=== PATIENT | male | born 1965 | race Caucasian/White ===

== ENCOUNTER 2022-06-26 09:45 | Emergency (ER) | payer OTHER ==
[2022-06-26] MEDS ORDERED: NA CHLORIDE 0.9% 250 ML ONE (10:23)
[2022-06-26] MEDS ORDERED: PANTOPRAZOLE 40 MG INJ ONE ×2 (10:23→10:25)
[2022-06-26] MEDS ORDERED: NA CHLORIDE 0.9% 500 ML ONE (10:24)
[2022-06-26] MEDS ORDERED: OCTREOTIDE ACETATE 500 MCG/ML ONE (10:24)
[2022-06-26] MEDS ORDERED: OCTREOTIDE ACETATE 100 MCG/ML ONE (10:24)
--- NOTE | 2022-06-26 10:46 | RAD REPORT ---
EXAM DESCRIPTION: US - Abdomen Exam Limited - 06/26/2022 10:41 am CLINICAL HISTORY: Abd pain COMPARISON: No comparisons FINDINGS: No gallstones, sludge or other abnormalities within the gallbladder lumen. There is no wal l thickening or pericholecystic fluid. No common duct stone or biliary tree dilatation identified. IMPRESSION: Normal gallbladder and biliary tree ultrasound.
[2022-06-26] MEDS ORDERED: NA CHLORIDE 0.9% 1,000 ML ONE (10:50)
[2022-06-26] MEDS ORDERED: ONDANSETRON 4 MG/2 ML VIAL ONE ×2 (10:50→15:14)
[2022-06-26 10:52] LABS: Absolute Lymphocytes (CBC) 1.8 K/uL (0.7-4.9); Hematocrit 30.8 % (39.6-49.0); Lymphocytes % 16.2 % (15.3-44.8); MCV 87.2 fL (80-100); MPV 8.4 fL (7.6-11.3); RBC Red Blood Cell Count 3.53 M/uL (4.33-5.43)
[2022-06-26 10:53] LABS: Protime INR 1.44
[2022-06-26 11:09] LABS: Albumin 2.7 g/dL (3.4-5.0); Bilirubin Total 1.9 mg/dL (0.2-1.0); Potassium 3.4 mmol/L (3.5-5.1); Protein, Total 6.4 g/dL (6.4-8.2)
--- NOTE | 2022-06-26 11:09 | ER ---
Nurse's Notes [facility] Name: Eitan Gonzalez Age: 57 yrs Sex: Male : 1965 Arrival Date: 06/26/2022 Time: 09:51 Bed 20 Private MD: Diagnosis: Hematemesis;Unspecified cirrhosis of liver;GI Bleed/ Gastrointestinal hemorrhage, unspecified Presentation: 06/26 10:05 Chief complaint: EMS states: toned out to PT home for ABD pain and Vomiting. reported tp1 PT has had N/V/D for the past 4 days. Reported PT was pale, diaphoretic, lightheaded and dizzy. During transport PT vomited blood. inserted 18 G R AC, administered 4 mg Zofran. BS 246. 10:05 Coronavirus screen: Vaccine status: Patient reports being unvaccinated. Ebola Screen: tp1 Patient negative for fever greater than or equal to 101.5 degrees Fahrenheit, and additional compatible Ebola Virus Disease symptoms Patient denies exposure to infectious person. Patient denies travel to an Ebola-affected area in the 21 days before illness onset. Initial Sepsis Screen: Does the patient meet any 2 criteria? HR > 90 bpm. No. Patient's initial sepsis screen is negative. Does the patient have a suspected source of infection? No. Patient's initial sepsis screen is negative. Risk Assessment: Do you want to hurt yourself or someone else? Patient reports no desire to harm self or others. Onset of symptoms was June 22, 2022. 10:05 Method Of Ar[facility]: [facility] tp1 10:05 Acuity: NALINI 3 tp1 Triage Assessment: 10:05 General: Appears in no apparent distress. uncomfortable, Behavior is cooperative, tp1 anxious. Pain: Complains of pain in right upper quadrant and left upper quadrant Pain does not radiate. Pain currently is 10 out of 10 on a pain scale. Quality of pain is described as dull, Pain began 2-3 days ago. Is continuous. EENT: No signs and/or symptoms were reported regarding the EENT system. Neuro: Level of Consciousness is awake, alert, obeys commands, Oriented to person, place, time, situation. Cardiovascular: Reports diaphoresis, lightheadedness, Capillary refill < 3 seconds in bilateral fingers. Respiratory: Airway is patent Respiratory effort is even, unlabored. GI: Abdomen is round non-distended, Abd is soft X 4 quads Abdomen is tender to palpation in right upper quadrant and left upper quadrant Reports diarrhea, nausea, vomiting, black stool. : No signs and/or symptoms were reported regarding the genitourinary system. Derm: Skin is clammy, diaphoretic, Skin is pale, Skin temperature is cool. Musculoskeletal: Circulation, motion, and sensation intact. Historical: - Allergies: 10:54 Trulicity; tp1 - Home Meds: 10:54 telmisartan-hydrochlorothiazide oral [Active]; omeprazole Oral [Active]; Metformin Oral tp1 [Active]; gabapentin oral [Active]; rosuvastatin oral [Active]; - PMHx: 10:54 Alcoholism; Cirrhosis of liver; enlarged spleen; Hypertensive disorder; Diabetes tp1 mellitus; - Immunization history:: Client reports having NOT received the Covid vaccine. - Social history:: Smoking status: Patient denies any tobacco usage or history of. - Family history:: not pertinent. - Hospitalizations: : No recent hospitalization is reported. Screenin:05 Abuse screen: Denies threats or abuse. Denies injuries from another. Nutritional tp1 screening: No deficits noted. Tuberculosis screening: No symptoms or risk factors identified. Fall Risk No fall in past 12 months (0 pts). No secondary diagnosis (0 pts). IV access (20 points). Ambulatory Aid- None/Bed Rest/Nurse Assist (0 pts). Gait- Normal/Bed Rest/Wheelchair (0 pts) Mental Status- Oriented to own ability (0 pts). Total Coffey Fall Scale indicates No Risk (0-24 pts). Assessment: 10:05 General: see triage notes. tp1 10:20 Reassessment: Had small black BM, provider notified. tp1 10:30 Reassessment: received VO from Dr. Murray to administer octerotide 50 mcg IVP X1. tp1 11:00 Reassessment: Patient appears in no apparent distress at this time. No changes from tp1 previously documented assessment. rates ABD pain 5/10. 12:00 Reassessment: Patient appears in no apparent distress at this time. No changes from tp1 previously documented assessment. Patient is alert, oriented x 3, equal unlabored respirations, skin warm/dry/pink. CO nausea and ABD pain rated 7/10. provider notified. 12:25 Reassessment: received VO from Dr. Murray for Phenergan 12.5 mg IVP X1. tp1 12:26 Reassessment: repositioned PT. tp1 12:56 Reassessment: Patient appears in no apparent distress at this time. Patient is alert, tp1 oriented x 3, equal unlabored respirations, skin warm/dry/pink. CO headache 7/10, lights dimmed, provider notified. 14:16 Reassessment: Patient appears in no apparent distress at this time. No changes from tp1 previously documented assessment. Patient is alert, oriented x 3, equal unlabored respirations, skin warm/dry/pink. states nausea is better, ABD pain 5/10. 14:55 Reassessment: attempted to give report to Chase ARCHER at [facility], stated will tp1 call back to get report. 14:57 Reassessment: Patient appears in no apparent distress at this time. Patient is alert, tp1 oriented x 3, equal unlabored respirations, skin warm/dry/pink. Stated ABD pain and nausea is coming back. 15:00 Reassessment: received VO from Dr. Murray for morphine 4 mg IVP X1 and zofran 4mg IVP X1.tp1 15:46 Reassessment: attempted to call report. tp1 16:01 Reassessment: report given to Tre ARCHER. tp1 16:04 Reassessment: Patient appears in no apparent distress at this time. Patient is alert, tp1 oriented x 3, equal unlabored respirations, skin warm/dry/pink. states nausea and ABD pain when away but is now coming back. provider notified. Vital Signs: 10:05 BP 98 / 87; Pulse 97; Resp 14; Temp 98.8; Pulse Ox 100% on R/A; Weight 113.4 kg; Height tp1 72 in. (182.88 cm); 11:30 BP 106 / 52; Pulse 92; Resp 15; Pulse Ox 100% on R/A; tp1 12:00 BP 135 / 80; Pulse 88; Resp 15; Pulse Ox 100% on R/A; tp1 12:30 BP 138 / 73; Pulse 91; Resp 16; Pulse Ox 100% on R/A; tp1 13:00 BP 149 / 90; Pulse 94; Resp 15; Pulse Ox 96% on R/A; tp1 14:00 BP 122 / 83; Pulse 102; Resp 16; Pulse Ox 100% on R/A; tp1 15:00 BP 133 / 76; Pulse 99; Resp 16; Pulse Ox 100% on R/A; tp1 16:30 BP 133 / 88; Pulse 95; Resp 16; Pulse Ox 100% on R/A; tp1 10:05 Body Mass Index 33.91 (113.40 kg, 182.88 cm) tp1 ED Course: 09:51 Patient arrived in ED. em1 09:51 Sabino Murray MD is Attending Physician. rn 10:00 Lynn Mcleod RN is Primary Nurse. tp1 10:05 Maintain EMS IV. Dressing intact. Good blood return noted. Site clean \T\ dry. Gauge \T\ tp 1 site: 18 R AC. 10:05 Arm band placed on. tp1 10:05 Patient has correct armband on for positive identification. Placed in gown. Bed in low tp1 position. Call light in reach. Side rails up X 1. Adult w/ patient. 10:05 Client placed on continuous cardiac and pulse oximetry monitoring. NIBP monitoring tp1 applied. 10:45 Inserted saline lock: 20 gauge in left wrist, using aseptic technique. ,using aseptic tp1 technique. inserted by Neena ARCHER. 11:08 Tao Woods is Hospitalizing Provider. rn 11:45 Lewis Figueroa MD is Hospitalizing Provider. rn 12:17 Triage completed. tp1 14:45 No provider procedures requiring assistance completed. tp1 16:37 Patient transferred, IV remains in place. tp1 Administered Medications: 10:36 Drug: ProTONIX (pantoprazole) 40 mg Route: IVP; Site: right antecubital; tp1 14:44 Follow up: Response: Pain is decreased tp1 10:36 Drug: Octreotide 50 mcg Route: IV; Rate: per protocol; Site: right antecubital; tp1 11:15 Follow up: Response: No adverse reaction tp1 14:44 Follow up: Response: No adverse reaction tp1 16:38 Follow up: IV Status: Infusion continued upon transfer tp1 10:38 Drug: ProTONIX (pantoprazole) 8 mg/hr Route: IV; Rate: 25 ml/hr; Site: right tp1 antecubital; 16:38 Follow up: IV Status: Infusion continued upon transfer tp1 10:38 Drug: Octreotide Infusion (50 mcg/hr) - (Octreotide 500 mcg, NS 0.9% 500 ml) Route: IV; tp1 Rate: 50 ml/hr; Site: right antecubital; 16:39 Follow up: IV Status: Infusion continued upon transfer tp1 10:46 Drug: NS 0.9% 1000 ml Route: IV; Rate: 1 bolus; Site: left wrist; tp1 12:27 Follow up: IV Status: Completed infusion; IV Intake: 1000ml tp1 10:46 Drug: Zofran (Ondansetron) 4 mg Route: IVP; Site: left wrist; tp1 11:15 Follow up: Response: No change in condition tp1 11:30 Not Given (VO changed from physiciann): Octreotide 50 mcg Sub-Q once tp1 12:56 Drug: Phenergan (promethazine) 12.5 mg Route: IVP; Site: left wrist; tp1 14:43 Follow up: Response: Nausea is decreased tp1 15:06 Drug: Zofran (Ondansetron) 4 mg Route: IVP; Site: left wrist; tp1 15:40 Follow up: Response: Nausea is decreased tp1 15:09 Drug: morphine 4 mg Route: IVP; Infused Over: 4 mins; Site: left wrist; tp1 15:40 Follow up: Response: Pain is decreased tp1 Medication: 14:45 VIS not applicable for this client. tp1 Intake: 12:27 IV: 1000ml; Total: 1000ml. tp1 Outcome: 11:08 Decision to Hospitalize by Provider. rn 13:13 ER care complete, transfer ordered by . rn 16:36 Transferred by ground EMS to [facility]. tp1 16:36 Condition: good 16:36 Discharge instructions given to patient, Instructed on the need for transfer, Demonstrated understanding of instructions. 16:38 Patient left the ED. tp1 Signatures: Sabino Murray MD MD rn Martinez, Eric 1 Lynn Mcleod RN RN tp1 Corrections: (The following items were deleted from the chart) 12:24 11:00 Reassessment: Patient appears in no apparent distress at this time. No changes tp1 from previously documented assessment. Patient is alert, oriented x 3, equal unlabored respirations, skin warm/dry/pink. rates ABD pain 02/27 tp1 13:29 12:56 Reassessment: CO headache 04/29, lights dimmed, provider notified. tp1 tp1
--- NOTE | 2022-06-26 11:10 | EDPHYS ---
Physician Documentation [facility] Name: Eitan Gonzalez Age: 57 yrs Sex: Male : 1965 Arrival Date: 06/26/2022 Time: 09:51 Bed 20 Private MD: ED Physician Sabino Murray HPI: 06/26 10:39 This 57 yrs old Male presents to ER via Unassigned with complaints of abdominal pain, rn hematemesis. 10:39 The patient presents to the emergency department vomiting blood, a small amount, bright rn red, 2 times since symptom onset. Onset: The symptoms/episode began/occurred 2 day(s) ago. Abdominal pain: located in the epigastric area. Modifying factors: The symptoms are alleviated by nothing, the symptoms are aggravated by nothing. Severity of symptoms: At their worst the symptoms were moderate in the emergency department the symptoms are unchanged. The patient has experienced a previous episode. The patient has not recently seen a physician. Pt reports upper abd pain, threw up blood twice today, began 2 days ago. Seen at [facility] a month ago and told had "pancreas inflammation and gallstones". Reports felt better, but now came back. + previous daily drinker. Told has cirrhosis in past. . Historical: - Allergies: 10:54 Trulicity; tp1 - Home Meds: 10:54 telmisartan-hydrochlorothiazide oral [Active]; omeprazole Oral [Active]; Metformin Oral tp1 [Active]; gabapentin oral [Active]; rosuvastatin oral [Active]; - PMHx: 10:54 Alcoholism; Cirrhosis of liver; enlarged spleen; Hypertensive disorder; Diabetes tp1 mellitus; - Immunization history:: Client reports having NOT received the Covid vaccine. - Social history:: Smoking status: Patient denies any tobacco usage or history of. - Family history:: not pertinent. - Hospitalizations: : No recent hospitalization is reported. ROS: 10:39 Constitutional: Negative for fever, chills, and weight loss, Eyes: Negative for injury, rn pain, redness, and discharge, Neck: Negative for injury, pain, and swelling, Cardiovascular: Negative for chest pain, palpitations, and edema, Respiratory: Negative for shortness of breath, cough, wheezing, and pleuritic chest pain, Abdomen/GI: + upper abd pain and hematemesis Back: Negative for injury and pain, MS/Extremity: Negative for injury and deformity, Skin: Negative for injury, rash, and discoloration, Neuro: Negative for headache, numbness, tingling, and seizure. Exam: 10:39 Constitutional: This is a well developed, well nourished patient who is awake, alert, rn appears uncomfortable Head/Face: Normocephalic, atraumatic. ENT: dry MM, dry blood at mustache Cardiovascular: Tachycardic, regular Respiratory: No increased work of breathing, no retractions or nasal flaring. Abdomen/GI: soft, + epigastric tenderness, no rebound Skin: Warm, dry MS/ Extremity: Pulses equal, no cyanosis. Neuro: Awake and alert, GCS 15 Vital Signs: 10:05 BP 98 / 87; Pulse 97; Resp 14; Temp 98.8; Pulse Ox 100% on R/A; Weight 113.4 kg; Height tp1 72 in. (182.88 cm); 11:30 BP 106 / 52; Pulse 92; Resp 15; Pulse Ox 100% on R/A; tp1 12:00 BP 135 / 80; Pulse 88; Resp 15; Pulse Ox 100% on R/A; tp1 12:30 BP 138 / 73; Pulse 91; Resp 16; Pulse Ox 100% on R/A; tp1 13:00 BP 149 / 90; Pulse 94; Resp 15; Pulse Ox 96% on R/A; tp1 14:00 BP 122 / 83; Pulse 102; Resp 16; Pulse Ox 100% on R/A; tp1 15:00 BP 133 / 76; Pulse 99; Resp 16; Pulse Ox 100% on R/A; tp1 16:30 BP 133 / 88; Pulse 95; Resp 16; Pulse Ox 100% on R/A; tp1 10:05 Body Mass Index 33.91 (113.40 kg, 182.88 cm) tp1 MDM: 09:51 Patient medically screened. rn 11:07 Differential diagnosis: gastritis, varices, gastric ulcer. Data reviewed: vital signs, rn nurses notes, lab test result(s), radiologic studies, ultrasound, and as a result, I will admit patient. Counseling: I had a detailed discussion with the patient and/or guardian regarding: the historical points, exam findings, and any diagnostic results supporting the discharge/admit diagnosis, lab results, radiology results, the need for further work-up and treatment in the hospital. Response to treatment: the patient's symptoms have mildly improved after treatment, and as a result, I will admit patient. Admission orders: after a detailed discussion of the patient's condition and case, the admit orders are written by me. 13:11 ED course: COnsulted with Dr. Muñoz, requests transfer for acute variceal bleeding. rn Initiated transfer. . 14:20 ED course: Consulted with GI at [facility], would like to upgrade to ICU level care. rn Also ask for repeat hemoglobin. . 06/26 09:52 Order name: CBC with Diff; Complete Time: 11:07 rn 06/26 09:52 Order name: CMP; Complete Time: 13:08 rn 06/26 09:52 Order name: Lipase; Complete Time: 13:08 rn 06/26 09:52 Order name: PT-INR; Complete Time: 11:07 rn 06/26 09:52 Order name: Type And Screen; Complete Time: 13:08 rn 06/26 09:52 Order name: SARS RAPID; Complete Time: 13:08 rn 06/26 09:52 Order name: Abdomen Limited US rn 06/26 09:52 Order name: CT Abd/Pelvis - IV Contrast Only rn 06/26 09:53 Order name: Troponin High Sensitivity; Complete Time: 13:08 rn 06/26 11:43 Order name: ABO/RH no charge; Complete Time: 13:08 EDTN 06/26 14:27 Order name: SARS-COV-2 RT PCR (Document "Date of Onset" if Symptomatic) 06/26 14:58 Order name: Hemoglobin; Complete Time: 15:22 EDTN 06/26 15:37 Order name: SARS-COV-2 RT PCR EDTN 06/26 09:52 Order name: IV Saline Lock; Complete Time: 11:28 rn 06/26 09:52 Order name: Labs collected and sent; Complete Time: 11:28 rn 06/26 09:53 Order name: EKG - Nurse/Tech; Complete Time: 11:49 rn 06/26 09:53 Order name: EKG; Complete Time: 09:54 rn 06/26 10:46 Order name: US; Complete Time: 11:07 EDTN 06/26 12:01 Order name: CT; Complete Time: 13:08 EDMS 06/26 09:53 Order name: Cardiac monitoring; Complete Time: 11:28 rn 06/26 09:53 Order name: O2 Sat Monitoring; Complete Time: 11:28 rn Administered Medications: 10:36 Drug: ProTONIX (pantoprazole) 40 mg Route: IVP; Site: right antecubital; tp1 14:44 Follow up: Response: Pain is decreased tp1 10:36 Drug: Octreotide 50 mcg Route: IV; Rate: per protocol; Site: right antecubital; tp1 11:15 Follow up: Response: No adverse reaction tp1 14:44 Follow up: Response: No adverse reaction tp1 16:38 Follow up: IV Status: Infusion continued upon transfer tp1 10:38 Drug: ProTONIX (pantoprazole) 8 mg/hr Route: IV; Rate: 25 ml/hr; Site: right tp1 antecubital; 16:38 Follow up: IV Status: Infusion continued upon transfer tp1 10:38 Drug: Octreotide Infusion (50 mcg/hr) - (Octreotide 500 mcg, NS 0.9% 500 ml) Route: IV; tp1 Rate: 50 ml/hr; Site: right antecubital; 16:39 Follow up: IV Status: Infusion continued upon transfer tp1 10:46 Drug: NS 0.9% 1000 ml Route: IV; Rate: 1 bolus; Site: left wrist; tp1 12:27 Follow up: IV Status: Completed infusion; IV Intake: 1000ml tp1 10:46 Drug: Zofran (Ondansetron) 4 mg Route: IVP; Site: left wrist; tp1 11:15 Follow up: Response: No change in condition tp1 11:30 Not Given (VO changed from physiciann): Octreotide 50 mcg Sub-Q once tp1 12:56 Drug: Phenergan (promethazine) 12.5 mg Route: IVP; Site: left wrist; tp1 14:43 Follow up: Response: Nausea is decreased tp1 15:06 Drug: Zofran (Ondansetron) 4 mg Route: IVP; Site: left wrist; tp1 15:40 Follow up: Response: Nausea is decreased tp1 15:09 Drug: morphine 4 mg Route: IVP; Infused Over: 4 mins; Site: left wrist; tp1 15:40 Follow up: Response: Pain is decreased tp1 Disposition Summary: 06/26/22 13:13 Transfer Ordered Transfer Location: [facility] rn Reason: Higher level of care rn Condition: Stable(06/26/22 13:13) rn Problem: new(06/26/22 13:13) rn Symptoms: have improved(06/26/22 13:13) rn Accepting Physician: (06/26/22 16:38) tp1 Diagnosis - Hematemesis(06/26/22 13:13) rn - Unspecified cirrhosis of liver(06/26/22 13:13) rn - GI Bleed/ Gastrointestinal hemorrhage, unspecified rn Forms: - Medication Reconciliation Form rn - SBAR form rn Signatures: Dispatcher [employer] EDMS Sabino Murray MD MD rn Parker, Tiffany, RN RN tp1 Corrections: (The following items were deleted from the chart) 11:45 11:08 Tao Woods rn rn 13:13 11:08 Inpatient Admission rn rn 13:13 11:08 Telemetry/MedSurg (Inpatient) rn rn 13:13 11:08 Stable rn rn 13:13 11:08 new rn rn 13:13 11:08 have improved rn rn 13:13 11:08 Standard rn rn 13:13 11:08 rn rn 13:13 11:08 Hematemesis rn rn 13:13 11:08 Unspecified cirrhosis of liver rn rn 13:13 11:45 Lewis Figueroa rn rn 16:38 13:13 rn tp1
[2022-06-26 12:00] LABS: SARS-CoV-2 Antigen Rapid Res Negative (Negative)
--- NOTE | 2022-06-26 12:00 | RAD REPORT ---
EXAM DESCRIPTION: CT - Abdomen Pelvis W Contrast - 06/26/2022 11:29 am CLINICAL HISTORY: abd pain, cirrhosis COMPARISON: No comparisons TECHNIQUE: Biphasic, helical CT imaging of the abdomen and pelvis was performed following 100 ml non -ionic IV contrast. No oral contrast administered. All CT scans are performed using dose optimization technique as appropriate and may include automated exposure control or mA/KV adjustment according to patient size. FINDINGS: No suspicious findings in the lung bases. No focal liver parenchymal lesions seen. No portal vein abnormality. Provided history indicates seros a is. There is no gross nodularity of the liver capsule. Splenomegaly to 16 cm noted. No focal spleni c lesion. No pancreatic or peripancreatic acute finding. Gallbladder and biliary tree are also withou t suspicious finding. Symmetric renal function is seen with no hydronephrosis or suspicious renal mass. No pyelonephritis o r acute parenchymal process. A 2.4 centimeter cyst is present lateral mid right kidney. No adrenal ab normalities. No acute bladder finding. Prostate gland and seminal vesicles within normal range. Stomach is distended but not dilated. Content in the gastric lumen is suspicious for hemorrhage. Ther e is hyperdensity in the distal esophagus which may be active bleeding. No contrast was administered for the examination. Distal esophagus does not appear thickened or edematous. No large varices identi fiable. A mass or focal area of wall thickening in the stomach is not identified. The content somewha t limits gastric wall assessment. No small bowel acute finding seen. Scattered diverticulosis of the colon is seen. The appendix is nor mal. No acute colon process seen. No intraperitoneal free air or free fluid. No mass or bulky lymph adenopathy. Small mesenteric lymph nodes are present. Small fat only inguinal hernias are present. No suspicious bony findings. IMPRESSION: Large amount of hemorrhagic material is suspected within the gastric lumen and there is suspected to be active bleeding into the bowel lumen near the GE junction. No focal liver lesion identified. No portal vein abnormality. No ascites or dilated varices seen. Splenomegaly to 16 cm.
[2022-06-26] MEDS ORDERED: PROMETHAZINE INJ 25 MG/ML AMP ONE (12:58)
[2022-06-26] MEDS ORDERED: MORPHINE 4 MG/ML SYR ONE (15:14)
[2022-06-26 17:04] VITALS: TEMP 98.8
[2022-06-26 17:17] VITALS: O2SAT 100
[2022-06-26 17:21] VITALS: BP 133/88
--- NOTE | 2022-06-27 12:50 | EKG ---
Test Date: 2022-06-26 Test Time: 11:38:13 Car Mechanic: TP MEASUREMENT RESULTS: Intervals: Rate: 87 MI: 138 QRSD: 82 QT: 410 QTc: 493 [place]: P: 49 MI: 138 QRS: 30 T: -8 INTERPRETIVE STATEMENTS: Normal sinus rhythm Prolonged QT Abnormal ECG No previous ECG available for comparison Electronically Signed On 06-27-22 12:49:25 CDT by Cy Ramirez
== END 2022-06-26 16:38 | disposition short-term general hospital (02) ==
LOC: ER 09:45
DX: K92.0 Hematemesis (principal); K74.60 Unspecified cirrhosis of liver; K92.2 Gastrointestinal hemorrhage, unspecified; F10.20 Alcohol dependence, uncomplicated; I10 Essential (primary) hypertension; Z20.822 Contact with and (suspected) exposure to COVID-19; Z88.8 Allergy status to other drugs, medicaments and biological substances
CPT/HCPCS: 93005; 85025; 36415; 86900; 86850; 85610; 86901; 85018; 84484; 83690; 80053; 74177; 76705; 99285; 87811; U0003; Q9967; J2550; J2354 ×2; C9113 ×2; J7050; J7040; J7030; J2405 ×2

== ENCOUNTER 2022-07-13 16:47 | Emergency (ER) | payer OTHER ==
[2022-07-13] MEDS ORDERED: ONDANSETRON 4 MG/2 ML VIAL ONE (17:12)
[2022-07-13] MEDS ORDERED: METOCLOPRAMIDE 10 MG/2mL INJ ONE (17:12)
[2022-07-13] MEDS ORDERED: NA CHLORIDE 0.9% 1,000 ML ONE (17:13)
[2022-07-13] MEDS ORDERED: FAMOTIDINE 20 MG/2 ML VIAL IV ONE (17:13)
[2022-07-13] MEDS ORDERED: MORPHINE 4 MG/ML SYR ONE ×2 (17:20→20:25)
[2022-07-13 17:59] LABS: Absolute Lymphocytes (CBC) 0.8 K/uL (0.7-4.9); Hematocrit 36.2 % (39.6-49.0); Lymphocytes % 13.1 % (15.3-44.8); MCV 87.2 fL (80-100); MPV 8.6 fL (7.6-11.3); RBC Red Blood Cell Count 4.15 M/uL (4.33-5.43)
[2022-07-13 18:14] LABS: Albumin 3.7 g/dL (3.4-5.0); Bilirubin Total 0.9 mg/dL (0.2-1.0); Protein, Total 8.7 g/dL (6.4-8.2)
[2022-07-13 18:15] LABS: Potassium 5.1 mmol/L (3.5-5.1)
--- NOTE | 2022-07-13 18:41 | RAD REPORT ---
EXAM DESCRIPTION: CTAbdomen Pelvis W Contrast - 07/13/2022 6:31 pm CLINICAL HISTORY: Abdominal pain. abdominal pain COMPARISON: Abdomen Pelvis W Contrast dated 06/26/2022 TECHNIQUE: Biphasic CT imaging of the abdomen and pelvis was performed with 100 ml non-ionic IV cont rast. All CT scans are performed using dose optimization technique as appropriate and may include automated exposure control or mA/KV adjustment according to patient size. FINDINGS: The lung bases are clear.Cholelithiasis. Nodular liver contour seen likely mild cirrhosis. Splenomegaly is present. The pancreas, adrenal glan ds kidneys show no concerning finding. Small benign right renal cyst. No bowel obstruction, free air, free fluid or abscess. The appendix is normal. Mild aortoiliac ather osclerosis. No evidence of significant lymphadenopathy. Small fat containing left inguinal hernia. No suspicious bony findings. IMPRESSION: No acute intra-abdominal or pelvic finding. Splenomegaly with mild liver cirrhosis. Cholelithiasis.
[2022-07-13] MEDS ORDERED: PROMETHAZINE INJ 25 MG/ML AMP ONE ×2 (18:52→20:18)
[2022-07-13] MEDS ORDERED: KETOROLAC 30 MG/ML INJ ONE (20:05)
[2022-07-13] MEDS ORDERED: ONDANSETRON 4 MG (ODT) TAB ONE (20:18)
--- NOTE | 2022-07-13 22:07 | EDPHYS ---
Physician Documentation [facility] Name: Eitan Gonzalez Age: 57 yrs Sex: Male : 1965 Arrival Date: 07/13/2022 Time: 16:49 Bed 25 Private MD: ED Physician Joshua Tracy HPI: 07/13 16:54 This 57 yrs old Male presents to ER via Unassigned with complaints of abd pain, rn nausea/vomiting. 16:54 The patient presents with abdominal pain in the epigastric area. rn 16:54 Onset: The symptoms/episode began/occurred yesterday. The symptoms do not radiate. rn Associated signs and symptoms: Pertinent positives: nausea and vomiting, Pertinent negatives: blood in stools, chest pain, shortness of breath, vomiting blood. The symptoms are described as achy. Modifying factors: The symptoms are alleviated by nothing, the symptoms are aggravated by touching the area. Severity of pain: At its worst the pain was moderate in the emergency department the pain is unchanged. The patient has experienced similar episodes in the past. The patient has been recently seen by a physician:. Pt reports epigastric abd pain and nausea/vomiting since last night. Reports somewhat recent admission for hematemesis, got 3 bands at [facility] in [place]. Denies hematemesis now. . Historical: - Allergies: 16:54 Trulicity; kr3 - PMHx: 16:54 Alcoholism; cirrhosis of liver; diabetes mellitus; enlarged spleen; Hypertensive kr3 disorder; - Immunization history:: Adult Immunizations not up to date. - Social history:: Smoking status: Patient/guardian denies using tobacco, the patient reports quitting approximately 5 years ago. - Family history:: not pertinent. - Hospitalizations: : The patient was recently seen at [facility]. ROS: 16:54 Constitutional: Negative for fever, chills, and weight loss, Eyes: Negative for injury, rn pain, redness, and discharge, Cardiovascular: Negative for chest pain, palpitations, and edema, Respiratory: Negative for shortness of breath, cough, wheezing, and pleuritic chest pain, Abdomen/GI: + nausea/vomiting/epigastric abd pain Back: Negative for injury and pain, MS/Extremity: Negative for injury and deformity, Skin: Negative for injury, rash, and discoloration, Neuro: Negative for headache, weakness, numbness, tingling, and seizure. 16:54 Constitutional: Negative for Exam: 17:03 Constitutional: This is a well developed, well nourished patient who is awake, alert, rn holding emesis bag, empty, appears uncomfortable. Head/Face: Normocephalic, atraumatic. Eyes: Periorbital areas with no swelling, redness, or edema. Cardiovascular: Regular rate and rhythm. No pulse deficits. Respiratory: No increased work of breathing, no retractions or nasal flaring. Abdomen/GI: Soft, + epigastric tenderness. No distension or rebound Skin: Warm, dry MS/ Extremity: Pulses equal, no cyanosis Neuro: Awake and alert, GCS 15 Vital Signs: 16:50 BP 171 / 82; Pulse 94; Resp 18; Temp 98.4; Pulse Ox 100% on R/A; Weight 106.59 kg; kr3 Height 6 ft. 0 in. (182.88 cm); Pain 9/10; 18:08 BP 171 / 90; Pulse 91; Resp 20; Pulse Ox 100% on R/A; kr3 20:19 BP 173 / 90; Pulse 100; Resp 19; Pulse Ox 100% on R/A; ke1 20:35 Pain 2/10; ke1 22:20 BP 156 / 89; Pulse 98; Resp 17; Temp 98.2; Pulse Ox 100% on R/A; Pain 2/10; ke1 16:50 Body Mass Index 31.87 (106.59 kg, 182.88 cm) kr3 MDM: 16:49 Patient medically screened. rn 18:55 Transition of care: After a detail discussion of the patient's case, care is rn transferred to Joshua Tracy DO. 22:13 Data reviewed: vital signs, nurses notes, lab test result(s), radiologic studies, CT ms3 scan, and as a result, I will discharge patient. ED course: Patient improved at this time without emesis. Patient given Rx for Reglan. Patient to follow up with his GI in 2-3 days. All questions answered. Return precautions given to include worsening symptoms, or any other concerns.. 07/13 16:51 Order name: CBC with Diff rn 07/13 16:51 Order name: CMP rn 07/13 16:51 Order name: Lipase rn 07/13 18:09 Order name: CBC with Automated Diff EDMS 07/13 18:15 Order name: Comprehensive Metabolic Panel EDMS 07/13 18:15 Order name: Lipase EDMS 07/13 16:51 Order name: CT Abd/Pelvis - IV Contrast Only; Complete Time: 18:53 rn 07/13 18:18 Order name: Glucose, Ancillary Testing; Complete Time: 18:29 EDMS 07/13 16:51 Order name: IV Saline Lock; Complete Time: 17:53 rn 07/13 16:51 Order name: Labs collected and sent; Complete Time: 17:53 rn 07/13 16:51 Order name: Glucose Level; Complete Time: 18:06 rn Administered Medications: 17:40 Drug: Reglan (metoCLOPramide) 10 mg Route: IVP; Site: left forearm; kr3 19:00 Follow up: Response: Nausea is decreased ke1 17:40 Drug: morphine 4 mg Route: IVP; Infused Over: 4 mins; Site: right forearm; kr3 19:00 Follow up: Response: Pain is decreased ke1 17:45 Drug: Zofran (Ondansetron) 4 mg Route: IVP; Site: left forearm; kr3 17:50 Drug: Pepcid (famotidine) 20 mg Route: IVP; Site: left forearm; kr3 17:52 Drug: NS 0.9% 1000 ml Route: IV; Rate: 1 bolus; Site: left forearm; kr3 19:10 Follow up: IV Status: Completed infusion ke1 18:56 Drug: Phenergan (promethazine) 12.5 mg Route: IVP; Site: left antecubital; kr3 19:20 Follow up: Response: Nausea is decreased ke1 18:56 Drug: NS 0.9% 500 ml Route: IV; Rate: bolus; Site: left forearm; kr3 19:20 Follow up: IV Status: Completed infusion ke1 19:57 Not Given (Physician Discretion): Ketorolac 10 mg IVP once ms3 20:12 Drug: Ondansetron 4 mg Route: PO; ke1 20:20 Follow up: Response: Nausea is decreased ke1 20:13 Drug: Phenergan (promethazine) 12.5 mg Route: IM; Site: left deltoid; ke1 20:20 Follow up: Response: Nausea is decreased ke1 20:19 Drug: morphine 4 mg Route: IVP; Infused Over: 4 mins; Site: left forearm; ke1 20:35 Follow up: Pain 2/10 Adult; Response: Pain is decreased ke1 Disposition Summary: 07/13/22 22:07 Discharge Ordered Location: Home ms3 Condition: Stable ms3 Diagnosis - Gastroparesis ms3 - Abdominal pain, Generalized ms3 - Nausea with vomiting, unspecified ms3 Followup: ms3 - With: Private Physician - When: 2 - 3 days - Reason: Recheck today's complaints Discharge Instructions: - Discharge Summary Sheet ms3 - Abdominal Pain, Adult ms3 - Gastroparesis ms3 Forms: - Medication Reconciliation Form ms3 - Thank You Letter ms3 - Antibiotic Education ms3 - Prescription Opioid Use ms3 Prescriptions: - Reglan 10 mg Oral Tablet - take 1 tablet by ORAL route every 6 hours take 30 minutes before meals and at ms3 bedtime; 20 tablet; Refills: 0, Product Selection Permitted Signatures: Dispatcher [employer] EDMS Sabino Murray MD MD rn Sims, Marcus, DO DO ms3 Jose M Matthews RN SUZI ke1 Tete lLamas RN RN kr3 Suni Ibarra, PA-C PA-C sb4 Corrections: (The following items were deleted from the chart) 17:04 16:54 Constitutional: Negative for fever, chills, and weight loss, Eyes: Negative for rn injury, pain, redness, and discharge, Cardiovascular: Negative for chest pain, palpitations, and edema, Respiratory: Negative for shortness of breath, cough, wheezing, and pleuritic chest pain, Abdomen/GI: + nausea/vomiting/epigastric abd pain Back: Negative for injury and pain, MS/Extremity: Negative for injury and deformity, Skin: Negative for injury, rash, and discoloration, Neuro: Negative for headache, weakness, numbness, tingling, and seizure, rn 20:09 19:52 Head Brain Wo Cont+CT.RAD.BRZ ordered. EDMS EDMS
--- NOTE | 2022-07-13 22:07 | ER ---
Nurse's Notes [facility] Name: Eitan Gonzalez Age: 57 yrs Sex: Male : 1965 Arrival Date: 07/13/2022 Time: 16:49 Bed 25 Private MD: Diagnosis: Gastroparesis;Abdominal pain, Generalized;Nausea with vomiting, unspecified Presentation: 07/13 16:50 Chief complaint: Patient states: abdominal pain since last night mar with N/V. kr3 Coronavirus screen: Vaccine status: Patient reports being unvaccinated. Client denies travel out of the [place] in the last 14 days. Ebola Screen: Patient denies travel to an Ebola-affected area in the 21 days before illness onset. Initial Sepsis Screen: Does the patient meet any 2 criteria? No. Patient's initial sepsis screen is negative. Does the patient have a suspected source of infection? Yes: Acute abdominal pain. Risk Assessment: Do you want to hurt yourself or someone else? Patient reports no desire to harm self or others. Onset of symptoms was July 12, 2022. 16:50 Method Of Arrival: EMS: [facility] kr3 16:50 Acuity: NALINI 3 kr3 Triage Assessment: 16:54 General: Appears distressed, uncomfortable, ill, Behavior is calm, cooperative, kr3 appropriate for age. Pain: Complains of pain in epigastric area. Historical: - Allergies: 16:54 Trulicity; kr3 - PMHx: 16:54 Alcoholism; cirrhosis of liver; diabetes mellitus; enlarged spleen; Hypertensive kr3 disorder; - Immunization history:: Adult Immunizations not up to date. - Social history:: Smoking status: Patient/guardian denies using tobacco, the patient reports quitting approximately 5 years ago. - Family history:: not pertinent. - Hospitalizations: : The patient was recently seen at [facility]. Screenin:57 Abuse screen: Denies threats or abuse. Nutritional screening: No deficits noted. ll1 Tuberculosis screening: No symptoms or risk factors identified. Fall Risk IV access (20 points). Gait- Weak (10 pts.). Total Coffey Fall Scale indicates Low Risk Score (25-44 pts). Fall prevention measures have been instituted. Side Rails Up X 2 Placed close to Nursing Station Frequent Obs/Assesments occuring Family Present and informed to notify staff if they need to leave bedside As available Patient and Family Educated on Fall Prevention Program and strategies. Assessment: 17:45 Reassessment: No changes from previously documented assessment. Patient and/or family ll1 updated on plan of care and expected duration. Pain level reassessed. 19:47 Pain: Complains of pain in abdomen LUQ Pain does not radiate. Pain currently is 8 out ke1 of 10 on a pain scale. 19:48 GI: Reports nausea. ke1 19:59 Reassessment: Ketorolac cancelled, medication wasted. ke1 20:54 Reassessment: Patient states feeling better. Patient states symptoms have improved. ke1 22:26 Reassessment: Patient states feeling better. Patient states symptoms have improved. ke1 Vital Signs: 16:50 BP 171 / 82; Pulse 94; Resp 18; Temp 98.4; Pulse Ox 100% on R/A; Weight 106.59 kg; kr3 Height 6 ft. 0 in. (182.88 cm); Pain 9/10; 18:08 BP 171 / 90; Pulse 91; Resp 20; Pulse Ox 100% on R/A; kr3 20:19 BP 173 / 90; Pulse 100; Resp 19; Pulse Ox 100% on R/A; ke1 20:35 Pain 2/10; ke1 22:20 BP 156 / 89; Pulse 98; Resp 17; Temp 98.2; Pulse Ox 100% on R/A; Pain 2/10; ke1 16:50 Body Mass Index 31.87 (106.59 kg, 182.88 cm) kr3 ED Course: 16:45 Arm band placed on Patient placed in an exam room, on a stretcher. ll1 16:49 Patient arrived in ED. rn 16:49 Sabino Murray MD is Attending Physician. rn 16:50 Tete Llamas, SUZI is Primary Nurse. kr3 16:54 Triage completed. kr3 17:57 Patient has correct armband on for positive identification. Bed in low position. Call ll1 light in reach. Side rails up X 1. Client placed on continuous cardiac and pulse oximetry monitoring. NIBP monitoring applied. community development aide on. 18:35 CT Abd/Pelvis - IV Contrast Only In Process Unspecified. EDMS 19:00 Maintain EMS IV. Gauge \T\ site: L FA 18 G. ke1 19:40 Primary Nurse role handed off by Tete Llamas RN mw2 19:47 Jose M Matthews RN is Primary Nurse. ke1 22:06 Attending Physician role handed off by Sabino Murray MD ms3 22:06 Joshua Tracy DO is Attending Physician. ms3 22:06 Joshua Tracy DO is Attending Physician. ms3 22:20 No provider procedures requiring assistance completed. ke1 22:26 IV discontinued. ke1 Administered Medications: 17:40 Drug: Reglan (metoCLOPramide) 10 mg Route: IVP; Site: left forearm; kr3 19:00 Follow up: Response: Nausea is decreased ke1 17:40 Drug: morphine 4 mg Route: IVP; Infused Over: 4 mins; Site: right forearm; kr3 19:00 Follow up: Response: Pain is decreased ke1 17:45 Drug: Zofran (Ondansetron) 4 mg Route: IVP; Site: left forearm; kr3 17:50 Drug: Pepcid (famotidine) 20 mg Route: IVP; Site: left forearm; kr3 17:52 Drug: NS 0.9% 1000 ml Route: IV; Rate: 1 bolus; Site: left forearm; kr3 19:10 Follow up: IV Status: Completed infusion ke1 18:56 Drug: Phenergan (promethazine) 12.5 mg Route: IVP; Site: left antecubital; kr3 19:20 Follow up: Response: Nausea is decreased ke1 18:56 Drug: NS 0.9% 500 ml Route: IV; Rate: bolus; Site: left forearm; kr3 19:20 Follow up: IV Status: Completed infusion ke1 19:57 Not Given (Physician Discretion): Ketorolac 10 mg IVP once ms3 20:12 Drug: Ondansetron 4 mg Route: PO; ke1 20:20 Follow up: Response: Nausea is decreased ke1 20:13 Drug: Phenergan (promethazine) 12.5 mg Route: IM; Site: left deltoid; ke1 20:20 Follow up: Response: Nausea is decreased ke1 20:19 Drug: morphine 4 mg Route: IVP; Infused Over: 4 mins; Site: left forearm; ke1 20:35 Follow up: Pain 2/10 Adult; Response: Pain is decreased ke1 Medication: 17:57 VIS not applicable for this client. ll1 Outcome: 22:07 Discharge ordered by . ms3 22:25 Discharged to home ambulatory. ke1 22:25 Condition: good 22:25 Discharge instructions given to patient. 22:27 Patient left the ED. ke1 Signatures: Dispatcher [employer] EDMS Sabino Murray MD MD rn [place], MyKena mw2 Madi Rodríguez RN RN ll1 Joshua Tracy DO DO ms3 Jose M Matthews, RN RN ke1 Tete Llamas RN RN kr3
[2022-07-15 13:48] VITALS: O2SAT 100
[2022-07-15 13:57] VITALS: BP 156/89; TEMP 98.2
== END 2022-07-13 22:27 | disposition home or self-care (01) ==
LOC: ER 16:47
DX: R10.84 Generalized abdominal pain (principal); K31.84 Gastroparesis; R11.2 Nausea with vomiting, unspecified; F10.20 Alcohol dependence, uncomplicated; I10 Essential (primary) hypertension; Z88.8 Allergy status to other drugs, medicaments and biological substances
CPT/HCPCS: 85025; 36415; 82947; 83690; 80053; 74177; 96372; 99284; Q9967; J2765; J2550 ×2; Q0162; J7030; J2405

== ENCOUNTER 2022-07-21 16:47 | Emergency (ER) | payer OTHER ==
--- OUTSIDE RECORDS SUMMARY | 2022-07-21 16:53 | XMS REPORT | Continuity of Care Document ---
:1965 Author Organization [facility] t Address [address] [place] [address] Dr. Enriquez [address] [place] [address] Care Team Providers Name Role Phone BAR HO Primary Care Physician Unavailable KAREN AWAD Attending Clinician Unavailable BRIEN KIMBALL Attending Clinician Unavailable JORGE A LYONS Attending Clinician Unavailable JORGE A LYONS Attending Clinician Unavailable JULIUS BRENNAN Attending Clinician Unavailable JULIUS BRENNAN Attending Clinician Unavailable MIN ASHER Attending Clinician Unavailable Anil Orozco MA Attending Clinician Unavailable BAR HO Attending Clinician Unavailable Garrett VALENCIA, Jaylin Bain Attending Clinician JAYLIN TUCKER Attending Clinician Unavailable Bar Ho MD Attending Clinician Inez ARCHER, Imani Alva Attending Clinician Unavailable Brooks Ochoa MD Attending Clinician Ratna Florian MD Attending Clinician Ana Rosa Begum MD Attending Clinician [phone] ANA ROSA BEGUM Attending Clinician Unavailable Guanako Schaffer MD Attending Clinician Em SAVAGE, Carolin Iniguez Attending Clinician WILLI KRUEGER Attending Clinician Unavailable RICHARD TOLENTINO Attending Clinician Unavailable Maricel Nixon MD Attending Clinician LINDA MARSH Attending Clinician Unavailable LINDA MARSH Attending Clinician Unavailable Linda Marsh DO Attending Clinician AWADKAREN CORONA Admitting Clinician Unavailable RATNA FLORIAN Admitting Clinician Unavailable BROOKS OCHOA Admitting Clinician Unavailable LINDA MARSH Admitting Clinician Unavailable Payers Payer Name Policy Type Policy Number Effective Date Expiration Date S hitesh KINSTON PPO OPTIONS [id number] 2021 00:00:00 [facility] [id number] 2020 PPO/POS 00:00:00 [facility] 3 [id number] 2022 00:00:00 Problems Condition Condition Condition Status Onset Resolution Last Treating Co mments Source Name Details Category Date Date Treatment Clinician Date Hepatic Hepatic Disease Active [facility] encephalop encephalop 07-18 [facility] kes athy athy 00:00: Medical 00 [place] Other Other Disease Active [facility] cirrhosis cirrhosis 07-18 [facility] of liver of liver 00:00: Medica l 00 [place] Gastropare Gastropare Disease Active [facility] sis sis 07[facility]18 [facility] 00:[facility]: Medical 00 [place] Generalize Generalize Disease Active [facility] d d 07[facility]18 [facility] abdominal abdominal 00:00: Medi vidal pain pain 00 Center Lung Lung Disease Active [facility] nodule nodule 07-18 [facility] 00:00: Medical 00 [place] Portal Portal Disease Active [facility] hypertensi hypertensi 07-18 [facility] kes on on 00:00: Medical 00 [place] Screening Screening Disease Active [facility] for for 07[facility]18 [facility] malignant malignant 00:00: Medi vidal neoplasm neoplasm 00 Center Hepatitis Hepatitis Disease Active [facility] B core B core 07-18 [facility] antibody antibody 00:00: Medica l positive positive 00 Center 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 00:00: Medical 00 [place] GI bleed GI bleed Disease Active [facility] 06[facility]26 [facility] 00:[facility]: Medical 00 [place] 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 7-21 ity of of liver of liver 00:00: [place] without without 00 Medical ascites ascites Branch Abnormal Abnormal Disease Active Unive rs platelets platelets 7-08 ity of 00:00: [place] [facility] Pain of Pain of Disease Active Univers upper upper 7-08 ity of abdomen abdomen 00:00: [place] [facility] Restlessne Restlessne Disease Active U nivers ss and ss and 7-08 [place] of agitation agitation 00:00[place] Other Other Disease Active [facility] cirrhosis cirrhosis 6-10 ity of of liver of liver 00:00: [place] [facility] Other Other Disease Active Univers cholelithi cholelithi 6-10 it y of asis asis 00:00: [place] without without 00 Medical obstructio obstructio Br anch n n Anxiety, Anxiety, Disease Active Unive rs generalize generalize 6-10 it y of d d 00:00: [place] [facility] Primary Primary Disease Active Univers insomnia insomnia 6-10 ity of 00:00: [place] [facility] Diverticul Diverticul Disease Active U nivers osis of osis of 6-10 ity of colon colon 00:00: [place] [facility] Idiopathic Idiopathic Disease Active U nivers acute acute 6-10 ity of pancreatit pancreatit [place] without is without 00 Me dical infection infection Bran ch or or necrosis necrosis Diabetic Diabetic Disease Active Unive rs gastropare gastropare 6-10 it y of sis sis 00:00: [place] [facility] Current Current Disease Active Univers moderate moderate 6-10 it[place] of episode of episode of [place] major major 00 Medical depressive depressive Br anch disorder disorder without without prior prior episode episode Splenomega Splenomega Disease Active U nivers ly ly 6-10 ity of 00:00: [place] [facility] Alcohol Alcohol Disease Active Univers use use 6-10 ity of 00:00: [place] [facility] Abnormal Abnormal Disease Active Unive rs EKG EKG 5-18 ity of 00:00: [place] [facility] Need for Need for Disease Active Unive rs hepatitis hepatitis 5-18 ity of C C 00:00: [place] screening screening 00 Medi vidal test test Branch Postural Postural Disease Active Unive rs dizziness dizziness 5-18 ity of with near with near 00:00: [place] salmeron syncope syncope 00 Medical Branch Encounter Encounter Disease Active Uni vers to to 4-25 ity of establish establish 00:00: [place] s care care 00 Medical Branch 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 00:00: [place] with with 00 Medical diabetic diabetic Branch polyneurop polyneurop athy, with athy, with long-term long-term current current use of use of insulin insulin Essential Essential Disease Active Uni vers hypertensi hypertensi -25 it y of on on 00:00: [place] 00 Medical Branch Erectile Erectile Disease Active Unive rs dysfunctio dysfunctio 02-12 it y of n, n, 00:00: [place] unspecifie unspecifie 00 Me dical d erectile d erectile Br anch dysfunctio dysfunctio n type n type Anxiety Anxiety Disease Active Univers and and 02-12 it[place] of depression depression [place] Iron Iron Disease Active Univers deficiency deficiency 25 it y of anemia, anemia, 00:00: [place] unspecifie unspecifie 00 Me dical d iron d iron Branch deficiency deficiency anemia anemia type type Allergies, Adverse Reactions, Alerts Allergy Allergy Status Severity Reaction(s) Onset Inactive Treating Comm ents Source Name Type Date Date Clinician DULAGLUT DRUG Active High N/V Univers MIARCLE INGREDI 5-20 ity of 00:00: [place] 00 Medical Branch Dulaglut Propensi Active Unknown - Pancreati Univers miracle ty to See comments 5-20 tis ity of adverse 00:00: Pancreati [place] reaction 00 tis Medical s Branch NO KNOWN Allergy Active [facility] Social History Social Habit Start Date Stop Date Quantity Comments Source History SDOH University o f Alcohol Frequency [place] M ed[facility] History SDOH University o f Alcohol Std Drinks [place] [facility] History SDOH University o f Alcohol Binge [place] Medic al Branch History of tobacco Cigarette Smoker [facility] History SDOH [facility] Exposure to 2022-06-22 2022-07-02 Not sure Eat [facility] SARS-CoV-2 (event) 00:00:00 05:30:00 Medica l Center History [facility] 2022-07-02 2022-07-[address] [facility] Transport Med 00:00:00 00:00:[address] [place] [address] [place] [facility] 2022-07-02 2022-07-[address] [facility] Housing Unable to 00:00:00 00:00:00 Medical Center Pay History [facility] 2022-07-02 2022-07-[address] [facility] Housing Places 00:00:00 00:00:00 Medical Ce nter Lived History [facility] 2022-07-02 2022-07-[address] [facility] Housing Homeless 00:00:00 00:00:00 Medical Center Last Year Alcohol intake 2022-05-06 2022-05-06 .71 /d [facility] 00:00:00 00:00:00 [facility] Cigarettes smoked 2022-05-02 2022-05-02 Univers ity of current (pack per 00:00:00 00:00:00 [facility] ) - Reported [place] Cigarette 2022-05-02 2022-05-02 University of pack-years 00:00:00 00:00:00 [facility] Tobacco use and 2022-05-02 2022-05-02 Smokeless Universit y of exposure 00:00:00 00:00:00 tobacco non-user [facility] Alcohol Comment 2022-03-30 2022-03-30 Drinks 5-6 shots Uni versity of 00:00:00 00:00:00 of rum a week. [facility] Sex Assigned At 1965 [address] [facility] Dayana kes 00:00:00 00:00:00 Medical Center Smoking Status Start Date Stop Date Source Ex-smoker 2022-05-02 00:00:00 2022-05-02 00:00:00 [facility] Medications Ordered Filled Start Stop Current Ordering Indication Dosage Frequency Signature Comments Components Source Medication Medication Date Date Medication? Clinician (SIG) Name Name milk 150mg QD Take [address] [facility] thistle 175 9-28 09-28 mg by [facility] mg tablet 14:40: 00:00 mouth Medica l 16 :00 daily . Center telmisartan 2021- No 1{tbl} QD Take [address] -hydrochlor 07-17 tablet by Dayana kes othiazide 15:36: 00:00 mouth Medica l (MICARDIS 29 :00 daily. Center HCT) 80-25 mg per tablet haloperidoL 2021- No .5mg Q.5D Take 0.[address] (HALDOL) 07-17-27 mg by [facility] 0.5 MG 15:06: 00:00 mouth 2 Medical tablet 28 :00 (two) Center times daily. metoclopram Yes 10mg Take [address] [facility] miracle HCl 07-17 by mouth 4 [facility] (REGLAN) 10 14:28: (four) Medi vidal MG tablet 31 times Center daily as needed for Nausea. omeprazole Yes 20mg Q.5D Take [address] (PriLOSEC) 07-17 by mouth 2 [place] es 20 MG 14:28: (two) Medical capsule 02 times Center daily. meclizine Yes 25mg Take [address] (ANTIVERT) 07-17 by mouth 3 [place] es 25 MG 14:28: (three) Medical tablet 02 times Center daily as needed for Dizziness. rosuvastati Yes 20mg QD Take [address] n (CRESTOR) 07-17 by mouth Luke s 20 MG 14:28: daily. Medical tablet 02 Center doxepin Yes 10mg QD Take [address] [address] (SINEquan) 07-17 by mouth [facility] 10 MG 14:28: nightly. Medical capsule 02 Center gabapentin Yes 100mg Q.[id number] Take [address] (NEURONTIN) 07-17 [id number] mg by L ukes 100 MG 14:28: 3D mouth 3 Medical capsule 02 (three) Center times daily. lipase/prot Yes Take by [facility] ease/amylas 07-17 mouth [facility] e (CREON 14:28: 6,000 TID Medi vidal ORAL) 02 . Center hydrOXYzine Yes 25mg Take [address] [facility] (ATARAX) 25 07-17 tablet (25 Dayana kes MG tablet 00:00: mg total) Med ical 00 by mouth Center as needed. ferrous Yes 325mg Take [address] sulfate 325 07-17 tablet [facility] (65 FE) MG 00:00: (325 mg Medi vidal EC tablet 00 total) by Cente r mouth every other day. lactulose Yes Hepatic 20g Q.[id number] Take [address] (CHRONULAC) 07-17 encephalopa [id number] mLs (20 g [facility] 10 gram/15 00:00: thy 3D total) by De dical mL solution 00 mouth 3 Cente r (three) times daily. telmisartan Yes [id number] 1{tbl} Take 1 Univers -hydrochlor 9- tablet by ity of othiazide 00:00: [place] 80[place]25 mg 00 the Medical per tablet morning. Branc h thiamine 2022- Yes 100mg QD Take 1 [facility] t 100 MG 07-03 tablet [facility] tablet 00:00: 23:59 (100 mg Medical 00 :00 total) by Center mouth daily. thiamine 2022- Yes 100mg QD Take 1 [facility] t 100 MG 07-03 tablet [facility] tablet 00:00: 23:59 (100 mg Medical 00 :00 total) by Center mouth daily. multivitami 2021- Yes 1{tbl} QD Take [address] (FOLTX, 07-03 tablet by [facility]) 00:00: 23:59 mouth Medical 2-1.13-25 00 :00 daily for Cente r mg Tab 30 days. tablet multivitami 2021- Yes 1{tbl} QD Take [address] [facility] (FOLTX, 07-03 tablet by [facility]) 00:00: 23:59 mouth Medical 2-1.13-25 00 :00 daily for Cente r mg Tab 30 days. tablet omeprazole Yes 20mg Q.5D Take [address] (PriLOSEC) -12 by mouth 2 [place] es 20 MG 13:14: (two) Medical capsule 24 times Center daily. meclizine Yes 25mg Take [address] (ANTIVERT) 9-12 by mouth 3 [place] es 25 MG 13:14: (three) Medical tablet 24 times Center daily as needed for Dizziness. rosuvastati Yes 20mg QD Take [address] n (CRESTOR) 12 by mouth Luke s 20 MG 13:14: daily. Medical tablet 24 [place] doxepin Yes 10mg QD Take [address] (SINEquan) 12 by mouth [facility] 10 MG 13:14: nightly. Medical capsule 24 [place] telmisartan Yes 1{tbl} QD Take [address] -hydrochlor 07-02 tablet by [place] es othiazide 13:14: mouth Medical (MICARDIS 24 daily. [place] HCT) 80-25 mg per tablet gabapentin Yes 100mg Q.[id number] Take [address] (NEURONTIN) 07-02 [id number] mg by L ukes 100 MG 13:14: 3D mouth 3 Medical capsule 24 (three) Center times daily. lipase/prot Yes Take by [facility] ease/amylas 07-02 mouth [facility] e (CREON 13:14: 6,000 TID Medi vidal ORAL) 24 . [place] haloperidoL Yes .5mg Q.5D Take 0.[address] (HALDOL) 9-12 mg by [facility] 0.5 MG 13:14: mouth 2 Medical tablet 24 (two) Center times daily. carvediloL 2022- Yes 6.25mg Q.5D Take [address] (COREG) 07-02 tablet [facility] 6.25 MG 00:00: 23:59 (6.25 mg Medic al tablet 00 :00 total) by Center mouth 2 (two) times daily. carvediloL 2022- Yes 6.25mg Q.5D Take [address] (COREG) 07-02 tablet [facility] 6.25 MG 00:00: 23:59 (6.25 mg Medic al tablet 00 :00 total) by Center mouth 2 (two) times daily. pantoprazol 2021- Yes 40mg Q.5D Take [address] e 07-02 12-11 tablet (40 [facility] (PROTONIX) 00:00: 23:59 mg total) M edical 40 MG 00 :00 by mouth 2 Center tablet (two) times daily for 90 days. pantoprazol No 40mg Q.5D Take [address] [facility] e 07-02 tablet (40 [facility] (PROTONIX) 00:00: 00:00 mg total) M edical 40 MG 00 :00 by mouth 2 Center tablet (two) times daily for 90 days. HYDROcodone 2021- No 1{tbl} Take [address] -acetaminop 07-02 tablet by Dayana woodson (NORCO 00:00: 23:59 mouth Medic al 5-325) 00 :00 every 6 Center 5-325 mg (six) per tablet hours as needed for Pain for up to 10 days. Max Daily Amount: 4 tablets HYDROcodone 2021- No 1{tbl} Take [address] -acetaminop 07-02 tablet by Dayana woodson (NORCO 00:00: 23:59 mouth Medic al 5-325) 00 :00 every 6 Center 5-325 mg (six) per tablet hours as needed for Pain for up to 10 days. Max Daily Amount: 4 tablets insulin Yes [id number] 54U inject 54 U nivers lispro, 8-22 Units ity of human, 00:00: under the [place] (HUMALOG 00 skin in Medical U-100 the Branch INSULIN) morning. 100 unit/mL injection telmisartan Yes [id number] 1{tbl} Take 1 Univers -hydrochlor 8-22 tablet by ity of othiazide 00:00: [place] 80-25 mg 00 the Medical per tablet morning. Bran h insulin Yes [id number] 54U inject 54 U nivers lispro, 8-22 Units ity of human, 00:00: under the [place] (HUMALOG 00 skin in Medical U-100 the Branch INSULIN) morning. 100 unit/mL injection telmisartan Yes [id number] 1{tbl} Take 1 Univers -hydrochlor 8-22 tablet by ity of othiazide 00:00: [place] 80-25 mg 00 the Medical per tablet morning. Bran h insulin Yes [id number] 54U inject 54 U nivers lispro, 8-22 Units ity of human, 00:00: under the [place] (HUMALOG 00 skin in Medical U-100 the Branch INSULIN) morning. 100 unit/mL injection insulin Yes [id number] 54U inject 54 U nivers lispro, 8-22 Units ity of human, 00:00: under the [place] (HUMALOG 00 skin in Medical U-100 the Branch INSULIN) morning. 100 unit/mL injection telmisartan 2021- No [id number] 1{tbl} Take 1 Univers -hydrochlor 06-11 tablet by it y of othiazide 00:00: 00:00 mouth in [place] 80-25 mg 00 :00 the Medical per tablet morning. Branc h insulin 2021- No [id number] 54U inject 54 Univers lispro, 06-11-22 Units ity of human, 00:00: 00:00 under the [place] (HUMALOG 00 :00 skin in Medical U-100 the Branch INSULIN) morning. 100 unit/mL injection insulin 2021- No [id number] 54U inject 54 Univers lispro, 05-18 08-01 Units ity of human, 00:00: 00:00 under the [place] (HUMALOG 00 :00 skin in Medical U-100 the Branch INSULIN) morning 100 unit/mL and 54 injection Units at noon and 54 Units in the evening. inject with meals. Blood-Gluco Yes [id number] Use as Univers se Sensor 7-26 directed ity of (DEXCOM G6 00:00: [place] SENSOR) 00 [facility] Blood-Gluco 2021-0 Yes [id number] Use as Univers se Sensor 7-26 directed ity of (DEXCOM G6 00:00: [place] SENSOR) 00 [facility] Blood-Gluco 2021-0 Yes [id number] Use as Univers se Sensor 7-26 directed ity of (DEXCOM G6 00:00: [place] SENSOR) 00 [facility] Blood-Gluco 2021-0 Yes [id number] Use as Univers se Sensor 7-26 directed ity of (DEXCOM G6 00:00: [place] SENSOR) 00 [facility] Blood-Gluco 2021-0 Yes [id number] Use as Univers se Sensor 7-26 directed ity of (DEXCOM G6 00:00: [place] SENSOR) 00 [facility] Blood-Gluco 2022-0 Yes [id number] Use as Univers se Sensor 7-26 directed ity of (DEXCOM G6 00:00: [place] SENSOR) 00 Medical [place] Branch proMETHazin Yes [id number] 25mg Insert 1 Univers e 25 mg 7-11 Suppositor ity of suppository 00:00: [place] into [place] 00 rectum Medical every 4 Branch (four) hours as needed for Nausea and Vomiting (N/V). proMETHazin Yes [id number] 25mg Insert 1 Univers e 25 mg 7-11 Suppositor ity of suppository 00:00: y [place] 00 rectum Medical every 4 Branch (four) hours as needed for Nausea and Vomiting (N/V). proMETHazin Yes [id number] 25mg Insert 1 Univers e 25 mg 7-11 Suppositor ity of suppository 00:00: y into [place] 00 rectum Medical every 4 Branch (four) hours as needed for Nausea and Vomiting (N/V). proMETHazin Yes [id number] 25mg Insert 1 Univers e 25 mg 7-11 Suppositor ity of suppository 00:00: y into [place] 00 rectum Medical every 4 Branch (four) hours as needed for Nausea and Vomiting (N/V). proMETHazin Yes [id number] 25mg Insert 1 Univers e 25 mg 7-11 Suppositor ity of suppository 00:00: [place] into [place] 00 rectum Medical every 4 Branch (four) hours as needed for Nausea and Vomiting (N/V). proMETHazin Yes [id number] 25mg Insert 1 Univers e 25 mg 7-11 Suppositor ity of suppository 00:00: y [place] 00 rectum Medical every 4 Branch (four) hours as needed for Nausea and Vomiting (N/V). haloperidoL Yes [id number] .5mg Take 1 Univers 0.5 mg 7-08 tablet by ity of tablet 00:00: mouth 2 (two) Medical times Branch daily. haloperidoL Yes [id number] .5mg Take 1 Univers 0.5 mg 7-08 tablet by ity of tablet 00:00: mouth 2 (two) Medical times Branch daily. haloperidoL Yes [id number] .5mg Take 1 Univers 0.5 mg 7-08 tablet by ity of tablet 00:00: mouth 2 [place] (two) Medical times Branch daily. haloperidoL 2022-0 Yes [id number] .5mg Take 1 Univers 0.5 mg 7-08 tablet by ity of tablet 00:00: mouth 2 [place] (two) Medical times Branch daily. haloperidoL 2022-0 Yes [id number] .5mg Take 1 Univers 0.5 mg 7-08 tablet by ity of tablet 00:00: mouth 2 [place] (two) Medical times Branch daily. haloperidoL 2022-0 Yes [id number] .5mg Take 1 Univers 0.5 mg 7-08 tablet by ity of tablet 00:00: mouth 2 [place] (two) Medical times Branch daily. sildenafiL 2022-0 Yes 100mg 100 mg as U nivers 100 mg 6-17 needed. ity of tablet 09:23: [place] [address] Medical Branch gabapentin 2022-0 Yes 100mg Take 100 Un darius 100 mg 6-17 mg by ity of capsule 09:23: mouth 3 [place] [address] (three) Medical times Branch daily. metFORMIN 2022-0 Yes 500mg Take 500 Uni vers 500 mg 6-17 mg by ity of tablet 09:23: mouth [address] [place] [address] (two) Medical times [place] daily with meals. Takes 2 tablets twice daily rosuvastati 2022-0 Yes 20mg Take 20 mg Univers n 20 mg 6-17 by mouth ity of tablet 09:23: at [place] [address] bedtime. Medical Branch omeprazole 2-0 Yes 20mg Take 20 mg U nivers 20 mg 6-17 by mouth ity of capsule 09:23: daily. [place] [address] Takes 2 Medical tablets Branch daily sildenafiL 2022-0 Yes 100mg 100 mg as U nivers 100 mg 6-17 needed. ity of tablet 09:23: [place] [address] Medical Branch gabapentin 2022-0 Yes 100mg Take 100 Un darius 100 mg 6-17 mg by ity of capsule 09:23: mouth 3 [place] [address] (three) Medical times Branch daily. metFORMIN 2022-0 Yes 500mg Take 500 Uni vers 500 mg 6-17 mg by ity of tablet 09:23: mouth 2 [place] [address] (two) Medical times Branch daily with meals. Takes 2 tablets twice daily rosuvastati 2022-0 Yes 20mg Take 20 mg Univers n 20 mg 6-17 by mouth ity of tablet 09:23: at [place] [address] bedtime. Medical Branch omeprazole 2022-0 Yes 20mg Take 20 mg U nivers 20 mg 6-17 by mouth ity of capsule 09:23: daily. [place] [address] Takes 2 Medical tablets Branch daily sildenafiL 2022-0 Yes 100mg 100 mg as U nivers 100 mg 6-17 needed. ity of tablet 09:23: [place] [address] Medical Branch gabapentin 2022-0 Yes 100mg Take 100 Un darius 100 mg 6-17 mg by ity of capsule 09:23: mouth 3 [place] [address] (three) Medical times Branch daily. metFORMIN 2022-0 Yes 500mg Take 500 Uni vers 500 mg 6-17 mg by ity of tablet 09:23: mouth 2 [place] [address] (two) Medical times [place] daily with meals. Takes 2 tablets twice daily rosuvastati 2022-0 Yes 20mg Take 20 mg Univers n 20 mg 6-17 by mouth ity of tablet 09:23: at [place] [address] bedtime. Medical Branch omeprazole 2022-0 Yes 20mg Take 20 mg U nivers 20 mg 6-17 by mouth ity of capsule 09:23: daily. [place] [address] Takes 2 Medical tablets Branch daily sildenafiL 2022-0 Yes 100mg 100 mg as U nivers 100 mg 6-17 needed. ity of tablet 09:23: [place] [address] Medical Branch gabapentin 2022-0 Yes 100mg Take 100 Un darius 100 mg 6-17 mg by ity of capsule 09:23: mouth 3 [place] [address] (three) Medical times Branch daily. metFORMIN 2022-0 Yes 500mg Take 500 Uni vers 500 mg 6-17 mg by ity of tablet 09:23: mouth 2 [place] [address] (two) Medical times Branch daily with meals. Takes 2 tablets twice daily rosuvastati 2022-0 Yes 20mg Take 20 mg Univers n 20 mg 6-17 by mouth ity of tablet 09:23: at [place] [address] bedtime. Medical Branch omeprazole 2022-0 Yes 20mg Take 20 mg U nivers 20 mg 6-17 by mouth ity of capsule 09:23: daily. [place] [address] Takes 2 Medical tablets Branch daily sildenafiL 2022-0 Yes 100mg 100 mg as U nivers 100 mg 6-17 needed. ity of tablet 09:23: [place] [address] Medical Branch gabapentin 2022-0 Yes 100mg Take 100 Un darius 100 mg 6-17 mg by ity of capsule 09:23: mouth 3 [place] [address] (three) Medical times Branch daily. metFORMIN 2022-0 Yes 500mg Take 500 Uni vers 500 mg 6-17 mg by ity of tablet 09:23: mouth 2 [place] [address] (two) Medical times Branch daily with meals. Takes 2 tablets twice daily rosuvastati 2022-0 Yes 20mg Take 20 mg Univers n 20 mg 6-17 by mouth ity of tablet 09:23: at [place] [address] bedtime. Medical Branch omeprazole 2022-0 Yes 20mg Take 20 mg U nivers 20 mg 6-17 by mouth ity of capsule 09:23: daily. [place] [address] Takes 2 Medical tablets Branch daily sildenafiL 2022-0 Yes 100mg 100 mg as U nivers 100 mg 6-17 needed. ity of tablet 09:23: [place] [address] Medical Branch gabapentin 2022-0 Yes 100mg Take 100 Un darius 100 mg 6-17 mg by ity of capsule 09:23: mouth 3 [place] [address] (three) Medical times Branch daily. metFORMIN 2022-0 Yes 500mg Take 500 Uni vers 500 mg 6-17 mg by ity of tablet 09:23: mouth 2 [place] [address] (two) Medical times [place] daily with meals. Takes 2 tablets twice daily rosuvastati 2022-0 Yes 20mg Take 20 mg Univers n 20 mg 6-17 by mouth ity of tablet 09:23: at [place] [address] bedtime. Medical Branch omeprazole 2022-0 Yes 20mg Take 20 mg U nivers 20 mg 6-17 by mouth ity of capsule 09:23: daily. [place] [address] Takes 2 Medical tablets Branch daily ferrous 2022-0 Yes 325mg Take 325 Unive rs sulfate 325 6-10 mg by ity of mg (65 mg 08:24: mouth [place] iron) 09 daily. Medical tablet Branch empaglifloz 2022-0 Yes Take by Uni vers in 6-10 mouth ity of (JARDIANCE) 08:24: [place]. [place] 25 mg Tab 09 Medical Branch ferrous 2022-0 Yes 325mg Take 325 Unive rs sulfate 325 6-10 mg by ity of mg (65 mg 08:24: mouth [place] iron) 09 daily. Medical tablet Branch empaglifloz 2022-0 Yes Take by Uni vers in 6-10 mouth ity of (JARDIANCE) 08:24: daily. [place] 25 mg Tab 09 Medical Branch ferrous Yes 325mg Take 325 Unive rs sulfate 325 6-10 mg by ity of mg (65 mg 08:24: mouth [place] iron) 09 daily. Medical tablet Branch empaglifloz Yes Take by Uni vers in 6-10 mouth ity of (JARDIANCE) 08:24: daily. [place] 25 mg Tab 09 Medical Branch ferrous Yes 325mg Take 325 Unive rs sulfate 325 6-10 mg by ity of mg (65 mg 08:24: mouth [place] iron) 09 daily. Medical tablet Branch empaglifloz Yes Take by Uni vers in 6-10 mouth ity of ([place] 25 [place] Tab 09 [place] ferrous Yes 325mg Take 325 Unive rs sulfate 325 6-10 mg by ity of mg (65 mg 08:24: mouth [place] iron) 09 daily. Medical tablet Branch empaglifloz Yes Take by Uni vers in 6-10 mouth ity of ([place] 08:[place] 25 [place] Tab 09 [facility] ferrous Yes 325mg Take 325 Unive rs sulfate 325 6-10 mg by ity of mg (65 mg 08:24: mouth [place] iron) 09 daily. Medical tablet Branch empaglifloz Yes Take by Uni vers in 6-10 mouth ity of ([place] 08:[place] 25 [place] Tab 09 [facility] doxepin 10 Yes [id number] 10mg Take 1 U nivers mg capsule 6-10 capsule by ity of 00:00: mouth at [place] 00 bedtime. Medical Branch lipase-prot Yes [id number] 1{capsu Take 1 Univers ease-amylas 6-10 le} capsule by it y of e (CREON) 00:00: mouth 3 [place] 6,000-19,00 00 (three) Medic al 0 -30,000 times Branch unit daily with capsule meals. telmisartan Yes [id number] 1{tbl} Take 1 Univers -hydrochlor 6-10 tablet by ity of othiazide 00:00: mouth [place] 80-25 mg 00 daily. Medical per tablet Branch doxepin 10 Yes [id number] 10mg Take 1 U nivers mg capsule 6-10 capsule by ity of 00:00: mouth at [place] 00 bedtime. Medical Branch lipase-prot Yes [id number] 1{capsu Take 1 Univers ease-amylas 6-10 le} capsule by it y of e (CREON) 00:00: mouth 3 - 00 (three) Medic al 0 -30,000 times Branch unit daily with capsule meals. telmisartan Yes [id number] 1{tbl} Take 1 Univers -hydrochlor 6-10 tablet by ity of othiazide 00:00: mouth [place] 80-25 mg 00 daily. Medical per tablet Branch doxepin 10 Yes [id number] 10mg Take 1 U nivers mg capsule 6-10 capsule by ity of 00:00: mouth at [place] 00 bedtime. Medical Branch lipase-prot Yes [id number] 1{capsu Take 1 Univers ease-amylas 6-10 le} capsule by it y of e (CREON) 00:00: mouth 3 - 00 (three) Medic al 0 -30,000 times Branch unit daily with capsule meals. telmisartan Yes [id number] 1{tbl} Take 1 Univers -hydrochlor 6-10 tablet by ity of othiazide 00:00: mouth [place] 80-25 mg 00 daily. Medical per tablet Branch doxepin 10 Yes [id number] 10mg Take 1 U nivers mg capsule 6-10 capsule by ity of 00:00: mouth at [place] 00 bedtime. Medical Branch lipase-prot Yes [id number] 1{capsu Take 1 Univers ease-amylas 6-10 le} capsule by it y of e (CREON) 00:00: mouth 3 - 00 (three) Medic al 0 -30,000 times Branch unit daily with capsule meals. doxepin 10 Yes [id number] 10mg Take 1 U nivers mg capsule 6-10 capsule by ity of 00:00: mouth at [place] 00 bedtime. Medical Branch lipase-prot Yes [id number] 1{capsu Take 1 Univers ease-amylas 6-10 le} capsule by it y of e (CREON) 00:00: mouth 3 [place] 6,000-19,00 00 (three) Medic al 0 -30,000 times Branch unit daily with capsule meals. doxepin 10 Yes [id number] 10mg Take 1 U nivers mg capsule 6-10 capsule by ity of 00:00: mouth at [place] 00 bedtime. Medical Branch lipase-prot 0 Yes [id number] 1{capsu Take 1 Univers ease-amylas 6-10 le} capsule by it y of e (CREON) 00:00: mouth 3 [place] 6,000-19,00 00 (three) Medic al 0 -30,000 times Branch unit daily with capsule meals. telmisartan 2021- No [id number] 1{tbl} Take 1 Univers -hydrochlor 6-10 08-22 tablet by it y of othiazide 00:00: 00:00 mouth [place] 80-25 mg 00 :00 daily. Medical per tablet Branch ondansetron Yes [id number] 4mg Take 1 Univers 4 mg 5-27 tablet by ity of disintegrat 00:00: mouth [place] ing tablet 00 every 8 Medica l (eight) Branch hours as needed for Nausea and Vomiting (N/V). ondansetron Yes [id number] 4mg Take 1 Univers 4 mg 5-27 tablet by ity of disintegrat 00:00: mouth [place] ing tablet 00 every 8 Medica l (eight) Branch hours as needed for Nausea and Vomiting (N/V). ondansetron Yes [id number] 4mg Take 1 Univers 4 mg 5-27 tablet by ity of disintegrat 00:00: mouth [place] ing tablet 00 every 8 Medica l (eight) Branch hours as needed for Nausea and Vomiting (N/V). ondansetron Yes [id number] 4mg Take 1 Univers 4 mg 5-27 tablet by ity of disintegrat 00:00: mouth [place] ing tablet 00 every 8 Medica l (eight) Branch hours as needed for Nausea and Vomiting (N/V). ondansetron 2022-0 Yes [id number] 4mg Take 1 Univers 4 mg 5-27 tablet by ity of disintegrat 00:00: mouth [place] ing tablet 00 every 8 Medica l (eight) Branch hours as needed for Nausea and Vomiting (N/V). ondansetron 2021-0 Yes [id number] 4mg Take 1 Univers 4 mg 5-27 tablet by ity of disintegrat 00:00: mouth [place] ing tablet 00 every 8 Medica l (eight) Branch hours as needed for Nausea and Vomiting (N/V). meclizine 2021-0 Yes [id number] 25mg Take 1 U nivers 25 mg 5-18 tablet by ity of tablet 00:00: mouth 3 (three) Medical times Branch daily as needed for Dizziness. meclizine 2021-0 Yes [id number] 25mg Take 1 U nivers 25 mg 5-18 tablet by ity of tablet 00:00: mouth 3 [place] (three) Medical times Branch daily as needed for Dizziness. meclizine 2021-0 Yes [id number] 25mg Take 1 U nivers 25 mg 5-18 tablet by ity of tablet 00:00: mouth 3 (three) Medical times Branch daily as needed for Dizziness. meclizine 2021-0 Yes [id number] 25mg Take 1 U nivers 25 mg 5-18 tablet by ity of tablet 00:00: mouth 3 (three) Medical times Branch daily as needed for Dizziness. meclizine 2021-0 Yes [id number] 25mg Take 1 U nivers 25 mg 5-18 tablet by ity of tablet 00:00: mouth 3 (three) Medical times Branch daily as needed for Dizziness. meclizine 2021-0 Yes [id number] 25mg Take 1 U nivers 25 mg 5-18 tablet by ity of tablet 00:00: mouth 3 (three) Medical times Branch daily as needed for Dizziness. Blood-Gluco 2021-0 Yes [id number] Use as Univers se 5-04 directed ity of Transmitter 00:00: [place] (DEXCOM G6 00 Medical TRANSMITTER Branch ) [place] Blood-Gluco 2021-0 Yes [id number] Use as Univers se 5-04 directed ity of Transmitter 00:00: [place] (DEXCOM G6 00 Medical TRANSMITTER Branch ) [place] Blood-Gluco 2021-0 Yes [id number] Use as Univers se 5-04 directed ity of Transmitter 00:00: [place] (DEXCOM G6 00 Medical TRANSMITTER Branch ) [place] Blood-Gluco 2021-0 Yes [id number] Use as Univers se 5-04 directed ity of Transmitter 00:00: [place] (DEXCOM G6 00 Medical TRANSMITTER Branch ) [place] Blood-Gluco 2021-0 Yes [id number] Use as Univers se 5-04 directed ity of Transmitter 00:00: [place] (DEXCOM G6 00 Medical TRANSMITTER Branch ) [place] Blood-Gluco 2021-0 Yes [id number] Use as Univers se 5-04 directed ity of Transmitter 00:00: [place] (DEXCOM G6 00 Medical TRANSMITTER Branch ) [place] Vital Signs Vital Name Observation Time Observation Value Comments Source HEIGHT 2022-07-17 14:15:00 182.9 cm WEIGHT 2022-07-17 14:15:00 109.77 kg HEIGHT 2022-07-17 14:15:00 182.9 cm WEIGHT 2022-07-17 14:15:00 109.77 kg HEIGHT 2022-07-17 14:15:00 182.9 cm WEIGHT 2022-07-17 14:15:00 109.77 kg HEIGHT 2022-06-26 18:00:00 182.9 cm WEIGHT 2022-06-26 18:00:00 109.9 kg HEIGHT 2022-06-26 18:00:00 182.9 cm WEIGHT 2022-06-26 18:00:00 109.9 kg HEIGHT 2022-06-26 18:00:00 182.9 cm WEIGHT 2022-06-26 18:00:00 109.9 kg Systolic blood 2022-07-17 15:27:00 99 mm[Hg] [facility] Diastolic blood 2022-07-17 15:27:00 62 mm[Hg] [facility] Heart rate 2022-07-17 14:15:00 78 /min [facility] Body temperature 2022-07-17 14:15:00 36.61 Kayla [facility] Body height 2022-07-17 14:15:00 182.9 cm [facility] Body weight 2022-07-17 14:15:00 109.77 kg [facility] BMI 2022-07-17 14:15:00 32.82 kg/m2 [facility] Oxygen saturation in 2022-07-17 14:15:00 100 /min [facility] Arterial blood by Medical Ce nter Pulse oximetry Systolic blood 2022-07-02 08:10:00 130 mm[Hg] [facility] Diastolic blood 2022-07-02 08:10:00 70 mm[Hg] [facility] Heart rate 2022-07-02 08:10:00 80 /min [facility] Body temperature 2022-07-02 08:10:00 36.17 Kayla [facility] Oxygen saturation in 2022-07-02 08:10:00 100 /min [facility] Arterial blood by Medical Ce nter Pulse oximetry Respiratory rate 2022-07-02 08:10:00 18 /min [facility] Body height 2022-06-30 09:20:00 182.9 cm [facility] Body weight 2022-06-30 09:20:00 109.9 kg [facility] BMI 2022-06-30 09:20:00 32.86 kg/m2 [facility] Procedures Procedure Date / Time Performing Source Performed Clinician BASIC METABOLIC PANEL 2022-07-17 16:02:00 Jaylin Tucker [facility] HEPATIC FUNCTION PANEL 2022-07-17 16:02:00 Jaylin Tucker CH, I [facility] CBC W/PLT COUNT & AUTO 2022-07-17 16:02:00 Jaylin Tucker [facility] PROTHROMBIN TIME/INR 2022-07-17 16:02:00 Jaylin Tucker [facility] MAGNESIUM 2022-07-17 16:02:00 Jaylin Tucker [facility] PHOSPHORUS 2022-07-17 16:02:00 Jaylin Tucker [facility] CBC W/PLT COUNT & AUTO 2022-07-17 16:02:00 Jaylin Tucker [facility] POCT-GLUCOSE METER 2022-07-02 08:44:00 Gadichbrenton [facility] COMPREHENSIVE METABOLIC 2022-07-02 03:22:[address] [facility] PROTHROMBIN TIME/INR 2022-07-02 03:22:00 Ratna Florian [facility] CBC W/PLT COUNT & AUTO 2022-07-02 03:22:00 Ratna Florian [facility] CBC W/PLT COUNT & AUTO 2022-07-02 03:22:00 Ratna Florian [facility] POCT-GLUCOSE METER 2022-07-01 22:20:00 [facility] PO[facility]SE [facility]ER 2022-07-01 15:31:00 [facility] POCT-GLUCOSE METER 2022-07-01 11:14:00 [facility] MR ABDOMEN WITH & WITHOUT IV 2022-07-01 11:01:00 Star Landrynilsonfanta [facility] POCT-GLUCOSE METER 2022-07-01 07:39:00 [facility] POCT-GLUCOSE METER 2022-07-01 06:29:00 [facility] COMPREHENSIVE METABOLIC 2022-07-01 04:11:[address] [facility] CBC W/PLT COUNT & AUTO 2022-07-01 04:11:00 Ratna Florian [facility] CBC W/PLT COUNT & AUTO 2022-07-01 04:11:00 [facility] PROTHROMBIN TIME/INR 2022-07-01 04:05:00 Ratna Florian [facility] POCT-GLUCOSE METER 2022-06-30 23:42:00 [facility] POCT-GLUCOSE METER 2022-06-30 17:00:00 [facility] POCT-GLUCOSE METER 2022-06-30 13:08:00 [facility] THROMBOELASTOGRAPH (TEG) 2022-06-30 07:23:00 Josi Enrique CH [facility] COMPREHENSIVE METABOLIC 2022-06-30 05:58:[address] [facility] PROTHROMBIN TIME/INR 2022-06-30 05:58:00 Ratna Florian [facility] CBC W/PLT COUNT & AUTO 2022-06-30 05:58:00 [facility] HEPATITIS B PCR, 2022-06-30 05:58:00 Jack Bonner [facility] [place] [facility] POCT-GLUCOSE METER 2022-06-30 05:58:00 [facility] TYPE AND SCREEN, AUTOMATED 2022-06-30 05:58:00 [facility] CBC W/PLT COUNT & AUTO 2022-06-30 05:58:[address] [facility] FIBRINOGEN 2022-06-30 05:57:00 Josi Enrique [facility] PROTHROMBIN TIME/INR 2022-06-30 05:57:00 Josi Enrique [facility] POCT-GLUCOSE METER 2022-06-30 02:10:00 [facility] POCT-GLUCOSE METER 2022-06-30 00:22:00 [facility] POCT-GLUCOSE METER 2022-06-29 17:47:00 [facility] HEMOGLOBIN AND HEMATOCRIT 2022-06-29 16:55:00 [facility] PREPARE LEUKO-REDUCED RBC 2022-06-29 13:21:[address] [facility] POCT-GLUCOSE METER 2022-06-29 12:17:[address] [facility] 2D ECHO W/ DOPPLER 2022-06-29 09:41:00 Jack Bonner [facility] (CW/PW/COLOR) [facility] POCT-GLUCOSE METER 2022-06-29 06:29:00 Ratna Florian [facility] PROTHROMBIN TIME/INR 2022-06-29 04:11:00 Zay [facility] APTT 2022-06-29 04:11:00 [facility] (HEMOGRAM ONLY) 2022-06-29 04:11:[address] [facility] COMPREHENSIVE METABOLIC 2022-06-29 04:11:00 Zay [facility] MAGNESIUM 2022-06-29 04:11:00 [facility] CALCIUM, IONIZED 2022-06-29 04:11:00 [facility] CBC W/PLT COUNT & AUTO 2022-06-29 04:11:00 Jack Bonner [facility] CBC W/PLT COUNT & AUTO 2022-06-29 04:11:[address] [facility] POCT-GLUCOSE METER 2022-06-28 22:25:00 [facility] POCT-GLUCOSE METER 2022-06-28 15:48:00 Annie [facility] US ABDOMEN COMPLETE 2022-06-28 11:59:00 ArlethBrooks [facility] HEMOGLOBIN AND HEMATOCRIT 2022-06-28 10:48:00 Zay [facility] DRUG SCREEN, URINE, 2022-06-28 10:40:00 Jack Bonner [facility] TRANSPLANT [facility] POCT-GLUCOSE METER 2022-06-28 10:36:[address] [facility] POCT-GLUCOSE METER 2022-06-28 08:50:[address] [facility] PROTHROMBIN TIME/INR 2022-06-28 05:35:00 Daríoartie [facility] APTT 2022-06-28 05:35:00 Zay [facility] CBC (HEMOGRAM ONLY) 2022-06-28 05:35:[address] [facility] COMPREHENSIVE METABOLIC 2022-06-28 05:35:00 Zay [facility] MAGNESIUM 2022-06-28 05:35:00 Zay [facility] POCT-GLUCOSE METER 2022-06-27 22:53:[address] [facility] HEMOGLOBIN AND HEMATOCRIT 2022-06-27 19:49:00 Arleth [facility] HEPATITIS C PCR, 2022-06-27 17:03:00 [facility] PHOSPHATIDYLETHANOL, BLOOD 2022-06-27 17:03:00 Jack Bonner [facility] ALPHA FETOPROTEIN (AFP), 2022-06-27 17:01:00 [facility] ANTIBODY 2022-06-27 17:01:00 Jack Bonner [facility] HEPATITIS A ANTIBODY, IGG 2022-06-27 17:01:00 Jack Bonner [facility] HEPATITIS A ANTIBODY, IGM 2022-06-27 17:01:00 Jack Bonner [facility] HEPATITIS B SURFACE ANTIBODY 2022-06-27 17:01:00 [facility] CORE ANTIBODY, 2022-06-27 17:01:00 Jack Bonner [facility] HEPATITIS B SURFACE ANTIGEN 2022-06-27 17:01:00 Bonner, [facility] ANTI-NUCLEAR ANTIBODY (BEATA) 2022-06-27 17:01:00 Ha [facility] HC LAB FLUORESC AB SCRN EA 2022-06-27 17:01:00 Jack Bonner [facility] ACTIN (SMOOTH MUSCLE) 2022-06-27 17:01:00 Ha [facility] ANTIBODY, IGG [facility] CERULOPLASMIN 2022-06-27 17:01:00 Ha [facility] [id number]\, SERUM 2022-06-27 17:01:00 Ha [facility] IRON, TIBC, % SAT. (WITHOUT 2022-06-27 17:01:00 Ha [facility] FERRITIN) [facility] FERRITIN 2022-06-27 17:01:00 Ha [facility] MITOCHONDRIAL AB SCREEN 2022-06-27 17:01:00 Ha [facility] MITOCHONDRIAL AB TITER 2022-06-27 17:01:00 Ha [facility] POCT-GLUCOSE METER 2022-06-27 16:19:00 [facility] POCT-GLUCOSE METER 2022-06-27 11:35:00 [facility] HEMOGLOBIN AND HEMATOCRIT 2022-06-27 11:23:00 Larisa Cardenas [facility] FIBRINOGEN 2022-06-27 11:23:[address] [facility] REPORT OF PROCEDURE - 2022-06-27 10:36:47 [facility] ESOPHAGOGASTRODUODENOSCOPY, 2022-06-27 09:58:00 Carolin Strickland [facility] WITH VARICEAL BANDING [facility] nter POCT-GLUCOSE METER 2022-06-27 06:05[facility]/INR 2022-06-27 03:03:00 Zay [facility] APTT 2022-06-27 03:03:00 Zay [facility] CBC (HEMOGRAM ONLY) 2022-06-27 03:03:[address] [facility] COMPREHENSIVE METABOLIC 2022-06-27 03:03:00 Viktormaryartie [facility] MAGNESIUM 2022-06-27 03:03:00 Zay [facility] POCT-GLUCOSE METER 2022-06-26 23:56:00 Arleth, [facility] HEMOGLOBIN AND HEMATOCRIT 2022-06-26 23:43:00 Larisa Cardenas [facility] ABORH, MANUAL 2022-06-26 23:43:00 Malathi Somers [facility] ECG 12-LEAD 2022-06-26 19:35:41 Unknown, Hl7 Doctor [facility] CBC W/PLT COUNT & AUTO 2022-06-26 19:16:00 [facility] COMPREHENSIVE METABOLIC 2022-06-26 19:16:00 [facility] PROTHROMBIN TIME/INR 2022-06-26 19:16:00 [facility] APTT 2022-06-26 19:16:00 [facility] LIPASE 2022-06-26 19:16:00 [facility] CREATINE KINASE (CK) 2022-06-26 19:16:00 [facility] HIGH SENSITIVITY TROPONIN I 2022-06-26 19:16:00 [facility] ETHANOL 2022-06-26 19:16:00 [facility] TYPE AND SCREEN, AUTOMATED 2022-06-26 19:16:00 Richard Tolentino [facility] CBC W/PLT COUNT & AUTO 2022-06-26 19:16:00 [facility] HEMOGLOBIN AND HEMATOCRIT 2022-06-26 18:13:00 Cheko Reardon CH, I [facility] CT LOW DOSE LUNG NODULE 2022-06-05 15:47:37 Linda Marsh [facility] Medical Branch CONSENT/REFUSAL FOR 2022-06-05 15:24:44 Doctor Unassigned, [facility] DIAGNOSIS AND TREATMENT [place] [facility] CONSENT/REFUSAL FOR 2022-06-05 15:24:43 Doctor Unassigned, [facility] DIAGNOSIS AND TREATMENT [place] [facility] ASSIGNMENT OF BENEFITS 2022-06-05 15:24:26 Doctor Unassigned, [facility] [place] [facility] Plan of Care Planned Activity Planned Date Details Comments Source Future Scheduled 2030-05-27 Screening for malignant neoplasm [facility] 00:00:00 of colon (procedure) [code = Medical [id number]] [place] Future Scheduled 2030-05-27 Screening for malignant neoplasm [facility] Test 00:00:00 of colon (procedure) [code = Medical [id number]] [place] Future Scheduled 2030-05-27 Screening for malignant neoplasm [facility] Test 00:00:00 of colon (procedure) [code = Medical [id number]] [place] Future Scheduled 2030-05-27 Screening for malignant neoplasm [facility] Test 00:00:00 of colon (procedure) [code = Medical [id number]] [place] Future Scheduled 2022-06-21 INFLUENZA VACCINE (#1) [code = [facility] 00:00:00 INFLUENZA VACCINE (#1)] [facility] Future Scheduled 2022-06-21 INFLUENZA VACCINE (#1) [code = [facility] 00:00:00 INFLUENZA VACCINE (#1)] [facility] Future Scheduled 2021-10-21 DEPRESSION SCREENING (12+) [code [facility] 00:00:00 = DEPRESSION SCREENING (12+)] [facility] Future Scheduled 2021-10-21 DEPRESSION SCREENING (12+) [code [facility] 00:00:00 = DEPRESSION SCREENING (12+)] [facility] Future Scheduled 2015 SHINGLES VACCINES (1 of 2) [code [facility] 00:00:00 = SHINGLES VACCINES (1 of 2)] [facility] Future Scheduled 2015 SHINGLES VACCINES (1 of 2) [code [facility] 00:00:00 = SHINGLES VACCINES (1 of 2)] [facility] Future Scheduled 2000 Lipid panel (procedure) [code = [facility] 00:00:00 [id number]] [facility] Future Scheduled 2000 Lipid panel (procedure) [code = [facility] 00:00:00 [id number]] [facility] Future Scheduled 1984 DTAP/TDAP/TD VACCINES (1 - Tdap) [facility] 00:00:00 [code = DTAP/TDAP/TD VACCINES (1 Medical - Tdap)] [place] Future Scheduled 1984 DTAP/TDAP/TD VACCINES (1 - Tdap) [facility] 00:00:00 [code = DTAP/TDAP/TD VACCINES (1 Medical - Tdap)] [place] Future Scheduled 1971 PNEUMOCOCCAL VACCINE 0-64 YRS ([address] [facility] 00:00:00 - PCV) [code = PNEUMOCOCCAL Medical VACCINE 0-64 YRS (1 - PCV)] [place] Future Scheduled 1965 COVID-19 VACCINE (#1) [code = [facility] 00:00:00 COVID-19 VACCINE (#1)] [facility] Future Scheduled 1965 COVID-19 VACCINE (#1) [code = [facility] 00:00:00 COVID-19 VACCINE (#1)] [facility] [place] Future Scheduled 1965 CT Colonography (combo) [code = [facility] 00:00:00 CT Colonography (combo)] [facility] Future Scheduled 1965 Screening for malignant neoplasm [facility] 00:00:00 of colon (procedure) [code = Medical [id number]] [place] Future Scheduled 1965 Screening for malignant neoplasm [facility] 00:00:00 of colon (procedure) [code = Medical [id number]] [place] Future Scheduled 1965 Sigmoidoscopy [code = [facility] S[facility]oidoscopy] [facility] Future Scheduled 1965 CT Colonography (combo) [code = [facility] 00:00:00 CT Colonography (combo)] [facility] Future Scheduled 1965 Screening for malignant neoplasm [facility] Test 00:00:00 of colon (procedure) [code = Medical [id number]] [place] Future Scheduled 1965 Screening for malignant neoplasm [facility] 00:00:00 of colon (procedure) [code = Medical [id number]] [place] Future Scheduled 1965 Sigmoidoscopy [code = [facility] 00:[facility]:00 Sigmoidoscopy] [facility] Future Appointment 2022-08-15 Karen Awad MD, [address] [facility] 11:00:[address] [address] [place] Future Appointment 2022-08-15 Karen Awad MD, [address] [facility] 11:00:[address] [address] [place] Procedure 2022-08-15 ESOPHAGOGASTRODUODENOSCOPY [facility] 11:[facility]00 [facility] Encounters Start End Encounter Admission Attending Care Care Encounter Source Date/Time Date/Time Type Type Clinicians Facility Department ID 2022-07-19 Outpatient GAURI [facility] [id number] [facility] 10:50:57 KAREN 2022-08-14 2022-08-14 Outpatient [facility] [id number] [facility] 00:00:00 00:00:00 2022-08-10 2022-08-10 Outpatient R REHANA [facility] [id number] [facility] 11:30:00 11:30:00 BRIEN [id number] [facility] 2022-08-10 2022-08-10 Outpatient R REHANA [facility] [id number] [facility] 11:30:00 11:30:00 BRIEN [facility] 2022-08-08 2022-08-08 Outpatient R JORGE A LYONS [facility] [id number] [facility] 10:30:00 10:30:00 JORGE A LYONS [id number] [facility] 2022-07-31 2022-07-31 Outpatient [facility] [id number] [facility] 00:00:00 00:00:00 2022-07-20 2022-07-20 Outpatient R JULIUS BRENNAN [facility] [id number] Univers 14:30:00 14:30:00 JULIUS BRENNAN [facility] 2022-07-19 2022-07-19 Abstract Pam, [facility] [id number] 00:[facility]00 [facility] 2022-07-18 2022-07-18 [facility] [id number] [facility] 13:40:00 13:40:00 BAR [facility] 2022-07-17 2022-07-17 Office Tucker, [facility] [id number] 14:00:00 15:00:00 Visit [facility] 2022-07-17 2022-07-17 Outpatient [facility] [id number] [facility] 13:37:03 13:37:03 JAYLIN 2022-07-16 2022-07-16 RefJorge A Beach [facility] [id number] Univers 00:00:00 00:00:00 HEALTH [id number] it y of [place] [id number] Juma as PRANAV?BLEA [id number] [address] OFFICE BUILDING 2022-07-16 2022-07-16 [facility] [id number] Univers 00:00:00 00:00:00 Bar GANN [id number] i [place] [id number] [id number] [place] [address] Branch BUILDING 2022-07-13 2022-07-13 Telephone Inez [facility] [id number] 00:00:00 00:00:00 Imani Alva [facility] 2022-07-13 2022-07-13 Telephone Inez [facility] [id number] [facility] St 00:00:00 00:00:00 [facility] 2022-06-26 2022-07-02 Hospital ER Brooks Ochoa [facility] [id number] [facility] 17:43:00 13:14:00 Encounter Ratna Florian bonnie [facility] 2022-06-26 2022-07-02 [facility] Brooks Ochoa [facility] [id number] [facility] 17:43:00 13:14:00 Encounter Ratna Florian [facility], [facility] 2022-06-26 2022-07-02 Inpatient ER [facility] ICU [id number] [facility] 17:43:00 13:14:00 [facility] 2022-07-02 2022-07-02 Travel [facility] [id number] [facility] 00:00:00 [facility] 2022-07-02 2022-07-02 Travel [facility] [id number] [facility] 00:[facility] 00:00:00 [facility] 2022-06-27 2022-06-27 Anesthesia Karime [facility] [id number] 09:58:00 10:55:00 [facility]22-[facility] 2022-06-27 Anesthesia Karime [facility] [id number] 09:58:00 10:55:00 Event Guanako [facility] 2022-06-27 2022-06-27 Surgery Em [facility] [id number] 09:02:00 09:57:00 Carolin [facility] 2022-06-27 2022-06-27 Surgery Em [facility] [id number] 09:02:00 09:57:00 [facility] 2022-06-26 2022-06-26 Outpatient [facility] [id number] [address] [place] [address] 00:00:00 23:59:00 [facility] 2022-[facility]-26 2022-06-26 Outpatient Artie [facility] [id number] Univers 11:30:00 11:30:00 WILLI [id number] [facility] 2022-06-26 2022-06-26 Outpatient Artie [facility] [id number] Univers 11:30:00 11:30:00 WILLI [facility] 2022-06-26 2022-06-26 Outpatient CHANEL TOLENTINO [id number] Chanel 00:00:00 00:00:00 RICHARD Seybol d 2022-06-26 2022-06-26 [facility] [id number] [id number] 00:00:00 00:00:00 [facility] 2022-06-26 2022-06-26 [facility] [id number] 00:00:00 00:00:00 [facility] 2022-06-26 2022-06-26 [facility] [id number] 00:00:00 00:00:00 [facility] 2022-06-26 2022-06-26 [facility] [id number] [id number] 00:00:00 00:00:00 [facility] 2022-06-08 2022-06-08 Patient Jorge A Lyons [facility] [id number] Univers 00:00:00 00:00:00 Secure Msg PRIMARY [id number] ity of [facility] [id number] [id number] [address] 2022-06-08 2022-06-08 [facility] [id number] Univers 00:00:00 00:00:00 Bar GANN [id number] i ty of [facility] [id number] [id number] Me dical NAL [address] 2022-06-05 2022-06-05 Outpatient R LINDA MARSH [facility] [id number] Univers 10:24:39 23:59:00 LINDA MARSH i ty of [facility] 2022-06-05 2022-06-05 [facility] Maximo [facility] [id number] Univers 10:00:00 23:59:00 Encounter Linda [place] [id number] ity [facility] [id number] [place] [id number] [facility] [address] 2022-05-18 2022-05-18 Telephone Jorge A Lyons [facility] [id number] Univers 00:00:00 00:00:00 PRIMARY [id number] it y of [id number] [facility] [id number] De dical [address] Results Test Description Test Time Test Comments Results Result Comments Source BASIC METABOLIC PANEL 2022-07-17 17:57:44 Test Item Value Reference Range Interpretation Comme nts SODIUM (BEAKER) (test 130 meq/L 136-145 L code = 381) POTASSIUM (BEAKER) 4.4 meq/L 3.5-5.1 (test code = 379) CHLORIDE (BEAKER) (test 96 meq/L 98-107 L code = 382) CO2 (BEAKER) (test code 27 meq/L 22-29 = 355) BLOOD UREA NITROGEN 11 mg/dL 7-21 (BEAKER) (test code = 354) CREATININE (BEAKER) 0.84 mg/dL 0.57-1.25 (test code = 358) GLUCOSE RANDOM (BEAKER) 179 mg/dL 70-105 H (test code = 652) CALCIUM (BEAKER) (test 10.6 mg/dL 8.4-10.2 H code = 697) EGFR (BEAKER) (test 103 mL/min/1.73 sq I nterpretation of eGFR values code = 1092) m Stage Descripti on Result G1 Normal or high >=90 G2 Mildly decreased 60-89 G3a Mildly to moderately 45-5 9 G3b Moderately to severely 30- 44 G4 Severly decreased 15-29 G5 Kidney failure <15Repo rted eGFR is based on the CK D-EPI 2020 equation that d oes not use a race coefficien tEstimated GFR is not as accurate as Creatinine Clearance in pr edicting glomerular filt ration rate. Estimated GFR i s not applicable for dialysis joss rosales Control Systems Specialist ID - [id number] 17:57:44 Test Item Value Reference Range Interpretation Comments MAGNESIUM (BEAKER) (test code = 1.9 mg/dL 1.6-2.6 627) Control Systems Specialist ID - [id number] 17:57:44 Test Item Value Reference Range Interpretation Comments PHOSPHORUS (BEAKER) (test code = 3.5 mg/dL 2.3-4.7 604) Control Systems Specialist ID - ADMINHEPATIC FUNCTION [id number] 17:57:44 Test Item Value Reference Range Interpretation Comments TOTAL PROTEIN (BEAKER) (test code = 8.0 gm/dL 6.0-8.3 770) ALBUMIN (BEAKER) (test code = 1145) 3.9 g/dL 3.5-5.0 BILIRUBIN TOTAL (BEAKER) (test code 0.8 mg/dL 0.2-1.2 = 377) BILIRUBIN DIRECT (BEAKER) (test 0.4 mg/dL 0.1-0.5 code = 706) ALKALINE PHOSPHATASE (BEAKER) (test 118 U/L 40-150 code = 346) AST (SGOT) (BEAKER) (test code = 34 U/L 5-34 353) ALT (SGPT) (BEAKER) (test code = 58 U/L 6-55 H 347) Control Systems Specialist ID - ADMINPROTHROMBIN TIME/[id number] 17:21:32 Test Item Value Reference Range Interpretation Comments PROTIME (BEAKER) 14.6 seconds 11.9-14.2 H (test code = 759) INR (BEAKER) (test 1.21 See_Comment [Automat ed message] code = 370) The system [employer] generated this result transmitted ref erence range: <=5.90. The reference range was not used to int erpret this result as normal/abnormal . RECOMMENDED COUMADIN/WARFARIN INR THERAPY RANGESSTANDARD DOSE: 2.0 - 3.0 Includes: PROPHYLAXIS for venous thrombosis, systemic embolization; TREATMENT for venous thrombosis and/or pulmonary embolus.HIGH RISK: Target INR is 2.5-3.5 for patients with mechanical heart valves.CBC W/PLT COUNT & AUTO [id number] 17:13:11 Test Item Value Reference Range Interpretation Comments WHITE BLOOD CELL COUNT (BEAKER) 7.1 K/ L 3.5-10.5 (test code = 775) RED BLOOD CELL COUNT (BEAKER) 4.03 M/ L 4.63-6.08 L (test code = 761) HEMOGLOBIN (BEAKER) (test code = 11.6 GM/DL 13.7-17.5 L 410) HEMATOCRIT (BEAKER) (test code = 35.3 % 40.1-51.0 L 411) MEAN CORPUSCULAR VOLUME (BEAKER) 87.6 fL 79.0-92.2 (test code = 753) MEAN CORPUSCULAR HEMOGLOBIN 28.8 pg 25.7-32.2 (BEAKER) (test code = 751) MEAN CORPUSCULAR HEMOGLOBIN CONC 32.9 GM/DL 32.3-36.5 (BEAKER) (test code = 752) RED CELL DISTRIBUTION WIDTH 14.7 % 11.6-14.4 H (BEAKER) (test code = 412) PLATELET COUNT (BEAKER) (test 146 K/CU MM 150-450 L code = 756) MEAN PLATELET VOLUME (BEAKER) 11.0 fL 9.4-12.4 (test code = 754) NUCLEATED RED BLOOD CELLS 0 /100 WBC 0-0 (BEAKER) (test code = 413) NEUTROPHILS RELATIVE PERCENT 66 % (BEAKER) (test code = 429) LYMPHOCYTES RELATIVE PERCENT 21 % (BEAKER) (test code = 430) MONOCYTES RELATIVE PERCENT 8 % (BEAKER) (test code = 431) EOSINOPHILS RELATIVE PERCENT 4 % (BEAKER) (test code = 432) BASOPHILS RELATIVE PERCENT 1 % (BEAKER) (test code = 437) NEUTROPHILS ABSOLUTE COUNT 4.69 K/ L 1.78-5.38 (BEAKER) (test code = 670) LYMPHOCYTES ABSOLUTE COUNT 1.45 K/ L 1.32-3.57 (BEAKER) (test code = 414) MONOCYTES ABSOLUTE COUNT (BEAKER) 0.56 K/ L 0.30-0.82 (test code = 415) EOSINOPHILS ABSOLUTE COUNT 0.30 K/ L 0.04-0.54 (BEAKER) (test code = 416) BASOPHILS ABSOLUTE COUNT (BEAKER) 0.05 K/ L 0.01-0.08 (test code = 417) IMMATURE GRANULOCYTES-RELATIVE 0 % 0-1 PERCENT (BEAKER) (test code = 2801) Drug screen, urine, [id number] 09:56:19 Test Item Value Reference Range Interpretation Comments Scan Result (test code = See scanned report [id number]) LYNDSAY (test code = LYNDSAY) [facility] report [facility] [id number] 09:56:19 Test Item Value Reference Range Interpretation Comments Scan Result (test code = See scanned report [id number]) LYNDSAY (test code = LYNDSAY) See scanned report [facility], URINE, [id number] 09:56:19 Test Item Value Reference Range Interpretation Comments SCAN RESULT (test code = See scanned report [id number]) See scanned reportANTI-MITOCHONDRIAL AB, REFLEX TO [id number] 10:08:47 Test Item Value Reference Range Interpretation Comments SCAN RESULT (test code = 8211701) HEPATITIS B PCR, [id number] 16:22:43 Test Item Value Reference Range Interpretation Comments HBV RESULT COMPONENT HBV DNA not detected HBV DNA not detected (BEAKER) (test code = 2701) This test uses a Real-Time Polymerase Chain Reaction (RT-PCR) methodology and was performed using YOU AmpliPrep/YOU TaqMan HBV Test, v2.0 ([employer]Reportable range for this assay is 20 - 170,000,000 IU per mL (1.30 - 8.23 Log IU/mL).PHOSPHATIDYLETHANOL, [id number] 10:47:03 Test Item Value Reference Range Interpretation Comments PHOSPHATIDYLETHANOL (PETH) See scanned (test code = 1865777) report See scanned reportPOC-Glucose [id number] 08:56:45 Test Item Value Reference Range Interpretation Comments POC-Glucose Meter (test 221 mg/dL 70-110 H : TE STED AT [facility] code = 1538) [address] [place], [address]: Control Systems Specialist/Techni edwige ID = [id number] for David Saravia ia Lab Interpretation (test Abnormal code = 17273-9) [facility]-Glucose [id number] 08:56:45 Test Item Value Reference Range Interpretation Comments POC-Glucose Meter (test 221 mg/dL 70-110 H : TE STED AT [facility] code = 1538) [address] [place], [address]: Control Systems Specialist/Techni edwige ID = [id number] for David Saravia ia Lab Interpretation (test Abnormal code = 79440-1) [facility]-GLUCOSE [id number] 08:56:45 Test Item Value Reference Range Interpretation Comments POC-GLUCOSE METER 221 mg/dL 70-110 H : TESTED A T [facility] 6720 (BEAKER) (test code = ROGE Al[facility], 1538) [address]: Control Systems Specialist/Techni edwige ID = [id number] for David Saravia COMPREHENSIVE METABOLIC [id number] 04:26:22 Test Item Value Reference Range Interpretation Comments TOTAL PROTEIN 6.8 gm/dL 6.0-8.3 Specimen sligh tly (BEAKER) (test hemolyzed code = 770) ALBUMIN (BEAKER) 3.5 g/dL 3.5-5.0 Specimen sl ightly (test code = 1145) hemolyzed ALKALINE 122 U/L 40-150 PHOSPHATASE (BEAKER) (test code = 346) BILIRUBIN TOTAL 0.8 mg/dL 0.2-1.2 Specimen sli ghtly (BEAKER) (test hemolyzed code = 377) SODIUM (BEAKER) 133 meq/L 136-145 L (test code = 381) POTASSIUM (BEAKER) 4.4 meq/L 3.5-5.1 Specimen slightly (test code = 379) hemolyzed CHLORIDE (BEAKER) 100 meq/L 98-107 (test code = 382) CO2 (BEAKER) (test 27 meq/L 22-29 code = 355) BLOOD UREA 4 mg/dL 7-21 L NITROGEN (BEAKER) (test code = 354) CREATININE 0.80 mg/dL 0.57-1.25 Specimen slight ly (BEAKER) (test hemolyzed code = 358) GLUCOSE RANDOM 238 mg/dL 70-105 H (BEAKER) (test code = 652) CALCIUM (BEAKER) 9.5 mg/dL 8.4-10.2 (test code = 697) AST (SGOT) 36 U/L 5-34 H Specimen slight ly (BEAKER) (test hemolyzed code = 353) ALT (SGPT) 31 U/L 6-55 Specimen slight ly (BEAKER) (test hemolyzed code = 347) EGFR (BEAKER) 104 Interpretatio n of eGFR (test code = 1092) mL/min/1.[address] age Description sq m Result G1 [place] l or high >=90 G2 Mildly decreased 60-89 G3a Mildl y to moderately 45-5 9 G3b Moderately to s everely 30-44 G4 Sever ly decreased 15-29 G5 Kidney failure <15Repo rted eGFR is based on the CKD-EPI 2020 equation t hat does not use a race coefficientEsti mated GFR is not as accur ate as Creatinine Estefani lorenzo in predicting glom erular filtration rate . Estimated GFR is not appl icable for dialysis patien ts Control Systems Specialist ID - MELANIE WPROTHROMBIN TIME/[id number] 04:23:40 Test Item Value Reference Range Interpretation Comments PROTIME (BEAKER) 14.9 seconds 11.9-14.2 H (test code = 759) INR (BEAKER) (test 1.19 See_Comment [Automat ed message] code = 370) The system [employer] generated this result transmitted ref erence range: <=5.90. The reference range was not used to int erpret this result as normal/abnormal . RECOMMENDED COUMADIN/WARFARIN INR THERAPY RANGESSTANDARD DOSE: 2.0 - 3.0 Includes: PROPHYLAXIS for venous thrombosis, systemic embolization; TREATMENT for venous thrombosis and/or pulmonary embolus.HIGH RISK: Target INR is 2.5-3.5 for patients with mechanical heart valves.CBC W/PLT COUNT & AUTO [id number] 04:00:34 Test Item Value Reference Range Interpretation Comments WHITE BLOOD CELL COUNT (BEAKER) 5.4 K/ L 3.5-10.5 (test code = 775) RED BLOOD CELL COUNT (BEAKER) 3.00 M/ L 4.63-6.08 L (test code = 761) HEMOGLOBIN (BEAKER) (test code = 8.8 GM/DL 13.7-17.5 L 410) HEMATOCRIT (BEAKER) (test code = 27.1 % 40.1-51.0 L 411) MEAN CORPUSCULAR VOLUME (BEAKER) 90.3 fL 79.0-92.2 (test code = 753) MEAN CORPUSCULAR HEMOGLOBIN 29.3 pg 25.7-32.2 (BEAKER) (test code = 751) MEAN CORPUSCULAR HEMOGLOBIN CONC 32.5 GM/DL 32.3-36.5 (BEAKER) (test code = 752) RED CELL DISTRIBUTION WIDTH 17.1 % 11.6-14.4 H (BEAKER) (test code = 412) PLATELET COUNT (BEAKER) (test code 94 K/CU MM 150-450 L = 756) MEAN PLATELET VOLUME (BEAKER) 11.5 fL 9.4-12.4 (test code = 754) NUCLEATED RED BLOOD CELLS (BEAKER) 0 /100 WBC 0-0 (test code = 413) NEUTROPHILS RELATIVE PERCENT 70 % (BEAKER) (test code = 429) LYMPHOCYTES RELATIVE PERCENT 16 % (BEAKER) (test code = 430) MONOCYTES RELATIVE PERCENT 10 % (BEAKER) (test code = 431) EOSINOPHILS RELATIVE PERCENT 3 % (BEAKER) (test code = 432) BASOPHILS RELATIVE PERCENT 0 % (BEAKER) (test code = 437) NEUTROPHILS ABSOLUTE COUNT 3.76 K/ L 1.78-5.38 (BEAKER) (test code = 670) LYMPHOCYTES ABSOLUTE COUNT 0.87 K/ L 1.32-3.57 L (BEAKER) (test code = 414) MONOCYTES ABSOLUTE COUNT (BEAKER) 0.53 K/ L 0.30-0.82 (test code = 415) EOSINOPHILS ABSOLUTE COUNT 0.17 K/ L 0.04-0.54 (BEAKER) (test code = 416) BASOPHILS ABSOLUTE COUNT (BEAKER) 0.02 K/ L 0.01-0.08 (test code = 417) IMMATURE GRANULOCYTES-RELATIVE 0 % 0-1 PERCENT (BEAKER) (test code = 2801) POCT-GLUCOSE [id number] 22:32:07 Test Item Value Reference Range Interpretation Comments POC-GLUCOSE METER 227 mg/dL 70-110 H : TESTED A T [facility] 6720 (BEAKER) (test code = [place], 1538) [address]: Control Systems Specialist/Techni edwige ID = [id number] for Isamar Brunson POCT-GLUCOSE [id number] 15:48:32 Test Item Value Reference Range Interpretation Comments POC-GLUCOSE METER 193 mg/dL 70-110 H : TESTED A T [facility] 6720 (CHRISTIANO) (test code = [place], 1538) [address]: Control Systems Specialist/Techni edwige ID = [id number] for Gautam Newsome MR, ABDOMEN, [id number] 13:14:00Please perform with liver protocol/eovist Unlisted Reason for Exam - Click Yes and Enter Reason Below->Yes Unlisted Reason for Exam->[facility]rhosis [facility] : 1965 Sex: MFINALREPORT TECHNIQUE: MRI of the abdomen WITHOUT and WITH intravenous contrast. INDICATION: Unlisted Reason for ExamCirrhosis. COMPARISON: Ultrasound from 06/28/2022. FINDINGS: LOWER THORAX: Unremarkable. LIVER: The liver contour is nodular. The increased interstitial T2 weighted signalin the liver is most likely due to fibrosis. No focal hepatic lesions. BILIARY: The gallbladder is di stended and contains sludge, but there is no significant pericholecystic inflammation. No biliary ductal dilatation or filling defect.SPLEEN: 17.8 cm splenomegaly.PANCREAS: No focal masses or ductal dilatation. Accessory duct of Santorini. ADRENALS: No adrenal nodules.KIDNEYS/URETERS: No hydronephrosis or solid mass lesions. A right upper pole some renal cyst measures 2.5 cm. A right interpolar simple renal cyst measures 0.7 cm. No follow-up imaging is recommended for this finding. PERITONEUM/RETROPERITONEUM: Trace perihepatic ascites.LYMPH NODES: No lymphadenopathy.VESSELS: Conventional hepatic arterial anatomy. There are likely small esophageal varices. GI TRACT: No distention or wall thickening. Mild diverticula cyst of the left colon. BONES AND SOFT TISSUES: Unremarkable. IMPRESSION: 1.No suspicious focal hepatic lesion 2.Cirrhosis with sequelae of portal hypertension including splenomegaly and small esophageal varices. 3.The gallbladder is distended and contains sludge. No pericholecystic inflammation to suggest acute cholecystitis Signed: Cinthia Rogers MDReport Verified Date/Time: 07/01/2022 13:14:01 Reading Location: [facility] C013Y CT Body Reading Room POCT-GLUCOSE [id number] 11:27:22 Test Item Value Reference Range Interpretation Comments POC-GLUCOSE METER 159 mg/dL 70-110 H : TESTED A T [facility] 6720 (BEAKER) (test code = [facility], 1538) [address]: Control Systems Specialist/Techni edwige ID = [id number] for Gautam Newsome POCT-GLUCOSE [id number] 07:51:19 Test Item Value Reference Range Interpretation Comments POC-GLUCOSE METER 145 mg/dL 70-110 H : TESTED A T [facility] 6720 (BEAKER) (test code = [facility], 1538) [address]: Control Systems Specialist/Techni edwige ID = [id number] for Gautam Newsome POCT-GLUCOSE [id number] 06:42:08 Test Item Value Reference Range Interpretation Comments POC-GLUCOSE METER 148 mg/dL 70-110 H : TESTED A T [facility] 6720 (BEAKER) (test code = [facility], 1538) [address]: Control Systems Specialist/Techni edwige ID = [id number] for VENU TRAVIS COMPREHENSIVE METABOLIC [id number] 05:11:23 Test Item Value Reference Range Interpretation Comments TOTAL PROTEIN 5.9 gm/dL 6.0-8.3 L (BEAKER) (test code = 770) ALBUMIN (BEAKER) 3.1 g/dL 3.5-5.0 L (test code = 1145) ALKALINE 116 U/L 40-150 PHOSPHATASE (BEAKER) (test code = 346) BILIRUBIN TOTAL 1.2 mg/dL 0.2-1.2 (BEAKER) (test code = 377) SODIUM (BEAKER) 134 meq/L 136-145 L (test code = 381) POTASSIUM (BEAKER) 3.8 meq/L 3.5-5.1 (test code = 379) CHLORIDE (BEAKER) 102 meq/L 98-107 (test code = 382) CO2 (BEAKER) (test 25 meq/L 22-29 code = 355) BLOOD UREA 4 mg/dL 7-21 L NITROGEN (BEAKER) (test code = 354) CREATININE 0.75 mg/dL 0.57-1.25 (BEAKER) (test code = 358) GLUCOSE RANDOM 175 mg/dL 70-105 H (BEAKER) (test code = 652) CALCIUM (BEAKER) 8.9 mg/dL 8.4-10.2 (test code = 697) AST (SGOT) 41 U/L 5-34 H (BEAKER) (test code = 353) ALT (SGPT) 31 U/L 6-55 (BEAKER) (test code = 347) EGFR (BEAKER) 105 Interpretatio n of eGFR (test code = 1092) mL/min/1.[address] age Description sq m Result G1 [place] l or high >=90 G2 Mildly decreased 60-89 G3a Mild ly to moderately 45-5 9 G3b Moderately to s everely 30-44 G4 Severl y decreased 15-29 G5 Kidney failure <15Reported eGF R is based on the CKD-EPI 2021 equation that d oes not use a race coefficientEsti mated GFR is not as accur ate as Creatinine Estefani lorenzo in predicting glom erular filtration rate . Estimated GFR is not appl icable for dialysis patien ts Control Systems Specialist ID - PIAYA LCBC W/PLT COUNT & AUTO [id number] 04:56:15 Test Item Value Reference Range Interpretation Comments WHITE BLOOD CELL COUNT (BEAKER) 3.9 K/ L 3.5-10.5 (test code = 775) RED BLOOD CELL COUNT (BEAKER) 2.46 M/ L 4.63-6.08 L (test code = 761) HEMOGLOBIN (BEAKER) (test code = 7.4 GM/DL 13.7-17.5 L 410) HEMATOCRIT (BEAKER) (test code = 22.7 % 40.1-51.0 L 411) MEAN CORPUSCULAR VOLUME (BEAKER) 92.3 fL 79.0-92.2 H (test code = 753) MEAN CORPUSCULAR HEMOGLOBIN 30.1 pg 25.7-32.2 (BEAKER) (test code = 751) MEAN CORPUSCULAR HEMOGLOBIN CONC 32.6 GM/DL 32.3-36.5 (BEAKER) (test code = 752) RED CELL DISTRIBUTION WIDTH 16.7 % 11.6-14.4 H (BEAKER) (test code = 412) PLATELET COUNT (BEAKER) (test code 74 K/CU MM 150-450 L = 756) MEAN PLATELET VOLUME (BEAKER) 10.8 fL 9.4-12.4 (test code = 754) NUCLEATED RED BLOOD CELLS (BEAKER) 0 /100 WBC 0-0 (test code = 413) NEUTROPHILS RELATIVE PERCENT 58 % (BEAKER) (test code = 429) LYMPHOCYTES RELATIVE PERCENT 24 % (BEAKER) (test code = 430) MONOCYTES RELATIVE PERCENT 12 % (BEAKER) (test code = 431) EOSINOPHILS RELATIVE PERCENT 5 % (BEAKER) (test code = 432) BASOPHILS RELATIVE PERCENT 1 % (BEAKER) (test code = 437) NEUTROPHILS ABSOLUTE COUNT 2.25 K/ L 1.78-5.38 (BEAKER) (test code = 670) LYMPHOCYTES ABSOLUTE COUNT 0.93 K/ L 1.32-3.57 L (BEAKER) (test code = 414) MONOCYTES ABSOLUTE COUNT (BEAKER) 0.46 K/ L 0.30-0.82 (test code = 415) EOSINOPHILS ABSOLUTE COUNT 0.20 K/ L 0.04-0.54 (BEAKER) (test code = 416) BASOPHILS ABSOLUTE COUNT (BEAKER) 0.02 K/ L 0.01-0.08 (test code = 417) IMMATURE GRANULOCYTES-RELATIVE 0 % 0-1 PERCENT (BEAKER) (test code = 2801) PROTHROMBIN TIME/[id number] 04:37:26 Test Item Value Reference Range Interpretation Comments PROTIME (BEAKER) 16.1 seconds 11.9-14.2 H (test code = 759) INR (BEAKER) (test 1.38 See_Comment [Automat ed message] code = 370) The system [employer] generated this result transmitted ref erence range: <=5.90. The reference range was not used to int erpret this result as normal/abnormal . RECOMMENDED COUMADIN/WARFARIN INR THERAPY RANGESSTANDARD DOSE: 2.0 - 3.0 Includes: PROPHYLAXIS for venous thrombosis, systemic embolization; TREATMENT for venous thrombosis and/or pulmonary embolus.HIGH RISK: Target INR is 2.5-3.5 for patients with mechanical heart valves.POCT-GLUCOSE [id number] 23:53:01 Test Item Value Reference Range Interpretation Comments POC-GLUCOSE METER 187 mg/dL 70-110 H : TESTED A T [facility] 6720 (BEAKER) (test [facility] = [facility], 1538) [address]: Control Systems Specialist/Techni edwige ID = [id number] for Naila Parsons POCT-GLUCOSE [id number] 17:11:19 Test Item Value Reference Range Interpretation Comments POC-GLUCOSE METER 160 mg/dL 70-110 H : TESTED A T [facility] 6720 (BEAKER) (test code [facility], = 1538) 18736: Control Systems Specialist/Techni edwige ID = [id number] for LUIS ALFREDOS ONBASILE POCT-GLUCOSE [id number] 13:20:03 Test Item Value Reference Range Interpretation Comments POC-GLUCOSE METER 249 mg/dL 70-110 H : TESTED A T [facility] 6720 (BEAKER) (test code [facility], = 1538) 35344: Control Systems Specialist/Techni edwige ID = [id number] for WILS ON, SHASTANIE THROMBOELASTOGRAPH (TEG)2022-06-30 09:19:46 Test Item Value Reference Range Interpretation Comments TEG ACTIVATED CLOTTING TIME 4.4 minutes 4.0-7.0 (BEAKER) (test code = 1407) TEG FIBRINOGEN ACTIVITY (BEAKER) 62.3 degrees 61.0-73.0 (test code = 1408) TEG PLT. AGGREGATION (BEAKER) 51.1 MM 55.0-65.0 L (test code = 1409) TEG FIBRINOLYSIS (BEAKER) (test 1.4 % 0.0-5.0 code = 1410) [facility]GH ACTIVATED CLOTTING TIME 4.2 minutes 4.0-7.0 (BEAKER) (test code = 1411) [facility] FIBRINOGEN ACTIVITY (BEAKER) 63.4 degrees 61.0-73.0 (test code = 1412) TGH PLT. AGGREGATION (BEAKER) 49.6 MM 55.0-65.0 L (test code = 1413) [facility]GH FIBRINOLYSIS (BEAKER) (test 3.1 % 0.0-5.0 code = 1414) COMPREHENSIVE METABOLIC [id number] 08:27:43 Test Item Value Reference Range Interpretation Comments TOTAL PROTEIN 6.1 gm/dL 6.0-8.3 (BEAKER) (test code = 770) ALBUMIN (BEAKER) 3.2 g/dL 3.5-5.0 L (test code = 1145) ALKALINE 72 U/L 40-150 PHOSPHATASE (BEAKER) (test code = 346) BILIRUBIN TOTAL 0.8 mg/dL 0.2-1.2 (BEAKER) (test code = 377) SODIUM (BEAKER) 136 meq/L 136-145 (test code = 381) POTASSIUM (BEAKER) 4.0 meq/L 3.5-5.1 (test code = 379) CHLORIDE (BEAKER) 103 meq/L 98-107 (test code = 382) CO2 (BEAKER) (test 27 meq/L 22-29 code = 355) BLOOD UREA 5 mg/dL 7-21 L NITROGEN (BEAKER) (test code = 354) CREATININE 0.70 mg/dL 0.57-1.25 (BEAKER) (test code = 358) GLUCOSE RANDOM 165 mg/dL 70-105 H (BEAKER) (test code = 652) CALCIUM (BEAKER) 8.9 mg/dL 8.4-10.2 (test code = 697) AST (SGOT) 21 U/L 5-34 (BEAKER) (test code = 353) ALT (SGPT) 30 U/L 6-55 (BEAKER) (test code = 347) EGFR (BEAKER) 107 Interpretatio n of eGFR (test code = 1092) mL/min/1.[address] age Description sq m Result G1 [place] l or high >=90 G2 Mildly decreased 60-89 G3a Mildl y to moderately 45-5 9 G3b Moderately to s everely 30-44 G4 Severl y decreased 15-29 G5 Kidney failure <15Reported eGF R is based on the CKD-EPI 2020 equation that d oes not use a race coefficientEsti mated GFR is not as accur ate as Creatinine Estefani bj in predicting glom erular filtration rate . Estimated GFR is not appl icable for dialysis patien ts Control Systems Specialist ID - CHRISTIANA [id number] 06:38:39 Test Item Value Reference Range Interpretation Comments FIBRINOGEN LEVEL (BEAKER) (test 312 mg/dl 225-434 code = 658) PROTHROMBIN TIME/[id number] 06:38:32 Test Item Value Reference Range Interpretation Comments PROTIME (BEAKER) 16.9 seconds 11.9-14.2 H (test code = 759) INR (BEAKER) (test 1.46 See_Comment [Automat ed message] code = 370) The system [employer] generated this result transmitted ref erence range: <=5.90. The reference range was not used to int erpret this result as normal/abnormal . RECOMMENDED COUMADIN/WARFARIN INR THERAPY RANGESSTANDARD DOSE: 2.0 - 3.0 Includes: PROPHYLAXIS for venous thrombosis, systemic embolization; TREATMENT for venous thrombosis and/or pulmonary embolus.HIGH RISK: Target INR is 2.5-3.5 for patients with mechanical heart valves.PROTHROMBIN TIME/[id number] 06:38:14 Test Item Value Reference Range Interpretation Comments PROTIME (BEAKER) 16.9 seconds 11.9-14.2 H (test code = 759) INR (BEAKER) (test 1.47 See_Comment [Automat ed message] code = 370) The system [employer] generated this result transmitted ref erence range: <=5.90. The reference range was not used to int erpret this result as normal/abnormal . RECOMMENDED COUMADIN/WARFARIN INR THERAPY RANGESSTANDARD DOSE: 2.0 - 3.0 Includes: PROPHYLAXIS for venous thrombosis, systemic embolization; TREATMENT for venous thrombosis and/or pulmonary embolus.HIGH RISK: Target INR is 2.5-3.5 for patients with mechanical heart valves.CBC W/PLT COUNT & AUTO [id number] 06:32:12 Test Item Value Reference Range Interpretation Comments WHITE BLOOD CELL COUNT (BEAKER) 3.3 K/ L 3.5-10.5 L (test code = 775) RED BLOOD CELL COUNT (BEAKER) 2.61 M/ L 4.63-6.08 L (test code = 761) HEMOGLOBIN (BEAKER) (test code = 7.5 GM/DL 13.7-17.5 L 410) HEMATOCRIT (BEAKER) (test code = 23.6 % 40.1-51.0 L 411) MEAN CORPUSCULAR VOLUME (BEAKER) 90.4 fL 79.0-92.2 (test code = 753) MEAN CORPUSCULAR HEMOGLOBIN 28.7 pg 25.7-32.2 (BEAKER) (test code = 751) MEAN CORPUSCULAR HEMOGLOBIN CONC 31.8 GM/DL 32.3-36.5 L (BEAKER) (test code = 752) RED CELL DISTRIBUTION WIDTH 16.6 % 11.6-14.4 H (BEAKER) (test code = 412) PLATELET COUNT (BEAKER) (test code 68 K/CU MM 150-450 L = 756) MEAN PLATELET VOLUME (BEAKER) 10.3 fL 9.4-12.4 (test code = 754) NUCLEATED RED BLOOD CELLS (BEAKER) 0 /100 WBC 0-0 (test code = 413) NEUTROPHILS RELATIVE PERCENT 59 % (BEAKER) (test code = 429) LYMPHOCYTES RELATIVE PERCENT 24 % (BEAKER) (test code = 430) MONOCYTES RELATIVE PERCENT 11 % (BEAKER) (test code = 431) EOSINOPHILS RELATIVE PERCENT 5 % (BEAKER) (test code = 432) BASOPHILS RELATIVE PERCENT 1 % (BEAKER) (test code = 437) NEUTROPHILS ABSOLUTE COUNT 1.94 K/ L 1.78-5.38 (BEAKER) (test code = 670) LYMPHOCYTES ABSOLUTE COUNT 0.78 K/ L 1.32-3.57 L (BEAKER) (test code = 414) MONOCYTES ABSOLUTE COUNT (BEAKER) 0.36 K/ L 0.30-0.82 (test code = 415) EOSINOPHILS ABSOLUTE COUNT 0.15 K/ L 0.04-0.54 (BEAKER) (test code = 416) BASOPHILS ABSOLUTE COUNT (BEAKER) 0.02 K/ L 0.01-0.08 (test code = 417) IMMATURE GRANULOCYTES-RELATIVE 1 % 0-1 PERCENT (BEAKER) (test code = 2801) POCT-GLUCOSE [id number] 06:10:10 Test Item Value Reference Range Interpretation Comments POC-GLUCOSE METER 153 mg/dL 70-110 H : TESTED A T [facility] 6720 (BEAKER) (test code = [facility], 153) [address]: Control Systems Specialist/Techni edwige ID = [id number] for Ne lson (contract), Colleen xis POCT-GLUCOSE [id number] 02:21:17 Test Item Value Reference Range Interpretation Comments POC-GLUCOSE METER 170 mg/dL 70-110 H : TESTED A T [facility] 6720 ([facility]) (test code = [facility], 153) [address]: Control Systems Specialist/Techni edwige ID = [id number] for Sp tasia (contract), Sandi a POCT-GLUCOSE [id number] 00:34:09 Test Item Value Reference Range Interpretation Comments POC-GLUCOSE METER 208 mg/dL 70-110 H : TESTED A T [facility] 6720 ([facility]) (test code = [facility], 153) [address]: Control Systems Specialist/Techni edwige ID = [id number] for Ne lson (contract), Colleen xis POCT-GLUCOSE [id number] 17:59:46 Test Item Value Reference Range Interpretation Comments POC-GLUCOSE METER 236 mg/dL 70-110 H : Notified RN/MD: ([facility]) (test code = TESTED AT [place] [address] 1538) [facility], [address]: Control Systems Specialist/Techni edwige ID = [id number] for MITCHELL MARIAH, CLAUS HEMOGLOBIN AND [id number] 17:53:09 Test Item Value Reference Range Interpretation Comments HEMOGLOBIN ([facility]) (test code = 7.7 GM/DL 13.7-17.5 L 410) HEMATOCRIT ([facility]) (test code = 23.8 % 40.1-51.0 L 411) Control Systems Specialist ID - [id number] C PCR, [id number] 15:46:48 Test Item Value Reference Range Interpretation Comments HCV RESULT COMPONENT HCV RNA not detected HCV RNA not detected ([facility]) (test code = 2699) This test uses a Real-Time Polymerase Chain Reaction (RT-PCR) methodology and was performed using YOU Ampliprep/YOU TaqMan HCV test kit version 2.0 ([employer]).Reportable range for this assay is 15 - 100,000,000 IU per mL (1.18 - 8.00 Log IU/mL).2D Echo W/Doppler(CW/PW/Color)2022-06-29 14:39:50 Ejection FractionSLEH ECHO [facility]/Doppler(CW/PW/Color)2022-06-29 14:39:50Ejection FractionSLEH ECHO HEARTLAB [facility] 2022-06-29 13:21:00 Test Item Value Reference Range Interpretation Comments CROSSMATCH (test code = 2264) COMPATIBLE Unit ABO (test code = A Neg 8883853) UNIT NUMBER (test code = [id number] 934-0) Status (test code = 8699268) READY Blood Bank Product (test code RED BLOOD CELLS = 2263) PRODUCT CODE (test code = [id number] 933-2) [facility] [id number] 13:21:00 Test Item Value Reference Range Interpretation Comments CROSSMATCH (test code = 2264) COMPATIBLE Unit ABO (test code = A Neg 9823909) UNIT NUMBER (test code = [id number] 934-0) Status (test code = 3628728) READY Blood Bank Product (test code RED BLOOD CELLS = 2263) PRODUCT CODE (test code = [id number] 933-2) [facility] [id number] 12:30:58 Test Item Value Reference Range Interpretation Comments POC-GLUCOSE METER 299 mg/dL 70-110 H : Notified RN/MD: (CHRISTIANO) (test code = TESTED AT [facility] 8381 1531) [facility], [address]: Control Systems Specialist/Techni edwige ID = [id number] for MITCHELL YES, CLAUS CBC W/PLT COUNT & AUTO [id number] 10:56:05 Test Item Value Reference Range Interpretation Comments WHITE BLOOD CELL COUNT (BEAKER) 3.8 K/ L 3.5-10.5 (test code = 775) RED BLOOD CELL COUNT (BEAKER) 2.58 M/ L 4.63-6.08 L (test code = 761) HEMOGLOBIN (BEAKER) (test code = 7.6 GM/DL 13.7-17.5 L 410) HEMATOCRIT (BEAKER) (test code = 23.3 % 40.1-51.0 L 411) MEAN CORPUSCULAR VOLUME (BEAKER) 90.3 fL 79.0-92.2 (test code = 753) MEAN CORPUSCULAR HEMOGLOBIN 29.5 pg 25.7-32.2 (BEAKER) (test code = 751) MEAN CORPUSCULAR HEMOGLOBIN CONC 32.6 GM/DL 32.3-36.5 (BEAKER) (test code = 752) RED CELL DISTRIBUTION WIDTH 16.8 % 11.6-14.4 H (BEAKER) (test code = 412) PLATELET COUNT (BEAKER) (test code 81 K/CU MM 150-450 L = 756) MEAN PLATELET VOLUME (BEAKER) 11.3 fL 9.4-12.4 (test code = 754) NUCLEATED RED BLOOD CELLS (BEAKER) 0 /100 WBC 0-0 (test code = 413) NEUTROPHILS RELATIVE PERCENT 52 % (BEAKER) (test code = 429) LYMPHOCYTES RELATIVE PERCENT 30 % (BEAKER) (test code = 430) MONOCYTES RELATIVE PERCENT 12 % (BEAKER) (test code = 431) EOSINOPHILS RELATIVE PERCENT 5 % (BEAKER) (test code = 432) BASOPHILS RELATIVE PERCENT 1 % (BEAKER) (test code = 437) NEUTROPHILS ABSOLUTE COUNT 2.00 K/ L 1.78-5.38 (BEAKER) (test code = 670) LYMPHOCYTES ABSOLUTE COUNT 1.13 K/ L 1.32-3.57 L (BEAKER) (test code = 414) MONOCYTES ABSOLUTE COUNT (BEAKER) 0.46 K/ L 0.30-0.82 (test code = 415) EOSINOPHILS ABSOLUTE COUNT 0.19 K/ L 0.04-0.54 (BEAKER) (test code = 416) BASOPHILS ABSOLUTE COUNT (BEAKER) 0.03 K/ L 0.01-0.08 (test code = 417) IMMATURE GRANULOCYTES-RELATIVE 0 % 0-1 PERCENT (BEAKER) (test code = 2801) POCT-GLUCOSE [id number] 06:41:24 Test Item Value Reference Range Interpretation Comments POC-GLUCOSE METER 186 mg/dL 70-110 H : TESTED A T [facility] 6720 (BEAKER) (test code = [place], 1538) [address]: Control Systems Specialist/Techni edwige ID = [id number] for Karol sewell (contract)Colleen CBC (HEMOGRAM ONLY)2022-06-29 05:55:27 Test Item Value Reference Range Interpretation Comments WHITE BLOOD CELL COUNT (BEAKER) 4.0 K/ L 3.5-10.5 (test code = 775) RED BLOOD CELL COUNT (BEAKER) 2.52 M/ L 4.63-6.08 L (test code = 761) HEMOGLOBIN (BEAKER) (test code = 7.5 GM/DL 13.7-17.5 L 410) HEMATOCRIT (BEAKER) (test code = 23.6 % 40.1-51.0 L 411) MEAN CORPUSCULAR VOLUME (BEAKER) 93.7 fL 79.0-92.2 H (test code = 753) MEAN CORPUSCULAR HEMOGLOBIN 29.8 pg 25.7-32.2 (BEAKER) (test code = 751) MEAN CORPUSCULAR HEMOGLOBIN CONC 31.8 GM/DL 32.3-36.5 L (BEAKER) (test code = 752) RED CELL DISTRIBUTION WIDTH 16.6 % 11.6-14.4 H (BEAKER) (test code = 412) PLATELET COUNT (BEAKER) (test code 81 K/CU MM 150-450 L = 756) MEAN PLATELET VOLUME (BEAKER) 11.2 fL 9.4-12.4 (test code = 754) NUCLEATED RED BLOOD CELLS (BEAKER) 0 /100 WBC 0-0 (test code = 413) CALCIUM, [id number] 05:41:59 Test Item Value Reference Range Interpretation Comments CALCIUM IONIZED (BEAKER) (test 1.16 mmol/L 1.12-1.27 code = 698) PH, BLOOD (BEAKER) (test code = 7.34 1810) [id number] 05:30:10 Test Item Value Reference Range Interpretation Comments MAGNESIUM (BEAKER) (test code = 1.8 mg/dL 1.6-2.6 627) Control Systems Specialist ID - CHRISTIANA MCOMPREHENSIVE METABOLIC [id number] 05:30:09 Test Item Value Reference Range Interpretation Comments TOTAL PROTEIN 5.9 gm/dL 6.0-8.3 L (BEAKER) (test code = 770) ALBUMIN (BEAKER) 3.1 g/dL 3.5-5.0 L (test code = 1145) ALKALINE 49 U/L 40-150 PHOSPHATASE (BEAKER) (test code = 346) BILIRUBIN TOTAL 0.8 mg/dL 0.2-1.2 (BEAKER) (test code = 377) SODIUM (BEAKER) 135 meq/L 136-145 L (test code = 381) POTASSIUM (BEAKER) 4.2 meq/L 3.5-5.1 (test code = 379) CHLORIDE (BEAKER) 103 meq/L 98-107 (test code = 382) CO2 (BEAKER) (test 26 meq/L 22-29 code = 355) BLOOD UREA 10 mg/dL 7-21 NITROGEN (BEAKER) (test code = 354) CREATININE 0.77 mg/dL 0.57-1.25 (BEAKER) (test code = 358) GLUCOSE RANDOM 189 mg/dL 70-105 H (BEAKER) (test code = 652) CALCIUM (BEAKER) 8.7 mg/dL 8.4-10.2 (test code = 697) AST (SGOT) 19 U/L 5-34 (BEAKER) (test code = 353) ALT (SGPT) 16 U/L 6-55 (BEAKER) (test code = 347) EGFR (BEAKER) 105 Interpretatio n of eGFR (test code = 1092) mL/min/1.[address] age Description sq m Result G1 [place] l or high >=90 G2 Mildly decreased 60-89 G3a Mildl y to moderately 45-5 9 G3b Moderately to s everely 30-44 G4 Severl y decreased 15-29 G5 Kidney failure <15Reported eGF R is based on the CKD-EPI 2021 equation that d oes not use a race coefficientEsti mated GFR is not as accur ate as Creatinine Estefani lorenzo in predicting glom erular filtration rate . Estimated GFR is not appl icable for dialysis patien ts Control Systems Specialist ID - CHRISTIANA [id number] 05:03:31 Test Item Value Reference Range Interpretation Comments PARTIAL THROMBOPLASTIN TIME 33.4 seconds 22.5-36.0 (BEAKER) (test code = 760) PROTHROMBIN TIME/[id number] 05:02:32 Test Item Value Reference Range Interpretation Comments PROTIME (BEAKER) 15.7 seconds 11.9-14.2 H (test code = 759) INR (BEAKER) (test 1.28 See_Comment [Automat ed message] code = 370) The system [employer] generated this result transmitted ref erence range: <=5.90. The reference range was not used to int erpret this result as normal/abnormal . RECOMMENDED COUMADIN/WARFARIN INR THERAPY RANGESSTANDARD DOSE: 2.0 - 3.0 Includes: PROPHYLAXIS for venous thrombosis, systemic embolization; TREATMENT for venous thrombosis and/or pulmonary embolus.HIGH RISK: Target INR is 2.5-3.5 for patients with mechanical heart valves.POCT-GLUCOSE [id number] 22:37:17 Test Item Value Reference Range Interpretation Comments POC-GLUCOSE METER 142 mg/dL 70-110 H : TESTED A T [facility] 6720 (BEAKER) (test code = [facility], 1538) [address]: Control Systems Specialist/Techni edwige ID = [id number] for Karol sewell (contract)Colleen POCT-GLUCOSE [id number] 16:13:39 Test Item Value Reference Range Interpretation Comments POC-GLUCOSE METER 188 mg/dL 70-110 H : TESTED A T [facility] 6720 (BEAKER) (test code = [facility], 1538) [address]: Control Systems Specialist/Techni edwige ID = [id number] for Ina Meredith ANTI-NUCLEAR ANTIBODY (BEATA)2022-06-28 14:16:56 Test Item Value Reference Range Interpretation Comments ANTI-NUCLEAR ANTIBODY (BEATA) (BEAKER) Negative Negative (test code = 418) Test performed by IFA method.Test performed by IFA method.U/S, ABDOMINAL, [id number] 13:44:00Reason for exam:->Cirrhosis [facility] CENTERName: ONESIMO INTERIANO : 1965 Sex: MFINALREPORT TECHNIQUE: Grayscale ultrasound of the abdomen. INDICATION: Cirrhosis. COMPARISON: None. FINDINGS: MIDLINE VASCULATURE: The visualized inferior vena cava is unremarkable. The maximum visualized aortic diameter is 2.8 cm. LIVER: Mildly nodular liver contour. No focal lesions. The main portal vein is patent and measures 1.4 cm in diameter. BILIARY:Gallbladder: The gallbladder contains sludge. No definite stones are visualized. No gallbladder wall thickening, pericholecysticfluid, or distention. Negative sonographic Avila sign.Common bile duct measures 0.5 cm, within normal limits. No intrahepatic biliary ductal dilatation. PANCREAS: Incompletely visualized due to overlying bowel gas. SPLEEN: The spleen is enlarged at 16.5 cm in length. PERITONEUM: Trace ascites. KIDNEYS: Normal in size bilaterally. No hydronephrosis. No sonographically evident solid mass lesion. IMPRESSION: 1.Cirrhosis with sequelae of portal hypertension including trace ascites and moderate splenomegaly 2.Sludge in the gallbladder without acute cholecystitis Signed: Cinthia Rogers MDRort Verified Date/Time: 06/28/2022 13:44:08 HEMOGLOBIN AND [id number] 11:24:21 Test Item Value Reference Range Interpretation Comments HEMOGLOBIN (BEAKER) (test code = 7.8 GM/DL 13.7-17.5 L 410) HEMATOCRIT (BEAKER) (test code = 23.4 % 40.1-51.0 L 411) Control Systems Specialist ID - [id number] ID - [id number]-GLUCOSE [id number] 10:48:53 Test Item Value Reference Range Interpretation Comments POC-GLUCOSE METER 132 mg/dL 70-110 H : TESTED A T [facility] 6720 (Breakout StudiosAKER) (test code = [place], 1538) [address]: Control Systems Specialist/Techni edwige ID = [id number] for Vu margot, Chelsi POCT-GLUCOSE [id number] 09:02:39 Test Item Value Reference Range Interpretation Comments POC-GLUCOSE METER 147 mg/dL 70-110 H : TESTED A T [facility] 6720 (BEAKER) (test code = [place], 1538) [address]: Control Systems Specialist/Techni edwige ID = [id number] for Chelsi Joseph COMPREHENSIVE METABOLIC [id number] 06:41:05 Test Item Value Reference Range Interpretation Comments TOTAL PROTEIN 6.3 gm/dL 6.0-8.3 (BEAKER) (test code = 770) ALBUMIN (BEAKER) 3.2 g/dL 3.5-5.0 L (test code = 1145) ALKALINE 55 U/L 40-150 PHOSPHATASE (BEAKER) (test code = 346) BILIRUBIN TOTAL 0.9 mg/dL 0.2-1.2 (BEAKER) (test code = 377) SODIUM (BEAKER) 134 meq/L 136-145 L (test code = 381) POTASSIUM (BEAKER) 3.8 meq/L 3.5-5.1 (test code = 379) CHLORIDE (BEAKER) 101 meq/L 98-107 (test code = 382) CO2 (BEAKER) (test 24 meq/L 22-29 code = 355) BLOOD UREA 19 mg/dL 7-21 NITROGEN (BEAKER) (test code = 354) CREATININE 0.82 mg/dL 0.57-1.25 (BEAKER) (test code = 358) GLUCOSE RANDOM 136 mg/dL 70-105 H (BEAKER) (test code = 652) CALCIUM (BEAKER) 8.7 mg/dL 8.4-10.2 (test code = 697) AST (SGOT) 22 U/L 5-34 (BEAKER) (test code = 353) ALT (SGPT) 13 U/L 6-55 (BEAKER) (test code = 347) EGFR (BEAKER) 103 Interpretatio n of eGFR (test code = 1092) mL/min/1.[address] age Description sq m Result G1 [place] l or high >=90 G2 Mildly decreased 60-89 G3a Mildl y to moderately 45-5 9 G3b Moderately to s everely 30-44 G4 Severl y decreased 15-29 G5 Kidney failure <15Reported eGF R is based on the CKD-EPI 2021 equation that d oes not use a race coefficientEsti mated GFR is not as accur ate as Creatinine Estefani bj in predicting glom erular filtration rate . Estimated GFR is not appl icable for dialysis patien ts Control Systems Specialist ID - CHRISTIANA [id number] 06:41:05 Test Item Value Reference Range Interpretation Comments MAGNESIUM (BEAKER) (test code = 1.8 mg/dL 1.6-2.6 627) Control Systems Specialist ID - CHRISTIANA MCBC (HEMOGRAM ONLY)2022-06-28 06:37:04 Test Item Value Reference Range Interpretation Comments WHITE BLOOD CELL COUNT (BEAKER) 6.9 K/ L 3.5-10.5 (test code = 775) RED BLOOD CELL COUNT (BEAKER) 2.74 M/ L 4.63-6.08 L (test code = 761) HEMOGLOBIN (BEAKER) (test code = 8.3 GM/DL 13.7-17.5 L 410) HEMATOCRIT (BEAKER) (test code = 25.0 % 40.1-51.0 L 411) MEAN CORPUSCULAR VOLUME (BEAKER) 91.2 fL 79.0-92.2 (test code = 753) MEAN CORPUSCULAR HEMOGLOBIN 30.3 pg 25.7-32.2 (BEAKER) (test code = 751) MEAN CORPUSCULAR HEMOGLOBIN CONC 33.2 GM/DL 32.3-36.5 (BEAKER) (test code = 752) RED CELL DISTRIBUTION WIDTH 16.8 % 11.6-14.4 H (BEAKER) (test code = 412) PLATELET COUNT (BEAKER) (test 124 K/CU MM 150-450 L code = 756) MEAN PLATELET VOLUME (BEAKER) 11.0 fL 9.4-12.4 (test code = 754) NUCLEATED RED BLOOD CELLS 0 /100 WBC 0-0 (BEAKER) (test code = 413) [id number] 06:14:47 Test Item Value Reference Range Interpretation Comments PARTIAL THROMBOPLASTIN TIME 29.0 seconds 22.5-36.0 (BEAKER) (test code = 760) PROTHROMBIN TIME/[id number] 06:14:11 Test Item Value Reference Range Interpretation Comments PROTIME (BEAKER) 15.3 seconds 11.9-14.2 H (test code = 759) INR (BEAKER) (test 1.23 See_Comment [Automat ed message] code = 370) The system [employer] generated this result transmitted ref erence range: <=5.90. The reference range was not used to int erpret this result as normal/abnormal . RECOMMENDED COUMADIN/WARFARIN INR THERAPY RANGESSTANDARD DOSE: 2.0 - 3.0 Includes: PROPHYLAXIS for venous thrombosis, systemic embolization; TREATMENT for venous thrombosis and/or pulmonary embolus.HIGH RISK: Target INR is 2.5-3.5 for patients with mechanical heart valves.POCT-GLUCOSE [id number] 23:04:59 Test Item Value Reference Range Interpretation Comments POC-GLUCOSE METER 181 mg/dL 70-110 H : TESTED A T [facility] 6720 (BEAKER) (test code = [place], 1538) [address]: Control Systems Specialist/Techni edwige ID = [id number] for Meche Yousif [id number] 20:46:29 Test Item Value Reference Range Interpretation Comments FERRITIN (BEAKER) (test code = 59.05 ng/mL 5.00-275.00 361) Control Systems Specialist ID - ADMINHEPATITIS B CORE ANTIBODY, [id number] 20:12:45 Test Item Value Reference Range Interpretation Comments HEPATITIS B CORE TOTAL ANTIBODY Reactive Nonreactive A (BEAKER) (test code = 497) Control Systems Specialist ID - SEBAS LHEPATITIS B SURFACE [id number] 20:12:39 Test Item Value Reference Range Interpretation Comments HEPATITIS B SURFACE ANTIBODY 4789.9 mIU/mL <8.0 H (BEAKER) (test code = 647) Control Systems Specialist ID - SEBAS LOperator ID - SEBAS LHEMOGLOBIN AND [id number] 20:10:40 Test Item Value Reference Range Interpretation Comments HEMOGLOBIN (BEAKER) (test code = 8.0 GM/DL 13.7-17.5 L 410) HEMATOCRIT (BEAKER) (test code = 24.7 % 40.1-51.0 L 411) Control Systems Specialist ID - [id number] ID - [id number] B SURFACE [id number] 19:51:43 Test Item Value Reference Range Interpretation Comments HEPATITIS B SURFACE ANTIGEN (2) Nonreactive Nonreactive (BEAKER) (test code = 2585) Specimen is considered negative for HBsAg.HEPATITIS C [id number] 19:51:43 Test Item Value Reference Range Interpretation Comments HEPATITIS C ANTIBODY (BEAKER) Nonreactive Nonreactive (test code = 367) Control Systems Specialist ID - TEOVALENTINE LALPHA FETOPROTEIN (AFP), TUMOR [id number] 19:46:42 Test Item Value Reference Range Interpretation Comments ALPHA-FETOPROTEIN (BEAKER) (test code < ng/mL <10.0 = 1094) Control Systems Specialist ID Lis MULLEN LHEPATITIS A ANTIBODY, [id number] 19:20:02 Test Item Value Reference Range Interpretation Comments HEPATITIS A IGG ANTIBODY (BEAKER) Nonreactive Nonreactive (test code = 2797) Control Systems Specialist ID - SEBAS LHEPATITIS A ANTIBODY, [id number] 19:19:56 Test Item Value Reference Range Interpretation Comments HEPATITIS A IGM ANTIBODY (BEAKER) Nonreactive Nonreactive (test code = 498) Control Systems Specialist ID Lis MULLEN [id number]-9-[id number] 18:54:12 Test Item Value Reference Range Interpretation Comments ALPHA-1 ANTITRYPSIN 144.40 mg/dL 90.00-200.00 Specimen slightly (BEAKER) (test code = hemoly zed 502) Control Systems Specialist ID - SEBAS LIZETH, TIBC, % SAT. (WITHOUT FERRITIN)2022-06-27 18:53:30 Test Item Value Reference Range Interpretation Comments IRON (BEAKER) (test code = 547) 34.0 ug/dL 40.0-160.0 L TOTAL IRON BINDING CAPACITY 299 ug/dL 250-450 (BEAKER) (test code = 769) IRON % SATURATION (2) (BEAKER) 11 % 20-55 L (test code = 2590) Control Systems Specialist ID Lis MULLEN LPOCT-GLUCOSE [id number] 16:30:50 Test Item Value Reference Range Interpretation Comments POC-GLUCOSE METER 199 mg/dL 70-110 H : TESTED A T [facility] 6720 (BEAKER) (test code = [facility], 1538) [address]: Control Systems Specialist/Techni edwige ID = [id number] for Jaylen daviskarlaChelsi POCT-GLUCOSE [id number] 12:00:48 Test Item Value Reference Range Interpretation Comments POC-GLUCOSE METER 182 mg/dL 70-110 H : TESTED A T [facility] 6720 (BEAKER) (test code = [facility], 1538) [address]70: Control Systems Specialist/Techni edwige ID = [id number] for Nico Lakhani [id number] 11:47:33 Test Item Value Reference Range Interpretation Comments FIBRINOGEN LEVEL (BEAKER) (test 283 mg/dl 225-434 code = 658) HEMOGLOBIN AND [id number] 11:43:51 Test Item Value Reference Range Interpretation Comments HEMOGLOBIN (BEAKER) (test code = 9.5 GM/DL 13.7-17.5 L 410) HEMATOCRIT (BEAKER) (test code = 28.8 % 40.1-51.0 L 411) Control Systems Specialist ID - [id number]-GLUCOSE [id number] 06:17:14 Test Item Value Reference Range Interpretation Comments POC-GLUCOSE METER 207 mg/dL 70-110 H : [facility] (BEAKER) (test code = [place], 1538) [address]: Control Systems Specialist/Techni edwige ID = [id number] for MARIE VARGHESE COMPREHENSIVE METABOLIC [id number] 03:37:28 Test Item Value Reference Range Interpretation Comments TOTAL PROTEIN 6.2 gm/dL 6.0-8.3 (BEAKER) (test code = 770) ALBUMIN (BEAKER) 3.2 g/dL 3.5-5.0 L (test code = 1145) ALKALINE 54 U/L 40-150 PHOSPHATASE (BEAKER) (test code = 346) BILIRUBIN TOTAL 1.0 mg/dL 0.2-1.2 (BEAKER) (test code = 377) SODIUM (BEAKER) 137 meq/L 136-145 (test code = 381) POTASSIUM (BEAKER) 4.4 meq/L 3.5-5.1 (test code = 379) CHLORIDE (BEAKER) 105 meq/L 98-107 (test code = 382) CO2 (BEAKER) (test 26 meq/L 22-29 code = 355) BLOOD UREA 32 mg/dL 7-21 H NITROGEN (BEAKER) (test code = 354) CREATININE 0.85 mg/dL 0.57-1.25 (BEAKER) (test code = 358) GLUCOSE RANDOM 238 mg/dL 70-105 H (BEAKER) (test code = 652) CALCIUM (BEAKER) 9.0 mg/dL 8.4-10.2 (test code = 697) AST (SGOT) 19 U/L 5-34 (BEAKER) (test code = 353) ALT (SGPT) 18 U/L 6-55 (BEAKER) (test code = 347) EGFR (BEAKER) 102 Interpretatio n of eGFR (test code = 1092) mL/min/1.[address] age Description sq m Result G1 Alberta l or high >=90 G2 Mildly decreased 60-89 G3a Mildl y to moderately 45-5 9 G3b Moderately to s everely 30-44 G4 Severl y decreased 15-29 G5 Kidney failure <15Reported eGF R is based on the CKD-EPI 2020 equation that d oes not use a race coefficientEsti mated GFR is not as accur ate as Creatinine Estefani bj in predicting glom erular filtration rate . Estimated GFR is not appl icable for dialysis patien ts Control Systems Specialist ID - CHRISTIANA [id number] 03:37:28 Test Item Value Reference Range Interpretation Comments MAGNESIUM (BEAKER) (test code = 1.7 mg/dL 1.6-2.6 627) Control Systems Specialist ID - CHRISTIANA [id number] 03:27:04 Test Item Value Reference Range Interpretation Comments PARTIAL THROMBOPLASTIN TIME 29.6 seconds 22.5-36.0 (BEAKER) (test code = 760) PROTHROMBIN [id number] 03:26:26 Test Item Value Reference Range Interpretation Comments PROTIME (BEAKER) 16.5 seconds 11.9-14.2 H (test code = 759) INR (BEAKER) (test 1.42 See_Comment [Automat ed message] code = 370) The system [employer] generated this result transmitted ref erence range: <=5.90. The reference range was not used to int erpret this result as normal/abnormal . RECOMMENDED COUMADIN/WARFARIN INR THERAPY RANGESSTANDARD DOSE: 2.0 - 3.0 Includes: PROPHYLAXIS for venous thrombosis, systemic embolization; TREATMENT for venous thrombosis and/or pulmonary embolus.HIGH RISK: Target INR is 2.5-3.5 for patients with mechanical heart valves.CBC (HEMOGRAM ONLY)2022-06-27 03:12:22 Test Item Value Reference Range Interpretation Comments WHITE BLOOD CELL COUNT (BEAKER) 7.2 K/ L 3.5-10.5 (test code = 775) RED BLOOD CELL COUNT (BEAKER) 3.11 M/ L 4.63-6.08 L (test code = 761) HEMOGLOBIN (BEAKER) (test code = 9.0 GM/DL 13.7-17.5 L 410) HEMATOCRIT (BEAKER) (test code = 27.1 % 40.1-51.0 L 411) MEAN CORPUSCULAR VOLUME (BEAKER) 87.1 fL 79.0-92.2 (test code = 753) MEAN CORPUSCULAR HEMOGLOBIN 28.9 pg 25.7-32.2 (BEAKER) (test code = 751) MEAN CORPUSCULAR HEMOGLOBIN CONC 33.2 GM/DL 32.3-36.5 (BEAKER) (test code = 752) RED CELL DISTRIBUTION WIDTH 16.6 % 11.6-14.4 H (BEAKER) (test code = 412) PLATELET COUNT (BEAKER) (test 119 K/CU MM 150-450 L code = 756) MEAN PLATELET VOLUME (BEAKER) 10.3 fL 9.4-12.4 (test code = 754) NUCLEATED RED BLOOD CELLS 0 /100 WBC 0-0 (BEAKER) (test code = 413) HEMOGLOBIN AND [id number] 00:12:37 Test Item Value Reference Range Interpretation Comments HEMOGLOBIN (BEAKER) (test code = 9.6 GM/DL 13.7-17.5 L 410) HEMATOCRIT (BEAKER) (test code = 30.0 % 40.1-51.0 L 411) Control Systems Specialist ID - [id number]-GLUCOSE [id number] 00:10:44 Test Item Value Reference Range Interpretation Comments POC-GLUCOSE METER 222 mg/dL 70-110 H : TESTED A T [facility] 6720 (BEAKER) (test code = [place], 1538) [address]: Control Systems Specialist/Techni edwige ID = [id number] for MARCE SOLMARIE Rao HIGH SENSITIVITY TROPONIN [id number] 20:06:54 Test Item Value Reference Range Interpretation Comments HIGH SENSITIVITY 33 pg/ml See_Comment [Automated message] TROPONIN I (test code = The system which [id number]) generated this result transmitted ref erence range: <=35. Th e reference range was not used to int erpret this result as normal/abnormal . Control Systems Specialist ID - PIAYA LThe BOX TRUCK WASHER STAT High Sensitivity Troponin-I results should be used in conjunction with other diagnostic information such as ECG, clinical observations and information, and patient symptoms to aid in the diagnosis of NC.[id number] 20:01:17 Test Item Value Reference Range Interpretation Comments LIPASE (BEAKER) (test code = 749) 19 U/L 8-78 Control Systems Specialist ID - SEBAS LCREATINE KINASE (CK)2022-06-26 20:01:17 Test Item Value Reference Range Interpretation Comments CREATINE KINASE TOTAL (BEAKER) (test 36 U/L 29-200 code = 380) Control Systems Specialist ID - PIVALENTINE LCOMPREHENSIVE METABOLIC [id number] 20:01:16 Test Item Value Reference Range Interpretation Comments TOTAL PROTEIN 6.2 gm/dL 6.0-8.3 (BEAKER) (test code = 770) ALBUMIN (BEAKER) 3.1 g/dL 3.5-5.0 L (test code = 1145) ALKALINE 59 U/L 40-150 PHOSPHATASE (BEAKER) (test code = 346) BILIRUBIN TOTAL 1.4 mg/dL 0.2-1.2 H (BEAKER) (test code = 377) SODIUM (BEAKER) 136 meq/L 136-145 (test code = 381) POTASSIUM (BEAKER) 3.8 meq/L 3.5-5.1 (test code = 379) CHLORIDE (BEAKER) 102 meq/L 98-107 (test code = 382) CO2 (BEAKER) (test 24 meq/L 22-29 code = 355) BLOOD UREA 33 mg/dL 7-21 H NITROGEN (BEAKER) (test code = 354) CREATININE 0.86 mg/dL 0.57-1.25 (BEAKER) (test code = 358) GLUCOSE RANDOM 237 mg/dL 70-105 H (BEAKER) (test code = 652) CALCIUM (BEAKER) 8.7 mg/dL 8.4-10.2 (test code = 697) AST (SGOT) 15 U/L 5-34 (BEAKER) (test code = 353) ALT (SGPT) 14 U/L 6-55 (BEAKER) (test code = 347) EGFR (BEAKER) 102 Interpretatio n of eGFR (test code = 1092) mL/min/1.[address] age Description sq m Result G1 [place] l or high >=90 G2 Mildly decreased 60-89 G3a Mildl y to moderately 45-5 9 G3b Moderately to s everely 30-44 G4 Severl y decreased 15-29 G5 Kidney failure <15Reported eGF R is based on the CKD-EPI 2020 equation that d oes not use a race coefficientEsti mated GFR is not as accur ate as Creatinine Estefani bj in predicting glom erular filtration rate . Estimated GFR is not appl icable for dialysis patien ts Control Systems Specialist ID - SEBAS [id number] 19:58:16 Test Item Value Reference Range Interpretation Comments ETHANOL (BEAKER) < mg/dL See_Comment [Automated message] The (test code = 400) system [employer] generated this result tra nsmitted reference range : <=10. The reference r keegan was not used to int erpret this result as normal/abnormal . Control Systems Specialist ID - SEBAS [id number] 19:42:35 Test Item Value Reference Range Interpretation Comments PARTIAL THROMBOPLASTIN TIME 28.6 seconds 22.5-36.0 (BEAKER) (test code = 760) PROTHROMBIN [id number] 19:41:53 Test Item Value Reference Range Interpretation Comments PROTIME (BEAKER) 16.0 seconds 11.9-14.2 H (test code = 759) INR (BEAKER) (test 1.36 See_Comment [Automat ed message] code = 370) The system [employer] generated this result transmitted ref erence range: <=5.90. The reference range was not used to int erpret this result as normal/abnormal . RECOMMENDED COUMADIN/WARFARIN INR THERAPY RANGESSTANDARD DOSE: 2.0 - 3.0 Includes: PROPHYLAXIS for venous thrombosis, systemic embolization; TREATMENT for venous thrombosis and/or pulmonary embolus.HIGH RISK: Target INR is 2.5-3.5 for patients with mechanical heart valves.CBC W/PLT COUNT & AUTO [id number] 19:26:51 Test Item Value Reference Range Interpretation Comments WHITE BLOOD CELL COUNT (BEAKER) 7.7 K/ L 3.5-10.5 (test code = 775) RED BLOOD CELL COUNT (BEAKER) 3.29 M/ L 4.63-6.08 L (test code = 761) HEMOGLOBIN (BEAKER) (test code = 9.5 GM/DL 13.7-17.5 L 410) HEMATOCRIT (BEAKER) (test code = 28.3 % 40.1-51.0 L 411) MEAN CORPUSCULAR VOLUME (BEAKER) 86.0 fL 79.0-92.2 (test code = 753) MEAN CORPUSCULAR HEMOGLOBIN 28.9 pg 25.7-32.2 (BEAKER) (test code = 751) MEAN CORPUSCULAR HEMOGLOBIN CONC 33.6 GM/DL 32.3-36.5 (BEAKER) (test code = 752) RED CELL DISTRIBUTION WIDTH 16.5 % 11.6-14.4 H (BEAKER) (test code = 412) PLATELET COUNT (BEAKER) (test 141 K/CU MM 150-450 L code = 756) MEAN PLATELET VOLUME (BEAKER) 10.4 fL 9.4-12.4 (test code = 754) NUCLEATED RED BLOOD CELLS 0 /100 WBC 0-0 (BEAKER) (test code = 413) NEUTROPHILS RELATIVE PERCENT 57 % (BEAKER) (test code = 429) LYMPHOCYTES RELATIVE PERCENT 28 % (BEAKER) (test code = 430) MONOCYTES RELATIVE PERCENT 13 % (BEAKER) (test code = 431) EOSINOPHILS RELATIVE PERCENT 1 % (BEAKER) (test code = 432) BASOPHILS RELATIVE PERCENT 1 % (BEAKER) (test code = 437) NEUTROPHILS ABSOLUTE COUNT 4.40 K/ L 1.78-5.38 (BEAKER) (test code = 670) LYMPHOCYTES ABSOLUTE COUNT 2.16 K/ L 1.32-3.57 (BEAKER) (test code = 414) MONOCYTES ABSOLUTE COUNT (BEAKER) 1.02 K/ L 0.30-0.82 H (test code = 415) EOSINOPHILS ABSOLUTE COUNT 0.06 K/ L 0.04-0.54 (BEAKER) (test code = 416) BASOPHILS ABSOLUTE COUNT (BEAKER) 0.06 K/ L 0.01-0.08 (test code = 417) IMMATURE GRANULOCYTES-RELATIVE 0 % 0-1 PERCENT (BEAKER) (test code = 2801) HEMOGLOBIN AND [id number] 18:55:46 Test Item Value Reference Range Interpretation Comments HEMOGLOBIN (BEAKER) (test code = 9.8 GM/DL 13.7-17.5 L 410) HEMATOCRIT (BEAKER) (test code = 29.7 % 40.1-51.0 L 411) Control Systems Specialist ID - [id number]
[2022-07-21] MEDS ORDERED: DIPHENHYDRAMINE 50 MG/ML VIAL ONE (17:05)
[2022-07-21] MEDS ORDERED: METOCLOPRAMIDE 10 MG/2mL INJ ONE (17:05)
[2022-07-21] MEDS ORDERED: LORazepam 2 MG/ML VIAL ONE (17:07)
[2022-07-21] MEDS ORDERED: NA CHLORIDE 0.9% 1,000 ML ONE (17:08)
[2022-07-21] MEDS ORDERED: FAMOTIDINE 20 MG/2 ML VIAL IV ONE (17:08)
[2022-07-21] MEDS ORDERED: HYDROMORPHONE HCL 1 MG/ML INJ ONE (17:08)
[2022-07-21 17:50] LABS: Absolute Lymphocytes (CBC) 0.7 K/uL (0.7-4.9); Hematocrit 34.5 % (39.6-49.0); Lymphocytes % 10.3 % (15.3-44.8); MCV 87.7 fL (80-100); MPV 9.8 fL (7.6-11.3); RBC Red Blood Cell Count 3.94 M/uL (4.33-5.43)
[2022-07-21 18:35] LABS: Albumin 3.3 g/dL (3.4-5.0); Bilirubin Total 1.3 mg/dL (0.2-1.0); Potassium 4.4 mmol/L (3.5-5.1); Protein, Total 7.1 g/dL (6.4-8.2)
--- NOTE | 2022-07-21 18:40 | EDPHYS ---
Physician Documentation [facility] Name: Eitan Gonzalez Age: 57 yrs Sex: Male : 1965 Arrival Date: 07/21/2022 Time: 16:54 Bed 16 Private MD: ED Physician Imani Watts HPI: 07/21 19:21 This 57 yrs old Male presents to ER via EMS with complaints of Nausea/Vomiting. jmm 19:21 The patient presents to the emergency department with nausea, vomiting. Onset: The jmm symptoms/episode began/occurred gradually, 2 day(s) ago. Possible causes: flare up of bowel problem, gastroparesis. The symptoms are aggravated by nothing. The symptoms are alleviated by nothing. This is a 57 year old male with a history of gastroparesis, dm, cirrhosis that presents to the ED with complaints of epigastric abdominal pain, vomiting, beginning approx 2 days ago. patient states having a similar episode last week. . Historical: - Allergies: 16:55 Trulicity; eh3 - Home Meds: 16:55 gabapentin Oral [Active]; Metformin Oral [Active]; Omeprazole Oral [Active]; eh3 rosuvastatin Oral [Active]; telmisartan-hydrochlorothiazide Oral [Active]; - PMHx: 16:55 Alcoholism; cirrhosis of liver; diabetes mellitus; enlarged spleen; Hypertensive eh3 disorder; - Immunization history:: Adult Immunizations up to date, Client reports receiving the 2nd dose of the Covid vaccine, Client reports receiving the 1st dose of the Covid vaccine. - Social history:: Smoking status: Patient denies any tobacco usage or history of. Patient/guardian denies using alcohol, but has a distant history of alcohol abuse. ROS: 19:21 Constitutional: Negative for fever, chills, and weight loss, Cardiovascular: Negative jmm for chest pain, palpitations, and edema, Respiratory: Negative for shortness of breath, cough, wheezing, and pleuritic chest pain. 19:21 Abdomen/GI: Positive for abdominal pain, nausea and vomiting. 19:21 All other systems are negative. Exam: 19:21 Constitutional: This is a well developed, well nourished patient who is awake, alert, jmm and in no acute distress. Head/Face: atraumatic. Eyes: EOMI, no conjunctival erythema appreciated ENT: Moist Mucus Membranes Neck: Trachea midline, Supple Chest/axilla: Normal chest wall appearance and motion. Cardiovascular: Regular rate and rhythm. No edema appreciated Respiratory: Normal respirations, no respiratory distress appreciated 19:21 MS/ Extremity: Moves all extremities, no obvious deformities appreciated, no edema noted to the lower extremities Neuro: Awake and alert Psych: Behavior is normal, Mood is normal, Patient is cooperative and pleasant 19:21 Abdomen/GI: Inspection: abdomen appears normal, Bowel sounds: normal, Palpation: soft, in all quadrants. Vital Signs: 17:00 BP 189 / 108; Pulse 97; Resp 20; Pulse Ox 99% on R/A; em6 18:30 BP 108 / 70; Pulse 90; Resp 16; Pulse Ox 95% on R/A; em6 MDM: 16:58 Patient medically screened. [facility] 18:39 Data reviewed: vital signs, nurses notes. Counseling: I had a detailed discussion with abilio the patient and/or guardian regarding: the historical points, exam findings, and any diagnostic results supporting the discharge/admit diagnosis, the need for outpatient follow up, to return to the emergency department if symptoms worsen or persist or if there are any questions or concerns that arise at home. 19:25 ED course: Pain is relieved in the ED. Pain consistent with gastroparesis. I do not [facility] currently suspect an acute intrabdominal process. Patient/ given strict return precautions. Understood and agrees with the plan of care. . 07/21 16:59 Order name: CBC with Diff [facility] 07/21 16:59 Order name: CMP [facility] 07/21 16:59 Order name: Lipase [facility] 07/21 17:52 Order name: CBC with Automated Diff; Complete Time: 17:53 [facility] 07/21 18:35 Order name: Comprehensive Metabolic Panel; Complete Time: 18:36 [facility] 07/21 18:35 Order name: Lipase; Complete Time: 18:36 [facility] 07/21 16:59 Order name: IV Saline Lock; Complete Time: 17:27 [facility] 07/21 16:59 Order name: Labs collected and sent [facility] 07/21 16:59 Order name: Urine Dipstick-Ancillary (obtain specimen) [facility] 07/21 18:03 Order name: Labs - recollect needed: recollect chemistry/ lab printed the label; eb Complete Time: 18:13 Administered Medications: 17:26 Drug: diphenhydrAMINE 25 mg Route: IVP; Site: right forearm; em6 18:20 Follow up: Response: No adverse reaction em6 17:26 Drug: Ativan (LORazepam) 1 mg Route: IVP; Site: right forearm; em6 18:20 Follow up: Response: No adverse reaction em6 17:26 Drug: Reglan (metoCLOPramide) 10 mg Route: IVP; Site: left forearm; em6 18:20 Follow up: Response: No adverse reaction em6 17:27 Drug: NS 0.9% 1000 ml Route: IV; Rate: 1 bolus; Site: left forearm; em6 17:27 Drug: Pepcid (famotidine) 20 mg Route: IVP; Site: left forearm; em6 18:20 Follow up: Response: No adverse reaction em6 17:27 Drug: Dilaudid (HYDROmorphone) 1 mg Route: IVP; Site: left forearm; em6 18:20 Follow up: Response: No adverse reaction em6 17:27 Drug: Reglan (metoCLOPramide) 10 mg Route: IVP; Site: left forearm; em6 18:20 Follow up: Response: No adverse reaction em6 Disposition Summary: 07/21/22 18:40 Discharge Ordered Location: Home [facility] Condition: Stable [facility] Diagnosis - Gastroparesis jmm - Abdominal pain, unspecified jmm Followup: [facility] - With: Private Physician - When: 2 - 3 days - Reason: Recheck today's complaints, Continuance of care, Re-evaluation by your physician Discharge Instructions: - Discharge Summary Sheet jmm - Abdominal Pain, Adult jmm - Gastroparesis [facility] Forms: - Medication Reconciliation Form [facility] - Thank You Letter jmm - Antibiotic Education jmm - Prescription Opioid Use [facility] Signatures: Dispatcher [employer] Marco Antonio Coulter PA PA jmm Botello, Elizabeth eb Hall, Erin, RN RN eh3 Lexis Hogan RN RN em6
--- NOTE | 2022-07-21 18:40 | ER ---
Nurse's Notes [facility] Name: Eitan Gonzalez Age: 57 yrs Sex: Male : 1965 Arrival Date: 07/21/2022 Time: 16:54 Bed 16 Private MD: Diagnosis: Gastroparesis;Abdominal pain, unspecified Presentation: 07/21 16:54 Chief complaint: EMS states: He has had abdominal pain, nausea, and vomiting for 2 eh3 days. He was just in the ICU in [place] for bleeding varices. Coronavirus screen: At this time, the client does not indicate any symptoms associated with coronavirus-19. Ebola Screen: No symptoms or risks identified at this time. Initial Sepsis Screen: Does the patient meet any 2 criteria? No. Patient's initial sepsis screen is negative. Does the patient have a suspected source of infection? No. Patient's initial sepsis screen is negative. Risk Assessment: Do you want to hurt yourself or someone else? Patient reports no desire to harm self or others. Onset of symptoms is unknown. 16:54 Method Of Arrival: EMS: [facility] 16:54 Acuity: NALINI 2 eh3 Triage Assessment: 16:55 General: Appears in no apparent distress. uncomfortable, Behavior is calm, cooperative. eh3 Pain: Complains of pain in abdomen. EENT: No deficits noted. No signs and/or symptoms were reported regarding the EENT system. Neuro: No deficits noted. Cardiovascular: No deficits noted. Respiratory: No deficits noted. GI: Abdomen is round distended, Pt is actively vomiting bile, Reports nausea, vomiting. : No deficits noted. No signs and/or symptoms were reported regarding the genitourinary system. Derm: No deficits noted. No signs and/or symptoms reported regarding the dermatologic system. Musculoskeletal: No deficits noted. No signs and/or symptoms reported regarding the musculoskeletal system. Historical: - Allergies: 16:55 Trulicity; eh3 - Home Meds: 16:55 gabapentin Oral [Active]; Metformin Oral [Active]; Omeprazole Oral [Active]; eh3 rosuvastatin Oral [Active]; telmisartan-hydrochlorothiazide Oral [Active]; - PMHx: 16:55 Alcoholism; cirrhosis of liver; diabetes mellitus; enlarged spleen; Hypertensive eh3 disorder; - Immunization history:: Adult Immunizations up to date, Client reports receiving the 2nd dose of the Covid vaccine, Client reports receiving the 1st dose of the Covid vaccine. - Social history:: Smoking status: Patient denies any tobacco usage or history of. Patient/guardian denies using alcohol, but has a distant history of alcohol abuse. Screenin:54 Abuse screen: Denies threats or abuse. Nutritional screening: No deficits noted. em6 Tuberculosis screening: No symptoms or risk factors identified. Fall Risk IV access (20 points). Total Coffey Fall Scale indicates No Risk (0-24 pts). Assessment: 16:54 General: Appears distressed, Behavior is cooperative, restless. Pain: Complains of pain em6 in epigastric area Pain does not radiate. Pain currently is 10 out of 10 on a pain scale. Quality of pain is described as burning, sharp. Neuro: Level of Consciousness is awake, alert, obeys commands, Oriented to person, place, time, situation. Cardiovascular: Heart tones present Patient's skin is warm and dry. Respiratory: Airway is patent Respiratory effort is even, unlabored, Respiratory pattern is regular, symmetrical, Breath sounds are clear bilaterally. GI: Abdomen is non-distended, Abd is soft and non tender Reports upper abdominal pain, nausea, vomiting. : No signs and/or symptoms were reported regarding the genitourinary system. EENT: No signs and/or symptoms were reported regarding the EENT system. Derm: No signs and/or symptoms reported regarding the dermatologic system. Musculoskeletal: Circulation, motion, and sensation intact. Range of motion: intact in all extremities. 18:00 Reassessment: Patient appears in no apparent distress at this time. Patient and/or em6 family updated on plan of care and expected duration. Pain level reassessed. Patient is alert, oriented x 3, equal unlabored respirations, skin warm/dry/pink. Patient states symptoms have improved. Vital Signs: 17:00 BP 189 / 108; Pulse 97; Resp 20; Pulse Ox 99% on R/A; em6 18:30 BP 108 / 70; Pulse 90; Resp 16; Pulse Ox 95% on R/A; em6 ED Course: 16:54 Patient arrived in ED. eh3 16:54 Maintain EMS IV. Dressing intact. Good blood return noted. Site clean \T\ dry. Gauge \T\ em 6 site: 20 G left forearm . 16:55 Triage completed. 3 16:55 Marco [facility] Pitts [facility] 16:55 Imani Watts MD is Attending Physician. [facility] 16:55 Arm band placed on right wrist. [facility] 16:55 Bed in low position. Call light in reach. Side rails up X2. Pulse ox on. NIBP on. Warm em6 blanket given. 17:01 Lexis Hogan RN is Primary Nurse. em6 18:12 Lab(s) recollected, by me, sent to lab. [facility] 19:00 No provider procedures requiring assistance completed. IV discontinued, intact, em6 bleeding controlled, No redness/swelling at site. Pressure dressing applied. Administered Medications: 17:26 Drug: diphenhydrAMINE 25 mg Route: IVP; Site: right forearm; em6 18:20 Follow up: Response: No adverse reaction em6 17:26 Drug: Ativan (LORazepam) 1 mg Route: IVP; Site: right forearm; em6 18:20 Follow up: Response: No adverse reaction em6 17:26 Drug: Reglan (metoCLOPramide) 10 mg Route: IVP; Site: left forearm; em6 18:20 Follow up: Response: No adverse reaction em6 17:27 Drug: NS 0.9% 1000 ml Route: IV; Rate: 1 bolus; Site: left forearm; em6 17:27 Drug: Pepcid (famotidine) 20 mg Route: IVP; Site: left forearm; em6 18:20 Follow up: Response: No adverse reaction em6 17:27 Drug: Dilaudid (HYDROmorphone) 1 mg Route: IVP; Site: left forearm; em6 18:20 Follow up: Response: No adverse reaction em6 17:27 Drug: Reglan (metoCLOPramide) 10 mg Route: IVP; Site: left forearm; em6 18:20 Follow up: Response: No adverse reaction em6 Medication: 19:05 VIS not applicable for this client. em6 Outcome: 18:40 Discharge ordered by . [facility] 19:00 Discharged to home ambulatory. em6 19:00 Condition: stable 19:00 Discharge instructions given to patient, significant other, Instructed on discharge instructions, follow up and referral plans. Demonstrated understanding of instructions, follow-up care. 19:14 Patient left the ED. jb4 Signatures: Marco Antonio Pitts PA PA jmm Bryson, James RN RN jb4 Meryl Wiggins 3 Amber Tucker, RN RN eh3 Lexis Hogan RN RN em6
[2022-07-21 19:23] VITALS: BP 108/70; O2SAT 95
== END 2022-07-21 19:14 | disposition home or self-care (01) ==
LOC: ER 16:47
DX: E11.43 Type 2 diabetes mellitus with diabetic autonomic (poly)neuropathy (principal); K31.84 Gastroparesis; R10.9 Unspecified abdominal pain
CPT/HCPCS: 85025; 36415; 83690; 80053; 99284; J2765; J1200; J1170; J7030

== ENCOUNTER 2022-07-28 09:12 | Inpatient (IN) | payer OTHER ==
--- OUTSIDE RECORDS SUMMARY | 2022-07-28 09:23 | XMS REPORT | Continuity of Care Document ---
:1965 Author Organization [facility] t Address [address] [place] [address] [address]. En[address] [place] [address] Care Team Providers Name Role Phone BAR HO Primary Care Physician Unavailable KAREN AWAD Attending Clinician Unavailable BRIEN KIMBALL Attending Clinician Unavailable JORGE A LYONS Attending Clinician Unavailable JORGE A LYONS Attending Clinician Unavailable EDIN SANCHEZ Attending Clinician Unavailable BAR HO Attending Clinician Unavailable JULIUS BRENNAN Attending Clinician Unavailable JULIUS BRENNAN Attending Clinician Unavailable MIN ASHER Attending Clinician Unavailable Anil Orozco MA Attending Clinician Unavailable Garrett VALENCIA, Jaylin Bain Attending Clinician JAYLIN TUCKER Attending Clinician Unavailable Bar Ho MD Attending Clinician Inez ARCHER, Imani Alva Attending Clinician Unavailable ANA ROSA BEGUM Attending Clinician Unavailable Arleth SAVAGE, Brooks Welch Attending Clinician Annie SAVAGE, Ratna Rojo Attending Clinician Ana Rosa Begum MD Attending Clinician [phone] Karime SAVAGE, Guanako Hanna Attending Clinician Em SAVAGE, Carolin Iniguez Attending Clinician WILLI KRUEGER Attending Clinician Unavailable RICHARD TOLENTINO Attending Clinician Unavailable Zindani Maricel SAVAGE Attending Clinician LINDA MARSH Attending Clinician Unavailable LINDA MARSH Attending Clinician Unavailable Linda Marsh DO Attending Clinician KAREN AWAD Admitting Clinician Unavailable BROOKS OCHOA Admitting Clinician Unavailable RATNA FLORIAN Admitting Clinician Unavailable LINDA MARSH Admitting Clinician Unavailable Payers Payer Name Policy Type Policy Number Effective Date Expiration Date S ournik [employer] [id number] 2021 00:00:00 [facility] [id number] 2020 PPO/POS 00:00:00 [facility] 3 [id number] 2022 00:00:00 Problems Condition Condition Condition Status Onset Resolution Last Treating Co mments Source Name Details Category Date Date Treatment Clinician Date Hepatic Hepatic Disease Active [facility] encephal[facility] encephalop 07-18 [facility]ana kes athy athy 00:00: Medical 00 [place] Other Other Disease Active [facility] cirrhosis cirrhosis 07-18 [facility] of liver of liver 00:00: Medica l 00 [place] Gastropare Gastropare Disease Active [facility]: Medical 00 [place] Generalize Generalize Disease Active [facility] d 07[facility]18 [facility] abdominal abdominal 00:00: Medi vidal pain pain 00 [place] Lung Lung Disease Active [facility] nodule nodule 07[facility]18 [facility] 00:00: Medical 00 [place] Portal Portal Disease Active [facility] hypertensi hypertensi 07-18 Dayana kes on on 00:00: Medical 00 [place] Screening Screening Disease Active [facility] for for 07[facility]18 [facility] malignant malignant 00:00: Medi vidal neoplasm neoplasm 00 [place] Hepatitis Hepatitis Disease Active [facility] B core B core 07-18 [facility] antibody antibody 00:00: Medica l positive positive 00 [place] 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 00:00: Medical 00 [place] GI bleed GI bleed Disease [facility]: Medical 00 [place] 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 7- ity of of liver of liver 00:00: [place] without without 00 Medical ascites ascites Branch Abnormal Abnormal Disease Active Unive rs platelets platelets 7-08 ity of 00:: [place] [facility] Pain of Pain of Disease Active Univers upper upper 7-08 ity of abdomen abdomen 00:00: [place] [facility] Restlessne Restlessne Disease Active U nivers ss and ss and 7-08 [place] of agitation agitation 00:00[place] [facility] [place] Other Other Disease Active [facility] cirrhosis cirrhosis 6-10 ity of of liver of liver 00:00: [place] [facility] Other Other Disease Active Univers cholelithi cholelithi 6-10 it y of asis asis 00:00: [place] without without 00 Medical obstructio obstructio Br anch n n Anxiety, Anxiety, Disease Active Unive rs generalize generalize 6-10 it y of d d 00:00: [place] [facility] Primary Primary Disease Active Univers insomnia insomnia 6-10 ity of 00:00: [place] [facility] Diverticul Diverticul Disease Active U nivers osis of osis of 6-10 ity of colon colon 00:00: [place] [facility] Idiopathic Idiopathic Disease Active U nivers acute acute 6-10 [place] of pancreatit pancreatit [place] without is without 00 Me dical infection infection Bran ch or or necrosis necrosis Diabetic Diabetic Disease Active Unive rs gastropare gastropare 6-10 it y of sis sis 00:00: [place] [facility] Current Current Disease Active Univers moderate moderate 6-10 [place] of episode of episode of [place] major major 00 [place] depressive depressive Br anch disorder disorder without without prior prior episode episode Splenomega Splenomega Disease Active U nivers ly ly 6-10 ity of 00:00: [place] [facility] Alcohol Alcohol Disease Active Univers use use 6-10 ity of 00:00: [place] [facility] Abnormal Abnormal Disease Active Unive rs EKG EKG 5-18 ity of 00:00: [place] [facility] Need for Need for Disease [...] 4-25 ity of establish establish 00:00: [facility] salmeron care care 00 Medical Branch 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 00:00: [place] with with 00 Medical diabetic diabetic Branch polyneurop polyneurop athy, with athy, with long-term long-term current current use of use of insulin insulin Essential Essential Disease Active Uni vers hypertensi hypertensi 4-25 it y of on on 00:00: [place] 00 Medical Branch Erectile Erectile Disease Active Unive rs dysfunctio dysfunctio 4-25 it y of n, n, 00:00: [place] unspecifie unspecifie 00 Me dical d erectile d erectile Br anch dysfunctio dysfunctio n type n type Anxiety Anxiety Disease Active Univers and and 4-25 [place] of depression depression 00:[place] Iron Iron Disease Active Univers deficiency deficiency 4-25 it y of anemia, anemia, 00:00: [place] unspecifie unspecifie 00 Me dical d iron d iron Branch deficiency deficiency anemia anemia type type Allergies, Adverse Reactions, Alerts Allergy Allergy Status Severity Reaction(s) Onset Inactive Treating Comm ents Source Name Type Date Date Clinician DULAGLUT DRUG Active High N/V Univers MIRACLE INGREDI 5-20 ity of 00:00: [place] 00 Medical Branch Dulaglut Propensi Active Unknown - Pancreati Univers miracle ty to See comments 5-20 tis ity of adverse 00:00: Pancreati [place] reaction 00 tis Medical s Branch NO KNOWN Allergy Active [facility] Social History Social Habit Start Date Stop Date Quantity Comments Source History SDOH University o f Alcohol Frequency [place] M edical [facility] History SDRI University o f Alcohol Std Drinks [place] [facility] History SDRI University o f Alcohol Binge [place] [facility] al [facility] History of tobacco Cigarette Smoker University of use [place] [facility] History SDOH [facility] Non-Med Medical Center Exposure to 2022-06-22 2022-07-[address] [facility] SARS-CoV-2 (event) 00:00:00 05:30:00 Medica l Center History [facility] 2022-07-02 2022-07-[address] [facility] Housing Homeless 00:00:00 00:00:00 Medical Center Last Year History [facility] 2022-07-02 2022-07-[address] [facility] Transport Med 00:00:00 00:00:[address] [place] [address] [facility] 2022-07-02 2022-07-[address] [facility] Housing Unable to 00:00:00 00:00:00 Medical Center Pay History [facility] 2022-07-02 2022-07-[address] [facility] Housing Places 00:00:00 00:00:00 Medical Ce nter Lived Alcohol intake 2022-05-06 2022-05-06 .71 /d University 00:00:00 00:00:00 [facility] Cigarettes smoked 2022-05-02 2022-05-02 Univers ity of current (pack per 00:00:00 00:00:00 [facility] ) - Reported Branch Cigarette 2022-05-02 2022-05-02 University of pack-years 00:00:00 00:00:00 [facility] Tobacco use and 2022-05-02 2022-05-02 Smokeless Universit y of exposure 00:00:00 00:00:00 tobacco non-user [facility] Alcohol Comment 2022-03-30 2022-03-30 Drinks 5-6 shots Uni versity of 00:00:00 00:00:00 of rum a week. [facility] Sex Ass[birth year] At 1965 [address] [facility] Dayana kes 00:00:00 00:00:00 Medical Center Smoking Status Start Date Stop Date Source Ex-smoker 2022-05-02 00:00:00 2022-05-02 00:00:00 Universi ty [facility] Medications Ordered Filled Start Stop Current Ordering Indication Dosage Frequency Signature Comments Components Source Medication Medication Date Date Medication? Clinician (SIG) Name Name milk 2021- 150mg QD Take [address] [facility] [address] thistle [...] Center daily as needed for Dizziness. rosuvastati 0 Yes 20mg QD Take [address] [facility] n (CRESTOR) 07-17 by mouth Luke s 20 MG 14:28: daily. Medical tablet 02 [place] doxepin Yes 10mg QD Take [address] [address] (SINEquan) 07-17 by mouth [facility] 10 MG 14:28: nightly. Medical capsule 02 Center gabapentin 0 Yes 100mg Q.[id number] Take [address] [address] (NEURONTIN) 07-17 [id number] mg by L ukes 100 MG 14:28: 3D mouth 3 Medical capsule 02 (three) Center times daily. lipase/prot Yes Take by [facility] ease/amylas 07-17 mouth [facility] e (CREON 14:28: 6,000 TID Medi vidal ORAL) 02 . [place] hydrOXYzine 0 Yes 25mg Take [address] [facility] (ATARAX) 25 07-17 tablet (25 Dayana kes MG tablet 00:00: mg total) Med ical 00 by mouth Center as needed. ferrous Yes 325mg Take [address] [facility] sulfate 325 - tablet [facility] (65 FE) MG 00:00: (325 mg Medi vidal EC tablet 00 total) by Cente r mouth every other day. lactulose Yes Hepatic 20g Q.[id number] Take [address] (CHRONULAC) - encephalopa [id number] mLs (20 g [facility] 10 gram/15 00:00: thy 3D total) by In dical mL solution 00 mouth 3 Cente r (three) times daily. telmisartan Yes [id number] 1{tbl} Take 1 Univers -hydrochlor 9- tablet [...] [facility] (FOLTX, 07-03 tablet by [facility]) 00:00: 23:59 mouth Medical 2-1.- 00 :00 daily for Cente r mg Tab 30 days. tablet multivitami 2021- Yes 1{tbl} QD Take [address] (FOLTX, 07-03-13 tablet by [facility]) 00:00: 23:59 mouth Medical 2-1.-25 00 :00 daily for Cente r mg Tab 30 days. tablet omeprazole Yes 20mg Q.5D Take [address] (PriLOSEC) 9-12 by mouth 2 Ashleigh es 20 MG 13:14: (two) Medical capsule 24 times Center daily. meclizine Yes 25mg Take [address] (ANTIVERT) 9-12 by mouth 3 Ashleigh es 25 MG 13:14: (three) Medical tablet 24 times Center daily as needed for Dizziness. rosuvastati Yes 20mg QD Take [address] n (CRESTOR) 912 by mouth Luke s 20 MG 13:14: daily. Medical tablet 24 [place] doxepin Yes 10mg QD Take [address] [address] (SINEquan) 912 by mouth [facility] 10 MG 13:14: nightly. Medical capsule 24 [place] telmisartan Yes 1{tbl} QD Take [address] -hydrochlor 12 tablet by Ashleigh es othiazide 13:14: mouth Medical (MICARDIS 24 daily. [place] HCT) 80-25 mg per tablet gabapentin Yes 100mg Q.[id number] Take [address] (NEURONTIN) 07-02 [id number] mg by L ukes 100 MG 13:14: 3D mouth 3 Medical capsule 24 (three) Center times daily. lipase/prot Yes Take by [facility] ease/amylas 07-02 mouth [facility] e (CREON 13:14: 6,000 TID Medi vidal ORAL) 24 . [place] haloperidoL Yes .5mg Q.5D Take 0.5 CH [...] Center mouth 2 (two) times daily. pantoprazol 0 2021- Yes 40mg Q.5D Take [address] e 07-02 12-11 tablet (40 [facility] (PROTONIX) 00:00: 23:59 mg total) M edical 40 MG 00 :00 by mouth 2 Center tablet (two) times daily for 90 days. pantoprazol 2021- No 40mg Q.5D Take [address] [facility] [facility] [...] Max Daily Amount: 4 tablets insulin Yes [id number] 54U inject 54 U nivers lispro, 8-22 Units ity of human, 00:00: under the [place] (HUMALOG 00 skin in Medical U-100 the Branch INSULIN) morning. 100 unit/mL injection telmisartan Yes [id number] 1{tbl} Take 1 Univers -hydrochlor 8-22 tablet by ity of othiazide 00:00: [place] 80-25 mg 00 the Medical per tablet morning. Bran h insulin Yes [id number] 54U inject 54 U nivers lispro, 8-22 Units ity of human, 00:00: under the [place] (HUMALOG 00 skin in Medical U-100 the Branch INSULIN) morning. 100 unit/mL injection telmisartan Yes [id number] 1{tbl} Take 1 Univers -hydrochlor 8-22 tablet by ity of othiazide 00:00: mouth [place] 80-25 mg 00 the Medical per tablet morning. Bran h insulin Yes [id number] 54U inject 54 U nivers lispro, 8-22 Units ity of human, 00:00: under the [place] (HUMALOG 00 skin in Medical U-100 the Branch INSULIN) morning. 100 unit/mL injection insulin Yes [id number] 54U inject 54 U nivers lispro, 8-22 Units ity of human, 00:00: under the [place] (HUMALOG 00 skin in Medical U-100 the Branch INSULIN) morning. 100 unit/mL injection telmisartan 2021- No [id number] 1{tbl} Take 1 Univers -hydrochlor 06-11 tablet by it y of othiazide 00:00: 00:00 mouth in [place] 80-25 mg 00 :00 the Medical per tablet morning. [facility] insulin 2021- No [id number] 54U inject 54 Univers lispro, 06-11 08-22 Units ity of human, 00:00: 00:00 under the [place] (HUMALOG 00 :00 skin in Medical U-100 the Branch INSULIN) morning. 100 unit/mL injection insulin 2021- No [id number] 54U inject 54 Univers lispro, 7-29 08-01 Units ity of human, 00:00: 00:00 under the [place] (HUMALOG 00 :00 skin in Medical U-100 the Branch INSULIN) morning 100 unit/mL and 54 injection Units at noon and 54 Units in the evening. inject with meals. Blood-Gluco Yes [id number] Use as Univers se Sensor 7-26 directed ity of (DEXCOM G6 00:00: [place] SENSOR) 00 [facility] Blood-Gluco Yes [id number] Use as Univers se Sensor 7-26 directed ity of (DEXCOM G6 00:00: [place] SENSOR) 00 [facility] Blood-Gluco 0 Yes [id number] Use as Univers se Sensor 7-26 directed ity of (DEXCOM G6 00:00: [place] SENSOR) 00 [facility] Blood-Gluco 0 Yes [id number] Use as Univers se Sensor 7-26 directed ity of (DEXCOM G6 00:00: [place] SENSOR) 00 [facility] Blood-Gluco Yes [id number] Use as Univers se Sensor 7-26 directed ity of (DEXCOM G6 00:00: [place] SENSOR) 00 Medical [place] [facility] Blood-Gluco Yes [id number] Use as Univers se Sensor 7-26 directed ity of (DEXCOM G6 00:00: [place] SENSOR) 00 Medical [place] proMETHazin Yes [id number] 25mg Insert 1 Univers e 25 mg 7-11 Suppositor ity of suppository 00:00: y into [place] 00 rectum Medical every 4 Branch (four) hours as needed for Nausea and Vomiting (N/V). proMETHazin Yes [id number] 25mg Insert 1 Univers e 25 mg 7-11 Suppositor ity of suppository 00:00: y into [place] 00 rectum Medical every 4 Branch (four) hours as needed for Nausea and Vomiting (N/V). proMETHazin Yes [id number] 25mg Insert 1 Univers e 25 mg 7-11 Suppositor ity of suppository 00:00: y into [place] 00 rectum Medical every 4 Branch (four) hours as needed for Nausea and Vomiting (N/V). proMETHazin Yes [id number] 25mg Insert 1 Univers e 25 mg 7-11 Suppositor ity of suppository 00:00: y into [place] 00 rectum Medical every 4 Branch (four) hours as needed for Nausea and Vomiting (N/V). proMETHazin Yes [id number] 25mg Insert 1 Univers e 25 mg 7-11 Suppositor ity of suppository 00:00: y into [place] 00 rectum Medical every 4 Branch (four) hours as needed for Nausea and Vomiting (N/V). proMETHazin Yes [id number] 25mg Insert 1 Univers e 25 mg 7-11 Suppositor ity of suppository 00:00: y into [place] 00 rectum Medical every 4 Branch (four) hours as needed for Nausea and Vomiting (N/V). haloperidoL Yes [id number] .5mg Take 1 Univers 0.5 mg 7-08 tablet by ity of tablet 00:00: mouth 2 [place] 00 (two) Medical times Branch daily. haloperidoL Yes [id number] .5mg Take 1 Univers 0.5 mg 7-08 tablet by ity of tablet 00:00: mouth 2 [place] (two) Medical times Branch daily. haloperidoL 2022-0 Yes [id number] .5mg Take 1 Univers 0.5 mg 7-08 tablet by ity of tablet 00:00: mouth 2 [place] (two) Medical times Branch daily. haloperidoL 2022-0 Yes [id number] .5mg Take 1 Univers 0.5 mg 7-08 tablet by ity of tablet 00:00: mouth 2 [place] (two) Medical times Branch daily. haloperidoL 2022-0 Yes [id number] .5mg Take 1 Univers 0.5 mg 7-08 tablet by ity of tablet 00:00: mouth 2 [place] (two) Medical times Branch daily. haloperidoL 2022-0 Yes [id number] .5mg Take 1 Univers 0.5 mg 7-08 tablet by ity of tablet 00:00: mouth 2 [place] (two) Medical times Branch daily. sildenafiL 2022-0 Yes 100mg 100 mg as U nivers 100 mg 6-17 needed. ity of tablet 09:23: [place] [address] Medical Branch gabapentin 2022-0 Yes 100mg Take 100 Un darius 100 mg 6-17 mg by ity of capsule 09:23: mouth 3 [place] [address] (three) Medical times Branch daily. metFORMIN 2022-0 Yes 500mg Take 500 Uni vers 500 mg 6-17 mg by ity of tablet 09:23: mouth 2 [place] [address] (two) Medical times Branch daily with meals. Takes 2 tablets twice daily rosuvastati 2022-0 Yes 20mg Take 20 mg Univers n 20 mg 6-17 by mouth ity of tablet 09:23: at [place] [address] bedtime. Medical Branch omeprazole 2022-0 Yes 20mg Take 20 mg U nivers 20 mg 6-17 by mouth ity of capsule 09:23: daily. [place] [address] Takes 2 Medical tablets Branch daily sildenafiL 2022-0 Yes 100mg 100 mg as U nivers 100 mg 6-17 needed. ity of tablet 09:23: [place] [address] Medical Branch gabapentin 2022-0 Yes 100mg Take 100 Un darius 100 mg 6-17 mg by ity of capsule 09:23: mouth 3 [place] [address] (three) Medical times Branch daily. metFORMIN 2022-0 Yes 500mg Take 500 Uni vers 500 mg 6-17 mg by ity of tablet 09:23: mouth 2 [place] [address] (two) Medical times Branch daily with meals. Takes 2 tablets twice daily rosuvastati 2022-0 Yes 20mg Take 20 mg Univers n 20 mg 6-17 by mouth ity of tablet 09:23: at [place] [address] bedtime. Medical Branch omeprazole 2022-0 Yes 20mg Take 20 mg U nivers 20 mg 6-17 by mouth ity of capsule 09:23: daily. [place] [address] Takes 2 Medical tablets Branch daily sildenafiL 2022-0 Yes 100mg 100 mg as U nivers 100 mg 6-17 needed. ity of tablet 09:23: [place] [address] Medical Branch gabapentin 2022-0 Yes 100mg Take 100 Un darius 100 mg 6-17 mg by ity of capsule 09:23: mouth 3 [place] [address] (three) Medical times Branch daily. metFORMIN 2022-0 Yes 500mg Take 500 Uni vers 500 mg 6-17 mg by ity of tablet 09:23: mouth 2 [place] [address] (two) Medical times [place] daily with meals. Takes 2 tablets twice daily rosuvastati 2022-0 Yes 20mg Take 20 mg Univers n 20 mg 6-17 by mouth ity of tablet 09:23: at [place] [address] bedtime. Medical Branch omeprazole 2022-0 Yes 20mg Take 20 mg U nivers 20 mg 6-17 by mouth ity of capsule 09:23: daily. [place] [address] Takes 2 Medical tablets Branch daily sildenafiL 2022-0 Yes 100mg 100 mg as U nivers 100 mg 6-17 needed. ity of tablet 09:23: [place] [address] Medical Branch gabapentin 2022-0 Yes 100mg Take 100 Un darius 100 mg 6-17 mg by ity of capsule 09:23: mouth 3 [place] [address] (three) Medical times Branch daily. metFORMIN 2022-0 Yes 500mg Take 500 Uni vers 500 mg 6-17 mg by ity of tablet 09:23: mouth 2 [place] [address] (two) Medical times [place] daily with meals. Takes 2 tablets twice daily rosuvastati 2022-0 Yes 20mg Take 20 mg Univers n 20 mg 6-17 by mouth ity of tablet 09:23: at [place] [address] bedtime. Medical Branch omeprazole 2022-0 Yes 20mg Take 20 mg U nivers 20 mg 6-17 by mouth ity of capsule 09:23: daily. [place] [address] Takes 2 Medical tablets Branch daily sildenafiL 2022-0 Yes 100mg 100 mg as U nivers 100 mg 6-17 needed. ity of tablet 09:23: [place] [address] Medical Branch gabapentin 2022-0 Yes 100mg Take 100 Un darius 100 mg 6-17 mg by ity of capsule 09:23: mouth 3 [place] [address] (three) Medical times Branch daily. metFORMIN 2022-0 Yes 500mg Take 500 Uni vers 500 mg 6-17 mg by ity of tablet 09:23: mouth 2 [place] [address] (two) Medical times Branch daily with meals. Takes 2 tablets twice daily rosuvastati 2-0 Yes 20mg Take 20 mg Univers n 20 mg 6-17 by mouth ity of tablet 09:23: at [place] [address] bedtime. Medical Branch omeprazole 2021-0 Yes 20mg Take 20 mg U nivers 20 mg 6-17 by mouth ity of capsule 09:23: daily. [place] [address] Takes 2 Medical tablets Branch daily sildenafiL 2-0 Yes 100mg 100 mg as U nivers 100 mg 6-17 needed. ity of tablet 09:23: [place] [address] Medical Branch gabapentin 2-0 Yes 100mg Take 100 Un darius 100 mg 6-17 mg by ity of capsule 09:23: mouth 3 [place] [address] (three) Medical times Branch daily. metFORMIN 2021-0 Yes 500mg Take 500 Uni vers 500 mg 6-17 mg by ity of tablet 09:23: mouth 2 [place] [address] (two) Medical times [place] daily with meals. Takes 2 tablets twice daily rosuvastati 2-0 Yes 20mg Take 20 mg Univers n 20 mg 6-17 by mouth ity of tablet 09:23: at [place] [address] bedtime. Medical Branch omeprazole 2-0 Yes 20mg Take 20 mg U nivers 20 mg 6-17 by mouth ity of capsule 09:23: daily. [place] [address] Takes 2 Medical tablets Branch daily ferrous 2-0 Yes 325mg Take 325 Unive rs sulfate 325 6-10 mg by ity of mg (65 mg 08:24: mouth [place] iron) 09 daily. Medical tablet Branch empaglifloz 2021-0 Yes Take by Uni vers in 6-10 mouth ity of (JARDIANCE) 08:24: daily. [place] 25 mg Tab 09 Medical Branch ferrous 2-0 Yes 325mg Take 325 Unive rs sulfate 325 6-10 mg by ity of mg (65 mg 08:24: mouth [place] iron) 09 daily. Medical tablet Branch empaglifloz Yes Take by Uni vers in 6-10 mouth ity of (JARDIANCE) 08:24: daily. [place] 25 mg Tab 09 Medical Branch ferrous 0 Yes 325mg Take 325 Unive rs sulfate [...] Tab 09 Medical Branch doxepin 10 Yes [id number] 10mg Take 1 U nivers mg capsule 6-10 capsule by ity of 00:00: mouth at [place] 00 bedtime. Medical Branch lipase-prot Yes [id number] 1{capsu Take 1 Univers ease-amylas 6-10 le} capsule by it y of e (CREON) 00:00: mouth 3 [place] 6,000-19,00 00 (three) Medic al 0 -30,000 times Branch unit daily with capsule meals. telmisartan Yes [id number] 1{tbl} Take 1 Univers -hydrochlor 6-10 tablet by ity of othiazide 00:00: mouth [place] 80-25 mg 00 daily. Medical per tablet Branch doxepin 10 Yes [id number] 10mg Take 1 U nivers mg capsule 6-10 capsule by ity of 00:00: mouth at [place] 00 bedtime. Medical Branch lipase-prot Yes [id number] 1{capsu Take 1 Univers ease-amylas 6-10 le} capsule by it y of e (CREON) 00:00: mouth 3 [place] 6,000-19, 00 (three) Medic al 0 -30,000 times Branch unit daily with capsule meals. telmisartan Yes [id number] 1{tbl} Take 1 Univers -hydrochlor 6-10 tablet by ity of othiazide 00:00: mouth [place] 80-25 mg 00 daily. Medical per tablet Branch doxepin 10 Yes [id number] 10mg Take 1 U nivers mg capsule 6-10 capsule by ity of 00:00: mouth at [place] 00 bedtime. Medical Branch lipase-prot Yes [id number] 1{capsu Take 1 Univers ease-amylas 6-10 le} capsule by it y of e (CREON) 00:00: mouth 3 ,- 00 (three) Medic al 0 -30,000 times Branch unit daily with capsule meals. telmisartan Yes [id number] 1{tbl} Take 1 Univers -hydrochlor 6-10 tablet by ity of othiazide 00:00: mouth [place] 80-25 mg 00 daily. Medical per tablet Branch doxepin 10 Yes [id number] 10mg Take 1 U nivers mg capsule 6-10 capsule by ity of 00:00: mouth at [place] 00 bedtime. Medical Branch lipase-prot Yes [id number] 1{capsu Take 1 Univers ease-amylas 6-10 le} capsule by it y of e (CREON) 00:00: mouth 3 [place] 6,000-19, 00 (three) Medic al 0 -30,000 times Branch unit daily with capsule meals. doxepin 10 Yes [id number] 10mg Take 1 U nivers mg capsule 6-10 capsule by ity of 00:00: mouth at [place] 00 bedtime. Medical Branch lipase-prot 0 Yes [id number] 1{capsu Take 1 Univers ease-amylas 6-10 le} capsule by it y of e (CREON) 00:00: mouth 3 [place] 6,000-19,00 00 (three) Medic al 0 -30,000 times Branch unit daily with capsule meals. doxepin 10 Yes [id number] 10mg Take 1 U nivers mg capsule 6-10 capsule by ity of 00:00: mouth at [place] 00 bedtime. Medical Branch lipase-prot Yes [id number] 1{capsu Take 1 Univers ease-amylas 6-10 le} capsule by it y of e (CREON) 00:00: mouth 3 [place] 6,000-19,00 00 (three) Medic al 0 -30,000 times Branch unit daily with capsule meals. telmisartan 2021- No [id number] 1{tbl} Take 1 Univers -hydrochlor 6-10 08-22 tablet by it y of othiazide 00:00: 00:00 mouth [place] 80-25 mg 00 :00 daily. Medical per tablet Branch ondansetron Yes [id number] 4mg Take 1 Univers 4 mg 5-27 tablet by ity of disintegrat 00:00: mouth [place] ing tablet 00 every 8 Medica l (eight) Branch hours as needed for Nausea and Vomiting (N/V). ondansetron Yes [id number] 4mg Take 1 Univers 4 mg 5-27 tablet by ity of disintegrat 00:00: mouth [place] ing tablet 00 every 8 Medica l (eight) Branch hours as needed for Nausea and Vomiting (N/V). ondansetron Yes [id number] 4mg Take 1 Univers 4 mg 5-27 tablet by ity of disintegrat 00:00: mouth [place] ing tablet 00 every 8 Medica l (eight) Branch hours as needed for Nausea and Vomiting (N/V). ondansetron Yes [id number] 4mg Take 1 Univers 4 mg 5-27 tablet by ity of disintegrat 00:00: mouth [place] ing tablet 00 every 8 Medica l (eight) Branch hours as needed for Nausea and Vomiting (N/V). ondansetron 2021-0 Yes [id number] 4mg Take 1 Univers 4 mg 5-27 tablet by ity of disintegrat 00:00: mouth [place] ing tablet 00 every 8 Medica l (eight) Branch hours as needed for Nausea and Vomiting (N/V). ondansetron 2021-0 Yes [id number] 4mg Take 1 Univers 4 mg 5-27 tablet by ity of disintegrat 00:00: mouth [place] ing tablet 00 every 8 Medica l (eight) Branch hours as needed for Nausea and Vomiting (N/V). meclizine 0 Yes [id number] 25mg Take 1 U nivers 25 mg 5-18 tablet by ity of tablet 00:00: mouth 3 (three) Medical times Branch daily as needed for Dizziness. meclizine 2021-0 Yes [id number] 25mg Take 1 U nivers 25 mg 5-18 tablet by ity of tablet 00:00: mouth 3 (three) Medical times Branch daily as needed for Dizziness. meclizine 0 Yes [id number] 25mg Take 1 U nivers 25 mg 5-18 tablet by ity of tablet 00:00: mouth 3 (three) Medical times Branch daily as needed for Dizziness. meclizine 2021-0 Yes [id number] 25mg Take 1 U nivers 25 mg 5-18 tablet by ity of tablet 00:00: mouth 3 (three) Medical times Branch daily as needed for Dizziness. meclizine 2021-0 Yes [id number] 25mg Take 1 U nivers 25 mg 5-18 tablet by ity of tablet 00:00: mouth 3 (three) Medical times Branch daily as needed for Dizziness. meclizine 2021-0 Yes [id number] 25mg Take 1 U nivers 25 mg 5-18 tablet by ity of tablet 00:00: mouth 3 (three) Medical times Branch daily as needed for Dizziness. Blood-Gluco 2021-0 Yes [id number] Use as Univers se 5-04 directed ity of Transmitter 00:00: [place] (DEXCOM G6 00 Medical TRANSMITTER Branch ) [place] Blood-Gluco 2021-0 Yes [id number] Use as Univers se 5-04 directed ity of Transmitter 00:00: [place] (DEXCOM G6 00 Medical TRANSMITTER Branch ) [place] Blood-Gluco 2021-0 Yes [id number] Use as Univers se 5-04 directed ity of Transmitter 00:00: [place] (DEXCOM G6 00 Medical TRANSMITTER Branch ) [place] Blood-Gluco 2021-0 Yes [id number] Use as Univers se 5-04 directed ity of Transmitter 00:00: [place] (DEXCOM G6 00 Medical TRANSMITTER Branch ) [place] Blood-Gluco 2021-0 Yes [id number] Use as Univers se 5-04 directed ity of Transmitter 00:00: [place] (DEXCOM G6 00 Medical TRANSMITTER Branch ) [place] Blood-Gluco 2021-0 Yes [id number] Use as Univers se 5-04 directed ity [...] Systolic blood 2022-07-17 15:27:00 99 mm[Hg] [facility] Diastolic blood 2022-07-17 15:27:00 62 mm[Hg] [facility] Heart rate 2022-07-17 14:15:00 78 /min [facility] Body temperature 2022-07-17 14:15:00 36.61 Kayla [facility] Body height 2022-07-17 14:15:00 182.9 cm [facility] Body weight 2022-07-17 14:15:00 109.77 kg [facility] BMI 2022-07-17 14:15:00 32.82 kg/m2 [facility] Oxygen saturation in 2022-07-17 14:15:00 100 /min [facility] Arterial blood by Medical Ce nter Pulse oximetry Systolic blood 2022-07-02 08:10:00 130 mm[Hg] [facility] Diastolic blood 2022-07-02 08:10:00 70 mm[Hg] [facility] Heart rate 2022-07-02 08:10:00 80 /min [facility] Body temperature 2022-07-02 08:10:00 36.17 Kayla [facility] Respiratory rate 2022-07-02 08:10:00 18 /min [facility] Oxygen saturation in 2022-07-02 08:10:00 100 /min [facility] Arterial blood by Medical Ce nter Pulse oximetry Body height 2022-06-30 09:20:00 182.9 cm [facility] Body weight 2022-06-30 09:20:00 109.9 kg [facility] BMI 2022-06-30 09:20:00 32.86 kg/m2 [facility] Procedures Procedure Date / Time Performing Source Performed Clinician BASIC METABOLIC PANEL 2022-07-17 16:02:00 Jaylin Tucker [facility] HEPATIC FUNCTION PANEL 2022-07-17 16:02:00 Jaylin Tucker [facility] CBC W/PLT COUNT & AUTO 2022-07-17 16:02:00 Jaylin Tucker CH, I [facility] PROTHROMBIN TIME/INR 2022-07-17 16:02:00 Jaylin Tucker [facility] MAGNESIUM 2022-07-17 16:02:00 Jaylin Tucker [facility] PHOSPHORUS 2022-07-17 16:02:00 Jaylin Tucker [facility] CBC W/PLT COUNT & AUTO 2022-07-17 16:02:00 Jaylin Tucker CH, I [facility] POCT-GLUCOSE METER 2022-07-02 08:44:00 Ana Rosa Begum [facility] COMPREHENSIVE METABOLIC 2022-07-02 03:22:00 Ratna Florian [facility] PROTHROMBIN TIME/INR 2022-07-02 03:22:00 Ratna Florian [facility] CBC W/PLT COUNT & AUTO 2022-07-02 03:22:00 Ratna Florian [facility] CBC W/PLT COUNT & AUTO 2022-07-02 03:22:00 Ratna Florian [facility] POCT-GLUCOSE METER 2022-07-01 22:20:00 [facility]SE METER 2022-07-01 15:31:00 [facility] ER POCT-GLUCOSE METER 2022-07-01 11:14:00 [facility] ER MR ABDOMEN WITH & WITHOUT IV 2022-07-01 11:01:00 Angel Graves [facility] POCT-GLUCOSE METER 2022-07-01 07:39:00 [facility] ER POCT-GLUCOSE METER 2022-07-01 06:29:00 [facility] ER COMPREHENSIVE METABOLIC 2022-07-01 04:11:00 Ratna Florian [facility] CBC W/PLT COUNT & AUTO 2022-07-01 04:11:00 Ratna Florian [facility] CBC W/PLT COUNT & AUTO 2022-07-01 04:11:00 Ratna Florian [facility] PROTHROMBIN TIME/INR 2022-07-01 04:05:00 Ratna Florian [facility] POCT-GLUCOSE METER 2022-06-30 23:42:00 [facility] 2022-06-30 17:00:00 [facility] POCT-GLUCOSE METER 2022-06-30 13:08:00 [facility] THROMBOELASTOGR[facility] (TEG) 2022-06-30 07:23:00 Josi Enrique CH I [facility] COMPREHENSIVE METABOLIC 2022-06-30 05:58:00 Ratna Florian [facility] PROTHROMBIN TIME/INR 2022-06-30 05:58:00 Ratna Florian [facility] CBC W/PLT COUNT & AUTO 2022-06-30 05:58:00 Ratna Florian [facility] HEPATITIS B PCR, 2022-06-30 05:58:00 Jack Bonner [facility] POCT-GLUCOSE METER 2022-06-30 05:58:00 [facility] ER TYPE AND SCREEN, AUTOMATED 2022-06-30 05:58:00 [facility] ER CBC W/PLT COUNT & AUTO 2022-06-30 05:58:00 Ratna Florian [facility] FIBRINOGEN 2022-06-30 05:57:00 [facility]INR 2022-06-30 05:57:00 Josi Enrique [facility] POCT-GLUCOSE METER 2022-06-30 02:10:00 [facility] ER POCT-GLUCOSE METER 2022-06-30 00:22:00 [facility] ER POCT-GLUCOSE METER 2022-06-29 17:47:00 [facility] ER HEMOGLOBIN AND HEMATOCRIT 2022-06-29 16:55:00 [facility] ER PREPARE LEUKO-REDUCED RBC 2022-06-29 13:21:00 Marlyn Simeon [facility] POCT-GLUCOSE METER 2022-06-29 12:17:00 [facility] Center 2D ECHO W/ DOPPLER 2022-06-29 09:41:00 Jack Bonner [facility] (CW/PW/COLOR) [facility] POCT-GLUCOSE METER 2022-06-29 06:29:00 [facility]/INR 2022-06-29 04:11:00 [facility] APTT 2022-06-29 04:11:00 [facility] CBC (HEMOGRAM ONLY) 2022-06-29 04:11:00 [facility] COMPREHENSIVE METABOLIC 2022-06-29 04:11:00 Draío [facility] MAGNESIUM 2022-06-29 04:11:00 [facility] CALCIUM, IONIZED 2022-06-29 04:11:00 Zay [facility] CBC W/PLT COUNT & AUTO 2022-06-29 04:11:00 Ha [facility] CBC W/PLT COUNT & AUTO 2022-06-29 04:11:00 Ha Jack [facility] POCT-GLUCOSE METER 2022-06-28 22:25:00 [facility] POCT-GLUCOSE METER 2022-06-28 15:48:00 [facility] US ABDOMEN COMPLETE 2022-06-28 11:59:00 [facility]EMO[facility] HEMATOCRIT 2022-06-28 10:48:00 Zay Seferino I [facility] DRUG SCREEN, URINE, 2022-06-28 10:40:00 Jack Bonner [facility] TRANSPLANT [facility] POCT-GLUCOSE METER 2022-06-28 10:36:00 [facility] POCT-GLUCOSE METER 2022-06-28 08:50:00 Arleth, [facility] PROTHROMBIN TIME/INR 2022-06-28 05:35:[address] Zay [facility] APTT 2022-06-28 05:35:[address] Zay [facility] CBC (HEMOGRAM ONLY) 2022-06-28 05:35:00 Zay [facility] COMPREHENSIVE METABOLIC 2022-06-28 05:35:00 Zay [facility] MAGNESIUM 2022-06-28 05:35:00 [facility] POCT-GLUCOSE METER 2022-06-27 22:53:00 [facility] HEMOGLOBIN AND HEMATOCRIT 2022-06-27 19:49:00 Arleth [facility] HEPATITIS C PCR, 2022-06-27 17:03:00 Jack Bonner [facility] PHOSPHATIDYLETHANOL, BLOOD 2022-06-27 17:03:00 Jack Bonner [facility] ALPHA FETOPROTEIN (AFP), 2022-06-27 17:01:00 Ha [facility] TUMOR MARKER [facility] HEPATITIS C ANTIBODY 2022-06-27 17:01:00 Ha [facility] HEPATITIS A ANTIBODY, IGG 2022-06-27 17:01:00 Ha Jack [facility] HEPATITIS A ANTIBODY, IGM 2022-06-27 17:01:00 Ha Jack [facility] HEPATITIS B SURFACE ANTIBODY 2022-06-27 17:01:00 Ha [facility] HEPATITIS B CORE ANTIBODY, 2022-06-27 17:01:00 Jack Bonner [facility] HEPATITIS B SURFACE ANTIGEN 2022-06-27 17:01:00 Ha [facility] ANTI-NUCLEAR ANTIBODY (BEATA) 2022-06-27 17:01:00 Ha [facility] HC LAB FLUORESC AB SCRN EA 2022-06-27 17:01:00 Jack Bonner [facility] ACTIN (SMOOTH MUSCLE) 2022-06-27 17:01:00 [facility] ANTIBODY, IGG [facility] CERULOPLASMIN 2022-06-27 17:01:00 Ha [facility] [id number]\, SERUM 2022-06-27 17:01:00 Ha [facility] IRON, TIBC, % SAT. (WITHOUT 2022-06-27 17:01:00 Ha [facility] FERRITIN) [facility] FERRITIN 2022-06-27 17:01:00 Ha [facility] MITOCHONDRIAL AB SCREEN 2022-06-27 17:01:00 Ha [facility] MITOCHONDRIAL AB TITER 2022-06-27 17:01:00 Jack Bonner [facility] POCT-GLUCOSE METER 2022-06-27 16:19:00 [facility] POCT-GLUCOSE METER 2022-06-27 11:35:00 [facility] HEMOGLOBIN AND HEMATOCRIT 2022-06-27 11:23:00 Larisa Cardenas [facility] FIBRINOGEN 2022-06-27 11:23:00 [facility] REPORT OF PROCEDURE - 2022-06-27 10:36:47 Carolin Strickland [facility] ENDOSCOPY URL [facility] ESOPHAGOGASTRODUODENOSCOPY, 2022-06-27 09:58:00 Carolin Strickland [facility] WITH VARICEAL BANDING [facility] nter POCT-GLUCOSE METER 2022-06-27 06:05:00 [facility] PROTHROMBIN TIME/INR 2022-06-27 03:03:00 Darío [facility] APTT 2022-06-27 03:03:[address] Zay [facility] CBC (HEMOGRAM ONLY) 2022-06-27 03:03:00 Viktorangela [facility] METABOLIC 2022-06-27 03:03:00 Viktormaryartie [facility] MAGNESIUM 2022-06-27 03:03:[address] [facility] POCT-GLUCOSE METER 2022-06-26 23:56:00 ArlethYumikoq [facility] HEMOGLOBIN AND HEMATOCRIT 2022-06-26 23:43:00 CardenasLarisa young [facility] ABORH, MANUAL 2022-06-26 23:43:00 Malathi Somers [facility] ECG 12-LEAD 2022-06-26 19:35:41 Unknown, Hl7 Doctor [facility] CBC W/PLT COUNT & AUTO 2022-06-26 19:16:00 Randa [facility] COMPREHENSIVE METABOLIC 2022-06-26 19:16:00 [facility] PROTHROMBIN TIME/INR 2022-06-26 19:16:00 [facility] APTT 2022-06-26 19:16:00 [facility] LIPASE 2022-06-26 19:16:00 [facility] CREATINE KINASE (CK) 2022-06-26 19:16:00 [facility] HIGH SENSITIVITY TROPONIN I 2022-06-26 19:16:00 [facility] ETHANOL 2022-06-26 19:16:00 [facility] TYPE AND SCREEN, AUTOMATED 2022-06-26 19:16:00 Richard Tolentino [facility] CBC W/PLT COUNT & AUTO 2022-06-26 19:16:00 [facility] HEMOGLOBIN AND HEMATOCRIT 2022-06-26 18:13:00 Cheko Reardon CH, I [facility] CT LOW DOSE LUNG NODULE 2022-06-05 15:47:37 Linda Marsh [facility] [place] CONSENT/REFUSAL FOR 2022-06-05 15:24:44 Doctor Unassigned, [facility] DIAGNOSIS AND TREATMENT [facility] CONSENT/REFUSAL FOR 2022-06-05 15:24:43 Doctor Unassigned, [facility] DIAGNOSIS AND TREATMENT [facility] ASSIGNMENT OF BENEFITS 2022-06-05 15:24:26 Doctor Unassigned, [facility] [place] Plan of Care Planned Activity Planned Date Details Comments Source Future Scheduled 2030-05-27 Screening for malignant neoplasm [facility] Test 00:00:00 of colon (procedure) [code = Medical [id number]] [place] Future Scheduled 2030-05-27 Screening for malignant neoplasm [facility] Test 00:00:00 of colon (procedure) [code = Medical [id number]] [place] Future Scheduled 2030-05-27 Screening for malignant neoplasm [facility] Test 00:00:00 of colon (procedure) [code = Medical [id number]] [place] Future Scheduled 2030-05-27 Screening for malignant neoplasm [facility] Test 00:00:00 of colon (procedure) [code = Medical [id number]] [place] Future Scheduled 2022-06-21 INFLUENZA VACCINE (#1) [code = [facility] 00:00:00 INFLUENZA VACCINE (#1)] [facility] Future Scheduled 2022-06-21 INFLUENZA VACCINE (#1) [code = [facility] 00:00:00 INFLUENZA VACCINE (#1)] [facility] Future Scheduled 2021-10-21 DEPRESSION SCREENING (12+) [code [facility] 00:00:00 = DEPRESSION SCREENING (12+)] [facility] Future Scheduled 2021-10-21 DEPRESSION SCREENING (12+) [code [facility] 00:00:00 = DEPRESSION SCREENING (12+)] [facility] Future Scheduled 2015 SHINGLES VACCINES (1 of 2) [code [facility] 00:00:00 = SHINGLES VACCINES (1 of 2)] [facility] Future Scheduled 2015 SHINGLES VACCINES (1 of 2) [code [facility] 00:00:00 = SHINGLES VACCINES (1 of 2)] [facility] Future Scheduled 2000 Lipid panel (procedure) [code = [facility] 00:00:00 [id number]] [facility] Future Scheduled 2000 Lipid panel (procedure) [code = [facility] 00:00:00 [id number]] [facility] Future Scheduled 1984 DTAP/TDAP/TD VACCINES (1 - Tdap) [facility] 00:00:00 [code = DTAP/TDAP/TD VACCINES (1 Medical - Tdap)] Center Future Scheduled 1984 DTAP/TDAP/TD VACCINES (1 - Tdap) [facility] 00:00:00 [code = DTAP/TDAP/TD VACCINES (1 Medical - Tdap)] [place] Future Scheduled 1971 PNEUMOCOCCAL VACCINE 0-64 YRS ([address] [facility] 00:00:00 - PCV) [code = PNEUMOCOCCAL Medical VACCINE 0-64 YRS (1 - PCV)] [place] Future Scheduled 1965 COVID-19 VACCINE (#1) [code = [facility] 00:00:00 COVID-19 VACCINE (#1)] [place] Future Scheduled 1965 COVID-19 VACCINE (#1) [code = [facility] Test 00:00:00 COVID-19 VACCINE (#1)] [place] Future Scheduled 1965 CT Colonography (combo) [code = [facility] 00:00:00 CT Colonography (combo)] [facility] Future Scheduled 1965 Screening for malignant neoplasm [facility] Test 00:00:00 of colon (procedure) [code = Medical [id number]] Center Future Scheduled 1965 Screening for malignant neoplasm [facility] Test 00:00:00 of colon (procedure) [code = Medical [id number]] [place] Future Scheduled 1965 Sigmoidoscopy [code = [facility] S[facility]oidoscopy] [facility] Future Scheduled 1965 CT Colonography (combo) [code = [facility] 00:00:00 CT Colonography (combo)] [facility] Future Scheduled 1965 Screening for malignant neoplasm [facility] 00:00:00 of colon (procedure) [code = Medical [id number]] Center Future Scheduled 1965 Screening for malignant neoplasm [facility] Test 00:00:00 of colon (procedure) [code = Medical [id number]] [place] Future Scheduled 1965 Sigmoidoscopy [code = [facility]:00 Sigmoidoscopy] [facility] Future Appointment 2022-08-15 Karen Awad MD, [address] [facility] 11:00:[address], [address] Future Appointment 2022-08-15 Karen Awad MD, [address] [facility] 11:00:[address], [place] [id number] [place] Procedure 2022-08-15 ESOPHAGOGASTRODUODENOSCOPY [facility] 11:00:00 [facility] Encounters Start End Encounter Admission Attending Care Care Encounter Source Date/Time Date/Time Type Type Clinicians Facility Department ID 2022-07-19 [facility] [id number] [facility] 10:50:57 [facility] 2022-08-14 2022-08-14 Outpatient [facility] [id number] SLE 00:00:00 00:00:00 2022-08-10 2022-08-10 Outpatient Artie KIMBALL [facility] [id number] [facility] 11:30:00 11:30:00 BRIEN [id number] [facility] 2022-08-10 2022-08-10 Outpatient Artie KIMBALL [facility] [id number] Univers 11:30:00 11:30:00 BRIEN [facility] 2022-08-08 2022-08-08 Outpatient R JORGE A LYONS [facility] [id number] Univers 10:30:00 10:30:00 JORGE A LYONS [id number] [facility] 2022-07-31 2022-07-31 Outpatient [facility] SLE [id number] SLE 00:00:00 00:00:00 2022-07-26 2022-07-26 Emergency E DANIEL, MHBL MHBL [id number] MHBL 13:53:00 19:44:00 SAB 2022-07-26 2022-07-26 Outpatient R TRINO [facility] [id number] Univers 10:40:00 10:40:00 BAR katrin [facility] 2022-07-20 2022-07-20 Outpatient R JULIUS BRENNAN [facility] [id number] Univers 14:30:00 14:30:00 JULIUS BRENNAN [facility] 2022-07-19 2022-07-19 Abstract Pam [facility] [id number] 00:00:00 00:00:00 [facility] 2022-07-18 2022-07-18 [facility] [id number] Univers 13:40:00 13:40:00 BAR katrin [facility] 2022-07-17 2022-07-17 [facility] [id number] 14:00:00 15:00:00 Visit [facility] 2022-07-17 2022-07-[address] [facility] SLE [id number] SLE 13:37:03 13:37:03 JAYLIN 2022-07-16 2022-07-16 RefJorge A Beach [facility] [id number] Univers 00:00:00 00:00:00 HEALTH [id number] it y of [place] [id number] Juma as PRANAV?BLEA [id number] In vadim TAVAREZ [address] [place] MEDICAL OFFICE BUILDING 2022-07-16 2022-07-16 [facility] [id number] Univers 00:00:00 00:00:00 Bar GANN [id number] i [id number] [id number] In vadim [place] [id number] Branch BUILDING 2022-07-13 2022-07-13 Telephone Inez [facility] [id number] 00:00:00 00:00:00 Imani Reyes [facility] 2022-06-26 2022-07-02 [facility] Medical ICU [id number] [facility] 17:43:00 13:14:00 ANA ROSA 2022-06-26 2022-07-02 Hospital ER Brooks Ochoa [facility] [id number] 17:43:00 13:14:00 Encounter Ratna Florian [facility] 2022-07-02 2022-07-[address] [facility] [id number] [facility] 00:[facility] 00[facility]00 [facility] 2022-06-27 2022-06-27 Anesthesia Karime [facility] [id number] 09:58:00 10:55:00 Event Guanako Hanna [facility] 2022-06-27 2022-06-27 Surgery Em [facility] [id number] [facility] [address] 09:02:00 09:57:00 Carolin Hira [facility] 2022-06-26 2022-06-26 Outpatient [facility] [id number] [facility] 00:00:00 23:59:00 Efren 2022-06-26 2022-06-26 [facility] [id number] Univers 11:30:00 11:30:00 WILLI [id number] [facility] 2022-06-26 2022-06-26 Outpatient [facility] [id number] Univers 11:30:00 11:30:00 WILLI [facility] 2022-06-26 2022-06-26 Outpatient CHANEL TOLENTINO [id number] Chanel 00:00:00 00:00:00 RICHARD barkley 2022-06-26 2022-06-26 [facility] [id number] 00:00:00 00:00:00 ion Brooks [facility] 2022-06-26 2022-06-26 Hima Nixon [facility] [id number] [facility] 00:00:00 00:00:00 ion [facility] 2022-06-08 2022-06-08 Patient Jorge A Lyons [facility] [id number] [id number] Univers 00:00:00 00:00:00 Secure Msg PRIMARY [id number] ity [id number] [id number] In dical [address] 2022-06-08 2022-06-08 Refill [facility] [id number] [id number] Univers 00:00:00 00:00:00 Bar GANN [id number] [id number] [id number] In dical NAL 044 Branch BUILDING 2022-06-05 2022-06-05 Outpatient R LINDA MARSH [facility] [id number] Univers 10:24:39 23:59:00 LINDA MARSH i ty of [facility] 2022-06-05 2022-06-05 [facility] Maximo [facility] [id number] [id number] Univers 10:00:00 23:59:00 Encounter Linda GANN [id number] ity [facility] [id number] [id number] [facility] [address] 2022-05-18 2022-05-18 Telephone Jorge A Lyons [facility] [id number] Univers 00:00:00 00:00:00 PRIMARY [id number] it [id number] [id number] In dical [address] Results Test Description Test [...] Mildly decreased 60-89 G3a Mildly to moderately 45- 59 G3b Moderately to severely 30- 44 G4 Severly decreased 15-29 G5 Kidney failure <15Repo rted eGFR is based on the CK D-EPI 2020 equation that d oes not use a race coefficien tEstimated GFR is not as accurate as Creatinine Clearance in pr edicting glomerular filt ration rate. Estimated GFR i s not applicable for dialysis joss rosales Flotation Tender ID - [id number] 17:57:44 Test Item Value Reference Range Interpretation Comments MAGNESIUM (BEAKER) (test code = 1.9 mg/dL 1.6-2.6 627) Flotation Tender ID - [id number] 17:57:44 Test Item Value Reference Range Interpretation Comments PHOSPHORUS (BEAKER) (test code = 3.5 mg/dL 2.3-4.7 604) Flotation Tender ID - ADMINHEPATIC FUNCTION [id number] 17:57:44 Test Item Value Reference Range Interpretation [...] code = 58 U/L 6-55 H 347) Flotation Tender ID - ADMINPROTHROMBIN [id number] 17:21:32 Test Item Value Reference Range Interpretation Comments PROTIME (BEAKER) 14.6 seconds 11.9-14.2 H (test code = 759) INR (BEAKER) (test 1.21 See_Comment [Automat ed message] code = 370) The system Alminder generated this result transmitted ref erence range: <=5.90. The reference range was not used to int erpret this result as normal/abnormal . RECOMMENDED COUMADIN/WARFARIN INR THERAPY RANGESSTANDARD DOSE: 2.0 - 3.0 Includes: PROPHYLAXIS for venous thrombosis, systemic embolization; TREATMENT for venous thrombosis and/or pulmonary embolus.HIGH RISK: Target INR is 2.5-3.5 for patients with mechanical heart valves.CBC W/PLT COUNT & AUTO [id number] 17:13:11 Test Item Value Reference Range Interpretation [...] (test code = 2801) Drug screen, urine, [id number] 09:56:19 Test Item Value Reference Range Interpretation Comments Scan Result (test code = See scanned report [id number]) LYNDSAY (test code = LYNDSAY) See scanned report [facility], [id number] 09:56:19 Test Item Value Reference Range Interpretation Comments Scan Result (test code = See scanned report [id number]) LYNDSAY (test code = LYNDSAY) See scanned report [facility] S[facility]EN, URINE, [id number] 09:56:19 Test Item Value Reference Range Interpretation Comments SCAN RESULT (test code = See scanned report [id number]) See scanned reportANTI-MITOCHONDRIAL AB, REFLEX TO [id number] 10:08:47 Test Item Value Reference Range Interpretation Comments SCAN RESULT (test code = 3183221) HEPATITIS B PCR, [id number] 16:22:43 Test Item Value Reference Range Interpretation Comments HBV RESULT COMPONENT HBV DNA not detected HBV DNA not detected (BEAKER) (test code = 2701) This test uses a Real-Time Polymerase Chain Reaction (RT-PCR) methodology and was performed using YOU AmpliPrep/YOU TaqMan HBV Test, v2.0 ([employer]Reportable range for this assay is 20 - 170,000,000 IU per mL (1.30 - 8.23 Log IU/mL).PHOSPHATIDYLETHANOL, [id number] 10:47:03 Test Item Value Reference Range Interpretation Comments PHOSPHATIDYLETHANOL (PETH) See scanned (test code = 2731021) report See scanned reportPOC-Glucose [id number] 08:56:45 Test Item Value Reference Range Interpretation Comments POC-Glucose Meter (test 221 mg/dL 70-110 H : TE STED AT [facility] code = 1538) 6720 [facility], 770 30: Flotation Tender/Techni edwige ID = [id number] for David Saravia Lab Interpretation (test Abnormal code = 97738-2) [facility]Glucose [id number] 08:56:45 Test Item Value Reference Range Interpretation Comments POC-Glucose Meter (test 221 mg/dL 70-110 H : TE STED AT [facility] code = 1538) [address] [facility], 770 30: Flotation Tender/Techni edwige ID = [id number] for David Saravia Lab Interpretation (test Abnormal code = 38845-8) [facility] Angeles[facility]CT-[facility]UCOSE [id number] 08:56:45 Test Item Value Reference Range Interpretation Comments POC-GLUCOSE METER 221 mg/dL 70-110 H : TESTED A T [facility] 6720 (BEAKER) (test code = [facility] Artie [facility], 1538) [address]: Flotation Tender/Techni edwige ID = [id number] for David Saravia COMPREHENSIVE METABOLIC [id number] 04:26:22 Test Item Value Reference Range Interpretation [...] hemolyzed code = 347) EGFR (BEAKER) 104 Interpretati on of eGFR (test code = 1092) mL/min/1.73 [...] not appl icable for dialysis patien ts Flotation Tender ID - MELANIE WPROTHROMBIN TIME/[id number] 04:23:40 Test Item Value Reference Range Interpretation Comments PROTIME (BEAKER) 14.9 seconds 11.9-14.2 H (test code = 759) INR (BEAKER) (test 1.19 See_Comment [Automat ed message] code = 370) The system Alminder generated this result transmitted ref erence range: <=5.90. The reference range was not used to int erpret this result as normal/abnormal . RECOMMENDED COUMADIN/WARFARIN INR THERAPY RANGESSTANDARD DOSE: 2.0 - 3.0 Includes: PROPHYLAXIS for venous thrombosis, systemic embolization; TREATMENT for venous thrombosis and/or pulmonary embolus.HIGH RISK: Target INR is 2.5-3.5 for patients with mechanical heart valves.CBC W/PLT COUNT & AUTO [id number] 04:00:34 Test Item Value Reference Range Interpretation [...] PERCENT (BEAKER) (test code = 2801) POCT-GLUCOSE [id number] 22:32:07 Test Item Value Reference Range Interpretation Comments POC-GLUCOSE METER 227 mg/dL 70-110 H : TESTED A T [facility] 6720 (BEAKER) (test code = [facility], 1538) [address]: Flotation Tender/Techni edwige ID = [id number] for Isamar Brunson POCT-GLUCOSE [id number] 15:48:32 Test Item Value Reference Range Interpretation Comments POC-GLUCOSE METER 193 mg/dL 70-110 H : TESTED A T [facility] 6720 (BEAKER) (test code = [facility] [employer] [facility], 1538) [address]: Flotation Tender/Techni edwige ID = [id number] for Sa mirzaGautam marshall MR, ABDOMEN, [id number] 13:14:00Please perform with liver protocol/eovist Unlisted Reason for Exam - Click Yes and Enter Reason Below->Yes Unlisted Reason for Exam->[facility]rh[facility] : 1965 Sex: MFINAL REPORT TECHNIQUE: MRI of the abdomen WITHOUT and WITH intravenous contrast. INDICATION: Unlisted Reason for ExamCirrhosis. COMPARISON: Ultrasound from 06/28/2022. FINDINGS: LOWER THORAX: Unremarkable. LIVER: The liver contour is nodular. The increased interstitial T2 weighted signal in the liver is most likely due to fibrosis. No focal hepatic lesions. BILIARY: The gallbladder is d istended and contains sludge, but there is no [...] 2.Cirrhosis with sequelae of portal hypertension including splenomegalyand small esophageal varices. 3.The gallbladder is distended and contains sludge. No pericholecysticinflammation to suggest acute cholecystitis Signed: Cinthia Rogersp[facility]isc[facility] Verified Date/Time: 07/01/2022 13:14:01 Reading Location: [facility] C013Y CT Body Reading Room POCT-GLUCOSE [id number] 11:27:22 Test Item Value Reference Range Interpretation Comments POC-GLUCOSE METER 159 mg/dL 70-110 H : [facility] ([facility]) (test code = [facility], 1538) 29[address]: Flotation Tender/Techni edwige ID = [id number] for Gautam Newsome POCT-GLUCOSE [id number] 07:51:19 Test Item Value Reference Range Interpretation Comments POC-GLUCOSE METER 145 mg/dL 70-110 H : TESTED A T [facility] 6720 ([employer]cueTime) (test code = [facility], 1538) 27[address]: Flotation Tender/Techni edwige ID = [id number] for Gautam Newsome POCT-GLUCOSE [id number] 06:42:08 Test Item Value Reference Range Interpretation Comments POC-GLUCOSE METER 148 mg/dL 70-110 H : TESTED A T [facility] 6720 (BEAKER) (test code = [place], 1538) [address]: Flotation Tender/Techni edwige ID = [id number] for VENU TRAVIS COMPREHENSIVE METABOLIC [id number] 05:11:23 Test Item Value Reference Range Interpretation [...] not appl icable for dialysis patien ts Flotation Tender ID - PIAYA LCBC W/PLT COUNT & AUTO [id number] 04:56:15 Test Item Value Reference Range Interpretation [...] PERCENT (BEAKER) (test code = 2801) PROTHROMBIN TIME/[id number] 04:37:26 Test Item Value Reference Range Interpretation Comments PROTIME (BEAKER) 16.1 seconds 11.9-14.2 H (test code = 759) INR (BEAKER) (test 1.38 See_Comment [Automat ed message] code = 370) The system Alminder generated this result transmitted ref erence range: <=5.90. The reference range was not used to int erpret this result as normal/abnormal . RECOMMENDED COUMADIN/WARFARIN INR THERAPY RANGESSTANDARD DOSE: 2.0 - 3.0 Includes: PROPHYLAXIS for venous thrombosis, systemic embolization; TREATMENT for venous thrombosis and/or pulmonary embolus.HIGH RISK: Target INR is 2.5-3.5 for patients with mechanical heart valves.POCT-GLUCOSE [id number] 23:53:01 Test Item Value Reference Range Interpretation Comments POC-GLUCOSE METER 187 mg/dL 70-110 H : TESTED A T [facility] 6720 (BEAKER) (test code = [facility] Alva [facility], 1538) 88906: Flotation Tender/Techni edwige ID = [id number] for Naila Parsons POCT-GLUCOSE [id number] 17:11:19 Test Item Value Reference Range Interpretation Comments POC-GLUCOSE METER 160 mg/dL 70-110 H : TESTED A T [facility] 6720 (BEAKER) (test code [facility], = 1538) [address]: Flotation Tender/Techni edwige ID = [id number] for BARAK WYMAN POCT-GLUCOSE [id number] 13:20:03 Test Item Value Reference Range Interpretation Comments POC-GLUCOSE METER 249 mg/dL 70-110 H : TESTED A T [facility] 6720 (BEAKER) (test code [facility], = 1538) 09878: Flotation Tender/Techni edwige ID = [id number] for BARAK WYMAN THROMBOELASTOGRAPH (TEG)2022-06-30 09:19:46 Test Item Value Reference [...] % 0.0-5.0 code = 1414) COMPREHENSIVE METABOLIC [id number] 08:27:43 Test Item Value Reference Range Interpretation [...] 30-44 G4 Severl y decreased 15-29 G5 Kidne y failure <15Reported eGF R is based on the CKD-EPI 2020 equation that d oes not use a race coefficientEsti mated GFR is not as accur ate as Creatinine Estefani bj in predicting glom erular filtration rate . Estimated GFR is not appl icable for dialysis patien ts Flotation Tender ID - CHRISTIANA [id number] 06:38:39 Test Item Value Reference Range Interpretation Comments FIBRINOGEN LEVEL (BEAKER) (test 312 mg/dl 225-434 code = 658) PROTHROMBIN TIME/[id number] 06:38:32 Test Item Value Reference Range Interpretation Comments PROTIME (BEAKER) 16.9 seconds 11.9-14.2 H (test code = 759) INR (BEAKER) (test 1.46 See_Comment [Automat ed message] code = 370) The system Alminder generated this result transmitted ref erence range: <=5.90. The reference range was not used to int erpret this result as normal/abnormal . RECOMMENDED COUMADIN/WARFARIN INR THERAPY RANGESSTANDARD DOSE: 2.0 - 3.0 Includes: PROPHYLAXIS for venous thrombosis, systemic embolization; TREATMENT for venous thrombosis and/or pulmonary embolus.HIGH RISK: Target INR is 2.5-3.5 for patients with mechanical heart valves.PROTHROMBIN TIME/[id number] 06:38:14 Test Item Value Reference Range Interpretation Comments PROTIME (BEAKER) 16.9 seconds 11.9-14.2 H (test code = 759) INR (BEAKER) (test 1.47 See_Comment [Automat ed message] code = 370) The system Alminder generated this result transmitted ref erence range: <=5.90. The reference range was not used to int erpret this result as normal/abnormal . RECOMMENDED COUMADIN/WARFARIN INR THERAPY RANGESSTANDARD DOSE: 2.0 - 3.0 Includes: PROPHYLAXIS for venous thrombosis, systemic embolization; TREATMENT for venous thrombosis and/or pulmonary embolus.HIGH RISK: Target INR is 2.5-3.5 for patients with mechanical heart valves.CBC W/PLT COUNT & AUTO [id number] 06:32:12 Test Item Value Reference Range Interpretation [...] 417) IMMATURE GRANULOCYTES-RELATIVE 1 % 0-1 PERCENT (AKER) (test code = 2801) POCT-GLUCOSE [id number] 06:10:10 Test Item Value Reference Range Interpretation Comments POC-GLUCOSE METER 153 mg/dL 70-110 H : [facility] (test code = [facility], [facility]) [address]: Flotation Tender/Techni edwige ID = [id number] for Ne lson (contract), Colleen xis POCT-GLUCOSE [id number] 02:21:17 Test Item Value Reference Range Interpretation Comments POC-GLUCOSE METER 170 mg/dL 70-110 H : [facility] ([facility] (test code = [facility], 153) [address]: Flotation Tender/Techni edwige ID = [id number] for Sp tasia (contract), Sandi a POCT-GLUCOSE [id number] 00:34:09 Test Item Value Reference Range Interpretation Comments POC-GLUCOSE METER 208 mg/dL 70-110 H : [facility] (test code = [facility], [facility]) [address]: Flotation Tender/Techni edwige ID = [id number] for Ne lson (contract), Colleen xis POCT-GLUCOSE [id number] 17:59:46 Test Item Value Reference Range Interpretation Comments POC-GLUCOSE METER 236 mg/dL 70-110 H : Notified RN/MD: ([facility]) (test code = TESTED AT [place] [id number] 153) [facility], [address]: Flotation Tender/Techni edwige ID = [id number] for MITCHELL YES, CLAUS HEMOGLOBIN AND [id number] 17:53:09 Test Item Value Reference Range Interpretation Comments HEMOGLOBIN (BEAKER) (test code = 7.7 GM/DL 13.7-17.5 L 410) HEMATOCRIT (BEAKER) (test code = 23.8 % 40.1-51.0 L 411) Flotation Tender ID - [id number] C PCR, [id number] 15:46:48 Test Item Value Reference Range Interpretation Comments HCV RESULT COMPONENT HCV RNA not detected HCV RNA not detected (BEAKER) (test code = 2699) This test uses a Real-Time Polymerase Chain Reaction (RT-PCR) methodology and was performed using YOU Ampliprep/YOU TaqMan HCV test kit version 2.0 ([employer]).Reportable range for this assay is 15 - 100,000,000 IU per mL (1.18 - 8.00 Log IU/mL).2D Echo W/Doppler(CW/PW/Color)2022-06-29 14:39:50 Ejection FractionSLEH ECHO [facility] W/Doppler(CW/PW/Color)2022-06-29 14:39:50Ejection [facility]SLEH [facility]CHO [facility] RBC 2022-06-29 13:21:00 Test Item Value Reference Range Interpretation Comments CROSSMATCH (test code = 2264) COMPATIBLE Unit ABO (test code = A Neg 4562967) UNIT NUMBER (test code = [id number] 934-0) Status (test code = 4597913) READY Blood Bank Product (test code RED BLOOD CELLS = 2263) PRODUCT CODE (test code = Z9964C50 933-2) [facility]uk[facility]Red [id number] 13:21:00 Test Item Value Reference Range Interpretation Comments CROSSMATCH (test code = 2264) COMPATIBLE Unit ABO (test code = A Neg 7182140) UNIT NUMBER (test code = [id number] 934-0) Status (test code = 1506504) READY Blood Bank Product (test code RED BLOOD CELLS = 2263) PRODUCT CODE (test code = K4451T27 933-2) [facility] Angeles[facility]SE [id number] 12:30:58 Test Item Value Reference Range Interpretation Comments POC-GLUCOSE METER 299 mg/dL 70-110 H : Notified RN/MD: (CHRISTIANO) (test code = TESTED AT [facility] 6363 6242) STEFFI [facility], [address]: Flotation Tender/Techni edwige ID = [id number] for MITCHELL YES, CLAUS CBC W/PLT COUNT & AUTO [id number] 10:56:05 Test Item Value Reference Range Interpretation [...] PERCENT (BEAKER) (test code = 2801) POCT-GLUCOSE [id number] 06:41:24 Test Item Value Reference Range Interpretation Comments POC-GLUCOSE METER 186 mg/dL 70-110 H : TESTED A T [facility] 6720 (BEAKER) (test code = [place], 1538) [address]: Flotation Tender/Techni edwige ID = [id number] for Karol sewell (contract), Colleen xis CBC (HEMOGRAM ONLY)2022-06-29 05:55:27 Test Item Value [...] WBC 0-0 (test code = 413) CALCIUM, [id number] 05:41:59 Test Item Value Reference Range Interpretation Comments CALCIUM IONIZED (BEAKER) (test 1.16 mmol/L 1.12-1.27 code = 698) PH, BLOOD (BEAKER) (test code = 7.34 1810) [id number] 05:30:10 Test Item Value Reference Range Interpretation Comments MAGNESIUM (BEAKER) (test code = 1.8 mg/dL 1.6-2.6 627) Flotation Tender CITLALI VILLEDA MCOMPREHENSIVE METABOLIC [id number] 05:30:09 Test Item Value Reference Range Interpretation [...] eGF R is based on the CKD-EPI 202 equation that d oes not use a race coefficientEsti mated GFR is not as accur ate as Creatinine Estefani bj in predicting glom erular filtration rate . Estimated GFR is not appl icable for dialysis patien ts Flotation Tender ID - CHRISTIANA [id number] 05:03:31 Test Item Value Reference Range Interpretation Comments PARTIAL THROMBOPLASTIN TIME 33.4 seconds 22.5-36.0 (BEAKER) (test code = 760) PROTHROMBIN [id number] 05:02:32 Test Item Value Reference Range Interpretation Comments PROTIME (BEAKER) 15.7 seconds 11.9-14.2 H (test code = 759) INR (BEAKER) (test 1.28 See_Comment [Automat ed message] code = 370) The system Alminder generated this result transmitted ref erence range: <=5.90. The reference range was not used to int erpret this result as normal/abnormal . RECOMMENDED COUMADIN/WARFARIN INR THERAPY RANGESSTANDARD DOSE: 2.0 - 3.0 Includes: PROPHYLAXIS for venous thrombosis, systemic embolization; TREATMENT for venous thrombosis and/or pulmonary embolus.HIGH RISK: Target INR is 2.5-3.5 for patients with mechanical heart valves.POCT-GLUCOSE [id number] 22:37:17 Test Item Value Reference Range Interpretation Comments POC-GLUCOSE METER 142 mg/dL 70-110 H : TESTED A T [facility] 6720 ([facility]cue[facility]) (test code = [facility], 1538) [address]: Flotation Tender/Techni edwige ID = [id number] for Karol sewell (contract)Colleen POCT-GLUCOSE [id number] 16:13:39 Test Item Value Reference Range Interpretation Comments POC-GLUCOSE METER 188 mg/dL 70-110 H : TESTED A T [facility] 6720 ([employer]) (test code = [facility], 1538) 475[address]: Flotation Tender/Techni edwige ID = [id number] for Ina Meredith ANTI-NUCLEAR ANTIBODY (BEATA)2022-06-28 14:16:56 Test Item Value Reference Range Interpretation Comments ANTI-NUCLEAR ANTIBODY (BEATA) (CHRISTIANO) Negative Negative (test code = 418) Test performed by IFA method.Test performed by IFA method.U/S, ABDOMINAL, [id number] 13:44:00Reason for exam:->Cirrhosis [facility] : 1965 Sex: MFINALREPORT TECHNIQUE: [...] gallbladder without acute cholecystitis Signed: Cinthia Rogers MDRgalina Verified Date/Time: 06/28/2022 13:44:08 HEMOGLOBIN AND [id number] 11:24:21 Test Item Value Reference Range Interpretation Comments HEMOGLOBIN (BEAKER) (test code = 7.8 GM/DL 13.7-17.5 L 410) HEMATOCRIT (BEAKER) (test code = 23.4 % 40.1-51.0 L 411) Flotation Tender ID - 6000Operator ID - 6000POCT-GLUCOSE [id number] 10:48:53 Test Item Value Reference Range Interpretation Comments POC-GLUCOSE METER 132 mg/dL 70-110 H : TESTED A T [facility] 6720 (BEAKER) (test code = [facility], 1538) [address]: Flotation Tender/Techni edwige ID = [id number] for Chelsi Joseph POCT-GLUCOSE [id number] 09:02:39 Test Item Value Reference Range Interpretation Comments POC-GLUCOSE METER 147 mg/dL 70-110 H : TESTED A T [facility] 6720 (BEAKER) (test code = [facility], 1538) [address]: Flotation Tender/Techni edwige ID = [id number] for Chelsi Joseph COMPREHENSIVE METABOLIC [id number] 06:41:05 Test Item Value Reference Range Interpretation [...] St age Description sq m Result G1 Albetra l or high >=90 G2 Mildly decreased [...] not appl icable for dialysis patien ts Flotation Tender ID - CHRISTIANA [id number] 06:41:05 Test Item Value Reference Range Interpretation Comments MAGNESIUM (BEAKER) (test code = 1.8 mg/dL 1.6-2.6 627) Flotation Tender ID - CHRISTIANA MCBC (HEMOGRAM ONLY)2022-06-28 06:37:04 [...] WBC 0-0 (BEAKER) (test code = 413) [id number] 06:14:47 Test Item Value Reference Range Interpretation Comments PARTIAL THROMBOPLASTIN TIME 29.0 seconds 22.5-36.0 (BEAKER) (test code = 760) PROTHROMBIN TIME/[id number] 06:14:11 Test Item Value Reference Range Interpretation Comments PROTIME (BEAKER) 15.3 seconds 11.9-14.2 H (test code = 759) INR (BEAKER) (test 1.23 See_Comment [Automat ed message] code = 370) The system Alminder generated this result transmitted ref erence range: <=5.90. The reference range was not used to int erpret this result as normal/abnormal . RECOMMENDED COUMADIN/WARFARIN INR THERAPY RANGESSTANDARD DOSE: 2.0 - 3.0 Includes: PROPHYLAXIS for venous thrombosis, systemic embolization; TREATMENT for venous thrombosis and/or pulmonary embolus.HIGH RISK: Target INR is 2.5-3.5 for patients with mechanical heart valves.POCT-GLUCOSE [id number] 23:04:59 Test Item Value Reference Range Interpretation Comments POC-GLUCOSE METER 181 mg/dL 70-110 H : TESTED A T [facility] 6720 (SPENCER) (test code = [place], 1538) [address]: Flotation Tender/Techni edwige ID = [id number] for Do , Meche [id number] 20:46:29 Test Item Value Reference Range Interpretation Comments FERRITIN (BEAKER) (test code = 59.05 ng/mL 5.00-275.00 361) Flotation Tender ID - ADMINHEPATITIS B CORE ANTIBODY, [id number] 20:12:45 Test Item Value Reference Range Interpretation Comments HEPATITIS B CORE TOTAL ANTIBODY Reactive Nonreactive A (CHRISTIANO) (test code = 497) Flotation Tender ID - PIVALENTINE LHEPATITIS B SURFACE [id number] 20:12:39 Test Item Value Reference Range Interpretation Comments HEPATITIS B SURFACE ANTIBODY 4789.9 mIU/mL <8.0 H (CHRISTIANO) (test code = 647) Flotation Tender ID - PIAYA LOperator ID - SEBAS LHEMOGLOBIN AND [id number] 20:10:40 Test Item Value Reference Range Interpretation Comments HEMOGLOBIN (BEAKER) (test code = 8.0 GM/DL 13.7-17.5 L 410) HEMATOCRIT (BEAKER) (test code = 24.7 % 40.1-51.0 L 411) Flotation Tender ID - 6000Operator ID - 6000HEPATITIS B SURFACE [id number] 19:51:43 Test Item Value Reference Range Interpretation Comments HEPATITIS B SURFACE ANTIGEN (2) Nonreactive Nonreactive (BEAKER) (test code = 2585) Specimen is considered negative for HBsAg.HEPATITIS C [id number] 19:51:43 Test Item Value Reference Range Interpretation Comments HEPATITIS C ANTIBODY (BEAKER) Nonreactive Nonreactive (test code = 367) Flotation Tender ID - SEBAS LALPHA FETOPROTEIN (AFP), TUMOR [id number] 19:46:42 Test Item Value Reference Range Interpretation Comments ALPHA-FETOPROTEIN (BEAKER) (test code < ng/mL <10.0 = 1094) Flotation Tender ID - SEBAS LHEPATITIS A ANTIBODY, [id number] 19:20:02 Test Item Value Reference Range Interpretation Comments HEPATITIS A IGG ANTIBODY (BEAKER) Nonreactive Nonreactive (test code = 2797) Flotation Tender ID - SEBAS LHEPATITIS A ANTIBODY, [id number] 19:19:56 Test Item Value Reference Range Interpretation Comments HEPATITIS A IGM ANTIBODY (BEAKER) Nonreactive Nonreactive (test code = 498) Flotation Tender ID - SEBAS TQWFYN-0-[id number] 18:54:12 Test Item Value Reference Range Interpretation Comments ALPHA-1 ANTITRYPSIN 144.40 mg/dL 90.00-200.00 Specimen slightly (BEAKER) (test code = hemoly zed 502) Flotation Tender ID - SEBAS LIZETH, TIBC, % SAT. (WITHOUT FERRITIN)2022-06-27 18:53:30 Test Item Value Reference Range Interpretation Comments IRON (BEAKER) (test code = 547) 34.0 ug/dL 40.0-160.0 L TOTAL IRON BINDING CAPACITY 299 ug/dL 250-450 (BEAKER) (test code = 769) IRON % SATURATION (2) (BEAKER) 11 % 20-55 L (test code = 2590) Flotation Tender ID - PIAYA LPOCT-GLUCOSE [id number] 16:30:50 Test Item Value Reference Range Interpretation Comments POC-GLUCOSE METER 199 mg/dL 70-110 H : TESTED A T [facility] 6720 (BEAKER) (test code = [facility], 1538) [address]: Flotation Tender/Techni edwige ID = [id number] for Chelsi Joseph POCT-GLUCOSE [id number] 12:00:48 Test Item Value Reference Range Interpretation Comments POC-GLUCOSE METER 182 mg/dL 70-110 H : TESTED A T [facility] 6720 (BEAKER) (test code = [facility], 1538) [address]: Flotation Tender/Techni edwige ID = [id number] for Nico Lakhani [id number] 11:47:33 Test Item Value Reference Range Interpretation Comments FIBRINOGEN LEVEL (BEAKER) (test 283 mg/dl 225-434 code = 658) HEMOGLOBIN AND [id number] 11:43:51 Test Item Value Reference Range Interpretation Comments HEMOGLOBIN (BEAKER) (test code = 9.5 GM/DL 13.7-17.5 L 410) HEMATOCRIT (BEAKER) (test code = 28.8 % 40.1-51.0 L 411) Flotation Tender ID - 6000POCT-GLUCOSE [id number] 06:17:14 Test Item Value Reference Range Interpretation Comments POC-GLUCOSE METER 207 mg/dL 70-110 H : TESTED A T [facility] 6720 (BEAKER) (test code = [facility], 1538) [address]: Flotation Tender/Techni edwige ID = [id number] for MARIE VARGHESE COMPREHENSIVE METABOLIC [id number] 03:37:28 Test Item Value Reference Range Interpretation [...] not appl icable for dialysis patien ts Flotation Tender ID - CHRISTIANA [id number] 03:37:28 Test Item Value Reference Range Interpretation Comments MAGNESIUM (BEAKER) (test code = 1.7 mg/dL 1.6-2.6 627) Flotation Tender ID - CHRISTIANA [id number] 03:27:04 Test Item Value Reference Range Interpretation Comments PARTIAL THROMBOPLASTIN TIME 29.6 seconds 22.5-36.0 (BEAKER) (test code = 760) PROTHROMBIN [id number] 03:26:26 Test Item Value Reference Range Interpretation Comments PROTIME (BEAKER) 16.5 seconds 11.9-14.2 H (test code = 759) INR (BEAKER) (test 1.42 See_Comment [Automat ed message] code = 370) The system [employer] generated this result transmitted ref erence range: [...] (BEAKER) (test code = 413) HEMOGLOBIN AND [id number] 00:12:37 Test Item Value Reference Range Interpretation Comments HEMOGLOBIN (BEAKER) (test code = 9.6 GM/DL 13.7-17.5 L 410) HEMATOCRIT (BEAKER) (test code = 30.0 % 40.1-51.0 L 411) Flotation Tender ID - [id number]-GLUCOSE [id number] 00:10:44 Test Item Value Reference Range Interpretation Comments POC-GLUCOSE METER 222 mg/dL 70-110 H : TESTED A T [facility] 6720 (BEAKER) (test code = [place], 1538) [address]: Flotation Tender/Techni edwige ID = [id number] for MARIE VARGHESE HIGH SENSITIVITY TROPONIN [id number] 20:06:54 Test Item Value Reference Range Interpretation Comments HIGH SENSITIVITY 33 pg/ml See_Comment [Automated message] TROPONIN I (test code = The system which [id number]) generated this result transmitted ref erence range: <=35. Th e reference range was not used to int erpret this result as normal/abnormal . Flotation Tender ID - TEOVALENTINE LThe WOODWIND REEDS CUTTER STAT High Sensitivity Troponin-I results should be used in conjunction with other diagnostic information such as ECG, clinical observations and information, and patient symptoms to aid in the diagnosis of HI.[id number] 20:01:17 Test Item Value Reference Range Interpretation Comments LIPASE (BEAKER) (test code = 749) 19 U/L 8-78 Flotation Tender ID - TEOAYA LCREATINE KINASE (CK)2022-06-26 20:01:17 Test Item Value Reference Range Interpretation Comments CREATINE KINASE TOTAL (BEAKER) (test 36 U/L 29-200 code = 380) Flotation Tender ID - TEOAYA LCOMPREHENSIVE METABOLIC [id number] 20:01:16 Test Item Value Reference Range Interpretation [...] not appl icable for dialysis patien ts Flotation Tender ID - SEBAS [id number] 19:58:16 Test Item Value Reference Range Interpretation Comments ETHANOL (BEAKER) < mg/dL See_Comment [Automated message] The (test code = 400) system [employer] ch generated this result tra nsmitted reference range : <=10. The reference r keegan was not used to int erpret this result as normal/abnormal . Flotation Tender ID - SEBAS [id number] 19:42:35 Test Item Value Reference Range Interpretation Comments PARTIAL THROMBOPLASTIN TIME 28.6 seconds 22.5-36.0 (BEAKER) (test code = 760) PROTHROMBIN [id number] 19:41:53 Test Item Value Reference Range Interpretation Comments PROTIME (BEAKER) 16.0 seconds 11.9-14.2 H (test code = 759) INR (BEAKER) (test 1.36 See_Comment [Automat ed message] code = 370) The system [employer] h generated this result transmitted ref erence range: <=5.90. The reference range was not used to int erpret this result as normal/abnormal . RECOMMENDED COUMADIN/WARFARIN INR THERAPY RANGESSTANDARD DOSE: 2.0 - 3.0 Includes: PROPHYLAXIS for venous thrombosis, systemic embolization; TREATMENT for venous thrombosis and/or pulmonary embolus.HIGH RISK: Target INR is 2.5-3.5 for patients with mechanical heart valves.CBC W/PLT COUNT & AUTO [id number] 19:26:51 Test Item Value Reference Range Interpretation [...] (BEAKER) (test code = 2801) HEMOGLOBIN AND [id number] 18:55:46 Test Item Value Reference Range Interpretation Comments HEMOGLOBIN (BEAKER) (test code = 9.8 GM/DL 13.7-17.5 L 410) HEMATOCRIT (BEAKER) (test code = 29.7 % 40.1-51.0 L 411) Flotation Tender ID - [id number]
[2022-07-28] MEDS ORDERED: PANTOPRAZOLE 40 MG INJ ONE (09:57)
[2022-07-28] MEDS ORDERED: NA CHLORIDE 0.9% 1,000 ML ONE (09:57)
[2022-07-28] MEDS ORDERED: DIAZEPAM 10 MG/2 ML INJ SYRINGE ONE ×2 (09:57→10:55)
[2022-07-28] MEDS ORDERED: MULTIVITAMINS 10 ML VIAL (INJ) IV ONE (09:58)
[2022-07-28 10:31] LABS: Absolute Lymphocytes (CBC) 0.6 K/uL (0.7-4.9); Hematocrit 36.9 % (39.6-49.0); Lymphocytes % 13.7 % (15.3-44.8); MCV 86.8 fL (80-100); MPV 8.4 fL (7.6-11.3); RBC Red Blood Cell Count 4.25 M/uL (4.33-5.43)
[2022-07-28 10:35] LABS: Protime INR 1.17
[2022-07-28 10:57] LABS: Albumin 4.3 g/dL (3.4-5.0); Bilirubin Direct 0.4 mg/dL (0-0.2); Bilirubin Total 1.3 mg/dL (0.2-1.0); Ferritin 142.8 ng/mL (26-388); Magnesium 1.9 mg/dL (1.8-2.4); Phosphorus 3.6 mg/dL (2.5-4.9); Potassium 3.6 mmol/L (3.5-5.1); Protein, Total 8.9 g/dL (6.4-8.2); Thyroid Stimulating Hormone 2.06 uIU/mL (0.360-3.740); Troponin High Sensitivity 8.4 pg/mL (<58.9)
--- NOTE | 2022-07-28 11:26 | ER ---
Nurse's Notes [facility] Name: Eitan Gonzalez Age: 57 yrs Sex: Male : 1965 Arrival Date: 07/28/2022 Time: 09:15 Bed 8 Private MD: Diagnosis: Alcoholic cirrhosis of liver;Abdominal pain, Generalized;Dehydration Presentation: 07/28 09:21 Chief complaint: Patient states: sever abd pain, n/v, hx of gastroparesis, cirrhosis , iw started this morning. Coronavirus screen: At this time, the client does not indicate any symptoms associated with coronavirus-19. Ebola Screen: Patient negative for fever greater than or equal to 101.5 degrees Fahrenheit, and additional compatible Ebola Virus Disease symptoms Patient denies exposure to infectious person. Patient denies travel to an Ebola-affected area in the 21 days before illness onset. No symptoms or risks identified at this time. Initial Sepsis Screen: Does the patient meet any 2 criteria? No. Patient's initial sepsis screen is negative. Does the patient have a suspected source of infection? No. Patient's initial sepsis screen is negative. Risk Assessment: Do you want to hurt yourself or someone else? Patient reports no desire to harm self or others. Onset of symptoms was July 28, 2022. 09:21 Method Of Arrival: Wheelchair iw 09:21 Acuity: NALINI 3 iw Historical: - Allergies: 09:22 Trulicity; iw - PMHx: 09:22 Alcoholism; cirrhosis of liver; diabetes mellitus; enlarged spleen; Hypertensive iw disorder; - Immunization history:: Client reports having NOT received the Covid vaccine. - Social history:: Smoking status: Patient denies any tobacco usage or history of. Patient/guardian denies using alcohol. Screenin:55 Abuse screen: Denies threats or abuse. Denies injuries from another. Nutritional db screening: No deficits noted. Tuberculosis screening: No symptoms or risk factors identified. Fall Risk None identified. No fall in past 12 months (0 pts). No secondary diagnosis (0 pts). IV access (20 points). Ambulatory Aid- None/Bed Rest/Nurse Assist (0 pts). Gait- Normal/Bed Rest/Wheelchair (0 pts) Mental Status- Oriented to own ability (0 pts). Total Coffey Fall Scale indicates No Risk (0-24 pts). Assessment: :55 Reassessment: Patient appears in no apparent distress at this time. No changes from db previously documented assessment. Patient is alert, oriented x 3, equal unlabored respirations, skin warm/dry/pink. Reassessment: started with Nausea and Vomiting and pain this AM. Missed GI appointment on states due to "spitting up blood". General: Appears in no apparent distress. comfortable, Behavior is calm, cooperative, appropriate for age, quiet. Pain: Complains of pain in abdomen Pain currently is 10 out of 10 on a pain scale. Pain began this AM. Neuro: No deficits noted. Level of Consciousness is awake, alert, obeys commands, Oriented to person, place, time, Speech is normal, Facial symmetry appears normal. Cardiovascular: No deficits noted. Respiratory: No deficits noted. GI: Bowel sounds present X 4 quads. Abd is soft Reports cramping, nausea, vomiting. : No deficits noted. EENT: No signs and/or symptoms were reported regarding the EENT system. Derm: No deficits noted. Musculoskeletal: No deficits noted. 11:03 Reassessment: Patient appears in no apparent distress at this time. Patient and/or db family updated on plan of care and expected duration. Pain level reassessed. Patient is alert, oriented x 3, equal unlabored respirations, skin warm/dry/pink. Pain: Complains of pain in abdomen. 12:00 Reassessment: Patient appears in no apparent distress at this time. No changes from db previously documented assessment. Patient and/or family updated on plan of care and expected duration. Pain level reassessed. 13:00 Reassessment: Patient appears in no apparent distress at this time. No changes from db previously documented assessment. Patient and/or family updated on plan of care and expected duration. Pain level reassessed. Patient is alert, oriented x 3, equal unlabored respirations, skin warm/dry/pink. 13:51 Reassessment: Patient appears in no apparent distress at this time. No changes from db previously documented assessment. Patient and/or family updated on plan of care and expected duration. Pain level reassessed. Patient is alert, oriented x 3, equal unlabored respirations, skin warm/dry/pink. Vital Signs: 09:21 BP 188 / 110; Pulse 107; Resp 16; Temp 97.1; Pulse Ox 99% ; Weight 99.79 kg; Height 6 iw ft. 0 in. (182.88 cm); Pain 9/10; 10:30 BP 187 / 49; Pulse 101; Resp 20; Pulse Ox 99% ; db 10:41 Pain 10/10; db 11:00 BP 213 / 102; Pulse 105; Resp 20; Pulse Ox 99% ; Pain 8/10; db 11:30 BP 191 / 103; Pulse 102; Resp 18; Pulse Ox 100% ; iw 11:45 BP 202 / 110; Pulse 86; Resp 16; Pulse Ox 99% ; Pain 7/10; db 13:53 BP 194 / 110; Pulse 108; Resp 18; Pulse Ox 100% ; Pain 7/10; db 09:21 Body Mass Index 29.84 (99.79 kg, 182.88 cm) iw ED Course: 09:15 Patient arrived in ED. as 09:21 Norah Wright FNP-C is PHCP. snw 09:21 Sebastian Browne MD is Attending Physician. snw 09:22 Triage completed. iw 09:22 Arm band placed on. iw 09:24 Sharon Mcmahon, SUZI is Primary Nurse. db 10:00 Inserted saline lock: 20 gauge in right antecubital area, using aseptic technique. db Blood collected. 11:25 Tao Woods is Hospitalizing Provider. snw 13:32 SARS RAPID Sent. iw 13:59 Patient has correct armband on for positive identification. Placed in gown. Bed in low db position. Call light in reach. Side rails up X 1. Client placed on continuous cardiac and pulse oximetry monitoring. NIBP monitoring applied. Warm blanket given. 14:01 Report given to SUZI Giles. db 14:01 No provider procedures requiring assistance completed. Patient admitted, IV remains in db place. intact. Administered Medications: 10:05 Drug: Banana Bag - (NS 0.9% 1000 ml, foLIC Acid 1 mg, Thiamine 100 mg, Multivitamin 1 db amp) Route: IV; Rate: calculated rate; Site: right antecubital; 12:05 Follow up: Response: No adverse reaction; IV Status: Completed infusion; IV Intake: db 1000ml 10:05 Drug: ProTONIX (pantoprazole) 40 mg Route: IVP; Site: right antecubital; db 10:41 Follow up: Response: No adverse reaction db 10:05 Drug: Valium (diazepam) 5 mg Route: IVP; Site: right antecubital; db 10:40 Follow up: Response: No adverse reaction db 10:58 Drug: Valium (diazepam) 10 mg Route: IM; Site: Ventrogluteal RIGHT; db 11:30 Follow up: Response: No adverse reaction db 11:35 Drug: Metoprolol 5 mg Route: IVP; Site: right antecubital; iw 11:55 Drug: Metoprolol 5 mg Route: IVP; Site: right antecubital; db 12:30 Follow up: Response: No adverse reaction db 12:45 Follow up: Response: No adverse reaction db Medication: 09:55 VIS not applicable for this client. db Intake: 12:05 IV: 1000ml; Total: 1000ml. db Outcome: 11:25 Decision to Hospitalize by Provider. snw 14:01 Admitted to Tele accompanied by nurse, via stretcher, on monitor. db 14:01 Condition: stable 14:01 Instructed on the need for admit. 14:32 Patient left the ED. iw Signatures: Norah Wright, ELECTRICIAN MASTER-C ELECTRICIAN MASTER-CsnBrandi Gamboa Irene, RN RN iw Sharon Mcmahon, RN RN db Corrections: (The following items were deleted from the chart) 13:55 12:00 BP 206 / 117; Pulse 87bpm; Resp 16bpm; Pulse Ox 99%; db db 18:34 18:33 Response: No adverse reaction db db
--- NOTE | 2022-07-28 11:26 | EDPHYS ---
Physician Documentation [facility] Name: Eitan Gonzalez Age: 57 yrs Sex: Male : 1965 Arrival Date: 07/28/2022 Time: 09:15 Bed 8 Private MD: JACQUIE Physician Sebastian Browne HPI: 07/28 09:49 This 57 yrs old Male presents to ER via Wheelchair with complaints of Abdominal Pain, snw Nausea/Vomiting. 09:49 The patient presents with abdominal pain that is diffuse. Onset: The symptoms/episode snw began/occurred gradually, 4 week(s) ago, and became worse today, and became persistent. The symptoms do not radiate. Associated signs and symptoms: Pertinent positives: nausea and vomiting, Pertinent negatives: blood in stools, vomiting blood. The symptoms are described as constant. Severity of pain: At its worst the pain was severe incapacitating. The patient has experienced similar episodes in the past, chronically. pt was seen in this ED 07/21/22, 07/24/22, [facility] 07/26/22, and today . Historical: - Allergies: : Trulicity; iw - PMHx: : Alcoholism; cirrhosis of liver; diabetes mellitus; enlarged spleen; Hypertensive iw disorder; - Immunization history:: Client reports having NOT received the Covid vaccine. - Social history:: Smoking status: Patient denies any tobacco usage or history of. Patient/guardian denies using alcohol. ROS: 09:48 Eyes: Negative for injury, pain, redness, and discharge, ENT: Negative for injury, snw pain, and discharge, Neck: Negative for injury, pain, and swelling, Cardiovascular: Negative for chest pain, palpitations, and edema, Respiratory: Negative for shortness of breath, cough, wheezing, and pleuritic chest pain. 09:48 Back: Negative for injury and pain, : Negative for injury, bleeding, discharge, and swelling, MS/Extremity: Negative for injury and deformity, Skin: Negative for injury, rash, and discoloration, Neuro: Negative for headache, weakness, numbness, tingling, and seizure, Psych: Negative for depression, anxiety, suicide ideation, homicidal ideation, and hallucinations. 09:48 Constitutional: Positive for body aches, fatigue, malaise, poor PO intake, weight loss, 45#. 09:48 Abdomen/GI: Positive for abdominal pain, nausea and vomiting. Exam: 09:42 Head/Face: Normocephalic, atraumatic. Eyes: Pupils equal round and reactive to light, snw extra-ocular motions intact. Lids and lashes normal. Conjunctiva and sclera are non-icteric and not injected. Cornea within normal limits. Periorbital areas with no swelling, redness, or edema. 09:42 Neck: Trachea midline, no thyromegaly or masses palpated, and no cervical lymphadenopathy. Supple, full range of motion without nuchal rigidity, or vertebral point tenderness. No Meningismus. Chest/axilla: Normal chest wall appearance and motion. Nontender with no deformity. No lesions are appreciated. 09:42 Respiratory: Lungs have equal breath sounds bilaterally, clear to auscultation and percussion. No rales, rhonchi or wheezes noted. No increased work of breathing, no retractions or nasal flaring. 09:42 Back: No spinal tenderness. No costovertebral tenderness. Full range of motion. MS/ Extremity: Pulses equal, no cyanosis. Neurovascular intact. Full, normal range of motion. Neuro: Awake and alert, GCS 15, oriented to person, place, time, and situation. Cranial nerves II-XII grossly intact. Motor strength 5/5 in all extremities. Sensory grossly intact. Cerebellar exam normal. Normal gait. 09:42 Constitutional: The patient appears anxious, lethargic, uncomfortable. 09:42 ENT: Mouth: Tongue: dry. 09:42 Cardiovascular: Rate: tachycardic, Heart sounds: normal. 09:42 Abdomen/GI: Inspection: distension, that is mild, Bowel sounds: hyperactive, in all quadrants, Palpation: moderate abdominal tenderness, severe abdominal tenderness, in the right upper quadrant and left upper quadrant, Rectal exam: Stool: guaiac negative. 09:42 Skin: Appearance: Color: dusky, Moisture: normal moisture. Vital Signs: 09:21 BP 188 / 110; Pulse 107; Resp 16; Temp 97.1; Pulse Ox 99% ; Weight 99.79 kg; Height 6 iw ft. 0 in. (182.88 cm); Pain 9/10; 10:30 BP 187 / 49; Pulse 101; Resp 20; Pulse Ox 99% ; db 10:41 Pain 10/10; db 11:00 BP 213 / 102; Pulse 105; Resp 20; Pulse Ox 99% ; Pain 8/10; db 11:30 BP 191 / 103; Pulse 102; Resp 18; Pulse Ox 100% ; iw 11:45 BP 202 / 110; Pulse 86; Resp 16; Pulse Ox 99% ; Pain 7/10; db 13:53 BP 194 / 110; Pulse 108; Resp 18; Pulse Ox 100% ; Pain 7/10; db 09:21 Body Mass Index 29.84 (99.79 kg, 182.88 cm) iw MDM: 09:24 Patient medically screened. clarice 11:16 Data reviewed: vital signs, nurses notes. Data interpreted: Pulse oximetry: on room air snw is 99 %. Interpretation: normal. Counseling: I had a detailed discussion with the patient and/or guardian regarding: the historical points, exam findings, and any diagnostic results supporting the discharge/admit diagnosis, the presence of at least one elevated blood pressure reading (>120/80) during this emergency department visit, lab results, the need for further work-up and treatment in the hospital. Physician consultation: Tao Woods was called at 11:17, regarding admission, to the telemetry unit. 11:25 Physician consultation: would like further tests performed, ammonia. snw 07/28 09:35 Order name: Ferritin snw 07/28 09:35 Order name: Lipase snw 07/28 09:35 Order name: Basic Metabolic Panel snw 07/28 09:35 Order name: CBC with Diff snw 07/28 09:35 Order name: D-Dimer snw 07/28 09:35 Order name: LFT's snw 07/28 09:35 Order name: Magnesium snw 07/28 09:35 Order name: NT PRO-BNP snw 07/28 09:35 Order name: PT-INR snw 07/28 09:35 Order name: Troponin HS snw 07/28 09:35 Order name: Phosphorus snw 07/28 09:35 Order name: TSH snw 07/28 09:35 Order name: Misc. Lab Test snw 07/28 10:33 Order name: CBC with Automated Diff; Complete Time: 11:29 EDMS 07/28 10:35 Order name: Protime (+INR); Complete Time: 10:36 EDMS 07/28 10:35 Order name: D-Dimer; Complete Time: 10:36 EDMS 07/28 10:58 Order name: Basic Metabolic Panel; Complete Time: 11:12 EDMS 07/28 10:58 Order name: Liver (Hepatic) Function; Complete Time: 11:12 EDMS 07/28 10:58 Order name: Phosphorus; Complete Time: 11:12 EDMS 07/28 10:58 Order name: Troponin High Sensitivity; Complete Time: 11:12 EDMS 07/28 10:58 Order name: NT PRO-BNP; Complete Time: 11:12 EDMS 07/28 10:58 Order name: Magnesium; Complete Time: 11:12 EDMS 07/28 10:58 Order name: Lipase; Complete Time: 11:12 EDMS 07/28 10:58 Order name: Thyroid Stimulating Hormone; Complete Time: 11:12 EDMS 07/28 10:58 Order name: Ferritin; Complete Time: 11:12 EDMS 07/28 11:24 Order name: AMMONIA snw 07/28 11:28 Order name: CBC Smear Scan; Complete Time: 11:29 EDMS 07/28 12:10 Order name: Ammonia; Complete Time: 12:10 EDMS 07/28 12:17 Order name: SARS RAPID snw 07/28 14:04 Order name: SARS-COV-2 Antigen Rapid; Complete Time: 14:04 EDMS 07/28 09:35 Order name: EKG; Complete Time: 09:36 snw 07/28 09:35 Order name: Cardiac monitoring; Complete Time: 18:35 snw 07/28 09:35 Order name: EKG - Nurse/Tech; Complete Time: 18:35 snw 07/28 09:35 Order name: IV Saline Lock; Complete Time: 18:35 snw 07/28 09:35 Order name: Labs collected and sent; Complete Time: 18:35 snw 07/28 09:35 Order name: O2 Per Protocol; Complete Time: 18:35 snw 07/28 09:35 Order name: O2 Sat Monitoring; Complete Time: 18:35 snw Administered Medications: 10:05 Drug: Banana Bag - (NS 0.9% 1000 ml, foLIC Acid 1 mg, Thiamine 100 mg, Multivitamin 1 db amp) Route: IV; Rate: calculated rate; Site: right antecubital; 12:05 Follow up: Response: No adverse reaction; IV Status: Completed infusion; IV Intake: db 1000ml 10:05 Drug: ProTONIX (pantoprazole) 40 mg Route: IVP; Site: right antecubital; db 10:41 Follow up: Response: No adverse reaction db 10:05 Drug: Valium (diazepam) 5 mg Route: IVP; Site: right antecubital; db 10:40 Follow up: Response: No adverse reaction db 10:58 Drug: Valium (diazepam) 10 mg Route: IM; Site: Ventrogluteal RIGHT; db 11:30 Follow up: Response: No adverse reaction db 11:35 Drug: Metoprolol 5 mg Route: IVP; Site: right antecubital; iw 11:55 Drug: Metoprolol 5 mg Route: IVP; Site: right antecubital; db 12:30 Follow up: Response: No adverse reaction db 12:45 Follow up: Response: No adverse reaction db Disposition Summary: 07/28/22 11:25 Hospitalization Ordered Hospitalization Status: Inpatient Admission snw Provider: Tao Woods [place] Location: Telemetry/MedSurg (Inpatient) snw Condition: Fair snw Problem: an acute exacerbation snw Symptoms: have worsened snw Bed/Room Type: Standard snw Room Assignment: 411(07/28/22 13:37) dw Diagnosis - Alcoholic cirrhosis of liver snw - Abdominal pain, Generalized snw - Dehydration snw Forms: - Medication Reconciliation Form snw - SBAR form snw Addendum: 08/01/2022 22:35 Co-signature as Attending Physician, Sebastian Browne MD I agree with the assessment and c martins plan of care. Signatures: Dispatcher [employer] Em Regalado, RN Sebastian Ochoa MD MD cha Waters, Shelly, EMERGENCY MEDICINE PHYSICIAN-C EMERGENCY MEDICINE PHYSICIAN-Csnw Thu Ibarra RN RN iw Benton, Danielle, RN RN db Corrections: (The following items were deleted from the chart) 07/28 13:37 11:25 snw dw
[2022-07-28 11:27] LABS: Blood Morphology Comment NOT SEEN (NOT SEEN); Platelet Estimate ADEQ; White Blood Cell Scan OK (OK)
[2022-07-28] MEDS ORDERED: METOPROLOL TARTRATE 5 MG/5 ML INJ IV ONE ×2 (11:27→11:56)
--- NOTE | 2022-07-28 13:24 | P.HP ---
Certification for Inpatient Patient admitted to: Inpatient With expected LOS: >2 Midnights Practitioner: I am a practitioner with admitting privileges, knowledge of patient current condition, hospital course, and medical plan of care. Services: Services provided to patient in accordance with Admission requirements found in Title 42 Section 412.3 of the Code of Federal Regulations Patient History Date of Service: 07/28/22 Reason for admission: Abdominal pain, nausea and vomiting History of Present Illness: 57-year-old gentleman with a history of alcoholic liver cirrhosis, recently diagnosed with gastric varices, gastric erosions and gastric varices presented to the emergency department with a complaint of intractable abdominal pain, and nausea and vomiting. Patient stated she is not been able to keep any fluid or food in. She visited multiple emergency departments, including [facility]. He was managing his symptoms with Pepcid and Reglan which he said he has not been able to keep them down. Most recent CT abdomen and pelvis done demonstrated nodular contour of the liver consistent with liver cirrhosis and splenomegaly. Patient in distress due to pain and vomiting in the ED. Blood work shows hyponatremia and elevated total protein which may indicate dehydration. Patient is hospitalized for further management. Allergies No Known Allergies Allergy (Unverified 06/26/22 14:30) Home Medications: B12/Levomefolate Calcium/B-6 [Foltx Tablet] 1 tab PO DAILY 07/28/22 Doxepin HCl [Sinequan] 10 mg PO BEDTIME 07/28/22 Ferrous Sulfate [Feosol] 325 mg PO DAILY 07/28/22 Gabapentin [Neurontin] 100 mg PO TID 07/28/22 Lactulose 30 ml PO TID 07/28/22 Lipase/Protease/Amylase [Sonja Ulrich 6,000 Unit Capsule] 6,000 units PO TID 07/28/22 Meclizine HCl 25 mg PO PRN PRN 07/28/22 Metoclopramide HCl [Reglan] 10 mg PO PRN PRN 07/28/22 Omeprazole 20 mg PO BID 07/28/22 Rosuvastatin [Crestor*] 20 mg PO DAILY 07/28/22 Thiamine Mononitrate (Vit B1) [Vitamin B-1] 100 mg PO DAILY 07/28/22 carvediloL [Carvedilol] 6.25 mg PO BID 07/28/22 hydrOXYzine HCL [Atarax*] 25 mg PO PRN PRN 07/28/22 - Past Medical/Surgical History -: Liver cirrhosis -: Gastroparesis -: Gastric varices -: Diabetes mellitus -: Obesity -: EGD - Family History Family History: Reviewed- Non-Contributory - Social History Alcohol use: No CD- Drugs: No Place of Residence: Home Review of Systems Other: He denied any fever or chest pain or shortness of breath. He denied any dysuria. He denied any diarrhea or constipation. Except as documented, all other systems reviewed and negative. Physical Examination - Physical Exam General: Alert, Oriented x3, Moderate distress HEENT: Atraumatic, PERRLA, EOMI, Sclerae nonicteric Neck: Supple, JVD not distended Respiratory: Clear to auscultation bilaterally, Normal air movement Cardiovascular: No edema, Normal S1 S2, Other (Tachycardia) Capillary refill: <2 Seconds Gastrointestinal: Normal bowel sounds, Non-distended, Tenderness (More pronounced in the left upper quadrant) Musculoskeletal: No swelling, No tenderness Integumentary: No rashes, No erythema, No cyanosis Neurological: Normal strength at 5/5 x4 extr, Cranial nerves 3-12 intact Lymphatics: No axilla or inguinal lymphadenopathy - Studies Laboratory Data (last 24 hrs) 07/28/22 10:00: PT 12.9 H, INR 1.17 07/28/22 10:00: WBC 4.20 L, Hgb 12.6 L, Hct 36.9 L, Plt Count 53 L 07/28/22 10:00: Sodium 132 L, Potassium 3.6, BUN 11, Creatinine 0.80, Glucose 145 H, Phosphorus 3.6, Magnesium 1.9, Total Bilirubin 1.3 H, AST 29, ALT 40, Alkaline Phosphatase 89, Lipase 103 Assessment and Plan - Problems (Diagnosis) (1) Intractable abdominal pain Current Visit: Yes Status: Acute (2) Intractable nausea and vomiting Current Visit: Yes Status: Acute (3) Gastroparesis Current Visit: Yes Status: Acute (4) Alcoholic cirrhosis of liver Current Visit: Yes Status: Acute (5) Insulin dependent type 2 diabetes mellitus Current Visit: Yes Status: Acute (6) Hyponatremia Current Visit: Yes Status: Acute (7) GERD (gastroesophageal reflux disease) Current Visit: Yes Status: Acute (8) Accelerated hypertension Current Visit: Yes Status: Acute - Plan Admit patient to the medical floor. Supportive measures with IV hydromorphone as needed for pain. IV Protonix and sucralfate for GERD. Aggressive IV hydration. IV Reglan for gastroparesis Monitor renal function. Repeat CT abdomen and pelvis Clear liquid diet as tolerated. GI consult. Blood pressure control. IV hydralazine as needed for BP spikes. - Advance Directives Does patient have a Living Will: No Does patient have a Durable POA for Healthcare: No
[2022-07-28 14:03] LABS: SARS-CoV-2 Antigen Rapid Res Negative (Negative)
[2022-07-28] MEDS ORDERED: SODIUM CHLORIDE 0.9% 10ML INJ IV PRN (14:42)
[2022-07-28] MEDS: HYDROMORPHONE HCL 1 MG/ML INJ IV PRN ×3 (15:01→23:21)
[2022-07-28] MEDS: D5 0.9 NS 1,000 ML IV SCH ×2 (15:01→21:15)
[2022-07-28] MEDS: PROMETHAZINE INJ 25 MG/ML AMP IV PRN ×2 (15:01→19:03)
[2022-07-28] MEDS ORDERED: HYDRALAZINE HCL 20 MG/ML VIAL IV PRN (15:52)
[2022-07-28] MEDS: INSULIN -REGULAR HUMAN 50 UNIT/0.5 ML ML SQ SCH ×2 (16:30→20:23)
[2022-07-28] MEDS: SUCRALFATE 1GM/10ML UCUP PO SCH ×2 (16:32→20:19)
--- NOTE | 2022-07-28 16:35 | RAD REPORT ---
EXAM DESCRIPTION: CTAbdomen Pelvis W Contrast - 07/28/2022 4:21 pm CLINICAL HISTORY: Abdominal pain. Intractable abdominal pain COMPARISON: Abdomen Pelvis W Contrast dated 07/13/2022; Abdomen Pelvis W Contrast dated 06/26/2022 TECHNIQUE: Biphasic CT imaging of the abdomen and pelvis was performed with 100 ml non-ionic IV cont rast. All CT scans are performed using dose optimization technique as appropriate and may include automated exposure control or mA/KV adjustment according to patient size. FINDINGS: The lung bases are clear. Small amount of fluid is seen along the right hepatic edge. No liver mass or biliary dilatation. The spleen is enlarged with numerous small low-density splenic lesion seen. Cholelithiasis. Mild inflammation is seen in the region of the duodenal C-loop. Pancreatic parenchyma appears unremarkable. Both adrenal glands are normal. Both kidneys are normal without hydronephrosis or mass. No bowel obstruction, free air or abscess. Mild sigmoid diverticulosis coli without diverticulitis. T he appendix is normal. No evidence of significant lymphadenopathy. No suspicious bony findings. IMPRESSION: Mild inflammation is seen in the region the duodenal C-loop. This could indicate ulcer d isease. Follow-up upper endoscopy would be suggested for direct visualization. Although pancreatic parenchyma appears grossly normal, consideration may be given to correlation with amylase and lipase levels as well. Cholelithiasis. Splenomegaly is seen with several with nonspecific low-density splenic lesions present.
[2022-07-28 17:47] LABS: Specific Gravity 1.015 (1.005-1.030); Urine Bilirubin NEGATIVE (Negative); Urine Blood Negative (Negative); Urine Clarity Clear (Clear); Urine Color Light-Yellow (Yellow); Urine Glucose NEGATIVE (Negative); Urine Mucus Slight /HPF (None Seen); Urine Protein TRACE (Negative); Urine RBC <5 /HPF (None Seen); Urine Urobilinogen Normal (Normal)
[2022-07-28] MEDS: PANTOPRAZOLE 40 MG INJ IVP SCH (20:18)
[2022-07-28] MEDS ORDERED: HYDROMORPHONE HCL 1 MG/ML INJ IV ONE (20:48)
[2022-07-29] MEDS: HYDROMORPHONE HCL 1 MG/ML INJ IV PRN ×5 (03:34→20:32)
[2022-07-29 06:04] LABS: Absolute Lymphocytes (CBC) 0.9 K/uL (0.7-4.9); Hematocrit 28.7 % (39.6-49.0); Lymphocytes % 30.9 % (15.3-44.8); MCV 87.2 fL (80-100); MPV 9.6 fL (7.6-11.3); RBC Red Blood Cell Count 3.29 M/uL (4.33-5.43)
[2022-07-29] MEDS: D5 0.9 NS 1,000 ML IV SCH ×2 (07:12→16:03)
[2022-07-29 07:27] LABS: Albumin 2.9 g/dL (3.4-5.0); Bilirubin Total 0.7 mg/dL (0.2-1.0); Magnesium 1.7 mg/dL (1.8-2.4); Phosphorus 3.1 mg/dL (2.5-4.9); Potassium 3.4 mmol/L (3.5-5.1); Protein, Total 6.4 g/dL (6.4-8.2)
[2022-07-29] MEDS: INSULIN -REGULAR HUMAN 50 UNIT/0.5 ML ML SQ SCH ×4 (07:30→21:00)
[2022-07-29] MEDS: SUCRALFATE 1GM/10ML UCUP PO SCH ×4 (07:47→20:32)
[2022-07-29] MEDS: PANTOPRAZOLE 40 MG INJ IVP SCH ×2 (08:54→20:33)
[2022-07-29] MEDS: PROMETHAZINE INJ 25 MG/ML AMP IV PRN ×2 (11:48→16:04)
[2022-07-29] MEDS ORDERED: POTASSIUM 25 MEQ EFFERV TAB PO ONE (13:00)
[2022-07-29] MEDS ORDERED: MAGNESIUM SULFATE 1 gm IVPB 1 GM/100 ML BAG IV ONE (13:00)
[2022-07-29 14:04] VITALS: BMI 30.5
--- NOTE | 2022-07-29 15:30 | P.PN ---
Subjective Date of Service: 07/29/22 Chief Complaint: Abdominal pain, nausea and vomiting Patient reports feeling much better today. He states his pain is much better. He has tolerated clear liquid diet. He denies nausea. Physical Examination - Vital Signs Temperature: 97.6 F Blood Pressure: 117/67 Pulse: 77 Respirations: 16 Pulse Ox (%): 98 Assessment And Plan - Current Problems (Diagnosis) (1) Intractable abdominal pain Current Visit: Yes Status: Acute (2) Intractable nausea and vomiting Current Visit: Yes Status: Acute (3) Gastroparesis Current Visit: Yes Status: Acute (4) Alcoholic cirrhosis of liver Current Visit: Yes Status: Acute (5) Insulin dependent type 2 diabetes mellitus Current Visit: Yes Status: Acute (6) Hyponatremia Current Visit: Yes Status: Acute (7) GERD (gastroesophageal reflux disease) Current Visit: Yes Status: Acute (8) Accelerated hypertension Current Visit: Yes Status: Acute - Plan Physical Exam General: Alert, NAD Respiratory: Clear to auscultation bilaterally, Normal air movement Cardiovascular: No edema, Normal S1 S2, regular rhythm. Gastrointestinal: Normal bowel sounds, Non-distended, mild epigastric tenderness. Integumentary: No rashes. Neurological: No focal motor deficit. Plan: Continue supportive measures with IV hydromorphone as needed for pain. CT abdomen and pelvis suggest possible duodenal ulcer IV Protonix and sucralfate for GERD. Aggressive IV hydration. IV Reglan for gastroparesis. GI consult Monitor renal function. Clear liquid diet as tolerated. Blood pressure control. IV hydralazine as needed for BP spikes.
[2022-07-30] MEDS: D5 0.9 NS 1,000 ML IV SCH ×3 (00:12→17:21)
[2022-07-30] MEDS: HYDROMORPHONE HCL 1 MG/ML INJ IV PRN ×6 (00:12→20:08)
[2022-07-30] MEDS ORDERED: POTASSIUM CL SA 10 MEQ TAB PO ONE (07:21)
[2022-07-30] MEDS: INSULIN -REGULAR HUMAN 50 UNIT/0.5 ML ML SQ SCH ×4 (07:30→21:20)
[2022-07-30] MEDS: SUCRALFATE 1GM/10ML UCUP PO SCH ×4 (07:45→20:09)
[2022-07-30] MEDS: PANTOPRAZOLE 40 MG INJ IVP SCH ×2 (07:45→20:08)
[2022-07-30] MEDS ORDERED: NA CHLORIDE 0.9% 1,000 ML ONE (13:24)
[2022-07-30] MEDS ORDERED: propofoL 200 MG/20 ML VIAL IV ONE ×2 (13:52)
--- NOTE | 2022-07-30 16:43 | P.PN ---
Subjective Date of Service: 07/30/22 Chief Complaint: Abdominal pain, nausea and vomiting Patient has been needing IV pain medications intermittently to do overall better compared to his symptoms during presentation. He has tolerated clear liquid diet. Physical Examination - Vital Signs Temperature: 98.5 F Blood Pressure: 142/71 Pulse: 75 Respirations: 18 Pulse Ox (%): 96 Assessment And Plan - Current Problems (Diagnosis) (1) Intractable abdominal pain Current Visit: Yes Status: Acute (2) Intractable nausea and vomiting Current Visit: Yes Status: Acute (3) Gastroparesis Current Visit: Yes Status: Acute (4) Alcoholic cirrhosis of liver Current Visit: Yes Status: Acute (5) Insulin dependent type 2 diabetes mellitus Current Visit: Yes Status: Acute (6) Hyponatremia Current Visit: Yes Status: Acute (7) GERD (gastroesophageal reflux disease) Current Visit: Yes Status: Acute (8) Accelerated hypertension Current Visit: Yes Status: Acute - Plan Physical Exam General: Alert, NAD Respiratory: Clear to auscultation bilaterally, Normal air movement Cardiovascular: No edema, Normal S1 S2, regular rhythm. Gastrointestinal: Normal bowel sounds, Non-distended, epigastric tenderness. Neurological: No focal motor deficit. Plan: Continue supportive measures with IV hydromorphone as needed for pain. Antiemetics. CT abdomen and pelvis suggest possible duodenal ulcer IV Protonix and sucralfate for GERD. Aggressive IV hydration. IV Reglan for gastroparesis. GI consulted patient seen by Dr. Palomo. HIDA scan ordered to rule out acute cholecystitis Monitor renal function. Blood pressure control. IV hydralazine as needed for BP spikes. Hold lactulose.
[2022-07-30] MEDS: carvediloL 6.25 MG TAB PO SCH ×2 (17:35→17:38)
[2022-07-30] MEDS ORDERED: carvediloL 12.5 MG TAB PO SCH (18:00)
[2022-07-30] MEDS: GABAPENTIN 100 MG CAP PO SCH (20:08)
[2022-07-30] MEDS: ENSURE CLEAR 200 ML CAN PO SCH (20:09)
[2022-07-30] MEDS: PROTEASE PO SCH (21:00)
[2022-07-30] MEDS: LIPASE PO SCH (21:00)
[2022-07-30] MEDS: AMYLASE PO SCH (21:00)
[2022-07-30] MEDS: DOXEPIN HCL 10 MG CAP PO SCH (21:20)
[2022-07-31] MEDS: HYDROMORPHONE HCL 1 MG/ML INJ IV PRN ×4 (00:07→23:18)
[2022-07-31] MEDS: D5 0.9 NS 1,000 ML IV SCH ×5 (00:12→23:19)
[2022-07-31 05:49] LABS: Absolute Lymphocytes (CBC) 0.6 K/uL (0.7-4.9); Hematocrit 30.1 % (39.6-49.0); Lymphocytes % 30.4 % (15.3-44.8); MCV 88.7 fL (80-100); MPV 9.2 fL (7.6-11.3)
[2022-07-31 06:02] LABS: ALT/SGPT 44 U/L (12-78); AST/SGOT 34 U/L (15-37); Albumin 3.2 g/dL (3.4-5.0); Alkaline Phosphatase 71 U/L (45-117); Bicarbonate 27 mmol/L (21-32); Bilirubin Total 0.7 mg/dL (0.2-1.0); Glomerular Filtration Rate 105 ml/min (=/>90); Glucose Level 195 mg/dL (74-106); Magnesium 1.7 mg/dL (1.8-2.4); Potassium 3.9 mmol/L (3.5-5.1); Protein, Total 6.8 g/dL (6.4-8.2); Sodium Level 138 mmol/L (136-145)
[2022-07-31 06:08] LABS: BUN Blood Urea Nitrogen < 3 mg/dL (7-18)
[2022-07-31] MEDS ORDERED: MAGNESIUM SULFATE 1 gm IVPB 1 GM/100 ML BAG IV ONE (06:19)
[2022-07-31] MEDS: carvediloL 6.25 MG TAB PO SCH ×2 (06:35→17:15)
[2022-07-31] MEDS ORDERED: ACETAMINOPHEN 325 MG TABLET PO ONE (06:47)
--- NOTE | 2022-07-31 06:55 | P.PN ---
Date of Service: 07/31/22 Subjective: pain slightly improved no acute events overnight ROS: 10 point ROS as noted above, otherwise negative Physical Exam: Gen: NAD, AOx3 HEENT: normal conjunctiva, sclera anicteric CV: regular rate & rhythm, no edema Pulm: non-labored respirations, clear bilaterally Abd: soft, mild-moderate epigastric tenderness Skin: no rashes, no lesions Neuro: normal speech, normal affect, moves all extremities vitals reviewed Problem List intractable nausea/vomiting, abdominal pain gastroparesis alcoholic liver cirrhosis IDDM2 Hyponatremia GERD HTN slight improvement EGD with gastritis, esophageal varices, improved from a few weeks ago protonix and sucralfate ordered patient reports h/o gastroparesis, but no formal studies continue IV reglan GI consulted, Dr. Palomo recommended HIDA scan - negative 07/31 unclear etiology of pain, appears out of proportion to findings General surgery, Dr. Corbin consulted gastric emptying study ordered still requiring pain medication VTE: held for possible procedure Code: full Dispo: home, ~2 days Time Spent Managing Pts Care (In Minutes): 35
[2022-07-31 07:19] LABS: Platelet Estimate DECR; White Blood Cell Scan OK (OK)
[2022-07-31 07:20] LABS: Blood Morphology Comment NOT SEEN (NOT SEEN); Platelets, Giant NOTED
[2022-07-31] MEDS: INSULIN -REGULAR HUMAN 50 UNIT/0.5 ML ML SQ SCH ×4 (07:30→21:17)
[2022-07-31] MEDS: SUCRALFATE 1GM/10ML UCUP PO SCH ×4 (08:56→19:40)
[2022-07-31] MEDS: ENSURE CLEAR 200 ML CAN PO SCH ×2 (08:56→19:46)
[2022-07-31] MEDS: AMYLASE PO SCH ×3 (08:57→19:23)
[2022-07-31] MEDS: PANTOPRAZOLE 40 MG INJ IVP SCH ×2 (08:57→19:39)
[2022-07-31] MEDS: GABAPENTIN 100 MG CAP PO SCH ×3 (08:57→19:40)
[2022-07-31] MEDS: PROTEASE PO SCH ×3 (08:57→19:23)
[2022-07-31] MEDS: LIPASE PO SCH ×3 (08:57→19:23)
[2022-07-31] MEDS: THIAMINE HCL 100 MG TABLET PO SCH (08:57)
[2022-07-31] MEDS ORDERED: THIAMINE MONONITRATE 100 MG PO SCH (09:00)
--- NOTE | 2022-07-31 15:24 | RAD REPORT ---
EXAM DESCRIPTION: NM - Hepatobiliary System W/ Ph - 07/31/2022 3:03 pm CLINICAL HISTORY: ABDOMINAL PAIN COMPARISON: <Comparisons> TECHNIQUE: The patient was administered 6.2 mCi Tc99m Mebrofenin. Imaging of the right upper quadran t was performed initially for up to 60 minutes. The patient was administered synthetic CCK over a sl ow 30 minute infusion. NAI measurements were obtained of the gallbladder and an ejection fraction vidal culated. Synthetic CCK dosage was 2.0 mgm. FINDINGS: There is homogeneous uptake of radiopharmaceutical throughout the liver. There is no delay in visualization of the biliary tree or duodenum. Gallbladder visualizes within normal time limits. The calculated ejection fraction is 73%, normal. The patient reported no pain prior to the procedure and no symptoms during or subsequent to synthetic CCK infusion. IMPRESSION: Patent cystic duct and patent sphincter of Oddi. No delay in visualization of the gallbl adder, biliary tree, or duodenum. Ejection fraction is 73%, normal. Patient reported no pre-procedure pain, and no pain during or subsequent to synthetic CCK infusion.
[2022-07-31] MEDS: DOXEPIN HCL 10 MG CAP PO SCH (19:40)
[2022-08-01] MEDS: MELATONIN 5 MG TABLET PO PRN (00:21)
[2022-08-01] MEDS: ONDANSETRON 4 MG/2 ML VIAL IV PRN ×2 (02:07→20:42)
[2022-08-01] MEDS: HYDROMORPHONE HCL 1 MG/ML INJ IV PRN ×5 (03:28→20:43)
[2022-08-01] MEDS: METOCLOPRAMIDE 10 MG/2mL INJ IV PRN (03:47)
[2022-08-01 04:45] LABS: Absolute Lymphocytes (CBC) 0.7 K/uL (0.7-4.9); Hematocrit 29.7 % (39.6-49.0); Lymphocytes % 29.3 % (15.3-44.8); MCV 88.5 fL (80-100); MPV 8.7 fL (7.6-11.3); RBC Red Blood Cell Count 3.36 M/uL (4.33-5.43)
[2022-08-01 05:25] LABS: ALT/SGPT 43 U/L (12-78); AST/SGOT 28 U/L (15-37); Albumin 2.9 g/dL (3.4-5.0); Alkaline Phosphatase 68 U/L (45-117); Bicarbonate 30 mmol/L (21-32); Bilirubin Total 0.7 mg/dL (0.2-1.0); Glomerular Filtration Rate 105 ml/min (=/>90); Glucose Level 172 mg/dL (74-106); Magnesium 1.8 mg/dL (1.8-2.4); Phosphorus 7.6 mg/dL (2.5-4.9); Potassium 3.7 mmol/L (3.5-5.1); Protein, Total 6.3 g/dL (6.4-8.2); Sodium Level 138 mmol/L (136-145)
[2022-08-01 05:26] LABS: BUN Blood Urea Nitrogen < 3 mg/dL (7-18); C-Reactive Protein < 2.90 mg/L (<3.00)
[2022-08-01] MEDS ORDERED: POTASSIUM CL SA 10 MEQ TAB PO ONE (05:42)
[2022-08-01] MEDS ORDERED: MAGNESIUM SULFATE 1 gm IVPB 1 GM/100 ML BAG IV ONE (05:43)
[2022-08-01] MEDS: carvediloL 6.25 MG TAB PO SCH ×2 (06:01→16:26)
[2022-08-01] MEDS: INSULIN -REGULAR HUMAN 50 UNIT/0.5 ML ML SQ SCH ×4 (07:30→20:49)
[2022-08-01] MEDS: GABAPENTIN 100 MG CAP PO SCH ×3 (08:05→20:47)
[2022-08-01] MEDS: THIAMINE HCL 100 MG TABLET PO SCH (08:05)
[2022-08-01] MEDS: SUCRALFATE 1GM/10ML UCUP PO SCH ×4 (08:05→20:43)
[2022-08-01] MEDS: PANTOPRAZOLE 40 MG INJ IVP SCH ×2 (08:06→20:43)
[2022-08-01] MEDS: ENSURE CLEAR 200 ML CAN PO SCH ×2 (08:07→20:48)
[2022-08-01] MEDS: AMYLASE PO SCH ×3 (08:07→20:48)
[2022-08-01] MEDS: PROTEASE PO SCH ×3 (08:07→20:48)
[2022-08-01] MEDS: LIPASE PO SCH ×3 (08:07→20:48)
[2022-08-01] MEDS: D5 0.9 NS 1,000 ML IV SCH ×2 (11:16→14:01)
--- NOTE | 2022-08-01 13:10 | P.PN ---
Subjective Date of Service: 08/01/22 Chief Complaint: AMBAR/RUQ pain, nausea Subjective: Improving (No pain now, though he had some AMBAR/RUQ pain last night and in LUQ area as well. Negative HIDA scan. Awaiting gastric emptying study to be done tomorrow.) Review of Systems 10-point ROS is otherwise unremarkable (Improved.) Physical Examination - Vital Signs Temperature: 97.7 F Blood Pressure: 101/65 Pulse: 68 Respirations: 14 Pulse Ox (%): 95 - Physical Exam General: Alert, In no apparent distress, Oriented x3, Cooperative HEENT: Atraumatic, Normocephalic, PERRLA, EOMI Neck: Supple Respiratory: Normal air movement Cardiovascular: Normal pulses, Regular rate/rhythm Gastrointestinal: Soft and benign, No tenderness, No rebound, No guarding Neurological: Normal speech, Normal strength at 5/5 x4 extr Assessment And Plan - Current Problems (Diagnosis) (1) RUQ abdominal pain Current Visit: Yes Status: Acute (2) Epigastric abdominal pain Current Visit: Yes Status: Acute (3) Nausea Current Visit: Yes Status: Acute - Plan REC: 1) await gastric emptying study
[2022-08-01] MEDS: DOXEPIN HCL 10 MG CAP PO SCH (20:47)
--- NOTE | 2022-08-01 22:11 | P.PN ---
Date of Service: 08/01/22 Subjective: pain slightly improved ROS: 10 point ROS as noted above, otherwise negative Physical Exam: Gen: NAD, AOx3 HEENT: normal conjunctiva, sclera anicteric CV: regular rate & rhythm, no edema Pulm: non-labored respirations, clear bilaterally Abd: soft, mild-moderate epigastric tenderness Skin: no rashes, no lesions Neuro: normal speech, normal affect, moves all extremities vitals reviewed Problem List intractable nausea/vomiting, abdominal pain gastroparesis alcoholic liver cirrhosis IDDM2 Hyponatremia GERD HTN slight improvement EGD with gastritis, esophageal varices, improved from a few weeks ago protonix and sucralfate ordered patient reports h/o gastroparesis, but no formal studies continue IV reglan gastric emptying study ordered, delayed until 08/02 due to tracer from HIDA still in system GI consulted, Dr. Palomo recommended HIDA scan - negative 07/31 unclear etiology of pain, appears out of proportion to findings General surgery, Dr. Corbin consulted gastric emptying study ordered still requiring pain medication VTE: held for possible procedure Code: full Dispo: home, ~2 days Time Spent Managing Pts Care (In Minutes): 35
[2022-08-02] MEDS: PROMETHAZINE INJ 25 MG/ML AMP IV PRN ×2 (00:47→21:29)
[2022-08-02] MEDS: HYDROMORPHONE HCL 1 MG/ML INJ IV PRN ×5 (00:47→20:10)
[2022-08-02] MEDS: D5 0.9 NS 1,000 ML IV SCH ×2 (00:47→16:24)
[2022-08-02 04:16] LABS: Bicarbonate 30 mmol/L (21-32); Glomerular Filtration Rate 108 ml/min (=/>90); Glucose Level 181 mg/dL (74-106); Magnesium 1.7 mg/dL (1.8-2.4); Potassium 3.7 mmol/L (3.5-5.1); Sodium Level 140 mmol/L (136-145)
[2022-08-02 04:25] LABS: BUN Blood Urea Nitrogen < 3 mg/dL (7-18); C-Reactive Protein < 2.90 mg/L (<3.00)
[2022-08-02] MEDS: carvediloL 6.25 MG TAB PO SCH ×2 (05:55→16:05)
[2022-08-02] MEDS: ONDANSETRON 4 MG/2 ML VIAL IV PRN ×3 (06:04→16:23)
[2022-08-02] MEDS ORDERED: POTASSIUM 25 MEQ EFFERV TAB PO ONE (06:26)
[2022-08-02] MEDS ORDERED: MAGNESIUM SULFATE 1 gm IVPB 1 GM/100 ML BAG IV ONE (06:26)
--- NOTE | 2022-08-02 06:59 | P.PN ---
Date of Service: 08/02/22 Subjective: Overall seems to be improving slowly each day Pain episodes becoming slightly less frequent, less in severity Gastric emptying study done today, patient had pain in his throat, felt that eggs were getting stuck ROS: 10 point ROS as noted above, otherwise negative Physical Exam: Gen: NAD, AOx3 HEENT: normal conjunctiva, sclera anicteric, no oral lesions CV: regular rate & rhythm, no edema Pulm: non-labored respirations, clear bilaterally Abd: soft, mild-moderate epigastric tenderness Skin: no rashes, no lesions Neuro: normal speech, normal affect, moves all extremities vitals reviewed Problem List intractable nausea/vomiting, abdominal pain gastroparesis alcoholic liver cirrhosis IDDM2 Hyponatremia GERD HTN slight improvement each day EGD with gastritis, esophageal varices, improved from a few weeks ago protonix and sucralfate ordered patient reports h/o gastroparesis, but no formal studies reglan was ordered PRN, only took one dose GES- mild gastroparesis on 08/02 start scheduled reglan 10mg ACHS patient started on creon ~2 months ago, has not been receiving while hospitalized discussed, and will bring from home, he was unaware he needed to bring it GI consulted, Dr. Palomo HIDKamila scan - negative 07/31 unclear etiology of pain, appears out of proportion to findings General surgery, Dr. Corbin consulted, recommended gastric emptying study still requiring pain medication Code: full Dispo: home, ~2-3 days Time Spent Managing Pts Care (In Minutes): 35
[2022-08-02 07:50] LABS: Absolute Lymphocytes (CBC) 0.7 K/uL (0.7-4.9); Hematocrit 27.9 % (39.6-49.0); Lymphocytes % 33.6 % (15.3-44.8); MCV 88.8 fL (80-100); MPV 9.4 fL (7.6-11.3); RBC Red Blood Cell Count 3.15 M/uL (4.33-5.43)
[2022-08-02] MEDS: LIPASE PO SCH ×3 (09:00→20:12)
[2022-08-02] MEDS: ENSURE CLEAR 200 ML CAN PO SCH ×2 (09:00→20:12)
[2022-08-02] MEDS: AMYLASE PO SCH ×3 (09:00→20:12)
[2022-08-02] MEDS: PROTEASE PO SCH ×3 (09:00→20:12)
[2022-08-02] MEDS: PANTOPRAZOLE 40 MG INJ IVP SCH ×2 (09:03→20:11)
[2022-08-02] MEDS: SUCRALFATE 1GM/10ML UCUP PO SCH ×4 (09:04→20:11)
[2022-08-02] MEDS: INSULIN -REGULAR HUMAN 50 UNIT/0.5 ML ML SQ SCH ×4 (09:04→20:13)
[2022-08-02] MEDS: GABAPENTIN 100 MG CAP PO SCH ×3 (09:04→20:11)
[2022-08-02] MEDS: THIAMINE HCL 100 MG TABLET PO SCH (09:05)
--- NOTE | 2022-08-02 15:53 | RAD REPORT ---
EXAM DESCRIPTION: NM - Gastric Emptying Study - 08/02/2022 3:47 pm CLINICAL HISTORY: Abdominal pain COMPARISON: None. TECHNIQUE: The patient was administered approximately 1 mCi Tc 99m sulfur colloid in solid egg meal. Imaging of the left upper quadrant was performed with time/activity curve generated. FINDINGS: Cine-loop images show normal progression of the radiopharmaceutical from the stomach into the small bowel. Time to one-half activity is 110 minutes, mild delay. . No other significant finding s. IMPRESSION: Mild delay in gastric emptying is seen, compatible with mild gastroparesis.
[2022-08-02] MEDS ORDERED: LIPASE/PROTEASE/AMYLASE CAP PO SCH (17:00)
[2022-08-02] MEDS: METOCLOPRAMIDE 5 MG TAB PO SCH ×2 (17:20→20:13)
--- NOTE | 2022-08-02 17:53 | P.PN ---
Subjective Date of Service: 08/02/22 Chief Complaint: AMBAR/RUQ pain, nausea Physical Examination - Vital Signs Temperature: 97.9 F Blood Pressure: 153/81 Pulse: 72 Respirations: 18 Pulse Ox (%): 98 Assessment And Plan - Current Problems (Diagnosis) (1) RUQ abdominal pain Current Visit: Yes Status: Acute (2) Epigastric abdominal pain Current Visit: Yes Status: Acute (3) Nausea Current Visit: Yes Status: Acute - Plan REC: 1) await gastric emptying study
[2022-08-02] MEDS: DOXEPIN HCL 10 MG CAP PO SCH (20:11)
[2022-08-03] MEDS: HYDROMORPHONE HCL 0.5 MG/0.5 ML INJ IV PRN ×3 (00:33→13:21)
[2022-08-03] MEDS: ONDANSETRON 4 MG/2 ML VIAL IV PRN ×2 (01:04→20:03)
[2022-08-03 04:13] LABS: Hematocrit 28.8 % (39.6-49.0); MPV 8.7 fL (7.6-11.3); RBC Red Blood Cell Count 3.28 M/uL (4.33-5.43)
[2022-08-03 04:33] LABS: ALT/SGPT 43 U/L (12-78); AST/SGOT 28 U/L (15-37); Albumin 2.8 g/dL (3.4-5.0); Alkaline Phosphatase 73 U/L (45-117); Bicarbonate 30 mmol/L (21-32); Bilirubin Direct 0.2 mg/dL (0-0.2); Bilirubin Total 0.6 mg/dL (0.2-1.0); Glomerular Filtration Rate 104 ml/min (=/>90); Glucose Level 189 mg/dL (74-106); Lipase 42 U/L (73-393); Magnesium 1.6 mg/dL (1.8-2.4); Potassium 3.7 mmol/L (3.5-5.1); Protein, Total 6.2 g/dL (6.4-8.2); Sodium Level 140 mmol/L (136-145)
[2022-08-03 04:41] LABS: BUN Blood Urea Nitrogen < 3 mg/dL (7-18); C-Reactive Protein < 2.90 mg/L (<3.00)
[2022-08-03] MEDS: METOCLOPRAMIDE 10 MG/2mL INJ IV PRN (05:17)
[2022-08-03] MEDS ORDERED: MAGNESIUM SULFATE 1 gm IVPB 1 GM/100 ML BAG IV ONE (06:16)
[2022-08-03] MEDS: carvediloL 6.25 MG TAB PO SCH ×2 (06:27→17:28)
[2022-08-03] MEDS: INSULIN -REGULAR HUMAN 50 UNIT/0.5 ML ML SQ SCH ×4 (07:30→20:47)
[2022-08-03] MEDS: METOCLOPRAMIDE 5 MG TAB PO SCH ×4 (07:30→20:05)
[2022-08-03] MEDS: SUCRALFATE 1GM/10ML UCUP PO SCH ×4 (07:30→20:04)
[2022-08-03] MEDS: PROTEASE PO SCH (09:00)
[2022-08-03] MEDS: THIAMINE HCL 100 MG TABLET PO SCH (09:00)
[2022-08-03] MEDS: ENSURE CLEAR 200 ML CAN PO SCH ×2 (09:00→20:06)
[2022-08-03] MEDS: PANTOPRAZOLE 40 MG INJ IVP SCH ×2 (09:00→20:05)
[2022-08-03] MEDS: GABAPENTIN 100 MG CAP PO SCH ×3 (09:00→20:04)
[2022-08-03] MEDS: LIPASE PO SCH (09:00)
[2022-08-03] MEDS: AMYLASE PO SCH (09:00)
--- NOTE | 2022-08-03 10:51 | RAD REPORT ---
EXAM DESCRIPTION: RAD - Esophagram Only - 08/03/2022 10:09 am CLINICAL HISTORY: felt eggs stuck in esophagus COMPARISON: Gastric Emptying Study dated 08/02/2022; Abdomen Pelvis W Contrast dated 07/28/2022 FINDINGS: An esophagram was performed and shows normal bolus formation and normal initiation of swal lowing. Nonspecific tertiary contractions. Serpiginous filling defects in the mid and distal esophagu s. Normal passage of contrast across the GE junction was noted. . Total fluoroscopy time: 37 seconds Number of images acquired: 36 mGy IMPRESSION: Nonspecific tertiary contractions. Serpiginous filling defects in the mid and distal esophagus may reflect esophageal varices.
[2022-08-03] MEDS: PROMETHAZINE INJ 25 MG/ML AMP IV PRN (13:23)
[2022-08-03] MEDS ORDERED: POTASSIUM CL SA 10 MEQ TAB PO ONE (15:00)
[2022-08-03] MEDS: HYDROCODONE/APAP 5/325 MG TAB PO PRN (17:28)
--- NOTE | 2022-08-03 19:31 | P.PN ---
Subjective Date of Service: 08/03/22 Chief Complaint: AMBAR/RUQ pain, nausea Subjective: Improving (No abdominal pain now. Gastric emptying study positive for gastroparesis.) Review of Systems Unremarkable Physical Examination - Vital Signs Temperature: 97.5 F Blood Pressure: 120/61 Pulse: 68 Respirations: 16 Pulse Ox (%): 94 - Physical Exam General: Alert, In no apparent distress, Oriented x3, Cooperative HEENT: Atraumatic, Normocephalic, PERRLA, EOMI Neck: Supple Respiratory: Normal air movement Cardiovascular: Normal pulses Gastrointestinal: Soft and benign, No tenderness, No rebound, No guarding Neurological: Normal speech, Normal strength at 5/5 x4 extr Assessment And Plan - Current Problems (Diagnosis) (1) RUQ abdominal pain Current Visit: Yes Status: Acute Comment: None now on Reglan. (2) Epigastric abdominal pain Current Visit: Yes Status: Acute (3) Nausea Current Visit: Yes Status: Acute - Plan REC: 1) start Erythromycin 40-50 mg po qac/qhs 2) GI clinic f/u
[2022-08-03] MEDS: DOXEPIN HCL 10 MG CAP PO SCH (20:05)
[2022-08-03] MEDS: MELATONIN 5 MG TABLET PO PRN (20:09)
--- NOTE | 2022-08-03 21:29 | P.PN ---
Date of Service: 08/03/22 Subjective: improving Esophagram today ROS: 10 point ROS as noted above, otherwise negative Physical Exam: Gen: NAD, AOx3 HEENT: normal conjunctiva, sclera anicteric, no oral lesions CV: regular rate & rhythm, no edema Pulm: non-labored respirations, clear bilaterally Abd: soft, mild epigastric tenderness Skin: no rashes, no lesions Neuro: normal speech, normal affect, moves all extremities vitals reviewed Problem List intractable nausea/vomiting, abdominal pain gastroparesis alcoholic liver cirrhosis IDDM2 Hyponatremia GERD HTN improving, appears more comfortable pain less severe, less frequent, less duration EGD with gastritis, esophageal varices, improved from a few weeks ago protonix and sucralfate ordered patient reports h/o gastroparesis, but no formal studies reglan was ordered PRN, only took one dose GES- mild gastroparesis on 08/02 start scheduled reglan 10mg ACHS patient started on creon ~2 months ago, has not been receiving while hospitalized; improving, will hold off GI consulted - Dr. Palomo HIDKamila scan - negative 07/31 unclear etiology of pain, appears out of proportion to findings General surgery, Dr. Corbin consulted, recommended gastric emptying study; no surgery needed still requiring pain medication, on IV PRN transition off IV, monitor if patient can tolerate with PO meds / full liquids Code: full Dispo: home, ~1-2 days Time Spent Managing Pts Care (In Minutes): 35
[2022-08-04] MEDS: ONDANSETRON 4 MG/2 ML VIAL IV PRN ×3 (03:34→19:20)
[2022-08-04] MEDS: HYDROCODONE/APAP 5/325 MG TAB PO PRN ×4 (03:34→19:20)
[2022-08-04 04:53] LABS: Absolute Lymphocytes (CBC) 0.5 K/uL (0.7-4.9); Hematocrit 29.7 % (39.6-49.0); Lymphocytes % 28.9 % (15.3-44.8); MCV 87.6 fL (80-100); MPV 8.9 fL (7.6-11.3); RBC Red Blood Cell Count 3.39 M/uL (4.33-5.43)
[2022-08-04 05:06] LABS: ALT/SGPT 40 U/L (12-78); AST/SGOT 23 U/L (15-37); Albumin 2.9 g/dL (3.4-5.0); Alkaline Phosphatase 77 U/L (45-117); Bicarbonate 30 mmol/L (21-32); Bilirubin Direct 0.2 mg/dL (0-0.2); Bilirubin Total 0.6 mg/dL (0.2-1.0); Glomerular Filtration Rate 107 ml/min (=/>90); Glucose Level 166 mg/dL (74-106); Magnesium 1.6 mg/dL (1.8-2.4); Potassium 3.9 mmol/L (3.5-5.1); Protein, Total 6.5 g/dL (6.4-8.2); Sodium Level 138 mmol/L (136-145)
[2022-08-04 05:07] LABS: BUN Blood Urea Nitrogen < 3 mg/dL (7-18)
[2022-08-04] MEDS: carvediloL 6.25 MG TAB PO SCH ×2 (06:12→17:13)
[2022-08-04] MEDS ORDERED: MAGNESIUM SULFATE 1 gm IVPB 1 GM/100 ML BAG IV ONE (07:30)
[2022-08-04] MEDS: ENSURE CLEAR 200 ML CAN PO SCH ×2 (08:47→20:21)
[2022-08-04] MEDS: SUCRALFATE 1GM/10ML UCUP PO SCH ×4 (08:50→20:19)
[2022-08-04] MEDS: INSULIN -REGULAR HUMAN 50 UNIT/0.5 ML ML SQ SCH ×4 (08:54→20:21)
[2022-08-04] MEDS: GABAPENTIN 100 MG CAP PO SCH ×3 (08:55→20:19)
[2022-08-04] MEDS: THIAMINE HCL 100 MG TABLET PO SCH (08:55)
[2022-08-04] MEDS: METOCLOPRAMIDE 5 MG TAB PO SCH ×4 (08:56→20:19)
[2022-08-04] MEDS: PANTOPRAZOLE 40 MG INJ IVP SCH ×2 (08:57→20:20)
[2022-08-04] MEDS ORDERED: POTASSIUM CL SA 10 MEQ TAB PO ONE (09:00)
--- NOTE | 2022-08-04 15:34 | P.PN ---
Date of Service: 08/04/22 Subjective: improving on scheduled reglan, PO pain meds, off IV pain meds since yesterday tolerating liquids, requesting to advance diet no BM in 2 days ROS: 10 point ROS as noted above, otherwise negative Physical Exam: Gen: NAD, AOx3 HEENT: normal conjunctiva, sclera anicteric, no oral lesions CV: regular rate & rhythm, no edema Pulm: non-labored respirations, clear bilaterally Abd: soft, mild epigastric tenderness Skin: no rashes, no lesions Neuro: normal speech, normal affect, moves all extremities vitals reviewed Problem List intractable nausea/vomiting, abdominal pain gastroparesis alcoholic liver cirrhosis pancytopenia IDDM2 Hyponatremia GERD HTN improving, appears more comfortable pain less severe, less frequent, less duration EGD with gastritis, esophageal varices, improved from a few weeks ago protonix and sucralfate ordered GI consulted - Dr. Dewey LEONE scan - negative 07/31 patient reports h/o gastroparesis, but no formal studies GES- mild gastroparesis on 08/02 start scheduled reglan 10mg ACHS patient started on creon ~2 months ago, has not been receiving while hospitalized; improving, will hold off discussed reglan vs erythromycin. patient would prefer to stay on reglan si nce working now, possibly transition to erythromycin if reglan doesn't further help or due to side effects pain control, anti-emetics as needed Esophagram 08/03 - mild tertiary contractions, +varices advance diet Pancytopenia - plt stable, hgb stable, WBC Downtrending secondary to liver cirrhosis, splenomegaly; exacerbated by acute illness trend until plateaus if continues to decrease, may need granix Code: full Dispo: home, ~1-2 days pending - tolerating PO , oral meds WBC stable Time Spent Managing Pts Care (In Minutes): 35
--- NOTE | 2022-08-04 18:26 | P.PN ---
Subjective Date of Service: 08/04/22 Chief Complaint: AMBAR/RUQ pain, nausea Subjective: Improving (No abdominal pain nor nausea today on Reglan. He and did not want to start Erythromycin at this time - possibly as outpatient. He is tolerating po diet well without complaint.) Review of Systems Unremarkable Physical Examination - Vital Signs Temperature: 97.9 F Blood Pressure: 118/60 Pulse: 67 Respirations: 16 Pulse Ox (%): 96 - Physical Exam General: Alert, In no apparent distress, Oriented x3, Cooperative HEENT: Atraumatic, Normocephalic, PERRLA, EOMI Neck: Supple Respiratory: Normal air movement Cardiovascular: Normal pulses Gastrointestinal: Soft and benign, No tenderness, No rebound, No guarding Neurological: Normal speech, Normal strength at 5/5 x4 extr Assessment And Plan - Current Problems (Diagnosis) (1) RUQ abdominal pain Current Visit: Yes Status: Acute Comment: None now on Reglan. (2) Epigastric abdominal pain Current Visit: Yes Status: Acute (3) Nausea Current Visit: Yes Status: Acute - Plan REC: 1) Reglan for less than 1 month to avoid possible side effects 2) Erythromycin 40-50 mg po qac/qhs possibly outpatient start 2) GI clinic f/u
[2022-08-04] MEDS: MELATONIN 5 MG TABLET PO PRN (20:19)
[2022-08-04] MEDS: DOXEPIN HCL 10 MG CAP PO SCH (20:19)
[2022-08-04] MEDS: DOCUSATE NA 100 MG CAP PO SCH (20:19)
[2022-08-05] MEDS: ONDANSETRON 4 MG/2 ML VIAL IV PRN ×3 (01:28→12:35)
[2022-08-05] MEDS: HYDROCODONE/APAP 5/325 MG TAB PO PRN ×3 (01:28→12:35)
[2022-08-05] MEDS: carvediloL 6.25 MG TAB PO SCH (06:21)
[2022-08-05 07:17] LABS: Absolute Lymphocytes (CBC) 0.7 K/uL (0.7-4.9); Hematocrit 29.3 % (39.6-49.0); Lymphocytes % 38.5 % (15.3-44.8); MCV 87.6 fL (80-100); MPV 8.8 fL (7.6-11.3); RBC Red Blood Cell Count 3.34 M/uL (4.33-5.43)
[2022-08-05 07:57] LABS: Magnesium 1.6 mg/dL (1.8-2.4); Potassium 3.8 mmol/L (3.5-5.1)
[2022-08-05] MEDS: SUCRALFATE 1GM/10ML UCUP PO SCH ×2 (08:05→11:04)
[2022-08-05] MEDS: DOCUSATE NA 100 MG CAP PO SCH (08:06)
[2022-08-05] MEDS: METOCLOPRAMIDE 5 MG TAB PO SCH ×2 (08:06→11:04)
[2022-08-05] MEDS: THIAMINE HCL 100 MG TABLET PO SCH (08:06)
[2022-08-05] MEDS: PANTOPRAZOLE 40 MG INJ IVP SCH (08:06)
[2022-08-05] MEDS: ENSURE CLEAR 200 ML CAN PO SCH (08:06)
[2022-08-05] MEDS: GABAPENTIN 100 MG CAP PO SCH ×2 (08:06→13:56)
[2022-08-05 08:32] LABS: Blood Morphology Comment NOT SEEN (NOT SEEN); Platelet Estimate DECR; White Blood Cell Scan OK (OK)
[2022-08-05] MEDS ORDERED: POTASSIUM 25 MEQ EFFERV TAB PO ONE (09:00)
[2022-08-05] MEDS ORDERED: MAGNESIUM SULFATE 1 gm IVPB 1 GM/100 ML BAG IV ONE (09:00)
[2022-08-05] MEDS: INSULIN -REGULAR HUMAN 50 UNIT/0.5 ML ML SQ SCH ×2 (09:05→12:36)
[2022-08-05 09:55] VITALS: O2SAT 96
--- NOTE | 2022-08-05 09:55 | P.PN ---
Subjective Date of Service: 08/05/22 Chief Complaint: AMBAR/RUQ pain, nausea Subjective: Improving (Feels great and ready to go home. No abdominal pain, N/V.) Review of Systems Unremarkable Physical Examination - Vital Signs Temperature: 97.1 F Blood Pressure: 113/68 Pulse: 71 Respirations: 18 Pulse Ox (%): 96 - Physical Exam General: Alert, In no apparent distress, Oriented x3, Cooperative HEENT: Atraumatic, Normocephalic, PERRLA, EOMI Neck: Supple Respiratory: Normal air movement Cardiovascular: Normal pulses Gastrointestinal: Soft and benign, No tenderness, No rebound, No guarding Neurological: Normal speech, Normal strength at 5/5 x4 extr Assessment And Plan - Current Problems (Diagnosis) (1) RUQ abdominal pain Current Visit: Yes Status: Acute Comment: None now on Reglan. (2) Epigastric abdominal pain Current Visit: Yes Status: Acute (3) Nausea Current Visit: Yes Status: Acute - Plan REC: 1) Reglan for less than 1 month to avoid possible side effects 2) Erythromycin 40-50 mg po qac/qhs possibly outpatient start 2) GI clinic f/u
[2022-08-05 12:38] VITALS: BP 120/63; TEMP 97.4
--- NOTE | 2022-08-05 15:16 | P.DS ---
Admission Date: 07/28/22 Discharge Date: 08/05/22 Disposition: ROUTINE DISCHARGE Discharge Condition: GOOD Reason for Admission: AMBAR/RUQ pain, nausea Consultations: GI - Dr. Palomo General Surgery - Dr. Corbin Procedures: EGD, Gastric emptying study, Esophagram, HIDA, CT Abd/pelvis Brief History of Present Illness: 57-year-old gentleman with a history of alcoholic liver cirrhosis, recently diagnosed with gastric varices, gastric erosions and gastric varices presented to the emergency department with a complaint of intractable abdominal pain, and nausea and vomiting. Patient stated she is not been able to keep any fluid or food in. She visited multiple emergency departments, including [facility]. He was managing his symptoms with Pepcid and Reglan which he said he has not been able to keep them down. Most recent CT abdomen and pelvis done demonstrated nodular contour of the liver consistent with liver cirrhosis and splenomegaly. Patient in distress due to pain and vomiting in the ED. Blood work shows hyponatremia and elevated total protein which may indicate dehydration. Patient is hospitalized for further management. Hospital Course: Problem List intractable nausea/vomiting, abdominal pain - multifactorial secondary to gastroparesis, liver cirrhosis with portal hypertension, gastritis, varices, splenomegaly gastroparesis alcoholic liver cirrhosis pancytopenia secondary to acute illness in pt with cirrhosis/splenomegaly IDDM2 Hyponatremia GERD HTN Patient presented with intractable nausea, vomiting, and abdominal pain. Dr. Palomo, GI, was consulted. Patient underwent CT, U/S, HIDA, gastric emptying study, esophagram. Found to have inflammation around duodenum, underwent EGD and noted to have gastritis, esophageal varices, which had improved compared to ~1 month prior. HIDA scan was negative. Gastric emptying study revealed mild gastroparesis. During the gastric emptying study, he felt the egg getting stuck in his throat and eventually was able to swallow it. Subsequent esophagram noted known esophageal varices and some mild tertiary contractions - mild dysmotility He was started on scheduled reglan in addition to the prior carafate/protonix. He had gradual improvement of his symptoms. His diet was advanced to soft/chopped foods which he tolerated. He did require norco pain medication. he is discharged home to continue current regimen. Continue with liquids / soft/chewed diet. Advised on small, frequent meals. Miralax as needed to maintain 1 soft BM/ day Follow up PCP as scheduled in [address] Corbin later this week Dr. Palomo in ~2-3 weeks. Patient was noted to be pancytopenic on presentation and lab values did trend downward throughout the hospitalization, and plateaued by day of discharge. Patient was clinically improving and remained afebrile off antibiotics throughout the hospitalization. Pancytopenia secondary to liver cirrhosis, splenomegaly, malnourished, and in setting of acute illness. Recommend repeat CBC in ~1 week. Incidental nonspecific small lesions noted in spleen on CT at time of admission previously seen on prior CT. Nonspecific, discussed with surgery, GI, heme/onc - felt clinically insignificant / not contributing to patient's symptoms. Consider repeat imaging in future Vital Signs/Physical Exam: Temp Pulse Resp BP Pulse Ox 97.4 F 67 18 120/63 96 08/05/22 12:00 08/05/22 12:00 08/05/22 13:35 08/05/22 12:00 08/05/22 13:35 General: Alert, In no apparent distress, Oriented x3 HEENT: EOMI, Sclerae nonicteric Neck: Supple, No LAD Respiratory: Clear to auscultation bilaterally, Normal air movement Cardiovascular: No edema, Regular rate/rhythm Gastrointestinal: Soft and benign, Non-distended, Hepatosplenomegaly, Tenderness (mild epigastric on deep palpation) Musculoskeletal: No erythema, No tenderness Integumentary: No rashes, No significant lesion Neurological: Normal speech, Normal strength at 5/5 x4 extr, Normal affect Laboratory Data at Discharge: WBC 1.70 K/uL (4.3-10.9) L* 08/05/22 06:59 Hgb 9.8 g/dL (13.6-17.9) L 08/05/22 06:59 Hct 29.3 % (39.6-49.0) L 08/05/22 06:59 Plt Count 56 K/uL (152-406) L 08/05/22 06:59 PT 12.9 SECONDS (9.5-12.5) H 07/28/22 10:00 INR 1.17 07/28/22 10:00 Sodium 137 mmol/L (136-145) 08/05/22 06:59 Potassium 3.8 mmol/L (3.5-5.1) 08/05/22 06:59 BUN 4 mg/dL (7-18) L 08/05/22 06:59 Creatinine 0.75 mg/dL (0.55-1.3) 08/05/22 06:59 Glucose 202 mg/dL (74-106) H 08/05/22 06:59 Phosphorus 7.6 mg/dL (2.5-4.9) H 08/01/22 04:24 Magnesium 1.6 mg/dL (1.8-2.4) L 08/05/22 06:59 Total Bilirubin 0.6 mg/dL (0.2-1.0) 08/04/22 04:28 AST 23 U/L (15-37) 08/04/22 04:28 ALT 40 U/L (12-78) 08/04/22 04:28 Alkaline Phosphatase 77 U/L (45-117) 08/04/22 04:28 Triglycerides 51 mg/dL (<150) 07/29/22 06:47 Cholesterol 138 mg/dL (<200) 07/29/22 06:47 HDL Cholesterol 37 mg/dL (40-60) L 07/29/22 06:47 Cholesterol/HDL Ratio 3.73 07/29/22 06:47 Lipase 42 U/L (73-393) L 08/03/22 03:45 Home Medications: B12/Levomefolate Calcium/B-6 [Foltx Tablet] 1 tab PO DAILY 07/28/22 Ferrous Sulfate [Ferrous Sulfate*] 325 mg PO DAILY 07/28/22 Omeprazole 20 mg PO BID 07/28/22 Thiamine Mononitrate (Vit B1) [Vitamin B-1] 100 mg PO DAILY 07/28/22 Docusate [Colace Cap*] 100 mg PO BID 30 Days #60 cap 08/05/22 Doxepin HCl [Sinequan*] 10 mg PO BEDTIME 30 Days #30 cap 08/05/22 Gabapentin [Neurontin*] 100 mg PO TID 30 Days #90 cap 08/05/22 Hydrocodone 5/APAP 325 [[place] 5/325*] 1 tab PO Q6H PRN #20 tab 08/05/22 Metoclopramide HCl [Reglan] 10 mg PO TIDWM 30 Days #90 tab 08/05/22 Ondansetron [Zofran] 4 mg PO Q6H PRN #30 tab 08/05/22 Sucralfate [Carafate*] 10 ml PO TIDWM 30 Days #900 ml 08/05/22 carvediloL [Carvedilol] 6.25 mg PO BID 30 Days #60 tab 08/05/22 New Medications: Sucralfate [Carafate*] 10 ml PO TIDWM 30 Days #900 ml carvediloL [Carvedilol] 6.25 mg PO BID 30 Days #60 tab Docusate [Colace Cap*] 100 mg PO BID 30 Days #60 cap Gabapentin [Neurontin*] 100 mg PO TID 30 Days #90 cap Hydrocodone 5/APAP 325 [[place] 5/325*] 1 tab PO Q6H PRN #20 tab PRN Reason: Pain Scale 5-7 (Moderate) Metoclopramide HCl [Reglan] 10 mg PO TIDWM 30 Days #90 tab Doxepin HCl [Sinequan*] 10 mg PO BEDTIME 30 Days #30 cap Ondansetron [Zofran] 4 mg PO Q6H PRN #30 tab PRN Reason: Nausea / Vomiting Physician Discharge Instructions: Patient presented with intractable nausea, vomiting, and abdominal pain. Dr. Palomo, GI, was consulted. Patient underwent CT, U/S, HIDA, gastric emptying study, esophagram. Found to have inflammation around duodenum, underwent EGD and noted to have gastritis, esophageal varices, which had improved compared to ~1 month prior. HIDA scan was negative. Gastric emptying study revealed mild gastroparesis. During the gastric emptying study, he felt the egg getting stuck in his throat and eventually was able to swallow it. Subsequent esophagram noted known esophageal varices and some mild tertiary contractions - mild dysmotility He was started on scheduled reglan in addition to the prior carafate/protonix. He had gradual improvement of his symptoms. His diet was advanced to soft/chopped foods which he tolerated. He did require norco pain medication. he is discharged home to continue current regimen. Continue with liquids / soft/chewed diet. Advised on small, frequent meals. Miralax as needed to maintain 1 soft BM/ day Follow up PCP as scheduled in [address] Corbin later this week Dr. Palomo in ~2-3 weeks. Patient was noted to be pancytopenic on presentation and lab values did trend downward throughout the hospitalization, and plateaued by day of discharge. Patient was clinically improving and remained afebrile off antibiotics throughout the hospitalization. Pancytopenia secondary to liver cirrhosis, splenomegaly, malnourished, and in setting of acute illness. Recommend repeat CBC in ~1 week. Diet: Fent[place] Activity: Ad jennifer Followup: Clement Corbin MD [ACTIVE - CAN ADMIT] - (Please call to schedule appointment) Marko Ho MD [Primary Care Provider] - (Please call to schedule an appointment) Time spent managing pt's care (in minutes): 45
--- NOTE | 2022-08-21 10:21 | CON ---
Date of Consultation: 07/30/2022 Reason For Consultation: Midepigastric upper quadrant pain with nausea over the past 3 months. History Of Present Illness: The patient is a 57-year-old white male with history of alcoholic cirrho sis, recent diagnosis of gastric varices, gastric erosions. The patient presented to the hospital wi th abdominal pain, nausea, vomiting, and he has not been able to keep food down. He has been to the [facility] Emergency Room multiple times, managing his symptoms with Pepcid and Reglan for pr esumed diagnosis of gastroparesis. His recent CT of the abdomen and pelvis revealed nodular contour of the liver with cirrhosis and splenomegaly. Past Medical History: Significant for alcoholic cirrhosis, gastroparesis, gastric varices, diabetes, obesity. Home Medications: Include Foltx, doxepin, Feosol, ranitidine, lactulose, Creon, meclizine, Reglan, o meprazole, Crestor, vitamin , Coreg, and Atarax. Allergies: NKDA. Social History: , 6 children. No tobacco. No alcohol. Quit tobacco. Alcohol, he quit alco hol 3 months ago. Before he was drinking about a fifth of rum per day. Also, some and gi n with occasional beer. Family History: Father of diabetes with coronary artery disease. Mother alive with COPD, tobac co abuse. . Review of Systems: The patient had midepigastric pain, left upper quadrant pain, nausea for the past 3 months with a his tory of gastroparesis in 1 week at [facility] with some hematemesis, melena. EGD revealed gastritis an d hemorrhage. He had syncope x3 in June last month. The patient had left upper quadrant pain, nausea, but no fevers, chills, night sweats, hematemesis, chest pain, shortness of breath, seizure. He did have syncope. No lower extremity edema, muscle aches, joint aches, backaches. states he has occasional mild confusion. No hematemesis, coffee-grounds emesis, hemoptysis, epistaxis. No he maturia, dysuria, polyuria, polydipsia, hematuria. Physical Examination: Vital Signs: The patient is 6 feet, 225 pounds, BMI 30.56. The patient's temperature 97.6, degrees Fahrenheit, pulse 77, respirations 18, blood pressure 151/75, O2 saturation 96%. General: He is mildly obese male, lying in bed, in no acute distress.. HEENT: Normocephalic, atraumatic. Anicteric. Pupils equal, round, and reactive to light. Extraocu lar movements intact. Oropharynx is clear. Neck: Supple. No masses. Respirations: Clear to auscultation bilaterally. Cardiac: Regular rate and rhythm. No gallops. Abdomen: Positive bowel sounds. Soft. Mild midepigastric upper quadrant tenderness. No peritoneal signs. No hepatosplenomegaly. Extremities: No clubbing, cyanosis, or edema. 2+ pulses. Neuro: Alert and oriented x3. Grossly nonfocal. 5/5 motor. Sensation intact to light touch. Laboratory Data: The patient has a white count of , hemoglobin of 9.8, hematocrit 28.7, MC V of 87.2, platelet count 63, polys of 49.5%, lymphocytes 30.9%, monocytes 14%, eosinophils 5%, basop hils 1%. PT of 12.9, INR of 1.17, D-dimer of 388. Yesterday; sodium 137, potassium 3.4, chloride 10 7, bicarb 27, BUN 6, creatinine 0.74, glucose 114, calcium 8.7, phosphorus 3.1, magnesium 1.7, total bilirubin 0.7, AST 21, ALT 29, alkaline phosphatase 60. Ammonia less than 15. Total protein 6.5, al bumin 2.9. Triglycerides 51, cholesterol 138, LDL of 91, HDL of 37. Alpha fetoprotein 3.5. Lipase of 103, normal. TSH of 2.06, normal. UA; 1+ ketones, trace mucus, trace protein, otherwise negative . COVID-[address] abdomen and pelvis revealed moderate inflammation seen at the _ associated with inflammation, could indicate ulcer or other, indicate upper endoscopy. The re was also cholelithiasis and splenomegaly consistent with cirrhosis. Impression: 1.Midepigastric left upper quadrant pain and nausea over the past 3 months, could be due to peptic u lcer disease with CT abdomen and pelvis revealing inflammation , possibly indicative of duo denum ulcer or from his long history of gastroparesis. He has midepigastric pain maximum 10/10, now down to 4/10. No emesis or fever or chills. Still has mild nausea. In June, he had a long wee kend at [facility] due to hematemesis, melena. EGD revealing gastritis. He had syncope x3 at as well. 2.History of diabetes, hypertension, gastroparesis, and cirrhosis secondary to alcohol abuse. Recommendations: 1.EGD, PPI therapy. 2.Consider history of gastroparesis. Also DT precautions. 3.Thiamine and folate supplementation in an alcoholic patient with cirrhosis. VAL/CHARLENE Voice ID: [id number] Report ID: [id number]
== END 2022-08-05 16:05 | disposition home or self-care (01) | DRG 74 ==
LOC: ER 09:12 → ERHOLD 13:15 → 4TH 13:50
PROVIDERS: ADMIT Internal Medicine; ATTEND Hospitalist
PROC: 0DB78ZX Excision of Stomach, Pylorus, Via Natural or Artificial Opening Endoscopic, Diagnostic (ICD-10-PCS; principal; 2022-07-30 13:45)
DX: E11.43 Type 2 diabetes mellitus with diabetic autonomic (poly)neuropathy (principal); E87.1 Hypo-osmolality and hyponatremia; I85.00 Esophageal varices without bleeding; K76.6 Portal hypertension; D61.818 Other pancytopenia; E46 Unspecified protein-calorie malnutrition; K31.84 Gastroparesis; K70.30 Alcoholic cirrhosis of liver without ascites; K29.70 Gastritis, unspecified, without bleeding; K31.89 Other diseases of stomach and duodenum; K21.9 Gastro-esophageal reflux disease without esophagitis; I10 Essential (primary) hypertension; E86.0 Dehydration; R16.1 Splenomegaly, not elsewhere classified; Z79.4 Long term (current) use of insulin; Z88.8 Allergy status to other drugs, medicaments and biological substances; Z68.30 Body mass index [BMI] 30.0-30.9, adult; Z28.310 Unvaccinated for COVID-19; Z79.899 Other long term (current) drug therapy; Z20.822 Contact with and (suspected) exposure to COVID-19
CPT/HCPCS: 36415; 74177; 74220; 78227; 78264; 80048; 80053; 80061; 80076; 81001; 82105; 82140; 82728; 82947; 83690; 83735; 83880; 84100; 84132; 84145; 84443; 84484; 85025; 85027; 85379; 85610; 85652; 86140; 87811; 88305; 88312; 96365; 96366; 96372; 96375; 99285; A9537; A9541; C9113; J1170; J1815; J2405; J2550; J2704; J2765; J2805; J3360; J3475; J7030; J7042; Q9967

== ENCOUNTER 2022-10-01 14:53 | Inpatient (IN) | payer OTHER ==
--- OUTSIDE RECORDS SUMMARY | 2022-10-01 15:06 | XMS REPORT | Continuity of Care Document ---
:1965 Author Organization [facility] t Address [address] [place] [address] Care Team Providers Name Role Phone Bar Jameson MD Primary Care Physician KAREN MORALEZ Attending Clinician Unavailable BAR JAMESON Attending Clinician Unavailable JORGE A LYONS Attending Clinician Unavailable JORGE A LYONS Attending Clinician Unavailable Bar Jameson MD Attending Clinician Chanel Parrish Attending Clinician Jack Metz MD Attending Clinician Doctor Unassigned, Joice Attending Clinician Unavailable Anil Orozco MA Attending Clinician Unavailable CHANEL KIMBALL Attending Clinician Unavailable Pob, [facility] Main Attending Clinician Unavailable EDIN SANCHEZ Attending Clinician Unavailable JULIUS BRENNAN Attending Clinician Unavailable JULIUS BRENNAN Attending Clinician Unavailable MIN IVERSON Attending Clinician Unavailable Garrett VALENCIA, Jaylin Bain Attending Clinician JAYLIN MILLARD Attending Clinician Unavailable Inez ARCHER, Imani Alva Attending Clinician Unavailable ANA ROSA CHAPMAN Attending Clinician Unavailable Arleth SAVAGE, Brooks Welch Attending Clinician Ratna Valencia MD Attending Clinician Ana Rosa Chapman MD Attending Clinician [phone] Guanako Schaffer MD Attending Clinician Carolin Strickland MD Attending Clinician WILLI KRUEGER Attending Clinician Unavailable RICHARD TOLENTINO Attending Clinician Unavailable Maricel Nixon MD Attending Clinician LINDA ROMAN Attending Clinician Unavailable LINDA ROMAN Attending Clinician Unavailable Linda Roman DO Attending Clinician Genesis Ho OD Attending Clinician GENESIS HO Attending Clinician Unavailable NYASIA MEEKS Attending Clinician Unavailable Nyasia Pa Attending Clinician ESTRADA PERKINS Attending Clinician Unavailable Estrada Perkins MD Attending Clinician Evelyn Jackson MD Attending Clinician EVELYN JACKSON Attending Clinician Unavailable Carmen Rose MD Attending Clinician CARMEN ROSE Attending Clinician Unavailable Min Mai Attending Clinician Delon SANDHU Attending Clinician Unavailable Delon Golden Attending Clinician JOSE CARRION Attending Clinician Unavailable Jose Wang Attending Clinician MONIQUE DUNLAP Attending Clinician Unavailable KAREN MORALEZ Admitting Clinician Unavailable BR[place] Admitting Clinician Unavailable RATNA VALENCIA Admitting Clinician Unavailable LINDA ROMAN Admitting Clinician Unavailable Delon SANDHU Admitting Clinician Unavailable JOSE CARRION Admitting Clinician Unavailable Payers Payer Name Policy Type Policy Number Effective Date Expiration Date S ource [place] [employer] [id number] 2021 00:00:00 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 00:00: [place] with with 00 Medical bleeding bleeding Branch Gastroesop Gastroesop Disease Active 2021-10 U nivers hageal hageal 0-18 ity of reflux reflux 00:00: [place] disease disease 00 Medical with with Branch esophagiti esophagiti s and s and hemorrhage hemorrhage Nausea and Nausea and Disease Active 2021-10 U nivers vomiting vomiting 0-18 ity of in adult in adult 00:00: [place] 00 [facility] Hospital Disease Active 2021-10 Unive rs discharge discharge 0-18 ity of follow[place]up [place] [facility] 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 0-18 it y of 00:00: [place] 00 [facility] Chronic Chronic Disease Active 2021-10 Univers idiopathic idiopathic 0-18 it y of constipati [place] [facility] Hepatic Hepatic Disease Active [facility] encephal[facility] encephalop 07-18 [facility] athy athy 00:00: Medical 00 Center Other Other Disease Active [facility] cirrhosis cirrhosis 07-18 [facility] of liver of liver 00:00: Medica l 00 Center Gastropare Gastropare Disease Active [facility]: Medical [place] Generalize Generalize Disease Active [facility] 07[facility]18 [facility] abdominal abdominal 00:00: Medi vidal pain pain 00 Center Lung Lung Disease Active [facility] nodule nodule 07[facility]18 [facility] 00:[facility]: Medical 00 Center Portal Portal Disease Active [facility] hypertensi hypertensi 07-18 [facility] on on 00:00: Medical 00 Center Screening Screening Disease Active [facility] for for 07[facility]18 [facility] malignant malignant 00:00: Medi vidal neoplasm neoplasm 00 Center Hepatitis Hepatitis Disease Active [facility] B core B core 07-18 [facility] antibody antibody 00:00: Medica l positive positive 00 Center 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 00:00: [address] GI bleed GI bleed Disease Active [facility] 00:[facility]: [address] 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 7-21 ity of of liver of liver 00:00: [place] without without 00 Medical ascites ascites Branch Abnormal Abnormal Disease Active Unive rs platelets platelets 7-08 ity of 00:00: [place] [facility] Pain of Pain of Disease Active Univers upper upper 7-08 ity of abdomen abdomen 00:00: [place] [facility] Restlessne Restlessne Disease Active U nivers ss and ss and 7-08 it[place] of agitation agitation [place] [facility] Other Other Disease Active Univers cirrhosis cirrhosis 6-10 ity of of liver of liver 00:00: [place] [facility] Cholelithi Cholelithi Disease Active U nivers asis asis 6-10 ity of without without 00:00: [place] cholecysti cholecysti 00 Me dical tis tis Branch Anxiety, Anxiety, Disease Active Unive rs generalize generalize 6-10 it y of d d 00:00: [place] [facility] Branch Primary Primary Disease Active Univers insomnia insomnia 6-10 ity of 00:00: [place] [facility] Diverticul Diverticul Disease Active U nivers osis of osis of 6-10 ity of colon colon 00:00: [place] [facility] Idiopathic Idiopathic Disease Active U nivers acute acute 6-10 ity of pancreatit pancreatit [place] without is without 00 Me dical infection infection Bran ch or or necrosis necrosis Diabetic Diabetic Disease Active Unive rs gastropare gastropare 6-10 it y of sis sis 00:00: [place] [facility] Current Current Disease Active Univers moderate moderate 6-10 ity of episode of episode of [place] major major 00 Medical depressive depressive Br anch disorder disorder without without prior prior episode episode Splenomega Splenomega Disease Active U nivers ly ly 6-10 ity of 00:00: [place] [facility] Alcohol Alcohol Disease Active Univers use use 6-10 ity of 00:00: [place] 00 Medical Branch Abnormal Abnormal Disease Active Unive rs EKG EKG 5-18 ity of 00:00: [place] 00 Medical Branch Need for Need for Disease Active Unive rs hepatitis hepatitis 5-18 ity of C C 00:00: [place] screening screening 00 Medi vidal test test [...] diabetes -25 ity of mellitus mellitus 00:00: [place] with with 00 Medical diabetic diabetic Branch polyneurop polyneurop athy, with athy, with long-term long-term current current use of use of insulin insulin Essential Essential Disease Active Uni vers hypertensi hypertensi 4-25 it y of on on 00:00: [place] 00 Medical Branch Erectile Erectile Disease Active Unive rs dysfunctio dysfunctio -25 it y of n, n, 00:00: [place] unspecifie unspecifie 00 Me dical d erectile [...] ents Source Name Type Date Date Clinician Dulaglut Drug Active Nausea And Pancreati [facility] Allergy Vomiting 5-20 [facility] Medical 00 Center DULAGLUT DRUG Active High N/V Univers MIRACLE INGREDI 5-20 ity of 00:00: [place] 00 Medical Branch Dulaglut Propensi Active Unknown - Pancreati Univers miracle ty to See comments 5-20 tis ity of adverse 00:00: Pancreati [place] reaction 00 tis Medical s Branch DULAGLUT Allergy Active High N\\T\\V [facility] 5-20 [facility] NO KNOWN Allergy Active [facility] Social History Social Habit Start Date Stop Date Quantity Comments Source History [facility] University [facility] o f Alcohol Std Drinks [place] [facility] [place] History [facility] o f Alcohol Binge Foundation [facility] al Branch History of tobacco Cigarette Smoker University of use [facility] History [facility] Exposure to 2022-08-28 2022-09-07 Not sure University SARS-CoV-2 (event) 00:00:00 10:29:00 [facility] Tobacco use and 2022-08-14 2022-08-[address] [facility] exposure 00:00:00 00:00:00 Medical Center Alcohol intake 2022-08-14 2022-08-14 [facility]er [facility]00 of alcohol Medical Center (finding) History [facility] 2022-07-02 2022-07-[address] [facility] Transport Med 00:00:00 00:00:[address] [place] [facility] 2022-07-02 2022-07-[address] [facility] Housing Unable to 00:00:00 00:00:00 Medical Center Pay History [facility] 2022-07-02 2022-07-[address] [facility] Housing Places 00:00:00 00:00:00 Medical Ce nter Lived History [facility] 2022-07-02 2022-07-[address] [facility] Housing Homeless 00:00:00 00:00:00 Medical Center Last Year Cigarettes smoked 2022-05-02 2022-05-02 Univers ity of current (pack per 00:00:00 00:00:00 [facility] ) - Reported Branch Cigarette 2022-05-02 2022-05-02 University of pack-years 00:00:00 00:00:00 [facility] Alcohol Comment 2022-03-30 2022-03-30 Drinks 5-6 shots Uni versity of 00:00:00 00:00:00 of rum a week. [facility] Sex Ass[birth year] At [birth year] Jaziel De La Vega 00:00:00 00:00:00 Medical Center Smoking Status Start Date Stop Date Source Ex-smoker 2022-05-02 00:00:00 2022-05-02 00:00:00 [facility] Branch Medications Ordered Filled Start Stop Current Ordering Indication Dosage Frequency Signature Comments Components Source Medication Medication Date Date Medication? Clinician (SIG) Name Name busPIRone 2021-10 Yes [id number] 10mg Take 1 U nivers 10 mg 1-30 tablet by ity of tablet 00:00: mouth 2 [place] ([facility]) Medical times [place] daily as needed (anxiety and depression ). busPIRone 2021-10 Yes [id number] 10mg Take 1 U nivers 10 mg 1-30 tablet by ity of tablet 00:00: mouth 2 [place] ([facility]) [facility] times [place] daily as needed (anxiety and depression ). busPIRone 2021-10 Yes [id number] 10mg Take 1 U nivers 10 mg 1-30 tablet by ity of tablet 00:00: mouth [place] [address] ([facility]) [facility] daily as needed (anxiety and depression ). metFORMIN 2021-10 Yes [id number] 500mg Take 1 U nivers 500 mg 1-28 tablet by ity of tablet 00:00: mouth in [address] and 1 tablet in the evening. Take with meals. metFORMIN 2021-10 Yes [id number] 500mg Take 1 U nivers 500 mg 1-28 tablet by ity of tablet 00:00: mouth in [address] and 1 tablet in the evening. Take with meals. gabapentin 2021-10 Yes [id number] 100mg Take 1 Univers 100 mg 1-28 capsule by ity of capsule 00:00: mouth in [address] and 1 capsule at noon and 1 capsule in the evening. metFORMIN 2021-10 Yes [id number] 500mg Take 1 U nivers 500 mg 1-28 tablet by ity of tablet 00:00: mouth in [address] and 1 tablet in the evening. Take with meals. gabapentin 2021-10 Yes [id number] 100mg Take 1 Univers 100 mg 1-28 capsule by ity of capsule 00:00: mouth in [address] and 1 capsule at noon and 1 capsule in the evening. metFORMIN 2021-10 Yes [id number] 500mg Take 1 U nivers 500 mg 1-28 tablet by ity of tablet 00:00: mouth in [place] [address] the Medical morning Branch and 1 tablet in the evening. Take with meals. gabapentin 2021-10 Yes [id number] 100mg Take 1 Univers 100 mg 1-28 capsule by ity of capsule 00:00: mouth in [place] [address] the Medical morning Branch and 1 capsule at noon and 1 capsule in the evening. metFORMIN 2021-10 Yes [id number] 500mg Take 1 U nivers 500 mg 1-28 tablet by ity of tablet 00:00: mouth in [place] [address] the Medical morning Branch and 1 tablet in the evening. Take with meals. gabapentin 2021-10 Yes [id number] 100mg Take 1 Univers 100 mg 1-28 capsule by ity of capsule 00:00: mouth in [place] [address] the Medical morning Branch and 1 capsule at noon and 1 capsule in the evening. metFORMIN 2021-10- No 500mg Take 500 Un darius 500 mg 1-18 11-18 mg by ity of tablet 11:33: 00:00 mouth 2 [place] 14 :00 ([facility]) Medical times [place] daily with meals. Takes 2 tablets twice daily metFORMIN 2021-10- No 500mg Take 500 Un darius 500 mg 1-18 11-18 mg by ity of tablet 11:33: 00:00 mouth 2 [place] 14 :00 ([facility]) Medical times [place] daily with meals. Takes 2 tablets twice daily metFORMIN 2021-10- No 500mg Take 500 Un darius 500 mg 1-18 11-18 mg by ity of tablet 11:33: 00:00 mouth 2 [place] 14 :00 (two) Medical times Branch daily with meals. Takes 2 tablets twice daily metFORMIN 2021-10- No 500mg Take 500 Un darius 500 mg 1-18 11-18 mg by ity of tablet 11:33: 00:00 mouth 2 [place] 14 :00 ([facility]) Medical times Branch daily with meals. Takes 2 tablets twice daily metFORMIN 2021-10- No 500mg Take 500 Un darius 500 mg 1-18 11-18 mg by ity of tablet 11:33: 00:00 mouth 2 [place] 14 :00 (two) Medical times Branch daily with meals. Takes 2 tablets twice daily empaglifloz 2021-10- No Take by Un darius in 11-07 mouth ity of (JARDIANCE) 11:21: 00:00 daily. [place] 25 mg Tab 06 :00 Medical Branch empaglifloz 2021-10- No Take by Un darius in 11-07 mouth ity of (JARDIANCE) 11:21: 00:00 daily. [place] as 25 mg Tab 06 :00 Medical Branch empaglifloz 2021-10- No Take by Un darius in 11-07 mouth ity of (JARDIANCE) 11:21: 00:00 daily. [place] as 25 mg Tab 06 :00 Medical Branch empaglifloz 2021-10- No Take by Un darius in 11-07 mouth ity of (JARDIANCE) 11:21: 00:00 daily. [place] 25 mg Tab 06 :00 Medical Branch empaglifloz 2021-10- No Take by Un darius in 11-07 mouth ity of (JARDIANCE) 11:21: 00:00 daily. [place] as 25 mg Tab 06 :00 Medical Branch traMADoL 50 2021-10 Yes [id number] 50mg Take 1 Univ ers mg tablet 1-18 tablet by ity o f 00:00: mouth [place] 00 every 6 Medical (six) Branch hours as needed for Pain (scale 7-10) (Cannot take NSAIDS). Indication s: chronic pain carvediloL 2021-10 Yes [id number] 12.5mg Take 1 Univers 12.5 mg 1-18 tablet by ity of tablet 00:00: mouth in [place] 00 the Medical morning Branch and 1 tablet in the evening. Take with meals. ondansetron 2021-10 Yes [id number] 4mg Take 1 Univers 4 mg 1-18 tablet by ity of disintegrat 00:00: mouth [place] ing tablet 00 every 8 Medica l (eight) Branch hours as needed for Nausea and Vomiting (N/V). tirzepatide 2021-10 Yes [id number] 2.5mg inject 2.5 Univers (MOUNJARO) 1-18 mg under ity o f 2.5 mg/0.5 00:00: the skin [place] as mL PnIj 00 weekly. Medical Start Branch 2.5mg SC qWeek x 4 Weeks, then increase to 5 mg SC qWeek tirzepatide 2021-10 Yes [id number] 5mg inject 5 Univers (MOUNJARO) 1-18 mg under ity o f 5 mg/0.5 mL 00:00: [place] PnIj 00 weekly. Medical Start Branch 2.5mg SC qWeek x 4 Weeks, then increase to 5 mg SC qWeek metFORMIN 2021-10 Yes [id number] 500mg Take 1 U nivers 500 mg 1-18 tablet by ity of tablet 00:00: mouth in [place] 00 the Medical morning Branch and 1 tablet in the evening. Take with meals. Takes 2 tablets twice daily traMADoL 50 2021-10 Yes [id number] 50mg Take 1 Univ ers mg tablet 1-18 tablet by ity o f 00:00: mouth [place] 00 every 6 Medical (six) Branch hours as needed for Pain (scale 7-10) (Cannot take NSAIDS). Indication s: chronic pain carvediloL 2021-10 Yes [id number] 12.5mg Take 1 Univers 12.5 mg 1-18 tablet by ity of tablet 00:00: mouth in [place] 00 the Medical morning Branch and 1 tablet in the evening. Take with meals. ondansetron 2021-10 Yes [id number] 4mg Take 1 Univers 4 mg 1-18 tablet by ity of disintegrat 00:00: mouth [place] ing tablet 00 every 8 Medica l (eight) Branch hours as needed for Nausea and Vomiting (N/V). tirzepatide 2021-10 Yes [id number] 2.5mg inject 2.5 Univers (MOUNJARO) 1-18 mg under ity o f 2.5 mg/0.5 00:00: the skin [place] PnIj 00 weekly. Medical Start Branch 2.5mg SC qWeek x 4 Weeks, then increase to 5 mg SC qWeek tirzepatide 2021-10 Yes [id number] 5mg inject 5 Univers (MOUNJARO) 1-18 mg under ity o f 5 mg/0.5 mL 00:00: [place] PnIj 00 weekly. Medical Start Branch 2.5mg SC qWeek x 4 Weeks, then increase to 5 mg SC qWeek metFORMIN 2021-10 Yes [id number] 500mg Take 1 U nivers 500 mg 1-18 tablet by ity of tablet 00:00: mouth in [place] 00 the Medical morning Branch and 1 tablet in the evening. Take with meals. Takes 2 tablets twice daily traMADoL 50 2021-10 Yes [id number] 50mg Take 1 Univ ers mg tablet 1-18 tablet by ity o f 00:00: mouth [place] 00 every 6 Medical (six) Branch hours as needed for Pain (scale 7-10) (Cannot take NSAIDS). Indication s: chronic pain carvediloL 2021-10 Yes [id number] 12.5mg Take 1 Univers 12.5 mg 1-18 tablet by ity of tablet 00:00: mouth in [place] 00 the Medical morning Branch and 1 tablet in the evening. Take with meals. ondansetron 2021-10 Yes [id number] 4mg Take 1 Univers 4 mg 1-18 tablet by ity of disintegrat 00:00: mouth [place] ing tablet 00 every 8 Medica l (eight) Branch hours as needed for Nausea and Vomiting (N/V). tirzepatide 2021-10 Yes [id number] 2.5mg inject 2.5 Univers (MOUNJARO) 1-18 mg under ity o f 2.5 mg/0.5 00:00: the skin [place] PnIj 00 weekly. Medical Start Branch 2.5mg SC qWeek x 4 Weeks, then increase to 5 mg SC qWeek tirzepatide 2021-10 Yes [id number] 5mg inject 5 Univers (MOUNJARO) 1-18 mg under ity o f 5 mg/0.5 mL 00:00: [place] PnIj 00 weekly. Medical Start Branch 2.5mg SC qWeek x 4 Weeks, then increase to 5 mg SC qWeek metFORMIN 2021-10 Yes [id number] 500mg Take 1 U nivers 500 mg 1-18 tablet by ity of tablet 00:00: mouth in [place] 00 the Medical morning Branch and 1 tablet in the evening. Take with meals. Takes 2 tablets twice daily traMADoL 50 2021-10 Yes [id number] 50mg Take 1 Univ ers mg tablet 1-18 tablet by ity o f 00:00: mouth [place] 00 every 6 Medical (six) Branch hours as needed for Pain (scale 7-10) (Cannot take NSAIDS). Indication s: chronic pain carvediloL 2021-10 Yes [id number] 12.5mg Take 1 Univers 12.5 mg 1-18 tablet by ity of tablet 00:00: mouth in [place] 00 the Medical morning Branch and 1 tablet in the evening. Take with meals. ondansetron 2021-10 Yes [id number] 4mg Take 1 Univers 4 mg 1-18 tablet by ity of disintegrat 00:00: mouth [place] ing tablet 00 every 8 Medica l (eight) Branch hours as needed for Nausea and Vomiting (N/V). tirzepatide 2021-10 Yes [id number] 2.5mg inject 2.5 Univers (MOUNJARO) 1-18 mg under ity o f 2.5 mg/0.5 00:00: the skin [place] PnIj 00 weekly. Medical Start Branch 2.5mg SC qWeek x 4 Weeks, then increase to 5 mg SC qWeek tirzepatide 2021-10 Yes [id number] 5mg inject 5 Univers (MOUNJARO) 1-18 mg under ity o f 5 mg/0.5 mL 00:00: [place] PnIj 00 weekly. Medical Start Branch 2.5mg SC qWeek x 4 Weeks, then increase to 5 mg SC qWeek metFORMIN 2021-10 Yes [id number] 500mg Take 1 U nivers 500 mg 1-18 tablet by ity of tablet 00:00: mouth in [place] 00 the Medical morning Branch and 1 tablet in the evening. Take with meals. Takes 2 tablets twice daily traMADoL 50 2021-10 Yes [id number] 50mg Take 1 Univ ers mg tablet 1-18 tablet by ity o f 00:00: mouth [place] 00 every 6 Medical (six) Branch hours as needed for Pain (scale 7-10) (Cannot take NSAIDS). Indication s: chronic pain carvediloL 2021-10 Yes [id number] 12.5mg Take 1 Univers 12.5 mg 1-18 tablet by ity of tablet 00:00: mouth in [place] 00 the Medical morning Branch and 1 tablet in the evening. Take with meals. ondansetron 2021-10 Yes [id number] 4mg Take 1 Univers 4 mg 1-18 tablet by ity of disintegrat 00:00: mouth [place] ing tablet 00 every 8 Medica l (eight) Branch hours as needed for Nausea and Vomiting (N/V). tirzepatide 2021-10 Yes [id number] 2.5mg inject 2.5 Univers (MOUNJARO) 1-18 mg under ity o f 2.5 mg/0.5 00:00: the skin [place] mL PnIj 00 weekly. Medical Start Branch 2.5mg SC qWeek x 4 Weeks, then increase to 5 mg SC qWeek tirzepatide 2021-10 Yes [id number] 5mg inject 5 Univers (MOUNJARO) 1-18 mg under ity o f 5 mg/0.5 mL 00:00: [place] PnIj 00 weekly. Medical Start Branch 2.5mg SC qWeek x 4 Weeks, then increase to 5 mg SC qWeek metFORMIN 2021-10 Yes [id number] 500mg Take 1 U nivers 500 mg 1-18 tablet by ity of tablet 00:00: mouth in [place] 00 the Medical morning Branch and 1 tablet in the evening. Take with meals. Takes 2 tablets twice daily traMADoL 50 2021-10 Yes [id number] 50mg Take 1 Univ ers mg tablet 1-18 tablet by ity o f 00:00: mouth [place] 00 every 6 Medical (six) Branch hours as needed for Pain (scale 7-10) (Cannot take NSAIDS). Indication s: chronic pain carvediloL 2021-10 Yes [id number] 12.5mg Take 1 Univers 12.5 mg 1-18 tablet by ity of tablet 00:00: mouth in [place] 00 the Medical morning Branch and 1 tablet in the evening. Take with meals. ondansetron 2021-10 Yes [id number] 4mg Take 1 Univers 4 mg 1-18 tablet by ity of disintegrat 00:00: mouth [place] ing tablet 00 every 8 Medica l (eight) Branch hours as needed for Nausea and Vomiting (N/V). tirzepatide 2021-10 Yes [id number] 2.5mg inject 2.5 Univers (MOUNJARO) 1-18 mg under ity o f 2.5 mg/0.5 00:00: the skin [place] PnIj 00 weekly. Medical Start Branch 2.5mg SC qWeek x 4 Weeks, then increase to 5 mg SC qWeek tirzepatide 2021-10 Yes [id number] 5mg inject 5 Univers (MOUNJARO) 1-18 mg under ity o f 5 mg/0.5 mL 00:00: [place] PnIj 00 weekly. Medical Start Branch 2.5mg SC qWeek x 4 Weeks, then increase to 5 mg SC qWeek traMADoL 50 2021-10 Yes [id number] 50mg Take 1 Univ ers mg tablet 1-18 tablet by ity o f 00:00: mouth [place] 00 every 6 Medical (six) Branch hours as needed for Pain (scale 7-10) (Cannot take NSAIDS). Indication s: chronic pain carvediloL 2021-10 Yes [id number] 12.5mg Take 1 Univers 12.5 mg 1-18 tablet by ity of tablet 00:00: mouth in [place] 00 the Medical morning Branch and 1 tablet in the evening. Take with meals. ondansetron 2021-10 Yes [id number] 4mg Take 1 Univers 4 mg 1-18 tablet by ity of disintegrat 00:00: mouth [place] ing tablet 00 every 8 Medica l (eight) Branch hours as needed for Nausea and Vomiting (N/V). tirzepatide 2021-10 Yes [id number] 2.5mg inject 2.5 Univers (MOUNJARO) 1-18 mg under ity o f 2.5 mg/0.5 00:00: the skin [place] PnIj 00 weekly. Medical Start Branch 2.5mg SC qWeek x 4 Weeks, then increase to 5 mg SC qWeek tirzepatide 2021-10 Yes [id number] 5mg inject 5 Univers (MOUNJARO) 1-18 mg under ity o f 5 mg/0.5 mL 00:00: [place] PnIj 00 weekly. Medical Start Branch 2.5mg SC qWeek x 4 Weeks, then increase to 5 mg SC qWeek traMADoL 50 2021-10 Yes [id number] 50mg Take 1 Univ ers mg tablet 1-18 tablet by ity o f 00:00: mouth [place] 00 every 6 Medical (six) Branch hours as needed for Pain (scale 7-10) (Cannot take NSAIDS). Indication s: chronic pain carvediloL 2021-10 Yes [id number] 12.5mg Take 1 Univers 12.5 mg 1-18 tablet by ity of tablet 00:00: mouth in [place] 00 the Medical morning Branch and 1 tablet in the evening. Take with meals. ondansetron 2021-10 Yes [id number] 4mg Take 1 Univers 4 mg 1-18 tablet by ity of disintegrat 00:00: mouth [place] ing tablet 00 every 8 Medica l (eight) Branch hours as needed for Nausea and Vomiting (N/V). tirzepatide 2021-10 Yes [id number] 2.5mg inject 2.5 Univers (MOUNJARO) 1-18 mg under ity o f 2.5 mg/0.5 00:00: the skin [place] mL PnIj 00 weekly. Medical Start Branch 2.5mg SC qWeek x 4 Weeks, then increase to 5 mg SC qWeek tirzepatide 2021-10 Yes [id number] 5mg inject 5 Univers (MOUNJARO) 1-18 mg under ity o f 5 mg/0.5 mL 00:00: [place] PnIj 00 weekly. [facility] Start [facility] 2.5mg SC qWeek x 4 Weeks, then increase to 5 mg [place] qWeek traMADoL 50 2021-10 Yes [id number] 50mg Take 1 [facility] mg tablet 1-18 tablet by [facility] o f 00:00: mouth [place] 00 every 6 Medical (six) Branch hours as needed for Pain (scale 7-10) (Cannot take NSAIDS). Indication s: chronic pain carvediloL 2021-10 Yes [id number] 12.5mg Take 1 [facility] 12.5 mg 1-18 tablet by [facility] of tablet 00:00: mouth in [place] 00 the Medical morning Branch and 1 tablet in the evening. Take with meals. ondansetron 2021-10 Yes [id number] 4mg Take 1 [facility] 4 mg 1-18 tablet by [facility]y of disintegrat 00:00: mouth [place] ing tablet 00 every 8 Medica l (eight) Branch hours as needed for Nausea and Vomiting (N/V). tirzepatide 2021-10 Yes [id number] 2.5mg inject 2.5 [facility] (MOUNJARO) 1-18 mg under ity o f 2.5 mg/0.5 00:00: the skin [place] PnIj 00 weekly. [facility] Start [facility] 2.5mg SC qWeek x 4 Weeks, then increase to 5 mg [place] qWeek tirzepatide 2021-10 Yes [id number] 5mg inject 5 [facility] (MOUNJARO) 1-18 mg under ity o f 5 mg/0.5 mL 00:00: the skin [place] PnIj 00 weekly. [facility] Start [facility] 2.5mg SC qWeek x 4 Weeks, then increase to 5 mg [place] qWeek traMADoL 50 2021-10 Yes [id number] 50mg Take 1 [facility] mg tablet 1-18 tablet by ity o f 00:00: mouth [place] 00 every 6 Medical (six) Branch hours as needed for Pain (scale 7-10) (Cannot take NSAIDS). Indication s: chronic pain carvediloL 2021-10 Yes [id number] 12.5mg Take 1 [facility] 12.5 mg 1-18 tablet by [facility] of tablet 00:00: mouth in [place] 00 the Medical morning Branch and 1 tablet in the evening. Take with meals. ondansetron 2021-10 Yes [id number] 4mg Take 1 [facility] 4 mg 1-18 tablet by [facility]y of disintegrat 00:00: mouth [place] ing tablet 00 every 8 Medica l (eight) Branch hours as needed for Nausea and Vomiting (N/V). tirzepatide 2021-10 Yes [id number] 2.5mg inject 2.5 [facility] (MOUNJARO) 1-18 mg under ity o f 2.5 mg/0.5 00:00: the [place] PnIj 00 weekly. [facility] Start [facility] 2.5mg SC qWeek x 4 Weeks, then increase to 5 mg [place] qWeek tirzepatide 2021-10 Yes [id number] 5mg inject 5 [facility] (MOUNJARO) 1-18 mg under ity o f 5 mg/0.5 mL 00:00: the [place] PnIj 00 weekly. [facility] Start [facility] 2.5mg SC qWeek x 4 Weeks, then increase to 5 mg [place] qWeek traMADoL 50 2021-10 Yes [id number] 50mg Take 1 [facility] mg tablet 1-18 tablet by ity o f 00:00: mouth [place] 00 every 6 Medical (six) Branch hours as needed for Pain (scale 7-10) (Cannot take NSAIDS). Indication s: chronic pain carvediloL 2021-10 Yes [id number] 12.5mg Take 1 [facility] 12.5 mg 1-18 tablet by [facility] of tablet 00:00: mouth in [place] 00 the Medical morning Branch and 1 tablet in the evening. Take with meals. ondansetron 2021-10 Yes [id number] 4mg Take 1 [facility] 4 mg 1-18 tablet by [facility] of disintegrat 00:00: mouth [place] ing tablet 00 every 8 Medica l (eight) Branch hours as needed for Nausea and Vomiting (N/V). tirzepatide 2021-10 Yes [id number] 2.5mg inject 2.5 [facility] (MOUNJARO) 1-18 mg under ity o f 2.5 mg/0.5 00:00: the [place] PnIj 00 weekly. [facility] Start [facility] 2.5mg SC qWeek x 4 Weeks, then increase to 5 mg [place] qWeek tirzepatide 2021-10 Yes [id number] 5mg inject 5 [facility] (MOUNJARO) 1-18 mg under [facility]y o f 5 mg/0.5 mL 00:00: the [place] PnIj 00 weekly. [facility] Start [facility] 2.5mg SC qWeek x 4 Weeks, then increase to 5 mg [place] qWeek traMADoL 50 2021-10 Yes [id number] 50mg Take 1 [facility] mg tablet 1-18 tablet by ity o f 00:00: mouth [place] 00 every 6 Medical (six) Branch hours as needed for Pain (scale 7-10) (Cannot take NSAIDS). Indication s: chronic pain carvediloL 2021-10 Yes [id number] 12.5mg Take 1 [facility] 12.5 mg 1-18 tablet by [facility] of tablet 00:00: mouth in [place] 00 the Medical morning Branch and 1 tablet in the evening. Take with meals. ondansetron 2021-10 Yes [id number] 4mg Take 1 [facility] 4 mg 1-18 tablet by [facility] of disintegrat 00:00: mouth [place] ing tablet 00 every 8 Medica l (eight) Branch hours as needed for Nausea and Vomiting (N/V). tirzepatide 2021-10 Yes [id number] 2.5mg inject 2.5 [facility] (MOUNJARO) 1-18 mg under ity o f 2.5 mg/0.5 00:00: the [place] PnIj 00 weekly. [facility] Start [facility] 2.5mg SC qWeek x 4 Weeks, then increase to 5 mg [place] qWeek tirzepatide 2021-10 Yes [id number] 5mg inject 5 [facility] (MOUNJARO) 1-18 mg under ity o f 5 mg/0.5 mL 00:00: the [place] PnIj 00 weekly. [facility] Start [facility] 2.5mg SC qWeek x 4 Weeks, then increase to 5 mg SC qWeek metFORMIN 2021-10- No [id number] 500mg Take 1 [facility] 500 mg 1-18 - tablet by [facility] of tablet 00:00: 00:00 mouth in [place] 00 :00 the Medical morning Branch and 1 tablet in the evening. Take with meals. Takes 2 tablets twice daily metFORMIN 2021-10- No [id number] 500mg Take 1 [facility] 500 mg 1-18 - tablet by [facility] of tablet 00:00: 00:00 mouth in [place] 00 :00 the Medical morning Branch and 1 tablet in the evening. Take with meals. Takes 2 tablets twice daily lipase-prot 2021-10 Yes [id number] Take 2 [facility] ease-amylas 1-11 capsules ity of e 00:00: by mouth [place] 36,000-114, 00 with meals Me dical 000- and 1 with Branch 180,000 each unit CpDR snack. lipase-prot 2021-10 Yes [id number] Take 2 [facility] ease-amylas 1-11 capsules ity of e 00:00: by mouth [place] 36,000-114, 00 with meals Me dical 000- and 1 with Branch 180,000 each unit CpDR snack. lipase-prot 2021-10 Yes [id number] Take 2 [facility] ease-amylas 1-11 capsules ity of e 00:00: by mouth [place] 36,000-114, 00 with meals Me dical 000- and 1 with Branch 180,000 each unit CpDR snack. lipase-prot 2021-10 Yes [id number] Take 2 [facility] ease-amylas 1-11 capsules ity of e 00:00: by mouth [place] 36,000-114, 00 with meals Me dical 000- and 1 with Branch 180,000 each unit CpDR snack. lipase-prot 2021-10 Yes [id number] Take 2 [facility] ease-amylas 1-11 capsules ity of e 00:00: by mouth [place] 36,000-114, 00 with meals Me dical 000- and 1 with Branch 180,000 each unit CpDR snack. lipase-prot 2021-10 Yes [id number] Take 2 [facility] ease-amylas 1-11 capsules ity of e 00:00: by mouth [place] 36,000-114, 00 with meals Me dical 000- and 1 with Branch 180,000 each unit CpDR snack. lipase-prot 2021-10 Yes [id number] Take 2 [facility] ease-amylas 1-11 capsules ity of e 00:00: by mouth [place] 36,000-114, 00 with meals Me dical 000- and 1 with Branch 180,000 each unit CpDR snack. lipase-prot 2021-10 Yes [id number] Take 2 [facility] ease-amylas 1-11 capsules ity of e 00:00: by mouth [place] 36,000-114, 00 with meals Me dical 000- and 1 with Branch 180,000 each unit CpDR snack. lipase-prot 2021-10 Yes [id number] Take 2 [facility] ease-amylas 1-11 capsules ity of e 00:00: by mouth [place] 36,000-114, 00 with meals Me dical 000- and 1 with Branch 180,000 each unit CpDR snack. lipase-prot 2021-10 Yes [id number] Take 2 [facility] ease-amylas 1-11 capsules ity of e 00:00: by mouth [place] 36,000-114, 00 with meals Me dical 000- and 1 with Branch 180,000 each unit CpDR snack. lipase-prot 2021-10 Yes [id number] Take 2 [facility] ease-amylas 1-11 capsules ity of e 00:00: by mouth [place] 36,000-114, 00 with meals Me dical 000- and 1 with Branch 180,000 each unit CpDR snack. lipase-prot 2021-10 Yes [id number] Take 2 [facility] ease-amylas 1-11 capsules ity of e 00:00: by mouth [place] 36,000-114, 00 with meals Me dical 000- and 1 with Branch 180,000 each unit CpDR snack. lipase-prot 2021-10 Yes [id number] Take 2 [facility] ease-amylas 1-11 capsules ity of e 00:00: by mouth [place] 36,000-114, 00 with meals Me dical 000- and 1 with Branch 180,000 each unit CpDR snack. lipase-prot 2021-10 Yes [id number] Take 2 [facility] ease-amylas 1-11 capsules ity of e 00:00: by mouth [place] 36,000-114, 00 with meals Me dical 000- and 1 with Branch 180,000 each unit CpDR snack. lipase-prot 2021-10 Yes [id number] Take 2 [facility] ease-amylas 1-11 capsules ity of e 00:00: by mouth [place] 36,000-114, 00 with meals Me dical 000- and 1 with Branch 180,000 each unit CpDR snack. lipase-prot 2021-10 Yes [id number] Take 2 [facility] ease-amylas 1-11 capsules ity of e 00:00: by mouth [place] 36,000-114, 00 with meals Me dical 000- and 1 with Branch 180,000 each unit CpDR snack. lipase-prot 2021-10 Yes [id number] Take 2 [facility] ease-amylas 1-11 capsules ity of e 00:00: by mouth [place] 36,000-114, 00 with meals Me dical 000- and 1 with Branch 180,000 each unit CpDR snack. metFORMIN 2021-10 Yes 500mg Take [address] [facility] (GLUCOPHAGE 0-25 [facility] ) 500 MG 10:57: mouth 2 Medica l tablet 12 (two) Center times daily with breakfast and dinner. empaglifloz 2021-10 Yes 25mg QD Take [address] [facility] in 0-25 by [facility] (Jardiance) 10:57: daily. Medi vidal 25 mg 12 Center tablet insulin 2021-[address] [facility] lispro 0-[facility] (HumaLOG) 10:57: usly in Medic al 100 unit/mL 12 the Center injection morning. omeprazole 2021-10 Yes 20mg Q.5D Take [address] [facility] (PriLOSEC) 0-25 by mouth 2 [place] [facility] 20 MG 10:54: (two) Medical capsule 28 times Center daily. meclizine 2021-10 Yes 25mg Take [address] [facility] (ANTIVERT) 0-25 by mouth 3 [place] [facility] 25 MG 10:54: (three) Medical tablet 28 times Center daily as needed for Dizziness. rosuvastati 2021-10 Yes 20mg QD Take [address] [facility] n (CRESTOR) 0-25 by mouth [facility] 20 MG 10:54: daily. Medical tablet 28 [place] doxepin 2021-10 Yes 10mg QD Take [address] [facility] (SINEquan) 0-25 by [facility] 10 MG 10:54: nightly. Medical capsule 28 [place] gabapentin 2021-10 Yes 100mg Q.[id number] Take [address] [facility] (NEURONTIN) 0-25 [id number] mg by [facility] 100 MG 10:54: 3D mouth 3 Medical capsule 28 (three) Center times daily. lipase/prot 2021-10 Yes Take by [facility] ease/amylas 0-25 [facility] (CREON 10:54: 6,000 TID Medi vidal ORAL) 28 . [place] metoclopram 2021-10 Yes 10mg Take [address] [facility] miracle HCl 0-25 by mouth 4 [facility] (REGLAN) 10 10:54: (four) Medi vidal MG tablet 28 times Center daily as needed for Nausea. b complex 2021-10 Yes 1{tbl} QD Take [address] [facility] vitamins 0-25 tablet by [facility] tablet 10:54: mouth Medical 28 daily. [place] docusate 2021-10 Yes 100mg Take [address] [facility] sodium 0-25 mg by [facility] (COLACE) 10:54: mouth 2 Medica l 100 MG 28 (two) Center capsule times daily as needed for Constipati on. traMADoL 2021-10 Yes 50mg Take [address] [facility] (ULTRAM) 50 0-25 by mouth [facility] mg tablet 10:54: every 6 Medic al 28 (six) Center hours as needed for Pain. promethazin 2021-10 Yes 25mg Take [address] [facility] e 0-25 by mouth [facility] (PHENERGAN) 10:54: every Medic al 25 MG 27 night as Center tablet needed for Nausea. gabapentin 2021-10- No 100mg Take 100 [facility] 100 mg 0-18 10-18 mg by ity of capsule 16:31: 00:00 mouth 3 [place] 25 :00 (three) Medical times Branch daily. gabapentin 2021-10- No 100mg Take 100 [facility] 100 mg 0-18 10-18 mg by ity of capsule 16:31: 00:00 mouth 3 [place] 25 :00 (three) Medical times Branch daily. docusate 2021-10 Yes [id number] 100mg Take 1 [facility] (COLACE) 0-18 capsule by ity o f 100 mg 00:00: mouth 2 [place] capsule 00 (two) Medical times Branch daily as needed for Constipati on. proMETHazin 2021-10 Yes [id number] 25mg Take 1 [facility] e 25 mg 0-18 tablet by ity of tablet 00:00: mouth at [place] 00 bedtime as Medical needed for Branch Nausea and Vomiting (N/V). B 2021-10 Yes [id number] 1{tbl} Take 1 [facility] Complex-Fol 0-18 tablet by ity of ic Acid (B 00:00: mouth [place] COMPLEX 1, 00 daily. Medical WITH FOLIC Branch ACID,) 0.4 mg Tab docusate 2021-10 Yes [id number] 100mg Take 1 [facility] (COLACE) 0-18 capsule by ity o f 100 mg 00:00: mouth 2 [place] capsule 00 (two) Medical times Branch daily as needed for Constipati on. proMETHazin 2021-10 Yes [id number] 25mg Take 1 [facility] e 25 mg 0-18 tablet by ity of tablet 00:00: mouth at [place] 00 bedtime as Medical needed for Branch Nausea and Vomiting (N/V). B 2021-10 Yes [id number] 1{tbl} Take 1 [facility] Complex-Fol 0-18 tablet by ity of ic Acid (B 00:00: mouth [place] COMPLEX 1, 00 daily. Medical WITH FOLIC Branch ACID,) 0.4 mg Tab carvediloL 2021-10 Yes [id number] 6.25mg Take 1 [facility] 6.25 mg 0-18 tablet by ity of tablet 00:00: mouth in [place] 00 the Medical morning Branch and 1 tablet in the evening. Take with meals. docusate 2021-10 Yes [id number] 100mg Take 1 [facility] (COLACE) 0-18 capsule by ity o f 100 mg 00:00: mouth 2 [place] capsule 00 (two) Medical times Branch daily as needed for Constipati on. gabapentin 2021-10 Yes [id number] 100mg Take 1 [facility] 100 mg 0-18 capsule by ity of capsule 00:00: mouth in [place] 00 the Medical morning Branch and 1 capsule at noon and 1 capsule in the evening. traMADoL 50 2021-10 Yes [id number] 50mg Take 1 [facility] mg tablet 0-18 tablet by ity o f 00:00: mouth [place] 00 every 6 Medical (six) Branch hours as needed for Pain (scale 7-10) (Cannot take NSAIDS). Indication s: chronic pain proMETHazin 2021-10 Yes [id number] 25mg Take 1 [facility] e 25 mg 0-18 tablet by ity of tablet 00:00: mouth at [place] 00 bedtime as Medical needed for Branch Nausea and Vomiting (N/V). B 2021-10 Yes [id number] 1{tbl} Take 1 [facility] Complex-Fol 0-18 tablet by ity of ic Acid (B 00:00: mouth [place] COMPLEX 1, 00 daily. Medical WITH FOLIC Branch ACID,) 0.4 mg Tab carvediloL 2021-10 Yes [id number] 6.25mg Take 1 [facility] 6.25 mg 0-18 tablet by ity of tablet 00:00: mouth in [place] 00 the Medical morning Branch and 1 tablet in the evening. Take with meals. docusate 2021-10 Yes [id number] 100mg Take 1 [facility] (COLACE) 0-18 capsule by ity o f 100 mg 00:00: mouth 2 [place] capsule 00 (two) Medical times Branch daily as needed for Constipati on. gabapentin 2021-10 Yes [id number] 100mg Take 1 [facility] 100 mg 0-18 capsule by ity of capsule 00:00: mouth in [place] 00 the Medical morning Branch and 1 capsule at noon and 1 capsule in the evening. traMADoL 50 2021-10 Yes [id number] 50mg Take 1 [facility] mg tablet 0-18 tablet by ity o f 00:00: mouth [place] 00 every 6 Medical (six) Branch hours as needed for Pain (scale 7-10) (Cannot take NSAIDS). Indication s: chronic pain proMETHazin 2021-10 Yes [id number] 25mg Take 1 [facility] e 25 mg 0-18 tablet by ity of tablet 00:00: mouth at [place] 00 bedtime as Medical needed for Branch Nausea and Vomiting (N/V). B 2021-10 Yes [id number] 1{tbl} Take 1 [facility] Complex-Fol 0-18 tablet by ity of ic Acid (B 00:00: mouth [place] COMPLEX 1, 00 daily. Medical WITH FOLIC Branch ACID,) 0.4 mg Tab carvediloL 2021-10 Yes [id number] 6.25mg Take 1 [facility] 6.25 mg 0-18 tablet by ity of tablet 00:00: mouth in [place] 00 the Medical morning Branch and 1 tablet in the evening. Take with meals. docusate 2021-10 Yes [id number] 100mg Take 1 [facility] (COLACE) 0-18 capsule by ity o f 100 mg 00:00: mouth 2 [place] capsule 00 (two) Medical times Branch daily as needed for Constipati on. gabapentin 2021-10 Yes [id number] 100mg Take 1 [facility] 100 mg 0-18 capsule by ity of capsule 00:00: mouth in [place] 00 the Medical morning Branch and 1 capsule at noon and 1 capsule in the evening. traMADoL 50 2021-10 Yes [id number] 50mg Take 1 [facility] mg tablet 0-18 tablet by ity o f 00:00: mouth [place] 00 every 6 Medical (six) Branch hours as needed for Pain (scale 7-10) (Cannot take NSAIDS). Indication s: chronic pain proMETHazin 2021-10 Yes [id number] 25mg Take 1 [facility] e 25 mg 0-18 tablet by ity of tablet 00:00: mouth at [place] 00 bedtime as Medical needed for Branch Nausea and Vomiting (N/V). B 2021-10 Yes [id number] 1{tbl} Take 1 [facility] Complex-Fol 0-18 tablet by ity of ic Acid (B 00:00: mouth [place] COMPLEX 1, 00 daily. Medical WITH FOLIC Branch ACID,) 0.4 mg Tab carvediloL 2021-10 Yes [id number] 6.25mg Take 1 [facility] 6.25 mg 0-18 tablet by ity of tablet 00:00: mouth in [place] 00 the Medical morning Branch and 1 tablet in the evening. Take with meals. docusate 2021-10 Yes [id number] 100mg Take 1 [facility] (COLACE) 0-18 capsule by ity o f 100 mg 00:00: mouth 2 [place] capsule 00 (two) Medical times Branch daily as needed for Constipati on. gabapentin 2021-10 Yes [id number] 100mg Take 1 [facility] 100 mg 0-18 capsule by ity of capsule 00:00: mouth in [place] 00 the Medical morning Branch and 1 capsule at noon and 1 capsule in the evening. traMADoL 50 2021-10 Yes [id number] 50mg Take 1 [facility] mg tablet 0-18 tablet by ity o f 00:00: mouth [place] 00 every 6 Medical (six) Branch hours as needed for Pain (scale 7-10) (Cannot take NSAIDS). Indication s: chronic pain proMETHazin 2021-10 Yes [id number] 25mg Take 1 [facility] e 25 mg 0-18 tablet by ity of tablet 00:00: mouth at [place] 00 bedtime as Medical needed for Branch Nausea and Vomiting (N/V). B 2021-10 Yes [id number] 1{tbl} Take 1 [facility] Complex-Fol 0-18 tablet by ity of ic Acid (B 00:00: mouth [place] COMPLEX 1, 00 daily. Medical WITH FOLIC Branch ACID,) 0.4 mg Tab carvediloL 2021-10 Yes [id number] 6.25mg Take 1 [facility] 6.25 mg 0-18 tablet by ity of tablet 00:00: mouth in [place] 00 the Medical morning Branch and 1 tablet in the evening. Take with meals. docusate 2021-10 Yes [id number] 100mg Take 1 [facility] (COLACE) 0-18 capsule by ity o f 100 mg 00:00: mouth 2 [place] capsule 00 (two) Medical times Branch daily as needed for Constipati on. gabapentin 2021-10 Yes [id number] 100mg Take 1 [facility] 100 mg 0-18 capsule by ity of capsule 00:00: mouth in [place] 00 the Medical morning Branch and 1 capsule at noon and 1 capsule in the evening. traMADoL 50 2021-10 Yes [id number] 50mg Take 1 [facility] mg tablet 0-18 tablet by ity o f 00:00: mouth [place] 00 every 6 Medical (six) Branch hours as needed for Pain (scale 7-10) (Cannot take NSAIDS). Indication s: chronic pain proMETHazin 2021-10 Yes [id number] 25mg Take 1 [facility] e 25 mg 0-18 tablet by ity of tablet 00:00: mouth at [place] 00 bedtime as Medical needed for Branch Nausea and Vomiting (N/V). B 2021-10 Yes [id number] 1{tbl} Take 1 [facility] Complex-Fol 0-18 tablet by ity of ic Acid (B 00:00: mouth [place] COMPLEX 1, 00 daily. Medical WITH FOLIC Branch ACID,) 0.4 mg Tab carvediloL 2021-10 Yes [id number] 6.25mg Take 1 [facility] 6.25 mg 0-18 tablet by ity of tablet 00:00: mouth in [place] 00 the Medical morning Branch and 1 tablet in the evening. Take with meals. docusate 2021-10 Yes [id number] 100mg Take 1 [facility] (COLACE) 0-18 capsule by ity o f 100 mg 00:00: mouth 2 [place] capsule 00 (two) Medical times Branch daily as needed for Constipati on. gabapentin 2021-10 Yes [id number] 100mg Take 1 [facility] 100 mg 0-18 capsule by ity of capsule 00:00: mouth in [place] 00 the Medical morning Branch and 1 capsule at noon and 1 capsule in the evening. traMADoL 50 2021-10 Yes [id number] 50mg Take 1 [facility] mg tablet 0-18 tablet by ity o f 00:00: mouth [place] 00 every 6 Medical (six) Branch hours as needed for Pain (scale 7-10) (Cannot take NSAIDS). Indication s: chronic pain proMETHazin 2021-10 Yes [id number] 25mg Take 1 [facility] e 25 mg 0-18 tablet by [facility]y of tablet 00:00: mouth at [place] 00 bedtime as Medical needed for Branch Nausea and Vomiting (N/V). B 2021-10 Yes [id number] 1{tbl} Take 1 [facility] Complex-Fol 0-18 tablet by ity of ic Acid (B 00:00: mouth [place] COMPLEX 1, 00 daily. Medical WITH FOLIC Branch ACID,) 0.4 mg Tab carvediloL 2021-10 Yes [id number] 6.25mg Take 1 [facility] 6.25 mg 0-18 tablet by ity of tablet 00:00: mouth in [place] 00 the Medical morning Branch and 1 tablet in the evening. Take with meals. docusate 2021-10 Yes [id number] 100mg Take 1 [facility] (COLACE) 0-18 capsule by ity o f 100 mg 00:00: mouth 2 [place] capsule 00 (two) Medical times Branch daily as needed for Constipati on. gabapentin 2021-10 Yes [id number] 100mg Take 1 [facility] 100 mg 0-18 capsule by ity of capsule 00:00: mouth in [place] 00 the Medical morning Branch and 1 capsule at noon and 1 capsule in the evening. traMADoL 50 2021-10 Yes [id number] 50mg Take 1 [facility] mg tablet 0-18 tablet by ity o f 00:00: mouth [place] 00 every 6 Medical (six) Branch hours as needed for Pain (scale 7-10) (Cannot take NSAIDS). Indication s: chronic pain proMETHazin 2021-10 Yes [id number] 25mg Take 1 [facility] e 25 mg 0-18 tablet by ity of tablet 00:00: mouth at [place] 00 bedtime as Medical needed for Branch Nausea and Vomiting (N/V). B 2021-10 Yes [id number] 1{tbl} Take 1 [facility] Complex-Fol 0-18 tablet by ity of ic Acid (B 00:00: mouth [place] COMPLEX 1, 00 daily. Medical WITH FOLIC Branch ACID,) 0.4 mg Tab carvediloL 2021-10 Yes [id number] 6.25mg Take 1 [facility] 6.25 mg 0-18 tablet by ity of tablet 00:00: mouth in [place] 00 the Medical morning Branch and 1 tablet in the evening. Take with meals. docusate 2021-10 Yes [id number] 100mg Take 1 [facility] (COLACE) 0-18 capsule by ity o f 100 mg 00:00: mouth 2 [place] capsule 00 (two) Medical times Branch daily as needed for Constipati on. gabapentin 2021-10 Yes [id number] 100mg Take 1 [facility] 100 mg 0-18 capsule by ity of capsule 00:00: mouth in [place] 00 the Medical morning Branch and 1 capsule at noon and 1 capsule in the evening. traMADoL 50 2021-10 Yes [id number] 50mg Take 1 [facility] mg tablet 0-18 tablet by ity o f 00:00: mouth [place] 00 every 6 Medical (six) Branch hours as needed for Pain (scale 7-10) (Cannot take NSAIDS). Indication s: chronic pain proMETHazin 2021-10 Yes [id number] 25mg Take 1 [facility] e 25 mg 0-18 tablet by ity of tablet 00:00: mouth at [place] 00 bedtime as Medical needed for Branch Nausea and Vomiting (N/V). B 2021-10 Yes [id number] 1{tbl} Take 1 [facility] Complex-Fol 0-18 tablet by ity of ic Acid (B 00:00: mouth [place] COMPLEX 1, 00 daily. Medical WITH FOLIC Branch ACID,) 0.4 mg Tab carvediloL 2021-10 Yes [id number] 6.25mg Take 1 [facility] 6.25 mg 0-18 tablet by ity of tablet 00:00: mouth in [place] 00 the Medical morning Branch and 1 tablet in the evening. Take with meals. docusate 2021-10 Yes [id number] 100mg Take 1 [facility] (COLACE) 0-18 capsule by ity o f 100 mg 00:00: mouth 2 [place] capsule 00 (two) Medical times Branch daily as needed for Constipati on. gabapentin 2021-10 Yes [id number] 100mg Take 1 [facility] 100 mg 0-18 capsule by [facility]y of capsule 00:00: mouth in [place] 00 the Medical morning Branch and 1 capsule at noon and 1 capsule in the evening. traMADoL 50 2021-10 Yes [id number] 50mg Take 1 [facility] mg tablet 0-18 tablet by ity o f 00:00: mouth [place] 00 every 6 Medical (six) Branch hours as needed for Pain (scale 7-10) (Cannot take NSAIDS). Indication s: chronic pain proMETHazin 2021-10 Yes [id number] 25mg Take 1 [facility] e 25 mg 0-18 tablet by ity of tablet 00:00: mouth at [place] 00 bedtime as Medical needed for Branch Nausea and Vomiting (N/V). B 2021-10 Yes [id number] 1{tbl} Take 1 [facility] Complex-Fol 0-18 tablet by [facility]y of ic Acid (B 00:00: mouth [place] COMPLEX 1, 00 daily. Medical WITH FOLIC Branch ACID,) 0.4 mg Tab docusate 2021-10 Yes [id number] 100mg Take 1 [facility] (COLACE) 0-18 capsule by ity o f 100 mg 00:00: mouth 2 [place] capsule 00 (two) Medical times Branch daily as needed for Constipati on. gabapentin 2021-10 Yes [id number] 100mg Take 1 [facility] 100 mg 0-18 capsule by [facility] of capsule 00:00: mouth in [place] 00 the Medical morning Branch and 1 capsule at noon and 1 capsule in the evening. proMETHazin 2021-10 Yes [id number] 25mg Take 1 [facility] e 25 mg 0-18 tablet by [facility]y of tablet 00:00: mouth at [place] 00 bedtime as Medical needed for Branch Nausea and Vomiting (N/V). B 2021-10 Yes [id number] 1{tbl} Take 1 [facility] Complex-Fol 0-18 tablet by ity of ic Acid (B 00:00: mouth [place] COMPLEX 1, 00 daily. Medical WITH FOLIC Branch ACID,) 0.4 mg Tab docusate 2021-10 Yes [id number] 100mg Take 1 [facility] (COLACE) 0-18 capsule by ity o f 100 mg 00:00: mouth 2 [place] capsule 00 (two) Medical times Branch daily as needed for Constipati on. gabapentin 2021-10 Yes [id number] 100mg Take 1 [facility] 100 mg 0-18 capsule by [facility] of capsule 00:00: mouth in [place] 00 the Medical morning Branch and 1 capsule at noon and 1 capsule in the evening. proMETHazin 2021-10 Yes [id number] 25mg Take 1 [facility] e 25 mg 0-18 tablet by [facility]y of tablet 00:00: mouth at [place] 00 bedtime as Medical needed for Branch Nausea and Vomiting (N/V). B 2021-10 Yes [id number] 1{tbl} Take 1 [facility] Complex-Fol 0-18 tablet by [facility]y of ic Acid (B 00:00: mouth [place] COMPLEX 1, 00 daily. Medical WITH FOLIC Branch ACID,) 0.4 mg Tab docusate 2021-10 Yes [id number] 100mg Take 1 [facility] (COLACE) 0-18 capsule by ity o f 100 mg 00:00: mouth 2 [place] capsule 00 (two) Medical times Branch daily as needed for Constipati on. gabapentin 2021-10 Yes [id number] 100mg Take 1 [facility] 100 mg 0-18 capsule by [facility] of capsule 00:00: mouth in [place] 00 the Medical morning Branch and 1 capsule at noon and 1 capsule in the evening. proMETHazin 2021-10 Yes [id number] 25mg Take 1 [facility] e 25 mg 0-18 tablet by ity of tablet 00:00: mouth at [place] 00 bedtime as Medical needed for Branch Nausea and Vomiting (N/V). B 2021-10 Yes [id number] 1{tbl} Take 1 [facility]-Fol 0-18 tablet by ity of ic Acid (B 00:00: mouth [place] COMPLEX 1, 00 daily. Medical WITH FOLIC Branch ACID,) 0.4 mg Tab docusate 2021-10 Yes [id number] 100mg Take 1 [facility] (COLACE) 0-18 capsule by ity o f 100 mg 00:00: mouth 2 [place] capsule 00 (two) Medical times Branch daily as needed for Constipati on. gabapentin 2021-10 Yes [id number] 100mg Take 1 [facility] 100 mg 0-18 capsule by ity of capsule 00:00: mouth in [place] 00 the Medical morning Branch and 1 capsule at noon and 1 capsule in the evening. proMETHazin 2021-10 Yes [id number] 25mg Take 1 [facility] 25 mg 0-18 tablet by ity of tablet 00:00: mouth at [place] 00 bedtime as Medical needed for Branch Nausea and Vomiting (N/V). B 2021-10 Yes [id number] 1{tbl} Take 1 [facility] Complex-Fol 0-18 tablet by ity of ic Acid (B 00:00: mouth [place] COMPLEX 1, 00 daily. Medical WITH FOLIC Branch ACID,) 0.4 mg Tab docusate 2021-10 Yes [id number] 100mg Take 1 [facility] (COLACE) 0-18 capsule by ity o f 100 mg 00:00: mouth 2 [place] capsule 00 (two) Medical times Branch daily as needed for Constipati on. gabapentin 2021-10 Yes [id number] 100mg Take 1 [facility] 100 mg 0-18 capsule by ity of capsule 00:00: mouth in [place] 00 the Medical morning Branch and 1 capsule at noon and 1 capsule in the evening. proMETHazin 2021-10 Yes [id number] 25mg Take 1 [facility] e 25 mg 0-18 tablet by ity of tablet 00:00: mouth at [place] 00 bedtime as Medical needed for Branch Nausea and Vomiting (N/V). B 2021-10 Yes [id number] 1{tbl} Take 1 [facility] Complex-Fol 0-18 tablet by ity of ic Acid (B 00:00: mouth [place] COMPLEX 1, 00 daily. Medical WITH FOLIC Branch ACID,) 0.4 mg Tab docusate 2021-10 Yes [id number] 100mg Take 1 [facility] (COLACE) 0-18 capsule by ity o f 100 mg 00:00: mouth 2 [place] capsule 00 (two) Medical times Branch daily as needed for Constipati on. gabapentin 2021-10 Yes [id number] 100mg Take 1 [facility] 100 mg 0-18 capsule by ity of capsule 00:00: mouth in [place] 00 the Medical morning Branch and 1 capsule at noon and 1 capsule in the evening. proMETHazin 2021-10 Yes [id number] 25mg Take 1 [facility] e 25 mg 0-18 tablet by ity of tablet 00:00: mouth at [place] 00 bedtime as Medical needed for Branch Nausea and Vomiting (N/V). B 2021-10 Yes [id number] 1{tbl} Take 1 [facility] Complex-Fol 0-18 tablet by ity of ic Acid (B 00:00: mouth [place] COMPLEX 1, 00 daily. Medical WITH FOLIC Branch ACID,) 0.4 mg Tab docusate 2021-10 Yes [id number] 100mg Take 1 [facility] (COLACE) 0-18 capsule by ity o f 100 mg 00:00: mouth 2 [place] capsule 00 (two) Medical times Branch daily as needed for Constipati on. gabapentin 2021-10 Yes [id number] 100mg Take 1 [facility] 100 mg 0-18 capsule by ity of capsule 00:00: mouth in [place] 00 the Medical morning Branch and 1 capsule at noon and 1 capsule in the evening. proMETHazin 2021-10 Yes [id number] 25mg Take 1 [facility] e 25 mg 0-18 tablet by ity of tablet 00:00: mouth at [place] 00 bedtime as Medical needed for Branch Nausea and Vomiting (N/V). B 2021-10 Yes [id number] 1{tbl} Take 1 [facility] Complex-Fol 0-18 tablet by ity of ic Acid (B 00:00: mouth [place] COMPLEX 1, 00 daily. Medical WITH FOLIC Branch ACID,) 0.4 mg Tab docusate 2021-10 Yes [id number] 100mg Take 1 [facility] (COLACE) 0-18 capsule by ity o f 100 mg 00:00: mouth 2 [place] capsule 00 (two) Medical times Branch daily as needed for Constipati on. gabapentin 2021-10 Yes [id number] 100mg Take 1 [facility] 100 mg 0-18 capsule by ity of capsule 00:00: mouth in [place] 00 the Medical morning Branch and 1 capsule at noon and 1 capsule in the evening. proMETHazin 2021-10 Yes [id number] 25mg Take 1 [facility] e 25 mg 0-18 tablet by ity of tablet 00:00: mouth at [place] 00 bedtime as Medical needed for Branch Nausea and Vomiting (N/V). B 2021-10 Yes [id number] 1{tbl} Take 1 [facility] Complex-Fol 0-18 tablet by ity of ic Acid (B 00:00: mouth [place] COMPLEX 1, 00 daily. Medical WITH FOLIC Branch ACID,) 0.4 mg Tab docusate 2021-10 Yes [id number] 100mg Take 1 [facility] (COLACE) 0-18 capsule by ity o f 100 mg 00:00: mouth 2 [place] capsule 00 (two) Medical times Branch daily as needed for Constipati on. proMETHazin 2021-10 Yes [id number] 25mg Take 1 [facility] e 25 mg 0-18 tablet by ity of tablet 00:00: mouth at [place] 00 bedtime as Medical needed for Branch Nausea and Vomiting (N/V). 2021-10 Yes [id number] 1{tbl} Take 1 [facility] Complex-Fol 0-18 tablet by ity of ic Acid (B 00:00: mouth [place] COMPLEX 1, 00 daily. Medical WITH FOLIC Branch ACID,) 0.4 mg Tab docusate 2021-10 Yes [id number] 100mg Take 1 [facility] (COLACE) 0-18 capsule by ity o f 100 mg 00:00: mouth 2 [place] capsule 00 (two) Medical times Branch daily as needed for Constipati on. proMETHazin 2021-10 Yes [id number] 25mg Take 1 [facility] 25 mg 0-18 tablet by ity of tablet 00:00: mouth at [place] 00 bedtime as Medical needed for Branch Nausea and Vomiting (N/V). B 2021-10 Yes [id number] 1{tbl} Take 1 [facility] Complex-Fol 0-18 tablet by ity of ic Acid (B 00:00: mouth [place] COMPLEX 1, 00 daily. Medical WITH FOLIC Branch ACID,) 0.4 mg Tab docusate 2021-10 Yes [id number] 100mg Take 1 [facility] (COLACE) 0-18 capsule by ity o f 100 mg 00:00: mouth 2 [place] capsule 00 (two) Medical times Branch daily as needed for Constipati on. proMETHazin 2021-10 Yes [id number] 25mg Take 1 [facility] e 25 mg 0-18 tablet by ity of tablet 00:00: mouth at [place] 00 bedtime as Medical needed for Branch Nausea and Vomiting (N/V). B 2021-10 Yes [id number] 1{tbl} Take 1 [facility] Complex-Fol 0-18 tablet by ity of ic Acid (B 00:00: mouth [place] COMPLEX 1, 00 daily. Medical WITH FOLIC Branch ACID,) 0.4 mg Tab docusate 2021-10 Yes [id number] 100mg Take 1 [facility] (COLACE) 0-18 capsule by ity o f 100 mg 00:00: mouth 2 [place] capsule 00 (two) Medical times Branch daily as needed for Constipati on. proMETHazin 2021-10 Yes [id number] 25mg Take 1 [facility] 25 mg 0-18 tablet by ity of tablet 00:00: mouth at [place] 00 bedtime as Medical needed for Branch Nausea and Vomiting (N/V). B 2021-10 Yes [id number] 1{tbl} Take 1 [facility] Complex-Fol 0-18 tablet by ity of ic Acid (B 00:00: mouth [place] COMPLEX 1, 00 daily. Medical WITH FOLIC Branch ACID,) 0.4 mg Tab docusate 2021-10 Yes [id number] 100mg Take 1 [facility] (COLACE) 0-18 capsule by ity o f 100 mg 00:00: mouth 2 [place] capsule 00 (two) Medical times Branch daily as needed for Constipati on. proMETHazin 2021-10 Yes [id number] 25mg Take 1 [facility] e 25 mg 0-18 tablet by ity of tablet 00:00: mouth at [place] 00 bedtime as Medical needed for Branch Nausea and Vomiting (N/V). B 2021-10 Yes [id number] 1{tbl} Take 1 [facility] Complex-Fol 0-18 tablet by ity of ic Acid (B 00:00: mouth [place] COMPLEX 1, 00 daily. Medical WITH FOLIC Branch ACID,) 0.4 mg Tab gabapentin 2021-10- No [id number] 100mg Take 1 [facility] 100 mg 0-18 11-28 capsule by ity of capsule 00:00: 00:00 mouth in [place] 00 :00 the Medical morning Branch and 1 capsule at noon and 1 capsule in the evening. gabapentin 2021-10- No [id number] 100mg Take 1 [facility] 100 mg 0-18 11-28 capsule by ity of capsule 00:00: 00:00 mouth in [place] 00 :00 the Medical morning Branch and 1 capsule at noon and 1 capsule in the evening. gabapentin 2021-10- No [id number] 100mg Take 1 [facility] 100 mg 0-18 11-28 capsule by ity of capsule 00:00: 00:00 mouth in [place] 00 :00 the Medical morning Branch and 1 capsule at noon and 1 capsule in the evening. carvediloL 2021-10- No [id number] 6.25mg Take 1 [facility] 6.25 mg 0-18 11-18 tablet by ity of tablet 00:00: 00:00 mouth in [place] 00 :00 the [facility] morning Branch and 1 tablet in the evening. Take with meals. traMADoL 50 2021-10- No [id number] 50mg Take 1 [facility] vers mg tablet 0-18 11-18 tablet by ity of 00:00: 00:00 mouth [place] 00 :00 every 6 Medical ([facility]) Branch hours as needed for Pain (scale 7-10) (Cannot take NSAIDS). Indication s: chronic pain carvediloL 2021-10- No [id number] 6.25mg Take 1 [facility] 6.25 mg 0-18 11-18 tablet by ity of tablet 00:00: 00:00 mouth in [place] 00 :00 the [facility] morning Branch and 1 tablet in the evening. Take with meals. traMADoL 50 2021-10- No [id number] 50mg Take 1 [facility] vers mg tablet 0-18 11-18 tablet by ity of 00:00: 00:00 mouth [place] 00 :00 every 6 Medical (six) Branch hours as needed for Pain (scale 7-10) (Cannot take NSAIDS). Indication s: chronic pain carvediloL 2021-10- No [id number] 6.25mg Take 1 [facility] 6.25 mg 0-18 11-18 tablet by ity of tablet 00:00: 00:00 mouth in [place] 00 :00 the [facility] morning Branch and 1 tablet in the evening. Take with meals. traMADoL 50 2021-10- No [id number] 50mg Take 1 [facility] vers mg tablet 0-18 11-18 tablet by ity of 00:00: 00:00 mouth [place] 00 :00 every 6 Medical (six) Branch hours as needed for Pain (scale 7-10) (Cannot take NSAIDS). Indication s: chronic pain carvediloL 2021-10- No [id number] 6.25mg Take 1 [facility] 6.25 mg 0-18 11-18 tablet by ity of tablet 00:00: 00:00 mouth in [place] 00 :00 the Medical morning Branch and 1 tablet in the evening. Take with meals. traMADoL 50 2021-10- No [id number] 50mg Take 1 [facility] vers mg tablet 0-18 11-18 tablet by ity of 00:00: 00:00 mouth [place] 00 :00 every 6 Medical (six) Branch hours as needed for Pain (scale 7-10) (Cannot take NSAIDS). Indication s: chronic pain carvediloL 2021-10 No [id number] 6.25mg Take 1 [facility] 6.25 mg 0-18 11-18 tablet by ity of tablet 00:00: 00:00 mouth in [place] 00 :00 the Medical morning Branch and 1 tablet in the evening. Take with meals. traMADoL 50 2021-10- No [id number] 50mg Take 1 [facility] vers mg tablet 0-18 11-18 tablet by ity of 00:00: 00:00 mouth [place] 00 :00 every 6 Medical (six) Branch hours as needed for Pain (scale 7-10) (Cannot take NSAIDS). Indication s: chronic pain milk 2021- No 150mg QD Take [address] [facility] thistle 175 9-28 09-28 mg by [facility] tablet 14:40: 00:00 mouth Medica l 16 :00 daily . [place] milk 2021- No 150mg QD Take [address] [facility] thistle 175 9-28 09-28 mg by [facility] tablet 14:40: 00:00 mouth Medica l 16 :00 daily . [place] telmisartan 2021- No 1{tbl} QD Take [address] -hydrochlor 9-27 09-27 tablet by Dayana kefaviola othiazide 15:36: 00:00 mouth Medica l (MICARDIS 29 :00 daily. [place] HCT) 80-25 mg per tablet telmisartan 2021- No 1{tbl} QD Take [address] -hydrochlor 9-27 09-27 tablet by Dayana kes othiazide 15:36: 00:00 mouth Medica l (MICARDIS 29 :00 daily. Center HCT) 80-25 mg per tablet haloperidoL 0 2022- No .5mg Q.5D Take 0.[address] (HALDOL) 07-17 09-27 [facility] 0.5 MG 15:06: 00:00 mouth 2 Medical tablet 28 :00 (two) Center times daily. haloperidoL 0 2021- No .5mg Q.5D Take 0.[address] (HALDOL) 07-17 09-27 mg by [facility] 0.5 MG 15:06: 00:00 [...] Medical capsule 02 Center gabapentin Yes 100mg Q.[id number] Take [address] [facility] (NEURONTIN) 07-17 [id number] mg by L ukes 100 MG 14:28: 3D mouth 3 Medical capsule 02 (three) Center times daily. lipase/prot Yes Take by [facility] ease/amylas 07-17 mouth [facility] (CREON 14:28: 6,000 TID Medi vidal ORAL) 02 . Center hydrOXYzine 2022-0 Yes 25mg Take [address] [facility] (ATARAX) 25 9-27 tablet (25 Dayana kes MG tablet 00:00: mg total) Med ical 00 by mouth Center as needed. ferrous 2022-0 Yes 325mg Take [address] [facility] sulfate 325 9-27 tablet [facility] (65 FE) MG 00:00: (325 mg Medi vidal EC tablet 00 total) by Cente r mouth every other day. lactulose 2022-0 Yes Hepatic 20g Q.[id number] Take [address] [facility] (CHRONULAC) 9-27 encephalopa [id number] mLs (20 g [facility] 10 gram/15 00:00: thy 3D total) by Me dical mL solution 00 mouth 3 Cente r (three) times daily. hydrOXYzine 2021-0 Yes 25mg Take [address] [facility] (ATARAX) 25 9-27 tablet (25 Dayana kes MG tablet 00:00: mg total) Med ical 00 by mouth Center as needed. ferrous 202-0 Yes 325mg Take [address] [facility] sulfate 325 9-27 tablet [facility] (65 FE) MG 00:00: (325 mg Medi vidal EC tablet 00 total) by Cente r mouth every other day. lactulose 2021-0 Yes Hepatic 20g Q.[id number] Take [address] [facility] (CHRONULAC) 9-27 encephalopa [id number] mLs (20 g [facility] 10 gram/15 00:00: thy 3D total) by Me dical mL solution 00 mouth 3 Cente r (three) times daily. telmisartan 0 Yes [id number] 1{tbl} Take 1 [facility] -hydrochlor 9-26 tablet by ity of othiazide 00:00: [place] 80-25 mg 00 the Medical per tablet morning. [facility] h telmisartan 2021-0 Yes [id number] 1{tbl} Take 1 [facility] -hydrochlor 9-26 tablet by ity of othiazide 00:00: [place] 80-25 mg 00 the Medical per tablet morning. [facility] h telmisartan 2021-0 Yes [id number] 1{tbl} Take 1 [facility] -hydrochlor 9-26 tablet by ity of othiazide 00:00: [place] 80-25 mg 00 the Medical per tablet morning. [facility] telmisartan Yes [id number] 1{tbl} Take 1 [facility] -hydrochlor 9-26 tablet by ity of othiazide 00:00: mouth [place] 80-25 mg 00 the Medical per tablet morning. [facility] telmisartan Yes [id number] 1{tbl} Take 1 [facility] -hydrochlor 9-26 tablet by ity of othiazide 00:00: [place] 80-25 mg 00 the Medical per tablet morning. [facility] telmisartan Yes [id number] 1{tbl} Take 1 [facility] -hydrochlor 9-26 tablet by ity of othiazide 00:00: [place] 80-25 mg 00 the Medical per tablet morning. [facility] telmisartan 2021- No [id number] 1{tbl} Take 1 [facility] -hydrochlor 9-26 10-18 tablet by it y of othiazide 00:00: 00:00 mouth in [place] 80-25 mg 00 :00 the Medical per tablet morning. [facility] telmisartan 2021- No [id number] 1{tbl} Take 1 [facility] -hydrochlor 9-26 10-18 tablet by it y of othiazide 00:00: 00:00 mouth in [place] 80-25 mg 00 :00 the Medical per tablet morning. [facility] thiamine 2022- Yes 100mg QD Take 1 [facility] 07-03- tablet [facility] tablet 00:00: 23:59 (100 mg Medical 00 :00 total) by Center mouth daily. thiamine 2022- Yes 100mg QD Take 1 [facility] MG -13 -13 tablet [facility] tablet 00:00: 23:59 (100 mg Medical 00 :00 total) by Center mouth daily. thiamine 2022- Yes 100mg QD Take 1 [facility] MG 9-13 -13 tablet [facility] tablet 00:00: 23:59 (100 mg Medical 00 :00 total) by Center mouth daily. multivitami 2021- No 1{tbl} QD Take [address] [facility] (FOLTX, 07-03-13 tablet by Ashleigh es FOLBIC) 00:00: 23:59 mouth Medical 2-1. 00 :00 daily for Cente r mg Tab 30 days. tablet multivitami 2021- Yes 1{tbl} QD Take [address] [facility] (FOLTX, 9- 10-13 [facility] 00:00: 23:59 mouth Medical 2-1. 00 :00 daily for Cente r mg Tab 30 days. tablet multivitami 2021- Yes 1{tbl} QD Take [address] [facility] (FOLTX, 9 10- tablet by [facility]) 00:00: 23:59 mouth Medical 2-1. 00 :00 daily for Cente r mg [...] Take [address] [facility] (CRESTOR) 9-12 by mouth Luke [facility] 20 MG 13:14: daily. Medical tablet 24 Center doxepin Yes 10mg QD Take [address] [facility] (SINEquan) 9-12 by mouth [facility] 10 MG 13:14: nightly. Medical capsule 24 Center telmisartan Yes 1{tbl} QD Take [address] -hydrochlor 9-12 tablet by Ashleigh es othiazide 13:14: mouth Medical (MICARDIS 24 daily. Center HCT) 80-25 mg per tablet gabapentin Yes 100mg Q.[id number] Take [address] [facility] (NEURONTIN) 9-12 [id number] mg by L ukes 100 MG 13:14: 3D mouth 3 Medical capsule 24 (three) Center times daily. lipase/prot Yes Take by [facility] ease/amylas 9-12 mouth [facility] (CREON 13:14: 6,000 TID Medi vidal ORAL) 24 . Center haloperidoL Yes .5mg Q.5D Take 0.[address] (HALDOL) 9-12 mg by [facility] 0.5 MG 13:14: mouth 2 Medical tablet 24 (two) Center times daily. carvediloL 2022- No 6.25mg Q.5D Take [address] (COREG) 07-02 tablet [facility] 6.25 MG 00:00: 23:59 (6.25 mg Medic al tablet 00 :00 total) by Center mouth 2 (two) times daily. carvediloL 2022- No 6.25mg Q.5D Take [address] (COREG) 07-02 tablet [facility] 6.25 MG 00:00: 23:59 (6.25 mg Medic al tablet 00 :00 total) by Center mouth 2 (two) times daily. carvediloL 2022- No 6.25mg Q.5D Take [address] (COREG) 07-02 tablet [facility] 6.25 MG 00:00: 23:59 (6.25 mg Medic al tablet 00 :00 total) by Center mouth 2 (two) times daily. pantoprazol 2021- No 40mg Q.5D Take [address] [facility] e 07-02 tablet (40 [facility] (PROTONIX) 00:00: 23:59 mg total) M edical 40 MG 00 :00 by mouth 2 Center tablet (two) times daily for 90 days. pantoprazol 2021- No 40mg Q.5D Take [address] [facility] e 07-02 tablet (40 [facility] (PROTONIX) 00:00: 00:00 mg total) M edical 40 MG 00 :00 by mouth 2 Center tablet (two) times daily for 90 days. pantoprazol 2021-0 2021- No 40mg Q.5D Take [address] [facility] e 07-02 tablet (40 [facility] (PROTONIX) 00:00: 00:00 mg total) M edical 40 MG 00 :00 by mouth 2 Center tablet (two) times daily for 90 days. HYDROcodone 2021-2021- No 1{tbl} Take [address] -acetaminop 9-12 09-22 tablet by Dayana woodson (NORCO 00:00: 23:59 mouth Medic al 5-325) 00 :00 every 6 Center 5-325 mg (six) per tablet hours as needed for Pain for up to 10 days. Max Daily Amount: 4 tablets HYDROcodone 2021- No 1{tbl} Take [address] -acetaminop 9-09 28-22 tablet by Dayana woodson (NORCO 00:00: 23:59 mouth Medic al 5-325) 00 :00 every 6 Center 5-325 mg (six) per tablet hours as needed for Pain for up to 10 days. Max Daily Amount: 4 tablets HYDROcodone 2021- No 1{tbl} Take [address] -acetaminop 9-09 28-22 tablet by Dayana woodson (NORCO 00:00: 23:59 mouth Medic al 5-325) 00 :00 every 6 Center 5-325 mg (six) per tablet hours as needed for Pain for up to 10 days. Max Daily Amount: 4 tablets insulin Yes [id number] 54U inject 54 U nivers lispro, 8-22 Units ity of human, 00:00: under the [place] (HUMALOG 00 skin in Medical U-100 the Branch INSULIN) morning. 100 unit/mL injection telmisartan Yes [id number] 1{tbl} Take 1 [facility] -hydrochlor 8-22 tablet by ity of othiazide 00:00: [place] 80-25 mg 00 the Medical per tablet morning. [facility] h insulin Yes [id number] 54U inject 54 U nivers lispro, 8-22 Units ity of human, 00:00: under the [place] (HUMALOG 00 skin in Medical U-100 the Branch INSULIN) morning. 100 unit/mL injection telmisartan Yes [id number] 1{tbl} Take 1 [facility] -hydrochlor 8-22 tablet by ity of othiazide 00:00: mouth [place] 80-25 mg 00 the Medical per tablet morning. [facility] h insulin Yes [id number] 54U inject 54 U nivers lispro, 8-22 Units ity of human, 00:00: under the [place] (HUMALOG 00 skin in Medical U-100 the Branch INSULIN) morning. 100 unit/mL injection insulin 2021-0 Yes [id number] 54U inject 54 U nivers lispro, 8-22 Units ity of human, 00:00: under the [place] (HUMALOG 00 skin in Medical U-100 the Branch INSULIN) morning. 100 unit/mL injection insulin 2021-0 Yes [id number] 54U inject 54 U nivers lispro, 8-22 Units ity of human, 00:00: under the [place] (HUMALOG 00 skin in Medical U-100 the Branch INSULIN) morning. 100 unit/mL injection insulin 2021-0 Yes [id number] 54U inject 54 U nivers lispro, 8-22 Units ity of human, 00:00: under the [place] (HUMALOG 00 skin in Medical U-100 the Branch INSULIN) morning. 100 unit/mL injection insulin 2021-0 Yes [id number] 54U inject 54 U nivers lispro, 8-22 Units ity of human, 00:00: under the [place] (HUMALOG 00 skin in Medical U-100 the Branch INSULIN) morning. 100 unit/mL injection insulin 2021-0 Yes [id number] 54U inject 54 U nivers lispro, 8-22 Units ity of human, 00:00: under the [place] (HUMALOG 00 skin in Medical U-100 the Branch INSULIN) morning. 100 unit/mL injection insulin 2021-0 Yes [id number] 54U inject 54 U nivers lispro, 8-22 Units ity of human, 00:00: under the [place] (HUMALOG 00 skin in Medical U-100 the Branch INSULIN) morning. 100 unit/mL injection insulin 2021-0 Yes [id number] 54U inject 54 U nivers lispro, 8-22 Units ity of human, 00:00: under the [place] (HUMALOG 00 skin in Medical U-100 the Branch INSULIN) morning. 100 unit/mL injection insulin 2021-0 Yes [id number] 54U inject 54 U nivers lispro, 8-22 Units ity of human, 00:00: under the [place] (HUMALOG 00 skin in Medical U-100 the Branch INSULIN) morning. 100 unit/mL injection insulin 2021-0 Yes [id number] 54U inject 54 U nivers lispro, 8-22 Units ity of human, 00:00: under the [place] (HUMALOG 00 skin in Medical U-100 the Branch INSULIN) morning. 100 unit/mL injection insulin 2021-0 Yes [id number] 54U inject 54 U nivers lispro, 8-22 Units ity of human, 00:00: under the [place] (HUMALOG 00 skin in Medical U-100 the Branch INSULIN) morning. 100 unit/mL injection insulin 2021-0 Yes [id number] 54U inject 54 U nivers lispro, 8-22 Units ity of human, 00:00: under the [place] (HUMALOG 00 skin in Medical U-100 the Branch INSULIN) morning. 100 unit/mL injection insulin 2021-0 Yes [id number] 54U inject 54 U nivers lispro, 8-22 Units ity of human, 00:00: under the [place] (HUMALOG 00 skin in Medical U-100 the Branch INSULIN) morning. 100 unit/mL injection insulin 2021-0 Yes [id number] 54U inject 54 U nivers lispro, 8-22 Units ity of human, 00:00: under the [place] (HUMALOG 00 skin in Medical U-100 the Branch INSULIN) morning. 100 unit/mL injection insulin 2021-0 Yes [id number] 54U inject 54 U nivers lispro, 8-22 Units ity of human, 00:00: under the [place] (HUMALOG 00 skin in Medical U-100 the Branch INSULIN) morning. 100 unit/mL injection insulin 2021-0 Yes [id number] 54U inject 54 U nivers lispro, 8-22 Units ity of human, 00:00: under the [place] (HUMALOG 00 skin in Medical U-100 the Branch INSULIN) morning. 100 unit/mL injection insulin 2021-0 Yes [id number] 54U inject 54 U nivers lispro, 8-22 Units ity of human, 00:00: under the [place] (HUMALOG 00 skin in Medical U-100 the Branch INSULIN) morning. 100 unit/mL injection insulin 2021-0 Yes [id number] 54U inject 54 U nivers lispro, 8-22 Units ity of human, 00:00: under the [place] (HUMALOG 00 skin in Medical U-100 the Branch INSULIN) morning. 100 unit/mL injection insulin 2021-0 Yes [id number] 54U inject 54 U nivers lispro, 8-22 Units ity of human, 00:00: under the [place] (HUMALOG 00 skin in Medical U-100 the Branch INSULIN) morning. 100 unit/mL injection insulin 2021-0 Yes [id number] 54U inject 54 U nivers lispro, 8-22 Units ity of human, 00:00: under the [place] (HUMALOG 00 skin in Medical U-100 the Branch INSULIN) morning. 100 unit/mL injection insulin 2021-0 Yes [id number] 54U inject 54 U nivers lispro, 8-22 Units ity of human, 00:00: under the [place] (HUMALOG 00 skin in Medical U-100 the Branch INSULIN) morning. 100 unit/mL injection insulin 2021-0 Yes [id number] 54U inject 54 U nivers lispro, 8-22 Units ity of human, 00:00: under the [place] (HUMALOG 00 skin in Medical U-100 the Branch INSULIN) morning. 100 unit/mL injection insulin 2021-0 Yes [id number] 54U inject 54 U nivers lispro, 8-22 Units ity of human, 00:00: under the [place] (HUMALOG 00 skin in Medical U-100 the Branch INSULIN) morning. 100 unit/mL injection insulin 2021-0 Yes [id number] 54U inject 54 U nivers lispro, 8-22 Units ity of human, 00:00: under the [place] (HUMALOG 00 skin in Medical U-100 the Branch INSULIN) morning. 100 unit/mL injection insulin 2021-0 Yes [id number] 54U inject 54 U nivers lispro, 8-22 Units ity of human, 00:00: under the [place] (HUMALOG 00 skin in Medical U-100 the Branch INSULIN) morning. 100 unit/mL injection insulin 2021-0 Yes [id number] 54U inject 54 U nivers lispro, 8-22 Units ity of human, 00:00: under the [place] (HUMALOG 00 skin in Medical U-100 the Branch INSULIN) morning. 100 unit/mL injection insulin 2021-0 Yes [id number] 54U inject 54 U nivers lispro, 8-22 Units ity of human, 00:00: under the [place] (HUMALOG 00 skin in Medical U-100 the Branch INSULIN) morning. 100 unit/mL injection insulin 2021-0 Yes [id number] 54U inject 54 U nivers lispro, 8-22 Units ity of human, 00:00: under the [place] (HUMALOG 00 skin in Medical U-100 the Branch INSULIN) morning. 100 unit/mL injection insulin 0 Yes [id number] 54U inject 54 U nivers lispro, 8-22 Units ity of human, 00:00: under the [place] (HUMALOG 00 skin in Medical U-100 the Branch INSULIN) morning. 100 unit/mL injection insulin 2021-0 Yes [id number] 54U inject 54 U nivers lispro, 8-22 Units ity of human, 00:00: under the [place] (HUMALOG 00 skin in Medical U-100 the Branch INSULIN) morning. 100 unit/mL injection insulin 2021-0 Yes [id number] 54U inject 54 U nivers lispro, 8-22 Units ity of human, 00:00: under the [place] (HUMALOG 00 skin in Medical U-100 the Branch INSULIN) morning. 100 unit/mL injection telmisartan 2021- No [id number] 1{tbl} Take 1 [facility] -hydrochlor 06-11 tablet by it y of othiazide 00:00: 00:00 mouth in [place] 80-25 mg 00 :00 the Medical per tablet morning. Branc h insulin 2021- No [id number] 54U inject 54 [facility] lispro, 06-11 08-22 Units ity of human, 00:00: 00:00 under the [place] (HUMALOG 00 :00 skin in Medical U-100 the Branch INSULIN) morning. 100 unit/mL injection insulin 2021- No [id number] inject 54 [facility] lispro, 7- 08-01 Units ity of human, 00:00: 00:00 under the [place] (HUMALOG 00 :00 skin in Medical U-100 the Branch INSULIN) morning 100 unit/mL and 54 injection Units at noon and 54 Units in the evening. inject with meals. Blood-Gluco 0 Yes [id number] Use as Univers se Sensor 7-26 directed ity of (DEXCOM G6 00:00: [place] SENSOR) 00 [facility] Blood-Gluco 2021-0 Yes [id number] Use as Univers se Sensor 7-26 directed ity of (DEXCOM G6 00:00: [place] SENSOR) 00 [facility] Blood-Gluco 0 Yes [id number] Use as Univers se Sensor 7-26 directed ity of (DEXCOM G6 00:00: [place] SENSOR) 00 [facility] [place] [facility] Blood-Gluco 2021-0 Yes [id number] Use as Univers se Sensor 7-26 directed ity of (DEXCOM G6 00:00: [place] SENSOR) 00 [facility] [place] [facility] Blood-Gluco 2021-0 Yes [id number] Use as Univers se Sensor 7-26 directed ity of (DEXCOM G6 00:00: [place] SENSOR) 00 [facility] [place] [facility] Blood-Gluco 2021-0 Yes [id number] Use as Univers se Sensor 7-26 directed ity of (DEXCOM G6 00:00: [place] SENSOR) 00 [facility] [place] [facility] Blood-Gluco 2021-0 Yes [id number] Use as Univers se Sensor 7-26 directed ity of (DEXCOM G6 00:00: [place] SENSOR) 00 [facility] [place] [facility] Blood-Gluco 2021-0 Yes [id number] Use as Univers se Sensor 7-26 directed ity of (DEXCOM G6 00:00: [place] SENSOR) 00 [facility] [place] [facility] Blood-Gluco 2021-0 Yes [id number] Use as Univers se Sensor 7-26 directed ity of (DEXCOM G6 00:00: [place] SENSOR) 00 [facility] [place] [facility] Blood-Gluco 2021-0 Yes [id number] Use as Univers se Sensor 7-26 directed ity of (DEXCOM G6 00:00: [place] SENSOR) 00 [facility] [place] [facility] Blood-Gluco 2021-0 Yes [id number] Use as Univers se Sensor 7-26 directed ity of (DEXCOM G6 00:00: [place] SENSOR) 00 [facility] [place] [facility] Blood-Gluco 2021-0 Yes [id number] Use as Univers se Sensor 7-26 directed ity of (DEXCOM G6 00:00: [place] SENSOR) 00 [facility] [place] [facility] Blood-Gluco 2021-0 Yes [id number] Use as Univers se Sensor 7-26 directed ity of (DEXCOM G6 00:00: [place] SENSOR) 00 [facility] [place] [facility] Blood-Gluco 2021-0 Yes [id number] Use as Univers se Sensor 7-26 directed ity of (DEXCOM G6 00:00: [place] SENSOR) 00 [facility] [place] [facility] Blood-Gluco 2021-0 Yes [id number] Use as Univers se Sensor 7-26 directed ity of (DEXCOM G6 00:00: [place] SENSOR) 00 [facility] [place] [facility] Blood-Gluco 2022-0 Yes [id number] Use as Univers se Sensor 7-26 directed ity of (DEXCOM G6 00:00: [place] SENSOR) 00 [facility] [place] [facility] Blood-Gluco 2021-0 Yes [id number] Use as Univers se Sensor 7-26 directed ity of (DEXCOM G6 00:00: [place] SENSOR) 00 [facility] [place] [facility] Blood-Gluco 2021-0 Yes [id number] Use as Univers se Sensor 7-26 directed ity of (DEXCOM G6 00:00: [place] SENSOR) 00 [facility] [place] [facility] Blood-Gluco 2021-0 Yes [id number] Use as Univers se Sensor 7-26 directed ity of (DEXCOM G6 00:00: [place] SENSOR) 00 [facility] [place] [facility] Blood-Gluco 2021-0 Yes [id number] Use as Univers se Sensor 7-26 directed ity of (DEXCOM G6 00:00: [place] SENSOR) 00 [facility] [place] [facility] Blood-Gluco 0 Yes [id number] Use as Univers se Sensor 7-26 directed ity of (DEXCOM G6 00:00: [place] SENSOR) 00 [facility] [place] [facility] Blood-Gluco 2021-0 Yes [id number] Use as [facility] se Sensor 7-26 directed ity of (DEXCOM G6 00:00: [place] SENSOR) 00 [facility] [place] [facility] Blood-Gluco 2021-0 Yes [id number] Use as Univers se Sensor 7-26 directed ity of (DEXCOM G6 00:00: [place] SENSOR) 00 [facility] [place] [facility] Blood-Gluco 2021-0 Yes [id number] Use as [facility] se Sensor 7-26 directed ity of (DEXCOM G6 00:00: [place] SENSOR) 00 [facility] [place] [facility] Blood-Gluco 2021-0 Yes [id number] Use as [facility] se Sensor 7-26 directed ity of (DEXCOM G6 00:00: [place] SENSOR) 00 [facility] [place] [facility] Blood-Gluco 2021-0 Yes [id number] Use as Univers se Sensor 7-26 directed ity of (DEXCOM G6 00:00: [place] SENSOR) 00 [facility] [place] [facility] Blood-Gluco 2021-0 Yes [id number] Use as Univers se Sensor 7-26 directed ity of (DEXCOM G6 00:00: [place] SENSOR) 00 [facility] [place] [facility] Blood-Gluco 2021-0 Yes [id number] Use as Univers se Sensor 7-26 directed ity of (DEXCOM G6 00:00: [place] SENSOR) 00 [facility] [place] [facility] Blood-Gluco Yes [id number] Use as Univers se Sensor 7-26 directed ity of (DEXCOM G6 00:00: [place] SENSOR) 00 [facility] Blood-Gluco 0 Yes [id number] Use as Univers se Sensor 7-26 directed ity of (DEXCOM G6 00:00: [place] SENSOR) 00 [facility] Blood-Gluco 0 Yes [id number] Use as Univers se Sensor 7-26 directed ity of (DEXCOM G6 00:00: [place] SENSOR) 00 [facility] Blood-Gluco 0 Yes [id number] Use as Univers se Sensor 7-26 directed ity of (DEXCOM G6 00:00: [place] SENSOR) 00 [facility] Blood-Gluco Yes [id number] Use as Univers se Sensor 7-26 directed ity of (DEXCOM G6 00:00: [place] SENSOR) 00 [facility] Blood-Gluco Yes [id number] Use as Univers se Sensor 7-26 directed ity of (DEXCOM G6 00:00: [place] SENSOR) 00 [facility] Blood-Gluco Yes [id number] Use as Univers se Sensor 7-26 directed ity of (DEXCOM G6 00:00: [place] SENSOR) 00 [facility] proMETHazin Yes [id number] 25mg Insert 1 Univers e 25 mg 7-11 Supp[facility] it[facility] of suppository 00:[place] rectum Medical every 4 Branch (four) hours as needed for Nausea and Vomiting (N/V). proMETHazin Yes [id number] 25mg Insert 1 Univers e 25 mg 7-11 Suppositor ity of suppository 00:[place]: [place] [facility] every 4 Branch (four) hours as needed for Nausea and Vomiting (N/V). proMETHazin Yes [id number] 25mg Insert 1 Univers e 25 mg 7-11 Suppositor ity of suppository 00:00[place] rect[place] Medical every 4 Branch (four) hours as needed for Nausea and Vomiting (N/V). proMETHazin Yes [id number] 25mg Insert 1 [facility] e 25 mg 7-11 Suppositor ity of suppository 00:00: [place] Medical every 4 Branch (four) hours as needed for Nausea and Vomiting (N/V). proMETHazin Yes [id number] 25mg Insert 1 [facility] e 25 mg 7-11 Suppositor ity of suppository 00:00: [place] Medical every 4 Branch (four) hours as needed for Nausea and Vomiting (N/V). proMETHazin Yes [id number] 25mg Insert 1 [facility] e 25 mg 7-11 Suppositor ity of suppository 00:00: [place] rect[place] Medical every 4 Branch (four) hours as needed for Nausea and Vomiting (N/V). proMETHazin Yes [id number] 25mg Insert 1 [facility] e 25 mg 7-11 Suppositor ity of suppository 00:00: [place] rect[place] Medical every 4 Branch (four) hours as needed for Nausea and Vomiting (N/V). proMETHazin Yes [id number] 25mg Insert 1 [facility] e 25 mg 7-11 Suppositor ity of suppository 00:00: [place] rect[place] Medical every 4 Branch (four) hours as needed for Nausea and Vomiting (N/V). proMETHazin Yes [id number] 25mg Insert 1 [facility] e 25 mg 7-11 Suppositor ity of suppository 00:00: [place] rect[place] Medical every 4 Branch (four) hours as needed for Nausea and Vomiting (N/V). proMETHazin Yes [id number] 25mg Insert 1 [facility] e 25 mg 7-11 Suppositor ity of suppository 00:00: [place] rect[place] Medical every 4 Branch (four) hours as needed for Nausea and Vomiting (N/V). proMETHazin Yes [id number] 25mg Insert 1 [facility] e 25 mg 7-11 Suppositor ity of suppository 00:00: [place] rect[place] Medical every 4 Branch (four) hours as needed for Nausea and Vomiting (N/V). proMETHazin Yes [id number] 25mg Insert 1 [facility] e 25 mg 7-11 Suppositor ity of suppository 00:00: [place] rect[place] Medical every 4 Branch (four) hours as needed for Nausea and Vomiting (N/V). proMETHazin Yes [id number] 25mg Insert 1 [facility] e 25 mg 7-11 Suppositor ity of suppository 00:00: [place] rect[place] Medical every 4 Branch (four) hours as needed for Nausea and Vomiting (N/V). proMETHazin Yes [id number] 25mg Insert 1 Univers e 25 mg 7-11 Suppositor ity of suppository 00:00: [place] rect[place] Medical every 4 Branch (four) hours as needed for Nausea and Vomiting (N/V). proMETHazin Yes [id number] 25mg Insert 1 Univers e 25 mg 7-11 Suppositor ity of suppository 00:00: [place] rect[place] Medical every 4 Branch (four) hours as needed for Nausea and Vomiting (N/V). proMETHazin Yes [id number] 25mg Insert 1 Univers e 25 mg 7-11 Suppositor ity of suppository 00:00: [place] rect[place] Medical every 4 Branch (four) hours as needed for Nausea and Vomiting (N/V). proMETHazin Yes [id number] 25mg Insert 1 [facility] e 25 mg 7-11 Suppositor ity of suppository 00:00: [place] rect[place] Medical every 4 Branch (four) hours as needed for Nausea and Vomiting (N/V). proMETHazin Yes [id number] 25mg Insert 1 [facility] e 25 mg 7-11 Suppositor ity of suppository 00:00: [place] rect[place] Medical every 4 Branch (four) hours as needed for Nausea and Vomiting (N/V). proMETHazin Yes [id number] 25mg Insert 1 Univers e 25 mg 7-11 Suppositor ity of suppository 00:00: [place] rect[place] Medical every 4 Branch (four) hours as needed for Nausea and Vomiting (N/V). proMETHazin Yes [id number] 25mg Insert 1 Univers e 25 mg 7-11 Suppositor ity of suppository 00:00: [place] rect[place] Medical every 4 Branch (four) hours as needed for Nausea and Vomiting (N/V). proMETHazin Yes [id number] 25mg Insert 1 Univers e 25 mg 7-11 Suppositor ity of suppository 00:00: [place] Medical every 4 Branch (four) hours as needed for Nausea and Vomiting (N/V). proMETHazin Yes [id number] 25mg Insert 1 Univers e 25 mg 7-11 Suppositor ity of suppository 00:00: [place] rect[place] Medical every 4 Branch (four) hours as needed for Nausea and Vomiting (N/V). proMETHazin Yes [id number] 25mg Insert 1 [facility] e 25 mg 7-11 Suppositor ity of suppository 00:00: [place] rect[place] Medical every 4 Branch (four) hours as needed for Nausea and Vomiting (N/V). proMETHazin Yes [id number] 25mg Insert 1 [facility] e 25 mg 7-11 Suppositor ity of suppository 00:00: [place] rect[place] Medical every 4 Branch (four) hours as needed for Nausea and Vomiting (N/V). proMETHazin Yes [id number] 25mg Insert 1 [facility] e 25 mg 7-11 Suppositor ity of suppository 00:00: [place] rect[place] Medical every 4 Branch (four) hours as needed for Nausea and Vomiting (N/V). proMETHazin Yes [id number] 25mg Insert 1 [facility] e 25 mg 7-11 Suppositor ity of suppository 00:00: [place] rect[place] Medical every 4 Branch (four) hours as needed for Nausea and Vomiting (N/V). proMETHazin Yes [id number] 25mg Insert 1 [facility] e 25 mg 7-11 Suppositor ity of suppository 00:00: [place] rectum Medical every 4 Branch (four) hours as needed for Nausea and Vomiting (N/V). proMETHazin Yes [id number] 25mg Insert 1 [facility] e 25 mg 7-11 Suppositor ity of suppository 00:00: [place] rect[place] Medical every 4 Branch (four) hours as needed for Nausea and Vomiting (N/V). proMETHazin Yes [id number] 25mg Insert 1 [facility] e 25 mg 7-11 Suppositor ity of suppository 00:00: [place] rect[place] Medical every 4 Branch (four) hours as needed for Nausea and Vomiting (N/V). proMETHazin Yes [id number] 25mg Insert 1 Univers e 25 mg 7-11 Suppositor ity of suppository 00:00: [place] rect[place] Medical every 4 Branch (four) hours as needed for Nausea and Vomiting (N/V). proMETHazin Yes [id number] 25mg Insert 1 Univers e 25 mg 7-11 Suppositor ity of suppository 00:00: [place] rect[place] Medical every 4 Branch (four) hours as needed for Nausea and Vomiting (N/V). proMETHazin Yes [id number] 25mg Insert 1 Univers e 25 mg 7-11 Suppositor ity of suppository 00:00: [place] rect[place] Medical every 4 Branch (four) hours as needed for Nausea and Vomiting (N/V). proMETHazin Yes [id number] 25mg Insert 1 [facility] e 25 mg 7-11 Suppositor ity of suppository 00:00: [place] Medical every 4 Branch (four) hours as needed for Nausea and Vomiting (N/V). proMETHazin Yes [id number] 25mg Insert 1 [facility] e 25 mg 7-11 Suppositor ity of suppository 00:00: [place] rect[place] Medical every 4 Branch (four) hours as needed for Nausea and Vomiting (N/V). proMETHazin Yes [id number] 25mg Insert 1 [facility] e 25 mg 7-11 Suppositor ity of suppository 00:00: [place] rect[place] Medical every 4 Branch (four) hours as needed for Nausea and Vomiting (N/V). haloperidoL Yes [id number] .5mg Take 1 Univers 0.5 mg 7-08 tablet by ity of tablet 00:00: mouth 2 [place] 00 (two) Medical times Branch daily. haloperidoL Yes [id number] .5mg Take 1 Univers 0.5 mg 7-08 tablet by ity of tablet 00:00: mouth 2 (two) Medical times Branch daily. haloperidoL 2022-0 Yes [id number] .5mg Take 1 Univers 0.5 mg 7-08 tablet by ity of tablet 00:00: mouth 2 (two) Medical times Branch daily. haloperidoL 2022-0 Yes [id number] .5mg Take 1 Univers 0.5 mg 7-08 tablet by ity of tablet 00:00: mouth (two) Medical times Branch daily. haloperidoL 2022-0 Yes [id number] .5mg Take 1 Univers 0.5 mg 7-08 tablet by ity of tablet 00:00: mouth 2 (two) Medical times Branch daily. haloperidoL 2022-0 Yes [id number] .5mg Take 1 Univers 0.5 mg 7-08 tablet by ity of tablet 00:00: mouth (two) Medical times Branch daily. haloperidoL 2022-0 Yes [id number] .5mg Take 1 Univers 0.5 mg 7-08 tablet by ity of tablet 00:00: mouth (two) Medical times Branch daily. haloperidoL 2022-0 Yes [id number] .5mg Take 1 Univers 0.5 mg 7-08 tablet by ity of tablet 00:00: mouth (two) Medical times Branch daily. haloperidoL 2022-0 Yes [id number] .5mg Take 1 Univers 0.5 mg 7-08 tablet by ity of tablet 00:00: mouth (two) Medical times Branch daily. haloperidoL 2022-0 Yes [id number] .5mg Take 1 Univers 0.5 mg 7-08 tablet by ity of tablet 00:00: mouth (two) Medical times Branch daily. haloperidoL 2022-0 Yes [id number] .5mg Take 1 Univers 0.5 mg 7-08 tablet by ity of tablet 00:00: mouth 2 (two) Medical times Branch daily. haloperidoL 2022-0 2022- No [id number] .5mg Take 1 Univers 0.5 mg 7-08 10-18 tablet by ity of tablet 00:00: 00:00 mouth 2 [place] 00 :00 (two) Medical times Branch daily. haloperidoL 2022-0 2022- No [id number] .5mg Take 1 Univers 0.5 mg 7- 10-18 tablet by ity of tablet 00:00: 00:00 mouth 2 [place] 00 :00 (two) Medical times Branch daily. sildenafiL 2022-0 Yes 100mg 100 mg as U nivers 100 mg 6-17 needed. ity of tablet 09:23: [place] [address] Medical Branch gabapentin 2022-0 Yes 100mg Take 100 Un darius 100 mg 6-17 mg by ity of capsule 09:23: mouth 3 [place] [address] (three) Medical times Branch daily. metFORMIN 2022-0 Yes 500mg Take 500 Uni vers 500 mg 6-17 mg by ity of tablet 09:23: mouth 2 [place] [address] (two) Medical times [place] daily with meals. Takes 2 tablets twice daily rosuvastati 2022-0 Yes 20mg Take 20 mg Univers n 20 mg 6-17 by mouth ity of tablet 09:23: at [place] [address] bedtime. Medical Branch omeprazole 2021-0 Yes 20mg Take 20 mg U nivers 20 mg 6-17 by mouth ity of capsule 09:23: daily. [place] [address] Takes 2 Medical tablets Branch daily sildenafiL 2-0 Yes 100mg 100 mg as U nivers 100 mg 6-17 needed. ity of tablet 09:23: [place] [address] Medical Branch gabapentin 2-0 Yes 100mg Take 100 Un darius 100 mg 6-17 mg by ity of capsule 09:23: mouth 3 [place] [address] (three) Medical times Branch daily. metFORMIN 2022-0 Yes 500mg Take 500 Uni vers 500 mg 6-17 mg by ity of tablet 09:23: mouth 2 [place] [address] (two) Medical times Branch daily with meals. Takes 2 tablets twice daily rosuvastati 2022-0 Yes 20mg Take 20 mg Univers n 20 mg 6-17 by mouth ity of tablet 09:23: at [place] [address] bedtime. Medical Branch omeprazole 2022-0 Yes 20mg Take 20 mg U nivers 20 mg 6-17 by mouth ity of capsule 09:23: daily. [place] [address] Takes 2 Medical tablets Branch daily sildenafiL 2022-0 Yes 100mg 100 mg as U nivers 100 mg 6-17 needed. ity of tablet 09:23: [place] [address] Medical Branch gabapentin 2022-0 Yes 100mg Take 100 Un darius 100 mg 6-17 mg by ity of capsule 09:23: mouth 3 [place] [address] (three) Medical times Branch daily. metFORMIN 2022-0 Yes 500mg Take 500 Uni vers 500 mg 6-17 mg by ity of tablet 09:23: mouth 2 [place] [address] (two) Medical times Branch daily with meals. Takes 2 tablets twice daily rosuvastati 2022-0 Yes 20mg Take 20 mg Univers n 20 mg 6-17 by mouth ity of tablet 09:23: at [place] [address] bedtime. Medical Branch omeprazole 2022-0 Yes 20mg Take 20 mg U nivers 20 mg 6-17 by mouth ity of capsule 09:23: daily. [place] [address] Takes 2 Medical tablets Branch daily sildenafiL 2022-0 Yes 100mg 100 mg as U nivers 100 mg 6-17 needed. ity of tablet 09:23: [place] [address] Medical Branch gabapentin 2022-0 Yes 100mg Take 100 Un darius 100 mg 6-17 mg by ity of capsule 09:23: mouth 3 [place] [address] (three) Medical times Branch daily. metFORMIN 2022-0 Yes 500mg Take 500 Uni vers 500 mg 6-17 mg by ity of tablet 09:23: mouth 2 [place] [address] (two) Medical times Branch daily with meals. Takes 2 tablets twice daily rosuvastati 2022-0 Yes 20mg Take 20 mg Univers n 20 mg 6-17 by mouth ity of tablet 09:23: at [place] [address] bedtime. Medical Branch omeprazole 2022-0 Yes 20mg Take 20 mg U nivers 20 mg 6-17 by mouth ity of capsule 09:23: daily. [place] [address] Takes 2 Medical tablets Branch daily sildenafiL 2022-0 Yes 100mg 100 mg as U nivers 100 mg 6-17 needed. ity of tablet 09:23: [place] [address] Medical Branch gabapentin 2022-0 Yes 100mg Take 100 Un darius 100 mg 6-17 mg by ity of capsule 09:23: mouth 3 [place] [address] (three) Medical times Branch daily. metFORMIN 2022-0 Yes 500mg Take 500 Uni vers 500 mg 6-17 mg by ity of tablet 09:23: mouth 2 [place] [address] (two) Medical times Branch daily with meals. Takes 2 tablets twice daily rosuvastati 2022-0 Yes 20mg Take 20 mg Univers n 20 mg 6-17 by mouth ity of tablet 09:23: at [place] [address] bedtime. Medical Branch omeprazole 2022-0 Yes 20mg Take 20 mg U nivers 20 mg 6-17 by mouth ity of capsule 09:23: daily. [place] [address] Takes 2 Medical tablets Branch daily sildenafiL 2022-0 Yes 100mg 100 mg as U nivers 100 mg 6-17 needed. ity of tablet 09:23: [place] [address] Medical Branch gabapentin 2022-0 Yes 100mg Take 100 Un darius 100 mg 6-17 mg by ity of capsule 09:23: mouth 3 [place] [address] (three) Medical times Branch daily. metFORMIN 2022-0 Yes 500mg Take 500 Uni vers 500 mg 6-17 mg by ity of tablet 09:23: mouth 2 [place] [address] (two) Medical times Branch daily with meals. Takes 2 tablets twice daily rosuvastati 2022-0 Yes 20mg Take 20 mg Univers n 20 mg 6-17 by mouth ity of tablet 09:23: at [place] [address] bedtime. Medical Branch omeprazole 2022-0 Yes 20mg Take 20 mg U nivers 20 mg 6-17 by mouth ity of capsule 09:23: daily. [place] [address] Takes 2 Medical tablets Branch daily sildenafiL 2022-0 Yes 100mg 100 mg as U nivers 100 mg 6-17 needed. ity of tablet 09:23: [place] [address] Medical Branch gabapentin 2-0 Yes 100mg Take 100 Un darius 100 mg 6-17 mg by ity of capsule 09:23: mouth 3 [place] [address] (three) Medical times Branch daily. metFORMIN 2022-0 Yes 500mg Take 500 Uni vers 500 mg 6-17 mg by ity of tablet 09:23: mouth 2 [place] [address] (two) Medical times Branch daily with meals. Takes 2 tablets twice daily rosuvastati 2022-0 Yes 20mg Take 20 mg Univers n 20 mg 6-17 by mouth ity of tablet 09:23: at [place] [address] bedtime. Medical Branch omeprazole 2022-0 Yes 20mg Take 20 mg U nivers 20 mg 6-17 by mouth ity of capsule 09:23: daily. [place] [address] Takes 2 Medical tablets Branch daily sildenafiL 2022-0 Yes 100mg 100 mg as U nivers 100 mg 6-17 needed. ity of tablet 09:23: [place] [address] Medical Branch gabapentin 2022-0 Yes 100mg Take 100 Un darius 100 mg 6-17 mg by ity of capsule 09:23: mouth 3 [place] [address] (three) Medical times Branch daily. metFORMIN 2022-0 Yes 500mg Take 500 Uni vers 500 mg 6-17 mg by ity of tablet 09:23: mouth 2 [place] [address] (two) Medical times Branch daily with meals. Takes 2 tablets twice daily rosuvastati 2022-0 Yes 20mg Take 20 mg Univers n 20 mg 6-17 by mouth ity of tablet 09:23: at [place] [address] bedtime. Medical Branch omeprazole 2022-0 Yes 20mg Take 20 mg U nivers 20 mg 6-17 by mouth ity of capsule 09:23: daily. [place] [address] Takes 2 Medical tablets Branch daily sildenafiL 2022-0 Yes 100mg 100 mg as U nivers 100 mg 6-17 needed. ity of tablet 09:23: [place] [address] Medical Branch gabapentin 2022-0 Yes 100mg Take 100 Un darius 100 mg 6-17 mg by ity of capsule 09:23: mouth 3 [place] [address] (three) Medical times Branch daily. metFORMIN 2022-0 Yes 500mg Take 500 Uni vers 500 mg 6-17 mg by ity of tablet 09:23: mouth 2 [place] [address] (two) Medical times [place] daily with meals. Takes 2 tablets twice daily rosuvastati 2022-0 Yes 20mg Take 20 mg Univers n 20 mg 6-17 by mouth ity of tablet 09:23: at [place] [address] bedtime. Medical Branch omeprazole 2022-0 Yes 20mg Take 20 mg U nivers 20 mg 6-17 by mouth ity of capsule 09:23: daily. [place] [address] Takes 2 Medical tablets Branch daily sildenafiL 2022-0 Yes 100mg 100 mg as U nivers 100 mg 6-17 needed. ity of tablet 09:23: [place] [address] Medical Branch gabapentin 2022-0 Yes 100mg Take 100 Un darius 100 mg 6-17 mg by ity of capsule 09:23: mouth 3 [place] [address] (three) Medical times Branch daily. metFORMIN 2022-0 Yes 500mg Take 500 Uni vers 500 mg 6-17 mg by ity of tablet 09:23: mouth 2 [place] [address] (two) Medical times Branch daily with meals. Takes 2 tablets twice daily rosuvastati 2022-0 Yes 20mg Take 20 mg Univers n 20 mg 6-17 by mouth ity of tablet 09:23: at [place] [address] bedtime. Medical Branch omeprazole 2022-0 Yes 20mg Take 20 mg U nivers 20 mg 6-17 by mouth ity of capsule 09:23: daily. [place] [address] Takes 2 Medical tablets Branch daily sildenafiL 2022-0 Yes 100mg 100 mg as U nivers 100 mg 6-17 needed. ity of tablet 09:23: [place] [address] Medical Branch gabapentin 2022-0 Yes 100mg Take 100 Un darius 100 mg 6-17 mg by ity of capsule 09:23: mouth 3 [place] [address] (three) Medical times Branch daily. metFORMIN 2022-0 Yes 500mg Take 500 Uni vers 500 mg 6-17 mg by ity of tablet 09:23: mouth 2 [place] [address] (two) Medical times Branch daily with meals. Takes 2 tablets twice daily rosuvastati 2022-0 Yes 20mg Take 20 mg Univers n 20 mg 6-17 by mouth ity of tablet 09:23: at [place] [address] bedtime. Medical Branch omeprazole 2021-0 Yes 20mg Take 20 mg U nivers 20 mg 6-17 by mouth ity of capsule 09:23: daily. [place] [address] Takes 2 Medical tablets Branch daily sildenafiL 2022-0 Yes 100mg 100 mg as U nivers 100 mg 6-17 needed. ity of tablet 09:23: [place] [address] Medical Branch metFORMIN 2022-0 Yes 500mg Take 500 Uni vers 500 mg 6-17 mg by ity of tablet 09:23: mouth 2 [place] [address] (two) Medical times Branch daily with meals. Takes 2 tablets twice daily rosuvastati 2022-0 Yes 20mg Take 20 mg Univers n 20 mg 6-17 by mouth ity of tablet 09:23: at [place] [address] bedtime. Medical Branch omeprazole 2-0 Yes 20mg Take 20 mg U nivers 20 mg 6-17 by mouth ity of capsule 09:23: daily. [place] [address] Takes 2 Medical tablets Branch daily sildenafiL 2022-0 Yes 100mg 100 mg as U nivers 100 mg 6-17 needed. ity of tablet 09:23: [place] [address] Medical Branch metFORMIN 2022-0 Yes 500mg Take 500 Uni vers 500 mg 6-17 mg by ity of tablet 09:23: mouth 2 [place] [address] (two) Medical times Branch daily with meals. Takes 2 tablets twice daily rosuvastati 2022-0 Yes 20mg Take 20 mg Univers n 20 mg 6-17 by mouth ity of tablet 09:23: at [place] [address] bedtime. Medical Branch omeprazole 2022-0 Yes 20mg Take 20 mg U nivers 20 mg 6-17 by mouth ity of capsule 09:23: daily. [place] [address] Takes 2 Medical tablets Branch daily sildenafiL 2022-0 Yes 100mg 100 mg as U nivers 100 mg 6-17 needed. ity of tablet 09:23: [place] [address] Medical Branch metFORMIN 2022-0 Yes 500mg Take 500 Uni vers 500 mg 6-17 mg by ity of tablet 09:23: mouth 2 [place] [address] ([facility]) Medical times [place] daily with meals. Takes 2 tablets twice daily rosuvastati 2022-0 Yes 20mg Take 20 mg Univers n 20 mg 6-17 by mouth ity of tablet 09:23: at [place] [address] bedtime. Medical Branch omeprazole 2-0 Yes 20mg Take 20 mg U nivers 20 mg 6-17 by mouth ity of capsule 09:23: daily. [place] [address] Takes 2 Medical tablets Branch daily sildenafiL 2022-0 Yes 100mg 100 mg as U nivers 100 mg 6-17 needed. ity of tablet 09:23: [place] [address] Medical Branch metFORMIN 2-0 Yes 500mg Take 500 Uni vers 500 mg 6-17 mg by ity of tablet 09:23: mouth 2 [place] [address] ([facility]) Medical times [place] daily with meals. Takes 2 tablets twice daily rosuvastati 2022-0 Yes 20mg Take 20 mg Univers n 20 mg 6-17 by mouth ity of tablet 09:23: at [place] [address] bedtime. Medical Branch omeprazole 2022-0 Yes 20mg Take 20 mg U nivers 20 mg 6-17 by mouth ity of capsule 09:23: daily. [place] [address] Takes 2 Medical tablets Branch daily sildenafiL 2022-0 Yes 100mg 100 mg as U nivers 100 mg 6-17 needed. ity of tablet 09:23: [place] [address] Medical Branch metFORMIN 2022-0 Yes 500mg Take 500 Uni vers 500 mg 6-17 mg by ity of tablet 09:23: mouth 2 [place] [address] ([facility]) Medical times [place] daily with meals. Takes 2 tablets twice daily rosuvastati 2022-0 Yes 20mg Take 20 mg [facility] n 20 mg 6-17 by mouth ity of tablet 09:23: at [place] [address] bedtime. Medical Branch omeprazole 2022-0 Yes 20mg Take 20 mg U nivers 20 mg 6-17 by mouth ity of capsule 09:23: daily. [place] [address] Takes 2 Medical tablets Branch daily sildenafiL 2022-0 Yes 100mg 100 mg as U nivers 100 mg 6-17 needed. ity of tablet 09:23: [place] [address] Medical Branch metFORMIN 2022-0 Yes 500mg Take 500 Uni vers 500 mg 6-17 mg by ity of tablet 09:23: mouth 2 [place] [address] ([facility]) Medical times [place] daily with meals. Takes 2 tablets twice daily rosuvastati 2022-0 Yes 20mg Take 20 mg [facility] n 20 mg 6-17 by mouth ity of tablet 09:23: at [place] [address] bedtime. Medical Branch omeprazole 2022-0 Yes 20mg Take 20 mg U nivers 20 mg 6-17 by mouth ity of capsule 09:23: daily. [place] [address] Takes 2 Medical tablets Branch daily sildenafiL 2022-0 Yes 100mg 100 mg as U nivers 100 mg 6-17 needed. ity of tablet 09:23: [address] Branch metFORMIN 2022-0 Yes 500mg Take 500 Uni vers 500 mg 6-17 mg by ity of tablet 09:23: mouth 2 [place] [address] ([facility]) Medical times [place] daily with meals. Takes 2 tablets twice daily rosuvastati 2022-0 Yes 20mg Take 20 mg [facility] n 20 mg 6-17 by mouth ity of tablet 09:23: at [place] [address] bedtime. Medical Branch omeprazole 2022-0 Yes 20mg Take 20 mg U nivers 20 mg 6-17 by mouth ity of capsule 09:23: daily. [place] [address] Takes 2 Medical tablets Branch daily sildenafiL 2022-0 Yes 100mg 100 mg as U nivers 100 mg 6-17 needed. ity of tablet 09:23: [place] [address] Medical Branch metFORMIN 2022-0 Yes 500mg Take 500 Uni vers 500 mg 6-17 mg by ity of tablet 09:23: mouth 2 [place] [address] (two) Medical times [place] daily with meals. Takes 2 tablets twice daily rosuvastati 2022-0 Yes 20mg Take 20 mg [facility] n 20 mg 6-17 by mouth ity of tablet 09:23: at [place] [address] bedtime. Medical Branch omeprazole 2022-0 Yes 20mg Take 20 mg U nivers 20 mg 6-17 by mouth ity of capsule 09:23: daily. [place] [address] Takes 2 Medical tablets Branch daily sildenafiL 2022-0 Yes 100mg 100 mg as U nivers 100 mg 6-17 needed. ity of tablet 09:23: [place] [address] Medical Branch metFORMIN 2-0 Yes 500mg Take 500 Uni vers 500 mg 6-17 mg by ity of tablet 09:23: mouth 2 [place] [address] (two) Medical times Branch daily with meals. Takes 2 tablets twice daily rosuvastati 2-0 Yes 20mg Take 20 mg [facility] n 20 mg 6-17 by mouth ity of tablet 09:23: at [place] [address] bedtime. Medical Branch omeprazole 2021-0 Yes 20mg Take 20 mg U nivers 20 mg 6-17 by mouth ity of capsule 09:23: daily. [place] [address] Takes 2 Medical tablets Branch daily sildenafiL 2021-0 Yes 100mg 100 mg as U nivers 100 mg 6-17 needed. ity of tablet 09:23: [place] [address] Medical Branch rosuvastati 2021-0 Yes 20mg Take 20 mg [facility] n 20 mg 6-17 by mouth ity of tablet 09:23: at [place] [address] bedtime. Medical Branch omeprazole 2021-0 Yes 20mg Take 20 mg U nivers 20 mg 6-17 by mouth ity of capsule 09:23: daily. [place] [address] Takes 2 Medical tablets Branch daily sildenafiL 2021-0 Yes 100mg 100 mg as U nivers 100 mg 6-17 needed. ity of tablet 09:23: [place] [address] Medical Branch rosuvastati 2021-0 Yes 20mg Take 20 mg Univers n 20 mg 6-17 by mouth ity of tablet 09:23: at [place] [address] bedtime. Medical Branch omeprazole 2-0 Yes 20mg Take 20 mg U nivers 20 mg 6-17 by mouth ity of capsule 09:23: daily. [place] [address] Takes 2 Medical tablets Branch daily sildenafiL 2-0 Yes 100mg 100 mg as U nivers 100 mg 6-17 needed. ity of tablet 09:23: [place] [address] Medical Branch rosuvastati 2-0 Yes 20mg Take 20 mg [facility] n 20 mg 6-17 by mouth ity of tablet 09:23: at [place] [address] bedtime. Medical Branch omeprazole 2022-0 Yes 20mg Take 20 mg U nivers 20 mg 6-17 by mouth ity of capsule 09:23: daily. [place] [address] Takes 2 Medical tablets Branch daily sildenafiL 2022-0 Yes 100mg 100 mg as U nivers 100 mg 6-17 needed. ity of tablet 09:23: [place] [address] Medical Branch rosuvastati 2022-0 Yes 20mg Take 20 mg Univers n 20 mg 6-17 by mouth ity of tablet 09:23: at [place] [address] bedtime. Medical Branch omeprazole 2022-0 Yes 20mg Take 20 mg U nivers 20 mg 6-17 by mouth ity of capsule 09:23: daily. [place] [address] Takes 2 Medical tablets Branch daily sildenafiL 2-0 Yes 100mg 100 mg as U nivers 100 mg 6-17 needed. ity of tablet 09:23: [place] [address] Medical Branch rosuvastati 2-0 Yes 20mg Take 20 mg Univers n 20 mg 6-17 by mouth ity of tablet 09:23: at [place] [address] bedtime. Medical Branch omeprazole 2-0 Yes 20mg Take 20 mg U nivers 20 mg 6-17 by mouth ity of capsule 09:23: daily. [place] [address] Takes 2 Medical tablets Branch daily sildenafiL 2-0 Yes 100mg 100 mg as U nivers 100 mg 6-17 needed. ity of tablet 09:23: [place] [address] Medical Branch rosuvastati 2-0 Yes 20mg Take 20 mg Univers n 20 mg 6-17 by mouth ity of tablet 09:23: at [place] [address] bedtime. Medical Branch omeprazole 2-0 Yes 20mg Take 20 mg U nivers 20 mg 6-17 by mouth ity of capsule 09:23: daily. [place] [address] Takes 2 Medical tablets Branch daily sildenafiL 2-0 Yes 100mg 100 mg as U nivers 100 mg 6-17 needed. ity of tablet 09:23: [address] Branch rosuvastati 2022-0 Yes 20mg Take 20 mg Univers n 20 mg 6-17 by mouth ity of tablet 09:23: at [place] [address] bedtime. Medical Branch omeprazole 2022-0 Yes 20mg Take 20 mg U nivers 20 mg 6-17 by mouth ity of capsule 09:23: daily. [place] [address] Takes 2 Medical tablets Branch daily sildenafiL 2022-0 Yes 100mg 100 mg as U nivers 100 mg 6-17 needed. ity of tablet 09:23: [address] Branch rosuvastati 2022-0 Yes 20mg Take 20 mg Univers n 20 mg 6-17 by mouth ity of tablet 09:23: at [place] [address] bedtime. Medical Branch omeprazole 2022-0 Yes 20mg Take 20 mg U nivers 20 mg 6-17 by mouth ity of capsule 09:23: daily. [place] [address] Takes 2 Medical tablets Branch daily sildenafiL 2022-0 Yes 100mg 100 mg as U nivers 100 mg 6-17 needed. ity of tablet 09:23: [place] [address] Medical Branch rosuvastati 2-0 Yes 20mg Take 20 mg Univers n 20 mg 6-17 by mouth ity of tablet 09:23: at [place] [address] bedtime. Medical Branch omeprazole 2-0 Yes 20mg Take 20 mg U nivers 20 mg 6-17 by mouth ity of capsule 09:23: daily. [place] [address] Takes 2 Medical tablets Branch daily sildenafiL 2021-0 Yes 100mg 100 mg as U nivers 100 mg 6-17 needed. ity of tablet 09:23: [place] [address] Medical Branch rosuvastati 2-0 Yes 20mg Take 20 mg Univers n 20 mg 6-17 by mouth ity of tablet 09:23: at [place] [address] bedtime. Medical Branch omeprazole 2-0 Yes 20mg Take 20 mg U nivers 20 mg 6-17 by mouth ity of capsule 09:23: daily. [place] [address] Takes 2 Medical tablets Branch daily sildenafiL 2021-0 Yes 100mg 100 mg as U nivers 100 mg 6-17 needed. ity of tablet 09:23: [place] [address] Medical Branch rosuvastati 2-0 Yes 20mg Take 20 mg Univers n 20 mg 6-17 by mouth ity of tablet 09:23: at [place] [address] bedtime. Medical Branch omeprazole 2-0 Yes 20mg Take 20 mg U nivers 20 mg 6-17 by mouth ity of capsule 09:23: daily. [place] [address] Takes 2 Medical tablets Branch daily sildenafiL 2-0 Yes 100mg 100 mg as U nivers 100 mg 6-17 needed. ity of tablet 09:23: [place] [address] Medical Branch rosuvastati 2-0 Yes 20mg Take 20 mg Univers n 20 mg 6-17 by mouth ity of tablet 09:23: at [place] [address] bedtime. Medical Branch omeprazole 2022-0 Yes 20mg Take 20 mg U nivers 20 mg 6-17 by mouth ity of capsule 09:23: daily. [place] [address] Takes 2 Medical tablets Branch daily sildenafiL 2022-0 Yes 100mg 100 mg as U nivers 100 mg 6-17 needed. ity of tablet 09:23: [place] [address] Medical Branch rosuvastati 2021-0 Yes 20mg Take 20 mg Univers n 20 mg 6-17 by mouth ity of tablet 09:23: at [place] [address] bedtime. Medical Branch omeprazole 2021-0 Yes 20mg Take 20 mg U nivers 20 mg 6-17 by mouth ity of capsule 09:23: daily. [place] [address] Takes 2 Medical tablets Branch daily sildenafiL 2021-0 Yes 100mg 100 mg as U nivers 100 mg 6-17 needed. ity of tablet 09:23: [place] [address] Medical Branch rosuvastati 0 Yes 20mg Take 20 mg Univers n 20 mg 6-17 by mouth ity of tablet 09:23: at [place] [address] bedtime. Medical Branch omeprazole 0 Yes 20mg Take 20 mg U nivers 20 mg 6-17 by mouth ity of capsule 09:23: daily. [place] [address] Takes 2 Medical tablets Branch daily sildenafiL 2021-0 Yes 100mg 100 mg as U nivers 100 mg 6-17 needed. ity of tablet 09:23: [place] [address] Medical Branch rosuvastati 0 Yes 20mg Take 20 mg Univers n 20 mg 6-17 by mouth ity of tablet 09:23: at [place] [address] bedtime. Medical Branch omeprazole 0 Yes 20mg Take 20 mg U nivers 20 mg 6-17 by mouth ity of capsule 09:23: daily. [place] [address] Takes 2 Medical tablets Branch daily ferrous 2021-0 Yes 325mg Take 325 Unive rs sulfate [...] 25 mg Tab 09 Medical Branch ferrous 2021-0 Yes 325mg Take 325 Unive rs sulfate 325 6-10 mg by ity of mg (65 mg 08:24: mouth [place] iron) 09 daily. Medical tablet Branch empaglifloz 0 Yes Take by Uni vers in 6-10 mouth ity of ([place]) 08:24: [place]. [place] 25 mg Tab 09 Medical Branch ferrous 2021-0 Yes 325mg Take 325 Unive rs sulfate 325 6-10 mg by ity of mg (65 mg 08:24: mouth [place] iron) 09 daily. Medical tablet Branch empaglifloz 0 Yes Take by Uni vers in 6-10 mouth ity of ([place]) 08:24: daily. [place] 25 mg Tab 09 Medical Branch ferrous 2021-0 Yes 325mg Take 325 Unive rs sulfate 325 6-10 mg by ity of mg (65 mg 08:24: mouth [place] iron) 09 daily. Medical tablet Branch empaglifloz 0 Yes Take by Uni vers in 6-10 mouth ity of ([place]) 08:24: daily. [place] 25 mg Tab 09 Medical Branch ferrous 2021-0 Yes 325mg Take 325 Unive rs sulfate 325 6-10 mg by ity of mg (65 mg 08:24: mouth [place] iron) 09 daily. Medical tablet Branch empaglifloz 0 Yes Take by Uni vers in 6-10 mouth ity of ([place]) 08:24: daily. [place] 25 mg Tab 09 Medical Branch ferrous 2021-0 Yes 325mg Take 325 Unive rs sulfate 325 6-10 mg by ity of mg (65 mg 08:24: mouth [place] iron) 09 daily. Medical tablet Branch empaglifloz 0 Yes Take by Uni vers in 6-10 mouth ity of ([place]) 08:24: daily. [place] 25 mg Tab 09 Medical Branch ferrous 2021-0 Yes 325mg Take 325 Unive rs sulfate 325 6-10 mg by ity of mg (65 mg 08:24: mouth [place] iron) 09 daily. Medical tablet Branch empaglifloz 0 Yes Take by Uni vers in 6-10 mouth ity of ([place]) 08:24: daily. [place] 25 mg Tab 09 Medical Branch ferrous 2021-0 Yes 325mg Take 325 Unive rs sulfate 325 6-10 mg by ity of mg (65 mg 08:24: mouth [place] iron) 09 daily. Medical tablet Branch empaglifloz 0 Yes Take by Uni vers in 6-10 mouth ity of ([place]) 08:24: daily. [place] 25 mg Tab 09 Medical Branch ferrous 0 Yes 325mg Take 325 Unive rs sulfate 325 6-10 mg by ity of mg (65 mg 08:24: mouth [place] iron) 09 daily. Medical tablet Branch empaglifloz 0 Yes Take by Uni vers in 6-10 [...] 25 mg Tab 09 Medical Branch ferrous 2021-0 Yes 325mg Take 325 Unive rs sulfate 325 6-10 mg by ity of mg (65 mg 08:24: mouth [place] iron) 09 daily. Medical tablet Branch empaglifloz 0 Yes Take by Uni vers in 6-10 mouth ity of ([place]) 08:24: daily. [place] 25 mg Tab 09 Medical Branch ferrous 2021-0 Yes 325mg Take 325 Unive rs sulfate 325 6-10 mg by ity of mg (65 mg 08:24: mouth [place] iron) 09 daily. Medical tablet Branch empaglifloz 0 Yes Take by Uni vers in 6-10 mouth ity of ([place]) 08:24: daily. [place] 25 mg Tab 09 Medical Branch ferrous 2021-0 Yes 325mg Take 325 Unive rs sulfate 325 6-10 mg by ity of mg (65 mg 08:24: mouth [place] iron) 09 daily. Medical tablet Branch empaglifloz 0 Yes Take by Uni vers in 6-10 mouth ity of ([place]) 08:24: daily. [place] 25 mg Tab 09 Medical Branch ferrous 2021-0 Yes 325mg Take 325 Unive rs sulfate 325 6-10 mg by ity of mg (65 mg 08:24: mouth [place] iron) 09 daily. Medical tablet Branch empaglifloz 0 Yes Take by Uni vers in 6-10 mouth ity of ([place]) 08:24: daily. [place] 25 mg Tab 09 Medical Branch ferrous 2021-0 Yes 325mg Take 325 Unive rs sulfate 325 6-10 mg by ity of mg (65 mg 08:24: mouth [place] iron) 09 daily. Medical tablet Branch empaglifloz 0 Yes Take by Uni vers in 6-10 mouth ity of ([place]) 08:24: daily. [place] 25 mg Tab 09 Medical Branch ferrous 2021-0 Yes 325mg Take 325 Unive rs sulfate 325 6-10 mg by ity of mg (65 mg 08:24: mouth [place] iron) 09 daily. Medical tablet Branch empaglifloz 0 Yes Take by Uni vers in 6-10 mouth ity of ([place]) 08:24: daily. [place] 25 mg Tab 09 Medical Branch ferrous 2021-0 Yes 325mg Take 325 Unive rs sulfate 325 6-10 mg by ity of mg (65 mg 08:24: mouth [place] iron) 09 daily. Medical tablet Branch empaglifloz 0 Yes Take by Uni vers in 6-10 mouth ity of ([place]) 08:24: daily. [place] 25 mg Tab 09 Medical Branch ferrous 2021-0 Yes 325mg Take 325 Unive rs sulfate 325 6-10 mg by ity of mg (65 mg 08:24: mouth [place] iron) 09 daily. Medical tablet Branch empaglifloz 2021-0 Yes Take by Uni vers in 6-10 mouth ity of ([place]) 08:24: daily. [place] 25 mg Tab 09 Medical Branch ferrous 2021-0 Yes 325mg Take 325 Unive rs sulfate 325 6-10 mg by ity of mg (65 mg 08:24: mouth [place] iron) 09 daily. Medical tablet Branch ferrous 2021-0 Yes 325mg Take 325 Unive rs sulfate 325 6-10 mg by ity of mg (65 mg 08:24: mouth [place] iron) 09 daily. Medical tablet Branch ferrous 0 Yes 325mg Take 325 Unive rs sulfate 325 6-10 mg by ity of mg (65 mg 08:24: mouth [place] iron) 09 daily. Medical tablet Branch ferrous 0 Yes 325mg Take 325 Unive rs sulfate 325 6-10 mg by ity of mg (65 mg 08:24: mouth [place] iron) 09 daily. Medical tablet Branch ferrous 0 Yes 325mg Take 325 Unive rs sulfate 325 6-10 mg by ity of mg (65 mg 08:24: mouth [place] iron) 09 daily. Medical tablet Branch ferrous 0 Yes 325mg Take 325 Unive rs sulfate 325 6-10 mg by ity of mg (65 mg 08:24: mouth [place] iron) 09 daily. Medical tablet Branch ferrous 0 Yes 325mg Take 325 Unive rs sulfate 325 6-10 mg by ity of mg (65 mg 08:24: mouth [place] iron) 09 daily. Medical tablet Branch ferrous 0 Yes 325mg Take 325 Unive rs sulfate 325 6-10 mg by ity of mg (65 mg 08:24: mouth [place] iron) 09 daily. Medical tablet Branch ferrous 0 Yes 325mg Take 325 Unive rs sulfate 325 6-10 mg by ity of mg (65 mg 08:24: mouth [place] iron) 09 daily. Medical tablet Branch ferrous 0 Yes 325mg Take 325 Unive rs sulfate 325 6-10 mg by ity of mg (65 mg 08:24: mouth [place] iron) 09 daily. Medical tablet Branch ferrous 0 Yes 325mg Take 325 Unive rs sulfate 325 6-10 mg by ity of mg (65 mg 08:24: mouth [place] iron) 09 daily. Medical tablet Branch ferrous 0 Yes 325mg Take 325 Unive rs sulfate 325 6-10 mg by ity of mg (65 mg 08:24: mouth [place] iron) 09 daily. Medical tablet Branch ferrous 2021-0 Yes 325mg Take 325 Unive rs sulfate 325 6-10 mg by ity of mg (65 mg 08:24: mouth [place] iron) 09 daily. Medical tablet Branch ferrous Yes 325mg Take 325 Unive rs sulfate 325 6-10 mg by ity of mg (65 mg 08:24: mouth [place] iron) 09 daily. Medical tablet Branch ferrous Yes 325mg Take 325 Unive rs sulfate 325 6-10 mg by ity of mg (65 mg 08:24: mouth [place] iron) 09 daily. Medical tablet Branch doxepin 10 Yes [id number] 10mg Take 1 U nivers mg capsule 6-10 capsule by ity of 00:00: mouth at [place] 00 bedtime. Medical Branch lipase-prot Yes [id number] 1{capsu Take 1 [facility] ease-amylas 6-10 le} capsule by it y of e (CREON) 00:00: mouth 3 [place] - 00 (three) Medic al 0 -30,000 times Branch unit daily with capsule meals. telmisartan Yes [id number] 1{tbl} Take 1 [facility] -hydrochlor 6-10 tablet by ity of othiazide 00:00: mouth [place] 80-25 mg 00 daily. Medical per tablet Branch doxepin 10 Yes [id number] 10mg Take 1 U nivers mg capsule 6-10 capsule by ity of 00:00: mouth at [place] 00 bedtime. Medical Branch lipase-prot Yes [id number] 1{capsu Take 1 [facility] ease-amylas 6-10 le} capsule by it y of e (CREON) 00:00: mouth 3 - 00 (three) Medic al 0 -30,000 times Branch unit daily with capsule meals. telmisartan Yes [id number] 1{tbl} Take 1 [facility] -hydrochlor 6-10 tablet by ity of othiazide 00:00: mouth [place] 80-25 mg 00 daily. Medical per tablet Branch doxepin 10 Yes [id number] 10mg Take 1 U nivers mg capsule 6-10 capsule by ity of 00:00: mouth at [place] 00 bedtime. Medical Branch lipase-prot Yes [id number] 1{capsu Take 1 [facility] ease-amylas 6-10 le} capsule by it y of e (CREON) 00:00: mouth 3 - 00 (three) Medic al 0 -30,000 times Branch unit daily with capsule meals. telmisartan Yes [id number] 1{tbl} Take 1 [facility] -hydrochlor 6-10 tablet by ity of othiazide 00:00: mouth [place] 80-25 mg 00 daily. Medical per tablet Branch doxepin 10 Yes [id number] 10mg Take 1 U nivers mg capsule 6-10 capsule by ity of 00:00: mouth at [place] 00 bedtime. Medical Branch lipase-prot Yes [id number] 1{capsu Take 1 [facility] ease-amylas 6-10 le} capsule by it y of e (CREON) 00:00: mouth 3 - 00 (three) Medic al 0 -30,000 times Branch unit daily with capsule meals. doxepin 10 Yes [id number] 10mg Take 1 U nivers mg capsule 6-10 capsule by ity of 00:00: mouth at [place] 00 bedtime. Medical Branch lipase-prot Yes [id number] 1{capsu Take 1 [facility] ease-amylas 6-10 le} capsule by it y of e (CREON) 00:00: mouth 3 - 00 (three) Medic al 0 -30,000 times Branch unit daily with capsule meals. doxepin 10 Yes [id number] 10mg Take 1 U nivers mg capsule 6-10 capsule by ity of 00:00: mouth at [place] 00 bedtime. Medical Branch lipase-prot Yes [id number] 1{capsu Take 1 [facility] ease-amylas 6-10 le} capsule by it y of e (CREON) 00:00: mouth 3 - 00 (three) Medic al 0 -30,000 times Branch unit daily with capsule meals. doxepin 10 Yes [id number] 10mg Take 1 U nivers mg capsule 6-10 capsule by ity of 00:00: mouth at [place] 00 bedtime. Medical Branch lipase-prot Yes [id number] 1{capsu Take 1 [facility] ease-amylas 6-10 le} capsule by it y of e (CREON) 00:00: mouth 3 - 00 (three) Medic al 0 -30,000 times Branch unit daily with capsule meals. doxepin 10 2021-0 Yes [id number] 10mg Take 1 U nivers mg capsule 6-10 capsule by ity of 00:00: mouth at [place] 00 bedtime. Medical Branch lipase-prot 2021- Yes [id number] 1{capsu Take 1 [facility] ease-amylas 6-10 le} capsule by it y of e (CREON) 00:00: mouth 3 - 00 (three) Medic al 0 -30,000 times Branch unit daily with capsule meals. doxepin 10 2021- Yes [id number] 10mg Take 1 U nivers mg capsule 6-10 capsule by ity of 00:00: mouth at [place] 00 bedtime. Medical Branch lipase-prot Yes [id number] 1{capsu Take 1 [facility] ease-amylas 6-10 le} capsule by it y of e (CREON) 00:00: mouth 3 - 00 (three) Medic al 0 -30,000 times Branch unit daily with capsule meals. doxepin 10 2021- Yes [id number] 10mg Take 1 U nivers mg capsule 6-10 capsule by ity of 00:00: mouth at [place] 00 bedtime. Medical Branch lipase-prot Yes [id number] 1{capsu Take 1 [facility] ease-amylas 6-10 le} capsule by it y of e (CREON) 00:00: mouth 3 - 00 (three) Medic al 0 -30,000 times Branch unit daily with capsule meals. doxepin 10 2021- Yes [id number] 10mg Take 1 U nivers mg capsule 6-10 capsule by ity of 00:00: mouth at [place] 00 bedtime. Medical Branch lipase-prot 2021- Yes [id number] 1{capsu Take 1 [facility] ease-amylas 6-10 le} capsule by it y of e (CREON) 00:00: mouth 3 - 00 (three) Medic al 0 -30,000 times Branch unit daily with capsule meals. lipase-prot 2021-0 Yes [id number] 1{capsu Take 1 [facility] ease-amylas 6-10 le} capsule by it y of e (CREON) 00:00: mouth 3 [place] 6,000-19,00 00 (three) Medic al 0 -30,000 times Branch unit daily with capsule meals. lipase-prot Yes [id number] 1{capsu Take 1 [facility] ease-amylas 6-10 le} capsule by it y of e (CREON) 00:00: mouth 3 [place] 6,000-, 00 (three) Medic al 0 -30,000 times Branch unit daily with capsule meals. lipase-prot Yes [id number] 1{capsu Take 1 [facility] ease-amylas 6-10 le} capsule by it y of e (CREON) 00:00: mouth 3 [place] 6,000-, 00 (three) Medic al 0 -30,000 times Branch unit daily with capsule meals. lipase-prot Yes [id number] 1{capsu Take 1 [facility] ease-amylas 6-10 le} capsule by it y of e (CREON) 00:00: mouth 3 [place] 6,000-19, 00 (three) Medic al 0 -30,000 times Branch unit daily with capsule meals. lipase-prot Yes [id number] 1{capsu Take 1 [facility] ease-amylas 6-10 le} capsule by it y of e (CREON) 00:00: mouth 3 [place] 6,000-19, 00 (three) Medic al 0 -30,000 times Branch unit daily with capsule meals. lipase-prot Yes [id number] 1{capsu Take 1 [facility] ease-amylas 6-10 le} capsule by it y of e (CREON) 00:00: mouth 3 [place] 6,000-19, 00 (three) Medic al 0 -30,000 times Branch unit daily with capsule meals. lipase-prot 2021- No [id number] 1{capsu Take 1 [facility] ease-amylas 6-10 11-11 le} capsule by i ty of e (CREON) 00:00: 00:00 mouth 3 [place] 6,000-19,00 00 :00 (three) Medic al 0 -30,000 times Branch unit daily with capsule meals. lipase-prot 2021- No [id number] 1{capsu Take 1 [facility] ease-amylas 6-10 11-11 le} capsule by i ty of e (CREON) 00:00: 00:00 mouth 3 [place] 6,000-19,00 00 :00 (three) Medic al 0 -30,000 times Branch unit daily with capsule meals. doxepin 10 2021- No [id number] 10mg Take 1 [facility] mg capsule 6-10 10-18 capsule by it y of 00:00: 00:00 mouth at [place] 00 :00 bedtime. Medical Branch doxepin 10 2021- No [id number] 10mg Take 1 [facility] mg capsule 6-10 10-18 capsule by it y of 00:00: 00:00 mouth at [place] 00 :00 bedtime. Medical Branch telmisartan 2021- No [id number] 1{tbl} Take 1 [facility] -hydrochlor 6-10 08-22 tablet by it y of othiazide 00:00: 00:00 mouth [place] 80-25 mg 00 :00 daily. Medical per tablet Branch ondansetron Yes [id number] 4mg Take 1 [facility] 4 mg 5-27 tablet by ity of disintegrat 00:00: mouth [place] ing tablet 00 every 8 Medica l (eight) Branch hours as needed for Nausea and Vomiting (N/V). ondansetron Yes [id number] 4mg Take 1 [facility] 4 mg 5-27 tablet by ity of disintegrat 00:00: mouth [place] ing tablet 00 every 8 Medica l (eight) Branch hours as needed for Nausea and Vomiting (N/V). ondansetron Yes [id number] 4mg Take 1 [facility] 4 mg 5-27 tablet by ity of disintegrat 00:00: mouth [place] ing tablet 00 every 8 Medica l (eight) Branch hours as needed for Nausea and Vomiting (N/V). ondansetron Yes [id number] 4mg Take 1 [facility] 4 mg 5-27 tablet by ity of disintegrat 00:00: mouth [place] ing tablet 00 every 8 Medica l (eight) Branch hours as needed for Nausea and Vomiting (N/V). ondansetron Yes [id number] 4mg Take 1 [facility] 4 mg 5-27 tablet by ity of disintegrat 00:00: mouth [place] ing tablet 00 every 8 Medica l (eight) Branch hours as needed for Nausea and Vomiting (N/V). ondansetron 2021-0 Yes [id number] 4mg Take 1 [facility] 4 mg 5-27 tablet by ity of disintegrat 00:00: mouth [place] ing tablet 00 every 8 Medica l (eight) Branch hours as needed for Nausea and Vomiting (N/V). ondansetron 2021-0 Yes [id number] 4mg Take 1 [facility] 4 mg 5-27 tablet by ity of disintegrat 00:00: mouth [place] ing tablet 00 every 8 Medica l (eight) Branch hours as needed for Nausea and Vomiting (N/V). ondansetron 2021-0 Yes [id number] 4mg Take 1 [facility] 4 mg 5-27 tablet by ity of disintegrat 00:00: mouth [place] ing tablet 00 every 8 Medica l (eight) Branch hours as needed for Nausea and Vomiting (N/V). ondansetron 2021-0 Yes [id number] 4mg Take 1 [facility] 4 mg 5-27 tablet by ity of disintegrat 00:00: mouth [place] ing tablet 00 every 8 Medica l (eight) Branch hours as needed for Nausea and Vomiting (N/V). ondansetron 2021-0 Yes [id number] 4mg Take 1 Univers 4 mg 5-27 tablet by ity of disintegrat 00:00: mouth [place] ing tablet 00 every 8 Medica l (eight) Branch hours as needed for Nausea and Vomiting (N/V). ondansetron 2021-0 Yes [id number] 4mg Take 1 Univers 4 mg 5-27 tablet by ity of disintegrat 00:00: mouth [place] ing tablet 00 every 8 Medica l (eight) Branch hours as needed for Nausea and Vomiting (N/V). ondansetron 2021-0 Yes [id number] 4mg Take 1 Univers 4 mg 5-27 tablet by ity of disintegrat 00:00: mouth [place] ing tablet 00 every 8 Medica l (eight) Branch hours as needed for Nausea and Vomiting (N/V). ondansetron 2021-0 Yes [id number] 4mg Take 1 Univers 4 mg 5-27 tablet by ity of disintegrat 00:00: mouth [place] ing tablet 00 every 8 Medica l (eight) Branch hours as needed for Nausea and Vomiting (N/V). ondansetron 2021-0 Yes [id number] 4mg Take 1 Univers 4 mg 5-27 tablet by ity of disintegrat 00:00: mouth [place] ing tablet 00 every 8 Medica l (eight) Branch hours as needed for Nausea and Vomiting (N/V). ondansetron 2021-0 Yes [id number] 4mg Take 1 Univers 4 mg 5-27 tablet by ity of disintegrat 00:00: mouth [place] ing tablet 00 every 8 Medica l (eight) Branch hours as needed for Nausea and Vomiting (N/V). ondansetron 2021-0 Yes [id number] 4mg Take 1 Univers 4 mg 5-27 tablet by ity of disintegrat 00:00: mouth [place] ing tablet 00 every 8 Medica l (eight) Branch hours as needed for Nausea and Vomiting (N/V). ondansetron 2021-0 Yes [id number] 4mg Take 1 Univers 4 mg 5-27 tablet by ity of disintegrat 00:00: mouth [place] ing tablet 00 every 8 Medica l (eight) Branch hours as needed for Nausea and Vomiting (N/V). ondansetron 2021-0 Yes [id number] 4mg Take 1 [facility] 4 mg 5-27 tablet by ity of disintegrat 00:00: mouth [place] ing tablet 00 every 8 Medica l (eight) Branch hours as needed for Nausea and Vomiting (N/V). ondansetron 2021-0 Yes [id number] 4mg Take 1 Univers 4 mg 5-27 tablet by ity of disintegrat 00:00: mouth [place] ing tablet 00 every 8 Medica l (eight) Branch hours as needed for Nausea and Vomiting (N/V). ondansetron 2021-0 Yes [id number] 4mg Take 1 [facility] 4 mg 5-27 tablet by ity of disintegrat 00:00: mouth [place] ing tablet 00 every 8 Medica l (eight) Branch hours as needed for Nausea and Vomiting (N/V). ondansetron 2021-0 2021- No [id number] 4mg Take 1 [facility] 4 mg 5-27 11-18 tablet by ity [facility] disintegrat 00:00[place] :00 every 8 [facility]ica l (eight) Branch hours as needed for Nausea and Vomiting (N/V). ondansetron 2021-0 2- No [id number] 4mg Take 1 [facility] 4 mg 5-27 11-18 tablet by ity of disintegrat 00:00[place] 00 :00 every 8 [facility]ica l (eight) Branch hours as needed for Nausea and Vomiting (N/V). ondansetron 2021-0 2- No [id number] 4mg Take 1 [facility] 4 mg 5-27 11-18 tablet by ity of disintegrat 00:00: [place] 00 :00 every 8 [facility]ica l (eight) Branch hours as needed for Nausea and Vomiting (N/V). ondansetron 2021-0 2- No [id number] 4mg Take 1 [facility] 4 mg 5-27 11-18 tablet by ity [facility] disintegrat 00:00[place] 00 :00 every 8 [facility]ica l (eight) Branch hours as needed for Nausea and Vomiting (N/V). ondansetron 2021-0 2- No [id number] 4mg Take 1 [facility] 4 mg 5-27 11-18 tablet by ity of disintegrat 00:00[place] 00 :00 every 8 [facility]ica l (eight) Branch hours as needed for Nausea and Vomiting (N/V). meclizine 2021-0 Yes [id number] 25mg Take 1 U nivers 25 mg 5-18 tablet by ity of tablet 00:00: mouth 3 (three) Medical times Branch daily as needed for Dizziness. meclizine 2021-0 Yes [id number] 25mg Take 1 U nivers 25 mg 5-18 tablet by ity of tablet 00:00: mouth 3 00 (three) Medical times Branch daily as needed for Dizziness. meclizine 2-0 Yes [id number] 25mg Take 1 U nivers 25 mg 5-18 tablet by ity of tablet 00:00: mouth 3 00 (three) Medical times Branch daily as needed for Dizziness. meclizine 2-0 Yes [id number] 25mg Take 1 U nivers 25 mg 5-18 tablet by ity of tablet 00:00: mouth 3 (three) Medical times Branch daily as needed for Dizziness. meclizine 2021-0 Yes [id number] 25mg Take 1 U nivers 25 mg 5-18 tablet by ity of tablet 00:00: mouth 3 (three) Medical times Branch daily as needed for Dizziness. meclizine 2021-0 Yes [id number] 25mg Take 1 U nivers 25 mg 5-18 tablet by ity of tablet 00:00: mouth (three) Medical times Branch daily as needed for Dizziness. meclizine 2021-0 Yes [id number] 25mg Take 1 U nivers 25 mg 5-18 tablet by ity of tablet 00:00: mouth (three) Medical times Branch daily as needed for Dizziness. meclizine 2021-0 Yes [id number] 25mg Take 1 U nivers 25 mg 5-18 tablet by ity of tablet 00:00: mouth (three) Medical times Branch daily as needed for Dizziness. meclizine 2021-0 Yes [id number] 25mg Take 1 U nivers 25 mg 5-18 tablet by ity of tablet 00:00: mouth (three) Medical times Branch daily as needed for Dizziness. meclizine 2021-0 Yes [id number] 25mg Take 1 U nivers 25 mg 5-18 tablet by ity of tablet 00:00: mouth (three) Medical times Branch daily as needed for Dizziness. meclizine 2021-0 Yes [id number] 25mg Take 1 U nivers 25 mg 5-18 tablet by ity of tablet 00:00: mouth (three) Medical times Branch daily as needed for Dizziness. meclizine 2021-0 Yes [id number] 25mg Take 1 U nivers 25 mg 5-18 tablet by ity of tablet 00:00: mouth 3 (three) Medical times Branch daily as needed for Dizziness. meclizine 2021-0 Yes [id number] 25mg Take 1 U nivers 25 mg 5-18 tablet by ity of tablet 00:00: mouth 3 (three) Medical times Branch daily as needed for Dizziness. meclizine 2021-0 Yes [id number] 25mg Take 1 U nivers 25 mg 5-18 tablet by ity of tablet 00:00: mouth 3 (three) Medical times Branch daily as needed for Dizziness. meclizine 2021-0 Yes [id number] 25mg Take 1 U nivers 25 mg 5-18 tablet by ity of tablet 00:00: mouth 3 (three) Medical times Branch daily as needed for Dizziness. meclizine 2021-0 Yes [id number] 25mg Take 1 U nivers 25 mg 5-18 tablet by ity of tablet 00:00: mouth (three) Medical times Branch daily as needed for Dizziness. meclizine 2021-0 Yes [id number] 25mg Take 1 U nivers 25 mg 5-18 tablet by ity of tablet 00:00: mouth (three) Medical times Branch daily as needed for Dizziness. meclizine 2021-0 Yes [id number] 25mg Take 1 U nivers 25 mg 5-18 tablet by ity of tablet 00:00: mouth (three) Medical times Branch daily as needed for Dizziness. meclizine 0 Yes [id number] 25mg Take 1 U nivers 25 mg 5-18 tablet by ity of tablet 00:00: mouth (three) Medical times Branch daily as needed for Dizziness. meclizine 2021-0 Yes [id number] 25mg Take 1 U nivers 25 mg 5-18 tablet by ity of tablet 00:00: mouth (three) Medical times Branch daily as needed for Dizziness. meclizine 2021-0 Yes [id number] 25mg Take 1 U nivers 25 mg 5-18 tablet by ity of tablet 00:00: mouth 3 (three) Medical times Branch daily as needed for Dizziness. meclizine 2021-0 Yes [id number] 25mg Take 1 U nivers 25 mg 5-18 tablet by ity of tablet 00:00: mouth 3 (three) Medical times Branch daily as needed for Dizziness. meclizine 2021-0 Yes [id number] 25mg Take 1 U nivers 25 mg 5-18 tablet by ity of tablet 00:00: mouth 3 (three) Medical times Branch daily as needed for Dizziness. meclizine 2021-0 Yes [id number] 25mg Take 1 U nivers 25 mg 5-18 tablet by ity of tablet 00:00: mouth (three) Medical times Branch daily as needed for Dizziness. meclizine 2021-0 Yes [id number] 25mg Take 1 U nivers 25 mg 5-18 tablet by ity of tablet 00:00: mouth 3 (three) Medical times Branch daily as needed for Dizziness. meclizine 2021-0 Yes [id number] 25mg Take 1 U nivers 25 mg 5-18 tablet by ity of tablet 00:00: mouth (three) Medical times Branch daily as needed for Dizziness. meclizine 2021-0 Yes [id number] 25mg Take 1 U nivers 25 mg 5-18 tablet by ity of tablet 00:00: mouth (three) Medical times Branch daily as needed for Dizziness. meclizine 2021-0 Yes [id number] 25mg Take 1 U nivers 25 mg 5-18 tablet by ity of tablet 00:00: mouth (three) Medical times Branch daily as needed for Dizziness. meclizine 2021-0 Yes [id number] 25mg Take 1 U nivers 25 mg 5-18 tablet by ity of tablet 00:00: mouth (three) Medical times Branch daily as needed for Dizziness. meclizine 2021-0 Yes [id number] 25mg Take 1 U nivers 25 mg 5-18 tablet by ity of tablet 00:00: mouth (three) Medical times Branch daily as needed for Dizziness. meclizine 2021-0 Yes [id number] 25mg Take 1 U nivers 25 mg 5-18 tablet by ity of tablet 00:00: mouth (three) Medical times Branch daily as needed for Dizziness. meclizine 2021-0 Yes [id number] 25mg Take 1 U nivers 25 mg 5-18 tablet by ity of tablet 00:00: mouth 3 (three) Medical times Branch daily as needed for Dizziness. meclizine 2021-0 Yes [id number] 25mg Take 1 U nivers 25 mg 5-18 tablet by ity of tablet 00:00: mouth 3 [place] 00 (three) Medical times Branch daily as needed for Dizziness. meclizine 2022-0 Yes [id number] 25mg Take 1 U nivers 25 mg 5-18 tablet by ity of tablet 00:00: mouth 3 [place] 00 (three) Medical times Branch daily as needed for Dizziness. meclizine 2022-0 Yes [id number] 25mg Take 1 U nivers 25 mg 5-18 tablet by ity of tablet 00:00: mouth 3 [place] 00 (three) Medical times Branch daily as needed for Dizziness. Blood-Gluco 2022-0 Yes [id number] Use as Univers se 5-04 directed ity of Transmitter 00:00: [place] (DEXCOM G6 00 Medical TRANSMITTER Branch ) [place] Blood-Gluco 2022-0 Yes [id number] Use as Univers se 5-04 directed ity of Transmitter 00:00: [place] (DEXCOM G6 00 Medical TRANSMITTER Branch ) [place] Blood-Gluco 2022-0 Yes [id number] Use as Univers se 5-04 directed ity of Transmitter 00:00: [place] (DEXCOM G6 00 Medical TRANSMITTER Branch ) [place] Blood-Gluco 2022-0 Yes [id number] Use as Univers se 5-04 directed ity of Transmitter 00:00: [place] (DEXCOM G6 00 Medical TRANSMITTER Branch ) [place] Blood-Gluco 2022-0 Yes [id number] Use as Univers se 5-04 directed ity of Transmitter 00:00: [place] (DEXCOM G6 00 Medical TRANSMITTER Branch ) [place] Blood-Gluco 2022-0 Yes [id number] Use as Univers se 5-04 directed ity of Transmitter 00:00: [place] (DEXCOM G6 00 Medical TRANSMITTER Branch ) [place] Blood-Gluco 2022-0 Yes [id number] Use as Univers se 5-04 directed ity of Transmitter 00:00: [place] (DEXCOM G6 00 Medical TRANSMITTER Branch ) [place] Blood-Gluco 2022-0 Yes [id number] Use as Univers se 5-04 directed ity of Transmitter 00:00: [place] (DEXCOM G6 00 Medical TRANSMITTER Branch ) [place] Blood-Gluco 2022-0 Yes [id number] Use as Univers se 5-04 directed ity of Transmitter 00:00: [place] (DEXCOM G6 00 Medical TRANSMITTER Branch ) [place] Blood-Gluco 2022-0 Yes [id number] Use as Univers se 5-04 directed ity of Transmitter 00:00: [place] (DEXCOM G6 00 Medical TRANSMITTER Branch ) [place] Blood-Gluco 2022-0 Yes [id number] Use as Univers se 5-04 directed ity of Transmitter 00:00: [place] (DEXCOM G6 00 Medical TRANSMITTER Branch ) [place] Blood-Gluco 2022-0 Yes [id number] Use as Univers se 5-04 directed ity of Transmitter 00:00: [place] (DEXCOM G6 00 Medical TRANSMITTER Branch ) [place] Blood-Gluco 2022-0 Yes [id number] Use as Univers se 5-04 directed ity of Transmitter 00:00: [place] (DEXCOM G6 00 Medical TRANSMITTER Branch ) [place] Blood-Gluco 2022-0 Yes [id number] Use as Univers se 5-04 directed ity of Transmitter 00:00: [place] (DEXCOM G6 00 Medical TRANSMITTER Branch ) [place] Blood-Gluco 2022-0 Yes [id number] Use as Univers se 5-04 directed ity of Transmitter 00:00: [place] (DEXCOM G6 00 Medical TRANSMITTER Branch ) [place] Blood-Gluco 2022-0 Yes [id number] Use as Univers se 5-04 directed ity of Transmitter 00:00: [place] (DEXCOM G6 00 Medical TRANSMITTER Branch ) [place] Blood-Gluco 2022-0 Yes [id number] Use as Univers se 5-04 directed ity of Transmitter 00:00: [place] (DEXCOM G6 00 Medical TRANSMITTER Branch ) [place] Blood-Gluco 2022-0 Yes [id number] Use as Univers se 5-04 directed ity of Transmitter 00:00: [place] (DEXCOM G6 00 Medical TRANSMITTER Branch ) [place] Blood-Gluco 2022-0 Yes [id number] Use as Univers se 5-04 directed ity of Transmitter 00:00: [place] (DEXCOM G6 00 Medical TRANSMITTER Branch ) [place] Blood-Gluco 2022-0 Yes [id number] Use as Univers se 5-04 directed ity of Transmitter 00:00: [place] (DEXCOM G6 00 Medical TRANSMITTER Branch ) [place] Blood-Gluco 2022-0 Yes [id number] Use as Univers se 5-04 directed ity of Transmitter 00:00: [place] (DEXCOM G6 00 Medical TRANSMITTER Branch ) [place] Blood-Gluco 2022-0 Yes [id number] Use as Univers se 5-04 directed ity of Transmitter 00:00: [place] (DEXCOM G6 00 Medical TRANSMITTER Branch ) [place] Blood-Gluco 2022-0 Yes [id number] Use as Univers se 5-04 directed ity of Transmitter 00:00: [place] (DEXCOM G6 00 Medical TRANSMITTER Branch ) [place] Blood-Gluco 2022-0 Yes [id number] Use as Univers se 5-04 directed ity of Transmitter 00:00: [place] (DEXCOM G6 00 Medical TRANSMITTER Branch ) [place] Blood-Gluco 2022-0 Yes [id number] Use as Univers se 5-04 directed ity of Transmitter 00:00: [place] (DEXCOM G6 00 Medical TRANSMITTER Branch ) [place] Blood-Gluco 2022-0 Yes [id number] Use as Univers se 5-04 directed ity of Transmitter 00:00: [place] (DEXCOM G6 00 Medical TRANSMITTER Branch ) [place] Blood-Gluco 2022-0 Yes [id number] Use as Univers se 5-04 directed ity of Transmitter 00:00: [place] (DEXCOM G6 00 Medical TRANSMITTER Branch ) [place] Blood-Gluco 2022-0 Yes [id number] Use as Univers se 5-04 directed ity of Transmitter 00:00: [place] (DEXCOM G6 00 Medical TRANSMITTER Branch ) [place] Blood-Gluco 2022-0 Yes [id number] Use as Univers se 5-04 directed ity of Transmitter 00:00: [place] (DEXCOM G6 00 Medical TRANSMITTER Branch ) [place] Blood-Gluco 2022-0 Yes [id number] Use as Univers se 5-04 directed ity of Transmitter 00:00: [place] (DEXCOM G6 00 Medical TRANSMITTER Branch ) [place] Blood-Gluco 2022-0 Yes [id number] Use as Univers se 5-04 directed ity of Transmitter 00:00: [place] (DEXCOM G6 00 Medical TRANSMITTER Branch ) [place] Blood-Gluco 2022-0 Yes [id number] Use as Univers se 5-04 directed ity of Transmitter 00:00: [place] (DEXCOM G6 00 Medical TRANSMITTER Branch ) [place] Blood-Gluco 2022-0 Yes [id number] Use as Univers se 5-04 directed ity of Transmitter 00:00: [place] (DEXCOM G6 00 Medical TRANSMITTER Branch ) [place] Blood-Gluco 2022-0 Yes [id number] Use as Univers se 5-04 directed ity of Transmitter 00:00: [place] (DEXCOM G6 00 Medical TRANSMITTER Branch ) [place] Blood-Gluco 2022-0 Yes [id number] Use as Univers se 5-04 directed ity of Transmitter 00:00: [place] (DEXCOM G6 00 Medical TRANSMITTER Branch ) [place] Vital Signs Vital Name Observation Time Observation Value Comments Source Systolic blood 2022-09-07 16:57:00 130 mm[Hg] Univer sity of pressure [place] [facility] Diastolic blood 2022-09-07 16:57:00 84 mm[Hg] Unive rsity of pressure [place] [facility] Heart rate 2022-09-07 16:55:00 77 /min [facility] [place] [facility] Body temperature 2022-09-07 16:55:00 36.11 Kayla [facility] [place] [facility] Respiratory rate 2022-09-07 16:55:00 18 /min [facility] [place] [facility] Body height 2022-09-07 16:55:00 182.9 cm [facility] [place] [facility] Body weight 2022-09-07 16:55:00 106.006 kg [facility] [place] [facility] BMI 2022-09-07 16:55:00 31.70 kg/m2 [facility] [place] [facility] Oxygen saturation in 2022-09-07 16:55:00 97 /min University of Arterial blood by [place] [facility] Pulse oximetry Branch Systolic blood 2022-08-07 19:58:00 134 mm[Hg] Univer sity of pressure [place] [facility] Diastolic blood 2022-08-07 19:58:00 79 mm[Hg] Unive rsity of pressure [place] [facility] Heart rate 2022-08-07 19:58:00 84 /min [facility] [place] [facility] Respiratory rate 2022-08-07 19:58:00 18 /min Univ ers[facility] [place] [facility] Body weight 2022-08-07 19:58:00 108.863 kg [facility] [place] [facility] BMI 2022-08-07 19:58:00 32.55 kg/m2 [facility] [place] [facility] Oxygen saturation in 2022-08-07 19:58:00 95 /min [facility] of Arterial blood by [place] Medi vidal Pulse oximetry Branch HEIGHT 2022-07-17 14:15:00 182.9 cm WEIGHT 2022-07-17 14:15:00 109.77 kg HEIGHT 2022-07-17 14:15:00 182.9 cm WEIGHT 2022-07-17 14:15:00 109.77 kg HEIGHT 2022-07-17 14:15:00 182.9 cm WEIGHT 2022-07-17 14:15:00 109.77 kg HEIGHT 2022-06-26 18:00:00 182.9 cm WEIGHT 2022-06-26 18:00:00 109.9 kg HEIGHT 2022-06-26 18:00:00 182.9 cm WEIGHT 2022-06-26 18:00:00 109.9 kg HEIGHT 2022-06-26 18:00:00 182.9 cm WEIGHT 2022-06-26 18:00:00 109.9 kg Body height 2022-08-14 11:00:00 182.9 cm [facility] Body weight 2022-08-14 11:00:00 109.77 kg [facility] BMI 2022-08-14 11:00:00 32.82 kg/m2 [facility] Systolic blood 2022-07-17 15:27:00 99 mm[Hg] [facility] Diastolic blood 2022-07-17 15:27:00 62 mm[Hg] [facility] Heart rate 2022-07-17 14:15:00 78 /min [facility] Body temperature 2022-07-17 14:15:00 36.61 Kayla [facility] Oxygen saturation in 2022-07-17 14:15:00 100 /min [facility] Arterial blood by Medical Ce nter Pulse oximetry Body height 2022-07-17 14:15:00 182.9 cm [facility] Body weight 2022-07-17 14:15:00 109.77 kg [facility] BMI 2022-07-17 14:15:00 32.82 kg/m2 [facility] Respiratory rate 2022-07-02 08:10:00 18 /min [facility] Systolic blood 2022-07-02 08:10:00 130 mm[Hg] [facility] Diastolic blood 2022-07-02 08:10:00 70 mm[Hg] [facility] Heart rate 2022-07-02 08:10:00 80 /min [facility] Body temperature 2022-07-02 08:10:00 36.17 Kayla [facility] Oxygen saturation in 2022-07-02 08:10:00 100 /min [facility] Arterial blood by Medical Ce nter Pulse oximetry Body height 2022-06-30 09:20:00 182.9 cm [facility] Body weight 2022-06-30 09:20:00 109.9 kg [facility] BMI 2022-06-30 09:20:00 32.86 kg/m2 [facility] Procedures Procedure Date / Time Performing Source Performed Clinician AUTHORIZATION FOR RELEASE OF PHI 2022-09-07 [facility] of 06:01:00 Unassigned, No [facility] ESOPHAGOGASTRODUODENOSCOPY 2022-08-15 Karen Moralez ISABEL Mahoney 11:00:00 [facility] EXTERNAL PROVIDER RECORDS 2022-08-08 [facility] sity of 05:01:00 Unassigned, No [facility] THYROID STIMULATING HORMONE 2022-08-07 Min Iverson [facility] [place] ersity of 22:09:00 [facility] COMP. METABOLIC PANEL (68977) 2022-08-07 Min Iverson iversity of 22:09:00 [facility] LIPID PANEL (13832)(TOTAL 2022-08-07 Min Iverson [facility] of CHOLESTEROL, TRIGLYCERIDES, HDL) 22:09:00 [facility] HCV ANTIBODY 2022-08-07 Min [place]verson [place] of 22:09:00 [facility] PAIN MANAGEMENT AGREEMENT & 2022-08-07 [facility] ersity of INFORMED CONSENT 05:01:00 Unassigned, No [facility] EXTERNAL PROVIDER RECORDS 2022-07-31 [facility] 05:01:00 Unassigned, No [facility] BASIC METABOLIC PANEL 2022-07-17 Jaylin Millard [facility] 16:02:00 [facility] HEPATIC FUNCTION PANEL 2022-07-17 Jaylin Millard [facility] 16:02:00 [facility] CBC W/PLT COUNT & AUTO 2022-07-17 Jaylin Millard [facility] DIFFERENTIAL 16:02:00 [facility] PROTHROMBIN TIME/INR 2022-07-17 [facility] 16:02:00 [facility] MAGNESIUM 2022-07-17 [facility] 16[facility]02:00 [facility] PHOSPHORUS 2022-07-[address] [facility] 16:02:00 [facility] CBC W/PLT COUNT & AUTO 2022-07-[address] [facility] DIFFERENTIAL 16:02:00 [facility] POCT-GLUCOSE METER 2022-07-02 Gadicherla, Ana Rosa [facility] 08:44:00 [facility] COMPREHENSIVE METABOLIC PANEL 2022-07-02 Nalam, Ratna Alia [facility] 03:22:00 [facility] PROTHROMBIN TIME/INR 2022-07-02 Nalam, Ratna Alia [facility] 03:22:00 [facility] CBC W/PLT COUNT & AUTO 2022-07-02 Nalam, Ratna Alia [facility] DIFFERENTIAL 03:22:00 [facility] CBC W/PLT COUNT & AUTO 2022-07-02 Nalam, Ratna Alia [facility] DIFFERENTIAL 03:22:00 [facility] POCT-GLUCOSE METER 2022-07-01 Gadicherla, Ana Rosa [facility] 22:20:00 [facility] POCT-GLUCOSE METER 2022-07-01 Gadicherla, Ana Rosa [facility] 15:31:00 [facility] POCT-GLUCOSE METER 2022-07-01 Gadicherla, Ana Rosa [facility] 11:14:00 [facility] MR ABDOMEN WITH & WITHOUT IV 2022-07-01 Anudu, Azubuogu [facility] CONTRAST 11:01:00 [facility] POCT-GLUCOSE METER 2022-07-01 Gadicherla, Ana Rosa [facility] 07:39:00 [facility] POCT-GLUCOSE METER 2022-07-01 Gadicherla, Ana Rosa [facility] 06:29:00 [facility] COMPREHENSIVE METABOLIC PANEL 2022-07-01 Nalam, Ratna Aila [facility] 04:11:00 [facility] CBC W/PLT COUNT & AUTO 2022-07-01 Nalam, Ratna Alia [facility] DIFFERENTIAL 04:11:00 [facility] CBC W/PLT COUNT & AUTO 2022-07-01 Nalam, Ratna Alia [facility] DIFFERENTIAL 04:11:00 [facility] PROTHROMBIN TIME/INR 2022-07-01 Nalam, Ratna Alia [facility] 04:05:00 [facility] POCT-GLUCOSE METER 2022-06-30 Gadicherla, Ana Rosa [facility] 23:42:00 [facility] POCT-GLUCOSE METER 2022-06-30 Gadicherla, Ana Rosa [facility] 17:00:00 [facility] POCT-GLUCOSE METER 2022-06-30 Gadicherla, Ana Rosa [facility] 13:08:00 [facility] THROMBOELASTOGRAPH (TEG) 2022-06-[address] [facility] 07:23:00 [facility] COMPREHENSIVE METABOLIC PANEL 2022-06-30 Taraam, Ratna Alia [facility] 05:58:00 [facility] PROTHROMBIN TIME/INR 2022-06-30 Nalam, Ratna Alia [facility] 05:58:00 [facility] CBC W/PLT COUNT & AUTO 2022-06-30 Nalam, Ratna Alia [facility] DIFFERENTIAL 05:58:00 [facility] HEPATITIS B PCR, QUANTITATIVE 2022-06-30 [address] [facility] 05:58:00 [facility] POCT-GLUCOSE METER 2022-06-30 Eduarjewel, Ana Rosa [facility] 05:58:00 [facility] TYPE AND SCREEN, AUTOMATED 2022-06-30 Gadicherla, Ana Rosa [facility] 05:58:00 [facility] CBC W/PLT COUNT & AUTO 2022-06-30 Nalam, Ratna Alia [facility] DIFFERENTIAL 05:58:00 [facility] FIBRINOGEN 2022-06-[address] [facility] 05:57:00 [facility] PROTHROMBIN TIME/INR 2022-06-[address] 05:57:00 [facility] POCT-GLUCOSE METER 2022-06-30 Evanicherjewel, Ana Rosa [facility] 02:10:00 [facility] POCT-GLUCOSE METER 2022-06-30 Evanicherla, Ana Rosa [facility] 00:22:00 [facility] POCT-GLUCOSE METER 2022-06-29 Gadicherjewel, Ana Rosa [facility] 17:47:00 [facility] HEMOGLOBIN AND HEMATOCRIT 2022-06-29 Gadicherla, Ana Rosa [facility] 16:55:00 [facility] PREPARE LEUKO-REDUCED RBC 2022-06-29 [facility] 13:21:00 [facility] POCT-GLUCOSE METER 2022-06-29 Gadicherla, Ana Rosa [facility] 12:17:00 [facility] 2D ECHO W/ DOPPLER (CW/PW/COLOR) 2022-06-29 Jack Bonner Ang [facility] 09:41:00 [facility] POCT-GLUCOSE METER 2022-06-29 Nalam, Ratna Alia [facility] 06:29:00 [facility] PROTHROMBIN TIME/INR 2022-06-29 Lernor, Seferino [facility] 04:11:00 [facility] APTT 2022-06-29 Lernor, Seferino [facility] 04:11:00 [facility] CBC (HEMOGRAM ONLY) 2022-06-29 Lernor, Seferino [facility] 04:11:00 [facility] COMPREHENSIVE METABOLIC PANEL 2022-06-29 Lernor[facility] 04:11:00 [facility] MAGNESIUM 2022-06-29 Lernor, Seferino [facility] 04:11:00 [facility] CALCIUM, IONIZED 2022-06-29 Lernor, Seferino [facility] 04:11:00 [facility] CBC W/PLT COUNT & AUTO 2022-06-[address] [facility] DIFFERENTIAL 04:11:00 [facility] CBC W/PLT COUNT & AUTO 2022-06-[address] [facility] DIFFERENTIAL 04:11:00 [facility] POCT-GLUCOSE METER 2022-06-28 Nalam, Ratna Alia [facility] 22:25:00 [facility] POCT-GLUCOSE METER 2022-06-28 Nalam, Ratna [facility]ia [facility] 15:48:00 [facility] US ABDOMEN COMPLETE 2022-06-28 Arleth, Brooks [facility] 11:59:00 [facility] HEMOGLOBIN AND HEMATOCRIT 2022-06-28 Lernor, Seferino [facility] 10:48:00 [facility] DRUG SCREEN, URINE, TRANSPLANT 2022-06-[address] [facility] 10:40:00 [facility] POCT-GLUCOSE METER 2022-06-28 Arleth, Brooks [facility] 10:36:00 [facility] POCT-GLUCOSE METER 2022-06-28 Arleth, Brooks [facility] 08:50:00 [facility] PROTHROMBIN TIME/INR 2022-06-28 Lernor, Seferino [facility] 05:35:00 [facility] APTT 2022-06-28 Lernor, Seferino [facility] 05:35:00 [facility] CBC (HEMOGRAM ONLY) 2022-06-28 Lernor, Seferino [facility] 05:35:00 [facility] COMPREHENSIVE METABOLIC PANEL 2022-06-28 Lernor[facility]ino [facility] 05:35:00 [facility] MAGNESIUM 2022-06-28 Lernor, Seferino [facility] 05:35:00 [facility] POCT-GLUCOSE METER 2022-06-27 Arleth, Brooks [facility] 22:53:00 [facility] HEMOGLOBIN AND HEMATOCRIT 2022-06-27 Arleth, Brooks [facility] 19:49:00 [facility] HEPATITIS C PCR, QUANTITATIVE 2022-06-[address] [facility] 17:03:00 [facility] PHOSPHATIDYLETHANOL, BLOOD 2022-06-27 [facility] 17:03:00 [facility] ANTI-MITOCHONDRIAL AB, REFLEX TO 2022-06-[address] [facility] TITER 17:01:00 [facility] ALPHA FETOPROTEIN (AFP), TUMOR 2022-06-[address] [facility] MARKER 17:01:00 [facility] HEPATITIS C ANTIBODY 2022-06-[address] [facility] 17:01:00 [facility] HEPATITIS A ANTIBODY, IGG 2022-06-[address] [facility] 17:01:00 [facility] HEPATITIS A ANTIBODY, IGM 2022-06-[address] [facility] 17:01:00 [facility] HEPATITIS B SURFACE ANTIBODY 2022-06-[address] [facility] 17:01:00 [facility] HEPATITIS B CORE ANTIBODY, TOTAL 2022-06-[address] [facility] 17:01:00 [facility] HEPATITIS B SURFACE ANTIGEN 2022-06-27 Ha Jack Bowers [facility] 17:01:00 [facility] ANTI-NUCLEAR ANTIBODY (BEATA) 2022-06-27 Ha Jack Bowers [facility] 17:01:00 [facility] HC LAB FLUORESC AB SCRN EA AB 2022-06-27 aH Jack Bowers [facility] 17:01:00 [facility] ACTIN (SMOOTH MUSCLE) ANTIBODY, 2022-06-27 Ha Jack Bowers [facility] IGG 17:01:00 [facility] CERULOPLASMIN 2022-06-27 Ha Jack Bowers [facility] 17:01:00 [facility] BQHFZ-8-XSCTGONILLD\\, SERUM 2022-06-27 Ha Jack Bowers [facility] 17:01:00 [facility] IRON, TIBC, % SAT. (WITHOUT 2022-06-27 Ha Jack Bowers [facility] FERRITIN) 17:01:00 [facility] FERRITIN 2022-06-27 Ha Jack Bowers [facility] 17:01:00 [facility] MITOCHONDRIAL AB SCREEN 2022-06-27 Ha [address]ers [facility] 17:01:00 [facility] MITOCHONDRIAL AB TITER 2022-06-27 [address] [facility] 17:01:00 [facility] POCT-GLUCOSE METER 2022-06-27 Arleth, Brooks [facility] 16:19:00 [facility] POCT-GLUCOSE METER 2022-06-27 Arleth, Brooks [facility] 11:35:00 [facility] HEMOGLOBIN AND HEMATOCRIT 2022-06-27 Larisa [facility]ardenas [facility] 11:23:00 [facility] FIBRINOGEN 2022-06-[address] [facility] 11:23:00 [facility] REPORT OF PROCEDURE - ENDOSCOPY 2022-06-27 Me, Carolin [facility] URL 10:36:47 [facility] ESOPHAGOGASTRODUODENOSCOPY, WITH 2022-06-[address] [facility] VARICEAL BANDING 09:58:00 [facility] POCT-GLUCOSE METER 2022-06-27 Arleth, Brooks [facility] 06:05:00 [facility] PROTHROMBIN TIME/INR 2022-06-27 Lernor, Seferino [facility] 03:03:00 [facility] APTT 2022-06-27 Lernor, Seferino [facility] 03:03:00 [facility] CBC (HEMOGRAM ONLY) 2022-06-27 Lernor, Seferino [facility] 03:03:00 [facility] COMPREHENSIVE METABOLIC PANEL 2022-06-27 [facility]ernor[facility] 03:03:00 [facility] MAGNESIUM 2022-06-27 Lernor, Seferino [facility] 03:03:00 [facility] POCT-GLUCOSE METER 2022-06-26 Arleth, Brooks [facility] 23:56:00 [facility] HEMOGLOBIN AND HEMATOCRIT 2022-06-26 Cardenas, Larisa [facility] 23:43:00 [facility] ABORH, MANUAL 2022-06-[address] [facility] 23:43:00 [facility] ECG 12-LEAD 2022-06-26 Unknown, Hl7 [facility] 19:35:41 [facility] CBC W/PLT COUNT & AUTO 2022-06-26 Patni, Richard [facility] DIFFERENTIAL 19:16:00 [facility] COMPREHENSIVE METABOLIC PANEL 2022-06-26 Patni, Richard [facility] 19:16:00 [facility] PROTHROMBIN TIME/INR 2022-06-26 Patni, Richard [facility] 19:16:00 [facility] APTT 2022-06-26 Patni, Richard [facility] 19:16:00 [facility] LIPASE 2022-06-26 Patni, Richard [facility] 19:16:00 [facility] CREATINE KINASE (CK) 2022-06-26 Patni, Richard [facility] 19:16:00 [facility] HIGH SENSITIVITY TROPONIN I 2022-06-[address] [facility] 19:16:00 [facility] Center ETHANOL 2022-06-[address] [facility] 19:16:00 [facility] TYPE AND SCREEN, AUTOMATED 2022-06-26 [facility]ino [facility] 19:16:00 [facility] CBC W/PLT COUNT & AUTO 2022-06-[address] [facility] DIFFERENTIAL 19:16:00 [facility] HEMOGLOBIN AND HEMATOCRIT 2022-06-[address] [facility] 18:13:[address] [facility] CT LOW DOSE LUNG NODULE 2022-06-05 Linda Roman ty of 15:47:37 [facility] CONSENT/REFUSAL FOR DIAGNOSIS AND 2022-06-05 Doctor University of TREATMENT 15:24:44 Unassigned, No [facility] Name Branch CONSENT/REFUSAL FOR DIAGNOSIS AND 2022-06-05 Doctor University of TREATMENT 15:24:43 Unassigned, No [facility] Name Branch ASSIGNMENT OF BENEFITS 2022-06-05 Doctor [facility] y of 15:24:26 Unassigned, No [facility] Plan of Care Planned Activity Planned Date Details Comments Source Future Scheduled 2030-05-27 Screening for malignant [facility] Test 00:00:00 neoplasm of colon Medical Ce nter (procedure) [code = 195625057] Future Scheduled 2030-05-27 Screening for malignant [facility] Test 00:00:00 neoplasm of colon Medical Ce nter (procedure) [code = 569612724] Future Scheduled 2030-05-27 Screening for malignant [facility] Test 00:00:00 neoplasm of colon Medical Ce nter (procedure) [code = 871023516] Future Scheduled 2030-05-27 Screening for malignant [facility] Test 00:00:00 neoplasm of colon Medical Ce nter (procedure) [code = 052398456] Future Scheduled 2030-05-27 Screening for malignant [facility] Test 00:00:00 neoplasm of colon Medical Ce nter (procedure) [code = 662272243] Future Scheduled 2030-05-27 Screening for malignant [facility] Test 00:00:00 neoplasm of colon Medical Ce nter (procedure) [code = 276656063] Future Scheduled 2025-08-07 Lipid panel (procedure) [facility] Test 00:00:00 [code = 55258220] Medical Ce nter Future Scheduled 2023-08-[address] [facility] Test 00:00:00 Counseling and Medical Cente r Screening (12+) [code = Tobacco Cessation Counseling and Screening (12+)] Future Scheduled 2022-06-21 INFLUENZA VACCINE (#1) [facility] 00:00:00 [code = INFLUENZA Medical Ce nter VACCINE (#1)] Future Scheduled 2022-06-21 INFLUENZA VACCINE (#1) [facility] 00:00:00 [code = INFLUENZA Medical Ce nter VACCINE (#1)] Future Scheduled 2022-06-21 INFLUENZA VACCINE (#1) [facility] 00:00:00 [code = INFLUENZA Medical Ce nter VACCINE (#1)] Future Scheduled 2021-10-[address] [facility] Test 00:00:00 (12+) [code = Medical Center DEPRESSION SCREENING (12+)] Future Scheduled 2021-10-[address] [facility] Test 00:00:00 (12+) [code = Medical Center DEPRESSION SCREENING (12+)] Future Scheduled 2021-10-[address] [facility] Test 00:00:00 (12+) [code = Medical Center DEPRESSION SCREENING (12+)] Future Scheduled 2015 SHINGLES VACCINES ([address] [facility] 00:00:00 [facility] Future Scheduled 2015 SHINGLES VACCINES ([address] [facility] Test 00:00:00 2) [code = SHINGLES Medical Center VACCINES (1 of 2)] Future Scheduled 2015 SHINGLES VACCINES ([address] [facility] 00:00:00 2) [facility] of 2)] Future Scheduled 2000 Lipid panel (procedure) [facility] 00:00:00 [code = 11105723] Medical Ce nter Future Scheduled 2000 Lipid panel (procedure) [facility] 00:00:00 [code = 92008904] Medical Ce nter Future Scheduled 1984 DTAP/TDAP/TD VACCINES [facility] 00:00:00 (1 - Tdap) [code = Medical C enter DTAP/TDAP/TD VACCINES (1 - Tdap)] Future Scheduled 1984 DTAP/TDAP/TD VACCINES [facility] 00:00:00 (1 - Tdap) [code = Medical C enter DTAP/TDAP/TD VACCINES (1 - Tdap)] Future Scheduled 1984 DTAP/TDAP/TD VACCINES [facility] 00:00:00 (1 - Tdap) [code = Medical C enter DTAP/TDAP/TD VACCINES (1 - Tdap)] Future Scheduled [address] [facility] Test 00:00:00 0-64 YRS (1 - PCV) Medical C enter [code = PNEUMOCOCCAL VACCINE 0-64 YRS (1 - PCV)] Future Scheduled 1965 COVID-19 VACCINE (#1) [facility] 00:00:00 [code = COVID-[address] VACCINE (#1)] Future Scheduled 1965 COVID-19 VACCINE (#1) [facility] 00:00:00 [code = COVID-[address] VACCINE (#1)] Future Scheduled 1965 COVID-19 VACCINE (#1) [facility] 00:00:00 [code = COVID-[address] VACCINE (#1)] Future Scheduled 1965 CT Colonography (combo) [facility] 00:00:00 [code = CT Colonography [facility] (combo)] Future Scheduled 1965 Screening for malignant [facility] Test 00:00:00 neoplasm of colon Medical Ce nter (procedure) [code = 082940384] Future Scheduled 1965 Screening for malignant [facility] Test 00:00:00 neoplasm of colon Medical Ce nter (procedure) [code = 110066630] Future Scheduled 1965 Sigmoidoscopy [code = [facility] Sigmoidoscopy] Medical Cente r Future Scheduled 1965 CT Colonography (combo) [facility] 00:00:00 [code = CT Colonography [facility] (combo)] Future Scheduled 1965 Screening for malignant [facility] Test 00:00:00 neoplasm of colon Medical Ce nter (procedure) [code = 705697182] Future Scheduled 1965 Screening for malignant [facility] Test 00:00:00 neoplasm of colon Medical Ce nter (procedure) [code = 535218114] Future Scheduled 1965 Sigmoidoscopy [code = [facility] 00:00:00 Sigmoidoscopy] Medical Cente r Future Scheduled 1965 CT Colonography (combo) [facility] 00:00:00 [code = CT [facility] ([facility])] Future Scheduled 1965 Screening for malignant [facility] Test 00:00:00 neoplasm of colon Medical Ce nter (procedure) [code = 135288695] Future Scheduled 1965 Screening for malignant [facility] Test 00:00:00 neoplasm of colon Medical Ce nter (procedure) [code = 632865171] Future Scheduled 1965 Sigmoidoscopy [facility]code = [facility] Sigmoidoscopy] Medical Cente r Encounters Start End Encounter Admission Attending Care Care Encounter Source Date/Time Date/Time Type Type Clinicians Facility Department ID 2022-07-19 Outpatient [facility] Surgery [id number] SLE 10:50:57 [facility] 2022-12-25 2022-12-25 [facility] [id number] Univers 10:40:00 10:40:00 BAR wilkes of [facility] 2022-09-24 2022-09-24 Telephone [facility] 1.2.840.114 [id number] Univers 00:00:00 00:00:00 Bar GANN 350.1.13.10 i Chuck 4.2.7.2.686 Graham MARTINEZ [id number] [address] 2022-09-24 2022-09-24 Patient Rehana [facility] 1.2.840.114 [id number] Univers 00:00:00 00:00:00 Secure Msg Chanel PONCEPEC 350.1.13.10 [place] [id number] [facility] [address] [facility] 2022-09-19 2022-09-19 Outpatient R TRINO [facility] [id number] Univers 10:40:00 10:40:[address] [facility] 2022-09-16 2022-09-16 [email or web address] 1.2.840.114 [id number] Univers 00:00:00 00:00:00 Bar GANN 350.1.13.10 i [place] [id number] [address] 2022-09-16 2022-09-16 Ref[email or web address] 1.2.840.114 [id number] Univers 00:00:00 00:00:00 Bar GANN 350.1.13.10 i ty of [facility] 4.2.7.2.[place] [id number] [address] 2022-09-16 2022-09-16 [email or web address] 1.2.840.114 [id number] Univers 00:00:00 00:00:00 [facility] 350.1.13.10 it y of [facility] 4.2.7.2.686 Juma as PRANAV?BLEA [id number] [address] MEDICAL OFFICE BUILDING 2022-09-12 2022-09-12 [facility]phone [facility] 1.2.840.114 [id number] Univers 00:00:00 00:00:00 Bar GANN 350.1.13.10 i ty [place] [id number] [address] 2022-09-07 2022-09-07 [facility] [id number] Univers 10:40:00 11:52:[address] [facility] 2022-09-07 2022-09-07 Office [email or web address] 1.2.840.[id number] [facility] 10:40:00 11:52:38 Visit Bar GANN 350.1.13.10 i ty of [place] [id number] Wy dic[address] 2022-09-07 2022-09-07 Telephone [facility] 1.2.840.114 [id number] Univers 00:00:00 00:00:00 Bar GANN 350.1.13.10 i [place] 4[place] [phone] [address] 2022-09-07 2022-09-07 Orders Doctor FELISHA 1.2.840.[id number] [facility] 00:00:00 00:00:00 Only Unassigned, ANUJ 350.1.13.10 ity of [place]ice [facility] 4.2.7.2.686 Juma as [id number] [address] 2022-09-07 2022-09-07 Telephone [facility] 1.2.840.114 [id number] Univers 00:00:00 00:00:00 Bar GANN 350.1.13.10 i [place] [id number] [address] 2022-09-04 2022-09-04 Abstract Pam [facility] [id number] [facility] 00:00:00 00:00:00 [facility] 2022-09-04 2022-09-04 Telephone [facility] 1.2.840.114 [id number] Univers 00:00:00 00:00:00 Bar GANN 350.1.13.10 i [place] 4[place].2.[place] [id number] [address] 2022-09-03 2022-09-03 Telephone [facility] 1.2.840.114 [id number] Univers 00:00:00 00:00:00 Bar GANN 350.1.13.10 i [place] 4[place]2.[place] [id number] Wy dical NAL [address] [place] [address] 2022-08-31 2022-08-31 Outpatient R [facility] [id number] Univers 14:20:00 14:20:00 [facility] 2022-08-31 2022-08-31 Outpatient R [facility] [id number] Univers 14:20:00 14:20:00 [facility] 2022-08-26 2022-08-26 Refill [facility] 1.2.840.114 [id number] Univers 00:00:00 00:00:00 Bar GANN 350.1.13.10 i [place] 4[place].7.2.[place] [id number] Wy dical NAL [address] [place] [address] 2022-08-22 2022-08-22 [facility] [id number] 00:00:00 00:00:00 [facility] 2022-08-21 2022-08-21 [facility] 1.2.840.114 [id number] Univers 00:00:00 00:00:00 Bar GANN 350.1.13.10 i [place] [id number] Wy dical NAL [address] [place] [address] 2022-08-14 2022-08-14 Outpatient EL [facility] [id number] [facility] 13:56:39 13:56:39 2022-08-14 2022-08-14 [facility] [id number] 11:00:00 11:00:00 [facility] 2022-08-14 2022-08-14 Outpatient EL [facility] [id number] [facility] 00:00:00 00:00:00 2022-08-14 2022-08-14 [facility] [id number] [facility] 00:[facility]00 00:00:00 [facility] 2022-08-10 2022-08-10 Outpatient R REHANA [facility] [id number] Univers 11:30:00 11:30:[address] [facility] 2022-08-08 2022-08-08 Orders Doctor FELISHA 1.2.840.114 [id number] Univers 00:00:00 00:00:00 Only Unassigned, ANUJ 350.1.13.10 ity of [place] HOSPITAL 4.2.7.2.686 Juma as [id number] [address] 2022-08-07 2022-08-07 Cdl Instructor Celestino, Adc Lab Main [facility] 1.2.8 40.114 [id number] Univers 17:00:00 17:15:00 Visit Bar Jameson 350.1.13.10 ity of [place] [id number] Wy dical NAL 353 [facility] 2022-08-07 2022-08-07 Outpatient [facility] [id number] Univers 14:40:00 16:43:[address] [facility] 2022-08-07 2022-08-07 Office [facility] 1.2.840.114 [id number] Univers 14:40:00 16:43:40 Visit Bar GANN 350.1.13.10 i ty of [place].7.2.[place] [id number] Wy dical NAL 044 [facility] 2022-08-07 2022-08-07 Orders Doctor FELISHA 1.2.840.114 [id number] Univers 00:00:00 00:00:00 Only Unassigned, ANUJ 350.1.13.10 ity of [place] HOSPITAL 4.2.7.2.686 Juma as [id number] [address] 2022-08-03 2022-08-03 Telephone [facility] 1.2.840.114 [id number] Univers 00:00:00 00:00:00 Bar GANN 350.1.13.10 i [place] [id number] Wy dical NAL 044 [facility] 2022-08-03 2022-08-03 Telephone [facility] 1.2.840.114 [id number] Univers 00:00:00 00:00:00 Bar GANN 350.1.13.10 i ty [place].7.2.[place] [id number] Wy dical NAL [address] [place] [address] 2022-07-31 2022-07-31 Outpatient EL [facility] [id number] [facility] 00:00:00 00:00:00 2022-07-31 2022-07-31 Orders Doctor FELISHA 1.2.840.114 [id number] Univers 00:00:00 00:00:00 Only Unassigned, ANUJ 350.1.13.10 ity of [place] [facility] 4.2.7.2.686 Juma as [id number] [address] 2022-07-31 2022-07-31 Telephone [facility] 1.2.840.114 [id number] Univers 00:00:00 00:00:00 Bar GANN 350.1.13.10 i ty [place] [id number] Wy dical NAL [address] [place] [address] 2022-07-30 2022-07-30 Telephone [facility] 1.2.840.114 [id number] Univers 00:00:00 00:00:00 Bar GANN 350.1.13.10 i ty [place].7.2.[place] [id number] Wy dical NAL [address] [place] [address] 2022-07-26 2022-07-26 Emergency E DANIEL, MHBL MHBL [id number] MHBL 13:53:00 19:44:00 EDIN 2022-07-26 2022-07-26 Outpatient R TRINO [facility] [id number] Univers 10:40:00 10:40:[address] [facility] 2022-07-20 2022-07-20 Outpatient R JULIUS BRENNAN [facility] [id number] Univers 14:30:00 14:30:00 JULIUS BRENNAN [facility] 2022-07-19 2022-07-19 [facility] [id number] 00:00:00 00:00:00 [facility] 2022-07-19 2022-07-19 Abstract Pam [facility] [id number] 00:00:00 00:00:00 [facility] 2022-07-18 2022-07-18 [facility] [id number] [facility] 13:40:00 13:40:00 BAR [facility] 2022-07-17 2022-07-17 [facility] [id number] 14:00:00 15:00:00 Visit [facility] 2022-07-17 2022-07-17 Office [facility] [id number] 14:00:00 15:00:00 Visit [facility] 2022-07-17 2022-07-17 Outpatient [facility] [id number] [address] [place] [address] 13:37:03 13:37:03 SAMARIA 2022-07-16 2022-07-16 Refill Jorge A Lyons [facility] 1.2.840.114 [id number] Univers 00:00:00 00:00:00 HEALTH 350.1.13.10 it y of [place] 4.2.7.2.686 Juma as PRANAV?BLEA [id number] Wy vadim RICHARDSONEY [address] [facility] OFFICE BUILDING 2022-07-16 2022-07-16 Refill [email or web address] 1.2.840.114 [id number] Univers 00:00:00 00:00:00 Bar GANN 350.1.13.10 i ty of [place] [id number] Wy vadim [place] [address] Branch BUILDING 2022-07-13 2022-07-13 Telephone Inez [facility] [id number] 00:00:00 00:00:00 [facility] 2022-07-13 2022-07-13 Telephone Inez [facility] [id number] 00:00:00 00:00:00 [facility] 2022-06-26 2022-07-02 Inpatient ER [facility] Medical ICU [id number] [facility] 17:43:00 13:14:00 [facility] 2022-06-26 2022-07-02 [facility] [id number] 17:43:00 13:14:00 Encounter Ratna Valencia [facility] 2022-06-26 2022-07-02 Hospital ER [facility] [id number] 17:43:00 13:14:00 Encounter Ratna Valencia [facility] 2022-07-02 2022-07-02 Travel [facility] [id number] [facility] 00:00:00 00:00:00 [facility] 2022-07-02 2022-07-02 Travel [facility] [id number] [facility] 00:00:00 00:00:00 [facility] 2022-06-27 2022-06-27 Anesthesia Karime [facility] [id number] 09:58:00 10:55:00 Event [facility] 2022-06-27 2022-06-27 Anesthesia Karime [facility] [id number] 09:58:00 10:55:00 Event [place] 2022-06-27 2022-06-27 Surgery Em, [facility] [id number] 09:02:00 09:57:00 Carolin Iniguez [facility] 2022-06-27 2022-06-27 Surgery Em [facility] [id number] 09:02:00 09:57:00 Carolin Iniguez [facility] 2022-06-26 2022-06-26 Outpatient [facility] [id number] [facility] 00:00:00 23:59:00 Ismael Medicin e 2022-06-26 2022-06-26 Outpatient Artie KRUEGER [facility] [id number] [facility] 11:30:00 11:30:[address] [facility] 2022-06-26 2022-06-26 Outpatient CHANEL TOLENTINO [id number] Chanel 00:00:00 00:00:00 RICHARD dean 2022-06-26 2022-06-26 [id number] [id number] 00:[facility]00 00:00:00 [facility] 2022-06-26 2022-06-26 [facility] [id number] [facility] 00:00:00 00:00:00 [facility] 2022-06-26 2022-06-26 [facility] [id number] [facility] 00:00:00 00:00:00 [facility] 2022-06-26 2022-06-26 [facility] [id number] [facility] 00:00:00 00:00:00 [facility] 2022-06-08 2022-06-08 Patient Jorge A Lyons [facility] [id number] [place] [address] 00:00:00 00:00:00 Secure Msg PRIMARY [id number] ity of CARE [id number] Graham CAMERON [id number] [place] [id number] [address] 2022-06-08 2022-06-08 [email or web address] [id number] [facility] 00:00:00 00:00:00 Bar GANN [id number] i ty of [id number] PROF[place] [id number] Wy dical NAL 044 Branch BUILDING 2022-06-05 2022-06-05 Outpatient R LINDA ROMAN [facility] 10 [id number] Univers 10:24:39 23:59:00 LINDA ROMAN i ty of [facility] 2022-06-05 2022-06-05 Hospital [email or web address] 1.2.840.114 [id number] Univers 10:00:00 23:59:00 Encounter Linda SANJUANITA 350.1.13.10 [place] [id number] [address] 2022-06-01 2022-06-01 Outpatient R TRINO [facility] [id number] Univers 08:00:00 08:00:00 PETER ity of [facility] 2022-05-18 2022-05-18 Telephone [facility] 1.2.821.304 [id number] Univers 00:00:00 00:00:00 PRIMARY 350.1.13.10 it y [place] [id number] Wy dical [address] 2022-05-15 2022-05-15 Refill [facility] 1.2.840.114 [id number] Univers 00:00:00 00:00:00 HEALTH 350.1.13.10 it y of [place] 4.2.7.2.686 Juma as PRANAV?BLEA [id number] Wy dical KNEY [address] MEDICAL OFFICE BUILDING 2022-05-11 2022-05-11 Patient [facility] 1.2.840.114 [id number] Univers 00:00:00 00:00:00 Secure Msg PRIMARY 350.1.13.10 it[place] [id number] Wy dicnd [address] 2022-05-02 2022-05-02 Office [email or web address] 1.2.840.114 [id number] Univers 13:15:00 13:30:00 Visit Genesis Dean [facility] 350.1.13.10 ity of [place].2.[place] [facility] [id number] [facility] PRIMARY & [address] SPECIALTY CARE 2022-05-02 2022-05-02 Outpatient R GEOR[place] [facility] [id number] Univers 13:15:00 13:15:[address] [facility] 2022-05-02 2022-05-02 [facility] [id number] Univers 13:15:00 13:15:[address] [facility] 2022-05-02 2022-05-02 [facility] [id number] Univers 13:15:00 13:15:[address] [facility] 2022-05-02 2022-05-02 Patient Jorge A Lyons [facility] 1.2.840.114 [id number] Univers 00:00:00 00:00:00 Secure Msg PRIMARY 350.1.13.10 it[place] [id number] Wy dical [address] 2022-05-02 2022-05-02 Patient Jorge A Lyons [facility] 1.2.840.114 [id number] Univers 00:00:00 00:00:00 Secure Msg PRIMARY 350.1.13.10 it[place] [id number] Wy dical [address] 2022-04-30 2022-04-30 Emergency X EDA [facility] ERT [id number] Univers 11:19:00 15:46:[address] [facility] 2022-04-30 2022-04-30 Emergency [email or web address] 1.2.945.632 [id number] Univers 11:19:00 15:46:00 Nyasia S [place] 350.1.13.10 i ty [facility] 4.2.7.2.686 [place] [facility] [id number] [facility] [address] 2022-04-30 2022-04-30 Patient Trino [facility] 1.2.840.114 [id number] Univers 00:00:00 00:00:00 Secure Msg Bar GANN 350.1.13.10 [place] [id number] [address] 2022-04-27 2022-04-27 Outpatient [facility] [id number] Univers 08:00:00 09:00:[address] [facility] 2022-04-27 2022-04-27 Office [facility] 1.2.840.114 [id number] Univers 08:00:00 09:00:27 Visit Bar GANN 350.1.13.10 i [place] [id number] [address] 2022-04-27 2022-04-27 Outpatient [facility] [id number] Univers 08:00:00 08:00:00 BAR [facility] 2022-04-27 2022-04-27 [facility] 1.2.840.114 [id number] Univers 00:00:00 00:00:00 Bar GANN 350.1.13.10 i ty [facility] 4.2.7.2.[place] [phone] [address] 2022-04-17 2022-04-17 Outpatient [facility] [id number] Univers 14:30:00 14:30:[address] [facility] 2022-04-17 2022-04-17 Orders Doctor BAEZA 1.2.840.114 [id number] Univers 00:00:00 00:00:00 Only Unassigned, ANUJ 350.1.13.10 [facility] 4.2.7.2.686 Juma as [id number] [address] 2022-04-16 2022-04-16 Outpatient R [facility] [id number] Univers 11:30:00 11:46:28 [facility] 2022-04-16 2022-04-16 [facility] 1.2.840.114 [id number] Univers 11:30:00 11:46:28 Visit Estrada GANN 350.1.13.10 i ty [facility] 4.2.7.2.686 [place] [id number] Wy dical [facility] 204 [facility] 2022-04-16 2022-04-16 Outpatient R [facility] [id number] Univers 11:30:00 11:46:28 [facility] 2022-04-16 2022-04-16 Outpatient R [facility] [id number] Univers 11:30:00 11:30:00 [facility] 2022-04-12 2022-04-12 Patient [facility] 1.2.840.114 [id number] Univers 00:00:00 00:00:00 Secure Msg Bar SANJUANITA 350.1.13.10 [place] [id number] Wy dical [facility] 225 [facility] 2022-04-12 2022-04-12 Patient [facility] 1.2.840.114 [id number] Univers 00:00:00 00:00:00 Secure Msg Bar KAUFFMANTON 350.1.13.10 it[place] of [place] [id number] Wy dical NAL 044 [facility] 2022-04-12 2022-04-12 Patient [facility] 1.2.840.114 [id number] Univers 00:00:00 00:00:00 Secure Msg Bar [place] 350.1.13.10 it[place] of [place].2.[place] [id number] Wy dical NAL 044 [facility] 2022-04-12 2022-04-12 Patient [facility] 1.2.840.114 [id number] Univers 00:00:00 00:00:00 Secure Msg Peter [place] 350.1.13.10 it[place] [id number] Wy vadim NAL 044 [facility] 2022-04-06 2022-04-06 Office [facility] 1.2.840.114 [id number] Univers 09:30:00 10:30:12 Visit Evelyn [facility] 350.1.13.10 ity of [facility] 4.2.7.2.[address] [facility] s HEAVENER AT [id number] Wy vadim VINSON 188 [facility] 2022-04-06 2022-04-06 Outpatient R [facility] [id number] Univers 09:30:00 10:30:12 [facility] 2022-04-06 2022-04-06 Outpatient R [facility] [id number] Univers 09:30:00 09:30:00 [facility] 2022-04-02 2022-04-02 Patient [facility] 1.2.840.114 [id number] Univers 00:00:00 00:00:00 Secure Msg Bar GANN 350.1.13.10 ity [facility] 4.2.7.2.[address] [facility] s PROFESSIO [id number] Wy vadim LOPES [address] [place] [address] 2022-03-30 2022-03-30 [facility] 1.2.840.114 [id number] Univers 10:38:11 23:59:00 Encounter Bar GANN 350.1.13.10 it[place] of [place].2.686 [place] [id number] [facility] [address] 2022-03-30 2022-03-30 Outpatient R [facility] [id number] Univers 08:00:00 10:23:[address] [facility] 2022-03-30 2022-03-30 Office [facility] 1.2.840.114 [id number] Univers 08:00:00 10:23:21 Visit Bar GANN 350.1.13.10 i ty [facility] 4.2.7.2.686 [place] [id number] Wy dical NAL 044 [facility] 2022-03-22 2022-03-22 Outpatient R ROMAN LINDA [facility] [id number] Univers 13:30:00 14:29:06 LINDA ROMAN i ty of [facility] 2022-03-22 2022-03-22 Office [email or web address] 1.2.840.114 [id number] Univers 13:30:00 14:29:06 Visit Linda GANN 350.1.13.10 i ty of [facility] 4.2.7.2.686 [place] [id number] Wy dical NAL 085 [facility] 2022-03-22 2022-03-[address] [facility] 1.2.840.114 [id number] Univers 13:20:00 13:40:00 Visit Carmen GANN 350.1.13.10 ity of [facility] 4.2.7.2.686 [place] [id number] Wy dical NAL 059 [facility] 2022-03-22 2022-03-22 Outpatient R JUSTIN, [facility] [id number] Univers 13:20:00 13:20:00 CARMEN katrin o [facility] 2022-03-22 2022-03-22 Outpatient R JUSTIN, [facility] [id number] Univers 13:20:00 13:20:00 CARMEN daryly o [facility] 2022-03-22 2022-03-22 Refill Jorge A Lyons [facility] 1..840.114 [id number] Univers 00:00:00 00:00:00 HEALTH 350.1.13.10 it y of [facility] 4.2.7.2.686 Juma as PRANAV?BLEA [id number] Wy dicsaundra KNEY 220 [facility] 2022-03-22 2022-03-22 Refill Kishor [facility] 1.2.840.114 [id number] Univers 00:00:00 00:00:00 Min GANN 350.1.13.10 i ty of [place] 4.2.7.2.[place] [id number] Wy vadim LOPES [address] [place] [address] 2022-03-20 2022-03-20 Patient Kishor [facility] 1.2.840.114 [id number] Univers 00:00:00 00:00:00 Secure Msg iMn HEALTH 350.1.13.10 ity of [place] 4.2.7.2.686 Juma as PRANAV?BLEA [id number] Wy vadim TAVAREZ [address] [place] [address] OFFICE [facility] 2022-03-16 2022-03-16 Emergency X EVA, K [facility] ERT [id number] Univers 14:47:00 21:40:00 ity of [facility] 2022-03-16 2022-03-16 Emergency EvaDelon [facility] 1.2.840.114 [id number] Univers 14:47:00 21:40:00 Denice [facility] 350.1.13.10 i ty of [place]2.[place].2.[place] [id number] [address] 2022-03-16 2022-03-16 Outpatient R KISHOR [facility] [id number] Univers 11:30:00 11:30:[address] [facility] 2022-03-16 2022-03-16 Telephone Kishor [facility] 1.2.180.048 [id number] Univers 00:00:00 00:00:00 Min [facility] 350.1.13.10 it y of [place] 4.2.7.2.686 Juma as PRANAV?BLEA [id number] Wy vadim TAVAREZ [address] [place] [address] OFFICE [facility] 2022-03-07 2022-03-07 Emergency X CARRION, [facility] ERT [id number] Univers 09:48:00 14:47:[address] [facility] 2022-03-07 2022-03-07 Emergency [facility] 1.2.840.114 [id number] Univers 09:48:00 14:47:00 Joseflakita [facility] 350.1.13.10 i ty of [facility] 4.2.7.2.686 [place] [id number] [address] 2022-03-07 2022-03-07 Emergency X CARRION, [facility] ERT [id number] Univers 09:48:00 09:48:[address] [facility] 2022-03-07 2022-03-07 Outpatient R KISHOR [facility] [id number] Univers 08:30:00 09:29:[address] [facility] 2022-03-07 2022-03-07 Office [email or web address] 1.2.840.114 [id number] Univers 08:30:00 09:29:15 Visit Min [facility] 350.1.13.10 it y of [place] 4.2.7.2.686 Juma as PRANAV?BLEA [id number] [facility] [address] MEDICAL OFFICE [facility] 2022-03-07 2022-03-07 Outpatient R KISHOR [facility] [id number] Univers 08:30:00 09:29:[address] [facility] 2022-03-05 2022-03-05 Refill [facility] 1..840.114 [id number] Univers 00:00:00 00:00:00 HEALTH 350.1.13.10 it y of [place] 4.2.7.2.686 Juma as PRANAV?BLEA [id number] [facility] [address] MEDICAL OFFICE [facility] 2022-02-22 2022-02-22 Orders Doctor FELISHA 1.2.840.114 [id number] Univers 00:00:00 00:00:00 Only Unassigned, ANUJ 350.1.13.10 ity of Joice [facility] 4.2.7.2.686 Juam as [id number] [address] 2022-02-21 2022-02-21 Outpatient R JORGE A LYONS [facility] [id number] Univers 10:00:00 10:56:46 JORGE A LYONS [facility] 2022-02-21 2022-02-21 Office [facility] 1.2.840.114 [id number] Univers 10:00:00 10:56:46 Visit HEALTH 350.1.13.10 it y of [place] 4.2.7.2.686 Juma as PRANAV?BLEA [id number] [facility] [address] MEDICAL OFFICE BUILDING 2022-02-21 2022-02-21 Outpatient R JORGE A LYONS [facility] [id number] Univers 10:00:00 10:00:[address] [facility] 2022-02-16 2022-02-16 Outpatient R GERMÁN [facility] [id number] Univers 10:00:00 10:00:00 MONIQUE britosusan o f [facility] 2022-02-12 2022-02-12 Outpatient [facility] [id number] Univers 10:00:00 10:53:[address] [facility] 2022-02-12 2022-02-12 [facility] 1.2.840.114 [id number] Univers 10:00:00 10:53:31 Visit Min [facility] 350.1.13.10 it y of [place] 4.2.7.2.686 Juma as PRANAV?BLEA [id number] Wy henoksaundra TAVAREZ [address] [place] [address] OFFICE [facility] 2022-02-12 2022-02-12 Outpatient R JAMIEKamila [facility] [id number] Univers 10:00:00 10:53:[address] [facility] 2022-02-12 2022-02-12 Outpatient [facility] [id number] Univers 10:00:00 10:00:00 MIN [facility] Results Test Description Test Time Test Comments Results Result Comments Source HCV ANTIBODY 2022-08-08 06:52:12 Test Item Value Reference Range Interpretation Comme nts HCV Ab (test code = 55797-9) Negative HCV Semi-Quantitative (test code = 63750-2) [facility] [id number] 06:52:12 Test Item Value Reference Range Interpretation Comments HCV Ab (test code = 74341-6) Negative HCV Semi-Quantitative (test code = 80806-0) [facility] [id number] 00:33:05 Test Item Value Reference Range Interpretation Comments TSH (test code = See_Comment [Automated message] [id number]) The system [employer] generated this result transmitted ref erence range: 0.45 - 4 .70 mIU/L. The refe rence range was not u sed to interpret this result as normal/abnor mal. Lab Interpretation (test Normal code = 67516-7) [facility] [id number] 00:33:05 Test Item Value Reference Range Interpretation Comments TSH (test code = See_Comment [Automated message] [id number]) The system [employer] generated this result transmitted ref erence range: 0.45 - 4 .70 mIU/L. The refe rence range was not u sed to interpret this result as normal/abnor mal. Lab Interpretation (test Normal code = 10454-5) [facility] Center[facility] PANEL (44200)(TOTAL CHOLESTEROL, TRIGLYCERIDES, HDL)2022-08-08 00:04:19 Test Item Value Reference Range Interpretation Comments CHOL (test code = 190 mg/dL 120-200 5756570850) HDL (test code = 42 mg/dL See_Comment [Automated message] 6696970458) The system [employer] generated this result transmit freddy reference range : >=40. The refer ence range was not u sed to interpret th is result as normal/abnormal . HDLC RATIO (test code = See_Comment [Au tomated message] 4722846221) The system [employer] generated this result transmit freddy reference range : <=5.0. The refe rence range was not u sed to interpret th is result as normal/abnormal . TRIG (test code = 126 mg/dL 30-170 3795498483) LDL CHOL (test code = 123 mg/dL See_Comment [Auto mated message] 87706-9) The system [employer] generated this result transmit freddy reference range : <=160. The refe rence range was not u sed to interpret th is result as normal/abnormal . VLDL (test code = 25 mg/dL 5-60 4234671272) Lab Interpretation (test Normal code = 38756-8) [facility] (43044)(TOTAL CHOLESTEROL, TRIGLYCERIDES, HDL)2022-08-08 00:04:19 Test Item Value Reference Range Interpretation Comments CHOL (test code = 190 mg/dL 120-200 5833225181) HDL (test code = 42 mg/dL See_Comment [Automated message] 5215549659) The system [employer] generated this result transmit freddy reference range : >=40. The refer ence range was not u sed to interpret th is result as normal/abnormal . HDLC RATIO (test code = See_Comment [Au tomated message] 9347713392) The system [employer] generated this result transmit freddy reference range : <=5.0. The refe rence range was not u sed to interpret th is result as normal/abnormal . TRIG (test code = 126 mg/dL 30-170 1585472972) LDL CHOL (test code = 123 mg/dL See_Comment [Auto mated message] 92403-5) The system [employer] generated this result transmit freddy reference range : <=160. The refe rence range was not u sed to interpret th is result as normal/abnormal . VLDL (test code = 25 mg/dL 5-60 3624448513) Lab Interpretation (test Normal code = 84103-9) [facility]. METABOLIC PANEL (07341)2022-08-08 00:04:14 Test Item Value Reference Range Interpretation Comments NA (test code = 137 mmol/L 135-145 0648689786) K (test code = 4.5 mmol/L 3.5-5 0140121781) CL (test code = 100 mmol/L 98-108 2454247931) CO2 TOTAL (test code = 27 mmol/L 23-31 9002024847) AGAP (test code = 2-16 1953626632) BUN (test code = 6 mg/dL 7-23 L 4176378152) GLUCOSE (test code = 203 mg/dL 70-110 H 0060482166) CREATININE (test code = 0.71 mg/dL 0.6-1.25 5652828377) TOTAL BILI (test code = 0.5 mg/dL 0.1-1.3 1574835701) CALCIUM (test code = 9.8 mg/dL 8.6-10.6 4014578851) T PROTEIN (test code = 7.2 g/dL 6.3-8.2 5813272869) ALBUMIN (test code = 4.1 g/dL 3.5-5 5237571880) ALK PHOS (test code = 74 U/L 34-122 1412864005) ALTv (test code = 29 U/L 5-50 1742-6) AST(SGOT) (test code = 28 U/L 13-40 6711873905) eGFR (test code = mL/min/1.73m2 5484556958) LYNDSAY (test code = LYNDSAY) Association of Glomerular Filtration Rate (GFR) and Staging of Kidney Disease* + --+ --+ ------+| GFR (mL/min/1.73 m2) ?| With Kidney Damage ?| ?Without Kidney Damage+ --------+ --------+ +| ?>90 ?| ?Stage one ?| ? Normal ?+ ---+ ---+ -------+| ?60-89 ?| ?Stage two ?| ? Decreased GFR ? + --+ --+ ------+| ?30-59 ?| ?Stage three ?| ? Stage three ? + --+ --+ ------+| ?15-29 ?| ?Stage four ? | ? Stage four ?+ ---+ ---+ -------+| ?<15 (or dialysis) ? ?| ?Stage five ? | ? Stage five ?+ ---+ ---+ -------+ *Each stage assumes the associated GFR level has been in effect for at least three months. ?Stages 1 to 5, with or without kidney disease, indicate chronic kidney disease. Notes: Determination of stages one and two (with eGFR >59mL/min/1.73 m2) requires estimation of kidney damage for at least three months as defined by structural or functional abnormalities of the kidney, manifested by either:Pathological abnormalities or Markers of kidney damage (including abnormalities in the composition of the blood or urine or abnormalities in imaging tests). Lab Interpretation Abnormal (test code = 27350-3) [facility]. METABOLIC PANEL (38085)2022-08-08 00:04:14 Test Item Value Reference Range Interpretation Comments NA (test code = 137 mmol/L 135-145 6404245946) K (test code = 4.5 mmol/L 3.5-5 9635101323) CL (test code = 100 mmol/L 98-108 4310394722) CO2 TOTAL (test code = 27 mmol/L 23-31 6933798818) AGAP (test code = 2-16 2920323251) BUN (test code = 6 mg/dL 7-23 L 3887223471) GLUCOSE (test code = 203 mg/dL 70-110 H 5044419208) CREATININE (test code = 0.71 mg/dL 0.6-1.25 9724957327) TOTAL BILI (test code = 0.5 mg/dL 0.1-1.3 4590839702) CALCIUM (test code = 9.8 mg/dL 8.6-10.6 2066378900) T PROTEIN (test code = 7.2 g/dL 6.3-8.2 4183379102) ALBUMIN (test code = 4.1 g/dL 3.5-5 7625345924) ALK PHOS (test code = 74 U/L 34-122 8777929707) ALTv (test code = 29 U/L 5-50 2-6) AST(SGOT) (test code = 28 U/L 13-40 3612538096) eGFR (test code = mL/min/1.73m2 5718617839) LYNDSAY (test code = LYNDSAY) Association of Glomerular Filtration Rate (GFR) and Staging of Kidney Disease* + --+ --+ ------+| GFR (mL/min/1.73 m2) ?| With Kidney Damage ?| ?Without Kidney Damage+ --------+ --------+ +| ?>90 ?| ?Stage one ?| ? Normal ?+ ---+ ---+ -------+| ?60-89 ?| ?Stage two ?| ? Decreased GFR ? + --+ --+ ------+| ?30-59 ?| ?Stage three ?| ? Stage three ? + --+ --+ ------+| ?15-29 ?| ?Stage four ? | ? Stage four ?+ ---+ ---+ -------+| ?<15 (or dialysis) ? ?| ?Stage five ? | ? Stage five ?+ ---+ ---+ -------+ *Each stage assumes the associated GFR level has been in effect for at least three months. ?Stages 1 to 5, with or without kidney disease, indicate chronic kidney disease. Notes: Determination of stages one and two (with eGFR >59mL/min/1.73 m2) requires estimation of kidney damage for at least three months as defined by structural or functional abnormalities of the kidney, manifested by either:Pathological abnormalities or Markers of kidney damage (including abnormalities in the composition of the blood or urine or abnormalities in imaging tests). Lab Interpretation Abnormal (test code = 46381-2) [facility] METABOLIC [id number] 17:57:44 Test Item Value Reference Range Interpretation Comments SODIUM (BEAKER) 130 meq/L 136-145 L (test code = 381) POTASSIUM 4.4 meq/L 3.5-5.1 (BEAKER) (test code = 379) CHLORIDE (BEAKER) 96 meq/L 98-107 L (test code = 382) CO2 (BEAKER) 27 meq/L 22-29 (test code = 355) BLOOD UREA 11 mg/dL 7-21 NITROGEN (BEAKER) (test code = 354) CREATININE 0.84 mg/dL 0.57-1.25 (BEAKER) (test code = 358) GLUCOSE RANDOM 179 mg/dL 70-105 H (BEAKER) (test code = 652) CALCIUM (BEAKER) 10.6 mg/dL 8.4-10.2 H (test code = 697) EGFR (BEAKER) 103 Interpretatio n of eGFR (test code = mL/min/1.73 values Stage De scription 1092) sq m Result G1 [place] l or [...] not appl icable for dialysis patien ts Assembler Type Bar And Segment ID - [id number] 17:57:44 Test Item Value Reference Range Interpretation Comments MAGNESIUM (BEAKER) (test code = 1.9 mg/dL 1.6-2.6 627) Assembler [employer] And Segment ID - [id number] 17:57:44 Test Item Value Reference Range Interpretation Comments PHOSPHORUS (BEAKER) (test code = 3.5 mg/dL 2.3-4.7 604) Assembler [employer] And Segment ID - ADMINHEPATIC FUNCTION [id number] 17:57:44 Test Item Value Reference Range Interpretation [...] code = 58 U/L 6-55 H 347) Assembler Type Bar And Segment ID - ADMINPROTHROMBIN [id number] 17:21:32 Test Item Value Reference Range Interpretation Comments PROTIME (BEAKER) 14.6 seconds 11.9-14.2 H (test code = 759) INR (BEAKER) (test 1.21 See_Comment [Automat ed message] code = 370) The system [employer] generated this result transmitted ref erence range: <=5.90. The reference range was not used to int erpret this result as normal/abnormal . RECOMMENDED COUMADIN/WARFARIN INR THERAPY RANGESSTANDARD DOSE: 2.0 - 3.0 Includes: PROPHYLAXIS for venous thrombosis, systemic embolization; TREATMENT for venous thrombosis and/or pulmonary embolus.HIGH RISK: Target INR is 2.5-3.5 for patients with mechanical heart valves.CBC W/PLT COUNT & AUTO [id number] 17:13:11 Test Item Value Reference Range Interpretation [...] (test code = 2801) Drug screen, urine, [id number] 09:56:19 Test Item Value Reference Range Interpretation Comments Scan Result (test code = See scanned report [id number]) LYNDSAY (test code = LYNDSAY) [facility], [id number] 09:56:19 Test Item Value Reference Range Interpretation Comments Scan Result (test code = See scanned report [id number]) LYNDSAY (test code = LYNDSAY) See scanned report [facility], urine, [id number] 09:56:19 Test Item Value Reference Range Interpretation Comments Scan Result (test code = See scanned report [id number]) LYNDSAY (test code = LYNDSAY) See scanned report [facility]DRUG SCREEN, URINE, [id number] 09:56:19 Test Item Value Reference Range Interpretation Comments SCAN RESULT (test code = See scanned report [id number]) See scanned reportANTI-MITOCHONDRIAL AB, REFLEX TO [id number] 10:08:47 Test Item Value Reference Range Interpretation Comments SCAN RESULT (test code = 3837187) HEPATITIS B PCR, [id number] 16:22:43 Test Item Value Reference Range Interpretation Comments HBV RESULT COMPONENT HBV DNA not detected HBV DNA not detected (BEAKER) (test code = 2701) This test uses a Real-Time Polymerase Chain Reaction (RT-PCR) methodology and was performed using YOU AmpliPrep/YOU TaqMan HBV Test, v2.0 ([employer]Reportable range for this assay is 20 - 170,000,000 IU per mL (1.30 - 8.23 Log IU/mL).PHOSPHATIDYLETHANOL, [id number] 10:47:03 Test Item Value Reference Range Interpretation Comments PHOSPHATIDYLETHANOL (PETH) See scanned (test code = 9133654) report See scanned reportPOC-Glucose [id number] 08:56:45 Test Item Value Reference Range Interpretation Comments POC-Glucose Meter (test 221 mg/dL 70-110 H : TE STED AT [facility] code = 1538) [address] [facility], [address]70 [address]: Assembler Type Bar And Segment/Techni edwige ID = [id number] for David Saravia ia Lab Interpretation (test Abnormal code = 30066-0) [facility] Area[facility]-Glucose [id number] 08:56:45 Test Item Value Reference Range Interpretation Comments POC-Glucose Meter (test 221 mg/dL 70-110 H : TE STED AT [facility] code = 1538) [address] [facility], [address] 30: Assembler Type Bar And Segment/Techni edwige ID = [id number] for David Saravia Lab Interpretation (test Abnormal code = 73230-9) [facility]Glucose [id number] 08:56:45 Test Item Value Reference Range Interpretation Comments POC-Glucose Meter (test 221 mg/dL 70-110 H : TE STED AT [facility] code = 1538) [address] [place], [address]: Assembler Type Bar And Segment/Techni edwige ID = [id number] for David Saravia Lab Interpretation (test Abnormal code = 08219-7) [facility] AreaPOCT-GLUCOSE [id number] 08:56:45 Test Item Value Reference Range Interpretation Comments POC-GLUCOSE METER 221 mg/dL 70-110 H : TESTED A T [facility] 6720 (BEAKER) (test code = [place] [facility], 1538) [address]: Assembler Type Bar And Segment/Techni edwige ID = [id number] for David Saravia COMPREHENSIVE METABOLIC [id number] 04:26:22 Test Item Value Reference Range Interpretation [...] not appl icable for dialysis patien ts Assembler Type Bar And Segment ID - MELANIE WPROTHROMBIN TIME/[id number] 04:23:40 Test Item Value Reference Range Interpretation Comments PROTIME (BEAKER) 14.9 seconds 11.9-14.2 H (test code = 759) INR (BEAKER) (test 1.19 See_Comment [Automat ed message] code = 370) The system [employer] generated this result transmitted ref erence range: <=5.90. The reference range was not used to int erpret this result as normal/abnormal . RECOMMENDED COUMADIN/WARFARIN INR THERAPY RANGESSTANDARD DOSE: 2.0 - 3.0 Includes: PROPHYLAXIS for venous thrombosis, systemic embolization; TREATMENT for venous thrombosis and/or pulmonary embolus.HIGH RISK: Target INR is 2.5-3.5 for patients with mechanical heart valves.CBC W/PLT COUNT & AUTO [id number] 04:00:34 Test Item Value Reference Range Interpretation [...] PERCENT (BEAKER) (test code = 2801) POCT-GLUCOSE [id number] 22:32:07 Test Item Value Reference Range Interpretation Comments POC-GLUCOSE METER 227 mg/dL 70-110 H : TESTED A T [facility] 6720 (BEAKER) (test code = [place], 1538) [address]: Assembler Type Bar And Segment/Techni edwige ID = [id number] for Isamar Brunson POCT-GLUCOSE [id number] 15:48:32 Test Item Value Reference Range Interpretation Comments POC-GLUCOSE METER 193 mg/dL 70-110 H : TESTED A T [facility] 6720 (CHRISTIANO) (test code = [place], 1538) [address]: Assembler Type Bar And Segment/Techni edwige ID = [id number] for Gautam Newsome MR, ABDOMEN, [id number] 13:14:00Please perform with liver protocol/eovist Unlisted Reason for Exam - Click Yes and Enter Reason Below->Yes Unlisted Reason for Exam->[facility] : 1965 Sex: [...] inflammation to suggest acute cholecystitis Signed: Cinthia Butler Verified Date/Time: 07/01/2022 13:14:01 Reading Location: [facility] C013Y CT Body Reading Room POCT-GLUCOSE [id number] 11:27:22 Test Item Value Reference Range Interpretation Comments POC-GLUCOSE METER 159 mg/dL 70-110 H : TESTED A T [facility] 6720 (BEAKER) (test code = [facility], 1538) [address]: Assembler Type Bar And Segment/Techni edwige ID = [id number] for Gautam Newsome POCT-GLUCOSE [id number] 07:51:19 Test Item Value Reference Range Interpretation Comments POC-GLUCOSE METER 145 mg/dL 70-110 H : TESTED A T [facility] 6720 (BEAKER) (test code = [facility], 1538) [address]: Assembler Type Bar And Segment/Techni edwige ID = [id number] for Gautam Newsome POCT-GLUCOSE [id number] 06:42:08 Test Item Value Reference Range Interpretation Comments POC-GLUCOSE METER 148 mg/dL 70-110 H : TESTED A T [facility] 6720 (BEAKER) (test code = [facility], 1538) [address]: Assembler Type Bar And Segment/Techni edwige ID = [id number] for VENU TRAVIS COMPREHENSIVE METABOLIC [id number] 05:11:23 Test Item Value Reference Range Interpretation [...] not appl icable for dialysis patien ts Assembler Type Bar And Segment ID - PIAYA LCBC W/PLT COUNT & AUTO [id number] 04:56:15 Test Item Value Reference Range Interpretation [...] PERCENT (BEAKER) (test code = 2801) PROTHROMBIN TIME/[id number] 04:37:26 Test Item Value Reference Range Interpretation Comments PROTIME (BEAKER) 16.1 seconds 11.9-14.2 H (test code = 759) INR (BEAKER) (test 1.38 See_Comment [Automat ed message] code = 370) The system [employer] generated this result transmitted ref erence range: <=5.90. The reference range was not used to int erpret this result as normal/abnormal . RECOMMENDED COUMADIN/WARFARIN INR THERAPY RANGESSTANDARD DOSE: 2.0 - 3.0 Includes: PROPHYLAXIS for venous thrombosis, systemic embolization; TREATMENT for venous thrombosis and/or pulmonary embolus.HIGH RISK: Target INR is 2.5-3.5 for patients with mechanical heart valves.POCT-GLUCOSE [id number] 23:53:01 Test Item Value Reference Range Interpretation Comments POC-GLUCOSE METER 187 mg/dL 70-110 H : TESTED A T [facility] 6720 (BEAKER) (test code = [place] [facility], 1538) [address]: Assembler Type Bar And Segment/Techni edwige ID = [id number] for Naila Parsons POCT-GLUCOSE [id number] 17:11:19 Test Item Value Reference Range Interpretation Comments POC-GLUCOSE METER 160 mg/dL 70-110 H : TESTED A T [facility] 6720 (BEAKER) (test code [facility], = 1538) [address]: Assembler Type Bar And Segment/Techni edwige ID = [id number] for BASIL WYMANE POCT-GLUCOSE [id number] 13:20:03 Test Item Value Reference Range Interpretation Comments POC-GLUCOSE METER 249 mg/dL 70-110 H : TESTED A T [facility] 6720 (BEAKER) (test code [facility], = 1538) [address]: Assembler Type Bar And Segment/Techni edwige ID = [id number] for WILS ON, SHASTANIE THROMBOELASTOGRAPH (TEG)2022-06-30 09:19:46 [...] % 0.0-5.0 code = 1414) COMPREHENSIVE METABOLIC [id number] 08:27:43 Test Item Value Reference Range Interpretation [...] not appl icable for dialysis patien ts Assembler Type Bar And Segment ID - CHRISTIANA [id number] 06:38:39 Test Item Value Reference Range Interpretation Comments FIBRINOGEN LEVEL (BEAKER) (test 312 mg/dl 225-434 code = 658) PROTHROMBIN TIME/[id number] 06:38:32 Test Item Value Reference Range Interpretation Comments PROTIME (BEAKER) 16.9 seconds 11.9-14.2 H (test code = 759) INR (BEAKER) (test 1.46 See_Comment [Automat ed message] code = 370) The system [employer] generated this result transmitted ref erence range: <=5.90. The reference range was not used to int erpret this result as normal/abnormal . RECOMMENDED COUMADIN/WARFARIN INR THERAPY RANGESSTANDARD DOSE: 2.0 - 3.0 Includes: PROPHYLAXIS for venous thrombosis, systemic embolization; TREATMENT for venous thrombosis and/or pulmonary embolus.HIGH RISK: Target INR is 2.5-3.5 for patients with mechanical heart valves.PROTHROMBIN TIME/[id number] 06:38:14 Test Item Value Reference Range Interpretation Comments PROTIME (BEAKER) 16.9 seconds 11.9-14.2 H (test code = 759) INR (BEAKER) (test 1.47 See_Comment [Automat ed message] code = 370) The system [employer] generated this result transmitted ref erence range: <=5.90. The reference range was not used to int erpret this result as normal/abnormal . RECOMMENDED COUMADIN/WARFARIN INR THERAPY RANGESSTANDARD DOSE: 2.0 - 3.0 Includes: PROPHYLAXIS for venous thrombosis, systemic embolization; TREATMENT for venous thrombosis and/or pulmonary embolus.HIGH RISK: Target INR is 2.5-3.5 for patients with mechanical heart valves.CBC W/PLT COUNT & AUTO [id number] 06:32:12 Test Item Value Reference Range Interpretation [...] PERCENT (BEAKER) (test code = 2801) POCT-GLUCOSE [id number] 06:10:10 Test Item Value Reference Range Interpretation Comments POC-GLUCOSE METER 153 mg/dL 70-110 H : TESTED A T [facility] 6720 (BEAKER) (test code = [place], 1538) [address]: Assembler Type Bar And Segment/Techni edwige ID = [id number] for Karol sewell (contract), Colleen xis POCT-GLUCOSE [id number] 02:21:17 Test Item Value Reference Range Interpretation Comments POC-GLUCOSE METER 170 mg/dL 70-110 H : TESTED A T [facility] 6720 ([facility]) (test code = [facility], 1538) [address]: Assembler Type Bar And Segment/Techni edwige ID = [id number] for Sp tasia (contract), Sandi a POCT-GLUCOSE [id number] 00:34:09 Test Item Value Reference Range Interpretation Comments POC-GLUCOSE METER 208 mg/dL 70-110 H : TESTED A T [facility] 6720 ([facility]) (test code = [facility], 1538) [address]: Assembler Type Bar And Segment/Techni edwige ID = [id number] for Karol sewell (contract), Colleen xis POCT-GLUCOSE [id number] 17:59:46 Test Item Value Reference Range Interpretation Comments POC-GLUCOSE METER 236 mg/dL 70-110 H : Notified RN/MD: ([facility]) (test code = TESTED AT [facility] 6720 1538) [facility], [address]: Assembler Type Bar And Segment/Techni edwige ID = [id number] for MITCHELL YES, CLAUS HEMOGLOBIN AND [id number] 17:53:09 Test Item Value Reference Range Interpretation Comments HEMOGLOBIN ([facility]) (test code = 7.7 GM/DL 13.7-17.5 L 410) HEMATOCRIT ([facility]) (test code = 23.8 % 40.1-51.0 L 411) Assembler Type Bar And Segment ID - [id number] C PCR, [id number] 15:46:48 Test Item Value Reference Range Interpretation Comments HCV RESULT COMPONENT HCV RNA not detected HCV RNA not detected ([facility]) (test code = 2699) This test uses a Real-Time Polymerase Chain Reaction (RT-PCR) methodology and was performed using YOU Ampliprep/YOU TaqMan HCV test kit version 2.0 ([employer]Reportable range for this assay is 15 - 100,000,000 IU per mL (1.18 - 8.00 Log IU/mL).2D Echo W/Doppler(CW/PW/Color)2022-06-29 14:39:50 Ejection FractionSLEH ECHO HEARTLAB [facility] W/Doppler(CW/PW/Color)2022-06-29 14:39:50Ejection FractionSLEH ECHO HEARTLAB [facility] W/Doppler(CW/PW/Color)2022-06-29 14:39:50Ejection FractionSLEH ECHO HEARTLAB [facility] Leuk[facility]Red [id number] 13:21:00 Test Item Value Reference Range Interpretation Comments CROSSMATCH (test code = 2264) COMPATIBLE Unit ABO (test code = A Neg 2439217) UNIT NUMBER (test code = [id number] 934-0) Status (test code = 2207401) READY Blood Bank Product (test code RED BLOOD CELLS = 2263) PRODUCT CODE (test code = S6971H79 933-2) [facility]uk[facility]Red [id number] 13:21:00 Test Item Value Reference Range Interpretation Comments CROSSMATCH (test code = 2264) COMPATIBLE Unit ABO (test code = A Neg 7808734) UNIT NUMBER (test code = [id number] 934-0) Status (test code = 0695510) READY Blood Bank Product (test code RED BLOOD CELLS = 2263) PRODUCT CODE (test code = Q2187B09 933-2) [facility] Leuko-Red [id number] 13:21:00 Test Item Value Reference Range Interpretation Comments CROSSMATCH (test code = 2264) COMPATIBLE Unit ABO (test code = A Neg 7285102) UNIT NUMBER (test code = [id number] 934-0) Status (test code = 5242888) READY Blood Bank Product (test code RED BLOOD CELLS = 2263) PRODUCT CODE (test code = W8543X28 933-2) [facility] AreaPO[facility]GLUCOSE [id number] 12:30:58 Test Item Value Reference Range Interpretation Comments POC-GLUCOSE METER 299 mg/dL 70-110 H : Notified RN/MD: (CHRISTIANO) (test code = TESTED AT [facility] 8523 1539) [facility], [address]: Assembler Type Bar And Segment/Techni edwige ID = [id number] for CLAUS WEBER CBC W/PLT COUNT & AUTO [id number] 10:56:05 Test Item Value Reference Range Interpretation [...] PERCENT (BEAKER) (test code = 2801) POCT-GLUCOSE [id number] 06:41:24 Test Item Value Reference Range Interpretation Comments POC-GLUCOSE METER 186 mg/dL 70-110 H : TESTED A T [facility] 6720 (BEAKER) (test code = [place] 1538) [address]: Assembler Type Bar And Segment/Techni edwige ID = [id number] for Karol sewell (contract)Colleen CBC (HEMOGRAM ONLY)2022-06-29 [...] WBC 0-0 (test code = 413) CALCIUM, [id number] 05:41:59 Test Item Value Reference Range Interpretation Comments CALCIUM IONIZED (BEAKER) (test 1.16 mmol/L 1.12-1.27 code = 698) PH, BLOOD (BEAKER) (test code = 7.34 1810) [id number] 05:30:10 Test Item Value Reference Range Interpretation Comments MAGNESIUM (BEAKER) (test code = 1.8 mg/dL 1.6-2.6 627) Assembler Type Bar And Segment CITLALI VILLEDA MCOMPREHENSIVE METABOLIC [id number] 05:30:09 Test Item Value Reference Range Interpretation [...] not appl icable for dialysis patien ts Assembler Type Bar And Segment ID - HCRISTIANA [id number] 05:03:31 Test Item Value Reference Range Interpretation Comments PARTIAL THROMBOPLASTIN TIME 33.4 seconds 22.5-36.0 (BEAKER) (test code = 760) PROTHROMBIN TIME/[id number] 05:02:32 Test Item Value Reference Range Interpretation Comments PROTIME (BEAKER) 15.7 seconds 11.9-14.2 H (test code = 759) INR (BEAKER) (test 1.28 See_Comment [Automat ed message] code = 370) The system [employer] generated this result transmitted ref erence range: <=5.90. The reference range was not used to int erpret this result as normal/abnormal . RECOMMENDED COUMADIN/WARFARIN INR THERAPY RANGESSTANDARD DOSE: 2.0 - 3.0 Includes: PROPHYLAXIS for venous thrombosis, systemic embolization; TREATMENT for venous thrombosis and/or pulmonary embolus.HIGH RISK: Target INR is 2.5-3.5 for patients with mechanical heart valves.POCT-GLUCOSE [id number] 22:37:17 Test Item Value Reference Range Interpretation Comments POC-GLUCOSE METER 142 mg/dL 70-110 H : TESTED A T [facility] 6720 (Nethub) (test code = [facility], 1538) [address]: Assembler Type Bar And Segment/Techni edwige ID = [id number] for Karol sewell (contract)Colleen POCT-GLUCOSE [id number] 16:13:39 Test Item Value Reference Range Interpretation Comments POC-GLUCOSE METER 188 mg/dL 70-110 H : TESTED A T [facility] 6720 (Nethub) (test code = [facility], 1538) [address]: Assembler Type Bar And Segment/Techni edwige ID = [id number] for Ina Meredith ANTI-NUCLEAR ANTIBODY (BEATA)2022-06-28 14:16:56 Test Item Value Reference Range Interpretation Comments ANTI-NUCLEAR ANTIBODY (BEATA) (BEAKER) Negative Negative (test code = 418) Test performed by IFA method.Test performed by IFA method.U/S, ABDOMINAL, [id number] 13:44:00Reason for exam:->[facility]rhosis [facility] : 1965 [...] the gallbladder without acute cholecystitis Signed: Cinthia Butlergalina Verified Date/Time: 06/28/2022 13:44:08 HEMOGLOBIN AND [id number] 11:24:21 Test Item Value Reference Range Interpretation Comments HEMOGLOBIN (BEAKER) (test code = 7.8 GM/DL 13.7-17.5 L 410) HEMATOCRIT (BEAKER) (test code = 23.4 % 40.1-51.0 L 411) Assembler Type Bar And Segment ID - [id number] ID - [id number]-GLUCOSE [id number] 10:48:53 Test Item Value Reference Range Interpretation Comments POC-GLUCOSE METER 132 mg/dL 70-110 H : TESTED A T [facility] 6720 (BEAKER) (test code = [facility], 1538) [address]: Assembler Type Bar And Segment/Techni edwige ID = [id number] for Chelsi Joseph POCT-GLUCOSE [id number] 09:02:39 Test Item Value Reference Range Interpretation Comments POC-GLUCOSE METER 147 mg/dL 70-110 H : TESTED A T [facility] 6720 (BEAKER) (test code = [facility], 1538) [address]: Assembler Type Bar And Segment/Techni edwige ID = [id number] for Chelsi Joseph COMPREHENSIVE METABOLIC [id number] 06:41:05 Test Item Value Reference Range Interpretation [...] St age Description sq m Result G1 Norm al or high >=90 G2 Mildly decreased 60-89 [...] not appl icable for dialysis patien ts Assembler Type Bar And Segment ID - CHRISTIANA [id number] 06:41:05 Test Item Value Reference Range Interpretation Comments MAGNESIUM (BEAKER) (test code = 1.8 mg/dL 1.6-2.6 627) Assembler Type Bar And Segment ID - CHRISTIANA MCBC (HEMOGRAM ONLY)2022-06-28 06:37:04 [...] WBC 0-0 (BEAKER) (test code = 413) [id number] 06:14:47 Test Item Value Reference Range Interpretation Comments PARTIAL THROMBOPLASTIN TIME 29.0 seconds 22.5-36.0 (BEAKER) (test code = 760) PROTHROMBIN TIME/[id number] 06:14:11 Test Item Value Reference Range Interpretation Comments PROTIME (BEAKER) 15.3 seconds 11.9-14.2 H (test code = 759) INR (BEAKER) (test 1.23 See_Comment [Automat ed message] code = 370) The system [employer] generated this result transmitted ref erence range: <=5.90. The reference range was not used to int erpret this result as normal/abnormal . RECOMMENDED COUMADIN/WARFARIN INR THERAPY RANGESSTANDARD DOSE: 2.0 - 3.0 Includes: PROPHYLAXIS for venous thrombosis, systemic embolization; TREATMENT for venous thrombosis and/or pulmonary embolus.HIGH RISK: Target INR is 2.5-3.5 for patients with mechanical heart valves.POCT-GLUCOSE [id number] 23:04:59 Test Item Value Reference Range Interpretation Comments POC-GLUCOSE METER 181 mg/dL 70-110 H : TESTED A T [facility] 6720 (BEAKER) (test code = [place], 1538) [address]: Assembler Type Bar And Segment/Techni edwige ID = [id number] for Meche Yousif [id number] 20:46:29 Test Item Value Reference Range Interpretation Comments FERRITIN (BEAKER) (test code = 59.05 ng/mL 5.00-275.00 361) Assembler Type Bar And Segment ID - ADMINHEPATITIS B CORE ANTIBODY, [id number] 20:12:45 Test Item Value Reference Range Interpretation Comments HEPATITIS B CORE TOTAL ANTIBODY Reactive Nonreactive A (BEAKER) (test code = 497) Assembler Type Bar And Segment ID - SEBAS LHEPATITIS B SURFACE [id number] 20:12:39 Test Item Value Reference Range Interpretation Comments HEPATITIS B SURFACE ANTIBODY 4789.9 mIU/mL <8.0 H (BEAKER) (test code = 647) Assembler Type Bar And Segment ID - SEBAS LOperator ID - SEBAS LHEMOGLOBIN AND [id number] 20:10:40 Test Item Value Reference Range Interpretation Comments HEMOGLOBIN (BEAKER) (test code = 8.0 GM/DL 13.7-17.5 L 410) HEMATOCRIT (BEAKER) (test code = 24.7 % 40.1-51.0 L 411) Assembler Type Bar And Segment ID - [id number] ID - [id number] B SURFACE [id number] 19:51:43 Test Item Value Reference Range Interpretation Comments HEPATITIS B SURFACE ANTIGEN (2) Nonreactive Nonreactive (BEAKER) (test code = 2585) Specimen is considered negative for HBsAg.HEPATITIS C [id number] 19:51:43 Test Item Value Reference Range Interpretation Comments HEPATITIS C ANTIBODY (BEAKER) Nonreactive Nonreactive (test code = 367) Assembler Type Bar And Segment ID - SEBAS LALPHA FETOPROTEIN (AFP), TUMOR [id number] 19:46:42 Test Item Value Reference Range Interpretation Comments ALPHA-FETOPROTEIN (BEAKER) (test code < ng/mL <10.0 = 1094) Assembler Type Bar And Segment ID - SEBAS LHEPATITIS A ANTIBODY, [id number] 19:20:02 Test Item Value Reference Range Interpretation Comments HEPATITIS A IGG ANTIBODY (BEAKER) Nonreactive Nonreactive (test code = 2797) Assembler Type Bar And Segment ID - SEBAS LHEPATITIS A ANTIBODY, [id number] 19:19:56 Test Item Value Reference Range Interpretation Comments HEPATITIS A IGM ANTIBODY (BEAKER) Nonreactive Nonreactive (test code = 498) Assembler Type Bar And Segment ID - SEBAS [id number]-[id number] 18:54:12 Test Item Value Reference Range Interpretation Comments ALPHA-1 ANTITRYPSIN 144.40 mg/dL 90.00-200.00 Specimen slightly (BEAKER) (test code = hemoly zed 502) Assembler Type Bar And Segment ID - SEBAS LIZETH, TIBC, % SAT. (WITHOUT FERRITIN)2022-06-27 18:53:30 Test Item Value Reference Range Interpretation Comments IRON (BEAKER) (test code = 547) 34.0 ug/dL 40.0-160.0 L TOTAL IRON BINDING CAPACITY 299 ug/dL 250-450 (BEAKER) (test code = 769) IRON % SATURATION (2) (BEAKER) 11 % 20-55 L (test code = 2590) Assembler Type Bar And Segment ID - SEBAS LPOCT-GLUCOSE [id number] 16:30:50 Test Item Value Reference Range Interpretation Comments POC-GLUCOSE METER 199 mg/dL 70-110 H : TESTED A T [facility] 6720 (BEAKER) (test code = [facility], 1538) [address]: Assembler Type Bar And Segment/Techni edwige ID = [id number] for Chelsi Joseph POCT-GLUCOSE [id number] 12:00:48 Test Item Value Reference Range Interpretation Comments POC-GLUCOSE METER 182 mg/dL 70-110 H : TESTED A T [facility] 6720 (BEAKER) (test code = [facility], 1538) [address]: Assembler Type Bar And Segment/Techni edwige ID = [id number] for Nico Lakhani [id number] 11:47:33 Test Item Value Reference Range Interpretation Comments FIBRINOGEN LEVEL (BEAKER) (test 283 mg/dl 225-434 code = 658) HEMOGLOBIN AND [id number] 11:43:51 Test Item Value Reference Range Interpretation Comments HEMOGLOBIN (BEAKER) (test code = 9.5 GM/DL 13.7-17.5 L 410) HEMATOCRIT (BEAKER) (test code = 28.8 % 40.1-51.0 L 411) Assembler Type Bar And Segment ID - 6000POCT-GLUCOSE [id number] 06:17:14 Test Item Value Reference Range Interpretation Comments POC-GLUCOSE METER 207 mg/dL 70-110 H : TESTED A T [facility] 6720 (BEAKER) (test code = [facility], 1538) [address]: Assembler Type Bar And Segment/Techni edwige ID = [id number] for MARIE VARGHESE COMPREHENSIVE METABOLIC [id number] 03:37:28 Test Item Value Reference Range Interpretation [...] not appl icable for dialysis patien ts Assembler Type Bar And Segment ID - CHRISTIANA [id number] 03:37:28 Test Item Value Reference Range Interpretation Comments MAGNESIUM (BEAKER) (test code = 1.7 mg/dL 1.6-2.6 627) Assembler Type Bar And Segment ID - CHRISTIANA [id number] 03:27:04 Test Item Value Reference Range Interpretation Comments PARTIAL THROMBOPLASTIN TIME 29.6 seconds 22.5-36.0 (BEAKER) (test code = 760) PROTHROMBIN TIME/[id number] 03:26:26 Test Item Value Reference Range Interpretation Comments PROTIME (BEAKER) 16.5 seconds 11.9-14.2 H (test code = 759) INR (BEAKER) (test 1.42 See_Comment [Automat ed message] code = 370) The system [employer] generated this result transmitted ref erence range: [...] (BEAKER) (test code = 413) HEMOGLOBIN AND [id number] 00:12:37 Test Item Value Reference Range Interpretation Comments HEMOGLOBIN (BEAKER) (test code = 9.6 GM/DL 13.7-17.5 L 410) HEMATOCRIT (BEAKER) (test code = 30.0 % 40.1-51.0 L 411) [employer] ID - [id number] 00:10:44 Test Item Value Reference Range Interpretation Comments POC-GLUCOSE METER 222 mg/dL 70-110 H : TESTED Kamila T [facility] 6720 (BEAKER) (test code = [place], 1538) [address]: Assembler [employer] Segment/Techni edwige ID = [id number] for MARIE VARGHESE HIGH SENSITIVITY TROPONIN [id number] 20:06:54 Test Item Value Reference Range Interpretation Comments HIGH SENSITIVITY 33 pg/ml See_Comment [Automated message] TROPONIN I (test code = The system which [id number]) generated this result transmitted ref erence range: <=35. Th e reference range was not used to int erpret this result as normal/abnormal . Assembler [employer] Seg[employer] ID - SEBAS LThe HEMMER CHAINSTITCH STAT High Sensitivity Troponin-I results should be used in conjunction with other diagnostic information such as ECG, clinical observations and information, and patient symptoms to aid in the diagnosis of UT.CREATINE KINASE (CK)2022-06-26 20:01:17 Test Item Value Reference Range Interpretation Comments CREATINE KINASE TOTAL (BEAKER) (test 36 U/L 29-200 code = 380) Assembler [employer] ID Lis MULLEN [id number] 20:01:17 Test Item Value Reference Range Interpretation Comments LIPASE (BEAKER) (test code = 749) 19 U/L 8-78 Assembler [employer] ID - SEBAS LCOMPREHENSIVE METABOLIC [id number] 20:01:16 Test Item Value Reference Range Interpretation [...] not appl icable for dialysis patien ts Assembler [employer] ID - SEBAS [id number] 19:58:16 Test Item Value Reference Range Interpretation Comments ETHANOL (BEAKER) < mg/dL See_Comment [Automated message] The (test code = 400) system [employer] generated this result tra nsmitted reference range : <=10. The reference r keegan was not used to int erpret this result as normal/abnormal . Assembler [employer] ID - SEBAS [id number] 19:42:35 Test Item Value Reference Range Interpretation Comments PARTIAL THROMBOPLASTIN TIME 28.6 seconds 22.5-36.0 (BEAKER) (test code = 760) PROTHROMBIN TIME/[id number] 19:41:53 Test Item Value Reference Range Interpretation Comments PROTIME (BEAKER) 16.0 seconds 11.9-14.2 H (test code = 759) INR (BEAKER) (test 1.36 See_Comment [Automat ed message] code = 370) The system [employer] generated this result transmitted ref erence range: <=5.90. The reference range was not used to int erpret this result as normal/abnormal . RECOMMENDED COUMADIN/WARFARIN INR THERAPY RANGESSTANDARD DOSE: 2.0 - 3.0 Includes: PROPHYLAXIS for venous thrombosis, systemic embolization; TREATMENT for venous thrombosis and/or pulmonary embolus.HIGH RISK: Target INR is 2.5-3.5 for patients with mechanical heart valves.CBC W/PLT COUNT & AUTO [id number] 19:26:51 Test Item Value Reference Range Interpretation [...] (BEAKER) (test code = 2801) HEMOGLOBIN AND [id number] 18:55:46 Test Item Value Reference Range Interpretation Comments HEMOGLOBIN (BEAKER) (test code = 9.8 GM/DL 13.7-17.5 L 410) HEMATOCRIT (BEAKER) (test code = 29.7 % 40.1-51.0 L 411) Assembler [employer] Segment ID - [id number]"
[2022-10-01] MEDS ORDERED: ONDANSETRON 4 MG/2 ML VIAL ONE (15:14)
[2022-10-01 15:34] LABS: Absolute Lymphocytes (CBC) 0.7 K/uL (0.7-4.9); Hematocrit 41.7 % (39.6-49.0); Lymphocytes % 10.4 % (15.3-44.8); MPV 9.4 fL (7.6-11.3); RBC Red Blood Cell Count 4.91 M/uL (4.33-5.43)
[2022-10-01 15:37] LABS: Blood Morphology Comment NOT SEEN (NOT SEEN); Platelet Estimate DECR; White Blood Cell Scan OK (OK)
--- NOTE | 2022-10-01 15:57 | RAD REPORT ---
EXAM DESCRIPTION: RAD - Chest Single View - 10/01/2022 3:48 pm CLINICAL HISTORY: nausea/vomiting COMPARISON: No comparisons FINDINGS: Lines: None. Lungs: No evidence of edema or pneumonia. Pleural: No significant pleural effusions or pneumothorax. Cardiac: The heart size is within normal limits. Mediastinum: Within normal limits. Bones: No acute fractures. ACDF in the cervical spine. Other: None IMPRESSION: No acute cardiopulmonary disease.
[2022-10-01] MEDS ORDERED: NA CHLORIDE 0.9% 1,000 ML ONE ×2 (16:18→17:46)
[2022-10-01] MEDS ORDERED: METOCLOPRAMIDE 10 MG/2mL INJ ONE (16:18)
[2022-10-01] MEDS ORDERED: MORPHINE 4 MG/ML SYR ONE ×3 (16:18→17:26)
[2022-10-01] MEDS ORDERED: PANTOPRAZOLE 40 MG INJ ONE ×2 (16:18→19:59)
[2022-10-01 17:17] LABS: Albumin 3.8 g/dL (3.4-5.0); Bilirubin Total 1.5 mg/dL (0.2-1.0); Potassium 4.6 mmol/L (3.5-5.1); Protein, Total 8.7 g/dL (6.4-8.2)
[2022-10-01] MEDS ORDERED: INSULIN -REGULAR HUMAN 50 UNIT/0.5 ML ML ONE (17:46)
--- NOTE | 2022-10-01 18:12 | RAD REPORT ---
EXAM DESCRIPTION: CTAbdomen Pelvis W Contrast - 10/01/2022 5:48 pm CLINICAL HISTORY: upper abdomen pain COMPARISON: Abdomen Pelvis W Contrast dated 07/28/2022; Abdomen Pelvis W Contrast dated 07/13/2022 ; Abdomen Pelvis W Contrast dated 06/26/2022 TECHNIQUE: CT of the abdomen and pelvis was performed with IV contrast. All CT scans are performed using dose optimization technique as appropriate and may include automated exposure control or mA/KV adjustment according to patient size. FINDINGS: Lower chest: Mild coronary artery calcifications. Circumferential thickened distal esophag us. Liver: No acute abnormality or suspicious lesions. Mild nodular liver configuration. Biliary: No biliary ductal dilatation. Stomach: Diffuse gastric wall thickening. Duodenum: Mild stranding around the duodenal C-loop. Pancreas: No significant abnormality. Spleen: Multiple splenic lesions. The spleen is enlarged. Adrenal: No suspicious lesions. Kidney/ureter: No hydronephrosis. No renal calculi. Too small to characterize and/or benign appearing renal lesions are noted. Retroperitoneum: No retroperitoneal adenopathy. Vascular: No aneurysm. Atherosclerosis. Bowel: Mild diffuse colonic wall thickening. Normal appendix.. Peritoneum: Mild stranding at celiac trunk. Bladder: Grossly unremarkable. Reproductive: No adnexal masses. Bones: No acute fracture. Other: n/a IMPRESSION: Duodenal wall thickening with adjacent fluid, gastric wall thickening, and distal esopha geal wall thickening. The findings are more prominent than seen on the CT from 07/28/2022. Consider e ndoscopy for further evaluation. Also, suggest lipase to exclude pancreatitis as a possible etiology.
[2022-10-01] MEDS ORDERED: LORazepam 2 MG/ML VIAL ONE (18:32)
[2022-10-01] MEDS ORDERED: HYDROMORPHONE HCL 2 MG/ML inj ONE (18:33)
--- NOTE | 2022-10-01 19:14 | ER ---
Nurse's Notes [facility] Name: Eitan Gonzalez Age: 57 yrs Sex: Male : 1965 Arrival Date: 10/01/2022 Time: 14:55 Bed 17 Private MD: Diagnosis: Upper abdominal pain, unspecified;Nausea with vomiting, unspecified Presentation: 10/01 15:09 Chief complaint: Patient states: C/O severe upper abdominal pain, N/V X 12 hours. Rash ld1 to face since this morning. Coronavirus screen: At this time, the client does not indicate any symptoms associated with coronavirus-19. Ebola Screen: No symptoms or risks identified at this time. Initial Sepsis Screen: Does the patient meet any 2 criteria? No. Patient's initial sepsis screen is negative. Does the patient have a suspected source of infection? No. Patient's initial sepsis screen is negative. Risk Assessment: Do you want to hurt yourself or someone else? Patient reports no desire to harm self or others. Onset of symptoms was October 01, 2022 at 15:09. 15:09 Method Of Arrival: Wheelchair ld1 15:09 Acuity: NALINI 3 ld1 Triage Assessment: 15:06 General: Appears uncomfortable, Behavior is cooperative, anxious, crying. Pain: ld1 Complains of pain in right upper quadrant and left upper quadrant Pain does not radiate. Pain currently is 10 out of 10 on a pain scale. Quality of pain is described as sharp, shooting, throbbing, Pain began gradually, Is continuous. EENT: No signs and/or symptoms were reported regarding the EENT system. Neuro: Level of Consciousness is awake, alert, obeys commands, Oriented to person, place, time, situation. Cardiovascular: Capillary refill < 3 seconds Patient's skin is warm and dry. Respiratory: Airway is patent Respiratory effort is even, unlabored. Respiratory: Airway. GI: Abdomen is round non-distended, Reports upper abdominal pain, nausea, vomiting. : No signs and/or symptoms were reported regarding the genitourinary system. Derm: No signs and/or symptoms reported regarding the dermatologic system. Musculoskeletal: No signs and/or symptoms reported regarding the musculoskeletal system. Historical: - Allergies: 15:06 Trulicity; ld1 - PMHx: 15:06 Alcoholism; cirrhosis of liver; diabetes mellitus; enlarged spleen; Hypertensive ld1 disorder; gastroporesis; - PSHx: 15:06 None; ld1 - Immunization history:: Adult Immunizations up to date, Client reports receiving the 2nd dose of the Covid vaccine. - Social history:: Smoking status: Patient denies any tobacco usage or history of. Patient/guardian denies using alcohol. Screenin:20 Abuse screen: Denies threats or abuse. Denies injuries from another. Nutritional aa9 screening: Has had N/V for 3 or more days. Tuberculosis screening: No symptoms or risk factors identified. Fall Risk Assessment: 16:59 General: Appears distressed, uncomfortable, Behavior is agitated, restless. Pain: kc6 Complains of pain in right upper quadrant Pain does not radiate. Pain currently is 10 out of 10 on a pain scale. Quality of pain is described as sharp, Pain began 1 day ago. Is continuous, Alleviated by nothing. Aggravated by eating, drinking, increased activity, repositioning, Noted to be grimacing, guarding, moaning, resistant to movement, restless, Also complains of no other associated symptoms. Neuro: Mccullough Agitation-Sedation Scale (RASS): +1 Restless Level of Consciousness is awake, alert, obeys commands, Oriented to person, place, time, situation, Appropriate for age. Cardiovascular: Heart tones S1 S2 present Capillary refill < 3 seconds. Respiratory: Airway is patent Trachea midline Respiratory effort is even, unlabored, Respiratory pattern is regular, symmetrical, Breath sounds are clear bilaterally. GI: Abdomen is flat, non-distended, Pt is actively vomiting bile, Bowel sounds present X 4 quads. Abd is soft X 4 quads Abdomen is tender to palpation in right upper quadrant Reports upper abdominal pain, nausea, vomiting. : No signs and/or symptoms were reported regarding the genitourinary system. EENT: No signs and/or symptoms were reported regarding the EENT system. Derm: No signs and/or symptoms reported regarding the dermatologic system. Skin is intact, Skin is diaphoretic, Skin is pink, Skin temperature is warm. Musculoskeletal: Circulation, motion, and sensation intact. Capillary refill < 3 seconds, Range of motion: intact in all extremities. 17:59 Reassessment: Patient appears in no apparent distress at this time. No changes from kc6 previously documented assessment. Patient and/or family updated on plan of care and expected duration. Pain level reassessed. Patient is alert, oriented x 3, equal unlabored respirations, skin warm/dry/pink. Vital Signs: 15:06 BP 165 / 101; Pulse 69; Resp 22; Temp 96.9(A); Pulse Ox 99% on R/A; Weight 102.06 kg; ld1 Height 6 ft. 0 in. (182.88 cm); Pain 10/10; 17:03 BP 193 / 89; Pulse 79; Resp 20 S; Temp 98.1(O); Pulse Ox 100% on R/A; Pain 10/10; kc6 18:46 BP 193 / 101; Pulse 83; Resp 18 S; Pulse Ox 93% on R/A; Pain 10/10; kc6 15:06 Body Mass Index 30.52 (102.06 kg, 182.88 cm) ld1 ED Course: 14:55 Patient arrived in ED. mr 15:06 Arm band placed on right wrist. ld1 15:09 Triage completed. ld1 15:12 Sebastian Valverde PA is PHCP. cp 15:12 Joshua Tracy DO is Attending Physician. cp 15:17 Inserted saline lock: 22 gauge in right wrist, using aseptic technique. ld1 15:49 XRAY Chest (1 view) In Process Unspecified. EDMS 16:09 Lillie Amaral, RN is Primary Nurse. kc6 16:46 Inserted saline lock: 22 gauge in right forearm, using aseptic technique. jd3 17:50 CT Abd/Pelvis - IV Contrast Only In Process Unspecified. EDMS 19:13 Suni Ibarra PA-C is Hospitalizing Provider. cp 19:26 UDS Sent. aa9 19:27 Urine Microscopic Only Sent. aa9 20:14 SARS-COV-2 Antigen Rapid Sent. aa9 21:20 Patient has correct armband on for positive identification. Call light in reach. Side aa9 rails up X2. Adult w/ patient. 21:21 Patient admitted, IV remains in place. aa9 21:21 No provider procedures requiring assistance completed. aa9 10/02 04:54 Arden Marcos MD is Hospitalizing Provider. sb4 Administered Medications: 10/01 15:17 Drug: Zofran (Ondansetron) 4 mg Route: IVP; Site: right wrist; ld1 18:58 Follow up: Response: No adverse reaction; Nausea unchanged kc6 16:30 Drug: morphine 4 mg Route: IVP; Infused Over: 4 mins; Site: right wrist; kc6 18:59 Follow up: Response: No adverse reaction; Pain is unchanged, physician notified; RASS: kc6 Alert and Calm (0) 16:49 Drug: NS 0.9% 1000 ml Route: IV; Rate: 1000 ml/hr; Site: right forearm; kc6 18:59 Follow up: Response: No adverse reaction; IV Status: Completed infusion; IV Intake: kc6 1000ml 16:49 Drug: Reglan (metoCLOPramide) 10 mg Route: IVP; Site: right forearm; kc6 16:50 Drug: ProTONIX (pantoprazole) 40 mg Route: IVP; Site: right forearm; kc6 17:50 Follow up: Response: No adverse reaction kc6 16:59 Drug: morphine 4 mg Route: IVP; Infused Over: 4 mins; Site: right forearm; kc6 17:25 CANCELLED (Physician Discretion): morphine 5 mg IVP once over 4 mins cp 17:27 Drug: morphine 4 mg Route: IVP; Infused Over: 4 mins; Site: right forearm; jd3 18:59 Follow up: Response: No adverse reaction; Pain is unchanged, physician notified; RASS: kc6 Alert and Calm (0) 18:06 Drug: Insulin Regular Human 10 units {Co-Signature: jd3 (Omega Prince RN).} Route: kc6 IVP; Site: right forearm; 19:00 Follow up: Response: No adverse reaction kc6 18:45 Drug: Ativan (LORazepam) 0.5 mg Route: IVP; Site: right forearm; kc6 18:45 Drug: Dilaudid (HYDROmorphone) 1 mg Route: IVP; Site: right forearm; kc6 20:08 Drug: carvedilol 6.25 mg Route: PO; aa9 20:14 Drug: ProTONIX (pantoprazole) 8 mg/hr Route: IV; Rate: 25 ml/hr; Site: right aa9 antecubital; 20:15 Drug: NS 0.9% 1000 ml Route: IV; Rate: 125 ml/hr; Site: right antecubital; aa9 Medication: 21:20 VIS not applicable for this client. aa9 Intake: 18:59 IV: 1000ml; Total: 1000ml. kc6 Outcome: 19:14 Decision to Hospitalize by Provider. cp 21:20 Admitted to ER Hold. Please see [facility] for further documentation. aa9 21:20 Condition: stable 21:20 Instructed on the need for admit. 10/02 21:28 Patient left the ED. aa9 Signatures: Dispatcher [employer] [facility] Tori Brice Sebastian Valverde, Omega Martin cp RN RN jd3 Chrissy Machado RN RN ld1 Dorothy Valdes RN RN aa9 Lillie Amaral RN RN kc6 Suni Ibarra PA-Marlyn PA-Marlyn adhikari4 Omega Prince RN jd3 Corrections: (The following items were deleted from the chart) 10/01 15:11 15:09 Chief complaint: Patient states: C/O severe upper abdominal pain, N/V X 12 hours. ld1 ld1
--- NOTE | 2022-10-01 19:14 | EDPHYS ---
Physician Documentation [facility] Name: Eitan Gonzalez Age: 57 yrs Sex: Male : 1965 Arrival Date: 10/01/2022 Time: 14:55 Bed 17 Private MD: ED Physician Joshua Tracy HPI: 10/01 15:15 This 57 yrs old Male presents to ER via Wheelchair with complaints of Abdominal Pain, cp Vomiting, Rash. 15:15 The patient presents with abdominal pain in the upper abdomen. cp 15:15 Onset: The symptoms/episode began/occurred this morning. The symptoms do not radiate. cp Associated signs and symptoms: Pertinent positives: nausea and vomiting, anorexia, vomiting blood, Pertinent negatives: blood in stools, chest pain, constipation, diarrhea, dysuria, fever, headache. The symptoms are described as constant. Severity of pain: in the emergency department the pain is unchanged despite home interventions. Historical: - Allergies: 15:06 Trulicity; ld1 - PMHx: 15:06 Alcoholism; cirrhosis of liver; diabetes mellitus; enlarged spleen; Hypertensive ld1 disorder; gastroporesis; - PSHx: 15:06 None; ld1 - Immunization history:: Adult Immunizations up to date, Client reports receiving the 2nd dose of the Covid vaccine. - Social history:: Smoking status: Patient denies any tobacco usage or history of. Patient/guardian denies using alcohol. ROS: 15:20 Constitutional: Positive for poor PO intake, Negative for body aches, chills, fever. cp 15:20 Eyes: Negative for injury, pain, redness, and discharge. cp 15:20 Respiratory: Negative for cough, shortness of breath, wheezing. 15:20 Abdomen/GI: Positive for abdominal pain, nausea and vomiting, hematemesis, Negative for diarrhea, constipation, black/tarry stool, rectal bleeding. 15:20 ENT: Negative for ear pain, difficulty swallowing, difficulty handling secretions. cp 15:20 Cardiovascular: Negative for chest pain, edema, palpitations. 15:20 : Negative for urinary symptoms. 15:20 Neuro: Negative for altered mental status, dizziness, headache, syncope, weakness. 15:20 All other systems are negative. Exam: 15:25 Constitutional: The patient appears alert, awake, non-toxic, well developed, well cp nourished, diaphoretic, in obvious distress, mildly distressed, uncomfortable. 15:25 Head/Face: Normocephalic, atraumatic. cp 15:25 Eyes: Periorbital structures: appear normal, Conjunctiva: normal, no exudate, no injection, Sclera: no appreciated abnormality, Lids and lashes: appear normal, bilaterally. 15:25 ENT: External ear(s): are unremarkable, Nose: is normal, Mouth: Lips: moist, Oral mucosa: moist, Posterior pharynx: Airway: no evidence of obstruction, patent. 15:25 Neck: ROM/movement: is normal, is supple, without pain, no range of motions limitations. 15:25 Chest/axilla: Inspection: normal. 15:25 Cardiovascular: Rate: normal, Rhythm: regular, Edema: is not appreciated, JVD: is not appreciated. 15:25 Respiratory: the patient does not display signs of respiratory distress, Respirations: normal, no use of accessory muscles, no retractions, labored breathing, is not present, Breath sounds: are clear throughout, no decreased breath sounds, no stridor, no wheezing. 15:25 Abdomen/GI: Inspection: abdomen appears normal, Bowel sounds: active, all quadrants, Palpation: soft, in all quadrants, severe abdominal tenderness, in the epigastric area, right upper quadrant and left upper quadrant, rebound tenderness, is not appreciated, voluntary guarding, is elicited in the epigastric area, right upper quadrant and left upper quadrant. 15:25 Back: CVA tenderness, is absent. 15:25 Neuro: Orientation: to person, place \T\ time. Mentation: is normal, Motor: moves all fours, strength is normal, Sensation: is normal. 18:14 ECG was reviewed by the Attending Physician. cp Vital Signs: 15:06 BP 165 / 101; Pulse 69; Resp 22; Temp 96.9(A); Pulse Ox 99% on R/A; Weight 102.06 kg; ld1 Height 6 ft. 0 in. (182.88 cm); Pain 10/10; 17:03 BP 193 / 89; Pulse 79; Resp 20 S; Temp 98.1(O); Pulse Ox 100% on R/A; Pain 10/10; kc6 18:46 BP 193 / 101; Pulse 83; Resp 18 S; Pulse Ox 93% on R/A; Pain 10/10; kc6 15:06 Body Mass Index 30.52 (102.06 kg, 182.88 cm) ld1 MDM: 15:17 Patient medically screened. cp 16:00 Differential diagnosis: bowel obstruction, cholecystitis, Cholelithiasis, gastritis, GI cp Bleed, pancreatitis, Peptic Ulcer Disease, Perf. Duodenal Ulcer, Perf. Gastric Ulcer. 18:35 Data reviewed: vital signs, nurses notes, lab test result(s), EKG, radiologic studies, cp CT scan, plain films. 18:35 Test interpretation: by ED physician or midlevel provider: ECG, plain radiologic cp studies. 18:40 Physician consultation: Michael Palomo MD was contacted at 18:37, regarding consult, cp patient's condition, sent text due to hospital phone lines being down discussing results of CT. Agrees to consult and admission to hospitalist services. 19:00 Physician consultation: Suni Ibarra PA-C was contacted at 19:00, regarding admission, cp to the telemetry unit. patient's condition. 10/01 15:10 Order name: CBC with Diff; Complete Time: 15:46 ld1 10/01 15:46 Interpretation: Normal except: PLT 94; RDW 17.1; JAMIR% 80.2; LYM% 10.4. cp 10/01 15:10 Order name: CMP; Complete Time: 17:22 ld1 10/01 17:23 Interpretation: Normal except: NA 134; GLUC 361; BILIT 1.5; CA 10.9; TP 8.7; GLOB 4.9; cp A/G 0.8. 10/01 15:10 Order name: Lipase; Complete Time: 17:22 ld1 12 17:23 Interpretation: LIP 62; Reviewed. 10/01 15:16 Order name: PT-INR; Complete Time: 20:19 cp 10/01 15:16 Order name: Ptt, Activated; Complete Time: 20:19 cp 10/01 15:16 Order name: Troponin High Sensitivity; Complete Time: 19:42 cp 10/01 15:17 Order name: ETOH Level; Complete Time: 19:06 cp 10/01 15:17 Order name: Urine Microscopic Only; Complete Time: 20:19 cp 10/01 15:17 Order name: UDS; Complete Time: 20:19 cp 10/01 15:37 Order name: CBC Smear Scan; Complete Time: 15:46 EDMS 10/01 19:27 Order name: Urine Dipstick-Ancillary; Complete Time: 19:42 EDMS 10/01 19:43 Order name: SARS-COV-2 Antigen Rapid sb4 10/01 20:15 Order name: Glucose, Ancillary Testing; Complete Time: 20:19 EDMS 10/02 00:01 Order name: SARS-COV-2 Antigen Rapid; Complete Time: 04:54 EDMS 10/01 15:16 Order name: XRAY Chest (1 view); Complete Time: 16:10 10/01 15:17 Order name: CT Abd/Pelvis - IV Contrast Only; Complete Time: 18:13 10/01 18:30 Interpretation: Report reviewed. 10/02 02:18 Order name: Glucose, Ancillary Testing; Complete Time: 04:54 EDMS 10/02 03:02 Order name: CBC with Automated Diff; Complete Time: 04:54 EDMS 10/02 03:23 Order name: Comprehensive Metabolic Panel; Complete Time: 04:54 EDMS 10/02 03:23 Order name: Phosphorus; Complete Time: 04:54 EDMS 10/02 03:23 Order name: Lipid Profile; Complete Time: 04:54 EDMS 10/02 03:23 Order name: Magnesium; Complete Time: 04:54 EDMS 10/02 03:23 Order name: Thyroid Stimulating Hormone; Complete Time: 04:54 EDMS 10/02 05:40 Order name: Glucose, Ancillary Testing [facility] 10/02 09:48 Order name: Basic Metabolic Panel [facility] 10/02 09:48 Order name: Magnesium [facility] 10/02 12:49 Order name: Glucose, Ancillary Testing [facility] 10/01 15:10 Order name: IV Saline Lock; Complete Time: 15:17 ld1 10/01 15:10 Order name: Labs collected and sent; Complete Time: 15:17 ld1 10/01 15:10 Order name: Urine Dipstick-Ancillary (obtain specimen); Complete Time: 19:27 ld1 10/01 15:16 Order name: EKG; Complete Time: 15:17 10/01 15:16 Order name: EKG - Nurse/Tech; Complete Time: 18:13 10/01 15:38 Order name: Labs - recollect needed: recollect green top; Complete Time: 16:50 bd 10/01 18:23 Order name: Labs - recollect needed: blue top; Complete Time: 19:53 jd3 10/01 19:49 Order name: Fingerstick Glucose; Complete Time: 20:08 sb4 EC:14 Rate is 74 beats/min. Rhythm is regular. VA interval is normal. QRS interval is normal. cp QT interval is prolonged. T waves are Inverted in lead aVR. Interpreted by me. Reviewed by me. Administered Medications: 15:17 Drug: Zofran (Ondansetron) 4 mg Route: IVP; Site: right wrist; ld1 18:58 Follow up: Response: No adverse reaction; Nausea unchanged kc6 16:30 Drug: morphine 4 mg Route: IVP; Infused Over: 4 mins; Site: right wrist; kc6 18:59 Follow up: Response: No adverse reaction; Pain is unchanged, physician notified; RASS: kc6 Alert and Calm (0) 16:49 Drug: NS 0.9% 1000 ml Route: IV; Rate: 1000 ml/hr; Site: right forearm; kc6 18:59 Follow up: Response: No adverse reaction; IV Status: Completed infusion; IV Intake: kc6 1000ml 16:49 Drug: Reglan (metoCLOPramide) 10 mg Route: IVP; Site: right forearm; kc6 16:50 Drug: ProTONIX (pantoprazole) 40 mg Route: IVP; Site: right forearm; kc6 17:50 Follow up: Response: No adverse reaction kc6 16:59 Drug: morphine 4 mg Route: IVP; Infused Over: 4 mins; Site: right forearm; kc6 17:25 CANCELLED (Physician Discretion): morphine 5 mg IVP once over 4 mins cp 17:27 Drug: morphine 4 mg Route: IVP; Infused Over: 4 mins; Site: right forearm; jd3 18:59 Follow up: Response: No adverse reaction; Pain is unchanged, physician notified; RASS: kc6 Alert and Calm (0) 18:06 Drug: Insulin Regular Human 10 units {Co-Signature: jd3 (Omega Prince RN).} Route: kc6 IVP; Site: right forearm; 19:00 Follow up: Response: No adverse reaction kc6 18:45 Drug: Ativan (LORazepam) 0.5 mg Route: IVP; Site: right forearm; kc6 18:45 Drug: Dilaudid (HYDROmorphone) 1 mg Route: IVP; Site: right forearm; kc6 20:08 Drug: carvedilol 6.25 mg Route: PO; aa9 20:14 Drug: ProTONIX (pantoprazole) 8 mg/hr Route: IV; Rate: 25 ml/hr; Site: right aa9 antecubital; 20:15 Drug: NS 0.9% 1000 ml Route: IV; Rate: 125 ml/hr; Site: right antecubital; aa9 Disposition: 17:58 Co-signature as Attending Physician, Joshua SOLIS was immediately available onsite ms3 in the emergency department for consultation in the care of the patient. Disposition Summary: 10/01/22 19:14 Hospitalization Ordered Hospitalization Status: Inpatient Admission cp Condition: Stable cp Problem: an ongoing problem cp Symptoms: have improved cp Bed/Room Type: Standard cp Provider: Arden Marcos(10/02/22 04:54) sb4 Location: Telemetry/MedSurg (Inpatient)(10/02/22 18:55) bd Room Assignment: 420(10/02/22 18:55) bd Diagnosis - Upper abdominal pain, unspecified cp - Nausea with vomiting, unspecified cp Forms: - Medication Reconciliation Form cp - SBAR form cp Signatures: Dispatcher [employer] EDMS Abi Delacruz bd Sebastian Valverde PA PA cp Garcia, Cindy, RN RN cg Davies, Jonathon, RN RN Joshua Velez DO DO ms3 Chrissy Machado RN RN ld1 Dorothy Valdes RN RN aa9 Lillie Amaral RN RN kc6 Suni Ibarra PA-C PA-C sb4 Omega Prince RN jd3 Corrections: (The following items were deleted from the chart) 17:25 17:24 morphine 5 mg IVP once over 4 mins ordered. cp cp 18:23 18:18 Labs - recollect needed ordered. bd jd3 19:44 19:14 Telemetry/MedSurg (Inpatient) cp cg 19:44 19:14 cp cg 10/02 04:54 10/01 19:14 Suni Ibarra cp sb4 12/13 18:55 10/01 19:44 [facility] ER HOLD cg bd 10/02 18:55 10/01 19:44 ERHOLD- cg bd
[2022-10-01 19:26] LABS: Urine Blood Negative (Negative); Urine Glucose 2+ (Negative); Urine Protein 1+ (Negative)
--- NOTE | 2022-10-01 19:49 | P.HP ---
Certification for Inpatient Patient admitted to: Inpatient With expected LOS: <2 Midnights Patient will require the following post-hospital care: None Practitioner: I am a practitioner with admitting privileges, knowledge of patient current condition, hospital course, and medical plan of care. Services: Services provided to patient in accordance with Admission requirements found in Title 42 Section 412.3 of the Code of Federal Regulations Patient History Date of Service: 10/01/22 Reason for admission: Intractable N/V/Abd Pain History of Present Illness: Patient is a 57-year-old male with history of alcoholic liver cirrhosis, gastric varices, gastric erosions, type 2 diabetes, and gastroparesis who presented to the emergency department with a complaint of intractable abdominal pain, and nausea and vomiting. He reports trace blood in his vomit. Denies dark/tarry stool. Patient states he had an EGD with banding last and has been having continued pain, n/v since. He has not been able to hold anything down, even his medications. No significant lab abnormalities although BP has been elevated. CT abdomen pelvis showed "Duodenal wall thickening with adjacent fluid, gastric wall thickening, and distal esophageal wall thickening. The findings are more prominent than seen on the CT from 07/28/2022. Consider endoscopy for further evaluation." In the ED, he received several round of pain medications and antiemetics without relief of symptoms. He was additionally started on protonix drip. Dr. Parson contacted and wishes for patient to be admitted to hospitalist and he will consult. Patient is hospitalized for further management. Allergies No Known Allergies Allergy (Unverified 06/26/22 14:30) Home medications list reviewed: Yes Home Medications: B12/Levomefolate Calcium/B-6 [Foltx Tablet] 1 tab PO DAILY 07/28/22 Ferrous Sulfate [Ferrous Sulfate*] 325 mg PO DAILY 07/28/22 Omeprazole 20 mg PO BID 07/28/22 Thiamine Mononitrate (Vit B1) [Vitamin B-1] 100 mg PO DAILY 07/28/22 Docusate [Colace Cap*] 100 mg PO BID 30 Days #60 cap 08/05/22 Doxepin HCl [Sinequan*] 10 mg PO BEDTIME 30 Days #30 cap 08/05/22 Gabapentin [Neurontin*] 100 mg PO TID 30 Days #90 cap 10/16/22 Hydrocodone 5/APAP 325 [Severance 5/325*] 1 tab PO Q6H PRN #20 tab 08/05/22 Metoclopramide HCl [Reglan] 10 mg PO TIDWM 30 Days #90 tab 08/05/22 Ondansetron [Zofran] 4 mg PO Q6H PRN #30 tab 08/05/22 Sucralfate [Carafate*] 10 ml PO TIDWM 30 Days #900 ml 08/05/22 carvediloL [Carvedilol] 6.25 mg PO BID 30 Days #60 tab 08/05/22 - Past Medical/Surgical History Diabetic: Yes -: Liver cirrhosis -: Gastroparesis -: Gastric varices -: Diabetes mellitus -: Obesity -: EGD Psychosocial/ Personal History: Patient is . - Family History Family History: Reviewed- Non-Contributory - Social History Smoking Status: Never smoker Alcohol use: No CD- Drugs: No Caffeine use: Yes Place of Residence: Home Review of Systems Gastrointestinal: Nausea, Vomiting, Abdominal Pain, Other (Hematemesis) Physical Examination - Vital Signs Temperature: 98.1 F Blood Pressure: 193/101 Pulse: 79 Respirations: 18 Pulse Ox (%): 96 (room air) - Physical Exam General: Alert, In no apparent distress HEENT: Atraumatic, PERRLA, EOMI, Sclerae nonicteric Neck: Supple, 2+ carotid pulse no bruit, No LAD, Without JVD or thyroid abnormality Respiratory: Clear to auscultation bilaterally, Normal air movement Cardiovascular: Regular rate/rhythm, Normal S1 S2 Gastrointestinal: Soft and benign, Non-distended, Tenderness Musculoskeletal: No tenderness Integumentary: No rashes Neurological: Normal speech, Normal strength at 5/5 x4 extr, Normal tone, Normal affect - Studies Laboratory Data (last 24 hrs) 10/01/22 16:38: Sodium 134 L, Potassium 4.6, BUN 16, Creatinine 0.91, Glucose 361 H, Total Bilirubin 1.5 H, AST 27, ALT 33, Alkaline Phosphatase 89, Lipase 62 L 10/01/22 15:21: WBC 6.90, Hgb 13.8, Hct 41.7, Plt Count 94 L Assessment and Plan - Problems (Diagnosis) (1) Alcoholic cirrhosis of liver Current Visit: Yes Status: Chronic Qualifiers: Ascites presence: with ascites Qualified Code(s): K70.31 - Alcoholic cirrhosis of liver with ascites (2) GERD (gastroesophageal reflux disease) Current Visit: Yes Status: Chronic Qualifiers: Esophagitis presence: with esophagitis Esophagitis bleeding: without hemorrhage Qualified Code(s): K21.00 - Gastro-esophageal reflux disease with esophagitis, without bleeding (3) Gastroparesis Current Visit: Yes Status: Chronic (4) Insulin dependent type 2 diabetes mellitus Current Visit: Yes Status: Chronic (5) Intractable abdominal pain Current Visit: Yes Status: Acute (6) Intractable nausea and vomiting Current Visit: Yes Status: Acute - Plan Admit patient to the medical floor. Supportive measures with IV hydromorphone as needed for pain. IV Protonix and sucralfate for GERD. Aggressive IV hydration. IV Reglan for gastroparesis. Monitor renal function. NPO at midnight in case for EGD tomorrow with Dr. Palomo. Blood pressure control. IV hydralazine as needed for BP spikes. Monitor and replete electrolytes per protocol. Reconcile and continue home medications. SCDs for VTE prophylaxis. Full code Discharge Plan: Home Plan to discharge in: Greater than 2 days - Advance Directives Does patient have a Living Will: No Does patient have a Durable POA for Healthcare: No - Code Status/Comfort Care Code Status Assessed: Yes Code Status: Full Code Physician Review: Patient Assessed, Agree with Above Assessment and Plan Critical Care: No Time Spent Managing Pts Care (In Minutes): 50
[2022-10-01] MEDS ORDERED: carvediloL 6.25 MG TAB ONE (19:59)
[2022-10-01] MEDS ORDERED: NA CHLORIDE 0.9% 250 ML ONE (19:59)
[2022-10-01 20:00] LABS: Protime INR 1.21
[2022-10-01 20:06] LABS: Barbiturates NEGATIVE (NEGATIVE); Benzodiazepines NEGATIVE (NEGATIVE); Cocaine NEGATIVE (NEGATIVE); METHAMPHETAM NEGATIVE (NEGATIVE); Methadone NEGATIVE (NEGATIVE); Opiates POSITIVE (NEGATIVE); Phencyclidine NEGATIVE (NEGATIVE); THC Cannibis POSITIVE (NEGATIVE)
[2022-10-01 20:11] LABS: Urine RBC <5 /HPF (None Seen)
[2022-10-01] MEDS: PANTOPRAZOLE INJ 80 MG in NA CHLORIDE 0.9% 250 ML IV SCH (20:19)
[2022-10-01] MEDS ORDERED: NA CHLORIDE 0.9% 1,000 ML IV SCH (20:19)
[2022-10-01] MEDS ORDERED: ACETAMINOPHEN 500 MG TAB PO PRN (20:19)
[2022-10-01] MEDS ORDERED: HYDROMORPHONE HCL 1 MG/ML INJ IV PRN (20:19)
[2022-10-01] MEDS: NA CHLORIDE 0.9% 1,000 ML IV SCH (20:27)
[2022-10-01] MEDS ORDERED: SUCRALFATE 1 GM TABLET ONE (20:33)
[2022-10-01] MEDS ORDERED: HYDROMORPHONE HCL 1 MG/ML INJ ONE (20:34)
[2022-10-01] MEDS: HYDROMORPHONE HCL 1 MG/ML INJ IV PRN (20:38)
[2022-10-01] MEDS: SUCRALFATE 1 GM TABLET PO SCH (20:38)
[2022-10-02 00:01] LABS: SARS-CoV-2 Antigen Rapid Res Negative (Negative)
[2022-10-02] MEDS ORDERED: HYDRALAZINE HCL 20 MG/ML VIAL ONE (00:25)
[2022-10-02] MEDS: HYDRALAZINE HCL 20 MG/ML VIAL IV PRN (00:27)
[2022-10-02] MEDS ORDERED: HYDROMORPHONE HCL 1 MG/ML INJ ONE ×6 (00:31→20:43)
[2022-10-02] MEDS: HYDROMORPHONE HCL 1 MG/ML INJ IV PRN ×6 (00:32→20:46)
[2022-10-02] MEDS ORDERED: INSULIN -REGULAR HUMAN 50 UNIT/0.5 ML ML ONE ×3 (02:20→13:06)
[2022-10-02 02:59] LABS: Absolute Lymphocytes (CBC) 0.6 K/uL (0.7-4.9); Hematocrit 36.8 % (39.6-49.0); Lymphocytes % 7.4 % (15.3-44.8); MCV 84.9 fL (80-100); MPV 9.1 fL (7.6-11.3); RBC Red Blood Cell Count 4.33 M/uL (4.33-5.43)
[2022-10-02 03:22] LABS: Albumin 3.4 g/dL (3.4-5.0); Bilirubin Total 1.7 mg/dL (0.2-1.0); Magnesium 1.5 mg/dL (1.6-2.4); Phosphorus 2.8 mg/dL (2.5-4.9); Potassium 3.8 mmol/L (3.5-5.1); Protein, Total 7.8 g/dL (6.4-8.2); Thyroid Stimulating Hormone 0.616 uIU/mL (0.358-3.740)
[2022-10-02] MEDS ORDERED: NA CHLORIDE 0.9% 1,000 ML ONE ×2 (05:18→16:54)
[2022-10-02] MEDS ORDERED: PANTOPRAZOLE 40 MG INJ ONE (05:18)
[2022-10-02] MEDS ORDERED: NA CHLORIDE 0.9% 250 ML ONE (05:18)
[2022-10-02] MEDS: INSULIN -REGULAR HUMAN 50 UNIT/0.5 ML ML SQ SCH ×4 (05:32→18:00)
[2022-10-02] MEDS: PANTOPRAZOLE INJ 80 MG in NA CHLORIDE 0.9% 250 ML IV SCH ×2 (06:19→22:37)
[2022-10-02] MEDS: NA CHLORIDE 0.9% 1,000 ML IV SCH ×2 (06:21→16:27)
[2022-10-02] MEDS ORDERED: MAGNESIUM SULFATE 1 gm IVPB 1 GM/100 ML BAG IV ONE ×2 (07:00→08:58)
[2022-10-02] MEDS ORDERED: KCL 20 MEQ/100 mL IVPB 20 MEQ/100 ML BAG IV SCH (07:00)
[2022-10-02] MEDS ORDERED: INFLUENZA VACCINE (for 6+ mo) 0.5 ML DOSE IMVAC ONE (08:00)
[2022-10-02] MEDS ORDERED: SUCRALFATE 1 GM TABLET ONE (08:58)
[2022-10-02] MEDS ORDERED: KCL 20 MEQ/100 mL IVPB 100 ML IV ONE (08:58)
[2022-10-02] MEDS: SUCRALFATE 1 GM TABLET PO SCH ×4 (09:00→21:00)
[2022-10-02 09:48] LABS: Magnesium 1.7 mg/dL (1.6-2.4); Potassium 3.9 mmol/L (3.5-5.1)
[2022-10-02] MEDS ORDERED: METOCLOPRAMIDE 10 MG/2mL INJ ONE ×2 (10:37→16:54)
[2022-10-02] MEDS ORDERED: NA CHLORIDE 0.9% 100 ML IV ONE ×2 (10:37→16:54)
[2022-10-02] MEDS: METOCLOPRAMIDE 10 MG/2mL INJ IV PRN ×2 (10:41→16:55)
[2022-10-02] MEDS ORDERED: LORazepam 2 MG/ML VIAL ONE (13:05)
[2022-10-02] MEDS: LORazepam 2 MG/ML VIAL IV PRN ×2 (13:20→21:48)
--- NOTE | 2022-10-02 14:36 | EKG ---
Test Date: 2022-10-01 Test Time: 18:09:45 Molecular Biology Director: STEPHANIE MEASUREMENT RESULTS: Intervals: Rate: 74 MS: 190 QRSD: 92 QT: 436 QTc: 483 Clarence: P: 57 MS: 190 QRS: 40 T: 18 INTERPRETIVE STATEMENTS: Sinus rhythm with marked sinus arrhythmia Nonspecific ST abnormality Prolonged QT Abnormal ECG Compared to ECG 06/26/2022 11:38:13 ST (T wave) deviation now present Electronically Signed On 10-02-22 14:34:27 GARDENING MANAGER by Cy Ramirez
[2022-10-03] MEDS: METOCLOPRAMIDE 10 MG/2mL INJ IV PRN ×3 (00:04→21:36)
[2022-10-03] MEDS: HYDROMORPHONE HCL 1 MG/ML INJ IV PRN ×7 (00:21→21:36)
[2022-10-03] MEDS: INSULIN -REGULAR HUMAN 50 UNIT/0.5 ML ML SQ SCH ×4 (00:42→18:02)
[2022-10-03] MEDS: PANTOPRAZOLE INJ 80 MG in NA CHLORIDE 0.9% 250 ML IV SCH ×3 (01:00→22:54)
[2022-10-03] MEDS: NA CHLORIDE 0.9% 1,000 ML IV SCH ×4 (02:27→21:37)
[2022-10-03 04:10] LABS: Absolute Lymphocytes (CBC) 0.8 K/uL (0.7-4.9); Hematocrit 31.9 % (39.6-49.0); Lymphocytes % 20.8 % (15.3-44.8); MPV 8.8 fL (7.6-11.3)
[2022-10-03 04:19] LABS: Albumin 3.1 g/dL (3.4-5.0); Bilirubin Total 1.1 mg/dL (0.2-1.0); Magnesium 1.7 mg/dL (1.6-2.4); Potassium 3.9 mmol/L (3.5-5.1); Protein, Total 6.9 g/dL (6.4-8.2)
[2022-10-03] MEDS ORDERED: MAGNESIUM SULFATE 1 gm IVPB 1 GM/100 ML BAG IV ONE (07:00)
[2022-10-03] MEDS ORDERED: KCL 20 MEQ/100 mL IVPB 20 MEQ/100 ML BAG IV SCH (08:00)
[2022-10-03] MEDS: SUCRALFATE 1 GM TABLET PO SCH ×4 (09:00→21:36)
[2022-10-03] MEDS ORDERED: LIDOCAINE 1% MPF 5 ML VIAL ONE (10:31)
[2022-10-03] MEDS ORDERED: propofoL 200 MG/20 ML VIAL IV ONE ×2 (10:31)
--- NOTE | 2022-10-03 11:08 | ENDO RPT ---
[address], [address] EGD PROCEDURE REPORT EXAM DATE: 10/03/2022 PATIENT NAME: Eitan Gonzalez MR#: [id number] BIRTHDATE: 1965 ATTENDING: Michael Palomo Dr STATUS: inpatient - [facility] DEVELOPMENT MANAGER: Hanane Bone RN and Zaida Benítez INDICATIONS: The patient is a 57 yr old Male here for an EGD due to mid epigastric abdominal pain and nausea and vomiting and abnormal CT revealing inflamed / thickened wall of the esophagus / stomach / duodenum PROCEDURE PERFORMED: EGD, diagnostic MEDICATIONS: Per Anesthesia. TOPICAL ANESTHETIC: none CONSENT: The patient understands the risks and benefits of the procedure and understands that these risks include, but are not limited to: sedation, allergic reaction, infection, perforation and/or bleeding. Alternative means of evaluation and treatment include, among others: physical exam, x-rays, and/or surgical intervention. The patient elects to proceed with this endoscopic procedure. DESCRIPTION OF PROCEDURE: During intra-op preparation period all mechanical medical equipment was checked for proper function. Hand hygiene and appropriate measures for infection prevention was taken. Procedure, possible complications, and alternatives including but not limited to the possibility of bleeding, perforation, tear, infection, sepsis, need for surgery, need for blood transfusion, and anesthesia related complications were explained to the patient. After the risks, benefits and alternatives of the procedure were thoroughly explained, Informed consent was verified, confirmed and timeout was successfully executed by the treatment team. The patient was placed in the left lateral position. The patient was anesthetized with topical anesthesia. Through the anesthetized oropharyngeal area, the scope was passed without any difficulty. The [id number] ([id number]) endoscope was introduced through the mouth and advanced to the esophagus lower. Retroflexion was not performed. The gastroscope was then slowly withdrawn and removed. Three columns of grade II varices were found in the lower esophagus with 4+ bands on the varices - procedure terminated so as not to dislodge bands and cause GI bleeding. ADVERSE EVENTS: There were no complications. IMPRESSIONS: Three columns of grade II varices in the lower esophagus with 4+ bands on the varices - procedure terminated so as not to dislodge bands and cause GI bleeding RECOMMENDATIONS: acid suppression therapy REPEAT EXAM: Michael Palomo Dr eSigned: Michael Palomo Dr 10/03/2022 11:07 AM cc: Arden Marcos M.D. CPT CODES: ICD9 CODES:
[2022-10-03] MEDS: LORazepam 2 MG/ML VIAL IV PRN (16:56)
[2022-10-04] MEDS: HYDROMORPHONE HCL 1 MG/ML INJ IV PRN ×8 (01:09→22:00)
[2022-10-04] MEDS: METOCLOPRAMIDE 10 MG/2mL INJ IV PRN ×2 (04:04→16:28)
[2022-10-04 04:48] LABS: Absolute Lymphocytes (CBC) 0.6 K/uL (0.7-4.9); Hematocrit 30.5 % (39.6-49.0); Lymphocytes % 26.2 % (15.3-44.8); MCV 83.4 fL (80-100); MPV 8.3 fL (7.6-11.3); RBC Red Blood Cell Count 3.66 M/uL (4.33-5.43)
[2022-10-04 04:50] LABS: Protime INR 1.28
[2022-10-04 05:30] LABS: ALT/SGPT 24 U/L (16-61); AST/SGOT 17 U/L (15-37); Alkaline Phosphatase 63 U/L (45-117); BUN Blood Urea Nitrogen 13 mg/dL (7-18); Bicarbonate 28 mmol/L (21-32); Bilirubin Total 1.2 mg/dL (0.2-1.0); Folic Acid, (Folate) > 20.0 ng/mL (3.1-17.5); Glomerular Filtration Rate 110 ml/min (=/>90); Glucose Level 172 mg/dL (74-106); Magnesium 1.7 mg/dL (1.6-2.4); Potassium 3.7 mmol/L (3.5-5.1); Protein, Total 6.7 g/dL (6.4-8.2); Sodium Level 136 mmol/L (136-145)
[2022-10-04] MEDS: PANTOPRAZOLE INJ 80 MG in NA CHLORIDE 0.9% 250 ML IV SCH ×4 (05:30→22:04)
[2022-10-04] MEDS: INSULIN -REGULAR HUMAN 50 UNIT/0.5 ML ML SQ SCH ×4 (06:20→18:45)
[2022-10-04] MEDS: NA CHLORIDE 0.9% 1,000 ML IV SCH ×2 (06:56→18:24)
[2022-10-04] MEDS: SUCRALFATE 1 GM TABLET PO SCH ×4 (08:52→22:08)
[2022-10-04] MEDS ORDERED: POTASSIUM CL SA 10 MEQ TAB PO ONE (09:00)
[2022-10-04] MEDS ORDERED: MAGNESIUM SULFATE 1 gm IVPB 1 GM/100 ML BAG IV ONE (09:00)
[2022-10-04] MEDS: LORazepam 2 MG/ML VIAL IV PRN ×3 (11:56→18:25)
[2022-10-05] MEDS ORDERED: D50W 25 GM/50 ML SYRINGE IV PRN (00:41)
[2022-10-05] MEDS ORDERED: GLUCAGON 1 MG/VIAL IM PRN (00:41)
[2022-10-05] MEDS ORDERED: D10W 125 ML IV PRN (00:45)
[2022-10-05] MEDS: LORazepam 2 MG/ML VIAL IV PRN ×2 (01:03→09:15)
[2022-10-05] MEDS: HYDROMORPHONE HCL 1 MG/ML INJ IV PRN ×3 (01:05→07:49)
[2022-10-05] MEDS: NA CHLORIDE 0.9% 1,000 ML IV SCH ×3 (04:30→23:27)
[2022-10-05] MEDS: SUCRALFATE 1 GM TABLET PO SCH ×4 (07:49→21:06)
--- NOTE | 2022-10-05 07:53 | RAD REPORT ---
EXAM DESCRIPTION: USExtrem Venous W Compress Bil10/05/2022 12:01 am CLINICAL HISTORY: Leg pain COMPARISON: none FINDINGS: The common femoral, superficial femoral, popliteal and posterior tibial veins bilaterally are compressible and demonstrate augmentation. Doppler demonstrates good flow. Grayscale, color and spectral analysis performed on all vessels IMPRESSION: No evidence of deep venous thrombosis involving either lower extremity.
[2022-10-05] MEDS: INSULIN -REGULAR HUMAN 50 UNIT/0.5 ML ML SQ SCH ×5 (09:14→21:06)
[2022-10-05] MEDS: PANTOPRAZOLE INJ 80 MG in NA CHLORIDE 0.9% 250 ML IV SCH ×2 (10:40→21:15)
[2022-10-05] MEDS ORDERED: clonazePAM 1 MG TAB PO ONE (16:25)
[2022-10-05] MEDS ORDERED: MINERAL OIL 30 ML UCUP PO ONE (16:25)
[2022-10-05] MEDS: METOCLOPRAMIDE 10 MG/2mL INJ IV SCH ×2 (16:31→21:00)
[2022-10-05] MEDS: ERYTHROMYCIN 200 MG/5ML 100ML PO SCH (17:24)
[2022-10-05] MEDS: ESCITALOPRAM 20 MG TAB PO SCH (17:24)
[2022-10-05] MEDS: clonazePAM 0.5 MG TAB PO SCH (21:06)
[2022-10-06] MEDS: ERYTHROMYCIN 200 MG/5ML 100ML PO SCH ×3 (00:37→12:00)
[2022-10-06] MEDS: HYDRALAZINE HCL 20 MG/ML VIAL IV PRN (00:38)
[2022-10-06] MEDS ORDERED: METOPROLOL TARTRATE 5 MG/5 ML INJ IV STA (01:02)
[2022-10-06] MEDS: LORazepam 2 MG/ML VIAL IV PRN (01:16)
[2022-10-06 04:21] LABS: Absolute Lymphocytes (CBC) 0.5 K/uL (0.7-4.9); Hematocrit 33.6 % (39.6-49.0); Lymphocytes % 17.2 % (15.3-44.8); MCV 82.7 fL (80-100); MPV 8.5 fL (7.6-11.3); RBC Red Blood Cell Count 4.06 M/uL (4.33-5.43)
[2022-10-06 04:33] LABS: Magnesium 1.6 mg/dL (1.6-2.4); Potassium 3.6 mmol/L (3.5-5.1)
[2022-10-06] MEDS: METOPROLOL TAR 25 MG TAB PO SCH ×2 (05:21→16:59)
[2022-10-06] MEDS: HYDROMORPHONE HCL 1 MG/ML INJ IV PRN ×2 (05:22→11:53)
[2022-10-06] MEDS: PROMETHAZINE 25 MG TABLET PO PRN ×2 (06:00→21:59)
[2022-10-06] MEDS ORDERED: MAGNESIUM SULFATE 1 gm IVPB 1 GM/100 ML BAG IV ONE (07:00)
[2022-10-06] MEDS: INSULIN -REGULAR HUMAN 50 UNIT/0.5 ML ML SQ SCH ×4 (07:30→20:12)
[2022-10-06] MEDS: PANTOPRAZOLE INJ 80 MG in NA CHLORIDE 0.9% 250 ML IV SCH (08:49)
[2022-10-06] MEDS: METOCLOPRAMIDE 10 MG/2mL INJ IV SCH ×4 (08:52→20:11)
[2022-10-06] MEDS: ESCITALOPRAM 20 MG TAB PO SCH (08:52)
[2022-10-06] MEDS: clonazePAM 0.5 MG TAB PO SCH ×3 (08:52→20:11)
[2022-10-06] MEDS: SUCRALFATE 1 GM TABLET PO SCH ×4 (08:52→20:10)
[2022-10-06] MEDS ORDERED: POTASSIUM 25 MEQ EFFERV TAB PO ONE (09:00)
[2022-10-06] MEDS: NA CHLORIDE 0.9% 1,000 ML IV SCH ×3 (10:43→22:56)
[2022-10-06] MEDS: ONDANSETRON 4 MG/2 ML VIAL IV PRN ×2 (10:43→22:59)
[2022-10-06] MEDS ORDERED: SODIUM CHLORIDE 0.9% 10ML INJ IV PRN (15:25)
--- NOTE | 2022-10-06 15:37 | P.PN ---
Subjective Date of Service: 10/06/22 Chief Complaint: Intractable N/V/Abd Pain Subjective: New changes (Not feeling well on Reglan 5 mg IV qid and E-mycin 400 mg qid. N/V/AMBAR pain continues. Not exercising walking, only staying in bed.) Review of Systems General: Weakness, Malaise Gastrointestinal: Nausea, Vomiting, Abdominal Pain Physical Examination - Vital Signs Temperature: 97.7 F Blood Pressure: 203/98 Pulse: 79 Respirations: 18 Pulse Ox (%): 96 - Physical Exam General: Alert, Oriented x3, Cooperative, Mild distress HEENT: Atraumatic, Normocephalic, PERRLA, EOMI Neck: Supple Respiratory: Normal air movement Cardiovascular: Normal pulses Gastrointestinal: Tenderness Neurological: Normal speech, Normal strength at 5/5 x4 extr Assessment And Plan - Current Problems (Diagnosis) (1) Intractable nausea and vomiting Current Visit: Yes Status: Acute (2) Gastroparesis Current Visit: Yes Status: Chronic (3) Insulin dependent type 2 diabetes mellitus Current Visit: Yes Status: Chronic (4) Epigastric abdominal pain Current Visit: No Status: Acute (5) RUQ abdominal pain Current Visit: No Status: Acute - Plan REC: 1) Decrease PPI drip to 40 mg IV q12 2) Increase Reglan to 10 mg IV qac/qhs 3) Hold E-mycin for 24 hours and then decrease to 40 mg po qid (1 cc po qid) 4) monitor labs Physician Review: Patient Assessed, Agree with Above Assessment and Plan
[2022-10-06] MEDS ORDERED: HYDROMORPHONE HCL 1 MG/ML INJ IV PRN (15:57)
--- NOTE | 2022-10-06 17:18 | P.PN ---
Date of Service: 10/02/22 Subjective Patient is clinically doing well. Patient still having abdominal pain along with nausea and vomiting. May be related to gastroparesis from his narcotics. May need to decrease dosing. Physical Examination - Vital Signs Reviewed - Physical Exam General: Alert, In no apparent distress Respiratory: Clear to auscultation bilaterally, Normal air movement Cardiovascular: Regular rate/rhythm, Normal S1 S2 Gastrointestinal: Soft and benign, Non-distended, mild epigastric tenderness; no rebound or guarding Neurological: No focal deficits Assessment and Plan - Problems (Diagnosis) (1) Alcoholic cirrhosis of liver Current Visit: Yes Status: Chronic Ascites presence: with ascites Qualified Code(s): K70.31 - Alcoholic cirrhosis of liver with ascites (2) GERD (gastroesophageal reflux disease) Current Visit: Yes Status: Chronic Esophagitis presence: with esophagitis Esophagitis bleeding: without hemorrhage Qualified Code(s): K21.00 - Gastro-esophageal reflux disease with esophagitis, without bleeding (3) Gastroparesis Current Visit: Yes Status: Chronic (4) Insulin dependent type 2 diabetes mellitus Current Visit: Yes Status: Chronic (5) Intractable abdominal pain Current Visit: Yes Status: Acute (6) Intractable nausea and vomiting Current Visit: Yes Status: Acute - Plan 1. Continue with IV antiemetics 2. We will also start IV promotility agents 3. IV Protonix and sucralfate for GERD. 4. Aggressive IV hydration. 5. Monitor renal function 6. EGD with varices with banding in place 7. GI DVT prophylaxis
--- NOTE | 2022-10-06 17:21 | P.PN ---
Date of Service: 10/03/22 Subjective Pt is still with abd discomfort; nausea and vomiting Physical Examination - Vital Signs Reviewed - Physical Exam General: Alert, In no apparent distress Respiratory: Clear to auscultation bilaterally, Normal air movement Cardiovascular: Regular rate/rhythm, Normal S1 S2 Gastrointestinal: Soft and benign, Non-distended, mild epigastric tenderness; no rebound or guarding Neurological: No focal deficits Assessment and Plan - Problems (Diagnosis) (1) Alcoholic cirrhosis of liver Current Visit: Yes Status: Chronic Ascites presence: with ascites Qualified Code(s): K70.31 - Alcoholic cirrhosis of liver with ascites (2) GERD (gastroesophageal reflux disease) Current Visit: Yes Status: Chronic Esophagitis presence: with esophagitis Esophagitis bleeding: without hemorrhage Qualified Code(s): K21.00 - Gastro-esophageal reflux disease with esophagitis, without bleeding (3) Gastroparesis Current Visit: Yes Status: Chronic (4) Insulin dependent type 2 diabetes mellitus Current Visit: Yes Status: Chronic (5) Intractable abdominal pain Current Visit: Yes Status: Acute (6) Intractable nausea and vomiting Current Visit: Yes Status: Acute - Plan No change in the plan of care as mentioned below: 1. Continue with IV antiemetics 2. We will also start IV promotility agents-regaln +/-erythromycin 3. IV Protonix and sucralfate for GERD. 4. Conitnue with hydration and IV pain meds 5. Monitor renal function 6. EGD with varices with banding in place; Hgb is stable 7. GI DVT prophylaxis
--- NOTE | 2022-10-06 17:23 | P.PN ---
Date of Service: 10/04/22 Subjective Patient with no complaints voiced. Clinical symptoms remain stable. Remains with pain and nausea. Physical Examination - Vital Signs Reviewed - Physical Exam General: Alert, In no apparent distress Respiratory: Clear to auscultation bilaterally, Normal air movement Cardiovascular: Regular rate/rhythm, Normal S1 S2 Gastrointestinal: Soft and benign, Non-distended, mild epigastric tenderness; no rebound or guarding Neurological: No focal deficits Assessment and Plan - Problems (Diagnosis) (1) Alcoholic cirrhosis of liver Current Visit: Yes Status: Chronic Ascites presence: with ascites Qualified Code(s): K70.31 - Alcoholic cirrhosis of liver with ascites (2) GERD (gastroesophageal reflux disease) Current Visit: Yes Status: Chronic Esophagitis presence: with esophagitis Esophagitis bleeding: without hemorrhage Qualified Code(s): K21.00 - Gastro-esophageal reflux disease with esophagitis, without bleeding (3) Gastroparesis Current Visit: Yes Status: Chronic (4) Insulin dependent type 2 diabetes mellitus Current Visit: Yes Status: Chronic (5) Intractable abdominal pain Current Visit: Yes Status: Acute (6) Intractable nausea and vomiting Current Visit: Yes Status: Acute - Plan No change in the plan of care as mentioned below: 1. Continue with IV antiemetics 2. Continue with regaln +/-erythromycin 3. Continue with IV Protonix and sucralfate for GERD. 4. Conitnue with hydration and IV pain meds; will wean down because of persistent nausea and vomiting 5. Monitor renal function 6. EGD with varices with banding in place; Hgb is stable 7. GI DVT prophylaxis
--- NOTE | 2022-10-06 17:29 | P.PN ---
Date of Service: 10/05/22 Subjective upset as patient is not improving; not able to eat or tolerate diet; tried reglan and added erythromycin. Continue antiemetics; requesting pain medications but continues to have persistent nausea and vomitng Physical Examination - Vital Signs Reviewed - Physical Exam General: Alert, In no apparent distress Respiratory: Clear to auscultation bilaterally, Normal air movement Cardiovascular: Regular rate/rhythm, Normal S1 S2 Gastrointestinal: Soft and benign, Non-distended, mild epigastric tenderness; no rebound or guarding Neurological: No focal deficits Assessment and Plan - Problems (Diagnosis) (1) Alcoholic cirrhosis of liver Current Visit: Yes Status: Chronic Ascites presence: with ascites Qualified Code(s): K70.31 - Alcoholic cirrhosis of liver with ascites (2) GERD (gastroesophageal reflux disease) Current Visit: Yes Status: Chronic Esophagitis presence: with esophagitis Esophagitis bleeding: without hemorrhage Qualified Code(s): K21.00 - Gastro-esophageal reflux disease with esophagitis, without bleeding (3) Gastroparesis Current Visit: Yes Status: Chronic (4) Insulin dependent type 2 diabetes mellitus Current Visit: Yes Status: Chronic (5) Intractable abdominal pain Current Visit: Yes Status: Acute (6) Intractable nausea and vomiting Current Visit: Yes Status: Acute - Plan No change in the plan of care as mentioned below: 1. Continue with IV antiemetics; weaning off pain medications 2. Continue with regaln +/-erythromycin 3. Continue with IV Protonix and sucralfate for GERD. 4. Conitnue with hydration and IV pain meds; will wean down because of persistent nausea and vomiting 5. Monitor renal function 6. EGD with varices with banding in place; Hgb is stable 7. GI DVT prophylaxis
--- NOTE | 2022-10-06 17:30 | P.PN ---
Date of Service: 10/06/22 Subjective Will follow GI recommendations; will also initiate transfer per family request Physical Examination - Vital Signs Reviewed - Physical Exam General: Alert, In no apparent distress Respiratory: Clear to auscultation bilaterally, Normal air movement Cardiovascular: Regular rate/rhythm, Normal S1 S2 Gastrointestinal: Soft and benign, Non-distended, mild epigastric tenderness; no rebound or guarding Neurological: No focal deficits Assessment and Plan - Problems (Diagnosis) (1) Alcoholic cirrhosis of liver Current Visit: Yes Status: Chronic Ascites presence: with ascites Qualified Code(s): K70.31 - Alcoholic cirrhosis of liver with ascites (2) GERD (gastroesophageal reflux disease) Current Visit: Yes Status: Chronic Esophagitis presence: with esophagitis Esophagitis bleeding: without hemorrhage Qualified Code(s): K21.00 - Gastro-esophageal reflux disease with esophagitis, without bleeding (3) Gastroparesis Current Visit: Yes Status: Chronic (4) Insulin dependent type 2 diabetes mellitus Current Visit: Yes Status: Chronic (5) Intractable abdominal pain Current Visit: Yes Status: Acute (6) Intractable nausea and vomiting Current Visit: Yes Status: Acute - Plan No change in the plan of care as mentioned below: 1. Continue with IV antiemetics; weaning off pain medications 2. Continue with regaln +/-erythromycin 3. Continue with IV Protonix and sucralfate for GERD. 4. Conitnue with hydration and IV pain meds; will wean down because of persistent nausea and vomiting 5. Monitor renal function 6. EGD with varices with banding in place; Hgb is stable 7. GI DVT prophylaxis
[2022-10-06] MEDS: METOPROLOL TARTRATE 5 MG/5 ML INJ IV PRN (20:03)
[2022-10-06] MEDS: PANTOPRAZOLE 40 MG INJ IVP SCH (20:12)
[2022-10-06] MEDS ORDERED: HYDRALAZINE HCL 20 MG/ML VIAL IV ONE (20:43)
[2022-10-06] MEDS ORDERED: CLONIDINE HCL 0.3 MG TAB PO ONE (22:09)
[2022-10-07] MEDS: ONDANSETRON 4 MG/2 ML VIAL IV PRN ×2 (05:55→09:51)
[2022-10-07] MEDS: ERYTHROMYCIN 200 MG/5ML 100ML PO SCH ×3 (06:27→16:58)
[2022-10-07] MEDS: METOPROLOL TAR 25 MG TAB PO SCH ×2 (06:27→16:57)
[2022-10-07 06:53] LABS: Absolute Lymphocytes (CBC) 1.1 K/uL (0.7-4.9); Lymphocytes % 13.6 % (15.3-44.8); MCV 82.9 fL (80-100); MPV 7.6 fL (7.6-11.3); RBC Red Blood Cell Count 4.22 M/uL (4.33-5.43)
[2022-10-07 06:58] LABS: Protime INR 1.44
--- NOTE | 2022-10-07 07:32 | RAD REPORT ---
EXAM DESCRIPTION: RAD - Chest Single View - 10/07/2022 5:56 am CLINICAL HISTORY: pneumonia COMPARISON: Portable 10/01/2022 TECHNIQUE: AP portable chest image was obtained 10/07/2022 5:56 am . FINDINGS: Lungs are clear. No focal mass or consolidation. Interstitial markings are not outside of normal range for this shallow inspiration supine portable exam. A minimal interstitial viral infiltra te or interstitial edema could be masked in this setting. No significant pulmonary edema is present. No measurable pleural effusion and no pneumothorax. No acute bony abnormality seen. No acute aortic findings suspected. IMPRESSION: No new mass or consolidation. No significant change from comparison.
[2022-10-07 07:39] LABS: ALT/SGPT 28 U/L (16-61); AST/SGOT 16 U/L (15-37); Alkaline Phosphatase 77 U/L (45-117); BUN Blood Urea Nitrogen 13 mg/dL (7-18); Bicarbonate 23 mmol/L (21-32); Bilirubin Total 1.9 mg/dL (0.2-1.0); Folic Acid, (Folate) > 20.0 ng/mL (3.1-17.5); Glomerular Filtration Rate 111 ml/min (=/>90); Glucose Level 206 mg/dL (74-106); Lipase 43 U/L (73-393); Magnesium 1.5 mg/dL (1.6-2.4); NT PRO-BNP 1701 pg/mL (<125); Protein, Total 6.7 g/dL (6.4-8.2); Sodium Level 137 mmol/L (136-145)
[2022-10-07] MEDS ORDERED: Magnesium Sulfate 2gm IVPB 2 G/50 ML BAG IV ONE (08:12)
[2022-10-07] MEDS: ESCITALOPRAM 20 MG TAB PO SCH (08:19)
[2022-10-07] MEDS: SUCRALFATE 1 GM TABLET PO SCH ×4 (08:19→20:11)
[2022-10-07] MEDS: clonazePAM 0.5 MG TAB PO SCH ×3 (08:19→20:12)
[2022-10-07] MEDS: PANTOPRAZOLE 40 MG INJ IVP SCH ×2 (08:19→20:11)
[2022-10-07] MEDS: INSULIN -REGULAR HUMAN 50 UNIT/0.5 ML ML SQ SCH ×4 (08:20→20:09)
[2022-10-07] MEDS ORDERED: POTASSIUM CL 40 MEQ in NA CHLORIDE 0.9% 500 ML IV SCH (09:00)
[2022-10-07] MEDS ORDERED: MAGNESIUM 50% 3 GM in NA CHLORIDE 0.9% 100 ML IV SCH (09:00)
[2022-10-07] MEDS ORDERED: KCL 20 MEQ/100 mL IVPB 20 MEQ/100 ML BAG IV SCH (09:00)
[2022-10-07] MEDS: PIPER TAZO 3.375 GM in NA CHLORIDE 0.9% 100 ML IV SCH ×2 (09:32→17:06)
[2022-10-07] MEDS: METOCLOPRAMIDE 10 MG/2mL INJ IV SCH ×4 (09:33→20:11)
[2022-10-07 10:02] VITALS: O2SAT 96
[2022-10-07] MEDS: NA CHLORIDE 0.9% 1,000 ML IV SCH ×2 (14:37→20:43)
--- NOTE | 2022-10-07 18:23 | P.PN ---
Subjective Date of Service: 10/07/22 Chief Complaint: Intractable N/V/Abd Pain, DM gastroparesis Subjective: Improving (Feels much better today with increase in Reglan, holding E-mycin, and decrease to bid Protonix. Tolerating po diet. No emesis, almost no nausea / abdominal pain.) Review of Systems 10-point ROS is otherwise unremarkable General: Weakness (Improved.), Malaise (Improved.) Gastrointestinal: Nausea (Improved.), Abdominal Pain (Improved.) Physical Examination - Vital Signs Temperature: 97.8 F Blood Pressure: 125/65 Pulse: 84 Respirations: 19 Pulse Ox (%): 94 - Physical Exam General: Alert, In no apparent distress, Oriented x3, Cooperative HEENT: Normocephalic, PERRLA, EOMI Neck: Supple Respiratory: Normal air movement Cardiovascular: Normal pulses Gastrointestinal: Soft and benign, No tenderness, No rebound, No guarding Neurological: Normal speech, Normal strength at 5/5 x4 extr Assessment And Plan - Current Problems (Diagnosis) (1) Intractable nausea and vomiting Current Visit: Yes Status: Acute (2) Gastroparesis Current Visit: Yes Status: Chronic (3) Insulin dependent type 2 diabetes mellitus Current Visit: Yes Status: Chronic (4) Epigastric abdominal pain Current Visit: No Status: Acute (5) RUQ abdominal pain Current Visit: No Status: Acute - Plan REC: 1) continue Protonix 40 mg IV q12 2) continue Reglan 10 mg IV qac/qhs 3) consider E-mycin at 40 mg po qid (1 cc po qid) 4) monitor labs Physician Review: Patient Assessed, Agree with Above Assessment and Plan
[2022-10-07] MEDS: METOPROLOL TARTRATE 5 MG/5 ML INJ IV PRN (20:24)
[2022-10-07] MEDS: HYDROMORPHONE HCL 0.5 MG/0.5 ML INJ IV PRN (20:24)
[2022-10-07] MEDS: TRAMADOL HCL 50 MG TAB PO PRN (21:55)
[2022-10-07] MEDS ORDERED: cloNIDine HCL 0.1 MG TAB PO ONE (21:56)
[2022-10-07] MEDS: PROMETHAZINE 25 MG TABLET PO PRN (21:56)
--- NOTE | 2022-10-07 22:02 | P.PN ---
Date of Service: 10/07/22 Subjective Patient doing better. Meds was switched over to Reglan and erythromycin. Also with some anxiolytics. Pain medication decreased to q.8 hours IV. Spoke with Dr. Lovelace hospitalist team at [facility]. They have accepted transfer. Patient was very lethargic. Will attempt to make arrangements for transfer at this time. Physical Examination - Vital Signs Reviewed - Physical Exam General: Alert, In no apparent distress Respiratory: Clear to auscultation bilaterally, Normal air movement Cardiovascular: Regular rate/rhythm, Normal S1 S2 Gastrointestinal: Soft and benign, Non-distended, mild epigastric tenderness; no rebound or guarding Neurological: No focal deficits Assessment and Plan - Problems (Diagnosis) (1) Alcoholic cirrhosis of liver Current Visit: Yes Status: Chronic Ascites presence: with ascites Qualified Code(s): K70.31 - Alcoholic cirrhosis of liver with ascites (2) GERD (gastroesophageal reflux disease) Current Visit: Yes Status: Chronic Esophagitis presence: with esophagitis Esophagitis bleeding: without hemorrhage Qualified Code(s): K21.00 - Gastro-esophageal reflux disease with esophagitis, without bleeding (3) Gastroparesis Current Visit: Yes Status: Chronic (4) Insulin dependent type 2 diabetes mellitus Current Visit: Yes Status: Chronic (5) Intractable abdominal pain Current Visit: Yes Status: Acute (6) Intractable nausea and vomiting Current Visit: Yes Status: Acute - Plan No change in the plan of care as mentioned below: 1. Continue with IV antiemetics; weaning off pain medications 2. Continue with regaln +/-erythromycin 3. Continue with IV Protonix and sucralfate for GERD. 4. Conitnue with hydration and IV pain meds; will wean down because of persistent nausea and vomiting 5. Monitor renal function 6. EGD with varices with banding in place; Hgb is stable 7. Strict BS control 8. GI DVT prophylaxis
[2022-10-07 23:11] VITALS: BMI 30.6
[2022-10-08] MEDS: LORazepam 2 MG/ML VIAL IV PRN (00:52)
[2022-10-08] MEDS: PIPER TAZO 3.375 GM in NA CHLORIDE 0.9% 100 ML IV SCH ×3 (01:09→18:04)
[2022-10-08] MEDS: METOPROLOL TAR 25 MG TAB PO SCH ×2 (05:58→17:07)
[2022-10-08] MEDS: ERYTHROMYCIN 200 MG/5ML 100ML PO SCH ×4 (05:58→17:08)
[2022-10-08 06:14] LABS: Hematocrit 35.2 % (39.6-49.0); Lymphocytes % 14.6 % (15.3-44.8); MCV 83.4 fL (80-100); MPV 8.3 fL (7.6-11.3); RBC Red Blood Cell Count 4.22 M/uL (4.33-5.43)
[2022-10-08 06:32] LABS: Magnesium 1.8 mg/dL (1.6-2.4); Phosphorus 2.7 mg/dL (2.5-4.9); Potassium 3.6 mmol/L (3.5-5.1)
[2022-10-08] MEDS ORDERED: MAGNESIUM SULFATE 1 gm IVPB 1 GM/100 ML BAG IV ONE (09:00)
[2022-10-08] MEDS ORDERED: POTASSIUM CL SA 10 MEQ TAB PO ONE (09:00)
[2022-10-08] MEDS ORDERED: ACETAMINOPHEN 325 MG TABLET PO PRN (09:29)
[2022-10-08] MEDS: INSULIN -REGULAR HUMAN 50 UNIT/0.5 ML ML SQ SCH ×3 (09:46→17:07)
[2022-10-08] MEDS: METOCLOPRAMIDE 10 MG/2mL INJ IV SCH ×3 (09:46→17:06)
[2022-10-08] MEDS: PANTOPRAZOLE 40 MG INJ IVP SCH (09:46)
[2022-10-08] MEDS: ESCITALOPRAM 20 MG TAB PO SCH (09:47)
[2022-10-08] MEDS: SUCRALFATE 1 GM TABLET PO SCH ×3 (09:47→17:06)
[2022-10-08] MEDS: clonazePAM 0.5 MG TAB PO SCH (09:47)
[2022-10-08] MEDS: TRAMADOL HCL 50 MG TAB PO PRN ×2 (10:02→17:06)
[2022-10-08] MEDS ORDERED: FOLIC ACID 1 MG, MULTIVITAMINS INJ 10 ML, THIAMINE HCL 100 MG in NA CHLORIDE 0.9% 1,000 ML IV SCH (13:00)
[2022-10-08] MEDS: HYDROMORPHONE HCL 0.5 MG/0.5 ML INJ IV PRN (13:30)
--- NOTE | 2022-10-08 18:14 | P.DS ---
Admission Date: 10/01/22 Discharge Date: 10/08/22 Disposition: TRANSFER TO [facility] Comment: [facility] Discharge Condition: GOOD Reason for Admission: Intractable N/V/Abd Pain, DM gastroparesis Consultations: 1. Gastroenterology Procedures: - 10/03/2022 - Esophagogastroduodenoscopy Hospital Course: DIAGNOSES: # Intractable Nausea/Vomiting # Alcoholic Cirrhosis complicated by Portal Hypertension with Esophageal Varices s/p Banding # Type II Diabetes Mellitus complicated by Gastroparesis # Gastroesophageal Reflux Disease # Substance Use Disorder - [facility] COURSE: Mr. Eitan Gonzalez is a 57 year old male with a past medical history significant for alcoholic cirrhosis complicated by portal hypertension with esophageal varices s/p banding, type II diabetes mellitus, gastroparesis, gastroesophageal reflux disease who was admitted to the [facility] on 10/01/2022 for intractable abdominal pain, nausea, and vomiting. He was admitted to the Medicine service. CT abdomen/pelvis revealed, "duodenal wall thickening with adjacent fluid, gastric wall thickening, and distal esophageal wall thickening. The findings are more prominent than seen on the CT from 07/28/2022." Gastroenterology was consulted and he was evaluated by Dr. Palomo. He underwent an esophagogastroduodenoscopy, which revealed the esophageal varices with banding intact. Despite aggressive treatment with anti- emetics and erythromycin, his symptoms continued to worsen. Given that he had previously been seen by Hepatology at [facility], he and his requested transfer for continuity of care. Dr. Marcos completed doc-to-doc with [facility] hospitalist. He was accepted for transfer this evening. On 10/08/2022, he was seen on rounds and deemed medically stable for transfer. He was given the opportunity to ask questions and reported no further questions. Furthermore, all questions were answered to the best of my ability. Today, I personally spent 20 minutes on his case, of which greater than 50% of the time was spent in patient education, counseling, and coordination of care as described above. Vital Signs/Physical Exam: Temp Pulse Resp BP Pulse Ox 97.1 F 71 16 98/66 97 10/08/22 16:00 10/08/22 16:00 10/08/22 16:00 10/08/22 16:00 10/08/22 16:00 General: Alert, In no apparent distress, Oriented x3 HEENT: Atraumatic, EOMI, Sclerae nonicteric Neck: JVD not distended Respiratory: Clear to auscultation bilaterally, Normal air movement Cardiovascular: No edema, Regular rate/rhythm, Normal S1 S2, No gallops, No ru bs, No murmurs Gastrointestinal: Normal bowel sounds, Soft and benign, Non-distended, No rebound, No guarding, Tenderness (minimal, generalized) Musculoskeletal: No clubbing Integumentary: No rashes Neurological: Normal speech, Cranial nerves 3-12 intact, Normal affect Laboratory Data at Discharge: WBC 7.00 K/uL (4.3-10.9) 10/08/22 05:44 Hgb 11.9 g/dL (13.6-17.9) L 10/08/22 05:44 Hct 35.2 % (39.6-49.0) L 10/08/22 05:44 Plt Count 73 K/uL (152-406) L 10/08/22 05:44 PT 15.8 SECONDS (9.5-12.5) H 10/07/22 06:39 INR 1.44 10/07/22 06:39 APTT 29.0 SECONDS (24.3-36.9) 10/07/22 06:39 Sodium 134 mmol/L (136-145) L 10/08/22 05:44 Potassium 3.6 mmol/L (3.5-5.1) D 10/08/22 05:44 BUN 16 mg/dL (7-18) 10/08/22 05:44 Creatinine 0.80 mg/dL (0.70-1.30) 10/08/22 05:44 Glucose 262 mg/dL (74-106) H 10/08/22 05:44 Phosphorus 2.7 mg/dL (2.5-4.9) 10/08/22 05:44 Magnesium 1.8 mg/dL (1.6-2.4) 10/08/22 05:44 Total Bilirubin 1.9 mg/dL (0.2-1.0) H 10/07/22 06:39 AST 16 U/L (15-37) 10/07/22 06:39 ALT 28 U/L (16-61) 10/07/22 06:39 Alkaline Phosphatase 77 U/L (45-117) 10/07/22 06:39 Triglycerides 85 mg/dL (<150) 10/02/22 02:14 Cholesterol 202 mg/dL (<200) H 10/02/22 02:14 HDL Cholesterol 51 mg/dL (40-60) 10/02/22 02:14 Cholesterol/HDL Ratio 3.96 10/02/22 02:14 Lipase 43 U/L (73-393) L 10/07/22 06:39 Home Medications: RX: Ferrous Sulfate [Ferrous Sulfate*] 325 mg PO DAILY 07/28/22 RX: Thiamine Mononitrate (Vit B1) [Vitamin B-1] 100 mg PO DAILY 07/28/22 Ondansetron [Zofran] 4 mg PO Q6H PRN #30 tab 08/05/22 RX: Doxepin HCl [Sinequan*] 10 mg PO BEDTIME 30 Days #30 cap 08/05/22 RX: Gabapentin [Neurontin*] 100 mg PO TID 30 Days #90 cap 08/05/22 RX: Metoclopramide HCl [Reglan] 10 mg PO TIDWM 30 Days #90 tab 08/05/22 RX: carvediloL [Carvedilol] 25 mg PO BID 10/02/22 Polyethylene Glycol 3350 [Miralax] 1 packet PO DAILY 10/03/22 RX: Carvedilol [Coreg] 1 tab PO BID 10/03/22 RX: Melatonin 1 tab PO BEDTIME 10/03/22 RX: Pantoprazole Sodium 1 tab PO BID 10/03/22 Lipase/Protease/Amylase [Sonja Ulrich 36,000 Unit Capsule] 2 cap PO SEECOM 10/04/22 RX: Metformin HCl 1 tab PO BID 10/04/22 RX: Promethazine Tab [Phenergan*] 1 tab PO BEDTIME 10/04/22 RX: Tramadol HCl [Ultram] 1 tab PO TID PRN 10/04/22 Diet: AHA Activity: Ad jennifer Followup: BOBBI MARTINES [Primary Care Provider] - Time spent managing pt's care (in minutes): 20
[2022-10-08 22:12] VITALS: BP 119/69; TEMP 97.6
--- NOTE | 2022-10-10 14:02 | EKG ---
Test Date: 2022-10-08 Test Time: 06:12:32 Boiler Attendant: STEPHEN MEASUREMENT RESULTS: Intervals: Rate: 118 IL: QRSD: 82 QT: 356 QTc: 498 [place]: P: IL: QRS: -9 T: -35 INTERPRETIVE STATEMENTS: Atrial fibrillation with rapid ventricular response Abnormal ECG Compared to ECG 10/01/2022 18:09:45 Sinus rhythm no longer present Sinus arrhythmia no longer present ST (T wave) deviation no longer present Prolonged QT interval no longer present Electronically Signed On 10-10-22 14:00:25 MOLD CARPENTER by Cy Ramirez
== END 2022-10-08 20:45 | disposition short-term general hospital (02) | DRG 442 ==
LOC: ER 14:53 → ERHOLD 19:43 → 4TH 10-02 19:53
PROVIDERS: ADMIT Hospitalist; ATTEND Internal Medicine
PROC: 06L38CZ Occlusion of Esophageal Vein with Extraluminal Device, Via Natural or Artificial Opening Endoscopic (ICD-10-PCS; principal; 2022-10-03 10:15)
DX: K76.6 Portal hypertension (principal); I85.10 Secondary esophageal varices without bleeding; K70.31 Alcoholic cirrhosis of liver with ascites; E11.65 Type 2 diabetes mellitus with hyperglycemia; E11.43 Type 2 diabetes mellitus with diabetic autonomic (poly)neuropathy; K31.84 Gastroparesis; K21.00 Gastro-esophageal reflux disease with esophagitis, without bleeding; Z88.8 Allergy status to other drugs, medicaments and biological substances; Z79.4 Long term (current) use of insulin; Z79.84 Long term (current) use of oral hypoglycemic drugs; Z79.899 Other long term (current) drug therapy; Z20.822 Contact with and (suspected) exposure to COVID-19
CPT/HCPCS: 36415; 71045; 74177; 80048; 80053; 80061; 80307; 80320; 81003; 81015; 82140; 82607; 82746; 82947; 83540; 83690; 83735; 83880; 84100; 84145; 84443; 84484; 85025; 85044; 85610; 85730; 87804; 87811; 93005; 93970; 94010; 97116; 97530; 99285; C9113; J0360; J1170; J1815; J2001; J2405; J2543; J2704; J2765; J3411; J3475; J3480; J7030; J7040; J7050; Q0169; Q9967

== ENCOUNTER 2022-12-03 11:20 | Observation (INO) | payer BC, OTHER ==
--- OUTSIDE RECORDS SUMMARY | 2022-12-03 11:39 | XMS REPORT | Continuity of Care Document ---
:1965 Author Organization [facility] t Address [address] [place] [address] Dr. [address] [place] [address] Care Team Providers Name Role Phone Bar Jameson MD Primary Care Physician KAREN MORALEZ Attending Clinician Unavailable BAR JAMESON Attending Clinician Unavailable JORGE A LYONS Attending Clinician Unavailable JORGE A LYONS Attending Clinician Unavailable Bar Jameson MD Attending Clinician Doctor Unassigned, Boles Attending Clinician Unavailable Laurie DISK RECORDIST, José Luis Attending Clinician Garrett VALENCIA, Jaylin Bain Attending Clinician JAYLIN MILLARD Attending Clinician Unavailable Jayy Crow MD Attending Clinician Roberta Stewart MD Attending Clinician Berenice Quesada MD Attending Clinician Melly Olsen MD Attending Clinician Quita Conti MD Attending Clinician MELLY OLSEN Attending Clinician Unavailable Yoseph Vivsa MD Attending Clinician Guillermo Cabrales MD Attending Clinician ROBERTA STEWART Attending Clinician Unavailable Chanel Parrish Attending Clinician Jack Metz MD Attending Clinician Anil Orozco MA Attending Clinician Unavailable CHANEL KIMBALL Attending Clinician Unavailable Pob, [facility] Main Attending Clinician Unavailable EDIN SANCHEZ Attending Clinician Unavailable JOSÉ LUIS BRENNAN Attending Clinician Unavailable MIN IVERSON Attending Clinician Unavailable Inez ARCHER, Imani Alva Attending Clinician Unavailable ANA ROSA CHAPMAN Attending Clinician Unavailable Arleth SAVAGE, Brooks Welch Attending Clinician Annie SAVAGE, Ratna Rojo Attending Clinician Ari SAVAGE, Ana Rosa Rey Attending Clinician [phone] Guanako Schaffer MD Attending Clinician Carolin Strickland MD Attending Clinician WILLI KRUEGER Attending Clinician Unavailable RICHARD RAMIREZ Attending Clinician Unavailable Maricel Nixon MD Attending Clinician LINDA ROMAN Attending Clinician Unavailable LINDA ROMAN Attending Clinician Unavailable Linda Roman DO Attending Clinician Genesis Ho OD Attending Clinician GENESIS HO Attending Clinician Unavailable NYASIA MEEKS Attending Clinician Unavailable Nyasia Pa Attending Clinician ESTRADA PERKINS Attending Clinician Unavailable Estrada Perkins MD Attending Clinician JASWINDER MILLER Attending Clinician Unavailable Evelyn Jackson MD Attending Clinician EVELYN JACKSON Attending Clinician Unavailable Carmen Rose MD Attending Clinician CARMEN ROSE Attending Clinician Unavailable Min Mai Attending Clinician Delon SANDHU Attending Clinician Unavailable Delon Golden Attending Clinician JOSE ZAMORA Attending Clinician Unavailable Jose Wang Attending Clinician MONIQUE DUNLAP Attending Clinician Unavailable KAREN MORALEZ Admitting Clinician Unavailable QUITA CONTI Admitting Clinician Unavailable BROOKS [place] Admitting Clinician Unavailable RATNA VALENCIA ALIA Admitting Clinician Unavailable LINDA ROMAN Admitting Clinician Unavailable Delon SANDHU Admitting Clinician Unavailable JOSE ZAMORA Admitting Clinician Unavailable Payers Payer Name Policy Type Policy Number Effective Date Expiration Date S ource [employer]IS[employer] PPO OPTIONS [id number] 2021 00:00:00 [employer] [place] OUT [id number] 2022 OF [facility] 00:00:00 [facility] [id number] 2020 PPO/POS 00:00:00 [facility] 3 [id number] 2022 00:00:00 Problems Condition Condition Condition Status Onset Resolution Last Treating Co mments Source Name Details Category Date Date Treatment Clinician Date Nausea & Nausea & Disease Active 2021-10 [facility]: [place] [id number] Center Obstipatio Obstipatio Disease Active 2021-10 U nivers n n 1-18 ity of 00:00: [place] [facility] Branch 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 00:00: [place] with with 00 Medical bleeding bleeding Branch Gastroesop Gastroesop Disease Active 2021-10 U nivers hageal hageal 0-18 ity of reflux reflux 00:00: [place] disease disease 00 Medical with with Branch esophagiti esophagiti s and s and hemorrhage hemorrhage Nausea and Nausea and Disease Active 2021-10 U nivers vomiting vomiting 0-18 ity of in adult in adult 00:00: [place] 00 [facility] Branch Hospital Hospital Disease Active 2021-10 Unive rs discharge discharge 0-18 ity of follow-up follow-up 00:00: [facility] Branch 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 0-18 it y of 00:00: [place] [facility] Branch Chronic Chronic Disease Active 2021-10 Univers idiopathic idiopathic 0-18 it y of [place] Branch Hepatic Hepatic Disease Active [facility] encephal[facility] encephalop 07-18 [facility] athy athy 00:00: Medical 00 Center Other Other Disease Active [facility] cirrhosis cirrhosis 07-18 [facility] of liver of liver 00:00: Medica l 00 Center Gastropare Gastropare Disease Active [facility] sis sis 07-18 [facility] 00:00: Medical 00 Center Generalize Generalize Disease Active [facility] d d 07-18 [facility] abdominal abdominal 00:00: Medi vidal pain pain 00 Center Lung Lung Disease Active [facility] nodule nodule 07-18 [facility] 00:00: Medical 00 [place] Portal Portal Disease Active [facility] hypertensi hypertensi 07-18 [facility] on on 00:00: Medical 00 [place] Screening Screening Disease Active [facility] for for 07-18 [facility] malignant malignant 00:00: Medi vidal neoplasm neoplasm 00 Center Hepatitis Hepatitis Disease Active [facility] B core B core 07-18 [facility] antibody antibody 00:00: Medica l positive positive 00 Center 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 00:00: Medical 00 [place] GI bleed GI bleed Disease Active [facility] 00[facility]: Medical 00 [place] 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 7-21 ity of of liver of liver 00:00: [place] without without 00 Medical ascites ascites Branch Abnormal Abnormal Disease Active Unive rs platelets platelets 7-08 ity of 00:00: [place] 00 Medical Branch Pain of Pain of Disease Active Univers upper upper 7-08 ity of abdomen abdomen 00:00: [place] 00 Medical Branch Restlessne Restlessne Disease Active U nivers ss and ss and 7-08 ity of agitation agitation 00:00[place] Other Other Disease Active Univers cirrhosis cirrhosis 6-10 ity of of liver of liver 00:00: [place] 00 Medical Branch Cholelithi Cholelithi Disease Active U nivers asis asis 6-10 ity of without without 00:00: [place] cholecysti cholecysti 00 Me dical tis tis Branch Anxiety, Anxiety, Disease Active Unive rs generalize generalize 6-10 it y of d d 00:00: [place] Medical Branch Primary Primary Disease Active Univers insomnia insomnia 6-10 ity of 00:00: [place] Medical Branch Diverticul Diverticul Disease Active U nivers osis of osis of 6-10 ity of colon colon 00:00: [place] Medical Branch Idiopathic Idiopathic Disease Active U nivers acute acute 6-10 ity of pancreatit pancreatit [place] without is without 00 Me dical infection infection Bran ch or or necrosis necrosis Diabetic Diabetic Disease Active Unive rs gastropare gastropare 6-10 it y of sis sis 00:00: [place] Medical Branch Current Current Disease Active Univers moderate moderate 6-10 ity of episode of episode of 00:00[place] major major 00 Medical depressive depressive Br anch disorder disorder without without prior prior episode episode Splenomega Splenomega Disease Active U nivers ly ly 6-10 ity of 00:00: [place] Medical Branch Alcohol Alcohol Disease Active Univers use use 6-10 ity of 00:00: [place] Medical Branch Abnormal Abnormal Disease Active Unive rs EKG EKG 5-18 ity of 00:00: [place] Medical Branch Need for Need for Disease Active Unive rs hepatitis hepatitis 5-18 ity of C C 00:00: [place] screening screening 00 Medi vidal test test [...] diabetes 4-25 ity of mellitus mellitus 00:00: [place] with with 00 Medical diabetic diabetic Branch polyneurop polyneurop athy, with athy, with long-term long-term current current use of use of insulin insulin Essential Essential Disease Active Uni vers hypertensi hypertensi 4-25 it y of on on 00:00: [place] Medical Branch Erectile Erectile Disease Active Unive rs dysfunctio dysfunctio 02-12 it y of n, n, 00:00: [place] unspecifie unspecifie 00 Me dical d erectile d erectile Br anch dysfunctio dysfunctio n type n type Anxiety Anxiety Disease Active Univers and and 02-12 ity of depression depression [place] Iron Iron Disease Active Univers deficiency deficiency 02-12 it y of anemia, anemia, 00:00: [place] unspecifie unspecifie 00 Me dical d iron d iron Branch deficiency deficiency anemia anemia type type Allergies, Adverse Reactions, Alerts Allergy Allergy Status Severity Reaction(s) Onset Inactive Treating Comm ents Source Name Type Date Date Clinician Dulaglut Drug Active Nausea And Pancreati [facility] miracle Allergy Vomiting 5-20 [facility] DULAGLUT DRUG Active High N/V Univers MIRACLE INGREDI 5-20 ity of 00:00: [place] 00 Medical Branch Dulaglut Propensi Active Unknown - Pancreati Univers miracle ty to See comments 5-20 tis ity of adverse 00:00: Pancreati [place] reaction 00 tis Medical s Branch DULAGLUT Allergy Active High N\\T\\V [facility] MIRACLE 5-20 [facility] 00:00: Medical [address] [place] [address] NO KNOWN Allergy Active [facility] Social History Social Habit Start Date Stop Date Quantity Comments Source History of tobacco Cigarette Smoker University of use [facility] History SDOH [facility] Alcohol Frequency Medical Center History SDOK [facility] Alcohol Std Drinks Medica l Center History SDOH [facility] Alcohol Binge Medical [place] History SDOH [facility] Transport Non-Med Medical Center Exposure to 2022-11-17 2022-11-27 Not sure University of SARS-CoV-2 (event) 00:00:00 10:37:00 [facility] Alcohol intake 2022-10-25 2022-10-25 [facility] of alcohol Medical Center (finding) History SDOH 2022-10-11 2022-10-[address] [facility] Alcohol Comment 00:00:00 00:00:00 6 months ago as [facility] of 10/11/22 Tobacco Comment 2022-10-11 2022-10-11 quit [address] [facility] 00:00:00 00:00:00 as of 10/11/22 Medical Ce nter Tobacco use and 2022-08-14 2022-08-[address] [facility] exposure 00:00:00 00:00:00 Medical Center History [facility] 2022-07-02 2022-07-[address] [facility] Transport Med 00:00:00 00:00:[address] [place] [facility] 2022-07-02 2022-07-[address] [facility] Housing Unable to 00:00:00 00:00:00 Medical Center Pay History [facility] 2022-07-02 2022-07-[address] [facility] Housing Places 00:00:00 00:00:00 Medical Ce nter Lived History [facility] 2022-07-02 2022-07-[address] [facility] Housing Homeless 00:00:00 00:00:00 Medical Center Last Year Cigarettes smoked 2022-05-02 2022-05-02 Univers ity of current (pack per 00:00:00 00:00:00 [facility] ) - Reported Branch Cigarette 2022-05-02 2022-05-02 University of pack-years 00:00:00 00:00:00 [facility] Sex [birth year] At [birth year] M ISABEL Yusufs 00:00:00 00:00:00 Medical Center Smoking Status Start Date Stop Date Source Tobacco smoking [place] consumption unknown Medical [facility] Ex-smoker 2022-05-02 00:00:00 2022-05-02 [facility] [place] [facility] Medications Ordered Filled Start Stop Current Ordering Indication Dosage Frequency Signature Comments Components Source Medication Medication Date Date Medication? Clinician (SIG) Name Name gabapentin Yes [id number] 200mg Take 2 Un darius 100 mg 2-07 capsules ity of capsule 00:00: by mouth [place] 00 in the Medical morning Branch and 2 capsules at noon and 2 capsules in the evening. DULoxetine Yes [id number] 20mg Take 1 Univers 20 mg 2-07 capsule by ity of capsule 00:00: mouth in [place] [address] the Medical morning Branch and 1 capsule in the evening. thiamine 2023-0 Yes [id number] 100mg Take 1 U nivers 100 mg 2-07 tablet by ity of tablet 00:00: mouth in [place] 00 the Medical morning. Branch gabapentin 2023-0 Yes [id number] 200mg Take 2 Un darius 100 mg 2-07 capsules ity of capsule 00:00: by mouth [place] 00 in the Medical morning Branch and 2 capsules at noon and 2 capsules in the evening. DULoxetine 2023-0 Yes [id number] 20mg Take 1 Univers 20 mg 2-07 capsule by ity of capsule 00:00: mouth in [place] 00 the Medical morning Branch and 1 capsule in the evening. thiamine 2023-0 Yes [id number] 100mg Take 1 U nivers 100 mg 2-07 tablet by ity of tablet 00:00: mouth in [place] 00 the Medical morning. Branch gabapentin 2023-0 Yes [id number] 200mg Take 2 Un darius 100 mg 2-07 capsules ity of capsule 00:00: by mouth [place] 00 in the Medical morning Branch and 2 capsules at noon and 2 capsules in the evening. DULoxetine 2023-0 Yes [id number] 20mg Take 1 Univers 20 mg 2-07 capsule by ity of capsule 00:00: mouth in [place] the Medical morning Branch and 1 capsule in the evening. thiamine 2023-0 Yes [id number] 100mg Take 1 U nivers 100 mg 2-07 tablet by ity of tablet 00:00: mouth in [place] 00 the Medical morning. Branch gabapentin 2023-0 Yes [id number] 200mg Take 2 Un darius 100 mg 2-07 capsules ity of capsule 00:00: by mouth [place] 00 in the Medical morning Branch and 2 capsules at noon and 2 capsules in the evening. DULoxetine 2023-0 Yes [id number] 20mg Take 1 Univers 20 mg 2-07 capsule by ity of capsule 00:00: mouth in [place] the Medical morning Branch and 1 capsule in the evening. thiamine 2023-0 Yes [id number] 100mg Take 1 U nivers 100 mg 2-07 tablet by ity of tablet 00:00: mouth in [place] 00 the Medical morning. Branch traMADoL 50 2023-0 Yes [id number] 50mg TAKE 1 Univ ers mg tablet 2-01 TABLET BY ity o f 00:00: MOUTH [place] 00 EVERY 6 Medical (SIX) Branch HOURS NEEDED FOR PAIN (SCALE 7-10) (CANNOT TAKE NSAIDS). INDICATION S: CHRONIC PAIN traMADoL 50 3-0 Yes [id number] 50mg TAKE 1 Univ ers mg tablet 2-01 TABLET BY ity o f 00:00: MOUTH [place] 00 EVERY 6 Medical (SIX) Branch HOURS NEEDED FOR PAIN (SCALE 7-10) (CANNOT TAKE NSAIDS). INDICATION S: CHRONIC PAIN dapaglifloz 2023-0 Yes [id number] 10mg Take 1 Univers in 2-01 tablet by ity of (FARXIGA) 00:00: [place] 10 mg 00 the Medical tablet morning. Branch metFORMIN 2023-0 Yes [id number] 1000mg Take 2 Univers 500 mg 2-01 tablets by ity of tablet 00:00: mouth in [place] 00 the Medical morning Branch and 2 tablets in the evening. Take with meals. traMADoL 50 3-0 Yes [id number] 50mg TAKE 1 Univ ers mg tablet 2-01 TABLET BY ity o f 00:00: MOUTH [place] 00 EVERY 6 Medical (SIX) Branch HOURS NEEDED FOR PAIN (SCALE 7-10) (CANNOT TAKE NSAIDS). INDICATION S: CHRONIC PAIN dapaglifloz 2023-0 Yes [id number] 10mg Take 1 Univers in 2-01 tablet by ity of (FARXIGA) 00:00: [place] 10 mg 00 the Medical tablet morning. Branch metFORMIN 2023-0 Yes [id number] 1000mg Take 2 Univers 500 mg 2-01 tablets by ity of tablet 00:00: mouth in [place] the Medical morning Branch and 2 tablets in the evening. Take with meals. dapaglifloz 2023-0 Yes [id number] 10mg Take 1 Univers in 2-01 tablet by ity of (FARXIGA) 00:00: [place] 10 mg 00 the Medical tablet morning. Branch metFORMIN 2023-0 Yes [id number] 1000mg Take 2 Univers 500 mg 2-01 tablets by ity of tablet 00:00: mouth in [place] the Medical morning Branch and 2 tablets in the evening. Take with meals. dapaglifloz 2023-0 Yes [id number] 10mg Take 1 Univers in 2-01 tablet by ity of (FARXIGA) 00:00: [place] 10 mg 00 the Medical tablet morning. Branch metFORMIN 2023-0 Yes [id number] 1000mg Take 2 Univers 500 mg 2-01 tablets by ity of tablet 00:00: mouth in [place] 00 the Medical morning Branch and 2 tablets in the evening. Take with meals. dapaglifloz 2023-0 Yes [id number] 10mg Take 1 Univers in 2-01 tablet by ity of (FARXIGA) 00:00: [place] 10 mg 00 the Medical tablet morning. Branch metFORMIN 2023-0 Yes [id number] 1000mg Take 2 Univers 500 mg 2-01 tablets by ity of tablet 00:00: mouth in [place] 00 the Medical morning Branch and 2 tablets in the evening. Take with meals. dapaglifloz 2023-0 Yes [id number] 10mg Take 1 Univers in 2-01 tablet by ity of (FARXIGA) 00:00: mouth [place] 10 mg 00 the Medical tablet morning. Branch metFORMIN 3-0 Yes [id number] 1000mg Take 2 Univers 500 mg 2-01 tablets by ity of tablet 00:00: mouth in [place] 00 the Medical morning Branch and 2 tablets in the evening. Take with meals. dapaglifloz 2023-0 Yes [id number] 10mg Take 1 Univers in 2-01 tablet by ity of (FARXIGA) 00:00: mouth [place] 10 mg 00 the Medical tablet morning. Branch metFORMIN 3-0 Yes [id number] 1000mg Take 2 Univers 500 mg 2-01 tablets by ity of tablet 00:00: mouth in [place] the Medical morning Branch and 2 tablets in the evening. Take with meals. dapaglifloz 2023-0 Yes [id number] 10mg Take 1 Univers in 2-01 tablet by ity of (FARXIGA) 00:00: mouth [place] 10 mg 00 the Medical tablet morning. Branch metFORMIN 3-0 Yes [id number] 1000mg Take 2 Univers 500 mg 2-01 tablets by ity of tablet 00:00: mouth in [place] 00 the Medical morning Branch and 2 tablets in the evening. Take with meals. traMADoL 50 3-0 2022- No [id number] 50mg TAKE 1 Uni vers mg tablet 2-10 22- TABLET BY ity of 00:00: 00:00 MOUTH [place] 00 :00 EVERY 6 Medical (SIX) Branch HOURS NEEDED FOR PAIN (SCALE 7-10) (CANNOT TAKE NSAIDS). INDICATION S: CHRONIC PAIN traMADoL 50 2022- No [id number] 50mg TAKE 1 Uni vers mg tablet 11-21 TABLET BY ity of 00:00: 00:00 MOUTH [place] 00 :00 EVERY 6 Medical (SIX) Branch HOURS NEEDED FOR PAIN (SCALE 7-10) (CANNOT TAKE NSAIDS). INDICATION S: CHRONIC PAIN traMADoL 50 2022- No [id number] 50mg TAKE 1 Uni vers mg tablet 11-21 TABLET BY ity of 00:00: 00:00 MOUTH [place] 00 :00 EVERY 6 Medical (SIX) Branch HOURS NEEDED FOR PAIN (SCALE 7-10) (CANNOT TAKE NSAIDS). INDICATION S: CHRONIC PAIN rosuvastati 2022- No 20mg Take 20 mg Univers n 20 mg 1-24 24 by mouth ity of tablet 10:12: 00:00 at [place] 05 :00 bedtime. Medical Branch rosuvastati 2022- No 20mg Take 20 mg Univers n 20 mg -24 11-13 by mouth ity of tablet 10:12: 00:00 at [place] 05 :00 bedtime. Medical Branch rosuvastati Yes [id number] 20mg Take 1 Univers n 20 mg 1-24 tablet by ity of tablet 00:00: mouth at [place] [address] bedtime. Medical Branch rosuvastati Yes [id number] 20mg Take 1 Univers n 20 mg 1-24 tablet by ity of tablet 00:00: mouth at [place] [address] bedtime. Medical Branch rosuvastati Yes [id number] 20mg Take 1 Univers n 20 mg 1-24 tablet by ity of tablet 00:00: mouth at [place] [address] bedtime. Medical Branch rosuvastati Yes [id number] 20mg Take 1 Univers n 20 mg 1-24 tablet by ity of tablet 00:00: mouth at [place] [address] bedtime. Medical Branch rosuvastati Yes [id number] 20mg Take 1 Univers n 20 mg 1-24 tablet by ity of tablet 00:00: mouth at [place] [address] bedtime. Medical Branch rosuvastati Yes [id number] 20mg Take 1 Univers n 20 mg 1-24 tablet by ity of tablet 00:00: mouth at [place] [address] bedtime. Medical Branch rosuvastati 2023-0 Yes [id number] 20mg Take 1 Univers n 20 mg 1-24 tablet by ity of tablet 00:00: mouth at [place] 00 bedtime. Medical Branch rosuvastati 0 Yes [id number] 20mg Take 1 Univers n 20 mg 1-24 tablet by ity of tablet 00:00: mouth at [place] 00 bedtime. Medical Branch rosuvastati 2022-0 Yes [id number] 20mg Take 1 Univers n 20 mg 1-24 tablet by ity of tablet 00:00: mouth at [place] 00 bedtime. Medical Branch rosuvastati 0 Yes [id number] 20mg Take 1 Univers n 20 mg 1-24 tablet by ity of tablet 00:00: mouth at [place] [address] bedtime. Medical Branch rosuvastati 0 Yes [id number] 20mg Take 1 Univers n 20 mg 1-24 tablet by ity of tablet 00:00: mouth at [place] 00 bedtime. Medical Branch rosuvastati 0 Yes [id number] 20mg Take 1 Univers n 20 mg 1-24 tablet by ity of tablet 00:00: mouth at [place] [address] bedtime. Medical Branch rosuvastati 0 Yes [id number] 20mg Take 1 Univers n 20 mg 1-24 tablet by ity of tablet 00:00: mouth at [place] [address] bedtime. Medical Branch rosuvastati Yes [id number] 20mg Take 1 Univers n 20 mg 1-24 tablet by ity of tablet 00:00: mouth at [place] [address] bedtime. Medical Branch rifAXIMin 2022- Yes [id number] 550mg Take 1 Univers (XIFAXAN) -01-13 tablet by ity of 550 mg 00:00: 04:59 mouth in [place] tablet 00 :00 the Medical morning Branch and 1 tablet in the evening. Do all this for 60 days. Continue refills with Hepatology rifAXIMin 2022- Yes [id number] 550mg Take 1 Univers (XIFAXAN) 1-24 - tablet by ity of 550 mg 00:00: 04:59 mouth in [place] tablet 00 :00 the Medical morning Branch and 1 tablet in the evening. Do all this for 60 days. Continue refills with Hepatology rifAXIMin 2022- Yes [id number] 550mg Take 1 Univers (XIFAXAN) 11-13 tablet by ity of 550 mg 00:00: 04:59 mouth in [place] tablet 00 :00 the Medical morning Branch and 1 tablet in the evening. Do all this for 60 days. Continue refills with Hepatology rifAXIMin 2022- Yes [id number] 550mg Take 1 Univers (XIFAXAN) 11-13 tablet by ity of 550 mg 00:00: 04:59 mouth in [place] tablet 00 :00 the Medical morning Branch and 1 tablet in the evening. Do all this for 60 days. Continue refills with Hepatology rifAXIMin 2022- Yes [id number] 550mg Take 1 Univers (XIFAXAN) 11-13 tablet by ity of 550 mg 00:00: 04:59 mouth in [place] tablet 00 :00 the Medical morning Branch and 1 tablet in the evening. Do all this for 60 days. Continue refills with Hepatology rifAXIMin 2022- Yes [id number] 550mg Take 1 Univers (XIFAXAN) 11-13 tablet by ity of 550 mg 00:00: 04:59 mouth in [place] tablet 00 :00 the Medical morning Branch and 1 tablet in the evening. Do all this for 60 days. Continue refills with Hepatology rifAXIMin 2022- Yes [id number] 550mg Take 1 Univers (XIFAXAN) 11-13 tablet by ity of 550 mg 00:00: 04:59 mouth in [place] tablet 00 :00 the Medical morning Branch and 1 tablet in the evening. Do all this for 60 days. Continue refills with Hepatology rifAXIMin 2022- Yes [id number] 550mg Take 1 Univers (XIFAXAN) 11-13 tablet by ity of 550 mg 00:00: 04:59 mouth in [place] tablet 00 :00 the Medical morning Branch and 1 tablet in the evening. Do all this for 60 days. Continue refills with Hepatology rifAXIMin 2022- Yes [id number] 550mg Take 1 Univers (XIFAXAN) 11-13 tablet by ity of 550 mg 00:00: 04:59 mouth in [place] tablet 00 :00 the Medical morning Branch and 1 tablet in the evening. Do all this for 60 days. Continue refills with Hepatology rifAXIMin 2022- Yes [id number] 550mg Take 1 Univers (XIFAXAN) 11-13 tablet by ity of 550 mg 00:00: 04:59 mouth in [place] tablet 00 :00 the Medical morning Branch and 1 tablet in the evening. Do all this for 60 days. Continue refills with Hepatology rifAXIMin 2022- Yes [id number] 550mg Take 1 Univers (XIFAXAN) 11-13 tablet by ity of 550 mg 00:00: 04:59 mouth in [place] tablet 00 :00 the Medical morning Branch and 1 tablet in the evening. Do all this for 60 days. Continue refills with Hepatology rifAXIMin 2022- Yes [id number] 550mg Take 1 Univers (XIFAXAN) 11-13 tablet by ity of 550 mg 00:00: 04:59 mouth in [place] tablet 00 :00 the [facility] morning Branch and 1 tablet in the evening. Do all this for 60 days. Continue refills with Hepatology rifAXIMin 2022- Yes [id number] 550mg Take 1 Univers (XIFAXAN) 11-13 tablet by ity of 550 mg 00:00: 04:59 mouth in [place] tablet 00 :00 the Medical morning Branch and 1 tablet in the evening. Do all this for 60 days. Continue refills with Hepatology rifAXIMin 2022- Yes [id number] 550mg Take 1 Univers (XIFAXAN) 11-13 tablet by ity of 550 mg 00:00: 04:59 mouth in [place] tablet 00 :00 the [facility] morning Branch and 1 tablet in the evening. Do all this for 60 days. Continue refills with Hepatology Insulin Yes [id number] 54U inject 54 U nivers Lispro, 1-23 Units ity of Human, 00:00: under the [place] (HUMALOG 00 skin in Medical U-100 the Branch INSULIN) morning. 100 unit/mL cartridge Insulin Yes [id number] 54U inject 54 U nivers Lispro, 1-23 Units ity of Human, 00:00: under the [place] (HUMALOG 00 skin in Medical U-100 the Branch INSULIN) morning. 100 unit/mL cartridge Insulin 2022-0 Yes [id number] 54U inject 54 U nivers Lispro, 1-23 Units ity of Human, 00:00: under the [place] (HUMALOG 00 skin in Medical U-100 the Branch INSULIN) morning. 100 unit/mL cartridge Insulin 2022-0 Yes [id number] 54U inject 54 U nivers Lispro, 1-23 Units ity of Human, 00:00: under the [place] (HUMALOG 00 skin in Medical U-100 the Branch INSULIN) morning. 100 unit/mL cartridge Insulin 2022-0 Yes [id number] 54U inject 54 U nivers Lispro, 1-23 Units ity of Human, 00:00: under the [place] (HUMALOG 00 skin in Medical U-100 the Branch INSULIN) morning. 100 unit/mL cartridge Insulin 2022-0 Yes [id number] 54U inject 54 U nivers Lispro, 1-23 Units ity of Human, 00:00: under the [place] (HUMALOG 00 skin in Medical U-100 the Branch INSULIN) morning. 100 unit/mL cartridge Insulin 2022-0 Yes [id number] 54U inject 54 U nivers Lispro, 1-23 Units ity of Human, 00:00: under the [place] (HUMALOG 00 skin in Medical U-100 the Branch INSULIN) morning. 100 unit/mL cartridge Insulin 2022-0 Yes [id number] 54U inject 54 U nivers Lispro, 1-23 Units ity of Human, 00:00: under the [place] (HUMALOG 00 skin in Medical U-100 the Branch INSULIN) morning. 100 unit/mL cartridge Insulin 2022-0 Yes [id number] 54U inject 54 U nivers Lispro, 1-23 Units ity of Human, 00:00: under the [place] (HUMALOG 00 skin in Medical U-100 the Branch INSULIN) morning. 100 unit/mL cartridge Insulin 3-0 Yes [id number] 54U inject 54 U nivers Lispro, 1-23 Units ity of Human, 00:00: under the [place] (HUMALOG 00 skin in Medical U-100 the Branch INSULIN) morning. 100 unit/mL cartridge Insulin 2022-0 Yes [id number] 54U inject 54 U nivers Lispro, 1-23 Units ity of Human, 00:00: under the [place] (HUMALOG 00 skin in Medical U-100 the Branch INSULIN) morning. 100 unit/mL cartridge Insulin 2022-0 Yes [id number] 54U inject 54 U nivers Lispro, 1-23 Units ity of Human, 00:00: under the [place] (HUMALOG 00 skin in Medical U-100 the Branch INSULIN) morning. 100 unit/mL cartridge Insulin 2022-0 Yes [id number] 54U inject 54 U nivers Lispro, 1-23 Units ity of Human, 00:00: under the [place] (HUMALOG 00 skin in Medical U-100 the Branch INSULIN) morning. 100 unit/mL cartridge Insulin 2022-0 Yes [id number] 54U inject 54 U nivers Lispro, 1-23 Units ity of Human, 00:00: under the [place] (HUMALOG 00 skin in Medical U-100 the Branch INSULIN) morning. 100 unit/mL cartridge Insulin 2022-0 Yes [id number] 54U inject 54 U nivers Lispro, 1-23 Units ity of Human, 00:00: under the [place] (HUMALOG 00 skin in Medical U-100 the Branch INSULIN) morning. 100 unit/mL cartridge MOUNJARO 2022-0 Yes [id number] INJECT 2.5 [facility] 2.5 mg/0.5 1-20 MG ity of mL PnIj 00:[place] US[place] Medical WEEKLY FOR Branch 4 WEEKS AND THEN SWITCH TO 5 MG DOSE MOUNJARO 3-0 Yes [id number] INJECT 2.5 [facility] 2.5 mg/0.5 1-20 MG ity of mL PnIj 00:00: [place] USLY Medical WEEKLY FOR Branch 4 WEEKS AND THEN SWITCH TO 5 MG DOSE MOUNJARO 3-0 Yes [id number] INJECT 2.5 [facility] 2.5 mg/0.5 1-20 MG ity of mL PnIj 00:00: [place] US[place] Medical WEEKLY FOR Branch 4 WEEKS AND THEN SWITCH TO 5 MG DOSE MOUNJARO 2023-0 Yes [id number] INJECT 2.5 [facility] 2.5 mg/0.5 1-20 MG ity of mL PnIj 00:00: [place] USLY Medical WEEKLY FOR Branch 4 WEEKS AND THEN SWITCH TO 5 MG DOSE MOUNJARO 2022-0 Yes [id number] INJECT 2.5 [facility] 2.5 mg/0.5 1-20 MG ity of mL PnIj 00:00: [place] USLY Medical WEEKLY FOR Branch 4 WEEKS AND THEN SWITCH TO 5 MG DOSE MOUNJARO 2022-0 Yes [id number] INJECT 2.5 [facility] 2.5 mg/0.5 1-20 MG ity of mL PnIj 00:00: [place] USLY Medical WEEKLY FOR Branch 4 WEEKS AND THEN SWITCH TO 5 MG DOSE MOUNJARO 2022-0 Yes [id number] INJECT 2.5 [facility] 2.5 mg/0.5 1-20 MG ity of mL PnIj 00:00: [place] USLY Medical WEEKLY FOR Branch 4 WEEKS AND THEN SWITCH TO 5 MG DOSE MOUNJARO 2022-0 Yes [id number] INJECT 2.5 [facility] 2.5 mg/0.5 1-20 MG ity of mL PnIj 00:00: [place] USLY Medical WEEKLY FOR Branch 4 WEEKS AND THEN SWITCH TO 5 MG DOSE MOUNJARO 2022-0 Yes [id number] INJECT 2.5 [facility] 2.5 mg/0.5 1-20 MG ity of mL PnIj 00:00: [place] USLY Medical WEEKLY FOR Branch 4 WEEKS AND THEN SWITCH TO 5 MG DOSE MOUNJARO 2022-0 Yes [id number] INJECT 2.5 [facility] 2.5 mg/0.5 1-20 MG ity of mL PnIj 00:00: [place] USLY Medical WEEKLY FOR Branch 4 WEEKS AND THEN SWITCH TO 5 MG DOSE MOUNJARO 2022-0 Yes [id number] INJECT 2.5 Univers 2.5 mg/0.5 1-20 MG ity of mL PnIj 00:00: [place] USLY Medical WEEKLY FOR Branch 4 WEEKS AND THEN SWITCH TO 5 MG DOSE MOUNJARO 2022-0 2023- No [id number] INJECT 2.5 Univers 2.5 mg/0.5 1-20 02-07 MG ity of mL PnIj 00:00: 00:00 SUBCUTANEO [place] 00 :00 USLY Medical WEEKLY FOR Branch 4 WEEKS AND THEN SWITCH TO 5 MG DOSE MOUNJARO 202-0 2023- No [id number] INJECT 2.5 Univers 2.5 mg/0.5 1-20 02-07 MG ity of mL PnIj 00:00: 00:00 SUBCUTANEO [place] 00 :00 USLY Medical WEEKLY FOR Branch 4 WEEKS AND THEN SWITCH TO 5 MG DOSE MOUNJARO 2023-0 2023- No [id number] INJECT 2.5 Univers 2.5 mg/0.5 1-20 02-07 MG ity of mL PnIj 00:00: 00:00 SUBCUTANEO [place] 00 :00 USLY Medical WEEKLY FOR Branch 4 WEEKS AND THEN SWITCH TO 5 MG DOSE MOUNJARO 3-0 2023- No [id number] INJECT 2.5 Univers 2.5 mg/0.5 1-20 02-07 MG ity of mL PnIj 00:00: 00:00 SUBCUTANE[place] 00 :00 USLY Medical WEEKLY FOR Branch 4 WEEKS AND THEN SWITCH TO 5 MG DOSE MOUNJARO 2022-0 2023- No [id number] INJECT 2.5 Univers 2.5 mg/0.5 1-20 02-07 MG ity of mL PnIj 00:00: 00:00 SUBCUTANEO [place] 00 :00 USLY Medical WEEKLY FOR Branch 4 WEEKS AND THEN SWITCH TO 5 MG DOSE insulin Yes 1{each} inject 1 Uni vers pump 1-16 Each under ity of cart,cont 00:00: [place] inf,BT 00 every 72 Medical (OMNIPOD (seventy-t Branc h DASH PODS, wo) hours. GEN 4,) Crtg insulin Yes 1{each} inject 1 Uni vers pump 1-16 Each under ity of cart,cont 00:00: [place] inf,BT 00 every 72 Medical (OMNIPOD (seventy-t Branc h DASH PODS, wo) hours. GEN 4,) Crtg insulin Yes 1{each} inject 1 Uni vers pump 1-16 Each under ity of cart,cont 00:00: the [place] inf,BT 00 every 72 Medical (OMNIPOD (seventy-t Branc h DASH PODS, wo) hours. GEN 4,) Crtg insulin 2022-0 Yes 1{each} inject 1 Uni vers pump 1-16 Each under ity of cart,cont 00:00: the [place] inf,BT 00 every 72 Medical (OMNIPOD (seventy-t Branc h DASH PODS, wo) hours. GEN 4,) Crtg insulin 2022-0 Yes 1{each} inject 1 Uni vers pump 1-16 Each under ity of cart,cont 00:00: the [place] inf,BT 00 every 72 Medical (OMNIPOD (seventy-t Branc h DASH PODS, wo) hours. GEN 4,) Crtg insulin 2022-0 Yes 1{each} inject 1 Uni vers pump 1-16 Each under ity of cart,cont 00:00: the [place] inf,BT 00 every 72 Medical (OMNIPOD (seventy-t Branc h DASH PODS, wo) hours. GEN 4,) Crtg insulin 2022-0 Yes 1{each} inject 1 Uni vers pump 1-16 Each under ity of cart,cont 00:00: the [place] inf,BT 00 every 72 Medical (OMNIPOD (seventy-t Branc h DASH PODS, wo) hours. GEN 4,) Crtg insulin 2022-0 Yes 1{each} inject 1 Uni vers pump 1-16 Each under ity of cart,cont 00:00: the [place] inf,BT 00 every 72 Medical (OMNIPOD (seventy-t Branc h DASH PODS, wo) hours. GEN 4,) Crtg insulin 2022-0 Yes 1{each} inject 1 Uni vers pump 1-16 Each under ity of cart,cont 00:00: the skin [place] inf,BT 00 every 72 Medical (OMNIPOD (seventy-t Branc h DASH PODS, wo) hours. GEN 4,) Crtg insulin 2022-0 Yes 1{each} inject 1 Uni vers pump 1-16 Each under ity of cart,cont 00:00: the skin [place] inf,BT 00 every 72 Medical (OMNIPOD (seventy-t Branc h DASH PODS, wo) hours. GEN 4,) Crtg insulin 2022-0 Yes 1{each} inject 1 Uni vers pump 1-16 Each under ity of cart,cont 00:00: the skin [place] inf,BT 00 every 72 Medical (OMNIPOD (seventy-t Branc h DASH PODS, wo) hours. GEN 4,) Crtg insulin 2022-0 Yes 1{each} inject 1 Uni vers pump 1-16 Each under ity of cart,cont 00:00: the skin [place] inf,BT 00 every 72 Medical (OMNIPOD (seventy-t Branc h DASH PODS, wo) hours. GEN 4,) Crtg insulin 2022-0 Yes 1{each} inject 1 Uni vers pump 1-16 Each under ity of cart,cont 00:00: the [place] inf,BT 00 every 72 Medical (OMNIPOD (seventy-t Branc h DASH PODS, wo) hours. GEN 4,) Crtg insulin 2022-0 Yes 1{each} inject 1 Uni vers pump 1-16 Each under ity of cart,cont 00:00: the skin [place] inf,BT 00 every 72 Medical (OMNIPOD (seventy-t Branc h DASH PODS, wo) hours. GEN 4,) Crtg insulin 0 Yes 1{each} inject 1 Uni vers pump 1-16 Each under ity of cart,cont 00:00: the skin [place] inf,BT 00 every 72 Medical (OMNIPOD (seventy-t Branc h DASH PODS, wo) hours. GEN 4,) Crtg insulin 2022-0 Yes 1{each} inject 1 Uni vers pump 1-16 Each under ity of cart,cont 00:00: the skin [place] inf,BT 00 every 72 Medical (OMNIPOD (seventy-t Branc h DASH PODS, wo) hours. GEN 4,) Crtg insulin 2022-0 Yes 1{each} inject 1 Uni vers pump 1-16 Each under ity of cart,cont 00:00: the skin [place] inf,BT 00 every 72 Medical (OMNIPOD (seventy-t Branc h DASH PODS, wo) hours. GEN 4,) Crtg insulin 2022-0 Yes 1{each} inject 1 Uni vers pump 1-16 Each under ity of cart,cont 00:00: the [place] inf,BT 00 every 72 Medical (OMNIPOD (seventy-t Branc h DASH PODS, wo) hours. GEN 4,) Crtg insulin 2023-0 Yes 1{each} inject 1 Uni vers pump 1-16 Each under ity of cart,cont 00:00: the [place] inf,BT 00 every 72 Medical (OMNIPOD (seventy-t Branc h DASH PODS, wo) hours. GEN 4,) Crtg insulin 2023-0 Yes 1{each} inject 1 Uni vers pump 1-16 Each under ity of cart,cont 00:00: [place] inf,BT 00 every 72 Medical (OMNIPOD (seventy-t Branc h DASH PODS, wo) hours. GEN 4,) Crtg empaglifloz 3-0 2023- No 25mg QD Take [address] [facility] 10-29- by [facility] (Jardiance) 11:37: 00:00 daily. Med ical 25 mg 41 :00 Center tablet omeprazole 3-0 Yes 20mg Q.5D Take [address] [facility] (PriLOSEC) 1-05 by mouth 2 [facility] 20 MG 13:00: (two) Medical capsule 29 times Center daily. meclizine 2022-0 Yes 25mg Take [address] [facility] (ANTIVERT) 1-05 by mouth 3 [place] 25 MG 13:00: (three) Medical tablet 29 times Center daily as needed for Dizziness. gabapentin 3-0 Yes 100mg Q.[id number] Take [address] [facility] (NEURONTIN) 1-05 [id number] mg by [facility] 100 MG 13:00: 3D mouth 3 Medical capsule 29 (three) Center times daily. lipase/prot 2022-0 Yes Take by [facility] ease/amylas 1-05 [facility] (CREON 13:00: 6,000 TID Medi vidal ORAL) 29 . Center metoclopram 3-0 Yes 10mg Take [address] [facility] miracle HCl 1-05 by mouth 4 [facility] (REGLAN) 10 13:00: (four) Medi vidal MG tablet 29 times Center daily as needed for Nausea. promethazin 3-0 Yes 25mg Take [address] [facility] e 1-05 by mouth [facility] (PHENERGAN) 13:00: every Medic al 25 MG 29 night as Center tablet needed for Nausea. b complex 3-0 Yes 1{tbl} QD Take [address] [facility] vitamins 1-05 tablet by [facility] tablet 13:00: mouth Medical 29 daily. Center docusate 0 Yes 100mg Take [address] [facility] sodium 1-05 mg by [facility] (COLACE) 13:00: mouth 2 Medica l 100 MG 29 (two) Center capsule times daily as needed for Constipati on. traMADoL 0 Yes 50mg Take [address] [facility] (ULTRAM) 50 1-05 by mouth [facility] mg tablet 13:00: every 6 Medic al 29 (six) Center hours as needed for Pain. metFORMIN 0 Yes 500mg Take [address] [facility] (GLUCOPHAGE 1-05 mg by [facility] ) 500 MG 13:00: mouth 2 Medica l tablet 29 (two) Center times daily with breakfast and dinner. insulin Yes Inject [facility] lispro 1-05 [facility] (HumaLOG) 13:00: usly in Medic al 100 unit/mL 29 the Center injection morning. ranitidine 0 Yes 20mg Take [address] HCl (ZANTAC 1-05 by mouth. [facility] ORAL) 13:00: Medical 29 Center hydrOXYzine 0 Yes 25mg TAKE [address] [facility] (ATARAX) 25 1-03 TABLET (25 [facility] kes MG tablet 00:00: MG TOTAL) Med ical 00 BY MOUTH Center NEEDED. Blood-Gluco 2021-10 Yes [id number] Use as Univers se 2-30 directed ity of Transmitter 00:00: [place] (DEXCOM G6 00 Medical TRANSMITTER Branch ) [place] Blood-Gluco 2021-10 Yes [id number] Use as Univers se Sensor 2-30 directed ity of (DEXCOM G6 00:00: [place] SENSOR) 00 [facility] Branch Blood-Gluco 2021-10 Yes [id number] Use as Univers se 2-30 directed ity of Transmitter 00:00: [place] (DEXCOM G6 00 Medical TRANSMITTER Branch ) [place] Blood-Gluco 2021-10 Yes [id number] Use as Univers se Sensor 2-30 directed ity of (DEXCOM G6 00:00: [place] SENSOR) 00 [facility] Branch Blood-Gluco 2021-10 Yes [id number] Use as Univers se 2-30 directed ity of Transmitter 00:00: [place] (DEXCOM G6 00 Medical TRANSMITTER Branch ) [place] Blood-Gluco 2021- Yes [id number] Use as Univers se Sensor 2-30 directed ity of (DEXCOM G6 00:00: [place] SENSOR) 00 Medical [place] [facility] Blood-Gluco 2021- Yes [id number] Use as Univers se 2-30 directed ity of Transmitter 00:00: [place] (DEXCOM G6 00 Medical TRANSMITTER Branch ) [place] Blood-Gluco 2021- Yes [id number] Use as Univers se Sensor 2-30 directed ity of (DEXCOM G6 00:00: [place] SENSOR) 00 Medical [place] [facility] Blood-Gluco 2021- Yes [id number] Use as Univers se 2-30 directed ity of Transmitter 00:00: [place] (DEXCOM G6 00 Medical TRANSMITTER Branch ) [place] Blood-Gluco 2021- Yes [id number] Use as Univers se Sensor 2-30 directed ity of (DEXCOM G6 00:00: [place] SENSOR) 00 Medical [place] [facility] Blood-Gluco 2021-10 Yes [id number] Use as Univers se 2-30 directed ity of Transmitter 00:00: [place] (DEXCOM G6 00 Medical TRANSMITTER Branch ) [place] Blood-Gluco 2021- Yes [id number] Use as Univers se Sensor 2-30 directed ity of (DEXCOM G6 00:00: [place] SENSOR) 00 Medical [place] [facility] Blood-Gluco 2021-10 Yes [id number] Use as Univers se 2-30 directed ity of Transmitter 00:00: [place] (DEXCOM G6 00 Medical TRANSMITTER Branch ) [place] Blood-Gluco 2021- Yes [id number] Use as Univers se Sensor 2-30 directed ity of (DEXCOM G6 00:00: [place] SENSOR) 00 Medical [place] [facility] Blood-Gluco 2021- Yes [id number] Use as Univers se 2-30 directed ity of Transmitter 00:00: [place] (DEXCOM G6 00 Medical TRANSMITTER Branch ) [place] Blood-Gluco 2021- Yes [id number] Use as Univers se Sensor 2-30 directed ity of (DEXCOM G6 00:00: [place] SENSOR) 00 Medical [place] [facility] Blood-Gluco 2021- Yes [id number] Use as Univers se 2-30 directed ity of Transmitter 00:00: [place] (DEXCOM G6 00 Medical TRANSMITTER Branch ) [place] Blood-Gluco 2021- Yes [id number] Use as Univers se Sensor 2-30 directed ity of (DEXCOM G6 00:00: [place] SENSOR) 00 Medical [place] [facility] Blood-Gluco 2021- Yes [id number] Use as Univers se 2-30 directed ity of Transmitter 00:00: [place] (DEXCOM G6 00 Medical TRANSMITTER Branch ) [place] Blood-Gluco 2021- Yes [id number] Use as Univers se Sensor 2-30 directed ity of (DEXCOM G6 00:00: [place] SENSOR) 00 Medical [place] [facility] Blood-Gluco 2021- Yes [id number] Use as Univers se 2-30 directed ity of Transmitter 00:00: [place] (DEXCOM G6 00 Medical TRANSMITTER Branch ) [place] Blood-Gluco 2021- Yes [id number] Use as Univers se Sensor 2-30 directed ity of (DEXCOM G6 00:00: [place] SENSOR) 00 Medical [place] [facility] Blood-Gluco 2021-10 Yes [id number] Use as Univers se 2-30 directed ity of Transmitter 00:00: [place] (DEXCOM G6 00 Medical TRANSMITTER Branch ) [place] Blood-Gluco 2021- Yes [id number] Use as Univers se Sensor 2-30 directed ity of (DEXCOM G6 00:00: [place] SENSOR) 00 Medical [place] [facility] Blood-Gluco 2021- Yes [id number] Use as Univers se 2-30 directed ity of Transmitter 00:00: [place] (DEXCOM G6 00 Medical TRANSMITTER Branch ) [place] Blood-Gluco 2021- Yes [id number] Use as Univers se Sensor 2-30 directed ity of (DEXCOM G6 00:00: [place] SENSOR) 00 Medical [place] [facility] Blood-Gluco 2021- Yes [id number] Use as Univers se 2-30 directed ity of Transmitter 00:00: [place] (DEXCOM G6 00 Medical TRANSMITTER Branch ) [place] Blood-Gluco 2021- Yes [id number] Use as Univers se Sensor 2-30 directed ity of (DEXCOM G6 00:00: [place] SENSOR) 00 Medical [place] [facility] Blood-Gluco 2021- Yes [id number] Use as Univers se 2-30 directed ity of Transmitter 00:00: [place] (DEXCOM G6 00 Medical TRANSMITTER Branch ) [place] Blood-Gluco 2021- Yes [id number] Use as Univers se Sensor 2-30 directed ity of (DEXCOM G6 00:00: [place] SENSOR) 00 Medical [place] [facility] Blood-Gluco 2021- Yes [id number] Use as Univers se 2-30 directed ity of Transmitter 00:00: [place] (DEXCOM G6 00 Medical TRANSMITTER Branch ) [place] Blood-Gluco 2021- Yes [id number] Use as Univers se Sensor 2-30 directed ity of (DEXCOM G6 00:00: [place] SENSOR) 00 Medical [place] [facility] Blood-Gluco 2021- Yes [id number] Use as Univers se 2-30 directed ity of Transmitter 00:00: [place] (DEXCOM G6 00 Medical TRANSMITTER Branch ) [place] Blood-Gluco 2021- Yes [id number] Use as Univers se Sensor 2-30 directed ity of (DEXCOM G6 00:00: [place] SENSOR) 00 Medical [place] [facility] Blood-Gluco 2021-10 Yes [id number] Use as Univers se 2-30 directed ity of Transmitter 00:00: [place] (DEXCOM G6 00 Medical TRANSMITTER Branch ) [place] Blood-Gluco 2021-10 Yes [id number] Use as Univers se Sensor 2-30 directed ity of (DEXCOM G6 00:00: [place] SENSOR) 00 Medical [place] [facility] Blood-Gluco 2021-10 Yes [id number] Use as Univers se 2-30 directed ity of Transmitter 00:00: [place] (DEXCOM G6 00 Medical TRANSMITTER Branch ) [place] Blood-Gluco 2021-10 Yes [id number] Use as Univers se Sensor 2-30 directed ity of (DEXCOM G6 00:00: [place] SENSOR) 00 Medical [place] [facility] Blood-Gluco 2021-10 Yes [id number] Use as Univers se 2-30 directed ity of Transmitter 00:00: [place] (DEXCOM G6 00 Medical TRANSMITTER Branch ) [place] Blood-Gluco 2021-10 Yes [id number] Use as Univers se Sensor 2-30 directed ity of (DEXCOM G6 00:00: [place] SENSOR) 00 Medical [place] [facility] Blood-Gluco 2021- Yes [id number] Use as Univers se 2-30 directed ity of Transmitter 00:00: [place] (DEXCOM G6 00 Medical TRANSMITTER Branch ) [place] Blood-Gluco 2021- Yes [id number] Use as Univers se Sensor 2-30 directed ity of (DEXCOM G6 00:00: [place] SENSOR) 00 Medical [place] [facility] Blood-Gluco 2021-10 Yes [id number] Use as Univers se 2-30 directed ity of Transmitter 00:00: [place] (DEXCOM G6 00 Medical TRANSMITTER Branch ) [place] Blood-Gluco 2021-10 Yes [id number] Use as Univers se Sensor 2-30 directed ity of (DEXCOM G6 00:00: [place] SENSOR) 00 Medical [place] [facility] Blood-Gluco 2021-10 Yes [id number] Use as Univers se 2-30 directed ity of Transmitter 00:00: [place] (DEXCOM G6 00 Medical TRANSMITTER Branch ) [place] Blood-Gluco 2021-10 Yes [id number] Use as Univers se Sensor 2-30 directed ity of (DEXCOM G6 00:00: [place] SENSOR) 00 Medical [place] [facility] tirzepatide 2021-10 Yes [id number] 2.5mg inject 2.5 Univers (MOUNJARO) 2-28 mg under ity o f 2.5 mg/0.5 00:00: the skin [place] mL PnIj 00 weekly. Medical Start Branch 2.5mg SC qWeek x 4 Weeks, then increase to 5 mg SC qWeek tirzepatide 2021-10 Yes [id number] 5mg inject 5 Univers (MOUNJARO) 2-28 mg under ity o f 5 mg/0.5 mL 00:00: [place] PnIj 00 weekly. Medical Start Branch 2.5mg SC qWeek x 4 Weeks, then increase to 5 mg SC qWeek DULoxetine 2021-10 Yes [id number] 20mg Take 1 U nivers 20 mg 2-28 capsule by ity of capsule 00:00: mouth in [place] 00 the Medical morning. Branch tirzepatide 2021-10 Yes [id number] 2.5mg inject 2.5 Univers (MOUNJARO) 2-28 mg under ity o f 2.5 mg/0.5 00:00: the skin [place] mL PnIj 00 weekly. Medical Start Branch 2.5mg SC qWeek x 4 Weeks, then increase to 5 mg SC qWeek tirzepatide 2021-10 Yes [id number] 5mg inject 5 Univers (MOUNJARO) 2-28 mg under ity o f 5 mg/0.5 mL 00:00: the skin [place] PnIj 00 weekly. Medical Start Branch 2.5mg SC qWeek x 4 Weeks, then increase to 5 mg SC qWeek DULoxetine 2021-10 Yes [id number] 20mg Take 1 U nivers 20 mg 2-28 capsule by ity of capsule 00:00: mouth in [place] 00 the Medical morning. Branch tirzepatide 2021-10 Yes [id number] 2.5mg inject 2.5 Univers (MOUNJARO) 2-28 mg under ity o f 2.5 mg/0.5 00:00: the skin [place] mL PnIj 00 weekly. Medical Start Branch 2.5mg SC qWeek x 4 Weeks, then increase to 5 mg SC qWeek tirzepatide 2021-10 Yes [id number] 5mg inject 5 Univers (MOUNJARO) 2-28 mg under ity o f 5 mg/0.5 mL 00:00: the skin [place] PnIj 00 weekly. Medical Start Branch 2.5mg SC qWeek x 4 Weeks, then increase to 5 mg SC qWeek DULoxetine 2021-10 Yes [id number] 20mg Take 1 U nivers 20 mg 2-28 capsule by ity of capsule 00:00: mouth in [place] 00 the Medical morning. Branch tirzepatide 2021-10 Yes [id number] 2.5mg inject 2.5 Univers (MOUNJARO) 2-28 mg under ity o f 2.5 mg/0.5 00:00: the skin [place] mL PnIj 00 weekly. Medical Start Branch 2.5mg SC qWeek x 4 Weeks, then increase to 5 mg SC qWeek tirzepatide 2021-10 Yes [id number] 5mg inject 5 Univers (MOUNJARO) 2-28 mg under ity o f 5 mg/0.5 mL 00:00: the [place] PnIj 00 weekly. Medical Start Branch 2.5mg SC qWeek x 4 Weeks, then increase to 5 mg SC qWeek DULoxetine 2021-10 Yes [id number] 20mg Take 1 U nivers 20 mg 2-28 capsule by ity of capsule 00:00: mouth in [place] 00 the Medical morning. Branch tirzepatide 2021-10 Yes [id number] 2.5mg inject 2.5 Univers (MOUNJARO) 2-28 mg under ity o f 2.5 mg/0.5 00:00: the skin [place] mL PnIj 00 weekly. Medical Start Branch 2.5mg SC qWeek x 4 Weeks, then increase to 5 mg SC qWeek tirzepatide 2021-10 Yes [id number] 5mg inject 5 Univers (MOUNJARO) 2-28 mg under ity o f 5 mg/0.5 mL 00:00: the [place] PnIj 00 weekly. Medical Start Branch 2.5mg SC qWeek x 4 Weeks, then increase to 5 mg SC qWeek DULoxetine 2021-10 Yes [id number] 20mg Take 1 U nivers 20 mg 2-28 capsule by ity of capsule 00:00: mouth in [place] 00 the Medical morning. Branch tirzepatide 2021-10 Yes [id number] 2.5mg inject 2.5 Univers (MOUNJARO) 2-28 mg under ity o f 2.5 mg/0.5 00:00: the skin [place] mL PnIj 00 weekly. Medical Start Branch 2.5mg SC qWeek x 4 Weeks, then increase to 5 mg SC qWeek tirzepatide 2021-10 Yes [id number] 5mg inject 5 Univers (MOUNJARO) 2-28 mg under ity o f 5 mg/0.5 mL 00:00: the skin [place] PnIj 00 weekly. Medical Start Branch 2.5mg SC qWeek x 4 Weeks, then increase to 5 mg SC qWeek DULoxetine 2021-10 Yes [id number] 20mg Take 1 U nivers 20 mg 2-28 capsule by ity of capsule 00:00: mouth in [place] 00 the Medical morning. Branch tirzepatide 2021-10 Yes [id number] 2.5mg inject 2.5 Univers (MOUNJARO) 2-28 mg under ity o f 2.5 mg/0.5 00:00: the skin [place] mL PnIj 00 weekly. Medical Start Branch 2.5mg SC qWeek x 4 Weeks, then increase to 5 mg SC qWeek tirzepatide 2021-10 Yes [id number] 5mg inject 5 Univers (MOUNJARO) 2-28 mg under ity o f 5 mg/0.5 mL 00:00: the skin [place] PnIj 00 weekly. Medical Start Branch 2.5mg SC qWeek x 4 Weeks, then increase to 5 mg SC qWeek DULoxetine 2021-10 Yes [id number] 20mg Take 1 U nivers 20 mg 2-28 capsule by ity of capsule 00:00: mouth in [place] 00 the Medical morning. Branch tirzepatide 2021-10 Yes [id number] 5mg inject 5 Univers (MOUNJARO) 2-28 mg under ity o f 5 mg/0.5 mL 00:00: the skin [place] PnIj 00 weekly. Medical Start Branch 2.5mg SC qWeek x 4 Weeks, then increase to 5 mg SC qWeek DULoxetine 2021-10 Yes [id number] 20mg Take 1 U nivers 20 mg 2-28 capsule by ity of capsule 00:00: mouth in [place] 00 the Medical morning. Branch tirzepatide 2021-10 Yes [id number] 5mg inject 5 Univers (MOUNJARO) 2-28 mg under ity o f 5 mg/0.5 mL 00:00: the skin [place] PnIj 00 weekly. Medical Start Branch 2.5mg SC qWeek x 4 Weeks, then increase to 5 mg SC qWeek DULoxetine 2021-10 Yes [id number] 20mg Take 1 U nivers 20 mg 2-28 capsule by ity of capsule 00:00: mouth in [place] 00 the Medical morning. Branch tirzepatide 2021-10 Yes [id number] 5mg inject 5 Univers (MOUNJARO) 2-28 mg under ity o f 5 mg/0.5 mL 00:00: the skin [place] PnIj 00 weekly. Medical Start Branch 2.5mg SC qWeek x 4 Weeks, then increase to 5 mg SC qWeek DULoxetine 2021-10 Yes [id number] 20mg Take 1 U nivers 20 mg 2-28 capsule by ity of capsule 00:00: mouth in [place] 00 the Medical morning. Branch tirzepatide 2021-10 Yes [id number] 5mg inject 5 Univers (MOUNJARO) 2-28 mg under ity o f 5 mg/0.5 mL 00:00: the skin [place] Pn[place]j 00 weekly. Medical Start Branch 2.5mg SC qWeek x 4 Weeks, then increase to 5 mg SC qWeek DULoxetine 2021-10 Yes [id number] 20mg Take 1 U nivers 20 mg 2-28 capsule by ity of capsule 00:00: mouth in [place] 00 the Medical morning. Branch tirzepatide 2021-10 Yes [id number] 5mg inject 5 [facility] (MOUNJARO) 2-28 mg under ity o f 5 mg/0.5 mL 00:00: the skin [place] Pn[place] 00 weekly. Medical Start Branch 2.5mg SC qWeek x 4 Weeks, then increase to 5 mg SC qWeek DULoxetine 2021-10 Yes [id number] 20mg Take 1 U nivers 20 mg 2-28 capsule by ity of capsule 00:00: mouth in [place] 00 the Medical morning. Branch tirzepatide 2021-10 Yes [id number] 5mg inject 5 [facility] (MOUNJARO) 2-28 mg under ity o f 5 mg/0.5 mL 00:00: the [place] [facility] 00 weekly. Medical Start Branch 2.5mg SC qWeek x 4 Weeks, then increase to 5 mg SC qWeek DULoxetine 2021-10 Yes [id number] 20mg Take 1 U nivers 20 mg 2-28 capsule by [facility]y of capsule 00:00: mouth in [place] 00 the Medical morning. Branch tirzepatide 2021-10 Yes [id number] 5mg inject 5 [facility] ([facility]) 2-28 mg under ity o f 5 mg/0.5 mL 00:00: the skin [place] [facility] 00 weekly. Medical Start Branch 2.5mg SC qWeek x 4 Weeks, then increase to 5 mg SC qWeek DULoxetine 2021-10 Yes [id number] 20mg Take 1 [facility] 20 mg 2-28 capsule by ity of capsule 00:00: mouth in [place] 00 the Medical morning. Branch tirzepatide 2021-10 Yes [id number] 5mg inject 5 [facility] ([facility]OUNJARO) 2-28 mg under ity o f 5 mg/0.5 mL 00:00: the [place] [facility] 00 weekly. [facility] Start Branch 2.5mg SC qWeek x 4 Weeks, then increase to 5 mg SC qWeek DULoxetine 2021-10 Yes [id number] 20mg Take 1 [facility] n[facility] 20 mg 2-28 capsule by ity of capsule 00:00: mouth in [place] 00 the Medical morning. Branch tirzepatide 2021-10 Yes [id number] 5mg inject 5 [facility] (MOUNJARO) 2-28 mg under ity o f 5 mg/0.5 mL 00:00: the skin [place] [facility] 00 weekly. Medical Start Branch 2.5mg SC qWeek x 4 Weeks, then increase to 5 mg SC qWeek DULoxetine 2021-10 Yes [id number] 20mg Take 1 [facility] nivers 20 mg 2-28 capsule by ity of capsule 00:00: mouth in [place] 00 the Medical morning. Branch tirzepatide 2021-10 Yes [id number] 5mg inject 5 [facility] ([facility]) 2-28 mg under ity o f 5 mg/0.5 mL 00:00: the skin [place] [facility] 00 weekly. Medical Start Branch 2.5mg SC qWeek x 4 Weeks, then increase to 5 mg SC qWeek DULoxetine 2021-10 Yes [id number] 20mg Take 1 [facility] n[facility] 20 mg 2-28 capsule by ity of capsule 00:00: mouth in [place] 00 the Medical morning. Branch tirzepatide 2021-10 Yes [id number] 5mg inject 5 [facility] ([facility]) 2-28 mg under ity o f 5 mg/0.5 mL 00:00: the skin [place] [facility] 00 weekly. Medical Start Branch 2.5mg SC qWeek x 4 Weeks, then increase to 5 mg SC qWeek DULoxetine 2021-10 Yes [id number] 20mg Take 1 [facility] 20 mg 2-28 capsule by ity of capsule 00:00: mouth in [place] 00 the Medical morning. Branch tirzepatide 2021-10 Yes [id number] 5mg inject 5 [facility] ([facility]) 2-28 mg under ity o f 5 mg/0.5 mL 00:00: the [place] [facility] 00 weekly. Medical Start Branch 2.5mg SC qWeek x 4 Weeks, then increase to 5 mg SC qWeek DULoxetine 2021-10 Yes [id number] 20mg Take 1 [facility] nivers 20 mg 2-28 capsule by [facility]y of capsule 00:00: mouth in [place] 00 the Medical morning. Branch tirzepatide 2021-10- No [id number] 5mg inject 5 [facility] ([facility]OUNJAR[facility]) 2-28 02-07 mg under ity of 5 mg/0.5 mL 00:00: 00:00 the skin [place] [facility] 00 :00 weekly. Medical Start Branch 2.5mg SC qWeek x 4 Weeks, then increase to 5 mg SC qWeek DULoxetine 2021-10- No [id number] 20mg Take 1 [facility] 20 mg 12-18- capsule by ity of capsule 00:00: 00:00 mouth in [place] 00 :00 the Medical morning. Branch tirzepatide 2021-10- No [id number] 5mg inject 5 [facility] ([facility]OUNJAR[facility]) 12-18-07 mg under ity of 5 mg/0.5 mL 00:00: 00:00 the skin [place] [facility] 00 :00 weekly. Medical Start Branch 2.5mg SC qWeek x 4 Weeks, then increase to 5 mg SC qWeek DULoxetine 2021-10- No [id number] 20mg Take 1 [facility] 20 mg 12-18- capsule by ity of capsule 00:00: 00:00 mouth in [place] 00 :00 the Medical morning. Branch tirzepatide 2021-10- No [id number] 5mg inject 5 [facility] ([facility]OUNJARO) 12-18-07 mg under ity of 5 mg/0.5 mL 00:00: 00:00 the skin [place] [facility] 00 :00 weekly. Medical Start Branch 2.5mg SC qWeek x 4 Weeks, then increase to 5 mg SC qWeek DULoxetine 2021-10- No [id number] 20mg Take 1 [facility] 20 mg 12-18- capsule by ity of capsule 00:00: 00:00 mouth in [place] 00 :00 the Medical morning. Branch tirzepatide 2021-10- No [id number] 5mg inject 5 [facility] ([facility]OUNJAR[facility]) 12-18-07 mg under ity of 5 mg/0.5 mL 00:00: 00:00 the skin [place] [facility] 00 :00 weekly. Medical Start Branch 2.5mg SC qWeek x 4 Weeks, then increase to 5 mg SC qWeek DULoxetine 2021-10- No [id number] 20mg Take 1 [facility] 20 mg 12-18- capsule by ity of capsule 00:00: 00:00 mouth in [place] 00 :00 the Medical morning. Branch tirzepatide 2021-10- No [id number] 5mg inject 5 [facility] (MOUNJARO) 12-18-07 mg under ity of 5 mg/0.5 mL 00:00: 00:00 the [place] [facility] 00 :00 weekly. Medical Start Branch 2.5mg SC qWeek x 4 Weeks, then increase to 5 mg SC qWeek DULoxetine 2021-10- No [id number] 20mg Take 1 [facility] 20 mg 12-18 capsule by ity of capsule 00:00: 00:00 mouth in [place] 00 :00 the Medical morning. Branch tirzepatide 2021-10- No [id number] 2.5mg inject 2.5 [facility] ([facility]OUNJARO) 12-18 01-20 mg under ity of 2.5 mg/0.5 00:00: 00:00 the skin [place] mL PnIj 00 :00 weekly. Medical Start Branch 2.5mg SC qWeek x 4 Weeks, then increase to 5 mg SC qWeek tirzepatide 2021-10- No [id number] 2.5mg inject 2.5 [facility] ([facility]OUNJAR[facility]) 12-18 01-20 mg under ity of 2.5 mg/0.5 00:00: 00:00 the skin [place] mL PnIj 00 :00 weekly. Medical Start Branch 2.5mg SC qWeek x 4 Weeks, then increase to 5 mg SC qWeek rosuvastati 2021-10- No 20mg QD Take [address] [facility] (CRESTOR) 12-17 by mouth [place] es 20 MG 13:57: 00:00 daily. Medical tablet 08 :00 [place] doxepin 2021-10- No 10mg QD Take [address] [facility] (SINEquan) 12-17 by mouth Luke s 10 MG 13:57: 00:00 nightly. Medical capsule 08 :00 Center rosuvastati 2021-10- Yes 20mg QD Take [address] [facility] (CRESTOR) 12-17- tablet (20 L u[facility] 20 MG 00:00: 23:59 mg total) Medica l tablet 00 :00 by mouth Center daily for 90 days. doxepin 2021-10- Yes 10mg QD Take [address] [facility] (SINEquan) 12-17- capsule [facility] 10 MG 00:00: 23:59 (10 mg Medical capsule 00 :00 total) by Center mouth nightly for 90 days. rifAXIMin 2021-10- Yes 550mg Q.5D Take [address] [facility] 550 mg Tab 12-17 tablet [facility] 00:00: 23:59 (550 mg Medical 00 :00 total) by Center mouth 2 (two) times daily for 90 days. DULoxetine 2021-10- Yes 20mg QD Take [address] [facility] (CYMBALTA) 12-17 capsule [facility] 20 MG 00:00: 23:59 (20 mg Medical capsule 00 :00 total) by Center mouth daily for 90 days. XIFAXAN 550 2021-10- No 550mg Take 550 [facility] mg tablet 12-17 mg by ity of 00:00: 00:00 mouth in [place] 00 :00 the Medical morning Branch and 550 mg in the evening. rosuvastati 2021-10- No 20mg Take 20 mg [facility] n 20 mg 12-17 by mouth ity of tablet 00:00: 00:00 in the [place] 00 :00 morning. Medical Branch HYDROcodone 2021-10- No 1{tbl} Take [address] -acetaminop 12-13 tablet by Dayana woodson (NORCO 00:00: 23:59 mouth Medic al 5-325) 00 :00 every 6 Center 5-325 mg (six) per tablet hours as needed for up to 10 days. Max Daily Amount: 4 tablets folic acid 2021-10 Yes 1000ug QD Take 1,[address] [facility] (FOLVITE) 1 2-21 mcg by [facility] MG tablet 00:00: mouth Medical 00 daily. Center busPIRone 2021-10 Yes [id number] 10mg Take 1 [facility] nivers 10 mg 1-30 tablet by ity of tablet 00:00: mouth 2 [place] 00 (two) Medical times Branch daily as needed (anxiety and depression ). busPIRone 2021-10 Yes [id number] 10mg Take 1 [facility] nivers 10 mg 1-30 tablet by ity of tablet 00:00: mouth 2 [place] 00 (two) Medical times Branch daily as needed (anxiety and depression ). busPIRone 2021-10 Yes [id number] 10mg Take 1 [facility] nivers 10 mg 1-30 tablet by ity of tablet 00:00: mouth (two) Medical times Branch daily as needed (anxiety and depression ). busPIRone 2021-10 Yes [id number] 10mg Take 1 [facility] nivers 10 mg 1-30 tablet by ity of tablet 00:00: mouth (two) Medical times Branch daily as needed (anxiety and depression ). busPIRone 2021-10 Yes [id number] 10mg Take 1 [facility] nivers 10 mg 1-30 tablet by ity of tablet 00:00: mouth (two) Medical times Branch daily as needed (anxiety and depression ). busPIRone 2021-10 Yes [id number] 10mg Take 1 [facility] nivers 10 mg 1-30 tablet by ity of tablet 00:00: mouth (two) Medical times Branch daily as needed (anxiety and depression ). busPIRone 2021-10 Yes [id number] 10mg Take 1 [facility] nivers 10 mg 1-30 tablet by ity of tablet 00:00: mouth (two) Medical times Branch daily as needed (anxiety and depression ). busPIRone 2021-10 Yes [id number] 10mg Take 1 U nivers 10 mg 1-30 tablet by ity of tablet 00:00: mouth (two) Medical times Branch daily as needed (anxiety and depression ). busPIRone 2021-10 Yes [id number] 10mg Take 1 U nivers 10 mg 1-30 tablet by ity of tablet 00:00: mouth (two) Medical times Branch daily as needed (anxiety and depression ). busPIRone 2021-10 Yes [id number] 10mg Take 1 U nivers 10 mg 1-30 tablet by ity of tablet 00:00: mouth (two) Medical times Branch daily as needed (anxiety and depression ). busPIRone 2021-10 Yes [id number] 10mg Take 1 [facility] nivers 10 mg 1-30 tablet by ity of tablet 00:00: mouth 2 (two) Medical times Branch daily as needed (anxiety and depression ). busPIRone 2021-10 Yes [id number] 10mg Take 1 U nivers 10 mg 1-30 tablet by ity of tablet 00:00: mouth 2 (two) Medical times Branch daily as needed (anxiety and depression ). busPIRone 2021-10 Yes [id number] 10mg Take 1 U nivers 10 mg 1-30 tablet by ity of tablet 00:00: mouth (two) Medical times Branch daily as needed (anxiety and depression ). busPIRone 2021-10 Yes [id number] 10mg Take 1 [facility] nivers 10 mg 1-30 tablet by ity of tablet 00:00: mouth (two) Medical times Branch daily as needed (anxiety and depression ). busPIRone 2021-10 Yes [id number] 10mg Take 1 U nivers 10 mg 1-30 tablet by ity of tablet 00:00: mouth (two) Medical times Branch daily as needed (anxiety and depression ). busPIRone 2021-10 Yes [id number] 10mg Take 1 U nivers 10 mg 1-30 tablet by ity of tablet 00:00: mouth (two) Medical times Branch daily as needed (anxiety and depression ). busPIRone 2021-10 Yes [id number] 10mg Take 1 U nivers 10 mg 1-30 tablet by ity of tablet 00:00: mouth (two) Medical times Branch daily as needed (anxiety and depression ). busPIRone 2021-10 Yes [id number] 10mg Take 1 U nivers 10 mg 1-30 tablet by ity of tablet 00:00: mouth (two) Medical times Branch daily as needed (anxiety and depression ). busPIRone 2021-10 Yes [id number] 10mg Take 1 U nivers 10 mg 1-30 tablet by ity of tablet 00:00: mouth (two) Medical times Branch daily as needed (anxiety and depression ). busPIRone 2021-10 Yes [id number] 10mg Take 1 U nivers 10 mg 1-30 tablet by ity of tablet 00:00: mouth (two) Medical times Branch daily as needed (anxiety and depression ). busPIRone 2021-10 Yes [id number] 10mg Take 1 U nivers 10 mg 1-30 tablet by ity of tablet 00:00: mouth (two) Medical times Branch daily as needed (anxiety and depression ). busPIRone 2021-10 Yes [id number] 10mg Take 1 U nivers 10 mg 1-30 tablet by ity of tablet 00:00: mouth 2 00 (two) Medical times Branch daily as needed (anxiety and depression ). busPIRone 2021-10 Yes [id number] 10mg Take 1 U nivers 10 mg 1-30 tablet by ity of tablet 00:00: mouth 2 (two) Medical times Branch daily as needed (anxiety and depression ). busPIRone 2021-10 Yes [id number] 10mg Take 1 [facility] nivers 10 mg 1-30 tablet by ity of tablet 00:00: mouth 2 (two) Medical times Branch daily as needed (anxiety and depression ). busPIRone 2021-10 Yes [id number] 10mg Take 1 U nivers 10 mg 1-30 tablet by ity of tablet 00:00: mouth 2 (two) Medical times Branch daily as needed (anxiety and depression ). busPIRone 2021-10 Yes [id number] 10mg Take 1 U nivers 10 mg 1-30 tablet by ity of tablet 00:00: mouth 2 (two) Medical times Branch daily as needed (anxiety and depression ). busPIRone 2021-10 Yes [id number] 10mg Take 1 U nivers 10 mg 1-30 tablet by ity of tablet 00:00: mouth 2 (two) Medical times Branch daily as needed (anxiety and depression ). busPIRone 2021-10 Yes [id number] 10mg Take 1 U nivers 10 mg 1-30 tablet by ity of tablet 00:00: mouth 2 (two) Medical times Branch daily as needed (anxiety and depression ). busPIRone 2021-10 Yes [id number] 10mg Take 1 [facility] nivers 10 mg 1-30 tablet by ity of tablet 00:00: mouth 2 00 (two) Medical times Branch daily as needed (anxiety and depression ). busPIRone 2021-10 Yes [id number] 10mg Take 1 U nivers 10 mg 1-30 tablet by ity of tablet 00:00: mouth 2 00 (two) Medical times Branch daily as needed (anxiety and depression ). busPIRone 2021-10 Yes [id number] 10mg Take 1 U nivers 10 mg 1-30 tablet by ity of tablet 00:00: mouth 2 [place] [address] (two) [facility] times [place] daily as needed (anxiety and depression ). metFORMIN 2021-10 Yes [id number] 500mg Take 1 U nivers 500 mg 1-28 tablet by ity of tablet 00:00: mouth in [address] and 1 tablet in the evening. Take with meals. metFORMIN 2021-10 Yes [id number] 500mg Take 1 U nivers 500 mg 1-28 tablet by ity of tablet 00:00: mouth in [address] and 1 tablet in the evening. Take with meals. gabapentin 2021-10 Yes [id number] 100mg Take 1 [facility] 100 mg 1-28 capsule by ity of capsule 00:00: mouth in [address] and 1 capsule at noon and 1 capsule in the evening. metFORMIN 2021-10 Yes [id number] 500mg Take 1 U nivers 500 mg 1-28 tablet by ity of tablet 00:00: mouth in [address] and 1 tablet in the evening. Take with meals. gabapentin 2021-10 Yes [id number] 100mg Take 1 [facility] 100 mg 1-28 capsule by ity of capsule 00:00: mouth in [address] and 1 capsule at noon and 1 capsule in the evening. metFORMIN 2021-10 Yes [id number] 500mg Take 1 U nivers 500 mg 1-28 tablet by ity of tablet 00:00: mouth in [address] and 1 tablet in the evening. Take with meals. gabapentin 2021-10 Yes [id number] 100mg Take 1 [facility] 100 mg 1-28 capsule by ity of capsule 00:00: mouth in [address] and 1 capsule at noon and 1 capsule in the evening. metFORMIN 2021-10 Yes [id number] 500mg Take 1 [facility] nivers 500 mg 1-28 tablet by ity of tablet 00:00: mouth in [address] and 1 tablet in the evening. Take with meals. gabapentin 2021-10 Yes [id number] 100mg Take 1 [facility] 100 mg 1-28 capsule by ity of capsule 00:00: mouth in [address] and 1 capsule at noon and 1 capsule in the evening. metFORMIN 2021-10 Yes [id number] 500mg Take 1 U nivers 500 mg 1-28 tablet by ity of tablet 00:00: mouth in [address] morning [place] and 1 tablet in the evening. Take with meals. gabapentin 2021-10 Yes [id number] 100mg Take 1 [facility] 100 mg 1-28 capsule by ity of capsule 00:00: mouth in [address] morning [place] and 1 capsule at noon and 1 capsule in the evening. metFORMIN 2021-10 Yes [id number] 500mg Take 1 U nivers 500 mg 1-28 tablet by ity of tablet 00:00: mouth in [address] and 1 tablet in the evening. Take with meals. gabapentin 2021-10 Yes [id number] 100mg Take 1 [facility] 100 mg 1-28 capsule by ity of capsule 00:00: mouth in [address] and 1 capsule at noon and 1 capsule in the evening. metFORMIN 2021-10 Yes [id number] 500mg Take 1 U nivers 500 mg 1-28 tablet by ity of tablet 00:00: mouth in [address] and 1 tablet in the evening. Take with meals. gabapentin 2021-10 Yes [id number] 100mg Take 1 [facility] 100 mg 1-28 capsule by ity of capsule 00:00: mouth in [address] and 1 capsule at noon and 1 capsule in the evening. metFORMIN 2021-10 Yes [id number] 500mg Take 1 U nivers 500 mg 1-28 tablet by ity of tablet 00:00: mouth in [address] and 1 tablet in the evening. Take with meals. gabapentin 2021-10 Yes [id number] 100mg Take 1 [facility] 100 mg 1-28 capsule by ity of capsule 00:00: mouth in [address] and 1 capsule at noon and 1 capsule in the evening. metFORMIN 2021-10 Yes [id number] 500mg Take 1 U nivers 500 mg 1-28 tablet by ity of tablet 00:00: mouth in [address] and 1 tablet in the evening. Take with meals. gabapentin 2021-10 Yes [id number] 100mg Take 1 [facility] 100 mg 1-28 capsule by ity of capsule 00:00: mouth in [address] and 1 capsule at noon and 1 capsule in the evening. metFORMIN 2021-10 Yes [id number] 500mg Take 1 U nivers 500 mg 1-28 tablet by ity of tablet 00:00: mouth in [address] morning [place] and 1 tablet in the evening. Take with meals. gabapentin 2021-10 Yes [id number] 100mg Take 1 [facility] 100 mg 1-28 capsule by ity of capsule 00:00: mouth in [address] and 1 capsule at noon and 1 capsule in the evening. metFORMIN 2021-10 Yes [id number] 500mg Take 1 U nivers 500 mg 1-28 tablet by ity of tablet 00:00: mouth in [address] and 1 tablet in the evening. Take with meals. gabapentin 2021-10 Yes [id number] 100mg Take 1 [facility] 100 mg 1-28 capsule by ity of capsule 00:00: mouth in [address] and 1 capsule at noon and 1 capsule in the evening. metFORMIN 2021-10 Yes [id number] 500mg Take 1 U nivers 500 mg 1-28 tablet by ity of tablet 00:00: mouth in [address] and 1 tablet in the evening. Take with meals. gabapentin 2021-10 Yes [id number] 100mg Take 1 [facility] 100 mg 1-28 capsule by ity of capsule 00:00: mouth in [address] and 1 capsule at noon and 1 capsule in the evening. metFORMIN 2021-10 Yes [id number] 500mg Take 1 U nivers 500 mg 1-28 tablet by ity of tablet 00:00: mouth in [address] and 1 tablet in the evening. Take with meals. gabapentin 2021-10 Yes [id number] 100mg Take 1 [facility] 100 mg 1-28 capsule by ity of capsule 00:00: mouth in [address] and 1 capsule at noon and 1 capsule in the evening. metFORMIN 2021-10 Yes [id number] 500mg Take 1 U nivers 500 mg 1-28 tablet by ity of tablet 00:00: mouth in [address] and 1 tablet in the evening. Take with meals. gabapentin 2021-10 Yes [id number] 100mg Take 1 [facility] 100 mg 1-28 capsule by ity of capsule 00:00: mouth in [address] and 1 capsule at noon and 1 capsule in the evening. metFORMIN 2021-10 Yes [id number] 500mg Take 1 U nivers 500 mg 1-28 tablet by ity of tablet 00:00: mouth in [address] and 1 tablet in the evening. Take with meals. gabapentin 2021-10 Yes [id number] 100mg Take 1 [facility] 100 mg 1-28 capsule by ity of capsule 00:00: mouth in [address] and 1 capsule at noon and 1 capsule in the evening. metFORMIN 2021-10 Yes [id number] 500mg Take 1 U nivers 500 mg 1-28 tablet by ity of tablet 00:00: mouth in [address] and 1 tablet in the evening. Take with meals. gabapentin 2021-10 Yes [id number] 100mg Take 1 [facility] 100 mg 1-28 capsule by ity of capsule 00:00: mouth in [address] and 1 capsule at noon and 1 capsule in the evening. metFORMIN 2021-10 Yes [id number] 500mg Take 1 U nivers 500 mg 1-28 tablet by ity of tablet 00:00: mouth in [address] and 1 tablet in the evening. Take with meals. gabapentin 2021-10 Yes [id number] 100mg Take 1 [facility] 100 mg 1-28 capsule by ity of capsule 00:00: mouth in [address] and 1 capsule at noon and 1 capsule in the evening. metFORMIN 2021-10 Yes [id number] 500mg Take 1 U nivers 500 mg 1-28 tablet by ity of tablet 00:00: mouth in [address] and 1 tablet in the evening. Take with meals. gabapentin 2021-10 Yes [id number] 100mg Take 1 [facility] 100 mg 1-28 capsule by ity of capsule 00:00: mouth in [address] and 1 capsule at noon and 1 capsule in the evening. metFORMIN 2021-10 Yes [id number] 500mg Take 1 U nivers 500 mg 1-28 tablet by ity of tablet 00:00: mouth in [address] and 1 tablet in the evening. Take with meals. gabapentin 2021-10 Yes [id number] 100mg Take 1 [facility] 100 mg 1-28 capsule by ity of capsule 00:00: mouth in [place] 00 the Medical morning Branch and 1 capsule at noon and 1 capsule in the evening. metFORMIN 2021-10 Yes [id number] 500mg Take 1 U nivers 500 mg 1-28 tablet by ity of tablet 00:00: mouth in [address] and 1 tablet in the evening. Take with meals. gabapentin 2021-10 Yes [id number] 100mg Take 1 [facility] 100 mg 1-28 capsule by ity of capsule 00:00: mouth in [address] and 1 capsule at noon and 1 capsule in the evening. metFORMIN 2021-10 Yes [id number] 500mg Take 1 U nivers 500 mg 1-28 tablet by ity of tablet 00:00: mouth in [address] and 1 tablet in the evening. Take with meals. gabapentin 2021-10 Yes [id number] 100mg Take 1 [facility] 100 mg 1-28 capsule by ity of capsule 00:00: mouth in [address] and 1 capsule at noon and 1 capsule in the evening. metFORMIN 2021-10 Yes [id number] 500mg Take 1 U nivers 500 mg 1-28 tablet by ity of tablet 00:00: mouth in [address] and 1 tablet in the evening. Take with meals. gabapentin 2021-10 Yes [id number] 100mg Take 1 [facility] 100 mg 1-28 capsule by ity of capsule 00:00: mouth in [address] and 1 capsule at noon and 1 capsule in the evening. gabapentin 2021-10 Yes [id number] 100mg Take 1 [facility] 100 mg 1-28 capsule by ity of capsule 00:00: mouth in [address] and 1 capsule at noon and 1 capsule in the evening. gabapentin 2021-10 Yes [id number] 100mg Take 1 [facility] 100 mg 1-28 capsule by ity of capsule 00:00: mouth in [address] and 1 capsule at noon and 1 capsule in the evening. gabapentin 2021-10 Yes [id number] 100mg Take 1 [facility] 100 mg 1-28 capsule by ity of capsule 00:00: mouth in [address] and 1 capsule at noon and 1 capsule in the evening. gabapentin 2021-10 Yes [id number] 100mg Take 1 [facility] 100 mg 1-28 capsule by ity of capsule 00:00: mouth in [place] 00 the Medical morning Branch and 1 capsule at noon and 1 capsule in the evening. gabapentin 2021-103- No [id number] 100mg Take 1 [facility] 100 mg 11-17 capsule by ity of capsule 00:00: 00:00 mouth in [place] 00 :00 [facility] morning [place] and 1 capsule at noon and 1 capsule in the evening. gabapentin 2021-103- No [id number] 100mg Take 1 [facility] 100 mg 11-17 capsule by ity of capsule 00:00: 00:00 mouth in [place] 00 :00 [facility] morning [place] and 1 capsule at noon and 1 capsule in the evening. gabapentin 2021-10- No [id number] 100mg Take 1 [facility] 100 mg 11-17 capsule by ity of capsule 00:00: 00:00 mouth in [place] 00 :00 [facility] and 1 capsule at noon and 1 capsule in the evening. gabapentin 2021-10- No [id number] 100mg Take 1 [facility] 100 mg 11-17 capsule by ity of capsule 00:00: 00:00 mouth in [place] 00 :00 [facility] and 1 capsule at noon and 1 capsule in the evening. gabapentin 2021-10- No [id number] 100mg Take 1 [facility] 100 mg 11-17 capsule by ity of capsule 00:00: 00:00 mouth in [place] 00 :00 [facility] and 1 capsule at noon and 1 capsule in the evening. metFORMIN 2021-103- No [id number] 500mg Take 1 [facility] 500 mg 11-17 tablet by ity of tablet 00:00: 00:00 mouth in [place] 00 :00 [facility] and 1 tablet in the evening. Take with meals. metFORMIN 2021-103- No [id number] 500mg Take 1 [facility] 500 mg 11-17 tablet by ity of tablet 00:00: 00:00 mouth in [place] 00 :00 [facility] and 1 tablet in the evening. Take with meals. metFORMIN 2021-103- No [id number] 500mg Take 1 [facility] 500 mg 11-17 tablet by ity of tablet 00:00: 00:00 mouth in [place] 00 :00 [facility] and 1 tablet in the evening. Take with meals. metFORMIN 2021-10 No [id number] 500mg Take 1 [facility] 500 mg 11-17 tablet by ity of tablet 00:00: 00:00 mouth in [place] 00 :00 the Medical morning Branch and 1 tablet in the evening. Take with meals. erythromyci 2021-10 Yes 500mg Q.25D Take [address] [facility] [address] [facility] 1-[facility] by [facility] (E-MYCIN[facility]:00: mouth 4 Medic al 500 MG 00 (four) Center tablet times daily. metFORMIN 2021-10- No 500mg Take 500 [facility] 500 mg 1-18 11-18 mg by ity of tablet 11:33: 00:00 mouth 2 [place] 14 :00 (two) Medical times Branch daily with meals. Takes 2 tablets twice daily metFORMIN 2021-10- No 500mg Take 500 Un [facility] 500 mg -18 11-18 mg by ity of tablet 11:33: 00:00 mouth 2 [place] 14 :00 (two) Medical times Branch daily with meals. Takes 2 tablets twice daily metFORMIN 2021-10- No 500mg Take 500 Un [facility] 500 mg -18 11-18 mg by ity of tablet 11:33: 00:00 mouth 2 [place] 14 :00 (two) Medical times Branch daily with meals. Takes 2 tablets twice daily metFORMIN 2021-10- No 500mg Take 500 Un [facility] 500 mg -18 11-18 mg by ity of tablet 11:33: 00:00 mouth 2 [place] 14 :00 (two) Medical times Branch daily with meals. Takes 2 tablets twice daily metFORMIN 2021-10- No 500mg Take 500 Un [facility] 500 mg -18 11-18 mg by ity of tablet 11:33: 00:00 mouth 2 [place] 14 :00 (two) Medical times Branch daily with meals. Takes 2 tablets twice daily empaglifloz 2021-10- No Take by Un [facility]arius in 11-07-18 mouth ity of (JARDIANCE) 11:21: 00:00 daily. Juma as 25 mg Tab 06 :00 Medical Branch empaglifloz 2021-10- No Take by Un darius in 11-07-18 mouth ity of (JARDIANCE) 11:21: 00:00 daily. [...] Indication s: chronic pain carvediloL 2021-10 Yes [id number] 12.5mg Take 1 [facility] 12.5 mg 1-18 tablet by ity of tablet 00:00: mouth in [place] 00 the Medical morning Branch and 1 tablet in the evening. Take with meals. ondansetron 2021-10 Yes [id number] 4mg Take 1 [facility] 4 mg 1-18 tablet by [facility] dis[facility]at 00:00: mouth [place] ing tablet 00 every 8 Medica l (eight) Branch hours as needed for Nausea and Vomiting (N/V). tirzepatide 2021-10 Yes [id number] 2.5mg inject 2.5 [facility] ([facility]) 1-18 mg under [facility]y o f 2.5 mg/0.5 00:00: the skin [place] PnIj 00 weekly. [facility] Start [facility] 2.5mg SC qWeek x 4 Weeks, then increase to 5 mg SC qWeek tirzepatide 2021-10 Yes [id number] 5mg inject 5 [facility] ([facility]) 1-18 mg under ity o f 5 mg/0.5 mL 00:00: the skin [place] PnIj 00 weekly. [facility] Start [facility] 2.5mg SC qWeek x 4 Weeks, then increase to 5 mg SC qWeek metFORMIN 2021-10 Yes [id number] 500mg Take 1 [facility] nivers 500 mg [...] Indication s: chronic pain carvediloL 2021-10 Yes [id number] 12.5mg Take 1 [facility] 12.5 mg 1-18 tablet by [facility] of tablet 00:00: mouth in [place] 00 the Medical morning Branch and 1 tablet in the evening. Take with meals. ondansetron 2021-10 Yes [id number] 4mg Take 1 [facility] 4 mg 1-18 tablet by [facility] disintegrat 00:00: mouth [place] ing tablet 00 every 8 Medica l (eight) Branch hours as needed for Nausea and Vomiting (N/V). tirzepatide 2021-10 Yes [id number] 2.5mg inject 2.5 [facility] ([facility]) 1-18 mg under [facility]y o f 2.5 mg/0.5 00:00: the [place] PnIj 00 weekly. [facility] Start [facility] 2.5mg SC qWeek x 4 Weeks, then increase to 5 mg [facility] qWeek tirzepatide 2021-10 Yes [id number] 5mg inject 5 [facility] ([facility]) 1-18 mg under [facility]y o f 5 mg/0.5 mL 00:00: the skin [place] PnIj 00 weekly. [facility] Start [facility] 2.5mg SC qWeek x 4 Weeks, then increase to 5 mg SC qWeek metFORMIN 2021-10 Yes [id number] 500mg Take 1 [facility] n[facility] 500 mg [...] Indication s: chronic pain carvediloL 2021-10 Yes [id number] 12.5mg Take 1 [facility] 12.5 mg 1-18 tablet by [facility] of tablet 00:00: mouth in [place] 00 the Medical morning Branch and 1 tablet in the evening. Take with meals. ondansetron 2021-10 Yes [id number] 4mg Take 1 [facility] 4 mg 1-18 tablet by [facility] disintegrat 00:00: mouth [place] ing tablet 00 every 8 Medica l (eight) Branch hours as needed for Nausea and Vomiting (N/V). tirzepatide 2021-10 Yes [id number] 2.5mg inject 2.5 [facility] ([facility]) 1-18 mg under [facility]y o f 2.5 mg/0.5 00:00: the [place] PnIj 00 weekly. [facility] Start [facility] 2.5mg SC qWeek x 4 Weeks, then increase to 5 mg SC qWeek tirzepatide 2021-10 Yes [id number] 5mg inject 5 [facility] ([facility]) 1-18 mg under [facility] o f 5 mg/0.5 mL 00:00: the skin [place] PnIj 00 weekly. [facility] Start [facility] 2.5mg SC qWeek x 4 Weeks, then increase to 5 mg SC qWeek metFORMIN 2021-10 Yes [id number] 500mg Take 1 [facility] 500 mg 1-18 tablet by [facility] of tablet 00:00: mouth in [place] 00 the Medical morning Branch and 1 tablet in the evening. Take with meals. Takes 2 tablets twice daily traMADoL 50 2021-10 Yes [id number] 50mg Take 1 [facility] mg tablet 1-18 tablet by ity o f 00:00: mouth [place] 00 every 6 Medical (six) Branch hours as needed for Pain (scale 7-10) (Cannot take NSAIDS). Indication s: chronic pain carvediloL 2021-10 Yes [id number] 12.5mg Take 1 [facility] 12.5 mg 1-18 tablet by [facility] of tablet 00:00: mouth in [place] 00 the Medical morning Branch and 1 tablet in the evening. Take with meals. ondansetron 2021-10 Yes [id number] 4mg Take 1 [facility] 4 mg 1-18 tablet by [facility] disintegrat 00:00: mouth [place] ing tablet 00 every 8 [facility] l (eight) Branch hours as needed for Nausea and Vomiting (N/V). tirzepatide 2021-10 Yes [id number] 2.5mg inject 2.5 [facility] ([facility]) 1-18 mg under [facility] o f 2.5 mg/0.5 00:00: the [place] PnIj 00 weekly. [facility] Start [facility] 2.5mg SC qWeek x 4 Weeks, then increase to 5 mg SC qWeek tirzepatide 2021-10 Yes [id number] 5mg inject 5 [facility] ([facility]) 1-18 mg under [facility] o f 5 mg/0.5 mL 00:00: the skin [place] PnIj 00 weekly. [facility] Start [facility] 2.5mg SC qWeek x 4 Weeks, then increase to 5 mg SC qWeek metFORMIN 2021-10 Yes [id number] 500mg Take 1 [facility] n[facility] 500 mg [...] Indication s: chronic pain carvediloL 2021-10 Yes [id number] 12.5mg Take 1 [facility] 12.5 mg 1-18 tablet by [facility] of tablet 00:00: mouth in [place] 00 the Medical morning Branch and 1 tablet in the evening. Take with meals. ondansetron 2021-10 Yes [id number] 4mg Take 1 [facility] 4 mg 1-18 tablet by [facility] disintegrat 00:00: mouth [place] ing tablet 00 every 8 Med[facility] l (eight) Branch hours as needed for Nausea and Vomiting (N/V). tirzepatide 2021-10 Yes [id number] 2.5mg inject 2.5 [facility] ([facility]) 1-18 mg under [facility]y o f 2.5 mg/0.5 00:00: the [place] PnIj 00 weekly. [facility] Start [facility] 2.5mg SC qWeek x 4 Weeks, then increase to 5 mg SC qWeek tirzepatide 2021-10 Yes [id number] 5mg inject 5 [facility] ([facility]) 1-18 mg under [facility] o f 5 mg/0.5 mL 00:00: the skin [place] PnIj 00 weekly. [facility] Start [facility] 2.5mg SC qWeek x 4 Weeks, then increase to 5 mg SC qWeek metFORMIN 2021-10 Yes [id number] 500mg Take 1 [facility] n[facility] 500 mg [...] Indication s: chronic pain carvediloL 2021-10 Yes [id number] 12.5mg Take 1 [facility] 12.5 mg 1-18 tablet by [facility] of tablet 00:00: mouth in [place] 00 the Medical morning Branch and 1 tablet in the evening. Take with meals. ondansetron 2021-10 Yes [id number] 4mg Take 1 [facility] 4 mg 1-18 tablet by [facility] disintegrat 00:00: mouth [place] ing tablet 00 every 8 [facility] l (eight) Branch hours as needed for Nausea and Vomiting (N/V). tirzepatide 2021-10 Yes [id number] 2.5mg inject 2.5 [facility] ([facility]) 1-18 mg under [facility]y o f 2.5 mg/0.5 00:00: the [place] PnIj 00 weekly. [facility] Start [facility] 2.5mg SC qWeek x 4 Weeks, then increase to 5 mg SC qWeek tirzepatide 2021-10 Yes [id number] 5mg inject 5 [facility] ([facility]) 1-18 mg [...] Indication s: chronic pain carvediloL 2021-10 Yes [id number] 12.5mg Take 1 [facility] 12.5 mg 1-18 tablet by [facility] of tablet 00:00: mouth in [place] 00 the Medical morning Branch and 1 tablet in the evening. Take with meals. ondansetron 2021-10 Yes [id number] 4mg Take 1 [facility] 4 mg 1-18 tablet by [facility] disintegrat 00:00: mouth [place] ing tablet 00 every 8 [facility] (eight) Branch hours as needed for Nausea and Vomiting (N/V). tirzepatide 2021-10 Yes [id number] 2.5mg inject 2.5 [facility] ([facility]) 1-18 mg under [facility] o f 2.5 mg/0.5 00:00: the [place] PnIj 00 weekly. [facility] Start [facility] 2.5mg SC qWeek x 4 Weeks, then increase to 5 mg SC qWeek tirzepatide 2021-10 Yes [id number] 5mg inject 5 [facility] ([facility]) 1-18 mg [...] Indication s: chronic pain carvediloL 2021-10 Yes [id number] 12.5mg Take 1 [facility] 12.5 mg 1-18 tablet by [facility] of tablet 00:00: mouth in [place] 00 the Medical morning Branch and 1 tablet in the evening. Take with meals. ondansetron 2021-10 Yes [id number] 4mg Take 1 [facility] 4 mg 1-18 tablet by [facility] disintegrat 00:00: mouth [place] ing tablet 00 every 8 [facility] (eight) Branch hours as needed for Nausea and Vomiting (N/V). tirzepatide 2021-10 Yes [id number] 2.5mg inject 2.5 [facility] ([facility]) 1-18 mg under [facility] o f 2.5 mg/0.5 00:00: the [place] PnIj 00 weekly. [facility] Start [facility] 2.5mg SC qWeek x 4 Weeks, then increase to 5 mg SC qWeek tirzepatide 2021-10 Yes [id number] 5mg inject 5 [facility] ([facility]) 1-18 mg [...] Indication s: chronic pain carvediloL 2021-10 Yes [id number] 12.5mg Take 1 [facility] 12.5 mg 1-18 tablet by [facility] of tablet 00:00: mouth in [place] 00 the Medical morning Branch and 1 tablet in the evening. Take with meals. ondansetron 2021-10 Yes [id number] 4mg Take 1 [facility] 4 mg 1-18 tablet by [facility] disintegrat 00:00: mouth [place] ing tablet 00 every 8 [facility] l (eight) Branch hours as needed for Nausea and Vomiting (N/V). tirzepatide 2021-10 Yes [id number] 2.5mg inject 2.5 [facility] ([facility]) 1-18 mg under [facility]y o f 2.5 mg/0.5 00:00: the [place] PnIj 00 weekly. [facility] Start [facility] 2.5mg SC qWeek x 4 Weeks, then increase to 5 mg SC qWeek tirzepatide 2021-10 Yes [id number] 5mg inject 5 [facility] ([facility]) 1-18 mg [...] Indication s: chronic pain carvediloL 2021-10 Yes [id number] 12.5mg Take 1 [facility] 12.5 mg 1-18 tablet by [facility] of tablet 00:00: mouth in [place] 00 the Medical morning Branch and 1 tablet in the evening. Take with meals. ondansetron 2021-10 Yes [id number] 4mg Take 1 [facility] 4 mg 1-18 tablet by [facility] disintegrat 00:00: mouth [place] ing tablet 00 every 8 [facility] l (eight) Branch hours as needed for Nausea and Vomiting (N/V). tirzepatide 2021-10 Yes [id number] 2.5mg inject 2.5 [facility] ([facility]) 1-18 mg under [facility]y o f 2.5 mg/0.5 00:00: the [place] PnIj 00 weekly. [facility] Start [facility] 2.5mg SC qWeek x 4 Weeks, then increase to 5 mg SC qWeek tirzepatide 2021-10 Yes [id number] 5mg inject 5 [facility] ([facility]) 1-18 mg [...] Indication s: chronic pain carvediloL 2021-10 Yes [id number] 12.5mg Take 1 [facility] 12.5 mg 1-18 tablet by [facility] of tablet 00:00: mouth in [place] 00 the Medical morning Branch and 1 tablet in the evening. Take with meals. ondansetron 2021-10 Yes [id number] 4mg Take 1 [facility] 4 mg 1-18 tablet by [facility] of disintegrat 00:00: mouth [place] ing tablet 00 every 8 Medica l (eight) Branch hours as needed for Nausea and Vomiting (N/V). tirzepatide 2021-10 Yes [id number] 2.5mg inject 2.5 [facility] ([facility]) 1-18 mg under [facility]y o f 2.5 mg/0.5 00:00: the [place] PnIj 00 weekly. [facility] Start [facility] 2.5mg SC qWeek x 4 Weeks, then increase to 5 mg SC qWeek tirzepatide 2021-10 Yes [id number] 5mg inject 5 [facility] ([facility]) 1-18 mg [...] Indication s: chronic pain carvediloL 2021-10 Yes [id number] 12.5mg Take 1 [facility] 12.5 mg 1-18 tablet by [facility] of tablet 00:00: mouth in [place] 00 the Medical morning Branch and 1 tablet in the evening. Take with meals. ondansetron 2021-10 Yes [id number] 4mg Take 1 [facility] 4 mg 1-18 tablet by [facility] of disintegrat 00:00: mouth [place] ing tablet 00 every 8 [facility] (eight) Branch hours as needed for Nausea and Vomiting (N/V). tirzepatide 2021-10 Yes [id number] 2.5mg inject 2.5 [facility] ([facility]) 1-18 mg under [facility]y o f 2.5 mg/0.5 00:00: the [place] PnIj 00 weekly. [facility] Start [facility] 2.5mg SC qWeek x 4 Weeks, then increase to 5 mg SC qWeek tirzepatide 2021-10 Yes [id number] 5mg inject 5 [facility] ([facility]) 1-18 mg [...] Indication s: chronic pain carvediloL 2021-10 Yes [id number] 12.5mg Take 1 [facility] 12.5 mg 1-18 tablet by [facility] of tablet 00:00: mouth in [place] 00 the Medical morning Branch and 1 tablet in the evening. Take with meals. ondansetron 2021-10 Yes [id number] 4mg Take 1 [facility] 4 mg 1-18 tablet by [facility] of disintegrat 00:00: mouth [place] ing tablet 00 every 8 Medica l (eight) Branch hours as needed for Nausea and Vomiting (N/V). tirzepatide 2021-10 Yes [id number] 2.5mg inject 2.5 [facility] ([facility]) 1-18 mg under [facility]y o f 2.5 mg/0.5 00:00: the [place] PnIj 00 weekly. [facility] Start [facility] 2.5mg SC qWeek x 4 Weeks, then increase to 5 mg SC qWeek tirzepatide 2021-10 Yes [id number] 5mg inject 5 [facility] ([facility]) 1-18 mg [...] Indication s: chronic pain carvediloL 2021-10 Yes [id number] 12.5mg Take 1 [facility] 12.5 mg 1-18 tablet by [facility] of tablet 00:00: mouth in [place] 00 the Medical morning Branch and 1 tablet in the evening. Take with meals. ondansetron 2021-10 Yes [id number] 4mg Take 1 [facility] 4 mg 1-18 tablet by [facility] of disintegrat 00:00: mouth [place] ing tablet 00 every 8 Medica l (eight) Branch hours as needed for Nausea and Vomiting (N/V). tirzepatide 2021-10 Yes [id number] 2.5mg inject 2.5 [facility] ([facility]) 1-18 mg under [facility]y o f 2.5 mg/0.5 00:00: the [place] PnIj 00 weekly. [facility] Start [facility] 2.5mg SC qWeek x 4 Weeks, then increase to 5 mg SC qWeek tirzepatide 2021-10 Yes [id number] 5mg inject 5 [facility] ([facility]) 1-18 mg [...] Indication s: chronic pain carvediloL 2021-10 Yes [id number] 12.5mg Take 1 [facility] 12.5 mg 1-18 tablet by [facility] of tablet 00:00: mouth in [place] 00 the Medical morning Branch and 1 tablet in the evening. Take with meals. ondansetron 2021-10 Yes [id number] 4mg Take 1 [facility] 4 mg 1-18 tablet by [facility] of disintegrat 00:00: mouth [place] ing tablet 00 every 8 Medica l (eight) Branch hours as needed for Nausea and Vomiting (N/V). traMADoL 50 2021-10 Yes [id number] 50mg Take 1 [facility] mg tablet 1-18 tablet by ity o f 00:00: mouth [place] 00 every 6 Medical (six) Branch hours as needed for Pain (scale 7-10) (Cannot take NSAIDS). Indication s: chronic pain carvediloL 2021-10 Yes [id number] 12.5mg Take 1 [facility] 12.5 mg 1-18 tablet by [facility] of tablet 00:00: mouth in [place] 00 the Medical morning Branch and 1 tablet in the evening. Take with meals. ondansetron 2021-10 Yes [id number] 4mg Take 1 [facility] 4 mg 1-18 tablet by [facility] of disintegrat 00:00: mouth [place] ing tablet 00 every 8 [facility] l (eight) Branch hours as needed for Nausea and Vomiting (N/V). traMADoL 50 2021-10 Yes [id number] 50mg Take 1 [facility] mg tablet 1-18 tablet by ity o f 00:00: mouth [place] 00 every 6 Medical (six) Branch hours as needed for Pain (scale 7-10) (Cannot take NSAIDS). Indication s: chronic pain carvediloL 2021-10 Yes [id number] 12.5mg Take 1 [facility] 12.5 mg 1-18 tablet by [facility] of tablet 00:00: mouth in [place] 00 the Medical morning Branch and 1 tablet in the evening. Take with meals. ondansetron 2021-10 Yes [id number] 4mg Take 1 [facility] 4 mg 1-18 tablet by [facility] of disintegrat 00:00: mouth [place] ing tablet 00 every 8 [facility] (eight) Branch hours as needed for Nausea and Vomiting (N/V). traMADoL 50 2021-10 Yes [id number] 50mg Take 1 [facility] mg tablet 1-18 tablet by ity o f 00:00: mouth [place] 00 every 6 Medical (six) Branch hours as needed for Pain (scale 7-10) (Cannot take NSAIDS). Indication s: chronic pain carvediloL 2021-10 Yes [id number] 12.5mg Take 1 [facility] 12.5 mg 1-18 tablet by [facility] of tablet 00:00: mouth in [place] 00 the Medical morning Branch and 1 tablet in the evening. Take with meals. ondansetron 2021-10 Yes [id number] 4mg Take 1 [facility] 4 mg 1-18 tablet by [facility] of disintegrat 00:00: mouth [place] ing tablet 00 every 8 [facility] l (eight) Branch hours as needed for Nausea and Vomiting (N/V). traMADoL 50 2021-10 Yes [id number] 50mg Take 1 [facility] mg tablet 1-18 tablet by ity o f 00:00: mouth [place] 00 every 6 Medical (six) Branch hours as needed for Pain (scale 7-10) (Cannot take NSAIDS). Indication s: chronic pain carvediloL 2021-10 Yes [id number] 12.5mg Take 1 [facility] 12.5 mg 1-18 tablet by [facility] of tablet 00:00: mouth in [place] 00 the Medical morning Branch and 1 tablet in the evening. Take with meals. ondansetron 2021-10 Yes [id number] 4mg Take 1 [facility] 4 mg 1-18 tablet by [facility] of disintegrat 00:00: mouth [place] ing tablet 00 every 8 [facility] (eight) Branch hours as needed for Nausea and Vomiting (N/V). traMADoL 50 2021-10 Yes [id number] 50mg Take 1 [facility] mg tablet 1-18 tablet by ity o f 00:00: mouth [place] 00 every 6 Medical (six) Branch hours as needed for Pain (scale 7-10) (Cannot take NSAIDS). Indication s: chronic pain carvediloL 2021-10 Yes [id number] 12.5mg Take 1 [facility] 12.5 mg 1-18 tablet by [facility] of tablet 00:00: mouth in [place] 00 the Medical morning Branch and 1 tablet in the evening. Take with meals. ondansetron 2021-10 Yes [id number] 4mg Take 1 [facility] 4 mg 1-18 tablet by [facility] of disintegrat 00:00: mouth [place] ing tablet 00 every 8 [facility] (eight) Branch hours as needed for Nausea and Vomiting (N/V). traMADoL 50 2021-10 Yes [id number] 50mg Take 1 [facility] mg tablet 1-18 tablet by ity o f 00:00: mouth [place] 00 every 6 Medical (six) Branch hours as needed for Pain (scale 7-10) (Cannot take NSAIDS). Indication s: chronic pain carvediloL 2021-10 Yes [id number] 12.5mg Take 1 [facility] 12.5 mg 1-18 tablet by [facility] of tablet 00:00: mouth in [place] 00 the Medical morning Branch and 1 tablet in the evening. Take with meals. ondansetron 2021-10 Yes [id number] 4mg Take 1 [facility] 4 mg 1-18 tablet by [facility] of disintegrat 00:00: mouth [place] ing tablet 00 every 8 [facility] l (eight) Branch hours as needed for Nausea and Vomiting (N/V). traMADoL 50 2021-10 Yes [id number] 50mg Take 1 [facility] mg tablet 1-18 tablet by ity o f 00:00: mouth [place] 00 every 6 Medical (six) Branch hours as needed for Pain (scale 7-10) (Cannot take NSAIDS). Indication s: chronic pain carvediloL 2021-10 Yes [id number] 12.5mg Take 1 [facility] 12.5 mg 1-18 tablet by [facility] of tablet 00:00: mouth in [place] 00 the Medical morning Branch and 1 tablet in the evening. Take with meals. ondansetron 2021-10 Yes [id number] 4mg Take 1 [facility] 4 mg 1-18 tablet by [facility] of disintegrat 00:00: mouth [place] ing tablet 00 every 8 [facility] l (eight) Branch hours as needed for Nausea and Vomiting (N/V). traMADoL 50 2021-10 Yes [id number] 50mg Take 1 [facility] mg tablet 1-18 tablet by ity o f 00:00: mouth [place] 00 every 6 Medical (six) Branch hours as needed for Pain (scale 7-10) (Cannot take NSAIDS). Indication s: chronic pain carvediloL 2021-10 Yes [id number] 12.5mg Take 1 [facility] 12.5 mg 1-18 tablet by [facility] of tablet 00:00: mouth in [place] 00 the Medical morning Branch and 1 tablet in the evening. Take with meals. ondansetron 2021-10 Yes [id number] 4mg Take 1 [facility] 4 mg 1-18 tablet by [facility] of disintegrat 00:00: mouth [place] ing tablet 00 every 8 Med[facility] l (eight) Branch hours as needed for Nausea and Vomiting (N/V). traMADoL 50 2021-10 Yes [id number] 50mg Take 1 [facility] mg tablet 1-18 tablet by ity o f 00:00: mouth [place] 00 every 6 Medical (six) Branch hours as needed for Pain (scale 7-10) (Cannot take NSAIDS). Indication s: chronic pain carvediloL 2021-10 Yes [id number] 12.5mg Take 1 [facility] 12.5 mg 1-18 tablet by [facility] of tablet 00:00: mouth in [place] 00 the Medical morning Branch and 1 tablet in the evening. Take with meals. ondansetron 2021-10 Yes [id number] 4mg Take 1 [facility] 4 mg 1-18 tablet by [facility] of disintegrat 00:00: mouth [place] ing tablet 00 every 8 [facility] l (eight) Branch hours as needed for Nausea and Vomiting (N/V). traMADoL 50 2021-10 Yes [id number] 50mg Take 1 [facility] mg tablet 1-18 tablet by ity o f 00:00: mouth [place] 00 every 6 Medical (six) Branch hours as needed for Pain (scale 7-10) (Cannot take NSAIDS). Indication s: chronic pain carvediloL 2021-10 Yes [id number] 12.5mg Take 1 [facility] 12.5 mg 1-18 tablet by [facility] of tablet 00:00: mouth in [place] 00 the Medical morning Branch and 1 tablet in the evening. Take with meals. ondansetron 2021-10 Yes [id number] 4mg Take 1 [facility] 4 mg 1-18 tablet by [facility] of disintegrat 00:00: mouth [place] ing tablet 00 every 8 [facility] l (eight) Branch hours as needed for Nausea and Vomiting (N/V). traMADoL 50 2021-10 Yes [id number] 50mg Take 1 [facility] mg tablet 1-18 tablet by ity o f 00:00: mouth [place] 00 every 6 Medical (six) Branch hours as needed for Pain (scale 7-10) (Cannot take NSAIDS). Indication s: chronic pain carvediloL 2021-10 Yes [id number] 12.5mg Take 1 [facility] 12.5 mg 1-18 tablet by [facility] of tablet 00:00: mouth in [place] 00 the Medical morning Branch and 1 tablet in the evening. Take with meals. ondansetron 2021-10 Yes [id number] 4mg Take 1 [facility] 4 mg 1-18 tablet by [facility] of disintegrat 00:00: mouth [place] ing tablet 00 every 8 [facility] l (eight) Branch hours as needed for Nausea and Vomiting (N/V). traMADoL 50 2021-10 Yes [id number] 50mg Take 1 [facility] mg tablet 1-18 tablet by ity o f 00:00: mouth [place] 00 every 6 Medical (six) Branch hours as needed for Pain (scale 7-10) (Cannot take NSAIDS). Indication s: chronic pain carvediloL 2021-10 Yes [id number] 12.5mg Take 1 [facility] 12.5 mg 1-18 tablet by [facility] of tablet 00:00: mouth in [place] 00 the Medical morning Branch and 1 tablet in the evening. Take with meals. ondansetron 2021-10 Yes [id number] 4mg Take 1 [facility] 4 mg 1-18 tablet by [facility] of disintegrat 00:00: mouth [place] ing tablet 00 every 8 [facility] l (eight) Branch hours as needed for Nausea and Vomiting (N/V). traMADoL 50 2021-10 Yes [id number] 50mg Take 1 [facility] mg tablet 1-18 tablet by ity o f 00:00: mouth [place] 00 every 6 Medical (six) Branch hours as needed for Pain (scale 7-10) (Cannot take NSAIDS). Indication s: chronic pain carvediloL 2021-10 Yes [id number] 12.5mg Take 1 [facility] 12.5 mg 1-18 tablet by [facility] of tablet 00:00: mouth in [place] 00 the Medical morning Branch and 1 tablet in the evening. Take with meals. ondansetron 2021-10 Yes [id number] 4mg Take 1 [facility] 4 mg 1-18 tablet by [facility] of disintegrat 00:00: mouth [place] ing tablet 00 every 8 [facility] l (eight) Branch hours as needed for Nausea and Vomiting (N/V). traMADoL 50 2021-10 Yes [id number] 50mg Take 1 [facility] mg tablet 1-18 tablet by ity o f 00:00: mouth [place] 00 every 6 Medical (six) Branch hours as needed for Pain (scale 7-10) (Cannot take NSAIDS). Indication s: chronic pain carvediloL 2021-10 Yes [id number] 12.5mg Take 1 [facility] 12.5 mg 1-18 tablet by [facility] of tablet 00:00: mouth in [place] 00 the Medical morning Branch and 1 tablet in the evening. Take with meals. ondansetron 2021-10 Yes [id number] 4mg Take 1 [facility] 4 mg 1-18 tablet by [facility] of disintegrat 00:00: mouth [place] ing tablet 00 every 8 [facility] (eight) Branch hours as needed for Nausea and Vomiting (N/V). traMADoL 50 2021-10 Yes [id number] 50mg Take 1 [facility] mg tablet 1-18 tablet by ity o f 00:00: mouth [place] 00 every 6 Medical (six) Branch hours as needed for Pain (scale 7-10) (Cannot take NSAIDS). Indication s: chronic pain carvediloL 2021-10 Yes [id number] 12.5mg Take 1 [facility] 12.5 mg 1-18 tablet by [facility] of tablet 00:00: mouth in [place] 00 the Medical morning Branch and 1 tablet in the evening. Take with meals. ondansetron 2021-10 Yes [id number] 4mg Take 1 [facility] 4 mg 1-18 tablet by [facility] of disintegrat 00:00: mouth [place] ing tablet 00 every 8 Medica l (eight) Branch hours as needed for Nausea and Vomiting (N/V). carvediloL 2021-10 Yes [id number] 12.5mg Take 1 [facility] 12.5 mg 1-18 tablet by [facility] of tablet 00:00: mouth in [place] 00 the Medical morning Branch and 1 tablet in the evening. Take with meals. ondansetron 2021-10 Yes [id number] 4mg Take 1 [facility] 4 mg 1-18 tablet by [facility] of disintegrat 00:00: mouth [place] ing tablet 00 every 8 Medica l (eight) Branch hours as needed for Nausea and Vomiting (N/V). carvediloL 2021-10 Yes [id number] 12.5mg Take 1 [facility] 12.5 mg 1-18 tablet by [facility] of tablet 00:00: mouth in [place] 00 the Medical morning Branch and 1 tablet in the evening. Take with meals. ondansetron 2021-10 Yes [id number] 4mg Take 1 [facility] 4 mg 1-18 tablet by [facility] of disintegrat 00:00: mouth [place] ing tablet 00 every 8 Medica l (eight) Branch hours as needed for Nausea and Vomiting (N/V). carvediloL 2021-10 Yes [id number] 12.5mg Take 1 [facility] 12.5 mg 1-18 tablet by [facility] of tablet 00:00: mouth in [place] 00 the Medical morning Branch and 1 tablet in the evening. Take with meals. ondansetron 2021-10 Yes [id number] 4mg Take 1 [facility] 4 mg 1-18 tablet by [facility] of disintegrat 00:00: mouth [place] ing tablet 00 every 8 Medica l (eight) Branch hours as needed for Nausea and Vomiting (N/V). carvediloL 2021-10 Yes [id number] 12.5mg Take 1 [facility] 12.5 mg 1-18 tablet by [facility] of tablet 00:00: mouth in [place] 00 the Medical morning Branch and 1 tablet in the evening. Take with meals. ondansetron 2021-10 Yes [id number] 4mg Take 1 [facility] 4 mg 1-18 tablet by [facility] of disintegrat 00:00: mouth [place] ing tablet 00 every 8 Medica l (eight) Branch hours as needed for Nausea and Vomiting (N/V). carvediloL 2021-10 Yes [id number] 12.5mg Take 1 [facility] 12.5 mg 1-18 tablet by [facility] of tablet 00:00: mouth in [place] 00 the Medical morning Branch and 1 tablet in the evening. Take with meals. ondansetron 2021-10 Yes [id number] 4mg Take 1 [facility] 4 mg 1-18 tablet by [facility] of disintegrat 00:00: mouth [place] ing tablet 00 every 8 Medica l (eight) Branch hours as needed for Nausea and Vomiting (N/V). carvediloL 2021-10 Yes [id number] 12.5mg Take 1 [facility] 12.5 mg 1-18 tablet by [facility] of tablet 00:00: mouth in [place] 00 the Medical morning Branch and 1 tablet in the evening. Take with meals. ondansetron 2021-10 Yes [id number] 4mg Take 1 [facility] 4 mg 1-18 tablet by [facility] of disintegrat 00:00: mouth [place] ing tablet 00 every 8 Medica l (eight) Branch hours as needed for Nausea and Vomiting (N/V). carvediloL 2021-10 Yes [id number] 12.5mg Take 1 [facility] 12.5 mg 1-18 tablet by [facility] of tablet 00:00: mouth in [place] the [facility] morning Branch and 1 tablet in the evening. Take with meals. ondansetron 2021-10 Yes [id number] 4mg Take 1 [facility] 4 mg 1-18 tablet by ity of disintegrat 00:00: mouth [place] ing tablet 00 every 8 Medica l (eight) Branch hours as needed for Nausea and Vomiting (N/V). carvediloL 2021-10 Yes [id number] 12.5mg Take 1 [facility] 12.5 mg 1-18 tablet by ity of tablet 00:00: mouth in [place] 00 the Medical morning Branch and 1 tablet in the evening. Take with meals. ondansetron 2021-10 Yes [id number] 4mg Take 1 [facility] 4 mg 1-18 tablet by ity of disintegrat 00:00: mouth [place] ing tablet 00 every 8 Medica l (eight) Branch hours as needed for Nausea and Vomiting (N/V). carvediloL 2021-10 Yes [id number] 12.5mg Take 1 [facility] 12.5 mg 1-18 tablet by ity of tablet 00:00: mouth in [place] 00 the Medical morning Branch and 1 tablet in the evening. Take with meals. ondansetron 2021-10 Yes [id number] 4mg Take 1 [facility] 4 mg 1-18 tablet by ity of disintegrat 00:00: mouth [place] ing tablet 00 every 8 Medica l (eight) Branch hours as needed for Nausea and Vomiting (N/V). carvediloL 2021-10 Yes [id number] 12.5mg Take 1 [facility] 12.5 mg 1-18 tablet by ity of tablet 00:00: mouth in [place] 00 the Medical morning Branch and 1 tablet in the evening. Take with meals. ondansetron 2021-10 Yes [id number] 4mg Take 1 [facility] 4 mg 1-18 tablet by ity of disintegrat 00:00: mouth [place] ing tablet 00 every 8 Medica l (eight) Branch hours as needed for Nausea and Vomiting (N/V). traMADoL 50 2021-10- No [id number] 50mg Take 1 [facility] vers mg tablet 11-07 tablet by ity of 00:00: 00:00 mouth [place] 00 :00 every 6 Medical (six) Branch hours as needed for Pain (scale 7-10) (Cannot take NSAIDS). Indication s: chronic pain traMADoL 50 2021-10- No [id number] 50mg Take 1 [facility] vers mg tablet 11-07 tablet by ity of 00:00: 00:00 mouth [place] 00 :00 every 6 Medical (six) Branch hours as needed for Pain (scale 7-10) (Cannot take NSAIDS). Indication s: chronic pain traMADoL 50 2021-10- No [id number] 50mg Take 1 [facility] vers mg tablet 11-07- tablet by ity of 00:00: 00:00 mouth [place] 00 :00 every 6 Medical (six) Branch hours as needed for Pain (scale 7-10) (Cannot take NSAIDS). Indication s: chronic pain traMADoL 50 2021-10- No [id number] 50mg Take 1 [facility] vers mg tablet 11-07- tablet by ity of 00:00: 00:00 mouth [place] 00 :00 every 6 Medical (six) Branch hours as needed for Pain (scale 7-10) (Cannot take NSAIDS). Indication s: chronic pain tirzepatide 2021-10- No [id number] 2.5mg inject 2.5 [facility] (MOUNJARO) 1-18 12-28 mg under ity of 2.5 mg/0.5 00:00: 00:00 [place] skin [place] mL PnIj 00 :00 weekly. Medical Start Branch 2.5mg SC qWeek x 4 Weeks, then increase to 5 mg [place] qWeek tirzepatide 2021-10- No [id number] 5mg inject 5 [facility] (MOUNJARO) 1-18 12-28 mg under ity of 5 mg/0.5 mL 00:00: 00:00 [place] PnIj 00 :00 weekly. Medical Start Branch 2.5mg SC qWeek x 4 Weeks, then increase to 5 mg [place] qWeek tirzepatide 2021-10- No [id number] 2.5mg inject 2.5 [facility] (MOUNJARO) 1-18 12-28 mg under ity of 2.5 mg/0.5 00:00: 00:00 [place] skin [place] mL PnIj 00 :00 weekly. Medical Start Branch 2.5mg SC qWeek x 4 Weeks, then increase to 5 mg [place] qWeek tirzepatide 2021-10- No [id number] 5mg inject 5 [facility] (MOUNJARO) 1-18 12-28 mg under ity of 5 mg/0.5 mL 00:00: 00:00 the skin [place] PnIj 00 :00 weekly. Medical Start Branch 2.5mg SC qWeek x 4 Weeks, then increase to 5 mg [place] qWeek metFORMIN 2021-10- No [id number] 500mg Take 1 [facility] 500 mg -18 -28 tablet by ity of tablet 00:00: 00:00 mouth in [place] 00 :00 the Medical morning Branch and 1 tablet in the evening. Take with meals. Takes 2 tablets twice daily metFORMIN 2021-10- No [id number] 500mg Take 1 [facility] 500 mg -18 -28 tablet by ity of tablet 00:00: 00:00 mouth in [place] 00 :00 the Medical morning Branch and 1 tablet in the evening. Take with meals. Takes 2 tablets twice daily lipase-prot 2021-10 Yes [id number] Take 2 [facility]-amylas 1-11 capsules ity of e 00:00: by mouth [place] 36,000-114, 00 with meals Me dical 000- and 1 with Branch 180,000 each unit CpDR snack. lipase-prot 2021-10 Yes [id number] Take 2 [facility] ease-amylas 1-11 capsules ity of e 00:00: by mouth [place] 36,000-114, 00 with meals Me dical 000- and 1 with Branch 180,000 each unit CpDR snack. lipase-prot 2021-10 Yes [id number] Take 2 [facility] ease-amylas 1-11 capsules ity of e 00:00: by mouth [place] 36,000-114, 00 with meals Me dical 000- and 1 with Branch 180,000 each unit CpDR snack. lipase-prot 2021-10 Yes [id number] Take 2 [facility] ease-amylas 1-11 capsules ity of e 00:00: by mouth [place] 36,000-114, 00 with meals Me dical 000- and 1 with Branch 180,000 each unit CpDR snack. lipase-prot 2021-10 Yes [id number] Take 2 [facility] ease-amylas 1-11 capsules ity of e 00:00: by mouth [place] 36,000-114, 00 with meals Me dical 000- and 1 with Branch 180,000 each unit CpDR snack. lipase-prot 2021-10 Yes [id number] Take 2 [facility] ease-amylas 1-11 capsules ity of e 00:00: by mouth [place] 36,000-114, 00 with meals Me dical 000- and 1 with Branch 180,000 each unit CpDR snack. lipase-prot 2021-10 Yes [id number] Take 2 [facility] ease-amylas 1-11 capsules ity of e 00:00: by mouth [place] 36,000-114, 00 with meals Me dical 000- and 1 with Branch 180,000 each unit CpDR snack. lipase-prot 2021-10 Yes [id number] Take 2 [facility] ease-amylas 1-11 capsules ity of e 00:00: by mouth [place] 36,000-114, 00 with meals Me dical 000- and 1 with Branch 180,000 each unit CpDR snack. lipase-prot 2021-10 Yes [id number] Take 2 [facility] ease-amylas 1-11 capsules ity of e 00:00: by mouth [place] 36,000-114, 00 with meals Me dical 000- and 1 with Branch 180,000 each unit CpDR snack. lipase-prot 2021-10 Yes [id number] Take 2 [facility] ease-amylas 1-11 capsules ity of e 00:00: by mouth [place] 36,000-114, 00 with meals Me dical 000- and 1 with Branch 180,000 each unit CpDR snack. lipase-prot 2021-10 Yes [id number] Take 2 [facility] ease-amylas 1-11 capsules ity of e 00:00: by mouth [place] 36,000-114, 00 with meals Me dical 000- and 1 with Branch 180,000 each unit CpDR snack. lipase-prot 2021-10 Yes [id number] Take 2 [facility] ease-amylas 1-11 capsules ity of e 00:00: by mouth [place] 36,000-114, 00 with meals Me dical 000- and 1 with Branch 180,000 each unit CpDR snack. lipase-prot 2021-10 Yes [id number] Take 2 [facility] ease-amylas 1-11 capsules ity of e 00:00: by mouth [place] 36,000-114, 00 with meals Me dical 000- and 1 with Branch 180,000 each unit CpDR snack. lipase-prot 2021-10 Yes [id number] Take 2 [facility] ease-amylas 1-11 capsules ity of e 00:00: by mouth [place] 36,000-114, 00 with meals Me dical 000- and 1 with Branch 180,000 each unit CpDR snack. lipase-prot 2021-10 Yes [id number] Take 2 [facility] ease-amylas 1-11 capsules ity of e 00:00: by mouth [place] 36,000-114, 00 with meals Me dical 000- and 1 with Branch 180,000 each unit CpDR snack. lipase-prot 2021-10 Yes [id number] Take 2 [facility] ease-amylas 1-11 capsules ity of e 00:00: by mouth [place] 36,000-114, 00 with meals Me dical 000- and 1 with Branch 180,000 each unit CpDR snack. lipase-prot 2021-10 Yes [id number] Take 2 [facility] ease-amylas 1-11 capsules ity of e 00:00: by mouth [place] 36,000-114, 00 with meals Me dical 000- and 1 with Branch 180,000 each unit CpDR snack. lipase-prot 2021-10 Yes [id number] Take 2 [facility] ease-amylas 1-11 capsules ity of e 00:00: by mouth [place] 36,000-114, 00 with meals Me dical 000- and 1 with Branch 180,000 each unit CpDR snack. lipase-prot 2021-10 Yes [id number] Take 2 [facility] ease-amylas 1-11 capsules ity of e 00:00: by mouth [place] 36,000-114, 00 with meals Me dical 000- and 1 with Branch 180,000 each unit CpDR snack. lipase-prot 2021-10 Yes [id number] Take 2 [facility] ease-amylas 1-11 capsules ity of e 00:00: by mouth [place] 36,000-114, 00 with meals Me dical 000- and 1 with Branch 180,000 each unit CpDR snack. lipase-prot 2021-10 Yes [id number] Take 2 [facility] ease-amylas 1-11 capsules ity of e 00:00: by mouth [place] 36,000-114, 00 with meals Me dical 000- and 1 with Branch 180,000 each unit CpDR snack. lipase-prot 2021-10 Yes [id number] Take 2 [facility] ease-amylas 1-11 capsules ity of e 00:00: by mouth [place] 36,000-114, 00 with meals Me dical 000- and 1 with Branch 180,000 each unit CpDR snack. lipase-prot 2021-10 Yes [id number] Take 2 [facility] ease-amylas 1-11 capsules ity of e 00:00: by mouth [place] 36,000-114, 00 with meals Me dical 000- and 1 with Branch 180,000 each unit CpDR snack. lipase-prot 2021-10 Yes [id number] Take 2 [facility] ease-amylas 1-11 capsules ity of e 00:00: by mouth [place] 36,000-114, 00 with meals Me dical 000- and 1 with Branch 180,000 each unit CpDR snack. lipase-prot 2021-10 Yes [id number] Take 2 [facility] ease-amylas 1-11 capsules ity of e 00:00: by mouth [place] 36,000-114, 00 with meals Me dical 000- and 1 with Branch 180,000 each unit CpDR snack. lipase-prot 2021-10 Yes [id number] Take 2 [facility] ease-amylas 1-11 capsules ity of e 00:00: by mouth [place] 36,000-114, 00 with meals Me dical 000- and 1 with Branch 180,000 each unit CpDR snack. lipase-prot 2021-10 Yes [id number] Take 2 [facility] ease-amylas 1-11 capsules ity of e 00:00: by mouth [place] 36,000-114, 00 with meals Me dical 000- and 1 with Branch 180,000 each unit CpDR snack. lipase-prot 2021-10 Yes [id number] Take 2 [facility]-amylas 1-11 capsules ity of e 00:00: by mouth [place] 36,000-114, 00 with meals Me dical 000- and 1 with Branch 180,000 each unit CpDR snack. lipase-prot 2021-10 Yes [id number] Take 2 [facility] ease-amylas 1-11 capsules ity of e 00:00: by mouth [place] 36,000-114, 00 with meals Me dical 000- and 1 with Branch 180,000 each unit CpDR snack. lipase-prot 2021-10 Yes [id number] Take 2 [facility] ease-amylas 1-11 capsules ity of e 00:00: by mouth [place] 36,000-114, 00 with meals Me dical 000- and 1 with Branch 180,000 each unit CpDR snack. lipase-prot 2021-10 Yes [id number] Take 2 [facility] ease-amylas 1-11 capsules ity of e 00:00: by mouth [place] 36,000-114, 00 with meals Me dical 000- and 1 with Branch 180,000 each unit CpDR snack. lipase-prot 2021-10 Yes [id number] Take 2 [facility] ease-amylas 1-11 capsules ity of e 00:00: by mouth [place] 36,000-114, 00 with meals Me dical 000- and 1 with Branch 180,000 each unit CpDR snack. lipase-prot 2021-10 Yes [id number] Take 2 [facility] ease-amylas 1-11 capsules ity of e 00:00: by mouth [place] 36,000-114, 00 with meals Me dical 000- and 1 with Branch 180,000 each unit CpDR snack. lipase-prot 2021-10 Yes [id number] Take 2 [facility]-amylas 1-11 capsules ity of e 00:00: by mouth [place] 36,000-114, 00 with meals Me dical 000- and 1 with Branch 180,000 each unit CpDR snack. lipase-prot 2021-10 Yes [id number] Take 2 [facility] ease-amylas 1-11 capsules ity of e 00:00: by mouth [place] 36,000-114, 00 with meals Me dical 000- and 1 with Branch 180,000 each unit CpDR snack. lipase-prot 2021-10 Yes [id number] Take 2 [facility] ease-amylas 1-11 capsules ity of e 00:00: by mouth [place] 36,000-114, 00 with meals Me dical 000- and 1 with Branch 180,000 each unit CpDR snack. lipase-prot 2021-10 Yes [id number] Take 2 [facility] ease-amylas 1-11 capsules ity of e 00:00: by mouth [place] 36,000-114, 00 with meals Me dical 000- and 1 with Branch 180,000 each unit CpDR snack. lipase-prot 2021-10 Yes [id number] Take 2 [facility] ease-amylas 1-11 capsules ity of e 00:00: by mouth [place] 36,000-114, 00 with meals Me dical 000- and 1 with Branch 180,000 each unit CpDR snack. lipase-prot 2021-10 Yes [id number] Take 2 [facility] ease-amylas 1-11 capsules ity of e 00:00: by mouth [place] 36,000-114, 00 with meals Me dical 000- and 1 with Branch 180,000 each unit CpDR snack. lipase-prot 2021-10 Yes [id number] Take 2 [facility] ease-amylas 1-11 capsules ity of e 00:00: by mouth [place] 36,000-114, 00 with meals Me dical 000- and 1 with Branch 180,000 each unit CpDR snack. lipase-prot 2021-10 Yes [id number] Take 2 [facility] ease-amylas 1-11 capsules ity of e 00:00: by mouth [place] 36,000-114, 00 with meals Me dical 000- and 1 with Branch 180,000 each unit CpDR snack. lipase-prot 2021-10 Yes [id number] Take 2 [facility] ease-amylas 1-11 capsules ity of e 00:00: by mouth [place] 36,000-114, 00 with meals Me dical 000- and 1 with Branch 180,000 each unit CpDR snack. lipase-prot 2021-10 Yes [id number] Take 2 [facility] ease-amylas 1-11 capsules ity of e 00:00: by mouth [place] 36,000-114, 00 with meals Me dical 000- and 1 with Branch 180,000 each unit CpDR snack. lipase-prot 2021-10 Yes [id number] Take 2 [facility] ease-amylas 1-11 capsules ity of e 00:00: by mouth [place] 36,000-114, 00 with meals Me dical 000- and 1 with Branch 180,000 each unit CpDR snack. lipase-prot 2021-10 Yes [id number] Take 2 [facility] ease-amylas 1-11 capsules ity [...] 20 MG 10:54: daily. Medical tablet 28 Center doxepin 2021-10 Yes 10mg QD Take [address] [facility] (SINEquan) 0-25 by mouth [facility] 10 MG 10:54: nightly. Medical capsule 28 Center gabapentin 2021-10 Yes 100mg Q.[id number] Take [address] [facility] (NEURONTIN) 0-25 [id number] mg by [facility] 100 MG 10:54: 3D mouth 3 Medical capsule 28 (three) Center times daily. lipase/prot 2021-10 Yes Take by [facility]as 0-25 [facility] (CREON 10:54: 6,000 TID Medi vidal ORAL) 28 . Center metoclopram 2021-10 Yes 10mg Take [address] [facility] miracle HCl 0-25 by mouth 4 [facility] (REGLAN) 10 10:54: (four) Medi vidal MG tablet 28 times Center daily as needed for Nausea. b complex 2021-10 Yes 1{tbl} QD Take [address] [facility] vitamins 0-25 tablet by [facility] tablet 10:54: mouth Medical 28 daily. Center docusate 2021-10 Yes 100mg Take 100 [facility] [...] ity of capsule 16:31: 00:00 mouth 3 [place] 25 :00 (three) Medical times Branch daily. gabapentin 2021-10- No 100mg Take 100 [facility] 100 mg 0-18 10-18 mg by ity of capsule 16:31: 00:00 mouth 3 [place] 25 :00 (three) Medical times Branch daily. proMETHazin 2021-10 Yes [id number] 25mg Take 1 [facility] e 25 mg 0-18 tablet by ity of tablet 00:00: mouth at [place] 00 bedtime as Medical needed for Branch Nausea and Vomiting (N/V). B 2021-10 Yes [id number] 1{tbl} Take 1 [facility] ers Complex-Fol 0-18 tablet by ity of ic Acid (B 00:00: mouth [place] COMPLEX 1, 00 daily. Medical WITH FOLIC Branch ACID,) 0.4 mg Tab carvediloL 2021-10 Yes [id number] 6.25mg Take 1 [facility] 6.25 mg 0-18 tablet by ity of tablet 00:00: mouth in [place] 00 the Medical morning Branch and 1 tablet in the evening. Take with meals. docusate 2021-10 Yes [id number] 100mg Take 1 [facility] (COLACE) 0-18 capsule by ity o f 100 mg 00:00: mouth 2 [place] capsule 00 (two) Medical times Branch daily as needed for Constipati on. gabapentin 2021-10 Yes [id number] 100mg Take 1 [facility] 100 mg 0-18 capsule by ity of capsule 00:00: mouth in [place] 00 the Medical morning Branch and 1 capsule at noon and 1 capsule in the evening. traMADoL 50 2021-10 Yes [id number] 50mg Take 1 [facility] ers mg tablet 0-18 tablet by ity o f 00:00: mouth [place] 00 every 6 Medical (six) Branch hours as needed for Pain (scale 7-10) (Cannot take NSAIDS). Indication s: chronic pain proMETHazin 2021-10 Yes [id number] 25mg Take 1 [facility] e 25 mg 0-18 tablet by ity of tablet 00:00: mouth at [place] 00 bedtime as Medical needed for Branch Nausea and Vomiting (N/V). B 2021-10 Yes [id number] 1{tbl} Take 1 [facility] ers Complex-Fol 0-18 tablet by ity of ic Acid (B 00:00: mouth [place] COMPLEX 1, 00 daily. Medical WITH FOLIC Branch ACID,) 0.4 mg Tab carvediloL 2021-10 Yes [id number] 6.25mg Take 1 [facility] 6.25 mg 0-18 tablet by ity of tablet 00:00: mouth in [place] 00 the Medical morning Branch and 1 tablet in the evening. Take with meals. docusate 2021-10 Yes [id number] 100mg Take 1 [facility] (COLACE) 0-18 capsule by ity o f 100 mg 00:00: mouth 2 [place] capsule 00 (two) Medical times Branch daily as needed for Constipati on. gabapentin 2021-10 Yes [id number] 100mg Take 1 [facility] 100 mg 0-18 capsule by ity of capsule 00:00: mouth in [place] 00 the Medical morning Branch and 1 capsule at noon and 1 capsule in the evening. traMADoL 50 2021-10 Yes [id number] 50mg Take 1 [facility] ers mg tablet 0-18 tablet by ity o f 00:00: mouth [place] 00 every 6 Medical (six) Branch hours as needed for Pain (scale 7-10) (Cannot take NSAIDS). Indication s: chronic pain proMETHazin 2021-10 Yes [id number] 25mg Take 1 [facility] e 25 mg 0-18 tablet by ity of tablet 00:00: mouth at [place] 00 bedtime as Medical needed for Branch Nausea and Vomiting (N/V). B 2021-10 Yes [id number] 1{tbl} Take 1 [facility] ers Complex-Fol 0-18 tablet by ity of ic Acid (B 00:00: mouth [place] COMPLEX 1, 00 daily. Medical WITH FOLIC Branch ACID,) 0.4 mg Tab carvediloL 2021-10 Yes [id number] 6.25mg Take 1 [facility] 6.25 mg 0-18 tablet by ity of tablet 00:00: mouth in [place] 00 the Medical morning Branch and 1 tablet in the evening. Take with meals. docusate 2021-10 Yes [id number] 100mg Take 1 [facility] (COLACE) 0-18 capsule by ity o f 100 mg 00:00: mouth 2 [place] capsule 00 (two) Medical times Branch daily as needed for Constipati on. gabapentin 2021-10 Yes [id number] 100mg Take 1 [facility] 100 mg 0-18 capsule by ity of capsule 00:00: mouth in [place] 00 the Medical morning Branch and 1 capsule at noon and 1 capsule in the evening. traMADoL 50 2021-10 Yes [id number] 50mg Take 1 [facility] ers mg tablet 0-18 tablet by ity o f 00:00: mouth [place] 00 every 6 Medical (six) Branch hours as needed for Pain (scale 7-10) (Cannot take NSAIDS). Indication s: chronic pain proMETHazin 2021-10 Yes [id number] 25mg Take 1 [facility] e 25 mg 0-18 tablet by ity of tablet 00:00: mouth at [place] 00 bedtime as Medical needed for Branch Nausea and Vomiting (N/V). B 2021-10 Yes [id number] 1{tbl} Take 1 [facility] ers Complex-Fol 0-18 tablet by ity of ic Acid (B 00:00: mouth [place] COMPLEX 1, 00 daily. Medical WITH FOLIC Branch ACID,) 0.4 mg Tab carvediloL 2021-10 Yes [id number] 6.25mg Take 1 [facility] 6.25 mg 0-18 tablet by ity of tablet 00:00: mouth in [place] 00 the Medical morning Branch and 1 tablet in the evening. Take with meals. docusate 2021-10 Yes [id number] 100mg Take 1 [facility] (COLACE) 0-18 capsule by ity o f 100 mg 00:00: mouth 2 [place] capsule 00 (two) Medical times Branch daily as needed for Constipati on. gabapentin 2021-10 Yes [id number] 100mg Take 1 [facility] 100 mg 0-18 [...] Indication s: chronic pain proMETHazin 2021-10 Yes [id number] 25mg Take 1 [facility] e 25 mg 0-18 tablet by ity of tablet 00:00: mouth at [place] 00 bedtime as Medical needed for Branch Nausea and Vomiting (N/V). B 2021-10 Yes [id number] 1{tbl} Take 1 [facility] ers Complex-Fol 0-18 tablet by ity of ic Acid (B 00:00: mouth [place] COMPLEX 1, 00 daily. Medical WITH FOLIC Branch ACID,) 0.4 mg Tab carvediloL 2021-10 Yes [id number] 6.25mg Take 1 [facility] 6.25 mg 0-18 tablet by ity of tablet 00:00: mouth in [place] 00 the Medical morning Branch and 1 tablet in the evening. Take with meals. docusate 2021-10 Yes [id number] 100mg Take 1 [facility] (COLACE) 0-18 capsule by ity o f 100 mg 00:00: mouth 2 [place] capsule 00 (two) Medical times Branch daily as needed for Constipati on. gabapentin 2021-10 Yes [id number] 100mg Take 1 [facility] 100 mg 0-18 capsule by ity of capsule 00:00: mouth in [place] 00 the Medical morning Branch and 1 capsule at noon and 1 capsule in the evening. traMADoL 50 2021-10 Yes [id number] 50mg Take 1 [facility] ers mg tablet 0-18 tablet by ity o f 00:00: mouth [place] 00 every 6 Medical (six) Branch hours as needed for Pain (scale 7-10) (Cannot take NSAIDS). Indication s: chronic pain proMETHazin 2021-10 Yes [id number] 25mg Take 1 [facility] e 25 mg 0-18 tablet by ity of tablet 00:00: mouth at [place] 00 bedtime as Medical needed for Branch Nausea and Vomiting (N/V). B 2021-10 Yes [id number] 1{tbl} Take 1 [facility] ers Complex-Fol 0-18 tablet by ity of ic Acid (B 00:00: mouth [place] COMPLEX 1, 00 daily. Medical WITH FOLIC Branch ACID,) 0.4 mg Tab carvediloL 2021-10 Yes [id number] 6.25mg Take 1 [facility] 6.25 mg 0-18 tablet by ity of tablet 00:00: mouth in [place] 00 the Medical morning Branch and 1 tablet in the evening. Take with meals. docusate 2021-10 Yes [id number] 100mg Take 1 [facility] (COLACE) 0-18 capsule by ity o f 100 mg 00:00: mouth 2 [place] capsule 00 (two) Medical times Branch daily as needed for Constipati on. gabapentin 2021-10 Yes [id number] 100mg Take 1 [facility] 100 mg 0-18 capsule by ity of capsule 00:00: mouth in [place] 00 the Medical morning Branch and 1 capsule at noon and 1 capsule in the evening. traMADoL 50 2021-10 Yes [id number] 50mg Take 1 [facility] ers mg tablet 0-18 tablet by ity o f 00:00: mouth [place] 00 every 6 Medical (six) Branch hours as needed for Pain (scale 7-10) (Cannot take NSAIDS). Indication s: chronic pain proMETHazin 2021-10 Yes [id number] 25mg Take 1 [facility] e 25 mg 0-18 tablet by ity of tablet 00:00: mouth at [place] 00 bedtime as Medical needed for Branch Nausea and Vomiting (N/V). B 2021-10 Yes [id number] 1{tbl} Take 1 [facility] ers Complex-Fol 0-18 tablet by ity of ic Acid (B 00:00: mouth [place] COMPLEX 1, 00 daily. Medical WITH FOLIC Branch ACID,) 0.4 mg Tab carvediloL 2021-10 Yes [id number] 6.25mg Take 1 [facility] 6.25 mg 0-18 tablet by ity of tablet 00:00: mouth in [place] 00 the Medical morning Branch and 1 tablet in the evening. Take with meals. docusate 2021-10 Yes [id number] 100mg Take 1 [facility] (COLACE) 0-18 capsule by ity o f 100 mg 00:00: mouth 2 [place] capsule 00 (two) Medical times Branch daily as needed for Constipati on. gabapentin 2021-10 Yes [id number] 100mg Take 1 [facility] 100 mg 0-18 [...] Indication s: chronic pain proMETHazin 2021-10 Yes [id number] 25mg Take 1 [facility] e 25 mg 0-18 tablet by ity of tablet 00:00: mouth at [place] 00 bedtime as Medical needed for Branch Nausea and Vomiting (N/V). B 2021-10 Yes [id number] 1{tbl} Take 1 [facility] ers Complex-Fol 0-18 tablet by ity of ic Acid (B 00:00: mouth [place] COMPLEX 1, 00 daily. Medical WITH FOLIC Branch ACID,) 0.4 mg Tab carvediloL 2021-10 Yes [id number] 6.25mg Take 1 [facility] 6.25 mg 0-18 tablet by ity of tablet 00:00: mouth in [place] 00 the Medical morning Branch and 1 tablet in the evening. Take with meals. docusate 2021-10 Yes [id number] 100mg Take 1 [facility] (COLACE) 0-18 capsule by ity o f 100 mg 00:00: mouth 2 [place] capsule 00 (two) Medical times Branch daily as needed for Constipati on. gabapentin 2021-10 Yes [id number] 100mg Take 1 [facility] 100 mg 0-18 capsule by ity of capsule 00:00: mouth in [place] 00 the Medical morning Branch and 1 capsule at noon and 1 capsule in the evening. traMADoL 50 2021-10 Yes [id number] 50mg Take 1 [facility] ers mg tablet 0-18 tablet by ity o f 00:00: mouth [place] 00 every 6 Medical (six) Branch hours as needed for Pain (scale 7-10) (Cannot take NSAIDS). Indication s: chronic pain proMETHazin 2021-10 Yes [id number] 25mg Take 1 [facility] e 25 mg 0-18 tablet by ity of tablet 00:00: mouth at [place] 00 bedtime as Medical needed for Branch Nausea and Vomiting (N/V). B 2021-10 Yes [id number] 1{tbl} Take 1 [facility] ers Complex-Fol 0-18 tablet by ity of ic Acid (B 00:00: mouth [place] COMPLEX 1, 00 daily. Medical WITH FOLIC Branch ACID,) 0.4 mg Tab carvediloL 2021-10 Yes [id number] 6.25mg Take 1 [facility] 6.25 mg 0-18 tablet by ity of tablet 00:00: mouth in [place] 00 the Medical morning Branch and 1 tablet in the evening. Take with meals. docusate 2021-10 Yes [id number] 100mg Take 1 [facility] (COLACE) 0-18 capsule by ity o f 100 mg 00:00: mouth 2 [place] capsule 00 (two) Medical times Branch daily as needed for Constipati on. gabapentin 2021-10 Yes [id number] 100mg Take 1 [facility] 100 mg 0-18 capsule by ity of capsule 00:00: mouth in [place] 00 the Medical morning Branch and 1 capsule at noon and 1 capsule in the evening. traMADoL 50 2021-10 Yes [id number] 50mg Take 1 [facility] ers mg tablet 0-18 tablet by ity o f 00:00: mouth [place] 00 every 6 Medical (six) Branch hours as needed for Pain (scale 7-10) (Cannot take NSAIDS). Indication s: chronic pain proMETHazin 2021-10 Yes [id number] 25mg Take 1 [facility] e 25 mg 0-18 tablet by ity of tablet 00:00: mouth at [place] 00 bedtime as Medical needed for Branch Nausea and Vomiting (N/V). B 2021-10 Yes [id number] 1{tbl} Take 1 [facility] ers Complex-Fol 0-18 tablet by ity of ic Acid (B 00:00: mouth [place] COMPLEX 1, 00 daily. Medical WITH FOLIC Branch ACID,) 0.4 mg Tab docusate 2021-10 Yes [id number] 100mg Take 1 [facility] (COLACE) 0-18 capsule by ity o f 100 mg 00:00: mouth 2 [place] capsule 00 (two) Medical times Branch daily as needed for Constipati on. gabapentin 2021-10 Yes [id number] 100mg Take 1 [facility] 100 mg 0-18 capsule by ity of capsule 00:00: mouth in [place] 00 the Medical morning Branch and 1 capsule at noon and 1 capsule in the evening. proMETHazin 2021-10 Yes [id number] 25mg Take 1 [facility] e 25 mg 0-18 tablet by ity of tablet 00:00: mouth at [place] 00 bedtime as Medical needed for Branch Nausea and Vomiting (N/V). B 2021-10 Yes [id number] 1{tbl} Take 1 [facility] ers Complex-Fol 0-18 tablet by ity of ic Acid (B 00:00: mouth [place] COMPLEX 1, 00 daily. Medical WITH FOLIC Branch ACID,) 0.4 mg Tab docusate 2021-10 Yes [id number] 100mg Take 1 [facility] (COLACE) 0-18 capsule by ity o f 100 mg 00:00: mouth 2 [place] capsule 00 (two) Medical times Branch daily as needed for Constipati on. gabapentin 2021-10 Yes [id number] 100mg Take 1 [facility] 100 [facility] 0-18 capsule by [facility] capsule 00:00: mouth in [place] 00 the Medical morning Branch and 1 capsule at noon and 1 capsule in the evening. proMETHazin 2021-10 Yes [id number] 25mg Take 1 [facility] 25 mg 0-18 tablet by [facility] tablet 00:00: mouth at [place] 00 bedtime as Medical needed for Branch Nausea and Vomiting (N/V). B 2021-10 Yes [id number] 1{tbl} Take 1 [facility] 0-18 tablet by [facility] ic Acid (B 00:00: mouth [place] COMPLEX 1, 00 daily. Medical WITH FOLIC Branch ACID,) 0.4 mg Tab docusate 2021-10 Yes [id number] 100mg Take 1 [facility] (COLACE) 0-18 capsule by [facility] o f 100 mg 00:00: mouth 2 [place] capsule 00 (two) Medical times Branch daily as needed for Constipati on. gabapentin 2021-10 Yes [id number] 100mg Take 1 [facility] 100 mg 0-18 capsule by [facility] capsule 00:00: mouth in [place] 00 the Medical morning Branch and 1 capsule at noon and 1 capsule in the evening. proMETHazin 2021-10 Yes [id number] 25mg Take 1 [facility] 25 mg 0-18 tablet by [facility] tablet 00:00: mouth at [place] 00 bedtime as Medical needed for Branch Nausea and Vomiting (N/V). B 2021-10 Yes [id number] 1{tbl} Take 1 [facility] 0-18 tablet by [facility] ic Acid (B 00:00: mouth [place] COMPLEX 1, 00 daily. Medical WITH FOLIC Branch ACID,) 0.4 mg Tab docusate 2021-10 Yes [id number] 100mg Take 1 [facility] (COLACE) 0-18 capsule by [facility] o f 100 mg 00:00: mouth 2 [place] capsule 00 (two) Medical times Branch daily as needed for Constipati on. gabapentin 2021-10 Yes [id number] 100mg Take 1 [facility] 100 mg 0-18 capsule by [facility] capsule 00:00: mouth in [place] 00 the Medical morning Branch and 1 capsule at noon and 1 capsule in the evening. proMETHazin 2021-10 Yes [id number] 25mg Take 1 [facility] 25 mg 0-18 tablet by [facility] tablet 00:00: mouth at [place] 00 bedtime as Medical needed for Branch Nausea and Vomiting (N/V). B 2021-10 Yes [id number] 1{tbl} Take 1 [facility] 0-18 tablet by [facility] ic Acid (B 00:00: mouth [place] COMPLEX 1, 00 daily. Medical WITH FOLIC Branch ACID,) 0.4 mg Tab docusate 2021-10 Yes [id number] 100mg Take 1 [facility] (COLACE) 0-18 capsule by [facility] o f 100 mg 00:00: mouth 2 [place] capsule 00 (two) Medical times Branch daily as needed for Constipati on. gabapentin 2021-10 Yes [id number] 100mg Take 1 [facility] 100 mg 0-18 capsule by [facility] capsule 00:00: mouth in [place] 00 the Medical morning Branch and 1 capsule at noon and 1 capsule in the evening. proMETHazin 2021-10 Yes [id number] 25mg Take 1 [facility] 25 mg 0-18 tablet by [facility] tablet 00:00: mouth at [place] 00 bedtime as Medical needed for Branch Nausea and Vomiting (N/V). B 2021-10 Yes [id number] 1{tbl} Take 1 [facility] 0-18 tablet by [facility] ic Acid (B 00:00: mouth [place] COMPLEX 1, 00 daily. Medical WITH FOLIC Branch ACID,) 0.4 mg Tab docusate 2021-10 Yes [id number] 100mg Take 1 [facility] (COLACE) 0-18 capsule by [facility] o f 100 mg 00:00: mouth 2 [place] capsule 00 (two) Medical times Branch daily as needed for Constipati on. gabapentin 2021-10 Yes [id number] 100mg Take 1 [facility] 100 mg 0-18 capsule by [facility] capsule 00:00: mouth in [place] 00 the Medical morning Branch and 1 capsule at noon and 1 capsule in the evening. proMETHazin 2021-10 Yes [id number] 25mg Take 1 [facility] 25 mg 0-18 tablet by [facility] tablet 00:00: mouth at [place] 00 bedtime as Medical needed for Branch Nausea and Vomiting (N/V). B 2021-10 Yes [id number] 1{tbl} Take 1 [facility] 0-18 tablet by [facility] ic Acid (B 00:00: mouth [place] COMPLEX 1, 00 daily. Medical WITH FOLIC Branch ACID,) 0.4 mg Tab docusate 2021-10 Yes [id number] 100mg Take 1 [facility] (COLACE) 0-18 capsule by [facility] o f 100 mg 00:00: mouth 2 [place] capsule 00 (two) Medical times Branch daily as needed for Constipati on. gabapentin 2021-10 Yes [id number] 100mg Take 1 [facility] 100 mg 0-18 capsule by [facility] capsule 00:00: mouth in [place] 00 the Medical morning Branch and 1 capsule at noon and 1 capsule in the evening. proMETHazin 2021-10 Yes [id number] 25mg Take 1 [facility] 25 mg 0-18 tablet by [facility] tablet 00:00: mouth at [place] 00 bedtime as Medical needed for Branch Nausea and Vomiting (N/V). B 2021-10 Yes [id number] 1{tbl} Take 1 [facility] 0-18 tablet by [facility] ic Acid (B 00:00: mouth [place] COMPLEX 1, 00 daily. Medical WITH FOLIC Branch ACID,) 0.4 mg Tab docusate 2021-10 Yes [id number] 100mg Take 1 [facility] (COLACE) 0-18 capsule by [facility] o f 100 mg 00:00: mouth 2 [place] capsule 00 (two) Medical times Branch daily as needed for Constipati on. gabapentin 2021-10 Yes [id number] 100mg Take 1 [facility] 100 mg 0-18 capsule by [facility] capsule 00:00: mouth in [place] 00 the Medical morning Branch and 1 capsule at noon and 1 capsule in the evening. proMETHazin 2021-10 Yes [id number] 25mg Take 1 [facility] 25 mg 0-18 tablet by [facility] tablet 00:00: mouth at [place] 00 bedtime as Medical needed for Branch Nausea and Vomiting (N/V). B 2021-10 Yes [id number] 1{tbl} Take 1 [facility] 0-18 tablet by [facility] ic Acid (B 00:00: mouth [place] COMPLEX 1, 00 daily. Medical WITH FOLIC Branch ACID,) 0.4 mg Tab docusate 2021-10 Yes [id number] 100mg Take 1 [facility] (COLACE) 0-18 capsule by [facility] o f 100 mg 00:00: mouth 2 [place] capsule 00 (two) Medical times Branch daily as needed for Constipati on. proMETHazin 2021-10 Yes [id number] 25mg Take 1 [facility] 25 mg 0-18 tablet by [facility] tablet 00:00: mouth at [place] 00 bedtime as Medical needed for Branch Nausea and Vomiting (N/V). B 2021-10 Yes [id number] 1{tbl} Take 1 [facility] 0-18 tablet by [facility] ic Acid (B 00:00: mouth [place] COMPLEX 1, 00 daily. Medical WITH FOLIC Branch ACID,) 0.4 mg Tab docusate 2021-10 Yes [id number] 100mg Take 1 [facility] (COLACE) 0-18 capsule by [facility] o f 100 mg 00:00: mouth 2 [place] capsule 00 (two) Medical times Branch daily as needed for Constipati on. proMETHazin 2021-10 Yes [id number] 25mg Take 1 [facility] 25 mg 0-18 tablet by [facility] tablet 00:00: mouth at [place] 00 bedtime as Medical needed for Branch Nausea and Vomiting (N/V). B 2021-10 Yes [id number] 1{tbl} Take 1 [facility] 0-18 tablet by [facility] ic Acid (B 00:00: mouth [place] COMPLEX 1, daily. Medical WITH FOLIC Branch ACID,) 0.4 mg Tab docusate 2021-10 Yes [id number] 100mg Take 1 [facility] (COLACE) 0-18 capsule by [facility] o f 100 mg 00:00: mouth 2 [place] capsule 00 (two) Medical times Branch daily as needed for Constipati on. proMETHazin 2021-10 Yes [id number] 25mg Take 1 [facility] 25 mg 0-18 tablet by [facility] tablet 00:00: mouth at [place] 00 bedtime as Medical needed for Branch Nausea and Vomiting (N/V). 2021-10 Yes [id number] 1{tbl} Take 1 [facility] 0-18 tablet by [facility] ic Acid (B 00:00: mouth [place] COMPLEX 1, 00 daily. Medical WITH FOLIC Branch ACID,) 0.4 mg Tab docusate 2021-10 Yes [id number] 100mg Take 1 [facility] (COLACE) 0-18 capsule by [facility] o f 100 mg 00:00: mouth 2 [place] capsule 00 (two) Medical times Branch daily as needed for Constipati on. proMETHazin 2021-10 Yes [id number] 25mg Take 1 [facility] 25 mg 0-18 tablet by [facility] tablet 00:00: mouth at [place] 00 bedtime as Medical needed for Branch Nausea and Vomiting (N/V). 2021-10 Yes [id number] 1{tbl} Take 1 [facility] 0-18 tablet by [facility] ic Acid (B 00:00: mouth [place] COMPLEX 1, 00 daily. Medical WITH FOLIC Branch ACID,) 0.4 mg Tab docusate 2021-10 Yes [id number] 100mg Take 1 [facility] (COLACE) 0-18 capsule by [facility] o f 100 mg 00:00: mouth 2 [place] capsule 00 (two) Medical times Branch daily as needed for Constipati on. proMETHazin 2021-10 Yes [id number] 25mg Take 1 [facility] 25 mg 0-18 tablet by [facility] tablet 00:00: mouth at [place] 00 bedtime as Medical needed for Branch Nausea and Vomiting (N/V). B 2021-10 Yes [id number] 1{tbl} Take 1 [facility] 0-18 tablet by [facility] ic Acid (B 00:00: mouth [place] COMPLEX 1, daily. Medical WITH FOLIC Branch ACID,) 0.4 mg Tab docusate 2021-10 Yes [id number] 100mg Take 1 [facility] (COLACE) 0-18 capsule by [facility] o f 100 mg 00:00: mouth 2 [place] capsule 00 (two) Medical times Branch daily as needed for Constipati on. proMETHazin 2021-10 Yes [id number] 25mg Take 1 [facility] 25 mg 0-18 tablet by [facility] tablet 00:00: mouth at [place] 00 bedtime as Medical needed for Branch Nausea and Vomiting (N/V). B 2021-10 Yes [id number] 1{tbl} Take 1 [facility] 0-18 tablet by [facility] ic Acid (B 00:00: mouth [place] COMPLEX 1, daily. Medical WITH FOLIC Branch ACID,) 0.4 mg Tab docusate 2021-10 Yes [id number] 100mg Take 1 [facility] (COLACE) 0-18 capsule by [facility] o f 100 mg 00:00: mouth 2 [place] capsule 00 (two) Medical times Branch daily as needed for Constipati on. proMETHazin 2021-10 Yes [id number] 25mg Take 1 [facility] 25 mg 0-18 tablet by [facility] tablet 00:00: mouth at [place] 00 bedtime as Medical needed for Branch Nausea and Vomiting (N/V). 2021-10 Yes [id number] 1{tbl} Take 1 [facility] 0-18 tablet by [facility] ic Acid (B 00:00: mouth [place] COMPLEX 1, daily. Medical WITH FOLIC Branch ACID,) 0.4 mg Tab docusate 2021-10 Yes [id number] 100mg Take 1 [facility] (COLACE) 0-18 capsule by [facility] o f 100 mg 00:00: mouth 2 [place] capsule 00 (two) Medical times Branch daily as needed for Constipati on. proMETHazin 2021-10 Yes [id number] 25mg Take 1 [facility] 25 mg 0-18 tablet by [facility] tablet 00:00: mouth at [place] 00 bedtime as Medical needed for Branch Nausea and Vomiting (N/V). B 2021-10 Yes [id number] 1{tbl} Take 1 [facility] 0-18 tablet by [facility] ic Acid (B 00:00: mouth [place] COMPLEX 1, daily. Medical WITH FOLIC Branch ACID,) 0.4 mg Tab docusate 2021-10 Yes [id number] 100mg Take 1 [facility] (COLACE) 0-18 capsule by [facility] o f 100 mg 00:00: mouth 2 [place] capsule 00 (two) Medical times Branch daily as needed for Constipati on. proMETHazin 2021-10 Yes [id number] 25mg Take 1 [facility] 25 mg 0-18 tablet by [facility] tablet 00:00: mouth at [place] 00 bedtime as Medical needed for Branch Nausea and Vomiting (N/V). 2021-10 Yes [id number] 1{tbl} Take 1 [facility] 0-18 tablet by [facility] ic Acid (B 00:00: mouth [place] COMPLEX 1, daily. Medical WITH FOLIC Branch ACID,) 0.4 mg Tab docusate 2021-10 Yes [id number] 100mg Take 1 [facility] (COLACE) 0-18 capsule by [facility] o f 100 mg 00:00: mouth 2 [place] capsule 00 (two) Medical times Branch daily as needed for Constipati on. proMETHazin 2021-10 Yes [id number] 25mg Take 1 [facility] 25 mg 0-18 tablet by [facility] tablet 00:00: mouth at [place] 00 bedtime as Medical needed for Branch Nausea and Vomiting (N/V). 2021-10 Yes [id number] 1{tbl} Take 1 [facility] 0-18 tablet by [facility] ic Acid (B 00:00: mouth [place] COMPLEX 1, daily. Medical WITH FOLIC Branch ACID,) 0.4 mg Tab docusate 2021-10 Yes [id number] 100mg Take 1 [facility] (COLACE) 0-18 capsule by [facility] o f 100 mg 00:00: mouth 2 [place] capsule 00 (two) Medical times Branch daily as needed for Constipati on. proMETHazin 2021-10 Yes [id number] 25mg Take 1 [facility] 25 mg 0-18 tablet by [facility] of tablet 00:00: mouth at [place] 00 bedtime as Medical needed for Branch Nausea and Vomiting (N/V). B 2021-10 Yes [id number] 1{tbl} Take 1 [facility] 0-18 tablet by [facility] ic Acid (B 00:00: mouth [place] COMPLEX 1, 00 daily. Medical WITH FOLIC Branch ACID,) 0.4 mg Tab docusate 2021-10 Yes [id number] 100mg Take 1 [facility] (COLACE) 0-18 capsule by [facility] o f 100 mg 00:00: mouth 2 [place] capsule 00 (two) Medical times Branch daily as needed for Constipati on. proMETHazin 2021-10 Yes [id number] 25mg Take 1 [facility] 25 mg 0-18 tablet by [facility] of tablet 00:00: mouth at [place] 00 bedtime as Medical needed for Branch Nausea and Vomiting (N/V). 2021-10 Yes [id number] 1{tbl} Take 1 [facility] 0-18 tablet by [facility] ic Acid (B 00:00: mouth [place] COMPLEX 1, 00 daily. Medical WITH FOLIC Branch ACID,) 0.4 mg Tab docusate 2021-10 Yes [id number] 100mg Take 1 [facility] (COLACE) 0-18 capsule by [facility] o f 100 mg 00:00: mouth 2 [place] capsule 00 (two) Medical times Branch daily as needed for Constipati on. proMETHazin 2021-10 Yes [id number] 25mg Take 1 [facility] 25 mg 0-18 tablet by [facility] of tablet 00:00: mouth at [place] 00 bedtime as Medical needed for Branch Nausea and Vomiting (N/V). 2021-10 Yes [id number] 1{tbl} Take 1 [facility] 0-18 tablet by [facility] ic Acid (B 00:00: mouth [place] COMPLEX 1, 00 daily. Medical WITH FOLIC Branch ACID,) 0.4 mg Tab docusate 2021-10 Yes [id number] 100mg Take 1 [facility] (COLACE) 0-18 capsule by [facility] o f 100 mg 00:00: mouth 2 [place] capsule 00 (two) Medical times Branch daily as needed for Constipati on. proMETHazin 2021-10 Yes [id number] 25mg Take 1 [facility] 25 mg 0-18 tablet by [facility] of tablet 00:00: mouth at [place] 00 bedtime as Medical needed for Branch Nausea and Vomiting (N/V). 2021-10 Yes [id number] 1{tbl} Take 1 [facility] 0-18 tablet by [facility] ic Acid (B 00:00: mouth [place] COMPLEX 1, 00 daily. Medical WITH FOLIC Branch ACID,) 0.4 mg Tab docusate 2021-10 Yes [id number] 100mg Take 1 [facility] (COLACE) 0-18 capsule by [facility] o f 100 mg 00:00: mouth 2 [place] capsule 00 (two) Medical times Branch daily as needed for Constipati on. proMETHazin 2021-10 Yes [id number] 25mg Take 1 [facility] 25 mg 0-18 tablet by [facility] of tablet 00:00: mouth at [place] 00 bedtime as Medical needed for Branch Nausea and Vomiting (N/V). 2021-10 Yes [id number] 1{tbl} Take 1 [facility] 0-18 tablet by [facility] ic Acid (B 00:00: mouth [place] COMPLEX 1, 00 daily. Medical WITH FOLIC Branch ACID,) 0.4 mg Tab docusate 2021-10 Yes [id number] 100mg Take 1 [facility] (COLACE) 0-18 capsule by [facility] o f 100 mg 00:00: mouth 2 [place] capsule 00 (two) Medical times Branch daily as needed for Constipati on. proMETHazin 2021-10 Yes [id number] 25mg Take 1 [facility] 25 mg 0-18 tablet by [facility] of tablet 00:00: mouth at [place] 00 bedtime as Medical needed for Branch Nausea and Vomiting (N/V). 2021-10 Yes [id number] 1{tbl} Take 1 [facility] 0-18 tablet by [facility] ic Acid (B 00:00: mouth [place] COMPLEX 1, 00 daily. Medical WITH FOLIC Branch ACID,) 0.4 mg Tab docusate 2021-10 Yes [id number] 100mg Take 1 [facility] (COLACE) 0-18 capsule by [facility] o f 100 mg 00:00: mouth 2 [place] capsule 00 (two) Medical times Branch daily as needed for Constipati on. proMETHazin 2021-10 Yes [id number] 25mg Take 1 [facility] 25 mg 0-18 tablet by [facility] of tablet 00:00: mouth at [place] 00 bedtime as Medical needed for Branch Nausea and Vomiting (N/V). 2021-10 Yes [id number] 1{tbl} Take 1 [facility] 0-18 tablet by [facility] of ic Acid (B 00:00: mouth [place] COMPLEX 1, 00 daily. Medical WITH FOLIC Branch ACID,) 0.4 mg Tab docusate 2021-10 Yes [id number] 100mg Take 1 [facility] (COLACE) 0-18 capsule by [facility] o f 100 mg 00:00: mouth 2 [place] capsule 00 (two) Medical times Branch daily as needed for Constipati on. proMETHazin 2021-10 Yes [id number] 25mg Take 1 [facility] 25 mg 0-18 tablet by [facility] of tablet 00:00: mouth at [place] 00 bedtime as Medical needed for Branch Nausea and Vomiting (N/V). 2021-10 Yes [id number] 1{tbl} Take 1 [facility] 0-18 tablet by [facility] of ic Acid (B 00:00: mouth [place] COMPLEX 1, 00 daily. Medical WITH FOLIC Branch ACID,) 0.4 mg Tab docusate 2021-10 Yes [id number] 100mg Take 1 [facility] (COLACE) 0-18 capsule by [facility] o f 100 mg 00:00: mouth 2 [place] capsule 00 (two) Medical times Branch daily as needed for Constipati on. proMETHazin 2021-10 Yes [id number] 25mg Take 1 [facility] 25 mg 0-18 tablet by [facility] of tablet 00:00: mouth at [place] 00 bedtime as Medical needed for Branch Nausea and Vomiting (N/V). 2021-10 Yes [id number] 1{tbl} Take 1 [facility] 0-18 tablet by [facility] of ic Acid (B 00:00: mouth [place] COMPLEX 1, 00 daily. Medical WITH FOLIC Branch ACID,) 0.4 mg Tab docusate 2021-10 Yes [id number] 100mg Take 1 [facility] (COLACE) 0-18 capsule by [facility] o f 100 mg 00:00: mouth 2 [place] capsule 00 (two) Medical times Branch daily as needed for Constipati on. proMETHazin 2021-10 Yes [id number] 25mg Take 1 [facility] 25 mg 0-18 tablet by [facility] of tablet 00:00: mouth at [place] 00 bedtime as Medical needed for Branch Nausea and Vomiting (N/V). B 2021-10 Yes [id number] 1{tbl} Take 1 [facility] 0-18 tablet by [facility] of ic Acid (B 00:00: mouth [place] COMPLEX 1, 00 daily. Medical WITH FOLIC Branch ACID,) 0.4 mg Tab docusate 2021-10 Yes [id number] 100mg Take 1 [facility] (COLACE) 0-18 capsule by [facility] o f 100 mg 00:00: mouth 2 [place] capsule 00 (two) Medical times Branch daily as needed for Constipati on. proMETHazin 2021-10 Yes [id number] 25mg Take 1 [facility] 25 mg 0-18 tablet by [facility] of tablet 00:00: mouth at [place] 00 bedtime as Medical needed for Branch Nausea and Vomiting (N/V). 2021-10 Yes [id number] 1{tbl} Take 1 [facility] 0-18 tablet by [facility] of ic Acid (B 00:00: mouth [place] COMPLEX 1, 00 daily. Medical WITH FOLIC Branch ACID,) 0.4 mg Tab docusate 2021-10 Yes [id number] 100mg Take 1 [facility] (COLACE) 0-18 capsule by [facility] o f 100 mg 00:00: mouth 2 [place] capsule 00 (two) Medical times Branch daily as needed for Constipati on. proMETHazin 2021-10 Yes [id number] 25mg Take 1 [facility] 25 mg 0-18 tablet by [facility] of tablet 00:00: mouth at [place] 00 bedtime as Medical needed for Branch Nausea and Vomiting (N/V). 2021-10 Yes [id number] 1{tbl} Take 1 [facility] 0-18 tablet by [facility] of ic Acid (B 00:00: mouth [place] COMPLEX 1, 00 daily. Medical WITH FOLIC Branch ACID,) 0.4 mg Tab docusate 2021-10 Yes [id number] 100mg Take 1 [facility] (COLACE) 0-18 capsule by [facility] o f 100 mg 00:00: mouth 2 [place] capsule 00 (two) Medical times Branch daily as needed for Constipati on. proMETHazin 2021-10 Yes [id number] 25mg Take 1 [facility] 25 mg 0-18 tablet by [facility] of tablet 00:00: mouth at [place] 00 bedtime as Medical needed for Branch Nausea and Vomiting (N/V). B 2021-10 Yes [id number] 1{tbl} Take 1 [facility] 0-18 tablet by [facility] ic Acid (B 00:00: mouth [place] COMPLEX 1, daily. Medical WITH FOLIC Branch ACID,) 0.4 mg Tab docusate 2021-10 Yes [id number] 100mg Take 1 [facility] (COLACE) 0-18 capsule by [facility] o f 100 mg 00:00: mouth 2 [place] capsule 00 (two) Medical times Branch daily as needed for Constipati on. proMETHazin 2021-10 Yes [id number] 25mg Take 1 [facility] 25 mg 0-18 tablet by [facility] of tablet 00:00: mouth at [place] 00 bedtime as Medical needed for Branch Nausea and Vomiting (N/V). 2021-10 Yes [id number] 1{tbl} Take 1 [facility] 0-18 tablet by [facility] of ic Acid (B 00:00: mouth [place] COMPLEX 1, daily. Medical WITH FOLIC Branch ACID,) 0.4 mg Tab docusate 2021-10 Yes [id number] 100mg Take 1 [facility] (COLACE) 0-18 capsule by [facility] o f 100 mg 00:00: mouth 2 [place] capsule 00 (two) Medical times Branch daily as needed for Constipati on. proMETHazin 2021-10 Yes [id number] 25mg Take 1 [facility] 25 mg 0-18 tablet by [facility] of tablet 00:00: mouth at [place] 00 bedtime as Medical needed for Branch Nausea and Vomiting (N/V). 2021-10 Yes [id number] 1{tbl} Take 1 [facility] 0-18 tablet by [facility] ic Acid (B 00:00: mouth [place] COMPLEX 1, daily. Medical WITH FOLIC Branch ACID,) 0.4 mg Tab docusate 2021-10 Yes [id number] 100mg Take 1 [facility] (COLACE) 0-18 capsule by [facility] o f 100 mg 00:00: mouth 2 [place] capsule 00 (two) Medical times Branch daily as needed for Constipati on. proMETHazin 2021-10 Yes [id number] 25mg Take 1 [facility] 25 mg 0-18 tablet by [facility] of tablet 00:00: mouth at [place] 00 bedtime as Medical needed for Branch Nausea and Vomiting (N/V). B 2021-10 Yes [id number] 1{tbl} Take 1 [facility] 0-18 tablet by [facility] ic Acid (B 00:00: mouth [place] COMPLEX 1, 00 daily. Medical WITH FOLIC Branch ACID,) 0.4 mg Tab docusate 2021-10 Yes [id number] 100mg Take 1 [facility] (COLACE) 0-18 capsule by [facility] o f 100 mg 00:00: mouth 2 [place] capsule 00 (two) Medical times Branch daily as needed for Constipati on. proMETHazin 2021-10 Yes [id number] 25mg Take 1 [facility] 25 mg 0-18 tablet by [facility] of tablet 00:00: mouth at [place] 00 bedtime as Medical needed for Branch Nausea and Vomiting (N/V). 2021-10 Yes [id number] 1{tbl} Take 1 [facility] 0-18 tablet by [facility] of ic Acid (B 00:00: mouth [place] COMPLEX 1, 00 daily. Medical WITH FOLIC Branch ACID,) 0.4 mg Tab docusate 2021-10 Yes [id number] 100mg Take 1 [facility] (COLACE) 0-18 capsule by [facility] o f 100 mg 00:00: mouth 2 [place] capsule 00 (two) Medical times Branch daily as needed for Constipati on. proMETHazin 2021-10 Yes [id number] 25mg Take 1 [facility] 25 mg 0-18 tablet by [facility] of tablet 00:00: mouth at [place] 00 bedtime as Medical needed for Branch Nausea and Vomiting (N/V). 2021-10 Yes [id number] 1{tbl} Take 1 [facility] 0-18 tablet by [facility] ic Acid (B 00:00: mouth [place] COMPLEX 1, 00 daily. Medical WITH FOLIC Branch ACID,) 0.4 mg Tab docusate 2021-10 Yes [id number] 100mg Take 1 [facility] (COLACE) 0-18 capsule by [facility] o f 100 mg 00:00: mouth 2 [place] capsule 00 (two) Medical times Branch daily as needed for Constipati on. proMETHazin 2021-10 Yes [id number] 25mg Take 1 [facility] 25 mg 0-18 tablet by [facility] of tablet 00:00: mouth at [place] 00 bedtime as Medical needed for Branch Nausea and Vomiting (N/V). 2021-10 Yes [id number] 1{tbl} Take 1 [facility] 0-18 tablet by [facility] of ic Acid (B 00:00: mouth [place] COMPLEX 1, 00 daily. Medical WITH FOLIC Branch ACID,) 0.4 mg Tab docusate 2021-10 Yes [id number] 100mg Take 1 [facility] (COLACE) 0-18 capsule by [facility] o f 100 mg 00:00: mouth 2 [place] capsule 00 (two) Medical times Branch daily as needed for Constipati on. proMETHazin 2021-10 Yes [id number] 25mg Take 1 [facility] 25 mg 0-18 tablet by [facility] of tablet 00:00: mouth at [place] 00 bedtime as Medical needed for Branch Nausea and Vomiting (N/V). 2021-10 Yes [id number] 1{tbl} Take 1 [facility] 0-18 tablet by [facility] of ic Acid (B 00:00: mouth [place] COMPLEX 1, 00 daily. Medical WITH FOLIC Branch ACID,) 0.4 mg Tab docusate 2021-10 Yes [id number] 100mg Take 1 [facility] (COLACE) 0-18 capsule by [facility] o f 100 mg 00:00: mouth 2 [place] capsule 00 (two) Medical times Branch daily as needed for Constipati on. proMETHazin 2021-10 Yes [id number] 25mg Take 1 [facility] 25 mg 0-18 tablet by [facility] of tablet 00:00: mouth at [place] 00 bedtime as Medical needed for Branch Nausea and Vomiting (N/V). 2021-10 Yes [id number] 1{tbl} Take 1 [facility] 0-18 tablet by [facility] of ic Acid (B 00:00: mouth [place] COMPLEX 1, 00 daily. Medical WITH FOLIC Branch ACID,) 0.4 mg Tab docusate 2021-10 Yes [id number] 100mg Take 1 [facility] (COLACE) 0-18 capsule by [facility] o f 100 mg 00:00: mouth 2 [place] capsule 00 (two) Medical times Branch daily as needed for Constipati on. proMETHazin 2021-10 Yes [id number] 25mg Take 1 [facility] 25 mg 0-18 tablet by [facility] of tablet 00:00: mouth at [place] 00 bedtime as Medical needed for Branch Nausea and Vomiting (N/V). 2021-10 Yes [id number] 1{tbl} Take 1 [facility] 0-18 tablet by [facility] of ic Acid (B 00:00: mouth [place] COMPLEX 1, 00 daily. Medical WITH FOLIC Branch ACID,) 0.4 mg Tab docusate 2021-10 Yes [id number] 100mg Take 1 [facility] (COLACE) 0-18 capsule by [facility] o f 100 mg 00:00: mouth 2 [place] capsule 00 (two) Medical times Branch daily as needed for Constipati on. proMETHazin 2021-10 Yes [id number] 25mg Take 1 [facility] 25 mg 0-18 tablet by [facility] of tablet 00:00: mouth at [place] 00 bedtime as Medical needed for Branch Nausea and Vomiting (N/V). 2021-10 Yes [id number] 1{tbl} Take 1 [facility] 0-18 tablet by [facility] of ic Acid (B 00:00: mouth [place] COMPLEX 1, 00 daily. Medical WITH FOLIC Branch ACID,) 0.4 mg Tab docusate 2021-10 Yes [id number] 100mg Take 1 [facility] (COLACE) 0-18 capsule by [facility] o f 100 mg 00:00: mouth 2 [place] capsule 00 (two) Medical times Branch daily as needed for Constipati on. proMETHazin 2021-10 Yes [id number] 25mg Take 1 [facility] 25 mg 0-18 tablet by [facility] of tablet 00:00: mouth at [place] 00 bedtime as Medical needed for Branch Nausea and Vomiting (N/V). 2021-10 Yes [id number] 1{tbl} Take 1 [facility] 0-18 tablet by [facility] of ic Acid (B 00:00: mouth [place] COMPLEX 1, 00 daily. Medical WITH FOLIC Branch ACID,) 0.4 mg Tab docusate 2021-10 Yes [id number] 100mg Take 1 [facility] (COLACE) 0-18 capsule by [facility] o f 100 mg 00:00: mouth 2 [place] capsule 00 (two) Medical times Branch daily as needed for Constipati on. gabapentin 2021-10- No [id number] 100mg Take 1 [facility] 100 mg 0-18 11-28 capsule by [facility] capsule 00:00: 00:00 mouth in [place] 00 :00 the Medical morning Branch and 1 capsule at noon and 1 capsule in the evening. gabapentin 2021-10- No [id number] 100mg Take 1 [facility] 100 mg 0-18 11-28 capsule by [facility] capsule 00:00: 00:00 mouth in [place] 00 :00 the Medical morning Branch and 1 capsule at noon and 1 capsule in the evening. gabapentin 2021-10- No [id number] 100mg Take 1 [facility] 100 mg 0-18 11-28 capsule by ity of capsule 00:00: 00:00 mouth in [place] 00 :00 the Medical morning Branch and 1 capsule at noon and 1 capsule in the evening. carvediloL 2021-10- No [id number] 6.25mg Take 1 [facility] 6.25 mg 0-18 11-18 tablet by ity of tablet 00:00: 00:00 mouth in [place] 00 :00 the Medical morning Branch and 1 tablet in the evening. Take with meals. traMADoL 50 2021-10- No 2745 50mg Take 1 [facility] vers mg tablet 0-18 11-18 tablet by ity of 00:00: 00:00 mouth [place] 00 :00 every 6 Medical (six) Branch hours as needed for Pain (scale 7-10) (Cannot take NSAIDS). Indication s: chronic pain carvediloL 2021-10- No [id number] 6.25mg Take 1 [facility] 6.25 mg 0-18 11-18 tablet by ity of tablet 00:00: 00:00 mouth in [place] 00 :00 the Medical morning Branch and 1 tablet in the evening. Take with meals. traMADoL 50 2021-10- No 2745 50mg Take 1 [facility] vers mg tablet 0-18 11-18 tablet by ity of 00:00: 00:00 mouth [place] 00 :00 every 6 Medical (six) Branch hours as needed for Pain (scale 7-10) (Cannot take NSAIDS). Indication s: chronic pain carvediloL 2021-10- No [id number] 6.25mg Take 1 [facility] 6.25 mg 0-18 11-18 tablet by ity of tablet 00:00: 00:00 mouth in [place] 00 :00 the Medical morning Branch and 1 tablet in the evening. Take with meals. traMADoL 50 2021-10 No 2745 50mg Take 1 [facility] vers mg tablet 0-18 11-18 tablet by ity of 00:00: 00:00 mouth [place] 00 :00 every 6 Medical (six) Branch hours as needed for Pain (scale 7-10) (Cannot take NSAIDS). Indication s: chronic pain carvediloL 2021-10 No [id number] 6.25mg Take 1 [facility] 6.25 mg 0-18 11-18 tablet by ity of tablet 00:00: 00:00 mouth in [place] 00 :00 the Medical morning Branch and 1 tablet in the evening. Take with meals. traMADoL 50 2021-10- No 2745 50mg Take 1 [facility] vers mg tablet 0-18 11-18 tablet by ity of 00:00: 00:00 mouth [place] 00 :00 every 6 Medical (six) Branch hours as needed for Pain (scale 7-10) (Cannot take NSAIDS). Indication s: chronic pain carvediloL 2021-10- No [id number] 6.25mg Take 1 [facility] 6.25 mg 0-18 11-18 tablet by ity of tablet 00:00: 00:00 mouth in [place] 00 :00 the Medical morning Branch and 1 tablet in the evening. Take with meals. traMADoL 50 2021-10 No 2745 50mg Take 1 [facility] vers [...] mouth Medica l 16 :00 daily . [place] milk 2021- No 150mg QD Take [address] [facility] thistle 175 9-28 09-28 mg by [facility] tablet 14:40: 00:00 mouth Medica l 16 :00 daily . [place] milk 2021- No 150mg QD Take [address] [facility] thistle 175 9-28 09-28 mg by [facility] tablet 14:40: 00:00 mouth Medica l 16 :00 daily . [place] telmisartan 2021- No 1{tbl} QD Take [address] -hydrochlor 9-27 09-27 tablet by Dayana kes othiazide 15:36: 00:00 mouth Medica l (MICARDIS 29 :00 daily. [place] HCT) 80-25 mg per tablet telmisartan 2021- No 1{tbl} QD Take [address] -hydrochlor 9-27 09-27 tablet by Dayana kes othiazide 15:36: 00:00 mouth Medica l (MICARDIS 29 :00 daily. [place] HCT) 80-25 mg per tablet telmisartan 2021- No 1{tbl} QD Take [address] -hydrochlor 9-27 09-27 tablet by Dayana kes othiazide 15:36: 00:00 mouth Medica l (MICARDIS 29 :00 daily. [place] HCT) 80-25 mg per tablet haloperidoL 2021-2021- No .5mg Q.5D Take 0.[address] (HALDOL) 9-27 09-27 mg [facility] 0.5 MG 15:06: 00:00 mouth 2 Medical tablet 28 :00 (two) Center times daily. haloperidoL 2021- No .5mg Q.5D Take 0.[address] (HALDOL) 9-27 09-27 mg by [facility] 0.5 MG 15:06: 00:00 mouth 2 Medical tablet 28 :00 (two) Center times daily. haloperidoL 2021-2021- No .5mg Q.5D Take 0.[address] (HALDOL) 9-27 09-27 mg by [facility] 0.5 MG 15:06: 00:00 mouth 2 Medical tablet 28 :00 (two) Center times daily. metoclopram 0 Yes 10mg Take [address] [facility] miracle HCl 07-17 by mouth 4 [facility] (REGLAN) 10 14:28: (four) Medi vidal MG tablet 31 times Center daily as needed for Nausea. omeprazole 2021-0 Yes 20mg Q.5D Take [address] [facility] (PriLOSEC) 07-17 by mouth 2 [facility]leigh es 20 MG 14:28: (two) Medical capsule 02 times Center daily. meclizine 2021-0 Yes 25mg Take [address] [facility] [address] [facility] (ANTIVERT) 07-17 by mouth 3 [facility] es 25 MG 14:28: (three) Medical tablet 02 times Center daily as needed for Dizziness. rosuvastati 0 Yes 20mg QD Take [address] [facility] (CRESTOR) 07-17 by mouth Luke s 20 MG 14:28: daily. Medical tablet 02 Center doxepin 0 Yes 10mg QD Take [address] [facility] (SINEquan) 07-17 by mouth [facility] 10 MG 14:28: nightly. Medical capsule 02 Center gabapentin 0 Yes 100mg Q.[id number] Take [address] [facility] (NEURONTIN) 07-17 [id number] mg by L ukes 100 MG 14:28: 3D mouth 3 Medical capsule 02 (three) Center times daily. lipase/prot 0 Yes Take by [facility] ease/amylas 07-17 mouth [facility] (CREON 14:28: 6,000 TID Medi vidal ORAL) 02 . Center ferrous 0 Yes 325mg Take [address] [facility] sulfate 325 - tablet [facility] (65 FE) MG 00:00: (325 mg Medi vidal EC tablet 00 total) by Cente r mouth every other day. hydrOXYzine 0 Yes 25mg Take [address] [facility] (ATARAX) 25 -27 tablet (25 Dayana kes MG tablet 00:00: mg total) Med ical 00 by mouth Center as needed. ferrous 2021-0 Yes 325mg Take [address] [facility] sulfate 325 -27 tablet [facility] (65 FE) MG 00:00: (325 mg Medi vidal EC tablet 00 total) by Cente r mouth every other day. lactulose 2021-0 Yes Hepatic 20g Q.[id number] Take [address] [facility] (CHRONULAC) encephalopa [id number] mLs (20 g [facility] 10 gram/15 00:00: thy 3D total) by Me dical mL solution 00 mouth 3 Cente r (three) times daily. hydrOXYzine Yes 25mg Take [address] [facility] (ATARAX) 25 - tablet (25 Dayana kes MG tablet 00:00: mg total) Med ical 00 by mouth Center as needed. ferrous Yes 325mg Take [address] [facility] sulfate 325 07-17 tablet [facility] (65 FE) MG 00:00: (325 mg Medi vidal EC tablet 00 total) by Cente r mouth every other day. lactulose Yes Hepatic 20g Q.14901148 Take [address] [facility] (CHRONULAC) 07-17 encephalopa [id number] mLs (20 g [facility] 10 gram/15 00:00: thy 3D total) by Me dical mL solution 00 mouth 3 Cente r (three) times daily. lactulose 2022- No Hepatic 20g Q.[id number] Take [address] [facility] (CHRONULAC) 07-17 01-09 encephalopa [id number] mLs (20 g [facility] 10 gram/15 00:00: 00:00 thy 3D total) by edical mL solution 00 :00 mouth 3 Cente r (three) times daily. hydrOXYzine 2022- No 25mg Take [address] [facility] (ATARAX) 25 07-17 01-03 tablet (25 L ukes MG tablet 00:00: 00:00 mg total) Me dical 00 :00 by mouth Center as needed. telmisartan Yes [id number] 1{tbl} Take 1 [facility] -hydrochlor 9-26 tablet by [facility] [place] othiazide 00:00: [place] mg 00 the Medical per tablet morning. Bran h telmisartan 0 Yes [id number] 1{tbl} Take 1 [facility] -hydrochlor 9-26 tablet by [facility]y of othiazide 00:00: [place] 80[place]25 mg 00 the Medical per tablet morning. Bran h telmisartan 0 Yes [id number] 1{tbl} Take 1 [facility] -hydrochlor 9-26 tablet by ity of othiazide 00:00: mouth in [facility] [place] [facility] mg 00 the Medical per tablet morning. [facility] telmisartan Yes [id number] 1{tbl} Take 1 [facility] -hydrochlor 9-26 tablet by ity of othiazide 00:00: mouth in [facility] [place] [facility] 80-25 mg 00 the Medical per tablet morning. [facility] telmisartan Yes [id number] 1{tbl} Take 1 [facility] -hydrochlor 9-26 tablet by ity of othiazide 00:00: mouth in [facility] [place] [facility] 80-25 mg 00 the Medical per tablet morning. [facility] telmisartan Yes [id number] 1{tbl} Take 1 [facility] -hydrochlor 9-26 tablet by ity of othiazide 00:00: mouth in [facility] s 80-25 mg 00 the Medical per tablet morning. [facility] telmisartan 2021- No [id number] 1{tbl} Take 1 [facility] -hydrochlor 9-26 10-18 tablet by it y of othiazide 00:00: 00:00 mouth in [facility] [place] [facility] as 80-25 mg 00 :00 the Medical per tablet morning. [facility] telmisartan 2021- No [id number] 1{tbl} Take 1 [facility] -hydrochlor 9-26 10-18 tablet by it y of othiazide 00:00: 00:00 mouth in [facility] [place] [facility] as 80-25 mg 00 :00 the Medical per tablet morning. [facility] thiamine 2022- No 100mg QD Take 1 [facility] MG 07-03 tablet [facility] tablet 00:00: 23:59 (100 mg Medical 00 :00 total) by Center mouth daily. thiamine 2022- No 100mg QD Take 1 [facility] MG -07-03 tablet [facility] tablet 00:00: 23:59 (100 mg Medical 00 :00 total) by Center mouth daily. thiamine 2021-2022- No 100mg QD Take 1 [facility] MG 07-03 tablet [facility] tablet 00:00: 23:59 (100 mg Medical 00 :00 total) by Center mouth daily. thiamine 2022- No 100mg QD Take 1 [facility] MG 07-03 tablet [facility] tablet 00:00: 23:59 (100 mg Medical 00 :00 total) by Center mouth daily. multivitami 2021- No 1{tbl} QD Take [address] [facility] (FOLTX, 07-03 10-13 tablet by [facility]) 00:00: 23:59 mouth Medical 2-1.13- 00 :00 daily for Cente r mg Tab 30 days. tablet multivitami 2021- No 1{tbl} QD Take [address] [facility] (FOLTX, 9 10-13 tablet by [facility]) 00:00: 23:59 mouth Medical 2-1. 00 :00 daily for Cente r mg Tab 30 days. tablet multivitami 2021- No 1{tbl} QD Take [address] [facility] (FOLTX, 07-03- tablet by [facility]) 00:00: 23:59 mouth Medical 2-1. 00 :00 daily for Cente r mg Tab 30 days. tablet multivitami 2021- No 1{tbl} QD Take [address] [facility] (FOLTX, 07-03- tablet by [facility]) 00:00: 23:59 mouth Medical 2-1. 00 :00 daily for Cente r mg Tab 30 days. tablet omeprazole 0 Yes 20mg Q.5D Take [address] (PriLOSEC) 9-12 by mouth 2 [facility] es 20 MG 13:14: (two) Medical capsule 24 times Center daily. meclizine 2021-0 Yes 25mg Take [address] [facility] [address] [facility] (ANTIVERT) 9-12 by mouth 3 [facility] es 25 MG 13:14: (three) Medical tablet 24 times Center daily as needed for Dizziness. rosuvastati 2021-0 Yes 20mg QD Take [address] [facility] (CRESTOR) 9-12 by mouth Luke s 20 MG 13:14: daily. Medical tablet 24 Center doxepin 0 Yes 10mg QD Take [address] [facility] (SINEquan) 9-12 by mouth [facility] 10 MG 13:14: nightly. Medical capsule 24 Center telmisartan Yes 1{tbl} QD Take [address] -hydrochlor 07-02 tablet by Ashleigh martinez othiazide 13:14: mouth Medical (MICARDIS 24 daily. Center HCT) 80-25 mg per tablet gabapentin Yes 100mg Q.[id number] Take [address] [facility] (NEURONTIN) 07-02 [id number] mg by Cristopher ukes 100 MG 13:14: 3D mouth 3 Medical capsule 24 (three) Center times daily. lipase/prot Yes Take by [facility] ease/amylas 12 mouth [facility] (CREON 13:14: 6,000 TID Medi vidal ORAL) 24 . [place] haloperidoL Yes .5mg Q.5D Take 0.[address] [facility] (HALDOL) 07-02 mg by [facility] 0.5 MG 13:14: mouth [...] 40mg Q.5D Take [address] [facility] e 07-02- tablet (40 [facility] (PROTONIX) 00:00: 23:59 mg total) M edical 40 MG 00 :00 by mouth 2 Center tablet (two) times daily for 90 days. pantoprazol 2-0 2022- No 40mg Q.5D Take [address] [facility] e 07-02 tablet (40 [facility] (PROTONIX) 00:00: 00:00 mg total) M edical 40 MG 00 :00 by mouth 2 Center tablet (two) times daily for 90 days. pantoprazol 2-0 2022- No 40mg Q.5D Take [address] [facility] e 07-02 tablet (40 [facility] (PROTONIX) 00:00: 00:00 mg total) M edical 40 MG 00 :00 by mouth 2 Center tablet (two) times daily for 90 days. pantoprazol 2-0 2- No 40mg Q.5D Take [address] [facility] e 07-02 tablet (40 [facility] (PROTONIX) 00:00: 00:00 mg total) M edical 40 MG 00 :00 by mouth 2 Center tablet (two) times daily for 90 days. HYDROcodone 2021-0 2021- No 1{tbl} Take [address] -acetaminop -07-12 tablet by Dayana woodson (NORCO 00:00: 23:59 mouth Medic al 5-325) 00 :00 every 6 Center 5-325 mg (six) per tablet hours as needed for Pain for up to 10 days. Max Daily Amount: 4 tablets HYDROcodone 2021-0 2021- No 1{tbl} Take [address] -acetaminop 07-02 tablet by Dayana woodson (NORCO 00:00: 23:59 mouth Medic al 5-325) 00 :00 every 6 Center 5-325 mg (six) per tablet hours as needed for Pain for up to 10 days. Max Daily Amount: 4 tablets HYDROcodone 2021-0 2021- No 1{tbl} Take [address] -acetaminop -07-12 tablet by Dayana woodson (NORCO 00:00: 23:59 [...] Max Daily Amount: 4 tablets insulin Yes [id number] 54U inject 54 U nivers lispro, 8-22 Units ity of human, 00:00: under the [place] (HUMALOG 00 skin in Medical U-100 the Branch INSULIN) morning. 100 unit/mL injection telmisartan Yes [id number] 1{tbl} Take 1 [facility] -hydrochlor 8-22 tablet by ity of othiazide 00:00: [place] 80-25 mg 00 the Medical per tablet morning. Branc h insulin Yes [id number] 54U inject 54 U nivers lispro, 8-22 Units ity of human, 00:00: under the [place] (HUMALOG 00 skin in Medical U-100 the Branch INSULIN) morning. 100 unit/mL injection telmisartan Yes [id number] 1{tbl} Take 1 [facility] -hydrochlor 8-22 tablet by ity of othiazide 00:00: [place] 80-25 mg 00 the Medical per tablet morning. Branc h insulin Yes [id number] 54U inject 54 U nivers lispro, 8-22 Units ity of human, 00:00: under the [place] (HUMALOG 00 skin in Medical U-100 the Branch INSULIN) morning. 100 unit/mL injection insulin Yes [id number] 54U inject 54 U nivers lispro, 8-22 Units ity of human, 00:00: under the [place] (HUMALOG 00 skin in Medical U-100 the Branch INSULIN) morning. 100 unit/mL injection insulin Yes [id number] 54U inject 54 U nivers lispro, 8-22 Units ity of human, 00:00: under the [place] (HUMALOG 00 skin in Medical U-100 the Branch INSULIN) morning. 100 unit/mL injection insulin Yes [id number] 54U inject 54 U nivers lispro, 8-22 Units ity of human, 00:00: under the [place] (HUMALOG 00 skin in Medical U-100 the Branch INSULIN) morning. 100 unit/mL injection insulin 2021-0 Yes [id number] 54U inject 54 U nivers lispro, 8-22 Units ity of human, 00:00: under the [place] (HUMALOG 00 skin in Medical U-100 the Branch INSULIN) morning. 100 unit/mL injection insulin 2021-0 Yes [id number] 54U inject 54 U nivers lispro, 8-22 Units ity of human, 00:00: under the [place] (HUMALOG 00 skin in Medical U-100 the Branch INSULIN) morning. 100 unit/mL injection insulin 2021-0 Yes [id number] 54U inject 54 U nivers lispro, 8-22 Units ity of human, 00:00: under the [place] (HUMALOG 00 skin in Medical U-100 the Branch INSULIN) morning. 100 unit/mL injection insulin 0 Yes [id number] 54U inject 54 U nivers lispro, 8-22 Units ity of human, 00:00: under the [place] (HUMALOG 00 skin in Medical U-100 the Branch INSULIN) morning. 100 unit/mL injection insulin 0 Yes [id number] 54U inject 54 U nivers lispro, 8-22 Units ity of human, 00:00: under the [place] (HUMALOG 00 skin in Medical U-100 the Branch INSULIN) morning. 100 unit/mL injection insulin 2021-0 Yes [id number] 54U inject 54 U nivers lispro, 8-22 Units ity of human, 00:00: under the [place] (HUMALOG 00 skin in Medical U-100 the Branch INSULIN) morning. 100 unit/mL injection insulin 2021-0 Yes [id number] 54U inject 54 U nivers lispro, 8-22 Units ity of human, 00:00: under the [place] (HUMALOG 00 skin in Medical U-100 the Branch INSULIN) morning. 100 unit/mL injection insulin 2021-0 Yes [id number] 54U inject 54 U nivers lispro, 8-22 Units ity of human, 00:00: under the [place] (HUMALOG 00 skin in Medical U-100 the Branch INSULIN) morning. 100 unit/mL injection insulin 2021-0 Yes [id number] 54U inject 54 U nivers lispro, 8-22 Units ity of human, 00:00: under the [place] (HUMALOG 00 skin in Medical U-100 the Branch INSULIN) morning. 100 unit/mL injection insulin 2021-0 Yes [id number] 54U inject 54 U nivers lispro, 8-22 Units ity of human, 00:00: under the [place] (HUMALOG 00 skin in Medical U-100 the Branch INSULIN) morning. 100 unit/mL injection insulin 2021-0 Yes [id number] 54U inject 54 U nivers lispro, 8-22 Units ity of human, 00:00: under the [place] (HUMALOG 00 skin in Medical U-100 the Branch INSULIN) morning. 100 unit/mL injection insulin 2021-0 Yes [id number] 54U inject 54 U nivers lispro, 8-22 Units ity of human, 00:00: under the [place] (HUMALOG 00 skin in Medical U-100 the Branch INSULIN) morning. 100 unit/mL injection insulin 2021-0 Yes [id number] 54U inject 54 U nivers lispro, 8-22 Units ity of human, 00:00: under the [place] (HUMALOG 00 skin in Medical U-100 the Branch INSULIN) morning. 100 unit/mL injection insulin 2021-0 Yes [id number] 54U inject 54 U nivers lispro, 8-22 Units ity of human, 00:00: under the [place] (HUMALOG 00 skin in Medical U-100 the Branch INSULIN) morning. 100 unit/mL injection insulin 2021-0 Yes [id number] 54U inject 54 U nivers lispro, 8-22 Units ity of human, 00:00: under the [place] (HUMALOG 00 skin in Medical U-100 the Branch INSULIN) morning. 100 unit/mL injection insulin 2021-0 Yes [id number] 54U inject 54 U nivers lispro, 8-22 Units ity of human, 00:00: under the [place] (HUMALOG 00 skin in Medical U-100 the Branch INSULIN) morning. 100 unit/mL injection insulin 2021-0 Yes [id number] 54U inject 54 U nivers lispro, 8-22 Units ity of human, 00:00: under the [place] (HUMALOG 00 skin in Medical U-100 the Branch INSULIN) morning. 100 unit/mL injection insulin 2021-0 Yes [id number] 54U inject 54 U nivers lispro, 8-22 Units ity of human, 00:00: under the [place] (HUMALOG 00 skin in Medical U-100 the Branch INSULIN) morning. 100 unit/mL injection insulin 0 Yes [id number] 54U inject 54 U nivers lispro, 8-22 Units ity of human, 00:00: under the [place] (HUMALOG 00 skin in Medical U-100 the Branch INSULIN) morning. 100 unit/mL injection insulin 0 Yes [id number] 54U inject 54 U nivers lispro, 8-22 Units ity of human, 00:00: under the [place] (HUMALOG 00 skin in Medical U-100 the Branch INSULIN) morning. 100 unit/mL injection insulin 0 Yes [id number] 54U inject 54 U nivers lispro, 8-22 Units ity of human, 00:00: under the [place] (HUMALOG 00 skin in Medical U-100 the Branch INSULIN) morning. 100 unit/mL injection insulin 0 Yes [id number] 54U inject 54 U nivers lispro, 8-22 Units ity of human, 00:00: under the [place] (HUMALOG 00 skin in Medical U-100 the Branch INSULIN) morning. 100 unit/mL injection insulin 0 Yes [id number] 54U inject 54 U nivers lispro, 8-22 Units ity of human, 00:00: under the [place] (HUMALOG 00 skin in Medical U-100 the Branch INSULIN) morning. 100 unit/mL injection insulin 0 Yes [id number] 54U inject 54 U nivers lispro, 8-22 Units ity of human, 00:00: under the [place] (HUMALOG 00 skin in Medical U-100 the Branch INSULIN) morning. 100 unit/mL injection insulin 0 Yes [id number] 54U inject 54 U nivers lispro, 8-22 Units ity of human, 00:00: under the [place] (HUMALOG 00 skin in Medical U-100 the Branch INSULIN) morning. 100 unit/mL injection insulin 0 Yes [id number] 54U inject 54 U nivers lispro, 8-22 Units ity of human, 00:00: under the [place] (HUMALOG 00 skin in Medical U-100 the Branch INSULIN) morning. 100 unit/mL injection insulin 2022-0 Yes [id number] 54U inject 54 U nivers lispro, 8-22 Units ity of human, 00:00: under the [place] (HUMALOG 00 skin in Medical U-100 the Branch INSULIN) morning. 100 unit/mL injection insulin 2021-0 Yes [id number] 54U inject 54 U nivers lispro, 8-22 Units ity of human, 00:00: under the [place] (HUMALOG 00 skin in Medical U-100 the Branch INSULIN) morning. 100 unit/mL injection insulin 2021-0 Yes [id number] 54U inject 54 U nivers lispro, 8-22 Units ity of human, 00:00: under the [place] (HUMALOG 00 skin in Medical U-100 the Branch INSULIN) morning. 100 unit/mL injection insulin 2021-0 Yes [id number] 54U inject 54 U nivers lispro, 8-22 Units ity of human, 00:00: under the [place] (HUMALOG 00 skin in Medical U-100 the Branch INSULIN) morning. 100 unit/mL injection insulin 2021-0 Yes [id number] 54U inject 54 U nivers lispro, 8-22 Units ity of human, 00:00: under the [place] (HUMALOG 00 skin in Medical U-100 the Branch INSULIN) morning. 100 unit/mL injection insulin 2021-0 Yes [id number] 54U inject 54 U nivers lispro, 8-22 Units ity of human, 00:00: under the [place] (HUMALOG 00 skin in Medical U-100 the Branch INSULIN) morning. 100 unit/mL injection insulin 2021-0 Yes [id number] 54U inject 54 U nivers lispro, 8-22 Units ity of human, 00:00: under the [place] (HUMALOG 00 skin in Medical U-100 the Branch INSULIN) morning. 100 unit/mL injection insulin 2021-0 Yes [id number] 54U inject 54 U nivers lispro, 8-22 Units ity of human, 00:00: under the [place] (HUMALOG 00 skin in Medical U-100 the Branch INSULIN) morning. 100 unit/mL injection insulin 2021-0 Yes [id number] 54U inject 54 U nivers lispro, 8-22 Units ity of human, 00:00: under the [place] (HUMALOG 00 skin in Medical U-100 the Branch INSULIN) morning. 100 unit/mL injection insulin Yes [id number] 54U inject 54 U nivers lispro, 8-22 Units ity of human, 00:00: under the [place] (HUMALOG 00 skin in Medical U-100 the Branch INSULIN) morning. 100 unit/mL injection insulin Yes [id number] 54U inject 54 U nivers lispro, 8-22 Units ity of human, 00:00: under the [place] (HUMALOG 00 skin in Medical U-100 the Branch INSULIN) morning. 100 unit/mL injection insulin Yes [id number] 54U inject 54 U nivers lispro, 8-22 Units ity of human, 00:00: under the [place] (HUMALOG 00 skin in Medical U-100 the Branch INSULIN) morning. 100 unit/mL injection insulin Yes [id number] 54U inject 54 U nivers lispro, 8-22 Units ity of human, 00:00: under the [place] (HUMALOG 00 skin in Medical U-100 the Branch INSULIN) morning. 100 unit/mL injection insulin 2022- No [id number] 54U inject 54 [facility] lispro, 06-11-23 Units ity of human, 00:00: 00:00 under the [place] (HUMALOG 00 :00 skin in Medical U-100 the Branch INSULIN) morning. 100 unit/mL injection insulin 2022- No [id number] 54U inject 54 [facility] lispro, 06-11-23 Units ity of human, 00:00: 00:00 under the [place] (HUMALOG 00 :00 skin in Medical U-100 the Branch INSULIN) morning. 100 unit/mL injection telmisartan 2021- No [id number] 1{tbl} Take 1 [facility] -hydrochlor 06-11 tablet by it y of othiazide 00:00: 00:00 mouth in [place] 80-25 mg 00 :00 the Medical per tablet morning. Branc h insulin 2021- No [id number] 54U inject 54 [facility] lispro, 06-11-22 Units ity of human, 00:00: 00:00 under the [place] (HUMALOG 00 :00 skin in Medical U-100 the Branch INSULIN) morning. 100 unit/mL injection insulin 2021- No [id number] 54U inject 54 [facility] lispro, 7 08-01 Units ity of human, 00:00: 00:00 under the [place] (HUMALOG 00 :00 skin in Medical U-100 [facility] Branch INSULIN) morning 100 unit/mL and 54 injection Units at noon and 54 Units in the evening. inject with meals. Blood-Gluco 2021-0 Yes [id number] Use as Univers se Sensor 7-26 directed ity of (DEXCOM G6 00:00: [place] SENSOR) 00 Medical [facility] Branch Blood-Gluco 2021-0 Yes [id number] Use as Univers se Sensor 7-26 directed ity of (DEXCOM G6 00:00: [place] SENSOR) 00 Medical [facility] Branch Blood-Gluco 2021-0 Yes [id number] Use as Univers se Sensor 7-26 directed ity of (DEXCOM G6 00:00: [place] SENSOR) 00 Medical [facility] Blood-Gluco 0 Yes [id number] Use as Univers se Sensor 7-26 directed ity of (DEXCOM G6 00:00: [place] SENSOR) 00 Medical [facility] Branch Blood-Gluco 2021-0 Yes [id number] Use as Univers se Sensor 7-26 directed ity of (DEXCOM G6 00:00: [place] SENSOR) 00 Medical [facility] Branch Blood-Gluco 2021-0 Yes [id number] Use as Univers se Sensor 7-26 directed ity of (DEXCOM G6 00:00: [place] SENSOR) 00 Medical [facility] Branch Blood-Gluco 2021-0 Yes [id number] Use as Univers se Sensor 7-26 directed ity of (DEXCOM G6 00:00: [place] SENSOR) 00 [facility] Branch Blood-Gluco 2021-0 Yes [id number] Use as Univers se Sensor 7-26 directed ity of (DEXCOM G6 00:00: [place] SENSOR) 00 Medical [facility] Branch Blood-Gluco 2021-0 Yes [id number] Use as Univers se Sensor 7-26 directed ity of (DEXCOM G6 00:00: [place] SENSOR) 00 Medical [facility] Branch Blood-Gluco 2021-0 Yes [id number] Use as Univers se Sensor 7-26 directed ity of (DEXCOM G6 00:00: [place] SENSOR) 00 Medical [facility] Branch Blood-Gluco 2021-0 Yes [id number] Use as Univers se Sensor 7-26 directed ity of (DEXCOM G6 00:00: [place] SENSOR) 00 Medical [facility] Blood-Gluco 2021-0 Yes [id number] Use as Univers se Sensor 7-26 directed ity of (DEXCOM G6 00:00: [place] SENSOR) 00 Medical [place] [facility] Blood-Gluco 2021-0 Yes [id number] Use as Univers se Sensor 7-26 directed ity of (DEXCOM G6 00:00: [place] SENSOR) 00 Medical [place] [facility] Blood-Gluco 2021-0 Yes [id number] Use as Univers se Sensor 7-26 directed ity of (DEXCOM G6 00:00: [place] SENSOR) 00 Medical [place] [facility] Blood-Gluco 2021-0 Yes [id number] Use as Univers se Sensor 7-26 directed ity of (DEXCOM G6 00:00: [place] SENSOR) 00 Medical [place] [facility] Blood-Gluco 2021-0 Yes [id number] Use as Univers se Sensor 7-26 directed ity of (DEXCOM G6 00:00: [place] SENSOR) 00 Medical [place] [facility] Blood-Gluco 2021-0 Yes [id number] Use as Univers se Sensor 7-26 directed ity of (DEXCOM G6 00:00: [place] [facility]) 00 [facility] [place] [facility] Blood-Gluco 2021-0 Yes [id number] Use as [facility] se Sensor 7-26 directed ity of (DEXCOM G6 00:00: [place] [facility]) 00 [facility] [place] [facility] Blood-Gluco 2021-0 Yes [id number] Use as [facility] se Sensor 7-26 directed ity of (DEXCOM G6 00:00: [place] [facility]) 00 [facility] [place] [facility] Blood-Gluco 2021-0 Yes [id number] Use as [facility] se Sensor 7-26 directed ity of (DEXCOM G6 00:00: [place] [facility]) 00 [facility] [place] [facility] Blood-Gluco 2021-0 Yes [id number] Use as [facility] se Sensor 7-26 directed ity of (DEXCOM G6 00:00: [place] [facility]) 00 [facility] [place] [facility] Blood-Gluco 2021-0 Yes [id number] Use as [facility] se Sensor 7-26 directed ity of (DEXCOM G6 00:00: [place] [facility]) 00 [facility] [place] [facility] Blood-Gluco 2021-0 Yes [id number] Use as [facility] se Sensor 7-26 directed ity of (DEXCOM G6 00:00: [place] [facility]) 00 [facility] [facility] Blood-Gluco 2021-0 Yes [id number] Use as [facility] se Sensor 7-26 directed ity of (DEXCOM G6 00:00: [place] [facility]) 00 [facility] [facility] Blood-Gluco 202-0 Yes [id number] Use as [facility] se Sensor 7-26 directed ity of (DEXCOM G6 00:00: [place] [facility]) 00 [facility] [facility] Blood-Gluco 2021-0 Yes [id number] Use as [facility] se Sensor 7-26 directed ity of (DEXCOM G6 00:00: [place] [facility]) 00 [facility] [facility] Blood-Gluco 2021-0 Yes [id number] Use as [facility] se Sensor 7-26 directed ity of (DEXCOM G6 00:00: [place] [facility]) 00 [facility] [place] [facility] Blood-Gluco 2021-0 Yes [id number] Use as [facility] se Sensor 7-26 directed ity of (DEXCOM G6 00:00: [place] [facility]) 00 [facility] [place] [facility] Blood-Gluco 2021-0 Yes [id number] Use as [facility] se Sensor 7-26 directed ity of (DEXCOM G6 00:00: [place] [facility]) 00 [facility] [place] [facility] Blood-Gluco 2021-0 Yes [id number] Use as [facility] se Sensor 7-26 directed ity of (DEXCOM G6 00:00: [place] [facility]) 00 [facility] [place] [facility] Blood-Gluco 2021-0 Yes [id number] Use as [facility] se Sensor 7-26 directed ity of (DEXCOM G6 00:00: [place] [facility]) 00 [facility] [place] [facility] Blood-Gluco 2021-0 Yes [id number] Use as [facility] se Sensor 7-26 directed ity of (DEXCOM G6 00:00: [place] [facility]) 00 [facility] [place] [facility] Blood-Gluco 2021-0 Yes [id number] Use as [facility] se Sensor 7-26 directed ity of (DEXCOM G6 00:00: [place] [facility]) 00 [facility] [place] [facility] Blood-Gluco 2021-0 Yes [id number] Use as [facility] se Sensor 7-26 directed ity of (DEXCOM G6 00:00: [place] [facility]) 00 [facility] [place] [facility] Blood-Gluco 202-0 Yes [id number] Use as [facility] se Sensor 7-26 directed ity of (DEXCOM G6 00:00: [place] [facility]) 00 [facility] [place] [facility] Blood-Gluco 202-0 Yes [id number] Use as [facility] se Sensor 7-26 directed ity of (DEXCOM G6 00:00: [place] [facility]) 00 [facility] [place] [facility] Blood-Gluco 2021-0 Yes [id number] Use as [facility] se Sensor 7-26 directed ity of (DEXCOM G6 00:00: [place] [facility]) 00 [facility] Blood-Gluco Yes [id number] Use as [facility] se Sensor 7-26 directed ity of (DEXCOM G6 00:00: [place] [facility]ENS[facility]) [facility] Blood-Gluco Yes [id number] Use as [facility] se Sensor 7-26 directed ity of (DEXCOM G6 00:00: [place] SENS[facility]) [facility] Blood-Gluco 2021- No [id number] Use as [facility] se Sensor 7-26 10-18 directed ity o f (DEXCOM G6 00:00: 00:00 [place] [facility]) 00 :00 [facility] proMETHazin Yes [id number] 25mg Insert 1 [facility] e 25 mg 7-11 [place] [place] [facility] every [facility] (four) hours as needed for Nausea and Vomiting (N/V). proMETHazin Yes [id number] 25mg Insert 1 [facility] e 25 mg 7-11 [facility] [place] supp[place] [facility] every [facility] (four) hours as needed for Nausea and Vomiting (N/V). proMETHazin Yes [id number] 25mg Insert 1 [facility] e 25 mg 7-11 [facility] supp[place] 00:[place] [facility] every [facility] (four) hours as needed for Nausea and Vomiting (N/V). proMETHazin Yes [id number] 25mg Insert 1 [facility] e 25 mg 7-11 Supp[facility]itor [facility] supp[place] 00:[place] [facility] every [facility] (four) hours as needed for Nausea and Vomiting (N/V). proMETHazin Yes [id number] 25mg Insert 1 [facility] e 25 mg 7-11 [facility] supp[place] 00:[place] [facility] every [facility] (four) hours as needed for Nausea and Vomiting (N/V). proMETHazin Yes [id number] 25mg Insert 1 [facility] e 25 mg 7-11 Supp[facility]itor [facility] supp[place] 00:[place] [facility] every [facility] (four) hours as needed for Nausea and Vomiting (N/V). proMETHazin Yes [id number] 25mg Insert 1 [facility] e 25 mg 7-11 Suppositor [facility] of suppository 00:[place] [facility] every 4 [facility] (four) hours as needed for Nausea and Vomiting (N/V). proMETHazin Yes [id number] 25mg Insert 1 [facility] e 25 mg 7-11 Suppositor [facility] of suppository 00:[place] [facility] every 4 [facility] (four) hours as needed for Nausea and Vomiting (N/V). proMETHazin Yes [id number] 25mg Insert 1 [facility] e 25 mg 7-11 Suppositor [facility] suppository 00:[place] [facility] every [facility] (four) hours as needed for Nausea and Vomiting (N/V). proMETHazin Yes [id number] 25mg Insert 1 [facility] e 25 mg 7-11 Suppositor [facility] of suppository 00:[place] [facility] [facility] every 4 [facility] (four) hours as needed for Nausea and Vomiting (N/V). proMETHazin Yes [id number] 25mg Insert 1 [facility] e 25 mg 7-11 Suppositor [facility]y of suppository 00:[place] [facility] [facility] every 4 [facility] (four) hours as needed for Nausea and Vomiting (N/V). proMETHazin Yes [id number] 25mg Insert 1 [facility] e 25 mg 7-11 [facility]itor [facility] supp[place] 00:[place] [facility] every [facility] (four) hours as needed for Nausea and Vomiting (N/V). proMETHazin Yes [id number] 25mg Insert 1 [facility] e 25 mg 7-11 Supp[facility]itor [facility] of suppository 00:[place] [facility] every 4 [facility] (four) hours as needed for Nausea and Vomiting (N/V). proMETHazin Yes [id number] 25mg Insert 1 [facility] e 25 mg 7-11 Suppositor [facility] of suppository 00:[place] [facility] every 4 [facility] (four) hours as needed for Nausea and Vomiting (N/V). proMETHazin Yes [id number] 25mg Insert 1 [facility] e 25 mg 7-11 Suppositor [facility]y of suppository 00:00[place] [facility] every 4 Branch (four) hours as needed for Nausea and Vomiting (N/V). proMETHazin Yes [id number] 25mg Insert 1 [facility] e 25 mg 7-11 Suppositor [facility]y of suppository 00:00: [place] [facility] every 4 Branch (four) hours as needed for Nausea and Vomiting (N/V). proMETHazin Yes [id number] 25mg Insert 1 [facility] e 25 mg 7-11 Suppositor [facility]y of suppository 00:[place] [facility] every 4 Branch (four) hours as needed for Nausea and Vomiting (N/V). proMETHazin Yes [id number] 25mg Insert 1 [facility] e 25 mg 7-11 Suppositor [facility]y of suppository 00:[place] [facility] every 4 Branch (four) hours as needed for Nausea and Vomiting (N/V). proMETHazin Yes [id number] 25mg Insert 1 [facility] e 25 mg 7-11 Suppositor [facility]y of suppository 00:[place]: [place] [facility] every 4 Branch (four) hours as needed for Nausea and Vomiting (N/V). proMETHazin Yes [id number] 25mg Insert 1 [facility] e 25 mg 7-11 Suppositor [facility]y of suppository 00:00: [place] [facility] every 4 Branch (four) hours as needed for Nausea and Vomiting (N/V). proMETHazin Yes [id number] 25mg Insert 1 [facility] e 25 mg 7-11 Suppositor [facility]y of suppository 00:00[place] [facility] [facility] every 4 Branch (four) hours as needed for Nausea and Vomiting (N/V). proMETHazin Yes [id number] 25mg Insert 1 [facility] e 25 mg 7-11 Suppositor [facility]y of suppository 00:[place] [facility] every [facility] (four) hours as needed for Nausea and Vomiting (N/V). proMETHazin Yes [id number] 25mg Insert 1 [facility] e 25 mg 7-11 Suppositor [facility]y of suppository 00:[place] [facility] every 4 [facility] (four) hours as needed for Nausea and Vomiting (N/V). proMETHazin Yes [id number] 25mg Insert 1 [facility] e 25 mg 7-11 Suppositor [facility]y of suppository 00:[place] [facility] every 4 Branch (four) hours as needed for Nausea and Vomiting (N/V). proMETHazin Yes [id number] 25mg Insert 1 [facility] e 25 mg 7-11 Suppositor [facility]y of suppository 00:[place]: [place] [facility] every 4 [facility] (four) hours as needed for Nausea and Vomiting (N/V). proMETHazin Yes [id number] 25mg Insert 1 [facility] e 25 mg 7-11 Suppositor [facility]y of suppository 00:00: [place] [facility] every 4 Branch (four) hours as needed for Nausea and Vomiting (N/V). proMETHazin Yes [id number] 25mg Insert 1 [facility] e 25 mg 7-11 Suppositor [facility]y of suppository 00:[place] [facility] every 4 Branch (four) hours as needed for Nausea and Vomiting (N/V). proMETHazin Yes [id number] 25mg Insert 1 [facility] e 25 mg 7-11 Suppositor [facility]y of suppository 00:00: [place] [facility] [facility] every 4 Branch (four) hours as needed for Nausea and Vomiting (N/V). proMETHazin Yes [id number] 25mg Insert 1 [facility] e 25 mg 7-11 Suppositor [facility]y of suppository 00:00[place] [facility] every 4 Branch (four) hours as needed for Nausea and Vomiting (N/V). proMETHazin Yes [id number] 25mg Insert 1 [facility] e 25 mg 7-11 Suppositor [facility]y of suppository 00:00: [place] [facility] every 4 Branch (four) hours as needed for Nausea and Vomiting (N/V). proMETHazin Yes [id number] 25mg Insert 1 [facility] e 25 mg 7-11 Suppositor [facility]y of suppository 00:00: [place] [facility] every 4 Branch (four) hours as needed for Nausea and Vomiting (N/V). proMETHazin Yes [id number] 25mg Insert 1 [facility] e 25 mg 7-11 Suppositor [facility]y of suppository 00:00: [place] [facility] every 4 Branch (four) hours as needed for Nausea and Vomiting (N/V). proMETHazin Yes [id number] 25mg Insert 1 [facility] e 25 mg 7-11 Suppositor [facility]y of suppository 00:00: [place] [facility] every 4 Branch (four) hours as needed for Nausea and Vomiting (N/V). proMETHazin Yes [id number] 25mg Insert 1 [facility] e 25 mg 7-11 Suppositor [facility]y of suppository 00:[place]: [place] [facility] every 4 Branch (four) hours as needed for Nausea and Vomiting (N/V). proMETHazin Yes [id number] 25mg Insert 1 [facility] e 25 mg 7-11 Suppositor [facility]y of suppository 00:00: [place] every 4 Branch (four) hours as needed for Nausea and Vomiting (N/V). proMETHazin Yes [id number] 25mg Insert 1 [facility] e 25 mg 7-11 Suppositor ity of suppository 00:00: [place] [facility] every 4 Branch (four) hours as needed for Nausea and Vomiting (N/V). proMETHazin Yes [id number] 25mg Insert 1 [facility] e 25 mg 7-11 Suppositor [facility]y of suppository 00:00: [place] [facility] every 4 Branch (four) hours as needed for Nausea and Vomiting (N/V). proMETHazin Yes [id number] 25mg Insert 1 [facility] e 25 mg 7-11 Suppositor [facility]y of suppository 00:00: [place] [facility] every 4 Branch (four) hours as needed for Nausea and Vomiting (N/V). proMETHazin Yes [id number] 25mg Insert 1 [facility] e 25 mg 7-11 Suppositor [facility]y of suppository 00:00: [place] [facility] every 4 Branch (four) hours as needed for Nausea and Vomiting (N/V). proMETHazin Yes [id number] 25mg Insert 1 [facility] e 25 mg 7-11 Suppositor [facility]y of suppository 00:00: [place] [facility] every 4 Branch (four) hours as needed for Nausea and Vomiting (N/V). proMETHazin Yes [id number] 25mg Insert 1 [facility] e 25 mg 7-11 Suppositor [facility]y of suppository 00:00: [place] [facility] every 4 Branch (four) hours as needed for Nausea and Vomiting (N/V). proMETHazin Yes [id number] 25mg Insert 1 [facility] e 25 mg 7-11 Suppositor ity of suppository 00:00: [place] [facility] every 4 Branch (four) hours as needed for Nausea and Vomiting (N/V). proMETHazin Yes [id number] 25mg Insert 1 [facility] e 25 mg 7-11 Suppositor [facility]y of suppository 00:00: [place] [facility] every 4 Branch (four) hours as needed for Nausea and Vomiting (N/V). proMETHazin Yes [id number] 25mg Insert 1 [facility] e 25 mg 7-11 Suppositor [facility]y of suppository 00:00: [place] every 4 Branch (four) hours as needed for Nausea and Vomiting (N/V). proMETHazin Yes [id number] 25mg Insert 1 [facility] e 25 mg 7-11 Suppositor [facility]y of suppository 00:00: [place] [facility] every 4 Branch (four) hours as needed for Nausea and Vomiting (N/V). proMETHazin Yes [id number] 25mg Insert 1 [facility] e 25 mg 7-11 Suppositor ity of suppository 00:00: [place] every 4 Branch (four) hours as needed for Nausea and Vomiting (N/V). proMETHazin Yes [id number] 25mg Insert 1 [facility] e 25 mg 7-11 Suppositor [facility]y of suppository 00:00: [place] every 4 Branch (four) hours as needed for Nausea and Vomiting (N/V). proMETHazin Yes [id number] 25mg Insert 1 [facility] e 25 mg 7-11 Suppositor [facility]y of suppository 00:00: [place] [facility] every 4 Branch (four) hours as needed for Nausea and Vomiting (N/V). proMETHazin Yes [id number] 25mg Insert 1 [facility] e 25 mg 7-11 Suppositor [facility]y of suppository 00:00: [place] [facility] every 4 Branch (four) hours as needed for Nausea and Vomiting (N/V). proMETHazin Yes [id number] 25mg Insert 1 [facility] e 25 mg 7-11 Suppositor [facility]y of suppository 00:00: [place] every 4 Branch (four) hours as needed for Nausea and Vomiting (N/V). proMETHazin Yes [id number] 25mg Insert 1 [facility] e 25 mg 7-11 Suppositor [facility]y of suppository 00:00: [place] every 4 Branch (four) hours as needed for Nausea and Vomiting (N/V). proMETHazin Yes [id number] 25mg Insert 1 [facility] e 25 mg 7-11 Suppositor ity of suppository 00:00: [place] [facility] every 4 Branch (four) hours as needed for Nausea and Vomiting (N/V). proMETHazin Yes [id number] 25mg Insert 1 [facility] e 25 mg 7-11 Suppositor ity of suppository 00:00: [place] every 4 Branch (four) hours as needed for Nausea and Vomiting (N/V). proMETHazin Yes [id number] 25mg Insert 1 [facility] e 25 mg 7-11 Suppositor ity of suppository 00:00: [place] every 4 Branch (four) hours as needed for Nausea and Vomiting (N/V). proMETHazin Yes [id number] 25mg Insert 1 [facility] e 25 mg 7-11 Suppositor ity of suppository 00:00: [place] every 4 Branch (four) hours as needed for Nausea and Vomiting (N/V). proMETHazin Yes [id number] 25mg Insert 1 [facility] e 25 mg 7-11 Suppositor ity of suppository 00:00: [place] every 4 Branch (four) hours as needed for Nausea and Vomiting (N/V). proMETHazin Yes [id number] 25mg Insert 1 [facility] e 25 mg 7-11 Suppositor ity of suppository 00:00: [place] every 4 Branch (four) hours as needed for Nausea and Vomiting (N/V). proMETHazin Yes [id number] 25mg Insert 1 [facility] e 25 mg 7-11 Suppositor ity of suppository 00:00: [place] every 4 Branch (four) hours as needed for Nausea and Vomiting (N/V). proMETHazin Yes [id number] 25mg Insert 1 [facility] e 25 mg 7-11 Suppositor ity of suppository 00:00: [place] every 4 Branch (four) hours as needed for Nausea and Vomiting (N/V). proMETHazin Yes [id number] 25mg Insert 1 [facility] e 25 mg 7-11 Suppositor ity of suppository 00:00: [place] every 4 Branch (four) hours as needed for Nausea and Vomiting (N/V). proMETHazin Yes [id number] 25mg Insert 1 [facility] e 25 mg 7-11 Suppositor ity of suppository 00:00: [place] every 4 Branch (four) hours as needed for Nausea and Vomiting (N/V). proMETHazin Yes [id number] 25mg Insert 1 [facility] e 25 mg 7-11 Suppositor ity of suppository 00:00: [place] [facility] every 4 Branch (four) hours as needed for Nausea and Vomiting (N/V). proMETHazin Yes [id number] 25mg Insert 1 [facility] e 25 mg 7-11 Suppositor ity of suppository 00:00[facility] every 4 Branch (four) hours as needed for Nausea and Vomiting (N/V). haloperidoL 2022-0 Yes [id number] .5mg Take 1 Univers 0.5 mg 7-08 tablet by ity of tablet 00:00: [place] (two) Medical times Branch daily. haloperidoL 2022-0 Yes [id number] .5mg Take 1 Univers 0.5 mg 7-08 tablet by ity of tablet 00:00: mouth (two) Medical times Branch daily. haloperidoL 2022-0 Yes [id number] .5mg Take 1 Univers 0.5 mg 7-08 tablet by ity of tablet 00:00: mouth (two) Medical times Branch daily. haloperidoL 2022-0 Yes [id number] .5mg Take 1 [facility] 0.5 mg 7-08 tablet by ity of tablet 00:00: mouth (two) Medical times Branch daily. haloperidoL 2022-0 Yes [id number] .5mg Take 1 [facility] 0.5 mg 7-08 tablet by ity of tablet 00:00: mouth (two) Medical times Branch daily. haloperidoL 2022-0 Yes [id number] .5mg Take 1 [facility] 0.5 mg 7-08 tablet by ity of tablet 00:00: mouth (two) Medical times Branch daily. haloperidoL 2022-0 Yes [id number] .5mg Take 1 [facility] 0.5 mg 7-08 tablet by ity of tablet 00:00: mouth (two) Medical times Branch daily. haloperidoL 2022-0 Yes [id number] .5mg Take 1 [facility] 0.5 mg 7-08 tablet by ity of tablet 00:00: mouth (two) Medical times Branch daily. haloperidoL 2022-0 Yes [id number] .5mg Take 1 [facility] 0.5 mg 7-08 tablet by ity of tablet 00:00: mouth (two) Medical times Branch daily. haloperidoL 2022-0 Yes [id number] .5mg Take 1 [facility] 0.5 mg 7-08 tablet by ity of tablet 00:00: mouth (two) Medical times Branch daily. haloperidoL 2022-0 Yes [id number] .5mg Take 1 Univers 0.5 mg 7-08 tablet by ity of tablet 00:00: mouth 2 [place] (two) Medical times Branch daily. haloperidoL 2022-0 2022- No [id number] .5mg Take 1 Univers 0.5 mg 7-08 10-18 tablet by ity of tablet 00:00: 00:00 mouth 2 [place] 00 :00 (two) Medical times Branch daily. haloperidoL 2022-0 2022- No [id number] .5mg Take 1 Univers 0.5 mg 7-08 10-18 tablet by ity of tablet 00:00: 00:00 mouth 2 [place] 00 :00 (two) Medical times Branch daily. sildenafiL 2022-0 Yes 100mg 100 mg as U nivers 100 mg 6-17 needed. ity of tablet 09:23: [place] [address] Medical Branch gabapentin 2022-0 Yes 100mg Take 100 Un darius 100 mg 6-17 mg by ity of capsule 09:23: mouth 3 [place] [address] (three) Medical times Branch daily. metFORMIN 2022-0 Yes 500mg Take 500 Uni vers 500 mg 6-17 mg by ity of tablet 09:23: mouth 2 [place] [address] (two) Medical times Branch daily with meals. Takes 2 tablets twice daily rosuvastati 2022-0 Yes 20mg Take 20 mg Univers n 20 mg 6-17 by mouth ity of tablet 09:23: at [place] [address] bedtime. Medical Branch omeprazole 2-0 Yes 20mg Take 20 mg U nivers 20 mg 6-17 by mouth ity of capsule 09:23: daily. [place] [address] Takes 2 Medical tablets Branch daily sildenafiL 2022-0 Yes 100mg 100 mg as U nivers 100 mg 6-17 needed. ity of tablet 09:23: [place] [address] Medical Branch gabapentin 2022-0 Yes 100mg Take 100 Un darius 100 mg 6-17 mg by ity of capsule 09:23: mouth 3 [place] [address] (three) Medical times Branch daily. metFORMIN 2022-0 Yes 500mg Take 500 Uni vers 500 mg 6-17 mg by ity of tablet 09:23: mouth 2 [place] [address] (two) Medical times Branch daily with meals. Takes 2 tablets twice daily rosuvastati 2022-0 Yes 20mg Take 20 mg Univers n 20 mg 6-17 by mouth ity of tablet 09:23: at [place] [address] bedtime. Medical Branch omeprazole 2022-0 Yes 20mg Take 20 mg U nivers 20 mg 6-17 by mouth ity of capsule 09:23: daily. [place] [address] Takes 2 Medical tablets Branch daily sildenafiL 2022-0 Yes 100mg 100 mg as U nivers 100 mg 6-17 needed. ity of tablet 09:23: [place] [address] Medical Branch gabapentin 2022-0 Yes 100mg Take 100 Un darius 100 mg 6-17 mg by ity of capsule 09:23: mouth 3 [place] [address] (three) Medical times Branch daily. metFORMIN 2022-0 Yes 500mg Take 500 Uni vers 500 mg 6-17 mg by ity of tablet 09:23: mouth 2 [place] [address] (two) Medical times Branch daily with meals. Takes 2 tablets twice daily rosuvastati 2022-0 Yes 20mg Take 20 mg Univers n 20 mg 6-17 by mouth ity of tablet 09:23: at [place] [address] bedtime. Medical Branch omeprazole 2022-0 Yes 20mg Take 20 mg U nivers 20 mg 6-17 by mouth ity of capsule 09:23: daily. [place] [address] Takes 2 Medical tablets Branch daily sildenafiL 2022-0 Yes 100mg 100 mg as U nivers 100 mg 6-17 needed. ity of tablet 09:23: [place] [address] Medical Branch gabapentin 2022-0 Yes 100mg Take 100 Un darius 100 mg 6-17 mg by ity of capsule 09:23: mouth 3 [place] [address] (three) Medical times Branch daily. metFORMIN 2022-0 Yes 500mg Take 500 Uni vers 500 mg 6-17 mg by ity of tablet 09:23: mouth 2 [place] [address] (two) Medical times Branch daily with meals. Takes 2 tablets twice daily rosuvastati 2022-0 Yes 20mg Take 20 mg Univers n 20 mg 6-17 by mouth ity of tablet 09:23: at [place] [address] bedtime. Medical Branch omeprazole 2022-0 Yes 20mg Take 20 mg U nivers 20 mg 6-17 by mouth ity of capsule 09:23: daily. [place] [address] Takes 2 Medical tablets Branch daily sildenafiL 2022-0 Yes 100mg 100 mg as U nivers 100 mg 6-17 needed. ity of tablet 09:23: [place] [address] Medical Branch gabapentin 2022-0 Yes 100mg Take 100 Un darius 100 mg 6-17 mg by ity of capsule 09:23: mouth 3 [place] [address] (three) Medical times Branch daily. metFORMIN 2022-0 Yes 500mg Take 500 Uni vers 500 mg 6-17 mg by ity of tablet 09:23: mouth 2 [place] [address] (two) Medical times Branch daily with meals. Takes 2 tablets twice daily rosuvastati 2022-0 Yes 20mg Take 20 mg [facility] n 20 mg 6-17 by mouth ity of tablet 09:23: at [place] [address] bedtime. Medical Branch omeprazole 2022-0 Yes 20mg Take 20 mg U nivers 20 mg 6-17 by mouth ity of capsule 09:23: daily. [place] [address] Takes 2 Medical tablets Branch daily sildenafiL 2022-0 Yes 100mg 100 mg as U nivers 100 mg 6-17 needed. ity of tablet 09:23: [place] [address] Medical Branch gabapentin 2022-0 Yes 100mg Take 100 Un darius 100 mg 6-17 mg by ity of capsule 09:23: mouth 3 [place] [address] (three) Medical times Branch daily. metFORMIN 2022-0 Yes 500mg Take 500 Uni vers 500 mg 6-17 mg by ity of tablet 09:23: mouth 2 [place] [address] (two) Medical times Branch daily with meals. Takes 2 tablets twice daily rosuvastati 2022-0 Yes 20mg Take 20 mg Univers n 20 mg 6-17 by mouth ity of tablet 09:23: at [place] [address] bedtime. Medical Branch omeprazole 2-0 Yes 20mg Take 20 mg U nivers 20 mg 6-17 by mouth ity of capsule 09:23: daily. [place] [address] Takes 2 Medical tablets Branch daily sildenafiL 2022-0 Yes 100mg 100 mg as U nivers 100 mg 6-17 needed. ity of tablet 09:23: [place] [address] Medical Branch gabapentin 2022-0 Yes 100mg Take 100 Un darius 100 mg 6-17 mg by ity of capsule 09:23: mouth 3 [place] [address] (three) Medical times Branch daily. metFORMIN 2022-0 Yes 500mg Take 500 Uni vers 500 mg 6-17 mg by ity of tablet 09:23: mouth 2 [place] [address] (two) Medical times Branch daily with meals. Takes 2 tablets twice daily rosuvastati 2022-0 Yes 20mg Take 20 mg Univers n 20 mg 6-17 by mouth ity of tablet 09:23: at [place] [address] bedtime. Medical Branch omeprazole 2022-0 Yes 20mg Take 20 mg U nivers 20 mg 6-17 by mouth ity of capsule 09:23: daily. [place] [address] Takes 2 Medical tablets Branch daily sildenafiL 2022-0 Yes 100mg 100 mg as U nivers 100 mg 6-17 needed. ity of tablet 09:23: [place] [address] Medical Branch gabapentin 2022-0 Yes 100mg Take 100 Un darius 100 mg 6-17 mg by ity of capsule 09:23: mouth 3 [place] [address] (three) Medical times Branch daily. metFORMIN 2022-0 Yes 500mg Take 500 Uni vers 500 mg 6-17 mg by ity of tablet 09:23: mouth 2 [place] [address] (two) Medical times Branch daily with meals. Takes 2 tablets twice daily rosuvastati 2022-0 Yes 20mg Take 20 mg Univers n 20 mg 6-17 by mouth ity of tablet 09:23: at [place] [address] bedtime. Medical Branch omeprazole 2022-0 Yes 20mg Take 20 mg U nivers 20 mg 6-17 by mouth ity of capsule 09:23: daily. [place] [address] Takes 2 Medical tablets Branch daily sildenafiL 2022-0 Yes 100mg 100 mg as U nivers 100 mg 6-17 needed. ity of tablet 09:23: [place] [address] Medical Branch gabapentin 2022-0 Yes 100mg Take 100 Un darius 100 mg 6-17 mg by ity of capsule 09:23: mouth 3 [place] [address] (three) Medical times Branch daily. metFORMIN 2022-0 Yes 500mg Take 500 Uni vers 500 mg 6-17 mg by ity of tablet 09:23: mouth 2 [place] [address] (two) Medical times Branch daily with meals. Takes 2 tablets twice daily rosuvastati 2022-0 Yes 20mg Take 20 mg [facility] 20 mg 6-17 by mouth ity of tablet 09:23: at [place] [address] bedtime. Medical Branch omeprazole 2022-0 Yes 20mg Take 20 mg U nivers 20 mg 6-17 by mouth ity of capsule 09:23: daily. [place] [address] Takes 2 Medical tablets Branch daily sildenafiL 2022-0 Yes 100mg 100 mg as U nivers 100 mg 6-17 needed. ity of tablet 09:23: [place] [address] Medical Branch gabapentin 2022-0 Yes 100mg Take 100 Un darius 100 mg 6-17 mg by ity of capsule 09:23: mouth 3 [place] [address] (three) Medical times Branch daily. metFORMIN 2022-0 Yes 500mg Take 500 Uni vers 500 mg 6-17 mg by ity of tablet 09:23: mouth 2 [place] [address] (two) Medical times Branch daily with meals. Takes 2 tablets twice daily rosuvastati 2022-0 Yes 20mg Take 20 mg [facility] n 20 mg 6-17 by mouth ity of tablet 09:23: at [place] [address] bedtime. Medical Branch omeprazole 2022-0 Yes 20mg Take 20 mg [facility] nivers 20 mg 6-17 by mouth ity of capsule 09:23: daily. [place] [address] Takes 2 Medical tablets Branch daily sildenafiL 2022-0 Yes 100mg 100 mg as U nivers 100 mg 6-17 needed. ity of tablet 09:23: [place] [address] Medical Branch gabapentin 2022-0 Yes 100mg Take 100 Un darius 100 mg 6-17 mg by ity of capsule 09:23: mouth 3 [place] [address] (three) Medical times [place] daily. metFORMIN 2022-0 Yes 500mg Take 500 Uni vers 500 mg 6-17 mg by ity of tablet 09:23: mouth 2 [place] [address] (two) Medical times [place] daily with meals. Takes 2 tablets twice daily rosuvastati 2022-0 Yes 20mg Take 20 mg [facility] n 20 mg 6-17 by mouth ity of tablet 09:23: at [place] [address] bedtime. Medical Branch omeprazole 2022-0 Yes 20mg Take 20 mg [facility] nivers 20 mg 6-17 by mouth ity of capsule 09:23: daily. [place] [address] Takes 2 Medical tablets Branch daily sildenafiL 2022-0 Yes 100mg 100 mg as U nivers 100 mg 6-17 needed. ity of tablet 09:23: [place] [address] Medical Branch metFORMIN 2022-0 Yes 500mg Take 500 [facility] vers 500 mg 6-17 mg by ity of tablet 09:23: mouth 2 [place] [address] (two) Medical times [place] daily with meals. Takes 2 tablets twice daily rosuvastati 2022-0 Yes 20mg Take 20 mg [facility] n 20 mg 6-17 by mouth ity of tablet 09:23: at [place] [address] bedtime. Medical Branch omeprazole 2022-0 Yes 20mg Take 20 mg [facility] nivers 20 mg 6-17 by mouth ity of capsule 09:23: daily. [place] [address] Takes 2 Medical tablets Branch daily sildenafiL 2022-0 Yes 100mg 100 mg as U nivers 100 mg 6-17 needed. ity of tablet 09:23: [place] [address] Medical Branch metFORMIN 2022-0 Yes 500mg Take 500 [facility] vers 500 mg 6-17 mg by ity of tablet 09:23: mouth 2 [place] [address] ([facility]) Medical times Branch daily with meals. Takes 2 tablets twice daily rosuvastati 2022-0 Yes 20mg Take 20 mg [facility] n 20 mg 6-17 by mouth ity of tablet 09:23: at [place] [address] bedtime. Medical Branch omeprazole 2022-0 Yes 20mg Take 20 mg [facility] nivers 20 mg 6-17 by mouth ity of capsule 09:23: daily. [place] [address] Takes 2 Medical tablets Branch daily sildenafiL 2022-0 Yes 100mg 100 mg as U nivers 100 mg 6-17 needed. ity of tablet 09:23: [address] Branch metFORMIN 2022-0 Yes 500mg Take 500 Uni vers 500 mg 6-17 mg by ity of tablet 09:23: mouth 2 [place] [address] ([facility]) Medical times [place] daily with meals. Takes 2 tablets twice daily rosuvastati 2022-0 Yes 20mg Take 20 mg [facility] n 20 mg 6-17 by mouth ity of tablet 09:23: at [place] [address] bedtime. Medical Branch omeprazole 2022-0 Yes 20mg Take 20 mg [facility] nivers 20 mg 6-17 by mouth ity of capsule 09:23: daily. [place] [address] Takes 2 Medical tablets Branch daily sildenafiL 2022-0 Yes 100mg 100 mg as U nivers 100 mg 6-17 needed. ity of tablet 09:23: [address] Branch metFORMIN 2022-0 Yes 500mg Take 500 [facility] vers 500 mg 6-17 mg by ity of tablet 09:23: mouth 2 [place] [address] ([facility]) Medical times Branch daily with meals. Takes 2 tablets twice daily rosuvastati 2022-0 Yes 20mg Take 20 mg [facility] n 20 mg 6-17 by mouth ity of tablet 09:23: at [place] [address] bedtime. Medical Branch omeprazole 2022-0 Yes 20mg Take 20 mg [facility] nivers 20 mg 6-17 by mouth ity of capsule 09:23: daily. [place] [address] Takes 2 Medical tablets Branch daily sildenafiL 2022-0 Yes 100mg 100 mg as U nivers 100 mg 6-17 needed. ity of tablet 09:23: [place] [address] Medical Branch metFORMIN 2022-0 Yes 500mg Take 500 [facility] vers 500 mg 6-17 mg by ity of tablet 09:23: mouth 2 [place] [address] (two) Medical times Branch daily with meals. Takes 2 tablets twice daily rosuvastati 2022-0 Yes 20mg Take 20 mg [facility] n 20 mg 6-17 by mouth ity of tablet 09:23: at [place] [address] bedtime. Medical Branch omeprazole 2022-0 Yes 20mg Take 20 mg [facility] nivers 20 mg 6-17 by mouth ity of capsule 09:23: daily. [place] [address] Takes 2 Medical tablets Branch daily sildenafiL 2022-0 Yes 100mg 100 mg as U nivers 100 mg 6-17 needed. ity of tablet 09:23: [place] [address] Medical Branch metFORMIN 2022-0 Yes 500mg Take 500 Uni vers 500 mg 6-17 mg by ity of tablet 09:23: mouth 2 [place] [address] (two) Medical times [place] daily with meals. Takes 2 tablets twice daily rosuvastati 2022-0 Yes 20mg Take 20 mg [facility] n 20 mg 6-17 by mouth ity of tablet 09:23: at [place] [address] bedtime. Medical Branch omeprazole 2022-0 Yes 20mg Take 20 mg [facility] nivers 20 mg 6-17 by mouth ity of capsule 09:23: daily. [place] [address] Takes 2 Medical tablets Branch daily sildenafiL 2022-0 Yes 100mg 100 mg as [facility] nivers 100 mg 6-17 needed. ity of tablet 09:23: [place] [address] Medical Branch metFORMIN 2022-0 Yes 500mg Take 500 Uni vers 500 mg 6-17 mg by ity of tablet 09:23: mouth 2 [place] [address] (two) Medical times [place] daily with meals. Takes 2 tablets twice daily rosuvastati 2022-0 Yes 20mg Take 20 mg [facility] n 20 mg 6-17 by mouth ity of tablet 09:23: at [place] [address] bedtime. Medical Branch omeprazole 2022-0 Yes 20mg Take 20 mg [facility] nivers 20 mg 6-17 by mouth ity of capsule 09:23: daily. [place] [address] Takes 2 Medical tablets Branch daily sildenafiL 2022-0 Yes 100mg 100 mg as [facility] nivers 100 mg 6-17 needed. ity of tablet 09:23: [place] [address] Medical Branch metFORMIN 2022-0 Yes 500mg Take 500 [facility] vers 500 mg 6-17 mg by ity of tablet 09:23: mouth 2 [place] [address] (two) Medical times Branch daily with meals. Takes 2 tablets twice daily rosuvastati 2022-0 Yes 20mg Take 20 mg [facility] n 20 mg 6-17 by mouth ity of tablet 09:23: at [place] [address] bedtime. Medical Branch omeprazole 2022-0 Yes 20mg Take 20 mg [facility] nivers 20 mg 6-17 by mouth ity of capsule 09:23: daily. [place] [address] Takes 2 Medical tablets Branch daily sildenafiL 2022-0 Yes 100mg 100 mg as U nivers 100 mg 6-17 needed. ity of tablet 09:23: [place] [address] Medical Branch metFORMIN 2022-0 Yes 500mg Take 500 Uni vers 500 mg 6-17 mg by ity of tablet 09:23: mouth 2 [place] [address] (two) Medical times Branch daily with meals. Takes 2 tablets twice daily rosuvastati 2022-0 Yes 20mg Take 20 mg [facility] n 20 mg 6-17 by mouth ity of tablet 09:23: at [place] [address] bedtime. Medical Branch omeprazole 2-0 Yes 20mg Take 20 mg [facility] nivers 20 mg 6-17 by mouth ity of capsule 09:23: daily. [place] [address] Takes 2 Medical tablets Branch daily sildenafiL 2-0 Yes 100mg 100 mg as [facility] nivers 100 mg 6-17 needed. ity of tablet 09:23: [place] [address] Medical Branch rosuvastati 2022-0 Yes 20mg Take 20 mg [facility] n 20 mg 6-17 by mouth ity of tablet 09:23: at [place] [address] bedtime. Medical Branch omeprazole 2-0 Yes 20mg Take 20 mg U nivers 20 mg 6-17 by mouth ity of capsule 09:23: daily. [place] [address] Takes 2 Medical tablets Branch daily sildenafiL 2022-0 Yes 100mg 100 mg as [facility] nivers 100 mg 6-17 needed. ity of tablet 09:23: [place] [address] Medical Branch rosuvastati 2022-0 Yes 20mg Take 20 mg [facility] n 20 mg 6-17 by mouth ity of tablet 09:23: at [place] [address] bedtime. Medical Branch omeprazole 2022-0 Yes 20mg Take 20 mg [facility] nivers 20 mg 6-17 by mouth ity of capsule 09:23: daily. [place] [address] Takes 2 Medical tablets Branch daily sildenafiL 2022-0 Yes 100mg 100 mg as U nivers 100 mg 6-17 needed. ity of tablet 09:23: [place] [address] Medical Branch rosuvastati 2022-0 Yes 20mg Take 20 mg [facility] n 20 mg 6-17 by mouth ity of tablet 09:23: at [place] [address] bedtime. Medical Branch omeprazole 2-0 Yes 20mg Take 20 mg U nivers 20 mg 6-17 by mouth ity of capsule 09:23: daily. [place] [address] Takes 2 Medical tablets Branch daily sildenafiL 2-0 Yes 100mg 100 mg as U nivers 100 mg 6-17 needed. ity of tablet 09:23: [place] [address] Medical Branch rosuvastati 2-0 Yes 20mg Take 20 mg [facility] n 20 mg 6-17 by mouth ity of tablet 09:23: at [place] [address] bedtime. Medical Branch omeprazole 2-0 Yes 20mg Take 20 mg [facility] nivers 20 mg 6-17 by mouth ity of capsule 09:23: daily. [place] [address] Takes 2 Medical tablets Branch daily sildenafiL 2021-0 Yes 100mg 100 mg as [facility] nivers 100 mg 6-17 needed. ity of tablet 09:23: [place] [address] Medical Branch rosuvastati 2-0 Yes 20mg Take 20 mg [facility] n 20 mg 6-17 by mouth ity of tablet 09:23: at [place] [address] bedtime. Medical Branch omeprazole 2021-0 Yes 20mg Take 20 mg U nivers 20 mg 6-17 by mouth ity of capsule 09:23: daily. [place] [address] Takes 2 Medical tablets Branch daily sildenafiL 2021-0 Yes 100mg 100 mg as U nivers 100 mg 6-17 needed. ity of tablet 09:23: [place] [address] Medical Branch rosuvastati 2022-0 Yes 20mg Take 20 mg [facility] n 20 mg 6-17 by mouth ity of tablet 09:23: at [place] [address] bedtime. Medical Branch omeprazole 2-0 Yes 20mg Take 20 mg [facility] nivers 20 mg 6-17 by mouth ity of capsule 09:23: daily. [place] [address] Takes 2 Medical tablets Branch daily sildenafiL 2-0 Yes 100mg 100 mg as U nivers 100 mg 6-17 needed. ity of tablet 09:23: [place] [address] Medical Branch rosuvastati 2022-0 Yes 20mg Take 20 mg [facility] n 20 mg 6-17 by mouth ity of tablet 09:23: at [place] [address] bedtime. Medical Branch omeprazole 2022-0 Yes 20mg Take 20 mg U nivers 20 mg 6-17 by mouth ity of capsule 09:23: daily. [place] [address] Takes 2 Medical tablets Branch daily sildenafiL 2022-0 Yes 100mg 100 mg as U nivers 100 mg 6-17 needed. ity of tablet 09:23: [place] [address] Medical Branch rosuvastati 2021-0 Yes 20mg Take 20 mg [facility] n 20 mg 6-17 by mouth ity of tablet 09:23: at [place] [address] bedtime. Medical Branch omeprazole 2-0 Yes 20mg Take 20 mg U nivers 20 mg 6-17 by mouth ity of capsule 09:23: daily. [place] [address] Takes 2 Medical tablets Branch daily sildenafiL 2021-0 Yes 100mg 100 mg as U nivers 100 mg 6-17 needed. ity of tablet 09:23: [place] [address] Medical Branch rosuvastati 2021-0 Yes 20mg Take 20 mg [facility] n 20 mg 6-17 by mouth ity of tablet 09:23: at [place] [address] bedtime. Medical Branch omeprazole 2-0 Yes 20mg Take 20 mg U nivers 20 mg 6-17 by mouth ity of capsule 09:23: daily. [place] [address] Takes 2 Medical tablets Branch daily sildenafiL 2021-0 Yes 100mg 100 mg as U nivers 100 mg 6-17 needed. ity of tablet 09:23: [place] [address] Medical Branch rosuvastati 2-0 Yes 20mg Take 20 mg [facility] n 20 mg 6-17 by mouth ity of tablet 09:23: at [place] [address] bedtime. Medical Branch omeprazole 2-0 Yes 20mg Take 20 mg U nivers 20 mg 6-17 by mouth ity of capsule 09:23: daily. [place] [address] Takes 2 Medical tablets Branch daily sildenafiL 2-0 Yes 100mg 100 mg as U nivers 100 mg 6-17 needed. ity of tablet 09:23: [place] [address] Medical Branch rosuvastati 2-0 Yes 20mg Take 20 mg [facility] n 20 mg 6-17 by mouth ity of tablet 09:23: at [place] [address] bedtime. Medical Branch omeprazole 2022-0 Yes 20mg Take 20 mg U nivers 20 mg 6-17 by mouth ity of capsule 09:23: daily. [place] [address] Takes 2 Medical tablets Branch daily sildenafiL 2022-0 Yes 100mg 100 mg as U nivers 100 mg 6-17 needed. ity of tablet 09:23: [place] [address] Medical Branch rosuvastati 2-0 Yes 20mg Take 20 mg [facility] n 20 mg 6-17 by mouth ity of tablet 09:23: at [place] [address] bedtime. Medical Branch omeprazole 2-0 Yes 20mg Take 20 mg U nivers 20 mg 6-17 by mouth ity of capsule 09:23: daily. [place] [address] Takes 2 Medical tablets Branch daily sildenafiL 2-0 Yes 100mg 100 mg as U nivers 100 mg 6-17 needed. ity of tablet 09:23: [place] [address] Medical Branch rosuvastati 2021-0 Yes 20mg Take 20 mg [facility] n 20 mg 6-17 by mouth ity of tablet 09:23: at [place] [address] bedtime. Medical Branch omeprazole 2021-0 Yes 20mg Take 20 mg U nivers 20 mg 6-17 by mouth ity of capsule 09:23: daily. [place] [address] Takes 2 Medical tablets Branch daily sildenafiL 2021-0 Yes 100mg 100 mg as U nivers 100 mg 6-17 needed. ity of tablet 09:23: [place] [address] Medical Branch rosuvastati 2021-0 Yes 20mg Take 20 mg [facility] n 20 mg 6-17 by mouth ity of tablet 09:23: at [place] [address] bedtime. Medical Branch omeprazole 2021-0 Yes 20mg Take 20 mg U nivers 20 mg 6-17 by mouth ity of capsule 09:23: daily. [place] [address] Takes 2 Medical tablets Branch daily sildenafiL 2-0 Yes 100mg 100 mg as U nivers 100 mg 6-17 needed. ity of tablet 09:23: [address] Branch rosuvastati 2-0 Yes 20mg Take 20 mg [facility] n 20 mg 6-17 by mouth ity of tablet 09:23: at [place] [address] bedtime. Medical Branch omeprazole 2-0 Yes 20mg Take 20 mg U nivers 20 mg 6-17 by mouth ity of capsule 09:23: daily. [place] [address] Takes 2 Medical tablets Branch daily sildenafiL 2-0 Yes 100mg 100 mg as U nivers 100 mg 6-17 needed. ity of tablet 09:23: [address] Branch rosuvastati 2022-0 Yes 20mg Take 20 mg [facility] n 20 mg 6-17 by mouth ity of tablet 09:23: at [place] [address] bedtime. Medical Branch omeprazole 2022-0 Yes 20mg Take 20 mg U nivers 20 mg 6-17 by mouth ity of capsule 09:23: daily. [place] [address] Takes 2 Medical tablets Branch daily sildenafiL 2022-0 Yes 100mg 100 mg as U nivers 100 mg 6-17 needed. ity of tablet 09:23: [place] [address] Medical Branch rosuvastati 2022-0 Yes 20mg Take 20 mg [facility] n 20 mg 6-17 by mouth ity of tablet 09:23: at [place] [address] bedtime. Medical Branch omeprazole 2022-0 Yes 20mg Take 20 mg U nivers 20 mg 6-17 by mouth ity of capsule 09:23: daily. [place] [address] Takes 2 Medical tablets Branch daily sildenafiL 2022-0 Yes 100mg 100 mg as U nivers 100 mg 6-17 needed. ity of tablet 09:23: [place] [address] Medical Branch rosuvastati 2022-0 Yes 20mg Take 20 mg [facility] n 20 mg 6-17 by mouth ity of tablet 09:23: at [place] [address] bedtime. Medical Branch omeprazole 2-0 Yes 20mg Take 20 mg U nivers 20 mg 6-17 by mouth ity of capsule 09:23: daily. [place] [address] Takes 2 Medical tablets Branch daily sildenafiL 2-0 Yes 100mg 100 mg as U nivers 100 mg 6-17 needed. ity of tablet 09:23: [place] [address] Medical Branch rosuvastati 2022-0 Yes 20mg Take 20 mg [facility] n 20 mg 6-17 by mouth ity of tablet 09:23: at [place] [address] bedtime. Medical Branch omeprazole 2-0 Yes 20mg Take 20 mg U nivers 20 mg 6-17 by mouth ity of capsule 09:23: daily. [place] [address] Takes 2 Medical tablets Branch daily sildenafiL 2022-0 Yes 100mg 100 mg as U nivers 100 mg 6-17 needed. ity of tablet 09:23: [place] [address] Medical Branch rosuvastati 2022-0 Yes 20mg Take 20 mg [facility] n 20 mg 6-17 by mouth ity of tablet 09:23: at [place] [address] bedtime. Medical Branch omeprazole 2022-0 Yes 20mg Take 20 mg U nivers 20 mg 6-17 by mouth ity of capsule 09:23: daily. [place] [address] Takes 2 Medical tablets Branch daily sildenafiL 2022-0 Yes 100mg 100 mg as U nivers 100 mg 6-17 needed. ity of tablet 09:23: [place] [address] Medical Branch rosuvastati 2021-0 Yes 20mg Take 20 mg [facility] n 20 mg 6-17 by mouth ity of tablet 09:23: at [place] [address] bedtime. Medical Branch omeprazole 2-0 Yes 20mg Take 20 mg U nivers 20 mg 6-17 by mouth ity of capsule 09:23: daily. [place] [address] Takes 2 Medical tablets Branch daily sildenafiL 2-0 Yes 100mg 100 mg as U nivers 100 mg 6-17 needed. ity of tablet 09:23: [place] [address] Medical Branch rosuvastati 2021-0 Yes 20mg Take 20 mg [facility] n 20 mg 6-17 by mouth ity of tablet 09:23: at [place] [address] bedtime. Medical Branch omeprazole 2021-0 Yes 20mg Take 20 mg U nivers 20 mg 6-17 by mouth ity of capsule 09:23: daily. [place] [address] Takes 2 Medical tablets Branch daily sildenafiL 2021-0 Yes 100mg 100 mg as U nivers 100 mg 6-17 needed. ity of tablet 09:23: [address] Branch rosuvastati 2021-0 Yes 20mg Take 20 mg [facility] n 20 mg 6-17 by mouth ity of tablet 09:23: at [place] [address] bedtime. Medical Branch omeprazole 2021-0 Yes 20mg Take 20 mg U nivers 20 mg 6-17 by mouth ity of capsule 09:23: daily. [place] [address] Takes 2 Medical tablets Branch daily sildenafiL 2021-0 Yes 100mg 100 mg as U nivers 100 mg 6-17 needed. ity of tablet 09:23: [address] Branch rosuvastati 2022-0 Yes 20mg Take 20 mg [facility] n 20 mg 6-17 by mouth ity of tablet 09:23: at [place] [address] bedtime. Medical Branch omeprazole 2-0 Yes 20mg Take 20 mg U nivers 20 mg 6-17 by mouth ity of capsule 09:23: daily. [place] [address] Takes 2 Medical tablets Branch daily sildenafiL 2-0 Yes 100mg 100 mg as U nivers 100 mg 6-17 needed. ity of tablet 09:23: [address] Branch rosuvastati 2022-0 Yes 20mg Take 20 mg [facility] n 20 mg 6-17 by mouth ity of tablet 09:23: at [place] [address] bedtime. Medical Branch omeprazole 2022-0 Yes 20mg Take 20 mg U nivers 20 mg 6-17 by mouth ity of capsule 09:23: daily. [place] [address] Takes 2 Medical tablets Branch daily sildenafiL 2022-0 Yes 100mg 100 mg as U nivers 100 mg 6-17 needed. ity of tablet 09:23: [place] [address] Medical Branch rosuvastati 2022-0 Yes 20mg Take 20 mg [facility] n 20 mg 6-17 by mouth ity of tablet 09:23: at [place] [address] bedtime. Medical Branch omeprazole 2022-0 Yes 20mg Take 20 mg U nivers 20 mg 6-17 by mouth ity of capsule 09:23: daily. [place] [address] Takes 2 Medical tablets Branch daily sildenafiL 2022-0 Yes 100mg 100 mg as U nivers 100 mg 6-17 needed. ity of tablet 09:23: [place] [address] Medical Branch rosuvastati 2022-0 Yes 20mg Take 20 mg [facility] n 20 mg 6-17 by mouth ity of tablet 09:23: at [place] [address] bedtime. Medical Branch omeprazole 2022-0 Yes 20mg Take 20 mg [facility] nivers 20 mg 6-17 by mouth ity of capsule 09:23: daily. [place] [address] Takes 2 Medical tablets Branch daily sildenafiL 2022-0 Yes 100mg 100 mg as U nivers 100 mg 6-17 needed. ity of tablet 09:23: [place] [address] Medical Branch rosuvastati 2022-0 Yes 20mg Take 20 mg [facility] n 20 mg 6-17 by mouth ity of tablet 09:23: at [place] [address] bedtime. Medical Branch omeprazole 2022-0 Yes 20mg Take 20 mg U nivers 20 mg 6-17 by mouth ity of capsule 09:23: daily. [place] [address] Takes 2 Medical tablets Branch daily sildenafiL 2022-0 Yes 100mg 100 mg as U nivers 100 mg 6-17 needed. ity of tablet 09:23: [place] [address] Medical Branch omeprazole 2022-0 Yes 20mg Take 20 mg [facility] nivers 20 mg 6-17 by mouth ity of capsule 09:23: daily. [place] [address] Takes 2 Medical tablets Branch daily sildenafiL 2022-0 Yes 100mg 100 mg as U nivers 100 mg 6-17 needed. ity of tablet 09:23: [place] [address] Medical Branch omeprazole 2022-0 Yes 20mg Take 20 mg [facility] nivers 20 mg 6-17 by mouth ity of capsule 09:23: daily. [place] [address] Takes 2 Medical tablets Branch daily sildenafiL 2022-0 Yes 100mg 100 mg as U nivers 100 mg 6-17 needed. ity of tablet 09:23: [address] omeprazole 2022-0 Yes 20mg Take 20 mg U nivers 20 mg 6-17 by mouth ity of capsule 09:23: daily. [place] [address] Takes 2 Medical tablets Branch daily sildenafiL 2022-0 Yes 100mg 100 mg as U nivers 100 mg 6-17 needed. ity of tablet 09:23: [address] Branch omeprazole 2022-0 Yes 20mg Take 20 mg U nivers 20 mg 6-17 by mouth ity of capsule 09:23: daily. [place] [address] Takes 2 Medical tablets Branch daily sildenafiL 2022-0 Yes 100mg 100 mg as U nivers 100 mg 6-17 needed. ity of tablet 09:23: [address] omeprazole 2022-0 Yes 20mg Take 20 mg [facility] nivers 20 mg 6-17 by mouth ity of capsule 09:23: daily. [place] [address] Takes 2 Medical tablets Branch daily sildenafiL 2022-0 Yes 100mg 100 mg as U nivers 100 mg 6-17 needed. ity of tablet 09:23: [address] omeprazole 2022-0 Yes 20mg Take 20 mg [facility] nivers 20 mg 6-17 by mouth ity of capsule 09:23: daily. [place] [address] Takes 2 Medical tablets Branch daily sildenafiL 2022-0 Yes 100mg 100 mg as U nivers 100 mg 6-17 needed. ity of tablet 09:23: [address] omeprazole 2022-0 Yes 20mg Take 20 mg [facility] nivers 20 mg 6-17 by mouth ity of capsule 09:23: daily. [place] [address] Takes 2 Medical tablets Branch daily sildenafiL 2022-0 Yes 100mg 100 mg as U nivers 100 mg 6-17 needed. ity of tablet 09:23: [address] Branch omeprazole 2022-0 Yes 20mg Take 20 mg [facility] nivers 20 mg 6-17 by mouth ity of capsule 09:23: daily. [place] [address] Takes 2 Medical tablets Branch daily sildenafiL 2022-0 Yes 100mg 100 mg as U nivers 100 mg 6-17 needed. ity of tablet 09:23: [address] Branch omeprazole 2022-0 Yes 20mg Take 20 mg [facility] nivers 20 mg 6-17 by mouth ity of capsule 09:23: daily. [place] [address] Takes 2 Medical tablets Branch daily sildenafiL 2022-0 Yes 100mg 100 mg as U nivers 100 mg 6-17 needed. ity of tablet 09:23: [address] omeprazole 2022-0 Yes 20mg Take 20 mg [facility] nivers 20 mg 6-17 by mouth ity of capsule 09:23: daily. [place] [address] Takes 2 Medical tablets Branch daily sildenafiL 2022-0 Yes 100mg 100 mg as U nivers 100 mg 6-17 needed. ity of tablet 09:23: [address] omeprazole 2022-0 Yes 20mg Take 20 mg [facility] nivers 20 mg 6-17 by mouth ity of capsule 09:23: daily. [place] [address] Takes 2 Medical tablets Branch daily sildenafiL 2022-0 Yes 100mg 100 mg as U nivers 100 mg 6-17 needed. ity of tablet 09:23: [address] omeprazole 2022-0 Yes 20mg Take 20 mg [facility] nivers 20 mg 6-17 by mouth ity of capsule 09:23: daily. [place] [address] Takes 2 Medical tablets Branch daily sildenafiL 2-0 Yes 100mg 100 mg as U nivers 100 mg 6-17 needed. ity of tablet 09:23: [address] omeprazole 2022-0 Yes 20mg Take 20 mg [facility] nivers 20 mg 6-17 by mouth ity of capsule 09:23: daily. [place] [address] Takes 2 Medical tablets Branch daily sildenafiL 2022-0 Yes 100mg 100 mg as U nivers 100 mg 6-17 needed. ity of tablet 09:23: [address] omeprazole 2022-0 Yes 20mg Take 20 mg [facility] nivers 20 mg 6-17 by mouth ity of capsule 09:23: daily. [place] [address] Takes 2 Medical tablets Branch daily sildenafiL 2022-0 Yes 100mg 100 mg as U nivers 100 mg 6-17 needed. ity of tablet 09:23: [address] omeprazole 2022-0 Yes 20mg Take 20 mg U nivers 20 mg 6-17 by mouth ity of capsule 09:23: daily. [place] [address] Takes 2 Medical tablets Branch daily ferrous [...] iron) 09 daily. Medical tablet Branch ferrous 2-0 Yes 325mg Take 325 [...] daily. Medical tablet Branch doxepin 10 Yes [id number] 10mg Take 1 U nivers mg capsule 6-10 capsule by ity of 00:00: mouth at [place] 00 bedtime. Medical Branch lipase-prot Yes [id number] 1{capsu Take 1 [facility] ease-amylas 6-10 le} capsule by it y of e (CREON) 00:00: mouth 3 [place] 6,000-19,00 00 (three) Medic al 0 -30,000 times Branch unit daily with capsule meals. telmisartan Yes [id number] 1{tbl} Take 1 [facility] -hydrochlor 6-10 tablet by ity of othiazide 00:00: mouth [place] 80-25 mg 00 daily. Medical per tablet Branch doxepin 10 Yes [id number] 10mg Take 1 U nivers mg capsule 6-10 capsule by ity of 00:00: mouth at [place] 00 bedtime. Medical Branch lipase-prot Yes [id number] 1{capsu Take 1 [facility] ease-amylas 6-10 le} capsule by it y of e (CREON) 00:00: mouth 3 [place] 6,000-19 00 (three) Medic al 0 -30,000 times Branch unit daily with capsule meals. telmisartan Yes [id number] 1{tbl} Take 1 [facility] -hydrochlor 6-10 tablet by ity of othiazide 00:00: mouth [place] 80-25 mg 00 daily. Medical per tablet Branch doxepin 10 Yes [id number] 10mg Take 1 U nivers mg capsule 6-10 capsule by ity of 00:00: mouth at [place] 00 bedtime. Medical Branch lipase-prot Yes [id number] 1{capsu Take 1 [facility] ease-amylas 6-10 le} capsule by it y of e (CREON) 00:00: mouth 3 [place] ,- 00 (three) Medic al 0 -30,000 times Branch unit daily with capsule meals. telmisartan Yes [id number] 1{tbl} Take 1 [facility] -hydrochlor 6-10 tablet by ity of othiazide 00:00: mouth [place] 80-25 mg 00 daily. Medical per tablet Branch doxepin 10 Yes [id number] 10mg Take 1 U nivers mg capsule 6-10 capsule by ity of 00:00: mouth at [place] 00 bedtime. Medical Branch lipase-prot Yes [id number] 1{capsu Take 1 [facility] ease-amylas 6-10 le} capsule by it y of e (CREON) 00:00: mouth 3 [place] 6,- 00 (three) Medic al 0 -30,000 times Branch unit daily with capsule meals. doxepin 10 Yes [id number] 10mg Take 1 [facility] mg capsule 6-10 capsule by [facility] of 00:00: mouth at [place] 00 bedtime. Medical Branch lipase-prot Yes [id number] 1{capsu Take 1 [facility] ease-amylas 6-10 le} capsule by it y of e (CREON) 00:00: mouth 3 - 00 (three) Medic al 0 -30,000 times Branch unit daily with capsule meals. doxepin 10 Yes [id number] 10mg Take 1 [facility] mg capsule 6-10 capsule by ity of 00:00: mouth at [place] 00 bedtime. Medical Branch lipase-prot Yes [id number] 1{capsu Take 1 [facility] ease-amylas 6-10 le} capsule by it y of e (CREON) 00:00: mouth 3 - 00 (three) Medic al 0 -30,000 times Branch unit daily with capsule meals. doxepin 10 Yes [id number] 10mg Take 1 [facility] mg capsule 6-10 capsule by ity of 00:00: mouth at [place] 00 bedtime. Medical Branch lipase-prot Yes [id number] 1{capsu Take 1 [facility] ease-amylas 6-10 le} capsule by it y of e (CREON) 00:00: mouth 3 - 00 (three) Medic al 0 -30,000 times Branch unit daily with capsule meals. doxepin 10 Yes [id number] 10mg Take 1 [facility] mg capsule 6-10 capsule by ity of 00:00: mouth at [place] 00 bedtime. Medical Branch lipase-prot Yes [id number] 1{capsu Take 1 [facility] ease-amylas 6-10 le} capsule by it y of e (CREON) 00:00: mouth 3 - 00 (three) Medic al 0 -30,000 times Branch unit daily with capsule meals. doxepin 10 Yes [id number] 10mg Take 1 [facility] mg capsule 6-10 capsule by ity of 00:00: mouth at [place] 00 bedtime. Medical Branch lipase-prot Yes [id number] 1{capsu Take 1 [facility] ease-amylas 6-10 le} capsule by it y of e (CREON) 00:00: mouth 3 [place] 6,000-, 00 (three) Medic al 0 -30,000 times Branch unit daily with capsule meals. doxepin 10 2021- Yes [id number] 10mg Take 1 [facility] mg capsule 6-10 capsule by ity of 00:00: mouth at [place] 00 bedtime. Medical Branch lipase-prot 2021-0 Yes [id number] 1{capsu Take 1 [facility] ease-[facility] 6-10 le} capsule by it y of e (CREON) 00:00: mouth 3 [place] 6,000-, 00 (three) Medic al 0 -30,000 times Branch unit daily with capsule meals. doxepin 10 Yes [id number] 10mg Take 1 [facility] mg capsule 6-10 capsule by ity of 00:00: mouth at [place] 00 bedtime. Medical Branch lipase-prot Yes [id number] 1{capsu Take 1 [facility] ease-amylas 6-10 le} capsule by it y of e (CREON) 00:00: mouth 3 [place] 6,000- 00 (three) Medic al 0 -30,000 times Branch unit daily with capsule meals. lipase-prot 2021- Yes [id number] 1{capsu Take 1 [facility] ease-[facility] 6-10 le} capsule by it y of e (CREON) 00:00: mouth 3 [place] 6,000-, 00 (three) Medic al 0 -30,000 times Branch unit daily with capsule meals. lipase-prot 0 Yes [id number] 1{capsu Take 1 [facility] ease-amyl[facility] 6-10 le} capsule by it y of e (CREON) 00:00: mouth 3 [place] 6,000-, 00 (three) Medic al 0 -30,000 times Branch unit daily with capsule meals. lipase-prot 2021-0 Yes [id number] 1{capsu Take 1 [facility] ease-[facility] 6-10 le} capsule by it y of e (CREON) 00:00: mouth 3 [place] 6,000-, 00 (three) Medic al 0 -30,000 times Branch unit daily with capsule meals. lipase-prot Yes [id number] 1{capsu Take 1 [facility] ease-amyl[facility] 6-10 le} capsule by it y of e (CREON) 00:00: mouth 3 [place] 6,000-19,00 00 (three) Medic al 0 -30,000 times Branch unit daily with capsule meals. lipase-prot Yes [id number] 1{capsu Take 1 [facility] ease-[facility] 6-10 le} capsule by it y of e (CREON) 00:00: mouth 3 [place] 6,000-19, 00 (three) Medic al 0 -30,000 times Branch unit daily with capsule meals. lipase-prot Yes [id number] 1{capsu Take 1 [facility] ease-amylas 6-10 le} capsule by it y of e (CREON) 00:00: mouth 3 [place] 6,000-19, 00 (three) Medic al 0 -30,000 times Branch unit daily with capsule meals. lipase-prot 2021- No [id number] 1{capsu Take 1 [facility] ease-[facility] 6-10 11-11 le} capsule by i ty of e (CREON) 00:00: 00:00 mouth 3 [place] ,000-19,00 00 :00 (three) Medic al 0 -30,000 times Branch unit daily with capsule meals. lipase-prot 2021- No [id number] 1{capsu Take 1 [facility] ease-amylas 6-10 11-11 le} capsule by i ty of e (CREON) 00:00: 00:00 mouth 3 [place] ,000-,00 00 :00 (three) Medic al 0 -30,000 times Branch unit daily with capsule meals. doxepin 10 2021- No [id number] 10mg Take 1 [facility] mg capsule 6-10 10-18 capsule by it y of 00:00: 00:00 mouth at [place] 00 :00 bedtime. Medical Branch doxepin 10 2021- No [id number] 10mg Take 1 [facility] mg capsule 6-10 10-18 capsule by it y of 00:00: 00:00 mouth at [place] 00 :00 bedtime. Medical Branch telmisartan 2021- No [id number] 1{tbl} Take 1 [facility] -hydrochlor 6-10 08-22 tablet by it y of othiazide 00:00: 00:00 mouth [place] 80-25 mg 00 :00 daily. Medical per tablet Branch ondansetron 2021-0 Yes [id number] 4mg Take 1 [facility] 4 mg 5-27 tablet by ity of disintegrat 00:00: mouth [place] ing tablet 00 every 8 Medica l (eight) Branch hours as needed for Nausea and Vomiting (N/V). ondansetron 2021-0 Yes [id number] 4mg Take 1 [facility] 4 mg 5-27 tablet by ity of disintegrat 00:00: mouth [place] ing tablet 00 every 8 Medica l (eight) Branch hours as needed for Nausea and Vomiting (N/V). ondansetron 0 Yes [id number] 4mg Take 1 [facility] 4 mg 5-27 tablet by ity of disintegrat 00:00: mouth [place] ing tablet 00 every 8 Medica l (eight) Branch hours as needed for Nausea and Vomiting (N/V). ondansetron 2021-0 Yes [id number] 4mg Take 1 [facility] 4 mg 5-27 tablet by ity of disintegrat 00:00: mouth [place] ing tablet 00 every 8 Medica l (eight) Branch hours as needed for Nausea and Vomiting (N/V). ondansetron 2021-0 Yes [id number] 4mg Take 1 [facility] 4 mg 5-27 tablet by ity of disintegrat 00:00: mouth [place] ing tablet 00 every 8 Medica l (eight) Branch hours as needed for Nausea and Vomiting (N/V). ondansetron 2021-0 Yes [id number] 4mg Take 1 [facility] 4 mg 5-27 tablet by ity of disintegrat 00:00: mouth [place] ing tablet 00 every 8 Medica l (eight) Branch hours as needed for Nausea and Vomiting (N/V). ondansetron 2021-0 Yes [id number] 4mg Take 1 [facility] 4 mg 5-27 tablet by ity of disintegrat 00:00: mouth [place] ing tablet 00 every 8 Medica l (eight) Branch hours as needed for Nausea and Vomiting (N/V). ondansetron 2021-0 Yes [id number] 4mg Take 1 [facility] 4 mg 5-27 tablet by ity of disintegrat 00:00: mouth [place] ing tablet 00 every 8 Medica l (eight) Branch hours as needed for Nausea and Vomiting (N/V). ondansetron 2-0 Yes [id number] 4mg Take 1 [facility] 4 mg 5-27 tablet by ity of disintegrat 00:00: mouth [place] ing tablet 00 every 8 Medica l (eight) Branch hours as needed for Nausea and Vomiting (N/V). ondansetron 2-0 Yes [id number] 4mg Take 1 [facility] 4 mg 5-27 tablet by ity of disintegrat 00:00: mouth [place] ing tablet 00 every 8 Medica l (eight) Branch hours as needed for Nausea and Vomiting (N/V). ondansetron 2-0 Yes [id number] 4mg Take 1 [facility] 4 mg 5-27 tablet by ity of disintegrat 00:00: mouth [place] ing tablet 00 every 8 Medica l (eight) Branch hours as needed for Nausea and Vomiting (N/V). ondansetron 2021-0 Yes [id number] 4mg Take 1 [facility] 4 mg 5-27 tablet by ity of disintegrat 00:00: mouth [place] ing tablet 00 every 8 Medica l (eight) Branch hours as needed for Nausea and Vomiting (N/V). ondansetron 2-0 Yes [id number] 4mg Take 1 [facility] 4 mg 5-27 tablet by ity of disintegrat 00:00: mouth [place] ing tablet 00 every 8 Medica l (eight) Branch hours as needed for Nausea and Vomiting (N/V). ondansetron 2-0 Yes [id number] 4mg Take 1 [facility] 4 mg 5-27 tablet by ity of disintegrat 00:00: mouth [place] ing tablet 00 every 8 Medica l (eight) Branch hours as needed for Nausea and Vomiting (N/V). ondansetron 2-0 Yes [id number] 4mg Take 1 [facility] 4 mg 5-27 tablet by ity of disintegrat 00:00: mouth [place] ing tablet 00 every 8 Medica l (eight) Branch hours as needed for Nausea and Vomiting (N/V). ondansetron 2-0 Yes [id number] 4mg Take 1 [facility] 4 mg 5-27 tablet by ity of disintegrat 00:00: mouth [place] ing tablet 00 every 8 Medica l (eight) Branch hours as needed for Nausea and Vomiting (N/V). ondansetron Yes [id number] 4mg Take 1 [facility] 4 mg 5-27 tablet by ity of disintegrat 00:00: mouth [place] ing tablet 00 every 8 Medica l (eight) Branch hours as needed for Nausea and Vomiting (N/V). ondansetron Yes [id number] 4mg Take 1 [facility] 4 mg 5-27 tablet by ity of disintegrat 00:00: mouth [place] ing tablet 00 every 8 Medica l (eight) Branch hours as needed for Nausea and Vomiting (N/V). ondansetron Yes [id number] 4mg Take 1 [facility] 4 mg 5-27 tablet by ity of disintegrat 00:00: mouth [place] ing tablet 00 every 8 Medica l (eight) Branch hours as needed for Nausea and Vomiting (N/V). ondansetron Yes [id number] 4mg Take 1 [facility] 4 mg 5-27 tablet by ity of disintegrat 00:00: mouth [place] ing tablet 00 every 8 Medica l (eight) Branch hours as needed for Nausea and Vomiting (N/V). ondansetron 2021- No [id number] 4mg Take 1 [facility] 4 mg 5-27 11-18 tablet by [facility] of disintegrat 00:00: 00:[place] mouth [place] tablet 00 :00 every 8 Medica l (eight) Branch hours as needed for Nausea and Vomiting (N/V). ondansetron 2021- No [id number] 4mg Take 1 [facility] 4 mg 5-27 11-18 tablet by [facility]y of disintegrat 00:00: 00:00 mouth [place] tablet 00 :00 every 8 Medica l (eight) Branch hours as needed for Nausea and Vomiting (N/V). ondansetron 2021- No [id number] 4mg Take 1 [facility] 4 mg 5-27 11-18 tablet by [facility]y of disintegrat 00:00: 00:00 mouth [place] tablet 00 :00 every 8 Medica l (eight) Branch hours as needed for Nausea and Vomiting (N/V). ondansetron 2021- No [id number] 4mg Take 1 [facility] 4 mg 5-27 11-18 tablet by [facility]y of disintegrat 00:00: 00:[place] mouth [place] tablet 00 :00 every 8 Medica l (eight) Branch hours as needed for Nausea and Vomiting (N/V). ondansetron 2021- No [id number] 4mg Take 1 [facility] 4 mg 5-27 11-18 tablet by [facility]y of disintegrat 00:00: 00:00 mouth [place] tablet 00 :00 every 8 Medica l (eight) Branch hours as needed for Nausea and Vomiting (N/V). meclizine Yes [id number] 25mg Take 1 [facility] 25 mg 5-18 tablet by ity of tablet 00:00: mouth 3 (three) Medical times Branch daily as needed for Dizziness. meclizine Yes [id number] 25mg Take 1 [facility] 25 mg 5-18 tablet by ity of tablet 00:00: mouth (three) Medical times Branch daily as needed for Dizziness. meclizine Yes [id number] 25mg Take 1 [facility] 25 mg 5-18 tablet by ity of tablet 00:00: mouth 3 (three) Medical times Branch daily as needed for Dizziness. meclizine Yes [id number] 25mg Take 1 [facility] 25 mg 5-18 tablet by ity of tablet 00:00: mouth 3 (three) Medical times Branch daily as needed for Dizziness. meclizine Yes [id number] 25mg Take 1 [facility] 25 mg 5-18 tablet by ity of tablet 00:00: mouth 3 (three) Medical times Branch daily as needed for Dizziness. meclizine 0 Yes [id number] 25mg Take 1 [facility] 25 mg 5-18 tablet by ity of tablet 00:00: mouth 3 (three) Medical times Branch daily as needed for Dizziness. meclizine 0 Yes [id number] 25mg Take 1 [facility] 25 mg 5-18 tablet by ity of tablet 00:00: mouth 3 (three) Medical times Branch daily as needed for Dizziness. meclizine 2022-0 Yes [id number] 25mg Take 1 [facility] 25 mg 5-18 tablet by ity of tablet 00:00: mouth 3 (three) Medical times Branch daily as needed for Dizziness. meclizine 2021-0 Yes [id number] 25mg Take 1 [facility] 25 mg 5-18 tablet by ity of tablet 00:00: mouth 3 (three) Medical times Branch daily as needed for Dizziness. meclizine 2021-0 Yes [id number] 25mg Take 1 [facility] 25 mg 5-18 tablet by ity of tablet 00:00: mouth (three) Medical times Branch daily as needed for Dizziness. meclizine 2021-0 Yes [id number] 25mg Take 1 [facility] 25 mg 5-18 tablet by ity of tablet 00:00: mouth (three) Medical times Branch daily as needed for Dizziness. meclizine 2021-0 Yes [id number] 25mg Take 1 [facility] 25 mg 5-18 tablet by ity of tablet 00:00: mouth (three) Medical times Branch daily as needed for Dizziness. meclizine 0 Yes [id number] 25mg Take 1 [facility] 25 mg 5-18 tablet by ity of tablet 00:00: mouth (three) Medical times Branch daily as needed for Dizziness. meclizine 2021-0 Yes [id number] 25mg Take 1 [facility] 25 mg 5-18 tablet by ity of tablet 00:00: mouth (three) Medical times Branch daily as needed for Dizziness. meclizine 2021-0 Yes [id number] 25mg Take 1 [facility] 25 mg 5-18 tablet by ity of tablet 00:00: mouth 3 (three) Medical times Branch daily as needed for Dizziness. meclizine 2021-0 Yes [id number] 25mg Take 1 [facility] 25 mg 5-18 tablet by ity of tablet 00:00: mouth 3 (three) Medical times Branch daily as needed for Dizziness. meclizine 2021-0 Yes [id number] 25mg Take 1 [facility] 25 mg 5-18 tablet by ity of tablet 00:00: mouth 3 (three) Medical times Branch daily as needed for Dizziness. meclizine 2021-0 Yes [id number] 25mg Take 1 [facility] 25 mg 5-18 tablet by ity of tablet 00:00: mouth (three) Medical times Branch daily as needed for Dizziness. meclizine 2021-0 Yes [id number] 25mg Take 1 [facility] 25 mg 5-18 tablet by ity of tablet 00:00: mouth 3 (three) Medical times Branch daily as needed for Dizziness. meclizine 2021-0 Yes [id number] 25mg Take 1 [facility] 25 mg 5-18 tablet by ity of tablet 00:00: mouth (three) Medical times Branch daily as needed for Dizziness. meclizine 2021-0 Yes [id number] 25mg Take 1 [facility] 25 mg 5-18 tablet by ity of tablet 00:00: mouth (three) Medical times Branch daily as needed for Dizziness. meclizine 2021-0 Yes [id number] 25mg Take 1 [facility] 25 mg 5-18 tablet by ity of tablet 00:00: mouth (three) Medical times Branch daily as needed for Dizziness. meclizine 2021-0 Yes [id number] 25mg Take 1 [facility] 25 mg 5-18 tablet by ity of tablet 00:00: mouth (three) Medical times Branch daily as needed for Dizziness. meclizine 2021-0 Yes [id number] 25mg Take 1 [facility] 25 mg 5-18 tablet by ity of tablet 00:00: mouth (three) Medical times Branch daily as needed for Dizziness. meclizine 2021-0 Yes [id number] 25mg Take 1 [facility] 25 mg 5-18 tablet by ity of tablet 00:00: mouth (three) Medical times Branch daily as needed for Dizziness. meclizine 2021-0 Yes [id number] 25mg Take 1 [facility] 25 mg 5-18 tablet by ity of tablet 00:00: mouth 3 (three) Medical times Branch daily as needed for Dizziness. meclizine 2021-0 Yes [id number] 25mg Take 1 [facility] 25 mg 5-18 tablet by ity of tablet 00:00: mouth (three) Medical times Branch daily as needed for Dizziness. meclizine 2021-0 Yes [id number] 25mg Take 1 [facility] 25 mg 5-18 tablet by ity of tablet 00:00: mouth 3 (three) Medical times Branch daily as needed for Dizziness. meclizine 2021-0 Yes [id number] 25mg Take 1 [facility] 25 mg 5-18 tablet by ity of tablet 00:00: mouth 3 (three) Medical times Branch daily as needed for Dizziness. meclizine 2021-0 Yes [id number] 25mg Take 1 [facility] 25 mg 5-18 tablet by ity of tablet 00:00: mouth (three) Medical times Branch daily as needed for Dizziness. meclizine 2021-0 Yes [id number] 25mg Take 1 [facility] 25 mg 5-18 tablet by ity of tablet 00:00: mouth 3 (three) Medical times Branch daily as needed for Dizziness. meclizine 2021-0 Yes [id number] 25mg Take 1 [facility] 25 mg 5-18 tablet by ity of tablet 00:00: mouth (three) Medical times Branch daily as needed for Dizziness. meclizine 2021-0 Yes [id number] 25mg Take 1 [facility] 25 mg 5-18 tablet by ity of tablet 00:00: mouth (three) Medical times Branch daily as needed for Dizziness. meclizine 2021-0 Yes [id number] 25mg Take 1 [facility] 25 mg 5-18 tablet by ity of tablet 00:00: mouth (three) Medical times Branch daily as needed for Dizziness. meclizine 2021-0 Yes [id number] 25mg Take 1 [facility] 25 mg 5-18 tablet by [facility]y of tablet 00:00: mouth 3 (three) Medical times Branch daily as needed for Dizziness. meclizine 2021-0 Yes [id number] 25mg Take 1 [facility] 25 mg 5-18 tablet by ity of tablet 00:00: mouth 3 (three) Medical times Branch daily as needed for Dizziness. meclizine 2021-0 Yes [id number] 25mg Take 1 [facility] 25 mg 5-18 tablet by ity of tablet 00:00: mouth 3 (three) Medical times Branch daily as needed for Dizziness. meclizine 2021-0 Yes [id number] 25mg Take 1 [facility] 25 mg 5-18 tablet by ity of tablet 00:00: mouth 3 (three) Medical times Branch daily as needed for Dizziness. meclizine 2021-0 Yes [id number] 25mg Take 1 [facility] 25 mg 5-18 tablet by [facility]y of tablet 00:00: mouth (three) Medical times Branch daily as needed for Dizziness. meclizine 2021-0 Yes [id number] 25mg Take 1 [facility] 25 mg 5-18 tablet by [facility]y of tablet 00:00: mouth (three) Medical times Branch daily as needed for Dizziness. meclizine 2021-0 Yes [id number] 25mg Take 1 [facility] 25 mg 5-18 tablet by ity of tablet 00:00: mouth (three) Medical times Branch daily as needed for Dizziness. meclizine 2021-0 Yes [id number] 25mg Take 1 [facility] 25 mg 5-18 tablet by [facility]y of tablet 00:00: mouth (three) Medical times Branch daily as needed for Dizziness. meclizine 2021-0 Yes [id number] 25mg Take 1 [facility] 25 mg 5-18 tablet by [facility]y of tablet 00:00: mouth 3 (three) Medical times Branch daily as needed for Dizziness. meclizine 2021-0 Yes [id number] 25mg Take 1 [facility] 25 mg 5-18 tablet by [facility]y of tablet 00:00: mouth (three) Medical times Branch daily as needed for Dizziness. meclizine 2021-0 Yes [id number] 25mg Take 1 [facility] 25 mg 5-18 tablet by [facility]y of tablet 00:00: mouth 3 (three) Medical times Branch daily as needed for Dizziness. meclizine 2021-0 Yes [id number] 25mg Take 1 [facility] 25 mg 5-18 tablet by [facility] of tablet 00:00: mouth 3 (three) Medical times Branch daily as needed for Dizziness. meclizine 2021-0 Yes [id number] 25mg Take 1 [facility] 25 mg 5-18 tablet by [facility]y of tablet 00:00: mouth 3 (three) Medical times Branch daily as needed for Dizziness. meclizine 2021-0 Yes [id number] 25mg Take 1 [facility] 25 mg 5-18 tablet by [facility]y of tablet 00:00: mouth 3 (three) Medical times Branch daily as needed for Dizziness. meclizine 2021-0 Yes [id number] 25mg Take 1 [facility] 25 mg 5-18 tablet by [facility]y of tablet 00:00: mouth 3 (three) Medical times Branch daily as needed for Dizziness. meclizine 2021-0 Yes [id number] 25mg Take 1 [facility] 25 mg 5-18 tablet by [facility]y of tablet 00:00: mouth (three) Medical times Branch daily as needed for Dizziness. meclizine 2021-0 Yes [id number] 25mg Take 1 [facility] 25 mg 5-18 tablet by [facility]y of tablet 00:00: mouth (three) Medical times Branch daily as needed for Dizziness. meclizine 2021-0 Yes [id number] 25mg Take 1 [facility] 25 mg 5-18 tablet by [facility]y of tablet 00:00: mouth (three) Medical times Branch daily as needed for Dizziness. meclizine 2021-0 Yes [id number] 25mg Take 1 [facility] 25 mg 5-18 tablet by [facility]y of tablet 00:00: mouth 3 (three) Medical times Branch daily as needed for Dizziness. meclizine 2021-0 Yes [id number] 25mg Take 1 [facility] 25 mg 5-18 tablet by [facility]y of tablet 00:00: mouth (three) Medical times Branch daily as needed for Dizziness. meclizine 2021-0 Yes [id number] 25mg Take 1 [facility] 25 mg 5-18 tablet by [facility]y of tablet 00:00: mouth 3 (three) Medical times Branch daily as needed for Dizziness. meclizine 2021-0 Yes [id number] 25mg Take 1 [facility] 25 mg 5-18 tablet by [facility]y of tablet 00:00: mouth 3 (three) Medical times Branch daily as needed for Dizziness. meclizine 2021-0 Yes [id number] 25mg Take 1 [facility] 25 mg 5-18 tablet by [facility] of tablet 00:00: mouth 3 (three) Medical times Branch daily as needed for Dizziness. meclizine 2022-0 Yes [id number] 25mg Take 1 [facility] 25 mg 5-18 tablet by [facility]y of tablet 00:00: mouth 3 (three) Medical times Branch daily as needed for Dizziness. meclizine 2022-0 Yes [id number] 25mg Take 1 [facility] 25 mg 5-18 tablet by [facility]y of tablet 00:00: mouth 3 (three) Medical times Branch daily as needed for Dizziness. meclizine 2022-0 Yes [id number] 25mg Take 1 [facility] 25 mg 5-18 tablet by [facility]y of tablet 00:00: mouth 3 (three) Medical times Branch daily as needed for Dizziness. meclizine 2022-0 Yes [id number] 25mg Take 1 [facility] 25 mg 5-18 tablet by [facility]y of tablet 00:00: mouth 3 (three) Medical times Branch daily as needed for Dizziness. meclizine 2-0 Yes [id number] 25mg Take 1 [facility] 25 mg 5-18 tablet by [facility]y of tablet 00:00: mouth 3 (three) Medical times Branch daily as needed for Dizziness. meclizine 2-0 Yes [id number] 25mg Take 1 [facility] 25 mg 5-18 tablet by [facility]y of tablet 00:00: mouth 3 (three) Medical times Branch daily as needed for Dizziness. Blood-Gluco 2022-0 Yes [id number] Use as [facility] se 5-04 directed ity of Transmitter 00:00: [place] (DEXCOM G6 00 Medical TRANSMITTER Branch ) [place] Blood-Gluco 2022-0 Yes [id number] Use as [facility] se 5-04 directed ity of Transmitter 00:00: [place] (DEXCOM G6 00 Medical TRANSMITTER Branch ) [place] Blood-Gluco 2022-0 Yes [id number] Use as [facility] se 5-04 directed ity of Transmitter 00:00: [place] (DEXCOM G6 00 Medical TRANSMITTER Branch ) [place] Blood-Gluco 2022-0 Yes [id number] Use as [facility] se 5-04 directed ity of Transmitter 00:00: [place] (DEXCOM G6 00 Medical TRANSMITTER Branch ) [place] Blood-Gluco 2022-0 Yes [id number] Use as [facility] se 5-04 directed ity of Transmitter 00:00: [place] (DEXCOM G6 00 Medical TRANSMITTER Branch ) [place] Blood-Gluco 2022-0 Yes [id number] Use as [facility] se 5-04 directed ity of Transmitter 00:00: [place] (DEXCOM G6 00 Medical TRANSMITTER Branch ) [place] Blood-Gluco 2022-0 Yes [id number] Use as [facility] se 5-04 directed ity of Transmitter 00:00: [place] (DEXCOM G6 00 Medical TRANSMITTER Branch ) [place] Blood-Gluco 2022-0 Yes [id number] Use as [facility] se 5-04 directed ity of Transmitter 00:00: [place] (DEXCOM G6 00 Medical TRANSMITTER Branch ) [place] Blood-Gluco 2022-0 Yes [id number] Use as [facility] se 5-04 directed ity of Transmitter 00:00: [place] (DEXCOM G6 00 Medical TRANSMITTER Branch ) [place] Blood-Gluco 2022-0 Yes [id number] Use as [facility] se 5-04 directed ity of Transmitter 00:00: [place] (DEXCOM G6 00 Medical TRANSMITTER Branch ) [place] Blood-Gluco 2022-0 Yes [id number] Use as [facility] se 5-04 directed ity of Transmitter 00:00: [place] (DEXCOM G6 00 Medical TRANSMITTER Branch ) [place] Blood-Gluco 2022-0 Yes [id number] Use as [facility] se 5-04 directed ity of Transmitter 00:00: [place] (DEXCOM G6 00 Medical TRANSMITTER Branch ) [place] Blood-Gluco 2022-0 Yes [id number] Use as [facility] se 5-04 directed ity of Transmitter 00:00: [place] (DEXCOM G6 00 Medical TRANSMITTER Branch ) [place] Blood-Gluco 2022-0 Yes [id number] Use as [facility] se 5-04 directed ity of Transmitter 00:00: [place] (DEXCOM G6 00 Medical TRANSMITTER Branch ) [place] Blood-Gluco 2022-0 Yes [id number] Use as [facility] se 5-04 directed ity of Transmitter 00:00: [place] (DEXCOM G6 00 Medical TRANSMITTER Branch ) [place] Blood-Gluco 2022-0 Yes [id number] Use as [facility] se 5-04 directed ity of Transmitter 00:00: [place] (DEXCOM G6 00 Medical TRANSMITTER Branch ) [place] Blood-Gluco 2022-0 Yes [id number] Use as [facility] se 5-04 directed ity of Transmitter 00:00: [place] (DEXCOM G6 00 Medical TRANSMITTER Branch ) [place] Blood-Gluco 2022-0 Yes [id number] Use as [facility] se 5-04 directed ity of Transmitter 00:00: [place] (DEXCOM G6 00 Medical TRANSMITTER Branch ) [place] Blood-Gluco 2022-0 Yes [id number] Use as [facility] se 5-04 directed ity of Transmitter 00:00: [place] (DEXCOM G6 00 Medical TRANSMITTER Branch ) [place] Blood-Gluco 2022-0 Yes [id number] Use as [facility] se 5-04 directed ity of Transmitter 00:00: [place] (DEXCOM G6 00 Medical TRANSMITTER Branch ) [place] Blood-Gluco 2022-0 Yes [id number] Use as [facility] se 5-04 directed ity of Transmitter 00:00: [place] (DEXCOM G6 00 Medical TRANSMITTER Branch ) [place] Blood-Gluco 2022-0 Yes [id number] Use as [facility] se 5-04 directed ity of Transmitter 00:00: [place] (DEXCOM G6 00 Medical TRANSMITTER Branch ) [place] Blood-Gluco 2022-0 Yes [id number] Use as [facility] se 5-04 directed ity of Transmitter 00:00: [place] (DEXCOM G6 00 Medical TRANSMITTER Branch ) [place] Blood-Gluco 2022-0 Yes [id number] Use as [facility] se 5-04 directed ity of Transmitter 00:00: [place] (DEXCOM G6 00 Medical TRANSMITTER Branch ) [place] Blood-Gluco 2022-0 Yes [id number] Use as [facility] se 5-04 directed ity of Transmitter 00:00: [place] (DEXCOM G6 00 Medical TRANSMITTER Branch ) [place] Blood-Gluco 2022-0 Yes [id number] Use as [facility] se 5-04 directed ity of Transmitter 00:00: [place] (DEXCOM G6 00 Medical TRANSMITTER Branch ) [place] Blood-Gluco 2022-0 Yes [id number] Use as [facility] se 5-04 directed ity of Transmitter 00:00: [place] (DEXCOM G6 00 Medical TRANSMITTER Branch ) [place] Blood-Gluco 2022-0 Yes [id number] Use as [facility] se 5-04 directed ity of Transmitter 00:00: [place] (DEXCOM G6 00 Medical TRANSMITTER Branch ) [place] Blood-Gluco 2022-0 Yes [id number] Use as [facility] se 5-04 directed ity of Transmitter 00:00: [place] (DEXCOM G6 00 Medical TRANSMITTER Branch ) [place] Blood-Gluco 2022-0 Yes [id number] Use as [facility] se 5-04 directed ity of Transmitter 00:00: [place] (DEXCOM G6 00 Medical TRANSMITTER Branch ) [place] Blood-Gluco 2022-0 Yes [id number] Use as Univers se 5-04 directed ity of Transmitter 00:00: [place] (DEXCOM G6 00 Medical TRANSMITTER Branch ) [place] Blood-Gluco 2022-0 Yes [id number] Use as Univers se 5-04 directed ity of Transmitter 00:00: [place] (DEXCOM G6 00 Medical TRANSMITTER Branch ) [place] Blood-[facility]uco 2022-0 Yes [id number] Use as Univers se 5-04 directed ity of Transmitter 00:00: [place] (DEXCOM G6 00 Medical TRANSMITTER Branch ) [place] Blood-Gluco 2022-0 Yes [id number] Use as Univers se 5-04 directed ity of Transmitter 00:00: [place] (DEXCOM G6 00 Medical TRANSMITTER Branch ) [place] Blood-[facility]uco 2022-0 Yes [id number] Use as Univers se 5-04 directed ity of Transmitter 00:00: [place] (DEXCOM G6 00 Medical TRANSMITTER Branch ) [place] Blood-[facility]uco 2022-0 Yes [id number] Use as Univers se 5-04 directed ity of Transmitter 00:00: [place] (DEXCOM G6 00 Medical TRANSMITTER Branch ) [place] Blood-[facility]uco 2022-0 Yes [id number] Use as Univers se 5-04 directed ity of Transmitter 00:00: [place] (DEXCOM G6 00 Medical TRANSMITTER Branch ) [place] Blood-[facility]uco 2022-0 Yes [id number] Use as Univers se 5-04 directed ity of Transmitter 00:00: [place] (DEXCOM G6 00 Medical TRANSMITTER Branch ) [place] Blood-Gluco 2022-0 Yes [id number] Use as Univers se 5-04 directed ity of Transmitter 00:00: [place] (DEXCOM G6 00 Medical TRANSMITTER Branch ) [place] Blood-[facility]uco 2022-0 2022- No [id number] Use as Univers se 5-04 12-29 directed ity of Transmitter 00:00: 00:00 [place] (DEXCOM G6 00 :00 Medical TRANSMITTER Branch ) [place] Immunizations Ordered Filled Immunization Date Status Comments Sour e Immunization Name Name Pneumococcal 2022-11-27 Completed Universit y of Conjugate, PCV20 00:00:00 [place] [facility] (Prevnar 20) Branch Pneumococcal 20 2022-11-27 Completed Universit y of Conjugate, PCV20 00:00:00 [place] [facility] (Prevnar 20) Branch Vital Signs Vital Name Observation Time Observation Value Comments Source Systolic blood 2022-11-27 16:52:00 125 mm[Hg] Univer sity of pressure [place] [facility] Diastolic blood 2022-11-27 16:52:00 82 mm[Hg] Unive rsity of pressure [place] [facility] Heart rate 2022-11-27 16:52:00 68 /min [facility] [place] [facility] Respiratory rate 2022-11-27 16:52:00 18 /min Univ ersity [facility] [place] [facility] Body height 2022-11-27 16:52:00 182.9 cm [facility] [place] [facility] Body weight 2022-11-27 16:52:00 103.874 kg [facility] [place] [facility] BMI 2022-11-27 16:52:00 31.06 kg/m2 [facility] [place] [facility] Oxygen saturation in 2022-11-27 16:52:00 98 /min University of Arterial blood by [place] [employer] [facility] Pulse oximetry Branch Systolic blood 2022-10-17 17:10:00 127 mm[Hg] Univer sity of pressure [place] [facility] Diastolic blood 2022-10-17 17:10:00 69 mm[Hg] Unive rsity of pressure [place] [facility] Heart rate 2022-10-17 17:10:00 82 /min [facility] [place] [facility] Body temperature 2022-10-17 17:10:00 36.72 Kayla [facility] [place] [facility] Respiratory rate 2022-10-17 17:10:00 18 /min Univ ers[facility] [place] [facility] Body height 2022-10-17 17:10:00 182.9 cm [facility] [place] [facility] Body weight 2022-10-17 17:10:00 104.599 kg [facility] [place] [facility] BMI 2022-10-17 17:10:00 31.27 kg/m2 [facility] [place] [facility] Oxygen saturation in 2022-10-17 17:10:00 96 /min University of Arterial blood by [employer] vidal Pulse oximetry Branch Systolic blood 2022-09-07 16:57:00 130 mm[Hg] Univer sity of pressure [place] [facility] Diastolic blood 2022-09-07 16:57:00 84 mm[Hg] Unive rsity of pressure [place] [facility] Heart rate 2022-09-07 16:55:00 77 /min [facility] [place] [facility] Body temperature 2022-09-07 16:55:00 36.11 Kayla [facility] ersity of [place] [facility] Respiratory rate 2022-09-07 16:55:00 18 /min Univ ers[facility] [place] [facility] Body height 2022-09-07 16:55:00 182.9 cm [facility] [place] [facility] Body weight 2022-09-07 16:55:00 106.006 kg [facility] [place] [facility] BMI 2022-09-07 16:55:00 31.70 kg/m2 [facility] [place] [facility] Oxygen saturation in 2022-09-07 16:55:00 97 /min University of Arterial blood by [place] [employer] [facility] oximetry Branch Systolic blood 2022-08-07 19:58:00 134 mm[Hg] Univer sity of pressure [place] [facility] Diastolic blood 2022-08-07 19:58:00 79 mm[Hg] [facility] [employer] Heart rate 2022-08-07 19:58:00 84 /min [facility] [place] [facility] Respiratory rate 2022-08-07 19:58:00 18 /min Univ ers[facility] [place] [facility] Body weight 2022-08-07 19:58:00 108.863 kg [facility] [place] [facility] BMI 2022-08-07 19:58:00 32.55 kg/m2 [facility] [place] [facility] Oxygen saturation in 2022-08-07 19:58:00 95 /min University of Arterial blood by [place] [employer] [facility]xim[facility] Branch HEIGHT 2022-07-17 14:15:00 [...] WEIGHT 2022-06-26 18:00:00 109.9 kg Systolic blood 2022-10-25 12:58:00 115 mm[Hg] [facility] Diastolic blood 2022-10-25 12:58:00 73 mm[Hg] [facility] Heart rate 2022-10-25 12:58:00 70 /min [facility] Body temperature 2022-10-25 12:58:00 36.5 Kayla [facility] Respiratory rate 2022-10-25 12:58:00 18 /min [facility] Body height 2022-10-25 12:58:00 182.9 cm [facility] Body weight 2022-10-25 12:58:00 100.245 kg [facility] BMI 2022-10-25 12:58:00 29.97 kg/m2 [facility] Oxygen saturation in 2022-10-25 12:58:00 99 /min [facility] Arterial blood by Medical Ce nter Pulse oximetry Body height 2022-08-14 11:00:00 182.9 cm [facility] Body weight 2022-08-14 11:00:00 109.77 kg [facility] BMI 2022-08-14 11:00:00 32.82 kg/m2 [facility] Systolic blood 2022-07-17 15:27:00 99 mm[Hg] [facility] Diastolic blood 2022-07-17 15:27:00 62 mm[Hg] [facility] Heart rate 2022-07-17 14:15:00 78 /min [facility] Body temperature 2022-07-17 14:15:00 36.61 [facility] Body height 2022-07-17 14:15:00 182.9 cm [facility] Body weight 2022-07-17 14:15:00 109.77 kg [facility] BMI 2022-07-17 14:15:00 32.82 kg/m2 [facility] Oxygen saturation in 2022-07-17 14:15:00 100 /min [facility] Arterial blood by Medical Ce nter Pulse oximetry Systolic blood 2022-07-02 08:10:00 130 mm[Hg] [facility] Diastolic blood 2022-07-02 08:10:00 70 mm[Hg] [facility] Heart rate 2022-07-02 08:10:00 80 /min [facility] Body temperature 2022-07-02 08:10:00 36.17 Kay[facility] Respiratory rate 2022-07-02 08:10:00 18 /min [facility] Oxygen saturation in 2022-07-02 08:10:00 100 /min [facility] Arterial blood by Medical Ce nter Pulse oximetry Body height 2022-06-30 09:20:00 182.9 cm [facility] Body weight 2022-06-30 09:20:00 109.9 kg [facility] BMI 2022-06-30 09:20:00 32.86 kg/m2 [facility] Procedures Procedure Date / Time Performing Source Performed Clinician PNEUMOCOCCAL 20 CONJUGATE (PREVNAR 2022-11-27 Dandre Jameson [place] [id number]) VACCINE 18:16:25 [facility] DISABILITY/FMLA 2022-11-20 [facility] 06:01:00 Unassigned, No [facility] BASIC METABOLIC PANEL 2022-10-25 Jaylin Millard [facility] 13:40:00 [facility] HEPATIC FUNCTION PANEL 2022-10-25 [facility] 13:40:00 [facility] CBC W/PLT COUNT & AUTO 2022-10-[address] [facility] DIFFERENTIAL 13:40:00 [facility] PROTHROMBIN TIME/INR 2022-10-25 Jaylin Millard [facility] 13:40:00 [facility] ALPHA FETOPROTEIN (AFP), TUMOR 2022-10-25 Jaylin Millardkes MARKER 13:40:00 [facility] CBC W/PLT COUNT & AUTO 2022-10-[address] [facility] DIFFERENTIAL 13:40:00 [facility] MISCELLANEOUS LAB ORDER 2022-10-[address] [facility] 13:40:00 [facility] DISABILITY/FMLA 2022-10-23 [facility] 06:01:00 Unassigned, No [facility] Name Branch POCT-GLUCOSE METER 2022-10-12 Aamir, Melly [facility] 15:53:00 [facility] POCT-GLUCOSE METER 2022-10-12 Aamir, Melly [facility] 11:59:00 [facility] POCT-GLUCOSE METER 2022-10-12 Aamir, Melly [facility] 06:43:00 [facility] HEPATIC FUNCTION PANEL 2022-10-[address] [facility] 04:43:00 [facility] REPORT OF PROCEDURE - ENDOSCOPY 2022-10-[address] [facility] URL 17:53:04 [facility] EGD (ESOPHAGOGASTRODUODENOSCOPY) 2022-10-[address] [facility] 17:17:00 [facility] POCT-GLUCOSE METER 2022-10-11 Aamir, Melly [facility] 15:49:00 [facility] POCT-GLUCOSE METER 2022-10-11 Aamir, Melly [facility] 14:42:00 [facility] POCT-GLUCOSE METER 2022-10-11 Aamir, Melly [facility] 06:46:[address] [facility] [address] ABDOMEN/PELVIS WITHOUT IV 2022-10-11 Aamir, Melly [facility] CONTRAST 00:07:00 [facility] POCT-GLUCOSE METER 2022-10-10 Aamir, Melly [facility] 21:07:00 [facility] CBC W/PLT COUNT & AUTO 2022-10-10 Aamir, [facility] DIFFERENTIAL 15:24:00 [facility] BASIC METABOLIC PANEL 2022-10-10 Aamir, [facility] 15:24:00 [facility] CBC W/PLT COUNT & AUTO 2022-10-10 Aamir, [facility] DIFFERENTIAL 15:24:00 [facility] POCT-GLUCOSE METER 2022-10-10 Aamir, Melly [facility] 12:28:00 [facility] POCT-GLUCOSE METER 2022-10-[address] [facility] 06:22:00 [facility] POCT-GLUCOSE METER 2022-10-[address] [facility] 21:12:00 [facility] POCT-GLUCOSE METER 2022-10-[address] [facility] 12:08:00 [facility] ECG 12-LEAD 2022-10-[address] [facility] 10:53:[facility] POCT-GLUCOSE METER 2022-10-[address] [facility] 05:52:00 [facility] LIPASE 2022-10-[address] [facility] 03:29:00 [facility] BASIC METABOLIC PANEL 2022-10-09 [facility] 03:29:00 [facility] HEMOGLOBIN A1C 2022-10-09 [facility] 03:29:00 [facility] PROTHROMBIN TIME/INR 2022-10-09 [facility] 03:29:00 [facility] HEPATIC FUNCTION PANEL 2022-10-09 [facility], [facility] 03:29:00 [facility] LIPID PANEL 2022-10-09 [facility] 03:29:00 [facility] MAGNESIUM 2022-10-09 [facility] 03:29:00 [facility] PHOSPHORUS 2022-10-09 Onsherrie, [facility] 03:29:00 [facility] CBC W/PLT COUNT & AUTO 2022-10-09 [facility], [facility] DIFFERENTIAL 03:29:00 [facility] CBC W/PLT COUNT & AUTO 2022-10-09 [facility], [facility] DIFFERENTIAL 03:29:00 [facility] AUTHORIZATION FOR RELEASE OF PHI 2022-09-07 [facility] 06:01:00 Unassigned, No [place] [facility] ESOPHAGOGASTRODUODENOSCOPY 2022-08-15 Karen Moralez [facility] [place] 11:00:00 [facility] EXTERNAL PROVIDER RECORDS 2022-08-08 Doctor Univer sity of 05:01:00 Unassigned, No [facility] THYROID STIMULATING HORMONE 2022-08-07 Min Iverson [facility] ersity of 22:09:00 [facility] COMP. METABOLIC PANEL (03119) 2022-08-07 Min Iverson iversity of 22:09:00 [facility] LIPID PANEL ([id number])(TOTAL 2022-08-07 Min Iverson [facility] sity of CHOLESTEROL, TRIGLYCERIDES, HDL) 22:09:00 [facility] HCV ANTIBODY 2022-08-07 Min Iverson [place] of 22:09:00 [facility] PAIN MANAGEMENT AGREEMENT & 2022-08-07 Doctor [facility] ersity of INFORMED CONSENT 05:01:00 Unassigned, No [facility] EXTERNAL PROVIDER RECORDS 2022-07-31 Doctor [facility] sity of 05:01:00 Unassigned, No [facility] BASIC METABOLIC PANEL 2022-07-[address] [facility] 16:02:00 [facility] HEPATIC FUNCTION PANEL 2022-07-[address] [facility] [facility] 16:02:00 [facility] CBC W/PLT COUNT & AUTO 2022-07-[address] [facility] DIFFERENTIAL 16:02:00 [facility] PROTHROMBIN TIME/INR 2022-07-[address] [facility] [facility] 16:02:00 [facility] MAGNESIUM 2022-07-[address] [facility] 16:02:00 [facility] PHOSPHORUS 2022-07-[address] [facility] 16:02:00 [facility] CBC W/PLT COUNT & AUTO 2022-07-[address] [facility] [facility] DIFFERENTIAL 16:02:00 [facility] POCT-GLUCOSE METER 2022-07-02 Ana Rosa Chapman [facility] 08:44:00 [facility] COMPREHENSIVE METABOLIC PANEL 2022-07-02 Nalam, Ratna Alia [facility] 03:22:00 [facility] PROTHROMBIN TIME/INR 2022-07-02 Nalam, Ratna Alia [facility] 03:22:00 [facility] CBC W/PLT COUNT & AUTO 2022-07-02 Nalam, Ratna Alia [facility] DIFFERENTIAL 03:22:00 [facility] CBC W/PLT COUNT & AUTO 2022-07-02 Annie, Ratna Rojo [facility] DIFFERENTIAL 03:22:00 [facility] POCT-GLUCOSE METER 2022-07-01 Gadicherla, Ana Rosa [facility] 22:20:00 [facility] POCT-GLUCOSE METER 2022-07-01 Gadicherla, Ana Rosa [facility] 15:31:00 [facility] POCT-GLUCOSE METER 2022-07-01 Gadicherla, Ana Rosa [facility] 11:14:00 [facility] MR ABDOMEN WITH & WITHOUT IV 2022-07-01 KhadraravindraLandry barreramarkadelso [facility] CONTRAST 11:01:00 [facility] POCT-GLUCOSE METER 2022-07-01 Gadicherla, Ana Rosa [facility] 07:39:00 [facility] POCT-GLUCOSE METER 2022-07-01 Gadicherla, Ana Rosa [facility] 06:29:00 [facility] COMPREHENSIVE METABOLIC PANEL 2022-07-[address] [facility] 04:11:00 [facility] CBC W/PLT COUNT & AUTO 2022-07-[address] [facility] DIFFERENTIAL 04:11:00 [facility] CBC W/PLT COUNT & AUTO 2022-07-[address] [facility] DIFFERENTIAL 04:11:00 [facility] PROTHROMBIN TIME/INR 2022-07-[address] [facility] 04:05:00 [facility] POCT-GLUCOSE METER 2022-06-30 Gadicherla, Ana Rosa [facility] 23:42:00 [facility] POCT-GLUCOSE METER 2022-06-30 Gadicherla, Ana Rosa [facility] 17:00:00 [facility] POCT-GLUCOSE METER 2022-06-30 Gadicherla, Ana Rosa [facility] 13:08:00 [facility] THROMBOELASTOGRAPH (TEG) 2022-06-[address] [facility] 07:23:00 [facility] COMPREHENSIVE METABOLIC PANEL 2022-06-30 Annie Ratna Alia [facility] 05:58:00 [facility] PROTHROMBIN TIME/INR 2022-06-30 Annie Ratna Alia [facility] 05:58:00 [facility] CBC W/PLT COUNT & AUTO 2022-06-30 Ratna Valencia Alia [facility] DIFFERENTIAL 05:58:00 [facility] HEPATITIS B PCR, QUANTITATIVE 2022-06-30 [address] [facility] 05:58:00 [facility] POCT-GLUCOSE METER 2022-06-30 Gadicherla, Ana Rosa [facility] 05:58:00 [facility] TYPE AND SCREEN, AUTOMATED 2022-06-30 Gadicherla, Ana Rosa [facility] 05:58:00 [facility] CBC W/PLT COUNT & AUTO 2022-06-30 Ratna Valencia Alia [facility] DIFFERENTIAL 05:58:00 [facility] FIBRINOGEN 2022-06-[address] [facility] 05:57:00 [facility] PROTHROMBIN TIME/INR 2022-06-[address] [facility] 05:57:00 [facility] POCT-GLUCOSE METER 2022-06-30 Gadicherla, Ana Rosa [facility] 02:10:00 [facility] POCT-GLUCOSE METER 2022-06-30 Gadicherla, Ana Rosa [facility] 00:22:00 [facility] POCT-GLUCOSE METER 2022-06-29 Gadicherla, Ana Rosa [facility] 17:47:00 [facility] HEMOGLOBIN AND HEMATOCRIT 2022-06-29 Gadicherla, Ana Rosa [facility] 16:55:00 [facility] PREPARE LEUKO-REDUCED RBC 2022-06-29 [facility] 13:21:00 [facility] POCT-GLUCOSE METER 2022-06-29 Gadicherla, Ana Rosa [facility] 12:17:00 [facility] 2D ECHO W/ DOPPLER (CW/PW/COLOR) 2022-06-[address] [facility] 09:41:00 [facility] POCT-GLUCOSE METER 2022-06-29 Nalam, Ratna Alia [facility] 06:29:00 [facility] PROTHROMBIN TIME/INR 2022-06-29 Lernor, Seferino [facility] 04:11:00 [facility] APTT 2022-06-29 Lernor, Seferino [facility] 04:11:00 [facility] CBC (HEMOGRAM ONLY) 2022-06-29 Lernor, Seferino [facility] 04:11:00 [facility] COMPREHENSIVE METABOLIC PANEL 2022-06-29 Lernor, Seferino [facility] 04:11:00 [facility] MAGNESIUM 2022-06-29 Lernor, Seferino [facility] 04:11:00 [facility] CALCIUM, IONIZED 2022-06-29 Lernor, Seferino [facility] 04:11:00 [facility] CBC W/PLT COUNT & AUTO 2022-06-[address] [facility] DIFFERENTIAL 04:11:00 [facility] CBC W/PLT COUNT & AUTO 2022-06-[address] [facility] [facility] DIFFERENTIAL 04:11:00 [facility] POCT-GLUCOSE METER 2022-06-28 Nalam, Ratna Alia [facility] 22:25:00 [facility] POCT-GLUCOSE METER 2022-06-28 Nalam, Ratna Alia [facility] 15:48:00 [facility] US ABDOMEN COMPLETE 2022-06-28 Arleth, Brooks [facility] 11:59:00 [facility] HEMOGLOBIN AND HEMATOCRIT 2022-06-28 Lernor, Seferino [facility] 10:48:00 [facility] DRUG SCREEN, URINE, TRANSPLANT 2022-06-[address] [facility] 10:40:00 [facility] POCT-GLUCOSE METER 2022-06-28 Arleth, Brooks [facility] 10:36:00 [facility] POCT-GLUCOSE METER 2022-06-28 Arleth, Brooks [facility] 08:50:00 [facility] PROTHROMBIN TIME/INR 2022-06-28 Lernor, Seferino [facility] 05:35:00 [facility] APTT 2022-06-[address] [facility] 05:35:00 [facility] CBC (HEMOGRAM ONLY) 2022-06-[address] [facility] 05:35:00 [facility] COMPREHENSIVE METABOLIC PANEL 2022-06-28 Zay, Sef[facility]ino [facility] 05:35:00 [facility] MAGNESIUM 2022-06-28 Zay, Seferino [facility] 05:35:00 [facility] POCT-GLUCOSE METER 2022-06-27 Arleth, Brooks [facility] 22:53:00 [facility] HEMOGLOBIN AND HEMATOCRIT 2022-06-27 Arleth, Brooks [facility] 19:49:00 [facility] HEPATITIS C PCR, QUANTITATIVE 2022-06-[address] [facility] 17:03:00 [facility] PHOSPHATIDYLETHANOL, BLOOD 2022-06-27 [facility] 17:03:00 [facility] ALPHA FETOPROTEIN (AFP), TUMOR 2022-06-[address] [facility] MARK[facility] 17:01:00 [facility] HEPATITIS C ANTIBODY 2022-06-[address] [facility] 17:01:00 [facility] HEPATITIS A ANTIBODY, IGG 2022-06-27 Blaise Bonnerony Ang [facility] 17:01:00 [facility] HEPATITIS A ANTIBODY, IGM 2022-06-27 Jack Bonner Ang [facility] 17:01:00 [facility] HEPATITIS B SURFACE ANTIBODY 2022-06-27 Bl[address]ise Bonnerony Ang [facility] 17:01:00 [facility] HEPATITIS B CORE ANTIBODY, TOTAL 2022-06-27 Jack Bonner Ang [facility] 17:01:00 [facility] HEPATITIS B SURFACE ANTIGEN 2022-06-27 Jack Bonner Ang [facility] 17:01:00 [facility] ANTI-NUCLEAR ANTIBODY (BEATA) 2022-06-27 Jack Bonner Ang [facility] 17:01:00 [facility] HC LAB FLUORESC AB SCRN EA AB 2022-06-[address] [facility] 17:01:00 [facility] ACTIN (SMOOTH MUSCLE) ANTIBODY, 2022-06-27 Bonner, Jack Ang [facility] IGG 17:01:00 [facility] CERULOPLASMIN 2022-06-27 Ha Jack Bowers [facility] 17:01:00 [facility] HNEIT-1-IIXYAIIDIHN\\, SERUM 2022-06-[address] [facility] 17:01:00 [facility] IRON, TIBC, % SAT. (WITHOUT 2022-06-27 Jack Bonner Robinson [facility] 17:01:00 [facility] FERRITIN 2022-06-27 Ha Jack Bowers [facility] 17:01:00 [facility] MITOCHONDRIAL AB SCREEN 2022-06-27 Ha [address]ers [facility] 17:01:00 [facility] MITOCHONDRIAL AB TITER 2022-06-27 Ha Jack Bowers [facility] 17:01:00 [facility] ANTI-MITOCHONDRIAL AB, REFLEX TO 2022-06-27 Ha Jack Bowers [facility] TITER 17:01:00 [facility] POCT-GLUCOSE METER 2022-06-27 Arleth, Brooks [facility] 16:19:00 [facility] POCT-GLUCOSE METER 2022-06-27 Arleth, Brooks [facility] 11:35:00 [facility] HEMOGLOBIN AND HEMATOCRIT 2022-06-27 [facility]ardenas [facility] 11:23:00 [facility] FIBRINOGEN 2022-06-[address] [facility] 11:23:00 [facility] REPORT OF PROCEDURE - ENDOSCOPY 2022-06-[address] [facility] URL 10:36:47 [facility] ESOPHAGOGASTRODUODENOSCOPY, WITH 2022-06-[address] [facility] VARICEAL BANDING 09:58:00 [facility] POCT-GLUCOSE METER 2022-06-27 Arleth, Brooks [facility] 06:05:00 [facility] PROTHROMBIN TIME/INR 2022-06-[address] [facility] 03:03:00 [facility] APTT 2022-06-[address] [facility] 03:03:00 [facility] CBC (HEMOGRAM ONLY) 2022-06-27 Lernor, Seferino [facility] 03:03:00 [facility] COMPREHENSIVE METABOLIC PANEL 2022-06-27 Viktornor, [facility]eferino [facility] 03:03:00 [facility] MAGNESIUM 2022-06-27 Viktornoartie, Seferino [facility] 03:03:00 [facility] POCT-GLUCOSE METER 2022-06-[address] [facility] 23:56:00 [facility] HEMOGLOBIN AND HEMATOCRIT 2022-06-26 CardenasLarisa lake [facility] 23:43:00 [facility] ABORH, MANUAL 2022-06-[address] [facility] 23:43:00 [facility] ECG 12-LEAD 2022-06-26 Unknown, Hl7 [facility] 19:35:41 [facility] CBC W/PLT COUNT & AUTO 2022-06-26 Patni, Richard [facility] DIFFERENTIAL 19:16:00 [facility] COMPREHENSIVE METABOLIC PANEL 2022-06-26 Patni, Richard [facility] 19[facility]16:00 [facility] PROTHROMBIN TIME/INR 2022-06-26 Patni, Richard [facility] 19:16:00 [facility] APTT 2022-06-26 Patni, Richard [facility] 19:16:00 [facility] LIPASE 2022-06-26 Patni, Richard [facility] 19:16:00 [facility] CREATINE KINASE (CK) 2022-06-26 Patni, Richard [facility] 19:16:00 [facility] HIGH SENSITIVITY TROPONIN I 2022-06-26 Patni, Richard [facility] 19:16:00 [facility] ETHANOL 2022-06-26 Patni, Richard [facility] 19:16:00 [facility] TYPE AND SCREEN, AUTOMATED 2022-06-26 Patni, [facility]00 [facility] CBC W/PLT COUNT & AUTO 2022-06-26 Patni, Richard [facility] DIFFERENTIAL 19:16:00 [facility] HEMOGLOBIN AND HEMATOCRIT 2022-06-[address] [facility] 18:13:[address] [facility] [address] LOW DOSE LUNG NODULE 2022-06-05 Linda Roman [facility] ty of 15:47:37 [facility] CONSENT/REFUSAL FOR DIAGNOSIS AND 2022-06-05 Doctor [facility] TREATMENT 15:24:44 Unassigned, No [facility] CONSENT/REFUSAL FOR DIAGNOSIS AND 2022-06-05 Doctor [facility] 15:24:43 Unassigned, No [facility] ASSIGNMENT OF BENEFITS 2022-06-[address] [facility] y of 15:24:26 Unassigned, No [facility] AUTHORIZATION FOR RELEASE OF PHI 2022-01-22 [facility] of 05:01:00 Unassigned, No [facility] Plan of Care Planned Activity Planned Date Details Comments Source Future Scheduled 2030-05-27 Screening for malignant [facility] 00:00:00 neoplasm of colon Medical Ce nter (procedure) [code = 011199534] Future Scheduled 2030-05-27 Screening for malignant [facility] 00:00:00 neoplasm of colon Medical Ce nter (procedure) [code = 728165630] Future Scheduled 2030-05-27 Screening for malignant [facility] Test 00:00:00 neoplasm of colon Medical Ce nter (procedure) [code = 181566924] Future Scheduled 2030-05-27 Screening for malignant [facility] Test 00:00:00 neoplasm of colon Medical Ce nter (procedure) [code = 466731250] Future Scheduled 2030-05-27 Screening for malignant [facility] Test 00:00:00 neoplasm of colon Medical Ce nter (procedure) [code = 622464564] Future Scheduled 2030-05-27 Screening for malignant [facility] Test 00:00:00 neoplasm of colon Medical Ce nter (procedure) [code = 344384768] Future Scheduled 2025-10-09 Lipid panel (procedure) [facility] 00:00:00 [code = 25703925] Medical Ce nter Future Scheduled 2025-08-07 Lipid panel (procedure) [facility] 00:00:00 [code = 48480684] Medical Ce nter Future Scheduled 2023-10-[address] [facility] 00:00:00 [facility] Screening (12+) [code = Tobacco Cessation Counseling and Screening (12+)] Future Scheduled 2023-08-[address] [facility] 00:00:00 [facility] r Screening (12+) [code = Tobacco Cessation Counseling and Screening (12+)] Future Scheduled 2023-08-07 Urine screening for [facility] 00:00:00 protein (procedure) [facility] [code = 168707737] Future Scheduled 2022-10-[address] [facility] 00:00:00 (12+) [code = [facility] DEPRESSION SCREENING (12+)] Future Scheduled 2022-10-[address] 00:00:00 measurement (procedure) [facility] [code = 64337633] Future Scheduled 2022-06-21 INFLUENZA VACCINE (#1) [facility] 00:[facility]:00 (12+) [code = [facility] DEPRESSION SCREENING (12+)] Future Scheduled 2021-10-[address] [facility] 00:00:00 (12+) [code = [facility] DEPRESSION SCREENING (12+)] Future Scheduled 2021-10-[address] [facility] 00:00:00 (12+) [code = [facility] DEPRESSION SCREENING (12+)] Future Scheduled 2015 SHINGLES VACCINES ([address] [facility] 00:00:00 2) [code = SHINGLES [facility] VACCINES (1 of 2)] Future Scheduled 2015 SHINGLES VACCINES ([address] [facility] 00:00:00 2) [code = SHINGLES [facility] VACCINES (1 of 2)] Future Scheduled 2015 SHINGLES VACCINES ([address] [facility] 00:00[facility]00 [facility] Future Scheduled 2015 SHINGLES VACCINES ([address] [facility] 00:00:00 2) [facility] Future Scheduled 2000 Lipid panel (procedure) [facility] 00:00:00 [code = 20721087] Medical Ce nter Future Scheduled 2000 Lipid panel (procedure) [facility] 00:00:00 [code = 69948995] Medical Ce nter Future Scheduled 1984 DTAP/TDAP/TD [...] DTAP/TDAP/TD VACCINES (1 - Tdap)] Future Scheduled 1975 DIABETIC EYE EXAM [code [facility] 00:00:00 = DIABETIC EYE EXAM] Medical Center Future Scheduled [address] [facility] 00:00:00 examination Medical Center (regime/therapy) [code = 475325628] Future Scheduled [address] [facility] 00:00:00 0-64 YRS (1 - PCV) Medical C enter [code = PNEUMOCOCCAL VACCINE 0-64 YRS (1 - PCV)] Future Scheduled [address] [facility] Test 00:00:00 [code = CT Colonography [facility] (combo)] Future Scheduled 1965 Screening for malignant [facility] 00:00:00 neoplasm of colon Medical Ce nter (procedure) [code = 428424627] Future Scheduled 1965 Screening for malignant [facility] 00:00:00 neoplasm of colon Medical Ce nter (procedure) [code = 101722499] Future Scheduled 1965 Screening for malignant [facility] 00:00:00 neoplasm of colon Medical Ce nter (procedure) [code = 454459799] Future Scheduled 1965 Screening for malignant [facility] 00:00:00 neoplasm of colon Medical Ce nter (procedure) [code = 424199747] Future Scheduled 1965 Sigmoidoscopy [code = [facility]oscopy] Medical Cente r Future Scheduled 1965 CT Colonography (combo) [facility] 00:00:00 [code = CT [facility] Future Scheduled 1965 Screening for malignant [facility] 00:00:00 neoplasm of colon Medical Ce nter (procedure) [code = 478720643] Future Scheduled 1965 Screening for malignant [facility] 00:00:00 neoplasm of colon Medical Ce nter (procedure) [code = 486763107] Future Scheduled 1965 Sigmoidoscopy [code = [facility] Sigmoidoscopy] Medical Cente r Future Scheduled 1965 CT Colonography (combo) [facility] 00:00:00 [code = CT [facility] Future Scheduled 1965 Screening for malignant [facility] 00:00:00 neoplasm of colon Medical Ce nter (procedure) [code = 906246538] Future Scheduled 1965 Screening for malignant [facility] 00:00:00 neoplasm of colon Medical Ce nter (procedure) [code = 292539701] Future Scheduled 1965 Sigmoidoscopy [code = [facility] Sigmoidoscopy] Medical Cente r Future Scheduled 1965 CT Colonography (combo) [facility] 00:00:00 [code = CT Colonography [facility] (combo)] Future Scheduled 1965 Screening for malignant [facility] 00:00:00 neoplasm of colon Medical Ce nter (procedure) [code = 096799287] Future Scheduled 1965 Screening for malignant [facility] 00:00:00 neoplasm of colon Medical Ce nter (procedure) [code = 367598008] Future Scheduled 1965 Sigmoidoscopy [code [facility] 00:[facility] Sigmoidoscopy] Medical Michellee r Encounters Start End Encounter Admission Attending Care Care Encounter Source Date/Time Date/Time Type Type Clinicians Facility Department ID 2022-07-19 Outpatient [facility] Surgery [id number] SLE 10:50:57 SUNEAL 2023-02-25 2023-02-25 Outpatient R JORGE A LYONS [facility] [id number] Univers 10:30:00 10:30:00 JORGE A LYONS [facility] 2023-02-22 2023-02-22 Outpatient R TRINO [facility] [id number] Univers 10:40:00 10:40:00 BAR wilkes [facility] 2022-12-25 2022-12-25 Outpatient R TRINO [facility] [id number] [facility] 10:40:00 10:40:00 BAR wilkes [facility] 2022-11-30 2022-11-30 Patient [facility] 1.2.840.114 [id number] Univers 00:00:00 00:00:00 Secure Msg Bar GANN 350.1.13.10 ity of [facility] [place] [id number] [facility] 225 [facility] 2022-11-27 2022-11-27 Office [facility] 1.2.840.114 [id number] Univers 11:00:00 11:40:00 Visit Bar GANN 350.1.13.10 i [place] [id number] [address] 2022-11-27 2022-11-27 Outpatient R [facility] [id number] Univers 11:00:00 11:00:00 BAR wilkes [facility] 2022-11-26 2022-11-26 Telephone [facility] 1.2.840.114 1 [id number] Univers 00:00:00 00:00:00 Bar GANN 350.1.13.10 i [place] [phone] Or dic[address] 2022-11-23 2022-11-23 Telephone [facility] 1.2.840.114 1 [id number] Univers 00:00:00 00:00:00 Bar GANN 350.1.13.10 i [place] [phone] Or dic[address] 2022-11-21 2022-11-21 Outpatient R JORGE A LYONS [facility] [id number] Univers 11:30:00 12:36:29 JORGE A LYONS katrin [facility] 2022-11-21 2022-11-21 Office Jorge A Lyons [facility] 1.2.840.114 [id number] Univers 11:30:00 12:36:29 Visit HEALTH 350.1.13.10 it y of [place] 4.2.7.2.686 Juma as PRANAV?BLEA [id number] [facility] DAYSI [address] MEDICAL OFFICE [facility] 2022-11-20 2022-11-20 Orders Doctor FELISHA 1.2.840.114 [id number] Univers 00:00:00 00:00:00 Only Unassigned, ANUJ 350.1.13.10 ity of [place] [facility] 4.2.7.2.686 Juma as [id number] [address] 2022-11-19 2022-11-19 Telephone [facility] 1.2.840.114 1 [id number] Univers 00:00:00 00:00:00 Bar GANN 350.1.13.10 i [place] [id number] [address] 2022-11-19 2022-11-19 [facility] 1.2.840.114 100 [id number] Univers 00:00:00 00:00:00 Bar GANN 350.1.13.10 i [place] [id number] [address] 2022-11-19 2022-11-19 [facility] 1.2.840.114 [id number] Univers 00:00:00 00:00:00 Bar GANN 350.1.13.10 i [place] [phone] Or dicva NAL [address] [place] [address] 2022-11-13 2022-11-13 Telephone Jorge A Lyons [facility] 1.2.143.136 [id number] Univers 00:00:00 00:00:00 HEALTH 350.1.13.10 it y of [place] 4.2.7.2.686 Juma as PRANAV?BLEA [id number] [facility] DAY[place] [address] MEDICAL OFFICE [facility] 2022-11-12 2022-11-12 Patient Laurie [facility] 1.2.840.114 [id number] Univers 00:00:00 00:00:00 Secure Msg José Luis SANJUANITA 350.1.13.10 ity of [facility] 4.2.[place].2.[place] [phone] Or dical NAL 044 [facility] 2022-11-09 2022-11-09 [facility] [id number] [facility] 00:00:00 00:00:00 [facility] 2022-11-08 2022-11-08 Refill [facility] 1.2.840.114 [id number] Univers 00:00:00 00:00:00 Bar GANN 350.1.13.10 i [place] [id number] Or dical NAL 044 [facility] 2022-11-08 2022-11-08 Refill Jorge A Lyons [facility] 1.2.840.114 [id number] Univers 00:00:00 00:00:00 PRIMARY 350.1.13.10 it y [place] [id number] [facility] [address] 2022-11-07 2022-11-07 Telephone [facility] 1.2.840.114 [id number] Univers 00:00:00 00:00:00 Bar GANN 350.1.13.10 i [place] [id number] Or dical NAL 044 [facility] 2022-11-06 2022-11-06 Patient [facility] 1.2.840.114 [id number] Univers 00:00:00 00:00:00 Secure Msg Bar GANN 350.1.13.10 ity of [facility] 4[place]2.[place].2.[place] [phone] Or dical NAL 044 [facility] 2022-11-05 2022-11-05 Patient Yuly Jorge A [facility] 1.2.840.114 [id number] Univers 00:00:00 00:00:00 Secure Msg [facility] 350.1.13.10 ity of [place] 4.2.7.2.686 Juma as PRANAV?BLEA [id number] [facility] 220 [facility] OFFICE [facility] 2022-10-25 2022-10-25 Office [facility] [id number] 13:00:00 13:30:[address] [facility] 2022-10-25 2022-10-25 Telephone [facility] 1.2.840.114 [id number] Univers 00:00:00 00:00:00 Bar GANN 350.1.13.10 i [place] [id number] Or vadim [address] 2022-10-23 2022-10-23 [facility] [id number] 00:00:00 00:00:00 [facility] 2022-10-23 2022-10-23 Orders Doctor FELISHA 1.2.840.114 [id number] Univers 00:00:00 00:00:00 Only Unassigned, ANUJ 350.1.13.10 [facility] 4.2.7.2.686 Juma as [id number] [address] 2022-10-18 2022-10-18 [facility] Jorge A Lyons [facility] 1.2.840.114 [id number] Univers 00:00:00 00:00:00 HEALTH 350.1.13.10 it y of [place] 4.2.7.2.686 Juma as PRANAV?BLEA [id number] [facility] 220 [facility] OFFICE [facility] 2022-10-17 2022-10-17 [facility] [id number] Univers 11:00:00 12:17:[address] [facility] 2022-10-17 2022-10-17 Office [facility] 1.2.840.114 [id number] Univers 11:00:00 12:17:07 Visit Bar GANN 350.1.13.10 i ty of [facility] [place] [id number] Or dical NAL 044 [facility] 2022-10-17 2022-10-17 Telephone Trino [facility] 1.2.840.114 [id number] [facility] 00:00:00 00:00:00 Bar GANN 350.1.13.10 i [place] [id number] Or dical NAL 044 [facility] 2022-10-16 2022-10-16 Orders [facility] [id number] 00:00:00 00:00:00 Only [facility] 2022-10-08 2022-10-13 [facility] Roberta Stewart [facility] [id number] [facility] 21:32:00 12:27:00 Encounter Berenice Quesada Aamir, Melly Medic [facility] 2022-10-08 2022-10-13 Inpatient ER MELLY OLSEN [facility] General Med 2 [id number] [facility] 21:32:00 12:27:00 2022-10-11 2022-10-11 Anesthesia [facility], [facility] [id number] [facility] St 17:27:00 18:21:00 Event [facility] 2022-10-11 2022-10-11 Surgery [facility] [id number] 14:00:00 15:00:00 [facility] 2022-10-09 2022-10-09 Outpatient [facility] [id number] [facility] 00:00:00 23:59:00 Colleg e [facility] Medicin e 2022-10-08 2022-10-08 Outpatient [facility] [id number] [facility] 21:32:00 23:59:00 Colleg e [facility] Medicin e 2022-10-05 2022-10-05 [facility] 1.2.840.114 [id number] Univers 00:00:00 00:00:00 Secure Msg Bar GANN 350.1.13.10 ity of [facility] [place] [id number] Or dical NAL 044 [facility] 2022-09-24 2022-09-24 Telephone [facility] 1.2.840.114 [id number] Univers 00:00:00 00:00:00 Bar GANN 350.1.13.10 i ty of [facility] [place] [phone] Or dical NAL [address] [place] [address] 2022-09-24 2022-09-24 Patient [facility] 1.2.840.114 [id number] Univers 00:00:00 00:00:00 Secure Msg Chanel MULTISPEC 350.1.13.10 ity of [facility] 4.2.7.2.[place] CENTER [phone] [facility] AND [address] [facility] 2022-09-19 2022-09-19 Outpatient R [facility] [id number] Univers 10:40:00 10:40:[address] [facility] 2022-09-16 2022-09-16 [facility]ill [facility] 1.2.840.114 [id number] Univers 00:00:00 00:00:00 Bar GANN 350.1.13.10 i ty [place] [id number] Or dical NAL [address] [place] [address] 2022-09-16 2022-09-16 [facility]ill [facility] 1.2.840.114 [id number] Univers 00:00:00 00:00:00 Bar GANN 350.1.13.10 i ty of [facility] 4[place].7.2.[place] [phone] Or dical NAL [address] [place] [address] 2022-09-16 2022-09-16 Refyi [facility] 1.2.840.114 [id number] Univers 00:00:00 00:00:00 Jack [employer] 350.1.13.10 it y of [place] 4.2.7.2.686 Juma as PRANAV?BLEA [id number] Or vadim TAVAREZ [address] [place] [address] OFFICE [facility] 2022-09-12 2022-09-12 Telephone [facility] 1.2.840.114 9 [id number] Univers 00:00:00 00:00:00 Bar GANN 350.1.13.10 i ty [place] [id number] [address] 2022-09-07 2022-09-07 Out[facility] [id number] [facility] 10:40:00 11:52:38 BAR ity [facility] 2022-09-07 2022-09-07 Office [facility] 1.2.840.114 [id number] [facility] 10:40:00 11:52:38 Visit Bar GANN 350.1.13.10 i ty of [place] [phone] [address] 2022-09-07 2022-09-07 Telephone [facility] 1.2.840.114 9 [id number] Univers 00:00:00 00:00:00 Bar GANN 350.1.13.10 i ty [place] [id number] [address] 2022-09-07 2022-09-07 Orders Doctor BAEZA 1.2.840.114 [id number] Univers 00:00:00 00:00:00 Only Unassigned, ANUJ 350.1.13.10 ity of [place] [facility] 4.2.7.2.686 Juma as [id number] [address] 2022-09-07 2022-09-07 Telephone [facility] 1.2.840.114 9 [id number] Univers 00:00:00 00:00:00 Bar GANN 350.1.13.10 i ty [place] [id number] [address] 2022-09-04 2022-09-[address] [facility] [id number] 00:00:00 00:00:00 [facility] 2022-09-04 2022-09-04 Telephone [facility] 1.2.840.114 [id number] [facility] 00:00:00 00:00:00 Bar GANN 350.1.13.10 i ty of [facility] [place].2.[place] [id number] Or dical NAL [address] [place] [address] 2022-09-04 2022-09-04 Abstract Pam [facility] [id number] 00:00:00 00:00:00 [facility] 2022-09-03 2022-09-03 Telephone [facility] 1.2.840.114 9 [id number] [facility] 00:00:00 00:00:00 Bar GANN 350.1.13.10 i ty [place] [id number] Or dical [address] 2022-08-31 2022-08-31 Outpatient R [facility] [id number] Univers 14:20:00 14:20:00 [facility] 2022-08-31 2022-08-31 Outpatient R [facility] [id number] Univers 14:20:00 14:20:00 [facility] 2022-08-26 2022-08-26 Refill [facility] 1.2.840.114 [id number] [facility] 00:00:00 00:00:00 Bar GANN 350.1.13.10 i ty [place] [phone] Or dical [address] 2022-08-22 2022-08-22 Abstract Pam [facility] [id number] 00:00:00 00:00:00 [facility] 2022-08-22 2022-08-22 [facility] [id number] 00:00:00 00:00:00 [facility] 2022-08-21 2022-08-21 Telephone Trino [facility] 1.2.840.114 [id number] [facility] 00:00:00 00:00:00 Bar GANN 350.1.13.10 i ty [place] ÁNGELIO [id number] Or dical NAL [address] [facility] 2022-08-14 2022-08-14 Outpatient [facility] [id number] [facility] 13:56:39 23:59:00 2022-08-14 2022-08-14 [facility] [id number] 11:00:00 23:59:00 Encounter [facility] 2022-08-14 2022-08-14 [facility] [id number] 11:00:00 11:00:00 Encounter [facility] 2022-08-14 2022-08-14 Outpatient EL [facility] [id number] [facility] 00:00:00 00:00:00 2022-08-14 2022-08-14 Travel [facility] [id number] [facility] 00:00:00 00:00:00 [facility] 2022-08-14 2022-08-14 Travel [facility] [id number] [facility] 00:00:00 00:00:00 [facility] 2022-08-10 2022-08-10 Outpatient Artie [facility] [id number] Univers 11:30:00 11:30:[address] of [facility] 2022-08-08 2022-08-08 Orders Doctor FELISHA 1.2.840.114 [id number] Univers 00:00:00 00:00:00 Only Unassigned, ANUJ 350.1.13.10 ity of [place] [facility] 4.2.7.2.686 Juma as [id number] [place] [address] [address] 2022-08-07 2022-08-07 [employer] Celestino, Vanna Lab Main [facility] 1.2.8 40.114 [id number] [facility] 17:00:00 17:15:00 Visit Bar Jameson 350.1.13.10 ity of [facility] [place] [id number] Or dical NAL 353 [facility] 2022-08-07 2022-08-07 [facility] [id number] [facility] 14:40:00 16:43:40 BAR ity [facility] 2022-08-07 2022-08-07 Office [facility] 1.2.840.114 [id number] [facility] 14:40:00 16:43:40 Visit Bar GANN 350.1.13.10 i ty of [place] [id number] Or dical NAL 044 [facility] 2022-08-07 2022-08-07 Orders Doctor FELISHA 1.2.840.114 [id number] Univers 00:00:00 00:00:00 Only Unassigned, ANUJ 350.1.13.10 ity of [place] [facility] 4.2.7.2.686 Juma as [id number] [address] 2022-08-03 2022-08-03 Telephone [facility] 1.2.840.114 9 [id number] Univers 00:00:00 00:00:00 Bar GANN 350.1.13.10 i ty of [place] [phone] Or dical NAL 044 [facility] 2022-08-03 2022-08-03 Telephone [facility] 1.2.840.114 9 [id number] Univers 00:00:00 00:00:00 Bar GANN 350.1.13.10 i ty [place] [id number] Or dical NAL 044 [facility] 2022-07-31 2022-07-31 Outpatient EL [facility] [id number] [facility] 00:00:00 00:00:00 2022-07-31 2022-07-31 Orders Doctor FELISHA 1.2.840.114 [id number] Univers 00:00:00 00:00:00 Only Unassigned, ANUJ 350.1.13.10 [facility] 4.2.7.2.686 Juma as [id number] [address] 2022-07-31 2022-07-31 Telephone [facility] 1.2.840.114 9 [id number] Univers 00:00:00 00:00:00 Bar KAUFFMANJIM 350.1.13.10 i ty [place] [id number] Or dical NAL 044 [facility] 2022-07-30 2022-07-30 Telephone [facility] [id number] Univers 00:00:00 00:00:00 Bar KAUFFMANJIM 350.1.13.10 i [place] [phone] Or dic[address] 2022-07-26 2022-07-26 Emergency E DANIEL, MHBL MHBL 7500 [facility]BL 13:53:00 19:44:00 [facility] 2022-07-26 2022-07-26 [facility] [id number] Univers 10:40:00 10:40:00 BAR [facility] 2022-07-20 2022-07-20 Outpatient R JOSÉ LUIS BRENNAN [facility] [id number] Univers 14:30:00 14:30:00 JOSÉ LUIS BRENNAN [facility] 2022-07-19 2022-07-19 Abstract Pam [facility] [id number] [facility] [address] 00:00:00 00:00:00 [facility] 2022-07-19 2022-07-19 Abstract Pam [facility] [id number] 00:00:00 00:00:00 [facility] 2022-07-18 2022-07-18 [facility] [id number] Univers 13:40:00 13:40:00 BAR [address] 2022-07-17 2022-07-17 Office [place], [facility] [id number] 14:00:00 15:00:[address] [facility] 2022-07-17 2022-07-17 Office [facility], [facility] [id number] 14:00:00 15:00:[address] [facility] [place] 2022-07-17 2022-07-17 Outpatient [facility] [id number] [facility] 13:37:03 13:37:03 [place]AN[place] 2022-07-16 2022-07-16 Refill Jorge A Lyons [facility] 1.2.840.114 [id number] Univers 00:00:00 00:00:00 HEALTH 350.1.13.10 it y [facility] 4.2.7.2.686 Juma as PRANAV?BLEA [id number] Or henoksaundra [address] OFFICE [facility] 2022-07-16 2022-07-16 Refill Trino [facility] 1.2.840.114 [id number] Univers 00:00:00 00:00:00 Bar GANN 350.1.13.10 i ty of [place] [id number] [address] 2022-07-13 2022-07-13 Telephone Inez [facility] [id number] [id number] 00:00:00 00:00:00 Imanijasmin Gallo [facility] 2022-07-13 2022-07-13 Telephone Inez [facility] [id number] [id number] 00:00:00 00:00:00 Imani Gallo s [facility] 2022-06-26 2022-07-02 [facility] [id number] [facility] 17:43:00 13:14:00 ANA ROSA 2022-06-26 2022-07-02 [facility] [id number] [facility] 17:43:00 13:14:00 Encounter Ratna Valencia [facility] 2022-06-26 2022-07-02 [facility] Brooks Ochoa [facility] [id number] 17:43:00 13:14:00 [facility] 2022-07-02 2022-07-02 Travel [facility] [id number] [facility] 00:[facility]:00 [facility] 2022-07-02 2022-07-02 Travel [facility] [id number] [facility] 00:[facility] 00[facility]:00 [facility] 2022-06-27 2022-06-27 [facility] [id number] [id number] 09:58:00 10:55:00 Event [facility] 2022-06-27 2022-06-27 Anesthesia [facility] [id number] [id number] 09:58:00 10:55:00 [facility] 2022-06-27 2022-06-27 Surgery Em [facility] [id number] [facility] 09:02:00 09:57:00 [facility] 2022-06-27 2022-06-27 Surgery Em [facility] [id number] 09:02:00 09:57:00 [facility] 2022-06-26 2022-06-26 Outpatient [facility] [id number] [facility] 00:00:00 23:59:00 Efren 2022-06-26 2022-06-26 Outpatient Artie KRUEGER [facility] [id number] Univers 11:30:00 11:30:00 WILLI wilkes [facility] 2022-06-26 2022-06-26 Outpatient CHANEL RAMIREZ [id number] Chanel 00:00:00 00:00:00 RICHARD Sellersol d 2022-06-26 2022-06-26 [facility] [id number] [id number] 00:00:00 00:00:00 [facility] 2022-06-26 2022-06-26 [facility] [id number] 00:00[facility]00 00:00:00 [facility] 2022-06-26 2022-06-26 [facility] [id number] [id number] 00:00:00 00:00:00 [facility] 2022-06-26 2022-06-26 [facility] [id number] 00:00:00 00:00:00 [facility] 2022-06-08 2022-06-08 Patient Jorge A Lyons [facility] 1.2.840.114 [id number] Univers 00:00:00 00:00:00 Secure Msg PRIMARY 350.1.13.10 it[place] [id number] Or dical [address] 2022-06-08 2022-06-08 [facility] 1.2.840.114 [id number] Univers 00:00:00 00:00:00 Bar GANN 350.1.13.10 i ty of [place] JUAN [id number] Or dical NAL [address] BU[address]ING 2022-06-05 2022-06-05 Outpatient R LINDA ROMAN [facility] [id number] Univers 10:24:39 23:59:00 LINDA ROMAN i ty of [facility] 2022-06-05 2022-06-05 [facility] 1.2.840.114 [id number] Univers 10:00:00 23:59:00 Jovani GANN 350.1.13.10 ity [facility] [place].2.7.2.[place] [id number] [facility] [address] 2022-06-01 2022-06-01 Outpatient R TRINO [facility] [id number] Univers 08:00:00 08:00:[address] [facility] 2022-05-18 2022-05-18 Telephone Yuly [facility] 1.2.841.700 [id number] Univers 00:00:00 00:00:00 PRIMARY 350.1.13.10 it y [place] [id number] [facility] [address] 2022-05-15 2022-05-15 Refill Yuly [facility] 1.2.840.114 [id number] Univers 00:00:00 00:00:00 HEALTH 350.1.13.10 it y of [place] 4.2.7.2.686 Juma as PRANAV?BLEA [id number] [address] MEDICAL OFFICE BUILDING 2022-05-11 2022-05-11 Patient Jorge A Lyons [facility] 1.2.840.114 [id number] Univers 00:00:00 00:00:00 Secure Msg PRIMARY 350.1.13.10 it[place] [id number] [address] 2022-05-02 2022-05-02 Office [facility] 1.2.840.114 [id number] Univers 13:15:00 13:30:00 Visit Genesis Dean HEALTH 350.1.13.10 ity of [place].2.[place] [facility] [id number] [facility] PRIMARY & [address] SPECIALTY CARE 2022-05-02 2022-05-02 Outpatient Artie HO [facility] [id number] Univers 13:15:00 13:15:00 GENESIS wilkes [facility] 2022-05-02 2022-05-02 Outpatient Atrie HO [facility] [id number] Univers 13:15:00 13:15:00 GENESIS wilkes [facility] 2022-05-02 2022-05-02 Outpatient R JESUSFELICITASHARIF [facility] [id number] Univers 13:15:00 13:15:00 GENESIS wilkes [facility] 2022-05-02 2022-05-02 Patient Jorge A Lyons [facility] 1.2.840.114 [id number] Univers 00:00:00 00:00:00 Secure Msg PRIMARY 350.1.13.10 it[place] [id number] Or dical [address] 2022-05-02 2022-05-02 Patient Jorge A Lyons [facility] 1.2.840.114 [id number] Univers 00:00:00 00:00:00 Secure Msg PRIMARY 350.1.13.10 it[place] [id number] Or dical [address] 2022-04-30 2022-04-30 Emergency [facility]RT [id number] Univers 11:19:00 15:46:00 NYASIA [facility] 2022-04-30 2022-04-30 Emergency [facility] 1.2.258.250 [id number] Univers 11:19:00 15:46:00 Nyasia GANN 350.1.13.10 i ty of [place].2.7.2.[place] [id number] [facility] [address] [place] 2022-04-30 2022-04-30 Patient [facility] 1.2.840.114 [id number] Univers 00:00:00 00:00:00 Secure Msg Bar SANJUANITA 350.1.13.10 ity of [place] [phone] Or dical NAL 044 [facility] 2022-04-27 2022-04-27 Outpatient R TRINO [facility] [id number] Univers 08:00:00 09:00:27 BAR wilkes [facility] 2022-04-27 2022-04-27 Office [facility] 1.2.840.114 [id number] Univers 08:00:00 09:00:27 Visit Bar KAUFFMANJIM 350.1.13.10 i ty [facility] 4.2.7.2.[place] [id number] Or dical NAL 044 [facility] 2022-04-27 2022-04-27 [facility] [id number] Univers 08:00:00 08:00:00 BAR susan [facility] 2022-04-27 2022-04-27 Refill [facility] 1.2.840.114 [id number] Univers 00:00:00 00:00:00 Bar GANN 350.1.13.10 i ty of [place] [id number] Or dical [address] 2022-04-17 2022-04-17 Out[facility] [id number] Univers 14:30:00 14:30:00 WILLI [facility] 2022-04-17 2022-04-17 Orders Doctor FELISHA 1.2.840.114 [id number] Univers 00:00:00 00:00:00 Only Unassigned, ANUJ 350.1.13.10 ity of [place] [facility] 4.2.7.2.686 Juma as [id number] [address] 2022-04-16 2022-04-16 [facility] [id number] Univers 11:30:00 11:46:28 Surgery [facility] 2022-04-16 2022-04-16 Out[facility] [id number] Univers 11:30:00 11:46:28 Surgery [facility] 2022-04-16 2022-04-16 Office [facility] 1.2.840.114 [id number] Univers 11:30:00 11:46:28 Visit Estrada SANJUANITA 350.1.13.10 i ty of [facility] 4.2.7.2.[place] [id number] Or dical [facility] 204 [facility] 2022-04-16 2022-04-16 Outpatient R MADDIE [facility] [id number] Univers 11:30:00 11:46:[address] [facility] 2022-04-12 2022-04-12 Patient [facility] 1.2.840.114 [id number] Univers 00:00:00 00:00:00 Secure Msg Bar GANN 350.1.13.10 ity of [place] [id number] Or dical NAL 225 [facility] 2022-04-12 2022-04-12 Patient [facility] 1.2.840.114 [id number] Univers 00:00:00 00:00:00 Secure Msg Bar GANN 350.1.13.10 ity of [place].2.[place] [id number] Or dical NAL 044 [facility] 2022-04-12 2022-04-12 [facility] 1.2.840.114 [id number] Univers 00:00:00 00:00:00 Secure Msg Bar GANN 350.1.13.10 ity of [place] [id number] Or dical NAL 044 [facility] 2022-04-12 2022-04-12 Patient [facility] 1.2.840.114 [id number] Univers 00:00:00 00:00:00 Secure Msg Bar GANN 350.1.13.10 ity of [place]2.[place] [phone] Or dical NAL 044 [facility] 2022-04-06 2022-04-06 Jose [facility] 1.2.840.114 [id number] Univers 09:30:00 10:30:12 Visit Evelyn SALINAS 350.1.13.10 ity of C[place].2.[place] C[place] AT [id number] Or dical VICTORY 188 [facility] 2022-04-06 2022-04-06 Outpatient R ASHISH [facility] [id number] Univers 09:30:00 10:30:12 EVELYN wilkes [facility] 2022-04-06 2022-04-06 Outpatient R ASHISH [facility] [id number] Univers 09:30:00 09:30:00 EVELYN wilkes [facility] 2022-04-02 2022-04-02 Patient [facility] 1.2.840.114 [id number] Univers 00:00:00 00:00:00 Secure Msg Bar SANJUANITA 350.1.13.10 ity of [place] 4.[place].2.[place] [phone] Or dical NAL 044 [facility] 2022-03-30 2022-03-30 [facility] 1.2.840.114 [id number] Univers 10:38:11 23:59:00 Encounter Bar GANN 350.1.13.10 ity of [place].2.[place] [id number] [address] 2022-03-30 2022-03-30 [facility] [id number] [id number] Univers 08:00:00 10:23:21 BAR wilkes [facility] 2022-03-30 2022-03-30 Office [facility] 1.2.840.114 [id number] Univers 08:00:00 10:23:21 Visit Bar GANN 350.1.13.10 i ty of [place].2.[place] [id number] Or dical NAL 044 [facility] 2022-03-22 2022-03-22 Outpatient R LINDA ROMAN [facility] [id number] Univers 13:30:00 14:29:06 LINDA ROMAN i ty of [facility] 2022-03-22 2022-03-22 Office [facility] 1.2.840.114 [id number] Univers 13:30:00 14:29:06 Visit Linda GANN 350.1.13.10 i ty of [place].2.[place] [id number] Or dical NAL 085 [facility] 2022-03-22 2022-03-22 Office [facility] 1.2.840.114 [id number] Univers 13:20:00 13:40:00 Visit Carmen GANN 350.1.13.10 ity of [facility] 4.2.7.2.[place] [id number] Or dicsaundra NAL 059 [facility] 2022-03-22 2022-03-22 Outpatient R JUSTIN, [facility] [id number] Univers 13:20:00 13:20:00 CARMEN b[address] o f [facility] 2022-03-22 2022-03-22 Outpatient R JUSTIN, [facility] [id number] Univers 13:20:00 13:20:00 CARMEN wilkes o f [facility] 2022-03-22 2022-03-22 Refill Yuly, Jorge A [facility] 1.2.840.114 [id number] Univers 00:00:00 00:00:00 HEALTH 350.1.13.10 it y of [place] 4.2.7.2.686 Juma as PRANAV?BLEA [id number] [facility] DAYSI 220 [facility] OFFICE [facility] 2022-03-22 2022-03-22 Refill [facility] 1.2.840.114 [id number] Univers 00:00:00 00:00:00 Min SANJUANITA 350.1.13.10 i ty of [facility] 4.2.7.2.[place] [id number] [facility] 044 [facility] 2022-03-20 2022-03-20 Patient [facility] 1.2.840.114 [id number] Univers 00:00:00 00:00:00 Secure Msg Min HEALTH 350.1.13.10 ity of [place] 4.2.7.2.686 Juma as PRANAV?BLEA [phone] [facility] 044 [facility] OFFICE [facility] 2022-03-16 2022-03-16 Emergency X EVA, K [facility] ERT [id number] Univers 14:47:00 21:40:[address] [facility] 2022-03-16 2022-03-16 Emergency Eva, K [facility] 1.2.840.114 [id number] Univers 14:47:00 21:40:00 Denice GANN 350.1.13.10 i ty of [place] 4.2.7.2.686 [facility] [id number] [address] 2022-03-16 2022-03-16 Outpatient R KISHOR [facility] [id number] Univers 11:30:00 11:30:00 MIN wilkes [facility] 2022-03-16 2022-03-16 Telephone [facility] 1.2.928.719 [id number] Univers 00:00:00 00:00:00 Min HEALTH 350.1.13.10 it y of [place] 4.2.7.2.686 Juma as PRANAV?BLEA [id number] [address] MEDICAL OFFICE BUILDING 2022-03-07 2022-03-07 Emergency X ZAMORA, [facility] ERT [id number] Univers 09:48:00 14:47:00 JOSELIZETT wilkes [facility] 2022-03-07 2022-03-07 Emergency Zamora, [facility] 1.2.840.114 [id number] Univers 09:48:00 14:47:00 Joselizett GANN 350.1.13.10 i ty of [place] 4.2.7.2.686 [facility] [id number] [address] 2022-03-07 2022-03-07 Emergency X ZAMORA, [facility] ERT [id number] Univers 09:48:00 09:48:00 JOSE wilkes [facility] 2022-03-07 2022-03-07 Outpatient R KISHOR [facility] [id number] Univers 08:30:00 09:29:15 MIN wilkes [facility] 2022-03-07 2022-03-07 Office [facility] 1.2.840.114 [id number] Univers 08:30:00 09:29:15 Visit Min MONTEMAYOR 350.1.13.10 it y of [place] 4.2.7.2.686 Juma as PRANAV?BLEA [id number] [address] OFFICE [facility] 2022-03-07 2022-03-07 Outpatient R KISHOR [facility] [id number] Univers 08:30:00 09:29:15 MIN wilkes [facility] 2022-03-05 2022-03-05 Refill Yuly [facility] 1.2.840.114 [id number] Univers 00:00:00 00:00:00 HEALTH 350.1.13.10 it y of [place] 4.2.7.2.686 Juma as PRANAV?BLEA [id number] [address] MEDICAL OFFICE [facility] 2022-02-22 2022-02-22 Orders Doctor FELISHA 1.2.840.114 [id number] Univers 00:00:00 00:00:00 Only Unassigned, ANUJ 350.1.13.10 ity of [place] [facility] 4.2.7.2.686 Juma as [id number] [address] 2022-02-21 2022-02-21 Outpatient R JORGE A LYONS [facility] [id number] Univers 10:00:00 10:56:46 JORGE A LYONS [facility] 2022-02-21 2022-02-21 Office Yuly [facility] 1.2.840.114 [id number] Univers 10:00:00 10:56:46 Visit HEALTH 350.1.13.10 it y of [place] 4.2.7.2.686 Juma as PRANAV?BLEA [id number] [address] MEDICAL OFFICE [facility] 2022-02-21 2022-02-21 Outpatient R JORGE A LYONS [facility] [id number] Univers 10:00:00 10:00:00 JORGE A LYONS [facility] 2022-02-16 2022-02-16 Outpatient R GERMÁN [facility] [id number] Univers 10:00:00 10:00:[address] [facility] 2022-02-12 2022-02-12 Outpatient R KISHOR [facility] [id number] Univers 10:00:00 10:53:31 MIN wilkes [facility] 2022-02-12 2022-02-12 Office [facility] 1.2.840.114 [id number] Univers 10:00:00 10:53:31 Visit Min MONTEMAYOR 350.1.13.10 it y of [place] 4.2.7.2.686 Juma as PRANAV?BLEA [id number] [address] MEDICAL OFFICE BUILDING 2022-02-12 2022-02-12 Outpatient Artie IVERSON [facility] [id number] Univers 10:00:00 10:53:31 MIN wilkes [facility] 2022-02-12 2022-02-12 Outpatient Artie IVERSON [facility] [id number] Univers 10:00:00 10:00:00 MIN wilkes [facility] 2022-01-22 2022-01-22 Orders Doctor BAEZA 1.2.840.114 [id number] Univers 00:00:00 00:00:00 Only Unassigned, ANUJ 350.1.13.10 ity of [place] [facility] 4.2.7.2.686 Juma as [id number] [address] Results Test Description Test Time Test Comments Results Result Comments Source MISCELLANEOUS LAB ORDER 2022-10-29 10:04:37 Test Item Value Reference Range Interpretation Comme nts SCAN RESULT (test code = 1967658) See scanned report See scanned reportALPHA FETOPROTEIN (AFP), TUMOR [id number] 17:29:00 Test Item Value Reference Range Interpretation Comments ALPHA-FETOPROTEIN (BEAKER) (test code < ng/mL <10.0 = 1094) Jewel Hole Gauger ID - BSBASIC METABOLIC [id number] 17:11:51 Test Item Value Reference Range Interpretation Comments SODIUM (BEAKER) 134 meq/L 136-145 L (test code = 381) POTASSIUM 4.6 meq/L 3.5-5.1 (BEAKER) (test code = 379) CHLORIDE (BEAKER) 99 meq/L 98-107 (test code = 382) CO2 (BEAKER) 26 meq/L 22-29 (test code = 355) BLOOD UREA 13 mg/dL 7-21 NITROGEN (BEAKER) (test code = 354) CREATININE 0.75 mg/dL 0.57-1.25 (BEAKER) (test code = 358) GLUCOSE RANDOM 97 mg/dL 70-105 (BEAKER) (test code = 652) CALCIUM (BEAKER) 10.5 mg/dL 8.4-10.2 H (test code = 697) EGFR (BEAKER) 105 Interpretatio n of eGFR [...] not appl icable for dialysis patien ts Jewel Hole Gauger ID - BSHEPATIC FUNCTION [id number] 17:11:51 Test Item Value Reference Range Interpretation Comments TOTAL PROTEIN (BEAKER) (test code = 8.3 gm/dL 6.0-8.3 770) ALBUMIN (BEAKER) (test code = 1145) 4.2 g/dL 3.5-5.0 BILIRUBIN TOTAL (BEAKER) (test code 1.0 mg/dL 0.2-1.2 = 377) BILIRUBIN DIRECT (BEAKER) (test 0.3 mg/dL 0.1-0.5 code = 706) ALKALINE PHOSPHATASE (BEAKER) (test 101 U/L 40-150 code = 346) AST (SGOT) (BEAKER) (test code = 32 U/L 5-34 353) ALT (SGPT) (BEAKER) (test code = 27 U/L 6-55 347) Jewel Hole Gauger ID - BSPROTHROMBIN TIME/[id number] 17:03:01 Test Item Value Reference Range Interpretation Comments PROTIME (BEAKER) 14.7 seconds 11.9-14.2 H (test code = 759) INR (BEAKER) (test 1.17 See_Comment [Automat ed message] code = 370) The system Dizzion generated this result transmitted ref erence range: <=5.90. The reference range was not used to int erpret this result as normal/abnormal . RECOMMENDED COUMADIN/WARFARIN INR THERAPY RANGESSTANDARD DOSE: 2.0 - 3.0 Includes: PROPHYLAXIS for venous thrombosis, systemic embolization; TREATMENT for venous thrombosis and/or pulmonary embolus.HIGH RISK: Target INR is 2.5-3.5 for patients with mechanical heart valves.CBC W/PLT COUNT & AUTO [id number] 16:54:18 Test Item Value Reference Range Interpretation Comments WHITE BLOOD CELL COUNT (BEAKER) 4.8 K/ L 3.5-10.5 (test code = 775) RED BLOOD CELL COUNT (BEAKER) 4.59 M/ L 4.63-6.08 L (test code = 761) HEMOGLOBIN (BEAKER) (test code = 13.0 GM/DL 13.7-17.5 L 410) HEMATOCRIT (BEAKER) (test code = 40.4 % 40.1-51.0 411) MEAN CORPUSCULAR VOLUME (BEAKER) 88 fL 79-92 (test code = 753) MEAN CORPUSCULAR HEMOGLOBIN 28.3 pg 25.7-32.2 (BEAKER) (test code = 751) MEAN CORPUSCULAR HEMOGLOBIN CONC 32.2 GM/DL 32.3-36.5 L (BEAKER) (test code = 752) RED CELL DISTRIBUTION WIDTH 16.6 % 11.6-14.4 H (BEAKER) (test code = 412) PLATELET COUNT (BEAKER) (test code 78 K/CU MM 150-450 L = 756) MEAN PLATELET VOLUME (BEAKER) 12.1 fL 9.4-12.4 (test code = 754) NUCLEATED RED BLOOD CELLS (BEAKER) 0 /100 WBC 0-0 (test code = 413) NEUTROPHILS RELATIVE PERCENT 63 % (BEAKER) (test code = 429) LYMPHOCYTES RELATIVE PERCENT 24 % (BEAKER) (test code = 430) MONOCYTES RELATIVE PERCENT 11 % (BEAKER) (test code = 431) EOSINOPHILS RELATIVE PERCENT 2 % (BEAKER) (test code = 432) BASOPHILS RELATIVE PERCENT 1 % (BEAKER) (test code = 437) NEUTROPHILS ABSOLUTE COUNT 2.99 K/ L 1.78-5.38 (BEAKER) (test code = 670) LYMPHOCYTES ABSOLUTE COUNT 1.13 K/ L 1.32-3.57 L (BEAKER) (test code = 414) MONOCYTES ABSOLUTE COUNT (BEAKER) 0.51 K/ L 0.30-0.82 (test code = 415) EOSINOPHILS ABSOLUTE COUNT 0.09 K/ L 0.04-0.54 (BEAKER) (test code = 416) BASOPHILS ABSOLUTE COUNT (BEAKER) 0.04 K/ L 0.01-0.08 (test code = 417) IMMATURE GRANULOCYTES-RELATIVE 0.20 % 0.00-1.00 PERCENT (BEAKER) (test code = 2801) POC-Glucose [id number] 17:52:15 Test Item Value Reference Range Interpretation Comments POC-Glucose Meter (test 186 mg/dL 70-110 H : TE STED AT [facility] code = 1538) 6720 [facility], 770 30: Jewel Hole Gauger/Techni edwige ID = [id number] for HIPOLIOT KRUEGER Lab Interpretation (test Abnormal code = 68777-5) [facility] [id number] 17:52:15 Test Item Value Reference Range Interpretation Comments POC-GLUCOSE METER 186 mg/dL 70-110 H : TESTED A T [facility] 6720 (BEAKER) (test code = [facility], 1538) 23717: Jewel Hole Gauger/Techni edwige ID = [id number] for TH OMPSON, ABHIJEET POCT-GLUCOSE [id number] 12:14:50 Test Item Value Reference Range Interpretation Comments POC-GLUCOSE METER 198 mg/dL 70-110 H : TESTED A T [facility] 6720 (BEAKER) (test code = [facility], 1538) 48432: Jewel Hole Gauger/Techni edwige ID = [id number] for TH OMPSON, ABHIJEET POCT-GLUCOSE [id number] 06:55:15 Test Item Value Reference Range Interpretation Comments POC-GLUCOSE METER 126 mg/dL 70-110 H : TESTED A T [facility] 6720 (BEAKER) (test code [facility], = 1538) 35131: Jewel Hole Gauger/Techni edwige ID = [id number] for IMANI LOPEZ HEPATIC FUNCTION [id number] 06:13:00 Test Item Value Reference Range Interpretation Comments TOTAL PROTEIN (BEAKER) (test code = 6.7 gm/dL 6.0-8.3 770) ALBUMIN (BEAKER) (test code = 1145) 3.5 g/dL 3.5-5.0 BILIRUBIN TOTAL (BEAKER) (test code 1.2 mg/dL 0.2-1.2 = 377) BILIRUBIN DIRECT (BEAKER) (test 0.4 mg/dL 0.1-0.5 code = 706) ALKALINE PHOSPHATASE (BEAKER) (test 61 U/L 40-150 code = 346) AST (SGOT) (BEAKER) (test code = 16 U/L 5-34 353) ALT (SGPT) (BEAKER) (test code = 15 U/L 6-55 347) Jewel Hole Gauger ID - PIAYA LPOCT-GLUCOSE [id number] 06:12:04 Test Item Value Reference Range Interpretation Comments POC-GLUCOSE METER 203 mg/dL 70-110 H : TESTED A T [facility] 6720 (BEAKER) (test code = [facility], 1538) 25620: Jewel Hole Gauger/Techni edwige ID = [id number] for ABHIJEET LI POCT-GLUCOSE [id number] 16:00:31 Test Item Value Reference Range Interpretation Comments POC-GLUCOSE METER 181 mg/dL 70-110 H : TESTED A T [facility] 6720 (BEAKER) (test code = [facility], 1538) 25367: Jewel Hole Gauger/Techni edwige ID = [id number] for BULL GALEANA POCT-GLUCOSE [id number] 07:04:23 Test Item Value Reference Range Interpretation Comments POC-GLUCOSE METER 183 mg/dL 70-110 H : TESTED A T [facility] 6720 (BEAKER) (test code [facility], = 1538) 82692: Jewel Hole Gauger/Techni edwige ID = [id number] for JOHN IMANI CT, [id number] 04:31:00Unlisted Reason for Exam - Click Yes and Enter Reason Below->NoProtocol Please Specify:->Standard ProtocolWill this procedure require oral contrast?->No [facility] : 1965 Sex: MFINALREPORT TECHNIQUE: CT of the abdomen and pelvis WITHOUT intravenous contrast andWITHOUT oral contrast. Dose modulation, iterative reconstruction, and/or weight-based adjustment of the mA/kV was utilized to reduce the radiation dose to as low as reasonably achievable. INDICATION: Abdominal pain, acute COMPARISON: None. FINDINGS: ABSENCE OF INTRAVENOUS CONTRAST DECREASES SENSITIVITY FOR DETECTION OF FOCAL LESIONS AND VASCULAR PATHOLOGY. LOWER THORAX: Unremarkable. HEPATOBILIARY: No focal hepatic lesions. Contour of the liver is nodular. Gallbladder is unremarkable. No biliary ductal dilatation.SPLEEN: Splenomegaly with length of 17.6 cm.PANCREAS: No focal masses or ductal dilatat ion. ADRENALS: No adrenal nodules.KIDNEYS/URETERS: No hydronephrosis, stones, or exophytic masses.PELVIC ORGANS/BLADDER: Unremarkable. PERITONEUM/RETROPERITONEUM: No free air or fluid.LYMPH NODES: No ly mphadenopathy.VESSELS: Moderate atherosclerosis of aorta and branching vessels without aneurysmal dilatation. GI TRACT: No obstruction or wall thickening. Normal appendix. There are a few noninflamed sigmoid diverticula. BONES AND SOFT TISSUES: No acute osseous abnormality. Soft tissues are unremarkable. IMPRESSION: 1. No acute abnormality on CT of the abdomen and pelvis without contrast. 2. Cirrhosis with sequela of portal hypertension including splenomegaly and trace ascites. 3. Mild sigmoid diverticulosis. Signed: Jean-Paul Springer MDReport Verified Date/Time: 10/11/2022 04:31:29 POCT-GLUCOSE [id number] 21:36:45 Test Item Value Reference Range Interpretation Comments POC-GLUCOSE METER 229 mg/dL 70-110 H : TESTED A T [facility] 6720 (CHRISTIANO) ([facility], = 1538) [address]: Jewel Hole Gauger/Techni edwige ID = [id number] for IMANI LOPEZ BASIC METABOLIC [id number] 15:53:49 Test Item Value Reference Range Interpretation Comments SODIUM (BEAKER) 134 meq/L 136-145 L (test code = 381) POTASSIUM 3.9 meq/L 3.5-5.1 Specimen slight ly (BEAKER) (test hemolyzed code = 379) CHLORIDE (BEAKER) 101 meq/L 98-107 (test code = 382) CO2 (BEAKER) 18 meq/L 22-29 L (test code = 355) BLOOD UREA 12 mg/dL 7-21 NITROGEN (BEAKER) (test code = 354) CREATININE 0.77 mg/dL 0.57-1.25 Specimen slight ly (BEAKER) (test hemolyzed code = 358) GLUCOSE RANDOM 291 mg/dL 70-105 H (BEAKER) (test code = 652) CALCIUM (BEAKER) 9.8 mg/dL 8.4-10.2 (test code = 697) EGFR (BEAKER) 105 Interpretatio n of eGFR [...] not appl icable for dialysis patien ts Jewel Hole Gauger ID - BSSpecimen slightly ictericCBC W/PLT COUNT & AUTO DIFFERENTIAL 2022-10-10 15:45:06 Test Item Value Reference Range Interpretation Comments WHITE BLOOD CELL COUNT (BEAKER) 6.3 K/ L 3.5-10.5 (test code = 775) RED BLOOD CELL COUNT (BEAKER) 4.52 M/ L 4.63-6.08 L (test code = 761) HEMOGLOBIN (BEAKER) (test code = 12.7 GM/DL 13.7-17.5 L 410) HEMATOCRIT (BEAKER) (test code = 37.0 % 40.1-51.0 L 411) MEAN CORPUSCULAR VOLUME (BEAKER) 82 fL 79-92 (test code = 753) MEAN CORPUSCULAR HEMOGLOBIN 28.1 pg 25.7-32.2 (BEAKER) (test code = 751) MEAN CORPUSCULAR HEMOGLOBIN CONC 34.3 GM/DL 32.3-36.5 (BEAKER) (test code = 752) RED CELL DISTRIBUTION WIDTH 15.9 % 11.6-14.4 H (BEAKER) (test code = 412) PLATELET COUNT (BEAKER) (test code 79 K/CU MM 150-450 L = 756) MEAN PLATELET VOLUME (BEAKER) 9.9 fL 9.4-12.4 (test code = 754) NUCLEATED RED BLOOD CELLS (BEAKER) 0 /100 WBC 0-0 (test code = 413) NEUTROPHILS RELATIVE PERCENT 88 % (BEAKER) (test code = 429) LYMPHOCYTES RELATIVE PERCENT 7 % (BEAKER) (test code = 430) MONOCYTES RELATIVE PERCENT 5 % (BEAKER) (test code = 431) EOSINOPHILS RELATIVE PERCENT 0 % (BEAKER) (test code = 432) BASOPHILS RELATIVE PERCENT 0 % (BEAKER) (test code = 437) NEUTROPHILS ABSOLUTE COUNT 5.50 K/ L 1.78-5.38 H (BEAKER) (test code = 670) LYMPHOCYTES ABSOLUTE COUNT 0.43 K/ L 1.32-3.57 L (BEAKER) (test code = 414) MONOCYTES ABSOLUTE COUNT (BEAKER) 0.31 K/ L 0.30-0.82 (test code = 415) EOSINOPHILS ABSOLUTE COUNT 0.00 K/ L 0.04-0.54 L (BEAKER) (test code = 416) BASOPHILS ABSOLUTE COUNT (BEAKER) 0.01 K/ L 0.01-0.08 (test code = 417) IMMATURE GRANULOCYTES-RELATIVE 0.30 % 0.00-1.00 PERCENT (BEAKER) (test code = 2801) POCT-GLUCOSE [id number] 12:40:08 Test Item Value Reference Range Interpretation Comments POC-GLUCOSE METER 278 mg/dL 70-110 H : TESTED A T [facility] 6720 (BEAKER) (test code = [place], 1538) 794[address]: Jewel Hole Gauger/Techni edwige ID = [id number] for ABHIJEET LI POCT-GLUCOSE [id number] 06:34:33 Test Item Value Reference Range Interpretation Comments POC-GLUCOSE METER 218 mg/dL 70-110 H : TESTED A T [facility] 6720 (BEAKER) (test code = [facility], 1538) [address]: Jewel Hole Gauger/Techni edwige ID = [id number] for Janessa Chapman POCT-GLUCOSE [id number] 21:23:45 Test Item Value Reference Range Interpretation Comments POC-GLUCOSE METER 216 mg/dL 70-110 H : TESTED A T [facility] 6720 (BEAKER) (test code = [facility], 1538) 48565: Jewel Hole Gauger/Techni edwige ID = [id number] for Janessa Chapman HEMOGLOBIN [id number] 13:03:02 Test Item Value Reference Range Interpretation Comments HEMOGLOBIN A1C 7.6 % See_Comment H [Automated m essage] ELECTROPHORESIS (BEAKER) The system which (test code = 3811) generated this result transmitted ref erence range: <=5.6%. The reference range was not used to int erpret this result as normal/abnormal . "The A1c is measured using a NGSP-certified method. HbA1c value equal to or greater than 6.5% as thediagnosis cutoff for diabetes. An HbA1c value of 5.7- 6.4% indicates increased risk for diabetes (prediabetes)."Jewel Hole Gauger ID - ADMPOCT- GLUCOSE [id number] 12:24:23 Test Item Value Reference Range Interpretation Comments POC-GLUCOSE METER 179 mg/dL 70-110 H : TESTED A T [facility] 6720 (BEAKER) (test code = [facility], 153) 45347: Jewel Hole Gauger/Techni edwige ID = [id number] for Joana Solis POCT-GLUCOSE [id number] 06:07:38 Test Item Value Reference Range Interpretation Comments POC-GLUCOSE METER 154 mg/dL 70-110 H : TESTED A T [facility] 6720 (BEAKER) (test code = [facility], 1538) 65680: Jewel Hole Gauger/Techni edwige ID = [id number] for Janessa Chapman [id number] 05:21:54 Test Item Value Reference Range Interpretation Comments LIPASE (BEAKER) (test code = 749) 21 U/L 8-78 Jewel Hole Gauger ID - SEBAS LLIPID [id number] 05:21:53 Test Item Value Reference Range Interpretation Comments TRIGLYCERIDES (BEAKER) (test code = 93 mg/dL 540) CHOLESTEROL (BEAKER) (test code = 195 mg/dL 631) HDL CHOLESTEROL (BEAKER) (test code 28 mg/dL = 976) LDL CHOLESTEROL CALCULATED (BEAKER) 148 mg/dL (test code = 633) Triglyceride Reference Range: Low Risk <150 Borderline 150-199 High Risk 200- 499 Very High Risk >=500Cholesterol Reference Range: Low Risk <200 Borderline 200-239 High Risk >240HDL Cholesterol Reference Range: Low Risk >=60 High Risk <40LDL Cholesterol Reference Range: Optimal <100 Near Optimal 100-129 Borderline 130-159 High 160-189 Very High >=190 Jewel Hole Gauger ID - PIAYA LHEPATIC FUNCTION [id number] 05:21:53 Test Item Value Reference Range Interpretation Comments TOTAL PROTEIN (BEAKER) (test code = 6.5 gm/dL 6.0-8.3 770) ALBUMIN (BEAKER) (test code = 1145) 3.4 g/dL 3.5-5.0 L BILIRUBIN TOTAL (BEAKER) (test code 1.4 mg/dL 0.2-1.2 H = 377) BILIRUBIN DIRECT (BEAKER) (test 0.5 mg/dL 0.1-0.5 code = 706) ALKALINE PHOSPHATASE (BEAKER) (test 64 U/L 40-150 code = 346) AST (SGOT) (BEAKER) (test code = 13 U/L 5-34 353) ALT (SGPT) (BEAKER) (test code = 15 U/L 6-55 347) Jewel Hole Gauger ID - PIAYA LBASIC METABOLIC [id number] 05:21:52 Test Item Value Reference Range Interpretation Comments SODIUM (BEAKER) 131 meq/L 136-145 L (test code = 381) POTASSIUM 3.4 meq/L 3.5-5.1 L (BEAKER) (test code = 379) CHLORIDE (BEAKER) 102 meq/L 98-107 (test code = 382) CO2 (BEAKER) 23 meq/L 22-29 (test code = 355) BLOOD UREA 12 mg/dL 7-21 NITROGEN (BEAKER) (test code = 354) CREATININE 0.71 mg/dL 0.57-1.25 (BEAKER) (test code = 358) GLUCOSE RANDOM 158 mg/dL 70-105 H (BEAKER) (test code = 652) CALCIUM (BEAKER) 9.0 mg/dL 8.4-10.2 (test code = 697) EGFR (BEAKER) 107 Interpretatio n of eGFR [...] not appl icable for dialysis patien ts Jewel Hole Gauger ID - SEBAS [id number] 05:21:52 Test Item Value Reference Range Interpretation Comments MAGNESIUM (BEAKER) (test code = 1.7 mg/dL 1.6-2.6 627) Jewel Hole Gauger ID - SEBAS [id number] 05:21:52 Test Item Value Reference Range Interpretation Comments PHOSPHORUS (BEAKER) (test code = 3.1 mg/dL 2.3-4.7 604) Jewel Hole Gauger ID - SEBAS LPROTHROMBIN [id number] 04:36:13 Test Item Value Reference Range Interpretation Comments PROTIME (BEAKER) 16.0 seconds 11.9-14.2 H (test code = 759) INR (BEAKER) (test 1.37 See_Comment [Automat ed message] code = 370) The system Dizzion generated this result transmitted ref erence range: <=5.90. The reference range was not used to int erpret this result as normal/abnormal . RECOMMENDED COUMADIN/WARFARIN INR THERAPY RANGESSTANDARD DOSE: 2.0 - 3.0 Includes: PROPHYLAXIS for venous thrombosis, systemic embolization; TREATMENT for venous thrombosis and/or pulmonary embolus.HIGH RISK: Target INR is 2.5-3.5 for patients with mechanical heart valves.CBC W/PLT COUNT & AUTO [id number] 04:21:07 Test Item Value Reference Range Interpretation Comments WHITE BLOOD CELL COUNT (BEAKER) 4.1 K/ L 3.5-10.5 (test code = 775) RED BLOOD CELL COUNT (BEAKER) 3.85 M/ L 4.63-6.08 L (test code = 761) HEMOGLOBIN (BEAKER) (test code = 10.9 GM/DL 13.7-17.5 L 410) HEMATOCRIT (BEAKER) (test code = 32.4 % 40.1-51.0 L 411) MEAN CORPUSCULAR VOLUME (BEAKER) 84 fL 79-92 (test code = 753) MEAN CORPUSCULAR HEMOGLOBIN 28.3 pg 25.7-32.2 (BEAKER) (test code = 751) MEAN CORPUSCULAR HEMOGLOBIN CONC 33.6 GM/DL 32.3-36.5 (BEAKER) (test code = 752) RED CELL DISTRIBUTION WIDTH 16.0 % 11.6-14.4 H (BEAKER) (test code = 412) PLATELET COUNT (BEAKER) (test code 61 K/CU MM 150-450 L = 756) MEAN PLATELET VOLUME (BEAKER) 10.4 fL 9.4-12.4 (test code = 754) NUCLEATED RED BLOOD CELLS (BEAKER) 0 /100 WBC 0-0 (test code = 413) NEUTROPHILS RELATIVE PERCENT 53 % (BEAKER) (test code = 429) LYMPHOCYTES RELATIVE PERCENT 31 % (BEAKER) (test code = 430) MONOCYTES RELATIVE PERCENT 12 % (BEAKER) (test code = 431) EOSINOPHILS RELATIVE PERCENT 4 % (BEAKER) (test code = 432) BASOPHILS RELATIVE PERCENT 1 % (BEAKER) (test code = 437) NEUTROPHILS ABSOLUTE COUNT 2.13 K/ L 1.78-5.38 (BEAKER) (test code = 670) LYMPHOCYTES ABSOLUTE COUNT 1.24 K/ L 1.32-3.57 L (BEAKER) (test code = 414) MONOCYTES ABSOLUTE COUNT (BEAKER) 0.49 K/ L 0.30-0.82 (test code = 415) EOSINOPHILS ABSOLUTE COUNT 0.14 K/ L 0.04-0.54 (BEAKER) (test code = 416) BASOPHILS ABSOLUTE COUNT (BEAKER) 0.03 K/ L 0.01-0.08 (test code = 417) IMMATURE GRANULOCYTES-RELATIVE 0.50 % 0.00-1.00 PERCENT (BEAKER) (test code = 2801) HCV [id number] 06:52:12 Test Item Value Reference Range Interpretation Comments HCV Ab (test code = 23184-3) Negative HCV Semi-Quantitative (test code = 63512-1) [facility] [id number] 06:52:12 Test Item Value Reference Range Interpretation Comments HCV Ab (test code = 97891-6) Negative HCV Semi-Quantitative (test code = 15830-4) [facility] [id number] 00:33:05 Test Item Value Reference Range Interpretation Comments TSH (test code = See_Comment [Automated message] [id number]) The system Dizzion generated this result transmitted ref erence range: 0.45 - 4 .70 mIU/L. The refe rence range was not u sed to interpret this result as normal/abnor mal. Lab Interpretation (test Normal code = 76274-0) [facility] [id number] 00:33:05 Test Item Value Reference Range Interpretation Comments TSH (test code = See_Comment [Automated message] [id number]) The system Dizzion generated this result transmitted ref erence range: 0.45 - 4 .70 mIU/L. The refe rence range was not u sed to interpret this result as normal/abnor mal. Lab Interpretation (test Normal code = 28604-9) [facility]viewLIPID PANEL (67913)(TOTAL CHOLESTEROL, TRIGLYCERIDES, HDL)2022-08-08 00:04:19 Test Item Value Reference Range Interpretation Comments CHOL (test code = 190 mg/dL 120-200 2850516150) HDL (test code = 42 mg/dL See_Comment [Automated message] [id number]) The system Dizzion generated this result transmit freddy reference range : >=40. The refer ence range was not u sed to interpret th is result as normal/abnormal . HDLC RATIO (test code = See_Comment [Au tomated message] 7025724441) The system Dizzion generated this result transmit freddy reference range : <=5.0. The refe rence range was not u sed to interpret th is result as normal/abnormal . TRIG (test code = 126 mg/dL 30-170 4484216723) LDL CHOL (test code = 123 mg/dL See_Comment [Auto mated message] 16608-5) The system Dizzion generated this result transmit freddy reference range : <=160. The refe rence range was not u sed to interpret th is result as normal/abnormal . VLDL (test code = 25 mg/dL 5-60 8707493578) Lab Interpretation (test Normal code = 62824-8) [facility] (43345)(TOTAL CHOLESTEROL, TRIGLYCERIDES, HDL)2022-08-08 00:04:19 Test Item Value Reference Range Interpretation Comments CHOL (test code = 190 mg/dL 120-200 8923622338) HDL (test code = 42 mg/dL See_Comment [Automated message] [id number]) The system Dizzion generated this result transmit freddy reference range : >=40. The refer ence range was not u sed to interpret th is result as normal/abnormal . HDLC RATIO (test code = See_Comment [Au tomated message] 8904278307) The system Dizzion generated this result transmit freddy reference range : <=5.0. The refe rence range was not u sed to interpret th is result as normal/abnormal . TRIG (test code = 126 mg/dL 30-170 1711670971) LDL CHOL (test code = 123 mg/dL See_Comment [Auto mated message] 18257-3) The system Dizzion generated this result transmit freddy reference range : <=160. The refe rence range was not u sed to interpret th is result as normal/abnormal . VLDL (test code = 25 mg/dL 5-60 3740081393) Lab Interpretation (test Normal code = 85554-3) [facility]. METABOLIC PANEL (23225)2022-08-08 00:04:14 Test Item Value Reference Range Interpretation Comments NA (test code = 137 mmol/L 135-145 0408269102) K (test code = 4.5 mmol/L 3.5-5 3690411748) CL (test code = 100 mmol/L 98-108 8131593668) CO2 TOTAL (test code = 27 mmol/L 23-31 2288996228) AGAP (test code = 2-16 3889708154) BUN (test code = 6 mg/dL 7-23 L 3005686305) GLUCOSE (test code = 203 mg/dL 70-110 H 1839008608) CREATININE (test code = 0.71 mg/dL 0.6-1.25 1199884379) TOTAL BILI (test code = 0.5 mg/dL 0.1-1.0 8721091780) CALCIUM (test code = 9.8 mg/dL 8.6-10.6 6886902399) T PROTEIN (test code = 7.2 g/dL 6.3-8.2 1976315247) ALBUMIN (test code = 4.1 g/dL 3.5-5 1358264280) ALK PHOS (test code = 74 U/L 34-122 5166947385) ALTv (test code = 29 U/L 5-50 1742-6) AST(SGOT) (test code = 28 U/L 13-40 4805298567) eGFR (test code = mL/min/1.73m2 6085606519) LYNDSAY (test code = LYNDSAY) Association of [...] tests). Lab Interpretation Abnormal (test code = 32331-9) [facility]. METABOLIC PANEL (15292)2022-08-08 00:04:14 Test Item Value Reference Range Interpretation Comments NA (test code = 137 mmol/L 135-145 0590935001) K (test code = 4.5 mmol/L 3.5-5 9712784440) CL (test code = 100 mmol/L 98-108 2202610467) CO2 TOTAL (test code = 27 mmol/L 23-31 7419589957) AGAP (test code = 2-16 3999459553) BUN (test code = 6 mg/dL 7-23 L 2774276394) GLUCOSE (test code = 203 mg/dL 70-110 H 0922101727) CREATININE (test code = 0.71 mg/dL 0.6-1.25 4729293991) TOTAL BILI (test code = 0.5 mg/dL 0.1-1.0 6491082192) CALCIUM (test code = 9.8 mg/dL 8.6-10.6 3474294586) T PROTEIN (test code = 7.2 g/dL 6.3-8.2 8587937940) ALBUMIN (test code = 4.1 g/dL 3.5-5 3990090522) ALK PHOS (test code = 74 U/L 34-122 5618184396) ALTv (test code = 29 U/L 5-50 1742-6) AST(SGOT) (test code = 28 U/L 13-40 6084025670) eGFR (test code = mL/min/1.73m2 1050768569) LYNDSAY (test code = LYNDSAY) Association of [...] tests). Lab Interpretation Abnormal (test code = 17687-4) [facility] METABOLIC [id number] 17:57:44 Test Item Value Reference Range Interpretation [...] not appl icable for dialysis patien ts Jewel Hole Gauger ID - [id number] 17:57:44 Test Item Value Reference Range Interpretation Comments MAGNESIUM (BEAKER) (test code = 1.9 mg/dL 1.6-2.6 627) Jewel Hole Gauger ID - [id number] 17:57:44 Test Item Value Reference Range Interpretation Comments PHOSPHORUS (BEAKER) (test code = 3.5 mg/dL 2.3-4.7 604) Jewel Hole Gauger ID - ADMINHEPATIC FUNCTION [id number] 17:57:44 Test Item Value Reference Range Interpretation [...] code = 58 U/L 6-55 H 347) Jewel Hole Gauger ID - ADMINPROTHROMBIN TIME/[id number] 17:21:32 Test Item Value Reference Range Interpretation Comments PROTIME (BEAKER) 14.6 seconds 11.9-14.2 H (test code = 759) INR (BEAKER) (test 1.21 See_Comment [Automat ed message] code = 370) The system Dizzion generated this result transmitted ref erence range: <=5.90. The reference range was not used to int erpret this result as normal/abnormal . RECOMMENDED COUMADIN/WARFARIN INR THERAPY RANGESSTANDARD DOSE: 2.0 - 3.0 Includes: PROPHYLAXIS for venous thrombosis, systemic embolization; TREATMENT for venous thrombosis and/or pulmonary embolus.HIGH RISK: Target INR is 2.5-3.5 for patients with mechanical heart valves.CBC W/PLT COUNT & AUTO [id number] 17:13:11 Test Item Value Reference Range Interpretation [...] (test code = 2801) Drug screen, urine, [id number] 09:56:19 Test Item Value Reference Range Interpretation Comments Scan Result (test code = See scanned report [id number]) LYNDSAY (test code = LYNDSAY) See scanned report [facility], [id number] 09:56:19 Test Item Value Reference Range Interpretation Comments Scan Result (test code = See scanned report [id number]) LYNDSAY (test code = LYNDSAY) See scanned report [facility], urine, [id number] 09:56:19 Test Item Value Reference Range Interpretation Comments Scan Result (test code = See scanned report [id number]) LYNDSAY (test code = LYNDSAY) See scanned report [facility], urine, [id number] 09:56:19 Test Item Value Reference Range Interpretation Comments Scan Result (test code = See scanned report [id number]) LYNDSAY (test code = LYNDSAY) See scanned report [facility]DR[facility]EN, URINE, [id number] 09:56:19 Test Item Value Reference Range Interpretation Comments SCAN RESULT (test code = See scanned report [id number]) See scanned reportANTI-MITOCHONDRIAL AB, REFLEX TO [id number] 10:08:47 Test Item Value Reference Range Interpretation Comments SCAN RESULT (test code = 1034125) HEPATITIS B PCR, [id number] 16:22:43 Test Item Value Reference Range Interpretation Comments HBV RESULT COMPONENT HBV DNA not detected HBV DNA not detected (BEAKER) (test code = 2701) This test uses a Real-Time Polymerase Chain Reaction (RT-PCR) methodology and was performed using YOU AmpliPrep/YOU TaqMan HBV Test, v2.0 (Anand [facility] [employer]Reportable range for this assay is 20 - 170,000,000 IU per mL (1.30 - 8.23 Log IU/mL).PHOSPHATIDYLETHANOL, [id number] 10:47:03 Test Item Value Reference Range Interpretation Comments PHOSPHATIDYLETHANOL (PETH) See scanned (test code = 1646857) report See scanned reportPOC-Glucose [id number] 08:56:45 Test Item Value Reference Range Interpretation Comments POC-Glucose Meter (test 221 mg/dL 70-110 H : TE STED AT [facility] code = 1538) [address] [place] [address], 770 30: Jewel Hole Gauger/Techni edwige ID = [id number] for Makenzie-Jim David ia Lab Interpretation (test Abnormal code = 68467-4) [facility]Glucose [id number] 08:56:45 Test Item Value Reference Range Interpretation Comments POC-Glucose Meter (test 221 mg/dL 70-110 H : TE STED AT [facility] code = 1538) [address] [place] [address], 770 30: Jewel Hole Gauger/Techni edwige ID = [id number] for Makenzie-Jim David ia Lab Interpretation (test Abnormal code = 23931-5) [facility]-Glucose [id number] 08:56:45 Test Item Value Reference Range Interpretation Comments POC-Glucose Meter (test 221 mg/dL 70-110 H : TE STED AT [facility] code = 1538) [address] [place] [address], 770 30: Jewel Hole Gauger/Techni edwige ID = [id number] for Makenzie-Jim David ia Lab Interpretation (test Abnormal code = 76110-6) [facility] [id number] 08:56:45 Test Item Value Reference Range Interpretation Comments POC-GLUCOSE METER 221 mg/dL 70-110 H : TESTED A T [facility] 6720 (BEAKER) (test code = [facility] Alva [facility], 1538) [address]: Jewel Hole Gauger/Techni edwige ID = [id number] for Makenzie-Lina Fernandezk ia COMPREHENSIVE METABOLIC [id number] 04:26:22 Test Item Value Reference Range Interpretation [...] not appl icable for dialysis patien ts Jewel Hole Gauger ID - MELANIE WPROTHROMBIN TIME/[id number] 04:23:40 Test Item Value Reference Range Interpretation Comments PROTIME (BEAKER) 14.9 seconds 11.9-14.2 H (test code = 759) INR (BEAKER) (test 1.19 See_Comment [Automat ed message] code = 370) The system Dizzion generated this result transmitted ref erence range: <=5.90. The reference range was not used to int erpret this result as normal/abnormal . RECOMMENDED COUMADIN/WARFARIN INR THERAPY RANGESSTANDARD DOSE: 2.0 - 3.0 Includes: PROPHYLAXIS for venous thrombosis, systemic embolization; TREATMENT for venous thrombosis and/or pulmonary embolus.HIGH RISK: Target INR is 2.5-3.5 for patients with mechanical heart valves.CBC W/PLT COUNT & AUTO [id number] 04:00:34 Test Item Value Reference Range Interpretation [...] PERCENT (BEAKER) (test code = 2801) POCT-GLUCOSE [id number] 22:32:07 Test Item Value Reference Range Interpretation Comments POC-GLUCOSE METER 227 mg/dL 70-110 H : TESTED A T [facility] 6720 (BEAKER) (test code = [facility], 1538) [address]: Jewel Hole Gauger/Techni edwige ID = [id number] for Isamar Brunson POCT-GLUCOSE [id number] 15:48:32 Test Item Value Reference Range Interpretation Comments POC-GLUCOSE METER 193 mg/dL 70-110 H : TESTED A T [facility] 6720 (BEAKER) (test code = [facility] Neiron [facility], 1538) [address]: Jewel Hole Gauger/Techni edwige ID = [id number] for Gautam Newsome MR, ABDOMEN, [id number] 13:14:00Please perform with liver protocol/eovist Unlisted Reason for Exam - Click Yes and Enter Reason Below->Yes Unlisted Reason for Exam->[facility] : 1965 Sex: MFINALREPORT TECHNIQUE: MRI of [...] inflammation to suggest acute cholecystitis Signed: [facility] Verified Date/Time: 07/01/2022 13:14:01 Reading Location: [facility] C013Y CT Body Reading Room POCT-GLUCOSE [id number] 11:27:22 Test Item Value Reference Range Interpretation Comments POC-GLUCOSE METER 159 mg/dL 70-110 H : TESTED A T [facility] 6720 ([employer]™) (test code = ROGE Neiron [facility], 1538) [address]: Jewel Hole Gauger/Techni edwige ID = [id number] for Gautam Newsome POCT-GLUCOSE [id number] 07:51:19 Test Item Value Reference Range Interpretation Comments POC-GLUCOSE METER 145 mg/dL 70-110 H : TESTED A T [facility] 67[facility] ([employer]) (test code = CINTHIANH Artie [facility], 1538) 26619: Jewel Hole Gauger/Techni edwige ID = [id number] for Gautam Newsome POCT-GLUCOSE [id number] 06:42:08 Test Item Value Reference Range Interpretation Comments POC-GLUCOSE METER 148 mg/dL 70-110 H : TESTED A T [facility] 6720 (BEAKER) (test code = [place], 1538) [id number]: Jewel Hole Gauger/Techni edwige ID = [id number] for VENU TRAVIS COMPREHENSIVE METABOLIC [id number] 05:11:23 Test Item Value Reference Range Interpretation [...] not appl icable for dialysis patien ts Jewel Hole Gauger ID - [id number] LCBC W/PLT COUNT & AUTO [id number] 04:56:15 Test Item Value Reference Range Interpretation [...] PERCENT (BEAKER) (test code = 2801) PROTHROMBIN TIME/[id number] 04:37:26 Test Item Value Reference Range Interpretation Comments PROTIME (BEAKER) 16.1 seconds 11.9-14.2 H (test code = 759) INR (BEAKER) (test 1.38 See_Comment [Automat ed message] code = 370) The system Dizzion generated this result transmitted ref erence range: <=5.90. The reference range was not used to int erpret this result as normal/abnormal . RECOMMENDED COUMADIN/WARFARIN INR THERAPY RANGESSTANDARD DOSE: 2.0 - 3.0 Includes: PROPHYLAXIS for venous thrombosis, systemic embolization; TREATMENT for venous thrombosis and/or pulmonary embolus.HIGH RISK: Target INR is 2.5-3.5 for patients with mechanical heart valves.POCT-GLUCOSE [id number] 23:53:01 Test Item Value Reference Range Interpretation Comments POC-GLUCOSE METER 187 mg/dL 70-110 H : TESTED A T [facility] 6720 (BEAKER) (test [facility] = [facility], 1538) [address]: Jewel Hole Gauger/Techni edwige ID = [id number] for Jermaine' Shelly Bundya POCT-GLUCOSE [id number] 17:11:19 Test Item Value Reference Range Interpretation Comments POC-GLUCOSE METER 160 mg/dL 70-110 H : TESTED A T [facility] 6720 (BEAKER) (test code [facility], = 1538) 15[address]: Jewel Hole Gauger/Techni edwige ID = [id number] for BARAK WYMAN POCT-GLUCOSE [id number] 13:20:03 Test Item Value Reference Range Interpretation Comments POC-GLUCOSE METER 249 mg/dL 70-110 H : TESTED A T [facility] 6720 (BEAKER) (test code [facility], = 1538) 011[address]: Jewel Hole Gauger/Techni edwgie ID = [id number] for BARAK WYMAN THROMBOELASTOGRAPH (TEG)2022-06-30 09:19:46 Test [...] % 0.0-5.0 code = 1414) COMPREHENSIVE METABOLIC [id number] 08:27:43 Test Item Value Reference Range Interpretation [...] not appl icable for dialysis patien ts Jewel Hole Gauger ID - CHRISTIANA [id number] 06:38:39 Test Item Value Reference Range Interpretation Comments FIBRINOGEN LEVEL (BEAKER) (test 312 mg/dl 225-434 code = 658) PROTHROMBIN TIME/[id number] 06:38:32 Test Item Value Reference Range Interpretation Comments PROTIME (BEAKER) 16.9 seconds 11.9-14.2 H (test code = 759) INR (BEAKER) (test 1.46 See_Comment [Automat ed message] code = 370) The system Dizzion generated this result transmitted ref erence range: <=5.90. The reference range was not used to int erpret this result as normal/abnormal . RECOMMENDED COUMADIN/WARFARIN INR THERAPY RANGESSTANDARD DOSE: 2.0 - 3.0 Includes: PROPHYLAXIS for venous thrombosis, systemic embolization; TREATMENT for venous thrombosis and/or pulmonary embolus.HIGH RISK: Target INR is 2.5-3.5 for patients with mechanical heart valves.PROTHROMBIN TIME/[id number] 06:38:14 Test Item Value Reference Range Interpretation Comments PROTIME (BEAKER) 16.9 seconds 11.9-14.2 H (test code = 759) INR (BEAKER) (test 1.47 See_Comment [Automat ed message] code = 370) The system Dizzion generated this result transmitted ref erence range: <=5.90. The reference range was not used to int erpret this result as normal/abnormal . RECOMMENDED COUMADIN/WARFARIN INR THERAPY RANGESSTANDARD DOSE: 2.0 - 3.0 Includes: PROPHYLAXIS for venous thrombosis, systemic embolization; TREATMENT for venous thrombosis and/or pulmonary embolus.HIGH RISK: Target INR is 2.5-3.5 for patients with mechanical heart valves.CBC W/PLT COUNT & AUTO [id number] 06:32:12 Test Item Value Reference Range Interpretation [...] 417) IMMATURE GRANULOCYTES-RELATIVE 1 % 0-1 PERCENT ([facility]) (test code = 2801) POCT-GLUCOSE [id number] 06:10:10 Test Item Value Reference Range Interpretation Comments POC-GLUCOSE METER 153 mg/dL 70-110 H : TESTED A T [facility] 6720 ([facility]) (test code = [facility], 1538) 26[address]: Jewel Hole Gauger/Techni edwige ID = [id number] for Ne lson (contract), Colleen xis POCT-GLUCOSE [id number] 02:21:17 Test Item Value Reference Range Interpretation Comments POC-GLUCOSE METER 170 mg/dL 70-110 H : [facility] (test code = [facility], 153) [address]: Jewel Hole Gauger/Techni edwige ID = [id number] for Sp tasia (contract), Sandi a POCT-GLUCOSE [id number] 00:34:09 Test Item Value Reference Range Interpretation Comments POC-GLUCOSE METER 208 mg/dL 70-110 H : [facility] (test code = [facility], 1538) [address]: Jewel Hole Gauger/Techni edwige ID = [id number] for Ne lson (contract), Colleen xis POCT-GLUCOSE [id number] 17:59:46 Test Item Value Reference Range Interpretation Comments POC-GLUCOSE METER 236 mg/dL 70-110 H : Notified RN/MD: ([facility]) (test code = TESTED AT [place] [id number] 1538) [facility], [address]: Jewel Hole Gauger/Techni edwige ID = [id number] for MITCHELL YES, CLAUS HEMOGLOBIN AND [id number] 17:53:09 Test Item Value Reference Range Interpretation Comments HEMOGLOBIN (BEAKER) (test code = 7.7 GM/DL 13.7-17.5 L 410) HEMATOCRIT (BEAKER) (test code = 23.8 % 40.1-51.0 L 411) Jewel Hole Gauger ID - [id number] C PCR, [id number] 15:46:48 Test Item Value Reference Range Interpretation Comments HCV RESULT COMPONENT HCV RNA not detected HCV RNA not detected (BEAKER) (test code = 2699) This test uses a Real-Time Polymerase Chain Reaction (RT-PCR) methodology and was performed using YOU Ampliprep/YOU TaqMan HCV test kit version 2.0 ([employer]).Reportable range for this assay is 15 - 100,000,000 IU per mL (1.18 - 8.00 Log IU/mL).2D Echo W/Doppler(CW/PW/Color)2022-06-29 14:39:50 Ejection FractionSLEH ECHO [facility] Echo W/Doppler(CW/PW/Color)2022-06-29 14:39:50[facility]jection [facility] W/Doppler(CW/PW/Color)2022-06-29 14:39:50Ejection [facility]LEH [facility] Echo W/Doppler(CW/PW/Color) 2022-06-29 14:39:50Ejection [facility]SLEH [facility] [id number] 13:21:00 Test Item Value Reference Range Interpretation Comments CROSSMATCH (test code = 2264) COMPATIBLE Unit ABO (test code = A Neg [id number]) UNIT NUMBER (test code = [id number] 934-0) Status (test code = 5092278) READY Blood Bank Product (test code RED BLOOD CELLS = 2263) PRODUCT CODE (test code = [id number] 933-2) [facility] [id number] 13:21:00 Test Item Value Reference Range Interpretation Comments CROSSMATCH (test code = 2264) COMPATIBLE Unit ABO (test code = A Neg 3558013) UNIT NUMBER (test code = [id number] 934-0) Status (test code = 7655766) READY Blood Bank Product (test code RED BLOOD CELLS = 2263) PRODUCT CODE (test code = X5259P76 933-2) [facility] [id number] 13:21:00 Test Item Value Reference Range Interpretation Comments CROSSMATCH (test code = 2264) COMPATIBLE Unit ABO (test code = A Neg 3129500) UNIT NUMBER (test code = [id number] 934-0) Status (test code = 0712633) READY Blood Bank Product (test code RED BLOOD CELLS = 2263) PRODUCT CODE (test code = Q2533P60 933-2) [facility] [id number] 13:21:00 Test Item Value Reference Range Interpretation Comments CROSSMATCH (test code = 2264) COMPATIBLE Unit ABO (test code = A Neg 2225940) UNIT NUMBER (test code = [id number] 934-0) Status (test code = 6688116) READY Blood Bank Product (test code RED BLOOD CELLS = 2263) PRODUCT CODE (test code = H0856Z66 933-2) [facility] [id number] 12:30:58 Test Item Value Reference Range Interpretation Comments POC-GLUCOSE METER 299 mg/dL 70-110 H : Notified RN/MD: (BEAKER) (test code = TESTED AT [facility] 0630 4814) [facility], [address]: Jewel Hole Gauger/Techni edwige ID = [id number] for MITCHELL MARIAH, CLAUS CBC W/PLT COUNT & AUTO [id number] 10:56:05 Test Item Value Reference Range Interpretation [...] PERCENT (BEAKER) (test code = 2801) POCT-GLUCOSE [id number] 06:41:24 Test Item Value Reference Range Interpretation Comments POC-GLUCOSE METER 186 mg/dL 70-110 H : TESTED A T [facility] 6720 (BEAKER) (test code = [place], 1538) [address]: Jewel Hole Gauger/Techni edwige ID = [id number] for Karol sewell (contract)Colleen CBC (HEMOGRAM ONLY)2022-06-29 [...] WBC 0-0 (test code = 413) CALCIUM, [id number] 05:41:59 Test Item Value Reference Range Interpretation Comments CALCIUM IONIZED (BEAKER) (test 1.16 mmol/L 1.12-1.27 code = 698) PH, BLOOD (BEAKER) (test code = 7.34 1810) [id number] 05:30:10 Test Item Value Reference Range Interpretation Comments MAGNESIUM (BEAKER) (test code = 1.8 mg/dL 1.6-2.6 627) Jewel Hole Gauger ID - CHRISTIANA MCOMPREHENSIVE METABOLIC [id number] 05:30:09 Test Item Value Reference Range Interpretation [...] not appl icable for dialysis patien ts Jewel Hole Gauger ID - CHRISTIANA [id number] 05:03:31 Test Item Value Reference Range Interpretation Comments PARTIAL THROMBOPLASTIN TIME 33.4 seconds 22.5-36.0 (BEAKER) (test code = 760) PROTHROMBIN TIME/[id number] 05:02:32 Test Item Value Reference Range Interpretation Comments PROTIME (BEAKER) 15.7 seconds 11.9-14.2 H (test code = 759) INR (BEAKER) (test 1.28 See_Comment [Automat ed message] code = 370) The system Dizzion generated this result transmitted ref erence range: <=5.90. The reference range was not used to int erpret this result as normal/abnormal . RECOMMENDED COUMADIN/WARFARIN INR THERAPY RANGESSTANDARD DOSE: 2.0 - 3.0 Includes: PROPHYLAXIS for venous thrombosis, systemic embolization; TREATMENT for venous thrombosis and/or pulmonary embolus.HIGH RISK: Target INR is 2.5-3.5 for patients with mechanical heart valves.POCT-GLUCOSE [id number] 22:37:17 Test Item Value Reference Range Interpretation Comments POC-GLUCOSE METER 142 mg/dL 70-110 H : TESTED A T [facility] 6720 (BEAKER) (test code = [facility], 1538) [address]678: Jewel Hole Gauger/Techni edwige ID = [id number] for Karol sewell (contract)Colleen POCT-GLUCOSE [id number] 16:13:39 Test Item Value Reference Range Interpretation Comments POC-GLUCOSE METER 188 mg/dL 70-110 H : TESTED A T [facility] 6720 (BEAKER) (test code = [facility], 1538) [address]: Jewel Hole Gauger/Techni edwige ID = [id number] for Ina Meredith ANTI-NUCLEAR ANTIBODY (BEATA)2022-06-28 14:16:56 Test Item Value Reference Range Interpretation Comments ANTI-NUCLEAR ANTIBODY (BEATA) (BEAKER) Negative Negative (test code = 418) Test performed by IFA method.Test performed by IFA method.U/S, ABDOMINAL, [id number] 13:44:00Reason for exam:->Cirrhosis [facility] : 1965 Sex: MFINAL REPORT TECHNIQUE: Grayscale ultrasound of the abdomen. INDICATION: Cirrhosis. COMPARISON: None. FINDINGS: MIDLINE VASCULATURE: The visualized inferior vena cava is unremarkable. The maximum visualized aortic diameter is 2.8 cm. LIVER: Mildly nodular liver contour. No focal lesions. The main portal vein is patent and measures 1.4 cm in diameter. BILIARY:Gallbladder: The gallbladder contains sludge. No definite stones are visualized. No gallbladder wall thickening, pericholecystic fluid, or distention. Negative sonographic Avila sign.Common bile [...] the gallbladder without acute cholecystitis Signed: Cinthia Butler MDReport Verified Date/Time: 06/28/2022 13:44:08 HEMOGLOBIN AND [id number] 11:24:21 Test Item Value Reference Range Interpretation Comments HEMOGLOBIN (BEAKER) (test code = 7.8 GM/DL 13.7-17.5 L 410) HEMATOCRIT (BEAKER) (test code = 23.4 % 40.1-51.0 L 411) Jewel Hole Gauger ID - [id number] ID - [id number]-GLUCOSE [id number] 10:48:53 Test Item Value Reference Range Interpretation Comments POC-GLUCOSE METER 132 mg/dL 70-110 H : TESTED A T [facility] 6720 (BEAKER) (test code = [place], 1538) [address]: Jewel Hole Gauger/Techni edwige ID = [id number] for Chelsi Joseph POCT-GLUCOSE [id number] 09:02:39 Test Item Value Reference Range Interpretation Comments POC-GLUCOSE METER 147 mg/dL 70-110 H : TESTED A T [facility] 6720 (BEAKER) (test code = [place], 1538) [address]: Jewel Hole Gauger/Techni edwige ID = [id number] for Chelsi Joseph COMPREHENSIVE METABOLIC [id number] 06:41:05 Test Item Value Reference Range Interpretation [...] not appl icable for dialysis patien ts Jewel Hole Gauger ID - CHRISTIANA [id number] 06:41:05 Test Item Value Reference Range Interpretation Comments MAGNESIUM (BEAKER) (test code = 1.8 mg/dL 1.6-2.6 627) Jewel Hole Gauger ID - CHRISTIANA MCBC (HEMOGRAM ONLY)2022-06-28 06:37:04 [...] WBC 0-0 (BEAKER) (test code = 413) [id number] 06:14:47 Test Item Value Reference Range Interpretation Comments PARTIAL THROMBOPLASTIN TIME 29.0 seconds 22.5-36.0 (BEAKER) (test code = 760) PROTHROMBIN TIME/[id number] 06:14:11 Test Item Value Reference Range Interpretation Comments PROTIME (BEAKER) 15.3 seconds 11.9-14.2 H (test code = 759) INR (BEAKER) (test 1.23 See_Comment [Automat ed message] code = 370) The system Dizzion generated this result transmitted ref erence range: <=5.90. The reference range was not used to int erpret this result as normal/abnormal . RECOMMENDED COUMADIN/WARFARIN INR THERAPY RANGESSTANDARD DOSE: 2.0 - 3.0 Includes: PROPHYLAXIS for venous thrombosis, systemic embolization; TREATMENT for venous thrombosis and/or pulmonary embolus.HIGH RISK: Target INR is 2.5-3.5 for patients with mechanical heart valves.POCT-GLUCOSE [id number] 23:04:59 Test Item Value Reference Range Interpretation Comments POC-GLUCOSE METER 181 mg/dL 70-110 H : TESTED A T [facility] 6720 (BEAKER) (test code = [facility], 1538) [address]: Jewel Hole Gauger/Techni edwige ID = [id number] for Meche Yousif [id number] 20:46:29 Test Item Value Reference Range Interpretation Comments FERRITIN (BEAKER) (test code = 59.05 ng/mL 5.00-275.00 361) Jewel Hole Gauger ID - ADMINHEPATITIS B CORE ANTIBODY, [id number] 20:12:45 Test Item Value Reference Range Interpretation Comments HEPATITIS B CORE TOTAL ANTIBODY Reactive Nonreactive A (BEAKER) (test code = 497) Jewel Hole Gauger ID - PIVALENTINE LHEPATITIS B SURFACE [id number] 20:12:39 Test Item Value Reference Range Interpretation Comments HEPATITIS B SURFACE ANTIBODY 4789.9 mIU/mL <8.0 H (BEAKER) (test code = 647) Jewel Hole Gauger ID - SEBAS LOperator ID - SEBAS LHEMOGLOBIN AND [id number] 20:10:40 Test Item Value Reference Range Interpretation Comments HEMOGLOBIN (BEAKER) (test code = 8.0 GM/DL 13.7-17.5 L 410) HEMATOCRIT (BEAKER) (test code = 24.7 % 40.1-51.0 L 411) Jewel Hole Gauger ID - [id number] ID - [id number] B SURFACE [id number] 19:51:43 Test Item Value Reference Range Interpretation Comments HEPATITIS B SURFACE ANTIGEN (2) Nonreactive Nonreactive (BEAKER) (test code = 2585) Specimen is considered negative for HBsAg.HEPATITIS C [id number] 19:51:43 Test Item Value Reference Range Interpretation Comments HEPATITIS C ANTIBODY (BEAKER) Nonreactive Nonreactive (test code = 367) Jewel Hole Gauger ID - SEBAS LALPHA FETOPROTEIN (AFP), TUMOR [id number] 19:46:42 Test Item Value Reference Range Interpretation Comments ALPHA-FETOPROTEIN (BEAKER) (test code < ng/mL <10.0 = 1094) Jewel Hole Gauger ID - SEBAS LHEPATITIS A ANTIBODY, [id number] 19:20:02 Test Item Value Reference Range Interpretation Comments HEPATITIS A IGG ANTIBODY (BEAKER) Nonreactive Nonreactive (test code = 2797) Jewel Hole Gauger ID - SEBAS LHEPATITIS A ANTIBODY, [id number] 19:19:56 Test Item Value Reference Range Interpretation Comments HEPATITIS A IGM ANTIBODY (BEAKER) Nonreactive Nonreactive (test code = 498) Jewel Hole Gauger ID - SEBAS LEDKXR-1-[id number] 18:54:12 Test Item Value Reference Range Interpretation Comments ALPHA-1 ANTITRYPSIN 144.40 mg/dL 90.00-200.00 Specimen slightly (BEAKER) (test code = hemoly zed 502) Jewel Hole Gauger ID - SEBAS LIZETH, TIBC, % SAT. (WITHOUT FERRITIN)2022-06-27 18:53:30 Test Item Value Reference Range Interpretation Comments IRON (BEAKER) (test code = 547) 34.0 ug/dL 40.0-160.0 L TOTAL IRON BINDING CAPACITY 299 ug/dL 250-450 (BEAKER) (test code = 769) IRON % SATURATION (2) (BEAKER) 11 % 20-55 L (test code = 2590) Jewel Hole Gauger ID Lis MULLEN LPOCT-GLUCOSE [id number] 16:30:50 Test Item Value Reference Range Interpretation Comments POC-GLUCOSE METER 199 mg/dL 70-110 H : TESTED A T [facility] 6720 (BEAKER) (test code = [facility], 1538) [address]: Jewel Hole Gauger/Techni edwige ID = [id number] for Jaylen margotChelsi POCT-GLUCOSE [id number] 12:00:48 Test Item Value Reference Range Interpretation Comments POC-GLUCOSE METER 182 mg/dL 70-110 H : TESTED A T [facility] 6720 (BEAKER) (test code = [facility], 1538) [address]: Jewel Hole Gauger/Techni edwige ID = [id number] for Nico Lakhani [id number] 11:47:33 Test Item Value Reference Range Interpretation Comments FIBRINOGEN LEVEL (BEAKER) (test 283 mg/dl 225-434 code = 658) HEMOGLOBIN AND [id number] 11:43:51 Test Item Value Reference Range Interpretation Comments HEMOGLOBIN (BEAKER) (test code = 9.5 GM/DL 13.7-17.5 L 410) HEMATOCRIT (BEAKER) (test code = 28.8 % 40.1-51.0 L 411) Jewel Hole Gauger ID - [id number]-GLUCOSE [id number] 06:17:14 Test Item Value Reference Range Interpretation Comments POC-GLUCOSE METER 207 mg/dL 70-110 H : TESTED A T [facility] 6720 (BEAKER) (test code = [place], 1538) [address]: Jewel Hole Gauger/Techni edwige ID = [id number] for MARIE VARGHESE COMPREHENSIVE METABOLIC [id number] 03:37:28 Test Item Value Reference Range Interpretation [...] not appl icable for dialysis patien ts Jewel Hole Gauger ID - CHRISTIANA [id number] 03:37:28 Test Item Value Reference Range Interpretation Comments MAGNESIUM (BEAKER) (test code = 1.7 mg/dL 1.6-2.6 627) Jewel Hole Gauger ID - CHRISTIANA [id number] 03:27:04 Test Item Value Reference Range Interpretation Comments PARTIAL THROMBOPLASTIN TIME 29.6 seconds 22.5-36.0 (BEAKER) (test code = 760) PROTHROMBIN TIME/[id number] 03:26:26 Test Item Value Reference Range Interpretation Comments PROTIME (BEAKER) 16.5 seconds 11.9-14.2 H (test code = 759) INR (BEAKER) (test 1.42 See_Comment [Automat ed message] code = 370) The system Dizzion generated this result transmitted ref erence range: [...] (BEAKER) (test code = 413) HEMOGLOBIN AND [id number] 00:12:37 Test Item Value Reference Range Interpretation Comments HEMOGLOBIN (BEAKER) (test code = 9.6 GM/DL 13.7-17.5 L 410) HEMATOCRIT (BEAKER) (test code = 30.0 % 40.1-51.0 L 411) Jewel Hole Gauger ID - 6000POCT-GLUCOSE [id number] 00:10:44 Test Item Value Reference Range Interpretation Comments POC-GLUCOSE METER 222 mg/dL 70-110 H : TESTED A T [facility] 6720 (BEAKER) (test [facility] = [facility], 1538) [address]: Jewel Hole Gauger/Techni edwige ID = [id number] for MARIE VARGHESE HIGH SENSITIVITY TROPONIN [id number] 20:06:54 Test Item Value Reference Range Interpretation Comments HIGH SENSITIVITY 33 pg/ml See_Comment [Automated message] TROPONIN I (test code = The system which [id number]) generated this result transmitted ref erence range: <=35. Th e reference range was not used to int erpret this result as normal/abnormal . Jewel Hole Gauger ID - PIAYA LThe SNACK STEWARDESS STAT High Sensitivity Troponin-I results should be used in conjunction with other diagnostic information such as ECG, clinical observations and information, and patient symptoms to aid in the diagnosis of HI.[id number] 20:01:17 Test Item Value Reference Range Interpretation Comments LIPASE (BEAKER) (test code = 749) 19 U/L 8-78 Jewel Hole Gauger ID - SEBAS LCREATINE KINASE (CK)2022-06-26 20:01:17 Test Item Value Reference Range Interpretation Comments CREATINE KINASE TOTAL (BEAKER) (test 36 U/L 29-200 code = 380) Jewel Hole Gauger ID - PIVALENTINE LCOMPREHENSIVE METABOLIC [id number] 20:01:16 Test Item Value Reference Range Interpretation [...] not appl icable for dialysis patien ts Jewel Hole Gauger ID - SEBAS [id number] 19:58:16 Test Item Value Reference Range Interpretation Comments ETHANOL (BEAKER) < mg/dL See_Comment [Automated message] The (test code = 400) system Artaici ch generated this result tra nsmitted reference range : <=10. The reference r keegan was not used to int erpret this result as normal/abnormal . Jewel Hole Gauger ID - SEBAS [id number] 19:42:35 Test Item Value Reference Range Interpretation Comments PARTIAL THROMBOPLASTIN TIME 28.6 seconds 22.5-36.0 (BEAKER) (test code = 760) PROTHROMBIN TIME/[id number] 19:41:53 Test Item Value Reference Range Interpretation Comments PROTIME (BEAKER) 16.0 seconds 11.9-14.2 H (test code = 759) INR (BEAKER) (test 1.36 See_Comment [Automat ed message] code = 370) The system Artaicic h generated this result transmitted ref erence range: <=5.90. The reference range was not used to int erpret this result as normal/abnormal . RECOMMENDED COUMADIN/WARFARIN INR THERAPY RANGESSTANDARD DOSE: 2.0 - 3.0 Includes: PROPHYLAXIS for venous thrombosis, systemic embolization; TREATMENT for venous thrombosis and/or pulmonary embolus.HIGH RISK: Target INR is 2.5-3.5 for patients with mechanical heart valves.CBC W/PLT COUNT & AUTO [id number] 19:26:51 Test Item Value Reference Range Interpretation [...] (BEAKER) (test code = 2801) HEMOGLOBIN AND [id number] 18:55:46 Test Item Value Reference Range Interpretation Comments HEMOGLOBIN (BEAKER) (test code = 9.8 GM/DL 13.7-17.5 L 410) HEMATOCRIT (BEAKER) (test code = 29.7 % 40.1-51.0 L 411) Jewel Hole Gauger ID - [id number]
[2022-12-03 11:51] LABS: Absolute Lymphocytes (CBC) 0.6 K/uL (0.7-4.9); Hematocrit 40.5 % (39.6-49.0); Lymphocytes % 10.8 % (15.3-44.8); MCV 86.1 fL (80-100); MPV 8.8 fL (7.6-11.3)
[2022-12-03] MEDS ORDERED: METOCLOPRAMIDE 10 MG/2mL INJ ONE (11:54)
[2022-12-03] MEDS ORDERED: HALOPERIDOL LACT 5 MG/ML INJ ONE (11:55)
[2022-12-03] MEDS ORDERED: PANTOPRAZOLE 40 MG INJ ONE (11:55)
[2022-12-03] MEDS ORDERED: DIPHENHYDRAMINE 50 MG/ML VIAL ONE (11:55)
[2022-12-03] MEDS ORDERED: NA CHLORIDE 0.9% 1,000 ML ONE ×2 (11:55→18:14)
[2022-12-03 12:06] LABS: Albumin 3.9 g/dL (3.4-5.0); Bilirubin Total 1.1 mg/dL (0.2-1.0); Potassium 4.1 mmol/L (3.5-5.1); Protein, Total 8.3 g/dL (6.4-8.2)
--- NOTE | 2022-12-03 13:18 | RAD REPORT ---
EXAM DESCRIPTION: CT - Abdomen Pelvis W Contrast - 12/03/2022 12:51 pm CLINICAL HISTORY: Abdominal pain COMPARISON: September 2022 TECHNIQUE: Computed axial tomography of the abdomen pelvis was obtained. 100 cc Isovue-300 was admin istered intravenously. Oral contrast was not requested which limits evaluation of bowel and appendix All CT scans are performed using dose optimization technique as appropriate and may include automated exposure control or mA/KV adjustment according to patient size. FINDINGS: Liver has a mildly nodular contour. The caudate lobe is prominent. This suggests chronic d isease. Spleen measures 17 centimeters and contains multiple lesions varying in size from a few millimeters t o 10 millimeters. The wall of the proximal and mid duodenum is thickened. There is stranding within the adjacent which extends into anterior pararenal space. Small right renal cyst. Kidneys and pancreas appear unremarkable. No adrenal lesion. Normal appendix. Small to moderate left inguinal and a small right inguinal hernias contain fat IMPRESSION: Thickening of the wall of proximal and mid duodenum probably indicating inflammation. Splenomegaly with multiple lesions. These may indicate metastases, infection or benign process.
[2022-12-03] MEDS ORDERED: KETOROLAC 30 MG/ML INJ ONE (15:00)
[2022-12-03] MEDS ORDERED: SUCRALFATE 1 GM TABLET ONE (15:11)
[2022-12-03] MEDS ORDERED: CYCLOBENZAPRINE 10 MG TAB ONE (16:10)
[2022-12-03] MEDS ORDERED: PROMETHAZINE INJ 25 MG/ML AMP ONE (16:10)
--- NOTE | 2022-12-03 16:51 | ER ---
Nurse's Notes [facility] Name: Eitan Gonzalez Age: 57 yrs Sex: Male : 1965 Arrival Date: 12/03/2022 Time: 11:27 Bed 15 Private MD: Diagnosis: Chronic pain syndrome;Gastroparesis Presentation: 12/03 11:22 Chief complaint: EMS states: N/V since yesterday 1700. Pt c/o RUQ pain 07/30, denies vg1 diarrhea. Pt was given Promethazine 25 mg IM in route as well as Zofran 4 mg IM. 11:22 Coronavirus screen: Vaccine status: Patient reports being unvaccinated. Client denies vg1 travel out of the [place] in the last 14 days. Ebola Screen: Patient negative for fever greater than or equal to 101.5 degrees Fahrenheit, and additional compatible Ebola Virus Disease symptoms. Initial Sepsis Screen: Does the patient meet any 2 criteria? No. Patient's initial sepsis screen is negative. Does the patient have a suspected source of infection? No. Patient's initial sepsis screen is negative. Risk Assessment: Do you want to hurt yourself or someone else? Patient reports no desire to harm self or others. Onset of symptoms was December 02, 2022. 11:22 Method Of Arrival: EMS: [facility] vg1 11:22 Acuity: NALINI 3 vg1 Triage Assessment: 11:22 General: Appears uncomfortable, Behavior is agitated. Pain: Complains of pain in right vg1 upper quadrant Pain currently is 10 out of 10 on a pain scale. Pain began 1 day ago. EENT: No signs and/or symptoms were reported regarding the EENT system. Neuro: Level of Consciousness is awake, alert, obeys commands, Oriented to person, place, time, situation. Cardiovascular: Patient's skin is warm and dry. Respiratory: Airway is patent Respiratory effort is even, unlabored. GI: Abdomen is round non-distended, Reports upper abdominal pain, gaseousness, nausea, vomiting, Patient currently denies diarrhea. : No signs and/or symptoms were reported regarding the genitourinary system. Derm: Skin is pink, warm \\T\\ dry. Musculoskeletal: Circulation, motion, and sensation intact. Historical: - Allergies: 11:34 Trulicity; vg1 11:34 Mounjaro; vg1 - Home Meds: 11:34 carvedilol oral [Active]; vg1 12:50 Creon oral [Active]; Docusate Sodium Oral [Active]; Cymbalta oral [Active]; vg1 Erythromycin Oral [Active]; Ferrous Sulfate Oral [Active]; Farxiga oral [Active]; Folic Acid Oral [Active]; gabapentin oral [Active]; meclizine Oral [Active]; Metoclopramide Oral [Active]; Metformin Oral [Active]; Omeprazole Oral [Active]; Promethazine Oral [Active]; rifaximin oral [Active]; rosuvastatin oral [Active]; Thiamine Oral [Active]; Zantac Oral [Active]; - PMHx: 11:34 Alcoholism; cirrhosis of liver; diabetes mellitus; enlarged spleen; gastroporesis; vg1 Hypertensive disorder; Pancreatitis; - Immunization history:: Client reports having NOT received the Covid vaccine. - Social history:: Smoking status: Patient/guardian denies using tobacco, the patient reports quitting approximately 7 years ago. Screenin:37 [facility] ED Fall Risk Assessment (Adult) History of falling in the last 3 months, vg1 including since admission No falls in past 3 months (0 pts) Confusion or Disorientation No (0 pts) Intoxicated or Sedated No (0 pts) Impaired Gait No (0 pts) Mobility Assist Device Used No (0 pt) Altered Elimination No (0 pt) Score/Fall Risk Level 0 - 2 = Low Risk Oriented to surroundings, Maintained a safe environment, Educated pt \\T\\ family on fall prevention, incl call for assistance when getting out of bed, Assessed \\T\\ reinforced patient's understanding of fall precautions. Abuse screen: Denies threats or abuse. Nutritional screening: No deficits noted. Tuberculosis screening: No symptoms or risk factors identified. Assessment: 11:37 Reassessment: SEE TRIAGE. vg1 12:35 Reassessment: Patient appears in no apparent distress at this time. No changes from vg1 previously documented assessment. Patient and/or family updated on plan of care and expected duration. Pain level reassessed. Patient is alert, oriented x 3, equal unlabored respirations, skin warm/dry/pink. PT TRANSPORTED TO CT VIA STRETCHER. 12:55 Reassessment: transported back from CT. vg1 13:23 Reassessment: Patient appears in no apparent distress at this time. No changes from vg1 previously documented assessment. Patient and/or family updated on plan of care and expected duration. Pain level reassessed. Patient is alert, oriented x 3, equal unlabored respirations, skin warm/dry/pink. pt reported 'no change' to ABD pain, rates 10/10, provider notified, no new orders at this time. 14:53 Reassessment: Patient appears in no apparent distress at this time. No changes from vg1 previously documented assessment. Patient and/or family updated on plan of care and expected duration. Pain level reassessed. Patient is alert, oriented x 3, equal unlabored respirations, skin warm/dry/pink. Pt stated "Im in severe pain, I need something medicine for this pain" Provider notified. 14:54 Reassessment: Received VO from Dr Lopez to administer Toradol 30 mg IVP x1. vg1 16:00 Reassessment: Patient appears in no apparent distress at this time. No changes from vg1 previously documented assessment. Patient and/or family updated on plan of care and expected duration. Pain level reassessed. Patient is alert, oriented x 3, equal unlabored respirations, skin warm/dry/pink. 16:50 Reassessment: Patient appears in no apparent distress at this time. No changes from vg1 previously documented assessment. Patient and/or family updated on plan of care and expected duration. Pain level reassessed. Patient is alert, oriented x 3, equal unlabored respirations, skin warm/dry/pink. 16:50 Reassessment: Pt given PO med at 1511, was able to tolerate fluids, provider notified. vg1 16:55 Reassessment: received VO from Dr Lopez to administer 12.5 mg of Carvedilol PO x1. vg1 19:15 Reassessment: Patient appears in no apparent distress at this time. Patient and/or jb4 family updated on plan of care and expected duration. Pain level reassessed. Patient is alert, oriented x 3, equal unlabored respirations, skin warm/dry/pink. attempted to call inside lab for lab draw. unable to pull blood from pre-established access. 20:00 Reassessment: Patient appears in no apparent distress at this time. Patient and/or jb4 family updated on plan of care and expected duration. Pain level reassessed. Patient is alert, oriented x 3, equal unlabored respirations, skin warm/dry/pink. attempted to call inside lab for blood draw. 21:00 Reassessment: Patient appears in no apparent distress at this time. Patient and/or jb4 family updated on plan of care and expected duration. Pain level reassessed. Patient is alert, oriented x 3, equal unlabored respirations, skin warm/dry/pink. 22:00 Reassessment: Patient appears in no apparent distress at this time. Patient and/or jb4 family updated on plan of care and expected duration. Pain level reassessed. Patient is alert, oriented x 3, equal unlabored respirations, skin warm/dry/pink. 23:00 Reassessment: Patient appears in no apparent distress at this time. Patient and/or jb4 family updated on plan of care and expected duration. Pain level reassessed. Patient is alert, oriented x 3, equal unlabored respirations, skin warm/dry/pink. 12/04 00:00 Reassessment: Pt sleeping in bed with eyes closed, respirations are even and unlabored jb4 with no s/s of pain or distress noted. Vital Signs: 12/03 11:22 BP 169 / 100; Pulse 70; Resp 18; Temp 98.3(O); Pulse Ox 100% on R/A; Weight 102.06 kg; vg1 Height 6 ft. 0 in. (182.88 cm); Pain 10/10; 12:05 BP 198 / 80; Pulse 80; Resp 14; Pulse Ox 99% on R/A; vg1 13:00 BP 192 / 99; Pulse 80; Resp 12; Pulse Ox 99% on R/A; vg1 13:30 BP 194 / 104; Pulse 80; Resp 17; Pulse Ox 100% on R/A; vg1 14:47 BP 183 / 101; Pulse 77; Resp 14; Pulse Ox 98% on R/A; vg1 15:00 BP 186 / 98; Pulse 85; Resp 14; Pulse Ox 99% on R/A; vg1 16:00 BP 192 / 100; Pulse 90; Resp 19; Pulse Ox 98% on R/A; vg1 16:30 BP 188 / 97; Pulse 90; Resp 13; Pulse Ox 98% on R/A; vg1 17:19 BP 182 / 92; Pulse 86; Resp 13; Pulse Ox 98% on R/A; vg1 19:30 BP 196 / 109; Pulse 90; Resp 16; Pulse Ox 97% on R/A; jb4 20:35 BP 183 / 88; Pulse 93; Resp 16; Pulse Ox 98% on R/A; jb4 21:45 BP 138 / 76; Pulse 101; Resp 18; Pulse Ox 99% on R/A; jb4 22:30 BP 131 / 79; Pulse 93; Resp 18; Pulse Ox 98% on R/A; jb4 23:30 BP 110 / 77; Pulse 92; Resp 15; Pulse Ox 97% on R/A; jb4 12/04 00:30 BP 118 / 59; Pulse 90; Resp 14; Pulse Ox 98% ; jb4 12/03 11:22 Body Mass Index 30.52 (102.06 kg, 182.88 cm) vg1 ED Course: 12/03 11:22 Arm band placed on. vg1 11:27 Patient arrived in ED. iw 11:29 Otoniel Lopez MD is Attending Physician. bs3 11:31 Neena Galeano, SUZI is Primary Nurse. vg1 11:34 Triage completed. vg1 11:34 Inserted saline lock: 22 gauge in right hand, using aseptic technique. Blood collected. ap3 11:37 Patient has correct armband on for positive identification. Placed in gown. Bed in low vg1 position. Call light in reach. Side rails up X 1. Adult w/ patient. 12:25 Missed attempt(s): 22 gauge in left antecubital area. vg1 12:36 Inserted saline lock: 22 gauge in right forearm, using aseptic technique. ,using vg1 aseptic technique. COMPLETED BY [facility]. 13:26 Notified ED physician of vital signs. vg1 16:50 Magdiel Hernandez MD is Hospitalizing Provider. bs3 19:00 No provider procedures requiring assistance completed. Patient admitted, IV remains in jb4 place. Administered Medications: 12:07 Drug: NS 0.9% 1000 ml Route: IV; Rate: 1 bolus; Site: right hand; vg1 13:27 Follow up: IV Status: Completed infusion; IV Intake: 1000ml vg1 12:09 Drug: ProTONIX (pantoprazole) 40 mg Route: IVP; Site: right hand; vg1 13:26 Follow up: Response: No adverse reaction; No change in condition vg1 12:11 Drug: Benadryl (diphenhydrAMINE) 25 mg Route: IVP; Site: right hand; vg1 13:27 Follow up: Response: No adverse reaction; No change in condition vg1 12:13 Drug: Reglan (metoCLOPramide) 10 mg Route: IVP; Site: right hand; vg1 13:27 Follow up: Response: No adverse reaction; No change in condition vg1 12:16 Drug: Haloperidol 2.5 mg/50 mL 2.5 mg Route: IVP; Site: right hand; vg1 13:27 Follow up: Response: No adverse reaction; No change in condition vg1 15:06 Drug: Ketorolac 30 mg Route: IVP; Site: right forearm; vg1 16:49 Follow up: Response: No adverse reaction; No change in condition vg1 15:11 Drug: CarafATE (sucralfate) 1 grams Route: PO; vg1 16:49 Follow up: Response: No adverse reaction; No change in condition vg1 16:14 Drug: Cyclobenzaprine 10 mg Route: PO; sg5 16:14 Drug: Phenergan (promethazine) 6.25 mg Route: IVP; Site: right hand; sg5 17:03 Drug: carvedilol 12.5 mg Route: PO; vg1 18:58 Not Given (Pharmacy stated unavailablee): Capsagel Gel 0.025 % 1 application Topical vg1 once; do not wash area for at least 30 min after application Medication: 11:37 VIS not applicable for this client. vg1 Intake: 13:27 IV: 1000ml; Total: 1000ml. vg1 Outcome: 16:51 Decision to Hospitalize by Provider. bs3 19:00 Admitted to ER Hold. Please see [facility] for further documentation. jb4 19:00 Condition: stable 19:00 Discharge instructions given to patient, family, Instructed on the need for admit, Demonstrated understanding of instructions. 12/04 15:25 Patient left the ED. ko1 Signatures: Thu Ibarra RN SUZI iw Chano Wolf RN RN jb4 Kim Carlson RN RN ap3 Neena Galeano RN RN vg1 Otoniel Lopez MD MD bs3 Petra Brambila RN RN ko1 Imani Child RN RN sg5 Corrections: (The following items were deleted from the chart) 12/03 12:39 12:35 Reassessment: pt transported to CT via stretcher vg1 vg1 13:26 13:23 Reassessment: Patient appears in no apparent distress at this time. No changes vg1 from previously documented assessment. Patient and/or family updated on plan of care and expected duration. Pain level reassessed. Patient is alert, oriented x 3, equal unlabored respirations, skin warm/dry/pink. pt reported 'no change' to ABD pain, rates 10/10, provider notified. vg1 12/04 00:43 00:00 Reassessment: Patient appears in no apparent distress at this time. Patient jb4 and/or family updated on plan of care and expected duration. Pain level reassessed. Patient is alert, oriented x 3, equal unlabored respirations, skin warm/dry/pink. jb4
--- NOTE | 2022-12-03 16:51 | EDPHYS ---
Physician Documentation [facility] Name: Eitan Gonzalez Age: 57 yrs Sex: Male : 1965 Arrival Date: 12/03/2022 Time: 11:27 Bed 15 Private MD: ED Physician Otoniel Lopez HPI: 12/03 11:41 This 57 yrs old Male presents to ER via EMS with complaints of bs3 Nausea/Vomiting. 11:41 57yo m hx of pancreatitis, dm, gastroparesis, cirrhosis pw nausea, vomiting and abd bs3 pain since yesterday. he notes multiple similar episodes. Denies obstipation, +flatus, notes crampy pain all over, pt notes that the only thing that works is pain medicaiton. per family, he needs a pain pump. Per ems, pt ambulatory in the house and given IM promethazine which improved his dry heaves.. Historical: - Allergies: 11:34 Trulicity; vg1 11:34 Mounjaro; vg1 - Home Meds: 11:34 carvedilol oral [Active]; vg1 12:50 Creon oral [Active]; Docusate Sodium Oral [Active]; Cymbalta oral [Active]; vg1 Erythromycin Oral [Active]; Ferrous Sulfate Oral [Active]; Farxiga oral [Active]; Folic Acid Oral [Active]; gabapentin oral [Active]; meclizine Oral [Active]; Metoclopramide Oral [Active]; Metformin Oral [Active]; Omeprazole Oral [Active]; Promethazine Oral [Active]; rifaximin oral [Active]; rosuvastatin oral [Active]; Thiamine Oral [Active]; Zantac Oral [Active]; - PMHx: 11:34 Alcoholism; cirrhosis of liver; diabetes mellitus; enlarged spleen; gastroporesis; vg1 Hypertensive disorder; Pancreatitis; - Immunization history:: Client reports having NOT received the Covid vaccine. - Social history:: Smoking status: Patient/guardian denies using tobacco, the patient reports quitting approximately 7 years ago. ROS: 11:41 Constitutional: Negative for fever, chills bs3 11:41 All other systems are negative. Exam: 11:41 Constitutional: This is a well developed, well nourished patient who is awake, alert, bs3 and appears uncomfortable Head/Face: Normocephalic, atraumatic. Eyes: Pupils equal round and reactive to light, extra-ocular motions intact. Lids and lashes normal. ENT: mmm, no posterior phyarngeal erythema Chest/axilla: Normal chest wall appearance and motion. Nontender with no deformity. No lesions are appreciated. Cardiovascular: Regular rate and rhythm with a normal S1 and S2. symmetric pulses in upper extremities Respiratory: Lungs have equal breath sounds bilaterally, clear to auscultation, no respiratory distress Abdomen/GI: soft, voluntary guarding in all 4 quadrants, no peritnitis Skin: Warm, dry with normal turgor. Normal color with no rashes, no lesions, and no evidence of cellulitis. MS/ Extremity: Pulses equal, no cyanosis. Neurovascular intact. Full, normal range of motion. Neuro: Awake and alert, GCS 15, oriented to person, place, time, and situation. Cranial nerves II-XII grossly intact. Motor strength 5/5 in all extremities. Sensory grossly intact. Psych: Awake, alert, with orientation to person, place and time. Behavior, mood, and affect are within normal limits. 12:02 ECG was reviewed by the Attending Physician. nsr [address] elevation or depression qtc bs3 normal as inter by myself Vital Signs: 11:22 BP 169 / 100; Pulse 70; Resp 18; Temp 98.3(O); Pulse Ox 100% on R/A; Weight 102.06 kg; vg1 Height 6 ft. 0 in. (182.88 cm); Pain 10/10; 12:05 BP 198 / 80; Pulse 80; Resp 14; Pulse Ox 99% on R/A; vg1 13:00 BP 192 / 99; Pulse 80; Resp 12; Pulse Ox 99% on R/A; vg1 13:30 BP 194 / 104; Pulse 80; Resp 17; Pulse Ox 100% on R/A; vg1 14:47 BP 183 / 101; Pulse 77; Resp 14; Pulse Ox 98% on R/A; vg1 15:00 BP 186 / 98; Pulse 85; Resp 14; Pulse Ox 99% on R/A; vg1 16:00 BP 192 / 100; Pulse 90; Resp 19; Pulse Ox 98% on R/A; vg1 16:30 BP 188 / 97; Pulse 90; Resp 13; Pulse Ox 98% on R/A; vg1 17:19 BP 182 / 92; Pulse 86; Resp 13; Pulse Ox 98% on R/A; vg1 19:30 BP 196 / 109; Pulse 90; Resp 16; Pulse Ox 97% on R/A; jb4 20:35 BP 183 / 88; Pulse 93; Resp 16; Pulse Ox 98% on R/A; jb4 21:45 BP 138 / 76; Pulse 101; Resp 18; Pulse Ox 99% on R/A; jb4 22:30 BP 131 / 79; Pulse 93; Resp 18; Pulse Ox 98% on R/A; jb4 23:30 BP 110 / 77; Pulse 92; Resp 15; Pulse Ox 97% on R/A; jb4 12/04 00:30 BP 118 / 59; Pulse 90; Resp 14; Pulse Ox 98% ; jb4 12/03 11:22 Body Mass Index 30.52 (102.06 kg, 182.88 cm) vg1 MDM: 12/03 11:29 Patient medically screened. bs3 11:41 Data reviewed: vital signs, nurses notes. Historians other than the Patient: EMS: bs3 described initial symptoms, meds given. External Records Reviewed: Inpatient record: recent admission recommending reglan/erythromycin. ED course: will eval pancreatitis, colitis, pt requesting IV narcotics by name, states nothing else works, states he will leave if not given IV narcotics, will eval for acute intraabdominal path, I have a concern there is a component of chronic pain/pain seeking, will check labs, will do ct, will trial meds for gastritis/gastroparesis and reassess. 12:27 ED course: labs notable for elevated glucose but no anion gap, no leukocytosis, lfts bs3 without sig abnormalities. 15:02 ED course: Attempted multiple nonnarcotic pain medications patient still stating his bs3 pain is 10 out of 10 attempted to call his clerk telegraph service he is CT was notable for inflammation in the duodenal area we will treat pain will plan to admit. 15:10 ED course: pt notes pain now 9 from 12.5, still requesting stronger pain medication. bs3 15:17 ED course: Patient gave permission to check chart from admission September [address]. ED course: per GI notes, rec pheneragran q6, reglan TID, and switch lexapro to duloxetine, specifically rec against opiods. 16:49 ED course: attempted to dc pt, pt states pain persistent, per , she will not take bs3 him home, will admit for hydration, inability to tolerate oral intake. . 12/03 11:34 Order name: CBC with Diff bs3 12/03 11:34 Order name: CMP bs3 12/03 11:34 Order name: Lipase bs3 12/03 11:53 Order name: CBC with Automated Diff; Complete Time: 12:27 EDMS 12/03 12:07 Order name: Comprehensive Metabolic Panel; Complete Time: 12:27 EDMS 12/03 12:07 Order name: Lipase; Complete Time: 12:27 EDMS 12/03 16:51 Order name: SARS-COV-2 Antigen Rapid 3 12/03 17:14 Order name: UDS 3 12/03 17:25 Order name: SARS-COV-2 Antigen Rapid EDWY 12/03 21:05 Order name: Creatine Phosphokinase EDMS 12/03 21:05 Order name: T4 Free EDMS 12/03 21:05 Order name: Magnesium EDMS 12/03 21:05 Order name: Thyroid Stimulating Hormone EDMS 12/03 23:16 Order name: Glucose, Ancillary Testing EDWY 12/03 11:34 Order name: CT Abd/Pelvis - IV Contrast Only bs3 12/03 13:18 Order name: CT; Complete Time: 14:56 EDMS 12/04 03:21 Order name: Comprehensive Metabolic Panel EDMS 12/04 03:21 Order name: Phosphorus EDMS 12/04 05:15 Order name: Urine Drug Screen EDMS 12/04 05:54 Order name: Urinalysis EDMS 12/04 08:37 Order name: Glucose, Ancillary Testing EDMS 12/04 12:06 Order name: Glucose, Ancillary Testing EDWY 12/03 11:34 Order name: IV Saline Lock; Complete Time: 11:34 bs3 12/03 11:34 Order name: Labs collected and sent; Complete Time: 11:43 bs3 12/03 11:34 Order name: EKG - Nurse/Tech; Complete Time: 12:37 bs3 Administered Medications: 12:07 Drug: NS 0.9% 1000 ml Route: IV; Rate: 1 bolus; Site: right hand; vg1 13:27 Follow up: IV Status: Completed infusion; IV Intake: 1000ml vg1 12:09 Drug: ProTONIX (pantoprazole) 40 mg Route: IVP; Site: right hand; vg1 13:26 Follow up: Response: No adverse reaction; No change in condition vg1 12:11 Drug: Benadryl (diphenhydrAMINE) 25 mg Route: IVP; Site: right hand; vg1 13:27 Follow up: Response: No adverse reaction; No change in condition vg1 12:13 Drug: Reglan (metoCLOPramide) 10 mg Route: IVP; Site: right hand; vg1 13:27 Follow up: Response: No adverse reaction; No change in condition vg1 12:16 Drug: Haloperidol 2.5 mg/50 mL 2.5 mg Route: IVP; Site: right hand; vg1 13:27 Follow up: Response: No adverse reaction; No change in condition vg1 15:06 Drug: Ketorolac 30 mg Route: IVP; Site: right forearm; vg1 16:49 Follow up: Response: No adverse reaction; No change in condition vg1 15:11 Drug: CarafATE (sucralfate) 1 grams Route: PO; vg1 16:49 Follow up: Response: No adverse reaction; No change in condition vg1 16:14 Drug: Cyclobenzaprine 10 mg Route: PO; sg5 16:14 Drug: Phenergan (promethazine) 6.25 mg Route: IVP; Site: right hand; sg5 17:03 Drug: carvedilol 12.5 mg Route: PO; vg1 18:58 Not Given (Pharmacy stated unavailablee): Capsagel Gel 0.025 % 1 application Topical vg1 once; do not wash area for at least 30 min after application Disposition Summary: 12/03/22 16:51 Hospitalization Ordered Hospitalization Status: Observation bs3 Provider: Magdiel Hernandez bsAngelika Condition: Stable bs3 Problem: an acute exacerbation bs3 Symptoms: have worsened bs3 Bed/Room Type: Standard bs3 Location: Telemetry/MedSurg (observation)(12/04/22 14:58) bd Room Assignment: 404(12/04/22 14:58) bd Diagnosis - Chronic pain syndrome bs3 - Gastroparesis bs3 Forms: - Medication Reconciliation Form bs3 - SBAR form bs3 Signatures: Dispatcher [employer] Abi Osullivan Martha, RN RN mw Neena Galeano RN RN vg1 Otoniel Loepz MD MD bs3 Imani Child RN RN sg5 Corrections: (The following items were deleted from the chart) 20: 16:51 Telemetry/MedSurg (observation) [facility]: [facility] 12/04 14:58 12/03 20:07 [facility] ER HOLD [facility] 12/04 14:58 12/03 20:07 ERHOLD- [facility]
[2022-12-03] MEDS ORDERED: carvediloL 6.25 MG TAB ONE (17:04)
[2022-12-03 17:25] LABS: SARS-CoV-2 Antigen Rapid Res Negative (Negative)
[2022-12-03] MEDS ORDERED: SODIUM CHLORIDE 0.9% 10ML INJ IV PRN (17:28)
[2022-12-03] MEDS ORDERED: HOME MED 1 EA UNK (Lipase/Protease/Amylase [Creon Dr 36,000 Unit Capsule] Capsule.Dr) PO SCH (17:30)
[2022-12-03] MEDS ORDERED: ACETAMINOPHEN 325 MG TABLET PO PRN (17:31)
[2022-12-03] MEDS ORDERED: KETOROLAC 30 MG/ML INJ IV PRN ×2 (17:31→18:09)
--- NOTE | 2022-12-03 17:37 | P.HP ---
Certification for Inpatient Patient admitted to: Inpatient With expected LOS: >2 Midnights Patient will require the following post-hospital care: None Practitioner: I am a practitioner with admitting privileges, knowledge of patient current condition, hospital course, and medical plan of care. Services: Services provided to patient in accordance with Admission requirements found in Title 42 Section 412.3 of the Code of Federal Regulations Patient History Date of Service: 12/03/22 Reason for admission: Abdominal pain, N\V History of Present Illness: Patient is a 57-year-old male with a past medical history significant for pancreatitis, liver cirrhosis, DM 2, JONAH, GERD, HLD, gastroparesis who presents with complaint of left quadrants pain onset yesterday. Patient rated pain as 10/10 in severity and described as aching in quality. Patient reported associated signs and symptoms of diaphoresis, chills, poor appetite, nausea and vomiting. Patient denies any other signs or symptoms. Symptoms are aggravated or relieved by nothing. Patient decided to present to the hospital due to worsening symptoms. Allergies dulaglutide [From [facility]] Allergy (Verified 10/02/22 21:31) Nausea/Vomiting Home Medications: Ferrous Sulfate [Ferrous Sulfate*] 325 mg PO DAILY 07/28/22 Thiamine Mononitrate (Vit B1) [Vitamin B-1] 100 mg PO DAILY 07/28/22 Doxepin HCl [Sinequan*] 10 mg PO BEDTIME 30 Days #30 cap 08/05/22 Gabapentin [Neurontin*] 100 mg PO TID 30 Days #90 cap 08/05/22 Metoclopramide HCl [Reglan] 10 mg PO TIDWM 30 Days #90 tab 08/05/22 Ondansetron [Zofran] 4 mg PO Q6H PRN #30 tab 08/05/22 carvediloL [Carvedilol] 12.5 mg PO BID 10/02/22 Carvedilol [Coreg] 1 tab PO BID 10/03/22 Melatonin 1 tab PO BEDTIME 10/03/22 Pantoprazole Sodium 2 tab PO BID 10/03/22 Polyethylene Glycol 3350 [Miralax] 1 packet PO DAILY 10/03/22 Lipase/Protease/Amylase [Sonja Dr 36,000 Unit Capsule] 2 cap PO SEECOM 10/04/22 Metformin HCl 1 tab PO BID 10/04/22 Promethazine Tab [Phenergan*] 1 tab PO BEDTIME 10/04/22 Tramadol HCl [Ultram] 1 tab PO TID PRN 10/04/22 Dapagliflozin Propanediol [Farxiga] 1 tab PO DAILY 12/04/22 Docusate Sodium 1 tab PO BID 12/04/22 Duloxetine [Cymbalta *] 1 cap PO BID 12/04/22 Famotidine [Zantac-360 (Famotidine)] 1 tab PO BEDTIME 12/04/22 Folic Acid 1 tab PO DAILY 12/04/22 Meclizine HCl 1 tab PO PRN 12/04/22 Rifaximin [Xifaxan] 550 mg PO BID 12/04/22 Rosuvastatin [Crestor*] 2 tab PO DAILY 12/04/22 hydrOXYzine HCL [Atarax*] 1 tab PO PRN 12/04/22 - Past Medical/Surgical History Diabetic: Yes -: Liver cirrhosis -: Gastroparesis -: Gastric varices -: Diabetes mellitus -: Obesity -: EGD Psychosocial/ Personal History: Patient is . - Social History Smoking Status: Former smoker Alcohol use: No CD- Drugs: No Caffeine use: Yes Place of Residence: Home Review of Systems General: Chills, Sweats, Other (Poor appetite ) Eyes: Unremarkable ENT: Unremarkable Respiratory: Unremarkable Cardiovascular: Unremarkable Gastrointestinal: Nausea, Vomiting, Abdominal Pain Genitourinary: Unremarkable Musculoskeletal: Unremarkable Integumentary: Unremarkable Neurological: Unremarkable Lymphatics: Unremarkable Physical Examination - Physical Exam General: Alert, Oriented x3, Cooperative, Mild distress HEENT: Atraumatic, PERRLA, Mucous membr. moist/pink, EOMI, Sclerae nonicteric Neck: Supple, 2+ carotid pulse no bruit, No LAD, Without JVD or thyroid abnormality Respiratory: Clear to auscultation bilaterally, Normal air movement Cardiovascular: No edema, Regular rate/rhythm, Normal S1 S2 Capillary refill: <2 Seconds Gastrointestinal: Hypoactive, Tenderness Musculoskeletal: No clubbing, No swelling, No contractures, No tenderness Integumentary: No rashes, No breakdown, No significant lesion, No erythema Neurological: Normal speech, Normal tone, Normal affect Lymphatics: No axilla or inguinal lymphadenopathy - Studies Laboratory Data (last 24 hrs) 12/03/22 11:40: Sodium 136, Potassium 4.1, BUN 14, Creatinine 0.77, Glucose 316 H, Total Bilirubin 1.1 H, AST 25, ALT 44, Alkaline Phosphatase 91, Lipase 376 12/03/22 11:40: WBC 5.20, Hgb 13.5 L, Hct 40.5, Plt Count 62 L Assessment and Plan - Plan --Abdominal pain. CT abdomen indicates thickening of the wall of proximal and mild duodenum. Patient placed on antibiotics. --Acute pain. We will manage pain with current pain medication regimen. --Gastroparesis. Continue home medications. --History of pancreatitis. Continue home medication. --GERD. Continue Protonix. --Insomnia. Continue melatonin. --Hypertension. Poorly controlled. Continue home medications and hydralazine as needed. --Thrombocytopenia. Secondary to liver disease. Continue supportive care. --Nausea and vomiting. Antiemetics on board. Continue IV hydration and supportive care. --DVT prophylaxis with SCDs. Discharge Plan: Home Plan to discharge in: Greater than 2 days - Advance Directives Does patient have a Living Will: No Does patient have a Durable POA for Healthcare: No - Code Status/Comfort Care Code Status Assessed: Yes Physician Review: Patient Assessed, Agree with Above Assessment and Plan Critical Care: No
[2022-12-03] MEDS: NA CHLORIDE 0.9% 1,000 ML IV SCH (18:00)
[2022-12-03] MEDS ORDERED: ENOXAPARIN 40 MG/0.4 ML SQ SCH (18:00)
[2022-12-03] MEDS ORDERED: PANTOPRAZOLE 40 MG INJ IVP SCH (18:00)
[2022-12-03] MEDS ORDERED: ENOXAPARIN 40 MG/0.4 ML SQ ONE (18:14)
[2022-12-03] MEDS ORDERED: PROMETHAZINE 25 MG TABLET PO SCH (21:00)
[2022-12-03] MEDS ORDERED: HOME MED 1 EA UNK (Melatonin [Melatonin] 10 MG Capsule) PO SCH (21:00)
[2022-12-03 21:04] LABS: Magnesium 1.9 mg/dL (1.6-2.4); Thyroid Stimulating Hormone 1.68 uIU/mL (0.358-3.740)
[2022-12-03] MEDS: DOXEPIN HCL 10 MG CAP PO SCH (23:10)
[2022-12-03] MEDS: GABAPENTIN 100 MG CAP PO SCH (23:10)
[2022-12-03] MEDS: MELATONIN 5 MG TABLET PO SCH (23:10)
[2022-12-03] MEDS: INSULIN -REGULAR HUMAN 50 UNIT/0.5 ML ML SQ SCH (23:10)
[2022-12-03] MEDS: carvediloL 25 MG TAB PO SCH (23:10)
[2022-12-03] MEDS ORDERED: INSULIN -REGULAR HUMAN 50 UNIT/0.5 ML ML ONE (23:12)
[2022-12-03] MEDS ORDERED: MELATONIN 5 MG TABLET PO ONE (23:15)
[2022-12-03] MEDS ORDERED: PROMETHAZINE 25 MG TABLET ONE (23:16)
[2022-12-04] MEDS ORDERED: PIPERACIL/TAZO 3.375 GM VIAL IV ONE ×2 (01:56→08:42)
[2022-12-04] MEDS ORDERED: NA CHLORIDE 0.9% 100 ML ONE ×2 (01:56→09:03)
[2022-12-04] MEDS: PIPER TAZO 3.375 GM in NA CHLORIDE 0.9% 100 ML IV SCH ×2 (02:00→09:45)
[2022-12-04 03:16] LABS: Albumin 3.6 g/dL (3.4-5.0); Bilirubin Total 1.1 mg/dL (0.2-1.0); Potassium 3.7 mmol/L (3.5-5.1); Protein, Total 7.4 g/dL (6.4-8.2)
[2022-12-04 03:32] VITALS: BMI 30.5
[2022-12-04] MEDS ORDERED: hydrOXYzine HCL 25 MG TAB PO PRN (05:00)
[2022-12-04 05:14] LABS: Barbiturates NEGATIVE (NEGATIVE); Benzodiazepines NEGATIVE (NEGATIVE); Cocaine NEGATIVE (NEGATIVE); METHAMPHETAM NEGATIVE (NEGATIVE); Methadone NEGATIVE (NEGATIVE); Opiates NEGATIVE (NEGATIVE); Phencyclidine NEGATIVE (NEGATIVE); THC Cannibis POSITIVE (NEGATIVE)
[2022-12-04 05:54] LABS: Renal Epithelial <5 /HPF (None Seen); Specific Gravity 1.018 (1.005-1.030); Urine Bacteria None Seen /HPF (<20); Urine Bilirubin NEGATIVE (Negative); Urine Blood Negative (Negative); Urine Clarity Clear (Clear); Urine Color Light-Yellow (Yellow); Urine Glucose 4+ (Over) (Negative); Urine Mucus Slight /HPF (None Seen); Urine Protein 1+ (Negative); Urine RBC None Seen /HPF (None Seen); Urine Urobilinogen Normal (Normal); Urine pH 6.5 (5.0-7.0)
[2022-12-04] MEDS: NA CHLORIDE 0.9% 1,000 ML IV SCH (07:20)
[2022-12-04] MEDS: INSULIN -REGULAR HUMAN 50 UNIT/0.5 ML ML SQ SCH ×4 (07:30→20:46)
[2022-12-04] MEDS: METOCLOPRAMIDE 5 MG TAB PO SCH ×3 (08:00→18:33)
[2022-12-04] MEDS ORDERED: POTASSIUM 25 MEQ EFFERV TAB PO ONE (08:00)
[2022-12-04] MEDS ORDERED: FOLIC ACID 1 MG TABLET ONE (08:41)
[2022-12-04] MEDS ORDERED: ASPIRIN 81 MG CHEWABLE TABLET ONE (08:41)
[2022-12-04] MEDS ORDERED: PANTOPRAZOLE 40 MG INJ ONE (08:41)
[2022-12-04] MEDS ORDERED: POTASSIUM 25 MEQ EFFERV TAB ONE (08:42)
[2022-12-04] MEDS ORDERED: NA CHLORIDE 0.9% 1,000 ML ONE (08:42)
[2022-12-04] MEDS: ASPIRIN 81 MG CHEWABLE TABLET PO SCH (08:53)
[2022-12-04] MEDS: carvediloL 25 MG TAB PO SCH ×2 (08:53→20:46)
[2022-12-04] MEDS: FERROUS SULFATE 325 MG TAB PO SCH (08:54)
[2022-12-04] MEDS: PANTOPRAZOLE 40 MG INJ IVP SCH (08:54)
[2022-12-04] MEDS: GABAPENTIN 100 MG CAP PO SCH ×3 (08:54→20:45)
[2022-12-04] MEDS ORDERED: INSULIN -REGULAR HUMAN 50 UNIT/0.5 ML ML ONE ×2 (08:54→12:07)
[2022-12-04] MEDS: FOLIC ACID 1 MG TABLET PO SCH (08:54)
[2022-12-04] MEDS: DOCUSATE NA 100 MG CAP PO SCH ×2 (09:00→20:47)
[2022-12-04] MEDS ORDERED: THIAMINE MONONITRATE 100 MG PO SCH (09:00)
[2022-12-04] MEDS: POLYETHYL GLY 3350 17 GM/DOSE PO SCH (09:00)
[2022-12-04] MEDS: THIAMINE HCL 100 MG TABLET PO SCH (09:00)
[2022-12-04] MEDS ORDERED: INFLUENZA VACCINE (for 6+ mo) 0.5 ML DOSE IMVAC ONE (09:00)
[2022-12-04] MEDS: DULOXETINE 20 MG CAP PO SCH ×2 (09:00→20:45)
[2022-12-04] MEDS: PROMETHAZINE INJ 25 MG/ML AMP IV PRN ×2 (09:20→15:50)
[2022-12-04] MEDS ORDERED: PROMETHAZINE INJ 25 MG/ML AMP ONE (09:25)
[2022-12-04] MEDS ORDERED: METOCLOPRAMIDE 5 MG TAB ONE ×2 (10:11→13:26)
[2022-12-04] MEDS ORDERED: MORPHINE 2 MG/ML SYR IV PRN (12:00)
--- NOTE | 2022-12-04 12:02 | P.PN ---
Subjective Date of Service: 12/04/22 Chief Complaint: Abdominal pain, N\\V No acute events overnight. He reports that his abdominal pain is persistent. He reports severe nausea/vomiting. He states that he has been unable to keep any food down. Review of Systems 10-point ROS is otherwise unremarkable Gastrointestinal: Nausea, Vomiting, Abdominal Pain Physical Examination - Vital Signs Temperature: 98.8 F Blood Pressure: 170/91 Pulse: 77 Respirations: 18 Pulse Ox (%): 98 - Physical Exam General: Alert, In no apparent distress, Oriented x3 HEENT: Atraumatic, EOMI, Sclerae nonicteric Neck: No Thyromegaly Respiratory: Clear to auscultation bilaterally, Normal air movement Cardiovascular: No edema, Regular rate/rhythm, Normal S1 S2, No gallops, No rubs, No murmurs Gastrointestinal: Hypoactive, Soft and benign, No rebound, No guarding, Tenderness (generalized) Musculoskeletal: No clubbing Integumentary: No rashes Neurological: Normal speech, Normal affect - Studies Laboratory Data (last 24 hrs) 12/03/22 11:40: Sodium 136, Potassium 4.1, BUN 14, Creatinine 0.77, Glucose 316 H, Total Bilirubin 1.1 H, AST 25, ALT 44, Alkaline Phosphatase 91, Lipase 376 Assessment And Plan - Plan # Intractable Abdominal Pain, Nausea, Vomiting - likely due to Chronic Pancreatitis +/- Diabetic Gastroparesis +/- Cannabis Hyperemesis Syndrome # Hyperglycemia in Type II Diabetes Mellitus complicated by Gastroparesis # 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 Splenomegaly with multiple lesions. These may indicate metastases, infection or benign process." - Lipase = 376 - UDS = THC positive - Consulted Gastroenterology and spoke with Dr. Muñoz - recommendations appreciated - He suspects C-loop inflammation secondary to chronic pancreatitis - Started on clear liquid diet - advance as tolerated - Lactated Ringers 100 mL/hour - Continue home metoclopramide, gabapentin, pantoprazole - PRN acetaminophen, morphine, ondansetron, promethazine - Discontinue piperacillin-tazobactam at this time # Hypertension - Continue home carvedilol, PRN hydralazine # Multiple Splenic Lesions - Noted on CT scan - Advised to follow-up with PCP for further evaluation Magdiel Hernandez M.D.
[2022-12-04] MEDS ORDERED: THIAMINE HCL 100 MG TABLET ONE (12:05)
[2022-12-04] MEDS: Ringers Lactate 1,000 ML IV SCH ×2 (13:00→23:06)
[2022-12-04] MEDS ORDERED: Ringers Lactate 1,000 ML IV ONE (13:26)
[2022-12-04] MEDS ORDERED: ONDANSETRON 4 MG/2 ML VIAL ONE (13:31)
[2022-12-04] MEDS: ONDANSETRON 4 MG/2 ML VIAL IV PRN (14:18)
--- NOTE | 2022-12-04 17:15 | EKG ---
Test Date: 2022-12-03 Test Time: 12:00:31 Founder And President: KATIE MEASUREMENT RESULTS: Intervals: Rate: 74 ND: 194 QRSD: 96 QT: 430 QTc: 477 [place]: P: 53 ND: 194 QRS: 40 T: -5 INTERPRETIVE STATEMENTS: Normal sinus rhythm with sinus arrhythmia Normal ECG Compared to ECG 10/08/2022 06:12:32 Atrial fibrillation no longer present Electronically Signed On 12-04-22 17:10:08 BUTTON CUTTING MACHINE OPERATOR by Cy Ramirez
[2022-12-04] MEDS: DOXEPIN HCL 10 MG CAP PO SCH (20:45)
[2022-12-04] MEDS: MELATONIN 5 MG TABLET PO SCH (20:53)
[2022-12-05 03:10] LABS: Protime INR 1.19
[2022-12-05 03:23] LABS: Magnesium 2.1 mg/dL (1.6-2.4); Potassium 3.8 mmol/L (3.5-5.1)
[2022-12-05] MEDS: INSULIN -REGULAR HUMAN 50 UNIT/0.5 ML ML SQ SCH ×4 (08:15→20:35)
[2022-12-05] MEDS: POLYETHYL GLY 3350 17 GM/DOSE PO SCH (08:15)
[2022-12-05] MEDS: DOCUSATE NA 100 MG CAP PO SCH ×2 (08:16→20:34)
[2022-12-05] MEDS: DULOXETINE 20 MG CAP PO SCH ×2 (08:16→20:35)
[2022-12-05] MEDS: ONDANSETRON 4 MG/2 ML VIAL IV PRN (08:16)
[2022-12-05] MEDS: PANTOPRAZOLE 40 MG INJ IVP SCH (08:16)
[2022-12-05] MEDS: FOLIC ACID 1 MG TABLET PO SCH (08:16)
[2022-12-05] MEDS: FERROUS SULFATE 325 MG TAB PO SCH (08:16)
[2022-12-05] MEDS: ASPIRIN 81 MG CHEWABLE TABLET PO SCH (08:17)
[2022-12-05] MEDS: THIAMINE HCL 100 MG TABLET PO SCH (08:17)
[2022-12-05] MEDS: METOCLOPRAMIDE 5 MG TAB PO SCH ×3 (08:17→16:50)
[2022-12-05] MEDS: carvediloL 25 MG TAB PO SCH ×2 (08:17→20:35)
[2022-12-05] MEDS: GABAPENTIN 100 MG CAP PO SCH ×3 (08:17→20:34)
[2022-12-05] MEDS: Ringers Lactate 1,000 ML IV SCH (09:00)
[2022-12-05] MEDS ORDERED: POTASSIUM 25 MEQ EFFERV TAB PO ONE (09:00)
[2022-12-05 10:06] VITALS: O2SAT 97
[2022-12-05] MEDS ORDERED: LABETALOL 20 MG/4ML SYRINGE IV ONE ×2 (13:18→17:55)
[2022-12-05] MEDS ORDERED: DICYCLOMINE HCL 10 MG CAP PO PRN (13:32)
[2022-12-05] MEDS: HALOPERIDOL LACT 5 MG/ML INJ IV PRN (14:19)
[2022-12-05] MEDS: PROMETHAZINE INJ 25 MG/ML AMP IV PRN (16:20)
[2022-12-05] MEDS ORDERED: HALOPERIDOL LACT 5 MG/ML INJ IV ONE (16:43)
--- NOTE | 2022-12-05 17:23 | P.PN ---
Subjective Date of Service: 12/05/22 Chief Complaint: Abdominal pain, N\\V No acute events overnight. He reports that his abdominal pain, nausea, and vomiting continue to worsen. He was able to eat clear liquids, but has been unable to keep full liquid down. Review of Systems 10-point ROS is otherwise unremarkable Gastrointestinal: Nausea, Vomiting, Abdominal Pain Physical Examination - Vital Signs Temperature: 98.6 F Blood Pressure: 193/95 Pulse: 75 Respirations: 16 Pulse Ox (%): 96 Assessment And Plan - Plan - Physical Exam General: Alert, In no apparent distress, Oriented x3 HEENT: Atraumatic,Sclerae nonicteric Neck: No JVD distention. 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 Splenomegaly with multiple lesions. These may indicate metastases, infection or benign process." - Lipase = 376 - UDS = THC positive - Consulted Gastroenterology and spoke with Dr. Muñoz - recommendations appreciated - He suspects C-loop inflammation secondary to chronic pancreatitis - Clear liquid diet - advance as tolerated - Lactated Ringers 100 mL/hour - Continue home metoclopramide, gabapentin, pantoprazole - PRN acetaminophen, ondansetron, promethazine - Start haloperidol and dicyclomine - At his request, spoke with his PCP (Dr. Ho), who stated that we should try to minimize narcotic medications given his prior opioid-dependence - This was relayed to Mr. Gonzalez, who agreed # Hypertension - Continue home carvedilol, PRN hydralazine # Multiple Splenic Lesions - Noted on CT scan - Advised to follow-up with PCP for further evaluation Magdiel Hernandez M.D.
[2022-12-05] MEDS: DOXEPIN HCL 10 MG CAP PO SCH (20:34)
[2022-12-05] MEDS: MELATONIN 5 MG TABLET PO SCH (20:34)
[2022-12-06] MEDS: ONDANSETRON 4 MG/2 ML VIAL IV PRN (03:55)
--- NOTE | 2022-12-06 07:41 | P.DS ---
Admission Date: 12/03/22 Discharge Date: 12/06/22 Disposition: ROUTINE DISCHARGE Discharge Condition: GOOD Reason for Admission: Abdominal pain, N\\V Consultations: 1. Gastroenterology Hospital Course: DIAGNOSES: # Intractable Abdominal Pain, Nausea, Vomiting - likely due to Chronic Pancreatitis +/- Diabetic Gastroparesis +/- Cannabis Hyperemesis Syndrome # Hyperglycemia in Type II Diabetes Mellitus complicated by Gastroparesis # Alcoholic Cirrhosis complicated by Portal Hypertension with Esophageal Varices s/p Banding # Thrombocytopenia secondary to Cirrhosis # Gastroesophageal Reflux Disease # Substance Use Disorder - THC # Hypertension # Multiple Splenic Lesions HOSPITAL COURSE: Mr. Eitan Gonzalez is a 57 year old male with a past medical history significant for type 2 diabetes mellitus, alcoholic cirrhosis complicated by portal hypertension with esophageal varices s/p banding, gastroesophageal reflux disease, and hypertension who was admitted to the [facility] on 12/03/2022 for intractable abdominal pain, nausea, and vomiting. He was admitted to the Medicine service. Upon further evaluation, his CT abdomen/pelvis revealed, "thickening of the wall of proximal and mid duodenum probably indicating inflammation. Splenomegaly with multiple lesions. These may indicate metastases, infection or benign process." Gastroenterology was consulted and he was evaluated by Dr. Muñoz. He stated that his symptoms were likely secondary to chronic pancreatitis, gastroparesis, and/or cannabis hyperemesis syndrome. He recommended symptom control and gradual advancement of diet. Once he was able to tolerate a diet, Dr. Muñoz cleared him for discharge home. He was placed NPO and his diet was gradually advanced. In regards to his symptoms, he requested that we try to avoid narcotic pain medications. At his request, spoke with his PCP (Dr. Ho), who stated that we should try to minimize narcotic medications given his prior opioid- dependence. We gradually adjusted his regimen to include ondansetron, promethazine, dicyclomine, and haloperidol. With this regimen, his symptoms completely subsided. His QTc interval was checked and was 457 msec. He stated that he felt well and would like to be discharged home. Of note, he was found to have to multiple splenic lesions, of uncertain clinical significance. He was counseled on these findings and advised to follow-up with his PCP. He verbalized understanding and agreed to make this appointment. On 12/06/2022, he was seen on morning rounds and deemed medically stable for discharge. He was discharged with instructions to schedule follow-up appointments with his PCP (Dr. Ho), with Gastroenterology (Dr. Palomo), and with his Pain Medicine specialist. He was provided prescriptions for ondansetron, promethazine, haloperidol, and dicyclomine. He and his were given the opportunity to ask questions and reported no further questions. Furthermore, all questions were answered to the best of my ability. A copy of this discharge summary will be sent to the above providers to facilitate continuity of care. Today, I personally spent 25 minutes on his case, of which greater than 50% of the time was spent in patient education, counseling, and coordination of care as described above. - Physical Exam General: Alert, In no apparent distress, Oriented x3 HEENT: Atraumatic, Sclerae nonicteric Neck: No JVD distention. Respiratory: Clear to auscultation bilaterally, Normal air movement Cardiovascular: No edema, Regular rate/rhythm, No murmurs Gastrointestinal: Normoactive, Soft, No rebound, No guarding, No tenderness Musculoskeletal: No clubbing Integumentary: No rashes Neurological: Normal speech, Normal affect Vital Signs/Physical Exam: Temp Pulse Resp BP Pulse Ox 96.9 F 80 17 120/69 98 12/06/22 04:00 12/06/22 04:00 12/06/22 04:00 12/06/22 04:00 12/06/22 04:00 Laboratory Data at Discharge: WBC 5.20 K/uL (4.3-10.9) 12/03/22 11:40 Hgb 13.5 g/dL (13.6-17.9) L 12/03/22 11:40 Hct 40.5 % (39.6-49.0) 12/03/22 11:40 Plt Count 62 K/uL (152-406) L 12/03/22 11:40 PT 13.1 SECONDS (9.5-12.5) H 12/05/22 03:00 INR 1.19 12/05/22 03:00 Sodium 136 mmol/L (136-145) 12/05/22 03:00 Potassium 4.2 mmol/L (3.5-5.1) 12/06/22 05:58 BUN 17 mg/dL (7-18) 12/05/22 03:00 Creatinine 0.68 mg/dL (0.70-1.30) L 12/05/22 03:00 Glucose 174 mg/dL (74-106) H 12/05/22 03:00 Phosphorus 4.0 mg/dL (2.5-4.9) 12/04/22 02:05 Magnesium 2.1 mg/dL (1.6-2.4) 12/05/22 03:00 Total Bilirubin 1.1 mg/dL (0.2-1.0) H 12/04/22 02:05 AST 22 U/L (15-37) 12/04/22 02:05 ALT 40 U/L (16-61) 12/04/22 02:05 Alkaline Phosphatase 78 U/L (45-117) 12/04/22 02:05 Lipase 376 U/L (73-393) 12/03/22 11:40 Home Medications: RX: Ferrous Sulfate [Ferrous Sulfate*] 325 mg PO DAILY 07/28/22 RX: Thiamine Mononitrate (Vit B1) [Vitamin B-1] 100 mg PO DAILY 07/28/22 RX: Doxepin HCl [Sinequan*] 10 mg PO BEDTIME 30 Days #30 cap 08/05/22 RX: Gabapentin [Neurontin*] 100 mg PO TID 30 Days #90 cap 08/05/22 RX: Metoclopramide HCl [Reglan] 10 mg PO TIDWM 30 Days #90 tab 08/05/22 RX: carvediloL [Carvedilol] 12.5 mg PO BID 10/02/22 RX: Carvedilol [Coreg] 1 tab PO BID 10/03/22 RX: Melatonin 1 tab PO BEDTIME 10/03/22 RX: Pantoprazole Sodium 2 tab PO BID 10/03/22 RX: Polyethylene Glycol 3350 [Miralax] 1 packet PO DAILY 10/03/22 RX: Lipase/Protease/Amylase [Creon Dr 36,000 Unit Capsule] 2 cap PO SEECOM 10/04/22 RX: Metformin HCl 1 tab PO BID 10/04/22 RX: Tramadol HCl [Ultram] 1 tab PO TID PRN 10/04/22 RX: Dapagliflozin Propanediol [Farxiga] 1 tab PO DAILY 12/04/22 RX: Docusate Sodium 1 tab PO BID 12/04/22 RX: Duloxetine [Cymbalta *] 1 cap PO BID 12/04/22 RX: Famotidine [Zantac-360 (Famotidine)] 1 tab PO BEDTIME 12/04/22 RX: Folic Acid 1 tab PO DAILY 12/04/22 RX: Meclizine HCl 1 tab PO PRN 12/04/22 RX: Rifaximin [Xifaxan] 550 mg PO BID 12/04/22 RX: Rosuvastatin [Crestor*] 2 tab PO DAILY 12/04/22 RX: hydrOXYzine HCL [Atarax*] 1 tab PO PRN 12/04/22 RX: Duloxetine [Cymbalta *] 40 mg PO DAILY 12/05/22 RX: Erythromycin Base [Erythromycin] 125 mg PO QID 12/05/22 RX: Gabapentin 200 mg PO TID 12/05/22 Dicyclomine [Bentyl] 20 mg PO TID PRN 10 Days #60 cap 12/06/22 Ondansetron [Zofran] 4 mg PO Q8HP PRN #30 tab 12/06/22 Promethazine Tab [Phenergan] 25 mg PO BEDTIME PRN PRN #30 tab 12/06/22 haloperidoL [Haldol] 0.5 mg PO Q6H PRN 10 Days #30 tab 12/06/22 New Medications: Ondansetron [Zofran] 4 mg PO Q8HP PRN #30 tab PRN Reason: Nausea / Vomiting Dicyclomine [Bentyl] 20 mg PO TID PRN 10 Days #60 cap PRN Reason: Abdominal Cramps haloperidoL [Haldol] 0.5 mg PO Q6H PRN 10 Days #30 tab PRN Reason: Nausea / Vomiting Promethazine Tab [Phenergan] 25 mg PO BEDTIME PRN PRN #30 tab PRN Reason: Nausea / Vomiting Physician Discharge Instructions: 1. Please call and schedule a follow-up appointment with your PCP (Dr. Ho) in 3-5 days - Please discuss the spots on your spleen with him at this appointment to see if there is any additional evaluation that needs to be completed 2. Please call and schedule a follow-up appointment with your Photoengraving Finisher (Dr. Palomo) in 5-7 days 3. Please attend your scheduled Pain Medicine appointment on 12/10/2022 Diet: Regular Activity: Ad jennifer Followup: Marko Ho MD [Primary Care Provider] - 2-3 Days (Call for appointment.) Michael Palomo MD [ASSOCIATE-ACTIVE - CAN ADMIT] - Time spent managing pt's care (in minutes): 25
--- NOTE | 2022-12-06 07:51 | EKG ---
Test Date: 2022-12-05 Test Time: 16:36:03 Staff Attorney: Kamila VALENCIA MEASUREMENT RESULTS: Intervals: Rate: 82 VT: 156 QRSD: 92 QT: 392 QTc: 457 Nelson: P: 44 VT: 156 QRS: 14 T: 22 INTERPRETIVE STATEMENTS: Normal sinus rhythm Normal ECG Compared to ECG 12/03/2022 12:00:31 Sinus arrhythmia no longer present Electronically Signed On 12-06-22 07:50:48 WIRELESS SALES CONSULTANT by Cy Ramirez
[2022-12-06] MEDS: POLYETHYL GLY 3350 17 GM/DOSE PO SCH (08:11)
[2022-12-06] MEDS: carvediloL 25 MG TAB PO SCH (08:12)
[2022-12-06] MEDS: FOLIC ACID 1 MG TABLET PO SCH (08:12)
[2022-12-06] MEDS: PANTOPRAZOLE 40 MG INJ IVP SCH (08:12)
[2022-12-06] MEDS: METOCLOPRAMIDE 5 MG TAB PO SCH (08:12)
[2022-12-06] MEDS: DOCUSATE NA 100 MG CAP PO SCH (08:12)
[2022-12-06] MEDS: HALOPERIDOL LACT 5 MG/ML INJ IV PRN (08:12)
[2022-12-06] MEDS: DULOXETINE 20 MG CAP PO SCH (08:13)
[2022-12-06] MEDS: THIAMINE HCL 100 MG TABLET PO SCH (08:13)
[2022-12-06] MEDS: FERROUS SULFATE 325 MG TAB PO SCH (08:13)
[2022-12-06] MEDS: INSULIN -REGULAR HUMAN 50 UNIT/0.5 ML ML SQ SCH (08:13)
[2022-12-06] MEDS: ASPIRIN 81 MG CHEWABLE TABLET PO SCH (08:13)
[2022-12-06] MEDS: GABAPENTIN 100 MG CAP PO SCH (08:13)
[2022-12-06 08:21] VITALS: BP 129/80; TEMP 97.7
== END 2022-12-06 08:35 | disposition home or self-care (01) ==
LOC: ER 11:20 → ERHOLD 17:27 → 4TH 12-04 15:11
PROVIDERS: ADMIT Internal Medicine; ATTEND Internal Medicine
DX: R10.9 Unspecified abdominal pain (principal); R11.2 Nausea with vomiting, unspecified; K85.90 Acute pancreatitis without necrosis or infection, unspecified; K21.9 Gastro-esophageal reflux disease without esophagitis; F12.90 Cannabis use, unspecified, uncomplicated; E11.43 Type 2 diabetes mellitus with diabetic autonomic (poly)neuropathy; K31.84 Gastroparesis; G47.00 Insomnia, unspecified; I10 Essential (primary) hypertension; D69.6 Thrombocytopenia, unspecified; R16.1 Splenomegaly, not elsewhere classified; D73.9 Disease of spleen, unspecified; E11.65 Type 2 diabetes mellitus with hyperglycemia; K70.30 Alcoholic cirrhosis of liver without ascites; Z87.891 Personal history of nicotine dependence
CPT/HCPCS: 93005 ×2; 87040; 85025; 81001; 80048; 36415 ×3; 83735 ×2; 82550; 84100; 84132; 85610; 82947 ×10; 84443; 84439; 83690; 80053 ×2; 80307; 74177; 99285; 87811; Q9967; J1630 ×4; J2765; J2550 ×4; J1200; J1815 ×9; J2543 ×2; Q0169; C9113 ×4; J1650; J2270; J7120 ×2; J7030 ×3; J2405 ×3; J2800; G0378

== ENCOUNTER 2023-02-22 19:32 | Emergency (ER) | payer BC ==
--- OUTSIDE RECORDS SUMMARY | 2023-02-22 20:03 | XMS REPORT | Continuity of Care Document ---
:[address] [facility] t Address [address] [place] [address] [address] [place] [address] Care Team Providers Name Role Phone Bar Jameson MD Primary Care Physician KAREN MORALEZ Attending Clinician Unavailable BAR JAMESON Attending Clinician Unavailable UNKNOWN, ATTENDING Attending Clinician Unavailable JASWANT CASH Attending Clinician Unavailable JASWANT CASH Attending Clinician Unavailable LILY REILLY Attending Clinician Unavailable JORGE A LYONS Attending Clinician Unavailable JORGE A LYONS Attending Clinician Unavailable Bar Jameson MD Attending Clinician Lab, Ang - Db Attending Clinician Unavailable Doctor Unassigned, Vazquez Attending Clinician Unavailable Maura Haas MD Attending Clinician ELICIA HENDERSON Attending Clinician Unavailable Elicia Henderson MD Attending Clinician Ruddy Easton MD Attending Clinician Mallory Viveros Attending Clinician ELICIA HENDERSON Attending Clinician Unavailable Lily Reilly MD Attending Clinician CASSY SANCHEZ Attending Clinician Unavailable Cassy Sanchez MD Attending Clinician MAGALI QUINTERO Attending Clinician Unavailable VAISHALI MARTIN Attending Clinician Unavailable Vaishali Martin MD Attending Clinician YOVANI GUPTA Attending Clinician Unavailable YOVANI GUPTA Attending Clinician Unavailable Laurie ROOFER METAL, José Luis Attending Clinician Garrett ROOFER METAL, Jaylin Bain Attending Clinician JAYLIN MILLARD Attending Clinician Unavailable Merchant SAVAGE, Jayy Attending Clinician Madelaine SAVAGE, Naida Attending Clinician Sangita SAVAGE, Berenice Attending Clinician Aamir SAVAGE, Melly Attending Clinician Lilliana SAVAGE, Quita Bray Attending Clinician MELLY LOSEN Attending Clinician Unavailable Yoseph Vivas MD Attending Clinician Guillermo Cabrales MD Attending Clinician Rehana BYRD, Chanel Attending Clinician Jack Metz MD Attending Clinician [...] Clinician Ana Rosa Chapman MD Attending Clinician [phone] Guanako Schaffer MD Attending Clinician Carolin Stirckland MD Attending Clinician WILLI KRUEGER Attending Clinician Unavailable RICHARD TOLENTINO Attending Clinician Unavailable Maricel Nixon MD Attending Clinician LINDA ROMAN Attending Clinician Unavailable LINDA ROMAN Attending Clinician Unavailable Linda Roman DO Attending Clinician Genesis Ho OD Attending Clinician GENESIS HO Attending Clinician Unavailable NYASIA MEEKS Attending Clinician Unavailable Eda PACNyasia Attending Clinician ESTRADA PERKINS Attending Clinician Unavailable [...] Clinician Unavailable KAREN MORALEZ Admitting Clinician Unavailable ELICIA HENDERSON Admitting Clinician Unavailable QUITA CONTI Admitting Clinician Unavailable BROOKS [place] Admitting Clinician Unavailable RATNA VALENCIA Admitting Clinician Unavailable LINDA ROMAN Admitting Clinician Unavailable Delon SANDHU Admitting Clinician Unavailable JOSE CARRION Admitting Clinician Unavailable Payers Payer Name Policy Type Policy Number Effective Date Expiration Date S ource [place] PPO OPTIONS [id number] 2021 00:00:00 [facility] - OUT [id number] 2022 OF FORMERLY [facility] 00:00:00 OUT OF STATE [facility] - [id number] [facility] CHOICE/CHOICE [id number] 2022 PLUS/OPTIONS PPO - 00:00:00 [facility] - [id number] CARDIOVASCULAR CARE PROVIDERS [facility] [id number] [facility] [id number] 2020 PPO/POS 00:00:00 [facility] 3 [id number] 2022 00:00:00 Problems Condition Condition Condition Status Onset Resolution Last Treating Co mments Source Name Details Category Date Date Treatment Clinician Date Localized Localized Disease Active Uni vers osteoarthr osteoarthr 5-04 it y of osis of osis of 00:00: [place] shoulder shoulder 00 Medica l regions, regions, Branch bilateral bilateral Chronic Chronic Disease Active Univers pain pain 5-04 ity of syndrome syndrome 00:00: [place] 00 Medical Branch Chronic Chronic Disease Active Univers pain of pain of 4-11 ity of both both 00:00: [place] shoulders shoulders 00 Medi vidal Branch Weakness Weakness Disease Active Unive rs of of 4-11 ity of shoulder shoulder 00:00: [place] 00 Medical Branch Thyroid Thyroid Disease Active Univers enlargemen enlargemen 4-11 it y of t t 00:00: [place] 00 Medical Branch Portal Portal Disease Active Univers venous venous 3-09 ity of hypertensi hypertensi 00:[place] 00 Medical [place] Other Other Disease Active Univers acute acute 3-09 [place]y of pulmonary pulmonary [place] embol[place] embolism 00 Medica [place] without without Branch acute cor acute cor pulmonale pulmonale Renal Renal Disease Active Univers cyst, cyst, 3-09 ity of right right 00:00: [place] 00 Medical Branch Splenic Splenic Disease Active Univers lesion lesion 2-24 ity of 00:00: [place] 00 Medical Branch Disorder Disorder Disease Active Unive rs of of 2-21 ity of duodenum duodenum 00:00: [place] 00 Medical Branch Cannabis Cannabis Disease Active Unive rs hyperemesi hyperemesi 2-21 it y of s syndrome s syndrome 00:[place] concurrent concurrent 00 Me dical with and with and Branch due to due to cannabis cannabis dependence dependence Nausea & Nausea & Disease Active 2021-10 [facility] 00[facility]: [facility] 00 Center Obstipatio Obstipatio Disease Active 2021-10 U nivers n n 1-18 ity of 00:00: [place] 00 [facility] Branch 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 00:00: [place] with with 00 Medical bleeding bleeding Branch Gastroesop Gastroesop Disease Active 2021-10 U nivers hageal hageal 0-18 ity of reflux reflux 00:00: [place] disease disease 00 Medical with with Branch esophagiti esophagiti s and s and hemorrhage hemorrhage Nausea and Nausea and Disease Active 2021-10 U golders vomiting vomiting 0-18 ity of in adult in adult 00:00: [place] 00 [facility] Disease Active 2021-10 Unive rs discharge discharge 0-18 ity of follow-up [place]-up [place] [facility] 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 0-18 it y of 00:00: [place] 00 [facility] Chronic Chronic Disease Active 2021-10 Univers idiopathic idiopathic 0-18 it y of constipati constipati 00:[place] [facility] Branch Gastropare Gastropare Disease Active [facility] sis sis 07-18 [facility] 00:00: Medical 00 [place] Generalize Generalize Disease Active [facility] d 07-18 [facility] abdominal abdominal 00:00: Medi vidal pain pain 00 [place] Lung Lung Disease Active [facility] nodule nodule 07-18 [facility] 00:00: Medical 00 [place] Screening Screening Disease Active [facility] for for 07-18 [facility] malignant malignant 00:00: Medi vidal neoplasm neoplasm 00 [place] Hepatitis Hepatitis Disease Active [facility] B core B core 07-18 [facility] antibody antibody 00:00: Medica l positive positive 00 Center Hepatic Hepatic Disease Recurre [facility] encephalop encephalop nce -28 [facility] athy athy 00:00: Medical 00 Center Portal Portal Disease Recurre [facility] hypertensi hypertensi nce -28 [facility] [facility] on on 00:00: Medical 00 Center Secondary Secondary Disease Recurre [facility] esophageal esophageal nce - [facility] [facility] varices varices 00:00: Medical 00 Center Other Other Disease Active [facility] cirrhosis cirrhosis 07-18 [facility] of liver of liver 00:00: Medica l 00 Center GI bleed GI bleed Disease Active [facility] 9[facility]06 [facility] 00:00: [facility] 00 Center 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 Branch Other Other Disease Active Univers cirrhosis cirrhosis 6-10 ity of of liver of liver 00:00: [address] Branch Cholelithi Cholelithi Disease Active U nivers asis asis 6-10 ity of without without 00:00: [place] cholecysti cholecysti 00 Me dical tis tis Branch Anxiety, Anxiety, Disease Active Unive rs generalize generalize 6-10 it y of d d 00:00: [place] [facility] Branch Primary Primary Disease Active Univers insomnia insomnia 6-10 ity of 00:00: [place] [facility] Branch Diverticul Diverticul Disease Active U nivers osis of osis of 6-10 ity of colon colon 00:00: [place] [facility] Branch Idiopathic Idiopathic Disease Active U nivers acute acute 6-10 ity of pancreatit pancreatit 00:[place] without is without 00 Me dical infection infection Bran ch or or necrosis necrosis Diabetic Diabetic Disease Active Unive rs gastropare gastropare 6-10 it y of sis sis 00:00: [place] [facility] Branch Current Current Disease Active Univers moderate moderate 6-10 ity of episode of episode of 00:[place] major major 00 Medical depressive depressive Br anch disorder disorder without without prior prior episode episode Splenomega Splenomega Disease Active U nivers ly ly 6-10 ity of 00:00: [place] 00 Medical Branch Alcohol Alcohol Disease Active Univers use use 6-10 ity of 00:00: [place] 00 Medical Branch Abnormal Abnormal Disease Active Unive rs EKG EKG 5-18 ity of 00:00: [place] 00 Medical Branch Need for Need for Disease Active Unive rs hepatitis hepatitis 5-18 ity of C C 00:00: [place] screening screening 00 Medi vidal test test Branch Dizziness Dizziness Disease Active Uni vers 5-18 ity of 00:00: [place] 00 Medical Branch Postural Postural Disease Active Unive rs dizziness dizziness 5-18 ity of with near with near 00:00: Jumarodrigo faviola syncope syncope 00 Medical Branch Encounter Encounter Disease Active Uni vers to to 4-25 ity of establish establish 00:00: [place] [facility] care care 00 Medical Branch 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 00:00: [place] with with 00 Medical diabetic diabetic Branch polyneurop polyneurop athy, with athy, with long-term long-term current current use of use of insulin insulin Essential Essential Disease Active Uni vers hypertensi hypertensi 4-25 it y of on on 00:00: [place] 00 Medical Branch Erectile Erectile Disease Active [...] Source Name Type Date Date Clinician Dulaglut Propensi Active Rg miracle ty to 3-15 College adverse 00:00: of reaction 00 Medicin s to e drug DULAGLUT DRUG Active High N/V Univers MIRACLE INGREDI 5-20 ity of 00:00: [place] 00 [facility] Dulaglut Propensi Active Unknown - Pancreati Univers miracle ty to See comments 5-20 tis ity of adverse 00:00: Pancreati [place] reaction 00 tis [facility] DULAGLUT Allergy Active High N\\T\\V [facility] MIRACLE 5-20 [facility] 00:00: Medical 00 [place] Dulaglut Drug Active Nausea And Pancreati [facility] miracle Allergy Vomiting 5-20 tis [facility] 00:00: Medical 00 [place] NO KNOWN Allergy Active [facility] Social History Social Habit Start Date Stop Date Quantity Comments Source History SDOH [facility] Alcohol Frequency [facility] History SDOH [facility] Alcohol Std Drinks Medica Center History SDOH [facility] Alcohol Binge Medical [facility] ter History of tobacco Current smoker [facility] use [facility] History SDOH [facility] Transport Non-Med Medical [facility] Exposure to 2023-02-03 2023-02-13 Not sure University of SARS-CoV-2 (event) 00:00:00 08:53:00 [facility] Alcohol intake 2023-01-28 2023-01-28 Ex-drinker [facility] 00:00:00 00:00:00 (finding) [facility] Tobacco use and 2023-01-08 2023-01-[address] [facility] k[facility] exposure 00:00:00 00:00:00 tobacco non-user [facility] Tobacco Comment 2023-01-08 2023-01-08 quit [address] [facility] 00:00:00 00:00:00 as of 10/11/22 Medical Ce nter History [facility] 2022-12-31 2022-12-31 2 [facility] ge of Physical Activity 00:00:00 00:00:00 Medicin e DPW History [facility] 2022-12-31 2022-12-31 2 [facility] ge of Physical Activity 00:00:00 00:00:00 Medicin e MPS Alcohol Comment 2022-10-11 2022-10-[address] [facility] 00:00:00 00:00:00 6 months ago as Medical C enter of 10/11/22 History [facility] 2022-07-02 2022-07-[address] [facility] Transport Med 00:00:00 00:00:[address] [place] [address] [place] [facility] 2022-07-02 2022-07-[address] [facility] Housing Unable to 00:00:00 00:00:00 Medical Center Pay History [facility] 2022-07-02 2022-07-[address] [facility] Housing Places 00:00:00 00:00:00 Medical Ce nter Lived History [facility] 2022-07-02 2022-07-[address] [facility] Homeless 00:00:00 00:00:00 Medical Center Last Year Cigarettes smoked 2022-05-02 2022-05-02 Univers ity of current (pack per 00:00:00 00:00:00 [facility] ) - Reported Branch Cigarette 2022-05-02 2022-05-02 University of pack-years 00:00:00 00:00:00 [facility] Sex [birth year] [facility] llege of 00:00:00 00:00:00 Medicine Smoking Status Start Date Stop Date Source Tobacco smoking [facility] o f consumption unknown Medicine Ex-smoker 2022-05-02 00:00:00 2022-05-02 [place] o f [place] 00:00:00 Medical Branch Medications Ordered Filled Start Stop Current Ordering Indication Dosage Frequency Signature Comments Components Source Medication Medication Date Date Medication? Clinician (SIG) Name Name ondansetron Yes [id number] 4mg Take 1 Univers 4 mg 5-04 tablet by ity of disintegrat 00:00: mouth [place] ing tablet 00 every 8 Medica l (eight) Branch hours as needed for Nausea and Vomiting (N/V). Lidocaine Yes [id number] Apply to Univers (BLUE-EMU [id number] area(s) ity o f LIDOCAINE 00:00: [place] 72 [place] PATCH) 4 % 00 (seventy-t Med ical PtMd wo) hours. Branch spironolact Yes [id number] 50mg Take 1 Univers one 4-24 tablet by ity of (ALDACTONE) 00:00: [place] 50 mg 00 the Medical tablet morning. Branch furosemide Yes [id number] 20mg Take 1 Univers (LASIX) 20 4-24 tablet by ity of mg tablet 00:00: [place] 00 the Medical morning. Branch spironolact 3-0 Yes [id number] 50mg Take 1 Univers one 4-24 tablet by ity of (ALDACTONE) 00:00: [place] 50 mg 00 the Medical tablet morning. Branch furosemide 3-0 Yes [id number] 20mg Take 1 Univers (LASIX) 20 4-24 tablet by ity of mg tablet 00:00: [place] 00 the Medical morning. Branch docusate 3-0 Yes [id number] 100mg Take 1 Un darius 100 mg 4-24 capsule by ity of capsule 00:00: mouth [place] 00 daily as Medical needed for Branch Constipati on. spironolact 3-0 Yes [id number] 50mg Take 1 Univers one 4-24 tablet by ity of (ALDACTONE) 00:00: mouth [place] 50 mg 00 the Medical tablet morning. Branch furosemide 3-0 Yes [id number] 20mg Take 1 Univers (LASIX) 20 4-24 tablet by ity of mg tablet 00:00: [place] 00 the Medical morning. Branch docusate 3-0 Yes [id number] 100mg Take 1 Un darius 100 mg 4-24 capsule by ity of capsule 00:00: mouth once [place] 00 daily as Medical needed for Branch Constipati on. spironolact 3-0 Yes [id number] 50mg Take 1 Univers one 4-24 tablet by ity of (ALDACTONE) 00:00: mouth [place] 50 mg 00 the Medical tablet morning. Branch furosemide 3-0 Yes [id number] 20mg Take 1 Univers (LASIX) 20 4-24 tablet by ity of mg tablet 00:00: [place] 00 the Medical morning. Branch docusate 3-0 Yes [id number] 100mg Take 1 Un darius 100 mg 4-24 capsule by ity of capsule 00:00: mouth [place] 00 daily as Medical needed for Branch Constipati on. spironolact 3-0 Yes [id number] 50mg Take 1 Univers one 4-24 tablet by ity of (ALDACTONE) 00:00: mouth [place] 50 mg 00 the Medical tablet morning. Branch furosemide 3-0 Yes [id number] 20mg Take 1 Univers (LASIX) 20 4-24 tablet by ity of mg tablet 00:00: [place] 00 the Medical morning. Branch docusate Yes [id number] 100mg Take 1 Un darius 100 mg 4-24 capsule by ity of capsule 00:00: mouth [place] 00 daily as Medical needed for Branch Constipati on. insulin Yes INJECT 1 Univer s pump 4-22 EACH ity of cart,cont 00:00: [place] inf,BT 00 USLY RUDY Medical (OMNIPOD 72 HOURS Branch DASH PODS, GEN 4,) Crtg insulin Yes INJECT 1 Univer s pump 4-22 EACH ity of cart,cont 00:00: [place] inf,BT 00 USLY RUDY Medical (OMNIPOD 72 HOURS Branch DASH PODS, GEN 4,) Crtg insulin Yes INJECT 1 Univer s pump 4-22 EACH ity of cart,cont 00:00: [place] inf,BT 00 USLY RUDY Medical (OMNIPOD 72 HOURS Branch DASH PODS, GEN 4,) Crtg insulin Yes INJECT 1 Univer s pump 4-22 EACH ity of cart,cont 00:00: [place] inf,BT 00 USLY RUDY Medical (OMNIPOD 72 HOURS Branch DASH PODS, GEN 4,) Crtg insulin Yes INJECT 1 Univer s pump 4-22 EACH ity of cart,cont 00:00: [place] inf,BT 00 USLY RUDY Medical (OMNIPOD 72 HOURS Branch DASH PODS, GEN 4,) Crtg insulin Yes INJECT 1 Univer s pump 4-22 EACH ity of cart,cont 00:00: [place] inf,BT 00 USLY RUDY Medical (OMNIPOD 72 HOURS Branch DASH PODS, GEN 4,) Crtg omeprazole Yes 20mg Q.5D Take 1 [facility] (PriLOSEC) 4-10 capsule [facility] 20 MG 13:53: (20 mg Medical capsule 18 total) by Center mouth in the morning and 1 capsule (20 mg total) before bedtime. meclizine 2023-0 Yes 25mg Take [address] (ANTIVERT) 4-10 tablet (25 [place] [facility] 25 MG 13:53: mg total) Medical tablet 18 by mouth 3 Center (three) times daily as needed for Dizziness. gabapentin 202-0 Yes 100mg Q.[id number] Take [address] (NEURONTIN) 4-10 [id number] capsule [facility]ukes 100 MG 13:53: 3D (100 mg Medical capsule 18 total) by Center mouth in the morning and 1 capsule (100 mg total) at noon and 1 capsule (100 mg total) in the evening. lipase/prot 0 Yes Take by [facility] ease/amylas 4-10 mouth Lukes e (CREON 13:53: 6,000 TID Medi vidal ORAL) 18 . Center promethazin 0 Yes 25mg Take [address] [facility] [facility] e 4-10 tablet (25 [facility]ukes (PHENERGAN) 13:53: mg total) M edical 25 MG 18 by mouth Center tablet every night as needed for Nausea. b complex 2022-0 Yes 1{tbl} QD Take [address] vitamins 4-10 tablet by [facility]ukes tablet 13:53: mouth in Medical 18 the Center morning. docusate 2022-0 Yes 100mg Take [address] [facility] sodium 4-10 capsule [facility]ukes (COLACE) 13:53: (100 mg Medica l 100 MG 18 total) by Center capsule mouth 2 (two) times daily as needed for Constipati on. metFORMIN 2022-0 Yes 500mg Take 1 [facility] (GLUCOPHAGE 4-10 tablet [facility] ) 500 MG 13:53: (500 mg Medica l tablet 18 total) by Center mouth 2 (two) times daily with breakfast and dinner. insulin [address] lispro 4-10 subcutaneo [facility]ukes (HumaLOG) 13:53: usly in Medic al 100 unit/mL 18 the Center injection morning. ranitidine 2022-0 Yes 20mg Take [address] HCl (ZANTAC 4-10 by mouth. [place] ORAL) 13:53: Medical 18 Center omeprazole 2022-0 Yes 20mg Q.5D Take 1 [facility] (PriLOSEC) 4-10 capsule [facility] 20 MG 13:53: (20 mg Medical capsule 18 total) by Center mouth in the morning and 1 capsule (20 mg total) before bedtime. meclizine 2023-0 Yes 25mg Take [address] (ANTIVERT) 4-10 tablet (25 [place] [facility] 25 MG 13:53: mg total) Medical tablet 18 by mouth 3 Center (three) times daily as needed for Dizziness. gabapentin 2023-0 Yes 100mg Q.[id number] Take [address] (NEURONTIN) 4-10 [id number] capsule [facility] 100 MG 13:53: 3D (100 mg Medical capsule 18 total) by Center mouth in the morning and 1 capsule (100 mg total) at noon and 1 capsule (100 mg total) in the evening. lipase/prot 202-0 Yes Take by [facility] ease/amylas 4-10 mouth [facility]ukes e (CREON 13:53: 6,000 TID Medi vidal ORAL) 18 . Center promethazin 2022-0 Yes 25mg Take [address] [facility] e 4-10 tablet (25 [facility] (PHENERGAN) 13:53: mg total) M edical 25 MG 18 by mouth Center tablet every night as needed for Nausea. b complex 2022-0 Yes 1{tbl} QD Take [address] vitamins 4-10 tablet by [facility]ukes tablet 13:53: mouth in Medical 18 the Center morning. docusate 2022-0 Yes 100mg Take [address] [facility] sodium 4-10 capsule [facility] (COLACE) 13:53: (100 mg Medica l 100 MG 18 total) by Center capsule mouth 2 (two) times daily as needed for Constipati on. metFORMIN 2022-0 Yes 500mg Take 1 [facility] (GLUCOPHAGE 4-10 tablet [facility] ) 500 MG 13:53: (500 mg Medica l tablet 18 total) by Center mouth 2 (two) times daily with breakfast and dinner. insulin 2022-[address] lispro 4-10 subcutaneo [facility]ukes (HumaLOG) 13:53: usly in Medic al 100 unit/mL 18 the Center injection morning. ranitidine 2023-0 Yes 20mg Take [address] HCl (ZANTAC 4-10 by mouth. [place] [facility] ORAL) 13:53: Medical 18 Center omeprazole 3-0 Yes 20mg Q.5D Take 1 [facility] (PriLOSEC) 4-10 capsule [facility] 20 MG 13:53: (20 mg Medical capsule 18 total) by Center mouth in the morning and 1 capsule (20 mg total) before bedtime. meclizine 2023-0 Yes 25mg Take [address] (ANTIVERT) 4-10 tablet (25 [place] [facility] 25 MG 13:53: mg total) Medical tablet 18 by mouth 3 Center (three) times daily as needed for Dizziness. gabapentin 2023-0 Yes 100mg Q.[id number] Take [address] (NEURONTIN) 4-10 [id number] capsule [facility] 100 MG 13:53: 3D (100 mg Medical capsule 18 total) by Center mouth in the morning and 1 capsule (100 mg total) at noon and 1 capsule (100 mg total) in the evening. lipase/prot 2022-0 Yes Take by [facility] ease/amylas 4-10 mouth Lukes e (CREON 13:53: 6,000 TID Medi vidal ORAL) 18 . Center promethazin 2022-0 Yes 25mg Take [address] [facility] e 4-10 tablet (25 [facility] (PHENERGAN) 13:53: mg total) M edical 25 MG 18 by mouth Center tablet every night as needed for Nausea. b complex 2022-0 Yes 1{tbl} QD Take [address] vitamins 4-10 tablet by Lukes tablet 13:53: mouth in Medical 18 the Center morning. docusate 2022-0 Yes 100mg Take [address] sodium 4-10 capsule [facility]ukes (COLACE) 13:53: (100 mg Medica l 100 MG 18 total) by Center capsule mouth 2 (two) times daily as needed for Constipati on. metFORMIN 2022-0 Yes 500mg Take 1 [facility] (GLUCOPHAGE 4-10 tablet [facility] ) 500 MG 13:53: (500 mg Medica l tablet 18 total) by Center mouth 2 (two) times daily with breakfast and dinner. insulin 2022-[address] [facility] lispro 4-10 subcutaneo Lukes (HumaLOG) 13:53: usly in Medic al 100 unit/mL 18 the Center injection morning. ranitidine 2022-0 Yes 20mg Take [address] HCl (ZANTAC 4-10 by mouth. [place] ORAL) 13:53: Medical 18 Center omeprazole 2022-0 Yes 20mg Q.5D Take 1 [facility] (PriLOSEC) 4-10 capsule [facility] 20 MG 13:53: (20 mg Medical capsule 18 total) by Center mouth in the morning and 1 capsule (20 mg total) before bedtime. meclizine 2022-0 Yes 25mg Take [address] (ANTIVERT) 4-10 tablet (25 [place] 25 MG 13:53: mg total) Medical tablet 18 by mouth 3 Center (three) times daily as needed for Dizziness. gabapentin 2022-0 Yes 100mg Q.[id number] Take [address] (NEURONTIN) 4-10 [id number] capsule [facility] 100 MG 13:53: 3D (100 mg Medical capsule 18 total) by Center mouth in the morning and 1 capsule (100 mg total) at noon and 1 capsule (100 mg total) in the evening. lipase/prot 2022-0 Yes Take by [facility] ease/amylas 4-10 mouth [facility]ukes e (CREON 13:53: 6,000 TID Medi vidal ORAL) 18 . [place] promethazin 2022-0 Yes 25mg Take [address] [facility] e 4-10 tablet (25 [facility] (PHENERGAN) 13:53: mg total) edical 25 MG 18 by mouth Center tablet every night as needed for Nausea. b complex 2022-0 Yes 1{tbl} QD Take [address] vitamins 4-10 tablet by [facility]ukes tablet 13:53: mouth in Medical 18 the Center morning. docusate 2022-0 Yes 100mg Take [address] [facility] sodium 4-10 capsule [facility] (COLACE) 13:53: (100 mg Medica l 100 MG 18 total) by Center capsule mouth 2 (two) times daily as needed for Constipati on. metFORMIN 2022-0 Yes 500mg Take 1 [facility] (GLUCOPHAGE 4-10 tablet [facility] ) 500 MG 13:53: (500 mg Medica l tablet 18 total) by Center mouth 2 (two) times daily with breakfast and dinner. insulin 2022-[address] [facility] lispro 4-10 [facility]aneo [facility] (HumaLOG) 13:53: usly in Medic al 100 unit/mL 18 the Center injection morning. ranitidine 2022-0 Yes 20mg Take [address] HCl (ZANTAC 4-10 by mouth. [facility] es ORAL) 13:53: Medical 18 Center traMADoL 2022-0 2022- No 50mg Take [address] [facility] (ULTRAM) 50 4-10 04-10 tablet (50 [facility] mg tablet 09:33: 00:00 mg total) Me dical 27 :00 by mouth Center every 6 (six) hours as needed for Pain. traMADoL 2022-0 2022- No 50mg Take [address] [facility] (ULTRAM) 50 4-10 04-10 tablet (50 [facility] mg tablet 09:33: 00:00 mg total) Me dical 27 :00 by mouth Center every 6 (six) hours as needed for Pain. traMADoL 2022-0 2022- No 50mg Take [address] [facility] (ULTRAM) 50 4-10 04-10 tablet (50 [facility] mg tablet 09:33: 00:00 mg total) Me dical 27 :00 by mouth Center every 6 (six) hours as needed for Pain. traMADoL 2022-2022- No 50mg Take [address] [facility] (ULTRAM) 50 4-10 04-10 tablet (50 [facility] mg tablet 09:33: 00:00 mg total) Me dical 27 :00 by mouth Center every 6 (six) hours as needed for Pain. metoclopram 2022-2022- No 10mg Take [address] [facility] miracle HCl 4-10 04-10 tablet (10 [facility] (REGLAN) 10 09:32: 00:00 mg total) Medical MG tablet 08 :00 by mouth 4 Cent er (four) times daily as needed for Nausea. metoclopram 2022-2022- No 10mg Take [address] [facility] miracle HCl 4-10 04-10 tablet (10 [facility] (REGLAN) 10 09:32: 00:00 mg total) Medical MG tablet 08 :00 by mouth 4 Cent er (four) times daily as needed for Nausea. metoclopram 2022-2022- No 10mg Take [address] [facility] miracle HCl 4-10 04-10 tablet (10 [facility] (REGLAN) 10 09:32: 00:00 mg total) Medical MG tablet 08 :00 by mouth 4 Cent er (four) times daily as needed for Nausea. metoclopram 2022-2022- No 10mg Take [address] [facility] miracle HCl 4-10 04-10 tablet (10 [facility] (REGLAN) 10 09:32: 00:00 mg total) Medical MG tablet 08 :00 by mouth 4 Cent er (four) times daily as needed for Nausea. clopidogreL 2023-0 Yes [id number] 75mg Take 1 [facility] 75 mg 4-06 tablet by [facility] of tablet 00:00: mouth in [place] 00 the Medical morning. Branch furosemide 3-0 Yes [id number] 20mg Take 1 [facility] (LASIX) 20 4-06 tablet by ity of mg tablet 00:00: mouth in [facility] 00 the Medical morning. Branch spironolact 2023-0 Yes [id number] 50mg Take 1 [facility] one 4-06 tablet by ity of (ALDACTONE) 00:00: mouth in [place] 50 mg 00 the Medical tablet morning. Branch clopidogreL 3-0 Yes [id number] 75mg Take 1 [facility] 75 mg 4-06 tablet by ity of tablet 00:00: mouth in [place] [address] the Medical morning. Branch furosemide 3-0 Yes [id number] 20mg Take 1 [facility] (LASIX) 20 4-06 tablet by ity of mg tablet 00:00: mouth in [facility] 00 the Medical morning. Branch spironolact 3-0 Yes [id number] 50mg Take 1 [facility] one 4-06 tablet by ity of (ALDACTONE) 00:00: mouth [place] 50 mg 00 the Medical tablet morning. Branch clopidogreL 3-0 Yes [id number] 75mg Take 1 [facility] 75 mg 4-06 tablet by ity of tablet 00:00: mouth in [place] 00 the Medical morning. Branch furosemide 3-0 Yes [id number] 20mg Take 1 [facility] (LASIX) 20 4-06 tablet by ity of mg tablet 00:00: mouth in [facility] 00 the Medical morning. Branch spironolact 3-0 Yes [id number] 50mg Take 1 [facility] one 4-06 tablet by ity of (ALDACTONE) 00:00: mouth in [place] 50 mg 00 the Medical tablet morning. Branch clopidogreL 3-0 Yes [id number] 75mg Take 1 [facility] 75 mg 4-06 tablet by ity of tablet 00:00: mouth in [place] 00 the Medical morning. Branch furosemide 2023-0 Yes [id number] 20mg Take 1 [facility] (LASIX) 20 4-06 tablet by [facility] of mg tablet 00:00: [place] 00 the Medical morning. Branch spironolact 2023-0 Yes [id number] 50mg Take 1 [facility] one 4-06 tablet by ity of (ALDACTONE) 00:00: mouth in [place] 50 mg 00 the Medical tablet morning. Branch clopidogreL 2023-0 Yes [id number] 75mg Take 1 [facility] 75 mg 4-06 tablet by ity of tablet 00:00: mouth in [place] 00 the Medical morning. Branch furosemide 2023-0 Yes [id number] 20mg Take 1 [facility] (LASIX) 20 4-06 tablet by [facility] of mg tablet 00:00: [place] 00 the Medical morning. Branch spironolact 2023-0 Yes [id number] 50mg Take 1 [facility] one 4-06 tablet by ity of (ALDACTONE) 00:00: mouth in [place] 50 mg 00 the Medical tablet morning. Branch clopidogreL 2023-0 Yes [id number] 75mg Take 1 [facility] 75 mg 4-06 tablet by ity of tablet 00:00: mouth in [place] 00 the Medical morning. Branch furosemide 2023-0 Yes [id number] 20mg Take 1 [facility] (LASIX) 20 4-06 tablet by ity of mg tablet 00:00: mouth in [facility] 00 the Medical morning. Branch spironolact 2023-0 Yes [id number] 50mg Take 1 [facility] one 4-06 tablet by ity of (ALDACTONE) 00:00: mouth in [place] 50 mg 00 the Medical tablet morning. Branch clopidogreL 2023-0 Yes [id number] 75mg Take 1 [facility] 75 mg 4-06 tablet by ity of tablet 00:00: mouth in [place] 00 the Medical morning. Branch clopidogreL 2023-0 Yes [id number] 75mg Take 1 [facility] 75 mg 4-06 tablet by ity of tablet 00:00: mouth in [place] 00 the Medical morning. Branch clopidogreL 2023-0 Yes [id number] 75mg Take 1 [facility] 75 mg 4-06 tablet by ity of tablet 00:00: mouth in [place] 00 the Medical morning. Branch clopidogreL 2023-0 Yes [id number] 75mg Take 1 [facility] 75 mg 4-06 tablet by ity of tablet 00:00: mouth in [place] 00 the Medical morning. Branch clopidogreL 2023-0 Yes [id number] 75mg Take 1 [facility] 75 mg 4-06 tablet by ity of tablet 00:00: mouth in [place] 00 the Medical morning. Branch clopidogreL 2022-0 Yes [id number] 75mg Take 1 [facility] 75 mg 4-06 tablet by ity of tablet 00:00: mouth in [place] 00 the Medical morning. Branch furosemide 2022-0 2023- No [id number] 20mg Take 1 [facility] (LASIX) 20 4-03 24-24 tablet by ity of mg tablet 00:00: 00:00 mouth in [place] 00 :00 the Medical morning. Branch spironolact 2022-0 2022- No [id number] 50mg Take 1 [facility] one 4-03 24-24 tablet by ity of (ALDACTONE) 00:00: 00:00 mouth in [place] 50 mg 00 :00 the Medical tablet morning. Branch Blood-Gluco 2022-0 Yes [id number] Use as [facility] se 3-29 directed ity of Transmitter 00:00: [place] (DEXCOM G6 00 Medical TRANSMITTER Branch ) [place] Blood-Gluco 2022-0 Yes [id number] Use as [facility] se Sensor 3-29 directed ity of (DEXCOM G6 00:00: [place] SENSOR) 00 Medical [place] [facility] Insulin 2022-0 Yes [id number] 54U inject 54 U nivers Lispro, 3-29 Units ity of Human, 00:00: under the [place] (HUMALOG 00 skin in Medical U-100 the Branch INSULIN) morning. 100 unit/mL cartridge Blood-Gluco 2022-0 Yes [id number] Use as [facility] se 3-29 directed ity of Transmitter 00:00: [place] (DEXCOM G6 00 Medical TRANSMITTER Branch ) [place] Blood-Gluco 2022-0 Yes [id number] Use as [facility] se Sensor 3-29 directed ity of (DEXCOM G6 00:00: [place] SENSOR) 00 Medical [place] [facility] Insulin 2022-0 Yes [id number] 54U inject 54 U nivers Lispro, 3-29 Units ity of Human, 00:00: under the [place] (HUMALOG 00 skin in Medical U-100 the Branch INSULIN) morning. 100 unit/mL cartridge Blood-Gluco 2022-0 Yes [id number] Use as [facility] se 3-29 directed ity of Transmitter 00:00: [place] (DEXCOM G6 00 Medical TRANSMITTER Branch ) [place] Blood-Gluco 2022-0 Yes [id number] Use as Univers se Sensor 3-29 directed ity of (DEXCOM G6 00:00: [place] SENSOR) 00 Medical [place] [facility] Insulin 2022-0 Yes [id number] 54U inject 54 U nivers Lispro, 3-29 Units ity of Human, 00:00: under the [place] (HUMALOG 00 skin in Medical U-100 the Branch INSULIN) morning. 100 unit/mL cartridge Blood-Gluco 2023-0 Yes [id number] Use as [facility] se 3-29 directed ity of Transmitter 00:00: [place] (DEXCOM G6 00 Medical TRANSMITTER Branch ) [place] Blood-Gluco 2023-0 Yes [id number] Use as [facility] se Sensor 3-29 directed ity of (DEXCOM G6 00:00: [place] SENSOR) 00 Medical [place] [facility] Insulin 2022-0 Yes [id number] 54U inject 54 U nivers Lispro, 3-29 Units ity of Human, 00:00: under the [place] (HUMALOG 00 skin in Medical U-100 the Branch INSULIN) morning. 100 unit/mL cartridge Blood-Gluco 3-0 Yes [id number] Use as [facility] se 3-29 directed ity of Transmitter 00:00: [place] (DEXCOM G6 00 Medical TRANSMITTER Branch ) [place] Blood-Gluco 3-0 Yes [id number] Use as Univers se Sensor 3-29 directed ity of (DEXCOM G6 00:00: [place] SENSOR) 00 Medical [place] [facility] Insulin 2022-0 Yes [id number] 54U inject 54 U nivers Lispro, 3-29 Units ity of Human, 00:00: under the [place] (HUMALOG 00 skin in Medical U-100 the Branch INSULIN) morning. 100 unit/mL cartridge Blood-Gluco 3-0 Yes [id number] Use as [facility] se 3-29 directed ity of Transmitter 00:00: [place] (DEXCOM G6 00 Medical TRANSMITTER Branch ) [place] Blood-Gluco 2023-0 Yes [id number] Use as [facility] se Sensor 3-29 directed ity of (DEXCOM G6 00:00: [place] SENSOR) 00 Medical [place] [facility] Insulin 3-0 Yes [id number] 54U inject 54 U nivers Lispro, 3-29 Units ity of Human, 00:00: under the [place] (HUMALOG 00 skin in Medical U-100 the Branch INSULIN) morning. 100 unit/mL cartridge Blood-Gluco 2023-0 Yes [id number] Use as [facility] se 3-29 directed ity of Transmitter 00:00: [place] (DEXCOM G6 00 Medical TRANSMITTER Branch ) [place] Blood-Gluco 2023-0 Yes [id number] Use as Univers se Sensor 3-29 directed ity of (DEXCOM G6 00:00: [place] SENSOR) 00 Medical [place] [facility] Insulin 3-0 Yes [id number] 54U inject 54 U nivers Lispro, 3-29 Units ity of Human, 00:00: under the [place] (HUMALOG 00 skin in Medical U-100 the Branch INSULIN) morning. 100 unit/mL cartridge Blood-Gluco 2023-0 Yes [id number] Use as [facility] se 3-29 directed ity of Transmitter 00:00: [place] (DEXCOM G6 00 Medical TRANSMITTER Branch ) [place] Blood-Gluco 2023-0 Yes [id number] Use as [facility] se Sensor 3-29 directed ity of (DEXCOM G6 00:00: [place] SENSOR) 00 Medical [place] [facility] Insulin 3-0 Yes [id number] 54U inject 54 U nivers Lispro, 3-29 Units ity of Human, 00:00: under the [place] (HUMALOG 00 skin in Medical U-100 the Branch INSULIN) morning. 100 unit/mL cartridge Blood-Gluco 3-0 Yes [id number] Use as [facility] se 3-29 directed ity of Transmitter 00:00: [place] (DEXCOM G6 00 Medical TRANSMITTER Branch ) [place] Blood-Gluco 2023-0 Yes [id number] Use as [facility] se Sensor 3-29 directed ity of (DEXCOM G6 00:00: [place] SENSOR) 00 Medical [place] [facility] Insulin 3-0 Yes [id number] 54U inject 54 U nivers Lispro, 3-29 Units ity of Human, 00:00: under the [place] (HUMALOG 00 skin in Medical U-100 the Branch INSULIN) morning. 100 unit/mL cartridge Blood-Gluco 2023-0 Yes [id number] Use as [facility] se 3-29 directed ity of Transmitter 00:00: [place] (DEXCOM G6 00 Medical TRANSMITTER Branch ) [place] Blood-Gluco 2023-0 Yes [id number] Use as Univers se Sensor 3-29 directed ity of (DEXCOM G6 00:00: [place] SENSOR) 00 Medical [place] [facility] Insulin 2023-0 Yes [id number] 54U inject 54 U nivers Lispro, 3-29 Units ity of Human, 00:00: under the [place] (HUMALOG 00 skin in Medical U-100 the Branch INSULIN) morning. 100 unit/mL cartridge Blood-Gluco 2023-0 Yes [id number] Use as [facility] se 3-29 directed ity of Transmitter 00:00: [place] (DEXCOM G6 00 Medical TRANSMITTER Branch ) [place] Blood-Gluco 3-0 Yes [id number] Use as Univers se Sensor 3-29 directed ity of (DEXCOM G6 00:00: [place] SENSOR) 00 Medical [place] [facility] Insulin 3-0 Yes [id number] 54U inject 54 U nivers Lispro, 3-29 Units ity of Human, 00:00: under the [place] (HUMALOG 00 skin in Medical U-100 the Branch INSULIN) morning. 100 unit/mL cartridge Blood-Gluco 3-0 Yes [id number] Use as [facility] se 3-29 directed ity of Transmitter 00:00: [place] (DEXCOM G6 00 Medical TRANSMITTER Branch ) [place] Blood-Gluco 3-0 Yes [id number] Use as Univers se Sensor 3-29 directed ity of (DEXCOM G6 00:00: [place] SENSOR) 00 Medical [place] [facility] Insulin 2022-0 Yes [id number] 54U inject 54 U nivers Lispro, 3-29 Units ity of Human, 00:00: under the [place] (HUMALOG 00 skin in Medical U-100 the Branch INSULIN) morning. 100 unit/mL cartridge Blood-Gluco 3-0 Yes [id number] Use as [facility] se 3-29 directed ity of Transmitter 00:00: [place] (DEXCOM G6 00 Medical TRANSMITTER Branch ) [place] Blood-Gluco 3-0 Yes [id number] Use as [facility] se Sensor 3-29 directed ity of (DEXCOM G6 00:00: [place] SENSOR) 00 Medical [place] [facility] Insulin 2022-0 Yes [id number] 54U inject 54 U nivers Lispro, 3-29 Units ity of Human, 00:00: under the [place] (HUMALOG 00 skin in Medical U-100 the Branch INSULIN) morning. 100 unit/mL cartridge Blood-Gluco 2023-0 Yes [id number] Use as [facility] se 3-29 directed ity of Transmitter 00:00: [place] (DEXCOM G6 00 Medical TRANSMITTER Branch ) [place] Blood-Gluco 2023-0 Yes [id number] Use as Univers se Sensor 3-29 directed ity of (DEXCOM G6 00:00: [place] SENSOR) 00 Medical [place] [facility] Insulin 3-0 Yes [id number] 54U inject 54 U nivers Lispro, 3-29 Units ity of Human, 00:00: under the [place] (HUMALOG 00 skin in Medical U-100 the [place] INSULIN) morning. 100 unit/mL cartridge dapaglifloz 2023-0 Yes [id number] TAKE 1 [facility] in 3-27 TABLET BY ity of (XI) 00:00: MOUTH [place] 10 mg 00 EVERY DAY Medical tablet IN THE Branch MORNING dapaglifloz 2023-0 Yes [id number] TAKE 1 [facility] in 3-27 TABLET BY ity of () 00:00: MOUTH [place] 10 mg 00 EVERY DAY Medical tablet IN THE Branch MORNING dapaglifloz 2023-0 Yes [id number] TAKE 1 [facility] in 3-27 TABLET BY ity of () 00:00: MOUTH [place] 10 mg 00 EVERY DAY Medical tablet IN THE Branch MORNING dapaglifloz 2023-0 Yes [id number] TAKE 1 [facility] in 3-27 TABLET BY ity of () 00:00: MOUTH [place] 10 mg 00 EVERY DAY Medical tablet IN THE Branch MORNING dapaglifloz 2023-0 Yes [id number] TAKE 1 [facility] in 3-27 TABLET BY ity of () 00:00: MOUTH [place] 10 mg 00 EVERY DAY Medical tablet IN THE Branch MORNING dapaglifloz 2023-0 Yes [id number] TAKE 1 [facility] in 3-27 TABLET BY ity of () 00:00: MOUTH [place] 10 mg 00 EVERY DAY Medical tablet IN THE Branch MORNING dapaglifloz 2023-0 Yes [id number] TAKE 1 [facility] in 3-27 TABLET BY ity of () 00:00: MOUTH [place] 10 mg 00 EVERY DAY Medical tablet IN THE Branch MORNING dapaglifloz 2023-0 Yes [id number] TAKE 1 [facility] in 3-27 TABLET BY ity of () 00:00: MOUTH [place] 10 mg 00 EVERY DAY Medical tablet IN THE Branch MORNING dapaglifloz 2023-0 Yes [id number] TAKE 1 [facility] in 3-27 TABLET BY ity of () 00:00: MOUTH [place] 10 mg 00 EVERY DAY Medical tablet IN THE Branch MORNING dapaglifloz 2023-0 Yes [id number] TAKE 1 [facility] in 3-27 TABLET BY ity of () 00:00: MOUTH [place] 10 mg 00 EVERY DAY Medical tablet IN THE Branch MORNING dapaglifloz 2023-0 Yes [id number] TAKE 1 [facility] in 3-27 TABLET BY ity of ([facility]) 00:00: MOUTH [place] 10 mg 00 EVERY DAY Medical tablet IN THE Branch MORNING dapaglifloz 2023-0 Yes [id number] TAKE 1 [facility] in 3-27 TABLET BY ity of ([facility]) 00:00: MOUTH [place] 10 mg 00 EVERY DAY Medical tablet IN THE Branch MORNING dapaglifloz 2023-0 Yes [id number] TAKE 1 [facility] in 3-27 TABLET BY ity of ([facility]) 00:00: MOUTH [place] 10 mg 00 EVERY DAY Medical tablet IN THE Branch MORNING dapaglifloz 2023-0 Yes [id number] TAKE 1 [facility] in 3-27 TABLET BY ity of ([facility]) 00:00: MOUTH [place] 10 mg 00 EVERY DAY Medical tablet IN THE [place] MORNING omeprazole 3-0 Yes 20mg Q.5D Take [facility]PriLOSEC[facility]-21 [facility] 20 MG 13:08: (20 mg Medical capsule 53 total) by Center mouth in the morning and 1 capsule (20 mg total) before bedtime. meclizine 2023-0 Yes 25mg Take [address] [facility] (ANTIVERT) 3-21 tablet (25 [place] [facility] 25 MG 13:08: mg total) Medical tablet 53 by mouth 3 Center (three) times daily as needed for Dizziness. gabapentin 2023-0 Yes 100mg Q.[id number] Take [address] [facility] (NEURONTIN) 3-21 [id number] capsule [facility] 100 MG 13:08: 3D (100 mg Medical capsule 53 total) by Center mouth in the morning and 1 capsule (100 mg total) at noon and 1 capsule (100 mg total) in the evening. lipase/prot 2023-0 Yes Take by [facility] ease/amylas 3-21 mouth [facility] (CREON 13:08: 6,000 TID Medi vidal ORAL) 53 . Center metoclopram 2023-0 Yes 10mg Take [address] [facility] miracle HCl 3-21 tablet (10 [facility] (REGLAN) 10 13:08: mg total) M edical MG tablet 53 by mouth 4 Cent er (four) times daily as needed for Nausea. promethazin 2023-0 Yes 25mg Take [address] [facility] e 3-21 tablet (25 [facility] (PHENERGAN) 13:08: mg total) M edical 25 MG 53 by mouth Center tablet every night as needed for Nausea. b complex 2022-0 Yes 1{tbl} QD Take [address] [facility] vitamins 3-21 tablet by [facility] tablet 13:08: mouth in Medical 53 the Center morning. docusate 2022-0 Yes 100mg Take [address] [facility] sodium 3-21 capsule [facility] (COLACE) 13:08: (100 mg Medica l 100 MG 53 total) by Center capsule mouth 2 (two) times daily as needed for Constipati on. traMADoL 2022-0 Yes 50mg Take [address] [facility] (ULTRAM) 50 3-21 tablet (50 [facility] kes mg tablet 13:08: mg total) Med ical 53 by mouth Center every 6 (six) hours as needed for Pain. metFORMIN 2022-0 Yes 500mg Take 1 [facility] (GLUCOPHAGE 3-21 tablet [facility] ) 500 MG 13:08: (500 mg Medica l tablet 53 total) by Center mouth 2 (two) times daily with breakfast and dinner. insulin [address] [facility] lispro 3-21 subcutaneo [facility] (HumaLOG) 13:08: usly in Medic al 100 unit/mL 53 the Center injection morning. ranitidine 0 Yes 20mg Take [address] HCl (ZANTAC 3-21 by mouth. [place] [facility] ORAL) 13:08: Medical 53 Center gabapentin 2022-0 Yes 200mg Take 200 [facility] (NEURONTIN) 3-15 mg by [place] 100 MG 10:34: mouth 3 of capsule 52 times Medicin daily. e hydrOXYzine 2022-0 Yes 25mg Take 25 mg Rg (ATARAX) 25 3-15 by mouth [place] [facility] MG tablet 10:34: daily. of 52 Medicin e meclizine 2022-0 Yes 25mg Take 25 mg [facility] (ANTIVERT) 3-15 by mouth [facility] 25 MG 10:34: daily. of tablet 52 Medicin e Melatonin 2022-0 Yes 10mg Take 10 mg [facility] 10-10 MG 3-15 by mouth [facility] TBCR 10:34: two times of 52 daily. Medicin e metformin 2022-0 Yes 1000mg Take 1,000 [facility] (GLUCOPHAGE 3-15 mg by [place] ) 1000 MG 10:34: mouth 2 of tablet 52 times Medicin daily e (with meals). Metoclopram 0 Yes 1{tbl} Take 1 [facility] miracle HCl 10 3-15 Tablet by [place] MG TBDP 10:34: mouth 3 of 52 times Medicin daily. e Thiamine 2022-0 Yes 1{tbl} Take 1 [facility] HCl 3-15 Tablet by [place] (VITAMIN 10:34: mouth of B-1) 250 MG 52 daily. Medici n TABS e carvedilol Yes 12.5mg Take 12.5 Rg (COREG) 3-15 mg by [place] 12.5 MG 10:34: mouth 2 of tablet 52 times Medicin daily e (with meals). clopidogrel 0 Yes 75mg Take 75 mg [facility] (PLAVIX) 75 3-15 by mouth [place] MG Tablet 10:34: daily. of 52 Medicin e Pancrelipas Yes 600mg Take 600 [facility], 3-15 mg by [place] Lip-Prot-Am 10:34: mouth 3 of yl, (CREON) 52 times Medicin [id number] daily. e units CPEP DULoxetine Yes 40mg Take 40 mg [facility] HCl 40 MG 3-15 by mouth [facility] CPEP 10:34: two times of 52 daily. Medicin e Docusate Yes 100mg Take 100 [facility] Sodium 100 3-15 mg by [place] MG TABS 10:34: mouth two of 52 times Medicin daily. e doxepin Yes 10mg Take 10 mg [facility] (SINEQUAN) 3-15 by mouth Colle [facility] 10 MG 10:34: nightly. of capsule 52 Medicin e Erythromyci 0 Yes 1{tbl} Take 1 [facility] 250 MG 3-15 Tablet by [place] e TBEC 10:34: mouth four of 52 times Medicin daily. e 0 Yes 1{tbl} Take 1 [facility] Vit-Fe 3-15 Tablet by [place] Fumarate-FA 10:34: mouth of (M-VIT OR) 52 daily. Medicin e Omeprazole 0 Yes 20mg Take 20 mg [facility] 20 MG TBEC 3-15 by mouth [facility] ge 10:34: two times of 52 daily. Medicin e promethazin 2022-0 Yes 25mg Take 25 mg Rg e 3-15 by mouth [place] (PHENERGAN) 10:34: every 6 of 25 MG 52 hours as Medicin tablet needed for e Nausea. rifAXIMin 2022-0 Yes 550mg Take 550 [facility] 550 MG TABS 3-15 mg by [place] 10:34: mouth two of 52 times Medicin daily. e Rosuvastati 2022-0 Yes 20mg Take 20 mg Rg n Calcium 3-15 by mouth [facility] e 20 MG CPSP 10:34: daily. of 52 Medicin e spironolact 2022-0 Yes 100mg Take 100 [facility] one 3-15 mg by [place] (ALDACTONE) 10:34: mouth of 100 MG 52 daily. Medicin tablet e metoclopram 2022-0 Yes 10mg Take 10 mg [facility] miracle 3-15 by mouth [place] (REGLAN) 10 10:34: two times o f MG tablet 52 daily. Medicin e raNITIdine 2022-0 Yes 20mg Take 20 mg [facility] HCl (ZANTAC 3-15 by mouth [place] 75 OR) 10:34: daily. of 52 Medicin e Ferrous 2022-0 Yes 325mg Take 325 [facility] Fumarate 3-15 mg by [place] 325 (106 10:34: mouth of Fe) MG TABS 52 daily. Medici n e folic acid 2022-0 Yes 1mg Take 1 mg [facility] (FOLVITE) 1 3-15 by mouth [place] MG tablet 10:34: daily. of 52 Medicin e clopidogreL 2022-0 Yes [id number] 75mg Take 1 [facility] 75 mg 3-09 tablet by ity of tablet 00:00: mouth in [place] 00 the Medical morning. Branch furosemide 3-0 Yes [id number] 20mg Take 1 [facility] (LASIX) 20 3-09 tablet by ity of mg tablet 00:00: mouth in [place] 00 the Medical morning. Branch spironolact 2022-0 Yes [id number] 50mg Take 1 [facility] one 3-09 tablet by ity of (ALDACTONE) 00:00: mouth in [place] 50 mg 00 the Medical tablet morning. Branch rifAXIMin 2022-0 Yes [id number] 550mg Take 1 [facility] (XIFAXAN) 3-09 tablet by ity o f 550 mg 00:00: mouth in [place] tablet 00 the Medical morning Branch and 1 tablet in the evening. Continue refills with Hepatology carvediloL 3-0 Yes [id number] 25mg Take 1 U nivers 25 mg 3-09 tablet by ity of tablet 00:00: mouth in [place] 00 the Medical morning Branch and 1 tablet in the evening. Take with meals. clopidogreL 3-0 Yes [id number] 75mg Take 1 [facility] 75 mg 3-09 tablet by ity of tablet 00:00: mouth in [place] 00 the Medical morning. Branch furosemide 3-0 Yes [id number] 20mg Take 1 [facility] (LASIX) 20 3-09 tablet by ity of mg tablet 00:00: mouth in [facility] s 00 the Medical morning. Branch spironolact 2022-0 Yes [id number] 50mg Take 1 [facility] one 3-09 tablet by ity of (ALDACTONE) 00:00: mouth in [place] 50 mg 00 the Medical tablet morning. Branch rifAXIMin 2022-0 Yes [id number] 550mg Take 1 [facility] (XIFAXAN) 3-09 tablet by ity o f 550 mg 00:00: mouth in [place] tablet 00 the Medical morning Branch and 1 tablet in the evening. Continue refills with Hepatology carvediloL 2022-0 Yes [id number] 25mg Take 1 U nivers 25 mg 3-09 tablet by ity of tablet 00:00: mouth in [place] the Medical morning Branch and 1 tablet in the evening. Take with meals. clopidogreL 3-0 Yes [id number] 75mg Take 1 [facility] 75 mg 3-09 tablet by ity of tablet 00:00: mouth in [place] 00 the Medical morning. Branch furosemide 3-0 Yes [id number] 20mg Take 1 [facility] (LASIX) 20 3-09 tablet by ity of mg tablet 00:00: mouth [place] 00 the Medical morning. Branch spironolact 3-0 Yes [id number] 50mg Take 1 [facility] one 3-09 tablet by ity of (ALDACTONE) 00:00: mouth in [place] 50 mg 00 the Medical tablet morning. Branch rifAXIMin 3-0 Yes [id number] 550mg Take 1 [facility] (XIFAXAN) 3-09 tablet by ity o f 550 mg 00:00: mouth in [place] tablet 00 the Medical morning Branch and 1 tablet in the evening. Continue refills with Hepatology carvediloL 2022-0 Yes [id number] 25mg Take 1 U nivers 25 mg 3-09 tablet by ity of tablet 00:00: mouth in [place] 00 the Medical morning Branch and 1 tablet in the evening. Take with meals. clopidogreL 2022-0 Yes [id number] 75mg Take 1 [facility] 75 mg 3-09 tablet by ity of tablet 00:00: mouth in [place] 00 the Medical morning. Branch furosemide 2022-0 Yes [id number] 20mg Take 1 [facility] (LASIX) 20 3-09 tablet by ity of mg tablet 00:00: mouth in [facility] s 00 the Medical morning. Branch spironolact 2022-0 Yes [id number] 50mg Take 1 [facility] one 3-09 tablet by ity of (ALDACTONE) 00:00: mouth in [place] 50 mg 00 the Medical tablet morning. Branch rifAXIMin 2022-0 Yes [id number] 550mg Take 1 [facility] (XIFAXAN) 3-09 tablet by ity o f 550 mg 00:00: mouth in [place] tablet 00 the Medical morning Branch and 1 tablet in the evening. Continue refills with Hepatology carvediloL 2022-0 Yes [id number] 25mg Take 1 U nivers 25 mg 3-09 tablet by ity of tablet 00:00: mouth in [place] 00 the Medical morning Branch and 1 tablet in the evening. Take with meals. clopidogreL 3-0 Yes [id number] 75mg Take 1 [facility] 75 mg 3-09 tablet by ity of tablet 00:00: mouth in [place] 00 the Medical morning. Branch furosemide 3-0 Yes [id number] 20mg Take 1 [facility] (LASIX) 20 3-09 tablet by ity of mg tablet 00:00: mouth [place] 00 the Medical morning. Branch spironolact 3-0 Yes [id number] 50mg Take 1 [facility] one 3-09 tablet by ity of (ALDACTONE) 00:00: mouth in [place] 50 mg 00 the Medical tablet morning. Branch rifAXIMin 3-0 Yes [id number] 550mg Take 1 [facility] (XIFAXAN) 3-09 tablet by ity o f 550 mg 00:00: mouth in [place] tablet 00 the Medical morning Branch and 1 tablet in the evening. Continue refills with Hepatology carvediloL 3-0 Yes [id number] 25mg Take 1 U nivers 25 mg 3-09 tablet by ity of tablet 00:00: mouth in [place] 00 the Medical morning Branch and 1 tablet in the evening. Take with meals. clopidogreL 3-0 Yes [id number] 75mg Take 1 [facility] 75 mg 3-09 tablet by it[facility] of tablet 00:00: mouth in [place] 00 the Medical morning. Branch furosemide 3-0 Yes [id number] 20mg Take 1 [facility] (LASIX) 20 3-09 tablet by ity of mg tablet 00:00: mouth in [facility] 00 the Medical morning. Branch spironolact 3-0 Yes [id number] 50mg Take 1 [facility] one 3-09 tablet by ity of (ALDACTONE) 00:00: mouth in [place] 50 mg 00 the Medical tablet morning. Branch rifAXIMin 2022-0 Yes [id number] 550mg Take 1 [facility] (XIFAXAN) 3-09 tablet by ity o f 550 mg 00:00: mouth in [place] tablet 00 the Medical morning Branch and 1 tablet in the evening. Continue refills with Hepatology carvediloL 2022-0 Yes [id number] 25mg Take 1 [facility] n[facility] 25 mg 3-09 tablet by ity of tablet 00:00: mouth in [place] 00 the Medical morning Branch and 1 tablet in the evening. Take with meals. clopidogreL 3-0 Yes [id number] 75mg Take 1 [facility] 75 mg 3-09 tablet by ity of tablet 00:00: mouth in [place] 00 the Medical morning. Branch furosemide 3-0 Yes [id number] 20mg Take 1 [facility] (LASIX) 20 3-09 tablet by ity of mg tablet 00:00: mouth in [facility] 00 the Medical morning. Branch spironolact 3-0 Yes [id number] 50mg Take 1 [facility] one 3-09 tablet by ity of (ALDACTONE) 00:00: mouth in [place] 50 mg 00 the Medical tablet morning. Branch rifAXIMin 3-0 Yes [id number] 550mg Take 1 [facility] (XIFAXAN) 3-09 tablet by ity o f 550 mg 00:00: mouth in [place] tablet 00 the Medical morning Branch and 1 tablet in the evening. Continue refills with Hepatology carvediloL 2022-0 Yes [id number] 25mg Take 1 [facility] nivers 25 mg 3-09 tablet by ity of tablet 00:00: mouth in [place] 00 the Medical morning Branch and 1 tablet in the evening. Take with meals. clopidogreL 2022-0 Yes [id number] 75mg Take 1 [facility] 75 mg 3-09 tablet by ity of tablet 00:00: mouth in [place] 00 the Medical morning. Branch furosemide 2022-0 Yes [id number] 20mg Take 1 [facility] (LASIX) 20 3-09 tablet by it[facility] mg tablet 00:00: [facility]. Branch spironolact 2022-0 Yes [id number] 50mg Take 1 [facility] one 3-09 tablet by ity of (ALDACTONE) 00:00: mouth in [place] 50 mg 00 the Medical tablet morning. Branch rifAXIMin 2022-0 Yes [id number] 550mg Take 1 [facility] (XIFAXAN) 3-09 tablet by ity o f 550 mg 00:00: mouth in [place] tablet 00 the Medical morning Branch and 1 tablet in the evening. Continue refills with Hepatology carvediloL 2022-0 Yes [id number] 25mg Take 1 [facility] nivers 25 mg 3-09 tablet by ity of tablet 00:00: mouth in [place] 00 the Medical morning Branch and 1 tablet in the evening. Take with meals. rifAXIMin 2022-0 Yes [id number] 550mg Take 1 [facility] (XIFAXAN) 3-09 tablet by ity o f 550 mg 00:00: mouth in [place] tablet 00 the Medical morning Branch and 1 tablet in the evening. Continue refills with Hepatology carvediloL 2022-0 Yes [id number] 25mg Take 1 [facility] nivers 25 mg 3-09 tablet by ity of tablet 00:00: mouth in [place] 00 the Medical morning Branch and 1 tablet in the evening. Take with meals. rifAXIMin 2022-0 Yes [id number] 550mg Take 1 [facility] (XIFAXAN) 3-09 tablet by ity o f 550 mg 00:00: mouth in [place] tablet 00 the Medical morning Branch and 1 tablet in the evening. Continue refills with Hepatology carvediloL 3-0 Yes [id number] 25mg Take 1 [facility] nivers 25 mg 3-09 tablet by ity of tablet 00:00: mouth in [place] 00 the Medical morning Branch and 1 tablet in the evening. Take with meals. rifAXIMin 2023-0 Yes [id number] 550mg Take 1 [facility] (XIFAXAN) 3-09 tablet by ity o f 550 mg 00:00: mouth in [place] tablet 00 the Medical morning Branch and 1 tablet in the evening. Continue refills with Hepatology carvediloL 2022-0 Yes [id number] 25mg Take 1 [facility] nivers 25 mg 3-09 tablet by ity of tablet 00:00: mouth in [place] 00 the Medical morning Branch and 1 tablet in the evening. Take with meals. rifAXIMin 3-0 Yes [id number] 550mg Take 1 [facility] (XIFAXAN) 3-09 tablet by ity o f 550 mg 00:00: mouth in [place] tablet 00 the Medical morning Branch and 1 tablet in the evening. Continue refills with Hepatology carvediloL 3-0 Yes [id number] 25mg Take 1 [facility] nivers 25 mg 3-09 tablet by ity of tablet 00:00: mouth in [place] 00 the Medical morning Branch and 1 tablet in the evening. Take with meals. rifAXIMin 3-0 Yes [id number] 550mg Take 1 [facility] (XIFAXAN) 3-09 tablet by ity o f 550 mg 00:00: mouth in [place] tablet 00 the Medical morning Branch and 1 tablet in the evening. Continue refills with Hepatology carvediloL 3-0 Yes [id number] 25mg Take 1 [facility] nivers 25 mg 3-09 tablet by ity of tablet 00:00: mouth in [place] 00 the Medical morning Branch and 1 tablet in the evening. Take with meals. rifAXIMin 2023-0 Yes [id number] 550mg Take 1 [facility] (XIFAXAN) 3-09 tablet by ity o f 550 mg 00:00: mouth in [place] tablet 00 the Medical morning Branch and 1 tablet in the evening. Continue refills with Hepatology carvediloL 2023-0 Yes [id number] 25mg Take 1 [facility] nivers 25 mg 3-09 tablet by ity of tablet 00:00: mouth in [place] 00 the Medical morning Branch and 1 tablet in the evening. Take with meals. rifAXIMin 2023-0 Yes [id number] 550mg Take 1 [facility] (XIFAXAN) 3-09 tablet by ity o f 550 mg 00:00: mouth in [place] tablet 00 the Medical morning Branch and 1 tablet in the evening. Continue refills with Hepatology carvediloL 2023-0 Yes [id number] 25mg Take 1 [facility] nivers 25 mg 3-09 tablet by ity of tablet 00:00: mouth in [place] 00 the Medical morning Branch and 1 tablet in the evening. Take with meals. rifAXIMin 2023-0 Yes [id number] 550mg Take 1 [facility] (XIFAXAN) 3-09 tablet by ity o f 550 mg 00:00: mouth in [place] tablet 00 the Medical morning Branch and 1 tablet in the evening. Continue refills with Hepatology carvediloL 3-0 Yes [id number] 25mg Take 1 U nivers 25 mg 3-09 tablet by ity of tablet 00:00: mouth in [place] 00 the [facility] morning [place] and 1 tablet in the evening. Take with meals. rifAXIMin 2023-0 Yes [id number] 550mg Take 1 [facility] (XIFAXAN) 3-09 tablet by ity o f 550 mg 00:00: mouth in [place] tablet 00 the Medical morning Branch and 1 tablet in the evening. Continue refills with Hepatology carvediloL 3-0 Yes [id number] 25mg Take 1 U nivers 25 mg 3-09 tablet by ity of tablet 00:00: mouth in [place] 00 the Medical morning Branch and 1 tablet in the evening. Take with meals. rifAXIMin 2023-0 Yes [id number] 550mg Take 1 [facility] (XIFAXAN) 3-09 tablet by ity o f 550 mg 00:00: mouth in [place] tablet 00 the Medical morning Branch and 1 tablet in the evening. Continue refills with Hepatology carvediloL 2023-0 Yes [id number] 25mg Take 1 [facility] nivers 25 mg 3-09 tablet by ity of tablet 00:00: mouth in [place] 00 the Medical morning Branch and 1 tablet in the evening. Take with meals. rifAXIMin 2023-0 Yes [id number] 550mg Take 1 [facility] (XIFAXAN) 3-09 tablet by ity o f 550 mg 00:00: mouth in [place] tablet 00 the Medical morning Branch and 1 tablet in the evening. Continue refills with Hepatology carvediloL 2022-0 Yes [id number] 25mg Take 1 [facility] nivers 25 mg 3-09 tablet by ity of tablet 00:00: mouth in [place] 00 the Medical morning Branch and 1 tablet in the evening. Take with meals. rifAXIMin 2022-0 Yes [id number] 550mg Take 1 [facility] (XIFAXAN) 3-09 tablet by ity o f 550 mg 00:00: mouth in [place] tablet 00 the Medical morning Branch and 1 tablet in the evening. Continue refills with Hepatology carvediloL 2022-0 Yes [id number] 25mg Take 1 [facility] nivers 25 mg 3-09 tablet by ity of tablet 00:00: mouth in [place] 00 the Medical morning Branch and 1 tablet in the evening. Take with meals. rifAXIMin 2022-0 Yes [id number] 550mg Take 1 [facility] (XIFAXAN) 3-09 tablet by ity o f 550 mg 00:00: mouth in [place] tablet 00 the Medical morning Branch and 1 tablet in the evening. Continue refills with Hepatology carvediloL 2022-0 Yes [id number] 25mg Take 1 [facility] nivers 25 mg 3-09 tablet by ity of tablet 00:00: mouth in [place] 00 the Medical morning Branch and 1 tablet in the evening. Take with meals. clopidogreL 2022-2022- No [id number] 75mg Take 1 [facility] 75 mg 12-27- tablet by ity of tablet 00:00: 00:00 mouth in [place] 00 :00 the Medical morning. Branch furosemide 2022-0 2022- No [id number] 20mg Take 1 [facility] (LASIX) 20 12-27- tablet by ity of mg tablet 00:00: 00:[address] [facility] 00 :00 the Medical morning. Branch spironolact 2022-0 2022- No [id number] 50mg Take 1 [facility] one 12-27 tablet by ity of (ALDACTONE) 00:00: 00:00 mouth in [place] 50 mg 00 :00 the Medical tablet morning. Branch pantoprazol 2022-0 2022- No 40mg Take 1 [facility] vers e 40 mg EC 3-07 03-07 tablet by ity of tablet 09:41: 00:00 mouth in [place] 00 :00 the Medical morning Branch and 1 tablet in the evening. pantoprazol 2023-0 Yes [id number] 40mg Take 1 [facility] e 40 mg EC 3-07 tablet by ity of tablet 00:00: mouth in [place] 00 the Medical morning Branch and 1 tablet in the evening. pantoprazol 2023-0 Yes [id number] 40mg Take 1 [facility] e 40 mg EC 3-07 tablet by ity of tablet 00:00: mouth in [place] 00 the Medical morning Branch and 1 tablet in the evening. pantoprazol 2023-0 Yes [id number] 40mg Take 1 [facility] e 40 mg EC 3-07 tablet by ity of tablet 00:00: mouth in [place] 00 the Medical morning Branch and 1 tablet in the evening. pantoprazol 2023-0 Yes [id number] 40mg Take 1 [facility] e 40 mg EC 3-07 tablet by ity of tablet 00:00: mouth in [place] 00 the Medical morning Branch and 1 tablet in the evening. pantoprazol 2023-0 Yes [id number] 40mg Take 1 [facility] e 40 mg EC 3-07 tablet by ity of tablet 00:00: mouth in [place] 00 the Medical morning Branch and 1 tablet in the evening. pantoprazol 2023-0 Yes [id number] 40mg Take 1 [facility] e 40 mg EC 3-07 tablet by ity of tablet 00:00: mouth in [place] 00 the Medical morning Branch and 1 tablet in the evening. pantoprazol 2023-0 Yes [id number] 40mg Take 1 [facility] e 40 mg EC 3-07 tablet by ity of tablet 00:00: mouth in [place] 00 the Medical morning Branch and 1 tablet in the evening. pantoprazol 2023-0 Yes [id number] 40mg Take 1 [facility] e 40 mg EC 3-07 tablet by ity of tablet 00:00: mouth in [place] [address] the Medical morning Branch and 1 tablet in the evening. pantoprazol 2023-0 Yes [id number] 40mg Take 1 [facility] e 40 mg EC 3-07 tablet by ity of tablet 00:00: mouth in [place] [address] the Medical morning Branch and 1 tablet in the evening. pantoprazol 2023-0 Yes [id number] 40mg Take 1 [facility] e 40 mg EC 3-07 tablet by ity of tablet 00:00: mouth in [place] 00 the Medical morning Branch and 1 tablet in the evening. pantoprazol 2023-0 Yes [id number] 40mg Take 1 [facility] e 40 mg EC 3-07 tablet by ity of tablet 00:00: mouth in [place] 00 the Medical morning Branch and 1 tablet in the evening. pantoprazol 2023-0 Yes [id number] 40mg Take 1 [facility] e 40 mg EC 3-07 tablet by ity of tablet 00:00: mouth in [place] 00 the Medical morning Branch and 1 tablet in the evening. pantoprazol 2023-0 Yes [id number] 40mg Take 1 [facility] e 40 mg EC 3-07 tablet by ity of tablet 00:00: mouth in [place] [address] the Medical morning Branch and 1 tablet in the evening. pantoprazol 2023-0 Yes [id number] 40mg Take 1 [facility] e 40 mg EC 3-07 tablet by ity of tablet 00:00: mouth in [place] [address] the Medical morning Branch and 1 tablet in the evening. pantoprazol 2023-0 Yes [id number] 40mg Take 1 [facility] e 40 mg EC 3-07 tablet by ity of tablet 00:00: mouth in [place] [address] the Medical morning Branch and 1 tablet in the evening. pantoprazol 2023-0 Yes [id number] 40mg Take 1 [facility] e 40 mg EC 3-07 tablet by ity of tablet 00:00: mouth in [place] [address] the Medical morning Branch and 1 tablet in the evening. pantoprazol 2023-0 Yes [id number] 40mg Take 1 [facility] e 40 mg EC 3-07 tablet by ity of tablet 00:00: mouth in [place] [address] the Medical morning Branch and 1 tablet in the evening. pantoprazol 2023-0 Yes [id number] 40mg Take 1 [facility] e 40 mg EC 3-07 tablet by ity of tablet 00:00: mouth in [place] [address] the Medical morning Branch and 1 tablet in the evening. pantoprazol 2023-0 Yes [id number] 40mg Take 1 [facility] e 40 mg EC 3-07 tablet by ity of tablet 00:00: mouth in [place] [address] the Medical morning Branch and 1 tablet in the evening. pantoprazol 2023-0 Yes [id number] 40mg Take 1 [facility] e 40 mg EC 3-07 tablet by ity of tablet 00:00: mouth in [place] 00 the Medical morning Branch and 1 tablet in the evening. pantoprazol 2023-0 Yes [id number] 40mg Take 1 [facility] e 40 mg EC 3-07 tablet by ity of tablet 00:00: mouth in [place] 00 the Medical morning Branch and 1 tablet in the evening. pantoprazol 3-0 Yes [id number] 40mg Take 1 [facility] e 40 mg EC 3-07 tablet by ity of tablet 00:00: mouth in [place] 00 the Medical morning Branch and 1 tablet in the evening. pantoprazol 3-0 Yes [id number] 40mg Take 1 [facility] e 40 mg EC 3-07 tablet by ity of tablet 00:00: mouth in [place] 00 the Medical morning Branch and 1 tablet in the evening. pantoprazol 3-0 Yes [id number] 40mg Take 1 [facility] e 40 mg EC 3-07 tablet by ity of tablet 00:00: mouth in [place] 00 the Medical morning Branch and 1 tablet in the evening. furosemide 2022-0 2022- Yes [id number] 20mg Take 1 [facility] (LASIX) 20 3-06 06-05 tablet by ity of mg tablet 00:00: 04:59 mouth in [place] as 00 :00 the Medical morning Branch for 90 days. spironolact 2022-0 2022- Yes [id number] 50mg Take 1 [facility] one 3-06 06-05 tablet by ity of (ALDACTONE) 00:00: 04:59 mouth in [place] 50 mg 00 :00 the Medical tablet morning Branch for 90 days. furosemide 2022-0 2022- Yes [id number] 20mg Take 1 [facility] (LASIX) 20 3-06 06-05 tablet by ity of mg tablet 00:00: 04:59 mouth in [place] 00 :00 the Medical morning Branch for 90 days. spironolact 2022-0 2022- Yes [id number] 50mg Take 1 [facility] one 3-06 06-05 tablet by ity of (ALDACTONE) 00:00: 04:59 mouth in [place] 50 mg 00 :00 the Medical tablet morning Branch for 90 days. furosemide 2022-0 2022- Yes [id number] 20mg Take 1 [facility] (LASIX) 20 3-06 06-05 tablet by ity of mg tablet 00:00: 04:59 mouth in [place] 00 :00 the Medical morning Branch for 90 days. spironolact 2022- Yes [id number] 50mg Take 1 [facility] one 12-2405 tablet by ity of (ALDACTONE) 00:00: 04:59 mouth in [place] 50 mg 00 :00 the Medical tablet morning Branch for 90 days. furosemide 2022- Yes [id number] 20mg Take 1 [facility] (LASIX) 20 12-24-05 tablet by ity of mg tablet 00:00: 04:59 mouth in [place] 00 :00 the Medical morning Branch for 90 days. spironolact 2022- Yes [id number] 50mg Take 1 [facility] one 12-24-05 tablet by ity of (ALDACTONE) 00:00: 04:59 mouth in [place] 50 mg 00 :00 the Medical tablet morning Branch for 90 days. furosemide 2022- No [id number] 20mg Take 1 [facility] (LASIX) 20 12-24 tablet by ity of mg tablet 00:00: 00:00 mouth in [place] 00 :00 the Medical morning Branch for 90 days. spironolact 2022- No [id number] 50mg Take 1 [facility] one 12-24 tablet by ity of (ALDACTONE) 00:00: 00:00 mouth in [place] 50 mg 00 :00 the Medical tablet morning Branch for 90 days. warfarin Yes 10mg 10 mg, [facility] (COUMADIN) 12-21 Oral, ity of tablet 10 23:00: [place] 1700, Medical First dose Branch on Sat12/21/22 at 1700, Until Discontinu ed, Routine
INR Goal Range: 205
IND ICATION (More than one indication for warfarin can be selected): DVT and/or PE warfarin 2022- Yes [id number] 5mg Take 2 Un darius 2.5 mg 12-21 tablets by ity of tablet 00:00: 05:59 mouth [place] 00 :00 every Medical other day Branch in the evening for 7 days. warfarin 2022- Yes [id number] 2.5mg Take 1 U nivers 2.5 mg 3-03 03-11 tablet by ity of tablet 00:00: 05:59 mouth [place] 00 :00 every Medical other day Branch in the evening for 7 days. warfarin 2022- Yes [id number] 5mg Take 2 Un darius 2.5 mg 3-03 03-11 tablets by ity of tablet 00:00: 05:59 mouth [place] 00 :00 every Medical other day Branch in the evening for 7 days. warfarin 2022- Yes [id number] 2.5mg Take 1 U nivers 2.5 mg 3-12 21-11 tablet by ity of tablet 00:00: 05:59 mouth [place] 00 :00 every Medical other day Branch in the evening for 7 days. warfarin 2022- Yes [id number] 5mg Take 2 Un darius 2.5 mg 3-12 21-11 tablets by ity of tablet 00:00: 05:59 mouth [place] 00 :00 every Medical other day Branch in the evening for 7 days. warfarin 2022- Yes [id number] 2.5mg Take 1 U nivers 2.5 mg 3-12 21-11 tablet by ity of tablet 00:00: 05:59 mouth [place] 00 :00 every Medical other day Branch in the evening for 7 days. warfarin 2022- Yes [id number] 5mg Take 2 Un darius 2.5 mg 3-12 21-11 tablets by ity of tablet 00:00: 05:59 mouth [place] 00 :00 every Medical other day Branch in the evening for 7 days. warfarin 2022- Yes [id number] 2.5mg Take 1 U nivers 2.5 mg 3-12 21-11 tablet by ity of tablet 00:00: 05:59 mouth [place] 00 :00 every Medical other day Branch in the evening for 7 days. warfarin 2022- Yes [id number] 5mg Take 2 Un darius 2.5 mg 3-12 21-11 tablets by ity of tablet 00:00: 05:59 mouth [place] 00 :00 every Medical other day Branch in the evening for 7 days. warfarin 2022- Yes [id number] 2.5mg Take 1 U nivers 2.5 mg 3- 03-11 tablet by ity of tablet 00:00: 05:59 mouth [place] 00 :00 every Medical other day Branch in the evening for 7 days. warfarin 202-0 2022- No [id number] 5mg Take 2 Un darius 2.5 mg 312-27 tablets by ity of tablet 00:00: 00:00 mouth [place] 00 :00 every Medical other day Branch in the evening for 7 days. warfarin 2023-0 3- No [id number] 2.5mg Take 1 U nivers 2.5 mg 12-21 tablet by ity of tablet 00:00: 00:00 mouth [place] 00 :00 every Medical other day Branch in the evening for 7 days. iopamidol 2022-0 3- No [id number] 80mL 80 mL, [facility] (ISOVUE 12-20 9101 Intravenou ity o f 370-500 mL) 17:30: 18:05 s, ONCE, 1 [place] injection 00 :00 dose, On Medica l 80 mL Bing 12/20/22 Branch at 1130, Routine omeprazole 2022-0 2022- No 20mg Take 1 Univ ers 20 mg 2-27 -27 capsule by ity of capsule 10:38: 00:00 mouth in [place] 23 :00 the Medical morning. Branch Takes 2 tablets daily pantoprazol 2023-0 Yes 40mg Take 1 Univ ers e 40 mg EC 2-27 tablet by ity of tablet 10:36: mouth in [address] and 1 tablet in the evening. pantoprazol 2023-0 Yes 40mg Take 1 Univ ers e 40 mg EC 2-27 tablet by ity of tablet 10:36: mouth in [address] and 1 tablet in the evening. pantoprazol 2023-0 Yes 40mg Take 1 [facility] ers e 40 mg EC 2-27 tablet by ity of tablet 10:36: mouth in [address] morning [place] and 1 tablet in the evening. pantoprazol 2023-0 Yes 40mg Take 1 Univ ers e 40 mg EC 2-27 tablet by ity of tablet 10:36: mouth in [address] morning [place] and 1 tablet in the evening. pantoprazol 2023-0 Yes 40mg Take 1 [facility] ers e 40 mg EC 2-27 tablet by ity of tablet 10:36: mouth in [address] and 1 tablet in the evening. pantoprazol 2023-0 Yes 40mg Take 1 [facility] ers e 40 mg EC 2-27 tablet by ity of tablet 10:36: mouth in [place] [address] the Medical morning Branch and 1 tablet in the evening. pantoprazol 2023-0 Yes 40mg Take 1 Univ ers e 40 mg EC 2-27 tablet by ity of tablet 10:36: mouth in [place] 41 the Medical morning Branch and 1 tablet in the evening. pantoprazol 2023-0 Yes 40mg Take 1 Univ ers e 40 mg EC 2-27 tablet by ity of tablet 10:36: mouth in [place] 41 the Medical morning Branch and 1 tablet in the evening. meclizine 2023-0 Yes [id number] 25mg Take 1 U nivers 25 mg 2-17 tablet by ity of tablet 00:00: mouth 3 [place] [address] (three) Medical times Branch daily as needed for Dizziness. amoxicillin 3-0 Yes [id number] 1{tbl} Take 1 [facility] -clavulanat 2-17 tablet by ity of e 00:00: mouth in [place] (AUGMENTIN) 00 the Medical 875-125 mg morning Branch per tablet and 1 tablet in the evening. meclizine 2023-0 Yes [id number] 25mg Take 1 U nivers 25 mg 2-17 tablet by ity of tablet 00:00: mouth 3 [place] [address] (three) Medical times Branch daily as needed for Dizziness. amoxicillin 3-0 Yes [id number] 1{tbl} Take 1 [facility] -clavulanat 2-17 tablet by ity of e 00:00: mouth in [place] (AUGMENTIN) 00 the Medical 875-125 mg morning Branch per tablet and 1 tablet in the evening. meclizine 2023-0 Yes [id number] 25mg Take 1 U nivers 25 mg 2-17 tablet by ity of tablet 00:00: mouth 3 [place] 00 (three) Medical times Branch daily as needed for Dizziness. amoxicillin 2023-0 Yes [id number] 1{tbl} Take 1 [facility] -clavulanat 2-17 tablet by ity of e 00:00: mouth in [place] (AUGMENTIN) 00 the Medical 875-125 mg morning Branch per tablet and 1 tablet in the evening. meclizine 2023-0 Yes [id number] 25mg Take 1 U nivers 25 mg 2-17 tablet by ity of tablet 00:00: mouth 3 (three) Medical times Branch daily as needed for Dizziness. amoxicillin 2022-0 Yes [id number] 1{tbl} Take 1 [facility] -clavulanat 2-17 tablet by ity of e 00:00: mouth in [place] (AUGMENTIN) 00 the Medical 875-125 mg morning Branch per tablet and 1 tablet in the evening. meclizine 3-0 Yes [id number] 25mg Take 1 U nivers 25 mg 2-17 tablet by ity of tablet 00:00: mouth 3 00 (three) Medical times Branch daily as needed for Dizziness. amoxicillin 2022-0 Yes [id number] 1{tbl} Take 1 [facility] -clavulanat 2-17 tablet by ity of e 00:00: mouth in [place] (AUGMENTIN) 00 the Medical 875-125 mg morning Branch per tablet and 1 tablet in the evening. meclizine 3-0 Yes [id number] 25mg Take 1 U nivers 25 mg 2-17 tablet by ity of tablet 00:00: mouth 3 (three) Medical times Branch daily as needed for Dizziness. amoxicillin 2022-0 Yes [id number] 1{tbl} Take 1 [facility] -clavulanat 2-17 tablet by ity of e 00:00: mouth in [place] (AUGMENTIN) 00 the Medical 875-125 mg morning Branch per tablet and 1 tablet in the evening. meclizine 3-0 Yes [id number] 25mg Take 1 U nivers 25 mg 2-17 tablet by ity of tablet 00:00: mouth 3 (three) Medical times Branch daily as needed for Dizziness. amoxicillin 2022-0 Yes [id number] 1{tbl} Take 1 [facility] -clavulanat 2-17 tablet by ity of e 00:00: mouth in [place] (AUGMENTIN) 00 the Medical 875-125 mg morning Branch per tablet and 1 tablet in the evening. meclizine 2023-0 Yes [id number] 25mg Take 1 U nivers 25 mg 2-17 tablet by ity of tablet 00:00: mouth 3 00 (three) Medical times Branch daily as needed for Dizziness. amoxicillin 3-0 Yes [id number] 1{tbl} Take 1 [facility] -clavulanat 2-17 tablet by ity of e 00:00: mouth in [place] (AUGMENTIN) 00 the Medical 875-125 mg morning Branch per tablet and 1 tablet in the evening. meclizine 3-0 Yes [id number] 25mg Take 1 U nivers 25 mg 2-17 tablet by ity of tablet 00:00: mouth 3 [place] 00 (three) Medical times Branch daily as needed for Dizziness. amoxicillin 2022-0 Yes [id number] 1{tbl} Take 1 [facility] -clavulanat 2-17 tablet by ity of e 00:00: mouth in [place] (AUGMENTIN) 00 the Medical 875-125 mg morning Branch per tablet and 1 tablet in the evening. meclizine 2022-0 Yes [id number] 25mg Take 1 U nivers 25 mg 2-17 tablet by ity of tablet 00:00: mouth 3 00 (three) Medical times Branch daily as needed for Dizziness. amoxicillin 2022-0 Yes [id number] 1{tbl} Take 1 [facility] -clavulanat 2-17 tablet by ity of e 00:00: mouth in [place] (AUGMENTIN) 00 the Medical 875-125 mg morning Branch per tablet and 1 tablet in the evening. meclizine 2022-0 Yes [id number] 25mg Take 1 U nivers 25 mg 2-17 tablet by ity of tablet 00:00: mouth 3 00 (three) Medical times Branch daily as needed for Dizziness. amoxicillin 2022-0 Yes [id number] 1{tbl} Take 1 [facility] -clavulanat 2-17 tablet by ity of e 00:00: mouth in [place] (AUGMENTIN) 00 the Medical 875-125 mg morning Branch per tablet and 1 tablet in the evening. meclizine 3-0 Yes [id number] 25mg Take 1 U nivers 25 mg 2-17 tablet by ity of tablet 00:00: mouth 3 00 (three) Medical times Branch daily as needed for Dizziness. amoxicillin 3-0 Yes [id number] 1{tbl} Take 1 [facility] -clavulanat 2-17 tablet by ity of e 00:00: mouth in [place] (AUGMENTIN) 00 the Medical 875-125 mg morning Branch per tablet and 1 tablet in the evening. meclizine 2023-0 Yes [id number] 25mg Take 1 U nivers 25 mg 2-17 tablet by ity of tablet 00:00: mouth 3 00 (three) Medical times Branch daily as needed for Dizziness. amoxicillin 3-0 Yes [id number] 1{tbl} Take 1 [facility] -clavulanat 2-17 tablet by ity of e 00:00: mouth in [place] (AUGMENTIN) 00 the Medical 875-125 mg morning Branch per tablet and 1 tablet in the evening. meclizine 3-0 Yes [id number] 25mg Take 1 U nivers 25 mg 2-17 tablet by ity of tablet 00:00: mouth 3 00 (three) Medical times Branch daily as needed for Dizziness. amoxicillin 2022-0 Yes [id number] 1{tbl} Take 1 [facility] -cl[facility]anat 2-17 tablet by [facility] 00:00: mouth in [place] (AUGMENTIN) 00 the Medical 875-125 mg morning Branch per tablet and 1 tablet in the evening. meclizine 3-0 Yes [id number] 25mg Take 1 [facility] 25 mg 2-17 tablet by [facility] of tablet 00:00: mouth 3 00 (three) Medical times Branch daily as needed for Dizziness. amoxicillin 2022-0 Yes [id number] 1{tbl} Take 1 [facility] -clavulanat 2-17 tablet by [facility] e 00:00: mouth in [place] (AUGMENTIN) 00 the Medical 875-125 mg morning Branch per tablet and 1 tablet in the evening. meclizine 3-0 Yes [id number] 25mg Take 1 [facility] 25 mg 2-17 tablet by [facility] of tablet 00:00: mouth 3 (three) Medical times Branch daily as needed for Dizziness. amoxicillin 3-0 Yes [id number] 1{tbl} Take 1 [facility] -clavulanat 2-17 tablet by [facility] e 00:00: mouth in [place] (AUGMENTIN) 00 the Medical 875-125 mg morning Branch per tablet and 1 tablet in the evening. meclizine 2023-0 Yes [id number] 25mg Take 1 [facility] 25 mg 2-17 tablet by [facility] tablet 00:00: mouth 3 00 (three) Medical times Branch daily as needed for Dizziness. amoxicillin 3-0 Yes [id number] 1{tbl} Take 1 [facility] -clavulanat 2-17 tablet by [facility] e 00:00: mouth in [place] (AUGMENTIN) 00 the Medical 875-125 mg morning Branch per tablet and 1 tablet in the evening. meclizine 2022-0 Yes [id number] 25mg Take 1 [facility] 25 mg 2-17 tablet by [facility] of tablet 00:00: mouth 3 00 (three) Medical times Branch daily as needed for Dizziness. amoxicillin 2022-0 Yes [id number] 1{tbl} Take 1 [facility] -clavulanat 2-17 tablet by [facility] e 00:00: mouth in [place] (AUGMENTIN) 00 the Medical 875-125 mg morning Branch per tablet and 1 tablet in the evening. meclizine 2022-0 Yes [id number] 25mg Take 1 [facility] 25 mg 2-17 tablet by [facility] of tablet 00:00: mouth 3 (three) Medical times Branch daily as needed for Dizziness. amoxicillin 2022-0 Yes [id number] 1{tbl} Take 1 [facility] -clavulanat 2-17 tablet by [facility] e 00:00: mouth in [place] (AUGMENTIN) 00 the Medical 875-125 mg morning Branch per tablet and 1 tablet in the evening. meclizine 2022-0 Yes [id number] 25mg Take 1 [facility] 25 mg 2-17 tablet by [facility] tablet 00:00: mouth 3 00 (three) Medical times Branch daily as needed for Dizziness. amoxicillin 2022-0 Yes [id number] 1{tbl} Take 1 [facility] -clavulanat 2-17 tablet by [facility] e 00:00: mouth in [place] (AUGMENTIN) 00 the Medical 875-125 mg morning Branch per tablet and 1 tablet in the evening. meclizine 2022-0 Yes [id number] 25mg Take 1 [facility] 25 mg 2-17 tablet by [facility] tablet 00:00: mouth 3 00 (three) Medical times Branch daily as needed for Dizziness. meclizine 2022-0 Yes [id number] 25mg Take 1 [facility] 25 mg 2-17 tablet by [facility] of tablet 00:00: mouth 3 00 (three) Medical times Branch daily as needed for Dizziness. meclizine 3-0 Yes [id number] 25mg Take 1 [facility] 25 mg 2-17 tablet by [facility] of tablet 00:00: mouth 3 (three) Medical times Branch daily as needed for Dizziness. meclizine 2022-0 Yes [id number] 25mg Take 1 [facility] 25 mg 2-17 tablet by [facility] of tablet 00:00: mouth 3 (three) Medical times Branch daily as needed for Dizziness. meclizine 2022-0 Yes [id number] 25mg Take 1 [facility] 25 mg 2-17 tablet by [facility] tablet 00:00: mouth (three) Medical times Branch daily as needed for Dizziness. meclizine 2022-0 Yes [id number] 25mg Take 1 [facility] 25 mg 2-17 tablet by [facility] tablet 00:00: mouth (three) Medical times Branch daily as needed for Dizziness. meclizine 2022-0 Yes [id number] 25mg Take 1 [facility] 25 mg 2-17 tablet by [facility] of tablet 00:00: mouth (three) Medical times Branch daily as needed for Dizziness. meclizine 2022-0 Yes [id number] 25mg Take 1 [facility] 25 mg 2-17 tablet by [facility] of tablet 00:00: mouth (three) Medical times Branch daily as needed for Dizziness. meclizine 2022-0 Yes [id number] 25mg Take 1 [facility] 25 mg 2-17 tablet by [facility] of tablet 00:00: mouth (three) Medical times Branch daily as needed for Dizziness. meclizine 2022-0 Yes [id number] 25mg Take 1 [facility] 25 mg 2-17 tablet by [facility] tablet 00:00: mouth (three) Medical times Branch daily as needed for Dizziness. meclizine 2022-0 Yes [id number] 25mg Take 1 [facility] 25 mg 2-17 tablet by [facility] of tablet 00:00: mouth (three) Medical times Branch daily as needed for Dizziness. meclizine 2022-0 Yes [id number] 25mg Take 1 [facility] 25 mg 2-17 tablet by [facility] tablet 00:00: mouth 3 (three) Medical times Branch daily as needed for Dizziness. meclizine 2022-0 Yes [id number] 25mg Take 1 [facility] 25 mg 2-17 tablet by [facility] tablet 00:00: mouth 3 (three) Medical times Branch daily as needed for Dizziness. meclizine 2022-0 Yes [id number] 25mg Take 1 [facility] 25 mg 2-17 tablet by [facility] of tablet 00:00: mouth 3 (three) Medical times Branch daily as needed for Dizziness. meclizine 2022-0 Yes [id number] 25mg Take 1 [facility] 25 mg 2-17 tablet by [facility] of tablet 00:00: mouth (three) Medical times Branch daily as needed for Dizziness. meclizine 2022-0 Yes [id number] 25mg Take 1 [facility] 25 mg 2-17 tablet by [facility] of tablet 00:00: mouth (three) Medical times Branch daily as needed for Dizziness. meclizine 2022-0 Yes [id number] 25mg Take 1 [facility] 25 mg 2-17 tablet by [facility] of tablet 00:00: mouth (three) Medical times Branch daily as needed for Dizziness. meclizine 2022-0 Yes [id number] 25mg Take 1 [facility] 25 mg 2-17 tablet by [facility] of tablet 00:00: mouth (three) Medical times Branch daily as needed for Dizziness. meclizine 2022-0 Yes [id number] 25mg Take 1 [facility] 25 mg 2-17 tablet by [facility] of tablet 00:00: mouth (three) Medical times Branch daily as needed for Dizziness. meclizine 2022-0 Yes [id number] 25mg Take 1 [facility] 25 mg 2-17 tablet by [facility] of tablet 00:00: mouth (three) Medical times Branch daily as needed for Dizziness. meclizine 2022-0 Yes [id number] 25mg Take 1 [facility] 25 mg 2-17 tablet by [facility] of tablet 00:00: mouth (three) Medical times Branch daily as needed for Dizziness. meclizine 2022-0 Yes [id number] 25mg Take 1 [facility] 25 mg 2-17 tablet by [facility] of tablet 00:00: mouth (three) Medical times Branch daily as needed for Dizziness. meclizine 2022-0 Yes [id number] 25mg Take 1 [facility] 25 mg 2-17 tablet by [facility] of tablet 00:00: mouth 3 [place] 00 (three) Medical times Branch daily as needed for Dizziness. amoxicillin 2022-0 2023- No [id number] 1{tbl} Take 1 [facility] -clavulanat 2-17 03-09 tablet by it y of e 00:00: 00:00 mouth in [place] (AUGMENTIN) 00 :00 the [facility] 875-125 mg morning Branch per tablet and 1 tablet in the evening. gabapentin 2023-0 Yes [id number] 200mg Take 2 [facility] 100 mg 2-07 capsules ity of capsule 00:00: by mouth [place] 00 in the Medical morning Branch and 2 capsules at noon and 2 capsules in the evening. DULoxetine 2022-0 Yes [id number] 20mg Take 1 [facility] 20 mg 2-07 capsule by ity of capsule 00:00: mouth in [place] 00 the Medical morning Branch and 1 capsule in the evening. thiamine 3-0 Yes [id number] 100mg Take 1 [facility] 100 mg 2-07 tablet by it[facility] of tablet 00:00: mouth in [place] 00 the Medical morning. Branch gabapentin 3-0 Yes [id number] 200mg Take 2 [facility] 100 mg 2-07 capsules ity of capsule 00:00: by mouth [place] 00 in the Medical morning Branch and 2 capsules at noon and 2 capsules in the evening. DULoxetine 3-0 Yes [id number] 20mg Take 1 [facility] 20 mg 2-07 capsule by it[facility] of capsule 00:00: mouth in [place] 00 the Medical morning Branch and 1 capsule in the evening. thiamine 2023-0 Yes [id number] 100mg Take 1 [facility] 100 mg 2-07 tablet by it[facility] of tablet 00:00: mouth in [place] 00 the Medical morning. Branch gabapentin 3-0 Yes [id number] 200mg Take 2 [facility] 100 mg 2-07 capsules ity of capsule 00:00: by mouth [place] 00 in the Medical morning Branch and 2 capsules at noon and 2 capsules in the evening. DULoxetine 2023-0 Yes [id number] 20mg Take 1 [facility] 20 mg 2-07 capsule by it[facility] of capsule 00:00: mouth in [place] 00 the Medical morning Branch and 1 capsule in the evening. thiamine 2023-0 Yes [id number] 100mg Take 1 [facility] 100 mg 2-07 tablet by it[facility] of tablet 00:00: mouth in [place] the Medical morning. Branch gabapentin 2023-0 Yes [id number] 200mg Take 2 [facility] 100 mg 2-07 capsules ity of capsule 00:00: by mouth [place] 00 in the Medical morning Branch and 2 capsules at noon and 2 capsules in the evening. DULoxetine 2023-0 Yes [id number] 20mg Take 1 [facility] 20 mg 2-07 capsule by ity of capsule 00:00: mouth in [place] the Medical morning Branch and 1 capsule in the evening. thiamine 2023-0 Yes [id number] 100mg Take 1 [facility] 100 mg 2-07 tablet by it[facility] of tablet 00:00: mouth in [place] the morning. Branch gabapentin 2023-0 Yes [id number] 200mg Take 2 [facility] 100 mg 2-07 capsules ity of capsule 00:00: by mouth [place] in the Medical morning Branch and 2 capsules at noon and 2 capsules in the evening. DULoxetine 2023-0 Yes [id number] 20mg Take 1 [facility] 20 mg 2-07 capsule by it[facility] of capsule 00:00: mouth in [place] the Medical morning Branch and 1 capsule in the evening. thiamine 2023-0 Yes [id number] 100mg Take 1 [facility] 100 mg 2-07 tablet by it[facility] of tablet 00:00: mouth in [place] the morning. Branch gabapentin 2023-0 Yes [id number] 200mg Take 2 [facility] 100 mg 2-07 capsules ity of capsule 00:00: by mouth [place] in the Medical morning Branch and 2 capsules at noon and 2 capsules in the evening. DULoxetine 2023-0 Yes [id number] 20mg Take 1 [facility] 20 mg 2-07 capsule by ity of capsule 00:00: mouth in [place] the Medical morning Branch and 1 capsule in the evening. thiamine 2023-0 Yes [id number] 100mg Take 1 [facility] 100 mg 2-07 tablet by ity of tablet 00:00: mouth in [place] the Medical morning. Branch gabapentin 2023-0 Yes [id number] 200mg Take 2 [facility] 100 mg 2-07 capsules ity of capsule 00:00: by mouth [place] in the Medical morning Branch and 2 capsules at noon and 2 capsules in the evening. DULoxetine 2023-0 Yes [id number] 20mg Take 1 [facility] 20 mg 2-07 capsule by ity of capsule 00:00: mouth in [place] the Medical morning Branch and 1 capsule in the evening. thiamine 2023-0 Yes [id number] 100mg Take 1 [facility] 100 mg 2-07 tablet by ity of tablet 00:00: mouth in [place] the morning. Branch gabapentin 2023-0 Yes [id number] 200mg Take 2 [facility] 100 mg 2-07 capsules ity of capsule 00:00: by mouth [place] 00 in the Medical morning Branch and 2 capsules at noon and 2 capsules in the evening. DULoxetine 2023-0 Yes [id number] 20mg Take 1 [facility] 20 mg 2-07 capsule by ity of capsule 00:00: mouth in [place] the Medical morning Branch and 1 capsule in the evening. thiamine 2023-0 Yes [id number] 100mg Take 1 [facility] 100 mg 2-07 tablet by ity of tablet 00:00: mouth in [place] the morning. Branch gabapentin 2023-0 Yes [id number] 200mg Take 2 [facility] 100 mg 2-07 capsules ity of capsule 00:00: by mouth [place] in the Medical morning Branch and 2 capsules at noon and 2 capsules in the evening. DULoxetine 2023-0 Yes [id number] 20mg Take 1 [facility] 20 mg 2-07 capsule by ity of capsule 00:00: mouth in [place] the Medical morning Branch and 1 capsule in the evening. thiamine 2023-0 Yes [id number] 100mg Take 1 [facility] 100 mg 2-07 tablet by ity of tablet 00:00: mouth in [place] the morning. Branch gabapentin 2023-0 Yes [id number] 200mg Take 2 [facility] 100 mg 2-07 capsules ity of capsule 00:00: by mouth [place] in the Medical morning Branch and 2 capsules at noon and 2 capsules in the evening. DULoxetine 2023-0 Yes [id number] 20mg Take 1 [facility] 20 mg 2-07 capsule by ity of capsule 00:00: mouth in [place] [address] the Medical morning Branch and 1 capsule in the evening. thiamine 2023-0 Yes [id number] 100mg Take 1 [facility] 100 mg 2-07 tablet by ity of tablet 00:00: mouth in [place] 00 the Medical morning. Branch gabapentin 2023-0 Yes [id number] 200mg Take 2 [facility] 100 mg 2-07 capsules ity of capsule 00:00: by mouth [place] 00 in the Medical morning Branch and 2 capsules at noon and 2 capsules in the evening. DULoxetine 2023-0 Yes [id number] 20mg Take 1 [facility] 20 mg 2-07 capsule by ity of capsule 00:00: mouth in [place] the Medical morning Branch and 1 capsule in the evening. thiamine 2023-0 Yes [id number] 100mg Take 1 [facility] 100 mg 2-07 tablet by ity of tablet 00:00: mouth in [place] the Medical morning. Branch gabapentin 2023-0 Yes [id number] 200mg Take 2 [facility] 100 mg 2-07 capsules ity of capsule 00:00: by mouth [place] 00 in the Medical morning Branch and 2 capsules at noon and 2 capsules in the evening. DULoxetine 2023-0 Yes [id number] 20mg Take 1 [facility] 20 mg 2-07 capsule by ity of capsule 00:00: mouth in [place] the Medical morning Branch and 1 capsule in the evening. thiamine 2023-0 Yes [id number] 100mg Take 1 [facility] 100 mg 2-07 tablet by ity of tablet 00:00: mouth in [place] the Medical morning. Branch gabapentin 2023-0 Yes [id number] 200mg Take 2 [facility] 100 mg 2-07 capsules ity of capsule 00:00: by mouth [place] in the Medical morning Branch and 2 capsules at noon and 2 capsules in the evening. DULoxetine 2023-0 Yes [id number] 20mg Take 1 [facility] 20 mg 2-07 capsule by ity of capsule 00:00: mouth in [place] the Medical morning Branch and 1 capsule in the evening. thiamine 2023-0 Yes [id number] 100mg Take 1 [facility] 100 mg 2-07 tablet by ity of tablet 00:00: mouth in [place] the Medical morning. Branch gabapentin 2023-0 Yes [id number] 200mg Take 2 [facility] 100 mg 2-07 capsules ity of capsule 00:00: by mouth [place] in the Medical morning Branch and 2 capsules at noon and 2 capsules in the evening. DULoxetine 2023-0 Yes [id number] 20mg Take 1 [facility] 20 mg 2-07 capsule by ity of capsule 00:00: mouth in [place] the Medical morning Branch and 1 capsule in the evening. thiamine 2023-0 Yes [id number] 100mg Take 1 [facility] 100 mg 2-07 tablet by ity of tablet 00:00: mouth in [place] the morning. Branch gabapentin 2023-0 Yes [id number] 200mg Take 2 [facility] 100 mg 2-07 capsules ity of capsule 00:00: by mouth [place] in the Medical morning Branch and 2 capsules at noon and 2 capsules in the evening. DULoxetine 2023-0 Yes [id number] 20mg Take 1 [facility] 20 mg 2-07 capsule by ity of capsule 00:00: mouth in [place] the Medical morning Branch and 1 capsule in the evening. thiamine 2023-0 Yes [id number] 100mg Take 1 [facility] 100 mg 2-07 tablet by ity of tablet 00:00: mouth in [place] the morning. Branch gabapentin 2023-0 Yes [id number] 200mg Take 2 [facility] 100 mg 2-07 capsules ity of capsule 00:00: by mouth [place] in the Medical morning Branch and 2 capsules at noon and 2 capsules in the evening. DULoxetine 2023-0 Yes [id number] 20mg Take 1 [facility] 20 mg 2-07 capsule by ity of capsule 00:00: mouth in [place] the morning Branch and 1 capsule in the evening. thiamine 2023-0 Yes [id number] 100mg Take 1 [facility] 100 mg 2-07 tablet by ity of tablet 00:00: mouth in [place] the morning. Branch gabapentin 2023-0 Yes [id number] 200mg Take 2 [facility] 100 mg 2-07 capsules ity of capsule 00:00: by mouth [place] in the Medical morning Branch and 2 capsules at noon and 2 capsules in the evening. DULoxetine 2023-0 Yes [id number] 20mg Take 1 [facility] 20 mg 2-07 capsule by ity of capsule 00:00: mouth in [place] the Medical morning Branch and 1 capsule in the evening. thiamine 2023-0 Yes [id number] 100mg Take 1 [facility] 100 mg 2-07 tablet by ity of tablet 00:00: mouth in [place] the morning. Branch gabapentin 2023-0 Yes [id number] 200mg Take 2 [facility] 100 mg 2-07 capsules ity of capsule 00:00: by mouth [place] 00 in the Medical morning Branch and 2 capsules at noon and 2 capsules in the evening. DULoxetine 2023-0 Yes [id number] 20mg Take 1 [facility] 20 mg 2-07 capsule by ity of capsule 00:00: mouth in [place] the Medical morning Branch and 1 capsule in the evening. thiamine 2023-0 Yes [id number] 100mg Take 1 [facility] 100 mg 2-07 tablet by ity of tablet 00:00: mouth in [place] the morning. Branch gabapentin 2023-0 Yes [id number] 200mg Take 2 [facility] 100 mg 2-07 capsules ity of capsule 00:00: by mouth [place] 00 in the Medical morning Branch and 2 capsules at noon and 2 capsules in the evening. DULoxetine 2023-0 Yes [id number] 20mg Take 1 [facility] 20 mg 2-07 capsule by ity of capsule 00:00: mouth in [place] [address] the Medical morning Branch and 1 capsule in the evening. thiamine 2023-0 Yes [id number] 100mg Take 1 [facility] 100 mg 2-07 tablet by ity of tablet 00:00: mouth in [place] the morning. Branch gabapentin 2023-0 Yes [id number] 200mg Take 2 [facility] 100 mg 2-07 capsules ity of capsule 00:00: by mouth [place] 00 in the Medical morning Branch and 2 capsules at noon and 2 capsules in the evening. DULoxetine 2023-0 Yes [id number] 20mg Take 1 [facility] 20 mg 2-07 capsule by ity of capsule 00:00: mouth in [place] [address] the Medical morning Branch and 1 capsule in the evening. thiamine 2023-0 Yes [id number] 100mg Take 1 [facility] 100 mg 2-07 tablet by ity of tablet 00:00: mouth in [place] [address] the morning. Branch gabapentin 2023-0 Yes [id number] 200mg Take 2 [facility] 100 mg 2-07 capsules ity of capsule 00:00: by mouth [place] 00 in the Medical morning Branch and 2 capsules at noon and 2 capsules in the evening. DULoxetine 2023-0 Yes [id number] 20mg Take 1 [facility] 20 mg 2-07 capsule by ity of capsule 00:00: mouth in [place] [address] the Medical morning Branch and 1 capsule in the evening. thiamine 2023-0 Yes [id number] 100mg Take 1 [facility] 100 mg 2-07 tablet by ity of tablet 00:00: mouth in [place] the Medical morning. Branch gabapentin 2023-0 Yes [id number] 200mg Take 2 [facility] 100 mg 2-07 capsules ity of capsule 00:00: by mouth [place] 00 in the Medical morning Branch and 2 capsules at noon and 2 capsules in the evening. DULoxetine 2023-0 Yes [id number] 20mg Take 1 [facility] 20 mg 2-07 capsule by ity of capsule 00:00: mouth in [place] the Medical morning Branch and 1 capsule in the evening. thiamine 2023-0 Yes [id number] 100mg Take 1 [facility] 100 mg 2-07 tablet by ity of tablet 00:00: mouth in [place] the Medical morning. Branch gabapentin 2023-0 Yes [id number] 200mg Take 2 [facility] 100 mg 2-07 capsules ity of capsule 00:00: by mouth [place] in the Medical morning Branch and 2 capsules at noon and 2 capsules in the evening. DULoxetine 2023-0 Yes [id number] 20mg Take 1 [facility] 20 mg 2-07 capsule by ity of capsule 00:00: mouth in [place] the Medical morning Branch and 1 capsule in the evening. thiamine 2023-0 Yes [id number] 100mg Take 1 [facility] 100 mg 2-07 tablet by ity of tablet 00:00: mouth in [place] the morning. Branch gabapentin 2023-0 Yes [id number] 200mg Take 2 [facility] 100 mg 2-07 capsules ity of capsule 00:00: by mouth [place] in the Medical morning Branch and 2 capsules at noon and 2 capsules in the evening. DULoxetine 2023-0 Yes [id number] 20mg Take 1 [facility] 20 mg 2-07 capsule by ity of capsule 00:00: mouth in [place] the Medical morning Branch and 1 capsule in the evening. thiamine 2023-0 Yes [id number] 100mg Take 1 [facility] 100 mg 2-07 tablet by ity of tablet 00:00: mouth in [place] the morning. Branch gabapentin 2023-0 Yes [id number] 200mg Take 2 [facility] 100 mg 2-07 capsules ity of capsule 00:00: by mouth [place] in the Medical morning Branch and 2 capsules at noon and 2 capsules in the evening. DULoxetine 2023-0 Yes [id number] 20mg Take 1 [facility] 20 mg 2-07 capsule by ity of capsule 00:00: mouth in [place] the Medical morning Branch and 1 capsule in the evening. thiamine 2023-0 Yes [id number] 100mg Take 1 [facility] 100 mg 2-07 tablet by ity of tablet 00:00: mouth in [place] the morning. Branch gabapentin 2023-0 Yes [id number] 200mg Take 2 [facility] 100 mg 2-07 capsules ity of capsule 00:00: by mouth [place] in the Medical morning Branch and 2 capsules at noon and 2 capsules in the evening. DULoxetine 2023-0 Yes [id number] 20mg Take 1 [facility] 20 mg 2-07 capsule by ity of capsule 00:00: mouth in [place] the Medical morning Branch and 1 capsule in the evening. thiamine 2023-0 Yes [id number] 100mg Take 1 [facility] 100 mg 2-07 tablet by ity of tablet 00:00: mouth in [place] the morning. Branch gabapentin 2023-0 Yes [id number] 200mg Take 2 [facility] 100 mg 2-07 capsules ity of capsule 00:00: by mouth [place] in the Medical morning Branch and 2 capsules at noon and 2 capsules in the evening. DULoxetine 2023-0 Yes [id number] 20mg Take 1 [facility] 20 mg 2-07 capsule by ity of capsule 00:00: mouth in [place] the morning Branch and 1 capsule in the evening. thiamine 2023-0 Yes [id number] 100mg Take 1 [facility] 100 mg 2-07 tablet by ity of tablet 00:00: mouth in [place] the morning. Branch gabapentin 2023-0 Yes [id number] 200mg Take 2 [facility] 100 mg 2-07 capsules ity of capsule 00:00: by mouth [place] in the Medical morning Branch and 2 capsules at noon and 2 capsules in the evening. DULoxetine 2023-0 Yes [id number] 20mg Take 1 [facility] 20 mg 2-07 capsule by ity of capsule 00:00: mouth in [place] the Medical morning Branch and 1 capsule in the evening. thiamine 2023-0 Yes [id number] 100mg Take 1 [facility] 100 mg 2-07 tablet by ity of tablet 00:00: mouth in [place] the morning. Branch gabapentin 2023-0 Yes [id number] 200mg Take 2 [facility] 100 mg 2-07 capsules ity of capsule 00:00: by mouth [place] 00 in the Medical morning Branch and 2 capsules at noon and 2 capsules in the evening. DULoxetine 2023-0 Yes [id number] 20mg Take 1 [facility] 20 mg 2-07 capsule by ity of capsule 00:00: mouth in [place] the Medical morning Branch and 1 capsule in the evening. thiamine 2023-0 Yes [id number] 100mg Take 1 [facility] 100 mg 2-07 tablet by ity of tablet 00:00: mouth in [place] the Medical morning. Branch gabapentin 2023-0 Yes [id number] 200mg Take 2 [facility] 100 mg 2-07 capsules ity of capsule 00:00: by mouth [place] 00 in the Medical morning Branch and 2 capsules at noon and 2 capsules in the evening. DULoxetine 2023-0 Yes [id number] 20mg Take 1 [facility] 20 mg 2-07 capsule by ity of capsule 00:00: mouth in [place] the Medical morning Branch and 1 capsule in the evening. thiamine 2023-0 Yes [id number] 100mg Take 1 [facility] 100 mg 2-07 tablet by ity of tablet 00:00: mouth in [place] the Medical morning. Branch gabapentin 2023-0 Yes [id number] 200mg Take 2 [facility] 100 mg 2-07 capsules ity of capsule 00:00: by mouth in the Medical morning Branch and 2 capsules at noon and 2 capsules in the evening. DULoxetine 2023-0 Yes [id number] 20mg Take 1 [facility] 20 mg 2-07 capsule by ity of capsule 00:00: mouth in [place] the Medical morning Branch and 1 capsule in the evening. thiamine 2023-0 Yes [id number] 100mg Take 1 [facility] 100 mg 2-07 tablet by ity of tablet 00:00: mouth in [place] the Medical morning. Branch gabapentin 2023-0 Yes [id number] 200mg Take 2 [facility] 100 mg 2-07 capsules ity of capsule 00:00: by mouth [place] in the Medical morning Branch and 2 capsules at noon and 2 capsules in the evening. DULoxetine 2023-0 Yes [id number] 20mg Take 1 [facility] 20 mg 2-07 capsule by ity of capsule 00:00: mouth in [place] [address] the Medical morning Branch and 1 capsule in the evening. thiamine 2023-0 Yes [id number] 100mg Take 1 [facility] 100 mg 2-07 tablet by ity of tablet 00:00: mouth in [place] the morning. Branch gabapentin 2023-0 Yes [id number] 200mg Take 2 [facility] 100 mg 2-07 capsules ity of capsule 00:00: by mouth [place] in the Medical morning Branch and 2 capsules at noon and 2 capsules in the evening. DULoxetine 2023-0 Yes [id number] 20mg Take 1 [facility] 20 mg 2-07 capsule by ity of capsule 00:00: mouth in [place] the Medical morning Branch and 1 capsule in the evening. thiamine 2023-0 Yes [id number] 100mg Take 1 [facility] 100 mg 2-07 tablet by ity of tablet 00:00: mouth in [place] the morning. Branch gabapentin 2023-0 Yes [id number] 200mg Take 2 [facility] 100 mg 2-07 capsules ity of capsule 00:00: by mouth [place] in the Medical morning Branch and 2 capsules at noon and 2 capsules in the evening. DULoxetine 2023-0 Yes [id number] 20mg Take 1 [facility] 20 mg 2-07 capsule by ity of capsule 00:00: mouth in [place] the Medical morning Branch and 1 capsule in the evening. thiamine 2023-0 Yes [id number] 100mg Take 1 [facility] 100 mg 2-07 tablet by ity of tablet 00:00: mouth in [place] the morning. Branch gabapentin 2023-0 Yes [id number] 200mg Take 2 [facility] 100 mg 2-07 capsules ity of capsule 00:00: by mouth in the Medical morning Branch and 2 capsules at noon and 2 capsules in the evening. DULoxetine 2023-0 Yes [id number] 20mg Take 1 [facility] 20 mg 2-07 capsule by ity of capsule 00:00: mouth in [place] the Medical morning Branch and 1 capsule in the evening. thiamine 2023-0 Yes [id number] 100mg Take 1 [facility] 100 mg 2-07 tablet by [facility] tablet 00:00: mouth in [place] the morning. Branch gabapentin 2023-0 Yes [id number] 200mg Take 2 [facility] 100 mg 2-07 capsules it[facility] of capsule 00:00: by mouth [place] in the Medical morning Branch and 2 capsules at noon and 2 capsules in the evening. DULoxetine 2023-0 Yes [id number] 20mg Take 1 [facility] 20 mg 2-07 capsule by [facility] capsule 00:00: mouth in [place] the Medical morning Branch and 1 capsule in the evening. thiamine 2023-0 Yes [id number] 100mg Take 1 [facility] 100 mg 2-07 tablet by [facility] of tablet 00:00: mouth in [place] the Medical morning. Branch gabapentin 2023-0 Yes [id number] 200mg Take 2 [facility] 100 mg 2-07 capsules [facility] of capsule 00:00: by mouth [place] 00 in the Medical morning Branch and 2 capsules at noon and 2 capsules in the evening. DULoxetine 2023-0 Yes [id number] 20mg Take 1 [facility] 20 mg 2-07 capsule by [facility] of capsule 00:00: mouth in [place] the Medical morning Branch and 1 capsule in the evening. thiamine 2023-0 Yes [id number] 100mg Take 1 [facility] 100 mg 2-07 tablet by [facility] tablet 00:00: mouth in [place] the Medical morning. Branch gabapentin 2023-0 Yes [id number] 200mg Take 2 [facility] 100 mg 2-07 capsules [facility] of capsule 00:00: by mouth [place] in the Medical morning Branch and 2 capsules at noon and 2 capsules in the evening. DULoxetine 2023-0 Yes [id number] 20mg Take 1 [facility] 20 mg 2-07 capsule by [facility] capsule 00:00: mouth in [place] the Medical morning Branch and 1 capsule in the evening. thiamine 2023-0 Yes [id number] 100mg Take 1 [facility] 100 mg 2-07 tablet by [facility] of tablet 00:00: mouth in [place] the Medical morning. Branch gabapentin 2023-0 Yes [id number] 200mg Take 2 [facility] 100 mg 2-07 capsules [facility] of capsule 00:00: by mouth [place] in the Medical morning Branch and 2 capsules at noon and 2 capsules in the evening. DULoxetine 2023-0 Yes [id number] 20mg Take 1 [facility] 20 mg 2-07 capsule by [facility] capsule 00:00: mouth in [place] the Medical morning Branch and 1 capsule in the evening. thiamine 2023-0 Yes [id number] 100mg Take 1 [facility] 100 mg 2-07 tablet by [facility] of tablet 00:00: mouth in [place] 00 the Medical morning. Branch gabapentin 2023-0 Yes [id number] 200mg Take 2 [facility] 100 mg 2-07 capsules [facility] of capsule 00:00: by mouth [place] 00 in the Medical morning Branch and 2 capsules at noon and 2 capsules in the evening. DULoxetine 2023-0 Yes [id number] 20mg Take 1 [facility] 20 mg 2-07 capsule by [facility] capsule 00:00: mouth in [place] the Medical morning Branch and 1 capsule in the evening. thiamine 2023-0 Yes [id number] 100mg Take 1 [facility] 100 mg 2-07 tablet by [facility] tablet 00:00: mouth in [place] the Medical morning. Branch gabapentin 2023-0 Yes [id number] 200mg Take 2 [facility] 100 mg 2-07 capsules [facility] of capsule 00:00: by mouth [place] in the Medical morning Branch and 2 capsules at noon and 2 capsules in the evening. DULoxetine 2023-0 Yes [id number] 20mg Take 1 [facility] 20 mg 2-07 capsule by [facility] capsule 00:00: mouth in [place] the Medical morning Branch and 1 capsule in the evening. thiamine 2023-0 Yes [id number] 100mg Take 1 [facility] 100 mg 2-07 tablet by [facility] tablet 00:00: mouth in [place] the Medical morning. Branch gabapentin 2023-0 Yes [id number] 200mg Take 2 [facility] 100 mg 2-07 capsules [facility] of capsule 00:00: by mouth [place] in the Medical morning Branch and 2 capsules at noon and 2 capsules in the evening. DULoxetine 2023-0 Yes [id number] 20mg Take 1 [facility] 20 mg 2-07 capsule by [facility] capsule 00:00: mouth in [place] the Medical morning Branch and 1 capsule in the evening. thiamine 2023-0 Yes [id number] 100mg Take 1 [facility] 100 mg 2-07 tablet by [facility] tablet 00:00: mouth in [place] the morning. Branch gabapentin 2023-0 Yes [id number] 200mg Take 2 [facility] 100 mg 2-07 capsules [facility] capsule 00:00: by mouth [place] in the Medical morning Branch and 2 capsules at noon and 2 capsules in the evening. DULoxetine 2023-0 Yes [id number] 20mg Take 1 [facility] 20 mg 2-07 capsule by [facility] capsule 00:00: mouth in [place] the Medical morning Branch and 1 capsule in the evening. thiamine 2023-0 Yes [id number] 100mg Take 1 [facility] 100 mg 2-07 tablet by [facility] of tablet 00:00: mouth in [place] the morning. Branch gabapentin 2023-0 Yes [id number] 200mg Take 2 [facility] 100 mg 2-07 capsules [facility] of capsule 00:00: by mouth [place] in the Medical morning Branch and 2 capsules at noon and 2 capsules in the evening. DULoxetine 2023-0 Yes [id number] 20mg Take 1 [facility] 20 mg 2-07 capsule by [facility] capsule 00:00: mouth in [place] the Medical morning Branch and 1 capsule in the evening. thiamine 2023-0 Yes [id number] 100mg Take 1 [facility] 100 mg 2-07 tablet by [facility] tablet 00:00: mouth in [place] the morning. Branch gabapentin 2023-0 Yes [id number] 200mg Take 2 [facility] 100 mg 2-07 capsules [facility] of capsule 00:00: by mouth [place] in the Medical morning Branch and 2 capsules at noon and 2 capsules in the evening. DULoxetine 2023-0 Yes [id number] 20mg Take 1 [facility] 20 mg 2-07 capsule by [facility] capsule 00:00: mouth in [place] the Medical morning Branch and 1 capsule in the evening. thiamine 2023-0 Yes [id number] 100mg Take 1 [facility] 100 mg 2-07 tablet by [facility] tablet 00:00: mouth in [place] the morning. Branch gabapentin 2023-0 Yes [id number] 200mg Take 2 [facility] 100 mg 2-07 capsules [facility] of capsule 00:00: by mouth [place] in the Medical morning Branch and 2 capsules at noon and 2 capsules in the evening. DULoxetine 2023-0 Yes [id number] 20mg Take 1 [facility] 20 mg 2-07 capsule by [facility] of capsule 00:00: mouth in [place] the Medical morning Branch and 1 capsule in the evening. thiamine 2023-0 Yes [id number] 100mg Take 1 [facility] 100 mg 2-07 tablet by [facility] of tablet 00:00: mouth in [place] the Medical morning. Branch gabapentin 2023-0 Yes [id number] 200mg Take 2 [facility] 100 mg 2-07 capsules [facility] of capsule 00:00: by mouth [place] in the Medical morning Branch and 2 capsules at noon and 2 capsules in the evening. DULoxetine 2023-0 Yes [id number] 20mg Take 1 [facility] 20 mg 2-07 capsule by [facility] of capsule 00:00: mouth in [place] the Medical morning Branch and 1 capsule in the evening. thiamine 2023-0 Yes [id number] 100mg Take 1 [facility] 100 mg 2-07 tablet by [facility] of tablet 00:00: mouth in [place] the morning. Branch gabapentin 2023-0 Yes [id number] 200mg Take 2 [facility] 100 mg 2-07 capsules [facility] of capsule 00:00: by mouth [place] 00 in the Medical morning Branch and 2 capsules at noon and 2 capsules in the evening. DULoxetine 2023-0 Yes [id number] 20mg Take 1 [facility] 20 mg 2-07 capsule by [facility] of capsule 00:00: mouth in [place] the Medical morning Branch and 1 capsule in the evening. thiamine 2023-0 Yes [id number] 100mg Take 1 [facility] 100 mg 2-07 tablet by [facility] of tablet 00:00: mouth in [place] the morning. Branch gabapentin 2023-0 Yes [id number] 200mg Take 2 [facility] 100 mg 2-07 capsules [facility] of capsule 00:00: by mouth [place] in the Medical morning Branch and 2 capsules at noon and 2 capsules in the evening. DULoxetine 2023-0 Yes [id number] 20mg Take 1 [facility] 20 mg 2-07 capsule by it[facility] of capsule 00:00: mouth in [place] the [facility] morning Branch and 1 capsule in the evening. thiamine 2023-0 Yes [id number] 100mg Take 1 [facility] 100 mg 2-07 tablet by it[facility] of tablet 00:00: mouth in [place] [address] the morning. Branch gabapentin 2023-0 Yes [id number] 200mg Take 2 [facility] 100 mg 2-07 capsules it[facility] of capsule 00:00: by mouth [place] in the Medical morning Branch and 2 capsules at noon and 2 capsules in the evening. DULoxetine 2023-0 Yes [id number] 20mg Take 1 [facility] 20 mg 2-07 capsule by it[facility] of capsule 00:00: mouth in [place] [address] the Medical morning Branch and 1 capsule in the evening. thiamine 2023-0 Yes [id number] 100mg Take 1 [facility] 100 mg 2-07 tablet by it[facility] of tablet 00:00: mouth in [place] the Medical morning. Branch gabapentin 3-0 Yes [id number] 200mg Take 2 [facility] 100 mg 2-07 capsules [facility] of capsule 00:00: by mouth [place] 00 in the Medical morning Branch and 2 capsules at noon and 2 capsules in the evening. DULoxetine 3-0 Yes [id number] 20mg Take 1 [facility] 20 mg 2-07 capsule by [facility] of capsule 00:00: mouth in [place] the Medical morning Branch and 1 capsule in the evening. thiamine 2023-0 Yes [id number] 100mg Take 1 [facility] 100 mg 2-07 tablet by [facility] tablet 00:00: mouth in [place] the Medical morning. Branch traMADoL 50 2022-0 Yes [id number] 50mg TAKE 1 [facility] mg tablet 2-01 TABLET BY ity o f 00:00: MOUTH [place] 00 EVERY 6 Medical (SIX) Branch HOURS NEEDED FOR PAIN (SCALE 7-10) (CANNOT TAKE NSAIDS). INDICATION S: CHRONIC PAIN traMADoL 50 2022-0 Yes [id number] 50mg TAKE 1 [facility] mg tablet 2-01 TABLET BY it[facility] o f 00:00: MOUTH [place] 00 EVERY 6 Medical (SIX) Branch HOURS NEEDED FOR PAIN (SCALE 7-10) (CANNOT TAKE NSAIDS). INDICATION S: CHRONIC PAIN dapaglifloz 2022-0 Yes [id number] 10mg Take 1 [facility] in 2-01 tablet by it[facility] of (FARXIGA) 00:00: mouth [place] 10 mg 00 the Medical tablet morning. Branch metFORMIN 2022-0 Yes [id number] 1000mg Take 2 [facility] 500 mg 2-01 tablets by it[facility] of tablet 00:00: mouth in [place] the Medical morning Branch and 2 tablets in the evening. Take with meals. traMADoL 50 2022-0 Yes [id number] 50mg TAKE 1 [facility] mg tablet 2-01 TABLET BY ity o f 00:00: MOUTH [place] 00 EVERY 6 Medical (SIX) Branch HOURS NEEDED FOR PAIN (SCALE 7-10) (CANNOT TAKE NSAIDS). INDICATION S: CHRONIC PAIN dapaglifloz 3-0 Yes [id number] 10mg Take 1 [facility] in 2-01 tablet by ity of (FARXIGA) 00:00: mouth [place] 10 mg 00 the Medical tablet morning. Branch metFORMIN 2023-0 Yes [id number] 1000mg Take 2 [facility] 500 mg 2-01 tablets by it[facility] of tablet 00:00: mouth in [place] 00 the Medical morning Branch and 2 tablets in the evening. Take with meals. dapaglifloz 2023-0 Yes [id number] 10mg Take 1 [facility] in 2-01 tablet by ity of (FARXIGA) 00:00: mouth in [place] 10 mg 00 the Medical tablet morning. Branch metFORMIN 2023-0 Yes [id number] 1000mg Take 2 [facility] 500 mg 2-01 tablets by ity of tablet 00:00: mouth in [place] 00 the Medical morning Branch and 2 tablets in the evening. Take with meals. dapaglifloz 2023-0 Yes [id number] 10mg Take 1 [facility] in 2-01 tablet by ity of (FARXIGA) 00:00: mouth in [place] 10 mg 00 the Medical tablet morning. Branch metFORMIN 2023-0 Yes [id number] 1000mg Take 2 [facility] 500 mg 2-01 tablets by ity of tablet 00:00: mouth in [place] 00 the Medical morning Branch and 2 tablets in the evening. Take with meals. dapaglifloz 2023-0 Yes [id number] 10mg Take 1 [facility] in 2-01 tablet by ity of (FARXIGA) 00:00: mouth in [place] 10 mg 00 the Medical tablet morning. Branch metFORMIN 2023-0 Yes [id number] 1000mg Take 2 [facility] 500 mg 2-01 tablets by ity of tablet 00:00: mouth in [place] 00 the Medical morning Branch and 2 tablets in the evening. Take with meals. dapaglifloz 2023-0 Yes [id number] 10mg Take 1 [facility] in 2-01 tablet by ity of (FARXIGA) 00:00: mouth in [place] 10 mg 00 the Medical tablet morning. Branch metFORMIN 2023-0 Yes [id number] 1000mg Take 2 [facility] 500 mg 2-01 tablets by ity of tablet 00:00: mouth in [place] 00 the Medical morning Branch and 2 tablets in the evening. Take with meals. dapaglifloz 2023-0 Yes [id number] 10mg Take 1 [facility] in 2-01 tablet by ity of (FARXIGA) 00:00: mouth in [place] 10 mg 00 the Medical tablet morning. Branch metFORMIN 2023-0 Yes [id number] 1000mg Take 2 [facility] 500 mg 2-01 tablets by ity of tablet 00:00: mouth in [place] 00 the Medical morning Branch and 2 tablets in the evening. Take with meals. dapaglifloz 2023-0 Yes [id number] 10mg Take 1 [facility] in 2-01 tablet by ity of (FARXIGA) 00:00: mouth in [place] 10 mg 00 the Medical tablet morning. Branch metFORMIN 2023-0 Yes [id number] 1000mg Take 2 [facility] 500 mg 2-01 tablets by ity of tablet 00:00: mouth in [place] 00 the Medical morning Branch and 2 tablets in the evening. Take with meals. dapaglifloz 2023-0 Yes [id number] 10mg Take 1 [facility] in 2-01 tablet by ity of (FARXIGA) 00:00: mouth in [place] 10 mg 00 the Medical tablet morning. Branch metFORMIN 2023-0 Yes [id number] 1000mg Take 2 [facility] 500 mg 2-01 tablets by ity of tablet 00:00: mouth in [place] the Medical morning Branch and 2 tablets in the evening. Take with meals. dapaglifloz 2023-0 Yes [id number] 10mg Take 1 [facility] in 2-01 tablet by ity of (FARXIGA) 00:00: mouth in [place] 10 mg 00 the Medical tablet morning. Branch metFORMIN 2023-0 Yes [id number] 1000mg Take 2 [facility] 500 mg 2-01 tablets by ity of tablet 00:00: mouth in [place] the Medical morning Branch and 2 tablets in the evening. Take with meals. dapaglifloz 2023-0 Yes [id number] 10mg Take 1 [facility] in 2-01 tablet by ity of (FARXIGA) 00:00: mouth in [place] 10 mg 00 the Medical tablet morning. Branch metFORMIN 2023-0 Yes [id number] 1000mg Take 2 [facility] 500 mg 2-01 tablets by ity of tablet 00:00: mouth in [place] 00 the Medical morning Branch and 2 tablets in the evening. Take with meals. dapaglifloz 2023-0 Yes [id number] 10mg Take 1 [facility] in 2-01 tablet by ity of (FARXIGA) 00:00: mouth in [place] 10 mg 00 the Medical tablet morning. Branch metFORMIN 2023-0 Yes [id number] 1000mg Take 2 [facility] 500 mg 2-01 tablets by ity of tablet 00:00: mouth in [place] 00 the Medical morning Branch and 2 tablets in the evening. Take with meals. dapaglifloz 2023-0 Yes [id number] 10mg Take 1 [facility] in 2-01 tablet by ity of (FARXIGA) 00:00: mouth in [place] 10 mg 00 the Medical tablet morning. Branch metFORMIN 2023-0 Yes [id number] 1000mg Take 2 [facility] 500 mg 2-01 tablets by ity of tablet 00:00: mouth in [place] 00 the Medical morning Branch and 2 tablets in the evening. Take with meals. dapaglifloz 2023-0 Yes [id number] 10mg Take 1 [facility] in 2-01 tablet by ity of (FARXIGA) 00:00: mouth in [place] 10 mg 00 the Medical tablet morning. Branch metFORMIN 2023-0 Yes [id number] 1000mg Take 2 [facility] 500 mg 2-01 tablets by ity of tablet 00:00: mouth in [place] the Medical morning Branch and 2 tablets in the evening. Take with meals. dapaglifloz 2023-0 Yes [id number] 10mg Take 1 [facility] in 2-01 tablet by ity of (FARXIGA) 00:00: mouth in [place] 10 mg 00 the Medical tablet morning. Branch metFORMIN 2023-0 Yes [id number] 1000mg Take 2 [facility] 500 mg 2-01 tablets by ity of tablet 00:00: mouth in [place] the Medical morning Branch and 2 tablets in the evening. Take with meals. dapaglifloz 2023-0 Yes [id number] 10mg Take 1 [facility] in 2-01 tablet by ity of (FARXIGA) 00:00: mouth in [place] 10 mg 00 the Medical tablet morning. Branch metFORMIN 2023-0 Yes [id number] 1000mg Take 2 [facility] 500 mg 2-01 tablets by ity of tablet 00:00: mouth in [place] 00 the Medical morning Branch and 2 tablets in the evening. Take with meals. dapaglifloz 2023-0 Yes [id number] 10mg Take 1 [facility] in 2-01 tablet by ity of (FARXIGA) 00:00: mouth in [place] 10 mg 00 the Medical tablet morning. Branch metFORMIN 2023-0 Yes [id number] 1000mg Take 2 [facility] 500 mg 2-01 tablets by ity of tablet 00:00: mouth in [place] 00 the Medical morning Branch and 2 tablets in the evening. Take with meals. dapaglifloz 2023-0 Yes [id number] 10mg Take 1 [facility] in 2-01 tablet by ity of (FARXIGA) 00:00: mouth in [place] 10 mg 00 the Medical tablet morning. Branch metFORMIN 2023-0 Yes [id number] 1000mg Take 2 [facility] 500 mg 2-01 tablets by ity of tablet 00:00: mouth in [place] 00 the Medical morning Branch and 2 tablets in the evening. Take with meals. dapaglifloz 2023-0 Yes [id number] 10mg Take 1 [facility] in 2-01 tablet by ity of (FARXIGA) 00:00: mouth in [place] 10 mg 00 the Medical tablet morning. Branch metFORMIN 2023-0 Yes [id number] 1000mg Take 2 [facility] 500 mg 2-01 tablets by ity of tablet 00:00: mouth in [place] 00 the Medical morning Branch and 2 tablets in the evening. Take with meals. dapaglifloz 2023-0 Yes [id number] 10mg Take 1 [facility] in 2-01 tablet by ity of (FARXIGA) 00:00: mouth in [place] 10 mg 00 the Medical tablet morning. Branch metFORMIN 2023-0 Yes [id number] 1000mg Take 2 [facility] 500 mg 2-01 tablets by ity of tablet 00:00: mouth in [place] the Medical morning Branch and 2 tablets in the evening. Take with meals. dapaglifloz 2023-0 Yes [id number] 10mg Take 1 [facility] in 2-01 tablet by ity of (FARXIGA) 00:00: mouth in [place] 10 mg 00 the Medical tablet morning. Branch metFORMIN 2023-0 Yes [id number] 1000mg Take 2 [facility] 500 mg 2-01 tablets by ity of tablet 00:00: mouth in [place] 00 the Medical morning Branch and 2 tablets in the evening. Take with meals. dapaglifloz 2023-0 Yes [id number] 10mg Take 1 [facility] in 2-01 tablet by ity of (FARXIGA) 00:00: mouth in [place] 10 mg 00 the Medical tablet morning. Branch metFORMIN 2023-0 Yes [id number] 1000mg Take 2 [facility] 500 mg 2-01 tablets by ity of tablet 00:00: mouth in [place] 00 the Medical morning Branch and 2 tablets in the evening. Take with meals. dapaglifloz 2023-0 Yes [id number] 10mg Take 1 [facility] in 2-01 tablet by ity of (FARXIGA) 00:00: mouth in [place] 10 mg 00 the Medical tablet morning. Branch metFORMIN 2023-0 Yes [id number] 1000mg Take 2 [facility] 500 mg 2-01 tablets by ity of tablet 00:00: mouth in [place] 00 the Medical morning Branch and 2 tablets in the evening. Take with meals. dapaglifloz 2023-0 Yes [id number] 10mg Take 1 [facility] in 2-01 tablet by ity of (FARXIGA) 00:00: mouth in [place] 10 mg 00 the Medical tablet morning. Branch metFORMIN 2023-0 Yes [id number] 1000mg Take 2 [facility] 500 mg 2-01 tablets by ity of tablet 00:00: mouth in [place] 00 the Medical morning Branch and 2 tablets in the evening. Take with meals. dapaglifloz 2023-0 Yes [id number] 10mg Take 1 [facility] in 2-01 tablet by ity of (FARXIGA) 00:00: mouth in [place] 10 mg 00 the Medical tablet morning. Branch metFORMIN 2023-0 Yes [id number] 1000mg Take 2 [facility] 500 mg 2-01 tablets by ity of tablet 00:00: mouth in [place] 00 the Medical morning Branch and 2 tablets in the evening. Take with meals. dapaglifloz 2023-0 Yes [id number] 10mg Take 1 [facility] in 2-01 tablet by ity of (FARXIGA) 00:00: mouth in [place] 10 mg 00 the Medical tablet morning. Branch metFORMIN 2023-0 Yes [id number] 1000mg Take 2 [facility] 500 mg 2-01 tablets by ity of tablet 00:00: mouth in [place] 00 the Medical morning Branch and 2 tablets in the evening. Take with meals. dapaglifloz 2023-0 Yes [id number] 10mg Take 1 [facility] in 2-01 tablet by ity of (FARXIGA) 00:00: mouth in [place] 10 mg 00 the Medical tablet morning. Branch metFORMIN 2023-0 Yes [id number] 1000mg Take 2 [facility] 500 mg 2-01 tablets by ity of tablet 00:00: mouth in [place] 00 the Medical morning Branch and 2 tablets in the evening. Take with meals. dapaglifloz 2023-0 Yes [id number] 10mg Take 1 [facility] in 2-01 tablet by ity of (FARXIGA) 00:00: mouth in [place] 10 mg 00 the Medical tablet morning. Branch metFORMIN 2023-0 Yes [id number] 1000mg Take 2 [facility] 500 mg 2-01 tablets by ity of tablet 00:00: mouth in [place] 00 the Medical morning Branch and 2 tablets in the evening. Take with meals. dapaglifloz 2023-0 Yes [id number] 10mg Take 1 [facility] in 2-01 tablet by ity of (FARXIGA) 00:00: mouth in [place] 10 mg 00 the Medical tablet morning. Branch metFORMIN 2023-0 Yes [id number] 1000mg Take 2 [facility] 500 mg 2-01 tablets by ity of tablet 00:00: mouth in [place] 00 the Medical morning Branch and 2 tablets in the evening. Take with meals. dapaglifloz 2023-0 Yes [id number] 10mg Take 1 [facility] in 2-01 tablet by ity of (FARXIGA) 00:00: mouth in [place] 10 mg 00 the Medical tablet morning. Branch metFORMIN 2023-0 Yes [id number] 1000mg Take 2 [facility] 500 mg 2-01 tablets by ity of tablet 00:00: mouth in [place] 00 the Medical morning Branch and 2 tablets in the evening. Take with meals. dapaglifloz 2023-0 Yes [id number] 10mg Take 1 [facility] in 2-01 tablet by ity of (FARXIGA) 00:00: mouth in [place] 10 mg 00 the Medical tablet morning. Branch metFORMIN 2023-0 Yes [id number] 1000mg Take 2 [facility] 500 mg 2-01 tablets by ity of tablet 00:00: mouth in [place] 00 the Medical morning Branch and 2 tablets in the evening. Take with meals. dapaglifloz 2023-0 Yes [id number] 10mg Take 1 [facility] in 2-01 tablet by ity of (FARXIGA) 00:00: mouth in [place] 10 mg 00 the Medical tablet morning. Branch metFORMIN 2023-0 Yes [id number] 1000mg Take 2 [facility] 500 mg 2-01 tablets by ity of tablet 00:00: mouth in [place] 00 the Medical morning Branch and 2 tablets in the evening. Take with meals. dapaglifloz 2023-0 Yes [id number] 10mg Take 1 [facility] in 2-01 tablet by ity of (FARXIGA) 00:00: mouth in [place] 10 mg 00 the Medical tablet morning. Branch metFORMIN 2023-0 Yes [id number] 1000mg Take 2 [facility] 500 mg 2-01 tablets by ity of tablet 00:00: mouth in [place] 00 the Medical morning Branch and 2 tablets in the evening. Take with meals. dapaglifloz 2023-0 Yes [id number] 10mg Take 1 [facility] in 2-01 tablet by ity of (FARXIGA) 00:00: mouth in [place] 10 mg 00 the Medical tablet morning. Branch metFORMIN 2023-0 Yes [id number] 1000mg Take 2 [facility] 500 mg 2-01 tablets by ity of tablet 00:00: mouth in [place] 00 the Medical morning Branch and 2 tablets in the evening. Take with meals. dapaglifloz 2023-0 Yes [id number] 10mg Take 1 [facility] in 2-01 tablet by ity of (FARXIGA) 00:00: mouth in [place] 10 mg 00 the Medical tablet morning. Branch metFORMIN 2023-0 Yes [id number] 1000mg Take 2 [facility] 500 mg 2-01 tablets by ity of tablet 00:00: mouth in [place] the Medical morning Branch and 2 tablets in the evening. Take with meals. dapaglifloz 2023-0 Yes [id number] 10mg Take 1 [facility] in 2-01 tablet by ity of (FARXIGA) 00:00: mouth in [place] 10 mg 00 the Medical tablet morning. Branch metFORMIN 2023-0 Yes [id number] 1000mg Take 2 [facility] 500 mg 2-01 tablets by ity of tablet 00:00: mouth in [place] the Medical morning Branch and 2 tablets in the evening. Take with meals. dapaglifloz 2023-0 Yes [id number] 10mg Take 1 [facility] in 2-01 tablet by ity of (FARXIGA) 00:00: mouth in [place] 10 mg 00 the Medical tablet morning. Branch metFORMIN 2023-0 Yes [id number] 1000mg Take 2 [facility] 500 mg 2-01 tablets by ity of tablet 00:00: mouth in [place] 00 the Medical morning Branch and 2 tablets in the evening. Take with meals. dapaglifloz 2023-0 Yes [id number] 10mg Take 1 [facility] in 2-01 tablet by ity of (FARXIGA) 00:00: mouth in [place] 10 mg 00 the Medical tablet morning. Branch metFORMIN 2023-0 Yes [id number] 1000mg Take 2 [facility] 500 mg 2-01 tablets by ity of tablet 00:00: mouth in [place] [address] the Medical morning Branch and 2 tablets in the evening. Take with meals. dapaglifloz 2023-0 Yes [id number] 10mg Take 1 [facility] in 2-01 tablet by ity of (FARXIGA) 00:00: mouth in [facility] 10 mg 00 the Medical tablet morning. Branch metFORMIN 2023-0 Yes [id number] 1000mg Take 2 [facility] 500 mg 2-01 tablets by ity of tablet 00:00: mouth in [place] [address] the Medical morning Branch and 2 tablets in the evening. Take with meals. metFORMIN 2023-0 Yes [id number] 1000mg Take 2 [facility] 500 mg 2-01 tablets by ity of tablet 00:00: mouth in [place] [address] the Medical morning Branch and 2 tablets in the evening. Take with meals. metFORMIN 2023-0 Yes [id number] 1000mg Take 2 [facility] 500 mg 2-01 tablets by ity of tablet 00:00: mouth in [place] [address] the Medical morning [place] and 2 tablets in the evening. Take with meals. metFORMIN 2023-0 Yes [id number] 1000mg Take 2 [facility] 500 mg 2-01 tablets by ity of tablet 00:00: mouth in [place] [address] the Medical morning [place] and 2 tablets in the evening. Take with meals. metFORMIN 2023-0 Yes [id number] 1000mg Take 2 [facility] 500 mg 2-01 tablets by ity of tablet 00:00: mouth in [place] [address] the Medical morning [place] and 2 tablets in the evening. Take with meals. metFORMIN 2023-0 Yes [id number] 1000mg Take 2 [facility] 500 mg 2-01 tablets by ity of tablet 00:00: mouth in [place] [address] the Medical morning [place] and 2 tablets in the evening. Take with meals. metFORMIN 2023-0 Yes [id number] 1000mg Take 2 [facility] 500 mg 2-01 tablets by ity of tablet 00:00: mouth in [place] [address] the Medical morning [place] and 2 tablets in the evening. Take with meals. metFORMIN 2023-0 Yes [id number] 1000mg Take 2 [facility] 500 mg 2-01 tablets by ity of tablet 00:00: mouth in [place] [address] the Medical morning [place] and 2 tablets in the evening. Take with meals. metFORMIN 2023-0 Yes [id number] 1000mg Take 2 [facility] 500 mg 2-01 tablets by ity of tablet 00:00: mouth in [place] [address] the Medical morning [place] and 2 tablets in the evening. Take with meals. metFORMIN 2023-0 Yes [id number] 1000mg Take 2 [facility] 500 mg 2-01 tablets by ity of tablet 00:00: mouth in [place] [address] the [facility] morning [place] and 2 tablets in the evening. Take with meals. metFORMIN 2023-0 Yes [id number] 1000mg Take 2 [facility] 500 mg 2-01 tablets by ity of tablet 00:00: mouth in [place] [address] the [facility] morning [place] and 2 tablets in the evening. Take with meals. metFORMIN 2023-0 Yes [id number] 1000mg Take 2 [facility] 500 mg 2-01 tablets by ity of tablet 00:00: mouth in [place] [address] the [facility] morning [place] and 2 tablets in the evening. Take with meals. metFORMIN 2023-0 Yes [id number] 1000mg Take 2 [facility] 500 mg 2-01 tablets by ity of tablet 00:00: mouth in [address] morning [place] and 2 tablets in the evening. Take with meals. metFORMIN 2023-0 Yes [id number] 1000mg Take 2 [facility] 500 mg 2-01 tablets by ity of tablet 00:00: mouth in [address] morning [place] and 2 tablets in the evening. Take with meals. metFORMIN 2023-0 Yes [id number] 1000mg Take 2 [facility] 500 mg 2-01 tablets by ity of tablet 00:00: mouth in [address] morning [place] and 2 tablets in the evening. Take with meals. metFORMIN 2023-0 Yes [id number] 1000mg Take 2 [facility] 500 mg 2-01 tablets by ity of tablet 00:00: mouth in [address] and 2 tablets in the evening. Take with meals. metFORMIN 2023-0 Yes [id number] 1000mg Take 2 [facility] 500 mg 2-01 tablets by ity of tablet 00:00: mouth in [address] and 2 tablets in the evening. Take with meals. dapaglifloz 2023-0 2023- No [id number] 10mg Take 1 [facility] in 11-21 tablet by ity of (FARXIGA) 00:00: 00:00 mouth in [place] 10 mg 00 :00 the Medical tablet morning. Branch dapaglifloz 2023-0 2023- No [id number] 10mg Take 1 [facility] in 11-21 tablet by ity of (FARXIGA) 00:00: 00:00 mouth in [place] 10 mg 00 :00 the Medical tablet morning. Branch traMADoL 50 2022- No [id number] 50mg TAKE 1 [facility] vers mg tablet 11-21 TABLET BY ity of 00:00: 00:00 MOUTH [place] 00 :00 EVERY 6 Medical (SIX) Branch HOURS NEEDED FOR PAIN (SCALE 7-10) (CANNOT TAKE NSAIDS). INDICATION S: CHRONIC PAIN traMADoL 50 2022- No 2745 50mg TAKE 1 [facility] vers mg tablet 11-21 TABLET BY ity of 00:00: 00:00 MOUTH [place] 00 :00 EVERY 6 Medical (SIX) Branch HOURS NEEDED FOR PAIN (SCALE 7-10) (CANNOT TAKE NSAIDS). INDICATION S: CHRONIC PAIN traMADoL 50 2022-2022- No 2745 50mg TAKE 1 [facility] vers mg tablet 11-21 TABLET BY ity of 00:00: 00:00 MOUTH [place] 00 :00 EVERY 6 Medical (SIX) Branch HOURS NEEDED FOR PAIN (SCALE 7-10) (CANNOT TAKE NSAIDS). INDICATION S: CHRONIC PAIN rosuvastati 2022-2022- No 20mg Take 20 mg [facility] n 20 mg 1-24 -24 by mouth ity of tablet 10:12: 00:00 at [place] 05 :00 bedtime. Medical Branch rosuvastati 2022-2022- No 20mg Take 20 mg [facility] n 20 mg 1-24 -24 by mouth ity of tablet 10:12: 00:00 at [place] 05 :00 bedtime. Medical Branch rosuvastati 2022-0 Yes [id number] 20mg Take 1 [facility] n 20 mg 1-24 tablet by ity of tablet 00:00: mouth at [place] [address] bedtime. Medical Branch rosuvastati 2022-0 Yes [id number] 20mg Take 1 [facility] n 20 mg 1-24 tablet by ity of tablet 00:00: mouth at [place] [address] bedtime. Medical Branch rosuvastati 2022-0 Yes [id number] 20mg Take 1 [facility] n 20 mg 1-24 tablet by ity of tablet 00:00: mouth at [place] [address] bedtime. Medical Branch rosuvastati 2022-0 Yes [id number] 20mg Take 1 [facility] n 20 mg 1-24 tablet by ity of tablet 00:00: mouth at [place] [address] bedtime. Medical Branch rosuvastati 2022-0 Yes [id number] 20mg Take 1 [facility] n 20 mg 1-24 tablet by ity of tablet 00:00: mouth at [place] bedtime. Medical Branch rosuvastati 2022-0 Yes [id number] 20mg Take 1 [facility] n 20 mg 1-24 tablet by ity of tablet 00:00: mouth at [place] bedtime. Medical Branch rosuvastati 2022-0 Yes [id number] 20mg Take 1 [facility] n 20 mg 1-24 tablet by ity of tablet 00:00: mouth at [place] bedtime. Medical Branch rosuvastati 2022-0 Yes [id number] 20mg Take 1 [facility] n 20 mg 1-24 tablet by ity of tablet 00:00: mouth at [place] bedtime. Medical Branch rosuvastati 2022-0 Yes [id number] 20mg Take 1 [facility] n 20 mg 1-24 tablet by ity of tablet 00:00: mouth at [place] bedtime. Medical Branch rosuvastati 2022-0 Yes [id number] 20mg Take 1 [facility] n 20 mg 1-24 tablet by ity of tablet 00:00: mouth at [place] bedtime. Medical Branch rosuvastati 2022-0 Yes [id number] 20mg Take 1 [facility] n 20 mg 1-24 tablet by ity of tablet 00:00: mouth at [place] [address] bedtime. Medical Branch rosuvastati 2022-0 Yes [id number] 20mg Take 1 [facility] n 20 mg 1-24 tablet by ity of tablet 00:00: mouth at [place] [address] bedtime. Medical Branch rosuvastati 2022-0 Yes [id number] 20mg Take 1 [facility] n 20 mg 1-24 tablet by ity of tablet 00:00: mouth at [place] [address] bedtime. Medical Branch rosuvastati 2022-0 Yes [id number] 20mg Take 1 [facility] n 20 mg 1-24 tablet by ity of tablet 00:00: mouth at [place] [address] bedtime. Medical Branch rosuvastati 2022-0 Yes [id number] 20mg Take 1 [facility] n 20 mg 1-24 tablet by ity of tablet 00:00: mouth at [place] [address] bedtime. Medical Branch rosuvastati 2022-0 Yes [id number] 20mg Take 1 [facility] n 20 mg 1-24 tablet by ity of tablet 00:00: mouth at [place] [address] bedtime. Medical Branch rosuvastati 2022-0 Yes [id number] 20mg Take 1 [facility] n 20 mg 1-24 tablet by ity of tablet 00:00: mouth at [place] [address] bedtime. Medical Branch rosuvastati 2022-0 Yes [id number] 20mg Take 1 [facility] n 20 mg 1-24 tablet by ity of tablet 00:00: mouth at [place] [address] bedtime. Medical Branch rosuvastati 2022-0 Yes [id number] 20mg Take 1 [facility] n 20 mg 1-24 tablet by ity of tablet 00:00: mouth at [place] [address] bedtime. Medical Branch rosuvastati 2022-0 Yes [id number] 20mg Take 1 [facility] n 20 mg 1-24 tablet by ity of tablet 00:00: mouth at [place] [address] bedtime. Medical Branch rosuvastati 2022-0 Yes [id number] 20mg Take 1 [facility] n 20 mg 1-24 tablet by ity of tablet 00:00: mouth at [place] [address] bedtime. Medical Branch rosuvastati 2022-0 Yes [id number] 20mg Take 1 [facility] n 20 mg 1-24 tablet by ity of tablet 00:00: mouth at [place] [address] bedtime. Medical Branch rosuvastati 2022-0 Yes [id number] 20mg Take 1 [facility] n 20 mg 1-24 tablet by ity of tablet 00:00: mouth at [place] [address] bedtime. Medical Branch rosuvastati 2022-0 Yes [id number] 20mg Take 1 [facility] n 20 mg 1-24 tablet by ity of tablet 00:00: mouth at [place] [address] bedtime. Medical Branch rosuvastati 2022-0 Yes [id number] 20mg Take 1 [facility] n 20 mg 1-24 tablet by ity of tablet 00:00: mouth at [place] [address] bedtime. Medical Branch rosuvastati 2022-0 Yes [id number] 20mg Take 1 [facility] n 20 mg 1-24 tablet by ity of tablet 00:00: mouth at [place] [address] bedtime. Medical Branch rosuvastati 2022-0 Yes [id number] 20mg Take 1 [facility] n 20 mg 1-24 tablet by ity of tablet 00:00: mouth at [place] [address] bedtime. Medical Branch rosuvastati 2022-0 Yes [id number] 20mg Take 1 [facility] n 20 mg 1-24 tablet by ity of tablet 00:00: mouth at [place] [address] bedtime. Medical Branch rosuvastati 2022-0 Yes [id number] 20mg Take 1 [facility] n 20 mg 1-24 tablet by ity of tablet 00:00: mouth at [place] [address] bedtime. Medical Branch rosuvastati 2022-0 Yes [id number] 20mg Take 1 [facility] n 20 mg 1-24 tablet by ity of tablet 00:00: mouth at [place] [address] bedtime. Medical Branch rosuvastati 2022-0 Yes [id number] 20mg Take 1 [facility] n 20 mg 1-24 tablet by ity of tablet 00:00: mouth at [place] [address] bedtime. Medical Branch rosuvastati 2022-0 Yes [id number] 20mg Take 1 [facility] n 20 mg 1-24 tablet by ity of tablet 00:00: mouth at [place] [address] bedtime. Medical Branch rosuvastati 2022-0 Yes [id number] 20mg Take 1 [facility] n 20 mg 1-24 tablet by ity of tablet 00:00: mouth at [place] [address] bedtime. Medical Branch rosuvastati 2022-0 Yes [id number] 20mg Take 1 [facility] n 20 mg 1-24 tablet by ity of tablet 00:00: mouth at [place] [address] bedtime. Medical Branch rosuvastati 2022-0 Yes [id number] 20mg Take 1 [facility] n 20 mg 1-24 tablet by ity of tablet 00:00: mouth at [place] [address] bedtime. Medical Branch rosuvastati 2022-0 Yes [id number] 20mg Take 1 [facility] n 20 mg 1-24 tablet by ity of tablet 00:00: mouth at [place] [address] bedtime. Medical Branch rosuvastati 2022-0 Yes [id number] 20mg Take 1 [facility] n 20 mg 1-24 tablet by ity of tablet 00:00: mouth at [place] [address] bedtime. Medical Branch rosuvastati 2022-0 Yes [id number] 20mg Take 1 [facility] n 20 mg 1-24 tablet by ity of tablet 00:00: mouth at [place] [address] bedtime. Medical Branch rosuvastati 2022-0 Yes [id number] 20mg Take 1 [facility] n 20 mg 1-24 tablet by ity of tablet 00:00: mouth at [place] [address] bedtime. Medical Branch rosuvastati 2022-0 Yes [id number] 20mg Take 1 [facility] n 20 mg 1-24 tablet by ity of tablet 00:00: mouth at [place] [address] bedtime. Medical Branch rosuvastati 2022-0 Yes [id number] 20mg Take 1 [facility] n 20 mg 1-24 tablet by ity of tablet 00:00: mouth at [place] [address] bedtime. Medical Branch rosuvastati 2022-0 Yes [id number] 20mg Take 1 [facility] n 20 mg 1-24 tablet by ity of tablet 00:00: mouth at [place] [address] bedtime. Medical Branch rosuvastati 2022-0 Yes [id number] 20mg Take 1 [facility] n 20 mg 1-24 tablet by ity of tablet 00:00: mouth at [place] [address] bedtime. Medical Branch rosuvastati 2022-0 Yes [id number] 20mg Take 1 [facility] n 20 mg 1-24 tablet by ity of tablet 00:00: mouth at [place] [address] bedtime. Medical Branch rosuvastati 2022-0 Yes [id number] 20mg Take 1 [facility] n 20 mg 1-24 tablet by ity of tablet 00:00: mouth at [place] [address] bedtime. Medical Branch rosuvastati 2022-0 Yes [id number] 20mg Take 1 [facility] n 20 mg 1-24 tablet by ity of tablet 00:00: mouth at [place] [address] bedtime. Medical Branch rosuvastati 2022-0 Yes [id number] 20mg Take 1 [facility] n 20 mg 1-24 tablet by ity of tablet 00:00: mouth at [place] [address] bedtime. Medical Branch rosuvastati 2022-0 Yes [id number] 20mg Take 1 [facility] n 20 mg 1-24 tablet by ity of tablet 00:00: mouth at [place] [address] bedtime. Medical Branch rosuvastati 2022-0 Yes [id number] 20mg Take 1 [facility] n 20 mg 1-24 tablet by ity of tablet 00:00: mouth at [place] [address] bedtime. Medical Branch rosuvastati 2022-0 Yes [id number] 20mg Take 1 [facility] n 20 mg 1-24 tablet by ity of tablet 00:00: mouth at [place] [address] bedtime. Medical Branch rosuvastati 2022-0 Yes [id number] 20mg Take 1 [facility] n 20 mg 1-24 tablet by ity of tablet 00:00: mouth at [place] [address] bedtime. Medical Branch rosuvastati 2022-0 Yes [id number] 20mg Take 1 [facility] n 20 mg 1-24 tablet by ity of tablet 00:00: mouth at [place] [address] bedtime. Medical Branch rosuvastati Yes [id number] 20mg Take 1 [facility] n 20 mg 1-24 tablet by ity of tablet 00:00: mouth at [place] [address] bedtime. Medical Branch rosuvastati Yes [id number] 20mg Take 1 [facility] n 20 mg 1-24 tablet by ity of tablet 00:00: mouth at [place] [address] bedtime. Medical Branch rosuvastati Yes [id number] 20mg Take 1 [facility] n 20 mg 1-24 tablet by ity of tablet 00:00: mouth at [place] [address] bedtime. Medical Branch rosuvastati Yes [id number] 20mg Take 1 [facility] n 20 mg 1-24 tablet by ity of tablet 00:00: mouth at [place] [address] bedtime. Medical Branch rosuvastati Yes [id number] 20mg Take 1 [facility] n 20 mg 1-24 tablet by ity of tablet 00:00: mouth at [place] [address] bedtime. Medical Branch rosuvastati Yes [id number] 20mg Take 1 [facility] n 20 mg 1-24 tablet by ity of tablet 00:00: mouth at [place] [address] bedtime. Medical Branch rosuvastati Yes [id number] 20mg Take 1 [facility] n 20 mg 1-24 tablet by ity of tablet 00:00: mouth at [place] [address] bedtime. Medical Branch rosuvastati Yes [id number] 20mg Take 1 [facility] n 20 mg 1-24 tablet by ity of tablet 00:00: mouth at [place] [address] bedtime. Medical Branch rosuvastati Yes [id number] 20mg Take 1 [facility] n 20 mg 1-24 tablet by ity of tablet 00:00: mouth at [place] [address] bedtime. Medical Branch rifAXIMin 2022- No [id number] 550mg Take 1 [facility] (XIFAXAN) 1-24 -26 tablet by ity of 550 mg 00:00: 04:59 mouth in [place] tablet 00 :00 the Medical morning Branch and 1 tablet in the evening. Do all this for 60 days. Continue refills with Hepatology rifAXIMin 2022-2022- No [id number] 550mg Take 1 [facility] (XIFAXAN) 1-24 03-26 tablet by ity of 550 mg 00:00: 04:59 mouth in [place] tablet 00 :00 the Medical morning Branch and 1 tablet in the evening. Do all this for 60 days. Continue refills with Hepatology rifAXIMin 2022-0 3- No [id number] 550mg Take 1 [facility] (XIFAXAN) 11-13 tablet by ity of 550 mg 00:00: 04:59 mouth in [place] tablet 00 :00 the Medical morning Branch and 1 tablet in the evening. Do all this for 60 days. Continue refills with Hepatology rifAXIMin 2022-0 3- No [id number] 550mg Take 1 [facility] (XIFAXAN) 11-13 tablet by ity of 550 mg 00:00: 04:59 mouth in [place] tablet 00 :00 the Medical morning Branch and 1 tablet in the evening. Do all this for 60 days. Continue refills with Hepatology rifAXIMin 2022-0 3- No [id number] 550mg Take 1 [facility] (XIFAXAN) 11-13 tablet by ity of 550 mg 00:00: 04:59 mouth in [place] tablet 00 :00 the Medical morning Branch and 1 tablet in the evening. Do all this for 60 days. Continue refills with Hepatology rifAXIMin 2022-0 3- No [id number] 550mg Take 1 [facility] (XIFAXAN) 11-13 tablet by ity of 550 mg 00:00: 04:59 mouth in [place] tablet 00 :00 the Medical morning Branch and 1 tablet in the evening. Do all this for 60 days. Continue refills with Hepatology rifAXIMin 2022-0 3- No [id number] 550mg Take 1 [facility] (XIFAXAN) 11-13 tablet by ity of 550 mg 00:00: 04:59 mouth in [place] tablet 00 :00 the Medical morning Branch and 1 tablet in the evening. Do all this for 60 days. Continue refills with Hepatology rifAXIMin 2022-0 3- No [id number] 550mg Take 1 [facility] (XIFAXAN) 11-13 tablet by ity of 550 mg 00:00: 04:59 mouth in [place] tablet 00 :00 the Medical morning Branch and 1 tablet in the evening. Do all this for 60 days. Continue refills with Hepatology rifAXIMin 2023-0 2023- No [id number] 550mg Take 1 [facility] (XIFAXAN) 11-13 tablet by ity of 550 mg 00:00: 04:59 mouth in [place] tablet 00 :00 the Medical morning Branch and 1 tablet in the evening. Do all this for 60 days. Continue refills with Hepatology rifAXIMin 2022-0 2023- No [id number] 550mg Take 1 [facility] (XIFAXAN) 11-13 tablet by ity of 550 mg 00:00: 04:59 mouth in [place] tablet 00 :00 the Medical morning Branch and 1 tablet in the evening. Do all this for 60 days. Continue refills with Hepatology rifAXIMin 2022-0 2022- No [id number] 550mg Take 1 [facility] (XIFAXAN) 11-13 tablet by ity of 550 mg 00:00: 04:59 mouth in [place] tablet 00 :00 the Medical morning Branch and 1 tablet in the evening. Do all this for 60 days. Continue refills with Hepatology rifAXIMin 2022-0 3- No [id number] 550mg Take 1 [facility] (XIFAXAN) 11-13 tablet by ity of 550 mg 00:00: 04:59 mouth in [place] tablet 00 :00 the Medical morning Branch and 1 tablet in the evening. Do all this for 60 days. Continue refills with Hepatology rifAXIMin 2022-0 3- No [id number] 550mg Take 1 [facility] (XIFAXAN) 11-13 tablet by ity of 550 mg 00:00: 04:59 mouth in [place] tablet 00 :00 the Medical morning Branch and 1 tablet in the evening. Do all this for 60 days. Continue refills with Hepatology rifAXIMin 3-0 3- No [id number] 550mg Take 1 [facility] (XIFAXAN) 11-13 tablet by ity of 550 mg 00:00: 04:59 mouth in [place] tablet 00 :00 the Medical morning Branch and 1 tablet in the evening. Do all this for 60 days. Continue refills with Hepatology rifAXIMin 2023-0 3- No [id number] 550mg Take 1 [facility] (XIFAXAN) 11-13 tablet by ity of 550 mg 00:00: 04:59 mouth in [place] tablet 00 :00 the Medical morning Branch and 1 tablet in the evening. Do all this for 60 days. Continue refills with Hepatology rifAXIMin 2022-0 2023- No [id number] 550mg Take 1 [facility] (XIFAXAN) 11-13 tablet by ity of 550 mg 00:00: 04:59 mouth in [place] tablet 00 :00 the Medical morning Branch and 1 tablet in the evening. Do all this for 60 days. Continue refills with Hepatology rifAXIMin 2022-0 3- No [id number] 550mg Take 1 [facility] (XIFAXAN) 11-13 tablet by ity of 550 mg 00:00: 04:59 mouth in [place] tablet 00 :00 the Medical morning Branch and 1 tablet in the evening. Do all this for 60 days. Continue refills with Hepatology rifAXIMin 2022-0 3- No [id number] 550mg Take 1 [facility] (XIFAXAN) 11-13 tablet by ity of 550 mg 00:00: 04:59 mouth in [place] tablet 00 :00 the Medical morning Branch and 1 tablet in the evening. Do all this for 60 days. Continue refills with Hepatology rifAXIMin 2022-0 3- No [id number] 550mg Take 1 [facility] (XIFAXAN) 11-13 tablet by ity of 550 mg 00:00: 04:59 mouth in [place] tablet 00 :00 the Medical morning Branch and 1 tablet in the evening. Do all this for 60 days. Continue refills with Hepatology rifAXIMin 3-0 3- No [id number] 550mg Take 1 [facility] (XIFAXAN) 11-13 tablet by ity of 550 mg 00:00: 04:59 mouth in [place] tablet 00 :00 the Medical morning Branch and 1 tablet in the evening. Do all this for 60 days. Continue refills with Hepatology rifAXIMin 3-0 2023- No [id number] 550mg Take 1 [facility] (XIFAXAN) 11-13 tablet by ity of 550 mg 00:00: 04:59 mouth in [place] tablet 00 :00 the Medical morning Branch and 1 tablet in the evening. Do all this for 60 days. Continue refills with Hepatology rifAXIMin 2023-0 2023- No [id number] 550mg Take 1 [facility] (XIFAXAN) 11-13 tablet by ity of 550 mg 00:00: 04:59 mouth in [place] tablet 00 :00 the Medical morning Branch and 1 tablet in the evening. Do all this for 60 days. Continue refills with Hepatology rifAXIMin 2022-0 3- No [id number] 550mg Take 1 [facility] (XIFAXAN) 11-13 tablet by ity of 550 mg 00:00: 04:59 mouth in [place] tablet 00 :00 the Medical morning Branch and 1 tablet in the evening. Do all this for 60 days. Continue refills with Hepatology rifAXIMin 2022-0 3- No [id number] 550mg Take 1 [facility] (XIFAXAN) 11-13 tablet by ity of 550 mg 00:00: 04:59 mouth in [place] tablet 00 :00 the Medical morning Branch and 1 tablet in the evening. Do all this for 60 days. Continue refills with Hepatology rifAXIMin 2022-0 3- No [id number] 550mg Take 1 [facility] (XIFAXAN) 11-13 tablet by ity of 550 mg 00:00: 04:59 mouth in [place] tablet 00 :00 the Medical morning Branch and 1 tablet in the evening. Do all this for 60 days. Continue refills with Hepatology rifAXIMin 3-0 3- No [id number] 550mg Take 1 [facility] (XIFAXAN) 11-13 tablet by ity of 550 mg 00:00: 04:59 mouth in [place] tablet 00 :00 the Medical morning Branch and 1 tablet in the evening. Do all this for 60 days. Continue refills with Hepatology rifAXIMin 3-0 3- No [id number] 550mg Take 1 [facility] (XIFAXAN) 11-13 tablet by ity of 550 mg 00:00: 04:59 mouth in [place] tablet 00 :00 the Medical morning Branch and 1 tablet in the evening. Do all this for 60 days. Continue refills with Hepatology rifAXIMin 2023-0 3- No [id number] 550mg Take 1 [facility] (XIFAXAN) 11-13 tablet by ity of 550 mg 00:00: 04:59 mouth in [place] tablet 00 :00 the Medical morning Branch and 1 tablet in the evening. Do all this for 60 days. Continue refills with Hepatology rifAXIMin 2022-0 3- No [id number] 550mg Take 1 [facility] (XIFAXAN) 11-13 tablet by ity of 550 mg 00:00: 04:59 mouth in [place] tablet 00 :00 the Medical morning Branch and 1 tablet in the evening. Do all this for 60 days. Continue refills with Hepatology rifAXIMin 2022-0 2022- No [id number] 550mg Take 1 [facility] (XIFAXAN) 11-13 tablet by ity of 550 mg 00:00: 04:59 mouth in [place] tablet 00 :00 the Medical morning Branch and 1 tablet in the evening. Do all this for 60 days. Continue refills with Hepatology rifAXIMin 2022-0 3- No [id number] 550mg Take 1 [facility] (XIFAXAN) 11-13 tablet by ity of 550 mg 00:00: 04:59 mouth in [place] tablet 00 :00 the Medical morning Branch and 1 tablet in the evening. Do all this for 60 days. Continue refills with Hepatology rifAXIMin 3-0 3- No [id number] 550mg Take 1 [facility] (XIFAXAN) 11-13 tablet by ity of 550 mg 00:00: 04:59 mouth in [place] tablet 00 :00 the Medical morning Branch and 1 tablet in the evening. Do all this for 60 days. Continue refills with Hepatology rifAXIMin 3-0 3- No [id number] 550mg Take 1 [facility] (XIFAXAN) 11-13 tablet by ity of 550 mg 00:00: 04:59 mouth in [place] tablet 00 :00 the Medical morning Branch and 1 tablet in the evening. Do all this for 60 days. Continue refills with Hepatology rifAXIMin 3-0 2023- No [id number] 550mg Take 1 [facility] (XIFAXAN) 11-13 tablet by ity of 550 mg 00:00: 04:59 mouth in [place] tablet 00 :00 the Medical morning Branch and 1 tablet in the evening. Do all this for 60 days. Continue refills with Hepatology rifAXIMin 2022- No [id number] 550mg Take 1 [facility] (XIFAXAN) 11-13 tablet by ity of 550 mg 00:00: 04:59 mouth in [place] tablet 00 :00 the Medical morning Branch and 1 tablet in the evening. Do all this for 60 days. Continue refills with Hepatology rifAXIMin 2022- No [id number] 550mg Take 1 [facility] (XIFAXAN) 11-13 tablet by ity of 550 mg 00:00: 04:59 mouth in [place] tablet 00 :00 the [facility] morning Branch and 1 tablet in the evening. Do all this for 60 days. Continue refills with Hepatology rifAXIMin 2022- No [id number] 550mg Take 1 [facility] (XIFAXAN) 11-13 tablet by ity of 550 mg 00:00: 04:59 mouth in [place] tablet 00 :00 the [facility] morning Branch and 1 tablet in the evening. Do all this for 60 days. Continue refills with Hepatology rifAXIMin 2022- No [id number] 550mg Take 1 [facility] (XIFAXAN) 11-13 tablet by ity of 550 mg 00:00: 04:59 mouth in [place] tablet 00 :00 the [facility] morning Branch and 1 tablet in the evening. Do all this for 60 days. Continue refills with Hepatology rifAXIMin 2022- No [id number] 550mg Take 1 [facility] (XIFAXAN) 11-13 tablet by ity of 550 mg 00:00: 00:00 mouth in [place] tablet 00 :00 the [facility] morning Branch and 1 tablet in the evening. Do all this for 60 days. Continue refills with Hepatology Insulin Yes [id number] 54U inject 54 U nivers Lispro, 1-23 Units ity of Human, 00:00: under the [place] (HUMALOG 00 skin in Medical U-100 the Branch INSULIN) morning. 100 unit/mL cartridge Insulin 2023-0 Yes [id number] 54U inject 54 U nivers Lispro, 1-23 Units ity of Human, 00:00: under the [place] (HUMALOG 00 skin in Medical U-100 the Branch INSULIN) morning. 100 unit/mL cartridge Insulin 2022-0 Yes [id number] 54U inject 54 U nivers Lispro, 1-23 Units ity of Human, 00:00: under the [place] (HUMALOG 00 skin in Medical U-100 the Branch INSULIN) morning. 100 unit/mL cartridge Insulin 2022-0 Yes [id number] 54U inject 54 U nivers Lispro, 1-23 Units ity of Human, 00:00: under the [place] (HUMALOG 00 skin in Medical U-100 the Branch INSULIN) morning. 100 unit/mL cartridge Insulin 2022-0 Yes [id number] 54U inject 54 U nivers Lispro, 1-23 Units ity of Human, 00:00: under the [place] (HUMALOG 00 skin in Medical U-100 the Branch INSULIN) morning. 100 unit/mL cartridge Insulin 2022-0 Yes [id number] 54U inject 54 U nivers Lispro, 1-23 Units ity of Human, 00:00: under the [place] (HUMALOG 00 skin in Medical U-100 the Branch INSULIN) morning. 100 unit/mL cartridge Insulin 2022-0 Yes [id number] 54U inject 54 U nivers Lispro, 1-23 Units ity of Human, 00:00: under the [place] (HUMALOG 00 skin in Medical U-100 the Branch INSULIN) morning. 100 unit/mL cartridge Insulin 2022-0 Yes [id number] 54U inject 54 U nivers Lispro, 1-23 Units ity of Human, 00:00: under the [place] (HUMALOG 00 skin in Medical U-100 the Branch INSULIN) morning. 100 unit/mL cartridge Insulin 2022-0 Yes [id number] 54U inject 54 U nivers Lispro, 1-23 Units ity of Human, 00:00: under the [place] (HUMALOG 00 skin in Medical U-100 the Branch INSULIN) morning. 100 unit/mL cartridge Insulin 2022-0 Yes [id number] 54U inject 54 U nivers Lispro, 1-23 Units ity of Human, 00:00: under the [place] (HUMALOG 00 skin in Medical U-100 the Branch INSULIN) morning. 100 unit/mL cartridge Insulin 2022-0 Yes [id number] 54U inject 54 U nivers Lispro, 1-23 Units ity of Human, 00:00: under the [place] (HUMALOG 00 skin in Medical U-100 the Branch INSULIN) morning. 100 unit/mL cartridge Insulin 2022-0 Yes [id number] 54U inject 54 U nivers Lispro, 1-23 Units ity of Human, 00:00: under the [place] (HUMALOG 00 skin in Medical U-100 the Branch INSULIN) morning. 100 unit/mL cartridge Insulin 2022-0 Yes [id number] inject 54 U nivers Lispro, 1-23 Units ity of Human, 00:00: under the [place] (HUMALOG 00 skin in Medical U-100 the Branch INSULIN) morning. 100 unit/mL cartridge Insulin 2022-0 Yes [id number] 54U inject 54 U nivers Lispro, 1-23 Units ity of Human, 00:00: under the [place] (HUMALOG 00 skin in Medical U-100 the Branch INSULIN) morning. 100 unit/mL cartridge Insulin 2022-0 Yes [id number] 54U inject 54 U nivers Lispro, 1-23 Units ity of Human, 00:00: under the [place] (HUMALOG 00 skin in Medical U-100 the Branch INSULIN) morning. 100 unit/mL cartridge Insulin 2022-0 Yes [id number] 54U inject 54 U nivers Lispro, 1-23 Units ity of Human, 00:00: under the [place] (HUMALOG 00 skin in Medical U-100 the Branch INSULIN) morning. 100 unit/mL cartridge Insulin 2022-0 Yes [id number] 54U inject 54 U nivers Lispro, 1-23 Units ity of Human, 00:00: under the [place] (HUMALOG 00 skin in Medical U-100 the Branch INSULIN) morning. 100 unit/mL cartridge Insulin 2022-0 Yes [id number] 54U inject 54 U nivers Lispro, 1-23 Units ity of Human, 00:00: under the [place] (HUMALOG 00 skin in Medical U-100 the Branch INSULIN) morning. 100 unit/mL cartridge Insulin 2022-0 Yes [id number] 54U inject 54 U nivers Lispro, 1-23 Units ity of Human, 00:00: under the [place] (HUMALOG 00 skin in Medical U-100 the Branch INSULIN) morning. 100 unit/mL cartridge Insulin 2022-0 Yes [id number] 54U inject 54 U nivers Lispro, 1-23 Units ity of Human, 00:00: under the [place] (HUMALOG 00 skin in Medical U-100 the Branch INSULIN) morning. 100 unit/mL cartridge Insulin 2022-0 Yes [id number] 54U inject 54 U nivers Lispro, 1-23 Units ity of Human, 00:00: under the [place] (HUMALOG 00 skin in Medical U-100 the Branch INSULIN) morning. 100 unit/mL cartridge Insulin 2022-0 Yes [id number] 54U inject 54 U nivers Lispro, 1-23 Units ity of Human, 00:00: under the [place] (HUMALOG 00 skin in Medical U-100 the Branch INSULIN) morning. 100 unit/mL cartridge Insulin 2022-0 Yes [id number] 54U inject 54 U nivers Lispro, 1-23 Units ity of Human, 00:00: under the [place] (HUMALOG 00 skin in Medical U-100 the Branch INSULIN) morning. 100 unit/mL cartridge Insulin 2022-0 Yes [id number] 54U inject 54 U nivers Lispro, 1-23 Units ity of Human, 00:00: under the [place] (HUMALOG 00 skin in Medical U-100 the Branch INSULIN) morning. 100 unit/mL cartridge Insulin 2022-0 Yes [id number] 54U inject 54 U nivers Lispro, 1-23 Units ity of Human, 00:00: under the [place] (HUMALOG 00 skin in Medical U-100 the Branch INSULIN) morning. 100 unit/mL cartridge Insulin 2022-0 Yes [id number] 54U inject 54 U nivers Lispro, 1-23 Units ity of Human, 00:00: under the [place] (HUMALOG 00 skin in Medical U-100 the Branch INSULIN) morning. 100 unit/mL cartridge Insulin 2022-0 Yes [id number] 54U inject 54 U nivers Lispro, 1-23 Units ity of Human, 00:00: under the [place] (HUMALOG 00 skin in Medical U-100 the Branch INSULIN) morning. 100 unit/mL cartridge Insulin 2022-0 Yes [id number] 54U inject 54 U nivers Lispro, 1-23 Units ity of Human, 00:00: under the [place] (HUMALOG 00 skin in Medical U-100 the Branch INSULIN) morning. 100 unit/mL cartridge Insulin 2022-0 Yes [id number] 54U inject 54 U nivers Lispro, 1-23 Units ity of Human, 00:00: under the [place] (HUMALOG 00 skin in Medical U-100 the Branch INSULIN) morning. 100 unit/mL cartridge Insulin 2022-0 Yes [id number] 54U inject 54 U nivers Lispro, 1-23 Units ity of Human, 00:00: under the [place] (HUMALOG 00 skin in Medical U-100 the Branch INSULIN) morning. 100 unit/mL cartridge Insulin 2022-0 Yes [id number] 54U inject 54 U nivers Lispro, 1-23 Units ity of Human, 00:00: under the [place] (HUMALOG 00 skin in Medical U-100 the Branch INSULIN) morning. 100 unit/mL cartridge Insulin 2022-0 Yes [id number] 54U inject 54 U nivers Lispro, 1-23 Units ity of Human, 00:00: under the [place] (HUMALOG 00 skin in Medical U-100 the Branch INSULIN) morning. 100 unit/mL cartridge Insulin 2022-0 Yes [id number] 54U inject 54 U nivers Lispro, 1-23 Units ity of Human, 00:00: under the [place] (HUMALOG 00 skin in Medical U-100 the Branch INSULIN) morning. 100 unit/mL cartridge Insulin 2022-0 Yes [id number] 54U inject 54 U nivers Lispro, 1-23 Units ity of Human, 00:00: under the [place] (HUMALOG 00 skin in Medical U-100 the Branch INSULIN) morning. 100 unit/mL cartridge Insulin 2022-0 Yes [id number] 54U inject 54 U nivers Lispro, 1-23 Units ity of Human, 00:00: under the [place] (HUMALOG 00 skin in Medical U-100 the Branch INSULIN) morning. 100 unit/mL cartridge Insulin 2022-0 Yes [id number] 54U inject 54 U nivers Lispro, 1-23 Units ity of Human, 00:00: under the [place] (HUMALOG 00 skin in Medical U-100 the Branch INSULIN) morning. 100 unit/mL cartridge Insulin 2022-0 Yes [id number] 54U inject 54 U nivers Lispro, 1-23 Units ity of Human, 00:00: under the [place] (HUMALOG 00 skin in Medical U-100 the Branch INSULIN) morning. 100 unit/mL cartridge Insulin 2022-0 Yes [id number] 54U inject 54 U nivers Lispro, 1-23 Units ity of Human, 00:00: under the [place] (HUMALOG 00 skin in Medical U-100 the Branch INSULIN) morning. 100 unit/mL cartridge Insulin 2022-0 Yes [id number] 54U inject 54 U nivers Lispro, 1-23 Units ity of Human, 00:00: under the [place] (HUMALOG 00 skin in Medical U-100 the Branch INSULIN) morning. 100 unit/mL cartridge Insulin 2022-0 Yes [id number] 54U inject 54 U nivers Lispro, 1-23 Units ity of Human, 00:00: under the [place] (HUMALOG 00 skin in Medical U-100 the Branch INSULIN) morning. 100 unit/mL cartridge Insulin 2022-0 Yes [id number] 54U inject 54 U nivers Lispro, 1-23 Units ity of Human, 00:00: under the [place] (HUMALOG 00 skin in Medical U-100 the Branch INSULIN) morning. 100 unit/mL cartridge Insulin 2022-0 Yes [id number] 54U inject 54 U nivers Lispro, 1-23 Units ity of Human, 00:00: under the [place] (HUMALOG 00 skin in Medical U-100 the Branch INSULIN) morning. 100 unit/mL cartridge Insulin 2022-0 Yes [id number] 54U inject 54 U nivers Lispro, 1-23 Units ity of Human, 00:00: under the [place] (HUMALOG 00 skin in Medical U-100 the Branch INSULIN) morning. 100 unit/mL cartridge Insulin 2022-0 Yes [id number] 54U inject 54 U nivers Lispro, 1-23 Units ity of Human, 00:00: under the [place] (HUMALOG 00 skin in Medical U-100 the Branch INSULIN) morning. 100 unit/mL cartridge Insulin 2022-0 Yes [id number] 54U inject 54 U nivers Lispro, 1-23 Units ity of Human, 00:00: under the [place] (HUMALOG 00 skin in Medical U-100 the Branch INSULIN) morning. 100 unit/mL cartridge Insulin 2022-0 Yes [id number] 54U inject 54 U nivers Lispro, 1-23 Units ity of Human, 00:00: under the [place] (HUMALOG 00 skin in Medical U-100 the Branch INSULIN) morning. 100 unit/mL cartridge Insulin 2022-0 Yes [id number] 54U inject 54 U nivers Lispro, 1-23 Units ity of Human, 00:00: under the [place] (HUMALOG 00 skin in Medical U-100 the Branch INSULIN) morning. 100 unit/mL cartridge Insulin 2022-0 Yes [id number] 54U inject 54 U nivers Lispro, 1-23 Units ity of Human, 00:00: under the [place] (HUMALOG 00 skin in Medical U-100 the Branch INSULIN) morning. 100 unit/mL cartridge Insulin 0 2023- No [id number] 54U inject 54 [facility] Lispro, 1-23 03-29 Units ity of Human, 00:00: 00:00 under the [place] (HUMALOG 00 :00 skin in Medical U-100 the Branch INSULIN) morning. 100 unit/mL cartridge MOUNJARO 2022-0 Yes [id number] INJECT 2.5 [facility] 2.5 mg/0.5 1-20 MG ity of mL PnIj 00:[place] US[place] [facility] WEEKLY FOR Branch 4 WEEKS AND THEN SWITCH TO 5 MG DOSE MOUNJARO 2022-0 Yes [id number] INJECT 2.5 [facility] 2.5 mg/0.5 1-20 MG ity of mL PnIj 00:00[place] US[place] [facility] WEEKLY FOR [facility] 4 WEEKS AND THEN SWITCH TO 5 MG DOSE MOUNJARO 2022-0 Yes [id number] INJECT 2.5 [facility] 2.5 mg/0.5 1-20 MG ity of mL PnIj 00:00: [place] US[place] [facility] WEEKLY FOR [facility] 4 WEEKS AND THEN SWITCH TO 5 MG DOSE MOUNJARO 2023-0 Yes [id number] INJECT 2.5 [facility] 2.5 mg/0.5 1-20 MG ity of mL PnIj 00:00: [place] US[place] [facility] WEEKLY FOR Branch 4 WEEKS AND THEN SWITCH TO 5 MG DOSE MOUNJARO 2023-0 Yes [id number] INJECT 2.5 Univers 2.5 mg/0.5 1-20 MG ity of mL PnIj 00:00[place] US[place] [facility] WEEKLY FOR Branch 4 WEEKS AND THEN SWITCH TO 5 MG DOSE MOUNJARO 0 Yes [id number] INJECT 2.5 [facility] 2.5 mg/0.5 1-20 MG ity of mL PnIj 00:00[place] US[place] [facility] WEEKLY FOR Branch 4 WEEKS AND THEN SWITCH TO 5 MG DOSE MOUNJARO 0 Yes [id number] INJECT 2.5 [facility] 2.5 mg/0.5 1-20 MG ity of mL PnIj 00:00: [place] [facility] WEEKLY FOR [facility] 4 WEEKS AND THEN SWITCH TO 5 MG DOSE MOUNJARO 0 Yes [id number] INJECT 2.5 [facility] 2.5 mg/0.5 1-20 MG ity of mL PnIj 00:00: [place] WEEKLY FOR [facility] 4 WEEKS AND THEN SWITCH TO 5 MG DOSE MOUNJARO 0 Yes [id number] INJECT 2.5 [facility] 2.5 mg/0.5 1-20 MG ity of mL PnIj 00:00: [place] WEEKLY FOR [facility] 4 WEEKS AND THEN SWITCH TO 5 MG DOSE MOUNJARO 0 Yes [id number] INJECT 2.5 Univers 2.5 mg/0.5 1-20 MG ity of mL PnIj 00:00: [place] [facility] WEEKLY FOR [facility] 4 WEEKS AND THEN SWITCH TO 5 MG DOSE MOUNJARO 0 Yes [id number] INJECT 2.5 Univers 2.5 mg/0.5 1-20 MG ity of mL PnIj 00:00[place] US[place] [facility] WEEKLY FOR Branch 4 WEEKS AND THEN SWITCH TO 5 MG DOSE MOUNJARO 2022-0 2023- No [id number] INJECT 2.5 Univers 2.5 mg/0.5 1-20 02-07 MG ity of mL PnIj 00:00: 00:00 SUBCUTANEO [place] 00 :00 USLY Medical WEEKLY FOR Branch 4 WEEKS AND THEN SWITCH TO 5 MG DOSE MOUNJARO 2022-0 2023- No [id number] INJECT 2.5 Univers 2.5 mg/0.5 1-20 02-07 MG ity of mL PnIj 00:00: 00:00 SUBCUTANEO [place] 00 :00 USLY Medical WEEKLY FOR Branch 4 WEEKS AND THEN SWITCH TO 5 MG DOSE MOUNJARO 2022-0 3- No [id number] INJECT 2.5 Univers 2.5 mg/0.5 1-20 02-07 MG ity of mL PnIj 00:00: 00:00 SUBCUTANEO [place] 00 :00 USLY Medical WEEKLY FOR Branch 4 WEEKS AND THEN SWITCH TO 5 MG DOSE MOUNJARO 2022-0 3- No [id number] INJECT 2.5 Univers 2.5 mg/0.5 1-20 02-07 MG ity of mL PnIj 00:00: 00:00 SUBCUTANEO [place] 00 :00 USLY Medical WEEKLY FOR Branch 4 WEEKS AND THEN SWITCH TO 5 MG DOSE MOUNJARO 2022-0 3- No [id number] INJECT 2.5 Univers 2.5 mg/0.5 1-20 02-07 MG ity of mL PnIj 00:00: 00:00 SUBCUTANEO [place] 00 :00 USLY Medical WEEKLY FOR Branch 4 WEEKS AND THEN SWITCH TO 5 MG DOSE insulin 0 Yes 1{each} inject 1 Uni [...] PODS, wo) hours. GEN 4,) Crtg insulin 3-0 Yes 1{each} inject 1 Uni vers pump [...] PODS, wo) hours. GEN 4,) Crtg insulin 3-0 Yes 1{each} inject 1 Uni vers pump 1-16 Each under [facility] of cart,cont 00:[place]: [place] inf,BT 00 every 72 Medical (OMNIPOD (seventy-t Branc h DASH PODS, wo) hours. GEN 4,) Crtg insulin 2023-0 2023- No 1{each} inject 1 Un darius pump 1-16 04-22 Each under ity of cart,cont 00:00: 00:00 the skin [place] inf,BT 00 :00 every 72 Medical (OMNIPOD (seventy-t Branc h DASH PODS, wo) hours. GEN 4,) Crtg empaglifloz 2023-0 2023- No 25mg QD Take [address] [facility] 10-29 by [facility] ([facility] 11:37: 00:00 daily. Med ical 25 mg 41 :00 Center tablet empaglifloz 2023-0 2023- No 25mg QD Take [address] [facility] 10-29 by mouth [facility] ([facility]) 11:37: 00:00 daily. Med ical 25 mg 41 :00 Center tablet empaglifloz 2023-0 2023- No 25mg QD Take [address] [facility] 10-29 by mouth [facility] ([facility]) 11:37: 00:00 daily. Med ical 25 mg 41 :00 Center tablet empaglifloz 2023-0 2023- No 25mg QD Take [address] [facility] in 10-29 by mouth [facility] ([facility]) 11:37: 00:00 daily. Med ical 25 mg 41 :00 Center tablet empaglifloz 2022-0 2023- No 25mg QD Take [address] [facility] 10-29 by mouth [facility] ([facility]) 11:37: 00:00 daily. Med ical 25 mg 41 :00 Center tablet empaglifloz 2022-0 2023- No 25mg QD Take [address] [facility] 10-29 by mouth [facility] ([facility]) 11:37: 00:00 daily. Med ical 25 mg 41 :00 Center tablet empaglifloz 2022-0 2023- No 25mg QD Take [address] [facility] in 10-29 by mouth [facility] ([place]) 11:37: 00:00 daily. Med ical 25 mg 41 :00 Center tablet empaglifloz 2022-0 3- No 25mg QD Take [address] [facility] in 10-29 by mouth [facility] ([facility]) 11:37: 00:00 daily. Med ical 25 mg 41 :00 Center tablet empaglifloz 2022-0 2023- No 25mg QD Take [address] [facility] 10-29 by [facility] ([facility]) 11:37: 00:00 daily. Med ical 25 mg 41 :00 Center tablet omeprazole 2022-0 Yes 20mg Q.5D Take [address] [facility] (PriLOSEC) -05 by mouth 2 [facility] 20 MG 13:00: (two) Medical capsule 29 times Center daily. meclizine 0 Yes 25mg Take [address] [facility] (ANTIVERT) 1-05 by mouth 3 [place] [facility] 25 MG 13:00: (three) Medical tablet 29 times Center daily as needed for Dizziness. gabapentin 2022-0 Yes 100mg Q.[id number] Take [address] [facility] (NEURONTIN) -05 [id number] mg by L [facility] 100 MG 13:00: 3D mouth 3 Medical capsule 29 (three) Center times daily. lipase/prot 2022-0 Yes Take by [facility] ease/amylas 1-05 [facility] (CREON 13:00: 6,000 TID Medi vidal ORAL) 29 . Center metoclopram 2022-0 Yes 10mg Take [address] [facility] miracle HCl 1-05 by mouth 4 [facility] (REGLAN) 10 13:00: (four) Medi vidal MG tablet 29 times Center daily as needed for Nausea. promethazin 2022-0 Yes 25mg Take [address] [facility] e 1-05 by mouth [facility] (PHENERGAN) 13:00: every Medic al 25 MG 29 night as Center tablet needed for Nausea. b complex 2022-0 Yes 1{tbl} QD Take [address] [facility] vitamins 1-05 tablet by [facility] tablet 13:00: mouth Medical 29 daily. Center docusate 2022-0 Yes 100mg Take [address] [facility] sodium 1-05 mg by [facility] (COLACE) 13:00: mouth 2 Medica l 100 MG 29 (two) Center capsule times daily as needed for Constipati on. traMADoL 2022-0 Yes 50mg Take [address] [facility] (ULTRAM) 50 1-05 by mouth [facility] mg tablet 13:00: every 6 Medic al 29 (six) Center hours as needed for Pain. metFORMIN 2022-0 Yes 500mg Take [address] [facility] (GLUCOPHAGE 1-05 mg by [facility] ) 500 MG 13:00: mouth 2 Medica l tablet 29 (two) Center times daily with breakfast and dinner. insulin 2022-[address] [facility] lispro 1-05 [facility]aneo [facility] (HumaLOG) 13:00: usly in Medic al 100 unit/mL 29 the Center injection morning. ranitidine 2022-0 Yes 20mg Take [address] HCl (ZANTAC 1-05 by mouth. [facility] ORAL) 13:00: Medical 29 Center omeprazole 3-0 Yes 20mg Q.5D Take [address] (PriLOSEC) 1-05 by mouth 2 [place] 20 MG 13:00: (two) Medical capsule 29 times Center daily. meclizine 2023-0 Yes 25mg Take [address] [facility] [address] [facility] (ANTIVERT) 1-05 by mouth 3 [facility] 25 MG 13:00: (three) Medical tablet 29 times Center daily as needed for Dizziness. gabapentin 3-0 Yes 100mg Q.[id number] Take [address] [facility] (NEURONTIN) 1-05 [id number] mg by [facility] 100 MG 13:00: 3D mouth 3 Medical capsule 29 (three) Center times daily. lipase/prot 2022-0 Yes Take by [facility] ease/amylas 1-05 [facility] (CREON 13:00: 6,000 TID Medi vidal ORAL) 29 . Center metoclopram 2022-0 Yes 10mg Take [address] [facility] miracle HCl 1-05 by mouth 4 [facility] (REGLAN) 10 13:00: (four) Medi vidal MG tablet 29 times Center daily as needed for Nausea. promethazin 2022-0 Yes 25mg Take [address] [facility] e 1-05 by mouth [facility] (PHENERGAN) 13:00: every Medic al 25 MG 29 night as Center tablet needed for Nausea. b complex 2022-0 Yes 1{tbl} QD Take [address] [facility] vitamins 1-05 tablet by [facility] tablet 13:00: mouth Medical 29 daily. Center docusate 2022-0 Yes 100mg Take [address] [facility] sodium 1-05 mg by [facility] (COLACE) 13:00: mouth 2 Medica l 100 MG 29 (two) Center capsule times daily as needed for Constipati on. traMADoL 2022-0 Yes 50mg Take [address] [facility] (ULTRAM) 50 1-05 by mouth [facility] mg tablet 13:00: every 6 Medic al 29 (six) Center hours as needed for Pain. metFORMIN 2022-0 Yes 500mg Take [address] [facility] (GLUCOPHAGE 1-05 mg by [facility] ) 500 MG 13:00: mouth 2 Medica l tablet 29 (two) Center times daily with breakfast and dinner. insulin 2022-[address] [facility] lispro 1-05 [facility]aneo [facility] (HumaLOG) 13:00: usly in Medic al 100 unit/mL 29 the Center injection morning. ranitidine 2022-0 Yes 20mg Take [address] HCl (ZANTAC 1-05 by mouth. [facility] ORAL) 13:00: Medical 29 Center omeprazole 2022-0 Yes 20mg Q.5D Take [address] (PriLOSEC) 1-05 by mouth 2 [place] 20 MG 13:00: (two) Medical capsule 29 times Center daily. meclizine 2022-0 Yes 25mg Take [address] [facility] [address] [facility] (ANTIVERT) 1-05 by mouth 3 [facility] 25 MG 13:00: (three) Medical tablet 29 times Center daily as needed for Dizziness. gabapentin 2022-0 Yes 100mg Q.[id number] Take [address] [facility] (NEURONTIN) 1-05 [id number] mg by L [facility] 100 MG 13:00: 3D mouth 3 Medical capsule 29 (three) Center times daily. lipase/prot 2022-0 Yes Take by [facility] ease/amylas 1-05 [facility] (CREON 13:00: 6,000 TID Medi vidal ORAL) 29 . Center metoclopram 2022-0 Yes 10mg Take [address] [facility] miracle HCl 1-05 by mouth 4 [facility] (REGLAN) 10 13:00: (four) Medi vidal MG tablet 29 times Center daily as needed for Nausea. promethazin 0 Yes 25mg Take [address] [facility] e 1-05 by mouth [facility] (PHENERGAN) 13:00: every Medic al 25 MG 29 night as Center tablet needed for Nausea. b complex 2022-0 Yes 1{tbl} QD Take [address] [facility] vitamins 1-05 tablet by [facility] tablet 13:00: mouth Medical 29 daily. Center docusate 2022-0 Yes 100mg Take [address] [facility] sodium 1-05 mg by [facility] (COLACE) 13:00: mouth 2 Medica l 100 MG 29 (two) Center capsule times daily as needed for Constipati on. traMADoL 2022-0 Yes 50mg Take [address] [facility] (ULTRAM) 50 1-05 by mouth [facility] mg tablet 13:00: every 6 Medic al 29 (six) Center hours as needed for Pain. metFORMIN 2022-0 Yes 500mg Take [address] [facility] (GLUCOPHAGE 1-05 mg by [facility] ) 500 MG 13:00: mouth 2 Medica l tablet 29 (two) Center times daily with breakfast and dinner. insulin 2022-[address] [facility] lispro 1-05 [facility]aneo [facility] (HumaLOG) 13:00: usly in Medic al 100 unit/mL 29 the Center injection morning. ranitidine 2022-0 Yes 20mg Take [address] HCl (ZANTAC 1-05 by mouth. [facility] ORAL) 13:00: Medical 29 Center omeprazole 2022-0 Yes 20mg Q.5D Take [address] (PriLOSEC) 1-05 by mouth 2 [facility] 20 MG 13:00: (two) Medical capsule 29 times Center daily. meclizine 2022-0 Yes 25mg Take [address] [facility] [address] [facility] (ANTIVERT) 1-05 by mouth 3 [facility] 25 MG 13:00: (three) Medical tablet 29 times Center daily as needed for Dizziness. gabapentin 2022-0 Yes 100mg Q.[id number] Take [address] [facility] (NEURONTIN) 1-05 [id number] mg by [facility] 100 MG 13:00: 3D mouth 3 Medical capsule 29 (three) Center times daily. lipase/prot 2022-0 Yes Take by [facility] ease/amylas 1-05 [facility] (CREON 13:00: 6,000 TID Medi vidal ORAL) 29 . Center metoclopram 2022-0 Yes 10mg Take [address] [facility] miracle HCl 1-05 by mouth 4 [facility] (REGLAN) 10 13:00: (four) Medi vidal MG tablet 29 times Center daily as needed for Nausea. promethazin 0 Yes 25mg Take [address] [facility] e 1-05 by mouth [facility] (PHENERGAN) 13:00: every Medic al 25 MG 29 night as Center tablet needed for Nausea. b complex 0 Yes 1{tbl} QD Take [address] [facility] vitamins 1-05 tablet by [facility] tablet 13:00: mouth Medical 29 daily. Center docusate 2022-0 Yes 100mg Take [address] [facility] sodium 1-05 mg by [facility] (COLACE) 13:00: mouth 2 Medica l 100 MG 29 (two) Center capsule times daily as needed for Constipati on. traMADoL 2022-0 Yes 50mg Take [address] [facility] (ULTRAM) 50 1-05 by mouth [facility] mg tablet 13:00: every 6 Medic al 29 (six) Center hours as needed for Pain. metFORMIN 2022-0 Yes 500mg Take [address] [facility] (GLUCOPHAGE 1-05 mg by [facility] ) 500 MG 13:00: mouth 2 Medica l tablet 29 (two) Center times daily with breakfast and dinner. insulin 2022-[address] [facility] lispro 1-05 [facility] (HumaLOG) 13:00: usly in Medic al 100 unit/mL 29 the Center injection morning. ranitidine 3-0 Yes 20mg Take [address] HCl (ZANTAC 1-05 by mouth. [facility] ORAL) 13:00: Medical 29 Center hydrOXYzine 2023-0 Yes 25mg TAKE [address] [facility] (ATARAX) 25 1-03 TABLET (25 [facility] MG tablet 00:00: MG TOTAL) Med ical 00 BY MOUTH Center NEEDED. hydrOXYzine 2023-0 Yes 25mg TAKE [address] [facility] (ATARAX) 25 1-03 TABLET (25 [facility] MG tablet 00:00: MG TOTAL) Med ical 00 BY MOUTH Center NEEDED. hydrOXYzine 2023-0 Yes 25mg TAKE [address] [facility] (ATARAX) 25 1-03 TABLET (25 [facility] MG tablet 00:00: MG TOTAL) Med ical 00 BY MOUTH Center NEEDED. hydrOXYzine 2023-0 Yes 25mg TAKE [address] [facility] (ATARAX) 25 1-03 TABLET (25 [facility] MG tablet 00:00: MG TOTAL) Med ical 00 BY MOUTH Center NEEDED. hydrOXYzine 2023-0 Yes 25mg TAKE [address] [facility] (ATARAX) 25 1-03 TABLET (25 [facility] MG tablet 00:00: MG TOTAL) Med ical 00 BY MOUTH Center NEEDED. hydrOXYzine 2023-0 Yes 25mg TAKE [address] [facility] (ATARAX) 25 1-03 TABLET (25 [facility] MG tablet 00:00: MG TOTAL) Med ical 00 BY MOUTH Center NEEDED. hydrOXYzine 2023-0 Yes 25mg TAKE [address] [facility] (ATARAX) 25 1-03 TABLET (25 [facility] MG tablet 00:00: MG TOTAL) Med ical 00 BY MOUTH Center NEEDED. hydrOXYzine 2023-0 Yes 25mg TAKE [address] [facility] (ATARAX) 25 1-03 TABLET (25 [facility] MG tablet 00:00: MG TOTAL) Med ical 00 BY MOUTH Center NEEDED. hydrOXYzine 2023-0 Yes 25mg TAKE [address] [facility] (ATARAX) 25 1-03 TABLET (25 [facility] MG tablet 00:00: MG TOTAL) Med ical 00 BY MOUTH Center NEEDED. Blood-Gluco 2022-1 Yes [id number] Use as [facility] se 2-30 directed ity of Transmitter 00:00: [place] (DEXCOM G6 00 Medical TRANSMITTER Branch ) [place] Blood-Gluco 2021- Yes [id number] Use as Univers se Sensor 2-30 directed ity of (DEXCOM G6 00:00: [place] SENSOR) 00 Medical [place] [facility] Blood-Gluco 2021-10 Yes [id number] Use as Univers se 2-30 directed ity of Transmitter 00:00: [place] (DEXCOM G6 00 Medical TRANSMITTER Branch ) [place] Blood-Gluco 2021-10 Yes [id number] Use as Univers se Sensor 2-30 directed ity of (DEXCOM G6 00:00: [place] SENSOR) 00 Medical [place] [facility] Blood-Gluco 2021-10 Yes [id number] Use as Univers se 2-30 directed ity of Transmitter 00:00: [place] (DEXCOM G6 00 Medical TRANSMITTER Branch ) [place] Blood-Gluco 2021-10 Yes [id number] Use as Univers se Sensor 2-30 directed ity of (DEXCOM G6 00:00: [place] SENSOR) 00 Medical [place] [facility] Blood-Gluco 2021-10 Yes [id number] Use as Univers se 2-30 directed ity of Transmitter 00:00: [place] (DEXCOM G6 00 Medical TRANSMITTER Branch ) [place] Blood-Gluco 2021-10 Yes [id number] Use as Univers se Sensor 2-30 directed ity of (DEXCOM G6 00:00: [place] SENSOR) 00 Medical [place] [facility] Blood-Gluco 2021-10 Yes [id number] Use as Univers se 2-30 directed ity of Transmitter 00:00: [place] (DEXCOM G6 00 Medical TRANSMITTER Branch ) [place] Blood-Gluco 2021-10 Yes [id number] Use as Univers se Sensor 2-30 directed ity of (DEXCOM G6 00:00: [place] SENSOR) 00 Medical [place] [facility] Blood-Gluco 2021-10 Yes [id number] Use as Univers se 2-30 directed ity of Transmitter 00:00: [place] (DEXCOM G6 00 Medical TRANSMITTER Branch ) [place] Blood-Gluco 2021-10 Yes [id number] Use as Univers se Sensor 2-30 directed ity of (DEXCOM G6 00:00: [place] SENSOR) 00 Medical [place] [facility] Blood-Gluco 2021- Yes [id number] Use as Univers se 2-30 directed ity of Transmitter 00:00: [place] (DEXCOM G6 00 Medical TRANSMITTER Branch ) [place] Blood-Gluco 2021-10 Yes [id number] Use as Univers se Sensor 2-30 directed ity of (DEXCOM G6 00:00: [place] SENSOR) 00 Medical [place] [facility] Blood-Gluco 2021-10 Yes [id number] Use as Univers se 2-30 directed ity of Transmitter 00:00: [place] (DEXCOM G6 00 Medical TRANSMITTER Branch ) [place] Blood-Gluco 2021-10 Yes [id number] Use as Univers se Sensor 2-30 directed ity of (DEXCOM G6 00:00: [place] SENSOR) 00 Medical [place] [facility] Blood-Gluco 2021-10 Yes [id number] Use as Univers se 2-30 directed ity of Transmitter 00:00: [place] (DEXCOM G6 00 Medical TRANSMITTER Branch ) [place] Blood-Gluco 2021-10 Yes [id number] Use as Univers se Sensor 2-30 directed ity of (DEXCOM G6 00:00: [place] SENSOR) 00 Medical [place] [facility] Blood-Gluco 2021-10 Yes [id number] Use as Univers se 2-30 directed ity of Transmitter 00:00: [place] (DEXCOM G6 00 Medical TRANSMITTER Branch ) [place] Blood-Gluco 2021-10 Yes [id number] Use as Univers se Sensor 2-30 directed ity of (DEXCOM G6 00:00: [place] SENSOR) 00 Medical [place] [facility] Blood-Gluco 2021-10 Yes [id number] Use as Univers se 2-30 directed ity of Transmitter 00:00: [place] (DEXCOM G6 00 [facility] ) [place] Blood-Gluco 2021-10 Yes [id number] Use as [facility] se Sensor 2-30 directed ity of (DEXCOM G6 00:00: [place] [facility]) 00 [facility] [place] [facility] Blood-Gluco 2021-10 Yes [id number] Use as [facility] se 2-30 directed ity of Transmitter 00:00: [place] (DEXCOM G6 00 [facility] ) [place] Blood-Gluco 2021-10 Yes [id number] Use as [facility] se Sensor 2-30 directed ity of (DEXCOM G6 00:00: [place] [facility]) 00 [facility] [place] [facility] Blood-Gluco 2021-10 Yes [id number] Use as [facility] se 2-30 directed ity of Transmitter 00:00: [place] (DEXCOM G6 00 [facility] ) [place] Blood-Gluco 2021-10 Yes [id number] Use as [facility] se Sensor 2-30 directed ity of (DEXCOM G6 00:00: [place] [facility]ENS[facility]) 00 [facility] [place] [facility] Blood-Gluco 2021-10 Yes [id number] Use as [facility] se 2-30 directed ity of Transmitter 00:00: [place] (DEXCOM G6 00 [facility] TRANSM[facility] ) [place] Blood-Gluco 2021- Yes [id number] Use as [facility] se Sensor 2-30 directed ity of (DEXCOM G6 00:00: [place] [facility]) 00 [facility] [place] [facility] Blood-Gluco 2021- Yes [id number] Use as [facility] se 2-30 directed ity of Transmitter 00:00: [place] (DEXCOM G6 00 [facility] TRAN[facility] ) [place] Blood-Gluco 2021-10 Yes [id number] Use as [facility] se Sensor 2-30 directed ity of (DEXCOM G6 00:00: [place] [facility]ENS[facility]) 00 [facility] [place] [facility] Blood-Gluco 2021-10 Yes [id number] Use as [facility] se 2-30 directed ity of Transmitter 00:00: [place] (DEXCOM G6 00 [facility] TRAN[facility] ) [place] Blood-Gluco 2021-10 Yes [id number] Use as [facility] se Sensor 2-30 directed ity of (DEXCOM G6 00:00: [place] [facility]) 00 [facility] [place] [facility] Blood-Gluco 2021-10 Yes [id number] Use as [facility] se 2-30 directed ity of Transmitter 00:00: [place] (DEXCOM G6 00 [facility] TRAN[facility] ) [place] Blood-Gluco 2021-10 Yes [id number] Use as [facility] se Sensor 2-30 directed ity of (DEXCOM G6 00:00: [place] [facility]ENS[facility]) 00 [facility] [place] [facility] Blood-Gluco 2021-10 Yes [id number] Use as [facility] se 2-30 directed ity of Transmitter 00:00: [place] (DEXCOM G6 00 [facility] ) [place] Blood-Gluco 2021- Yes [id number] Use as [facility] se Sensor 2-30 directed ity of (DEXCOM G6 00:00: [place] [facility]) 00 [facility] [facility] Blood-Gluco 2021- Yes [id number] Use as [facility] se 2-30 directed ity of Transmitter 00:00: [place] (DEXCOM G6 00 [facility] TRAN[facility] ) [place] Blood-Gluco 2021- Yes [id number] Use as [facility] se Sensor 2-30 directed ity of (DEXCOM G6 00:00: [place] [facility]) 00 [facility] [place] [facility] Blood-Gluco 2021- Yes [id number] Use as [facility] se 2-30 directed ity of Transmitter 00:00: [place] (DEXCOM G6 00 [facility] ) [place] Blood-Gluco 2021- Yes [id number] Use as [facility] se Sensor 2-30 directed ity of (DEXCOM G6 00:00: [place] [facility]) 00 [facility] [place] [facility] Blood-Gluco 2021- Yes [id number] Use as [facility] se 2-30 directed ity of Transmitter 00:00: [place] (DEXCOM G6 00 [facility] ) [place] Blood-Gluco 2021-10 Yes [id number] Use as [facility] se Sensor 2-30 directed ity of (DEXCOM G6 00:00: [place] [facility]) 00 [facility] [place] [facility] Blood-Gluco 2021-10 Yes [id number] Use as [facility] se 2-30 directed ity of Transmitter 00:00: [place] (DEXCOM G6 00 [facility] ) [place] Blood-Gluco 2021-10 Yes [id number] Use as [facility] se Sensor 2-30 directed ity of (DEXCOM G6 00:00: [place] [facility]) 00 [facility] [facility] Blood-Gluco 2021-10 Yes [id number] Use as [facility] se 2-30 directed ity of Transmitter 00:00: [place] (DEXCOM G6 00 [facility] ) [place] Blood-Gluco 2021-10 Yes [id number] Use as [facility] se Sensor 2-30 directed ity of (DEXCOM G6 00:00: [place] [facility]ENS[facility]) 00 [facility] [facility] Blood-Gluco 2021-10 Yes [id number] Use as [facility] se 2-30 directed ity of Transmitter 00:00: [place] (DEXCOM G6 00 [facility] ) [place] Blood-Gluco 2021-10 Yes [id number] Use as [facility] se Sensor 2-30 directed ity of (DEXCOM G6 00:00: [place] [facility]) 00 [facility] [place] [facility] Blood-Gluco 2021-10 Yes [id number] Use as [facility] se 2-30 directed ity of Transmitter 00:00: [place] (DEXCOM G6 00 [facility] TRAN[facility] ) [place] Blood-Gluco 2021-10 Yes [id number] Use as [facility] se Sensor 2-30 directed ity of (DEXCOM G6 00:00: [place] [facility]) 00 [facility] [facility] Blood-Gluco 2021- Yes [id number] Use as [facility] se 2-30 directed ity of Transmitter 00:00: [place] (DEXCOM G6 00 [facility] ) [place] Blood-Gluco 2021-10 Yes [id number] Use as [facility] se Sensor 2-30 directed ity of (DEXCOM G6 00:00: [place] [facility]) 00 [facility] [facility] Blood-Gluco 2021-10 Yes [id number] Use as [facility] se 2-30 directed ity of Transmitter 00:00: [place] (DEXCOM G6 00 [facility] ) [place] Blood-Gluco 2021-10 Yes [id number] Use as [facility] se Sensor 2-30 directed ity of (DEXCOM G6 00:00: [place] [facility]) 00 [facility] [facility] Blood-Gluco 2021-10 Yes [id number] Use as [facility] se 2-30 directed ity of Transmitter 00:00: [place] (DEXCOM G6 00 [facility] ) [place] Blood-Gluco 2021-10 Yes [id number] Use as [facility] se Sensor 2-30 directed ity of (DEXCOM G6 00:00: [place] [facility]) 00 [facility] [facility] Blood-Gluco 2021-10 Yes [id number] Use as [facility] se 2-30 directed ity of Transmitter 00:00: [place] (DEXCOM G6 00 [facility] ) [place] Blood-Gluco 2021-10 Yes [id number] Use as [facility] se Sensor 2-30 directed ity of (DEXCOM G6 00:00: [place] [facility]) 00 [facility] [facility] Blood-Gluco 2021-10 Yes [id number] Use as [facility] se 2-30 directed ity of Transmitter 00:00: [place] (DEXCOM G6 00 [facility] ) [place] Blood-Gluco 2021-10 Yes [id number] Use as [facility] se Sensor 2-30 directed ity of (DEXCOM G6 00:00: [place] [facility]) 00 [facility] [place] [facility] Blood-Gluco 2021-10 Yes [id number] Use as [facility] se 2-30 directed ity of Transmitter 00:00: [place] (DEXCOM G6 00 [facility] ) [place] Blood-Gluco 2021-10 Yes [id number] Use as [facility] se Sensor 2-30 directed ity of (DEXCOM G6 00:00: [place] [facility]) 00 [facility] [place] [facility] Blood-Gluco 2021-10 Yes [id number] Use as [facility] se 2-30 directed ity of Transmitter 00:00: [place] (DEXCOM G6 00 [facility] ) [place] Blood-Gluco 2021-10 Yes [id number] Use as [facility] se Sensor 2-30 directed ity of (DEXCOM G6 00:00: [place] [facility]) 00 [facility] [place] [facility] Blood-Gluco 2021-10 Yes [id number] Use as [facility] se 2-30 directed ity of Transmitter 00:00: [place] (DEXCOM G6 00 [facility] ) [place] Blood-Gluco 2021- Yes [id number] Use as [facility] se Sensor 2-30 directed ity of (DEXCOM G6 00:00: [place] [facility]) 00 [facility] [place] [facility] Blood-Gluco 2021-10 Yes [id number] Use as [facility] se 2-30 directed ity of Transmitter 00:00: [place] (DEXCOM G6 00 [facility] ) [place] Blood-Gluco 2021-10 Yes [id number] Use as [facility] se Sensor 2-30 directed ity of (DEXCOM G6 00:00: [place] [facility]) 00 [facility] [place] [facility] Blood-Gluco 2021-10 Yes [id number] Use as [facility] se 2-30 directed ity of Transmitter 00:00: [place] (DEXCOM G6 00 [facility] ) [place] Blood-Gluco 2021-10 Yes [id number] Use as [facility] se Sensor 2-30 directed ity of (DEXCOM G6 00:00: [place] [facility]) 00 [facility] [place] [facility] Blood-Gluco 2021-10 Yes [id number] Use as [facility] se 2-30 directed ity of Transmitter 00:00: [place] (DEXCOM G6 00 [facility] ) [place] Blood-Gluco 2021-10 Yes [id number] Use as [facility] se Sensor 2-30 directed ity of (DEXCOM G6 00:00: [place] [facility]) 00 [facility] [place] [facility] Blood-Gluco 2021-10 Yes [id number] Use as [facility] se 2-30 directed ity of Transmitter 00:00: [place] (DEXCOM G6 00 [facility] ) [place] Blood-Gluco 2021- Yes [id number] Use as [facility] se Sensor 2-30 directed ity of (DEXCOM G6 00:00: [place] [facility]) 00 [facility] [place] [facility] Blood-Gluco 2021- Yes [id number] Use as [facility] se 2-30 directed ity of Transmitter 00:00: [place] (DEXCOM G6 00 [facility] ) [place] Blood-Gluco 2021- Yes [id number] Use as [facility] se Sensor 2-30 directed ity of (DEXCOM G6 00:00: [place] [facility]) 00 [facility] [place] [facility] Blood-Gluco 2021- Yes [id number] Use as [facility] se 2-30 directed ity of Transmitter 00:00: [place] (DEXCOM G6 00 [facility] ) [place] Blood-Gluco 2021-10 Yes [id number] Use as [facility] se Sensor 2-30 directed ity of (DEXCOM G6 00:00: [place] [facility]) 00 [facility] [facility] Blood-Gluco 2021-10 Yes [id number] Use as [facility] se 2-30 directed ity of Transmitter 00:00: [place] (DEXCOM G6 00 [facility] ) [place] Blood-Gluco 2021-10 Yes [id number] Use as [facility] se Sensor 2-30 directed ity of (DEXCOM G6 00:00: [place] [facility]) 00 [facility] [place] [facility] Blood-Gluco 2021-10 Yes [id number] Use as [facility] se 2-30 directed ity of Transmitter 00:00: [place] (DEXCOM G6 00 [facility] ) [place] Blood-Gluco 2021-10 Yes [id number] Use as [facility] se Sensor 2-30 directed ity of (DEXCOM G6 00:00: [place] [facility]) 00 [facility] [place] [facility] Blood-Gluco 2021-10 Yes [id number] Use as [facility] se 2-30 directed ity of Transmitter 00:00: [place] (DEXCOM G6 00 [facility] ) [place] Blood-Gluco 2021-10 Yes [id number] Use as [facility] se Sensor 2-30 directed ity of (DEXCOM G6 00:00: [place] [facility]) 00 [facility] [facility] Blood-Gluco 2021-10 Yes [id number] Use as [facility] se 2-30 directed ity of Transmitter 00:00: [place] (DEXCOM G6 00 [facility] ) [place] Blood-Gluco 2021-10 Yes [id number] Use as [facility] se Sensor 2-30 directed ity of (DEXCOM G6 00:00: [place] [facility]) 00 [facility] [facility] Blood-Gluco 2021-10 Yes [id number] Use as [facility] se 2-30 directed ity of Transmitter 00:00: [place] (DEXCOM G6 00 [facility] ) [place] Blood-Gluco 2021-10 Yes [id number] Use as [facility] se Sensor 2-30 directed ity of (DEXCOM G6 00:00: [place] [facility]) 00 [facility] [place] [facility] Blood-Gluco 2021-10 Yes [id number] Use as [facility] se 2-30 directed ity of Transmitter 00:00: [place] (DEXCOM G6 00 [facility] ) [place] Blood-Gluco 2021-10 Yes [id number] Use as [facility] se Sensor 2-30 directed ity of (DEXCOM G6 00:00: [place] [facility]) 00 [facility] [place] [facility] Blood-Gluco Yes [id number] Use as [facility] se 2-30 directed ity of Transmitter 00:00: [place] (DEXCOM G6 00 [facility] ) [place] Blood-Gluco 2021-10 Yes [id number] Use as [facility] se Sensor 2-30 directed ity of (DEXCOM G6 00:00: [place] [facility]ENS[facility]) 00 [facility] [place] [facility] Blood-Gluco 2021- Yes [id number] Use as [facility] se 2-30 directed ity of Transmitter 00:00: [place] (DEXCOM G6 00 [facility] ) [place] Blood-Gluco 2021-10 Yes [id number] Use as [facility] se Sensor 2-30 directed ity of (DEXCOM G6 00:00: [place] [facility]) 00 [facility] [place] [facility] Blood-Gluco 2021-10 Yes [id number] Use as [facility] se 2-30 directed ity of Transmitter 00:00: [place] (DEXCOM G6 00 [facility] ) [place] Blood-Gluco 2021-10 Yes [id number] Use as [facility] se Sensor 2-30 directed ity of (DEXCOM G6 00:00: [place] [facility]) 00 [facility] [place] [facility] Blood-Gluco 2021-10 Yes [id number] Use as [facility] se 2-30 directed ity of Transmitter 00:00: [place] (DEXCOM G6 00 [facility] ) [place] Blood-Gluco 2021-10 Yes [id number] Use as [facility] se Sensor 2-30 directed ity of (DEXCOM G6 00:00: [place] [facility]) 00 [facility] [place] [facility] Blood-Gluco 2021-10 Yes [id number] Use as [facility] se 2-30 directed ity of Transmitter 00:00: [place] (DEXCOM G6 00 [facility] ) [place] Blood-Gluco 2021- Yes [id number] Use as [facility] se Sensor 2-30 directed ity of (DEXCOM G6 00:00: [place] [facility]) 00 [facility] [place] [facility] Blood-Gluco 2021-10 Yes [id number] Use as [facility] se 2-30 directed ity of Transmitter 00:00: [place] (DEXCOM G6 00 [facility] ) [place] Blood-Gluco 2021- Yes [id number] Use as [facility] se Sensor 2-30 directed ity of (DEXCOM G6 00:00: [place] [facility]) 00 [facility] [place] [facility] Blood-Gluco 2021- Yes [id number] Use as [facility] se 2-30 directed ity of Transmitter 00:00: [place] (DEXCOM G6 00 [facility] ) [place] Blood-Gluco 2021-10 Yes [id number] Use as [facility] se Sensor 2-30 directed ity of (DEXCOM G6 00:00: [place] [facility]) 00 [facility] [place] [facility] Blood-Gluco 2021-10 Yes [id number] Use as [facility] se 2-30 directed ity of Transmitter 00:00: [place] (DEXCOM G6 00 [facility] ) [place] Blood-Gluco 2021-10 Yes [id number] Use as [facility] se Sensor 2-30 directed ity of (DEXCOM G6 00:00: [place] [facility]ENS[facility]) 00 [facility] [place] [facility] Blood-Gluco 2021-10 Yes [id number] Use as [facility] se 2-30 directed ity of Transmitter 00:00: [place] (DEXCOM G6 00 [facility] ) [place] Blood-Gluco 2021-10 Yes [id number] Use as [facility] se Sensor 2-30 directed ity of (DEXCOM G6 00:00: [place] [facility]) [facility] [place] [facility] Blood-Gluco 2021-10 Yes [id number] Use as [facility] se 2-30 directed ity of Transmitter 00:00: [place] (DEXCOM G6 00 [facility] ) [place] Blood-Gluco 2021-10 Yes [id number] Use as [facility] se Sensor 2-30 directed ity of (DEXCOM G6 00:00: [place] [facility]) 00 [facility] [place] [facility] Blood-Gluco 2021-10 Yes [id number] Use as [facility] se 2-30 directed ity of Transmitter 00:00: [place] (DEXCOM G6 00 [facility] ) [place] Blood-Gluco 2021-10 Yes [id number] Use as [facility] se Sensor 2-30 directed ity of (DEXCOM G6 00:00: [place] [facility]) 00 [facility] [place] [facility] Blood-Gluco 2021-10- No [id number] Use as [facility] se 2-30 -28 directed ity of Transmitter 00:00: 00:00 [place] (DEXCOM G6 00 :00 [facility] ) [place] Blood-Gluco 2021-10- No [id number] Use as [facility] se Sensor 2-30 - directed ity o f (DEXCOM G6 00:00: 00:00 [place] [facility]ENS[facility]) 00 :00 [facility] [facility] tirzepatide 2021-10 Yes [id number] 2.5mg inject 2.5 [facility] ([facility]) 2-28 mg under ity o f 2.5 mg/0.5 00:00: [facility] [place] PnIj 00 weekly. [facility] 2.5mg SC qWeek x 4 Weeks, then increase to 5 mg [facility] qWeek tirzepatide 2021-10 Yes [id number] 5mg inject 5 [facility] ([facility]JAR[facility]) 2-28 mg under ity o f 5 mg/0.5 mL 00:00: [place] PnIj 00 weekly. [facility] 2.5mg SC qWeek x 4 Weeks, then increase to 5 mg [place] qWeek DULoxetine 2021-10 Yes [id number] 20mg Take 1 U nivers 20 mg 2-28 capsule by ity of capsule 00:00: mouth in [place] 00 the Medical morning. Branch tirzepatide 2021-10 Yes [id number] 2.5mg inject 2.5 [facility] ([facility]JAR[facility]) 2-28 mg under ity o f 2.5 mg/0.5 00:00: [facility] [place] PnIj 00 weekly. [facility] 2.5mg SC qWeek x 4 Weeks, then increase to 5 mg [place] qWeek tirzepatide 2021-10 Yes [id number] 5mg inject 5 [facility] ([facility]) 2-28 mg under ity o f 5 mg/0.5 mL 00:00: [place] PnIj 00 weekly. [facility] 2.5mg SC qWeek x 4 Weeks, then increase to 5 mg [place] qWeek DULoxetine 2021-10 Yes [id number] 20mg Take 1 U nivers 20 mg 2-28 capsule by ity of capsule 00:00: mouth in [place] 00 the Medical morning. Branch tirzepatide 2021-10 Yes [id number] 2.5mg inject 2.5 [facility] ([facility]) 2-28 mg under ity o f 2.5 mg/0.5 00:00: [place] [facility] [place] PnIj 00 weekly. [facility] 2.5mg SC qWeek x 4 Weeks, then increase to 5 mg [place] qWeek tirzepatide 2021-10 Yes [id number] 5mg inject 5 [facility] ([facility]) 2-28 mg under ity o f 5 mg/0.5 mL 00:00: [place] PnIj 00 weekly. [facility] 2.5mg SC qWeek x 4 Weeks, then increase to 5 mg [place] qWeek DULoxetine 2021-10 Yes [id number] 20mg Take 1 [facility]ivers 20 mg 2-28 capsule by ity of capsule 00:00: mouth in [place] 00 the Medical morning. Branch tirzepatide 2021-10 Yes [id number] 2.5mg inject 2.5 [facility] ([facility]) 2-28 mg under ity o f 2.5 mg/0.5 00:00: [facility] [place] PnIj 00 weekly. [facility] 2.5mg SC qWeek x 4 Weeks, then increase to 5 mg [place] qWeek tirzepatide 2021-10 Yes [id number] 5mg inject 5 [facility] ([facility]) 2-28 mg under ity o f 5 mg/0.5 mL 00:00: [place] PnIj 00 weekly. [facility] 2.5mg SC qWeek x 4 Weeks, then increase to 5 mg [place] qWeek DULoxetine 2021-10 Yes [id number] 20mg Take 1 [facility]ivers 20 mg 2-28 capsule by ity of capsule 00:00: mouth in [place] 00 the Medical morning. Branch tirzepatide 2021-10 Yes [id number] 2.5mg inject 2.5 [facility] ([facility]) 2-28 mg under ity o f 2.5 mg/0.5 00:00: [place] PnIj 00 weekly. [facility] 2.5mg SC qWeek x 4 Weeks, then increase to 5 mg [place] qWeek tirzepatide 2021-10 Yes [id number] 5mg inject 5 [facility] ([facility]) 2-28 mg under ity o f 5 mg/0.5 mL 00:00: [place] PnIj 00 weekly. [facility] 2.5mg SC qWeek x 4 Weeks, then increase to 5 mg [place] qWeek DULoxetine 2021-10 Yes [id number] 20mg Take 1 [facility]ivers 20 mg 2-28 capsule by ity of capsule 00:00: mouth in [place] 00 the Medical morning. Branch tirzepatide 2021-10 Yes [id number] 2.5mg inject 2.5 [facility] ([facility]) 2-28 mg under ity o f 2.5 mg/0.5 00:00: [place] [facility] [place] [facility] PnIj 00 weekly. [facility] 2.5mg SC qWeek x 4 Weeks, then increase to 5 mg [place] qWeek tirzepatide 2021-10 Yes [id number] 5mg inject 5 [facility] ([facility]) 2-28 mg under ity o f 5 mg/0.5 mL 00:00: [place] PnIj 00 weekly. [facility] 2.5mg SC qWeek x 4 Weeks, then increase to 5 mg [place] qWeek DULoxetine 2021-10 Yes [id number] 20mg Take 1 [facility] nivers 20 mg 2-28 capsule by ity of capsule 00:00: mouth in [place] 00 the Medical morning. Branch tirzepatide 2021-10 Yes [id number] 2.5mg inject 2.5 [facility] ([facility]) 2-28 mg under ity o f 2.5 mg/0.5 00:00: [place] PnIj 00 weekly. [facility] 2.5mg SC qWeek x 4 Weeks, then increase to 5 mg [facility] qWeek tirzepatide 2021-10 Yes [id number] 5mg inject 5 [facility] ([facility]) 2-28 mg under ity o f 5 mg/0.5 mL 00:00: [place] PnIj 00 weekly. [facility] 2.5mg SC qWeek x 4 Weeks, then increase to 5 mg [place] qWeek DULoxetine 2021-10 Yes [id number] 20mg Take 1 [facility] nivers 20 mg 2-28 capsule by ity of capsule 00:00: mouth in [place] 00 the Medical morning. Branch tirzepatide 2021-10 Yes [id number] 5mg inject 5 [facility] ([facility]) 2-28 mg under ity o f 5 mg/0.5 mL 00:00: [place] PnIj 00 weekly. [facility] 2.5mg SC qWeek x 4 Weeks, then increase to 5 mg [place] qWeek DULoxetine 2021-10 Yes [id number] 20mg Take 1 [facility] nivers 20 mg 2-28 capsule by ity of capsule 00:00: mouth in [place] 00 the Medical morning. Branch tirzepatide 2021-10 Yes [id number] 5mg inject 5 [facility] ([facility]) 2-28 mg under ity o f 5 mg/0.5 mL 00:00: the [place] PnIj 00 weekly. [facility] 2.5mg SC qWeek x 4 Weeks, then increase to 5 mg [place] qWeek DULoxetine 2021-10 Yes [id number] 20mg Take 1 U nivers 20 mg 2-28 capsule by ity of capsule 00:00: mouth in [place] 00 the Medical morning. Branch tirzepatide 2021-10 Yes [id number] 5mg inject 5 [facility] ([facility]) 2-28 mg under ity o f 5 mg/0.5 mL 00:00: the [place] PnIj 00 weekly. [facility] 2.5mg SC qWeek x 4 Weeks, then increase to 5 mg [place] qWeek DULoxetine 2021-10 Yes [id number] 20mg Take 1 [facility] nivers 20 mg 2-28 capsule by ity of capsule 00:00: mouth in [place] 00 the Medical morning. Branch tirzepatide 2021-10 Yes [id number] 5mg inject 5 [facility] ([facility]) 2-28 mg under ity o f 5 mg/0.5 mL 00:00: the [place] PnIj 00 weekly. [facility] 2.5mg SC qWeek x 4 Weeks, then increase to 5 mg [place] qWeek DULoxetine 2021-10 Yes [id number] 20mg Take 1 [facility] nivers 20 mg 2-28 capsule by ity of capsule 00:00: mouth in [place] 00 the Medical morning. Branch tirzepatide 2021-10 Yes [id number] 5mg inject 5 [facility] ([facility]) 2-28 mg under ity o f 5 mg/0.5 mL 00:00: the [place] PnIj 00 weekly. [facility] 2.5mg SC qWeek x 4 Weeks, then increase to 5 mg SC qWeek DULoxetine 2021-10 Yes [id number] 20mg Take 1 U nivers 20 mg 2-28 capsule by ity of capsule 00:00: mouth in [place] 00 the Medical morning. Branch tirzepatide 2021-10 Yes [id number] 5mg inject 5 [facility] ([facility]) 2-28 mg under ity o f 5 mg/0.5 mL 00:00: the [place] PnIj 00 weekly. [facility] 2.5mg SC qWeek x 4 Weeks, then increase to 5 mg SC qWeek DULoxetine 2021-10 Yes [id number] 20mg Take 1 [facility] nivers 20 mg 2-28 capsule by ity of capsule 00:00: mouth in [place] 00 the Medical morning. Branch tirzepatide 2021-10 Yes [id number] 5mg inject 5 [facility] ([facility]) 2-28 mg under ity o f 5 mg/0.5 mL 00:00: the [place] PnIj 00 weekly. [facility] 2.5mg SC qWeek x 4 Weeks, then increase to 5 mg SC qWeek DULoxetine 2021-10 Yes [id number] 20mg Take 1 [facility] 20 mg 2-28 capsule by ity of capsule 00:00: mouth in [place] 00 the Medical morning. Branch tirzepatide 2021-10 Yes [id number] 5mg inject 5 [facility] ([facility]) 2-28 mg under ity o f 5 mg/0.5 mL 00:00: the [place] PnIj 00 weekly. [facility] 2.5mg SC qWeek x 4 Weeks, then increase to 5 mg SC qWeek DULoxetine 2021-10 Yes [id number] 20mg Take 1 U nivers 20 mg 2-28 capsule by ity of capsule 00:00: mouth in [place] 00 the Medical morning. Branch tirzepatide 2021-10 Yes [id number] 5mg inject 5 [facility] ([facility]) 2-28 mg under ity o f 5 mg/0.5 mL 00:00: the [place] PnIj 00 weekly. [facility] 2.5mg SC qWeek x 4 Weeks, then increase to 5 mg SC qWeek DULoxetine 2021-10 Yes [id number] 20mg Take 1 [facility] 20 mg 2-28 capsule by ity of capsule 00:00: mouth in [place] 00 the Medical morning. Branch tirzepatide 2021-10 Yes [id number] 5mg inject 5 [facility] ([facility]) 2-28 mg under ity o f 5 mg/0.5 mL 00:00: the [place] PnIj 00 weekly. [facility] 2.5mg SC qWeek x 4 Weeks, then increase to 5 mg SC qWeek DULoxetine 2021-10 Yes [id number] 20mg Take 1 [facility] 20 mg 2-28 capsule by ity of capsule 00:00: mouth in [place] 00 the Medical morning. Branch tirzepatide 2021-10 Yes [id number] 5mg inject 5 [facility] ([facility]) 2-28 mg under ity o f 5 mg/0.5 mL 00:00: the [place] PnIj 00 weekly. [facility] 2.5mg SC qWeek x 4 Weeks, then increase to 5 mg SC qWeek DULoxetine 2021-10 Yes [id number] 20mg Take 1 U nivers 20 mg 2-28 capsule by ity of capsule 00:00: mouth in [place] 00 the Medical morning. Branch tirzepatide 2021-10 Yes [id number] 5mg inject 5 [facility] ([facility]) 2-28 mg under ity o f 5 mg/0.5 mL 00:00: the [place] PnIj 00 weekly. [facility] 2.5mg SC qWeek x 4 Weeks, then increase to 5 mg SC qWeek DULoxetine 2021-10 Yes [id number] 20mg Take 1 U nivers 20 mg 2-28 capsule by ity of capsule 00:00: mouth in [place] 00 the Medical morning. Branch tirzepatide 2021-10- No [id number] 5mg inject 5 [facility] ([facility]) 2-28 02-07 mg under ity of 5 mg/0.5 mL 00:00: 00:00 [place] PnIj 00 :00 weekly. [facility] 2.5mg SC qWeek x 4 Weeks, then increase to 5 mg SC qWeek DULoxetine 2021-10- No [id number] 20mg Take 1 [facility] 20 mg 2-28 02-07 capsule by ity of capsule 00:00: 00:00 mouth in [place] 00 :00 the Medical morning. Branch tirzepatide 2021-10- No [id number] 5mg inject 5 [facility] ([facility]) 2-28 02-07 mg under ity of 5 mg/0.5 mL 00:00: 00:00 [place] PnIj 00 :00 weekly. [facility] 2.5mg SC qWeek x 4 Weeks, then increase to 5 mg SC qWeek DULoxetine 2021-10- No [id number] 20mg Take 1 [facility] 20 mg 12-18- capsule by ity of capsule 00:00: 00:00 mouth in [place] 00 :00 the Medical morning. Branch tirzepatide 2021-10- No [id number] 5mg inject 5 [facility] ([facility]) -18 12-07 mg under ity of 5 mg/0.5 mL 00:00: 00:00 [place] PnIj 00 :00 weekly. [facility] 2.5mg SC qWeek x 4 Weeks, then increase to 5 mg SC qWeek DULoxetine 2021-10- No [id number] 20mg Take 1 [facility] 20 mg 12-18- capsule by ity of capsule 00:00: 00:00 mouth in [place] 00 :00 the Medical morning. Branch tirzepatide 2021-10- No [id number] 5mg inject 5 [facility] ([facility]) 12-18- mg under ity of 5 mg/0.5 mL 00:00: 00:00 [place] PnIj 00 :00 weekly. [facility] 2.5mg SC qWeek x 4 Weeks, then increase to 5 mg SC qWeek DULoxetine 2021-10- No [id number] 20mg Take 1 [facility] 20 mg 12-18 capsule by ity of capsule 00:00: 00:00 mouth in [place] 00 :00 the Medical morning. Branch tirzepatide 2021-10- No [id number] 5mg inject 5 [facility] ([facility]) 12-18-07 mg under ity of 5 mg/0.5 mL 00:00: 00:00 [place] PnIj 00 :00 weekly. [facility] 2.5mg SC qWeek x 4 Weeks, then increase to 5 mg SC qWeek DULoxetine 2021-10- No [id number] 20mg Take 1 [facility] 20 mg 12-18- capsule by ity of capsule 00:00: 00:00 mouth in [place] 00 :00 the Medical morning. Branch tirzepatide 2021-10- No [id number] 2.5mg inject 2.5 [facility] ([facility]) 12-18 01-20 mg under ity of 2.5 mg/0.5 00:00: 00:00 [place] mL PnIj 00 :00 weekly. [facility] 2.5mg SC qWeek x 4 Weeks, then increase to 5 mg SC qWeek tirzepatide 2021-10- No [id number] 2.5mg inject 2.5 [facility] ([facility]) 2-28 01-20 mg under ity of 2.5 mg/0.5 00:00: 00:00 [place] mL PnIj 00 :00 weekly. [facility] 2.5mg SC qWeek x 4 Weeks, then increase to 5 mg SC qWeek rosuvastati 2021-10 No 20mg QD Take [address] [facility] ([facility]) 2- 12-27 by mouth [place] [facility] 20 MG 13:57: 00:00 daily. Medical tablet 08 :00 [place] rosuvastati 2021-10 No 20mg QD Take [address] [facility] ([facility]) 2- 12-27 by mouth [place] [facility] 20 MG 13:57: 00:00 daily. Medical tablet 08 :00 [place] doxepin 2021-10 No 10mg QD Take [address] [facility] (SINEquan) 2- 12-27 by mouth [facility] 10 MG 13:57: 00:00 nightly. Medical capsule 08 :00 [facility] doxepin 2021-10- No 10mg QD Take [address] [facility] (SINEquan) 2-27 12-27 by mouth [place] [facility] 10 MG 13:57: 00:00 nightly. Medical capsule 08 :00 [place] rosuvastati 2021-10- No 20mg QD Take [address] [facility] ([facility]) 2-27 12-27 by mouth [facility] 20 MG 13:57: 00:00 daily. Medical tablet 08 :00 Center doxepin 2021-10- No 10mg QD Take [address] [facility] ([facility]) 2-27 12-27 by mouth [facility] 10 MG 13:57: 00:00 nightly. Medical capsule 08 :00 [place] rosuvastati 2021-10- No 20mg QD Take [address] [facility] ([facility]) 2-27 12-27 by mouth [facility] 20 MG 13:57: 00:00 daily. Medical tablet 08 :00 [place] doxepin 2021-10- No 10mg QD Take [address] [facility] ([facility]) 2-27 12-27 by mouth [facility] 10 MG 13:57: 00:00 nightly. Medical capsule 08 :00 [place] rosuvastati 2021-10- No 20mg QD Take [address] [facility] ([facility]) 2-27 12-27 by mouth [facility] 20 MG 13:57: 00:00 daily. Medical tablet 08 :00 [place] doxepin 2021-10- No 10mg QD Take [address] [facility] ([facility]) 2-27 12-27 by mouth [facility] 10 MG 13:57: 00:00 nightly. Medical capsule 08 :00 [place] rosuvastati 2021-10- No 20mg QD Take [address] [facility] ([facility]) 2-27 12-27 by mouth [facility] 20 MG 13:57: 00:00 daily. Medical tablet 08 :00 [place] doxepin 2021-10- No 10mg QD Take [address] [facility] ([facility]) 2-27 12-27 by mouth [facility] 10 MG 13:57: 00:00 nightly. Medical capsule 08 :00 [place] rosuvastati 2021-10- No 20mg QD Take [address] [facility] ([facility]) 2-27 12-27 by mouth [facility] 20 MG 13:57: 00:00 daily. Medical tablet 08 :00 [place] doxepin 2021-10- No 10mg QD Take [address] [facility] ([facility]) 2-27 12-27 by mouth [facility] 10 MG 13:57: 00:00 nightly. Medical capsule 08 :00 [place] rosuvastati 2021-10- No 20mg QD Take [address] [facility] ([facility]) 2-27 12-27 by mouth [facility] 20 MG 13:57: 00:00 daily. Medical tablet 08 :00 [place] doxepin 2021-10- No 10mg QD Take [address] [facility] ([facility]) 2-27 12-27 by mouth [facility] 10 MG 13:57: 00:00 nightly. Medical capsule 08 :00 [place] rosuvastati 2021-10 No 20mg QD Take [address] [facility] ([facility]) 12-17 by mouth [facility] 20 MG 13:57: 00:00 daily. Medical tablet 08 :00 Center doxepin 2021-10 No 10mg QD Take [address] [facility] ([facility]) 12-17 by mouth [facility] 10 MG 13:57: 00:00 nightly. Medical capsule 08 :00 Center rosuvastati 2021-10 No 20mg QD Take [address] [facility] ([facility]) 12-17 tablet (20 [facility] 20 MG 00:00: 23:59 mg total) Medica l tablet 00 :00 by mouth Center daily for 90 days. doxepin 2021-10 No 10mg QD Take [address] [facility] ([facility]) 12-17 capsule [facility] 10 MG 00:00: 23:59 (10 mg Medical capsule 00 :00 total) by Center mouth nightly for 90 days. rifAXIMin 2021-10 No 550mg Q.5D Take [address] [facility] 550 mg Tab 12-17 tablet [facility] 00:00: 23:59 (550 mg Medical 00 :00 total) by Center mouth 2 (two) times daily for 90 days. DULoxetine 2021-10 No 20mg QD Take [address] [facility] (CYMBALTA) 12-17 capsule [facility] 20 MG 00:00: 23:59 (20 mg Medical capsule 00 :00 total) by Center mouth daily for 90 days. rosuvastati 2021-10 No 20mg QD Take [address] [facility] ([facility]) 12-17 tablet (20 [facility] 20 MG 00:00: 23:59 mg total) Medica l tablet 00 :00 by mouth Center daily for 90 days. doxepin 2021-10 No 10mg QD Take [address] [facility] ([facility]) 12-17 capsule [facility] 10 MG 00:00: 23:59 (10 mg Medical capsule 00 :00 total) by Center mouth nightly for 90 days. rifAXIMin 2021-10- No 550mg Q.5D Take [address] [facility] 550 mg Tab 12-17 tablet [facility] 00:00: 23:59 (550 mg Medical 00 :00 total) by Center mouth 2 (two) times daily for 90 days. DULoxetine 2021-10- No 20mg QD Take [address] [facility] (CYMBALTA) 12-17 capsule [facility] 20 MG 00:00: 23:59 (20 mg Medical capsule 00 :00 total) by Center mouth daily for 90 days. rosuvastati 2021-10- No 20mg QD Take [address] [facility] ([facility]) 12-17 tablet (20 [facility] 20 MG 00:00: 23:59 mg total) Medica l tablet 00 :00 by mouth Center daily for 90 days. doxepin 2021-10 No 10mg QD Take [address] [facility] ([facility]) 12-17 capsule [facility] 10 MG 00:00: 23:59 (10 mg Medical capsule 00 :00 total) by Center mouth nightly for 90 days. rifAXIMin 2021-10 No 550mg Q.5D Take [address] [facility] 550 mg Tab 12-17 tablet [facility] 00:00: 23:59 (550 mg Medical 00 :00 total) by Center mouth 2 (two) times daily for 90 days. DULoxetine 2021-10 No 20mg QD Take [address] [facility] (CYMBALTA) 12-17 capsule [facility] 20 MG 00:00: 23:59 (20 mg Medical capsule 00 :00 total) by Center mouth daily for 90 days. rosuvastati 2021-10- No 20mg QD Take [address] [facility] ([facility]) 12-17 tablet (20 [facility] 20 MG 00:00: 23:59 mg total) Medica l tablet 00 :00 by mouth Center daily for 90 days. doxepin 2021-10- No 10mg QD Take [address] [facility] ([facility]) 12-17 capsule [facility] 10 MG 00:00: 23:59 (10 mg Medical capsule 00 :00 total) by Center mouth nightly for 90 days. rifAXIMin 2021-10- No 550mg Q.5D Take [address] [facility] 550 mg Tab 12-17 tablet [facility] 00:00: 23:59 (550 mg Medical 00 :00 total) by Center mouth 2 (two) times daily for 90 days. DULoxetine 2021-10- No 20mg QD Take [address] [facility] (CYMBALTA) 12-17 capsule [facility] 20 MG 00:00: 23:59 (20 mg Medical capsule 00 :00 total) by Center mouth daily for 90 days. rosuvastati 2021-10- No 20mg QD Take [address] [facility] ([facility]) 12-17 tablet (20 [facility] 20 MG 00:00: 23:59 mg total) Medica l tablet 00 :00 by mouth Center daily for 90 days. doxepin 2021-10- No 10mg QD Take [address] [facility] ([facility]) 12-17 capsule [facility] 10 MG 00:00: 23:59 (10 mg Medical capsule 00 :00 total) by Center mouth nightly for 90 days. rifAXIMin 2021-10- No 550mg Q.5D Take [address] [facility] 550 mg Tab 12-17 tablet [facility] 00:00: 23:59 (550 mg Medical 00 :00 total) by Center mouth 2 (two) times daily for 90 days. DULoxetine 2021-10 No 20mg QD Take [address] [facility] ([facility]) 12-17 capsule [facility] 20 MG 00:00: 23:59 (20 mg Medical capsule 00 :00 total) by Center mouth daily for 90 days. rosuvastati 2021-10- No 20mg QD Take [address] [facility] ([facility]) 12-17 tablet (20 [facility] 20 MG 00:00: 23:59 mg total) Medica l tablet 00 :00 by mouth Center daily for 90 days. doxepin 2021-10- No 10mg QD Take [address] [facility] ([facility]) 12-17 capsule [facility] 10 MG 00:00: 23:59 (10 mg Medical capsule 00 :00 total) by Center mouth nightly for 90 days. rifAXIMin 2021-10- No 550mg Q.5D Take [address] [facility] 550 mg Tab 12-17 tablet [facility] 00:00: 23:59 (550 mg Medical 00 :00 total) by Center mouth 2 (two) times daily for 90 days. DULoxetine 2021-10- No 20mg QD Take [address] [facility] (CY[facility]ALTA) 12-17 capsule [facility] 20 MG 00:00: 23:59 (20 mg Medical capsule 00 :00 total) by Center mouth daily for 90 days. rosuvastati 2021-10- No 20mg QD Take [address] [facility] ([facility]) 12-17 tablet (20 [facility] 20 MG 00:00: 23:59 mg total) Medica l tablet 00 :00 by mouth Center daily for 90 days. doxepin 2021-10 No 10mg QD Take [address] [facility] ([facility]) 12-17 capsule [facility] 10 MG 00:00: 23:59 (10 mg Medical capsule 00 :00 total) by Center mouth nightly for 90 days. rifAXIMin 2021-10 No 550mg Q.5D Take [address] [facility] 550 mg Tab 12-17 tablet [facility] 00:00: 23:59 (550 mg Medical 00 :00 total) by Center mouth 2 (two) times daily for 90 days. DULoxetine 2021-10 No 20mg QD Take [address] [facility] ([facility]) 12-17 capsule [facility] 20 MG 00:00: 23:59 (20 mg Medical capsule 00 :00 total) by Center mouth daily for 90 days. rosuvastati 2021-10- No 20mg QD Take [address] [facility] ([facility]) 12-17 tablet (20 [facility] 20 MG 00:00: 23:59 mg total) Medica l tablet 00 :00 by mouth Center daily for 90 days. doxepin 2021-10 No 10mg QD Take [address] [facility] ([facility]) 12-17 capsule [facility] 10 MG 00:00: 23:59 (10 mg Medical capsule 00 :00 total) by Center mouth nightly for 90 days. rifAXIMin 2021-10- No 550mg Q.5D Take [address] [facility] 550 mg Tab 12-17 tablet [facility] 00:00: 23:59 (550 mg Medical 00 :00 total) by Center mouth 2 (two) times daily for 90 days. DULoxetine 2021-10- No 20mg QD Take [address] [facility] (CY[facility]AL[facility]) 12-17 capsule [facility] 20 MG 00:00: 23:59 (20 mg Medical capsule 00 :00 total) by Center mouth daily for 90 days. rosuvastati 2021-10- No 20mg QD Take [address] [facility] ([facility]) 12-17 tablet (20 [facility] 20 MG 00:00: 23:59 mg total) Medica l tablet 00 :00 by mouth Center daily for 90 days. doxepin 2021-10- No 10mg QD Take [address] [facility] ([facility]) 12-17 capsule [facility] 10 MG 00:00: 23:59 (10 mg Medical capsule 00 :00 total) by Center mouth nightly for 90 days. rifAXIMin 2021-10- No 550mg Q.5D Take [address] [facility] 550 mg Tab 12-17 tablet [facility] 00:00: 23:59 (550 mg Medical 00 :00 total) by Center mouth 2 (two) times daily for 90 days. DULoxetine 2021-10 No 20mg QD Take [address] [facility] ([facility]) 12-17 capsule [facility] 20 MG 00:00: 23:59 (20 mg Medical capsule 00 :00 total) by Center mouth daily for 90 days. XIFAXAN 550 2021-10- No 550mg Take 550 [facility] mg tablet 12-17 mg by [facility] of 00:00: 00:00 mouth in [place] 00 :00 the Medical morning Branch and 550 mg in the evening. rosuvastati 2021-10- No 20mg Take 20 mg [facility] 20 mg 12-17 by mouth [facility] of tablet 00:00: 00:00 in the [place] 00 :00 morning. Medical Branch HYDROcodone 2021-10- No 1{tbl} Take [address] -acetaminop 12-13 tablet by Dayana woodson ([facility] 00:00: 23:59 mouth Medic al 5-325) 00 :00 every 6 Center 5-325 mg (six) per tablet hours as needed for up to 10 days. Max Daily Amount: 4 tablets HYDROcodone 2021-10- No 1{tbl} Take [address] -acetaminop 2-23 -02 tablet by Dayana woodson ([facility] 00:00: 23:59 mouth Medic al 5-325) 00 :00 every 6 Center 5-325 mg (six) per tablet hours as needed for up to 10 days. Max Daily Amount: 4 tablets HYDROcodone 2021-10- No 1{tbl} Take [address] -acetaminop 2-23 -02 tablet by Dayana woodson ([facility] 00:00: 23:59 mouth Medic al 5-325) 00 :00 every 6 Center 5-325 mg (six) per tablet hours as needed for up to 10 days. Max Daily Amount: 4 tablets HYDROcodone 2021-10- No 1{tbl} Take [address] -acetaminop 2-23 - tablet by Dayana woodson ([facility] 00:00: 23:59 mouth Medic al 5-325) 00 :00 every 6 Center 5-325 mg (six) per tablet hours as needed for up to 10 days. Max Daily Amount: 4 tablets HYDROcodone 2021-10- No 1{tbl} Take [address] -acetaminop 2-12 11- tablet by Dayana woodson ([facility] 00:00: 23:59 mouth Medic al 5-325) 00 :00 every 6 Center 5-325 mg (six) per tablet hours as needed for up to 10 days. Max Daily Amount: 4 tablets HYDROcodone 2021-10- No 1{tbl} Take [address] -acetaminop 2-23 -02 tablet by Dayana woodson ([facility] 00:00: 23:59 mouth Medic al 5-325) 00 :00 every 6 Center 5-325 mg (six) per tablet hours as needed for up to 10 days. Max Daily Amount: 4 tablets HYDROcodone 2021-10- No 1{tbl} Take [address] -acetaminop 2-23 -02 tablet by Dayana woodson ([facility] 00:00: 23:59 mouth Medic al 5-325) 00 :00 every 6 Center 5-325 mg (six) per tablet hours as needed for up to 10 days. Max Daily Amount: 4 tablets HYDROcodone 2021-10- No 1{tbl} Take [address] -acetaminop 2-23 01- tablet by Dayana woodson ([facility] 00:00: 23:59 mouth Medic al 5-325) 00 :00 every 6 Center 5-325 mg (six) per tablet hours as needed for up to 10 days. Max Daily Amount: 4 tablets HYDROcodone 2021-10- No 1{tbl} Take [address] -acetaminop -12 11- tablet by Dayana woodson ([facility] 00:00: 23:59 mouth Medic al 5-325) 00 :00 every 6 Center 5-325 mg (six) per tablet hours as needed for up to 10 days. Max Daily Amount: 4 tablets folic acid 2021-10 Yes 1000ug QD Take [address] [facility] ([facility]) 1 2-21 tablet [facility] tablet 00:00: (1,000 mcg Me dical 00 total) by Center mouth in the morning. folic acid 2021-10 Yes 1000ug QD Take [address] [facility] ([facility]) 1 2-21 tablet [facility] tablet 00:00: (1,000 mcg Me dical 00 total) by Center mouth in the morning. folic acid 2021-10 Yes 1000ug QD Take 1,[address] [facility] ([facility]) 1 2-21 mcg by [facility] tablet 00:00: mouth Medical 00 daily. [place] folic acid 2021-10 Yes 1000ug QD Take 1,[address] [facility] (FOL[facility]) 1 2-21 mcg by [facility] tablet 00:00: mouth Medical 00 daily. [place] folic acid 2021-10 Yes 1000ug QD Take 1,[address] [facility] ([facility]) 1 2-21 mcg by [facility] tablet 00:00: mouth Medical 00 daily. [place] folic acid 2021-10 Yes 1000ug QD Take 1,[address] [facility] ([facility]) 1 2-21 mcg by [facility] tablet 00:00: mouth Medical 00 daily. [place] folic acid 2021-10 Yes 1000ug QD Take [address] [facility] ([facility]) 1 2-21 tablet [facility] tablet 00:00: (1,000 mcg Me dical 00 total) by Center mouth in the morning. folic acid 2021-10 Yes 1000ug QD Take [address] [facility] ([facility]) 1 2-21 tablet [facility] tablet 00:00: (1,000 mcg Me dical 00 total) by Center mouth in the morning. folic acid 2021-10 Yes 1000ug QD Take [address] [facility] ([facility]) 1 2-21 tablet [facility] tablet 00:00: (1,000 mcg Me dical 00 total) by Center mouth in the morning. busPIRone 2021-10 Yes [id number] 10mg Take 1 [facility] 10 mg 1-30 tablet by ity of tablet 00:00: mouth 2 (two) Medical times Branch daily as needed (anxiety and depression ). busPIRone 2021-10 Yes [id number] 10mg Take 1 [facility] 10 mg 1-30 tablet by ity of tablet 00:00: mouth 2 (two) Medical times Branch daily as needed (anxiety and depression ). busPIRone 2021-10 Yes [id number] 10mg Take 1 [facility] 10 mg 1-30 tablet by ity of tablet 00:00: mouth (two) Medical times Branch daily as needed (anxiety and depression ). busPIRone 2021-10 Yes [id number] 10mg Take 1 [facility] 10 mg 1-30 tablet by ity of tablet 00:00: mouth (two) Medical times Branch daily as needed (anxiety and depression ). busPIRone 2021-10 Yes [id number] 10mg Take 1 [facility] 10 mg 1-30 tablet by ity of tablet 00:00: mouth 2 (two) Medical times Branch daily as needed (anxiety and depression ). busPIRone 2021-10 Yes [id number] 10mg Take 1 [facility] 10 mg 1-30 tablet by ity of tablet 00:00: mouth (two) Medical times Branch daily as needed (anxiety and depression ). busPIRone 2021-10 Yes [id number] 10mg Take 1 [facility] 10 mg 1-30 tablet by ity of tablet 00:00: mouth 2 (two) Medical times Branch daily as needed (anxiety and depression ). busPIRone 2021-10 Yes [id number] 10mg Take 1 [facility] 10 mg 1-30 tablet by ity of tablet 00:00: mouth 2 (two) Medical times Branch daily as needed (anxiety and depression ). busPIRone 2021-10 Yes [id number] 10mg Take 1 [facility] 10 mg 1-30 tablet by ity of tablet 00:00: mouth 2 (two) Medical times Branch daily as needed (anxiety and depression ). busPIRone 2021-10 Yes [id number] 10mg Take 1 [facility] 10 mg 1-30 tablet by ity of tablet 00:00: mouth 2 (two) Medical times Branch daily as needed (anxiety and depression ). busPIRone 2021-10 Yes [id number] 10mg Take 1 [facility] 10 mg 1-30 tablet by ity of tablet 00:00: mouth 2 (two) Medical times Branch daily as needed (anxiety and depression ). busPIRone 2021-10 Yes [id number] 10mg Take 1 [facility] 10 mg 1-30 tablet by ity of tablet 00:00: mouth 2 (two) Medical times Branch daily as needed (anxiety and depression ). busPIRone 2021-10 Yes [id number] 10mg Take 1 [facility] 10 mg 1-30 tablet by ity of tablet 00:00: mouth (two) Medical times Branch daily as needed (anxiety and depression ). busPIRone 2021-10 Yes [id number] 10mg Take 1 [facility] 10 mg 1-30 tablet by ity of tablet 00:00: mouth (two) Medical times Branch daily as needed (anxiety and depression ). busPIRone 2021-10 Yes [id number] 10mg Take 1 [facility] 10 mg 1-30 tablet by ity of tablet 00:00: mouth 2 (two) Medical times Branch daily as needed (anxiety and depression ). busPIRone 2021-10 Yes [id number] 10mg Take 1 [facility] 10 mg 1-30 tablet by ity of tablet 00:00: mouth 2 (two) Medical times Branch daily as needed (anxiety and depression ). busPIRone 2021-10 Yes [id number] 10mg Take 1 [facility] 10 mg 1-30 tablet by ity of tablet 00:00: mouth 2 (two) Medical times Branch daily as needed (anxiety and depression ). busPIRone 2021-10 Yes [id number] 10mg Take 1 [facility] 10 mg 1-30 tablet by ity of tablet 00:00: mouth (two) Medical times Branch daily as needed (anxiety and depression ). busPIRone 2021-10 Yes [id number] 10mg Take 1 [facility] 10 mg 1-30 tablet by ity of tablet 00:00: mouth (two) Medical times Branch daily as needed (anxiety and depression ). busPIRone 2021-10 Yes [id number] 10mg Take 1 [facility] 10 mg 1-30 tablet by ity of tablet 00:00: mouth (two) Medical times Branch daily as needed (anxiety and depression ). busPIRone 2021-10 Yes [id number] 10mg Take 1 [facility] 10 mg 1-30 tablet by ity of tablet 00:00: mouth (two) Medical times Branch daily as needed (anxiety and depression ). busPIRone 2021-10 Yes [id number] 10mg Take 1 [facility] 10 mg 1-30 tablet by ity of tablet 00:00: mouth (two) Medical times Branch daily as needed (anxiety and depression ). busPIRone 2021-10 Yes [id number] 10mg Take 1 [facility] 10 mg 1-30 tablet by ity of tablet 00:00: mouth (two) Medical times Branch daily as needed (anxiety and depression ). busPIRone 2021-10 Yes [id number] 10mg Take 1 [facility] 10 mg 1-30 tablet by ity of tablet 00:00: mouth (two) Medical times Branch daily as needed (anxiety and depression ). busPIRone 2021-10 Yes [id number] 10mg Take 1 [facility] 10 mg 1-30 tablet by ity of tablet 00:00: mouth (two) Medical times Branch daily as needed (anxiety and depression ). busPIRone 2021-10 Yes [id number] 10mg Take 1 [facility] 10 mg 1-30 tablet by ity of tablet 00:00: mouth (two) Medical times Branch daily as needed (anxiety and depression ). busPIRone 2021-10 Yes [id number] 10mg Take 1 [facility] 10 mg 1-30 tablet by ity of tablet 00:00: mouth 2 (two) Medical times Branch daily as needed (anxiety and depression ). busPIRone 2021-10 Yes [id number] 10mg Take 1 [facility] 10 mg 1-30 tablet by [facility]y of tablet 00:00: mouth (two) Medical times Branch daily as needed (anxiety and depression ). busPIRone 2021-10 Yes [id number] 10mg Take 1 [facility] 10 mg 1-30 tablet by [facility] of tablet 00:00: mouth (two) Medical times Branch daily as needed (anxiety and depression ). busPIRone 2021-10 Yes [id number] 10mg Take 1 [facility] 10 mg 1-30 tablet by [facility]y of tablet 00:00: mouth (two) Medical times Branch daily as needed (anxiety and depression ). busPIRone 2021-10 Yes [id number] 10mg Take 1 [facility] 10 mg 1-30 tablet by [facility]y of tablet 00:00: mouth (two) Medical times Branch daily as needed (anxiety and depression ). busPIRone 2021-10 Yes [id number] 10mg Take 1 [facility] 10 mg 1-30 tablet by [facility]y of tablet 00:00: mouth (two) Medical times Branch daily as needed (anxiety and depression ). busPIRone 2021-10 Yes [id number] 10mg Take 1 [facility] 10 mg 1-30 tablet by [facility]y of tablet 00:00: mouth (two) Medical times Branch daily as needed (anxiety and depression ). busPIRone 2021-10 Yes [id number] 10mg Take 1 [facility] 10 mg 1-30 tablet by [facility]y of tablet 00:00: mouth (two) Medical times Branch daily as needed (anxiety and depression ). busPIRone 2021-10 Yes [id number] 10mg Take 1 [facility] 10 mg 1-30 tablet by ity of tablet 00:00: mouth (two) Medical times Branch daily as needed (anxiety and depression ). busPIRone 2021-10 Yes [id number] 10mg Take 1 [facility] 10 mg 1-30 tablet by [facility]y of tablet 00:00: mouth (two) Medical times Branch daily as needed (anxiety and depression ). busPIRone 2021-10 Yes [id number] 10mg Take 1 [facility] 10 mg 1-30 tablet by ity of tablet 00:00: mouth 2 00 (two) Medical times Branch daily as needed (anxiety and depression ). busPIRone 2021-10 Yes [id number] 10mg Take 1 [facility] 10 mg 1-30 tablet by ity of tablet 00:00: mouth 2 00 (two) Medical times Branch daily as needed (anxiety and depression ). busPIRone 2021-10 Yes [id number] 10mg Take 1 [facility] 10 mg 1-30 tablet by ity of tablet 00:00: mouth 2 00 (two) Medical times Branch daily as needed (anxiety and depression ). busPIRone 2021-10 Yes [id number] 10mg Take 1 [facility] 10 mg 1-30 tablet by ity of tablet 00:00: mouth 2 (two) Medical times Branch daily as needed (anxiety and depression ). busPIRone 2021-10 Yes [id number] 10mg Take 1 [facility] 10 mg 1-30 tablet by ity of tablet 00:00: mouth 2 (two) Medical times Branch daily as needed (anxiety and depression ). busPIRone 2021-10 Yes [id number] 10mg Take 1 [facility] 10 mg 1-30 tablet by ity of tablet 00:00: mouth 2 (two) Medical times Branch daily as needed (anxiety and depression ). busPIRone 2021-10 Yes [id number] 10mg Take 1 [facility] 10 mg 1-30 tablet by [facility]y of tablet 00:00: mouth 2 (two) Medical times Branch daily as needed (anxiety and depression ). busPIRone 2021-10 Yes [id number] 10mg Take 1 [facility] 10 mg 1-30 tablet by [facility] of tablet 00:00: mouth 2 00 (two) Medical times Branch daily as needed (anxiety and depression ). busPIRone 2021-10 Yes [id number] 10mg Take 1 [facility] 10 mg 1-30 tablet by ity of tablet 00:00: mouth 2 00 (two) Medical times Branch daily as needed (anxiety and depression ). busPIRone 2021-10- No [id number] 10mg Take 1 [facility] 10 mg 1-30 -27 tablet by ity of tablet 00:00: 00:00 mouth 2 [place] 00 :00 (two) Medical times Branch daily as needed (anxiety and depression ). metFORMIN 2021-10 Yes [id number] 500mg Take 1 [facility] 500 mg 1-28 tablet by ity of tablet 00:00: mouth in [place] [address] the [facility] morning [place] and 1 tablet in the evening. Take with meals. metFORMIN 2021-10 Yes [id number] 500mg Take 1 [facility] 500 mg 1-28 tablet by ity of tablet 00:00: mouth in [address] morning [place] and 1 tablet in the evening. Take with meals. gabapentin 2021-10 Yes [id number] 100mg Take 1 [facility] 100 mg 1-28 capsule by ity of capsule 00:00: mouth in [address] and 1 capsule at noon and 1 capsule in the evening. metFORMIN 2021-10 Yes [id number] 500mg Take 1 [facility] 500 mg 1-28 tablet by ity of tablet 00:00: mouth in [address] and 1 tablet in the evening. Take with meals. gabapentin 2021-10 Yes [id number] 100mg Take 1 [facility] 100 mg 1-28 capsule by ity of capsule 00:00: mouth in [address] and 1 capsule at noon and 1 capsule in the evening. metFORMIN 2021-10 Yes [id number] 500mg Take 1 [facility] 500 mg 1-28 tablet by ity of tablet 00:00: mouth in [address] and 1 tablet in the evening. Take with meals. gabapentin 2021-10 Yes [id number] 100mg Take 1 [facility] 100 mg 1-28 capsule by ity of capsule 00:00: mouth in [address] and 1 capsule at noon and 1 capsule in the evening. metFORMIN 2021-10 Yes [id number] 500mg Take 1 [facility] 500 mg 1-28 tablet by ity of tablet 00:00: mouth in [address] and 1 tablet in the evening. Take with meals. gabapentin 2021-10 Yes [id number] 100mg Take 1 [facility] 100 mg 1-28 capsule by ity of capsule 00:00: mouth in [address] and 1 capsule at noon and 1 capsule in the evening. metFORMIN 2021-10 Yes [id number] 500mg Take 1 [facility] 500 mg 1-28 tablet by ity of tablet 00:00: mouth in [address] and 1 tablet in the evening. Take with meals. gabapentin 2021-10 Yes [id number] 100mg Take 1 [facility] 100 mg 1-28 capsule by ity of capsule 00:00: mouth in [address] and 1 capsule at noon and 1 capsule in the evening. metFORMIN 2021-10 Yes [id number] 500mg Take 1 [facility] 500 mg 1-28 tablet by ity of tablet 00:00: mouth in [address] and 1 tablet in the evening. Take with meals. gabapentin 2021-10 Yes [id number] 100mg Take 1 [facility] 100 mg 1-28 capsule by ity of capsule 00:00: mouth in [address] and 1 capsule at noon and 1 capsule in the evening. metFORMIN 2021-10 Yes [id number] 500mg Take 1 [facility] 500 mg 1-28 tablet by ity of tablet 00:00: mouth in [address] and 1 tablet in the evening. Take with meals. gabapentin 2021-10 Yes [id number] 100mg Take 1 [facility] 100 mg 1-28 capsule by ity of capsule 00:00: mouth in [address] and 1 capsule at noon and 1 capsule in the evening. metFORMIN 2021-10 Yes [id number] 500mg Take 1 [facility] 500 mg 1-28 tablet by ity of tablet 00:00: mouth in [address] and 1 tablet in the evening. Take with meals. gabapentin 2021-10 Yes [id number] 100mg Take 1 [facility] 100 mg 1-28 capsule by ity of capsule 00:00: mouth in [address] and 1 capsule at noon and 1 capsule in the evening. metFORMIN 2021-10 Yes [id number] 500mg Take 1 [facility] 500 mg 1-28 tablet by ity of tablet 00:00: mouth in [address] and 1 tablet in the evening. Take with meals. gabapentin 2021-10 Yes [id number] 100mg Take 1 [facility] 100 mg 1-28 capsule by ity of capsule 00:00: mouth in [address] and 1 capsule at noon and 1 capsule in the evening. metFORMIN 2021-10 Yes [id number] 500mg Take 1 [facility] 500 mg 1-28 tablet by ity of tablet 00:00: mouth in [address] morning [place] and 1 tablet in the evening. Take with meals. gabapentin 2021-10 Yes [id number] 100mg Take 1 [facility] 100 mg 1-28 capsule by ity of capsule 00:00: mouth in [address] morning [place] and 1 capsule at noon and 1 capsule in the evening. metFORMIN 2021-10 Yes [id number] 500mg Take 1 [facility] 500 mg 1-28 tablet by ity of tablet 00:00: mouth in [address] morning [place] and 1 tablet in the evening. Take with meals. gabapentin 2021-10 Yes [id number] 100mg Take 1 [facility] 100 mg 1-28 capsule by it[facility] of capsule 00:00: mouth in [address] and 1 capsule at noon and 1 capsule in the evening. metFORMIN 2021-10 Yes [id number] 500mg Take 1 [facility] 500 mg 1-28 tablet by ity of tablet 00:00: mouth in [address] and 1 tablet in the evening. Take with meals. gabapentin 2021-10 Yes [id number] 100mg Take 1 [facility] 100 [facility] 1-28 capsule by [facility] of capsule 00:00: mouth in [address] and 1 capsule at noon and 1 capsule in the evening. metFORMIN 2021-10 Yes [id number] 500mg Take 1 [facility] 500 mg 1-28 tablet by [facility] of tablet 00:00: mouth in [address] and 1 tablet in the evening. Take with meals. gabapentin 2021-10 Yes [id number] 100mg Take 1 [facility] 100 mg 1-28 capsule by it[facility] of capsule 00:00: mouth in [address] and 1 capsule at noon and 1 capsule in the evening. metFORMIN 2021-10 Yes [id number] 500mg Take 1 [facility] 500 mg 1-28 tablet by [facility] of tablet 00:00: mouth in [address] and 1 tablet in the evening. Take with meals. gabapentin 2021-10 Yes [id number] 100mg Take 1 [facility] 100 mg 1-28 capsule by [facility] of capsule 00:00: mouth in [address] and 1 capsule at noon and 1 capsule in the evening. metFORMIN 2021-10 Yes [id number] 500mg Take 1 [facility] 500 mg 1-28 tablet by [facility] of tablet 00:00: mouth in [address] and 1 tablet in the evening. Take with meals. gabapentin 2021-10 Yes [id number] 100mg Take 1 [facility] 100 mg 1-28 capsule by [facility] of capsule 00:00: mouth in [address] morning [place] and 1 capsule at noon and 1 capsule in the evening. metFORMIN 2021-10 Yes [id number] 500mg Take 1 [facility] 500 mg 1-28 tablet by it[facility] of tablet 00:00: mouth in [address] and 1 tablet in the evening. Take with meals. gabapentin 2021-10 Yes [id number] 100mg Take 1 [facility] 100 mg 1-28 capsule by [facility] of capsule 00:00: mouth in [address] and 1 capsule at noon and 1 capsule in the evening. metFORMIN 2021-10 Yes [id number] 500mg Take 1 [facility] 500 mg 1-28 tablet by [facility] of tablet 00:00: mouth in [address] and 1 tablet in the evening. Take with meals. gabapentin 2021-10 Yes [id number] 100mg Take 1 [facility] 100 mg 1-28 capsule by [facility] of capsule 00:00: mouth in [address] and 1 capsule at noon and 1 capsule in the evening. metFORMIN 2021-10 Yes [id number] 500mg Take 1 [facility] 500 mg 1-28 tablet by [facility] of tablet 00:00: mouth in [address] and 1 tablet in the evening. Take with meals. gabapentin 2021-10 Yes [id number] 100mg Take 1 [facility] 100 mg 1-28 capsule by [facility] of capsule 00:00: mouth in [address] and 1 capsule at noon and 1 capsule in the evening. metFORMIN 2021-10 Yes [id number] 500mg Take 1 [facility] 500 mg 1-28 tablet by [facility] of tablet 00:00: mouth in [address] and 1 tablet in the evening. Take with meals. gabapentin 2021-10 Yes [id number] 100mg Take 1 [facility] 100 mg 1-28 capsule by [facility] of capsule 00:00: mouth in [address] and 1 capsule at noon and 1 capsule in the evening. metFORMIN 2021-10 Yes [id number] 500mg Take 1 [facility] 500 mg 1-28 tablet by [facility] of tablet 00:00: mouth in [address] and 1 tablet in the evening. Take with meals. gabapentin 2021-10 Yes [id number] 100mg Take 1 [facility] 100 mg 1-28 capsule by [facility] of capsule 00:00: mouth in [address] and 1 capsule at noon and 1 capsule in the evening. metFORMIN 2021-10 Yes [id number] 500mg Take 1 [facility] 500 mg 1-28 tablet by [facility] of tablet 00:00: mouth in [address] and 1 tablet in the evening. Take with meals. gabapentin 2021-10 Yes [id number] 100mg Take 1 [facility] 100 mg 1-28 capsule by [facility] of capsule 00:00: mouth in [address] and 1 capsule at noon and 1 capsule in the evening. metFORMIN 2021-10 Yes [id number] 500mg Take 1 [facility] 500 mg 1-28 tablet by [facility] of tablet 00:00: mouth in [address] and 1 tablet in the evening. Take with meals. gabapentin 2021-10 Yes [id number] 100mg Take 1 [facility] 100 mg 1-28 capsule by [facility] of capsule 00:00: mouth in [address] and 1 capsule at noon and 1 capsule in the evening. gabapentin 2021-10 Yes [id number] 100mg Take 1 [facility] 100 mg 1-28 capsule by [facility]y of capsule 00:00: mouth in [address] and 1 capsule at noon and 1 capsule in the evening. gabapentin 2021-10 Yes [id number] 100mg Take 1 [facility] 100 mg 1-28 capsule by [facility] of capsule 00:00: mouth in [address] and 1 capsule at noon and 1 capsule in the evening. gabapentin 2021-10 Yes [id number] 100mg Take 1 [facility] 100 mg 1-28 capsule by ity of capsule 00:00: mouth in [address] and 1 capsule at noon and 1 capsule in the evening. gabapentin 2021-10 Yes [id number] 100mg Take 1 [facility] 100 mg 1-28 capsule by [facility] of capsule 00:00: mouth in [place] 00 the Medical morning Branch and 1 capsule at noon and 1 capsule in the evening. gabapentin 2021-10- No [id number] 100mg Take 1 [facility] 100 mg 11-17 capsule by ity of capsule 00:00: 00:00 mouth in [place] 00 :00 the Medical morning Branch and 1 capsule at noon and 1 capsule in the evening. gabapentin 2021-10- No [id number] 100mg Take 1 [facility] 100 mg 11-17 capsule by it[facility] of capsule 00:00: 00:00 mouth in [place] 00 :00 the Medical morning Branch and 1 capsule at noon and 1 capsule in the evening. gabapentin 2021-10- No [id number] 100mg Take 1 [facility] 100 mg 11-17 capsule by [facility] of capsule 00:00: 00:00 mouth in [place] 00 :00 the Medical morning Branch and 1 capsule at noon and 1 capsule in the evening. gabapentin 2021-10- No [id number] 100mg Take 1 [facility] 100 mg 11-17 capsule by ity of capsule 00:00: 00:00 mouth in [place] 00 :00 the Medical morning Branch and 1 capsule at noon and 1 capsule in the evening. gabapentin 2021-10- No [id number] 100mg Take 1 [facility] 100 mg 11-17 capsule by ity of capsule 00:00: 00:00 mouth in [place] 00 :00 the [facility] morning [place] and 1 capsule at noon and 1 capsule in the evening. metFORMIN 2021-103- No [id number] 500mg Take 1 [facility] 500 mg 11-17 tablet by ity of tablet 00:00: 00:00 mouth in [place] 00 :00 the [facility] morning [place] and 1 tablet in the evening. Take with meals. metFORMIN 2021-103- No [id number] 500mg Take 1 [facility] 500 mg 11-17- tablet by ity of tablet 00:00: 00:00 mouth in [place] 00 :00 the [facility] morning Branch and 1 tablet in the evening. Take with meals. metFORMIN 2021-10- No [id number] 500mg Take 1 [facility] 500 mg 11-17- tablet by ity of tablet 00:00: 00:00 mouth in [place] 00 :00 the [facility] and 1 tablet in the evening. Take with meals. metFORMIN 2021-103- No [id number] 500mg Take 1 [facility] 500 mg 11-17 tablet by ity of tablet 00:00: 00:00 mouth in [place] 00 :00 the [facility] and 1 tablet in the evening. Take with meals. erythromyci 2021-10 Yes 500mg Q.25D Take [address] [facility] 00:00: (500 mg Medic al 500 MG 00 total) by Center tablet mouth in the morning and 1 tablet (500 mg total) at noon and 1 tablet (500 mg total) in the evening and 1 tablet (500 mg total) before bedtime. erythromyci 2021-10 Yes 500mg Q.25D Take [address] [facility] [address] [facility] ([facility]) 00:00: (500 mg Medic al 500 MG 00 total) by Center tablet mouth in the morning and 1 tablet (500 mg total) at noon and 1 tablet (500 mg total) in the evening and 1 tablet (500 mg total) before bedtime. erythromyci 2021-10 Yes 500mg Q.25D Take [address] [facility] [address] [facility] 1[facility] mg by [facility] ([facility]) 00:00: mouth 4 [facility] 500 MG 00 (four) Center tablet times daily. erythromyci 2021-10 Yes 500mg Q.25D Take [address] [facility] [address] [facility] 1[facility] mg by [facility] ([facility]) 00:00: mouth 4 [facility] al 500 MG 00 (four) Center tablet times daily. erythromyci 2021- Yes 500mg Q.25D Take [address] [facility] [address] [facility] mg by [facility] ([facility]) 00:00: mouth 4 Medic al 500 MG 00 (four) Center tablet times daily. erythromyci 2021- Yes 500mg Q.25D Take [address] [facility] [address] [facility] 1[facility] mg by [facility] ([facility]) 00:00: mouth 4 Medic al 500 MG 00 (four) Center tablet times daily. erythromyci 2021- Yes 500mg Q.25D Take [address] [facility] [address] [facility] 1[facility] ([facility]CIN) 00:00: (500 mg Medic al 500 MG 00 total) by Center tablet mouth in the morning and 1 tablet (500 mg total) at noon and 1 tablet (500 mg total) in the evening and 1 tablet (500 mg total) before bedtime. erythromyci 2021-10 Yes 500mg Q.25D Take [address] [facility] [address] [facility] (E-[facility]CIN) 00:00: (500 mg Medic al 500 MG 00 total) by Center tablet mouth in the morning and 1 tablet (500 mg total) at noon and 1 tablet (500 mg total) in the evening and 1 tablet (500 mg total) before bedtime. erythromyci 2021-10 Yes 500mg Q.25D Take [address] [facility] [address] [facility] 1[facility] (E-MYCIN) 00:00: (500 mg Medic al 500 MG 00 total) by Center tablet mouth in the morning and 1 tablet (500 mg total) at noon and 1 tablet (500 mg total) in the evening and 1 tablet (500 mg total) before bedtime. metFORMIN 2021-10- No 500mg Take 500 [facility] 500 mg 1-18 11-18 mg by ity of tablet 11:33: 00:00 mouth 2 [place] 14 :00 (two) Medical times Branch daily with meals. Takes 2 tablets twice daily metFORMIN 2021-10- No 500mg Take 500 [facility] 500 mg 1-18 11-18 mg by ity of tablet 11:33: 00:00 mouth 2 [place] 14 :00 (two) Medical times Branch daily with meals. Takes 2 tablets twice daily metFORMIN 2021-10- No 500mg Take 500 [facility] 500 mg 1-18 11-18 mg by ity of tablet 11:33: 00:00 mouth 2 [place] 14 :00 (two) Medical times Branch daily with meals. Takes 2 tablets twice daily metFORMIN 2021-10- No 500mg Take 500 [facility] 500 mg 1-18 11-18 mg by ity of tablet 11:33: 00:00 mouth 2 [place] 14 :00 (two) Medical times Branch daily with meals. Takes 2 tablets twice daily metFORMIN 2021-10- No 500mg Take 500 [facility] 500 mg 1-18 11-18 mg by ity of tablet 11:33: 00:00 mouth 2 [place] 14 :00 (two) Medical times Branch daily with meals. [facility] [address] [facility] Take by [facility] in 11-07 mouth ity of ([facility]) 11:21: 00:00 daily. [facility] 25 mg Tab 06 :[address] [facility] Take by [facility] in 11-07 mouth ity of ([place]) 11:21: 00:00 daily. [facility] 25 mg Tab 06 :[address] [facility] Take by [facility] in 11-07 mouth ity of ([place]) 11:21: 00:00 daily. [facility] 25 mg Tab 06 :[address] [facility] No Take by [facility] in 11-07 mouth ity of ([place]) 11:21: 00:00 daily. [facility] 25 mg Tab 06 :00 [facility] Take by [facility] in [...] Indication s: chronic pain carvediloL 2021-10 Yes [id number] 12.5mg Take 1 [facility] 12.5 mg 1-18 tablet by ity of tablet 00:00: mouth in [place] 00 the Medical morning Branch and 1 tablet in the evening. Take with meals. ondansetron 2021-10 Yes [id number] 4mg Take 1 [facility] 4 mg 1-18 tablet by ity of disintegrat 00:00: mouth [place] ing tablet 00 every 8 Medica l (eight) Branch hours as needed for Nausea and Vomiting (N/V). tirzepatide 2021-10 Yes [id number] 2.5mg inject 2.5 [facility] ([facility]) 1-18 mg under ity o f 2.5 mg/0.5 00:00: the skin [place] PnIj 00 weekly. Medical Start Branch 2.5mg SC qWeek x 4 Weeks, then increase to 5 mg SC qWeek tirzepatide 2021-10 Yes [id number] 5mg inject 5 [facility] ([facility]AR[facility]) 1-18 mg under ity o f 5 mg/0.5 mL 00:00: the skin [place] PnIj 00 weekly. Medical Start Branch 2.5mg SC qWeek x 4 Weeks, then increase to 5 mg SC qWeek metFORMIN 2021-10 Yes [id number] 500mg Take 1 [facility] nivers 500 mg [...] Indication s: chronic pain carvediloL 2021-10 Yes [id number] 12.5mg Take 1 [facility] 12.5 mg 1-18 tablet by ity of tablet 00:00: mouth in [place] 00 the Medical morning Branch and 1 tablet in the evening. Take with meals. ondansetron 2021-10 Yes [id number] 4mg Take 1 [facility] 4 mg 1-18 tablet by ity of disintegrat 00:00: mouth [place] ing tablet 00 every 8 Medica l (eight) Branch hours as needed for Nausea and Vomiting (N/V). tirzepatide 2021-10 Yes [id number] 2.5mg inject 2.5 [facility] ([facility]) 1-18 mg under ity o f 2.5 mg/0.5 00:00: the skin [place] PnIj 00 weekly. Medical Start Branch 2.5mg SC qWeek x 4 Weeks, then increase to 5 mg SC qWeek tirzepatide 2021-10 Yes [id number] 5mg inject 5 [facility] ([facility]AR[facility]) 1-18 mg under ity o f 5 mg/0.5 mL 00:00: the skin [place] PnIj 00 weekly. Medical Start Branch 2.5mg SC qWeek x 4 Weeks, then increase to 5 mg SC qWeek metFORMIN 2021-10 Yes [id number] 500mg Take 1 [facility] nivers 500 mg [...] Indication s: chronic pain carvediloL 2021-10 Yes [id number] 12.5mg Take 1 [facility] 12.5 mg 1-18 tablet by ity of tablet 00:00: mouth in [place] 00 the Medical morning Branch and 1 tablet in the evening. Take with meals. ondansetron 2021-10 Yes [id number] 4mg Take 1 [facility] 4 mg 1-18 tablet by ity of disintegrat 00:00: mouth [place] ing tablet 00 every 8 Medica l (eight) Branch hours as needed for Nausea and Vomiting (N/V). tirzepatide 2021-10 Yes [id number] 2.5mg inject 2.5 [facility] ([facility]) 1-18 mg under ity o f 2.5 mg/0.5 00:00: the skin [place] PnIj 00 weekly. Medical Start Branch 2.5mg SC qWeek x 4 Weeks, then increase to 5 mg SC qWeek tirzepatide 2021-10 Yes [id number] 5mg inject 5 [facility] ([facility]) 1-18 mg under ity o f 5 mg/0.5 mL 00:00: the skin [place] PnIj 00 weekly. Medical Start Branch 2.5mg SC qWeek x 4 Weeks, then increase to 5 mg SC qWeek metFORMIN 2021-10 Yes [id number] 500mg Take 1 [facility] nivers 500 mg [...] Indication s: chronic pain carvediloL 2021-10 Yes [id number] 12.5mg Take 1 [facility] 12.5 mg 1-18 tablet by ity of tablet 00:00: mouth in [place] 00 the Medical morning Branch and 1 tablet in the evening. Take with meals. ondansetron 2021-10 Yes [id number] 4mg Take 1 [facility] 4 mg 1-18 tablet by ity of disintegrat 00:00: mouth [place] ing tablet 00 every 8 Medica l (eight) Branch hours as needed for Nausea and Vomiting (N/V). tirzepatide 2021-10 Yes [id number] 2.5mg inject 2.5 [facility] ([facility]) 1-18 mg under ity o f 2.5 mg/0.5 00:00: the skin [place] PnIj 00 weekly. Medical Start Branch 2.5mg SC qWeek x 4 Weeks, then increase to 5 mg SC qWeek tirzepatide 2021-10 Yes [id number] 5mg inject 5 [facility] ([facility]) 1-18 mg under ity o f 5 mg/0.5 mL 00:00: the skin [place] PnIj 00 weekly. Medical Start Branch 2.5mg SC qWeek x 4 Weeks, then increase to 5 mg SC qWeek metFORMIN 2021-10 Yes [id number] 500mg Take 1 [facility] 500 mg 1-18 tablet by ity of tablet 00:00: mouth in [place] 00 the Medical morning Branch and 1 tablet in the evening. Take with meals. Takes 2 tablets twice daily traMADoL 50 2021-10 Yes [id number] 50mg Take 1 [facility] ers mg tablet 1-18 tablet by ity o f 00:00: mouth [place] 00 every 6 Medical (six) Branch hours as needed for Pain (scale 7-10) (Cannot take NSAIDS). Indication s: chronic pain carvediloL 2021-10 Yes [id number] 12.5mg Take 1 [facility] 12.5 mg 1-18 tablet by ity of tablet 00:00: mouth in [place] 00 the Medical morning Branch and 1 tablet in the evening. Take with meals. ondansetron 2021-10 Yes [id number] 4mg Take 1 [facility] 4 mg 1-18 tablet by ity of disintegrat 00:00: mouth [place] ing tablet 00 every 8 Medica l (eight) Branch hours as needed for Nausea and Vomiting (N/V). tirzepatide 2021-10 Yes [id number] 2.5mg inject 2.5 [facility] ([facility]) 1-18 mg under ity o f 2.5 mg/0.5 00:00: the skin [place] PnIj 00 weekly. Medical Start Branch 2.5mg SC qWeek x 4 Weeks, then increase to 5 mg SC qWeek tirzepatide 2021-10 Yes [id number] 5mg inject 5 [facility] ([facility]) 1-18 mg under ity o f 5 mg/0.5 mL 00:00: the skin [place] PnIj 00 weekly. Medical Start Branch 2.5mg SC qWeek x 4 Weeks, then increase to 5 mg SC qWeek metFORMIN 2021-10 Yes [id number] 500mg Take 1 [facility] nivers 500 mg [...] Indication s: chronic pain carvediloL 2021-10 Yes [id number] 12.5mg Take 1 [facility] 12.5 mg 1-18 tablet by ity of tablet 00:00: mouth in [place] 00 the Medical morning Branch and 1 tablet in the evening. Take with meals. ondansetron 2021-10 Yes [id number] 4mg Take 1 [facility] 4 mg 1-18 tablet by ity of disintegrat 00:00: mouth [place] ing tablet 00 every 8 Medica l (eight) Branch hours as needed for Nausea and Vomiting (N/V). tirzepatide 2021-10 Yes [id number] 2.5mg inject 2.5 [facility] ([facility]) 1-18 mg under ity o f 2.5 mg/0.5 00:00: the skin [place] PnIj 00 weekly. Medical Start Branch 2.5mg SC qWeek x 4 Weeks, then increase to 5 mg SC qWeek tirzepatide 2021-10 Yes [id number] 5mg inject 5 [facility] ([facility]OUN[facility]AR[facility]) 1-18 mg [...] Indication s: chronic pain carvediloL 2021-10 Yes [id number] 12.5mg Take 1 [facility] 12.5 mg 1-18 tablet by ity of tablet 00:00: mouth in [place] 00 the Medical morning Branch and 1 tablet in the evening. Take with meals. ondansetron 2021-10 Yes [id number] 4mg Take 1 [facility] 4 mg 1-18 tablet by ity of disintegrat 00:00: mouth [place] ing tablet 00 every 8 Medica l (eight) Branch hours as needed for Nausea and Vomiting (N/V). tirzepatide 2021-10 Yes [id number] 2.5mg inject 2.5 [facility] ([facility]) 1-18 mg under ity o f 2.5 mg/0.5 00:00: the skin [place] PnIj 00 weekly. Medical Start Branch 2.5mg SC qWeek x 4 Weeks, then increase to 5 mg SC qWeek tirzepatide 2021-10 Yes [id number] 5mg inject 5 [facility] ([facility]) 1-18 mg [...] Indication s: chronic pain carvediloL 2021-10 Yes [id number] 12.5mg Take 1 [facility] 12.5 mg 1-18 tablet by ity of tablet 00:00: mouth in [place] 00 the Medical morning Branch and 1 tablet in the evening. Take with meals. ondansetron 2021-10 Yes [id number] 4mg Take 1 [facility] 4 mg 1-18 tablet by ity of disintegrat 00:00: mouth [place] ing tablet 00 every 8 Medica l (eight) Branch hours as needed for Nausea and Vomiting (N/V). tirzepatide 2021-10 Yes [id number] 2.5mg inject 2.5 [facility] ([facility]) 1-18 mg under ity o f 2.5 mg/0.5 00:00: the skin [place] PnIj 00 weekly. Medical Start Branch 2.5mg SC qWeek x 4 Weeks, then increase to 5 mg SC qWeek tirzepatide 2021-10 Yes [id number] 5mg inject 5 [facility] ([facility]) 1-18 mg [...] Indication s: chronic pain carvediloL 2021-10 Yes [id number] 12.5mg Take 1 [facility] 12.5 mg 1-18 tablet by ity of tablet 00:00: mouth in [place] 00 the Medical morning Branch and 1 tablet in the evening. Take with meals. ondansetron 2021-10 Yes [id number] 4mg Take 1 [facility] 4 mg 1-18 tablet by ity of disintegrat 00:00: mouth [place] ing tablet 00 every 8 Medica l (eight) Branch hours as needed for Nausea and Vomiting (N/V). tirzepatide 2021-10 Yes [id number] 2.5mg inject 2.5 [facility] ([facility]) 1-18 mg under ity o f 2.5 mg/0.5 00:00: the skin [place] PnIj 00 weekly. Medical Start Branch 2.5mg SC qWeek x 4 Weeks, then increase to 5 mg SC qWeek tirzepatide 2021-10 Yes [id number] 5mg inject 5 [facility] ([facility]) 1-18 mg [...] Indication s: chronic pain carvediloL 2021-10 Yes [id number] 12.5mg Take 1 [facility] 12.5 mg 1-18 tablet by ity of tablet 00:00: mouth in [place] 00 the Medical morning Branch and 1 tablet in the evening. Take with meals. ondansetron 2021-10 Yes [id number] 4mg Take 1 [facility] 4 mg 1-18 tablet by ity of disintegrat 00:00: mouth [place] ing tablet 00 every 8 Medica l (eight) Branch hours as needed for Nausea and Vomiting (N/V). tirzepatide 2021-10 Yes [id number] 2.5mg inject 2.5 [facility] ([facility]) 1-18 mg under ity o f 2.5 mg/0.5 00:00: the skin [place] PnIj 00 weekly. Medical Start Branch 2.5mg SC qWeek x 4 Weeks, then increase to 5 mg SC qWeek tirzepatide 2021-10 Yes [id number] 5mg inject 5 [facility] ([facility]) 1-18 mg [...] Indication s: chronic pain carvediloL 2021-10 Yes [id number] 12.5mg Take 1 [facility] 12.5 mg 1-18 tablet by ity of tablet 00:00: mouth in [place] 00 the Medical morning Branch and 1 tablet in the evening. Take with meals. ondansetron 2021-10 Yes [id number] 4mg Take 1 [facility] 4 mg 1-18 tablet by ity of disintegrat 00:00: mouth [place] ing tablet 00 every 8 Medica l (eight) Branch hours as needed for Nausea and Vomiting (N/V). tirzepatide 2021-10 Yes [id number] 2.5mg inject 2.5 [facility] ([facility]) 1-18 mg under ity o f 2.5 mg/0.5 00:00: the skin [place] PnIj 00 weekly. Medical Start Branch 2.5mg SC qWeek x 4 Weeks, then increase to 5 mg SC qWeek tirzepatide 2021-10 Yes [id number] 5mg inject 5 [facility] ([facility]) 1-18 mg [...] Indication s: chronic pain carvediloL 2021-10 Yes [id number] 12.5mg Take 1 [facility] 12.5 mg 1-18 tablet by ity of tablet 00:00: mouth in [place] 00 the Medical morning Branch and 1 tablet in the evening. Take with meals. ondansetron 2021-10 Yes [id number] 4mg Take 1 [facility] 4 mg 1-18 tablet by ity of disintegrat 00:00: mouth [place] ing tablet 00 every 8 Medica l (eight) Branch hours as needed for Nausea and Vomiting (N/V). tirzepatide 2021-10 Yes [id number] 2.5mg inject 2.5 [facility] ([facility]) 1-18 mg under ity o f 2.5 mg/0.5 00:00: the skin [place] PnIj 00 weekly. Medical Start Branch 2.5mg SC qWeek x 4 Weeks, then increase to 5 mg SC qWeek tirzepatide 2021-10 Yes [id number] 5mg inject 5 [facility] ([facility]) 1-18 mg [...] Indication s: chronic pain carvediloL 2021-10 Yes [id number] 12.5mg Take 1 [facility] 12.5 mg 1-18 tablet by ity of tablet 00:00: mouth in [place] 00 the Medical morning Branch and 1 tablet in the evening. Take with meals. ondansetron 2021-10 Yes [id number] 4mg Take 1 [facility] 4 mg 1-18 tablet by ity of disintegrat 00:00: mouth [place] ing tablet 00 every 8 Medica l (eight) Branch hours as needed for Nausea and Vomiting (N/V). tirzepatide 2021-10 Yes [id number] 2.5mg inject 2.5 [facility] ([facility]) 1-18 mg under ity o f 2.5 mg/0.5 00:00: the skin [place] PnIj 00 weekly. Medical Start Branch 2.5mg SC qWeek x 4 Weeks, then increase to 5 mg SC qWeek tirzepatide 2021-10 Yes [id number] 5mg inject 5 [facility] ([facility]) 1-18 mg [...] Indication s: chronic pain carvediloL 2021-10 Yes [id number] 12.5mg Take 1 [facility] 12.5 mg 1-18 tablet by ity of tablet 00:00: mouth in [place] 00 the Medical morning Branch and 1 tablet in the evening. Take with meals. ondansetron 2021-10 Yes [id number] 4mg Take 1 [facility] 4 mg 1-18 tablet by ity of disintegrat 00:00: mouth [place] ing tablet 00 every 8 Medica l (eight) Branch hours as needed for Nausea and Vomiting (N/V). tirzepatide 2021-10 Yes [id number] 2.5mg inject 2.5 [facility] ([facility]) 1-18 mg under ity o f 2.5 mg/0.5 00:00: the skin [place] PnIj 00 weekly. Medical Start Branch 2.5mg SC qWeek x 4 Weeks, then increase to 5 mg SC qWeek tirzepatide 2021-10 Yes [id number] 5mg inject 5 [facility] ([facility]) 1-18 mg [...] Indication s: chronic pain carvediloL 2021-10 Yes [id number] 12.5mg Take 1 [facility] 12.5 mg 1-18 tablet by ity of tablet 00:00: mouth in [place] 00 the Medical morning Branch and 1 tablet in the evening. Take with meals. ondansetron 2021-10 Yes [id number] 4mg Take 1 [facility] 4 mg 1-18 [...] Indication s: chronic pain carvediloL 2021-10 Yes [id number] 12.5mg Take 1 [facility] 12.5 mg 1-18 tablet by ity of tablet 00:00: mouth in [place] 00 the Medical morning Branch and 1 tablet in the evening. Take with meals. ondansetron 2021-10 Yes [id number] 4mg Take 1 [facility] 4 mg 1-18 [...] Indication s: chronic pain carvediloL 2021-10 Yes [id number] 12.5mg Take 1 [facility] 12.5 mg 1-18 tablet by ity of tablet 00:00: mouth in [place] 00 the Medical morning Branch and 1 tablet in the evening. Take with meals. ondansetron 2021-10 Yes [id number] 4mg Take 1 [facility] 4 mg 1-18 [...] Indication s: chronic pain carvediloL 2021-10 Yes [id number] 12.5mg Take 1 [facility] 12.5 mg 1-18 tablet by ity of tablet 00:00: mouth in [place] 00 the Medical morning Branch and 1 tablet in the evening. Take with meals. ondansetron 2021-10 Yes [id number] 4mg Take 1 [facility] 4 mg 1-18 [...] Indication s: chronic pain carvediloL 2021-10 Yes [id number] 12.5mg Take 1 [facility] 12.5 mg 1-18 tablet by ity of tablet 00:00: mouth in [place] 00 the Medical morning Branch and 1 tablet in the evening. Take with meals. ondansetron 2021-10 Yes [id number] 4mg Take 1 [facility] 4 mg 1-18 [...] Indication s: chronic pain carvediloL 2021-10 Yes [id number] 12.5mg Take 1 [facility] 12.5 mg 1-18 tablet by ity of tablet 00:00: mouth in [place] 00 the Medical morning Branch and 1 tablet in the evening. Take with meals. ondansetron 2021-10 Yes [id number] 4mg Take 1 [facility] 4 mg 1-18 [...] Indication s: chronic pain carvediloL 2021-10 Yes [id number] 12.5mg Take 1 [facility] 12.5 mg 1-18 tablet by ity of tablet 00:00: mouth in [place] 00 the Medical morning Branch and 1 tablet in the evening. Take with meals. ondansetron 2021-10 Yes [id number] 4mg Take 1 [facility] 4 mg 1-18 [...] Indication s: chronic pain carvediloL 2021-10 Yes [id number] 12.5mg Take 1 [facility] 12.5 mg 1-18 tablet by ity of tablet 00:00: mouth in [place] 00 the Medical morning Branch and 1 tablet in the evening. Take with meals. ondansetron 2021-10 Yes [id number] 4mg Take 1 [facility] 4 mg 1-18 [...] Indication s: chronic pain carvediloL 2021-10 Yes [id number] 12.5mg Take 1 [facility] 12.5 mg 1-18 tablet by ity of tablet 00:00: mouth in [place] 00 the Medical morning Branch and 1 tablet in the evening. Take with meals. ondansetron 2021-10 Yes [id number] 4mg Take 1 [facility] 4 mg 1-18 [...] Indication s: chronic pain carvediloL 2021-10 Yes [id number] 12.5mg Take 1 [facility] 12.5 mg 1-18 tablet by [facility] of tablet 00:00: mouth in [place] 00 the Medical morning Branch and 1 tablet in the evening. Take with meals. ondansetron 2021-10 Yes [id number] 4mg Take 1 [facility] 4 mg 1-18 [...] Indication s: chronic pain carvediloL 2021-10 Yes [id number] 12.5mg Take 1 [facility] 12.5 mg 1-18 tablet by [facility] of tablet 00:00: mouth in [place] 00 the Medical morning Branch and 1 tablet in the evening. Take with meals. ondansetron 2021-10 Yes [id number] 4mg Take 1 [facility] 4 mg 1-18 [...] Indication s: chronic pain carvediloL 2021-10 Yes [id number] 12.5mg Take 1 [facility] 12.5 mg 1-18 tablet by [facility] of tablet 00:00: mouth in [place] 00 the Medical morning Branch and 1 tablet in the evening. Take with meals. ondansetron 2021-10 Yes [id number] 4mg Take 1 [facility] 4 mg 1-18 [...] Indication s: chronic pain carvediloL 2021-10 Yes [id number] 12.5mg Take 1 [facility] 12.5 mg 1-18 tablet by [facility] of tablet 00:00: mouth in [place] 00 the Medical morning Branch and 1 tablet in the evening. Take with meals. ondansetron 2021-10 Yes [id number] 4mg Take 1 [facility] 4 mg 1-18 [...] Indication s: chronic pain carvediloL 2021-10 Yes [id number] 12.5mg Take 1 [facility] 12.5 mg 1-18 tablet by [facility] of tablet 00:00: mouth in [place] 00 the Medical morning Branch and 1 tablet in the evening. Take with meals. ondansetron 2021-10 Yes [id number] 4mg Take 1 [facility] 4 mg 1-18 [...] Indication s: chronic pain carvediloL 2021-10 Yes [id number] 12.5mg Take 1 [facility] 12.5 mg 1-18 tablet by [facility] of tablet 00:00: mouth in [place] 00 the Medical morning Branch and 1 tablet in the evening. Take with meals. ondansetron 2021-10 Yes [id number] 4mg Take 1 [facility] 4 mg 1-18 [...] Indication s: chronic pain carvediloL 2021-10 Yes [id number] 12.5mg Take 1 [facility] 12.5 mg 1-18 tablet by [facility]y of tablet 00:00: mouth in [place] 00 the Medical morning Branch and 1 tablet in the evening. Take with meals. ondansetron 2021-10 Yes [id number] 4mg Take 1 [facility] 4 mg 1-18 tablet by ity of disintegrat 00:00: mouth [place] ing tablet 00 every 8 Medica l (eight) Branch hours as needed for Nausea and Vomiting (N/V). carvediloL 2021-10 Yes [id number] 12.5mg Take 1 [facility] 12.5 mg 1-18 tablet by ity of tablet 00:00: mouth in [place] 00 the Medical morning Branch and 1 tablet in the evening. Take with meals. ondansetron 2021-10 Yes [id number] 4mg Take 1 [facility] 4 mg 1-18 tablet by ity of disintegrat 00:00: mouth [place] ing tablet 00 every 8 Medica l (eight) Branch hours as needed for Nausea and Vomiting (N/V). carvediloL 2021-10 Yes [id number] 12.5mg Take 1 [facility] 12.5 mg 1-18 tablet by ity of tablet 00:00: mouth in [place] 00 the Medical morning Branch and 1 tablet in the evening. Take with meals. ondansetron 2021-10 Yes [id number] 4mg Take 1 [facility] 4 mg 1-18 tablet by ity of disintegrat 00:00: mouth [place] ing tablet 00 every 8 Medica l (eight) Branch hours as needed for Nausea and Vomiting (N/V). carvediloL 2021-10 Yes [id number] 12.5mg Take 1 [facility] 12.5 mg 1-18 tablet by ity of tablet 00:00: mouth in [place] 00 the Medical morning Branch and 1 tablet in the evening. Take with meals. ondansetron 2021-10 Yes [id number] 4mg Take 1 [facility] 4 mg 1-18 tablet by ity of disintegrat 00:00: mouth [place] ing tablet 00 every 8 Medica l (eight) Branch hours as needed for Nausea and Vomiting (N/V). carvediloL 2021-10 Yes [id number] 12.5mg Take 1 [facility] 12.5 mg 1-18 tablet by ity of tablet 00:00: mouth in [place] 00 the Medical morning Branch and 1 tablet in the evening. Take with meals. ondansetron 2021-10 Yes [id number] 4mg Take 1 [facility] 4 mg 1-18 tablet by ity of disintegrat 00:00: mouth [place] ing tablet 00 every 8 Medica l (eight) Branch hours as needed for Nausea and Vomiting (N/V). carvediloL 2021-10 Yes [id number] 12.5mg Take 1 [facility] 12.5 mg 1-18 tablet by ity of tablet 00:00: mouth in [place] 00 the Medical morning Branch and 1 tablet in the evening. Take with meals. ondansetron 2021-10 Yes [id number] 4mg Take 1 [facility] 4 mg 1-18 tablet by ity of disintegrat 00:00: mouth [place] ing tablet 00 every 8 Medica l (eight) Branch hours as needed for Nausea and Vomiting (N/V). carvediloL 2021-10 Yes [id number] 12.5mg Take 1 [facility] 12.5 mg 1-18 tablet by ity of tablet 00:00: mouth in [place] the Medical morning Branch and 1 tablet in the evening. Take with meals. ondansetron 2021-10 Yes [id number] 4mg Take 1 [facility] 4 mg 1-18 tablet by ity of disintegrat 00:00: mouth [place] ing tablet 00 every 8 Medica l (eight) Branch hours as needed for Nausea and Vomiting (N/V). carvediloL 2021-10 Yes [id number] 12.5mg Take 1 [facility] 12.5 mg 1-18 tablet by ity of tablet 00:00: mouth in [place] 00 the Medical morning Branch and 1 tablet in the evening. Take with meals. ondansetron 2021-10 Yes [id number] 4mg Take 1 [facility] 4 mg 1-18 tablet by ity of disintegrat 00:00: mouth [place] ing tablet 00 every 8 Medica l (eight) Branch hours as needed for Nausea and Vomiting (N/V). carvediloL 2021-10 Yes [id number] 12.5mg Take 1 [facility] 12.5 mg 1-18 tablet by ity of tablet 00:00: mouth in [place] 00 the Medical morning Branch and 1 tablet in the evening. Take with meals. ondansetron 2021-10 Yes [id number] 4mg Take 1 [facility] 4 mg 1-18 tablet by ity of disintegrat 00:00: mouth [place] ing tablet 00 every 8 Medica l (eight) Branch hours as needed for Nausea and Vomiting (N/V). carvediloL 2021-10 Yes [id number] 12.5mg Take 1 [facility] 12.5 mg 1-18 tablet by ity of tablet 00:00: mouth in [place] 00 the Medical morning Branch and 1 tablet in the evening. Take with meals. ondansetron 2021-10 Yes [id number] 4mg Take 1 [facility] 4 mg 1-18 tablet by ity of disintegrat 00:00: mouth [place] ing tablet 00 every 8 Medica l (eight) Branch hours as needed for Nausea and Vomiting (N/V). carvediloL 2021-10 Yes [id number] 12.5mg Take 1 [facility] 12.5 mg 1-18 tablet by ity of tablet 00:00: mouth in [place] the [facility] morning Branch and 1 tablet in the evening. Take with meals. ondansetron 2021-10 Yes [id number] 4mg Take 1 [facility] 4 mg 1-18 tablet by ity of disintegrat 00:00: mouth [place] ing tablet 00 every 8 Medica l (eight) Branch hours as needed for Nausea and Vomiting (N/V). carvediloL 2021-10 Yes [id number] 12.5mg Take 1 [facility] 12.5 mg 1-18 tablet by ity of tablet 00:00: mouth in [place] the [facility] morning Branch and 1 tablet in the evening. Take with meals. ondansetron 2021-10 Yes [id number] 4mg Take 1 [facility] 4 mg 1-18 tablet by ity of disintegrat 00:00: mouth [place] ing tablet 00 every 8 Medica l (eight) Branch hours as needed for Nausea and Vomiting (N/V). carvediloL 2021-10 Yes [id number] 12.5mg Take 1 [facility] 12.5 mg 1-18 tablet by ity of tablet 00:00: mouth in [place] 00 the [facility] morning Branch and 1 tablet in the evening. Take with meals. ondansetron 2021-10 Yes [id number] 4mg Take 1 [facility] 4 mg 1-18 tablet by ity of disintegrat 00:00: mouth [place] ing tablet 00 every 8 Medica l (eight) Branch hours as needed for Nausea and Vomiting (N/V). carvediloL 2021-10 Yes [id number] 12.5mg Take 1 [facility] 12.5 mg 1-18 tablet by ity of tablet 00:00: mouth in [place] 00 the Medical morning Branch and 1 tablet in the evening. Take with meals. ondansetron 2021-10 Yes [id number] 4mg Take 1 [facility] 4 mg 1-18 tablet by ity of disintegrat 00:00: mouth [place] ing tablet 00 every 8 Medica l (eight) Branch hours as needed for Nausea and Vomiting (N/V). carvediloL 2021-10 Yes [id number] 12.5mg Take 1 [facility] 12.5 mg 1-18 tablet by ity of tablet 00:00: mouth in [place] 00 the Medical morning Branch and 1 tablet in the evening. Take with meals. ondansetron 2021-10 Yes [id number] 4mg Take 1 [facility] 4 mg 1-18 tablet by ity of disintegrat 00:00: mouth [place] ing tablet 00 every 8 Medica l (eight) Branch hours as needed for Nausea and Vomiting (N/V). carvediloL 2021-10 Yes [id number] 12.5mg Take 1 [facility] 12.5 mg 1-18 tablet by ity of tablet 00:00: mouth in [place] 00 the Medical morning Branch and 1 tablet in the evening. Take with meals. ondansetron 2021-10 Yes [id number] 4mg Take 1 [facility] 4 mg 1-18 tablet by ity of disintegrat 00:00: mouth [place] ing tablet 00 every 8 Medica l (eight) Branch hours as needed for Nausea and Vomiting (N/V). carvediloL 2021-10 Yes [id number] 12.5mg Take 1 [facility] 12.5 mg 1-18 tablet by ity of tablet 00:00: mouth in [place] 00 the Medical morning Branch and 1 tablet in the evening. Take with meals. ondansetron 2021-10 Yes [id number] 4mg Take 1 [facility] 4 mg 1-18 tablet by ity of disintegrat 00:00: mouth [place] ing tablet 00 every 8 Medica l (eight) Branch hours as needed for Nausea and Vomiting (N/V). carvediloL 2021-10 Yes [id number] 12.5mg Take 1 [facility] 12.5 mg 1-18 tablet by ity of tablet 00:00: mouth in [place] 00 the Medical morning Branch and 1 tablet in the evening. Take with meals. ondansetron 2021-10 Yes [id number] 4mg Take 1 [facility] 4 mg 1-18 tablet by ity of disintegrat 00:00: mouth [place] ing tablet 00 every 8 Medica l (eight) Branch hours as needed for Nausea and Vomiting (N/V). carvediloL 2021-10 Yes [id number] 12.5mg Take 1 [facility] 12.5 mg 1-18 tablet by ity of tablet 00:00: mouth in [place] 00 the Medical morning Branch and 1 tablet in the evening. Take with meals. ondansetron 2021-10 Yes [id number] 4mg Take 1 [facility] 4 mg 1-18 tablet by ity of disintegrat 00:00: mouth [place] ing tablet 00 every 8 Medica l (eight) Branch hours as needed for Nausea and Vomiting (N/V). carvediloL 2021-10 Yes [id number] 12.5mg Take 1 [facility] 12.5 mg 1-18 tablet by ity of tablet 00:00: mouth in [place] the [facility] morning Branch and 1 tablet in the evening. Take with meals. ondansetron 2021-10 Yes [id number] 4mg Take 1 [facility] 4 mg 1-18 tablet by ity of disintegrat 00:00: mouth [place] ing tablet 00 every 8 Medica l (eight) Branch hours as needed for Nausea and Vomiting (N/V). carvediloL 2021-10 Yes [id number] 12.5mg Take 1 [facility] 12.5 mg 1-18 tablet by ity of tablet 00:00: mouth in [place] 00 the Medical morning Branch and 1 tablet in the evening. Take with meals. ondansetron 2021-10 Yes [id number] 4mg Take 1 [facility] 4 mg 1-18 tablet by ity of disintegrat 00:00: mouth [place] ing tablet 00 every 8 Medica l (eight) Branch hours as needed for Nausea and Vomiting (N/V). carvediloL 2021-10 Yes [id number] 12.5mg Take 1 [facility] 12.5 mg 1-18 tablet by ity of tablet 00:00: mouth in [place] 00 the [facility] morning Branch and 1 tablet in the evening. Take with meals. ondansetron 2021-10 Yes [id number] 4mg Take 1 [facility] 4 mg 1-18 tablet by ity of disintegrat 00:00: mouth [place] ing tablet 00 every 8 Medica l (eight) Branch hours as needed for Nausea and Vomiting (N/V). carvediloL 2021-10 Yes [id number] 12.5mg Take 1 [facility] 12.5 mg 1-18 tablet by ity of tablet 00:00: mouth in [place] the [facility] morning Branch and 1 tablet in the evening. Take with meals. ondansetron 2021-10 Yes [id number] 4mg Take 1 [facility] 4 mg 1-18 tablet by ity of disintegrat 00:00: mouth [place] ing tablet 00 every 8 Medica l (eight) Branch hours as needed for Nausea and Vomiting (N/V). carvediloL 2021-10 Yes [id number] 12.5mg Take 1 [facility] 12.5 mg 1-18 tablet by ity of tablet 00:00: mouth in [place] [address] the [facility] and 1 tablet in the evening. Take with meals. ondansetron 2021-10 Yes [id number] 4mg Take 1 [facility] 4 mg 1-18 tablet by ity of disintegrat 00:00: mouth [place] ing tablet 00 every 8 Medica l (eight) Branch hours as needed for Nausea and Vomiting (N/V). carvediloL 2021-10 Yes [id number] 12.5mg Take 1 [facility] 12.5 mg 1-18 tablet by ity of tablet 00:00: mouth in [place] [address] the [facility] morning [place] and 1 tablet in the evening. Take with meals. ondansetron 2021-10 Yes [id number] 4mg Take 1 [facility] 4 mg 1-18 tablet by ity of disintegrat 00:00: mouth [place] ing tablet 00 every 8 Medica l (eight) Branch hours as needed for Nausea and Vomiting (N/V). carvediloL 2021-10 Yes [id number] 12.5mg Take 1 [facility] 12.5 mg 1-18 tablet by ity of tablet 00:00: mouth in [place] [address] the [facility] morning [place] and 1 tablet in the evening. Take with meals. ondansetron 2021-10 Yes [id number] 4mg Take 1 [facility] 4 mg 1-18 tablet by ity of disintegrat 00:00: mouth [place] ing tablet 00 every 8 Medica l (eight) Branch hours as needed for Nausea and Vomiting (N/V). carvediloL 2021-10 Yes [id number] 12.5mg Take 1 [facility] 12.5 mg 1-18 tablet by ity of tablet 00:00: mouth in [place] 00 the Medical morning Branch and 1 tablet in the evening. Take with meals. ondansetron 2021-10 Yes [id number] 4mg Take 1 [facility] 4 mg 1-18 tablet by ity of disintegrat 00:00: mouth [place] ing tablet 00 every 8 Medica l (eight) Branch hours as needed for Nausea and Vomiting (N/V). carvediloL 2021-10 Yes [id number] 12.5mg Take 1 [facility] 12.5 mg 1-18 tablet by ity of tablet 00:00: mouth in [place] 00 the Medical morning Branch and 1 tablet in the evening. Take with meals. ondansetron 2021-10 Yes [id number] 4mg Take 1 [facility] 4 mg 1-18 tablet by ity of disintegrat 00:00: mouth [place] ing tablet 00 every 8 Medica l (eight) Branch hours as needed for Nausea and Vomiting (N/V). carvediloL 2021-10 Yes [id number] 12.5mg Take 1 [facility] 12.5 mg 1-18 tablet by ity of tablet 00:00: mouth in [place] 00 the Medical morning Branch and 1 tablet in the evening. Take with meals. ondansetron 2021-10 Yes [id number] 4mg Take 1 [facility] 4 mg 1-18 tablet by ity of disintegrat 00:00: mouth [place] ing tablet 00 every 8 Medica l (eight) Branch hours as needed for Nausea and Vomiting (N/V). carvediloL 2021-10 Yes [id number] 12.5mg Take 1 [facility] 12.5 mg 1-18 tablet by ity of tablet 00:00: mouth in [place] 00 the Medical morning Branch and 1 tablet in the evening. Take with meals. ondansetron 2021-10 Yes [id number] 4mg Take 1 [facility] 4 mg 1-18 tablet by ity of disintegrat 00:00: mouth [place] ing tablet 00 every 8 Medica l (eight) Branch hours as needed for Nausea and Vomiting (N/V). carvediloL 2021-10 Yes [id number] 12.5mg Take 1 [facility] 12.5 mg 1-18 tablet by ity of tablet 00:00: mouth in [place] the [facility] morning Branch and 1 tablet in the evening. Take with meals. ondansetron 2021-10 Yes [id number] 4mg Take 1 [facility] 4 mg 1-18 tablet by ity of disintegrat 00:00: mouth [place] ing tablet 00 every 8 Medica l (eight) Branch hours as needed for Nausea and Vomiting (N/V). carvediloL 2021-10 Yes [id number] 12.5mg Take 1 [facility] 12.5 mg 1-18 tablet by ity of tablet 00:00: mouth in [place] the [facility] morning Branch and 1 tablet in the evening. Take with meals. ondansetron 2021-10 Yes [id number] 4mg Take 1 [facility] 4 mg 1-18 tablet by ity of disintegrat 00:00: mouth [place] ing tablet 00 every 8 Medica l (eight) Branch hours as needed for Nausea and Vomiting (N/V). carvediloL 2021-10 Yes [id number] 12.5mg Take 1 [facility] 12.5 mg 1-18 tablet by ity of tablet 00:00: mouth in [place] the [facility] morning [place] and 1 tablet in the evening. Take with meals. ondansetron 2021-10 Yes [id number] 4mg Take 1 [facility] 4 mg 1-18 tablet by ity of disintegrat 00:00: mouth [place] ing tablet 00 every 8 Medica l (eight) Branch hours as needed for Nausea and Vomiting (N/V). carvediloL 2021-10 Yes [id number] 12.5mg Take 1 [facility] 12.5 mg 1-18 tablet by ity of tablet 00:00: mouth in [place] the [facility] morning Branch and 1 tablet in the evening. Take with meals. ondansetron 2021-10 Yes [id number] 4mg Take 1 [facility] 4 mg 1-18 tablet by ity of disintegrat 00:00: mouth [place] ing tablet 00 every 8 Medica l (eight) Branch hours as needed for Nausea and Vomiting (N/V). carvediloL 2021-10 Yes [id number] 12.5mg Take 1 [facility] 12.5 mg 1-18 tablet by ity of tablet 00:00: mouth in [place] 00 the Medical morning Branch and 1 tablet in the evening. Take with meals. ondansetron 2021-10 Yes [id number] 4mg Take 1 [facility] 4 mg 1-18 tablet by ity of disintegrat 00:00: mouth [place] ing tablet 00 every 8 Medica l (eight) Branch hours as needed for Nausea and Vomiting (N/V). ondansetron 2021-10 Yes [id number] 4mg Take 1 [facility] 4 mg 1-18 tablet by ity of disintegrat 00:00: mouth [place] ing tablet 00 every 8 Medica l (eight) Branch hours as needed for Nausea and Vomiting (N/V). ondansetron 2021-10 Yes [id number] 4mg Take 1 [facility] 4 mg 1-18 tablet by ity of disintegrat 00:00: mouth [place] ing tablet 00 every 8 Medica l (eight) Branch hours as needed for Nausea and Vomiting (N/V). ondansetron 2021-10 Yes [id number] 4mg Take 1 [facility] 4 mg 1-18 tablet by ity of disintegrat 00:00: mouth [place] ing tablet 00 every 8 Medica l (eight) Branch hours as needed for Nausea and Vomiting (N/V). ondansetron 2021-10 Yes [id number] 4mg Take 1 [facility] 4 mg 1-18 tablet by ity of disintegrat 00:00: mouth [place] ing tablet 00 every 8 Medica l (eight) Branch hours as needed for Nausea and Vomiting (N/V). ondansetron 2021-10 Yes [id number] 4mg Take 1 [facility] 4 mg 1-18 tablet by ity of disintegrat 00:00: mouth [place] ing tablet 00 every 8 Medica l (eight) Branch hours as needed for Nausea and Vomiting (N/V). ondansetron 2021-10 Yes [id number] 4mg Take 1 [facility] 4 mg 1-18 tablet by ity of disintegrat 00:00: mouth [place] ing tablet 00 every 8 Medica l (eight) Branch hours as needed for Nausea and Vomiting (N/V). ondansetron 2021-10 Yes [id number] 4mg Take 1 [facility] 4 mg 1-18 tablet by ity of disintegrat 00:00: mouth [place] ing tablet 00 every 8 Medica l (eight) Branch hours as needed for Nausea and Vomiting (N/V). ondansetron 2021-10 Yes [id number] 4mg Take 1 [facility] 4 mg 1-18 tablet by ity of disintegrat 00:00: mouth [place] ing tablet 00 every 8 Medica l (eight) Branch hours as needed for Nausea and Vomiting (N/V). ondansetron 2021-10 Yes [id number] 4mg Take 1 [facility] 4 mg 1-18 tablet by ity of disintegrat 00:00: mouth [place] ing tablet 00 every 8 Medica l (eight) Branch hours as needed for Nausea and Vomiting (N/V). ondansetron 2021-10 Yes [id number] 4mg Take 1 [facility] 4 mg 1-18 tablet by ity of disintegrat 00:00: mouth [place] ing tablet 00 every 8 Medica l (eight) Branch hours as needed for Nausea and Vomiting (N/V). ondansetron 2021-10 Yes [id number] 4mg Take 1 [facility] 4 mg 1-18 tablet by ity of disintegrat 00:00: mouth [place] ing tablet 00 every 8 Medica l (eight) Branch hours as needed for Nausea and Vomiting (N/V). ondansetron 2021-10 Yes [id number] 4mg Take 1 [facility] 4 mg 1-18 tablet by ity of disintegrat 00:00: mouth [place] ing tablet 00 every 8 Medica l (eight) Branch hours as needed for Nausea and Vomiting (N/V). ondansetron 2021-10 Yes [id number] 4mg Take 1 [facility] 4 mg 1-18 tablet by ity of disintegrat 00:00: mouth [place] ing tablet 00 every 8 Medica l (eight) Branch hours as needed for Nausea and Vomiting (N/V). ondansetron 2021-10 Yes [id number] 4mg Take 1 [facility] 4 mg 1-18 tablet by ity of disintegrat 00:00: mouth [place] ing tablet 00 every 8 Medica l (eight) Branch hours as needed for Nausea and Vomiting (N/V). ondansetron 2021-10 Yes [id number] 4mg Take 1 [facility] 4 mg 1-18 tablet by ity of disintegrat 00:00: mouth [place] ing tablet 00 every 8 Medica l (eight) Branch hours as needed for Nausea and Vomiting (N/V). ondansetron 2021-10 Yes [id number] 4mg Take 1 [facility] 4 mg 1-18 tablet by ity of disintegrat 00:00: mouth [place] ing tablet 00 every 8 Medica l (eight) Branch hours as needed for Nausea and Vomiting (N/V). ondansetron 2021-10 Yes [id number] 4mg Take 1 [facility] 4 mg 1-18 tablet by ity of disintegrat 00:00: mouth [place] ing tablet 00 every 8 Medica l (eight) Branch hours as needed for Nausea and Vomiting (N/V). ondansetron 2021-10 Yes [id number] 4mg Take 1 [facility] 4 mg 1-18 tablet by ity of disintegrat 00:00: mouth [place] ing tablet 00 every 8 Medica l (eight) Branch hours as needed for Nausea and Vomiting (N/V). ondansetron 2021-10 Yes [id number] 4mg Take 1 [facility] 4 mg 1-18 tablet by ity of disintegrat 00:00: mouth [place] ing tablet 00 every 8 Medica l (eight) Branch hours as needed for Nausea and Vomiting (N/V). ondansetron 2021-10 Yes [id number] 4mg Take 1 [facility] 4 mg 1-18 tablet by ity of disintegrat 00:00: mouth [place] ing tablet 00 every 8 Medica l (eight) Branch hours as needed for Nausea and Vomiting (N/V). ondansetron 2021-10 Yes [id number] 4mg Take 1 [facility] 4 mg 1-18 tablet by ity of disintegrat 00:00: mouth [place] ing tablet 00 every 8 Medica l (eight) Branch hours as needed for Nausea and Vomiting (N/V). ondansetron 2021-10 Yes [id number] 4mg Take 1 [facility] 4 mg 1-18 tablet by ity of disintegrat 00:00: mouth [place] ing tablet 00 every 8 Medica l (eight) Branch hours as needed for Nausea and Vomiting (N/V). ondansetron 2021-10 Yes [id number] 4mg Take 1 [facility] 4 mg 1-18 tablet by ity of disintegrat 00:00: mouth [place] ing tablet 00 every 8 Medica l (eight) Branch hours as needed for Nausea and Vomiting (N/V). carvediloL 2021-10- No [id number] 12.5mg Take 1 [facility] 12.5 mg 11-07-09 tablet by ity of tablet 00:00: 00:00 [...] NSAIDS). Indication s: chronic pain traMADoL 50 2021-10 No [id number] 50mg Take 1 [facility] vers mg tablet 11-07 tablet by ity of 00:00: 00:00 mouth [place] 00 :00 every 6 Medical (six) Branch hours as needed for Pain (scale 7-10) (Cannot take NSAIDS). Indication s: chronic pain tirzepatide 2021-10 No [id number] 2.5mg inject 2.5 [facility] (MOUNJARO) 1-18 12-28 mg under ity of 2.5 mg/0.5 00:00: 00:00 the skin [place] mL PnIj 00 :00 weekly. Medical Start Branch 2.5mg SC qWeek x 4 Weeks, then increase to 5 mg [place] qWeek tirzepatide 2021-10 No [id number] 5mg inject 5 [facility] (MOUNJARO) 1-18 12-28 mg under ity of 5 mg/0.5 mL 00:00: 00:00 the skin [place] PnIj 00 :00 weekly. Medical Start Branch 2.5mg SC qWeek x 4 Weeks, then increase to 5 mg [place] qWeek tirzepatide 2021-10- No [id number] 2.5mg inject 2.5 [facility] (MOUNJARO) 1-18 12-28 mg under ity of 2.5 mg/0.5 00:00: 00:00 the skin [place] mL PnIj 00 :00 weekly. Medical Start Branch 2.5mg SC qWeek x 4 Weeks, then increase to 5 mg [place] qWeek tirzepatide 2021-10- No [id number] 5mg inject 5 [facility] (MOUNJARO) 1-18 12-28 mg under ity of 5 mg/0.5 mL 00:00: 00:00 the skin [place] PnIj 00 :00 weekly. Medical Start Branch 2.5mg SC qWeek x 4 Weeks, then increase to 5 mg [place] qWeek metFORMIN 2021-10- No [id number] 500mg Take 1 [facility] 500 mg 1-18 11-28 tablet by ity of tablet 00:00: 00:00 mouth in [place] 00 :00 the Medical morning Branch and 1 tablet in the evening. Take with meals. Takes 2 tablets twice daily metFORMIN 2021-10- No [id number] 500mg Take 1 [facility] 500 mg 1-18 11-28 tablet by ity of tablet 00:00: 00:00 mouth in [place] 00 :00 the Medical morning Branch and 1 tablet in the evening. Take with meals. Takes 2 tablets twice daily lipase-prot 2021-10 Yes [id number] Take 2 [facility] ease-amylas 1-11 capsules ity of e 00:00: by mouth [place] 36,000-114, 00 with meals Me dical 000- and 1 with Branch 180,000 each unit CpDR snack. lipase-prot 2021-10 Yes [id number] Take 2 [facility] ease-amylas 1-11 capsules ity of e 00:00: by mouth [place] 36,000-114, 00 with meals Me dical 000- and 1 with Branch 180,000 each unit CpDR snack. lipase-prot 2021-10 Yes [id number] Take 2 [facility] ease-amylas 1-11 capsules ity of e 00:00: by mouth [place] 36,000-114, 00 with meals Me dical 000- and 1 with Branch 180,000 each unit CpDR snack. lipase-prot 2021-10 Yes [id number] Take 2 [facility] ease-amylas 1-11 capsules ity of e 00:00: by mouth [place] 36,000-114, 00 with meals Me dical 000- and 1 with Branch 180,000 each unit CpDR snack. lipase-prot 2021-10 Yes [id number] Take 2 [facility] ease-amylas 1-11 capsules ity of e 00:00: by mouth [place] 36,000-114, 00 with meals Me dical 000- and 1 with Branch 180,000 each unit CpDR snack. lipase-prot 2021-10 Yes [id number] Take 2 [facility] ease-amylas 1-11 capsules ity of e 00:00: by mouth [place] 36,000-114, 00 with meals Me dical 000- and 1 with Branch 180,000 each unit CpDR snack. lipase-prot 2021-10 Yes [id number] Take 2 [facility] ease-amylas 1-11 capsules ity of e 00:00: by mouth [place] 36,000-114, 00 with meals Me dical 000- and 1 with Branch 180,000 each unit CpDR snack. lipase-prot 2021-10 Yes [id number] Take 2 [facility] ease-amylas 1-11 capsules ity of e 00:00: by mouth [place] 36,000-114, 00 with meals Me dical 000- and 1 with Branch 180,000 each unit CpDR snack. lipase-prot 2021-10 Yes [id number] Take 2 [facility] ease-amylas 1-11 capsules ity of e 00:00: by mouth [place] 36,000-114, 00 with meals Me dical 000- and 1 with Branch 180,000 each unit CpDR snack. lipase-prot 2021-10 Yes [id number] Take 2 [facility] ease-amylas 1-11 capsules ity of e 00:00: by mouth [place] 36,000-114, 00 with meals Me dical 000- and 1 with Branch 180,000 each unit CpDR snack. lipase-prot 2021-10 Yes [id number] Take 2 [facility] ease-amylas 1-11 capsules ity of e 00:00: by mouth [place] 36,000-114, 00 with meals Me dical 000- and 1 with Branch 180,000 each unit CpDR snack. lipase-prot 2021-10 Yes [id number] Take 2 [facility] ease-amylas 1-11 capsules ity of e 00:00: by mouth [place] 36,000-114, 00 with meals Me dical 000- and 1 with Branch 180,000 each unit CpDR snack. lipase-prot 2021-10 Yes [id number] Take 2 [facility] ease-amylas 1-11 capsules ity of e 00:00: by mouth [place] 36,000-114, 00 with meals Me dical 000- and 1 with Branch 180,000 each unit CpDR snack. lipase-prot 2021-10 Yes [id number] Take 2 [facility] ease-amylas 1-11 capsules ity of e 00:00: by mouth [place] 36,000-114, 00 with meals Me dical 000- and 1 with Branch 180,000 each unit CpDR snack. lipase-prot 2021-10 Yes [id number] Take 2 [facility] ease-amylas 1-11 capsules ity of e 00:00: by mouth [place] 36,000-114, 00 with meals Me dical 000- and 1 with Branch 180,000 each unit CpDR snack. lipase-prot 2021-10 Yes [id number] Take 2 [facility] ease-amylas 1-11 capsules ity of e 00:00: by mouth [place] 36,000-114, 00 with meals Me dical 000- and 1 with Branch 180,000 each unit CpDR snack. lipase-prot 2021-10 Yes [id number] Take 2 [facility] ease-amylas 1-11 capsules ity of e 00:00: by mouth [place] 36,000-114, 00 with meals Me dical 000- and 1 with Branch 180,000 each unit CpDR snack. lipase-prot 2021-10 Yes [id number] Take 2 [facility] ease-amylas 1-11 capsules ity of e 00:00: by mouth [place] 36,000-114, 00 with meals Me dical 000- and 1 with Branch 180,000 each unit CpDR snack. lipase-prot 2021-10 Yes [id number] Take 2 [facility] ease-amylas 1-11 capsules ity of e 00:00: by mouth [place] 36,000-114, 00 with meals Me dical 000- and 1 with Branch 180,000 each unit CpDR snack. lipase-prot 2021-10 Yes [id number] Take 2 [facility] ease-amylas 1-11 capsules ity of e 00:00: by mouth [place] 36,000-114, 00 with meals Me dical 000- and 1 with Branch 180,000 each unit CpDR snack. lipase-prot 2021-10 Yes [id number] Take 2 [facility] ease-amylas 1-11 capsules ity of e 00:00: by mouth [place] 36,000-114, 00 with meals Me dical 000- and 1 with Branch 180,000 each unit CpDR snack. lipase-prot 2021-10 Yes [id number] Take 2 [facility] ease-amylas 1-11 capsules ity of e 00:00: by mouth [place] 36,000-114, 00 with meals Me dical 000- and 1 with Branch 180,000 each unit CpDR snack. lipase-prot 2021-10 Yes [id number] Take 2 [facility] ease-amylas 1-11 capsules ity of e 00:00: by mouth [place] 36,000-114, 00 with meals Me dical 000- and 1 with Branch 180,000 each unit CpDR snack. lipase-prot 2021-10 Yes [id number] Take 2 [facility] ease-amylas 1-11 capsules ity of e 00:00: by mouth [place] 36,000-114, 00 with meals Me dical 000- and 1 with Branch 180,000 each unit CpDR snack. lipase-prot 2021-10 Yes [id number] Take 2 [facility] ease-amylas 1-11 capsules ity of e 00:00: by mouth [place] 36,000-114, 00 with meals Me dical 000- and 1 with Branch 180,000 each unit CpDR snack. lipase-prot 2021-10 Yes [id number] Take 2 [facility] ease-amylas 1-11 capsules ity of e 00:00: by mouth [place] 36,000-114, 00 with meals Me dical 000- and 1 with Branch 180,000 each unit CpDR snack. lipase-prot 2021-10 Yes [id number] Take 2 [facility] ease-amylas 1-11 capsules ity of e 00:00: by mouth [place] 36,000-114, 00 with meals Me dical 000- and 1 with Branch 180,000 each unit CpDR snack. lipase-prot 2021-10 Yes [id number] Take 2 [facility] ease-amylas 1-11 capsules ity of e 00:00: by mouth [place] 36,000-114, 00 with meals Me dical 000- and 1 with Branch 180,000 each unit CpDR snack. lipase-prot 2021-10 Yes [id number] Take 2 [facility] ease-amylas 1-11 capsules ity of e 00:00: by mouth [place] 36,000-114, 00 with meals Me dical 000- and 1 with Branch 180,000 each unit CpDR snack. lipase-prot 2021-10 Yes [id number] Take 2 [facility] ease-amylas 1-11 capsules ity of e 00:00: by mouth [place] 36,000-114, 00 with meals Me dical 000- and 1 with Branch 180,000 each unit CpDR snack. lipase-prot 2021-10 Yes [id number] Take 2 [facility] ease-amylas 1-11 capsules ity of e 00:00: by mouth [place] 36,000-114, 00 with meals Me dical 000- and 1 with Branch 180,000 each unit CpDR snack. lipase-prot 2021-10 Yes [id number] Take 2 [facility] ease-amylas 1-11 capsules ity of e 00:00: by mouth [place] 36,000-114, 00 with meals Me dical 000- and 1 with Branch 180,000 each unit CpDR snack. lipase-prot 2021-10 Yes [id number] Take 2 [facility] ease-amylas 1-11 capsules ity of e 00:00: by mouth [place] 36,000-114, 00 with meals Me dical 000- and 1 with Branch 180,000 each unit CpDR snack. lipase-prot 2021-10 Yes [id number] Take 2 [facility] ease-amylas 1-11 capsules ity of e 00:00: by mouth [place] 36,000-114, 00 with meals Me dical 000- and 1 with Branch 180,000 each unit CpDR snack. lipase-prot 2021-10 Yes [id number] Take 2 [facility] ease-amylas 1-11 capsules ity of e 00:00: by mouth [place] 36,000-114, 00 with meals Me dical 000- and 1 with Branch 180,000 each unit CpDR snack. lipase-prot 2021-10 Yes [id number] Take 2 [facility]-amylas 1-11 capsules ity of e 00:00: by mouth [place] 36,000-114, 00 with meals Me dical 000- and 1 with Branch 180,000 each unit CpDR snack. lipase-prot 2021-10 Yes [id number] Take 2 [facility] ease-amylas 1-11 capsules ity of e 00:00: by mouth [place] 36,000-114, 00 with meals Me dical 000- and 1 with Branch 180,000 each unit CpDR snack. lipase-prot 2021-10 Yes [id number] Take 2 [facility] ease-amylas 1-11 capsules ity of e 00:00: by mouth [place] 36,000-114, 00 with meals Me dical 000- and 1 with Branch 180,000 each unit CpDR snack. lipase-prot 2021-10 Yes [id number] Take 2 [facility]-amylas 1-11 capsules ity of e 00:00: by mouth [place] 36,000-114, 00 with meals Me dical 000- and 1 with Branch 180,000 each unit CpDR snack. lipase-prot 2021-10 Yes [id number] Take 2 [facility]-amylas 1-11 capsules ity of e 00:00: by mouth [place] 36,000-114, 00 with meals Me dical 000- and 1 with Branch 180,000 each unit CpDR snack. lipase-prot 2021-10 Yes [id number] Take 2 [facility] 1-11 capsules ity of e 00:00: by mouth [place] 36,000-114, 00 with meals Me dical 000- and 1 with Branch 180,000 each unit CpDR snack. lipase-prot 2021-10 Yes [id number] Take 2 [facility]as 1-11 capsules ity of e 00:00: by mouth [place] 36,000-114, 00 with meals Me dical 000- and 1 with Branch 180,000 each unit CpDR snack. lipase-prot 2021-10 Yes [id number] Take 2 [facility] 1-11 capsules ity of e 00:00: by mouth [place] 36,000-114, 00 with meals Me dical 000- and 1 with Branch 180,000 each unit CpDR snack. lipase-prot 2021-10 Yes [id number] Take 2 [facility] 1-11 capsules ity of e 00:00: by mouth [place] 36,000-114, 00 with meals Me dical 000- and 1 with Branch 180,000 each unit CpDR snack. lipase-prot 2021-10 Yes [id number] Take 2 [facility] 1-11 capsules ity of e 00:00: by mouth [place] 36,000-114, 00 with meals Me dical 000- and 1 with Branch 180,000 each unit CpDR snack. lipase-prot 2021-10 Yes [id number] Take 2 [facility] 1-11 capsules ity of e 00:00: by mouth [place] 36,000-114, 00 with meals Me dical 000- and 1 with Branch 180,000 each unit CpDR snack. lipase-prot 2021-10 Yes [id number] Take 2 [facility] 1-11 capsules ity of e 00:00: by mouth [place] 36,000-114, 00 with meals Me dical 000- and 1 with Branch 180,000 each unit CpDR snack. lipase-prot 2021-10 Yes [id number] Take 2 [facility] 1-11 capsules ity of e 00:00: by mouth [place] 36,000-114, 00 with meals Me dical 000- and 1 with Branch 180,000 each unit CpDR snack. lipase-prot 2021-10 Yes [id number] Take 2 [facility] 1-11 capsules ity of e 00:00: by mouth [place] 36,000-114, 00 with meals Me dical 000- and 1 with Branch 180,000 each unit CpDR snack. lipase-prot 2021-10 Yes [id number] Take 2 [facility] 1-11 capsules ity of e 00:00: by mouth [place] 36,000-114, 00 with meals Me dical 000- and 1 with Branch 180,000 each unit CpDR snack. lipase-prot 2021-10 Yes [id number] Take 2 [facility] 1-11 capsules ity of e 00:00: by mouth [place] 36,000-114, 00 with meals Me dical 000- and 1 with Branch 180,000 each unit CpDR snack. lipase-prot 2021-10 Yes [id number] Take 2 [facility] 1-11 capsules ity of e 00:00: by mouth [place] 36,000-114, 00 with meals Me dical 000- and 1 with Branch 180,000 each unit CpDR snack. lipase-prot 2021-10 Yes [id number] Take 2 [facility] 1-11 capsules ity of e 00:00: by mouth [place] 36,000-114, 00 with meals Me dical 000- and 1 with Branch 180,000 each unit CpDR snack. lipase-prot 2021-10 Yes [id number] Take 2 [facility]as 1-11 capsules ity of e 00:00: by mouth [place] 36,000-114, 00 with meals Me dical 000- and 1 with Branch 180,000 each unit CpDR snack. lipase-prot 2021-10 Yes [id number] Take 2 [facility] 1-11 capsules ity of e 00:00: by mouth [place] 36,000-114, 00 with meals Me dical 000- and 1 with Branch 180,000 each unit CpDR snack. lipase-prot 2021-10 Yes [id number] Take 2 [facility]-amyl[facility] 1-11 capsules ity of e 00:00: by mouth [place] 36,000-114, 00 with meals Me dical 000- and 1 with Branch 180,000 each unit CpDR snack. lipase-prot 2021-10 Yes [id number] Take 2 [facility] 1-11 capsules ity of e 00:00: by mouth [place] 36,000-114, 00 with meals Me dical 000- and 1 with Branch 180,000 each unit CpDR snack. lipase-prot 2021-10 Yes [id number] Take 2 [facility]-amylas 1-11 capsules ity of e 00:00: by mouth [place] 36,000-114, 00 with meals Me dical 000- and 1 with Branch 180,000 each unit CpDR snack. lipase-prot 2021-10 Yes [id number] Take 2 [facility]as 1-11 capsules ity of e 00:00: by mouth [place] 36,000-114, 00 with meals Me dical 000- and 1 with Branch 180,000 each unit CpDR snack. lipase-prot 2021-10 Yes [id number] Take 2 [facility] 1-11 capsules ity of e 00:00: by mouth [place] 36,000-114, 00 with meals Me dical 000- and 1 with Branch 180,000 each unit CpDR snack. lipase-prot 2021-10 Yes [id number] Take 2 [facility] 1-11 capsules ity of e 00:00: by mouth [place] 36,000-114, 00 with meals Me dical 000- and 1 with Branch 180,000 each unit CpDR snack. lipase-prot 2021-10 Yes [id number] Take 2 [facility] 1-11 capsules ity of e 00:00: by mouth [place] 36,000-114, 00 with meals Me dical 000- and 1 with Branch 180,000 each unit CpDR snack. lipase-prot 2021-10 Yes [id number] Take 2 [facility] 1-11 capsules ity of e 00:00: by mouth [place] 36,000-114, 00 with meals Me dical 000- and 1 with Branch 180,000 each unit CpDR snack. lipase-prot 2021-10 Yes [id number] Take 2 [facility]as 1-11 capsules ity of e 00:00: by mouth [place] 36,000-114, 00 with meals Me dical 000- and 1 with Branch 180,000 each unit CpDR snack. lipase-prot 2021-10 Yes [id number] Take 2 [facility]as 1-11 capsules ity of e 00:00: by mouth [place] 36,000-114, 00 with meals Me dical 000- and 1 with Branch 180,000 each unit CpDR snack. lipase-prot 2021-10 Yes [id number] Take 2 [facility] 1-11 capsules ity of e 00:00: by mouth [place] 36,000-114, 00 with meals Me dical 000- and 1 with Branch 180,000 each unit CpDR snack. lipase-prot 2021-10 Yes [id number] Take 2 [facility] 1-11 capsules ity of e 00:00: by mouth [place] 36,000-114, 00 with meals Me dical 000- and 1 with Branch 180,000 each unit CpDR snack. lipase-prot 2021-10 Yes [id number] Take 2 [facility] 1-11 capsules ity of e 00:00: by mouth [place] 36,000-114, 00 with meals Me dical 000- and 1 with Branch 180,000 each unit CpDR snack. lipase-prot 2021-10 Yes [id number] Take 2 [facility] 1-11 capsules ity of e 00:00: by mouth [place] 36,000-114, 00 with meals Me dical 000- and 1 with Branch 180,000 each unit CpDR snack. lipase-prot 2021-10 Yes [id number] Take 2 [facility] 1-11 capsules ity of e 00:00: by mouth [place] 36,000-114, 00 with meals Me dical 000- and 1 with Branch 180,000 each unit CpDR snack. lipase-prot 2021-10 Yes [id number] Take 2 [facility]as 1-11 capsules ity of e 00:00: by mouth [place] 36,000-114, 00 with meals Me dical 000- and 1 with Branch 180,000 each unit CpDR snack. lipase-prot 2021-10 Yes [id number] Take 2 [facility] 1-11 capsules ity of e 00:00: by mouth [place] 36,000-114, 00 with meals Me dical 000- and 1 with Branch 180,000 each unit CpDR snack. lipase-prot 2021-10 Yes [id number] Take 2 [facility] 1-11 capsules ity of e 00:00: by mouth [place] 36,000-114, 00 with meals Me dical 000- and 1 with Branch 180,000 each unit CpDR snack. lipase-prot 2021-10 Yes [id number] Take 2 [facility] 1-11 capsules ity of e 00:00: by mouth [place] 36,000-114, 00 with meals Me dical 000- and 1 with Branch 180,000 each unit CpDR snack. lipase-prot 2021-10 Yes [id number] Take 2 [facility] 1-11 capsules ity of e 00:00: by mouth [place] 36,000-114, 00 with meals Me dical 000- and 1 with Branch 180,000 each unit CpDR snack. lipase-prot 2021-10 Yes [id number] Take 2 [facility] 1-11 capsules ity of e 00:00: by mouth [place] 36,000-114, 00 with meals Me dical 000- and 1 with Branch 180,000 each unit CpDR snack. lipase-prot 2021-10 Yes [id number] Take 2 [facility] 1-11 capsules ity of e 00:00: by mouth [place] 36,000-114, 00 with meals Me dical 000- and 1 with Branch 180,000 each unit CpDR snack. lipase-prot 2021-10 Yes [id number] Take 2 [facility] 1-11 capsules ity of e 00:00: by mouth [place] 36,000-114, 00 with meals Me dical 000- and 1 with Branch 180,000 each unit CpDR snack. lipase-prot 2021-10 Yes [id number] Take 2 [facility] 1-11 capsules ity of e 00:00: by mouth [place] 36,000-114, 00 with meals Me dical 000- and 1 with Branch 180,000 each unit CpDR snack. lipase-prot 2021-10 Yes [id number] Take 2 [facility] 1-11 capsules ity of e 00:00: by mouth [place] 36,000-114, 00 with meals Me dical 000- and 1 with Branch 180,000 each unit CpDR snack. lipase-prot 2021-10 Yes [id number] Take 2 [facility] 1-11 capsules ity of e 00:00: by mouth [place] 36,000-114, 00 with meals Me dical 000- and 1 with Branch 180,000 each unit CpDR snack. lipase-prot 2021-10 Yes [id number] Take 2 [facility] 1-11 capsules ity of e 00:00: by mouth [place] 36,000-114, 00 with meals Me dical 000- and 1 with Branch 180,000 each unit CpDR snack. lipase-prot 2021-10 Yes [id number] Take 2 [facility] 1-11 capsules ity of e 00:00: by mouth [place] 36,000-114, 00 with meals Me dical 000- and 1 with Branch 180,000 each unit CpDR snack. lipase-prot 2021-10 Yes [id number] Take 2 [facility] 1-11 capsules ity of e 00:00: by mouth [place] 36,000-114, 00 with meals Me dical 000- and 1 with Branch 180,000 each unit CpDR snack. lipase-prot 2021-10 Yes [id number] Take 2 [facility] 1-11 capsules ity of e 00:00: by mouth [place] 36,000-114, 00 with meals Me dical 000- and 1 with Branch 180,000 each unit CpDR snack. lipase-prot 2021-10 Yes [id number] Take 2 [facility] 1-11 capsules ity of e 00:00: by mouth [place] 36,000-114, 00 with meals Me dical 000- and 1 with Branch 180,000 each unit CpDR snack. lipase-prot 2021-10 Yes [id number] Take 2 [facility] 1-11 capsules ity of e 00:00: by mouth [place] 36,000-114, 00 with meals Me dical 000- and 1 with Branch 180,000 each unit CpDR snack. lipase-prot 2021-10 Yes [id number] Take 2 [facility] 1-11 capsules ity of e 00:00: by mouth [place] 36,000-114, 00 with meals Me dical 000- and 1 with Branch 180,000 each unit CpDR snack. lipase-prot 2021-10 Yes [id number] Take 2 [facility]as 1-11 capsules ity of e 00:00: by mouth [place] 36,000-114, 00 with meals Me dical 000- and 1 with Branch 180,000 each unit CpDR snack. lipase-prot 2021-10 Yes [id number] Take 2 [facility] 1-11 capsules ity of e 00:00: by mouth [place] 36,000-114, 00 with meals Me dical 000- and 1 with Branch 180,000 each unit CpDR snack. lipase-prot 2021-10 Yes [id number] Take 2 [facility] 1-11 capsules ity of e 00:00: by mouth [place] 36,000-114, 00 with meals Me dical 000- and 1 with Branch 180,000 each unit CpDR snack. lipase-prot 2021-10 Yes [id number] Take 2 [facility] 1-11 capsules ity of e 00:00: by mouth [place] 36,000-114, 00 with meals Me dical 000- and 1 with Branch 180,000 each unit CpDR snack. lipase-prot 2021-10 Yes [id number] Take 2 [facility] 1-11 capsules ity [...] capsule 28 [facility] gabapentin 2021-10 Yes 100mg [id number] Take [address] [facility] (NEURONTIN) 0-25 [id number] mg by L ukes 100 MG 10:54: [...] ity of capsule 16:31: 00:00 mouth 3 [place] 25 :00 (three) Medical times Branch daily. gabapentin 2021-10 No 100mg Take 100 [facility] 100 mg 0-18 10-18 mg by ity of capsule 16:31: 00:00 mouth 3 [place] 25 :00 (three) Medical times Branch daily. proMETHazin 2021-10 Yes [id number] 25mg Take 1 [facility] e 25 mg 0-18 tablet by ity of tablet 00:00: mouth at [place] 00 bedtime as Medical needed for Branch Nausea and Vomiting (N/V). B 2021-10 Yes [id number] 1{tbl} Take 1 [facility] ers Complex-Fol 0-18 tablet by ity of ic Acid (B 00:00: mouth [place] COMPLEX 1, 00 daily. Medical WITH FOLIC Branch ACID,) 0.4 mg Tab carvediloL 2021-10 Yes [id number] 6.25mg Take 1 [facility] 6.25 mg 0-18 tablet by ity of tablet 00:00: mouth in [place] 00 the Medical morning Branch and 1 tablet in the evening. Take with meals. docusate 2021-10 Yes [id number] 100mg Take 1 [facility] (COLACE) 0-18 capsule by ity o f 100 mg 00:00: mouth 2 [place] capsule 00 (two) Medical times Branch daily as needed for Constipati on. gabapentin 2021-10 Yes [id number] 100mg Take 1 [facility] 100 mg 0-18 [...] Indication s: chronic pain proMETHazin 2021-10 Yes [id number] 25mg Take 1 [facility] e 25 mg 0-18 tablet by ity of tablet 00:00: mouth at [place] 00 bedtime as Medical needed for Branch Nausea and Vomiting (N/V). B 2021-10 Yes [id number] 1{tbl} Take 1 [facility] ers Complex-Fol 0-18 tablet by ity of ic Acid (B 00:00: mouth [place] COMPLEX 1, 00 daily. Medical WITH FOLIC Branch ACID,) 0.4 mg Tab carvediloL 2021-10 Yes [id number] 6.25mg Take 1 [facility] 6.25 mg 0-18 tablet by ity of tablet 00:00: mouth in [place] 00 the Medical morning Branch and 1 tablet in the evening. Take with meals. docusate 2021-10 Yes [id number] 100mg Take 1 [facility] (COLACE) 0-18 capsule by ity o f 100 mg 00:00: mouth 2 [place] capsule 00 (two) Medical times Branch daily as needed for Constipati on. gabapentin 2021-10 Yes [id number] 100mg Take 1 [facility] 100 mg 0-18 capsule by ity of capsule 00:00: mouth in [place] 00 the Medical morning Branch and 1 capsule at noon and 1 capsule in the evening. traMADoL 50 2021-10 Yes [id number] 50mg Take 1 [facility] ers mg tablet 0-18 tablet by ity o f 00:00: mouth [place] 00 every 6 Medical (six) Branch hours as needed for Pain (scale 7-10) (Cannot take NSAIDS). Indication s: chronic pain proMETHazin 2021-10 Yes [id number] 25mg Take 1 [facility] e 25 mg 0-18 tablet by ity of tablet 00:00: mouth at [place] 00 bedtime as Medical needed for Branch Nausea and Vomiting (N/V). B 2021-10 Yes [id number] 1{tbl} Take 1 [facility] ers Complex-Fol 0-18 tablet by ity of ic Acid (B 00:00: mouth [place] COMPLEX 1, 00 daily. Medical WITH FOLIC Branch ACID,) 0.4 mg Tab carvediloL 2021-10 Yes [id number] 6.25mg Take 1 [facility] 6.25 mg 0-18 tablet by ity of tablet 00:00: mouth in [place] 00 the Medical morning Branch and 1 tablet in the evening. Take with meals. docusate 2021-10 Yes [id number] 100mg Take 1 [facility] (COLACE) 0-18 capsule by ity o f 100 mg 00:00: mouth 2 [place] capsule 00 (two) Medical times Branch daily as needed for Constipati on. gabapentin 2021-10 Yes [id number] 100mg Take 1 [facility] 100 mg 0-18 [...] Indication s: chronic pain proMETHazin 2021-10 Yes [id number] 25mg Take 1 [facility] e 25 mg 0-18 tablet by ity of tablet 00:00: mouth at [place] 00 bedtime as Medical needed for Branch Nausea and Vomiting (N/V). B 2021-10 Yes [id number] 1{tbl} Take 1 [facility] ers Complex-Fol 0-18 tablet by ity of ic Acid (B 00:00: mouth [place] COMPLEX 1, 00 daily. Medical WITH FOLIC Branch ACID,) 0.4 mg Tab carvediloL 2021-10 Yes [id number] 6.25mg Take 1 [facility] 6.25 mg 0-18 tablet by ity of tablet 00:00: mouth in [place] 00 the Medical morning Branch and 1 tablet in the evening. Take with meals. docusate 2021-10 Yes [id number] 100mg Take 1 [facility] (COLACE) 0-18 capsule by ity o f 100 mg 00:00: mouth 2 [place] capsule 00 (two) Medical times Branch daily as needed for Constipati on. gabapentin 2021-10 Yes [id number] 100mg Take 1 [facility] 100 mg 0-18 capsule by ity of capsule 00:00: mouth in [place] 00 the Medical morning Branch and 1 capsule at noon and 1 capsule in the evening. traMADoL 50 2021-10 Yes [id number] 50mg Take 1 [facility] ers mg tablet 0-18 tablet by ity o f 00:00: mouth [place] 00 every 6 Medical (six) Branch hours as needed for Pain (scale 7-10) (Cannot take NSAIDS). Indication s: chronic pain proMETHazin 2021-10 Yes [id number] 25mg Take 1 [facility] e 25 mg 0-18 tablet by ity of tablet 00:00: mouth at [place] 00 bedtime as Medical needed for Branch Nausea and Vomiting (N/V). B 2021-10 Yes [id number] 1{tbl} Take 1 [facility] ers Complex-Fol 0-18 tablet by ity of ic Acid (B 00:00: mouth [place] COMPLEX 1, 00 daily. Medical WITH FOLIC Branch ACID,) 0.4 mg Tab carvediloL 2021-10 Yes [id number] 6.25mg Take 1 [facility] 6.25 mg 0-18 tablet by ity of tablet 00:00: mouth in [place] 00 the Medical morning Branch and 1 tablet in the evening. Take with meals. docusate 2021-10 Yes [id number] 100mg Take 1 [facility] (COLACE) 0-18 capsule by ity o f 100 mg 00:00: mouth 2 [place] capsule 00 (two) Medical times Branch daily as needed for Constipati on. gabapentin 2021-10 Yes [id number] 100mg Take 1 [facility] 100 mg 0-18 capsule by ity of capsule 00:00: mouth in [place] 00 the Medical morning Branch and 1 capsule at noon and 1 capsule in the evening. traMADoL 50 2021-10 Yes [id number] 50mg Take 1 [facility] ers mg tablet 0-18 tablet by ity o f 00:00: mouth [place] 00 every 6 Medical (six) Branch hours as needed for Pain (scale 7-10) (Cannot take NSAIDS). Indication s: chronic pain proMETHazin 2021-10 Yes [id number] 25mg Take 1 [facility] e 25 mg 0-18 tablet by ity of tablet 00:00: mouth at [place] 00 bedtime as Medical needed for Branch Nausea and Vomiting (N/V). B 2021-10 Yes [id number] 1{tbl} Take 1 [facility] ers Complex-Fol 0-18 tablet by ity of ic Acid (B 00:00: mouth [place] COMPLEX 1, 00 daily. Medical WITH FOLIC Branch ACID,) 0.4 mg Tab carvediloL 2021-10 Yes [id number] 6.25mg Take 1 [facility] 6.25 mg 0-18 tablet by ity of tablet 00:00: mouth in [place] 00 the Medical morning Branch and 1 tablet in the evening. Take with meals. docusate 2021-10 Yes [id number] 100mg Take 1 [facility] (COLACE) 0-18 capsule by ity o f 100 mg 00:00: mouth 2 [place] capsule 00 (two) Medical times Branch daily as needed for Constipati on. gabapentin 2021-10 Yes [id number] 100mg Take 1 [facility] 100 mg 0-18 [...] Indication s: chronic pain proMETHazin 2021-10 Yes [id number] 25mg Take 1 [facility] e 25 mg 0-18 tablet by ity of tablet 00:00: mouth at [place] 00 bedtime as Medical needed for Branch Nausea and Vomiting (N/V). B 2021-10 Yes [id number] 1{tbl} Take 1 [facility] Complex-Fol 0-18 tablet by ity of ic Acid (B 00:00: mouth [place] COMPLEX 1, 00 daily. Medical WITH FOLIC Branch ACID,) 0.4 mg Tab carvediloL 2021-10 Yes [id number] 6.25mg Take 1 [facility] 6.25 mg 0-18 tablet by ity of tablet 00:00: mouth in [place] 00 the Medical morning Branch and 1 tablet in the evening. Take with meals. docusate 2021-10 Yes [id number] 100mg Take 1 [facility] (COLACE) 0-18 capsule by ity o f 100 mg 00:00: mouth 2 [place] capsule 00 (two) Medical times Branch daily as needed for Constipati on. gabapentin 2021-10 Yes [id number] 100mg Take 1 [facility] 100 mg 0-18 [...] Indication s: chronic pain proMETHazin 2021-10 Yes [id number] 25mg Take 1 [facility] e 25 mg 0-18 tablet by ity of tablet 00:00: mouth at [place] 00 bedtime as Medical needed for Branch Nausea and Vomiting (N/V). B 2021-10 Yes [id number] 1{tbl} Take 1 [facility] ers Complex-Fol 0-18 tablet by ity of ic Acid (B 00:00: mouth [place] COMPLEX 1, 00 daily. Medical WITH FOLIC Branch ACID,) 0.4 mg Tab carvediloL 2021-10 Yes [id number] 6.25mg Take 1 [facility] 6.25 mg 0-18 tablet by ity of tablet 00:00: mouth in [place] 00 the Medical morning Branch and 1 tablet in the evening. Take with meals. docusate 2021-10 Yes [id number] 100mg Take 1 [facility] (COL[facility]) 0-18 capsule by [facility] o f 100 mg 00:00: mouth 2 [place] capsule 00 (two) Medical times Branch daily as needed for Constipati on. gabapentin 2021-10 Yes [id number] 100mg Take 1 [facility] 100 mg 0-18 [...] Indication s: chronic pain proMETHazin 2021-10 Yes [id number] 25mg Take 1 [facility] 25 mg 0-18 tablet by [facility] tablet 00:00: mouth at [place] 00 bedtime as Medical needed for Branch Nausea and Vomiting (N/V). B 2021-10 Yes [id number] 1{tbl} Take 1 [facility] 0-18 tablet by [facility] ic Acid (B 00:00: mouth [place] COMPLEX 1, 00 daily. Medical WITH FOLIC Branch ACID,) 0.4 mg Tab carvediloL 2021-10 Yes [id number] 6.25mg Take 1 [facility] 6.25 mg 0-18 tablet by [facility] of tablet 00:00: mouth in [place] 00 the Medical morning Branch and 1 tablet in the evening. Take with meals. docusate 2021-10 Yes [id number] 100mg Take 1 [facility] (COLACE) 0-18 capsule by [facility] o f 100 mg 00:00: mouth 2 [place] capsule 00 (two) Medical times Branch daily as needed for Constipati on. gabapentin 2021-10 Yes [id number] 100mg Take 1 [facility] 100 mg 0-18 [...] Indication s: chronic pain proMETHazin 2021-10 Yes [id number] 25mg Take 1 [facility] 25 mg 0-18 tablet by [facility] tablet 00:00: mouth at [place] 00 bedtime as Medical needed for Branch Nausea and Vomiting (N/V). B 2021-10 Yes [id number] 1{tbl} Take 1 [facility] 0-18 tablet by [facility] ic Acid (B 00:00: mouth [place] COMPLEX 1, 00 daily. Medical WITH FOLIC Branch ACID,) 0.4 mg Tab docusate 2021-10 Yes [id number] 100mg Take 1 [facility] (COLACE) 0-18 capsule by [facility] o f 100 mg 00:00: mouth 2 [place] capsule 00 (two) Medical times Branch daily as needed for Constipati on. gabapentin 2021-10 Yes [id number] 100mg Take 1 [facility] 100 mg 0-18 capsule by [facility] of capsule 00:00: mouth in [place] 00 the Medical morning Branch and 1 capsule at noon and 1 capsule in the evening. proMETHazin 2021-10 Yes [id number] 25mg Take 1 [facility] 25 mg 0-18 tablet by [facility] tablet 00:00: mouth at [place] 00 bedtime as Medical needed for Branch Nausea and Vomiting (N/V). B 2021-10 Yes [id number] 1{tbl} Take 1 [facility] 0-18 tablet by [facility] ic Acid (B 00:00: mouth [place] COMPLEX 1, 00 daily. Medical WITH FOLIC Branch ACID,) 0.4 mg Tab docusate 2021-10 Yes [id number] 100mg Take 1 [facility] (COLACE) 0-18 capsule by [facility] o f 100 mg 00:00: mouth 2 [place] capsule 00 (two) Medical times Branch daily as needed for Constipati on. gabapentin 2021-10 Yes [id number] 100mg Take 1 [facility] 100 mg 0-18 capsule by [facility] capsule 00:00: mouth in [place] 00 the Medical morning Branch and 1 capsule at noon and 1 capsule in the evening. proMETHazin 2021-10 Yes [id number] 25mg Take 1 [facility] 25 mg 0-18 tablet by [facility] tablet 00:00: mouth at [place] 00 bedtime as Medical needed for Branch Nausea and Vomiting (N/V). B 2021-10 Yes [id number] 1{tbl} Take 1 [facility] 0-18 tablet by [facility] ic Acid (B 00:00: mouth [place] COMPLEX 1, 00 daily. Medical WITH FOLIC Branch ACID,) 0.4 mg Tab docusate 2021-10 Yes [id number] 100mg Take 1 [facility] (COLACE) 0-18 capsule by [facility] o f 100 mg 00:00: mouth 2 [place] capsule 00 (two) Medical times Branch daily as needed for Constipati on. gabapentin 2021-10 Yes [id number] 100mg Take 1 [facility] 100 mg 0-18 capsule by [facility] of capsule 00:00: mouth in [place] 00 the Medical morning Branch and 1 capsule at noon and 1 capsule in the evening. proMETHazin 2021-10 Yes [id number] 25mg Take 1 [facility] 25 mg 0-18 tablet by [facility] tablet 00:00: mouth at [place] 00 bedtime as Medical needed for Branch Nausea and Vomiting (N/V). B 2021-10 Yes [id number] 1{tbl} Take 1 [facility] 0-18 tablet by [facility] ic Acid (B 00:00: mouth [place] COMPLEX 1, 00 daily. Medical WITH FOLIC Branch ACID,) 0.4 mg Tab docusate 2021-10 Yes [id number] 100mg Take 1 [facility] (COLACE) 0-18 capsule by [facility] o f 100 mg 00:00: mouth 2 [place] capsule 00 (two) Medical times Branch daily as needed for Constipati on. gabapentin 2021-10 Yes [id number] 100mg Take 1 [facility] 100 mg 0-18 capsule by [facility] of capsule 00:00: mouth in [place] 00 the Medical morning Branch and 1 capsule at noon and 1 capsule in the evening. proMETHazin 2021-10 Yes [id number] 25mg Take 1 [facility] 25 mg 0-18 tablet by [facility] tablet 00:00: mouth at [place] 00 bedtime as Medical needed for Branch Nausea and Vomiting (N/V). B 2021-10 Yes [id number] 1{tbl} Take 1 [facility] 0-18 tablet by [facility] ic Acid (B 00:00: mouth [place] COMPLEX 1, 00 daily. Medical WITH FOLIC Branch ACID,) 0.4 mg Tab docusate 2021-10 Yes [id number] 100mg Take 1 [facility] (COLACE) 0-18 capsule by [facility] o f 100 mg 00:00: mouth 2 [place] capsule 00 (two) Medical times Branch daily as needed for Constipati on. gabapentin 2021-10 Yes [id number] 100mg Take 1 [facility] 100 mg 0-18 capsule by [facility] capsule 00:00: mouth in [place] 00 the Medical morning Branch and 1 capsule at noon and 1 capsule in the evening. proMETHazin 2021-10 Yes [id number] 25mg Take 1 [facility] 25 mg 0-18 tablet by [facility] tablet 00:00: mouth at [place] 00 bedtime as Medical needed for Branch Nausea and Vomiting (N/V). B 2021-10 Yes [id number] 1{tbl} Take 1 [facility] 0-18 tablet by [facility] ic Acid (B 00:00: mouth [place] COMPLEX 1, 00 daily. Medical WITH FOLIC Branch ACID,) 0.4 mg Tab docusate 2021-10 Yes [id number] 100mg Take 1 [facility] (COLACE) 0-18 capsule by [facility] o f 100 mg 00:00: mouth 2 [place] capsule 00 (two) Medical times Branch daily as needed for Constipati on. gabapentin 2021-10 Yes [id number] 100mg Take 1 [facility] 100 mg 0-18 capsule by [facility] capsule 00:00: mouth in [place] 00 the Medical morning Branch and 1 capsule at noon and 1 capsule in the evening. proMETHazin 2021-10 Yes [id number] 25mg Take 1 [facility] 25 mg 0-18 tablet by [facility] tablet 00:00: mouth at [place] 00 bedtime as Medical needed for Branch Nausea and Vomiting (N/V). B 2021-10 Yes [id number] 1{tbl} Take 1 [facility] 0-18 tablet by [facility] ic Acid (B 00:00: mouth [place] COMPLEX 1, 00 daily. Medical WITH FOLIC Branch ACID,) 0.4 mg Tab docusate 2021-10 Yes [id number] 100mg Take 1 [facility] (COLACE) 0-18 capsule by [facility] o f 100 mg 00:00: mouth 2 [place] capsule 00 (two) Medical times Branch daily as needed for Constipati on. gabapentin 2021-10 Yes [id number] 100mg Take 1 [facility] 100 mg 0-18 capsule by [facility] of capsule 00:00: mouth in [place] 00 the Medical morning Branch and 1 capsule at noon and 1 capsule in the evening. proMETHazin 2021-10 Yes [id number] 25mg Take 1 [facility] 25 mg 0-18 tablet by [facility] tablet 00:00: mouth at [place] 00 bedtime as Medical needed for Branch Nausea and Vomiting (N/V). B 2021-10 Yes [id number] 1{tbl} Take 1 [facility] 0-18 tablet by [facility] ic Acid (B 00:00: mouth [place] COMPLEX 1, 00 daily. Medical WITH FOLIC Branch ACID,) 0.4 mg Tab docusate 2021-10 Yes [id number] 100mg Take 1 [facility] (COLACE) 0-18 capsule by [facility] o f 100 mg 00:00: mouth 2 [place] capsule 00 (two) Medical times Branch daily as needed for Constipati on. gabapentin 2021-10 Yes [id number] 100mg Take 1 [facility] 100 mg 0-18 capsule by [facility] capsule 00:00: mouth in [place] 00 the Medical morning Branch and 1 capsule at noon and 1 capsule in the evening. proMETHazin 2021-10 Yes [id number] 25mg Take 1 [facility] 25 mg 0-18 tablet by [facility] tablet 00:00: mouth at [place] 00 bedtime as Medical needed for Branch Nausea and Vomiting (N/V). B 2021-10 Yes [id number] 1{tbl} Take 1 [facility] 0-18 tablet by [facility] ic Acid (B 00:00: mouth [place] COMPLEX 1, 00 daily. Medical WITH FOLIC Branch ACID,) 0.4 mg Tab docusate 2021-10 Yes [id number] 100mg Take 1 [facility] (COL[facility]) 0-18 capsule by [facility] o f 100 mg 00:00: mouth 2 [place] capsule 00 (two) Medical times Branch daily as needed for Constipati on. proMETHazin 2021-10 Yes [id number] 25mg Take 1 [facility] 25 mg 0-18 tablet by [facility] tablet 00:00: mouth at [place] 00 bedtime as Medical needed for Branch Nausea and Vomiting (N/V). 2021-10 Yes [id number] 1{tbl} Take 1 [facility] 0-18 tablet by [facility] ic Acid (B 00:00: mouth [place] COMPLEX 1, 00 daily. Medical WITH FOLIC Branch ACID,) 0.4 mg Tab docusate 2021-10 Yes [id number] 100mg Take 1 [facility] (COL[facility]) 0-18 capsule by [facility] o f 100 mg 00:00: mouth 2 [place] capsule 00 (two) Medical times Branch daily as needed for Constipati on. proMETHazin 2021-10 Yes [id number] 25mg Take 1 [facility] 25 mg 0-18 tablet by [facility] tablet 00:00: mouth at [place] 00 bedtime as Medical needed for Branch Nausea and Vomiting (N/V). 2021-10 Yes [id number] 1{tbl} Take 1 [facility] 0-18 tablet by [facility] ic Acid (B 00:00: mouth [place] COMPLEX 1, 00 daily. Medical WITH FOLIC Branch ACID,) 0.4 mg Tab docusate 2021-10 Yes [id number] 100mg Take 1 [facility] (COL[facility]) 0-18 capsule by [facility] o f 100 mg 00:00: mouth 2 [place] capsule 00 (two) Medical times Branch daily as needed for Constipati on. proMETHazin 2021-10 Yes [id number] 25mg Take 1 [facility] 25 mg 0-18 tablet by [facility] of tablet 00:00: mouth at [place] 00 bedtime as Medical needed for Branch Nausea and Vomiting (N/V). 2021-10 Yes [id number] 1{tbl} Take 1 [facility] 0-18 tablet by [facility] ic Acid (B 00:00: mouth [place] COMPLEX 1, 00 daily. Medical WITH FOLIC Branch ACID,) 0.4 mg Tab docusate 2021-10 Yes [id number] 100mg Take 1 [facility] (COL[facility]) 0-18 capsule by [facility] o f 100 mg 00:00: mouth 2 [place] capsule 00 (two) Medical times Branch daily as needed for Constipati on. proMETHazin 2021-10 Yes [id number] 25mg Take 1 [facility] 25 mg 0-18 tablet by [facility] of tablet 00:00: mouth at [place] 00 bedtime as Medical needed for Branch Nausea and Vomiting (N/V). 2021-10 Yes [id number] 1{tbl} Take 1 [facility] 0-18 tablet by [facility] ic Acid (B 00:00: mouth [place] COMPLEX 1, 00 daily. Medical WITH FOLIC Branch ACID,) 0.4 mg Tab docusate 2021-10 Yes [id number] 100mg Take 1 [facility] (COL[facility]) 0-18 capsule by [facility] o f 100 mg 00:00: mouth 2 [place] capsule 00 (two) Medical times Branch daily as needed for Constipati on. proMETHazin 2021-10 Yes [id number] 25mg Take 1 [facility] 25 mg 0-18 tablet by [facility] of tablet 00:00: mouth at [place] 00 bedtime as Medical needed for Branch Nausea and Vomiting (N/V). 2021-10 Yes [id number] 1{tbl} Take 1 [facility] 0-18 tablet by [facility] ic Acid (B 00:00: mouth [place] COMPLEX 1, 00 daily. Medical WITH FOLIC Branch ACID,) 0.4 mg Tab docusate 2021-10 Yes [id number] 100mg Take 1 [facility] (COLACE) 0-18 capsule by [facility] o f 100 mg 00:00: mouth 2 [place] capsule 00 (two) Medical times Branch daily as needed for Constipati on. proMETHazin 2021-10 Yes [id number] 25mg Take 1 [facility] 25 mg 0-18 tablet by [facility] of tablet 00:00: mouth at [place] 00 bedtime as Medical needed for Branch Nausea and Vomiting (N/V). 2021-10 Yes [id number] 1{tbl} Take 1 [facility] 0-18 tablet by [facility] ic Acid (B 00:00: mouth [place] COMPLEX 1, 00 daily. Medical WITH FOLIC Branch ACID,) 0.4 mg Tab docusate 2021-10 Yes [id number] 100mg Take 1 [facility] (COL[facility]) 0-18 capsule by [facility] o f 100 mg 00:00: mouth 2 [place] capsule 00 (two) Medical times Branch daily as needed for Constipati on. proMETHazin 2021-10 Yes [id number] 25mg Take 1 [facility] 25 mg 0-18 tablet by [facility] of tablet 00:00: mouth at [place] 00 bedtime as Medical needed for Branch Nausea and Vomiting (N/V). 2021-10 Yes [id number] 1{tbl} Take 1 [facility] 0-18 tablet by [facility] ic Acid (B 00:00: mouth [place] COMPLEX 1, 00 daily. Medical WITH FOLIC Branch ACID,) 0.4 mg Tab docusate 2021-10 Yes [id number] 100mg Take 1 [facility] (COLACE) 0-18 capsule by [facility] o f 100 mg 00:00: mouth 2 [place] capsule 00 (two) Medical times Branch daily as needed for Constipati on. proMETHazin 2021-10 Yes [id number] 25mg Take 1 [facility] 25 mg 0-18 tablet by [facility] of tablet 00:00: mouth at [place] 00 bedtime as Medical needed for Branch Nausea and Vomiting (N/V). 2021-10 Yes [id number] 1{tbl} Take 1 [facility] 0-18 tablet by [facility] ic Acid (B 00:00: mouth [place] COMPLEX 1, 00 daily. Medical WITH FOLIC Branch ACID,) 0.4 mg Tab docusate 2021-10 Yes [id number] 100mg Take 1 [facility] (COLACE) 0-18 capsule by [facility] o f 100 mg 00:00: mouth 2 [place] capsule 00 (two) Medical times Branch daily as needed for Constipati on. proMETHazin 2021-10 Yes [id number] 25mg Take 1 [facility] 25 mg 0-18 tablet by [facility] of tablet 00:00: mouth at [place] 00 bedtime as Medical needed for Branch Nausea and Vomiting (N/V). 2021-10 Yes [id number] 1{tbl} Take 1 [facility] 0-18 tablet by [facility] ic Acid (B 00:00: mouth [place] COMPLEX 1, 00 daily. Medical WITH FOLIC Branch ACID,) 0.4 mg Tab docusate 2021-10 Yes [id number] 100mg Take 1 [facility] (COLACE) 0-18 capsule by [facility] o f 100 mg 00:00: mouth 2 [place] capsule 00 (two) Medical times Branch daily as needed for Constipati on. proMETHazin 2021-10 Yes [id number] 25mg Take 1 [facility] 25 mg 0-18 tablet by [facility] of tablet 00:00: mouth at [place] 00 bedtime as Medical needed for Branch Nausea and Vomiting (N/V). 2021-10 Yes [id number] 1{tbl} Take 1 [facility] 0-18 tablet by [facility] ic Acid (B 00:00: mouth [place] COMPLEX 1, 00 daily. Medical WITH FOLIC Branch ACID,) 0.4 mg Tab docusate 2021-10 Yes [id number] 100mg Take 1 [facility] (COLACE) 0-18 capsule by [facility] o f 100 mg 00:00: mouth 2 [place] capsule 00 (two) Medical times Branch daily as needed for Constipati on. proMETHazin 2021-10 Yes [id number] 25mg Take 1 [facility] 25 mg 0-18 tablet by [facility] of tablet 00:00: mouth at [place] 00 bedtime as Medical needed for Branch Nausea and Vomiting (N/V). 2021-10 Yes [id number] 1{tbl} Take 1 [facility] 0-18 tablet by [facility] ic Acid (B 00:00: mouth [place] COMPLEX 1, 00 daily. Medical WITH FOLIC Branch ACID,) 0.4 mg Tab docusate 2021-10 Yes [id number] 100mg Take 1 [facility] (COL[facility]) 0-18 capsule by [facility] o f 100 mg 00:00: mouth 2 [place] capsule 00 (two) Medical times Branch daily as needed for Constipati on. proMETHazin 2021-10 Yes [id number] 25mg Take 1 [facility] 25 mg 0-18 tablet by [facility] of tablet 00:00: mouth at [place] 00 bedtime as Medical needed for Branch Nausea and Vomiting (N/V). 2021-10 Yes [id number] 1{tbl} Take 1 [facility] 0-18 tablet by [facility] ic Acid (B 00:00: mouth [place] COMPLEX 1, 00 daily. Medical WITH FOLIC Branch ACID,) 0.4 mg Tab docusate 2021-10 Yes [id number] 100mg Take 1 [facility] (COL[facility]) 0-18 capsule by [facility] o f 100 mg 00:00: mouth 2 [place] capsule 00 (two) Medical times Branch daily as needed for Constipati on. proMETHazin 2021-10 Yes [id number] 25mg Take 1 [facility] 25 mg 0-18 tablet by [facility] of tablet 00:00: mouth at [place] 00 bedtime as Medical needed for Branch Nausea and Vomiting (N/V). 2021-10 Yes [id number] 1{tbl} Take 1 [facility] 0-18 tablet by [facility] ic Acid (B 00:00: mouth [place] COMPLEX 1, 00 daily. Medical WITH FOLIC Branch ACID,) 0.4 mg Tab docusate 2021-10 Yes [id number] 100mg Take 1 [facility] (COL[facility]) 0-18 capsule by [facility] o f 100 mg 00:00: mouth 2 [place] capsule 00 (two) Medical times Branch daily as needed for Constipati on. proMETHazin 2021-10 Yes [id number] 25mg Take 1 [facility] 25 mg 0-18 tablet by [facility] of tablet 00:00: mouth at [place] 00 bedtime as Medical needed for Branch Nausea and Vomiting (N/V). 2021-10 Yes [id number] 1{tbl} Take 1 [facility] 0-18 tablet by [facility] ic Acid (B 00:00: mouth [place] COMPLEX 1, 00 daily. Medical WITH FOLIC Branch ACID,) 0.4 mg Tab docusate 2021-10 Yes [id number] 100mg Take 1 [facility] (COL[facility]) 0-18 capsule by [facility] o f 100 mg 00:00: mouth 2 [place] capsule 00 (two) Medical times Branch daily as needed for Constipati on. proMETHazin 2021-10 Yes [id number] 25mg Take 1 [facility] 25 mg 0-18 tablet by [facility] of tablet 00:00: mouth at [place] 00 bedtime as Medical needed for Branch Nausea and Vomiting (N/V). B 2021-10 Yes [id number] 1{tbl} Take 1 [facility] 0-18 tablet by [facility] ic Acid (B 00:00: mouth [place] COMPLEX 1, 00 daily. Medical WITH FOLIC Branch ACID,) 0.4 mg Tab docusate 2021-10 Yes [id number] 100mg Take 1 [facility] (COL[facility]) 0-18 capsule by [facility] o f 100 mg 00:00: mouth 2 [place] capsule 00 (two) Medical times Branch daily as needed for Constipati on. proMETHazin 2021-10 Yes [id number] 25mg Take 1 [facility] 25 mg 0-18 tablet by [facility] of tablet 00:00: mouth at [place] 00 bedtime as Medical needed for Branch Nausea and Vomiting (N/V). 2021-10 Yes [id number] 1{tbl} Take 1 [facility] 0-18 tablet by [facility] of ic Acid (B 00:00: mouth [place] COMPLEX 1, 00 daily. Medical WITH FOLIC Branch ACID,) 0.4 mg Tab docusate 2021-10 Yes [id number] 100mg Take 1 [facility] (COL[facility]) 0-18 capsule by [facility] o f 100 mg 00:00: mouth 2 [place] capsule 00 (two) Medical times Branch daily as needed for Constipati on. proMETHazin 2021-10 Yes [id number] 25mg Take 1 [facility] 25 mg 0-18 tablet by [facility] of tablet 00:00: mouth at [place] 00 bedtime as Medical needed for Branch Nausea and Vomiting (N/V). 2021-10 Yes [id number] 1{tbl} Take 1 [facility] 0-18 tablet by [facility] ic Acid (B 00:00: mouth [place] COMPLEX 1, 00 daily. Medical WITH FOLIC Branch ACID,) 0.4 mg Tab docusate 2021-10 Yes [id number] 100mg Take 1 [facility] (COL[facility]) 0-18 capsule by [facility] o f 100 mg 00:00: mouth 2 [place] capsule 00 (two) Medical times Branch daily as needed for Constipati on. proMETHazin 2021-10 Yes [id number] 25mg Take 1 [facility] 25 mg 0-18 tablet by [facility] of tablet 00:00: mouth at [place] 00 bedtime as Medical needed for Branch Nausea and Vomiting (N/V). 2021-10 Yes [id number] 1{tbl} Take 1 [facility] 0-18 tablet by [facility] ic Acid (B 00:00: mouth [place] COMPLEX 1, 00 daily. Medical WITH FOLIC Branch ACID,) 0.4 mg Tab docusate 2021-10 Yes [id number] 100mg Take 1 [facility] (COL[facility]) 0-18 capsule by [facility] o f 100 mg 00:00: mouth 2 [place] capsule 00 (two) Medical times Branch daily as needed for Constipati on. proMETHazin 2021-10 Yes [id number] 25mg Take 1 [facility] 25 mg 0-18 tablet by [facility] of tablet 00:00: mouth at [place] 00 bedtime as Medical needed for Branch Nausea and Vomiting (N/V). 2021-10 Yes [id number] 1{tbl} Take 1 [facility] 0-18 tablet by [facility] ic Acid (B 00:00: mouth [place] COMPLEX 1, 00 daily. Medical WITH FOLIC Branch ACID,) 0.4 mg Tab docusate 2021-10 Yes [id number] 100mg Take 1 [facility] (COL[facility]) 0-18 capsule by [facility] o f 100 mg 00:00: mouth 2 [place] capsule 00 (two) Medical times Branch daily as needed for Constipati on. proMETHazin 2021-10 Yes [id number] 25mg Take 1 [facility] 25 mg 0-18 tablet by [facility] of tablet 00:00: mouth at [place] 00 bedtime as Medical needed for Branch Nausea and Vomiting (N/V). 2021-10 Yes [id number] 1{tbl} Take 1 [facility] 0-18 tablet by [facility] ic Acid (B 00:00: mouth [place] COMPLEX 1, 00 daily. Medical WITH FOLIC Branch ACID,) 0.4 mg Tab docusate 2021-10 Yes [id number] 100mg Take 1 [facility] (COL[facility]) 0-18 capsule by [facility] o f 100 mg 00:00: mouth 2 [place] capsule 00 (two) Medical times Branch daily as needed for Constipati on. proMETHazin 2021-10 Yes [id number] 25mg Take 1 [facility] 25 mg 0-18 tablet by [facility] of tablet 00:00: mouth at [place] 00 bedtime as Medical needed for Branch Nausea and Vomiting (N/V). 2021-10 Yes [id number] 1{tbl} Take 1 [facility] 0-18 tablet by [facility] ic Acid (B 00:00: mouth [place] COMPLEX 1, 00 daily. Medical WITH FOLIC Branch ACID,) 0.4 mg Tab docusate 2021-10 Yes [id number] 100mg Take 1 [facility] ([facility]) 0-18 capsule by [facility] o f 100 mg 00:00: mouth 2 [place] capsule 00 (two) Medical times Branch daily as needed for Constipati on. proMETHazin 2021-10 Yes [id number] 25mg Take 1 [facility] 25 mg 0-18 tablet by [facility] of tablet 00:00: mouth at [place] 00 bedtime as Medical needed for Branch Nausea and Vomiting (N/V). 2021-10 Yes [id number] 1{tbl} Take 1 [facility] 0-18 tablet by [facility] ic Acid (B 00:00: mouth [place] COMPLEX 1, 00 daily. Medical WITH FOLIC Branch ACID,) 0.4 mg Tab docusate 2021-10 Yes [id number] 100mg Take 1 [facility] ([facility]) 0-18 capsule by [facility] o f 100 mg 00:00: mouth 2 [place] capsule 00 (two) Medical times Branch daily as needed for Constipati on. proMETHazin 2021-10 Yes [id number] 25mg Take 1 [facility] 25 mg 0-18 tablet by [facility] of tablet 00:00: mouth at [place] 00 bedtime as Medical needed for Branch Nausea and Vomiting (N/V). 2021-10 Yes [id number] 1{tbl} Take 1 [facility] 0-18 tablet by [facility] ic Acid (B 00:00: mouth [place] COMPLEX 1, 00 daily. Medical WITH FOLIC Branch ACID,) 0.4 mg Tab docusate 2021-10 Yes [id number] 100mg Take 1 [facility] (COL[facility]) 0-18 capsule by [facility] o f 100 mg 00:00: mouth 2 [place] capsule 00 (two) Medical times Branch daily as needed for Constipati on. proMETHazin 2021-10 Yes [id number] 25mg Take 1 [facility] 25 mg 0-18 tablet by [facility] of tablet 00:00: mouth at [place] 00 bedtime as Medical needed for Branch Nausea and Vomiting (N/V). 2021-10 Yes [id number] 1{tbl} Take 1 [facility] 0-18 tablet by [facility] ic Acid (B 00:00: mouth [place] COMPLEX 1, 00 daily. Medical WITH FOLIC Branch ACID,) 0.4 mg Tab docusate 2021-10 Yes [id number] 100mg Take 1 [facility] ([facility]) 0-18 capsule by [facility] o f 100 mg 00:00: mouth 2 [place] capsule 00 (two) Medical times Branch daily as needed for Constipati on. proMETHazin 2021-10 Yes [id number] 25mg Take 1 [facility] 25 mg 0-18 tablet by [facility] of tablet 00:00: mouth at [place] 00 bedtime as Medical needed for Branch Nausea and Vomiting (N/V). 2021-10 Yes [id number] 1{tbl} Take 1 [facility] 0-18 tablet by [facility] ic Acid (B 00:00: mouth [place] COMPLEX 1, 00 daily. Medical WITH FOLIC Branch ACID,) 0.4 mg Tab docusate 2021-10 Yes [id number] 100mg Take 1 [facility] ([facility]) 0-18 capsule by [facility] o f 100 mg 00:00: mouth 2 [place] capsule 00 (two) Medical times Branch daily as needed for Constipati on. proMETHazin 2021-10 Yes [id number] 25mg Take 1 [facility] 25 mg 0-18 tablet by [facility] of tablet 00:00: mouth at [place] 00 bedtime as Medical needed for Branch Nausea and Vomiting (N/V). 2021-10 Yes [id number] 1{tbl} Take 1 [facility] 0-18 tablet by [facility] ic Acid (B 00:00: mouth [place] COMPLEX 1, 00 daily. Medical WITH FOLIC Branch ACID,) 0.4 mg Tab docusate 2021-10 Yes [id number] 100mg Take 1 [facility] ([facility]) 0-18 capsule by [facility] o f 100 mg 00:00: mouth 2 [place] capsule 00 (two) Medical times Branch daily as needed for Constipati on. proMETHazin 2021-10 Yes [id number] 25mg Take 1 [facility] 25 mg 0-18 tablet by [facility] of tablet 00:00: mouth at [place] 00 bedtime as Medical needed for Branch Nausea and Vomiting (N/V). B 2021-10 Yes [id number] 1{tbl} Take 1 [facility] 0-18 tablet by [facility] of ic Acid (B 00:00: mouth [place] COMPLEX 1, 00 daily. Medical WITH FOLIC Branch ACID,) 0.4 mg Tab docusate 2021-10 Yes [id number] 100mg Take 1 [facility] (COL[facility]) 0-18 capsule by [facility] o f 100 mg 00:00: mouth 2 [place] capsule 00 (two) Medical times Branch daily as needed for Constipati on. proMETHazin 2021-10 Yes [id number] 25mg Take 1 [facility] 25 mg 0-18 tablet by [facility] of tablet 00:00: mouth at [place] 00 bedtime as Medical needed for Branch Nausea and Vomiting (N/V). 2021-10 Yes [id number] 1{tbl} Take 1 [facility] 0-18 tablet by [facility] of ic Acid (B 00:00: mouth [place] COMPLEX 1, 00 daily. Medical WITH FOLIC Branch ACID,) 0.4 mg Tab docusate 2021-10 Yes [id number] 100mg Take 1 [facility] (COL[facility]) 0-18 capsule by [facility] o f 100 mg 00:00: mouth 2 [place] capsule 00 (two) Medical times Branch daily as needed for Constipati on. proMETHazin 2021-10 Yes [id number] 25mg Take 1 [facility] 25 mg 0-18 tablet by [facility] of tablet 00:00: mouth at [place] 00 bedtime as Medical needed for Branch Nausea and Vomiting (N/V). 2021-10 Yes [id number] 1{tbl} Take 1 [facility] 0-18 tablet by [facility] ic Acid (B 00:00: mouth [place] COMPLEX 1, 00 daily. Medical WITH FOLIC Branch ACID,) 0.4 mg Tab docusate 2021-10 Yes [id number] 100mg Take 1 [facility] (COL[facility]) 0-18 capsule by [facility] o f 100 mg 00:00: mouth 2 [place] capsule 00 (two) Medical times Branch daily as needed for Constipati on. proMETHazin 2021-10 Yes [id number] 25mg Take 1 [facility] 25 mg 0-18 tablet by [facility] of tablet 00:00: mouth at [place] 00 bedtime as Medical needed for Branch Nausea and Vomiting (N/V). B 2021-10 Yes [id number] 1{tbl} Take 1 [facility] 0-18 tablet by [facility] of ic Acid (B 00:00: mouth [place] COMPLEX 1, 00 daily. Medical WITH FOLIC Branch ACID,) 0.4 mg Tab docusate 2021-10 Yes [id number] 100mg Take 1 [facility] (COL[facility]) 0-18 capsule by [facility] o f 100 mg 00:00: mouth 2 [place] capsule 00 (two) Medical times Branch daily as needed for Constipati on. proMETHazin 2021-10 Yes [id number] 25mg Take 1 [facility] 25 mg 0-18 tablet by [facility] of tablet 00:00: mouth at [place] 00 bedtime as Medical needed for Branch Nausea and Vomiting (N/V). B 2021-10 Yes [id number] 1{tbl} Take 1 [facility] 0-18 tablet by [facility] ic Acid (B 00:00: mouth [place] COMPLEX 1, 00 daily. Medical WITH FOLIC Branch ACID,) 0.4 mg Tab docusate 2021-10 Yes [id number] 100mg Take 1 [facility] (COLACE) 0-18 capsule by [facility] o f 100 mg 00:00: mouth 2 [place] capsule 00 (two) Medical times Branch daily as needed for Constipati on. proMETHazin 2021-10 Yes [id number] 25mg Take 1 [facility] 25 mg 0-18 tablet by [facility] of tablet 00:00: mouth at [place] 00 bedtime as Medical needed for Branch Nausea and Vomiting (N/V). 2021-10 Yes [id number] 1{tbl} Take 1 [facility] 0-18 tablet by [facility] ic Acid (B 00:00: mouth [place] COMPLEX 1, 00 daily. Medical WITH FOLIC Branch ACID,) 0.4 mg Tab docusate 2021-10 Yes [id number] 100mg Take 1 [facility] (COLACE) 0-18 capsule by it[facility] o f 100 mg 00:00: mouth 2 [place] capsule 00 (two) Medical times Branch daily as needed for Constipati on. proMETHazin 2021-10 Yes [id number] 25mg Take 1 [facility] 25 mg 0-18 tablet by [facility] of tablet 00:00: mouth at [place] 00 bedtime as Medical needed for Branch Nausea and Vomiting (N/V). B 2021-10 Yes [id number] 1{tbl} Take 1 [facility] 0-18 tablet by [facility] ic Acid (B 00:00: mouth [place] COMPLEX 1, 00 daily. Medical WITH FOLIC Branch ACID,) 0.4 mg Tab docusate 2021-10 Yes [id number] 100mg Take 1 [facility] (COLACE) 0-18 capsule by [facility]y o f 100 mg 00:00: mouth 2 [place] capsule 00 (two) Medical times Branch daily as needed for Constipati on. proMETHazin 2021-10 Yes [id number] 25mg Take 1 [facility] 25 mg 0-18 tablet by [facility] of tablet 00:00: mouth at [place] 00 bedtime as Medical needed for Branch Nausea and Vomiting (N/V). B 2021-10 Yes [id number] 1{tbl} Take 1 [facility] 0-18 tablet by [facility] ic Acid (B 00:00: mouth [place] COMPLEX 1, 00 daily. Medical WITH FOLIC Branch ACID,) 0.4 mg Tab docusate 2021-10 Yes [id number] 100mg Take 1 [facility] (COLACE) 0-18 capsule by ity o f 100 mg 00:00: mouth 2 [place] capsule 00 (two) Medical times Branch daily as needed for Constipati on. proMETHazin 2021-10 Yes [id number] 25mg Take 1 [facility] 25 mg 0-18 tablet by [facility] of tablet 00:00: mouth at [place] 00 bedtime as Medical needed for Branch Nausea and Vomiting (N/V). B 2021-10 Yes [id number] 1{tbl} Take 1 [facility] 0-18 tablet by [facility] ic Acid (B 00:00: mouth [place] COMPLEX 1, 00 daily. Medical WITH FOLIC Branch ACID,) 0.4 mg Tab docusate 2021-10 Yes [id number] 100mg Take 1 [facility] (COLACE) 0-18 capsule by [facility]y o f 100 mg 00:00: mouth 2 [place] capsule 00 (two) Medical times Branch daily as needed for Constipati on. proMETHazin 2021-10 Yes [id number] 25mg Take 1 [facility] 25 mg 0-18 tablet by [facility] of tablet 00:00: mouth at [place] 00 bedtime as Medical needed for Branch Nausea and Vomiting (N/V). B 2021-10 Yes [id number] 1{tbl} Take 1 [facility] 0-18 tablet by [facility] ic Acid (B 00:00: mouth [place] COMPLEX 1, 00 daily. Medical WITH FOLIC Branch ACID,) 0.4 mg Tab docusate 2021-10 Yes [id number] 100mg Take 1 [facility] (COLACE) 0-18 capsule by [facility] o f 100 mg 00:00: mouth 2 [place] capsule 00 (two) Medical times Branch daily as needed for Constipati on. proMETHazin 2021-10 Yes [id number] 25mg Take 1 [facility] 25 mg 0-18 tablet by [facility] of tablet 00:00: mouth at [place] 00 bedtime as Medical needed for Branch Nausea and Vomiting (N/V). B 2021-10 Yes [id number] 1{tbl} Take 1 [facility] 0-18 tablet by [facility] ic Acid (B 00:00: mouth [place] COMPLEX 1, 00 daily. Medical WITH FOLIC Branch ACID,) 0.4 mg Tab docusate 2021-10 Yes [id number] 100mg Take 1 [facility] (COLACE) 0-18 capsule by ity o f 100 mg 00:00: mouth 2 [place] capsule 00 (two) Medical times Branch daily as needed for Constipati on. proMETHazin 2021-10 Yes [id number] 25mg Take 1 [facility] 25 mg 0-18 tablet by [facility] of tablet 00:00: mouth at [place] 00 bedtime as Medical needed for Branch Nausea and Vomiting (N/V). B 2021-10 Yes [id number] 1{tbl} Take 1 [facility] 0-18 tablet by [facility] ic Acid (B 00:00: mouth [place] COMPLEX 1, 00 daily. Medical WITH FOLIC Branch ACID,) 0.4 mg Tab docusate 2021-10 Yes [id number] 100mg Take 1 [facility] (COLACE) 0-18 capsule by [facility]y o f 100 mg 00:00: mouth 2 [place] capsule 00 (two) Medical times Branch daily as needed for Constipati on. proMETHazin 2021-10 Yes [id number] 25mg Take 1 [facility] 25 mg 0-18 tablet by [facility] of tablet 00:00: mouth at [place] 00 bedtime as Medical needed for Branch Nausea and Vomiting (N/V). B 2021-10 Yes [id number] 1{tbl} Take 1 [facility] 0-18 tablet by [facility] of ic Acid (B 00:00: mouth [place] COMPLEX 1, 00 daily. Medical WITH FOLIC Branch ACID,) 0.4 mg Tab docusate 2021-10 Yes [id number] 100mg Take 1 [facility] (COLACE) 0-18 capsule by [facility]y o f 100 mg 00:00: mouth 2 [place] capsule 00 (two) Medical times Branch daily as needed for Constipati on. proMETHazin 2021-10 Yes [id number] 25mg Take 1 [facility] 25 mg 0-18 tablet by [facility] of tablet 00:00: mouth at [place] 00 bedtime as Medical needed for Branch Nausea and Vomiting (N/V). B 2021-10 Yes [id number] 1{tbl} Take 1 [facility] 0-18 tablet by [facility] of ic Acid (B 00:00: mouth [place] COMPLEX 1, 00 daily. Medical WITH FOLIC Branch ACID,) 0.4 mg Tab docusate 2021-10 Yes [id number] 100mg Take 1 [facility] (COLACE) 0-18 capsule by ity o f 100 mg 00:00: mouth 2 [place] capsule 00 (two) Medical times Branch daily as needed for Constipati on. proMETHazin 2021-10 Yes [id number] 25mg Take 1 [facility] 25 mg 0-18 tablet by [facility] of tablet 00:00: mouth at [place] 00 bedtime as Medical needed for Branch Nausea and Vomiting (N/V). 2021-10 Yes [id number] 1{tbl} Take 1 [facility] 0-18 tablet by [facility] ic Acid (B 00:00: mouth [place] COMPLEX 1, 00 daily. Medical WITH FOLIC Branch ACID,) 0.4 mg Tab docusate 2021-10 Yes [id number] 100mg Take 1 [facility] (COLACE) 0-18 capsule by [facility]y o f 100 mg 00:00: mouth 2 [place] capsule 00 (two) Medical times Branch daily as needed for Constipati on. proMETHazin 2021-10 Yes [id number] 25mg Take 1 [facility] 25 mg 0-18 tablet by [facility] of tablet 00:00: mouth at [place] 00 bedtime as Medical needed for Branch Nausea and Vomiting (N/V). B 2021-10 Yes [id number] 1{tbl} Take 1 [facility] 0-18 tablet by [facility] ic Acid (B 00:00: mouth [place] COMPLEX 1, 00 daily. Medical WITH FOLIC Branch ACID,) 0.4 mg Tab docusate 2021-10 Yes [id number] 100mg Take 1 [facility] (COLACE) 0-18 capsule by ity o f 100 mg 00:00: mouth 2 [place] capsule 00 (two) Medical times Branch daily as needed for Constipati on. proMETHazin 2021-10 Yes [id number] 25mg Take 1 [facility] 25 mg 0-18 tablet by [facility] of tablet 00:00: mouth at [place] 00 bedtime as Medical needed for Branch Nausea and Vomiting (N/V). B 2021-10 Yes [id number] 1{tbl} Take 1 [facility] 0-18 tablet by [facility] of ic Acid (B 00:00: mouth [place] COMPLEX 1, 00 daily. Medical WITH FOLIC Branch ACID,) 0.4 mg Tab docusate 2021-10 Yes [id number] 100mg Take 1 [facility] (COLACE) 0-18 capsule by [facility]y o f 100 mg 00:00: mouth 2 [place] capsule 00 (two) Medical times Branch daily as needed for Constipati on. proMETHazin 2021-10 Yes [id number] 25mg Take 1 [facility] 25 mg 0-18 tablet by [facility] of tablet 00:00: mouth at [place] 00 bedtime as Medical needed for Branch Nausea and Vomiting (N/V). 2021-10 Yes [id number] 1{tbl} Take 1 [facility] 0-18 tablet by [facility] ic Acid (B 00:00: mouth [place] COMPLEX 1, 00 daily. Medical WITH FOLIC Branch ACID,) 0.4 mg Tab docusate 2021-10 Yes [id number] 100mg Take 1 [facility] (COLACE) 0-18 capsule by [facility]y o f 100 mg 00:00: mouth 2 [place] capsule 00 (two) Medical times Branch daily as needed for Constipati on. proMETHazin 2021-10 Yes [id number] 25mg Take 1 [facility] 25 mg 0-18 tablet by [facility] of tablet 00:00: mouth at [place] 00 bedtime as Medical needed for Branch Nausea and Vomiting (N/V). B 2021-10 Yes [id number] 1{tbl} Take 1 [facility] 0-18 tablet by [facility] of ic Acid (B 00:00: mouth [place] COMPLEX 1, 00 daily. Medical WITH FOLIC Branch ACID,) 0.4 mg Tab docusate 2021-10 Yes [id number] 100mg Take 1 [facility] (COLACE) 0-18 capsule by [facility] o f 100 mg 00:00: mouth 2 [place] capsule 00 (two) Medical times Branch daily as needed for Constipati on. proMETHazin 2021-10 Yes [id number] 25mg Take 1 [facility] 25 mg 0-18 tablet by [facility] of tablet 00:00: mouth at [place] 00 bedtime as Medical needed for Branch Nausea and Vomiting (N/V). B 2021-10 Yes [id number] 1{tbl} Take 1 [facility] 0-18 tablet by [facility] of ic Acid (B 00:00: mouth [place] COMPLEX 1, 00 daily. Medical WITH FOLIC Branch ACID,) 0.4 mg Tab docusate 2021-10 Yes [id number] 100mg Take 1 [facility] (COLACE) 0-18 capsule by [facility] o f 100 mg 00:00: mouth 2 [place] capsule 00 (two) Medical times Branch daily as needed for Constipati on. proMETHazin 2021-10 Yes [id number] 25mg Take 1 [facility] 25 mg 0-18 tablet by [facility] of tablet 00:00: mouth at [place] 00 bedtime as Medical needed for Branch Nausea and Vomiting (N/V). B 2021-10 Yes [id number] 1{tbl} Take 1 [facility] 0-18 tablet by [facility] of ic Acid (B 00:00: mouth [place] COMPLEX 1, 00 daily. Medical WITH FOLIC Branch ACID,) 0.4 mg Tab docusate 2021-10 Yes [id number] 100mg Take 1 [facility] (COLACE) 0-18 capsule by ity o f 100 mg 00:00: mouth 2 [place] capsule 00 (two) Medical times Branch daily as needed for Constipati on. proMETHazin 2021-10 Yes [id number] 25mg Take 1 [facility] 25 mg 0-18 tablet by [facility] of tablet 00:00: mouth at [place] 00 bedtime as Medical needed for Branch Nausea and Vomiting (N/V). B 2021-10 Yes [id number] 1{tbl} Take 1 [facility] 0-18 tablet by [facility] of ic Acid (B 00:00: mouth [place] COMPLEX 1, 00 daily. Medical WITH FOLIC Branch ACID,) 0.4 mg Tab docusate 2021-10 Yes [id number] 100mg Take 1 [facility] (COLACE) 0-18 capsule by [facility] o f 100 mg 00:00: mouth 2 [place] capsule 00 (two) Medical times Branch daily as needed for Constipati on. proMETHazin 2021-10 Yes [id number] 25mg Take 1 [facility] 25 mg 0-18 tablet by [facility] of tablet 00:00: mouth at [place] 00 bedtime as Medical needed for Branch Nausea and Vomiting (N/V). 2021-10 Yes [id number] 1{tbl} Take 1 [facility] 0-18 tablet by [facility] of ic Acid (B 00:00: mouth [place] COMPLEX 1, 00 daily. Medical WITH FOLIC Branch ACID,) 0.4 mg Tab proMETHazin 2021-10 Yes [id number] 25mg Take 1 [facility] 25 mg 0-18 tablet by [facility] of tablet 00:00: mouth at [place] 00 bedtime as Medical needed for Branch Nausea and Vomiting (N/V). B 2021-10 Yes [id number] 1{tbl} Take 1 [facility] 0-18 tablet by [facility] of ic Acid (B 00:00: mouth [place] COMPLEX 1, 00 daily. Medical WITH FOLIC Branch ACID,) 0.4 mg Tab proMETHazin 2021-10 Yes [id number] 25mg Take 1 [facility] 25 mg 0-18 tablet by [facility] of tablet 00:00: mouth at [place] 00 bedtime as Medical needed for Branch Nausea and Vomiting (N/V). 2021-10 Yes [id number] 1{tbl} Take 1 [facility] 0-18 tablet by [facility] of ic Acid (B 00:00: mouth [place] COMPLEX 1, 00 daily. Medical WITH FOLIC Branch ACID,) 0.4 mg Tab proMETHazin 2021-10 Yes [id number] 25mg Take 1 [facility] 25 mg 0-18 tablet by [facility] of tablet 00:00: mouth at [place] 00 bedtime as Medical needed for Branch Nausea and Vomiting (N/V). 2021-10 Yes [id number] 1{tbl} Take 1 [facility] 0-18 tablet by [facility] of ic Acid (B 00:00: mouth [place] COMPLEX 1, 00 daily. Medical WITH FOLIC Branch ACID,) 0.4 mg Tab proMETHazin 2021-10 Yes [id number] 25mg Take 1 [facility] 25 mg 0-18 tablet by [facility] of tablet 00:00: mouth at [place] 00 bedtime as Medical needed for Branch Nausea and Vomiting (N/V). 2021-10 Yes [id number] 1{tbl} Take 1 [facility] 0-18 tablet by [facility] of ic Acid (B 00:00: mouth [place] COMPLEX 1, 00 daily. Medical WITH FOLIC Branch ACID,) 0.4 mg Tab proMETHazin 2021-10 Yes [id number] 25mg Take 1 [facility] 25 mg 0-18 tablet by [facility] of tablet 00:00: mouth at [place] 00 bedtime as Medical needed for Branch Nausea and Vomiting (N/V). 2021-10 Yes [id number] 1{tbl} Take 1 [facility] 0-18 tablet by [facility] of ic Acid (B 00:00: mouth [place] COMPLEX 1, 00 daily. Medical WITH FOLIC Branch ACID,) 0.4 mg Tab proMETHazin 2021-10 Yes [id number] 25mg Take 1 [facility] 25 mg 0-18 tablet by [facility] of tablet 00:00: mouth at [place] 00 bedtime as Medical needed for Branch Nausea and Vomiting (N/V). 2021-10 Yes [id number] 1{tbl} Take 1 [facility] 0-18 tablet by [facility] of ic Acid (B 00:00: mouth [place] COMPLEX 1, 00 daily. Medical WITH FOLIC Branch ACID,) 0.4 mg Tab proMETHazin 2021-10 Yes [id number] 25mg Take 1 [facility] 25 mg 0-18 tablet by [facility] of tablet 00:00: mouth at [place] 00 bedtime as Medical needed for Branch Nausea and Vomiting (N/V). 2021-10 Yes [id number] 1{tbl} Take 1 [facility] 0-18 tablet by [facility] of ic Acid (B 00:00: mouth [place] COMPLEX 1, 00 daily. Medical WITH FOLIC Branch ACID,) 0.4 mg Tab proMETHazin 2021-10 Yes [id number] 25mg Take 1 [facility] 25 mg 0-18 tablet by [facility] of tablet 00:00: mouth at [place] 00 bedtime as Medical needed for Branch Nausea and Vomiting (N/V). 2021-10 Yes [id number] 1{tbl} Take 1 [facility] 0-18 tablet by [facility] of ic Acid (B 00:00: mouth [place] COMPLEX 1, 00 daily. Medical WITH FOLIC Branch ACID,) 0.4 mg Tab proMETHazin 2021-10 Yes [id number] 25mg Take 1 [facility] 25 mg 0-18 tablet by [facility] of tablet 00:00: mouth at [place] 00 bedtime as Medical needed for Branch Nausea and Vomiting (N/V). 2021-10 Yes [id number] 1{tbl} Take 1 [facility] 0-18 tablet by [facility] of ic Acid (B 00:00: mouth [place] COMPLEX 1, 00 daily. Medical WITH FOLIC Branch ACID,) 0.4 mg Tab proMETHazin 2021-10 Yes [id number] 25mg Take 1 [facility] 25 mg 0-18 tablet by [facility] of tablet 00:00: mouth at [place] 00 bedtime as Medical needed for Branch Nausea and Vomiting (N/V). 2021-10 Yes [id number] 1{tbl} Take 1 [facility] 0-18 tablet by [facility] of ic Acid (B 00:00: mouth [place] COMPLEX 1, 00 daily. Medical WITH FOLIC Branch ACID,) 0.4 mg Tab proMETHazin 2021-10 Yes [id number] 25mg Take 1 [facility] 25 mg 0-18 tablet by [facility] of tablet 00:00: mouth at [place] 00 bedtime as Medical needed for Branch Nausea and Vomiting (N/V). 2021-10 Yes [id number] 1{tbl} Take 1 [facility] 0-18 tablet by [facility] of ic Acid (B 00:00: mouth [place] COMPLEX 1, 00 daily. Medical WITH FOLIC Branch ACID,) 0.4 mg Tab proMETHazin 2021-10 Yes [id number] 25mg Take 1 [facility] 25 mg 0-18 tablet by [facility] of tablet 00:00: mouth at [place] 00 bedtime as Medical needed for Branch Nausea and Vomiting (N/V). 2021-10 Yes [id number] 1{tbl} Take 1 [facility] 0-18 tablet by [facility] of ic Acid (B 00:00: mouth [place] COMPLEX 1, 00 daily. Medical WITH FOLIC Branch ACID,) 0.4 mg Tab proMETHazin 2021-10 Yes [id number] 25mg Take 1 [facility] 25 mg 0-18 tablet by [facility] of tablet 00:00: mouth at [place] 00 bedtime as Medical needed for Branch Nausea and Vomiting (N/V). 2021-10 Yes [id number] 1{tbl} Take 1 [facility] 0-18 tablet by [facility] of ic Acid (B 00:00: mouth [place] COMPLEX 1, 00 daily. Medical WITH FOLIC Branch ACID,) 0.4 mg Tab proMETHazin 2021-10 Yes [id number] 25mg Take 1 [facility] 25 mg 0-18 tablet by [facility] of tablet 00:00: mouth at [place] 00 bedtime as Medical needed for Branch Nausea and Vomiting (N/V). 2021-10 Yes [id number] 1{tbl} Take 1 [facility] 0-18 tablet by [facility] of ic Acid (B 00:00: mouth [place] COMPLEX 1, 00 daily. Medical WITH FOLIC Branch ACID,) 0.4 mg Tab proMETHazin 2021-10 Yes [id number] 25mg Take 1 [facility] 25 mg 0-18 tablet by [facility] of tablet 00:00: mouth at [place] 00 bedtime as Medical needed for Branch Nausea and Vomiting (N/V). 2021-10 Yes [id number] 1{tbl} Take 1 [facility] 0-18 tablet by [facility] of ic Acid (B 00:00: mouth [place] COMPLEX 1, 00 daily. Medical WITH FOLIC Branch ACID,) 0.4 mg Tab proMETHazin 2021-10 Yes [id number] 25mg Take 1 [facility] 25 mg 0-18 tablet by [facility] of tablet 00:00: mouth at [place] 00 bedtime as Medical needed for Branch Nausea and Vomiting (N/V). B 2021-10 Yes [id number] 1{tbl} Take 1 [facility] 0-18 tablet by [facility] of ic Acid (B 00:00: mouth [place] COMPLEX 1, 00 daily. Medical WITH FOLIC Branch ACID,) 0.4 mg Tab proMETHazin 2021-10 Yes [id number] 25mg Take 1 [facility] 25 mg 0-18 tablet by [facility] of tablet 00:00: mouth at [place] 00 bedtime as Medical needed for Branch Nausea and Vomiting (N/V). 2021-10 Yes [id number] 1{tbl} Take 1 [facility] 0-18 tablet by [facility] of ic Acid (B 00:00: mouth [place] COMPLEX 1, 00 daily. Medical WITH FOLIC Branch ACID,) 0.4 mg Tab proMETHazin 2021-10 Yes [id number] 25mg Take 1 [facility] 25 mg 0-18 tablet by [facility] of tablet 00:00: mouth at [place] 00 bedtime as Medical needed for Branch Nausea and Vomiting (N/V). 2021-10 Yes [id number] 1{tbl} Take 1 [facility] 0-18 tablet by [facility] ic Acid (B 00:00: mouth [place] COMPLEX 1, 00 daily. Medical WITH FOLIC Branch ACID,) 0.4 mg Tab proMETHazin 2021-10 Yes [id number] 25mg Take 1 [facility] 25 mg 0-18 tablet by [facility] of tablet 00:00: mouth at [place] 00 bedtime as Medical needed for Branch Nausea and Vomiting (N/V). 2021-10 Yes [id number] 1{tbl} Take 1 [facility] 0-18 tablet by [facility] of ic Acid (B 00:00: mouth [place] COMPLEX 1, 00 daily. Medical WITH FOLIC Branch ACID,) 0.4 mg Tab proMETHazin 2021-10 Yes [id number] 25mg Take 1 [facility] 25 mg 0-18 tablet by [facility] of tablet 00:00: mouth at [place] 00 bedtime as Medical needed for Branch Nausea and Vomiting (N/V). 2021-10 Yes [id number] 1{tbl} Take 1 [facility] 0-18 tablet by [facility] of ic Acid (B 00:00: mouth [place] COMPLEX 1, 00 daily. Medical WITH FOLIC Branch ACID,) 0.4 mg Tab proMETHazin 2021-10 Yes [id number] 25mg Take 1 [facility] 25 mg 0-18 tablet by [facility] of tablet 00:00: mouth at [place] 00 bedtime as Medical needed for Branch Nausea and Vomiting (N/V). 2021-10 Yes [id number] 1{tbl} Take 1 [facility] 0-18 tablet by [facility] of ic Acid (B 00:00: mouth [place] COMPLEX 1, 00 daily. Medical WITH FOLIC Branch ACID,) 0.4 mg Tab proMETHazin 2021-10 Yes [id number] 25mg Take 1 [facility] 25 mg 0-18 tablet by [facility] of tablet 00:00: mouth at [place] 00 bedtime as Medical needed for Branch Nausea and Vomiting (N/V). 2021-10 Yes [id number] 1{tbl} Take 1 [facility] 0-18 tablet by [facility] of ic Acid (B 00:00: mouth [place] COMPLEX 1, daily. Medical WITH FOLIC Branch ACID,) 0.4 mg Tab proMETHazin 2021-10 Yes [id number] 25mg Take 1 [facility] 25 mg 0-18 tablet by [facility] of tablet 00:00: mouth at [place] 00 bedtime as Medical needed for Branch Nausea and Vomiting (N/V). 2021-10 Yes [id number] 1{tbl} Take 1 [facility] 0-18 tablet by [facility] of ic Acid (B 00:00: mouth [place] COMPLEX 1, 00 daily. Medical WITH FOLIC Branch ACID,) 0.4 mg Tab proMETHazin 2021-10 Yes [id number] 25mg Take 1 [facility] 25 mg 0-18 tablet by [facility] of tablet 00:00: mouth at [place] 00 bedtime as Medical needed for Branch Nausea and Vomiting (N/V). 2021-10 Yes [id number] 1{tbl} Take 1 [facility] 0-18 tablet by [facility] of ic Acid (B 00:00: mouth [place] COMPLEX 1, 00 daily. Medical WITH FOLIC Branch ACID,) 0.4 mg Tab proMETHazin 2021-10 Yes [id number] 25mg Take 1 [facility] 25 mg 0-18 tablet by [facility] of tablet 00:00: mouth at [place] 00 bedtime as Medical needed for Branch Nausea and Vomiting (N/V). 2021-10 Yes [id number] 1{tbl} Take 1 [facility] 0-18 tablet by [facility] of ic Acid (B 00:00: mouth [place] COMPLEX 1, 00 daily. Medical WITH FOLIC Branch ACID,) 0.4 mg Tab proMETHazin 2021-10 Yes [id number] 25mg Take 1 [facility] 25 mg 0-18 tablet by [facility] of tablet 00:00: mouth at [place] 00 bedtime as Medical needed for Branch Nausea and Vomiting (N/V). 2021-10 Yes [id number] 1{tbl} Take 1 [facility] 0-18 tablet by [facility] of ic Acid (B 00:00: mouth [place] COMPLEX 1, 00 daily. Medical WITH FOLIC Branch ACID,) 0.4 mg Tab proMETHazin 2021-10 Yes [id number] 25mg Take 1 [facility] 25 mg 0-18 tablet by [facility] of tablet 00:00: mouth at [place] 00 bedtime as Medical needed for Branch Nausea and Vomiting (N/V). 2021-10 Yes [id number] 1{tbl} Take 1 [facility] 0-18 tablet by [facility] of ic Acid (B 00:00: mouth [place] COMPLEX 1, 00 daily. Medical WITH FOLIC Branch ACID,) 0.4 mg Tab proMETHazin 2021-10 Yes [id number] 25mg Take 1 [facility] 25 mg 0-18 tablet by [facility] of tablet 00:00: mouth at [place] 00 bedtime as Medical needed for Branch Nausea and Vomiting (N/V). 2021-10 Yes [id number] 1{tbl} Take 1 [facility] 0-18 tablet by [facility] of ic Acid (B 00:00: mouth [place] COMPLEX 1, 00 daily. Medical WITH FOLIC Branch ACID,) 0.4 mg Tab proMETHazin 2021-10 Yes [id number] 25mg Take 1 [facility] 25 mg 0-18 tablet by [facility] of tablet 00:00: mouth at [place] 00 bedtime as Medical needed for Branch Nausea and Vomiting (N/V). 2021-10 Yes [id number] 1{tbl} Take 1 [facility] 0-18 tablet by [facility] of ic Acid (B 00:00: mouth [place] COMPLEX 1, 00 daily. Medical WITH FOLIC Branch ACID,) 0.4 mg Tab proMETHazin 2021-10 Yes [id number] 25mg Take 1 [facility] 25 mg 0-18 tablet by [facility] of tablet 00:00: mouth at [place] 00 bedtime as Medical needed for Branch Nausea and Vomiting (N/V). B 2021-10 Yes [id number] 1{tbl} Take 1 [facility] 0-18 tablet by [facility] of ic Acid (B 00:00: mouth [place] COMPLEX 1, 00 daily. Medical WITH FOLIC Branch ACID,) 0.4 mg Tab proMETHazin 2021-10 Yes [id number] 25mg Take 1 [facility] 25 mg 0-18 tablet by [facility] of tablet 00:00: mouth at [place] 00 bedtime as Medical needed for Branch Nausea and Vomiting (N/V). B 2021-10 Yes [id number] 1{tbl} Take 1 [facility] 0-18 tablet by [facility] of ic Acid (B 00:00: mouth [place] COMPLEX 1, 00 daily. Medical WITH FOLIC Branch ACID,) 0.4 mg Tab proMETHazin 2021-10 Yes [id number] 25mg Take 1 [facility] 25 mg 0-18 tablet by [facility] of tablet 00:00: mouth at [place] 00 bedtime as Medical needed for Branch Nausea and Vomiting (N/V). B 2021-10 Yes [id number] 1{tbl} Take 1 [facility] 0-18 tablet by [facility] of ic Acid (B 00:00: mouth [place] COMPLEX 1, 00 daily. Medical WITH FOLIC Branch ACID,) 0.4 mg Tab proMETHazin 2021-10 Yes [id number] 25mg Take 1 [facility] 25 mg 0-18 tablet by [facility] of tablet 00:00: mouth at [place] 00 bedtime as Medical needed for Branch Nausea and Vomiting (N/V). B 2021-10 Yes [id number] 1{tbl} Take 1 [facility] 0-18 tablet by [facility] of ic Acid (B 00:00: mouth [place] COMPLEX 1, 00 daily. Medical WITH FOLIC Branch ACID,) 0.4 mg Tab docusate 2021-103- No [id number] 100mg Take 1 [facility] (COLACE) 0-18 -27 capsule by [facility] of 100 mg 00:00: 00:00 mouth 2 [place] capsule 00 :00 (two) Medical times Branch daily as needed for Constipati on. gabapentin 2021-10- No [id number] 100mg Take 1 [facility] 100 mg 0-18 11-28 capsule by [facility] of capsule 00:00: 00:00 mouth in [place] 00 :00 the Medical morning Branch and 1 capsule at noon and 1 capsule in the evening. gabapentin 2021-10- No [id number] 100mg Take 1 [facility] 100 mg 0-18 11-28 capsule by [facility] of capsule 00:00: 00:00 mouth in [place] 00 :00 the Medical morning Branch and 1 capsule at noon and 1 capsule in the evening. gabapentin 2021-10- No [id number] 100mg Take 1 [facility] 100 mg 0-18 11-28 capsule by [facility] of capsule 00:00: 00:00 mouth in [place] 00 :00 the Medical morning Branch and 1 capsule at noon and 1 capsule in the evening. carvediloL 2021-10- No [id number] 6.25mg Take 1 [facility] 6.25 mg 0-18 11-18 tablet by [facility] of tablet 00:00: 00:00 mouth in [place] 00 :00 the Medical morning Branch and 1 tablet in the evening. Take with meals. traMADoL 50 2021-10- No [id number] 50mg Take 1 [facility] mg tablet 0-18 11-18 tablet by [facility] of 00:00: 00:00 mouth [place] 00 :00 every 6 Medical (six) Branch hours as needed for Pain (scale 7-10) (Cannot take NSAIDS). Indication s: chronic pain carvediloL 2021-10- No [id number] 6.25mg Take 1 [facility] 6.25 mg 0-18 11-18 tablet by [facility] of tablet 00:00: 00:00 mouth in [place] 00 :00 the Medical morning Branch and 1 tablet in the evening. Take with meals. traMADoL 50 2021-10- No [id number] 50mg Take 1 [facility] mg tablet 0-18 11-18 tablet by [facility] of 00:00: 00:00 mouth [place] 00 :00 every 6 Medical (six) Branch hours as needed for Pain (scale 7-10) (Cannot take NSAIDS). Indication s: chronic pain carvediloL 2021-10- No [id number] 6.25mg Take 1 [facility] 6.25 mg 0-18 11-18 tablet by [facility] of tablet 00:00: 00:00 mouth in [place] 00 :00 the Medical morning Branch and 1 tablet in the evening. Take with meals. traMADoL 50 2021-10 No [id number] 50mg Take 1 [facility] mg tablet 0-18 11-18 tablet by [facility] of 00:00: 00:00 mouth [place] 00 :00 every 6 Medical (six) Branch hours as needed for Pain (scale 7-10) (Cannot take NSAIDS). Indication s: chronic pain carvediloL 2021-10 No [id number] 6.25mg Take 1 [facility] 6.25 mg 0-18 11-18 tablet by [facility] of tablet 00:00: 00:00 mouth in [place] 00 :00 the Medical morning Branch and 1 tablet in the evening. Take with meals. traMADoL 50 2021-10 No [id number] 50mg Take 1 [facility] vers mg tablet 0-18 11-18 tablet by ity of 00:00: 00:00 mouth [place] 00 :00 every 6 Medical (six) Branch hours as needed for Pain (scale 7-10) (Cannot take NSAIDS). Indication s: chronic pain carvediloL 2021-10 No [id number] 6.25mg Take 1 [facility] 6.25 mg 0-18 11-18 tablet by ity of tablet 00:00: 00:00 mouth in [place] 00 :00 the Medical morning Branch and 1 tablet in the evening. Take with meals. traMADoL 50 2021-10 No 2745 50mg Take 1 [facility] vers mg tablet 0-18 11-18 tablet by ity of 00:00: 00:00 mouth [place] 00 :00 every 6 Medical (six) Branch hours as needed for Pain (scale 7-10) (Cannot take NSAIDS). Indication s: chronic pain milk 2021- No 150mg QD Take [address] [facility] 175 9-28 09-28 mg by [facility] tablet 14:40: 00:00 mouth Medica l 16 :00 daily . Center milk 2021- No 150mg QD Take [address] [facility] thistle 175 9-28 09-28 mg by [facility] tablet 14:40: 00:00 mouth Medica l 16 :00 daily . Center milk 2021- No 150mg QD Take [address] [facility]istle 175 9-28 09-28 mg by [facility] tablet 14:40: 00:00 mouth Medica l 16 :00 daily . [place] milk 2021- No 150mg QD Take [address] [facility]istle 175 9-28 09-28 mg by [facility] tablet 14:40: 00:00 mouth Medica l 16 :00 daily . [place] milk 2021- No 150mg QD Take [address] [facility] 175 9-28 09-28 mg by [facility] tablet 14:40: 00:00 mouth Medica l 16 :00 daily . [place] milk 2021- No 150mg QD Take [address] [facility] 175 9-28 09-28 mg by [facility] tablet 14:40: 00:00 mouth Medica l 16 :00 daily . [facility] 2021- No 150mg QD Take [address] [facility] [address] [facility] 175 9-28 09-28 mg by [facility] tablet 14:40: 00:00 mouth Medica l 16 :00 daily . [place] milk 2021- No 150mg QD Take [address] [facility] 175 9-28 09-28 mg by [facility] tablet 14:40: 00:00 mouth Medica l 16 :00 daily . [place] milk 2021- No 150mg QD Take [address] [facility] 175 9-28 09-28 mg by [facility] tablet 14:40: 00:00 mouth Medica l 16 :00 daily . [place] milk 2021- No 150mg QD Take [address] [facility] 175 9-28 09-28 mg by [facility] tablet 14:40: 00:00 mouth Medica l 16 :00 daily . [place] milk 2021- No 150mg QD Take [address] [facility] 175 9-28 09-28 mg by [facility] tablet 14:40: 00:00 mouth Medica l 16 :00 daily . [place] telmisartan 2021- No 1{tbl} QD Take [address] -hydrochlor -17 07-27 tablet by Dayana kes othiazide 15:36: 00:00 mouth Medica l (MICARDIS 29 :00 daily. [place] HCT) 80-25 mg per tablet telmisartan 2021- No 1{tbl} QD Take [address] -hydrochlor -07-17 tablet by Dayana vaughns othiazide 15:36: 00:00 mouth Medica l (MICARDIS 29 :00 daily. Center HCT) 80-25 mg per tablet telmisartan 2021- No 1{tbl} QD Take [address] -hydrochlor -07-17 tablet by Dayana vaughns othiazide 15:36: 00:00 mouth Medica l (MICARDIS 29 :00 daily. Center HCT) 80-25 mg per tablet telmisartan 2021- No 1{tbl} QD Take [address] -hydrochlor 07-17 tablet by Dayana vaughns othiazide 15:36: 00:00 mouth Medica l (MICARDIS 29 :00 daily. Center HCT) 80-25 mg per tablet telmisartan 2021- No 1{tbl} QD Take [address] -hydrochlor 07-17 tablet by Dayana nicole othiazide 15:36: 00:00 mouth Medica l (MICARDIS 29 :00 daily. Center HCT) 80-25 mg per tablet telmisartan 2021- No 1{tbl} QD Take [address] -hydrochlor 07-17 tablet by Dayana nicole othiazide 15:36: 00:00 mouth Medica l (MICARDIS 29 :00 daily. Center HCT) 80-25 mg per tablet telmisartan 2021- No 1{tbl} QD Take [address] -hydrochlor 07-17 tablet by Dayana vaughns othiazide 15:36: 00:00 mouth Medica l (MICARDIS 29 :00 daily. Center HCT) 80-25 mg per tablet telmisartan 2021- No 1{tbl} QD Take [address] -hydrochlor 07-17 tablet by Dayana kes othiazide 15:36: 00:00 mouth Medica l (MICARDIS 29 :00 daily. Center HCT) 80-25 mg per tablet telmisartan 2021- No 1{tbl} QD Take [address] -hydrochlor -17 07- tablet by Dayana kes othiazide 15:36: 00:00 mouth Medica l (MICARDIS 29 :00 daily. Center HCT) 80-25 mg per tablet telmisartan 2021-2021- No 1{tbl} QD Take [address] -hydrochlor -17 07- tablet by Dayana kes othiazide 15:36: 00:00 mouth Medica l (MICARDIS 29 :00 daily. Center HCT) 80-25 mg per tablet telmisartan 2021- No 1{tbl} QD Take [address] -hydrochlor -17 07- tablet by Dayana kes othiazide 15:36: 00:00 mouth Medica l (MICARDIS 29 :00 daily. Center HCT) 80-25 mg per tablet haloperidoL 2021-0 2- No .5mg Q.5D Take 0.[address] (HALDOL) 9- 09-27 mg by [facility] 0.5 MG 15:06: 00:00 mouth 2 Medical tablet 28 :00 (two) Center times daily. haloperidoL 2021-0 2022- No .5mg Q.5D Take 0.[address] (HALDOL) 9- 09-27 mg by [facility] 0.5 MG 15:06: 00:00 mouth 2 Medical tablet 28 :00 (two) Center times daily. haloperidoL 2021-0 2022- No .5mg Q.5D Take 0.[address] (HALDOL) 9- 09-27 mg by [facility] 0.5 MG 15:06: 00:00 mouth 2 Medical tablet 28 :00 (two) Center times daily. haloperidoL 2021-0 2022- No .5mg Q.5D Take 0.[address] (HALDOL) 9-27 09-27 mg by [facility] 0.5 MG 15:06: 00:00 mouth 2 Medical tablet 28 :00 (two) Center times daily. haloperidoL 2-0 2022- No .5mg Q.5D Take 0.[address] (HALDOL) 9-27 09-27 mg by [facility] 0.5 MG 15:06: 00:00 mouth 2 Medical tablet 28 :00 (two) Center times daily. haloperidoL 2-0 2022- No .5mg Q.5D Take 0.[address] (HALDOL) 9-27 09-27 mg by [facility] 0.5 MG 15:06: 00:00 mouth 2 Medical tablet 28 :00 (two) Center times daily. haloperidoL 2022-0 2022- No .5mg Q.5D Take 0.[address] (HALDOL) 9-27 09-27 mg by [facility] 0.5 MG 15:06: 00:00 mouth 2 Medical tablet 28 :00 (two) Center times daily. haloperidoL 2022-0 2022- No .5mg Q.5D Take 0.[address] (HALDOL) 9-27 09-27 mg by [facility] 0.5 MG 15:06: 00:00 mouth 2 Medical tablet 28 :00 (two) Center times daily. haloperidoL 2022-0 2022- No .5mg Q.5D Take 0.[address] (HALDOL) 9- 09-27 mg by [facility] 0.5 MG 15:06: 00:00 mouth 2 Medical tablet 28 :00 (two) Center times daily. haloperidoL 2022-0 2022- No .5mg Q.5D Take 0.[address] (HALDOL) 9- 09-27 mg by [facility] 0.5 MG 15:06: 00:00 mouth 2 Medical tablet 28 :00 (two) Center times daily. haloperidoL 2022-0 2022- No .5mg Q.5D Take 0.[address] (HALDOL) 9- 09-27 mg by [facility] 0.5 MG 15:06: 00:00 mouth 2 Medical tablet 28 :00 (two) Center times daily. metoclopram 2022-0 Yes 10mg Take [address] [facility] miracle HCl 07-17 by mouth 4 [facility] (REGLAN) 10 14:28: (four) Medi vidal MG tablet 31 times Center daily as needed for Nausea. omeprazole 2022-0 Yes 20mg Q.5D Take [address] [facility] (PriLOSEC) - by mouth 2 [place] [facility] 20 MG 14:28: (two) Medical capsule 02 times Center daily. meclizine 2022-0 Yes 25mg Take [address] [facility] [address] [facility] (ANTIVERT) - by mouth 3 [place] [facility] 25 MG 14:28: (three) Medical tablet 02 times Center daily as needed for Dizziness. rosuvastati 0 Yes 20mg QD Take [address] [facility] (CRESTOR) - by mouth [facility] 20 MG 14:28: daily. Medical tablet 02 Center doxepin 0 Yes 10mg QD Take [address] [facility] (SINEquan) - by mouth [facility] 10 MG 14:28: nightly. Medical capsule 02 Center gabapentin 0 Yes 100mg Q.35103209 Take [address] [facility] (NEURONTIN) 07-17 [id number] mg by L ukes 100 MG 14:28: [...] by Cente r mouth every other day. ferrous 2021-0 Yes 325mg Take 1 [facility] [...] Cente r mouth every other day. lactulose 0 Yes Hepatic 20g Q.86910645 Take [address] [facility] (CHRONULAC) - encephalopa [id number] mLs (20 g [facility] 10 gram/15 00:00: [...] other day. lactulose 2021-0 Yes Hepatic 20g Q.82036170 Take [address] [facility] (CHRONULAC) 9-27 encephalopa [id number] mLs (20 g [facility] 10 gram/15 00:00: thy 3D total) by Sc dical mL solution 00 mouth 3 Cente r (three) times daily. ferrous 2021-0 Yes 325mg Take [address] [facility] sulfate 325 9-27 tablet [facility] (65 FE) MG 00:00: (325 mg Medi vidal EC tablet 00 total) by Cente r mouth every other day. ferrous 2021-0 Yes 325mg Take [address] [facility] sulfate 325 9-27 tablet [facility] (65 FE) MG 00:00: (325 mg Medi vidal EC tablet 00 total) by Cente r mouth every other day. ferrous 2021-0 Yes 325mg Take [address] [facility] sulfate 325 9-27 tablet [facility] (65 FE) MG 00:00: (325 mg Medi vidal EC tablet 00 total) by Cente r mouth every other day. ferrous 2021-0 Yes 325mg Take [address] [facility] sulfate 325 9-27 tablet [facility] (65 FE) MG 00:00: (325 mg Medi vidal EC tablet 00 total) by Cente r mouth every other day. ferrous 2021-0 Yes 325mg Take [address] [facility] sulfate 325 9-27 tablet [facility] (65 FE) MG 00:00: (325 mg Medi vidal EC tablet 00 total) by Cente r mouth every other day. ferrous 2021-0 Yes 325mg Take [address] [facility] sulfate 325 9-27 tablet [facility] (65 FE) MG 00:00: (325 mg Medi vidal EC tablet 00 total) by Cente r mouth every other day. ferrous 2021-0 Yes 325mg Take [address] [facility] sulfate 325 9-27 tablet [facility] (65 FE) MG 00:00: (325 mg Medi vidal EC tablet 00 total) by Cente r mouth every other day. lactulose 2021-0 2023- No Hepatic 20g Q.84831519 Take [address] [facility] (CHRONULAC) 9-27 01-09 encephalopa [id number] mLs (20 g [facility] 10 gram/15 00:00: 00:00 thy (HCC) 3D total) by Medical mL solution 00 :00 mouth 3 Cente r (three) times daily. lactulose 2022- No Hepatic 20g Q.84959754 Take [address] [facility] (CHRONULAC) 07-17 encephalopa [id number] mLs (20 g [facility] 10 gram/15 00:00: 00:00 thy 3D total) by M edical mL solution 00 :00 mouth 3 Cente r (three) times daily. lactulose 2022- No Hepatic 20g Q.94739896 Take [address] [facility] (CHRONULAC) 07-17 encephalopa [id number] mLs (20 g [facility] 10 gram/15 00:00: 00:00 thy 3D total) by M edical mL solution 00 :00 mouth 3 Cente r (three) times daily. lactulose 2022- No Hepatic 20g Q.90744384 Take [address] [facility] (CHRONULAC) 07-17 encephalopa [id number] mLs (20 g [facility] 10 gram/15 00:00: 00:00 thy 3D total) by M edical mL solution 00 :00 mouth 3 Cente r (three) times daily. lactulose 2022- No Hepatic 20g Q.80349993 Take [address] [facility] [address] (CHRONULAC) 07-17 encephalopa 8420693916 mLs (20 g [facility] 10 gram/15 00:00: 00:00 thy 3D total) by M edical mL solution 00 :00 mouth 3 Cente r (three) times daily. lactulose 2022- No Hepatic 20g Q.88134698 Take [address] [facility] (CHRONULAC) 07-17 encephalopa [id number] mLs (20 g [facility] 10 gram/15 00:00: 00:00 thy 3D total) by M edical mL solution 00 :00 mouth 3 Cente r (three) times daily. lactulose 2022- No Hepatic 20g Q.71755780 Take [address] [facility] (CHRONULAC) 07-17 encephalopa [id number] mLs (20 g [facility] 10 gram/15 00:00: 00:00 thy 3D total) by M edical mL solution 00 :00 mouth 3 Cente r (three) times daily. lactulose 2021-2022- No Hepatic 20g Q.48496954 Take [address] [facility] (CHRONULAC) 07-17 encephalopa [id number] mLs (20 g [facility] 10 gram/15 00:00: 00:00 thy 3D total) by M edical mL solution 00 :00 mouth 3 Cente r (three) times daily. lactulose 2022- No Hepatic 20g Q.95293500 Take [address] [facility] (CHRONULAC) 07-17 encephalopa [id number] mLs (20 g [facility] 10 gram/15 00:00: 00:00 thy 3D total) by M edical mL solution 00 :00 mouth 3 Cente r (three) times daily. hydrOXYzine 2021-2022- No 25mg Take [address] [facility] (ATARAX) 25 07-17 tablet (25 L ukes MG tablet 00:00: 00:00 mg total) Me dical 00 :00 by mouth Center as needed. hydrOXYzine 2021-2022- No 25mg Take [address] [facility] (ATARAX) 25 07-17 tablet (25 L [facility] MG tablet 00:00: 00:00 mg total) Me dical 00 :00 by mouth Center as needed. hydrOXYzine 2022- No 25mg Take [address] [facility] (ATARAX) 25 07-17 tablet (25 L [facility]kes MG tablet 00:00: 00:00 mg total) Me dical 00 :00 by mouth Center as needed. hydrOXYzine 2021-2022- No 25mg Take [address] [facility] (ATARAX) 25 07-17- tablet (25 L [facility] MG tablet 00:00: 00:00 mg total) Me dical 00 :00 by mouth Center as needed. hydrOXYzine 2021-2022- No 25mg Take [address] [facility] (ATARAX) 25 07-17- tablet (25 L [facility] MG tablet 00:00: 00:00 mg total) Me dical 00 :00 by mouth Center as needed. hydrOXYzine 2022- No 25mg Take [address] [facility] (ATARAX) 25 07-17- tablet (25 L [facility] MG tablet 00:00: 00:00 mg total) Me dical 00 :00 by mouth Center as needed. hydrOXYzine 2022- No 25mg Take [address] [facility] (ATARAX) 25 07-17- tablet (25 L [facility] MG tablet 00:00: 00:00 mg total) Me dical 00 :00 by mouth Center as needed. hydrOXYzine 2022- No 25mg Take [address] [facility] (ATARAX) 25 07-17- tablet (25 L [facility] MG tablet 00:00: 00:00 mg total) Me dical 00 :00 by mouth Center as needed. hydrOXYzine 2022- No 25mg Take [address] [facility] (ATARAX) 25 07-17- tablet (25 L [facility] MG tablet 00:00: 00:00 mg total) Me dical 00 :00 by mouth Center as needed. telmisartan Yes [id number] 1{tbl} Take 1 [facility] -hydrochlor 9-26 tablet by ity of othiazide 00:[place]: [place] mg 00 the Medical per tablet morning. [facility] telmisartan Yes [id number] 1{tbl} Take 1 [facility] -hydrochlor 9-26 tablet by ity of othiazide 00:[place]: [place] 80[place] mg 00 the Medical per tablet morning. [facility] telmisartan Yes [id number] 1{tbl} Take 1 [facility] -hydrochlor 9-26 tablet by ity of othiazide 00:00: [place] 80[place] mg 00 the Medical per tablet morning. [facility] telmisartan Yes [id number] 1{tbl} Take 1 [facility] -hydrochlor 9-26 tablet by ity of othiazide 00:00: [place] 80[place] mg 00 the Medical per tablet morning. [facility] telmisartan Yes [id number] 1{tbl} Take 1 [facility] -hydrochlor 9-26 tablet by ity of othiazide 00:00: [place] 80[place] mg 00 the Medical per tablet morning. [facility] telmisartan Yes [id number] 1{tbl} Take 1 [facility] -hydrochlor 9-26 tablet by ity of othiazide 00:00: [place] 80[place] mg 00 the Medical per tablet morning. [facility] telmisartan 2021- No [id number] 1{tbl} Take 1 [facility] -hydrochlor 9-26 10-18 tablet by it y of othiazide 00:00: 00:00 mouth in [place] 80-25 mg 00 :00 the Medical per tablet morning. [facility] telmisartan 2021- No [id number] 1{tbl} Take 1 [facility] -hydrochlor 9-26 10-18 tablet by it y of othiazide 00:00: 00:00 mouth in [place] 80-25 mg 00 :00 the Medical per tablet morning. [facility] thiamine 2022- No 100mg QD Take 1 [facility] -03 07-13 tablet [facility] tablet 00:00: 23:59 (100 mg Medical 00 :00 total) by Center mouth daily. thiamine 3- No 100mg QD Take 1 [facility] MG -13 -13 tablet [facility] tablet 00:00: 23:59 (100 mg Medical 00 :00 total) by Center mouth daily. thiamine 2021-2022- No 100mg QD Take 1 [facility] MG -03 07-13 tablet [facility] tablet 00:00: 23:59 (100 mg Medical 00 :00 total) by Center mouth daily. thiamine 2021-0 2023- No 100mg QD Take 1 [facility] 100 MG 9-13 -13 tablet [facility] tablet 00:00: 23:59 (100 mg Medical 00 :00 total) by Center mouth daily. thiamine 2021-0 2023- No 100mg QD Take 1 [facility] MG 9-13 -13 tablet [facility] tablet 00:00: 23:59 (100 mg Medical 00 :00 total) by Center mouth daily. thiamine 2021-0 2023- No 100mg QD Take 1 [facility] MG 9-13 -13 tablet [facility] tablet 00:00: 23:59 (100 mg Medical 00 :00 total) by Center mouth daily. thiamine 2021-0 2022- No 100mg QD Take 1 [facility] MG -03 07- tablet [facility] tablet 00:00: 23:59 (100 mg Medical 00 :00 total) by Center mouth daily. thiamine 2021-0 2022- No 100mg QD Take 1 [facility] MG -07-03 tablet [facility] tablet 00:00: 23:59 (100 mg Medical 00 :00 total) by Center mouth daily. thiamine 2021-0 2022- No 100mg QD Take 1 [facility] MG -07-03 tablet [facility] tablet 00:00: 23:59 (100 mg Medical 00 :00 total) by Center mouth daily. thiamine 2021-0 2022- No 100mg QD Take 1 [facility] MG -07-03 tablet [facility] tablet 00:00: 23:59 (100 mg Medical 00 :00 total) by Center mouth daily. thiamine 2021-2022- No 100mg QD Take 1 [facility] MG -07-03 tablet [facility] tablet 00:00: 23:59 (100 mg Medical 00 :00 total) by Center mouth daily. thiamine 2021-0 2022- No 100mg QD Take 1 [facility] MG -07-03 tablet [facility] tablet 00:00: 23:59 (100 mg Medical 00 :00 total) by Center mouth daily. multivitami 2021-2021- No 1{tbl} QD Take [address] [facility] (FOLTX, 07-03-13 tablet by [facility]) 00:00: 23:59 mouth Medical 2-. 00 :00 daily for Cente r mg Tab 30 days. tablet multivitami 2021-2021- No 1{tbl} QD Take [address] [facility] (FOLTX, 9- 10-13 tablet by [facility]) 00:00: 23:59 mouth Medical 2-1.25 00 :00 daily for Cente r mg Tab 30 days. tablet multivitami 2021- No 1{tbl} QD Take [address] [facility] (FOLTX, 07-03 10-13 tablet by [facility]) 00:00: 23:59 mouth Medical 2-1.13- 00 :00 daily for Cente r mg Tab 30 days. tablet multivitami 2021- No 1{tbl} QD Take [address] [facility] (FOLTX, 9-13 10-13 tablet by [facility]) 00:00: 23:59 mouth Medical 2-1.13- 00 :00 daily for Cente r mg Tab 30 days. tablet multivitami 2021- No 1{tbl} QD Take [address] [facility] (FOLTX, 9-13 10-13 tablet by [facility]) 00:00: 23:59 mouth Medical 2-. 00 :00 daily for Cente r mg Tab 30 days. tablet multivitami 2021- No 1{tbl} QD Take [address] [facility] (FOLTX, 9-13 10-13 tablet by [facility]) 00:00: 23:59 mouth Medical 2-.13- 00 :00 daily for Cente r mg Tab 30 days. tablet multivitami 2021- No 1{tbl} QD Take [address] [facility] (FOLTX, 9-13 10-13 tablet by [facility]) 00:00: 23:59 mouth Medical 2-1.13 00 :00 daily for Cente r mg Tab 30 days. tablet multivitami 2021- No 1{tbl} QD Take [address] [facility] (FOLTX, 9-13 10-13 tablet by [facility]) 00:00: 23:59 mouth Medical 2-1.13-25 00 :00 daily for Cente r mg Tab 30 days. tablet multivitami 2021- No 1{tbl} QD Take [address] [facility] (FOLTX, 9-13 10-13 tablet by [facility]) 00:00: 23:59 mouth Medical 2-1.1325 00 :00 daily for Cente r mg Tab 30 days. tablet multivitami 2021- No 1{tbl} QD Take [address] [facility] (FOLTX, 9-13 10-13 tablet by [facility]) 00:00: 23:59 mouth Medical 2-1. 00 :00 daily for Cente r mg Tab 30 days. tablet multivitami 2021- No 1{tbl} QD Take [address] [facility] (FOLTX, 9- 10-13 tablet by [facility]) 00:00: 23:59 mouth Medical 2-1. 00 :00 daily for Cente r mg Tab 30 days. tablet multivitami 2021- No 1{tbl} QD Take [address] [facility] (FOLTX, 07-03 10- tablet by [facility]) 00:00: 23:59 mouth Medical 2-1. 00 :00 [...] 80-25 mg per tablet gabapentin Yes 100mg Q.[id number] Take [address] [facility] (NEURONTIN) 9-12 [id number] mg by L ukes 100 MG 13:14: [...] Center mouth 2 (two) times daily. carvediloL 2021-2022- No 6.25mg Q.5D Take [address] [facility] [address] [facility] (COREG) 07-02 tablet [facility] 6.25 MG 00:00: 23:59 (6.25 mg Medic al tablet 00 :00 total) by Center mouth 2 (two) times daily. carvediloL 2021-2022- No 6.25mg Q.5D Take [address] (COREG) 07-02 tablet [facility] 6.25 MG 00:00: 23:59 (6.25 mg Medic al tablet 00 :00 total) by Center mouth 2 (two) times daily. carvediloL 2021-2022- No 6.25mg Q.5D Take 1 [facility] [...] Center mouth 2 (two) times daily. pantoprazol 2021-0 2021- No 40mg Q.5D Take [...] (two) times daily for 90 days. pantoprazol 2022-0 2022- No 40mg Q.5D Take [address] [facility] 07-02 tablet (40 [facility] (PROTONIX) 00:00: 00:00 mg total) M edical 40 MG 00 :00 by mouth 2 Center tablet (two) times daily for 90 days. pantoprazol 2022-0 2022- No 40mg Q.5D Take [address] [facility] 07-02 tablet (40 [facility] (PROTONIX) 00:00: 00:00 mg total) M edical 40 MG 00 :00 by mouth 2 Center tablet (two) times daily for 90 days. pantoprazol 2022-0 2022- No 40mg Q.5D Take [address] [facility] 07-02 tablet (40 [facility] (PROTONIX) 00:00: 00:00 mg total) M edical 40 MG 00 :00 by mouth 2 Center tablet (two) times daily for 90 days. pantoprazol 2022-0 2022- No 40mg Q.5D Take [address] [facility] e 07-02 tablet (40 [facility] (PROTONIX) 00:00: 00:00 mg total) M edical 40 MG 00 :00 by mouth 2 Center tablet (two) times daily for 90 days. pantoprazol 2022-0 2022- No 40mg Q.5D Take [address] [facility] e 07-02 tablet (40 [facility] (PROTONIX) 00:00: 00:00 mg total) M edical 40 MG 00 :00 by mouth 2 Center tablet (two) times daily for 90 days. pantoprazol 2022-0 2022- No 40mg Q.5D Take [address] [facility] 07-02 tablet (40 [facility] (PROTONIX) 00:00: 00:00 mg total) M edical 40 MG 00 :00 by mouth 2 Center tablet (two) times daily for 90 days. pantoprazol 2022-0 2022- No 40mg Q.5D Take [address] [facility] 07-02 tablet (40 [facility] (PROTONIX) 00:00: 00:00 mg total) M edical 40 MG 00 :00 by mouth 2 Center tablet (two) times daily for 90 days. pantoprazol 2021-0 2- No 40mg Q.5D Take [address] [facility] 07-02 tablet (40 [facility] (PROTONIX) 00:00: 00:00 mg total) M edical 40 MG 00 :00 by mouth 2 Center tablet (two) times daily for 90 days. pantoprazol 2021-0 2- No 40mg Q.5D Take 1 [facility] [...] days. Max Daily Amount: 4 tablets HYDROcodone 2021-2021- No 1{tbl} Take [address] -acetaminop 07-02 tablet by Dayana woodson (NORCO 00:00: 23:59 mouth Medic al 5-325) 00 :00 every 6 Center 5-325 mg (six) per tablet hours as needed for Pain for up to 10 days. Max Daily Amount: 4 tablets HYDROcodone 2021-2021- No 1{tbl} Take [address] -acetaminop 07-02 tablet by Dayana woodson (NORCO 00:00: 23:59 mouth Medic al 5-325) 00 :00 every 6 Center 5-325 mg (six) per tablet hours as needed for Pain for up to 10 days. Max Daily Amount: 4 tablets HYDROcodone 2021-2021- No 1{tbl} Take [address] -acetaminop 07-02 tablet by Dayana woodson (NORCO 00:00: 23:59 mouth Medic al 5-325) 00 :00 every 6 Center 5-325 mg (six) per tablet hours as needed for Pain for up to 10 days. Max Daily Amount: 4 tablets HYDROcodone 2021-2021- No 1{tbl} Take [address] -acetaminop 9-12 -22 tablet by Dayana woodson (NORCO 00:00: 23:59 mouth Medic al 5-325) 00 :00 every 6 Center 5-325 mg (six) per tablet hours as needed for Pain for up to 10 days. Max Daily Amount: 4 tablets HYDROcodone 2021-2021- No 1{tbl} Take [address] -acetaminop 9-12 - tablet by Dayana woodson (NORCO 00:00: 23:59 mouth Medic al 5-325) 00 :00 every 6 Center 5-325 mg (six) per tablet hours as needed for Pain for up to 10 days. Max Daily Amount: 4 tablets HYDROcodone 2021-2021- No 1{tbl} Take [address] -acetaminop 9-09 28- tablet by Dayana woodson (NORCO 00:00: 23:59 mouth Medic al 5-325) 00 :00 every 6 Center 5-325 mg (six) per tablet hours as needed for Pain for up to 10 days. Max Daily Amount: 4 tablets HYDROcodone 2021-2021- No 1{tbl} Take [address] -acetaminop 9-12 - tablet by Dayana woodson (NORCO 00:00: 23:59 mouth Medic al 5-325) 00 :00 every 6 Center 5-325 mg (six) per tablet hours as needed for Pain for up to 10 days. Max Daily Amount: 4 tablets HYDROcodone 2021-2021- No 1{tbl} Take [address] -acetaminop 9-12 - tablet by Dayana woodson (NORCO 00:00: 23:59 mouth Medic al 5-325) 00 :00 every 6 Center 5-325 mg (six) per tablet hours as needed for Pain for up to 10 days. Max Daily Amount: 4 tablets HYDROcodone 2021-2021- No 1{tbl} Take [address] -acetaminop 9-12 -22 tablet by Dayana woodson (NORCO 00:00: 23:59 mouth Medic al 5-325) 00 :00 every 6 Center 5-325 mg (six) per tablet hours as needed for Pain for up to 10 days. Max Daily Amount: 4 tablets HYDROcodone 2021-0 2021- No 1{tbl} Take [address] -acetaminop 9-12 -22 tablet by Dayana woodson (NORCO 00:00: 23:59 mouth Medic al 5-325) 00 :00 every 6 Center 5-325 mg (six) per tablet hours as needed for Pain for up to 10 days. Max Daily Amount: 4 tablets HYDROcodone 2021-2021- No 1{tbl} Take [address] -acetaminop 9-12 -22 tablet by Dayana woodson (NORCO 00:00: 23:59 mouth Medic al 5-325) 00 :00 every 6 Center 5-325 mg (six) per tablet hours as needed for Pain for up to 10 days. Max Daily Amount: 4 tablets insulin Yes [id number] 54U inject 54 U nivers lispro, 8-22 Units ity of human, 00:00: under the [place] (HUMALOG 00 skin in Medical U-100 the Branch INSULIN) morning. 100 unit/mL injection telmisartan Yes [id number] 1{tbl} Take 1 [facility] -hydrochlor 8-22 tablet by ity of othiazide 00:00: [place] 80-25 mg 00 the Medical per tablet morning. [facility] h insulin Yes [id number] 54U inject 54 U nivers lispro, 8-22 Units ity of human, 00:00: under the [place] (HUMALOG 00 skin in Medical U-100 the Branch INSULIN) morning. 100 unit/mL injection telmisartan Yes [id number] 1{tbl} Take 1 [facility] -hydrochlor 8-22 tablet by ity of othiazide 00:00: [place] 80-25 mg 00 the Medical per tablet morning. Bran h insulin Yes [id number] 54U inject 54 U nivers lispro, 8-22 Units ity of human, 00:00: under the [place] (HUMALOG 00 skin in Medical U-100 the Branch INSULIN) morning. 100 unit/mL injection insulin 2021-0 Yes [id number] 54U inject 54 U nivers lispro, 8-22 Units ity of human, 00:00: under the [place] (HUMALOG 00 skin in Medical U-100 the Branch INSULIN) morning. 100 unit/mL injection insulin 2021-0 Yes [id number] 54U inject 54 U nivers lispro, 8-22 Units ity of human, 00:00: under the [place] (HUMALOG 00 skin in Medical [facility] the [facility] INSULIN) morning. 100 unit/mL injection insulin 2021-0 Yes [id number] inject 54 U nivers lispro, 8-22 Units ity of human, 00:00: under the [place] (HUMALOG 00 skin in Medical [facility] the [facility] INSULIN) morning. 100 unit/mL injection insulin 2021-0 Yes [id number] inject 54 U nivers lispro, 8-22 Units ity of human, 00:00: under the [place] (HUMALOG 00 skin in Medical [facility] the [facility] INSULIN) morning. 100 unit/mL injection insulin 2021-0 Yes [id number] inject 54 U nivers lispro, 8-22 Units ity of human, 00:00: under the [place] (HUMALOG 00 skin in Medical U-100 the Branch INSULIN) morning. 100 unit/mL injection insulin 2021-0 Yes [id number] 54U inject 54 U nivers lispro, 8-22 Units ity of human, 00:00: under the [place] (HUMALOG 00 skin in Medical U-100 the Branch INSULIN) morning. 100 unit/mL injection insulin 2021-0 Yes [id number] 54U inject 54 U nivers lispro, 8-22 Units ity of human, 00:00: under the [place] (HUMALOG 00 skin in Medical U-100 the Branch INSULIN) morning. 100 unit/mL injection insulin 2021-0 Yes [id number] 54U inject 54 U nivers lispro, 8-22 Units ity of human, 00:00: under the [place] (HUMALOG 00 skin in Medical U-100 the Branch INSULIN) morning. 100 unit/mL injection insulin 2021-0 Yes [id number] 54U inject 54 U nivers lispro, 8-22 Units ity of human, 00:00: under the [place] (HUMALOG 00 skin in Medical U-100 the Branch INSULIN) morning. 100 unit/mL injection insulin 2021-0 Yes [id number] 54U inject 54 U nivers lispro, 8-22 Units ity of human, 00:00: under the [place] (HUMALOG 00 skin in Medical U-100 the Branch INSULIN) morning. 100 unit/mL injection insulin 2021-0 Yes [id number] 54U inject 54 U nivers lispro, 8-22 Units ity of human, 00:00: under the [place] (HUMALOG 00 skin in Medical U-100 the Branch INSULIN) morning. 100 unit/mL injection insulin 2021-0 Yes [id number] 54U inject 54 U nivers lispro, 8-22 Units ity of human, 00:00: under the [place] (HUMALOG 00 skin in Medical U-100 the Branch INSULIN) morning. 100 unit/mL injection insulin 2021-0 Yes [id number] 54U inject 54 U nivers lispro, 8-22 Units ity of human, 00:00: under the [place] (HUMALOG 00 skin in Medical U-100 the Branch INSULIN) morning. 100 unit/mL injection insulin 2021-0 Yes [id number] 54U inject 54 U nivers lispro, 8-22 Units ity of human, 00:00: under the [place] (HUMALOG 00 skin in Medical U-100 the Branch INSULIN) morning. 100 unit/mL injection insulin 2021-0 Yes [id number] 54U inject 54 U nivers lispro, 8-22 Units ity of human, 00:00: under the [place] (HUMALOG 00 skin in Medical U-100 the Branch INSULIN) morning. 100 unit/mL injection insulin 2021-0 Yes [id number] 54U inject 54 U nivers lispro, 8-22 Units ity of human, 00:00: under the [place] (HUMALOG 00 skin in Medical U-100 the Branch INSULIN) morning. 100 unit/mL injection insulin 2021-0 Yes [id number] 54U inject 54 U nivers lispro, 8-22 Units ity of human, 00:00: under the [place] (HUMALOG 00 skin in Medical U-100 the Branch INSULIN) morning. 100 unit/mL injection insulin 2021-0 Yes [id number] 54U inject 54 U nivers lispro, 8-22 Units ity of human, 00:00: under the [place] (HUMALOG 00 skin in Medical U-100 the Branch INSULIN) morning. 100 unit/mL injection insulin 2021-0 Yes [id number] 54U inject 54 U nivers lispro, 8-22 Units ity of human, 00:00: under the [place] (HUMALOG 00 skin in Medical U-100 the Branch INSULIN) morning. 100 unit/mL injection insulin 2021-0 Yes [id number] 54U inject 54 U nivers lispro, 8-22 Units ity of human, 00:00: under the [place] (HUMALOG 00 skin in Medical U-100 the Branch INSULIN) morning. 100 unit/mL injection insulin 2021-0 Yes [id number] 54U inject 54 U nivers lispro, 8-22 Units ity of human, 00:00: under the [place] (HUMALOG 00 skin in Medical U-100 the Branch INSULIN) morning. 100 unit/mL injection insulin 2021-0 Yes [id number] 54U inject 54 U nivers lispro, 8-22 Units ity of human, 00:00: under the [place] (HUMALOG 00 skin in Medical U-100 the Branch INSULIN) morning. 100 unit/mL injection insulin 2021-0 Yes [id number] 54U inject 54 U nivers lispro, 8-22 Units ity of human, 00:00: under the [place] (HUMALOG 00 skin in Medical U-100 the Branch INSULIN) morning. 100 unit/mL injection insulin 2021-0 Yes [id number] 54U inject 54 U nivers lispro, 8-22 Units ity of human, 00:00: under the [place] (HUMALOG 00 skin in Medical U-100 the Branch INSULIN) morning. 100 unit/mL injection insulin 2021-0 Yes [id number] 54U inject 54 U nivers lispro, 8-22 Units ity of human, 00:00: under the [place] (HUMALOG 00 skin in Medical U-100 the Branch INSULIN) morning. 100 unit/mL injection insulin 2021-0 Yes [id number] 54U inject 54 U nivers lispro, 8-22 Units ity of human, 00:00: under the [place] (HUMALOG 00 skin in Medical U-100 the Branch INSULIN) morning. 100 unit/mL injection insulin 2021-0 Yes [id number] 54U inject 54 U nivers lispro, 8-22 Units ity of human, 00:00: under the [place] (HUMALOG 00 skin in Medical U-100 the Branch INSULIN) morning. 100 unit/mL injection insulin 2021-0 Yes [id number] 54U inject 54 U nivers lispro, 8-22 Units ity of human, 00:00: under the [place] (HUMALOG 00 skin in Medical U-100 the Branch INSULIN) morning. 100 unit/mL injection insulin 2021-0 Yes [id number] 54U inject 54 U nivers lispro, 8-22 Units ity of human, 00:00: under the [place] (HUMALOG 00 skin in Medical U-100 the Branch INSULIN) morning. 100 unit/mL injection insulin 2021-0 Yes [id number] 54U inject 54 U nivers lispro, 8-22 Units ity of human, 00:00: under the [place] (HUMALOG 00 skin in Medical U-100 the Branch INSULIN) morning. 100 unit/mL injection insulin 2021-0 Yes [id number] 54U inject 54 U nivers lispro, 8-22 Units ity of human, 00:00: under the [place] (HUMALOG 00 skin in Medical U-100 the Branch INSULIN) morning. 100 unit/mL injection insulin 2021-0 Yes [id number] 54U inject 54 U nivers lispro, 8-22 Units ity of human, 00:00: under the [place] (HUMALOG 00 skin in Medical U-100 the Branch INSULIN) morning. 100 unit/mL injection insulin 2021-0 Yes [id number] 54U inject 54 U nivers lispro, 8-22 Units ity of human, 00:00: under the [place] (HUMALOG 00 skin in Medical U-100 the Branch INSULIN) morning. 100 unit/mL injection insulin 2021-0 Yes [id number] 54U inject 54 U nivers lispro, 8-22 Units ity of human, 00:00: under the [place] (HUMALOG 00 skin in Medical U-100 the Branch INSULIN) morning. 100 unit/mL injection insulin 2021-0 Yes [id number] 54U inject 54 U nivers lispro, 8-22 Units ity of human, 00:00: under the [place] (HUMALOG 00 skin in Medical U-100 the Branch INSULIN) morning. 100 unit/mL injection insulin 2021-0 Yes [id number] 54U inject 54 U nivers lispro, 8-22 Units ity of human, 00:00: under the [place] (HUMALOG 00 skin in Medical U-100 the Branch INSULIN) morning. 100 unit/mL injection insulin 0 Yes [id number] 54U inject 54 U nivers lispro, 8-22 Units ity of human, 00:00: under the [place] (HUMALOG 00 skin in Medical U-100 the Branch INSULIN) morning. 100 unit/mL injection insulin 0 Yes [id number] 54U inject 54 U nivers lispro, 8-22 Units ity of human, 00:00: under the [place] (HUMALOG 00 skin in Medical U-100 the Branch INSULIN) morning. 100 unit/mL injection insulin 0 Yes [id number] 54U inject 54 U nivers lispro, 8-22 Units ity of human, 00:00: under the [place] (HUMALOG 00 skin in Medical U-100 the Branch INSULIN) morning. 100 unit/mL injection insulin 0 Yes [id number] 54U inject 54 U nivers lispro, 8-22 Units ity of human, 00:00: under the [place] (HUMALOG 00 skin in Medical U-100 the Branch INSULIN) morning. 100 unit/mL injection insulin 0 Yes [id number] 54U inject 54 U nivers lispro, 8-22 Units ity of human, 00:00: under the [place] (HUMALOG 00 skin in Medical U-100 the Branch INSULIN) morning. 100 unit/mL injection insulin 0 Yes [id number] 54U inject 54 U nivers lispro, 8-22 Units ity of human, 00:00: under the [place] (HUMALOG 00 skin in Medical U-100 the Branch INSULIN) morning. 100 unit/mL injection insulin 2022- No [id number] 54U inject 54 [facility] lispro, 8-23 Units ity of human, 00:00: 00:00 under the [place] (HUMALOG 00 :00 skin in Medical U-100 the Branch INSULIN) morning. 100 unit/mL injection insulin 0 3- No [id number] 54U inject 54 [facility] lispro, 8-23 Units ity of human, 00:00: 00:00 under the [place] (HUMALOG 00 :00 skin in Medical U-100 the Branch INSULIN) morning. 100 unit/mL injection telmisartan 2021- No [id number] 1{tbl} Take 1 [facility] -hydrochlor 06-11 tablet by it y of othiazide 00:00: 00:00 mouth in [place] as 80-25 mg 00 :00 the Medical per tablet morning. Branc h insulin 2021- No [id number] 54U inject 54 [facility] lispro, 06-11 08-22 Units ity of human, 00:00: 00:00 under the [place] (HUMALOG 00 :00 skin in Medical U-100 [facility] Branch INSULIN) morning. 100 unit/mL injection insulin 2021- No [id number] 54U inject 54 [facility] lispro, 05-18 08- Units ity of human, 00:00: 00:00 under the [place] (HUMALOG 00 :00 skin in Medical U-100 [facility] Branch INSULIN) morning 100 unit/mL and 54 injection Units at noon and 54 Units in the evening. inject with meals. Blood-Gluco 0 Yes [id number] Use as Univers se Sensor 7-26 directed ity of (DEXCOM G6 00:00: [place] SENSOR) 00 [facility] Blood-Gluco 2021-0 Yes [id number] Use as Univers se Sensor 7-26 directed ity of (DEXCOM G6 00:00: [place] SENSOR) 00 [facility] Blood-Gluco 2021-0 Yes [id number] Use as Univers se Sensor 7-26 directed ity of (DEXCOM G6 00:00: [place] SENSOR) 00 [facility] Blood-Gluco 2021-0 Yes [id number] Use as Univers se Sensor 7-26 directed ity of (DEXCOM G6 00:00: [place] SENSOR) 00 [facility] Blood-Gluco 2021-0 Yes [id number] Use as Univers se Sensor 7-26 directed ity of (DEXCOM G6 00:00: [place] SENSOR) 00 [facility] Blood-Gluco 2021-0 Yes [id number] Use as Univers se Sensor 7-26 directed ity of (DEXCOM G6 00:00: [place] SENSOR) 00 [facility] Blood-Gluco 2021-0 Yes [id number] Use as Univers se Sensor 7-26 directed ity of (DEXCOM G6 00:00: [place] SENSOR) 00 [facility] Blood-Gluco 2022-0 Yes [id number] Use as Univers se Sensor 7-26 directed ity of (DEXCOM G6 00:00: [place] SENSOR) 00 [facility] [place] [facility] Blood-Gluco 2021-0 Yes [id number] Use as Univers se Sensor 7-26 directed ity of (DEXCOM G6 00:00: [place] SENSOR) 00 [facility] [place] [facility] Blood-Gluco 2021-0 Yes [id number] Use as Univers se Sensor 7-26 directed ity of (DEXCOM G6 00:00: [place] SENSOR) 00 [facility] [place] [facility] Blood-Gluco 2021-0 Yes [id number] Use as Univers se Sensor 7-26 directed ity of (DEXCOM G6 00:00: [place] SENSOR) 00 [facility] [place] [facility] Blood-Gluco 2021-0 Yes [id number] Use as Univers se Sensor 7-26 directed ity of (DEXCOM G6 00:00: [place] SENSOR) 00 [facility] [place] [facility] Blood-Gluco 0 Yes [id number] Use as Univers se Sensor 7-26 directed ity of (DEXCOM G6 00:00: [place] SENSOR) 00 [facility] [place] [facility] Blood-Gluco 2021-0 Yes [id number] Use as Univers se Sensor 7-26 directed ity of (DEXCOM G6 00:00: [place] SENSOR) 00 [facility] [place] [facility] Blood-Gluco 2021-0 Yes [id number] Use as Univers se Sensor 7-26 directed ity of (DEXCOM G6 00:00: [place] SENSOR) 00 [facility] [place] [facility] Blood-Gluco 2021-0 Yes [id number] Use as Univers se Sensor 7-26 directed ity of (DEXCOM G6 00:00: [place] SENSOR) 00 [facility] [place] [facility] Blood-Gluco 2021-0 Yes [id number] Use as [facility] se Sensor 7-26 directed ity of (DEXCOM G6 00:00: [place] SENSOR) 00 [facility] [place] [facility] Blood-Gluco 2021-0 Yes [id number] Use as [facility] se Sensor 7-26 directed ity of (DEXCOM G6 00:00: [place] SENSOR) 00 [facility] [place] [facility] Blood-Gluco 2021-0 Yes [id number] Use as Univers se Sensor 7-26 directed ity of (DEXCOM G6 00:00: [place] SENSOR) 00 [facility] [place] [facility] Blood-Gluco 2021-0 Yes [id number] Use as [facility] se Sensor 7-26 directed ity of (DEXCOM G6 00:00: [place] SENSOR) 00 [facility] [place] [facility] Blood-Gluco 2021-0 Yes [id number] Use as [facility] se Sensor 7-26 directed ity of (DEXCOM G6 00:00: [place] SENSOR) 00 [facility] [place] [facility] Blood-Gluco 2021-0 Yes [id number] Use as [facility] se Sensor 7-26 directed ity of (DEXCOM G6 00:00: [place] SENSOR) 00 [facility] [place] [facility] Blood-Gluco 2021-0 Yes [id number] Use as Univers se Sensor 7-26 directed ity of (DEXCOM G6 00:00: [place] SENSOR) 00 [facility] [place] [facility] Blood-Gluco 2021-0 Yes [id number] Use as Univers se Sensor 7-26 directed ity of (DEXCOM G6 00:00: [place] SENSOR) 00 [facility] [place] [facility] Blood-Gluco 2021-0 Yes [id number] Use as Univers se Sensor 7-26 directed ity of (DEXCOM G6 00:00: [place] SENSOR) 00 [facility] [place] [facility] Blood-Gluco 2021-0 Yes [id number] Use as Univers se Sensor 7-26 directed ity of (DEXCOM G6 00:00: [place] SENSOR) 00 [facility] [place] [facility] Blood-Gluco 2021-0 Yes [id number] Use as Univers se Sensor 7-26 directed ity of (DEXCOM G6 00:00: [place] SENSOR) 00 [facility] [place] [facility] Blood-Gluco 2021-0 Yes [id number] Use as Univers se Sensor 7-26 directed ity of (DEXCOM G6 00:00: [place] SENSOR) 00 [facility] [place] [facility] Blood-Gluco 2021-0 Yes [id number] Use as Univers se Sensor 7-26 directed ity of (DEXCOM G6 00:00: [place] SENSOR) 00 [facility] [place] [facility] Blood-Gluco 2021-0 Yes [id number] Use as Univers se Sensor 7-26 directed ity of (DEXCOM G6 00:00: [place] SENSOR) 00 [facility] [place] [facility] Blood-Gluco 2021-0 Yes [id number] Use as Univers se Sensor 7-26 directed ity of (DEXCOM G6 00:00: [place] SENSOR) 00 [facility] [place] [facility] Blood-Gluco 2021-0 Yes [id number] Use as Univers se Sensor 7-26 directed ity of (DEXCOM G6 00:00: [place] SENSOR) 00 [facility] [place] [facility] Blood-Gluco 2021-0 Yes [id number] Use as Univers se Sensor 7-26 directed ity of (DEXCOM G6 00:00: [place] SENSOR) 00 [facility] [place] [facility] Blood-Gluco Yes [id number] Use as Univers se Sensor 7-26 directed ity of (DEXCOM G6 00:00: [place] SENSOR) 00 [facility] Blood-Gluco Yes [id number] Use as Univers se Sensor 7-26 directed ity of (DEXCOM G6 00:00: [place] SENSOR) 00 [facility] Blood-Gluco Yes [id number] Use as Univers se Sensor 7-26 directed ity of (DEXCOM G6 00:00: [place] SENSOR) 00 [facility] Blood-Gluco Yes [id number] Use as Univers se Sensor 7-26 directed ity of (DEXCOM G6 00:00: [place] SENSOR) 00 [facility] Blood-Gluco Yes [id number] Use as Univers se Sensor 7-26 directed ity of (DEXCOM G6 00:00: [place] SENSOR) 00 [facility] Blood-Gluco Yes [id number] Use as Univers se Sensor 7-26 directed ity of (DEXCOM G6 00:00: [place] SENSOR) [facility] Blood-Gluco 2021- No [id number] Use as Univers se Sensor 7-26 12-29 directed ity o f (DEXCOM G6 00:00: 00:00 [place] SENSOR) 00 :00 [facility] proMETHazin Yes [id number] 25mg Insert 1 Univers e 25 mg 7-11 [facility] of suppository 00:[place] rect[place] Medical every 4 Branch (four) hours as needed for Nausea and Vomiting (N/V). proMETHazin Yes [id number] 25mg Insert 1 [facility] e 25 mg 7-11 Supp[facility] of supp[place] 00:[place] [facility] every 4 Branch (four) hours as needed for Nausea and Vomiting (N/V). proMETHazin 2021-0 Yes [id number] 25mg Insert 1 [facility] e 25 mg 7-11 Suppos[facility]y of suppository 00:[place] [facility] [facility] every 4 Branch (four) hours as needed for Nausea and Vomiting (N/V). proMETHazin 2021-0 Yes [id number] 25mg Insert 1 [facility] e 25 mg 7-11 Suppos[facility]y of suppository 00:[place] [facility] every 4 Branch (four) hours as needed for Nausea and Vomiting (N/V). proMETHazin Yes [id number] 25mg Insert 1 [facility] e 25 mg 7-11 Suppositor [facility]y of suppository 00:[place]: [place] [facility] every 4 Branch (four) hours as needed for Nausea and Vomiting (N/V). proMETHazin Yes [id number] 25mg Insert 1 [facility] e 25 mg 7-11 Suppositor ity of suppository 00:[place]: [place] [facility] every 4 Branch (four) hours as needed for Nausea and Vomiting (N/V). proMETHazin Yes [id number] 25mg Insert 1 [facility] e 25 mg 7-11 Suppositor ity of suppository 00:[place]: [place] [facility] every 4 Branch (four) hours as needed for Nausea and Vomiting (N/V). proMETHazin Yes [id number] 25mg Insert 1 [facility] e 25 mg 7-11 Suppositor ity of suppository 00:00: [place] [facility] every 4 Branch (four) hours as needed for Nausea and Vomiting (N/V). proMETHazin Yes [id number] 25mg Insert 1 [facility] e 25 mg 7-11 Suppositor ity of suppository 00:[place]: [place] [facility] every 4 Branch (four) hours as needed for Nausea and Vomiting (N/V). proMETHazin Yes [id number] 25mg Insert 1 [facility] e 25 mg 7-11 Suppositor ity of suppository 00:00: [place] [facility] every 4 Branch (four) hours as needed for Nausea and Vomiting (N/V). proMETHazin Yes [id number] 25mg Insert 1 [facility] e 25 mg 7-11 Suppositor ity of suppository 00:00: [place] [facility] every 4 Branch (four) hours as needed for Nausea and Vomiting (N/V). proMETHazin Yes [id number] 25mg Insert 1 [facility] e 25 mg 7-11 Suppositor ity of suppository 00:[place]: [place] [facility] every 4 Branch (four) hours as needed for Nausea and Vomiting (N/V). proMETHazin Yes [id number] 25mg Insert 1 [facility] e 25 mg 7-11 Suppositor ity of suppository 00:00: [place] [facility] every 4 Branch (four) hours as needed for Nausea and Vomiting (N/V). proMETHazin Yes [id number] 25mg Insert 1 [facility] e 25 mg 7-11 Suppositor ity of suppository 00:[place]: [place] [facility] every 4 Branch (four) hours as needed for Nausea and Vomiting (N/V). proMETHazin Yes [id number] 25mg Insert 1 [facility] e 25 mg 7-11 Suppositor ity of suppository 00:00: [place] [facility] every 4 Branch (four) hours as needed for Nausea and Vomiting (N/V). proMETHazin Yes [id number] 25mg Insert 1 [facility] e 25 mg 7-11 Suppositor ity of suppository 00:[place]: [place] [facility] every 4 Branch (four) hours as needed for Nausea and Vomiting (N/V). proMETHazin Yes [id number] 25mg Insert 1 [facility] e 25 mg 7-11 Suppositor ity of suppository 00:00: [place] [facility] every 4 Branch (four) hours as needed for Nausea and Vomiting (N/V). proMETHazin Yes [id number] 25mg Insert 1 [facility] e 25 mg 7-11 Suppositor ity of suppository 00:00: [place] [facility] every 4 Branch (four) hours as needed for Nausea and Vomiting (N/V). proMETHazin 0 Yes [id number] 25mg Insert 1 [facility] e 25 mg 7-11 Suppositor ity of suppository 00:00: [place] [facility] every 4 Branch (four) hours as needed for Nausea and Vomiting (N/V). proMETHazin Yes [id number] 25mg Insert 1 [facility] e 25 mg 7-11 Suppositor ity of suppository 00:00: [place] [facility] every 4 Branch (four) hours as needed for Nausea and Vomiting (N/V). proMETHazin Yes [id number] 25mg Insert 1 [facility] e 25 mg 7-11 Suppositor ity of suppository 00:00: [place] [facility] every 4 Branch (four) hours as needed for Nausea and Vomiting (N/V). proMETHazin Yes [id number] 25mg Insert 1 [facility] e 25 mg 7-11 Suppositor ity of suppository 00:00: [place] [facility] every 4 Branch (four) hours as needed for Nausea and Vomiting (N/V). proMETHazin Yes [id number] 25mg Insert 1 [facility] e 25 mg 7-11 Suppositor ity of suppository 00:00: [place] [facility] every 4 Branch (four) hours as needed for Nausea and Vomiting (N/V). proMETHazin Yes [id number] 25mg Insert 1 [facility] e 25 mg 7-11 Suppositor ity of suppository 00:00: [place] [facility] every 4 Branch (four) hours as needed for Nausea and Vomiting (N/V). proMETHazin Yes [id number] 25mg Insert 1 [facility] e 25 mg 7-11 Suppositor ity of suppository 00:00: [place] [facility] every 4 Branch (four) hours as needed for Nausea and Vomiting (N/V). proMETHazin Yes [id number] 25mg Insert 1 [facility] e 25 mg 7-11 Suppositor ity of suppository 00:00: [place] [facility] every 4 Branch (four) hours as needed for Nausea and Vomiting (N/V). proMETHazin Yes [id number] 25mg Insert 1 [facility] e 25 mg 7-11 Suppositor ity of suppository 00:00: [place] [facility] every 4 Branch (four) hours as needed for Nausea and Vomiting (N/V). proMETHazin Yes [id number] 25mg Insert 1 [facility] e 25 mg 7-11 Suppositor ity of suppository 00:00: [place] [facility] every 4 Branch (four) hours as needed for Nausea and Vomiting (N/V). proMETHazin Yes [id number] 25mg Insert 1 [facility] e 25 mg 7-11 Suppositor ity of suppository 00:00: [place] [facility] every 4 Branch (four) hours as needed for Nausea and Vomiting (N/V). proMETHazin Yes [id number] 25mg Insert 1 [facility] e 25 mg 7-11 Suppositor ity of suppository 00:00: [place] [facility] every 4 Branch (four) hours as needed for Nausea and Vomiting (N/V). proMETHazin Yes [id number] 25mg Insert 1 [facility] e 25 mg 7-11 Suppositor ity of suppository 00:00: [place] [facility] every 4 Branch (four) hours as needed for Nausea and Vomiting (N/V). proMETHazin Yes [id number] 25mg Insert 1 [facility] e 25 mg 7-11 Suppositor ity of suppository 00:00: [place] [facility] every 4 Branch (four) hours as needed for Nausea and Vomiting (N/V). proMETHazin Yes [id number] 25mg Insert 1 [facility] e 25 mg 7-11 Suppositor ity of suppository 00:00: [place] [facility] every 4 Branch (four) hours as needed for Nausea and Vomiting (N/V). proMETHazin Yes [id number] 25mg Insert 1 [facility] e 25 mg 7-11 Suppositor ity of suppository 00:00: [place] [facility] every 4 Branch (four) hours as needed for Nausea and Vomiting (N/V). proMETHazin Yes [id number] 25mg Insert 1 [facility] e 25 mg 7-11 Suppositor ity of suppository 00:00: [place] [facility] every 4 Branch (four) hours as needed for Nausea and Vomiting (N/V). proMETHazin Yes [id number] 25mg Insert 1 [facility] e 25 mg 7-11 Suppositor ity of suppository 00:00: [place] [facility] every 4 Branch (four) hours as needed for Nausea and Vomiting (N/V). proMETHazin Yes [id number] 25mg Insert 1 [facility] e 25 mg 7-11 Suppositor ity of suppository 00:00: [place] [facility] every 4 Branch (four) hours as needed for Nausea and Vomiting (N/V). proMETHazin Yes [id number] 25mg Insert 1 [facility] e 25 mg 7-11 Suppositor ity of suppository 00:00: [place] [facility] every 4 Branch (four) hours as needed for Nausea and Vomiting (N/V). proMETHazin Yes [id number] 25mg Insert 1 [facility] e 25 mg 7-11 Suppositor ity of suppository 00:00: [place] [facility] every 4 Branch (four) hours as needed for Nausea and Vomiting (N/V). proMETHazin Yes [id number] 25mg Insert 1 [facility] e 25 mg 7-11 Suppositor ity of suppository 00:00: [place] [facility] every 4 Branch (four) hours as needed for Nausea and Vomiting (N/V). proMETHazin Yes [id number] 25mg Insert 1 [facility] e 25 mg 7-11 Suppositor ity of suppository 00:00: [place] [facility] every 4 Branch (four) hours as needed for Nausea and Vomiting (N/V). proMETHazin Yes [id number] 25mg Insert 1 [facility] e 25 mg 7-11 Suppositor ity of suppository 00:00: [place] [facility] every 4 Branch (four) hours as needed for Nausea and Vomiting (N/V). proMETHazin Yes [id number] 25mg Insert 1 [facility] e 25 mg 7-11 Suppositor ity of suppository 00:00: [place] [facility] every 4 Branch (four) hours as needed for Nausea and Vomiting (N/V). proMETHazin Yes [id number] 25mg Insert 1 [facility] e 25 mg 7-11 Suppositor ity of suppository 00:00: [place] [facility] every 4 Branch (four) hours as needed for Nausea and Vomiting (N/V). proMETHazin Yes [id number] 25mg Insert 1 [facility] e 25 mg 7-11 Suppositor ity of suppository 00:00: [place] [facility] every 4 Branch (four) hours as needed for Nausea and Vomiting (N/V). proMETHazin Yes [id number] 25mg Insert 1 [facility] e 25 mg 7-11 Suppositor ity of suppository 00:00: [place] [facility] every 4 Branch (four) hours as needed for Nausea and Vomiting (N/V). proMETHazin Yes [id number] 25mg Insert 1 [facility] e 25 mg 7-11 Suppositor ity of suppository 00:00: [place] [facility] every 4 Branch (four) hours as needed for Nausea and Vomiting (N/V). proMETHazin Yes [id number] 25mg Insert 1 [facility] e 25 mg 7-11 Suppositor ity of suppository 00:00: [place] every 4 Branch (four) hours as needed for Nausea and Vomiting (N/V). proMETHazin Yes [id number] 25mg Insert 1 [facility] e 25 mg 7-11 Suppositor ity of suppository 00:00: [place] every 4 Branch (four) hours as needed for Nausea and Vomiting (N/V). proMETHazin Yes [id number] 25mg Insert 1 [facility] e 25 mg 7-11 Suppositor ity of suppository 00:00: [place] every 4 Branch (four) hours as needed for Nausea and Vomiting (N/V). proMETHazin Yes [id number] 25mg Insert 1 [facility] e 25 mg 7-11 Suppositor ity of suppository 00:[place]: [place] every 4 Branch (four) hours as needed for Nausea and Vomiting (N/V). proMETHazin Yes [id number] 25mg Insert 1 [facility] 7-11 [facility] [facility]:[place] [facility] every 4 Branch (four) hours as needed for Nausea and Vomiting (N/V). proMETHazin Yes [id number] 25mg Insert 1 [facility] 25 mg 7-11 [facility] supp[facility]:[place] [facility] every 4 Branch (four) hours as needed for Nausea and Vomiting (N/V). proMETHazin Yes [id number] 25mg Insert 1 [facility] 25 mg 7-11 [facility] supp[facility] 00:[place] [facility] every 4 Branch (four) hours as needed for Nausea and Vomiting (N/V). proMETHazin Yes [id number] 25mg Insert 1 [facility] 25 mg 7-11 [facility] supp[facility] 00:[place] [facility] every 4 Branch (four) hours as needed for Nausea and Vomiting (N/V). proMETHazin Yes [id number] 25mg Insert 1 [facility] 25 mg 7-11 [facility] supp[facility] 00:[place]: [place] [facility] every 4 Branch (four) hours as needed for Nausea and Vomiting (N/V). proMETHazin Yes [id number] 25mg Insert 1 [facility] 25 mg 7-11 [facility] supp[facility] 00:00: [place] [facility] every 4 Branch (four) hours as needed for Nausea and Vomiting (N/V). proMETHazin Yes [id number] 25mg Insert 1 [facility] 25 mg 7-11 [facility] suppository 00:00: [place] [facility] every 4 Branch (four) hours as needed for Nausea and Vomiting (N/V). proMETHazin Yes [id number] 25mg Insert 1 [facility] 25 mg 7-11 [facility] suppository 00:00: [place] [facility] every 4 Branch (four) hours as needed for Nausea and Vomiting (N/V). proMETHazin Yes [id number] 25mg Insert 1 [facility] 25 mg 7-11 [facility] suppository 00:00: [place] [facility] every 4 Branch (four) hours as needed for Nausea and Vomiting (N/V). proMETHazin Yes [id number] 25mg Insert 1 [facility] 25 mg 7-11 [facility] suppository 00:00: [place] [facility] every 4 Branch (four) hours as needed for Nausea and Vomiting (N/V). proMETHazin Yes [id number] 25mg Insert 1 [facility] 25 mg 7-11 [facility] suppository 00:00: [place] [facility] every 4 Branch (four) hours as needed for Nausea and Vomiting (N/V). proMETHazin Yes [id number] 25mg Insert 1 [facility] 25 mg 7-11 [facility] suppository 00:00: [place] [facility] every 4 Branch (four) hours as needed for Nausea and Vomiting (N/V). proMETHazin Yes [id number] 25mg Insert 1 [facility] 25 mg 7-11 [facility] suppository 00:00: [place] [facility] every 4 Branch (four) hours as needed for Nausea and Vomiting (N/V). proMETHazin Yes [id number] 25mg Insert 1 [facility] 25 mg 7-11 [facility] suppository 00:00: [place] [facility] every 4 Branch (four) hours as needed for Nausea and Vomiting (N/V). proMETHazin Yes [id number] 25mg Insert 1 [facility] 25 mg 7-11 [facility] suppository 00:00: [place] [facility] every 4 Branch (four) hours as needed for Nausea and Vomiting (N/V). proMETHazin Yes [id number] 25mg Insert 1 [facility] 25 mg 7-11 [facility] suppository 00:00: [place] [facility] every 4 Branch (four) hours as needed for Nausea and Vomiting (N/V). proMETHazin Yes [id number] 25mg Insert 1 [facility] 25 mg 7-11 [facility] suppository 00:00: [place] [facility] every 4 Branch (four) hours as needed for Nausea and Vomiting (N/V). proMETHazin Yes [id number] 25mg Insert 1 [facility] 25 mg 7-11 [facility] suppository 00:00: [place] [facility] every 4 Branch (four) hours as needed for Nausea and Vomiting (N/V). proMETHazin Yes [id number] 25mg Insert 1 [facility] 25 mg 7-11 [facility] suppository 00:00: [place] [facility] every 4 Branch (four) hours as needed for Nausea and Vomiting (N/V). proMETHazin Yes [id number] 25mg Insert 1 [facility] 25 mg 7-11 [facility] suppository 00:00: [place] [facility] every 4 Branch (four) hours as needed for Nausea and Vomiting (N/V). proMETHazin Yes [id number] 25mg Insert 1 [facility] 25 mg 7-11 [facility] suppository 00:00: [place] [facility] every 4 Branch (four) hours as needed for Nausea and Vomiting (N/V). proMETHazin Yes [id number] 25mg Insert 1 [facility] 25 mg 7-11 [facility] suppository 00:00: [place] [facility] every 4 Branch (four) hours as needed for Nausea and Vomiting (N/V). proMETHazin Yes [id number] 25mg Insert 1 [facility] 25 mg 7-11 [facility] suppository 00:00: [place] [facility] every 4 Branch (four) hours as needed for Nausea and Vomiting (N/V). proMETHazin Yes [id number] 25mg Insert 1 [facility] 25 mg 7-11 [facility] suppository 00:00: [place] [facility] every 4 Branch (four) hours as needed for Nausea and Vomiting (N/V). proMETHazin Yes [id number] 25mg Insert 1 [facility] 25 mg 7-11 Supp[facility] suppository 00:00: [place] [facility] every 4 Branch (four) hours as needed for Nausea and Vomiting (N/V). proMETHazin Yes [id number] 25mg Insert 1 [facility] 25 mg 7-11 Supp[facility] suppository 00:00: [place] [facility] every 4 Branch (four) hours as needed for Nausea and Vomiting (N/V). proMETHazin Yes [id number] 25mg Insert 1 [facility] 25 mg 7-11 [facility] suppository 00:00: [place] [facility] every 4 Branch (four) hours as needed for Nausea and Vomiting (N/V). proMETHazin Yes [id number] 25mg Insert 1 [facility] 25 mg 7-11 [facility] suppository 00:00: [place] [facility] every 4 Branch (four) hours as needed for Nausea and Vomiting (N/V). proMETHazin Yes [id number] 25mg Insert 1 [facility] 25 mg 7-11 Supp[facility] suppository 00:00: [place] [facility] every 4 Branch (four) hours as needed for Nausea and Vomiting (N/V). proMETHazin Yes [id number] 25mg Insert 1 [facility] 25 mg 7-11 [facility] suppository 00:00: [place] [facility] every 4 Branch (four) hours as needed for Nausea and Vomiting (N/V). proMETHazin Yes [id number] 25mg Insert 1 [facility] 25 mg 7-11 [facility] suppository 00:00: [place] [facility] every 4 Branch (four) hours as needed for Nausea and Vomiting (N/V). proMETHazin Yes [id number] 25mg Insert 1 [facility] 25 mg 7-11 Supp[facility] suppository 00:00: [place] [facility] every 4 Branch (four) hours as needed for Nausea and Vomiting (N/V). proMETHazin Yes [id number] 25mg Insert 1 [facility] 25 mg 7-11 [facility] suppository 00:00: [place] [facility] every 4 Branch (four) hours as needed for Nausea and Vomiting (N/V). proMETHazin Yes [id number] 25mg Insert 1 [facility] 25 mg 7-11 [facility] suppository 00:00: [place] [facility] every 4 Branch (four) hours as needed for Nausea and Vomiting (N/V). proMETHazin Yes [id number] 25mg Insert 1 [facility] 25 mg 7-11 [facility] suppository 00:00: [place] [facility] every 4 Branch (four) hours as needed for Nausea and Vomiting (N/V). proMETHazin Yes [id number] 25mg Insert 1 [facility] 25 mg 7-11 [facility] suppository 00:00: [place] [facility] every 4 Branch (four) hours as needed for Nausea and Vomiting (N/V). proMETHazin Yes [id number] 25mg Insert 1 [facility] 25 mg 7-11 [facility] suppository 00:00: [place] [facility] every 4 Branch (four) hours as needed for Nausea and Vomiting (N/V). proMETHazin Yes [id number] 25mg Insert 1 [facility] 25 mg 7-11 [facility] suppository 00:00: [place] [facility] every 4 Branch (four) hours as needed for Nausea and Vomiting (N/V). proMETHazin Yes [id number] 25mg Insert 1 [facility] 25 mg 7-11 [facility] suppository 00:00: [place] [facility] every 4 Branch (four) hours as needed for Nausea and Vomiting (N/V). proMETHazin Yes [id number] 25mg Insert 1 [facility] 25 mg 7-11 [facility] suppository 00:00: [place] [facility] every 4 Branch (four) hours as needed for Nausea and Vomiting (N/V). proMETHazin Yes [id number] 25mg Insert 1 [facility] 25 mg 7-11 [facility] suppository 00:00: [place] [facility] every 4 Branch (four) hours as needed for Nausea and Vomiting (N/V). proMETHazin Yes [id number] 25mg Insert 1 [facility] 25 mg 7-11 [facility] suppository 00:00: [place] [facility] every 4 Branch (four) hours as needed for Nausea and Vomiting (N/V). proMETHazin Yes [id number] 25mg Insert 1 [facility] 25 mg 7-11 [facility] suppository 00:00: [place] [facility] every 4 Branch (four) hours as needed for Nausea and Vomiting (N/V). proMETHazin Yes [id number] 25mg Insert 1 [facility] 25 mg 7-11 [facility] suppository 00:00: [place] [facility] every 4 Branch (four) hours as needed for Nausea and Vomiting (N/V). proMETHazin Yes [id number] 25mg Insert 1 [facility] 25 mg 7-11 [facility] suppository 00:00: [place] [facility] every 4 Branch (four) hours as needed for Nausea and Vomiting (N/V). proMETHazin Yes [id number] 25mg Insert 1 [facility] 25 mg 7-11 [facility] suppository 00:00: [place] [facility] every 4 Branch (four) hours as needed for Nausea and Vomiting (N/V). proMETHazin Yes [id number] 25mg Insert 1 [facility] 25 mg 7-11 Supp[facility] suppository 00:00: [place] [facility] every 4 Branch (four) hours as needed for Nausea and Vomiting (N/V). proMETHazin Yes [id number] 25mg Insert 1 [facility] 25 mg 7-11 Supp[facility] of suppository 00:00: [place] [facility] every 4 Branch (four) hours as needed for Nausea and Vomiting (N/V). proMETHazin Yes [id number] 25mg Insert 1 [facility] 25 mg 7-11 [facility] suppository 00:00: [place] [facility] every 4 Branch (four) hours as needed for Nausea and Vomiting (N/V). proMETHazin Yes [id number] 25mg Insert 1 [facility] 25 mg 7-11 [facility] suppository 00:00: [place] [facility] every 4 Branch (four) hours as needed for Nausea and Vomiting (N/V). proMETHazin Yes [id number] 25mg Insert 1 [facility] 25 mg 7-11 Supp[facility] of suppository 00:00: [place] [facility] every 4 Branch (four) hours as needed for Nausea and Vomiting (N/V). proMETHazin Yes [id number] 25mg Insert 1 [facility] 25 mg 7-11 [facility] suppository 00:00: [place] [facility] every 4 Branch (four) hours as needed for Nausea and Vomiting (N/V). proMETHazin Yes [id number] 25mg Insert 1 [facility] 25 mg 7-11 Supp[facility] of suppository 00:00: [place] [facility] every 4 Branch (four) hours as needed for Nausea and Vomiting (N/V). proMETHazin Yes [id number] 25mg Insert 1 [facility] 25 mg 7-11 [facility] of suppository 00:00: [place] [facility] every 4 Branch (four) hours as needed for Nausea and Vomiting (N/V). proMETHazin Yes [id number] 25mg Insert 1 [facility] 25 mg 7-11 [facility] suppository 00:00: [place] [facility] every 4 Branch (four) hours as needed for Nausea and Vomiting (N/V). proMETHazin Yes [id number] 25mg Insert 1 [facility] 25 mg 7-11 [facility] suppository 00:00: [place] [facility] every 4 Branch (four) hours as needed for Nausea and Vomiting (N/V). proMETHazin Yes [id number] 25mg Insert 1 [facility] 25 mg 7-11 Supp[facility] of suppository 00:00: [place] [facility] every 4 Branch (four) hours as needed for Nausea and Vomiting (N/V). proMETHazin Yes [id number] 25mg Insert 1 [facility] 25 mg 7-11 Supp[facility] of suppository 00:00: [place] [facility] every 4 Branch (four) hours as needed for Nausea and Vomiting (N/V). proMETHazin 2-0 Yes [id number] 25mg Insert 1 [facility] 25 mg 7-11 [facility] suppository 00:00: [place] [facility] every 4 Branch (four) hours as needed for Nausea and Vomiting (N/V). proMETHazin 2-0 Yes [id number] 25mg Insert 1 [facility] 25 mg 7-11 [facility] suppository 00:00: [place] [facility] every 4 Branch (four) hours as needed for Nausea and Vomiting (N/V). haloperidoL 2-0 Yes [id number] .5mg Take 1 [facility] 0.5 mg 7-08 tablet by ity of tablet 00:00: mouth (two) Medical times Branch daily. haloperidoL 2-0 Yes [id number] .5mg Take 1 [facility] 0.5 mg 7-08 tablet by ity of tablet 00:00: mouth (two) Medical times Branch daily. haloperidoL 2022-0 Yes [id number] .5mg Take 1 [facility] 0.5 mg 7-08 tablet by ity of tablet 00:00: mouth (two) Medical times Branch daily. haloperidoL 2-0 Yes [id number] .5mg Take 1 [facility] 0.5 mg 7-08 tablet by ity of tablet 00:00: mouth (two) Medical times Branch daily. haloperidoL 2-0 Yes [id number] .5mg Take 1 [facility] 0.5 mg 7-08 tablet by ity of tablet 00:00: mouth (two) Medical times Branch daily. haloperidoL 2022-0 Yes [id number] .5mg Take 1 [facility] 0.5 mg 7-08 tablet by ity of tablet 00:00: mouth (two) Medical times Branch daily. haloperidoL 2022-0 Yes [id number] .5mg Take 1 [facility] 0.5 mg 7-08 tablet by ity of tablet 00:00: mouth 2 (two) Medical times Branch daily. haloperidoL 2022-0 Yes [id number] .5mg Take 1 [facility] 0.5 mg 7-08 tablet by ity of tablet 00:00: mouth 2 [place] 00 (two) Medical times Branch daily. haloperidoL 2022-0 Yes [id number] .5mg Take 1 [facility] 0.5 mg 7-08 tablet by ity of tablet 00:00: mouth 2 [place] 00 (two) Medical times Branch daily. haloperidoL 2022-0 Yes [id number] .5mg Take 1 [facility] 0.5 mg 7-08 tablet by ity of tablet 00:00: mouth 2 [place] 00 (two) Medical times Branch daily. haloperidoL 2022-0 Yes [id number] .5mg Take 1 [facility] 0.5 mg 7-08 tablet by ity of tablet 00:00: mouth 2 [place] 00 (two) Medical times Branch daily. haloperidoL 2022-0 2022- No [id number] .5mg Take 1 [facility] 0.5 mg 7-08 10-18 tablet by ity of tablet 00:00: 00:00 mouth 2 [place] 00 :00 (two) Medical times Branch daily. haloperidoL 2022-0 2022- No [id number] .5mg Take 1 [facility] 0.5 mg 7-08 10-18 tablet by ity of tablet 00:00: 00:00 mouth 2 [place] 00 :00 (two) Medical times Branch daily. sildenafiL 2022-0 Yes 100mg 100 mg as U nivers 100 mg 6-17 needed. ity of tablet 09:23: [place] [address] Medical Branch gabapentin 2022-0 Yes 100mg Take 100 Un darius 100 mg 6-17 mg by ity of capsule 09:23: mouth 3 [place] [address] (three) Medical times Branch daily. metFORMIN 2022-0 Yes 500mg Take 500 [facility] vers 500 mg 6-17 mg by ity of tablet 09:23: mouth 2 [place] [address] (two) Medical times Branch daily with meals. Takes 2 tablets twice daily rosuvastati 2022-0 Yes 20mg Take 20 mg [facility] n 20 mg 6-17 by mouth ity of tablet 09:23: at [place] [address] bedtime. Medical Branch omeprazole 2022-0 Yes 20mg Take 20 mg U nivers 20 mg 6-17 by mouth ity of capsule 09:23: daily. [place] [address] Takes 2 Medical tablets Branch daily sildenafiL 2022-0 Yes 100mg 100 mg as U nivers 100 mg 6-17 needed. ity of tablet 09:23: [place] [address] Medical Branch gabapentin 2022-0 Yes 100mg Take 100 Un darius 100 mg 6-17 mg by ity of capsule 09:23: mouth 3 [place] [address] (three) Medical times Branch daily. metFORMIN 2022-0 Yes 500mg Take 500 [facility] vers 500 mg 6-17 mg by ity of tablet 09:23: mouth 2 [place] [address] (two) Medical times Branch daily with meals. Takes 2 tablets twice daily rosuvastati 2022-0 Yes 20mg Take 20 mg [facility] n 20 mg 6-17 by mouth ity of tablet 09:23: at [place] [address] bedtime. Medical Branch omeprazole 2022-0 Yes 20mg Take 20 mg U nivers 20 mg 6-17 by mouth ity of capsule 09:23: daily. [place] [address] Takes 2 Medical tablets Branch daily sildenafiL 2022-0 Yes 100mg 100 mg as U nivers 100 mg 6-17 needed. ity of tablet 09:23: [place] [address] Medical Branch gabapentin 2022-0 Yes 100mg Take 100 Un darius 100 mg 6-17 mg by ity of capsule 09:23: mouth 3 [place] [address] (three) Medical times Branch daily. metFORMIN 2022-0 Yes 500mg Take 500 [facility] vers 500 mg 6-17 mg by ity of tablet 09:23: mouth 2 [place] [address] (two) Medical times Branch daily with meals. Takes 2 tablets twice daily rosuvastati 2022-0 Yes 20mg Take 20 mg [facility] n 20 mg 6-17 by mouth ity of tablet 09:23: at [place] [address] bedtime. Medical Branch omeprazole 2022-0 Yes 20mg Take 20 mg U nivers 20 mg 6-17 by mouth ity of capsule 09:23: daily. [place] [address] Takes 2 Medical tablets Branch daily sildenafiL 2022-0 Yes 100mg 100 mg as U nivers 100 mg 6-17 needed. ity of tablet 09:23: [place] [address] Medical Branch gabapentin 2022-0 Yes 100mg Take 100 Un darius 100 mg 6-17 mg by ity of capsule 09:23: mouth 3 [place] [address] (three) Medical times Branch daily. metFORMIN 2022-0 Yes 500mg Take 500 [facility] vers 500 mg 6-17 mg by ity of tablet 09:23: mouth 2 [place] [address] (two) Medical times Branch daily with meals. Takes 2 tablets twice daily rosuvastati 2022-0 Yes 20mg Take 20 mg [facility] n 20 mg 6-17 by mouth ity of tablet 09:23: at [place] [address] bedtime. Medical Branch omeprazole 2022-0 Yes 20mg Take 20 mg U nivers 20 mg 6-17 by mouth ity of capsule 09:23: daily. [place] [address] Takes 2 Medical tablets Branch daily sildenafiL 2022-0 Yes 100mg 100 mg as U nivers 100 mg 6-17 needed. ity of tablet 09:23: [place] [address] Medical Branch gabapentin 2022-0 Yes 100mg Take 100 Un darius 100 mg 6-17 mg by ity of capsule 09:23: mouth 3 [place] [address] (three) Medical times Branch daily. metFORMIN 2022-0 Yes 500mg Take 500 [facility] vers 500 mg 6-17 mg by ity of tablet 09:23: mouth 2 [place] [address] (two) Medical times [place] daily with meals. Takes 2 tablets twice daily rosuvastati 2022-0 Yes 20mg Take 20 mg [facility] n 20 mg 6-17 by mouth ity of tablet 09:23: at [place] [address] bedtime. Medical Branch omeprazole 2-0 Yes 20mg Take 20 mg U nivers 20 mg 6-17 by mouth ity of capsule 09:23: daily. [place] [address] Takes 2 Medical tablets Branch daily sildenafiL 2022-0 Yes 100mg 100 mg as U nivers 100 mg 6-17 needed. ity of tablet 09:23: [place] [address] Medical Branch gabapentin 2022-0 Yes 100mg Take 100 Un darius 100 mg 6-17 mg by ity of capsule 09:23: mouth 3 [place] [address] (three) Medical times Branch daily. metFORMIN 2022-0 Yes 500mg Take 500 [facility] vers 500 mg 6-17 mg by ity of tablet 09:23: mouth 2 [place] [address] (two) Medical times Branch daily with meals. Takes 2 tablets twice daily rosuvastati 2022-0 Yes 20mg Take 20 mg [facility] n 20 mg 6-17 by mouth ity of tablet 09:23: at [place] [address] bedtime. Medical Branch omeprazole 2022-0 Yes 20mg Take 20 mg U nivers 20 mg 6-17 by mouth ity of capsule 09:23: daily. [place] [address] Takes 2 Medical tablets Branch daily sildenafiL 2022-0 Yes 100mg 100 mg as U nivers 100 mg 6-17 needed. ity of tablet 09:23: [place] [address] Medical Branch gabapentin 2022-0 Yes 100mg Take 100 Un darius 100 mg 6-17 mg by ity of capsule 09:23: mouth 3 [place] [address] (three) Medical times Branch daily. metFORMIN 2022-0 Yes 500mg Take 500 [facility] vers 500 mg 6-17 mg by ity of tablet 09:23: mouth 2 [place] [address] (two) Medical times Branch daily with meals. Takes 2 tablets twice daily rosuvastati 2022-0 Yes 20mg Take 20 mg [facility] n 20 mg 6-17 by mouth ity of tablet 09:23: at [place] [address] bedtime. Medical Branch omeprazole 2022-0 Yes 20mg Take 20 mg U nivers 20 mg 6-17 by mouth ity of capsule 09:23: daily. [place] [address] Takes 2 Medical tablets Branch daily sildenafiL 2022-0 Yes 100mg 100 mg as U nivers 100 mg 6-17 needed. ity of tablet 09:23: [place] [address] Medical Branch gabapentin 2022-0 Yes 100mg Take 100 Un darius 100 mg 6-17 mg by ity of capsule 09:23: mouth 3 [place] [address] (three) Medical times Branch daily. metFORMIN 2022-0 Yes 500mg Take 500 [facility] vers 500 mg 6-17 mg by ity of tablet 09:23: mouth 2 [place] [address] (two) Medical times Branch daily with meals. Takes 2 tablets twice daily rosuvastati 2022-0 Yes 20mg Take 20 mg [facility] n 20 mg 6-17 by mouth ity of tablet 09:23: at [place] [address] bedtime. Medical Branch omeprazole 2022-0 Yes 20mg Take 20 mg U nivers 20 mg 6-17 by mouth ity of capsule 09:23: daily. [place] [address] Takes 2 Medical tablets Branch daily sildenafiL 2022-0 Yes 100mg 100 mg as U nivers 100 mg 6-17 needed. ity of tablet 09:23: [place] [address] Medical Branch gabapentin 2022-0 Yes 100mg Take 100 Un darius 100 mg 6-17 mg by ity of capsule 09:23: mouth 3 [place] [address] (three) Medical times Branch daily. metFORMIN 2022-0 Yes 500mg Take 500 [facility] vers 500 mg 6-17 mg by ity of tablet 09:23: mouth 2 [place] [address] (two) Medical times Branch daily with meals. Takes 2 tablets twice daily rosuvastati 2022-0 Yes 20mg Take 20 mg [facility] n 20 mg 6-17 by mouth ity of tablet 09:23: at [place] [address] bedtime. Medical Branch omeprazole 2022-0 Yes 20mg Take 20 mg U nivers 20 mg 6-17 by mouth ity of capsule 09:23: daily. [place] [address] Takes 2 Medical tablets Branch daily sildenafiL 2022-0 Yes 100mg 100 mg as U nivers 100 mg 6-17 needed. ity of tablet 09:23: [place] [address] Medical Branch gabapentin 2022-0 Yes 100mg Take 100 Un darius 100 mg 6-17 mg by ity of capsule 09:23: mouth 3 [place] [address] (three) Medical times Branch daily. metFORMIN 2022-0 Yes 500mg Take 500 [facility] vers 500 mg 6-17 mg by ity of tablet 09:23: mouth 2 [place] [address] (two) Medical times Branch daily with meals. Takes 2 tablets twice daily rosuvastati 2022-0 Yes 20mg Take 20 mg [facility] n 20 mg 6-17 by mouth ity of tablet 09:23: at [place] [address] bedtime. Medical Branch omeprazole 2022-0 Yes 20mg Take 20 mg U nivers 20 mg 6-17 by mouth ity of capsule 09:23: daily. [place] [address] Takes 2 Medical tablets Branch daily sildenafiL 2022-0 Yes 100mg 100 mg as U nivers 100 mg 6-17 needed. ity of tablet 09:23: [place] [address] Medical Branch gabapentin 2022-0 Yes 100mg Take 100 Un darius 100 mg 6-17 mg by ity of capsule 09:23: mouth 3 [place] [address] (three) Medical times Branch daily. metFORMIN 2022-0 Yes 500mg Take 500 [facility] vers 500 mg 6-17 mg by ity of tablet 09:23: mouth 2 [place] [address] (two) Medical times Branch daily with meals. Takes 2 tablets twice daily rosuvastati 2022-0 Yes 20mg Take 20 mg [facility] n 20 mg 6-17 by mouth ity of tablet 09:23: at [place] [address] bedtime. Medical Branch omeprazole 2022-0 Yes 20mg Take 20 mg U nivers 20 mg 6-17 by mouth ity of capsule 09:23: daily. [place] [address] Takes 2 Medical tablets Branch daily sildenafiL 2022-0 Yes 100mg 100 mg as U nivers 100 mg 6-17 needed. ity of tablet 09:23: [place] [address] Medical Branch metFORMIN 2022-0 Yes 500mg Take 500 Uni vers 500 mg 6-17 mg by ity of tablet 09:23: mouth 2 [place] [address] ([facility]) Medical times Branch daily with meals. Takes 2 tablets twice daily rosuvastati 2022-0 Yes 20mg Take 20 mg [facility] n 20 mg 6-17 by mouth ity of tablet 09:23: at [place] [address] bedtime. Medical Branch omeprazole 2022-0 Yes 20mg Take 20 mg U nivers 20 mg 6-17 by mouth ity of capsule 09:23: daily. [place] [address] Takes 2 Medical tablets Branch daily sildenafiL 2022-0 Yes 100mg 100 mg as U nivers 100 mg 6-17 needed. ity of tablet 09:23: [place] [address] Medical Branch metFORMIN 2022-0 Yes 500mg Take 500 Uni vers 500 mg 6-17 mg by ity of tablet 09:23: mouth 2 [place] [address] ([facility]) Medical times Branch daily with meals. Takes 2 tablets twice daily rosuvastati 2022-0 Yes 20mg Take 20 mg [facility] n 20 mg 6-17 by mouth ity of tablet 09:23: at [place] [address] bedtime. Medical Branch omeprazole 2-0 Yes 20mg Take 20 mg U nivers 20 mg 6-17 by mouth ity of capsule 09:23: daily. [place] [address] Takes 2 Medical tablets Branch daily sildenafiL 2-0 Yes 100mg 100 mg as U nivers 100 mg 6-17 needed. ity of tablet 09:23: [place] [address] Medical Branch metFORMIN 2022-0 Yes 500mg Take 500 Uni vers 500 mg 6-17 mg by ity of tablet 09:23: mouth 2 [place] [address] ([facility]) Medical times [place] daily with meals. Takes 2 tablets twice daily rosuvastati 2022-0 Yes 20mg Take 20 mg [facility] n 20 mg 6-17 by mouth ity of tablet 09:23: at [place] [address] bedtime. Medical Branch omeprazole 2022-0 Yes 20mg Take 20 mg U nivers 20 mg 6-17 by mouth ity of capsule 09:23: daily. [place] [address] Takes 2 Medical tablets Branch daily sildenafiL 2022-0 Yes 100mg 100 mg as U nivers 100 mg 6-17 needed. ity of tablet 09:23: [place] [id number] [facility] metFORMIN 2022-0 Yes 500mg Take 500 [facility] vers 500 mg 6-17 mg by ity of tablet 09:23: mouth 2 [place] [address] (two) Medical times Branch daily with meals. Takes 2 tablets twice daily rosuvastati 2022-0 Yes 20mg Take 20 mg [facility] n 20 mg 6-17 by mouth ity of tablet 09:23: at [place] [address] bedtime. [facility] omeprazole 2022-0 Yes 20mg Take 20 mg U nivers 20 mg 6-17 by mouth ity of capsule 09:23: daily. [place] [address] Takes 2 Medical tablets Branch daily sildenafiL 2022-0 Yes 100mg 100 mg as U nivers 100 mg 6-17 needed. ity of tablet 09:23: [place] [address] [facility] metFORMIN 2022-0 Yes 500mg Take 500 [facility] vers 500 mg 6-17 mg by ity of tablet 09:23: mouth 2 [place] [address] (two) Medical times Branch daily with meals. Takes 2 tablets twice daily rosuvastati 2022-0 Yes 20mg Take 20 mg [facility] n 20 mg 6-17 by mouth ity of tablet 09:23: at [place] [address] bedtime. [facility] omeprazole 2022-0 Yes 20mg Take 20 mg U nivers 20 mg 6-17 by mouth ity of capsule 09:23: daily. [place] [address] Takes 2 Medical tablets Branch daily sildenafiL 2022-0 Yes 100mg 100 mg as U nivers 100 mg 6-17 needed. ity of tablet 09:23: [place] [address] [facility] metFORMIN 2022-0 Yes 500mg Take 500 [facility] vers 500 mg 6-17 mg by ity of tablet 09:23: mouth 2 [place] [address] (two) Medical times Branch daily with meals. Takes 2 tablets twice daily rosuvastati 2022-0 Yes 20mg Take 20 mg [facility] n 20 mg 6-17 by mouth ity of tablet 09:23: at [place] [address] bedtime. [facility] omeprazole 2022-0 Yes 20mg Take 20 mg U nivers 20 mg 6-17 by mouth ity of capsule 09:23: daily. [place] [address] Takes 2 Medical tablets Branch daily sildenafiL 2022-0 Yes 100mg 100 mg as U nivers 100 mg 6-17 needed. ity of tablet 09:23: [place] [address] [facility] metFORMIN 2022-0 Yes 500mg Take 500 [facility] vers 500 mg 6-17 mg by ity of tablet 09:23: mouth 2 [place] [address] (two) Medical times Branch daily with meals. Takes 2 tablets twice daily rosuvastati 2022-0 Yes 20mg Take 20 mg [facility] n 20 mg 6-17 by mouth ity of tablet 09:23: at [place] [address] bedtime. [facility] omeprazole 2022-0 Yes 20mg Take 20 mg U nivers 20 mg 6-17 by mouth ity of capsule 09:23: daily. [place] [address] Takes 2 Medical tablets Branch daily sildenafiL 2022-0 Yes 100mg 100 mg as U nivers 100 mg 6-17 needed. ity of tablet 09:23: [place] [address] [facility] metFORMIN 2022-0 Yes 500mg Take 500 [facility] vers 500 mg 6-17 mg by ity of tablet 09:23: mouth 2 [place] [address] (two) Medical times Branch daily with meals. Takes 2 tablets twice daily rosuvastati 2022-0 Yes 20mg Take 20 mg [facility] n 20 mg 6-17 by mouth ity of tablet 09:23: at [place] [address] bedtime. [facility] omeprazole 2022-0 Yes 20mg Take 20 mg [facility] nivers 20 mg 6-17 by mouth ity of capsule 09:23: daily. [place] [address] Takes 2 Medical tablets Branch daily sildenafiL 2022-0 Yes 100mg 100 mg as U nivers 100 mg 6-17 needed. ity of tablet 09:23: [place] [address] [facility] metFORMIN 2022-0 Yes 500mg Take 500 [facility] vers 500 mg 6-17 mg by ity of tablet 09:23: mouth 2 [place] [address] (two) Medical times [place] daily with meals. Takes 2 tablets twice daily rosuvastati 2022-0 Yes 20mg Take 20 mg [facility] n 20 mg 6-17 by mouth ity of tablet 09:23: at [place] [address] bedtime. [facility] omeprazole 2022-0 Yes 20mg Take 20 mg [facility] nivers 20 mg 6-17 by mouth ity of capsule 09:23: daily. [place] [address] Takes 2 Medical tablets Branch daily sildenafiL 2022-0 Yes 100mg 100 mg as U nivers 100 mg 6-17 needed. ity of tablet 09:23: [place] [address] [facility] rosuvastati 2022-0 Yes 20mg Take 20 mg [facility] n 20 mg 6-17 by mouth ity of tablet 09:23: at [place] [address] bedtime. [facility] omeprazole 2022-0 Yes 20mg Take 20 mg [facility] nivers 20 mg 6-17 by mouth ity of capsule 09:23: daily. [place] [address] Takes 2 Medical tablets Branch daily sildenafiL 2022-0 Yes 100mg 100 mg as U nivers 100 mg 6-17 needed. ity of tablet 09:23: [place] [address] [facility] rosuvastati 2-0 Yes 20mg Take 20 mg [facility] n 20 mg 6-17 by mouth ity of tablet 09:23: at [place] [address] bedtime. [facility] omeprazole 2-0 Yes 20mg Take 20 mg [facility] nivers 20 mg 6-17 by mouth ity of capsule 09:23: daily. [place] [address] Takes 2 Medical tablets Branch daily sildenafiL 2021-0 Yes 100mg 100 mg as U nivers 100 mg 6-17 needed. ity of tablet 09:23: [place] [address] [facility] rosuvastati 2021-0 Yes 20mg Take 20 mg [facility] n 20 mg 6-17 by mouth ity of tablet 09:23: at [place] [address] bedtime. [facility] omeprazole 2021-0 Yes 20mg Take 20 mg [facility] nivers 20 mg 6-17 by mouth ity of capsule 09:23: daily. [place] [address] Takes 2 Medical tablets Branch daily sildenafiL 2021-0 Yes 100mg 100 mg as U nivers 100 mg 6-17 needed. ity of tablet 09:23: [address] Branch rosuvastati 2021-0 Yes 20mg Take 20 mg [facility] n 20 mg 6-17 by mouth ity of tablet 09:23: at [place] [address] bedtime. [facility] omeprazole 2021-0 Yes 20mg Take 20 mg U nivers 20 mg 6-17 by mouth ity of capsule 09:23: daily. [place] [address] Takes 2 Medical tablets Branch daily sildenafiL 2021-0 Yes 100mg 100 mg as U nivers 100 mg 6-17 needed. ity of tablet 09:23: [address] Branch rosuvastati 2-0 Yes 20mg Take 20 mg [facility] n 20 mg 6-17 by mouth ity of tablet 09:23: at [place] [address] bedtime. [facility] omeprazole 2-0 Yes 20mg Take 20 mg U nivers 20 mg 6-17 by mouth ity of capsule 09:23: daily. [place] [address] Takes 2 Medical tablets Branch daily sildenafiL 2-0 Yes 100mg 100 mg as U nivers 100 mg 6-17 needed. ity of tablet 09:23: [address] Branch rosuvastati 2-0 Yes 20mg Take 20 mg [facility] n 20 mg 6-17 by mouth ity of tablet 09:23: at [place] [address] bedtime. [facility] omeprazole 2022-0 Yes 20mg Take 20 mg [facility] nivers 20 mg 6-17 by mouth ity of capsule 09:23: daily. [place] [address] Takes 2 Medical tablets [facility] daily sildenafiL 2022-0 Yes 100mg 100 mg as U nivers 100 mg 6-17 needed. ity of tablet 09:23: [place] [address] [facility] rosuvastati 2022-0 Yes 20mg Take 20 mg [facility] n 20 mg 6-17 by mouth ity of tablet 09:23: at [place] [address] bedtime. [facility] omeprazole 2022-0 Yes 20mg Take 20 mg [facility] nivers 20 mg 6-17 by mouth ity of capsule 09:23: daily. [place] [address] Takes 2 Medical tablets Branch daily sildenafiL 2-0 Yes 100mg 100 mg as U nivers 100 mg 6-17 needed. ity of tablet 09:23: [place] [address] [facility] rosuvastati 2022-0 Yes 20mg Take 20 mg [facility] n 20 mg 6-17 by mouth ity of tablet 09:23: at [place] [address] bedtime. [facility] omeprazole 2-0 Yes 20mg Take 20 mg [facility] nivers 20 mg 6-17 by mouth ity of capsule 09:23: daily. [place] [address] Takes 2 Medical tablets Branch daily sildenafiL 2-0 Yes 100mg 100 mg as U nivers 100 mg 6-17 needed. ity of tablet 09:23: [place] [address] [facility] rosuvastati 2022-0 Yes 20mg Take 20 mg [facility] n 20 mg 6-17 by mouth ity of tablet 09:23: at [place] [address] bedtime. [facility] omeprazole 2022-0 Yes 20mg Take 20 mg [facility] nivers 20 mg 6-17 by mouth ity of capsule 09:23: daily. [place] [address] Takes 2 Medical tablets Branch daily sildenafiL 2022-0 Yes 100mg 100 mg as U nivers 100 mg 6-17 needed. ity of tablet 09:23: [place] [address] [facility] rosuvastati 2022-0 Yes 20mg Take 20 mg [facility] n 20 mg 6-17 by mouth ity of tablet 09:23: at [place] [address] bedtime. [facility] omeprazole 2022-0 Yes 20mg Take 20 mg [facility] nivers 20 mg 6-17 by mouth ity of capsule 09:23: daily. [place] [address] Takes 2 Medical tablets Branch daily sildenafiL 2022-0 Yes 100mg 100 mg as [facility] nivers 100 mg 6-17 needed. ity of tablet 09:23: [place] [address] [facility] rosuvastati 2-0 Yes 20mg Take 20 mg [facility] n 20 mg 6-17 by mouth ity of tablet 09:23: at [place] [address] bedtime. [facility] omeprazole 2-0 Yes 20mg Take 20 mg [facility] nivers 20 mg 6-17 by mouth ity of capsule 09:23: daily. [place] [address] Takes 2 Medical tablets Branch daily sildenafiL 2-0 Yes 100mg 100 mg as [facility] nivers 100 mg 6-17 needed. ity of tablet 09:23: [place] [address] [facility] rosuvastati 2-0 Yes 20mg Take 20 mg [facility] n 20 mg 6-17 by mouth ity of tablet 09:23: at [place] [address] bedtime. [facility] omeprazole 2-0 Yes 20mg Take 20 mg [facility] nivers 20 mg 6-17 by mouth ity of capsule 09:23: daily. [place] [address] Takes 2 Medical tablets [facility] daily sildenafiL 2021-0 Yes 100mg 100 mg as [facility] nivers 100 mg 6-17 needed. ity of tablet 09:23: [place] [address] [facility] rosuvastati 2-0 Yes 20mg Take 20 mg [facility] n 20 mg 6-17 by mouth ity of tablet 09:23: at [place] [address] bedtime. [facility] omeprazole 2021-0 Yes 20mg Take 20 mg [facility] nivers 20 mg 6-17 by mouth ity of capsule 09:23: daily. [place] [address] Takes 2 Medical tablets [facility] daily sildenafiL 2-0 Yes 100mg 100 mg as [facility] nivers 100 mg 6-17 needed. ity of tablet 09:23: [place] [address] [facility] rosuvastati 2022-0 Yes 20mg Take 20 mg [facility] n 20 mg 6-17 by mouth ity of tablet 09:23: at [place] [address] bedtime. [facility] omeprazole 2-0 Yes 20mg Take 20 mg [facility] nivers 20 mg 6-17 by mouth ity of capsule 09:23: daily. [place] [address] Takes 2 Medical tablets [facility] daily sildenafiL 2022-0 Yes 100mg 100 mg as U nivers 100 mg 6-17 needed. ity of tablet 09:23: [place] [address] [facility] rosuvastati 2022-0 Yes 20mg Take 20 mg [facility] n 20 mg 6-17 by mouth ity of tablet 09:23: at [place] [address] bedtime. [facility] omeprazole 2022-0 Yes 20mg Take 20 mg [facility] nivers 20 mg 6-17 by mouth ity of capsule 09:23: daily. [place] [address] Takes 2 Medical tablets Branch daily sildenafiL 2022-0 Yes 100mg 100 mg as U nivers 100 mg 6-17 needed. ity of tablet 09:23: [place] [address] [facility] rosuvastati 2021-0 Yes 20mg Take 20 mg [facility] n 20 mg 6-17 by mouth ity of tablet 09:23: at [place] [address] bedtime. [facility] omeprazole 2-0 Yes 20mg Take 20 mg [facility] nivers 20 mg 6-17 by mouth ity of capsule 09:23: daily. [place] [address] Takes 2 Medical tablets [facility] daily sildenafiL 2-0 Yes 100mg 100 mg as U nivers 100 mg 6-17 needed. ity of tablet 09:23: [place] [address] [facility] Branch rosuvastati 2-0 Yes 20mg Take 20 mg [facility] n 20 mg 6-17 by mouth ity of tablet 09:23: at [place] [address] bedtime. [facility] omeprazole 2-0 Yes 20mg Take 20 mg [facility] nivers 20 mg 6-17 by mouth ity of capsule 09:23: daily. [place] [address] Takes 2 Medical tablets Branch daily sildenafiL 2-0 Yes 100mg 100 mg as U nivers 100 mg 6-17 needed. ity of tablet 09:23: [place] [address] [facility] Branch rosuvastati 2022-0 Yes 20mg Take 20 mg [facility] n 20 mg 6-17 by mouth ity of tablet 09:23: at [place] [address] bedtime. [facility] omeprazole 2-0 Yes 20mg Take 20 mg U nivers 20 mg 6-17 by mouth ity of capsule 09:23: daily. [place] [address] Takes 2 Medical tablets Branch daily sildenafiL 2-0 Yes 100mg 100 mg as U nivers 100 mg 6-17 needed. ity of tablet 09:23: [place] [address] [facility] rosuvastati 2022-0 Yes 20mg Take 20 mg [facility] n 20 mg 6-17 by mouth ity of tablet 09:23: at [place] [address] bedtime. [facility] omeprazole 2022-0 Yes 20mg Take 20 mg [facility] nivers 20 mg 6-17 by mouth ity of capsule 09:23: daily. [place] [address] Takes 2 Medical tablets Branch daily sildenafiL 2022-0 Yes 100mg 100 mg as U nivers 100 mg 6-17 needed. ity of tablet 09:23: [place] [address] [facility] rosuvastati 2-0 Yes 20mg Take 20 mg [facility] n 20 mg 6-17 by mouth ity of tablet 09:23: at [place] [address] bedtime. [facility] omeprazole 2022-0 Yes 20mg Take 20 mg U nivers 20 mg 6-17 by mouth ity of capsule 09:23: daily. [place] [address] Takes 2 Medical tablets Branch daily sildenafiL 2022-0 Yes 100mg 100 mg as U nivers 100 mg 6-17 needed. ity of tablet 09:23: [place] [address] [facility] rosuvastati 2021-0 Yes 20mg Take 20 mg [facility] n 20 mg 6-17 by mouth ity of tablet 09:23: at [place] [address] bedtime. [facility] omeprazole 2-0 Yes 20mg Take 20 mg [facility] nivers 20 mg 6-17 by mouth ity of capsule 09:23: daily. [place] [address] Takes 2 Medical tablets Branch daily sildenafiL 2-0 Yes 100mg 100 mg as U nivers 100 mg 6-17 needed. ity of tablet 09:23: [place] [address] [facility] rosuvastati 2-0 Yes 20mg Take 20 mg [facility] n 20 mg 6-17 by mouth ity of tablet 09:23: at [place] [address] bedtime. [facility] omeprazole 2-0 Yes 20mg Take 20 mg U nivers 20 mg 6-17 by mouth ity of capsule 09:23: daily. [place] [address] Takes 2 Medical tablets Branch daily sildenafiL 2-0 Yes 100mg 100 mg as U nivers 100 mg 6-17 needed. ity of tablet 09:23: [place] [address] [facility] rosuvastati 2022-0 Yes 20mg Take 20 mg [facility] n 20 mg 6-17 by mouth ity of tablet 09:23: at [place] [address] bedtime. [facility] omeprazole 2022-0 Yes 20mg Take 20 mg [facility] nivers 20 mg 6-17 by mouth ity of capsule 09:23: daily. [place] [address] Takes 2 Medical tablets Branch daily sildenafiL 2022-0 Yes 100mg 100 mg as U nivers 100 mg 6-17 needed. ity of tablet 09:23: [place] [address] [facility] rosuvastati 2022-0 Yes 20mg Take 20 mg [facility] n 20 mg 6-17 by mouth ity of tablet 09:23: at [place] [address] bedtime. [facility] omeprazole 2-0 Yes 20mg Take 20 mg U nivers 20 mg 6-17 by mouth ity of capsule 09:23: daily. [place] [address] Takes 2 Medical tablets Branch daily sildenafiL 2-0 Yes 100mg 100 mg as U nivers 100 mg 6-17 needed. ity of tablet 09:23: [place] [address] [facility] rosuvastati 2021-0 Yes 20mg Take 20 mg [facility] n 20 mg 6-17 by mouth ity of tablet 09:23: at [place] [address] bedtime. [facility] omeprazole 2-0 Yes 20mg Take 20 mg [facility] nivers 20 mg 6-17 by mouth ity of capsule 09:23: daily. [place] [address] Takes 2 Medical tablets Branch daily sildenafiL 2021-0 Yes 100mg 100 mg as U nivers 100 mg 6-17 needed. ity of tablet 09:23: [place] [address] [facility] rosuvastati 2021-0 Yes 20mg Take 20 mg [facility] n 20 mg 6-17 by mouth ity of tablet 09:23: at [place] [address] bedtime. [facility] omeprazole 2-0 Yes 20mg Take 20 mg U nivers 20 mg 6-17 by mouth ity of capsule 09:23: daily. [place] [address] Takes 2 Medical tablets Branch daily sildenafiL 2021-0 Yes 100mg 100 mg as U nivers 100 mg 6-17 needed. ity of tablet 09:23: [place] [address] [facility] Branch rosuvastati 2-0 Yes 20mg Take 20 mg [facility] n 20 mg 6-17 by mouth ity of tablet 09:23: at [place] [address] bedtime. [facility] omeprazole 2-0 Yes 20mg Take 20 mg [facility] nivers 20 mg 6-17 by mouth ity of capsule 09:23: daily. [place] [address] Takes 2 Medical tablets Branch daily sildenafiL 2-0 Yes 100mg 100 mg as U nivers 100 mg 6-17 needed. ity of tablet 09:23: [place] [address] [facility] rosuvastati 2022-0 Yes 20mg Take 20 mg [facility] n 20 mg 6-17 by mouth ity of tablet 09:23: at [place] [address] bedtime. [facility] omeprazole 2022-0 Yes 20mg Take 20 mg U nivers 20 mg 6-17 by mouth ity of capsule 09:23: daily. [place] [address] Takes 2 Medical tablets Branch daily sildenafiL 2022-0 Yes 100mg 100 mg as U nivers 100 mg 6-17 needed. ity of tablet 09:23: [place] [address] [facility] Branch omeprazole 2022-0 Yes 20mg Take 20 mg U nivers 20 mg 6-17 by mouth ity of capsule 09:23: daily. [place] [address] Takes 2 Medical tablets Branch daily sildenafiL 2022-0 Yes 100mg 100 mg as U nivers 100 mg 6-17 needed. ity of tablet 09:23: [place] [address] [facility] Branch omeprazole 2022-0 Yes 20mg Take 20 mg U nivers 20 mg 6-17 by mouth ity of capsule 09:23: daily. [place] [address] Takes 2 Medical tablets Branch daily sildenafiL 2022-0 Yes 100mg 100 mg as U nivers 100 mg 6-17 needed. ity of tablet 09:23: [address] Branch omeprazole 2022-0 Yes 20mg Take 20 mg U nivers 20 mg 6-17 by mouth ity of capsule 09:23: daily. [place] [address] Takes 2 Medical tablets Branch daily sildenafiL 2022-0 Yes 100mg 100 mg as U nivers 100 mg 6-17 needed. ity of tablet 09:23: [address] Branch omeprazole 2022-0 Yes 20mg Take 20 mg U nivers 20 mg 6-17 by mouth ity of capsule 09:23: daily. [place] [address] Takes 2 Medical tablets Branch daily sildenafiL 2022-0 Yes 100mg 100 mg as U nivers 100 mg 6-17 needed. ity of tablet 09:23: [address] omeprazole 2022-0 Yes 20mg Take 20 mg U nivers 20 mg 6-17 by mouth ity of capsule 09:23: daily. [place] [address] Takes 2 Medical tablets Branch daily sildenafiL 2022-0 Yes 100mg 100 mg as U nivers 100 mg 6-17 needed. ity of tablet 09:23: [address] Branch omeprazole 2022-0 Yes 20mg Take 20 mg U nivers 20 mg 6-17 by mouth ity of capsule 09:23: daily. [place] [address] Takes 2 Medical tablets Branch daily sildenafiL 2022-0 Yes 100mg 100 mg as U nivers 100 mg 6-17 needed. ity of tablet 09:23: [address] Branch omeprazole 2022-0 Yes 20mg Take 20 mg U nivers 20 mg 6-17 by mouth ity of capsule 09:23: daily. [place] [address] Takes 2 Medical tablets Branch daily sildenafiL 2022-0 Yes 100mg 100 mg as U nivers 100 mg 6-17 needed. ity of tablet 09:23: [address] Branch omeprazole 2022-0 Yes 20mg Take 20 mg U nivers 20 mg 6-17 by mouth ity of capsule 09:23: daily. [place] [address] Takes 2 Medical tablets Branch daily sildenafiL 2022-0 Yes 100mg 100 mg as U nivers 100 mg 6-17 needed. ity of tablet 09:23: [address] Branch omeprazole 2022-0 Yes 20mg Take 20 mg U nivers 20 mg 6-17 by mouth ity of capsule 09:23: daily. [place] [address] Takes 2 Medical tablets Branch daily sildenafiL 2022-0 Yes 100mg 100 mg as U nivers 100 mg 6-17 needed. ity of tablet 09:23: [address] omeprazole 2022-0 Yes 20mg Take 20 mg U nivers 20 mg 6-17 by mouth ity of capsule 09:23: daily. [place] [address] Takes 2 Medical tablets Branch daily sildenafiL 2022-0 Yes 100mg 100 mg as U nivers 100 mg 6-17 needed. ity of tablet 09:23: [address] omeprazole 2022-0 Yes 20mg Take 20 mg U nivers 20 mg 6-17 by mouth ity of capsule 09:23: daily. [place] [address] Takes 2 Medical tablets Branch daily sildenafiL 2022-0 Yes 100mg 100 mg as U nivers 100 mg 6-17 needed. ity of tablet 09:23: [address] omeprazole 2022-0 Yes 20mg Take 20 mg U nivers 20 mg 6-17 by mouth ity of capsule 09:23: daily. [place] [address] Takes 2 Medical tablets Branch daily sildenafiL 2022-0 Yes 100mg 100 mg as U nivers 100 mg 6-17 needed. ity of tablet 09:23: [address] omeprazole 2022-0 Yes 20mg Take 20 mg U nivers 20 mg 6-17 by mouth ity of capsule 09:23: daily. [place] [address] Takes 2 Medical tablets Branch daily sildenafiL 2022-0 Yes 100mg 100 mg as U nivers 100 mg 6-17 needed. ity of tablet 09:23: [place] [facility] omeprazole 2022-0 Yes 20mg Take 20 mg [facility] nivers 20 mg 6-17 by mouth ity of capsule 09:23: daily. [place] [address] Takes 2 Medical tablets Branch daily sildenafiL 2022-0 Yes 100mg 100 mg as U nivers 100 mg 6-17 needed. ity of tablet 09:23: [address] omeprazole 2022-0 Yes 20mg Take 20 mg U nivers 20 mg 6-17 by mouth ity of capsule 09:23: daily. [place] [address] Takes 2 Medical tablets Branch daily sildenafiL 2022-0 Yes 100mg 100 mg as U nivers 100 mg 6-17 needed. ity of tablet 09:23: [address] Branch omeprazole 2022-0 Yes 20mg Take 20 mg U nivers 20 mg 6-17 by mouth ity of capsule 09:23: daily. [place] [address] Takes 2 Medical tablets Branch daily sildenafiL 2022-0 Yes 100mg 100 mg as U nivers 100 mg 6-17 needed. ity of tablet 09:23: [address] omeprazole 2022-0 Yes 20mg Take 20 mg U nivers 20 mg 6-17 by mouth ity of capsule 09:23: daily. [place] [address] Takes 2 Medical tablets Branch daily sildenafiL 2022-0 Yes 100mg 100 mg as U nivers 100 mg 6-17 needed. ity of tablet 09:23: [address] omeprazole 2022-0 Yes 20mg Take 20 mg U nivers 20 mg 6-17 by mouth ity of capsule 09:23: daily. [place] [address] Takes 2 Medical tablets Branch daily sildenafiL 2022-0 Yes 100mg 100 mg as U nivers 100 mg 6-17 needed. ity of tablet 09:23: [address] omeprazole 2022-0 Yes 20mg Take 20 mg U nivers 20 mg 6-17 by mouth ity of capsule 09:23: daily. [place] [address] Takes 2 Medical tablets Branch daily sildenafiL 2022-0 Yes 100mg 100 mg as U nivers 100 mg 6-17 needed. ity of tablet 09:23: [address] Branch omeprazole 2022-0 Yes 20mg Take 20 mg U nivers 20 mg 6-17 by mouth ity of capsule 09:23: daily. [place] [address] Takes 2 Medical tablets Branch daily sildenafiL 2022-0 Yes 100mg 100 mg as U nivers 100 mg 6-17 needed. ity of tablet 09:23: [address] Branch omeprazole 2022-0 Yes 20mg Take 20 mg U nivers 20 mg 6-17 by mouth ity of capsule 09:23: daily. [place] [address] Takes 2 Medical tablets Branch daily sildenafiL 2022-0 Yes 100mg 100 mg as U nivers 100 mg 6-17 needed. ity of tablet 09:23: [address] omeprazole 2022-0 Yes 20mg Take 20 mg U nivers 20 mg 6-17 by mouth ity of capsule 09:23: daily. [place] [address] Takes 2 Medical tablets Branch daily sildenafiL 2022-0 Yes 100mg 100 mg as U nivers 100 mg 6-17 needed. ity of tablet 09:23: [address] omeprazole 2022-0 Yes 20mg Take 20 mg U nivers 20 mg 6-17 by mouth ity of capsule 09:23: daily. [place] [address] Takes 2 Medical tablets Branch daily sildenafiL 2022-0 Yes 100mg 100 mg as U nivers 100 mg 6-17 needed. ity of tablet 09:23: [address] omeprazole 2022-0 Yes 20mg Take 20 mg U nivers 20 mg 6-17 by mouth ity of capsule 09:23: daily. [place] [address] Takes 2 Medical tablets Branch daily sildenafiL 2022-0 Yes 100mg 100 mg as U nivers 100 mg 6-17 needed. ity of tablet 09:23: [address] omeprazole 2022-0 Yes 20mg Take 20 mg U nivers 20 mg 6-17 by mouth ity of capsule 09:23: daily. [place] [address] Takes 2 Medical tablets Branch daily sildenafiL 2022-0 Yes 100mg 100 mg as U nivers 100 mg 6-17 needed. ity of tablet 09:23: [address] omeprazole 2022-0 Yes 20mg Take 20 mg U nivers 20 mg 6-17 by mouth ity of capsule 09:23: daily. [place] [address] Takes 2 Medical tablets Branch daily sildenafiL 2022-0 Yes 100mg 100 mg as U nivers 100 mg 6-17 needed. ity of tablet 09:23: [address] omeprazole 2022-0 Yes 20mg Take 20 mg U nivers 20 mg 6-17 by mouth ity of capsule 09:23: daily. [place] [address] Takes 2 Medical tablets Branch daily sildenafiL 2022-0 Yes 100mg 100 mg as U nivers 100 mg 6-17 needed. ity of tablet 09:23: [address] omeprazole 2-0 Yes 20mg Take 20 mg U nivers 20 mg 6-17 by mouth ity of capsule 09:23: daily. [place] [address] Takes 2 Medical tablets [place] daily sildenafiL 2022-0 Yes 100mg 100 mg as U nivers 100 mg 6-17 needed. ity of tablet 09:23: [address] omeprazole 2-0 Yes 20mg Take 20 mg U nivers 20 mg 6-17 by mouth ity of capsule 09:23: daily. [place] [address] Takes 2 Medical tablets [place] daily sildenafiL 2-0 Yes 100mg 100 mg as U nivers 100 mg 6-17 needed. ity of tablet 09:23: [address] sildenafiL 2-0 Yes 100mg 100 mg as U nivers 100 mg 6-17 needed. ity of tablet 09:23: [address] sildenafiL 2-0 Yes 100mg 100 mg as U nivers 100 mg 6-17 needed. ity of tablet 09:23: [address] sildenafiL 2-0 Yes 100mg 100 mg as U nivers 100 mg 6-17 needed. ity of tablet 09:23: [address] sildenafiL 2-0 Yes 100mg 100 mg as U nivers 100 mg 6-17 needed. ity of tablet 09:23: [address] sildenafiL 2-0 Yes 100mg 100 mg as U nivers 100 mg 6-17 needed. ity of tablet 09:23: [address] sildenafiL 2-0 Yes 100mg 100 mg as U nivers 100 mg 6-17 needed. ity of tablet 09:23: [address] sildenafiL 2022-0 Yes 100mg 100 mg as U nivers 100 mg 6-17 needed. ity of tablet 09:23: [address] sildenafiL 2022-0 Yes 100mg 100 mg as U nivers 100 mg 6-17 needed. ity of tablet 09:23: [address] sildenafiL 2022-0 Yes 100mg 100 mg as U nivers 100 mg 6-17 needed. ity of tablet 09:23: [address] sildenafiL 2022-0 Yes 100mg 100 mg as U nivers 100 mg 6-17 needed. ity of tablet 09:23: [address] sildenafiL 2022-0 Yes 100mg 100 mg as U nivers 100 mg 6-17 needed. ity of tablet 09:23: [address] sildenafiL 2021-0 Yes 100mg 100 mg as U nivers 100 mg 6-17 needed. ity of tablet 09:23: [address] sildenafiL 2021-0 Yes 100mg 100 mg as U nivers 100 mg 6-17 needed. ity of tablet 09:23: [address] sildenafiL 2021-0 Yes 100mg 100 mg as U nivers 100 mg 6-17 needed. ity of tablet 09:23: [address] sildenafiL 2021-0 Yes 100mg 100 mg as U nivers 100 mg 6-17 needed. ity of tablet 09:23: [address] sildenafiL 2021-0 Yes 100mg 100 mg as U nivers 100 mg 6-17 needed. ity of tablet 09:23: [address] sildenafiL 2021-0 Yes 100mg 100 mg as U nivers 100 mg 6-17 needed. ity of tablet 09:23: [address] sildenafiL 2021-0 Yes 100mg 100 mg as [facility] nivers 100 mg 6-17 needed. ity of tablet 09:23: [address] sildenafiL 2021-0 Yes 100mg 100 mg as U nivers 100 mg 6-17 needed. ity of tablet 09:23: [address] sildenafiL 2021-0 Yes 100mg 100 mg as [facility] nivers 100 mg 6-17 needed. ity of tablet 09:23: [address] sildenafiL 2021-0 Yes 100mg 100 mg as U nivers 100 mg 6-17 needed. ity of tablet 09:23: [address] sildenafiL 2021-0 Yes 100mg 100 mg as U nivers 100 mg 6-17 needed. ity of tablet 09:23: [address] sildenafiL 2021-0 Yes 100mg 100 mg as U nivers 100 mg 6-17 needed. ity of tablet 09:23: [address] sildenafiL 2021-0 Yes 100mg 100 mg as U nivers 100 mg 6-17 needed. ity of tablet 09:23: [address] sildenafiL 2-0 Yes 100mg 100 mg as U nivers 100 mg 6-17 needed. ity of tablet 09:23: [address] sildenafiL 2-0 Yes 100mg 100 mg as U nivers 100 mg 6-17 needed. ity of tablet 09:23: [address] sildenafiL Yes 100mg 100 mg as U nivers 100 mg 6-17 needed. ity of tablet 09:23: [address] sildenafiL Yes 100mg 100 mg as U nivers 100 mg 6-17 needed. ity of tablet 09:23: [address] sildenafiL Yes 100mg 100 mg as U nivers 100 mg 6-17 needed. ity of tablet 09:23: [address] sildenafiL Yes 100mg 100 mg as U nivers 100 mg 6-17 needed. ity of tablet 09:23: [address] sildenafiL Yes 100mg 100 mg as U nivers 100 mg 6-17 needed. ity of tablet 09:23: [address] sildenafiL Yes 100mg 100 mg as U nivers 100 mg 6-17 needed. ity of tablet 09:23: [address] sildenafiL Yes 100mg 100 mg as U nivers 100 mg 6-17 needed. ity of tablet 09:23: [address] ferrous 0 Yes 325mg Take 325 Unive rs sulfate 325 6-10 mg by ity of mg (65 mg 08:24: mouth [place] iron) 09 daily. Medical tablet Branch empaglifloz 0 Yes Take by [facility] vers in 6-10 mouth ity of ([place] Tab 09 [facility] Branch ferrous 0 Yes 325mg Take 325 [...] iron) 09 daily. Medical tablet Branch ferrous 2022-0 Yes 325mg Take 325 Unive rs sulfate 325 6-10 mg by ity of mg (65 mg 08:24: mouth [place] iron) 09 daily. Medical tablet Branch ferrous 2022-0 Yes 325mg Take 325 Unive rs sulfate 325 6-10 mg by ity of mg (65 mg 08:24: mouth [place] iron) 09 daily. Medical tablet Branch ferrous 2022-0 Yes 325mg Take 325 [...] iron) 09 daily. Medical tablet Branch ferrous 2022-0 Yes 325mg Take 325 Unive rs sulfate 325 6-10 mg by ity of mg (65 mg 08:24: mouth [place] iron) 09 daily. Medical tablet Branch ferrous 2022-0 Yes 325mg Take 325 Unive rs sulfate 325 6-10 mg by ity of mg (65 mg 08:24: mouth [place] iron) 09 daily. Medical tablet Branch ferrous 2022-0 Yes 325mg Take 325 [...] daily. Medical tablet Branch doxepin 10 Yes [id number] 10mg Take 1 U nivers mg capsule 6-10 capsule by ity of 00:00: mouth at [place] 00 bedtime. Medical Branch lipase-prot Yes [id number] 1{capsu Take 1 [facility] ease-amylas 6-10 le} capsule by it y of e (CREON) 00:00: mouth 3 - 00 (three) Medic al 0 -30,000 times Branch unit daily with capsule meals. telmisartan Yes [id number] 1{tbl} Take 1 [facility] -hydrochlor 6-10 tablet by ity of othiazide 00:00: mouth [place] 80-25 mg 00 daily. Medical per tablet Branch doxepin 10 Yes [id number] 10mg Take 1 U nivers mg capsule 6-10 capsule by ity of 00:00: mouth at [place] 00 bedtime. Medical Branch lipase-prot Yes [id number] 1{capsu Take 1 [facility] ease-amylas 6-10 le} capsule by it y of e (CREON) 00:00: mouth 3 [place] 6,000-19, 00 (three) Medic al 0 -30,000 times Branch unit daily with capsule meals. telmisartan Yes [id number] 1{tbl} Take 1 [facility] -hydrochlor 6-10 tablet by ity of othiazide 00:00: mouth [place] 80-25 mg 00 daily. Medical per tablet Branch doxepin 10 Yes [id number] 10mg Take 1 U nivers mg capsule 6-10 capsule by ity of 00:00: mouth at [place] 00 bedtime. Medical Branch lipase-prot Yes [id number] 1{capsu Take 1 [facility] ease-amylas 6-10 le} capsule by it y of e (CREON) 00:00: mouth 3 - 00 (three) Medic al 0 -30,000 times Branch unit daily with capsule meals. telmisartan Yes [id number] 1{tbl} Take 1 [facility] -hydrochlor 6-10 tablet by ity of othiazide 00:00: mouth [place] 80-25 mg 00 daily. Medical per tablet Branch doxepin 10 Yes [id number] 10mg Take 1 U nivers mg capsule 6-10 capsule by ity of 00:00: mouth at [place] 00 bedtime. Medical Branch lipase-prot Yes [id number] 1{capsu Take 1 [facility] ease-amylas 6-10 le} capsule by it y of e (CREON) 00:00: mouth 3 - 00 (three) Medic al 0 -30,000 times Branch unit daily with capsule meals. doxepin 10 Yes [id number] 10mg Take 1 U nivers mg capsule 6-10 capsule by ity of 00:00: mouth at [place] 00 bedtime. Medical Branch lipase-prot Yes [id number] 1{capsu Take 1 [facility] ease-amylas 6-10 le} capsule by it y of e (CREON) 00:00: mouth 3 - 00 (three) Medic al 0 -30,000 times Branch unit daily with capsule meals. doxepin 10 Yes [id number] 10mg Take 1 U nivers mg capsule 6-10 capsule by ity of 00:00: mouth at [place] 00 bedtime. Medical Branch lipase-prot Yes [id number] 1{capsu Take 1 [facility] ease-amylas 6-10 le} capsule by it y of e (CREON) 00:00: mouth 3 - 00 (three) Medic al 0 -30,000 times Branch unit daily with capsule meals. doxepin 10 Yes [id number] 10mg Take 1 U nivers mg capsule 6-10 capsule by ity of 00:00: mouth at [place] 00 bedtime. Medical Branch lipase-prot Yes [id number] 1{capsu Take 1 [facility] ease-amylas 6-10 le} capsule by it y of e (CREON) 00:00: mouth 3 - 00 (three) Medic al 0 -30,000 times Branch unit daily with capsule meals. doxepin 10 Yes [id number] 10mg Take 1 U nivers mg capsule 6-10 capsule by ity of 00:00: mouth at [place] 00 bedtime. Medical Branch lipase-prot Yes [id number] 1{capsu Take 1 [facility] ease-amylas 6-10 le} capsule by it y of e (CREON) 00:00: mouth 3 - 00 (three) Medic al 0 -30,000 times Branch unit daily with capsule meals. doxepin 10 Yes [id number] 10mg Take 1 U nivers mg capsule 6-10 capsule by ity of 00:00: mouth at [place] 00 bedtime. Medical Branch lipase-prot Yes [id number] 1{capsu Take 1 [facility] ease-amylas 6-10 le} capsule by it y of e (CREON) 00:00: mouth 3 - 00 (three) Medic al 0 -30,000 times Branch unit daily with capsule meals. doxepin 10 Yes [id number] 10mg Take 1 U nivers mg capsule 6-10 capsule by ity of 00:00: mouth at [place] 00 bedtime. Medical Branch lipase-prot Yes [id number] 1{capsu Take 1 [facility] ease-amylas 6-10 le} capsule by it y of e (CREON) 00:00: mouth 3 - 00 (three) Medic al 0 -30,000 times Branch unit daily with capsule meals. doxepin 10 Yes [id number] 10mg Take 1 U nivers mg capsule 6-10 capsule by ity of 00:00: mouth at [place] 00 bedtime. Medical Branch lipase-prot Yes [id number] 1{capsu Take 1 [facility] ease-amylas 6-10 le} capsule by it y of e (CREON) 00:00: mouth 3 - 00 (three) Medic al 0 -30,000 times Branch unit daily with capsule meals. lipase-prot 2021-0 Yes [id number] 1{capsu Take 1 [facility] ease-amylas 6-10 le} capsule by it y of e (CREON) 00:00: mouth 3 [place] 6,000- 00 (three) Medic al 0 -30,000 times Branch unit daily with capsule meals. lipase-prot 2021-0 Yes [id number] 1{capsu Take 1 [facility] ease-amylas 6-10 le} capsule by it y of e (CREON) 00:00: mouth 3 [place] 6,- 00 (three) Medic al 0 -30,000 times Branch unit daily with capsule meals. lipase-prot 2021-0 Yes [id number] 1{capsu Take 1 [facility] ease-amylas 6-10 le} capsule by it y of e (CREON) 00:00: mouth 3 [place] ,- 00 (three) Medic al 0 -30,000 times Branch unit daily with capsule meals. lipase-prot 2021-0 Yes [id number] 1{capsu Take 1 [facility] ease-amylas 6-10 le} capsule by it y of e (CREON) 00:00: mouth 3 [place] 6,- 00 (three) Medic al 0 -30,000 times Branch unit daily with capsule meals. lipase-prot Yes [id number] 1{capsu Take 1 [facility] ease-amylas 6-10 le} capsule by it y of e (CREON) 00:00: mouth 3 [place] 6,- 00 (three) Medic al 0 -30,000 times Branch unit daily with capsule meals. lipase-prot 2021-0 Yes [id number] 1{capsu Take 1 [facility] ease-amylas 6-10 le} capsule by it y of e (CREON) 00:00: mouth 3 [place] 6,- 00 (three) Medic al 0 -30,000 times Branch unit daily with capsule meals. lipase-prot 2021-0 202- No [id number] 1{capsu Take 1 [facility] ease-amylas 6-10 11-11 le} capsule by i ty of e (CREON) 00:00: 00:00 mouth 3 [place] 6,000-19,00 00 :00 (three) Medic al 0 -30,000 times Branch unit daily with capsule meals. lipase-prot 2021- No [id number] 1{capsu Take 1 [facility] ease-amylas 6-10 11-11 le} capsule by i ty of e (CREON) 00:00: 00:00 mouth 3 [place] 6,000-19,00 00 :00 (three) Medic al 0 -30,000 times Branch unit daily with capsule meals. doxepin 10 2021- No [id number] 10mg Take 1 [facility] mg capsule 6-10 10-18 capsule by it y of 00:00: 00:00 mouth at [place] 00 :00 bedtime. Medical Branch doxepin 10 2021- No [id number] 10mg Take 1 [facility] mg capsule 6-10 10-18 capsule by it y of 00:00: 00:00 mouth at [place] 00 :00 bedtime. Medical Branch telmisartan 2021- No [id number] 1{tbl} Take 1 [facility] -hydrochlor 6-10 08-22 tablet by it y of othiazide 00:00: 00:00 mouth [place] 80-25 mg 00 :00 daily. Medical per tablet Branch ondansetron Yes [id number] 4mg Take 1 [facility] 4 mg 5-27 tablet by ity of disintegrat 00:00: mouth [place] ing tablet 00 every 8 Medica l (eight) Branch hours as needed for Nausea and Vomiting (N/V). ondansetron Yes [id number] 4mg Take 1 [facility] 4 mg 5-27 tablet by ity of disintegrat 00:00: mouth [place] ing tablet 00 every 8 Medica l (eight) Branch hours as needed for Nausea and Vomiting (N/V). ondansetron Yes [id number] 4mg Take 1 [facility] 4 mg 5-27 tablet by ity of disintegrat 00:00: mouth [place] ing tablet 00 every 8 Medica l (eight) Branch hours as needed for Nausea and Vomiting (N/V). ondansetron Yes [id number] 4mg Take 1 [facility] 4 mg 5-27 tablet by ity of disintegrat 00:00: mouth [place] ing tablet 00 every 8 Medica l (eight) Branch hours as needed for Nausea and Vomiting (N/V). ondansetron 2021-0 Yes [id number] 4mg Take 1 [facility] 4 mg 5-27 tablet by ity of disintegrat 00:00: mouth [place] ing tablet 00 every 8 Medica l (eight) Branch hours as needed for Nausea and Vomiting (N/V). ondansetron 2021-0 Yes [id number] 4mg Take 1 [facility] 4 mg 5-27 tablet by ity of disintegrat 00:00: mouth [place] ing tablet 00 every 8 Medica l (eight) Branch hours as needed for Nausea and Vomiting (N/V). ondansetron 2021-0 Yes [id number] 4mg Take 1 [facility] 4 mg 5-27 tablet by ity of disintegrat 00:00: mouth [place] ing tablet 00 every 8 Medica l (eight) Branch hours as needed for Nausea and Vomiting (N/V). ondansetron 2021-0 Yes [id number] 4mg Take 1 [facility] 4 mg 5-27 tablet by ity of disintegrat 00:00: mouth [place] ing tablet 00 every 8 Medica l (eight) Branch hours as needed for Nausea and Vomiting (N/V). ondansetron 2021-0 Yes [id number] 4mg Take 1 [facility] 4 mg 5-27 tablet by ity of disintegrat 00:00: mouth [place] ing tablet 00 every 8 Medica l (eight) Branch hours as needed for Nausea and Vomiting (N/V). ondansetron 2021-0 Yes [id number] 4mg Take 1 [facility] 4 mg 5-27 tablet by ity of disintegrat 00:00: mouth [place] ing tablet 00 every 8 Medica l (eight) Branch hours as needed for Nausea and Vomiting (N/V). ondansetron 2021-0 Yes [id number] 4mg Take 1 [facility] 4 mg 5-27 tablet by ity of disintegrat 00:00: mouth [place] ing tablet 00 every 8 Medica l (eight) Branch hours as needed for Nausea and Vomiting (N/V). ondansetron 2021-0 Yes [id number] 4mg Take 1 [facility] 4 mg 5-27 tablet by ity of disintegrat 00:00: mouth [place] ing tablet 00 every 8 Medica l (eight) Branch hours as needed for Nausea and Vomiting (N/V). ondansetron 2021-0 Yes [id number] 4mg Take 1 [facility] 4 mg 5-27 tablet by ity of disintegrat 00:00: mouth [place] ing tablet 00 every 8 Medica l (eight) Branch hours as needed for Nausea and Vomiting (N/V). ondansetron 2021-0 Yes [id number] 4mg Take 1 [facility] 4 mg 5-27 tablet by ity of disintegrat 00:00: mouth [place] ing tablet 00 every 8 Medica l (eight) Branch hours as needed for Nausea and Vomiting (N/V). ondansetron 2021-0 Yes [id number] 4mg Take 1 [facility] 4 mg 5-27 tablet by ity of disintegrat 00:00: mouth [place] ing tablet 00 every 8 Medica l (eight) Branch hours as needed for Nausea and Vomiting (N/V). ondansetron 2021-0 Yes [id number] 4mg Take 1 [facility] 4 mg 5-27 tablet by ity of disintegrat 00:00: mouth [place] ing tablet 00 every 8 Medica l (eight) Branch hours as needed for Nausea and Vomiting (N/V). ondansetron 2021-0 Yes [id number] 4mg Take 1 [facility] 4 mg 5-27 tablet by ity of disintegrat 00:00: mouth [place] ing tablet 00 every 8 Medica l (eight) Branch hours as needed for Nausea and Vomiting (N/V). ondansetron 2021-0 Yes [id number] 4mg Take 1 [facility] 4 mg 5-27 tablet by ity of disintegrat 00:00: mouth [place] ing tablet 00 every 8 Medica l (eight) Branch hours as needed for Nausea and Vomiting (N/V). ondansetron 2021-0 Yes [id number] 4mg Take 1 [facility] 4 mg 5-27 tablet by ity of disintegrat 00:00: mouth [place] ing tablet 00 every 8 Medica l (eight) Branch hours as needed for Nausea and Vomiting (N/V). ondansetron 2021-0 Yes [id number] 4mg Take 1 [facility] 4 mg 5-27 tablet by ity of disintegrat 00:00: mouth [place] ing tablet 00 every 8 Medica l (eight) Branch hours as needed for Nausea and Vomiting (N/V). ondansetron 2021-0 2- No [id number] 4mg Take 1 [facility] 4 mg 5-27 11-18 tablet by ity of disintegrat 00:00: 00:00 mouth [place] ing tablet 00 :00 every 8 Medica l (eight) Branch hours as needed for Nausea and Vomiting (N/V). ondansetron 2022-0 2022- No [id number] 4mg Take 1 [facility] 4 mg 5-27 11-18 tablet by ity of disintegrat 00:00: 00:00 mouth [place] ing tablet 00 :00 every 8 Medica l (eight) Branch hours as needed for Nausea and Vomiting (N/V). ondansetron 2-0 2- No [id number] 4mg Take 1 [facility] 4 mg 5-27 11-18 tablet by ity of disintegrat 00:00: 00:00 mouth [place] ing tablet 00 :00 every 8 Medica l (eight) Branch hours as needed for Nausea and Vomiting (N/V). ondansetron 2021-0 2- No [id number] 4mg Take 1 [facility] 4 mg 5-27 11-18 tablet by ity of disintegrat 00:00: 00:00 mouth [place] ing tablet 00 :00 every 8 Medica l (eight) Branch hours as needed for Nausea and Vomiting (N/V). ondansetron 2-0 2- No [id number] 4mg Take 1 [facility] 4 mg 5-27 11-18 tablet by ity of disintegrat 00:00: 00:00 mouth [place] ing tablet 00 :00 every 8 Medica l (eight) Branch hours as needed for Nausea and Vomiting (N/V). meclizine 2022-0 Yes [id number] 25mg Take 1 U nivers 25 mg 5-18 tablet by ity of tablet 00:00: mouth 3 00 (three) Medical times Branch daily as needed for Dizziness. meclizine 2022-0 Yes [id number] 25mg Take 1 U nivers 25 mg 5-18 tablet by ity of tablet 00:00: mouth 3 [place] 00 (three) Medical times Branch daily as needed for Dizziness. meclizine 2022-0 Yes [id number] 25mg Take 1 U nivers 25 mg 5-18 tablet by ity of tablet 00:00: mouth 3 (three) Medical times Branch daily as needed for Dizziness. meclizine 2021-0 Yes [id number] 25mg Take 1 U nivers 25 mg 5-18 tablet by ity of tablet 00:00: mouth 3 (three) Medical times Branch daily as needed for Dizziness. meclizine 2021-0 Yes [id number] 25mg Take 1 U nivers 25 mg 5-18 tablet by ity of tablet 00:00: mouth (three) Medical times Branch daily as needed for Dizziness. meclizine 2021-0 Yes [id number] 25mg Take 1 U nivers 25 mg 5-18 tablet by ity of tablet 00:00: mouth (three) Medical times Branch daily as needed for Dizziness. meclizine 2021-0 Yes [id number] 25mg Take 1 U nivers 25 mg 5-18 tablet by ity of tablet 00:00: mouth (three) Medical times Branch daily as needed for Dizziness. meclizine 2021-0 Yes [id number] 25mg Take 1 U nivers 25 mg 5-18 tablet by ity of tablet 00:00: mouth (three) Medical times Branch daily as needed for Dizziness. meclizine 2021-0 Yes [id number] 25mg Take 1 U nivers 25 mg 5-18 tablet by ity of tablet 00:00: mouth (three) Medical times Branch daily as needed for Dizziness. meclizine 2021-0 Yes [id number] 25mg Take 1 U nivers 25 mg 5-18 tablet by ity of tablet 00:00: mouth (three) Medical times Branch daily as needed for Dizziness. meclizine 2021-0 Yes [id number] 25mg Take 1 U nivers 25 mg 5-18 tablet by ity of tablet 00:00: mouth 3 (three) Medical times Branch daily as needed for Dizziness. meclizine 2021-0 Yes [id number] 25mg Take 1 U nivers 25 mg 5-18 tablet by ity of tablet 00:00: mouth 3 (three) Medical times Branch daily as needed for Dizziness. meclizine 2021-0 Yes [id number] 25mg Take 1 U nivers 25 mg 5-18 tablet by ity of tablet 00:00: mouth 3 (three) Medical times Branch daily as needed for Dizziness. meclizine 2021-0 Yes [id number] 25mg Take 1 U nivers 25 mg 5-18 tablet by ity of tablet 00:00: mouth 3 (three) Medical times Branch daily as needed for Dizziness. meclizine 2021-0 Yes [id number] 25mg Take 1 U nivers 25 mg 5-18 tablet by ity of tablet 00:00: mouth (three) Medical times Branch daily as needed for Dizziness. meclizine 2021-0 Yes [id number] 25mg Take 1 U nivers 25 mg 5-18 tablet by ity of tablet 00:00: mouth (three) Medical times Branch daily as needed for Dizziness. meclizine 2021-0 Yes [id number] 25mg Take 1 U nivers 25 mg 5-18 tablet by ity of tablet 00:00: mouth (three) Medical times Branch daily as needed for Dizziness. meclizine 2021-0 Yes [id number] 25mg Take 1 U nivers 25 mg 5-18 tablet by ity of tablet 00:00: mouth (three) Medical times Branch daily as needed for Dizziness. meclizine 2021-0 Yes [id number] 25mg Take 1 U nivers 25 mg 5-18 tablet by ity of tablet 00:00: mouth 3 (three) Medical times Branch daily as needed for Dizziness. meclizine 2021-0 Yes [id number] 25mg Take 1 U nivers 25 mg 5-18 tablet by ity of tablet 00:00: mouth (three) Medical times Branch daily as needed for Dizziness. meclizine 2021-0 Yes [id number] 25mg Take 1 U nivers 25 mg 5-18 tablet by ity of tablet 00:00: mouth 3 (three) Medical times Branch daily as needed for Dizziness. meclizine 2021-0 Yes [id number] 25mg Take 1 U nivers 25 mg 5-18 tablet by ity of tablet 00:00: mouth 3 (three) Medical times Branch daily as needed for Dizziness. meclizine 2022-0 Yes [id number] 25mg Take 1 U nivers 25 mg 5-18 tablet by ity of tablet 00:00: mouth 3 (three) Medical times Branch daily as needed for Dizziness. meclizine 2021-0 Yes [id number] 25mg Take 1 U nivers 25 mg 5-18 tablet by ity of tablet 00:00: mouth 3 (three) Medical times Branch daily as needed for Dizziness. meclizine 2021-0 Yes [id number] 25mg Take 1 U nivers 25 mg 5-18 tablet by ity of tablet 00:00: mouth (three) Medical times Branch daily as needed for Dizziness. meclizine 2021-0 Yes [id number] 25mg Take 1 U nivers 25 mg 5-18 tablet by ity of tablet 00:00: mouth (three) Medical times Branch daily as needed for Dizziness. meclizine 2021-0 Yes [id number] 25mg Take 1 U nivers 25 mg 5-18 tablet by ity of tablet 00:00: mouth (three) Medical times Branch daily as needed for Dizziness. meclizine 2021-0 Yes [id number] 25mg Take 1 U nivers 25 mg 5-18 tablet by ity of tablet 00:00: mouth (three) Medical times Branch daily as needed for Dizziness. meclizine 2021-0 Yes [id number] 25mg Take 1 U nivers 25 mg 5-18 tablet by ity of tablet 00:00: mouth (three) Medical times Branch daily as needed for Dizziness. meclizine 2021-0 Yes [id number] 25mg Take 1 U nivers 25 mg 5-18 tablet by ity of tablet 00:00: mouth 3 (three) Medical times Branch daily as needed for Dizziness. meclizine 2021-0 Yes [id number] 25mg Take 1 U nivers 25 mg 5-18 tablet by ity of tablet 00:00: mouth 3 (three) Medical times Branch daily as needed for Dizziness. meclizine 2021-0 Yes [id number] 25mg Take 1 U nivers 25 mg 5-18 tablet by ity of tablet 00:00: mouth 3 (three) Medical times Branch daily as needed for Dizziness. meclizine 2021-0 Yes [id number] 25mg Take 1 U nivers 25 mg 5-18 tablet by ity of tablet 00:00: mouth (three) Medical times Branch daily as needed for Dizziness. meclizine 2021-0 Yes [id number] 25mg Take 1 U nivers 25 mg 5-18 tablet by ity of tablet 00:00: mouth 3 (three) Medical times Branch daily as needed for Dizziness. meclizine 2021-0 Yes [id number] 25mg Take 1 U nivers 25 mg 5-18 tablet by ity of tablet 00:00: mouth (three) Medical times Branch daily as needed for Dizziness. meclizine 2021-0 Yes [id number] 25mg Take 1 U nivers 25 mg 5-18 tablet by ity of tablet 00:00: mouth (three) Medical times Branch daily as needed for Dizziness. meclizine 2021-0 Yes [id number] 25mg Take 1 U nivers 25 mg 5-18 tablet by ity of tablet 00:00: mouth (three) Medical times Branch daily as needed for Dizziness. meclizine 2021-0 Yes [id number] 25mg Take 1 U nivers 25 mg 5-18 tablet by ity of tablet 00:00: mouth (three) Medical times Branch daily as needed for Dizziness. meclizine 2021-0 Yes [id number] 25mg Take 1 U nivers 25 mg 5-18 tablet by ity of tablet 00:00: mouth (three) Medical times Branch daily as needed for Dizziness. meclizine 2021-0 Yes [id number] 25mg Take 1 U nivers 25 mg 5-18 tablet by ity of tablet 00:00: mouth (three) Medical times Branch daily as needed for Dizziness. meclizine 2021-0 Yes [id number] 25mg Take 1 U nivers 25 mg 5-18 tablet by ity of tablet 00:00: mouth 3 (three) Medical times Branch daily as needed for Dizziness. meclizine 2021-0 Yes [id number] 25mg Take 1 U nivers 25 mg 5-18 tablet by ity of tablet 00:00: mouth (three) Medical times Branch daily as needed for Dizziness. meclizine 2021-0 Yes [id number] 25mg Take 1 U nivers 25 mg 5-18 tablet by ity of tablet 00:00: mouth 3 (three) Medical times Branch daily as needed for Dizziness. meclizine 2021-0 Yes [id number] 25mg Take 1 U nivers 25 mg 5-18 tablet by ity of tablet 00:00: mouth 3 (three) Medical times Branch daily as needed for Dizziness. meclizine 2021-0 Yes [id number] 25mg Take 1 [facility] nivers 25 mg 5-18 tablet by ity of tablet 00:00: mouth (three) Medical times Branch daily as needed for Dizziness. meclizine 2021-0 Yes [id number] 25mg Take 1 U nivers 25 mg 5-18 tablet by ity of tablet 00:00: mouth 3 (three) Medical times Branch daily as needed for Dizziness. meclizine 2021-0 Yes [id number] 25mg Take 1 U nivers 25 mg 5-18 tablet by ity of tablet 00:00: mouth (three) Medical times Branch daily as needed for Dizziness. meclizine 2021-0 Yes [id number] 25mg Take 1 U nivers 25 mg 5-18 tablet by ity of tablet 00:00: mouth 3 (three) Medical times Branch daily as needed for Dizziness. meclizine 2021-0 Yes [id number] 25mg Take 1 [facility]ivers 25 mg 5-18 tablet by ity of tablet 00:00: mouth (three) Medical times Branch daily as needed for Dizziness. meclizine 2021-0 Yes [id number] 25mg Take 1 [facility] 25 mg 5-18 tablet by ity of tablet 00:00: mouth 3 (three) Medical times Branch daily as needed for Dizziness. meclizine 2021-0 Yes [id number] 25mg Take 1 U [facility]ivers 25 mg 5-18 tablet by ity of tablet 00:00: mouth 3 (three) Medical times Branch daily as needed for Dizziness. meclizine 2021-0 Yes [id number] 25mg Take 1 [facility] 25 mg 5-18 tablet by ity of tablet 00:00: mouth 3 (three) Medical times Branch daily as needed for Dizziness. meclizine 2021-0 Yes [id number] 25mg Take 1 [facility] 25 mg 5-18 tablet by ity of tablet 00:00: mouth 3 (three) Medical times Branch daily as needed for Dizziness. meclizine 2021-0 Yes [id number] 25mg Take 1 [facility] 25 mg 5-18 tablet by ity of tablet 00:00: mouth (three) Medical times Branch daily as needed for Dizziness. meclizine 2021-0 Yes [id number] 25mg Take 1 [facility] 25 mg 5-18 tablet by ity of tablet 00:00: mouth (three) Medical times Branch daily as needed for Dizziness. meclizine 2021-0 Yes [id number] 25mg Take 1 [facility] 25 mg 5-18 tablet by ity of tablet 00:00: mouth (three) Medical times Branch daily as needed for Dizziness. meclizine 2021-0 Yes [id number] 25mg Take 1 [facility] 25 mg 5-18 tablet by ity of tablet 00:00: mouth (three) Medical times Branch daily as needed for Dizziness. meclizine 2021-0 Yes [id number] 25mg Take 1 U [facility] 25 mg 5-18 tablet by ity of tablet 00:00: mouth (three) Medical times Branch daily as needed for Dizziness. meclizine 2021-0 Yes [id number] 25mg Take 1 [facility] 25 mg 5-18 tablet by ity of tablet 00:00: mouth (three) Medical times Branch daily as needed for Dizziness. meclizine 2021-0 Yes [id number] 25mg Take 1 [facility] 25 mg 5-18 tablet by ity of tablet 00:00: mouth 3 (three) Medical times Branch daily as needed for Dizziness. meclizine 2021-0 Yes [id number] 25mg Take 1 U nivers 25 mg 5-18 tablet by ity of tablet 00:00: mouth 3 (three) Medical times Branch daily as needed for Dizziness. meclizine 2021-0 Yes [id number] 25mg Take 1 U nivers 25 mg 5-18 tablet by ity of tablet 00:00: mouth 3 [place] 00 (three) Medical times Branch daily as needed for Dizziness. meclizine 2022-0 Yes [id number] 25mg Take 1 U nivers 25 mg 5-18 tablet by ity of tablet 00:00: mouth 3 [place] 00 (three) Medical times Branch daily as needed for Dizziness. meclizine 2022-0 Yes [id number] 25mg Take 1 U nivers 25 mg 5-18 tablet by ity of tablet 00:00: mouth 3 [place] 00 (three) Medical times Branch daily as needed for Dizziness. meclizine 2-0 Yes [id number] 25mg Take 1 U nivers 25 mg 5-18 tablet by ity of tablet 00:00: mouth 3 00 (three) Medical times Branch daily as needed for Dizziness. meclizine 2-0 Yes [id number] 25mg Take 1 U nivers 25 mg 5-18 tablet by ity of tablet 00:00: mouth 3 [place] (three) Medical times Branch daily as needed for Dizziness. meclizine 2021-0 2023- No [id number] 25mg Take 1 Univers 25 mg 5-18 02-17 tablet by ity of tablet 00:00: 00:00 mouth 3 [place] 00 :00 (three) Medical times Branch daily as needed for Dizziness. Blood-Gluco 2022-0 Yes [id number] Use as Univers se 5-04 directed ity of Transmitter 00:00: [place] (DEXCOM G6 00 Medical TRANSMITTER Branch ) [place] Blood-Gluco 2022-0 Yes [id number] Use as Univers se 5-04 directed ity of Transmitter 00:00: [place] (DEXCOM G6 00 Medical TRANSMITTER Branch ) [place] Blood-Gluco 2022-0 Yes [id number] Use as Univers se 5-04 directed ity of Transmitter 00:00: [place] (DEXCOM G6 00 Medical TRANSMITTER Branch ) [place] Blood-Gluco 2022-0 Yes [id number] Use as Univers se 5-04 directed ity of Transmitter 00:00: [place] (DEXCOM G6 00 Medical TRANSMITTER Branch ) [place] Blood-Gluco 2022-0 Yes [id number] Use as Univers se 5-04 directed ity of Transmitter 00:00: [place] (DEXCOM G6 00 Medical TRANSMITTER Branch ) [place] Blood-Gluco 2022-0 Yes [id number] Use as Univers se 5-04 directed ity of Transmitter 00:00: [place] (DEXCOM G6 00 Medical TRANSMITTER Branch ) [place] Blood-Gluco 2022-0 Yes [id number] Use as Univers se 5-04 directed ity of Transmitter 00:00: [place] (DEXCOM G6 00 Medical TRANSMITTER Branch ) [place] Blood-Gluco 2022-0 Yes [id number] Use as Univers se 5-04 directed ity of Transmitter 00:00: [place] (DEXCOM G6 00 Medical TRANSMITTER Branch ) [place] Blood-Gluco 2022-0 Yes [id number] Use as Univers se 5-04 directed ity of Transmitter 00:00: [place] (DEXCOM G6 00 Medical TRANSMITTER Branch ) [place] Blood-Gluco 2022-0 Yes [id number] Use as Univers se 5-04 directed ity of Transmitter 00:00: [place] (DEXCOM G6 00 Medical TRANSMITTER Branch ) [place] Blood-Gluco 2022-0 Yes [id number] Use as Univers se 5-04 directed ity of Transmitter 00:00: [place] (DEXCOM G6 00 Medical TRANSMITTER Branch ) [place] Blood-Gluco 2022-0 Yes [id number] Use as Univers se 5-04 directed ity of Transmitter 00:00: [place] (DEXCOM G6 00 Medical TRANSMITTER Branch ) [place] Blood-Gluco 2022-0 Yes [id number] Use as Univers se 5-04 directed ity of Transmitter 00:00: [place] (DEXCOM G6 00 Medical TRANSMITTER Branch ) [place] Blood-Gluco 2022-0 Yes [id number] Use as Univers se 5-04 directed ity of Transmitter 00:00: [place] (DEXCOM G6 00 Medical TRANSMITTER Branch ) [place] Blood-Gluco 2022-0 Yes [id number] Use as Univers se 5-04 directed ity of Transmitter 00:00: [place] (DEXCOM G6 00 Medical TRANSMITTER Branch ) [place] Blood-Gluco 2022-0 Yes [id number] Use as Univers se 5-04 directed ity of Transmitter 00:00: [place] (DEXCOM G6 00 Medical TRANSMITTER Branch ) [place] Blood-Gluco 2022-0 Yes [id number] Use as Univers se 5-04 directed ity of Transmitter 00:00: [place] (DEXCOM G6 00 Medical TRANSMITTER Branch ) [place] Blood-Gluco 2022-0 Yes [id number] Use as Univers se 5-04 directed ity of Transmitter 00:00: [place] (DEXCOM G6 00 Medical TRANSMITTER Branch ) [place] Blood-Gluco 2022-0 Yes [id number] Use as Univers se 5-04 directed ity of Transmitter 00:00: [place] (DEXCOM G6 00 Medical TRANSMITTER Branch ) [place] Blood-Gluco 2022-0 Yes [id number] Use as Univers se 5-04 directed ity of Transmitter 00:00: [place] (DEXCOM G6 00 Medical TRANSMITTER Branch ) [place] Blood-Gluco 2022-0 Yes [id number] Use as Univers se 5-04 directed ity of Transmitter 00:00: [place] (DEXCOM G6 00 Medical TRANSMITTER Branch ) [place] Blood-Gluco 2022-0 Yes [id number] Use as Univers se 5-04 directed ity of Transmitter 00:00: [place] (DEXCOM G6 00 Medical TRANSMITTER Branch ) [place] Blood-Gluco 2022-0 Yes [id number] Use as Univers se 5-04 directed ity of Transmitter 00:00: [place] (DEXCOM G6 00 Medical TRANSMITTER Branch ) [place] Blood-Gluco 2022-0 Yes [id number] Use as Univers se 5-04 directed ity of Transmitter 00:00: [place] (DEXCOM G6 00 Medical TRANSMITTER Branch ) [place] Blood-Gluco 2022-0 Yes [id number] Use as Univers se 5-04 directed ity of Transmitter 00:00: [place] (DEXCOM G6 00 Medical TRANSMITTER Branch ) [place] Blood-Gluco 2022-0 Yes [id number] Use as Univers se 5-04 directed ity of Transmitter 00:00: [place] (DEXCOM G6 00 Medical TRANSMITTER Branch ) [place] Blood-Gluco 2022-0 Yes [id number] Use as Univers se 5-04 directed ity of Transmitter 00:00: [place] (DEXCOM G6 00 Medical TRANSMITTER Branch ) [place] Blood-Gluco 2022-0 Yes [id number] Use as Univers se 5-04 directed ity of Transmitter 00:00: [place] (DEXCOM G6 00 Medical TRANSMITTER Branch ) [place] Blood-Gluco 2022-0 Yes [id number] Use as Univers se 5-04 directed ity of Transmitter 00:00: [place] (DEXCOM G6 00 Medical TRANSMITTER Branch ) [place] Blood-Gluco 2022-0 Yes [id number] Use as Univers se 5-04 directed ity of Transmitter 00:00: [place] (DEXCOM G6 00 Medical TRANSMITTER Branch ) [place] Blood-Gluco 2022-0 Yes [id number] Use as Univers se 5-04 directed ity of Transmitter 00:00: [place] (DEXCOM G6 00 Medical TRANSMITTER Branch ) [place] Blood-Gluco 2022-0 Yes [id number] Use as Univers se 5-04 directed ity of Transmitter 00:00: [place] (DEXCOM G6 00 Medical TRANSMITTER Branch ) [place] Blood-Gluco 2022-0 Yes [id number] Use as Univers se 5-04 directed ity of Transmitter 00:00: [place] (DEXCOM G6 00 Medical TRANSMITTER Branch ) [place] Blood-Gluco 2022-0 Yes [id number] Use as Univers se 5-04 directed ity of Transmitter 00:00: [place] (DEXCOM G6 00 Medical TRANSMITTER Branch ) [place] Blood-Gluco 2022-0 Yes [id number] Use as Univers se 5-04 directed ity of Transmitter 00:00: [place] (DEXCOM G6 00 Medical TRANSMITTER Branch ) [place] Blood-Gluco 2022-0 Yes [id number] Use as Univers se 5-04 directed ity of Transmitter 00:00: [place] (DEXCOM G6 00 Medical TRANSMITTER Branch ) [place] Blood-Gluco 2022-0 Yes [id number] Use as Univers se 5-04 directed ity of Transmitter 00:00: [place] (DEXCOM G6 00 Medical TRANSMITTER Branch ) [place] Blood-Gluco 2022-0 Yes [id number] Use as Univers se 5-04 directed ity of Transmitter 00:00: [place] (DEXCOM G6 00 Medical TRANSMITTER Branch ) [place] Blood-Gluco 2022-0 Yes [id number] Use as Univers se 5-04 directed ity of Transmitter 00:00: [place] (DEXCOM G6 00 Medical TRANSMITTER Branch ) [place] Blood-Gluco 2022-0 2022- No [id number] Use as Univers se 5-04 12-29 directed ity of Transmitter 00:00: 00:00 [place] (DEXCOM G6 00 :00 Medical TRANSMITTER Branch ) [place] Immunizations Ordered Filled Immunization Date Status Comments [facility] Immunization Name Name Pneumococcal 2022-11-27 Completed Universit y of Conjugate, PCV20 00:00:00 [facility] dical (Prevnar 20) Branch Pneumococcal 20 2022-11-27 Completed Universit y of Conjugate, PCV20 00:00:00 [facility] dical (Prevnar 20) Branch Pneumococcal 20 2022-11-27 Completed Universit y of Conjugate, PCV20 00:00:00 [facility] dical (Prevnar 20) Branch Pneumococcal 20 2022-11-27 Completed Universit y of Conjugate, PCV20 00:00:00 [place] [facility] dical (Prevnar 20) Branch Pneumococcal 20 2022-11-27 Completed Universit y of Conjugate, PCV20 00:00:00 [place] Me dical (Prevnar 20) Branch Pneumococcal 20 2022-11-27 Completed Universit y of Conjugate, PCV20 00:00:00 [place] Me dical (Prevnar 20) Branch Pneumococcal 20 2022-11-27 Completed Universit y of Conjugate, PCV20 00:00:00 [place] [facility] (Prevnar 20) Branch Pneumococcal 20 2022-11-27 Completed Universit y of Conjugate, PCV20 00:00:00 [place] [facility] (Prevnar 20) Branch Pneumococcal 20 2022-11-27 Completed Universit y of Conjugate, PCV20 00:00:00 [place] Me dical (Prevnar 20) Branch Pneumococcal 20 2022-11-27 Completed Universit y of Conjugate, PCV20 00:00:00 [place] [facility] (Prevnar 20) Branch Pneumococcal 20 2022-11-27 Completed Universit y of Conjugate, PCV20 00:00:00 [place] [facility]ical (Prevnar 20) Branch Pneumococcal 20 2022-11-27 Completed Universit y of Conjugate, PCV20 00:00:00 [place] [facility]ical (Prevnar 20) Branch Pneumococcal 20 2022-11-27 Completed Universit y of Conjugate, PCV20 00:00:00 [place] [facility]ical (Prevnar 20) Branch Pneumococcal 20 2022-11-27 Completed Universit y of Conjugate, PCV20 00:00:00 [place] [facility]ical (Prevnar 20) Branch Pneumococcal 20 2022-11-27 Completed Universit y of Conjugate, PCV20 00:00:00 [place] Me dical (Prevnar 20) Branch Pneumococcal 20 2022-11-27 Completed Universit y of Conjugate, PCV20 00:00:00 [place] [facility]ical (Prevnar 20) Branch Pneumococcal 20 2022-11-27 Completed Universit y of Conjugate, PCV20 00:00:00 [place] [facility] dical (Prevnar 20) Branch Pneumococcal 20 2022-11-27 Completed Universit y of Conjugate, PCV20 00:00:00 [place] [facility]ical (Prevnar 20) Branch Pneumococcal 20 2022-11-27 Completed Universit y of Conjugate, PCV20 00:00:00 [place] [facility]ical (Prevnar 20) Branch Pneumococcal 20 2022-11-27 Completed Universit y of Conjugate, PCV20 00:00:00 [place] Me dical (Prevnar 20) Branch Pneumococcal 20 2022-11-27 Completed Universit y of Conjugate, PCV20 00:00:00 [place] Me dical (Prevnar 20) Branch Pneumococcal 20 2022-11-27 Completed Universit y of Conjugate, PCV20 00:00:00 [place] Me dical (Prevnar 20) Branch Pneumococcal 20 2022-11-27 Completed Universit y of Conjugate, PCV20 00:00:00 [place] Me dical (Prevnar 20) Branch Pneumococcal 20 2022-11-27 Completed Universit y of Conjugate, PCV20 00:00:00 [place] Me dical (Prevnar 20) Branch Pneumococcal 20 2022-11-27 Completed Universit y of Conjugate, PCV20 00:00:00 [place] Me dical (Prevnar 20) Branch Pneumococcal 20 2022-11-27 Completed Universit y of Conjugate, PCV20 00:00:00 [place] Me dical (Prevnar 20) Branch Pneumococcal 20 2022-11-27 Completed Universit y of Conjugate, PCV20 00:00:00 [place] Me dical (Prevnar 20) Branch Pneumococcal 20 2022-11-27 Completed Universit y of Conjugate, PCV20 00:00:00 [place] Me dical (Prevnar 20) Branch Pneumococcal 20 2022-11-27 Completed Universit y of Conjugate, PCV20 00:00:00 [place] Me dical (Prevnar 20) Branch Pneumococcal 20 2022-11-27 Completed Universit y of Conjugate, PCV20 00:00:00 [place] Me dical (Prevnar 20) Branch Pneumococcal 20 2022-11-27 Completed Universit y of Conjugate, PCV20 00:00:00 [place] Me dical (Prevnar 20) Branch Pneumococcal 20 2022-11-27 Completed Universit y of Conjugate, PCV20 00:00:00 [place] Me dical (Prevnar 20) Branch Pneumococcal 20 2022-11-27 Completed Universit y of Conjugate, PCV20 00:00:00 [place] Me dical (Prevnar 20) Branch Pneumococcal 20 2022-11-27 Completed Universit y of Conjugate, PCV20 00:00:00 [place] Me dical (Prevnar 20) Branch Pneumococcal 20 2022-11-27 Completed Universit y of Conjugate, PCV20 00:00:00 [place] [facility]ical (Prevnar 20) Branch Pneumococcal 20 2022-11-27 Completed Universit y of Conjugate, PCV20 00:00:00 [place] Me dical (Prevnar 20) Branch Pneumococcal 20 2022-11-27 Completed Universit y of Conjugate, PCV20 00:00:00 [place] Me dical (Prevnar 20) Branch Pneumococcal 20 2022-11-27 Completed Universit y of Conjugate, PCV20 00:00:00 [place] [facility]ical (Prevnar 20) Branch Pneumococcal 20 2022-11-27 Completed Universit y of Conjugate, PCV20 00:00:00 [place] [facility] (Prevnar 20) Branch Pneumococcal 20 2022-11-27 Completed Universit y of Conjugate, PCV20 00:00:00 [place] [facility]ical (Prevnar 20) Branch Pneumococcal 20 2022-11-27 Completed Universit y of Conjugate, PCV20 00:00:00 [facility] dical (Prevnar 20) Branch Pneumococcal 20 2022-11-27 Completed Universit y of Conjugate, PCV20 00:00:00 [facility] dical (Prevnar 20) Branch Pneumococcal 20 2022-11-27 Completed Universit y of Conjugate, PCV20 00:00:00 [facility] dical (Prevnar 20) Branch Pneumococcal 20 2022-11-27 Completed Universit y of Conjugate, PCV20 00:00:00 [place] [facility] (Prevnar 20) Branch Pneumococcal 20 2022-11-27 Completed Universit y of Conjugate, PCV20 00:00:00 [facility] dical (Prevnar 20) Branch Pneumococcal 20 2022-11-27 Completed Universit y of Conjugate, PCV20 00:00:00 [facility] dical (Prevnar 20) Branch Pneumococcal 20 2022-11-27 Completed Universit y of Conjugate, PCV20 00:00:00 [facility] dical (Prevnar 20) Branch Pneumococcal 20 2022-11-27 Completed Universit y of Conjugate, PCV20 00:00:00 [facility] dical (Prevnar 20) Branch Pneumococcal 20 2022-11-27 Completed Universit y of Conjugate, PCV20 00:00:00 [facility] dical (Prevnar 20) Branch Vital Signs Vital Name Observation Time Observation Value Comments Source Systolic blood 2023-01-02 14:58:00 111 mm[Hg] [facility] pressure Medicine Diastolic blood 2023-01-02 14:58:00 80 mm[Hg] [facility] Medicine Heart rate 2023-01-02 14:58:00 73 /min [facility] Body temperature 2023-01-02 14:58:00 36.61 Kayla [facility] Respiratory rate 2023-01-02 14:58:00 20 /min [facility] Body height 2023-01-02 14:58:00 182.9 cm [facility] Body weight 2023-01-02 14:58:00 98.158 kg [facility] BMI 2023-01-02 14:58:00 29.35 kg/m2 [facility] Systolic blood 2022-12-24 16:47:00 106 mm[Hg] Univer sity of [facility] Diastolic blood 2022-12-24 16:47:00 71 mm[Hg] Unive rsity of [facility] Heart rate 2022-12-24 16:47:00 76 /min Universi ty of [facility] Body temperature 2022-12-24 16:47:00 36.06 Kayla Univ ersity of [facility] Body height 2022-12-24 16:47:00 182.9 cm Universi ty of [facility] Body weight 2022-12-24 16:47:00 104.191 kg Universi ty of [facility] BMI 2022-12-24 16:47:00 31.15 kg/m2 Universi ty of [facility] Systolic blood 2022-12-21 07:00:00 123 mm[Hg] Univer sity of [facility] Diastolic blood 2022-12-21 07:00:00 79 mm[Hg] Unive rsity of [facility] Heart rate 2022-12-21 07:00:00 77 /min Universi ty of [facility] Respiratory rate 2022-12-21 07:00:00 13 /min [facility] Oxygen saturation in 2022-12-21 07:00:00 97 /min [facility] Arterial blood by [facility] Pulse oximetry Branch Body temperature 2022-12-21 03:21:00 37.28 Kayla [facility] Body height 2022-12-21 03:21:00 182.9 cm [facility] [place] [facility] Body weight 2022-12-21 03:21:00 94.348 kg Universi ty of [place] [facility] BMI 2022-12-21 03:21:00 28.21 kg/m2 [facility] [place] [facility] Systolic blood 2022-11-27 16:52:00 125 mm[Hg] Univer sity of pressure [place] [facility] Diastolic blood 2022-11-27 16:52:00 82 mm[Hg] Unive rsity of pressure [place] [facility] Heart rate 2022-11-27 16:52:00 68 /min Universi ty [facility] [place] [facility] Respiratory rate 2022-11-27 16:52:00 18 /min Univ ersity of [place] [facility] Body height 2022-11-27 16:52:00 182.9 cm [facility]i ty [facility] [place] [facility] Body weight 2022-11-27 16:52:00 103.874 kg [facility]i [facility] [place] [facility] BMI 2022-11-27 16:52:00 31.06 kg/m2 [facility]i [facility] [place] [facility] Oxygen saturation in 2022-11-27 16:52:00 98 /min University of Arterial blood by [employer] Pulse oximetry Branch Systolic blood 2022-10-17 17:10:00 127 mm[Hg] Univer sity of pressure [place] [facility] Diastolic blood 2022-10-17 17:10:00 69 mm[Hg] Unive rsity of pressure [place] [facility] Heart rate 2022-10-17 17:10:00 82 /min Universi ty [facility] [place] [facility] Body temperature 2022-10-17 17:10:00 36.72 Kayla Univ ers[facility] [place] [facility] Respiratory rate 2022-10-17 17:10:00 18 /min Univ ersity of [place] [facility] Body height 2022-10-17 17:10:00 182.9 cm [facility]i ty [facility] [place] [facility] Body weight 2022-10-17 17:10:00 104.599 kg [facility] [place] [facility] BMI 2022-10-17 17:10:00 31.27 kg/m2 [facility] [place] [facility] Oxygen saturation in 2022-10-17 17:10:00 96 /min University of Arterial blood by [employer] Pulse oximetry Branch Systolic blood 2022-09-07 16:57:00 130 mm[Hg] Univer sity of pressure [place] [facility] Diastolic blood 2022-09-07 16:57:00 84 mm[Hg] Unive rsity of pressure [place] [facility] Heart rate 2022-09-07 16:55:00 77 /min Universi ty [facility] [place] [facility] Body temperature 2022-09-07 16:55:00 36.11 Kayla Univ ers[facility] [place] [facility] Respiratory rate 2022-09-07 16:55:00 18 /min Univ ersity of [place] [facility] Body height 2022-09-07 16:55:00 182.9 cm [facility]i [facility] [place] [facility] Body weight 2022-09-07 16:55:00 106.006 kg [facility] [place] [facility] BMI 2022-09-07 16:55:00 31.70 kg/m2 [facility] [place] [facility] Oxygen saturation in 2022-09-07 16:55:00 97 /min University of Arterial blood by [place] [employer] [facility] Pulse oximetry Branch Systolic blood 2022-08-07 19:58:00 134 mm[Hg] Univer sity of pressure [place] [facility] Diastolic blood 2022-08-07 19:58:00 79 mm[Hg] Unive rsity of pressure [place] [facility] Heart rate 2022-08-07 19:58:00 84 /min [facility]i ty [facility] [place] [facility] Respiratory rate 2022-08-07 19:58:00 18 /min Univ ersity of [place] [facility] Body weight 2022-08-07 19:58:00 108.863 kg [facility]i [facility] [place] [facility] BMI 2022-08-07 19:58:00 32.55 kg/m2 [facility] [place] [facility] Oxygen saturation in 2022-08-07 19:58:00 95 /min University of Arterial blood by [employer] [facility] Pulse oximetry Branch HEIGHT 2022-07-17 [...] WEIGHT 2022-06-26 18:00:00 109.9 kg Systolic blood 2023-01-28 13:27:00 119 mm[Hg] [facility] Diastolic blood 2023-01-28 13:27:00 89 mm[Hg] [facility] Heart rate 2023-01-28 13:27:00 82 /min [facility] Body temperature 2023-01-28 13:27:00 36.67 Kayla [facility] Respiratory rate 2023-01-28 13:27:00 16 /min [facility] Oxygen saturation in 2023-01-28 13:27:00 96 /min [facility] Arterial blood by Medical Ce nter Pulse oximetry Body height 2023-01-28 09:23:00 182.9 cm [facility] Body weight 2023-01-28 09:23:00 100.755 kg [facility] BMI 2023-01-28 09:23:00 30.13 kg/m2 [facility] Body height 2023-01-08 13:12:00 182.9 cm [facility] Body weight 2023-01-08 13:12:00 95.255 kg [facility] BMI 2023-01-08 13:12:00 28.48 kg/m2 [facility] HEIGHT 2023-01-08 13:12:00 182.9 cm WEIGHT 2023-01-08 13:12:00 95.255 kg Systolic blood 2022-10-25 12:58:00 115 mm[Hg] [facility] Diastolic blood 2022-10-25 12:58:00 73 mm[Hg] [facility] Heart rate 2022-10-25 12:58:00 70 /min [facility] Body temperature 2022-10-25 12:58:00 36.5 Kayla [facility] Respiratory rate 2022-10-25 12:58:00 18 /min [facility] Body height 2022-10-25 12:58:00 182.9 cm [facility] Body weight 2022-10-25 12:58:00 100.245 kg [facility] BMI 2022-10-25 12:58:00 29.97 kg/m2 [facility] Oxygen saturation in 2022-10-25 12:58:00 99 /min [facility] Arterial blood by Medical Ce nter Pulse oximetry Body height 2022-08-14 11:00:00 182.9 cm [facility] Body weight 2022-08-14 11:00:00 109.77 kg [facility] BMI 2022-08-14 11:00:00 32.82 kg/m2 [facility] Systolic blood 2022-07-17 15:27:00 99 mm[Hg] [facility] Diastolic blood 2022-07-17 15:27:00 62 mm[Hg] [facility] Heart rate 2022-07-17 14:15:00 78 /min [facility] Body temperature 2022-07-17 14:15:00 36.61 Kayla [facility] Body height 2022-07-17 14:15:00 182.9 cm [facility] Body weight 2022-07-17 14:15:00 109.77 kg [facility] BMI 2022-07-17 14:15:00 32.82 kg/m2 [facility] Oxygen saturation in 2022-07-17 14:15:00 100 /min [facility] Arterial blood by Medical Ce nter Pulse oximetry Systolic blood 2022-07-02 08:10:00 130 mm[Hg] [facility] Diastolic blood 2022-07-02 08:10:00 70 mm[Hg] [facility] Heart rate 2022-07-02 08:10:00 80 /min [facility] Body temperature 2022-07-02 08:10:00 36.17 Kayla [facility] Respiratory rate 2022-07-02 08:10:00 18 /min [facility] Oxygen saturation in 2022-07-02 08:10:00 100 /min [facility] Arterial blood by Medical Ce nter Pulse oximetry Body height 2022-06-30 09:20:00 182.9 cm [facility] Body weight 2022-06-30 09:20:00 109.9 kg [facility] BMI 2022-06-30 09:20:00 32.86 kg/m2 [facility] Procedures Procedure Date / Time Performing Source Performed Clinician ASSIGNMENT OF BENEFITS 2023-02-13 Doctor Universit y of 13:53:12 Unassigned, No [facility] REPORT OF PROCEDURE - ENDOSCOPY 2023-01-28 BeatrizAbdifatahh ISABEL Franco URL 12:36:18 [facility] TISSUE EXAM 2023-01-28 Beatriz Elicia ISABEL [place] 12:18:00 [facility] EGD, WITH VARICEAL BANDING 2023-01-[address] [facility]EL [facility] 11:56:00 [facility] ULTRASOUND, UPPER GI TRACT, 2023-01-[address] [facility] ENDOSCOPIC, WITH FINE NEEDLE 11:56:00 [facility] ASPIRATION ESOPHAGOGASTRODUODENOSCOPY, WITH 2023-01-28 Beatriz Elicia ISABEL [place] bonnie ENDOSCOPIC US 10:30:00 [facility] POCT-GLUCOSE METER 2023-01-28 Beatriz [facility] 09:56:00 [facility] CBC W/AUTO DIFF WITH PLATELETS 2023-01-02 B [facility] 10:37:07 Medicine COMPREHENSIVE METABOLIC PANEL 2023-01-02 [facility] 10:37:07 Medicine APTT 2023-01-02 [facility] o f 10:37:07 Medicine PROTIME-INR 2023-01-02 [facility] o f 10:37:07 Medicine REFERRAL- REQUEST/RESPONSE 2023-01-02 Doctor Do rsity of 05:01:00 Unassigned, No [facility] EKG-12 LEAD 2022-12-21 Vaishali Martin [facility] 07:18:12 [facility] TROPONIN I 2022-12-21 [facility] of 04:31:00 [facility] N-TERMINAL PRO-BNP 2022-12-21 [facility] o f 04:31:00 [facility] PROTHROMBIN TIME / INR 2022-12-21 [facility] ty of 04:11:00 [facility] CONSENT/REFUSAL FOR DIAGNOSIS AND 2022-12-21 [facility] 03:10:29 Unassigned, No [facility] CT ABDOMEN W CONTRAST 2022-12-20 Bar Jameson [facility] y of 18:03:39 [facility] CONSENT/REFUSAL FOR DIAGNOSIS AND 2022-12-20 [facility] 17:21:22 Unassigned, No [facility] ASSIGNMENT OF BENEFITS 2022-12-20 [facility] y of 17:21:06 Unassigned, No [facility] TROPONIN I 2022-12-20 Pending Sale To [facility] of 17:12:00 [facility] N-TERMINAL PRO-BNP 2022-12-20 [facility] Center o f 17:12:00 [facility] EXTERNAL PROVIDER RECORDS 2022-12-20 Doctor Univer [facility]ity of 06:01:00 Unassigned, No [facility] EXTERNAL PROVIDER RECORDS 2022-12-17 Doctor [facility] of 06:01:00 Unassigned, No [facility] EXTERNAL PROVIDER RECORDS 2022-12-05 Doctor [facility] of 06:01:00 Unassigned, No [facility] PNEUMOCOCCAL 20 CONJUGATE (PREVNAR 2022-11-27 Dandre Jameson [place] [id number]) VACCINE 18:16:25 [facility] DISABILITY/FMLA 2022-11-20 [facility] of 06:01:00 Unassigned, No [facility] DIABETES TESTING REPORTS 2022-11-08 Doctor [facility] it of 06:01:00 Unassigned, No [facility] MISCELLANEOUS LAB ORDER 2022-10-25 [facility]ard [facility] 13:40:00 [facility] BASIC METABOLIC PANEL 2022-10-25 [facility] 13:40:00 [facility] HEPATIC FUNCTION PANEL 2022-10-[address] 13:40:00 [facility] CBC W/PLT COUNT & AUTO 2022-10-[address] [facility] DIFFERENTIAL 13:40:00 [facility] PROTHROMBIN TIME/INR 2022-10-[address] [facility] 13:40:00 [facility] ALPHA FETOPROTEIN (AFP), TUMOR 2022-10-[address] [facility] 13:40:00 [facility] CBC W/PLT COUNT & AUTO 2022-10-[address] DIFFERENTIAL 13:40:00 [facility] DISABILITY/FMLA 2022-10-23 [facility] of 06:01:00 Unassigned, No [facility] POCT-GLUCOSE METER 2022-10-12 Aamir, Melly [facility] 15:53:00 [facility] POCT-GLUCOSE METER 2022-10-12 Aamir, [facility] 11:59:00 [facility] POCT-GLUCOSE METER 2022-10-12 Aamir, Mel[facility] 06:43:00 [facility] HEPATIC FUNCTION PANEL 2022-10-[address] [facility] 04:43:00 [facility] REPORT OF PROCEDURE - ENDOSCOPY 2022-10-[address] [facility] URL 17:53:04 [facility] EGD (ESOPHAGOGASTRODUODENOSCOPY) 2022-10-[address] [facility] 17:17:00 [facility] POCT-GLUCOSE METER 2022-10-11 Aamir, Melly [facility] 15:49:00 [facility] Center POCT-GLUCOSE METER 2022-10-11 Aamir, Mel[facility] 14:42:00 [facility] Center POCT-GLUCOSE METER 2022-10-11 Aamir, [facility] 06:46:00 [facility] CT ABDOMEN/PELVIS WITHOUT IV 2022-10-11 Aamir, Mel[facility] CONTRAST 00:07:00 [facility] POCT-GLUCOSE METER 2022-10-10 Aamir, Mel[facility] 21:07:00 [facility] CBC W/PLT COUNT & AUTO 2022-10-10 Aamir, [facility] DIFFERENTIAL 15:24:00 [facility] BASIC METABOLIC PANEL 2022-10-10 [facility]ir, [facility] 15:24:00 [facility] CBC W/PLT COUNT & AUTO 2022-10-10 Aamir, [facility] DIFFERENTIAL 15:24:00 [facility] POCT-GLUCOSE METER 2022-10-10 Aamir, Mel[facility] 12:28:00 [facility] Center POCT-GLUCOSE METER 2022-10-10 Quesada, Berenice [facility] 06:22:00 [facility] Center POCT-GLUCOSE METER 2022-10-09 Quesada, Berenice [facility] 21:12:00 [facility] POCT-GLUCOSE METER 2022-10-09 Quesada, Berenice [facility] 12:08:00 [facility] ECG 12-LEAD 2022-10-09 Zurdo-Corrina, [facility] 10:53:32 [facility] POCT-GLUCOSE METER 2022-10-[address] [facility] 05:52:00 [facility] LIPASE 2022-10-09 Onyirioha, [facility] 03:29:00 [facility] BASIC METABOLIC PANEL 2022-10-09 Onyirio, [facility] 03:29:00 [facility] HEMOGLOBIN A1C 2022-10-09 [facility] 03:29:00 [facility] PROTHROMBIN TIME/INR 2022-10-09 [facility] 03:29:00 [facility] HEPATIC FUNCTION PANEL 2022-10-[facility] 03:29:00 [facility] LIPID PANEL 2022-10-09 Onyirio, [facility] 03:29:00 [facility] MAGNESIUM 2022-10-09 Onyirioha, [facility] 03:29:00 [facility] PHOSPHORUS 2022-10-09 Onyirioha, [facility] 03:29:00 [facility] CBC W/PLT COUNT & AUTO 2022-10-09 Onyirio, [facility] DIFFERENTIAL 03:29:00 [facility] CBC W/PLT COUNT & AUTO 2022-10-[address] [facility] DIFFERENTIAL 03:29:00 [facility] AUTHORIZATION FOR RELEASE OF PHI 2022-09-07 [facility] of 06:01:00 Unassigned, No [facility] ESOPHAGOGASTRODUODENOSCOPY 2022-08-15 [facility] Moralez [facility] 11:00:00 [facility] EXTERNAL PROVIDER RECORDS 2022-08-08 [facility] sity of 05:01:00 Unassigned, No [facility] THYROID STIMULATING HORMONE 2022-08-07 Min Iverson [facility] ersity of 22:09:00 [facility] COMP. METABOLIC PANEL (70900) 2022-08-07 Min Ievrson iversity of 22:09:00 [facility] LIPID PANEL (28210)(TOTAL 2022-08-07 Min Iverson [facility] of CHOLESTEROL, TRIGLYCERIDES, HDL) 22:09:00 [facility] HCV ANTIBODY 2022-08-07 Min Iverson [place] of 22:09:00 [facility] PAIN MANAGEMENT AGREEMENT & 2022-08-07 [facility] ersity of INFORMED CONSENT 05:01:00 Unassigned, No [facility] EXTERNAL PROVIDER RECORDS 2022-07-31 [facility] sity of 05:01:00 Unassigned, No [facility] BASIC METABOLIC PANEL 2022-07-17 Jaylin Millard [facility] 16:02:00 [facility] HEPATIC FUNCTION PANEL 2022-07-[address] [facility] 16:02:00 [facility] CBC W/PLT COUNT & AUTO 2022-07-[address] [facility] DIFFERENTIAL 16:02:00 [facility] PROTHROMBIN TIME/INR 2022-07-[address] [facility] 16:02:00 [facility] MAGNESIUM 2022-07-[address] [facility] 16:02:00 [facility] PHOSPHORUS 2022-07-[address] [facility] 16:02:00 [facility] CBC W/PLT COUNT & AUTO 2022-07-17 Millard, Jaylin [facility] DIFFERENTIAL 16:02:00 [facility] POCT-GLUCOSE METER 2022-07-02 Gadicherla, Ana Rosa [facility] 08:44:00 [facility] COMPREHENSIVE METABOLIC PANEL 2022-07-02 Nalam, Ratna Alia [facility] 03:22:00 [facility] PROTHROMBIN TIME/INR 2022-07-02 Nalam, Ratna Alia [facility] 03:22:00 [facility] Center CBC W/PLT COUNT & AUTO 2022-07-02 Nalam, Ratna Alia [facility] DIFFERENTIAL 03:22:00 [facility] CBC W/PLT COUNT & AUTO 2022-07-02 Nalam, Ratna Alia [facility] DIFFERENTIAL 03:22:00 [facility] POCT-GLUCOSE METER 2022-07-01 Gadicherla, Ana Rosa [facility] 22:20:00 [facility] POCT-GLUCOSE METER 2022-07-01 Gadicherla, Ana Rosa [facility] 15:31:00 [facility] POCT-GLUCOSE METER 2022-07-01 Gadicherla, Ana Rosa [facility] 11:14:00 [facility] MR ABDOMEN WITH & WITHOUT IV 2022-07-01 Anudu, Azubuogu [facility] CONTRAST 11:01:00 [facility] POCT-GLUCOSE METER 2022-07-01 Gadicherla, Ana Rosa [facility] 07:39:00 [facility] POCT-GLUCOSE METER 2022-07-01 Gadicherla, Ana Rosa [facility] 06:29:00 [facility] COMPREHENSIVE METABOLIC PANEL 2022-07-01 Nalam, Ratna Alia [facility] 04:11:00 [facility] CBC W/PLT COUNT & AUTO 2022-07-01 Nalam, Ratna Alia [facility] DIFFERENTIAL 04:11:00 [facility] CBC W/PLT COUNT & AUTO 2022-07-01 Nalam, Ratna Alia [facility] DIFFERENTIAL 04:11:00 [facility] PROTHROMBIN TIME/INR 2022-07-01 Nalam, Ratna Alia [facility] 04:05:00 [facility] POCT-GLUCOSE METER 2022-06-30 Gadicherla, Ana Rosa [facility] 23:42:00 [facility] POCT-GLUCOSE METER 2022-06-30 Gadicherla, Ana Rosa [facility] 17:00:00 [facility] POCT-GLUCOSE METER 2022-06-30 Gadicherla, Ana Rosa [facility] 13:08:00 [facility] THROMBOELASTOGRAPH (TEG) 2022-06-[address] [facility] 07:23:00 [facility] COMPREHENSIVE METABOLIC PANEL 2022-06-30 Nalam, Ratna Alia [facility] 05:58:00 [facility] PROTHROMBIN TIME/INR 2022-06-30 Nalam, Ratna Alia [facility] 05:58:00 [facility] CBC W/PLT COUNT & AUTO 2022-06-30 Nalam, Ratna Alia [facility] DIFFERENTIAL 05:58:00 [facility] HEPATITIS B PCR, QUANTITATIVE 2022-06-[address] [facility] 05:58:00 [facility] POCT-GLUCOSE METER 2022-06-30 Gadicherla, Ana Rosa [facility] 05:58:00 [facility] TYPE AND SCREEN, AUTOMATED 2022-06-30 Gadicherla, Ana Rosa [facility] 05:58:00 [facility] CBC W/PLT COUNT & AUTO 2022-06-30 Nalam, Ratna Alia [facility] DIFFERENTIAL 05:58:00 [facility] Center FIBRINOGEN 2022-06-[address] [facility] 05:57:00 [facility] PROTHROMBIN TIME/INR 2022-06-[address] [facility] [facility] 05:57:00 [facility] POCT-GLUCOSE METER 2022-06-30 Gadicherla, Ana Rosa [facility] 02:10:00 [facility] POCT-GLUCOSE METER 2022-06-30 Gadicherla, Ana Rosa [facility] 00:22:00 [facility] POCT-GLUCOSE METER 2022-06-29 Gadicherla, Ana Rosa [facility] 17:47:00 [facility] HEMOGLOBIN AND HEMATOCRIT 2022-06-29 Gadicherla, Ana Rosa [facility] 16:55:00 [facility] PREPARE LEUKO-REDUCED RBC 2022-06-29 [facility] 13:21:00 [facility] POCT-GLUCOSE METER 2022-06-[address] [facility] 12:17:00 [facility] 2D ECHO W/ DOPPLER (CW/PW/COLOR) 2022-06-29 Jack Bonner Ang [facility] 09:41:00 [facility] POCT-GLUCOSE METER 2022-06-29 Nalam, Ratna Alia [facility] 06:29:00 [facility] PROTHROMBIN TIME/INR 2022-06-29 Lernor, Seferino [facility] 04:11:00 [facility] APTT 2022-06-29 Lernor, Seferino [facility] 04:11:00 [facility] CBC (HEMOGRAM ONLY) 2022-06-29 Lernor, Seferino [facility] 04:11:00 [facility] COMPREHENSIVE METABOLIC PANEL 2022-06-29 Lernor, [facility]ino [facility] 04:11:00 [facility] MAGNESIUM 2022-06-29 Lernor, Seferino [facility] 04:11:00 [facility] CALCIUM, IONIZED 2022-06-29 Lernor, Seferino [facility] 04:11:00 [facility] CBC W/PLT COUNT & AUTO 2022-06-[address] [facility] DIFFERENTIAL 04:11:00 [facility] CBC W/PLT COUNT & AUTO 2022-06-[address] [facility] DIFFERENTIAL 04:11:00 [facility] POCT-GLUCOSE METER 2022-06-28 Nalam, Ratna Alia [facility] 22:25:00 [facility] POCT-GLUCOSE METER 2022-06-28 Nalam, Ratna Alia [facility] 15:48:00 [facility] US ABDOMEN COMPLETE 2022-06-28 Arleth, Brooks [facility] 11:59:00 [facility] HEMOGLOBIN AND HEMATOCRIT 2022-06-28 Lernor, Seferino [facility] 10:48:00 [facility] DRUG SCREEN, URINE, TRANSPLANT 2022-06-[address] [facility] 10:40:00 [facility] POCT-GLUCOSE METER 2022-06-28 Arleth, Brooks [facility] 10:36:00 [facility] POCT-GLUCOSE METER 2022-06-28 Arleth, Brooks [facility] 08:50:00 [facility] PROTHROMBIN TIME/INR 2022-06-28 Lernor, [facility]ef[facility]ino [facility] 05:35:00 [facility] APTT 2022-06-28 Lernor, Seferino [facility] 05:35:00 [facility] CBC (HEMOGRAM ONLY) 2022-06-28 Lernor, Seferino [facility] 05:35:00 [facility] COMPREHENSIVE METABOLIC PANEL 2022-06-28 Lernor, [facility] 05:35:00 [facility] MAGNESIUM 2022-06-28 Lernor, Seferino [facility] 05:35:00 [facility] POCT-GLUCOSE METER 2022-06-27 Arleth, Brooks [facility] 22:53:00 [facility] HEMOGLOBIN AND HEMATOCRIT 2022-06-27 Arleth, Brooks [facility] 19:49:00 [facility] HEPATITIS C PCR, QUANTITATIVE 2022-06-[address] [facility] 17:03:00 [facility] PHOSPHATIDYLETHANOL, BLOOD 2022-06-27 [facility] 17:03:00 [facility] ALPHA FETOPROTEIN (AFP), TUMOR 2022-06-[address] [facility] 17:01:00 [facility] HEPATITIS C ANTIBODY 2022-06-[address] [facility] 17:01:00 [facility] HEPATITIS A ANTIBODY, IGG 2022-06-[address] [facility] 17:01:00 [facility] HEPATITIS A ANTIBODY, IGM 2022-06-[address] [facility] 17:01:00 [facility] HEPATITIS B SURFACE ANTIBODY 2022-06-[address] [facility] 17:01:00 [facility] HEPATITIS B CORE ANTIBODY, TOTAL 2022-06-27 Bonner, Jack Bowers [facility] 17:01:00 [facility] HEPATITIS B SURFACE ANTIGEN 2022-06-27 Blaise Bonnerkimberly Bowers [facility] 17:01:00 [facility] ANTI-NUCLEAR ANTIBODY (BEATA) 2022-06-27 [address] [facility] 17:01:00 [facility] HC LAB FLUORESC AB SCRN EA AB 2022-06-27 Jack [facility]ner [facility] 17:01:00 [facility] ACTIN (SMOOTH MUSCLE) ANTIBODY, 2022-06-27 Jack Bonner Robinson [facility] IGG 17:01:00 [facility] CERULOPLASMIN 2022-06-27 Blaise Bonnerkimberly Bowers [facility] 17:01:00 [facility] [id number], SERUM 2022-06-27 Jack Bonner Robinson [facility] 17:01:00 [facility] IRON, TIBC, % SAT. (WITHOUT 2022-06-[address] Bonner Robinson [address] FERRITIN) 17:01:00 [facility] FERRITIN 2022-06-27 [address] Bonner [facility] 17:01:00 [facility] MITOCHONDRIAL AB SCREEN 2022-06-27 Ha [address] [facility] 17:01:00 [facility] MITOCHONDRIAL AB TITER 2022-06-27 Ha Jack Bowers [facility] 17:01:00 [facility] ANTI-MITOCHONDRIAL AB, REFLEX TO 2022-06-27 Blaise Bonnerkimberly Bowers [facility] TITER 17:01:00 [facility] POCT-GLUCOSE METER 2022-06-27 Arleth, Brooks [facility] 16:19:00 [facility] POCT-GLUCOSE METER 2022-06-27 Arleth, Brooks [facility] 11:35:00 [facility] HEMOGLOBIN AND HEMATOCRIT 2022-06-27 CardenasLarisa young [facility] 11:23:00 [facility] FIBRINOGEN 2022-06-[address] [facility] 11:23:00 [facility] REPORT OF PROCEDURE - ENDOSCOPY 2022-06-[address] [facility] URL 10:36:47 [facility] EGD, WITH VARICEAL BANDING 2022-06-27 Em, [facility]in [facility] 09:58:00 [facility] POCT-GLUCOSE METER 2022-06-27 Arleth, Brooks [facility] 06:05:00 [facility] PROTHROMBIN TIME/INR 2022-06-27 Lernor, [facility]eferino [facility] 03:03:00 [facility] APTT 2022-06-27 Lernor, Seferino [facility] 03:03:00 [facility] CBC (HEMOGRAM ONLY) 2022-06-27 Lernor, Seferino [facility] 03:03:00 [facility] COMPREHENSIVE METABOLIC PANEL 2022-06-27 Lernor, [facility]ino [facility] 03:03:00 [facility] MAGNESIUM 2022-06-27 Lernor, Seferino [facility] 03:03:00 [facility] POCT-GLUCOSE METER 2022-06-26 Arleth, Brooks [facility] 23:56:00 [facility] HEMOGLOBIN AND HEMATOCRIT 2022-06-26 Cardenas, Larisa [facility] 23:43:00 [facility] ABORH, MANUAL 2022-06-26 Yonis, Malathi [facility] 23:43:00 [facility] ECG 12-LEAD 2022-06-26 Unknown, Hl7 [facility] 19:35:41 [facility] CBC W/PLT COUNT & AUTO 2022-06-26 Patni, Richard [facility] DIFFERENTIAL 19:16:00 [facility] COMPREHENSIVE METABOLIC PANEL 2022-06-26 Patni, Richard [facility] 19:16:00 [facility] PROTHROMBIN TIME/INR 2022-06-26 Patni, Richard [facility] 19:16:00 [facility] APTT 2022-06-26 Patni, Richard [facility] 19:16:00 [facility] LIPASE 2022-06-26 Patni, Richard [facility] 19:16:00 [facility] CREATINE KINASE (CK) 2022-06-26 Patni, Richard [facility] 19:16:00 [facility] HIGH SENSITIVITY TROPONIN I 2022-06-26 Patni, Richard [facility] 19:16:00 [facility] ETHANOL 2022-06-[address] [facility] 19:16:00 Medical Center TYPE AND SCREEN, AUTOMATED 2022-06-26 [facility] 19:16:00 [facility] CBC W/PLT COUNT & AUTO 2022-06-[address] DIFFERENTIAL 19:16:00 [facility] Center HEMOGLOBIN AND HEMATOCRIT 2022-06-[address] [facility] 18:13:[address] [facility] CT LOW DOSE LUNG NODULE 2022-06-05 Linda Roman ty of 15:47:37 [facility] CONSENT/REFUSAL FOR DIAGNOSIS AND 2022-06-05 Doctor [place] of TREATMENT 15:24:44 Unassigned, No [facility] CONSENT/REFUSAL FOR DIAGNOSIS AND 2022-06-05 Doctor [facility] TREATMENT 15:24:43 Unassigned, No [facility] ASSIGNMENT OF BENEFITS 2022-06-05 Doctor [facility] y of 15:24:26 Unassigned, No [facility] AUTHORIZATION FOR RELEASE OF PHI 2022-01-22 [facility] of 05:01:00 Unassigned, No [facility] Plan of Care Planned Activity Planned Date Details Comments Source Future Scheduled 2030-05-27 Screening for malignant [facility] Test 00:00:00 neoplasm of colon Medical Ce [facility]ter (procedure) [code = 351039668] Future Scheduled 2030-05-27 Screening for malignant [facility] Test 00:00:00 neoplasm of colon Medical Ce [facility]ter (procedure) [code = 394400626] Future Scheduled 2030-05-27 Screening for malignant [facility] Test 00:00:00 neoplasm of colon Medical Ce [facility]ter (procedure) [code = 579184702] Future Scheduled 2030-05-27 Screening for malignant [facility] Test 00:00:00 neoplasm of colon Medical Ce nter (procedure) [code = 606398934] Future Scheduled 2030-05-27 Screening for malignant [facility] Test 00:00:00 neoplasm of colon Medical Ce [facility]ter (procedure) [code = 903193503] Future Scheduled 2030-05-27 Screening for malignant [facility] Test 00:00:00 neoplasm of colon Medical Ce nter (procedure) [code = 841411277] Future Scheduled 2030-05-27 Screening for malignant [facility] Test 00:00:00 neoplasm of colon Medical Ce nter (procedure) [code = 383253584] Future Scheduled 2030-05-27 Screening for malignant [facility] Test 00:00:00 neoplasm of colon Medical Ce nter (procedure) [code = 668073546] Future Scheduled 2030-05-27 Screening for malignant [facility] Test 00:00:00 neoplasm of colon Medical Ce nter (procedure) [code = 417167340] Future Scheduled 2030-05-27 Screening for malignant [facility] Test 00:00:00 neoplasm of colon Medical Ce nter (procedure) [code = 147886285] Future Scheduled 2030-05-27 Screening for malignant [facility] Test 00:00:00 neoplasm of colon Medical Ce nter (procedure) [code = 934299668] Future Scheduled 2030-05-27 Screening for malignant [facility] Test 00:00:00 neoplasm of colon Medical Ce nter (procedure) [code = 809877388] Future Scheduled 2030-05-27 Screening for malignant [facility] Test 00:00:00 neoplasm of colon Medical Ce nter (procedure) [code = 371976174] Future Scheduled 2030-05-27 Screening for malignant [facility] Test 00:00:00 neoplasm of colon Medical Ce nter (procedure) [code = 022364251] Future Scheduled 2030-05-27 Screening for malignant [facility] Test 00:00:00 neoplasm of colon Medical Ce nter (procedure) [code = 406549211] Future Scheduled 2030-05-27 Screening for malignant [facility] Test 00:00:00 neoplasm of colon Medical Ce nter (procedure) [code = 602978397] Future Scheduled 2025-10-09 Lipid panel (procedure) [facility] Test 00:00:00 [code = 22006340] Medical Ce nter Future Scheduled 2025-10-09 Lipid panel (procedure) [facility] Test 00:00:00 [code = 74666705] Medical Ce nter Future Scheduled 2025-10-09 Lipid panel (procedure) [facility] Test 00:00:00 [code = 62229993] Medical Ce nter Future Scheduled 2025-10-09 Lipid panel (procedure) [facility] Test 00:00:00 [code = 27759869] Medical Ce nter Future Scheduled 2025-10-09 Lipid panel (procedure) [facility] Test 00:00:00 [code = 28703566] Medical Ce nter Future Scheduled 2025-10-09 Lipid panel (procedure) [facility] Test 00:00:00 [code = 85228219] Medical Ce nter Future Scheduled 2025-10-09 Lipid panel (procedure) [facility] Test 00:00:00 [code = 30073323] Medical Ce nter Future Scheduled 2025-10-09 Lipid panel (procedure) [facility] Test 00:00:00 [code = 54447745] Medical Ce nter Future Scheduled 2025-10-09 Lipid panel (procedure) [facility] 00:00:00 [code = 28767663] Medical Ce nter Future Scheduled 2025-08-07 Lipid panel (procedure) [facility] Test 00:00:00 [code = 26983708] Medical Ce nter Future Scheduled 2024-01-[address] [facility] Test 00:00:00 [facility] r Screening (12+) [code = Tobacco Cessation Counseling and Screening (12+)] Future Scheduled 2024-01-[address] [facility] Test 00:00:00 [facility] Screening (12+) [code = Tobacco Cessation Counseling and Screening (12+)] Future Scheduled 2024-01-[address] [facility] Cente r Screening (12+) [code = Tobacco Cessation Counseling and Screening (12+)] Future Scheduled 2024-01-[address] [facility] Cent[facility] r Screening (12+) [code = Tobacco Cessation Counseling and Screening (12+)] Future Scheduled 2024-01-[address] [facility] Medical Cente r Screening (12+) [code = Tobacco Cessation Counseling and Screening (12+)] Future Scheduled 2023-10-[address] [facility] Medical Cente r Screening (12+) [code = Tobacco Cessation Counseling and Screening (12+)] Future Scheduled 2023-10-[address] [facility] Medical Cente r Screening (12+) [code = Tobacco Cessation Counseling and Screening (12+)] Future Scheduled 2023-10-[address] [facility] 00:[facility] Counseling [facility] Medical Cente r Screening (12+) [code = Tobacco Cessation Counseling and Screening (12+)] Future Scheduled 2023-10-[address] [facility] 00:[facility] Counseling [facility] Medical Cente r Screening (12+) [code = Tobacco Cessation Counseling and Screening (12+)] Future Scheduled 2023-08-[address] [facility] 00:[facility] Counseling [facility] Medical Cente r Screening (12+) [code = Tobacco Cessation Counseling and Screening (12+)] Future Scheduled 2023-08-07 Urine screening for [facility] 00[facility]00 protein (procedure) Medical Center [code = 663235999] Future Scheduled 2023-08-07 Urine screening for [facility] 00[facility]:00 protein (procedure) Medical Center [code = 626122092] Future Scheduled 2023-08-07 Urine screening for [facility] 00:00:00 protein (procedure) Medical Center [code = 983162143] Future Scheduled 2023-08-07 Urine screening for [facility] 00:00:00 protein (procedure) Medical Center [code = 512528000] Future Scheduled 2023-08-07 Urine screening for [facility] 00:00:00 protein (procedure) Medical Center [code = 125681561] Future Scheduled 2023-08-07 Urine screening for [facility] 00:00:00 protein (procedure) Medical Center [code = 147121180] Future Scheduled 2023-08-07 Urine screening for [facility] 00:00:00 protein (procedure) Medical Center [code = 069991339] Future Scheduled 2023-08-07 Urine screening for [facility] 00:00:00 protein (procedure) Medical Center [code = 578025414] Future Scheduled 2023-08-07 Urine screening for [facility] 00:00:00 protein (procedure) Medical Center [code = 475976628] Future Scheduled 2023-06-[address] [facility] 00:00:00 (Season Ended) [code = [facility] INFLUENZA VACCINE (Season Ended)] Future Scheduled 2023-06-[address] [facility] 00:00:00 (Season Ended) [code = Medic al Center INFLUENZA VACCINE (Season Ended)] Future Scheduled 2023-06-[address] [facility] 00:00:00 (Season Ended) [code = Medic al Center INFLUENZA VACCINE (Season Ended)] Future Scheduled 2023-06-[address] [facility] 00:00:00 (Season Ended) [code = Medic al Center INFLUENZA VACCINE (Season Ended)] Future Scheduled 2023-06-[address] [facility] 00:00:00 (Season Ended) [code = Medic al Center INFLUENZA VACCINE (Season Ended)] Future Scheduled 2023-01-02 Screening for malignant [facility] Test 10:43:29 neoplasm of colon of Medicin e (procedure) [code = 497674071] Future Scheduled 2023-01-02 COVID-19 Vaccine (#1) Ba [facility] Test 10:43:29 [code = COVID-19 of Medicine Vaccine (#1)] Future Scheduled 2023-01-02 Pneumococcal Combined [facility] Test 10:43:29 (1 - PCV) [code = of Medicin e Pneumococcal Combined (1 - PCV)] Future Scheduled 2023-01-02 TETANUS SHOT (ADULT) [facility] Test 10:43:29 [code = TETANUS SHOT of Medi cine (ADULT)] Future Scheduled 2023-01-02 BMI Follow Up Plan [facility] Test 10:43:29 [code = BMI Follow Up of Med icine Plan] Future Scheduled 2023-01-02 Human immunodeficiency B [facility] Test 10:43:29 virus screening of Medicine (procedure) [code = 754866768] Future Scheduled 2023-01-02 ZOSTER VACCINE (1 of 2) [facility] Test 10:43:29 [code = ZOSTER VACCINE of Me dicine (1 of 2)] Future Scheduled 2023-01-02 FLU VACCINE > 6 MONTHS B [facility] Test 10:43:29 [code = FLU VACCINE > 6 of M edicine MONTHS] Future Scheduled 2023-01-02 CBC W/AUTO DIFF WITH Ordered: [facility] Test 10:37:07 PLATELETS [code = 01/02/2023 of Medicin e 97908-4] Future Scheduled 2023-01-02 COMPREHENSIVE METABOLIC Ordered: [facility] Test 10:37:07 PANEL [code = 29034-3] 01/02/2023 of Me dicine Future Scheduled 2023-01-02 APTT [code = 33670-8] Ordered: [employer] [facility] 10:37:07 01/02/2023 of Medicine Future Scheduled 2023-01-02 PROTIME-INR [code = Ordered: [employer] [facility] 10:37:07 5902-2] 01/02/2023 of Medicine Future Scheduled 2023-01-02 MRI ABDOMEN W WO 1 Occurrences [facility] Test 10:37:07 CONTRAST [code = starting [facility] 39448-0] 01/02/2023 until 01/03/2024 Future Scheduled 2022-10-[address] [facility] 00:00:00 (12+) [code = [facility] Center DEPRESSION SCREENING (12+)] Future Scheduled 2022-10-[address] [facility] 00:00:00 (12+) [code = Medical Center DEPRESSION SCREENING (12+)] Future Scheduled 2022-10-[address] [facility] 00:00:00 (12+) [code = Medical Center DEPRESSION SCREENING (12+)] Future Scheduled 2022-10-[address] [facility] 00:00:00 (12+) [code = [facility] Center DEPRESSION SCREENING (12+)] Future Scheduled 2022-10-[address] [facility] 00:00:00 (12+) [code = Medical Center DEPRESSION SCREENING (12+)] Future Scheduled 2022-10-[address] [facility] 00:00:00 (12+) [code = Medical Center DEPRESSION SCREENING (12+)] Future Scheduled 2022-10-[address] [facility] 00:00:00 (12+) [code = Medical Center DEPRESSION SCREENING (12+)] Future Scheduled 2022-10-[address] [facility] 00:00:00 (12+) [code = Medical Center DEPRESSION SCREENING (12+)] Future Scheduled 2022-10-[address] [facility] 00:00:00 (12+) [code = Medical Center DEPRESSION SCREENING (12+)] Future Scheduled 2022-10-[address] [facility] measurement (procedure) [facility] [code = 51040638] Future Scheduled 2022-10-[address] [facility] 00[facility]00 measurement (procedure) [facility] [code = 77394994] Future Scheduled 2022-10-[address] [facility] 00[facility]00 measurement (procedure) [facility] [code = 36005820] Future Scheduled 2022-10-[address] [facility] 00[facility]:00 measurement (procedure) [facility] [code = 05087094] Future Scheduled 2022-10-[address] [facility] 00[facility]:00 measurement (procedure) [facility] Center [code = 69422606] Future Scheduled 2022-10-[address] [facility] 00[facility]:00 measurement (procedure) [facility] Center [code = 06655373] Future Scheduled 2022-10-[address] [facility] 00:00:00 measurement (procedure) [facility] vidal Center [code = 45594843] Future Scheduled 2022-10-[address] [facility] 00:00:00 measurement (procedure) [facility]idal Center [code = 25674858] Future Scheduled 2022-10-[address] [facility] 00:[facility]:00 measurement (procedure) [facility] vidal Center [code = 02119791] Future Scheduled 2022-06-21 INFLUENZA VACCINE (#1) C [...] [facility] 00:[facility]00 [code = 47925195] Medical Ce nter Future Scheduled 2000 Lipid panel (procedure) [facility] 00:00:00 [code = 82799736] Medical Ce nter Future Scheduled 1984 DTAP/TDAP/TD [...] 00:00:00 examination Medical Center (regime/therapy) [code = 421313122] Future Scheduled [address] [facility] examination Medical Center (regime/therapy) [code = 799051515] Future Scheduled 1975 DIABETIC EYE EXAM [code [facility] 00:00:00 = DIABETIC EYE EXAM] Medical Center Future Scheduled [address] [facility] 00[facility] examination Medical Center (regime/therapy) [code = 991700730] Future Scheduled 1975 DIABETIC EYE EXAM [code [facility] 00:00:00 = DIABETIC EYE EXAM] Medical Center Future Scheduled [address] [facility] 00:[facility]00 examination Medical Center (regime/therapy) [code = 363054731] Future Scheduled 1975 DIABETIC EYE EXAM [code [facility] 00:00:00 = DIABETIC EYE EXAM] Medical Center Future Scheduled [address] [facility] 00:[facility]:00 examination Medical Center (regime/therapy) [code = 599650030] Future Scheduled 1975 DIABETIC EYE EXAM [code [facility] 00:00:00 = DIABETIC EYE EXAM] Medical Center Future Scheduled [address] [facility] 00:[facility]:00 examination Medical Center (regime/therapy) [code = 999220278] Future Scheduled 1975 DIABETIC EYE EXAM [code [facility] 00:00:00 = DIABETIC EYE EXAM] Medical Center Future Scheduled [address] [facility] 00:[facility]:00 examination Medical Center (regime/therapy) [code = 341014279] Future Scheduled 1975 DIABETIC EYE EXAM [code [facility] 00:00:00 = DIABETIC EYE EXAM] Medical Center Future Scheduled [address] [facility] 00:[facility]:00 examination Medical Center (regime/therapy) [code = 398259283] Future Scheduled 1975 DIABETIC EYE EXAM [code [facility] 00:00:00 = DIABETIC EYE EXAM] Medical Center Future Scheduled [address] [facility] 00:[facility]:00 examination Medical Center (regime/therapy) [code = 848222069] Future Scheduled 1975 DIABETIC EYE EXAM [code [facility] 00:00:00 = DIABETIC EYE EXAM] Medical Center Future Scheduled [address] [facility] [code = CT Colonography [facility] (combo)] Future Scheduled 1965 Screening for malignant [facility] 00:00:00 neoplasm of colon Medical Ce nter (procedure) [code = 727443284] Future Scheduled 1965 Screening for malignant [facility] 00:00:00 neoplasm of colon Medical Ce nter (procedure) [code = 821202392] Future Scheduled 1965 Sigmoidoscopy [code = [facility] S[facility]oidoscopy] Medical Cente r Future Scheduled 1965 CT Colonography (combo) [facility] 00:00:00 [code = CT Colonography [facility] (combo)] Future Scheduled 1965 Screening for malignant [facility] 00:00:00 neoplasm of colon Medical Ce nter (procedure) [code = 812759805] Future Scheduled 1965 Screening for malignant [facility] 00:00:00 neoplasm of colon Medical Ce nter (procedure) [code = 741519786] Future Scheduled 1965 Sigmoidoscopy [code [facility] Sigmoidoscopy] Medical Cente r Future Scheduled 1965 CT Colonography (combo) [facility] 00:00:00 [code = CT Colonography [facility] (combo)] Future Scheduled 1965 Screening for malignant [facility] 00:00:00 neoplasm of colon Medical Ce nter (procedure) [code = 381749671] Future Scheduled 1965 Screening for malignant [facility] 00:00:00 neoplasm of colon Medical Ce nter (procedure) [code = 048755194] Future Scheduled 1965 Sigmoidoscopy [code [facility] Sigmoidoscopy] Medical Cente r Future Scheduled 1965 CT Colonography (combo) [facility] 00:00:00 [code = CT Colonography [facility] (combo)] Future Scheduled 1965 Screening for malignant [facility] 00:00:00 neoplasm of colon Medical Ce nter (procedure) [code = 083280326] Future Scheduled 1965 Screening for malignant [facility] 00:00:00 neoplasm of colon Medical Ce nter (procedure) [code = 923486882] Future Scheduled 1965 Sigmoidoscopy [code [facility] Sigmoidoscopy] Medical Cente r Future Scheduled 1965 CT Colonography (combo) [facility] 00:00:00 [code = CT Colonography [facility] (combo)] Future Scheduled 1965 Screening for malignant [facility] 00:00:00 neoplasm of colon Medical Ce nter (procedure) [code = 588129221] Future Scheduled 1965 Screening for malignant [facility] 00:00:00 neoplasm of colon Medical Ce nter (procedure) [code = 699845161] Future Scheduled 1965 Screening for malignant [facility] 00:00:00 neoplasm of colon Medical Ce nter (procedure) [code = 274090522] Future Scheduled 1965 Screening for malignant [facility] 00:00:00 neoplasm of colon Medical Ce nter (procedure) [code = 459340494] Future Scheduled 1965 Sigmoidoscopy [facility] S[facility]oidoscopy] Medical Dianne r Future Scheduled 1965 CT Colonography (combo) [facility] 00:00:00 [code = CT Colonography [facility] (combo)] Future Scheduled 1965 Screening for malignant [facility] 00:00:00 neoplasm of colon Medical Ce nter (procedure) [code = 731947385] Future Scheduled 1965 Screening for malignant [facility] 00:00:00 neoplasm of colon Medical Ce nter (procedure) [code = 365941210] Future Scheduled 1965 Screening for malignant [facility] 00:00:00 neoplasm of colon Medical Ce nter (procedure) [code = 414748749] Future Scheduled 1965 Screening for malignant [facility] 00:00:00 neoplasm of colon Medical Ce nter (procedure) [code = 560016596] Future Scheduled 1965 Sigmoidoscopy [facility]code [facility] Sigmoidoscopy] Medical Dianne r Future Scheduled 1965 CT Colonography (combo) [facility] 00:00:00 [code = CT Colonography [facility] (combo)] Future Scheduled 1965 Screening for malignant [facility] 00:00:00 neoplasm of colon Medical Ce nter (procedure) [code = 988428313] Future Scheduled 1965 Screening for malignant [facility] 00:00:00 neoplasm of colon Medical Ce nter (procedure) [code = 277220162] Future Scheduled 1965 Screening for malignant [facility] 00:00:00 neoplasm of colon Medical Ce nter (procedure) [code = 602809686] Future Scheduled 1965 Screening for malignant [facility] 00:00:00 neoplasm of colon Medical Ce nter (procedure) [code = 742485950] Future Scheduled 1965 Sigmoidoscopy [code [facility] Sigmoidoscopy] Medical Cente r Future Scheduled 1965 CT Colonography (combo) [facility] 00:00:00 [code = CT Colonography [facility]idal Center (combo)] Future Scheduled 1965 Screening for malignant [facility] 00:00:00 neoplasm of colon Medical Ce nter (procedure) [code = 577413865] Future Scheduled 1965 Screening for malignant [facility] 00:00:00 neoplasm of colon Medical Ce nter (procedure) [code = 882311748] Future Scheduled 1965 Screening for malignant [facility] 00:00:00 neoplasm of colon Medical Ce nter (procedure) [code = 878941516] Future Scheduled 1965 Screening for malignant [facility] 00:00:00 neoplasm of colon Medical Ce nter (procedure) [code = 987285658] Future Scheduled 1965 Sigmoidoscopy [facility] Sigmoidoscopy] Medical Cente r Future Scheduled 1965 CT Colonography (combo) [facility] 00:00:00 [code = CT Colonography [facility] (combo)] Future Scheduled 1965 Screening for malignant [facility] 00:00:00 neoplasm of colon Medical Ce nter (procedure) [code = 712517847] Future Scheduled 1965 Screening for malignant [facility] 00:00:00 neoplasm of colon Medical Ce nter (procedure) [code = 543383191] Future Scheduled 1965 Sigmoidoscopy [code [facility] Sigmoidoscopy] Medical Michellee r Future Scheduled 1965 CT Colonography (combo) [facility] 00:00:00 [code = CT Colonography [facility] (combo)] Future Scheduled 1965 Screening for malignant [facility] 00:00:00 neoplasm of colon Medical Ce nter (procedure) [code = 964377378] Future Scheduled 1965 Screening for malignant [facility] 00:00:00 neoplasm of colon Medical Ce nter (procedure) [code = 149159441] Future Scheduled 1965 Sigmoidoscopy [facility]code [facility] Sigmoidoscopy] Medical Michellee r Future Scheduled 1965 CT Colonography (combo) [facility] 00:00:00 [code = CT Colonography [facility] (combo)] Future Scheduled 1965 Screening for malignant [facility] 00:00:00 neoplasm of colon Medical Ce nter (procedure) [code = 166211716] Future Scheduled 1965 Screening for malignant [facility] 00:00:00 neoplasm of colon Medical Ce nter (procedure) [code = 609039171] Future Scheduled 1965 Sigmoidoscopy [code [facility] Sigmoidoscopy] Medical Dianne r Future Scheduled 1965 CT Colonography (combo) [facility] 00:00:00 [code = CT Colonography [facility] (combo)] Future Scheduled 1965 Screening for malignant [facility] 00:00:00 neoplasm of colon Medical Ce nter (procedure) [code = 519963153] Future Scheduled 1965 Screening for malignant [facility] 00:00:00 neoplasm of colon Medical Ce nter (procedure) [code = 579024759] Future Scheduled 1965 Sigmoidoscopy [facility] Sigmoidoscopy] Medical Dianne r Encounters Start End Encounter Admission Attending Care Care Encounter Source Date/Time Date/Time Type Type Clinicians Facility Department ID 2022-07-19 Outpatient [facility] Surgery [id number] [facility] 10:50:57 [facility] 2023-08-30 2023-08-30 Outpatient R TRINO [facility] [id number] Univers 09:00:00 09:00:00 BAR susan [facility] 2023-08-23 2023-08-23 Outpatient R CATHY [facility] [id number] Univers 08:15:00 08:15:00 ATTENDING susan [facility] 2023-06-11 2023-06-11 Outpatient R JACQUIERON [facility] [id number] Univers 10:40:00 10:40:00 BAR susan [facility] 2023-02-26 2023-02-26 [id number] Univers 13:00:00 13:00:00 BAR susan [facility] 2023-02-25 2023-02-25 Outpatient R JORGE A LYONS [facility] [id number] Univers 10:30:00 10:30:00 JORGE A LYONS [facility] 2023-02-22 2023-02-22 [id number] Univers 10:40:00 10:40:00 BAR susan [facility] 2023-02-21 2023-02-21 [id number] Univers 08:40:00 08:40:00 BAR [facility] 2023-02-21 2023-02-21 [facility] 1.2.840.114 [id number] Univers 00:00:00 00:00:00 Bar GANN 350.1.13.10 [place]icia [place] 4.2.7.2.686 Graham salmeron PROFESSIO [id number] Sc dical NAL [facility] Branch BUILDING 2023-02-18 2023-02-18 Outpatient R MELBA [facility] [id number] Univers 11:00:00 11:00:00 LILY susan [facility] 2023-02-13 2023-02-13 [id number] Univers 08:55:43 23:59:00 BAR [facility] 2023-02-13 2023-02-13 Business Analytics Analyst Lab, Ang - Db [facility] 1.2.840.1 [id number] Univers 09:00:00 09:15:00 Visit Bar Jameson [facility] [id number] [facility] 4.2.7.2.686 Juma as PRANAV?BLEA [id number] Sc dical [facility] [address] MEDICAL OFFICE [facility] 2023-02-13 2023-02-13 Orders Doctor FELISHA 1.2.840.114 [id number] Univers 00:00:00 00:00:00 Only Unassigned, ANUJ 350.1.13.10 ity of [place]azquez [facility] 4.2.7.2.686 Juma as [id number] [address] 2023-02-11 2023-02-11 Telephone [facility] 1.2.840.114 [id number] Univers 00:00:00 00:00:00 [facility] 350.1.13.10 [place] [id number] Sc dical NAL 044 [facility] 2023-02-09 2023-02-09 Refill Jorge A Lyons [facility] 1.2.840.114 [id number] Univers 00:00:00 00:00:00 [facility] 350.1.13.10 it y of [place] 4.2.7.2.686 Juma as PRANAV?BLEA [id number] Sc dicsaundra TAVAREZ [address] [facility] OFFICE [facility] 2023-02-09 2023-02-09 Patient Waldo [facility] 1.2.840.114 [id number] Univers 00:00:00 00:00:00 Secure [facility] 350.1.13.10 ity of [place] 4.2.7.2.686 Juma as PRANAV?BLEA [phone] Sc dical DEBRAEY [address] [facility] OFFICE [facility] 2023-02-08 2023-02-08 Refill Trino [facility] 1.2.840.114 [id number] Univers 00:00:00 00:00:00 Bar GANN 350.1.13.10 i [place] [id number] Sc dical NAL [address] [facility] 2023-01-30 2023-01-30 Business Analytics Analyst Lab, Ang - Db [facility] 1.2.840.1 14 [id number] Univers 11:15:00 11:30:00 Visit Bar Jameson [facility] 350.1.13.10 ity of [place] 4.2.7.2.686 Juma as PRANAV?BLEA [id number] Sc dicsaundra TAVAREZ [address] MEDICAL OFFICE BUILDING 2023-01-30 2023-01-30 Outpatient R [facility] [id number] Univers 11:15:00 11:15:00 BAR [facility] 2023-01-29 2023-01-29 Outpatient R [facility] [id number] Univers 15:00:00 15:59:45 BAR [facility] 2023-01-29 2023-01-29 Telemedici [facility] 1.2.840.114 [id number] Univers 15:00:00 15:59:45 ne Visit Bar GANN 350.1.13.10 [place] [id number] Sc dical NAL 044 [facility] 2023-01-29 2023-01-29 Patient [facility] 1.2.840.114 [id number] Univers 00:00:00 00:00:00 Secure Msg Bar GANN 350.1.13.10 [place] [id number] Sc dical NAL 0[address] Branch [facility] 2023-01-28 2023-01-28 [facility] [id number] [facility] 08:56:00 13:51:00 [facility] 2023-01-28 Outpatient EBATRIZ [facility] Surgery [id number] [facility] 08:56:00 13:51:00 [facility] 2023-01-28 2023-01-28 Anesthesia Ruddy [facility] [id number] 11:56:00 12:43:00 Event Jackeline [facility] 2023-01-28 2023-01-28 Anesthesia Ruddy Eastonoine [facility] [id number] 11:56:00 12:43:00 Event Jackeline [facility] 2023-01-28 2023-01-28 Surgery [place], [facility] [id number] 10:30:00 11:30:00 [facility] 2023-01-28 2023-01-28 Surgery [place], [facility] [id number] 10:30:00 11:30:00 [facility] 2023-01-28 2023-01-28 Outpatient HENDERSON, [facility] [id number] [facility] 08:17:00 08:17:00 [facility] [place] of Medicin e 2023-01-28 2023-01-28 Travel [facility] [id number] [facility] 00:[facility] 00:00:00 [facility] 2023-01-28 2023-01-28 Travel [facility] [id number] [facility] 00:[facility]:00 00:00:00 [facility] 2023-01-24 2023-01-24 Refill Trino [facility] 1.2.840.114 [id number] Univers 00:00:00 00:00:00 Bar GANN 350.1.13.10 i ty [facility] [place] [id number] Sc dical NAL 0[address] Branch BUILDING 2023-01-23 2023-01-23 Patient TAYLER ReillyJENISE 1.2.184.142 [id number] Univers 00:00:00 00:00:00 Secure [facility] 350.1.13.10 ity of [facility] 4.2.7.[place] [id number] [facility] 071 [place] 2023-01-15 2023-01-15 Refill Jorge A Lyons [facility] 1.2.840.114 [id number] Univers 00:00:00 00:00:00 HEALTH 350.1.13.10 it y of [place] 4.2.7.2.686 Juma as PRANAV?BLEA [id number] Sc vadim TAVAREZ 220 [facility] OFFICE [facility] 2023-01-13 2023-01-13 Refill Jorge A Lyons [facility] 1.2.840.114 [id number] Univers 00:00:00 00:00:00 HEALTH 350.1.13.10 it y of [place] 4.2.7.2.686 Juma as PRANAV?BLEA [id number] Sc vadim TAVAREZ 220 [facility] 2023-01-08 2023-01-08 Travel [facility] [id number] [facility] 00[facility]00:00 [facility] 2023-01-08 2023-01-08 Travel [facility] [id number] [facility] 00:[facility] 00:00:00 [facility] 2023-01-07 2023-01-07 Business Analytics Analyst Lab, Ang - Db [facility] 1.2.840.1 14 [id number] Univers 11:00:00 11:15:00 Visit Melba Lily [facility] 350.1.13.10 ity of [facility] 4.2.7.2.686 Juma as PRANAV?BLEA [id number] Sc vadim TAVAREZ 353 [facility] OFFICE [facility] 2023-01-07 2023-01-07 Outpatient R MELBA [facility] [id number] Univers 11:00:00 11:00:00 [facility] ity [facility] 2023-01-07 2023-01-07 Telephone [facility] 1..840.114 1 [id number] Univers 00:00:00 00:00:00 Peter DALYJIM 350.1.13.10 i ty of [place] [phone] Sc vadim LOPES [address] [place] [address] 2023-01-03 2023-01-03 Telephone [facility] 1.2.840.114 1 [id number] Univers 00:00:00 00:00:00 Bar GANN 350.1.13.10 i ty of [place].2.[place] [phone] Sc dicoh NAL [address] [place] [address] 2023-01-02 2023-01-02 Office DANIEL [facility] 1.2.840.114 [id number] [facility] 09:50:31 13:02:05 Visit CASSY Vora 350.1.13.21 Co llege 0.2.7.2.686 of [id number] [facility] 506 e 2023-01-02 2023-01-02 Orders Doctor FELISHA 1.2.840.[id number] [place] [address] 00:00:00 00:00:00 Only Unassigned, ANUJ 350.1.13.10 ity of [facility] 4.2.7.2.686 Juma as [id number] [place] [address] [place] 2023-01-02 2023-01-02 [facility] [id number] 00:00:00 00:00:00 Only [facility] 2023-01-02 2023-01-02 [facility] [id number] 00:00:00 00:00:00 Only [facility] 2022-12-31 2022-12-31 Telephone [facility] 1.2.840.114 1 [id number] Univers 00:00:00 00:00:00 Bar GANN 350.1.13.10 i ty of [facility] [place].7.2.[place] [id number] [address] 2022-12-27 2022-12-27 [facility] 1044 [id number] Univers 13:00:00 14:24:42 BAR wilkes of [facility] 2022-12-27 2022-12-27 [facility] 1.2.840.114 [id number] Univers 13:00:00 14:24:42 ne Visit Bar GANN 350.1.13.10 ity of [place].2.[place] [phone] Sc dicsaundra LOPES 044 [facility] 2022-12-26 2022-12-26 Patient [facility] 1.2.840.114 [id number] Univers 00:00:00 00:00:00 Secure Msg [facility] 350.1.13.10 ity of [facility] 4.2.7.2.686 [place] C[place] AT [phone] Sc vadim VINSON [address] [place] [address] 2022-12-25 2022-12-25 [facility] [id number] [id number] Univers 10:40:00 10:40:00 BAR susan [facility] 2022-12-24 2022-12-24 Office Melba [facility] 1.2.800.083 [id number] Univers 10:30:00 11:00:00 Visit [facility] 350.1.13.10 i ty of [facility] 4.2.7.2.686 [place] [id number] [facility] [address] 2022-12-24 2022-12-24 Outpatient R INGRID [facility] [id number] Univers 10:30:00 10:30:00 MAGALI [facility] 2022-12-24 2022-12-24 [facility] [id number] Univers 10:30:00 10:30:00 LILY susan [facility] 2022-12-24 2022-12-24 Patient [facility] 1.2.840.114 [id number] Univers 00:00:00 00:00:00 Secure Msg Bar GANN 350.1.13.10 ity of [place].2.[place] [id number] Sc vadim LOPES 044 [facility] 2022-12-20 2022-12-21 Emergency X [facility] [id number] Univers 21:25:00 01:21:00 VAISHALI wilkes [facility] 2022-12-20 2022-12-21 Emergency [facility] 1.2.613.741 [id number] Univers 21:25:00 01:21:00 Vaishali GANN 350.1.13.10 ity of [facility] 4.2.7.2.[place] [id number] [facility] [address] 2022-12-20 2022-12-20 Hospital [facility] 1.2.840.114 10 [id number] Univers 11:22:46 21:24:00 Encounter Bar GANN 350.1.13.10 ity of [place] 4.2.7.2.686 [place] [id number] [facility] [address] 2022-12-20 2022-12-20 Outpatient [facility] 1044 [id number] Univers 10:45:00 12:06:14 BAR [facility] 2022-12-20 2022-12-20 Business Analytics Analyst Lab, Critical access hospital 1.2.840.1 14 [id number] Univers 10:45:00 11:00:00 Visit Trino [facility] 350.1.13.10 ity of [place] 4.2.7.2.686 Juma as PRANAV?BLEA [id number] Sc vadim RICHARDSONEY [address] MEDICAL OFFICE BUILDING 2022-12-20 2022-12-20 Telephone [facility] 1.2.840.114 1 [id number] Univers 00:00:00 00:00:00 Bar GANN 350.1.13.10 i ty of [place].2.7.2.[place] [id number] Sc vadim LOPES [address] BUILDING 2022-12-17 2022-12-17 Outpatient R YOVANI GUPTA [facility] [id number] Univers 11:00:00 10:48:14 YOVANI GUPTA [facility] 2022-12-17 2022-12-17 Orders Doctor FELISHA 1.2.840.114 [id number] Univers 00:00:00 00:00:00 Only Unassigned, ANUJ 350.1.13.10 ity of Vazquez [facility] 4.2.7.2.686 Juma as [id number] [address] 2022-12-14 2022-12-14 Outpatient R [facility] [id number] Univers 15:20:00 16:21:32 BAR wilkes [facility] 2022-12-14 2022-12-14 Telemedici [facility] 1.2.840.114 [id number] Univers 15:20:00 16:21:32 ne Visit Bar GANN 350.1.13.10 ity of [facility] 4.2.7.2.[place] [phone] Sc dical [address] 2022-12-14 2022-12-14 Patient [facility] 1.2.840.114 100 [id number] Univers 00:00:00 00:00:00 Secure Msg Bar GANN 350.1.13.10 ity of [place] 4.2.7.2.[place] [id number] Sc dic[address] 2022-12-11 2022-12-13 Outpatient R [facility] [id number] Univers 15:20:00 14:01:52 BAR wilkes [facility] 2022-12-12 2022-12-12 Telephone [facility] 1.2.840.114 1 [id number] Univers 00:00:00 00:00:00 Bar GANN 350.1.13.10 i ty of [facility] 4.2.7.2.[place] [phone] Sc dic[address] 2022-12-11 2022-12-11 Telemedici [facility] 1.2.840.114 [id number] Univers 15:20:00 15:40:00 ne Visit Bar GNAN 350.1.13.10 ity of [facility] 4.2.7.2.[place] 440.5470491 Sc dic[address] 2022-12-11 2022-12-11 Outpatient R [facility] 1044 [id number] Univers 13:00:00 13:00:00 BAR katrin [facility] 2022-12-11 2022-12-11 Patient [facility] 1.2.840.114 100 [id number] Univers 00:00:00 00:00:00 Outreach Bar GANN 350.1.13.10 ity of [facility] 4.2.7.2.[place] [phone] Sc dical NAL 044 [facility] 2022-12-11 2022-12-11 Telephone [facility] 1.2.840.114 1 [id number] Univers 00:00:00 00:00:00 Bar GANN 350.1.13.10 i ty of [facility] 4.2.7.2.[place] [phone] Sc dical NAL [address] [place] [address] 2022-12-07 2022-12-07 Outpatient R [facility] 1044 [id number] Univers 16:00:00 16:52:19 PETER katrin of [facility] 2022-12-07 2022-12-07 Telemedici [facility] 1.2.840.114 [id number] Univers 16:00:00 16:52:19 ne Visit Bar GANN 350.1.13.10 ity of [facility] 4.2.7.2.[place] [id number] Sc dical NAL [address] [place] [address] 2022-12-07 2022-12-07 Patient [facility] 1.2.840.114 100 [id number] Univers 00:00:00 00:00:00 Secure Msg Bar GANN 350.1.13.10 ity of [facility] 4.2.7.2.[place] [id number] Sc dical NAL [address] [place] [address] 2022-12-07 2022-12-07 Telephone [facility] 1.2.840.114 1 [id number] Univers 00:00:00 00:00:00 Bar GANN 350.1.13.10 i ty of [facility] 4.2.7.2.[place] [id number] Sc dical NAL 231 [facility] 2022-12-05 2022-12-05 Orders Doctor FELISHA 1.2.840.114 [id number] Univers 00:00:00 00:00:00 Only Unassigned, ANUJ 350.1.13.10 ity of [place] [facility] 4.2.7.2.686 Juma as [id number] [address] 2022-12-04 2022-12-04 Telephone [facility] 1.2.840.114 1 [id number] Univers 00:00:00 00:00:00 Bar GANN 350.1.13.10 i ty of [place] 4.2.7.2.686 [place] [phone] Sc dical NAL 044 [facility] 2022-12-03 2022-12-03 Telephone [facility] 1.2.840.114 1 [id number] Univers 00:00:00 00:00:00 Bar GANN 350.1.13.10 i ty of [place] 4.2.7.2.686 [place] [phone] Sc dical NAL 044 [facility] 2022-11-30 2022-11-30 Patient [facility] 1.2.840.114 100 [id number] Univers 00:00:00 00:00:00 Secure Msg Bar GANN 350.1.13.10 ity of [place] 4.2.7.2.686 [place] [id number] Sc dical NAL 225 [facility] 2022-11-27 2022-11-27 Office [facility] 1.2.840.114 100 [id number] Univers 11:00:00 11:40:00 Visit Bar GANN 350.1.13.10 i ty of [place] 4.2.7.2.686 [place] [id number] Sc dical NAL 044 [facility] 2022-11-27 2022-11-27 Outpatient R [facility] 1043 [id number] Univers 11:00:00 11:00:00 PETER ity of [facility] 2022-11-26 2022-11-26 Telephone [facility] 1.2.840.114 1 [id number] Univers 00:00:00 00:00:00 Bar GANN 350.1.13.10 i ty of [place] 4.2.7.2.686 [place] [id number] Sc dicsaundra [facility] 044 [facility] 2022-11-23 2022-11-23 Telephone [facility] 1.2.840.114 1 [id number] Univers 00:00:00 00:00:00 Bar GANN 350.1.13.10 i ty of [facility] 4.2.7.2.686 [place] [phone] [address] 2022-11-21 2022-11-21 Outpatient R JORGE A LYONS [facility] [id number] Univers 11:30:00 12:36:29 JORGE A LYONS ity of [facility] 2022-11-21 2022-11-21 Office Jorge A Lyons [facility] 1.2.840.114 [id number] Univers 11:30:00 12:36:29 Visit HEALTH 350.1.13.10 it y of [place] 4.2.7.2.686 Juma as PRANAV?BLEA [id number] [address] OFFICE [facility] 2022-11-20 2022-11-20 Orders Doctor FELISHA 1.2.840.114 [id number] Univers 00:00:00 00:00:00 Only Unassigned, ANUJ 350.1.13.10 ity of [place] [facility] 4.2.7.2.686 Juma as [id number] [address] 2022-11-19 2022-11-19 Telephone [facility] 1.2.840.114 1 [id number] Univers 00:00:00 00:00:00 Bar GANN 350.1.13.10 i ty of [facility] 4.2.7.2.[place] 373.5000123 Sc dic[address] 2022-11-19 2022-11-19 Refill [facility] 1.2.840.114 100 [id number] Univers 00:00:00 00:00:00 Bar GANN 350.1.13.10 i ty of [facility] 4.2.7.2.[place] 569.2046430 Sc dicsaundra LOPES [address] [facility] 2022-11-19 2022-11-19 Refyi [facility] 1.2.840.114 100 [id number] Univers 00:00:00 00:00:00 Bar GANN 350.1.13.10 i ty of [facility] 4.2.7.2.[place] [id number] Sc dicsaundra NAL [address] [facility] 2022-11-13 2022-11-13 Telephone Jorge A Lyons [facility] 1.2.112.221 [id number] Univers 00:00:00 00:00:00 HEALTH 350.1.13.10 it y of [place] 4.2.7.2.686 Juma as PRANAV?BLEA 522.3817293 [facility] DAYSI 220 [facility] OFFICE BUILDING 2022-11-12 2022-11-12 Patient Laurie [facility] 1.2.840.114 [id number] Univers 00:00:00 00:00:00 Secure Msg José [facility] 350.1.13.10 ity of [place] 4.2.7.2.[place] [id number] [address] 2022-11-09 2022-11-09 [facility] [id number] 00:00:00 00:00:00 [facility] 2022-11-09 2022-11-09 [facility] [id number] 00:00:00 00:00:00 [facility] 2022-11-08 2022-11-08 [facility] 1.2.840.114 [id number] Univers 00:00:00 00:00:00 Bar GANN 350.1.13.10 i ty of [place] 4.2.7.2.686 [place] 519.4687795 Sc dicsaundra NAL [address] [place] [address] 2022-11-08 2022-11-08 Refill Jorge A Lyons [facility] 1.2.840.114 [id number] Univers 00:00:00 00:00:00 PRIMARY 350.1.13.10 it y of C[place] 4.2.7.2.[place] 604.7542225 [facility] [address] 2022-11-08 2022-11-08 Orders Doctor FELISHA 1.2.840.114 [id number] Univers 00:00:00 00:00:00 Only Unassigned, ANUJ 350.1.13.10 ity of [place] [facility] 4.2.7.2.686 Juma as [id number] [address] 2022-11-07 2022-11-07 Telephone [facility] 1.2.840.114 9 [id number] Univers 00:00:00 00:00:00 Bar GANN 350.1.13.10 i ty of [place] 4.2.7.2.686 [place] 558.5226188 Sc dical NAL 044 [facility] 2022-11-06 2022-11-06 Patient [facility] 1.2.840.114 [id number] Univers 00:00:00 00:00:00 Secure Msg Bar GANN 350.1.13.10 ity of [place] 4.2.7.2.686 [place] 078.8746017 Sc dical NAL 044 [facility] 2022-11-05 2022-11-05 Patient Jorge A Lyons [facility] 1.2.840.114 [id number] Univers 00:00:00 00:00:00 Secure Msg [facility] 350.1.13.10 ity of [place] 4.2.7.2.686 Juma as PRANAV?BLEA 740.4372873 [facility] [address] MEDICAL OFFICE BUILDING 2022-10-25 2022-10-25 Office [facility] [id number] 13:00:00 13:30:00 Visit [facility] 2022-10-25 2022-10-25 [facility] [id number] 13:00:00 13:30:00 Visit [facility] 2022-10-25 2022-10-25 Outpatient [facility] [id number] SLE 12:21:43 12:21:43 JAYLIN 2022-10-25 2022-10-25 Telephone [facility] 1.2.840.114 9 [id number] Univers 00:00:00 00:00:00 Bar GANN 350.1.13.10 i ty of [facility] 4.2.7.2.[place] [id number] Sc dical [facility] 044 [facility] 2022-10-23 2022-10-23 Orders Doctor FELISHA 1.2.840.114 [id number] Univers 00:00:00 00:00:00 Only Unassigned, ANUJ 350.1.13.10 ity of [facility] 4.2.7.2.686 Juma as [id number] [address] 2022-10-23 2022-10-23 [facility] [id number] 00:00:00 00:00:00 [facility] 2022-10-23 2022-10-23 [facility] [id number] 00:00:00 00:00:00 [facility] 2022-10-18 2022-10-18 RefJorge A Beach [facility] 1.2.840.114 [id number] Univers 00:00:00 00:00:00 [facility] 350.1.13.10 it y of [place] 4.2.7.2.686 Juma as PRANAV?BLEA 266.7724471 Sc [address] MEDICAL OFFICE BUILDING 2022-10-17 2022-10-17 Outpatient R TRINO [facility] [id number] Univers 11:00:00 12:17:07 BAR wilkes of [facility] 2022-10-17 2022-10-17 Office [facility] 1.2.840.114 [id number] [facility] 11:00:00 12:17:07 Visit Bar GANN 350.1.13.10 i ty of [facility] 4.2.7.2.[place] [id number] Sc dical NAL 044 [facility] 2022-10-17 2022-10-17 Telephone Trino [facility] 1.2.840.114 9 [id number] [facility] 00:00:00 00:00:00 Bar GANN 350.1.13.10 i kayla gustavo RAMSE[place] 4.2.7.2.686 Graham MARTINEZ [id number] Sc vadim [address] 2022-10-16 2022-10-16 [facility] [id number] 00:00:00 00:00:00 Only [facility] 2022-10-16 2022-10-16 Orders [facility] [id number] 00:00:00 00:00:00 Only [facility] 2022-10-08 2022-10-13 Hospital ER [facility] [id number] [facility] 21:32:00 12:27:00 Encounter Berenice Quesada, Melly [facility] 2022-10-08 2022-10-13 [facility] [id number] [facility] 21:32:00 12:27:00 Encounter Berenice Quesada, Melly Medic [facility] 2022-10-08 2022-10-13 Inpatient ER MELLY OLSEN [facility] General Med 2 [id number] [facility] 21:32:00 12:27:00 2022-10-11 2022-10-11 [facility] [id number] 17:27:00 18:21:00 Event [facility] 2022-10-11 2022-10-11 [facility] [id number] 17:27:00 18:21:00 Event [facility] 2022-10-11 2022-10-11 Surgery Cabrales [facility] [id number] 14:00:00 15:00:00 [facility] 2022-10-11 2022-10-11 Surgery Sheikh [facility] [id number] [facility] 14:00:00 15:00:00 [facility] 2022-10-09 2022-10-09 Outpatient [facility] [id number] [facility] 00:00:00 23:59:00 [facility] 2022-10-08 2022-10-08 Outpatient [facility] [id number] [facility] 21:32:00 23:59:00 [facility] 2022-10-05 2022-10-05 [facility] 1.2.840.114 [id number] Univers 00:00:00 00:00:00 Secure Msg Bar GANN 350.1.13.10 [place].2.[place] 993.5305305 Sc dic[address] 2022-09-24 2022-09-24 Telephone [facility] 1.2.840.114 9 [id number] Univers 00:00:00 00:00:00 Bar GANN 350.1.13.10 i ty [place].2.[place] [id number] [address] 2022-09-24 2022-09-24 Patient [facility] 1.2.840.114 [id number] Univers 00:00:00 00:00:00 Secure Msg Chanel [facility] 350.1.13.10 ity of [place].2.7.2.[place] C[place] [id number] [facility] AND EVANGELISTA [address] [facility] 2022-09-19 2022-09-19 [facility] [id number] Univers 10:40:00 10:40:00 BAR wilkes of [facility] 2022-09-16 2022-09-16 [facility] 1.2.840.114 [id number] Univers 00:00:00 00:00:00 Bar GANN 350.1.13.10 i ty of [place].2.[place] [id number] Sc henokoh TARA [address] [place] [address] 2022-09-16 2022-09-16 Refill [facility] 1.2.840.114 [id number] Univers 00:00:00 00:00:00 Bar GANN 350.1.13.10 i ty of [facility] 4.2.7.2.[place] [id number] [address] 2022-09-16 2022-09-16 [facility] 1.2.840.114 [id number] Univers 00:00:00 00:00:00 [facility] 350.1.13.10 it y of [facility] 4.2.7.2.686 Juma as PRANAV?BLEA [id number] [address] OFFICE [facility] 2022-09-12 2022-09-12 Telephone [facility] 1.2.840.114 [id number] Univers 00:00:00 00:00:00 Bar GANN 350.1.13.10 i ty of [place].2.[place] [id number] [address] 2022-09-07 2022-09-07 Outpatient R [facility] [id number] Univers 10:40:00 11:52:38 BAR wilkes [facility] 2022-09-07 2022-09-07 Office [facility] 1.2.840.114 [id number] Univers 10:40:00 11:52:38 Visit Bar GANN 350.1.13.10 i ty of [facility] 4.2.7.2.[place] [id number] [address] 2022-09-07 2022-09-07 Telephone [facility] 1.2.840.114 9 [id number] Univers 00:00:00 00:00:00 Bar GANN 350.1.13.10 i ty of [facility] 4.2.7.2.[place] [id number] Sc dical NAL [address] [place] [address] 2022-09-07 2022-09-07 Orders Doctor FELISHA 1.2.840.114 [id number] [facility] 00:00:00 00:00:00 Only Unassigned, ANUJ 350.1.13.10 ity of Vazquez [facility] 4.2.7.2.686 Juma as [id number] [address] 2022-09-07 2022-09-07 Telephone [facility] 1.2.840.114 [id number] Univers 00:00:00 00:00:00 Bar GANN 350.1.13.10 i ty [place] [id number] Sc dic[address] 2022-09-04 2022-09-04 Telephone [facility] 1.2.840.114 [id number] Univers 00:00:00 00:00:00 Bar GANN 350.1.13.10 i ty [place] [phone] Sc dical NAL [address] [place] [address] 2022-09-04 2022-09-04 [facility] [id number] 00:00:00 00:00:00 [facility] 2022-09-04 2022-09-04 [facility] [id number] [facility] 00:00:00 00:00:00 [facility] 2022-09-03 2022-09-03 Telephone [facility] 1.2.840.114 [id number] [facility] 00:00:00 00:00:00 Bar GANN 350.1.13.10 i ty [place]2.[place] [id number] Sc dical NAL [address] [place] [address] 2022-08-31 2022-08-31 [id number] Univers 14:20:00 14:20:00 BAR wilkes [facility] 2022-08-31 2022-08-31 [id number] Univers 14:20:00 14:20:00 BAR wilkes [facility] 2022-08-26 2022-08-26 [facility] 1.2.840.114 [id number] Univers 00:00:00 00:00:00 Bar SANJUANITA 350.1.13.10 i ty [facility] 4.2.7.2.686 Graham salmeron PROFESSIO [id number] [address] 2022-08-22 2022-08-22 [facility] [id number] 00:00:00 00:00:00 [facility] 2022-08-22 2022-08-22 [facility] [id number] 00:00:00 00:00:00 [facility] 2022-08-21 2022-08-21 [facility] 1.2.840.114 [id number] Univers 00:00:00 00:00:00 Bar GANN 350.1.13.10 i ty of [facility] 4.2.7.2.686 Graham salmeron PROFESSIO [id number] [address] 2022-08-14 2022-08-14 Outpatient EL [facility] [id number] [facility] 13:56:39 23:59:00 2022-08-14 2022-08-14 [facility] [id number] 11:00:00 23:59:00 Encounter [facility] 2022-08-14 2022-08-14 [place] [facility] [id number] 11:00:00 23:59:00 Encounter [facility] 2022-08-14 2022-08-14 Outpatient EL [facility]H [facility] [id number] [facility] 00:00:00 00:00:00 2022-08-14 2022-08-14 Travel [facility] [id number] [facility] 00:[facility]:00 00:00:00 [facility] 2022-08-14 2022-08-14 Travel [facility] [id number] [facility] 00:00:00 00:00:00 [facility] 2022-08-10 2022-08-10 Outpatient R REHANA [facility] [id number] Univers 11:30:00 11:30:00 CHANEL wilkes [facility] 2022-08-08 2022-08-08 Orders Doctor FELISHA 1.2.840.114 [id number] Univers 00:00:00 00:00:00 Only Unassigned, ANUJ 350.1.13.10 ity of [facility] 4.2.7.2.686 Juma as [id number] [address] 2022-08-07 2022-08-07 Business Analytics Analyst Celestino, [facility] Main [facility] 1.2.8 40.114 [id number] Univers 17:00:00 17:15:00 Visit Bar Jameson 350.1.13.10 it[place] of [place] [id number] Sc dical NAL 353 [facility] 2022-08-07 2022-08-07 [facility] [id number] Univers 14:40:00 16:43:40 BAR wilkes [facility] 2022-08-07 2022-08-07 Office [facility] 1.2.840.114 [id number] Univers 14:40:00 16:43:40 Visit Bar GANN 350.1.13.10 i ty of [place].7.2.[place] [id number] Sc dical NAL 044 [facility] 2022-08-07 2022-08-07 Orders Doctor FELISHA 1.2.840.114 [id number] Univers 00:00:00 00:00:00 Only Unassigned, ANUJ 350.1.13.10 ity of [place] [facility] 4.2.7.2.686 Juma as [id number] [facility] [address] [place] 2022-08-03 2022-08-03 Telephone [facility] 1.2.840.114 [id number] Univers 00:00:00 00:00:00 Bar GANN 350.1.13.10 i ty of [place] [id number] Sc dicsaundra NAL [address] [place] [address] 2022-08-03 2022-08-03 Telephone [facility] 1.2.840.114 [id number] Univers 00:00:00 00:00:00 Bar GANN 350.1.13.10 i ty of [place] [id number] Sc dicoh NAL [address] [place] [address] 2022-07-31 2022-07-31 Outpatient EL SLEH SLEH [id number] [facility] 00:00:00 00:00:00 2022-07-31 2022-07-31 Orders Doctor FELISHA 1.2.840.114 [id number] [facility] 00:00:00 00:00:00 Only Unassigned, ANUJ 350.1.13.10 ity [facility] 4.2.7.2.686 Juma as [id number] [address] 2022-07-31 2022-07-31 Telephone [facility] 1.2.840.114 [id number] Univers 00:00:00 00:00:00 Bar GANN 350.1.13.10 i ty of [place].7.2.[place] [id number] [address] 2022-07-30 2022-07-30 Telephone [facility] 1.2.840.114 [id number] Univers 00:00:00 00:00:00 Bar GANN 350.1.13.10 i ty of [place].7.2.[place] [id number] Sc dicsaundra [address] 2022-07-26 2022-07-26 Emergency E DANIEL, BL BL 7500 MHBL 13:53:00 19:44:00 EDIN 2022-07-26 2022-07-26 [id number] [facility] 10:40:00 10:40:00 BAR [facility] 2022-07-20 2022-07-20 Outpatient R JOSÉ LUIS BRENNAN [facility] [id number] Univers 14:30:00 14:30:00 JOSÉ LUIS BRENNAN susan [facility] 2022-07-19 2022-07-19 Abstract [facility] [id number] 00:00:00 00:00:00 [facility] 2022-07-19 2022-07-19 Abstract [facility] [id number] 00:00:00 00:00:00 [facility] 2022-07-18 2022-07-18 Outpatient R JACQUIEANATRISHATURNER [facility] [id number] [facility] 13:40:00 13:40:00 [facility] 2022-07-17 2022-07-17 Office [facility] [id number] 14:00:00 15:00:00 Visit [facility] 2022-07-17 2022-07-17 [facility] [id number] 14:00:00 15:00:00 Visit [facility] 2022-07-17 2022-07-17 Outpatient [facility] [id number] [facility] 13:37:03 13:37:03 [place] 2022-07-16 2022-07-16 Refill Jorge A Lyons [facility] 1.2.840.114 [id number] Univers 00:00:00 00:00:00 HEALTH 350.1.13.10 it y of [place] 4.2.7.2.686 Juma as PRANAV?BLEA [id number] [address] MEDICAL OFFICE BUILDING 2022-07-16 2022-07-16 [facility] 1.2.840.114 [id number] Univers 00:00:00 00:00:00 Bar GANN 350.1.13.10 i ty of [place] 4.2.7.2.686 Graham NEALANNA [id number] [facility]OP[facility] [address] [place] [address] 2022-07-13 2022-07-13 Telephone Inez [facility] [id number] 00:00:00 00:00:00 Imani [facility] 2022-07-13 2022-07-13 Telephone Inez [facility] [id number] 00:00:00 00:00:00 [facility] 2022-06-26 2022-07-02 [facility] [id number] [facility] 17:43:00 13:14:00 [facility] 2022-06-26 2022-07-02 [facility] [id number] 17:43:00 13:14:00 Encounter TaraalanaRatna [facility] 2022-06-26 2022-07-[address] [facility] [id number] 17:43:00 13:14:00 Encounter Taraalana Ratnaroni Rojo [facility] 2022-07-02 2022-07-02 Travel [facility] [id number] [facility] 00:00:00 00:00:00 [facility] 2022-07-02 2022-07-02 Travel [facility] [id number] [facility] 00:00:00 00:00:00 [facility] 2022-06-27 2022-06-27 Anesthesia Karime [facility] [id number] 09:58:00 10:55:00 Event [facility] 2022-06-27 2022-06-27 Anesthesia Karime [facility] [id number] 09:58:00 10:55:00 Event [facility] 2022-06-27 2022-06-27 Surgery Em [facility] [id number] 09:02:00 09:57:00 [facility] 2022-06-27 2022-06-27 Surgery Em [facility] [id number] 09:02:00 09:57:00 [facility] 2022-06-26 2022-06-26 Outpatient [facility] [id number] [facility] 00:00:00 23:59:00 Ismael Medicin e 2022-06-26 2022-06-26 Outpatient Artie KRUEGER [facility] [id number] Univers 11:30:00 11:30:00 WILLI wilkes [facility] 2022-06-26 2022-06-26 Outpatient CHANEL TOLENTINO [id number] Chanel 00:00:00 00:00:00 RICHARD Seybol d 2022-06-26 2022-06-26 [facility] [id number] 00:00:00 00:00:00 [facility] 2022-06-26 2022-06-26 [facility] [id number] 00:00:00 00:00:00 [facility] 2022-06-26 2022-06-26 [facility] [id number] 00:00:00 00:00:00 [facility] 2022-06-26 2022-06-26 [facility] [id number] 00:00:00 00:00:00 [facility] 2022-06-08 2022-06-08 Patient Jorge A Lyons [facility] 1.2.840.114 [id number] [facility] 00:00:00 00:00:00 Secure Msg PRIMARY 350.1.13.10 ity of CARE 4.2.7.2.686 Graham CAMERON [id number] [place] [address] [address] 2022-06-08 2022-06-08 Refyi [facility] 1.2.840.114 [id number] Univers 00:00:00 00:00:00 Peter [place] 350.1.13.10 i [place].2.[place] [id number] [facility] 044 [facility] 2022-06-05 2022-06-05 Outpatient R LINDA ROMAN [facility] [id number] Univers 10:24:39 23:59:00 LINDA ROMAN i ty of [facility] 2022-06-05 2022-06-05 [facility] 1.2.840.114 [id number] Univers 10:00:00 23:59:00 Encounter Linda GANN 350.1.13.10 it[place] of [place]2.7.2.[place] [id number] [address] 2022-06-01 2022-06-01 Outpatient R TRINO [facility] [id number] Univers 08:00:00 08:00:00 BAR wilkes [facility] 2022-05-18 2022-05-18 Telephone Yuly [facility] 1.2.019.819 [id number] Univers 00:00:00 00:00:00 PRIMARY 350.1.13.10 it y of [place].2.[place] [id number] [facility] [address] 2022-05-15 2022-05-15 Refill Yuly [facility] 1.2.840.114 [id number] Univers 00:00:00 00:00:00 HEALTH 350.1.13.10 it y of [place] 4.2.7.2.686 Juma as PRANAV?BLEA [id number] [facility] KNEY [address] MEDICAL OFFICE BUILDING 2022-05-11 2022-05-11 Patient Jorge A Lyons [facility] 1.2.840.114 [id number] Univers 00:00:00 00:00:00 Secure Msg PRIMARY 350.1.13.10 it[place] of [place] 4[place]2.7.2.[place] [id number] [address] 2022-05-02 2022-05-02 Office [facility] 1.2.840.114 [id number] Univers 13:15:00 13:30:00 Visit Genesis Dean [facility] 350.1.13.10 ity of [place] 4.2.7.2.686 [place] salmeron [facility] [id number] [facility] PRIMARY & [facility] [place] [facility] 2022-05-02 2022-05-02 [facility] [id number] Univers 13:15:00 13:15:00 GENESIS wilkes [facility] 2022-05-02 2022-05-02 [facility] [id number] Univers 13:15:00 13:15:00 GENESIS wilkes [facility] 2022-05-02 2022-05-02 Outpatient [facility] [id number] Univers 13:15:00 13:15:00 GENESIS wilkes [facility] 2022-05-02 2022-05-02 Patient Jorge A Lyons [facility] 1.2.840.114 [id number] Univers 00:00:00 00:00:00 Secure Msg PRIMARY 350.1.13.10 it[place] of [place].2.[place] JAGJITILLION [id number] [address] 2022-05-02 2022-05-02 Patient Jorge A Lyons [facility] 1.2.840.114 [id number] Univers 00:00:00 00:00:00 Secure Msg PRIMARY 350.1.13.10 it[place] [id number] [address] 2022-04-30 2022-04-30 Emergency X EDA [facility] ERT [id number] Univers 11:19:00 15:46:00 NYASIA wilkes [facility] 2022-04-30 2022-04-30 Emergency [facility] 1.2.190.889 [id number] Univers 11:19:00 15:46:00 Nyasia GANN 350.1.13.10 i ty of [facility] 4.2.7.2.[place] [id number] [facility] [address] [place] 2022-04-30 2022-04-30 Patient [facility] 1.2.840.114 [id number] Univers 00:00:00 00:00:00 Secure Msg Bar KAUFFMANJIM 350.1.13.10 it[place] of [place] [id number] Sc dical NAL [address] [place] [address] 2022-04-27 2022-04-27 Outpatient R [facility] [id number] Univers 08:00:00 09:00:27 BAR wilkes [facility] 2022-04-27 2022-04-27 Office [facility] 1.2.840.114 [id number] Univers 08:00:00 09:00:27 Visit Bar SANJUANITA 350.1.13.10 i ty of [place] 4.2.7.2.686 [facility] s PROFESSIO [id number] [address] 2022-04-27 2022-04-27 Outpatient [facility] [id number] Univers 08:00:00 08:00:00 BAR britosusan [facility] 2022-04-27 2022-04-27 Refill [facility] 1.2.840.114 [id number] Univers 00:00:00 00:00:00 Bar GANN 350.1.13.10 i ty of [place]2.[place].2.[place] [id number] [facility] NAL [address] [place] [address] 2022-04-17 2022-04-17 Outpatient [facility] [id number] Univers 14:30:00 14:30:00 WILLI itsusan [facility] 2022-04-17 2022-04-17 Orders Doctor FELISHA 1.2.840.114 [id number] Univers 00:00:00 00:00:00 Only Unassigned, ANUJ 350.1.13.10 ity of [place] [facility] 4.2.7.2.686 Juma as [id number] [address] 2022-04-16 2022-04-16 Outpatient R MADDIE [facility] [id number] Univers 11:30:00 11:46:28 ESTRADA ity [facility] 2022-04-16 2022-04-16 Outpatient R MADDIE [facility] [id number] Univers 11:30:00 11:46:28 ESTRADA ity [facility] 2022-04-16 2022-04-16 Office [facility] 1.2.840.114 [id number] Univers 11:30:00 11:46:28 Visit [facility] SANJUANITA 350.1.13.10 i ty of [facility] 4.2.7.2.[place] [id number] Sc dical [facility] 204 [facility] 2022-04-16 2022-04-16 Outpatient R MADDIE [facility] [id number] Univers 11:30:00 11:46:28 [facility]-04-12 2022-04-12 Patient [facility] 1.2.840.114 [id number] Univers 00:00:00 00:00:00 Secure Msg Peter [place] 350.1.13.10 ity of [facility] 4.2.7.2.[place] [id number] Sc dical NAL 225 [facility] 2022-04-12 2022-04-12 Patient [facility] 1.2.840.114 [id number] Univers 00:00:00 00:00:00 Secure Msg Peter [place] 350.1.13.10 ity of [place] 4.2.7.2.686 [place] [id number] Sc dical NAL 044 [facility] 2022-04-12 2022-04-12 Patient [facility] 1.2.840.114 [id number] Univers 00:00:00 00:00:00 Secure Msg Peter [place] 350.1.13.10 ity of [facility] 4.2.7.2.[place] [id number] Sc dical NAL 044 [facility] 2022-04-122022-04-12 Patient [facility] 1.2.840.114 [id number] Univers 00:00:00 00:00:00 Secure Msg Bar GANN 350.1.13.10 ity of [facility] 4.2.7.2.[place] [id number] Sc dical NAL 044 [facility] 2022-04-06 2022-04-06 Office [facility] 1.2.840.114 [id number] Univers 09:30:00 10:30:12 Visit [facility] 350.1.13.10 ity of [facility] 4.2.7.2.686 [place] CENTER AT [id number] Sc vadim VINSON 188 [facility] 2022-04-06 2022-04-06 Outpatient R [facility] [id number] Univers 09:30:00 10:30:12 [facility] 2022-04-06 2022-04-06 Outpatient R [facility] [id number] Univers 09:30:00 09:30:00 [facility] 2022-04-02 2022-04-02 Patient [facility] 1.2.840.114 [id number] Univers 00:00:00 00:00:00 Secure Msg Bar GANN 350.1.13.10 ity of [place] 4.2.[place].2.[place] [id number] Sc dical NAL 044 [facility] 2022-03-30 2022-03-30 [facility] 1.2.840.114 [id number] Univers 10:38:11 23:59:00 Encounter Bar GANN 350.1.13.10 it[place] of [place] 4.2.7.2.[place] [id number] [facility] [address] 2022-03-30 2022-03-30 Outpatient R [facility] [id number] Univers 08:00:00 10:23:21 BAR ity [facility] 2022-03-30 2022-03-30 Office [facility] 1.2.840.114 [id number] Univers 08:00:00 10:23:21 Visit Bar GANN 350.1.13.10 i ty of [facility] 4.2.7.2.686 [place] [id number] Sc dical NAL 044 [facility] 2022-03-22 2022-03-22 Outpatient R LINDA ROMAN [facility] 10 [id number] Univers 13:30:00 14:29:06 LINDA ROMAN i ty of [facility] 2022-03-22 2022-03-22 Office [facility] 1.2.840.114 [id number] Univers 13:30:00 14:29:06 Visit Linda GANN 350.1.13.10 i ty of [facility] 4.2.7.2.[place] [id number] Sc dicsaundra NAL 085 [facility] 2022-03-22 2022-03-22 Office [facility] 1.2.840.114 [id number] Univers 13:20:00 13:40:00 Visit Carmen GANN 350.1.13.10 ity of [facility] 4.2.7.2.[place] [id number] Sc henokoh NAL 059 [facility] 2022-03-22 2022-03-22 Outpatient R MILTON [facility] [id number] Univers 13:20:00 13:20:00 CARMEN katrin o f [facility] 2022-03-22 2022-03-22 Outpatient [facility] [id number] Univers 13:20:00 13:20:00 VEENATURNERMICAH jenisey o f [facility] 2022-03-22 2022-03-22 Refill Jorge A Lyons [facility] 1.2.840.114 [id number] Univers 00:00:00 00:00:00 HEALTH 350.1.13.10 it y [facility] 4.2.7.2.686 Juma as PRANAV?BLEA [id number] Sc vadim RICHARDSONEY 220 [facility] 2022-03-22 2022-03-22 Refyi Iverson [facility] 1.2.840.114 [id number] Univers 00:00:00 00:00:00 Min DALYJIM 350.1.13.10 i ty of [place] 4.2.7.2.686 [place] [facility] [id number] [address] 2022-03-20 2022-03-20 Patient Kishor [facility] 1.2.840.114 [id number] Univers 00:00:00 00:00:00 Secure Msg Min HEALTH 350.1.13.10 ity of [place] 4.2.7.2.686 Juma as PRANAV?BLEA [id number] [address] OFFICE [facility] 2022-03-16 2022-03-16 Emergency X EVA, K [facility] ERT [id number] Univers 14:47:00 21:40:00 ity [facility] 2022-03-16 2022-03-16 Emergency Eva, K [facility] 1.2.840.114 [id number] Univers 14:47:00 21:40:00 Denice GANN 350.1.13.10 i ty of [place] 4.2.7.2.686 [place] [id number] [address] 2022-03-16 2022-03-16 Outpatient R KISHOR [facility] [id number] Univers 11:30:00 11:30:00 IMN itsusan [facility] 2022-03-16 2022-03-16 Telephone [facility] 1.2.128.772 [id number] Univers 00:00:00 00:00:00 Min MONTEMAYOR 350.1.13.10 it y of [place] 4.2.7.2.686 Juma as PRANAV?BLEA [id number] [address] OFFICE [facility] 2022-03-07 2022-03-07 Emergency X NOAH, [facility] ERT [id number] Univers 09:48:00 14:47:00 JOSE ity [facility] 2022-03-07 2022-03-07 Emergency [facility] 1.2.840.114 [id number] Univers 09:48:00 14:47:00 Jose SANJUANITA 350.1.13.10 i ty of [place] 4.2.7.2.686 [place] [id number] [facility] [address] 2022-03-07 2022-03-07 Emergency X CARRION, [facility] ERT [id number] Univers 09:48:00 09:48:00 JOSE wilkes [facility] 2022-03-07 2022-03-07 Outpatient R KISHOR [facility] [id number] Univers 08:30:00 09:29:15 MIN wilkes [facility] 2022-03-07 2022-03-07 Office [facility] 1.2.840.114 [id number] Univers 08:30:00 09:29:15 Visit Min [facility] 350.1.13.10 it y of [place] 4.2.7.2.686 Juma as PRANAV?BLEA [id number] [facility] [address] MEDICAL OFFICE [facility] 2022-03-07 2022-03-07 Outpatient R KISHOR [facility] [id number] Univers 08:30:00 09:29:15 MIN wilkes [facility] 2022-03-05 2022-03-05 Refill Jorge A Lyons [facility] 1.2.840.114 [id number] Univers 00:00:00 00:00:00 HEALTH 350.1.13.10 it y of [place] 4.2.7.2.686 Juma as PRANAV?BLEA [id number] [facility] [address] MEDICAL OFFICE [facility] 2022-02-22 2022-02-22 Orders Doctor BAEZA 1.2.840.114 [id number] Univers 00:00:00 00:00:00 Only Unassigned, ANUJ 350.1.13.10 ity of [place] [facility] 4.2.7.2.686 Juma as [id number] [facility] [address] 2022-02-21 2022-02-21 Outpatient R JORGE A LYONS [facility] [id number] Univers 10:00:00 10:56:46 JORGE A LYONS [facility] 2022-02-21 2022-02-21 Office Jorge A Lyons [facility] 1.2.840.114 [id number] Univers 10:00:00 10:56:46 Visit HEALTH 350.1.13.10 it y of [place] 4.2.7.2.686 Juma as PRANAV?BLEA 522.5708653 Sc vadim TAVAREZ [address] MEDICAL OFFICE BUILDING 2022-02-21 2022-02-21 Outpatient R JORGE A LYONS [facility] [id number] Univers 10:00:00 10:00:00 JORGE A LYONS susan [facility] 2022-02-16 2022-02-16 [facility] [id number] Univers 10:00:00 10:00:00 MONIQUE wilkes o f [facility] 2022-02-12 2022-02-12 [facility] [id number] Univers 10:00:00 10:53:31 MIN wilkes [facility] 2022-02-12 2022-02-12 Office [facility] 1.2.840.114 [id number] Univers 10:00:00 10:53:31 [facility] 350.1.13.10 it y of [place] 4.2.7.2.686 Juma as PRANAV?BLEA [id number] Sc vadim [facility] 0[address] [facility] OFFICE [facility] 2022-02-12 2022-02-12 [facility] [id number] [employer] 10:00:00 10:53:31 MIN wilkes [facility] 2022-02-12 2022-02-12 [facility] [id number] [employer] 10:00:00 10:00:00 MIN wilkes [facility] 2022-01-22 2022-01-22 Orders Doctor FELISHA [id number] [employer] 00:00:00 00:00:00 Only Unassigned, ANUJ [id number] ity of [place] [facility] [id number] Juma as [phone] [address] Results Test Description Test Time Test Comments Results Result Comments Source Tissue Exam 2023-01-30 14:26:16 Test Item Value Reference Range Interpretation Comme nts Case Report (test code = 104) Surgical Pathology Report Case: [id number] Authorizing Provider: Elicia Henderson MD Collected: 01/28/2023 12:18 PM Ordering Location: [facility] Endoscopy Received: 01/28/2023 02:41 PM Services Pathologist: Florinda Vilchis MD Specimen: Celiac Node, celiac lymph node FNB DIAGNOSIS (test code = 3220) [id number] p eeZJnXClkmeGqPFvnzIfrKINbOMQuEW6czKewwB b0ePjbLBHfdmK7bBDyCJoid7bwJYB9s4utakvaF LCzTBvkUo6syXRilXrkNmUpDLWaQTk1rR04ZKNc wY1pyBSjTPq6FQJsnJJgjnUmMeCjVKTwvMYteKQ 5MUEdJO0gayomTAxjQXmwDRUyqvU7CLOzeHFlL9 TeXEDkCQ1ezbvkPHN7WTxgMOKjCKK0JjXlDTTte 9Yyhth9ChHhqBGtAVmjlRJdsbhkhcLvBVZDYAzO EfLKCC5EQLTCO5GQVOAMAQ8ZKN0CPOSMLULZYK4 IJ7hfoUUuXE9bTULfKH1dcP0sfhQeqMQdlQ5uOO W3jPUgSYUyHP70TTx2sZXuz4txZSStf3C2OEzvH QQtENQRSNnlUgVbG82nhqNkUK5yPXkth1HduBUp Uv71XK6bCDRoFIXbgOejrZe8xIZix8GfGNmhPXJ vUR3nO6Y0tRJsREIisgPiANGztS8aqGWgnTSrjB lntwUxSDfkv8MjTGvaABHhPP0ffAnqIRXeAB9kD BNzX2yjlQ4azjl0IkFpYVWrSfN5EUIsacR1Cpg5 JXBiTZdji6dpy7CtWEKmRXs7fEmbAsItQZCkg6p qslBpNcLnEUUwEMOwTTSeiHNaF441v3phc9fesp AzwFE1JZPgVUT8CAixfoHcktO5IOeucPHyPvD0A CxqqbLfBXhinvNgedLjVsv5PWWqA807IJX4yLsl i9irLSO1PXUhUFXwWdMpQg5hbFSwJ816QQGeYPE LVGRuyZv7HCQkkmArlqNunPQTx512O232j7faWW EgwxEtwCnGscvdq1tlQ799GFAbpYPqweMgDvLyU FLhsOAqmBD7RBWoOR3uuwkoZAwrERjaBYClxzA6 YXYewQQsP5WuNEQlZK2ycldeHVA1IXymPIBjXMG 4PnMpCRFxv4Yhdbu2OvObyp3vjk82KZG8f9UpeD trOVV7PVX7SpWaAi0jcFWjDTOwIA2gPiYyzVUtE YFyzp25gXxsZJfuXDR1NJAnbiTzh5Xlr6qiFlRc tfOgN8plM7PfXNNfPOVgIVLzOpUgwrGjn7Ofr5F otRMxyId1r8cfSAWuVUXbyMrpm3wyRUK2BFHqtX NjT4tbtF8tIDEcDN7wnjwiw8apNMvpQCaiFIZzd MA0ulR0KKGppYLvI7DicM4wMXDaTYjePIPqhut7 CaEpMw5cyTRujPvtGAzeGjtoCGllGGRiazNqyaU ccGduZGVjXHBsYWluXHBsYWluXGYwXGZzMjRccW xcbGFuZzEwMzNcaGljaFxmMVxkYmNoXGYxXGxvY 7bwEnVcHbWkMww8YUHjgGPyENQvJeb9SYFgzOVz GKDBpOpraY9pHLCcgHipdN0nkLJ8IPEzabQzqLJ YuE0zDMMIhF1kFqL1QZCwHof2QRL7PiYsxPGyhE 0= COMMENT (test code = 3359) b5pveLTwZTSjkXHyVFJrTSjigrZbBSZixIMbF8A ignisVAvcXK0oFB6zuSjnqFYmuRJxPFLpEaPzb5 ztn349vXJex6xqGFWItoedpUq1nAloA09qa5H3S uxzG69ykMWgJWN8MQVcPDSwbQJeTAZiVLB4JHQq zUIxP2vqQEYsHQ8tdaeoDTlgQBlsALLajWV4YWB thXYiF2VlOMNiXWfrECNjqre6OgGkIt3ihTWkqU fpJLqyIAFfUWLuTSnaIRRmFaIiHI8dj0Ocg6I0E GPekZ9uuRDqEGMgNFwuWBxoTUR2 CPT Code(s) (test code = 9688) q4tojXGoBFTxxDAkZSXgBEenxcZjPYNoaSKe Z3B wsamnHPetSK2mVE7nsIzcuQGijZHpAPGtJqSka7 xzt109wMDbb4mpJKSQtlsanMl5aLgjA76eo2A2S tbyQ06uzJZlPGI5IEJaJCFmgXIuGSFlBTC9IMNi oXFgV0ozQRXuRU5zdyieJLicBZmoXNCuaQR7AKZ cgTEyC6TsEYLjZLqpOKGbymu0AeIoZh1iqWZxuG ksIAgmUTAnKGTqKLlwOLNfRgRsPWfpWCJ6QTxoJ HLzNXolZZZxcDXtYGy2FzWvxPQnoWYuaW== CLINICAL HISTORY (test code = 3356) r7abwRCjSHNgsBZmFUTwDAhbnyCzCWJ kxJMiA1M gprylTWkyYF7sND7nlTnrqIInnROoDCBiLuQqc3 jej402sRMem5vyJNTKchcilXt1pKdfD59io8U5F pcfD96foHKaZAR2KPVwJSRdgNMyWKWjNNH2VBQf uYBoA8ozFTVpEV3glzcmBBnyYQzsKJMxnND4JPT vnJRpY9IvKZVuSEsaDGLxtgs1QeRhYy5nfRRzzB wwOTltPGXzVEVyUWyrOFMjAoApC4RnrCJiLlT8X FBlK6PiPLLxir1= GROSS DESCRIPTION (test code = s5uanDKcCIKgpGOMNAYjTTNuRZ8qdShmsPe9 cGd [id number]) pKMMprcS3aSSrSPugh2xqVRL6r7hhwlVMCochUF YzZV8zFKrdUDNtCL1oWyDgJVJwRwMuKKQjeSCyf kKgDxPdGQMcsDWzvLD3GSGdFO1lvkxzBEghDGjc TMAhlzZ3ETOjnDEmU7MmULTnGL8ndavaGCX7ZSP JEnakYh9klJCppJueQlRxKqSnMVVqUUHlJLCwqI qbJRGyQXn0dU4FDeuuR92sx3B2Pkw5YKRhOWSuQ 9KeWA3aZVLukCYoT70EPcbzBVE1YVLHWpmePjgl aPxsq0JcwYMjVSVfUKhkcWFiVEMiTWEbFStjKbI NZcQeGlO5WRh2QTo2NbQ3ACe3FYGNJAWlLQF6EH VnSXD5DAf8KUEkII1lLBlpeYCqAOkwWmwdSMjbA 767QUctTEDqI1DsV2VgQQclFnAsJIjjUYWbYZJx BXihBLWkI4SFRXZxCTw4RRX9LREeOTa0LCbxC6U XSTNmJTVpSyK3TSW1OhK4CGi9VRMVLc5pQzI2CJ B8Oqm2OMH0JOR9NFbiaTVdOVbop0VmMsGnCFFfR AlrviA3KPArvnSbETgwsPspcF2mCwReSyDCWkBW AYhhBTYqXw3vQHbsXSBySFljxEWhDJWYSbldrRZ xrdeybaMmXQq8vzBkMAYphCIKFTV4JO4sKIJVCn zkjZQkDKZfmWrqWDtlgI4dSX1EGIBtWFvjdfClE PMjE3UsdqDhVEytPZUdxo3hePhbHNfyIeNwXWZh e1c4yQY4wFHalOC5jBKpxNrwRmHoEJ1vhANbPH8 kDNjvHAzcycEhq8MgSV55mLSbroEakiVjENM5Gd OfXYekWZZiWQgdSHMzpf7fYQBjuMJuGJUqFTwaU QN1DPKdHCXbaUAfS5bcPNaegVJul8MoyJHklEgx jLXljJSuRUZmYeHoaDduu5CdBXMihgEkHDYnsKp 7VRFxw9z0wZMigT7rAVIjkCDfmGB2PGKveV7pzA 44rtPtvwXWCK2UVh8tdMImJP2OSLLcrwCPXtSnK LwmWWDrQ0RewM0kVD8SNierFKQgLFIPV8WbR65p lNRuJX4EFVQbktHUAepgDKEfKFJbbILEw2QmIAO VEbsnCrJaBpOzIbXKYqyzoVuwBdFnfMGjIyS8RT JgxJObQLM4AH0grFqxDOZfY6QwW1BhxrQ8GRJwj wEFHongVTYpKF6ZsE== MICROSCOPIC DESCRIPTION (test code = x6xczARtEVUcoKYkKCVgWKrggpHxJM NwbHRwZ3B 3371) asipiELjbAR4cMR1lmYklzTRbyPDwKMIvXhJzi9 phs167fFBid0qxZOKRezgniYa1nLzrG55nv6H5L pvbW17klGUsGDW9HATsGJIvlJWlNMGoDZG6IDFw zREkY5knXMYhQZ1kqoxyQBnsALfrSZNlrPN6WMP szRCrZ6UyKENgWNlpGKBasdy9FiAnHh2luAShmV epTRnuIULiYAKfRKysNGQwYfMpTzwzW4ylBUEpO K9hPJYyULjjI7N8DOIxwT18mo0gcST9p2JrCB8w T1FwHNR8PFhgTOgoF5unkVjlaJDlm5WubRTmblM qIYn4aEFvn8V9tHAjZBCoZMXkrT9pzC3eEZA6qQ VkrMZhVHDDXVXeFQWzQBqbVJ2rV5F1sAAhTMThq aS0lQ3tubEoKZnanq3oRDY8ylHfeJ7ucCiohM8u PN7dqhFdy3YbqKeoaHrvA5s1UGNlrXS4jS4oieT yROrwj2rlIHY0 SPECIAL STUDIES (test code = 3376) p7odpGGbQHObm3nyGDAeaIKrDrBiWwWk ZnRuYmp erEOyWLpeyuZaHIzht0TdU5GcYzWeBJawaiKzZH PtUuafdwbgYAQxNFL6meFsBDOrTTqiIUSbYWyyD e4fgCNqfTaqHyDpHEYej6umzsYJetrvqGp1o6fo DQCbTpX4rPUxLEnfD4hxyyTeaTXjK3WxvBVljXg 0n6jqJpJsSnY1jZSgVGwhQ6ffazRjnNOyNWVqJL d2nO38BOJcvK8trDFuGHwujeOtMiW1JRjpZGIbZ vK3XCSnqGPkRZGeZ5ddDJSgMZedTYCiJQkwmPSo XSL1wMilu0J4fPBvfZXznQwoLiPsKkQgDmNVe4B wLYy0zByjW8HuKWLmVnL0bSEnERLcEBzgVMGwEP EajpL9bTgrfsGln60nnFHmEWEmVOWcHpZxkFicU KAeWHLBv7HvaNatMVN2kBj4iUghUssiMKR0Lcr8 DR8ngv15xzi1lDbbISOclwxwSdY8TOzeLZTymmr pSJf4BHqlTNYfbYX8AQTsvUMwA9JvHXVwMB8bvj i6IHJ5LCwlEJVvImE0OZOxgMPkNJMfaEvnYNydj 135EBY3JbZxVH0xM3Mdj7H6mH6mdOFmXGUbwSRo IoAzCNBmoo1yeUBsRIirn1JcFIB4igF5rYLlaZW uXJNrDS37Pcovm5DhWbbky6FlB11sjXS9KJzrh4 quPK5uQqF0uwKrAPfdv4wzxY1wFfO4OCfuDN1wR P4dKLLonF6ywgpsFKJaJgKtjqgaKRCxnVvezmZp Kj8lwAnwCRE7EUxkC9sssZ2aJfD7TVagH1bhzM0 gAZb9MOffvFH2JNAclE0iNH0jsapff6nnWKofLN ufZWPqjnC3vaH9NBZzcDVlT2TvbX5qUDUaIU3aj udar2vwOCC2RNqkEUCfZYJ6TeYxKIGzs6Fsccj5 KhKap6HxcIUkAXbzJ20xx086FLIfnuSwH4gaxRS sekptqKYegwjjHZwhkdF1ZBIyWEEeNKsoVVBmNN ZzMjJcbGFuZzEwMzNcaGljaFxmMVxkYmNoXGYxX SnnP8wgGlDrS0EoHHHgTdPsFKrvKCabhHPydLTl yUN3sH0sDQ3xVUVibYTvW7DwASXohrXxwHGaHJV 3lHOqgODaFL2hFFuzxCGqg4woi6QcD1ueqZhdjE E0MP2fFEOjQGEjHWusm0TppG7iLncqfSNyvubiE HozpbOpZAgdojcwKYUpCXeyD2lxJaDkLTWfxMsm ZTsnf3XpEWAkTQAiKqqeakOwBMg3kuLsUDAstze vTIYceBwunY9eHdLtToNeDsxxBJ7dQVRtA3yphM XaQJUcLUAqF6xuQbDpbO0kpPuqNQqpNlCrLhCnD rQTl276fs6gAESwaDTgcwWWdFRwfI0rUZhgBCor GZsegMIbRFuru9fnQMKld9o5pVMhABLlgaMfa3y bLFeygfLvTYBrzDEddJFaIGQrm23hRUwleBrrpL onORPyo6KyfPftw1GeMgUrWUcsg3IvD14euGAfn YWvsKxaWUDdpsZbGYZbp41te2vlGQAcCwM4pMJc fTX0wSFnfPPry0IgvWmbIILuc3dwHCGiuj0qeld ykPIlk5TqpB5xlcudYGbogUOdatAkOMPki5d6rC MzWVOpYZFgZWbzeSh3NICih200nz1ohbS8qFDzD XF0JNqlBLDwSJYhaqGcYEXvbXJelCYqZPRcEZqi XGYxXGZzMjJcbGFuZzEwMzNcaGljaFxmMVxkYmN rJSPkMTstG7zvNvKwY5RzTFFpExXsdXBsK8wxxB FyXHBsYWluXGYxXGZzMjJcbGFuZzEwMzNcaGlja LreIKqiRiJuDGVcSJgvS0qpIuIqK8TvTQUrYmAo SIccyPYmgqvuKEwveeMfKLrhzpzlGMJiIAxdT2a tEgNmOYVmgFczBLcxj3FcKLZqLOMdEjamxhWqDM n0xoGsKNLeflmfcJAyxymaNPrecnEaXCfbmdfcO ZOuVLjhO5ebStCeUWUomQenFYvfq1GbTQHoKSWk PngrdcZiZKlniDRui3usv1GmX2focGgxkFI5APR uF3vzpMUebHS3WVI0tF0uFBcymwVnCDJqr7DkCN VhRXHkVkU8pG4rKSG3BsYOaTpoFQSvBHoxAFJjS GZzMjJcbGFuZzEwMzNcaGljaFxmMVxkYmNoXGYx SThyH8brJaPaW6PvXBTfIoKckLdsWKcrOAv8Myd kzWUrgsdqTKckyeQuQDkojkrfAJCkYBdvN6huUt NxEXEowWurSKodo6DiYFXsRRItZkqlglQfVYLeP PBdaOJoqZLKCB43PXGjMTZvhNmvtC7waWKDDBBs bsV0o5C4JNsnYBUnHKc7XYugniYaLPRgbF1aOAH vWM9nLUo1rmNsEMMtx6DcQD3uYNGslGCfHKD5LN Nsn5FnR1Gsf0QjVQVnGJSbqo4dntNmTwUJhASbY OYari69BIOkQL6nF0giMYYwDFRfjoIpbINxm2Om YQYwgGE5rNKxCH0HMjAQv93pRHRpKQVHayGwZVG yuNokvGA8bjT8rJ8zXoRUyFVyFyWEYZjiysOjGZ Cmzp2iykSrODMiPBMjc3KgqSAwbUPdchIjT8Lsg 4HwHFFumg26JOoesCFoat14VZ3sS6Qpo0YfeR9t BUiaLOEco7CiiOMzoRBuZNHio7RfQ2dxucuuSAd nhWNdrZ9wFOLgQDc9YLYyc6JmTQQef2GePqDxya BhRNYkSQMkQLGvaX94KKA3hGatiRkzflXjOL3gN KIfkqDcYTRqEZJuoD2uTVmoasEzICNkyiL7t2A3 SHgxISAaldWeEualAYE1oeWtwtW7kESdN6xczap qXUtqFTAxa2PczG3ymBRXuHExe1TqhZGvmTCBtX RwIL2lgaYcXQ9dIEN9MCqoUNFYYDNhBMovEZBuI AO4TSacYrthKAU5adUzPOUts5WyWOjqM1quS80t aFlcwWu5bNVakMrtoHDtrELwLPWmbjU3s5J1PRJ rp3IymtwyGIJbXJkjQQMgIBBkPxOzuNQdSuXmIe SwrWnewVhhRjsvXvXwFHXsKFepB7syArSuObEsH bwwEVP3tM== Gross assessment was performed at (test [facility] enter, code = 2777) Department of Pathology, [address] [place] [address], Technical component was performed at [facility] er, (test code = 2778) Department of Pathology, [address] [place] [address], Professional component was performed at [facility] enter, (test code = 2779) Department of Pathology, [address] [place] [address], [facility] [id number] 14:26:16Surgical Pathology Report Case: [id number] Authorizing Provider: Elicia Henderson MD Collected: 01/28/2023 12:18 PM Ordering Location: [facility] Endoscopy Received: 01/28/2023 02:41 PM Services Pathologist: Florinda Vilchis MD Specimen: Celiac Node, celiac lymph node FNB CELIAC LYMPH NODE, FINE-NEEDLE BIOPSY- Predominantly blood with scant lymphoid tissue- Few fragments of gastric foveolar epithelium noted- Negative for carcinoma Signing Pathologist Direct Phone Line: [phone] signed by Florinda Vilchis MD on 01/30/2023 at 2:26 PMEndoscopy report [id number] varicesA. Celiac NodeReceived in formalin labeled with the patient's name, medical record number and "celiac node" is a 1 x 1 x 0.1 cm aggregate of multiple austin soft tissue cores admixed with blood submitted in toto in A1-A2.JAN Cabrera PA ([facility])cmBlock A1 and A2 : CD45 immunohistochemical stain highlights scattered lymphocytes and lymphoid tissue. AE1/AE3 is negative for tumor cells. Synaptophysin does not highlight any tumor cellsThe interpretation of this case included the use of immunohistochemistry or special stains.Control Slides Examined: In-house known positive controls were evaluated along with the test tissue. These control slides run alongside of the patients sample show appropriate staining. Internal positive and negative controls when available are evaluated Immunohistochemistry technical testing was performed at [facility], Pathology Laboratory where it wasdeveloped and its performance characteristics were determined. It has not been cleared or approved by the U.S. Food and Drug Administration. The FDA has determined that such clearance or approval is not necessary. The test is used for clinical purposes. It should not be regarded as investigational or for research. This laboratory is certified under the Clinical Laboratory Improvement Amendments of 1988 (CLIA-88) as qualified to perform high complexity clinical laboratory testing.[facility], Department of Pathology, [address] [place] [address], [facility], Department of Pathology, [address] [place] [address], [facility], [facility], [address] [place] [address], FSL-Glucose [id number] 10:07:30 Test Item Value Reference Range Interpretation Comments POC-Glucose Meter (test 89 mg/dL 70-110 : TE STED AT [facility] code = 1538) [address] [place] [address], 770 30: Respiratory Supervisor/Techni edwige ID = [id number] for Aram Francoise Lab Interpretation (test Normal code = 98028-9) [facility]-Glucose [id number] 10:07:30 Test Item Value Reference Range Interpretation Comments POC-Glucose Meter (test 89 mg/dL 70-110 : TE STED AT [facility] code = 1538) [address] [place] [address], 770 30: Respiratory Supervisor/Techni edwige ID = [id number] for Aram, Francoise Lab Interpretation (test Normal code = 50148-7) [facility]-Glucose [id number] 10:07:30 Test Item Value Reference Range Interpretation Comments POC-Glucose Meter (test 89 mg/dL 70-110 : TE STED AT [facility] code = 1538) [address] [place] [address], 770 30: Respiratory Supervisor/Techni edwige ID = [id number] for Aram, Francoise Lab Interpretation (test Normal code = 78533-5) [facility]-Glucose [id number] 10:07:30 Test Item Value Reference Range Interpretation Comments POC-Glucose Meter (test 89 mg/dL 70-110 : TE STED AT [facility] code = 1538) [address] [place] [address], 770 30: Respiratory Supervisor/Techni edwige ID = [id number] for Aram, Francoise Lab Interpretation (test Normal code = 28726-1) [facility]-GLUCOSE [id number] 10:07:30 Test Item Value Reference Range Interpretation Comments POC-GLUCOSE METER 89 mg/dL 70-110 : TESTED A T [facility] 6720 (BEAKER) (test code = ROGE Alva [facility], 1538) [address]: Respiratory Supervisor/Techni edwige ID = [id number] for Adriana Cobbty TROPONIN [id number] 05:13:29 Test Item Value Reference Range Interpretation Comments TROPONIN I (test code = 0.003 ng/mL <=0.034 [id number]) LYNDSAY (test code = LYNDSAY) Reference (Normal) Range (defined by the 99th percentile reference limit): <= 0.034 ng/mL Note: Cardiac troponin begins to rise 3-4 hours after the onset of ischemia. Repeat in 4-6 hours if the sample was drawn within 3-4 hours of the onset of the symptom and found normal. Diagnosis of myocardial injury is made with acute changes in cTn concentrations with at least one serial sample above the 99th percentile upper reference limit (URL), taken together with the patient's clinical presentation. Biotin has been reported to cause a negative bias, interpret results relative to patient's use of biotin. Lab Interpretation Normal (test code = 34534-6) [facility] [id number] 05:10:09 Test Item Value Reference Range Interpretation Comments NT-proBNP (test code = 46 pg/mL <=125 [id number]) LYNDSAY (test code = LYNDSAY) Biotin has been reported to cause a negative bias, interpret results relative to patient's use of biotin. Lab Interpretation (test Normal code = 73992-5) [facility]inteProthrombin Time / [id number] 04:52:26 Test Item Value Reference Range Interpretation Comments PROTIME PATIENT (test 14.6 See_Comment [Auto mated message] code = 5964-2) The system [employer] generated this result transmitted ref erence range: 12.0 - 1 4.7 Seconds. The re ference range was not u sed to interpret this result as normal/abnor mal. INR (test code = 6301-6) 1.2 Nor mal INR <1.1; Warfarin Therap eutic range 2.0 to 3. 0 or 2.5 to 3.5, dep ending upon the indica tions. Lab Interpretation (test Normal code = 23037-5) [facility]inteTROPONIN [id number] 04:48:08 Test Item Value Reference Range Interpretation Comments TROPONIN I (test code = 0.003 ng/mL <=0.034 [id number]) LYNDSAY (test code = LYNDSAY) Reference (Normal) Range (defined by the 99th percentile reference limit): <= 0.034 ng/mL Note: Cardiac troponin begins to rise 3-4 hours after the onset of ischemia. Repeat in 4-6 hours if the sample was drawn within 3-4 hours of the onset of the symptom and found normal. Diagnosis of myocardial injury is made with acute changes in cTn concentrations with at least one serial sample above the 99th percentile upper reference limit (URL), taken together with the patient's clinical presentation. Biotin has been reported to cause a negative bias, interpret results relative to patient's use of biotin. Lab Interpretation Normal (test code = 41524-6) [facility] [id number] 04:44:45 Test Item Value Reference Range Interpretation Comments NT-proBNP (test code = 69 pg/mL <=125 [id number]) LYNDSAY (test code = LYNDSAY) Biotin has been reported to cause a negative bias, interpret results relative to patient's use of biotin. Lab Interpretation (test Normal code = 46824-6) [facility] LAB [id number] 10:04:37 Test Item Value Reference Range Interpretation Comments SCAN RESULT (test code = See scanned report [id number]) See scanned reportALPHA FETOPROTEIN (AFP), TUMOR [id number] 17:29:00 Test Item Value Reference Range Interpretation Comments ALPHA-FETOPROTEIN (BEAKER) (test code < ng/mL <10.0 = 1094) Respiratory Supervisor ID - BSBASIC METABOLIC [id number] 17:11:51 Test Item Value Reference Range Interpretation [...] not appl icable for dialysis patien ts Respiratory Supervisor ID - BSHEPATIC FUNCTION [id number] 17:11:51 Test Item Value Reference Range Interpretation [...] (test code = 27 U/L 6-55 347) Respiratory Supervisor ID - BSPROTHROMBIN TIME/[id number] 17:03:01 Test Item Value Reference Range Interpretation Comments PROTIME (BEAKER) 14.7 seconds 11.9-14.2 H (test code = 759) INR (BEAKER) (test 1.17 See_Comment [Automat ed message] code = 370) The system [employer] generated this result transmitted ref erence range: <=5.90. The reference range was not used to int erpret this result as normal/abnormal . RECOMMENDED COUMADIN/WARFARIN INR THERAPY RANGESSTANDARD DOSE: 2.0 - 3.0 Includes: PROPHYLAXIS for venous thrombosis, systemic embolization; TREATMENT for venous thrombosis and/or pulmonary embolus.HIGH RISK: Target INR is 2.5-3.5 for patients with mechanical heart valves.CBC W/PLT COUNT & AUTO [id number] 16:54:18 Test Item Value Reference Range Interpretation [...] PERCENT (BEAKER) (test code = 2801) POC-Glucose [id number] 17:52:15 Test Item Value Reference Range Interpretation Comments POC-Glucose Meter (test 186 mg/dL 70-110 H : TE STED AT [facility] code = 1538) [address] [place] [address], [address]70 [address]: Respiratory Supervisor/Techni edwige ID = [id number] for KRUEGER, BONIT A Lab Interpretation (test Abnormal code = 02707-0) [facility]-Glucose [id number] 17:52:15 Test Item Value Reference Range Interpretation Comments POC-Glucose Meter (test 186 mg/dL 70-110 H : TE STED AT [facility] code = 1538) [address] [place] [address], 770 30: Respiratory Supervisor/Techni edwige ID = [id number] for KRUEGER, BONIT A Lab Interpretation (test Abnormal code = 72974-8) [facility] [id number] 17:52:15 Test Item Value Reference Range Interpretation Comments POC-Glucose Meter (test 186 mg/dL 70-110 H : TE STED AT [facility] code = 1538) [address] [place] [address], 770 30: Respiratory Supervisor/Techni edwige ID = [id number] for KRUEGER, BONIT A Lab Interpretation (test Abnormal code = 62720-0) [facility] [id number] 17:52:15 Test Item Value Reference Range Interpretation Comments POC-Glucose Meter (test 186 mg/dL 70-110 H : TE STED AT [facility] code = 1538) [address] [place] [address], 770 30: Respiratory Supervisor/Techni edwige ID = [id number] for KRUEGER, BONIT A Lab Interpretation (test Abnormal code = 33412-7) [facility] [id number] 17:52:15 Test Item Value Reference Range Interpretation Comments POC-Glucose Meter (test 186 mg/dL 70-110 H : TE STED AT [facility] code = 1538) [address] [place] [address], 770 30: Respiratory Supervisor/Techni edwige ID = [id number] for KRUEGER, BONIT A Lab Interpretation (test Abnormal code = 76355-1) [facility] [id number] 17:52:15 Test Item Value Reference Range Interpretation Comments POC-GLUCOSE METER 186 mg/dL 70-110 H : TESTED A T [facility] 6720 (BEAKER) (test code = ROGE Alva [facility], 1538) [address]: Respiratory Supervisor/Techni edwige ID = [id number] for JON SEYMOUR ABHIJEET POCT-GLUCOSE [id number] 12:14:50 Test Item Value Reference Range Interpretation Comments POC-GLUCOSE METER 198 mg/dL 70-110 H : TESTED A T [facility] 6720 (BEAKER) (test code = [facility], 1538) 82162: Respiratory Supervisor/Techni edwige ID = [id number] for JON SEYMOUR ABHIJEET POCT-GLUCOSE [id number] 06:55:15 Test Item Value Reference Range Interpretation Comments POC-GLUCOSE METER 126 mg/dL 70-110 H : TESTED A T [facility] 6720 (BEAKER) (test code [facility], = 1538) 397[address]: Respiratory Supervisor/Techni edwige ID = [id number] for IMANI LOPEZ HEPATIC FUNCTION [id number] 06:13:00 Test Item Value Reference Range Interpretation [...] (test code = 15 U/L 6-55 347) Respiratory Supervisor ID - PIAYA LPOCT-GLUCOSE [id number] 06:12:04 Test Item Value Reference Range Interpretation Comments POC-GLUCOSE METER 203 mg/dL 70-110 H : TESTED A T [facility] 6720 (BEAKER) (test code = [facility] Artie [facility], 1538) 79644: Respiratory Supervisor/Techni edwige ID = [id number] for ABHIJEET LI POCT-GLUCOSE [id number] 16:00:31 Test Item Value Reference Range Interpretation Comments POC-GLUCOSE METER 181 mg/dL 70-110 H : TESTED A T [facility] 6720 ([facility]) (test code = [facility] Artie [facility], 1538) [address]23[address]: Respiratory Supervisor/Techni edwige ID = [id number] for BULL GALEANA POCT-GLUCOSE [id number] 07:04:23 Test Item Value Reference Range Interpretation Comments POC-GLUCOSE METER 183 mg/dL 70-110 H : TESTED A T [facility] 67[facility] ([facility]) (test code [facility], = 1538) [address]: Respiratory Supervisor/Techni edwige ID = [id number] for IMANI LOPEZ CT, [id number] 04:31:00Unlisted Reason for Exam - Click Yes and Enter Reason Below->NoProtocol Please Specify:->Standard ProtocolWill this procedure require oral contrast?->No [facility] : 1965 Sex: [...] Springer MDReport Verified Date/Time: 10/11/2022 04:31:29 POCT-GLUCOSE [id number] 21:36:45 Test Item Value Reference Range Interpretation Comments POC-GLUCOSE METER 229 mg/dL 70-110 H : TESTED A T [facility] (BEAKER) (test code [facility], = 1538) 80[address]: Respiratory Supervisor/Techni edwige ID = [id number] for IMANI LOPEZ BASIC METABOLIC [id number] 15:53:49 Test Item Value Reference Range Interpretation [...] not appl icable for dialysis patien ts Respiratory Supervisor ID - BSSpecimen slightly ictericCBC W/PLT COUNT [...] PERCENT (BEAKER) (test code = 2801) POCT-GLUCOSE [id number] 12:40:08 Test Item Value Reference Range Interpretation Comments POC-GLUCOSE METER 278 mg/dL 70-110 H : TESTED A T [facility] 6720 (BEAKER) (test code = [facility], 153) 21725: Respiratory Supervisor/Techni edwige ID = [id number] for ABHIJEET LI POCT-GLUCOSE [id number] 06:34:33 Test Item Value Reference Range Interpretation Comments POC-GLUCOSE METER 218 mg/dL 70-110 H : TESTED A T [facility] 6720 (BEAKER) (test code = [facility], 1538) 31576: Respiratory Supervisor/Techni edwige ID = [id number] for Janessa Chapman POCT-GLUCOSE [id number] 21:23:45 Test Item Value Reference Range Interpretation Comments POC-GLUCOSE METER 216 mg/dL 70-110 H : TESTED A T [facility] 6720 (BEAKER) (test code = [facility], 1538) 37098: Respiratory Supervisor/Techni edwige ID = [id number] for Janessa Chapman HEMOGLOBIN [id number] 13:03:02 Test Item Value Reference Range Interpretation Comments HEMOGLOBIN A1C 7.6 % See_Comment H [Automated m essage] ELECTROPHORESIS (BEAKER) The system which (test code = 3811) generated this result transmitted ref erence range: <=5.6%. The reference range was not used to int erpret this result as normal/abnormal . "The A1c is measured using a [facility]-certified method. HbA1c value equal to or greater than 6.5% as thediagnosis cutoff for diabetes. An HbA1c value of 5.7- 6.4% indicates increased risk for diabetes (prediabetes)."Respiratory Supervisor ID - ADMPOCT- GLUCOSE [id number] 12:24:23 Test Item Value Reference Range Interpretation Comments POC-GLUCOSE METER 179 mg/dL 70-110 H : TESTED A T [facility] 6720 ([facility]) (test code = [facility], 1538) 91312: Respiratory Supervisor/Techni edwige ID = [id number] for Joana Solis POCT-GLUCOSE [id number] 06:07:38 Test Item Value Reference Range Interpretation Comments POC-GLUCOSE METER 154 mg/dL 70-110 H : TESTED A T [facility] 6720 ([facility]) (test code = [facility] Pixelated [facility], 1538) [address]: Respiratory Supervisor/Techni edwige ID = [id number] for Janessa Chapman [id number] 05:21:54 Test Item Value Reference Range Interpretation Comments LIPASE ([facility]) (test code = 749) 21 U/L 8-78 Respiratory Supervisor ID - SEBAS LLIPID [id number] 05:21:53 Test Item Value Reference Range Interpretation Comments TRIGLYCERIDES ([facility]) (test code = 93 mg/dL 540) CHOLESTEROL ([facility]) (test code = 195 mg/dL 631) HDL CHOLESTEROL ([facility]) (test code 28 mg/dL = 976) LDL CHOLESTEROL CALCULATED ([facility]) 148 mg/dL (test code = 633) Triglyceride Reference Range: Low Risk <150 Borderline 150-199 High Risk 200- 499 Very High Risk >=500Cholesterol Reference Range: Low Risk <200 Borderline 200-239 High Risk >240HDL Cholesterol Reference Range: Low Risk >=60 High Risk <40LDL Cholesterol Reference Range: Optimal <100 Near Optimal 100-129 Borderline 130-159 High 160-189 Very High >=190 Respiratory Supervisor ID - SEBAS LHEPATIC FUNCTION [id number] 05:21:53 Test Item Value Reference Range Interpretation [...] (test code = 15 U/L 6-55 347) Respiratory Supervisor ID - SEBAS LBASIC METABOLIC [id number] 05:21:52 Test Item Value Reference Range Interpretation [...] not appl icable for dialysis patien ts Respiratory Supervisor ID - SEBAS [id number] 05:21:52 Test Item Value Reference Range Interpretation Comments MAGNESIUM (BEAKER) (test code = 1.7 mg/dL 1.6-2.6 627) Respiratory Supervisor ID - SEBAS [id number] 05:21:52 Test Item Value Reference Range Interpretation Comments PHOSPHORUS (BEAKER) (test code = 3.1 mg/dL 2.3-4.7 604) Respiratory Supervisor ID - SEBAS LPROTHROMBIN [id number] 04:36:13 Test Item Value Reference Range Interpretation Comments PROTIME (BEAKER) 16.0 seconds 11.9-14.2 H (test code = 759) INR (BEAKER) (test 1.37 See_Comment [Automat ed message] code = 370) The system Comunitae generated this result transmitted ref erence range: <=5.90. The reference range was not used to int erpret this result as normal/abnormal . RECOMMENDED COUMADIN/WARFARIN INR THERAPY RANGESSTANDARD DOSE: 2.0 - 3.0 Includes: PROPHYLAXIS for venous thrombosis, systemic embolization; TREATMENT for venous thrombosis and/or pulmonary embolus.HIGH RISK: Target INR is 2.5-3.5 for patients with mechanical heart valves.CBC W/PLT COUNT & AUTO [id number] 04:21:07 Test Item Value Reference Range Interpretation [...] PERCENT (BEAKER) (test code = 2801) HCV [id number] 06:52:12 Test Item Value Reference Range Interpretation Comments HCV Ab (test code = 23219-2) Negative HCV Semi-Quantitative (test code = 62122-1) [facility] [id number] 06:52:12 Test Item Value Reference Range Interpretation Comments HCV Ab (test code = 19007-6) Negative HCV Semi-Quantitative (test code = 54324-6) [facility] [id number] 00:33:05 Test Item Value Reference Range Interpretation Comments TSH (test code = See_Comment [Automated message] [id number]) The system Comunitae generated this result transmitted ref erence range: 0.45 - 4 .70 mIU/L. The refe rence range was not u sed to interpret this result as normal/abnor mal. Lab Interpretation (test Normal code = 66279-1) [facility] [id number] 00:33:05 Test Item Value Reference Range Interpretation Comments TSH (test code = See_Comment [Automated message] [id number]) The system Comunitae generated this result transmitted ref erence range: 0.45 - 4 .70 mIU/L. The refe rence range was not u sed to interpret this result as normal/abnor mal. Lab Interpretation (test Normal code = 58543-2) [facility]inte[facility]IP[facility] PAN[facility] (62985)(TOTAL CHOLESTEROL, TRIGLYCERIDES, HDL)2022-08-08 00:04:19 Test Item Value Reference Range Interpretation Comments CHOL (test code = 190 mg/dL 120-200 1808253613) HDL (test code = 42 mg/dL See_Comment [Automated message] [id number]) The system Comunitae generated this result transmit freddy reference range : >=40. The refer ence range was not u sed to interpret th is result as normal/abnormal . HDLC RATIO (test code = See_Comment [Au tomated message] 2575670129) The system Comunitae generated this result transmit freddy reference range : <=5.0. The refe rence range was not u sed to interpret th is result as normal/abnormal . TRIG (test code = 126 mg/dL 30-170 6636607406) LDL CHOL (test code = 123 mg/dL See_Comment [Auto mated message] 63149-0) The system Comunitae generated this result transmit freddy reference range : <=160. The refe rence range was not u sed to interpret th is result as normal/abnormal . VLDL (test code = 25 mg/dL 5-60 5846836113) Lab Interpretation (test Normal code = 15165-8) [facility] (03275)(TOTAL CHOLESTEROL, TRIGLYCERIDES, HDL)2022-08-08 00:04:19 Test Item Value Reference Range Interpretation Comments CHOL (test code = 190 mg/dL 120-200 2529447289) HDL (test code = 42 mg/dL See_Comment [Automated message] 2570233157) The system Comunitae generated this result transmit freddy reference range : >=40. The refer ence range was not u sed to interpret th is result as normal/abnormal . HDLC RATIO (test code = See_Comment [Au tomated message] 1204634642) The system Comunitae generated this result transmit freddy reference range : <=5.0. The refe rence range was not u sed to interpret th is result as normal/abnormal . TRIG (test code = 126 mg/dL 30-170 9626747170) LDL CHOL (test code = 123 mg/dL See_Comment [Auto mated message] 86138-4) The system Comunitae generated this result transmit freddy reference range : <=160. The refe rence range was not u sed to interpret th is result as normal/abnormal . VLDL (test code = 25 mg/dL 5-60 6950457463) Lab Interpretation (test Normal code = 99771-7) [facility]. METABOLIC PANEL (72554)2022-08-08 00:04:14 Test Item Value Reference Range Interpretation Comments NA (test code = 137 mmol/L 135-145 3071925191) K (test code = 4.5 mmol/L 3.5-5 7005682603) CL (test code = 100 mmol/L 98-108 6174551245) CO2 TOTAL (test code = 27 mmol/L 23-31 6995046499) AGAP (test code = 2-16 0293440257) BUN (test code = 6 mg/dL 7-23 L 4134402898) GLUCOSE (test code = 203 mg/dL 70-110 H 6923480608) CREATININE (test code = 0.71 mg/dL 0.6-1.25 3647545120) TOTAL BILI (test code = 0.5 mg/dL 0.1-1.9 1216071510) CALCIUM (test code = 9.8 mg/dL 8.6-10.6 2503291033) T PROTEIN (test code = 7.2 g/dL 6.3-8.2 0216550236) ALBUMIN (test code = 4.1 g/dL 3.5-5 6618798315) ALK PHOS (test code = 74 U/L 34-122 3015614467) ALTv (test code = 29 U/L 50 1742-6) AST(SGOT) (test code = 28 U/L 13-40 4378646333) eGFR (test code = mL/min/1.73m2 7839994930) LYNDSAY (test code = LYNDSAY) Association of [...] tests). Lab Interpretation Abnormal (test code = 80266-2) [facility]. METABOLIC PANEL (91640)2022-08-08 00:04:14 Test Item Value Reference Range Interpretation Comments NA (test code = 137 mmol/L 135-145 2035686938) K (test code = 4.5 mmol/L 3.5-5 2922609357) CL (test code = 100 mmol/L 98-108 8553905128) CO2 TOTAL (test code = 27 mmol/L 23-31 7270995915) AGAP (test code = 2-16 0058641197) BUN (test code = 6 mg/dL 7-23 L 0474738197) GLUCOSE (test code = 203 mg/dL 70-110 H 3771058760) CREATININE (test code = 0.71 mg/dL 0.6-1.25 2129486528) TOTAL BILI (test code = 0.5 mg/dL 0.1-1.6 9276774296) CALCIUM (test code = 9.8 mg/dL 8.6-10.6 1841557461) T PROTEIN (test code = 7.2 g/dL 6.3-8.2 9419720939) ALBUMIN (test code = 4.1 g/dL 3.5-5 7235931902) ALK PHOS (test code = 74 U/L 34-122 7764834084) ALTv (test code = 29 U/L 5-50 1742-6) AST(SGOT) (test code = 28 U/L 13-40 5620317083) eGFR (test code = mL/min/1.73m2 2968467963) LYNDSAY (test code = LYNDSAY) Association of [...] tests). Lab Interpretation Abnormal (test code = 54412-3) [facility] METABOLIC [id number] 17:57:44 Test Item Value Reference Range Interpretation [...] not appl icable for dialysis patien ts Respiratory Supervisor ID - XHPLOAYVWAKRAJ9654-54-51 17:57:44 Test Item Value Reference Range Interpretation Comments MAGNESIUM (BEAKER) (test code = 1.9 mg/dL 1.6-2.6 627) Respiratory Supervisor ID - ZCZTEGHPNFQUTTU6422-32-40 17:57:44 Test Item Value Reference Range Interpretation Comments PHOSPHORUS (BEAKER) (test code = 3.5 mg/dL 2.3-4.7 604) Respiratory Supervisor ID - ADMINHEPATIC FUNCTION [id number] 17:57:44 Test Item Value Reference Range Interpretation [...] code = 58 U/L 6-55 H 347) Respiratory Supervisor ID - ADMINPROTHROMBIN TIME/[id number] 17:21:32 Test Item Value Reference Range Interpretation Comments PROTIME (BEAKER) 14.6 seconds 11.9-14.2 H (test code = 759) INR (BEAKER) (test 1.21 See_Comment [Automat ed message] code = 370) The system Comunitae generated this result transmitted ref erence range: <=5.90. The reference range was not used to int erpret this result as normal/abnormal . RECOMMENDED COUMADIN/WARFARIN INR THERAPY RANGESSTANDARD DOSE: 2.0 - 3.0 Includes: PROPHYLAXIS for venous thrombosis, systemic embolization; TREATMENT for venous thrombosis and/or pulmonary embolus.HIGH RISK: Target INR is 2.5-3.5 for patients with mechanical heart valves.CBC W/PLT COUNT & AUTO [id number] 17:13:11 Test Item Value Reference Range Interpretation [...] (test code = 2801) Drug screen, urine, [id number] 09:56:19 Test Item Value Reference Range Interpretation Comments Scan Result (test code = See scanned report 7390540) LYNDSAY (test code = LYNDSAY) See scanned report [facility], [id number] 09:56:19 Test Item Value Reference Range Interpretation Comments Scan Result (test code = See scanned report 6366622) LYNDSAY (test code = LYNDSAY) See scanned report [facility], urine, [id number] 09:56:19 Test Item Value Reference Range Interpretation Comments Scan Result (test code = See scanned report 8405898) LYNDSAY (test code = LYNDSAY) See scanned report [facility], urine, [id number] 09:56:19 Test Item Value Reference Range Interpretation Comments Scan Result (test code = See scanned report 0251432) LYNDSAY (test code = LYNDSAY) See scanned report [facility], urine, [id number] 09:56:19 Test Item Value Reference Range Interpretation Comments Scan Result (test code = See scanned report 8880706) LYNDSAY (test code = LYNDSAY) See scanned report [facility], urine, [id number] 09:56:19 Test Item Value Reference Range Interpretation Comments Scan Result (test code = See scanned report 8795293) LYNDSAY (test code = LYNDSAY) See scanned report [facility], urine, [id number] 09:56:19 Test Item Value Reference Range Interpretation Comments Scan Result (test code = See scanned report 9191938) LYNDSAY (test code = LYNDSAY) See scanned report [facility], urine, [id number] 09:56:19 Test Item Value Reference Range Interpretation Comments Scan Result (test code = See scanned report 1002575) LYNDSAY (test code = LYNDSAY) See scanned report [facility], urine, [id number] 09:56:19 Test Item Value Reference Range Interpretation Comments Scan Result (test code = See scanned report 8867350) LYNDSAY (test code = LYNDSAY) See scanned report [facility], urine, [id number] 09:56:19 Test Item Value Reference Range Interpretation Comments Scan Result (test code = See scanned report 4409752) LYNDSAY (test code = LYNDSAY) See scanned report [facility], urine, [id number] 09:56:19 Test Item Value Reference Range Interpretation Comments Scan Result (test code = See scanned report 5138763) LYNDSAY (test code = LYNDSAY) See scanned report [facility], urine, [id number] 09:56:19 Test Item Value Reference Range Interpretation Comments Scan Result (test code = See scanned report 8104689) LYNDSAY (test code = LYNDSAY) See scanned report [facility]DR[facility] SCREEN, URINE, [id number] 09:56:19 Test Item Value Reference Range Interpretation Comments SCAN RESULT (test code = See scanned report 3561119) See scanned reportANTI-MITOCHONDRIAL AB, REFLEX TO [id number] 10:08:47 Test Item Value Reference Range Interpretation Comments SCAN RESULT (test code = 9368869) HEPATITIS B PCR, [id number] 16:22:43 Test Item Value Reference Range Interpretation Comments HBV RESULT COMPONENT HBV DNA not detected HBV DNA not detected (BEAKER) (test code = 2701) This test uses a Real-Time Polymerase Chain Reaction (RT-PCR) methodology and was performed using YOU AmpliPrep/YOU TaqMan HBV Test, v2.0 ([employer]Reportable range for this assay is 20 - 170,000,000 IU per mL (1.30 - 8.23 Log IU/mL).PHOSPHATIDYLETHANOL, [id number] 10:47:03 Test Item Value Reference Range Interpretation Comments PHOSPHATIDYLETHANOL (PETH) See scanned (test code = 7235768) report See scanned reportPOC-Glucose [id number] 08:56:45 Test Item Value Reference Range Interpretation Comments POC-Glucose Meter (test 221 mg/dL 70-110 H : TE STED AT [facility] code = 1538) [address] [facility], [address]: Respiratory Supervisor/Techni edwige ID = [id number] for David Saravia Lab Interpretation (test Abnormal code = 99615-4) [facility] [id number] 08:56:45 Test Item Value Reference Range Interpretation Comments POC-Glucose Meter (test 221 mg/dL 70-110 H : TE STED AT [facility] code = 1538) [address] [facility], 770 [address]: Respiratory Supervisor/Techni edwige ID = [id number] for David Saravia Lab Interpretation (test Abnormal code = 36240-9) [facility]ucose [id number] 08:56:45 Test Item Value Reference Range Interpretation Comments POC-Glucose Meter (test 221 mg/dL 70-110 H : TE STED AT [facility] code = 1538) [address] [place], [address]: Respiratory Supervisor/Techni edwige ID = [id number] for David Saravia ia Lab Interpretation (test Abnormal code = 24363-5) [facility] HospitalPO[facility]SE [id number] 08:56:45 Test Item Value Reference Range Interpretation Comments POC-GLUCOSE METER 221 mg/dL 70-110 H : TESTED A T [facility] 6720 (BEAKER) (test code = [place] [facility], 1538) [address]: Respiratory Supervisor/Techni edwige ID = [id number] for David Saravia COMPREHENSIVE METABOLIC [id number] 04:26:22 Test Item Value Reference Range Interpretation [...] not appl icable for dialysis patien ts Respiratory Supervisor ID - MELANIE WPROTHROMBIN TIME/[id number] 04:23:40 Test Item Value Reference Range Interpretation Comments PROTIME (BEAKER) 14.9 seconds 11.9-14.2 H (test code = 759) INR (BEAKER) (test 1.19 See_Comment [Automat ed message] code = 370) The system Comunitae generated this result transmitted ref erence range: <=5.90. The reference range was not used to int erpret this result as normal/abnormal . RECOMMENDED COUMADIN/WARFARIN INR THERAPY RANGESSTANDARD DOSE: 2.0 - 3.0 Includes: PROPHYLAXIS for venous thrombosis, systemic embolization; TREATMENT for venous thrombosis and/or pulmonary embolus.HIGH RISK: Target INR is 2.5-3.5 for patients with mechanical heart valves.CBC W/PLT COUNT & AUTO [id number] 04:00:34 Test Item Value Reference Range Interpretation [...] PERCENT (BEAKER) (test code = 2801) POCT-GLUCOSE [id number] 22:32:07 Test Item Value Reference Range Interpretation Comments POC-GLUCOSE METER 227 mg/dL 70-110 H : TESTED A T [facility] 6720 (BEAKER) (test code = [place], 1538) [address]: Respiratory Supervisor/Techni edwige ID = [id number] for Isamar Brunson POCT-GLUCOSE [id number] 15:48:32 Test Item Value Reference Range Interpretation Comments POC-GLUCOSE METER 193 mg/dL 70-110 H : TESTED A T [facility] 6720 (CHRISTIANO) (test code = [place], 1538) [address]: Respiratory Supervisor/Techni edwige ID = [id number] for Gautam Newsome MR, ABDOMEN, [id number] 13:14:00Please perform with liver protocol/eovist Unlisted Reason for Exam - Click Yes and Enter Reason Below->Yes Unlisted Reason for Exam->[facility]rhosis [facility] : 1965 Sex: MFINALREPORT TECHNIQUE: [...] Butler Verified Date/Time: 07/01/2022 13:14:01 Reading Location: [facility] B1 C013Y CT Body Reading Room POCT-GLUCOSE [id number] 11:27:22 Test Item Value Reference Range Interpretation Comments POC-GLUCOSE METER 159 mg/dL 70-110 H : TESTED A T [facility] 6720 (BEAKER) (test code = [facility], 1538) [address]: Respiratory Supervisor/Techni edwige ID = [id number] for Gautam Newsome POCT-GLUCOSE [id number] 07:51:19 Test Item Value Reference Range Interpretation Comments POC-GLUCOSE METER 145 mg/dL 70-110 H : TESTED A T [facility] 6720 (BEAKER) (test code = [facility] Pixelated [facility], 1538) [address]: Respiratory Supervisor/Techni edwige ID = [id number] for Gautam Newsome POCT-GLUCOSE [id number] 06:42:08 Test Item Value Reference Range Interpretation Comments POC-GLUCOSE METER 148 mg/dL 70-110 H : TESTED A T [facility] 6720 (BEAKER) (test code = [facility] Pixelated [facility], 1538) [address]: Respiratory Supervisor/Techni edwige ID = [id number] for VENU TRAVIS COMPREHENSIVE METABOLIC [id number] 05:11:23 Test Item Value Reference Range Interpretation [...] not appl icable for dialysis patien ts Respiratory Supervisor ID - PIAYA LCBC W/PLT COUNT & AUTO [id number] 04:56:15 Test Item Value Reference Range Interpretation [...] PERCENT (BEAKER) (test code = 2801) PROTHROMBIN TIME/[id number] 04:37:26 Test Item Value Reference Range Interpretation Comments PROTIME (BEAKER) 16.1 seconds 11.9-14.2 H (test code = 759) INR (BEAKER) (test 1.38 See_Comment [Automat ed message] code = 370) The system Comunitae generated this result transmitted ref erence range: <=5.90. The reference range was not used to int erpret this result as normal/abnormal . RECOMMENDED COUMADIN/WARFARIN INR THERAPY RANGESSTANDARD DOSE: 2.0 - 3.0 Includes: PROPHYLAXIS for venous thrombosis, systemic embolization; TREATMENT for venous thrombosis and/or pulmonary embolus.HIGH RISK: Target INR is 2.5-3.5 for patients with mechanical heart valves.POCT-GLUCOSE [id number] 23:53:01 Test Item Value Reference Range Interpretation Comments POC-GLUCOSE METER 187 mg/dL 70-110 H : TESTED A T [facility] 6720 (BEAKER) (test code = [facility], 1538) [address]: Respiratory Supervisor/Techni edwige ID = [id number] for D' Naila Bundy POCT-GLUCOSE [id number] 17:11:19 Test Item Value Reference Range Interpretation Comments POC-GLUCOSE METER 160 mg/dL 70-110 H : TESTED A T [facility] 6720 (BEAKER) (test code [facility], = 1538) [address]: Respiratory Supervisor/Techni edwige ID = [id number] for LUIS ALFREDOS BARAK RESTREPO POCT-GLUCOSE [id number] 13:20:03 Test Item Value Reference Range Interpretation Comments POC-GLUCOSE METER 249 mg/dL 70-110 H : TESTED A T [facility] 6720 (BEAKER) (test code [facility], = 1538) [address]: Respiratory Supervisor/Techni edwige ID = [id number] for WILS ON, SHASTANIE THROMBOELASTOGRAPH (TEG)2022-06-30 09:19:46 [...] % 0.0-5.0 code = 1414) COMPREHENSIVE METABOLIC [id number] 08:27:43 Test Item Value Reference Range Interpretation [...] (test code = 347) EGFR (BEAKER) 107 Interpretati on of eGFR (test code = [...] not appl icable for dialysis patien ts Respiratory Supervisor ID - CHRISTIANA [id number] 06:38:39 Test Item Value Reference Range Interpretation Comments FIBRINOGEN LEVEL (BEAKER) (test 312 mg/dl 225-434 code = 658) PROTHROMBIN TIME/[id number] 06:38:32 Test Item Value Reference Range Interpretation Comments PROTIME (BEAKER) 16.9 seconds 11.9-14.2 H (test code = 759) INR (BEAKER) (test 1.46 See_Comment [Automat ed message] code = 370) The system Comunitae generated this result transmitted ref erence range: <=5.90. The reference range was not used to int erpret this result as normal/abnormal . RECOMMENDED COUMADIN/WARFARIN INR THERAPY RANGESSTANDARD DOSE: 2.0 - 3.0 Includes: PROPHYLAXIS for venous thrombosis, systemic embolization; TREATMENT for venous thrombosis and/or pulmonary embolus.HIGH RISK: Target INR is 2.5-3.5 for patients with mechanical heart valves.PROTHROMBIN TIME/[id number] 06:38:14 Test Item Value Reference Range Interpretation Comments PROTIME (BEAKER) 16.9 seconds 11.9-14.2 H (test code = 759) INR (BEAKER) (test 1.47 See_Comment [Automat ed message] code = 370) The system Comunitae generated this result transmitted ref erence range: <=5.90. The reference range was not used to int erpret this result as normal/abnormal . RECOMMENDED COUMADIN/WARFARIN INR THERAPY RANGESSTANDARD DOSE: 2.0 - 3.0 Includes: PROPHYLAXIS for venous thrombosis, systemic embolization; TREATMENT for venous thrombosis and/or pulmonary embolus.HIGH RISK: Target INR is 2.5-3.5 for patients with mechanical heart valves.CBC W/PLT COUNT & AUTO [id number] 06:32:12 Test Item Value Reference Range Interpretation [...] PERCENT (BEAKER) (test code = 2801) POCT-GLUCOSE [id number] 06:10:10 Test Item Value Reference Range Interpretation Comments POC-GLUCOSE METER 153 mg/dL 70-110 H : TESTED A T [facility] 67[address] (BEAKER) (test code = [place], 1538) [address]: Respiratory Supervisor/Techni edwige ID = [id number] for Karol sewell (contract), Colleen xis POCT-GLUCOSE [id number] 02:21:17 Test Item Value Reference Range Interpretation Comments POC-GLUCOSE METER 170 mg/dL 70-110 H : [facility]) (test code = [facility], 1538) [address]: Respiratory Supervisor/Techni edwige ID = [id number] for Sp tasia (contract), Sandi a POCT-GLUCOSE [id number] 00:34:09 Test Item Value Reference Range Interpretation Comments POC-GLUCOSE METER 208 mg/dL 70-110 H : [facility] ([facility]ER[facility] (test code = [facility], 1538) [address]: Respiratory Supervisor/Techni edwige ID = [id number] for Karol sewell (contract), Colleen xis POCT-GLUCOSE [id number] 17:59:46 Test Item Value Reference Range Interpretation Comments POC-GLUCOSE METER 236 mg/dL 70-110 H : Notified RN/MD: ([facility]) (test code = TESTED AT [facility] 6720 1538) [facility], [address]: Respiratory Supervisor/Techni edwige ID = [id number] for MITCHELL YES, CLAUS HEMOGLOBIN AND [id number] 17:53:09 Test Item Value Reference Range Interpretation Comments HEMOGLOBIN ([facility]) (test code = 7.7 GM/DL 13.7-17.5 L 410) HEMATOCRIT ([facility]) (test code = 23.8 % 40.1-51.0 L 411) Respiratory Supervisor ID - [id number] C PCR, [id number] 15:46:48 Test Item Value Reference Range Interpretation Comments HCV RESULT COMPONENT HCV RNA not detected HCV RNA not detected ([facility]) (test code = 2699) This test uses a Real-Time Polymerase Chain Reaction (RT-PCR) methodology and was performed using YOU Ampliprep/YOU TaqMan HCV test kit version 2.0 ([employer]).Reportable range for this assay is 15 - 100,000,000 IU per mL (1.18 - 8.00 Log IU/mL).2D Echo W/Doppler(CW/PW/Color)2022-06-29 14:39:50 Ejection FractionSLEH ECHO HEARTLAB MKCKESSON [facility] Echo W/Doppler(CW/PW/Color)2022-06-29 14:39:50Ejection FractionSLEH ECHO [facility] W/Doppler(CW/PW/Color)2022-06-29 14:39:50Ejection FractionSLEH ECHO [facility] W/Doppler(CW/PW/Color) 2022-06-29 14:39:50Ejection FractionSLEH ECHO [facility] W/Doppler(CW/PW/Color)2022-06-29 14:39:50Ejection FractionSLEH ECHO [facility] W/Doppler(CW/PW/Color)2022-06-29 14:39:50Ejection FractionSLEH ECHO HEARTLAB [facility] W/Doppler(CW/PW/Color) 2022-06-29 14:39:50Ejection FractionSLEH ECHO [facility]LAB [facility] W/Doppler(CW/PW/Color)2022-06-29 14:39:50Ejection FractionSLEH ECHO [facility]LAB [facility] W/Doppler(CW/PW/Color)2022-06-29 14:39:50Ejection FractionSLEH ECHO [facility]LAB [facility] W/Doppler(CW/PW/Color) 2022-06-29 14:39:50Ejection FractionSLEH ECHO [facility]LAB [facility] W/Doppler(CW/PW/Color)2022-06-29 14:39:50Ejection FractionSLEH ECHO [facility] W/Doppler(CW/PW/Color)2022-06-29 14:39:50Ejection FractionSLE ECHO [facility]ARTLAB [facility] [id number] 13:21:00 Test Item Value Reference Range Interpretation Comments CROSSMATCH (test code = 2264) COMPATIBLE Unit ABO (test code = A Neg 7897844) UNIT NUMBER (test code = [id number] 934-0) Status (test code = 9116073) READY Blood Bank Product (test code RED BLOOD CELLS = 2263) PRODUCT CODE (test code = [id number] 933-2) [facility] [id number] 13:21:00 Test Item Value Reference Range Interpretation Comments CROSSMATCH (test code = 2264) COMPATIBLE Unit ABO (test code = A Neg 5458100) UNIT NUMBER (test code = [id number] 934-0) Status (test code = 6207795) READY Blood Bank Product (test code RED BLOOD CELLS = 2263) PRODUCT CODE (test code = [id number] 933-2) [facility]uk[facility]Red [id number] 13:21:00 Test Item Value Reference Range Interpretation Comments CROSSMATCH (test code = 2264) COMPATIBLE Unit ABO (test code = A Neg 3678265) UNIT NUMBER (test code = [id number] 934-0) Status (test code = 2168139) READY Blood Bank Product (test code RED BLOOD CELLS = 2263) PRODUCT CODE (test code = G0240V53 933-2) [facility] [id number] 13:21:00 Test Item Value Reference Range Interpretation Comments CROSSMATCH (test code = 2264) COMPATIBLE Unit ABO (test code = A Neg [id number]) UNIT NUMBER (test code = [id number] 934-0) Status (test code = 8746601) READY Blood Bank Product (test code RED BLOOD CELLS = 2263) PRODUCT CODE (test code = Q8752D39 933-2) [facility] [id number] 13:21:00 Test Item Value Reference Range Interpretation Comments CROSSMATCH (test code = 2264) COMPATIBLE Unit ABO (test code = A Neg 6077402) UNIT NUMBER (test code = [id number] 934-0) Status (test code = 8824654) READY Blood Bank Product (test code RED BLOOD CELLS = 2263) PRODUCT CODE (test code = B4162M10 933-2) [facility] [id number] 13:21:00 Test Item Value Reference Range Interpretation Comments CROSSMATCH (test code = 2264) COMPATIBLE Unit ABO (test code = A Neg 6266612) UNIT NUMBER (test code = [id number] 934-0) Status (test code = 4081385) READY Blood Bank Product (test code RED BLOOD CELLS = 2263) PRODUCT CODE (test code = R9894O51 933-2) [facility] [id number] 13:21:00 Test Item Value Reference Range Interpretation Comments CROSSMATCH (test code = 2264) COMPATIBLE Unit ABO (test code = A Neg 3013812) UNIT NUMBER (test code = [id number] 934-0) Status (test code = 9754835) READY Blood Bank Product (test code RED BLOOD CELLS = 2263) PRODUCT CODE (test code = I2600V10 933-2) [facility] [id number] 13:21:00 Test Item Value Reference Range Interpretation Comments CROSSMATCH (test code = 2264) COMPATIBLE Unit ABO (test code = A Neg 1816722) UNIT NUMBER (test code = [id number] 934-0) Status (test code = 7160938) READY Blood Bank Product (test code RED BLOOD CELLS = 2263) PRODUCT CODE (test code = D5027A10 933-2) [facility] [id number] 13:21:00 Test Item Value Reference Range Interpretation Comments CROSSMATCH (test code = 2264) COMPATIBLE Unit ABO (test code = A Neg 2272298) UNIT NUMBER (test code = [id number] 934-0) Status (test code = 0498877) READY Blood Bank Product (test code RED BLOOD CELLS = 2263) PRODUCT CODE (test code = P9431Z01 933-2) [facility] [id number] 13:21:00 Test Item Value Reference Range Interpretation Comments CROSSMATCH (test code = 2264) COMPATIBLE Unit ABO (test code = A Neg 6628454) UNIT NUMBER (test code = [id number] 934-0) Status (test code = 0302408) READY Blood Bank Product (test code RED BLOOD CELLS = 2263) PRODUCT CODE (test code = G7350H62 933-2) [facility] [id number] 13:21:00 Test Item Value Reference Range Interpretation Comments CROSSMATCH (test code = 2264) COMPATIBLE Unit ABO (test code = A Neg 9746050) UNIT NUMBER (test code = [id number] 934-0) Status (test code = 9943327) READY Blood Bank Product (test code RED BLOOD CELLS = 2263) PRODUCT CODE (test code = D3112F27 933-2) [facility] [id number] 13:21:00 Test Item Value Reference Range Interpretation Comments CROSSMATCH (test code = 2264) COMPATIBLE Unit ABO (test code = A Neg 7406832) UNIT NUMBER (test code = [id number] 934-0) Status (test code = 1644066) READY Blood Bank Product (test code RED BLOOD CELLS = 2263) PRODUCT CODE (test code = L5270G43 933-2) [facility] [id number] 12:30:58 Test Item Value Reference Range Interpretation Comments POC-GLUCOSE METER 299 mg/dL 70-110 H : Notified RN/MD: (JAQUIAKER) (test code = TESTED AT [facility] 9428 7800) [facility], [address]: Respiratory Supervisor/Techni edwige ID = [id number] for MITCHELL YES, CLAUS CBC W/PLT COUNT & AUTO [id number] 10:56:05 Test Item Value Reference Range Interpretation [...] PERCENT (BEAKER) (test code = 2801) POCT-GLUCOSE [id number] 06:41:24 Test Item Value Reference Range Interpretation Comments POC-GLUCOSE METER 186 mg/dL 70-110 H : TESTED A [facility] 6720 (BEAKER) (test code = [place], 1538) [address]: Respiratory Supervisor/Techni edwige ID = [id number] for Karol sewell (contract)Colelen CBC (HEMOGRAM ONLY)2022-06-29 05:55:27 Test Item Value [...] WBC 0-0 (test code = 413) CALCIUM, [id number] 05:41:59 Test Item Value Reference Range Interpretation Comments CALCIUM IONIZED (BEAKER) (test 1.16 mmol/L 1.12-1.27 code = 698) PH, BLOOD (BEAKER) (test code = 7.34 1810) [id number] 05:30:10 Test Item Value Reference Range Interpretation Comments MAGNESIUM (BEAKER) (test code = 1.8 mg/dL 1.6-2.6 627) Respiratory Supervisor ID - CHRISTIANA MCOMPREHENSIVE METABOLIC [id number] 05:30:09 Test Item Value Reference Range Interpretation [...] not appl icable for dialysis patien ts Respiratory Supervisor ID - CHRISTIANA [id number] 05:03:31 Test Item Value Reference Range Interpretation Comments PARTIAL THROMBOPLASTIN TIME 33.4 seconds 22.5-36.0 (BEAKER) (test code = 760) PROTHROMBIN TIME/[id number] 05:02:32 Test Item Value Reference Range Interpretation Comments PROTIME (BEAKER) 15.7 seconds 11.9-14.2 H (test code = 759) INR (BEAKER) (test 1.28 See_Comment [Automat ed message] code = 370) The system Comunit[employer] generated this result transmitted ref erence range: <=5.90. The reference range was not used to int erpret this result as normal/abnormal . RECOMMENDED COUMADIN/WARFARIN INR THERAPY RANGESSTANDARD DOSE: 2.0 - 3.0 Includes: PROPHYLAXIS for venous thrombosis, systemic embolization; TREATMENT for venous thrombosis and/or pulmonary embolus.HIGH RISK: Target INR is 2.5-3.5 for patients with mechanical heart valves.POCT-GLUCOSE [id number] 22:37:17 Test Item Value Reference Range Interpretation Comments POC-GLUCOSE METER 142 mg/dL 70-110 H : TESTED A T [facility] 6720 (BEAKER) (test code = [facility], 1538) [address]: Respiratory Supervisor/Techni edwige ID = [id number] for Karol sewell (contract)Colleen POCT-GLUCOSE [id number] 16:13:39 Test Item Value Reference Range Interpretation Comments POC-GLUCOSE METER 188 mg/dL 70-110 H : TESTED A T [facility] 6720 (BEAKER) (test code = [facility], 1538) [address]: Respiratory Supervisor/Techni edwige ID = [id number] for Ina Meredith ANTI-NUCLEAR ANTIBODY (BEATA)2022-06-28 14:16:56 Test Item Value Reference Range Interpretation Comments ANTI-NUCLEAR ANTIBODY (BEATA) (BEAKER) Negative Negative (test code = 418) Test performed by IFA method.Test performed by IFA method.U/S, ABDOMINAL, [id number] 13:44:00Reason for exam:->[facility]rh[facility] : 1965 Sex: MFINALREPORT TECHNIQUE: Grayscale ultrasound [...] MDReport Verified Date/Time: 06/28/2022 13:44:08 HEMOGLOBIN AND [id number] 11:24:21 Test Item Value Reference Range Interpretation Comments HEMOGLOBIN (BEAKER) (test code = 7.8 GM/DL 13.7-17.5 L 410) HEMATOCRIT (BEAKER) (test code = 23.4 % 40.1-51.0 L 411) Respiratory Supervisor ID - [id number] ID - 6000POCT-GLUCOSE [id number] 10:48:53 Test Item Value Reference Range Interpretation Comments POC-GLUCOSE METER 132 mg/dL 70-110 H : TESTED A T [facility] 6720 (BEAKER) (test code = [place], 1538) [address]: Respiratory Supervisor/Techni edwige ID = [id number] for Jaylen frost Chelsi POCT-GLUCOSE [id number] 09:02:39 Test Item Value Reference Range Interpretation Comments POC-GLUCOSE METER 147 mg/dL 70-110 H : TESTED A T [facility] 6720 (BEAKER) (test code = [place], 1538) [address]: Respiratory Supervisor/Techni edwige ID = [id number] for Chelsi Joseph COMPREHENSIVE METABOLIC [id number] 06:41:05 Test Item Value Reference Range Interpretation [...] not appl icable for dialysis patien ts Respiratory Supervisor ID - CHRISTIANA [id number] 06:41:05 Test Item Value Reference Range Interpretation Comments MAGNESIUM (BEAKER) (test code = 1.8 mg/dL 1.6-2.6 627) Respiratory Supervisor ID - CHRISTIANA MCBC (HEMOGRAM ONLY)2022-06-28 06:37:04 [...] WBC 0-0 (BEAKER) (test code = 413) [id number] 06:14:47 Test Item Value Reference Range Interpretation Comments PARTIAL THROMBOPLASTIN TIME 29.0 seconds 22.5-36.0 (BEAKER) (test code = 760) PROTHROMBIN TIME/[id number] 06:14:11 Test Item Value Reference Range Interpretation Comments PROTIME (BEAKER) 15.3 seconds 11.9-14.2 H (test code = 759) INR (BEAKER) (test 1.23 See_Comment [Automat ed message] code = 370) The system whic h generated this result transmitted ref erence range: <=5.90. The reference range was not used to int erpret this result as normal/abnormal . RECOMMENDED COUMADIN/WARFARIN INR THERAPY RANGESSTANDARD DOSE: 2.0 - 3.0 Includes: PROPHYLAXIS for venous thrombosis, systemic embolization; TREATMENT for venous thrombosis and/or pulmonary embolus.HIGH RISK: Target INR is 2.5-3.5 for patients with mechanical heart valves.POCT-GLUCOSE [id number] 23:04:59 Test Item Value Reference Range Interpretation Comments POC-GLUCOSE METER 181 mg/dL 70-110 H : TESTED A T [facility] 6720 (BEAKER) (test code = [place], 1538) [address]: Respiratory Supervisor/Techni edwige ID = [id number] for Meche Yousif [id number] 20:46:29 Test Item Value Reference Range Interpretation Comments FERRITIN (BEAKER) (test code = 59.05 ng/mL 5.00-275.00 361) Respiratory Supervisor ID - ADMINHEPATITIS B CORE ANTIBODY, [id number] 20:12:45 Test Item Value Reference Range Interpretation Comments HEPATITIS B CORE TOTAL ANTIBODY Reactive Nonreactive A (BEAKER) (test code = 497) Respiratory Supervisor ID - SEBAS LHEPATITIS B SURFACE [id number] 20:12:39 Test Item Value Reference Range Interpretation Comments HEPATITIS B SURFACE ANTIBODY 4789.9 mIU/mL <8.0 H (BEAKER) (test code = 647) Respiratory Supervisor ID - SEBAS LOperator ID - SEBAS LHEMOGLOBIN AND [id number] 20:10:40 Test Item Value Reference Range Interpretation Comments HEMOGLOBIN (BEAKER) (test code = 8.0 GM/DL 13.7-17.5 L 410) HEMATOCRIT (BEAKER) (test code = 24.7 % 40.1-51.0 L 411) Respiratory Supervisor ID - 6000Operator ID - [id number] B SURFACE [id number] 19:51:43 Test Item Value Reference Range Interpretation Comments HEPATITIS B SURFACE ANTIGEN (2) Nonreactive Nonreactive (BEAKER) (test code = 2585) Specimen is considered negative for HBsAg.HEPATITIS C [id number] 19:51:43 Test Item Value Reference Range Interpretation Comments HEPATITIS C ANTIBODY (BEAKER) Nonreactive Nonreactive (test code = 367) Respiratory Supervisor ID - SEBAS LALPHA FETOPROTEIN (AFP), TUMOR [id number] 19:46:42 Test Item Value Reference Range Interpretation Comments ALPHA-FETOPROTEIN (BEAKER) (test code < ng/mL <10.0 = 1094) Respiratory Supervisor ID Lis MULLEN LHEPATITIS A ANTIBODY, [id number] 19:20:02 Test Item Value Reference Range Interpretation Comments HEPATITIS A IGG ANTIBODY (BEAKER) Nonreactive Nonreactive (test code = 2797) Respiratory Supervisor ID - SEBAS LHEPATITIS A ANTIBODY, [id number] 19:19:56 Test Item Value Reference Range Interpretation Comments HEPATITIS A IGM ANTIBODY (BEAKER) Nonreactive Nonreactive (test code = 498) Respiratory Supervisor ID - SEBAS VOGLWH-3-[id number] 18:54:12 Test Item Value Reference Range Interpretation Comments ALPHA-1 ANTITRYPSIN 144.40 mg/dL 90.00-200.00 Specimen slightly (BEAKER) (test code = hemoly zed 502) Respiratory Supervisor ID - SEBAS LIZETH, TIBC, % SAT. (WITHOUT FERRITIN)2022-06-27 18:53:30 Test Item Value Reference Range Interpretation Comments IRON (BEAKER) (test code = 547) 34.0 ug/dL 40.0-160.0 L TOTAL IRON BINDING CAPACITY 299 ug/dL 250-450 (BEAKER) (test code = 769) IRON % SATURATION (2) (BEAKER) 11 % 20-55 L (test code = 2590) Respiratory Supervisor ID Lis MULLEN LPOCT-GLUCOSE [id number] 16:30:50 Test Item Value Reference Range Interpretation Comments POC-GLUCOSE METER 199 mg/dL 70-110 H : TESTED A T [facility] 6720 (BEAKER) (test code = [facility], 1538) [address]: Respiratory Supervisor/Techni edwige ID = [id number] for Jaylen davisdelonhCelsi POCT-GLUCOSE [id number] 12:00:48 Test Item Value Reference Range Interpretation Comments POC-GLUCOSE METER 182 mg/dL 70-110 H : TESTED A T [facility] 6720 (BEAKER) (test code = [facility], 1538) [address]: Respiratory Supervisor/Techni edwige ID = [id number] for Nico Lakhani [id number] 11:47:33 Test Item Value Reference Range Interpretation Comments FIBRINOGEN LEVEL (BEAKER) (test 283 mg/dl 225-434 code = 658) HEMOGLOBIN AND [id number] 11:43:51 Test Item Value Reference Range Interpretation Comments HEMOGLOBIN (BEAKER) (test code = 9.5 GM/DL 13.7-17.5 L 410) HEMATOCRIT (BEAKER) (test code = 28.8 % 40.1-51.0 L 411) Respiratory Supervisor ID - 6000POCT-GLUCOSE [id number] 06:17:14 Test Item Value Reference Range Interpretation Comments POC-GLUCOSE METER 207 mg/dL 70-110 H : TESTED A T [facility] 6720 (BEAKER) (test code = [place], 1538) [address]: Respiratory Supervisor/Techni edwige ID = [id number] for MARIE VARGHESE COMPREHENSIVE METABOLIC [id number] 03:37:28 Test Item Value Reference Range Interpretation [...] eGFR (test code = 1092) mL/min/1.73 values S tage Description sq m Result G1 [place] l [...] not appl icable for dialysis patien ts Respiratory Supervisor ID - CHRISTIANA [id number] 03:37:28 Test Item Value Reference Range Interpretation Comments MAGNESIUM (BEAKER) (test code = 1.7 mg/dL 1.6-2.6 627) Respiratory Supervisor ID - CHRISTIANA [id number] 03:27:04 Test Item Value Reference Range Interpretation Comments PARTIAL THROMBOPLASTIN TIME 29.6 seconds 22.5-36.0 (BEAKER) (test code = 760) PROTHROMBIN TIME/[id number] 03:26:26 Test Item Value Reference Range Interpretation Comments PROTIME (BEAKER) 16.5 seconds 11.9-14.2 H (test code = 759) INR (BEAKER) (test 1.42 See_Comment [Automat ed message] code = 370) The system Comunitae generated this result transmitted ref erence range: [...] (BEAKER) (test code = 413) HEMOGLOBIN AND [id number] 00:12:37 Test Item Value Reference Range Interpretation Comments HEMOGLOBIN (BEAKER) (test code = 9.6 GM/DL 13.7-17.5 L 410) HEMATOCRIT (BEAKER) (test code = 30.0 % 40.1-51.0 L 411) Respiratory Supervisor ID - 6000POCT-GLUCOSE [id number] 00:10:44 Test Item Value Reference Range Interpretation Comments POC-GLUCOSE METER 222 mg/dL 70-110 H : TESTED A T [facility] 6720 (BEAKER) (test code = [facility] [place] [facility], 1538) [address]: Respiratory Supervisor/Techni edwige ID = [id number] for MARIE VARGHESE HIGH SENSITIVITY TROPONIN [id number] 20:06:54 Test Item Value Reference Range Interpretation Comments HIGH SENSITIVITY 33 pg/ml See_Comment [Automated message] TROPONIN I (test code = The system which [id number]) generated this result transmitted ref erence range: <=35. Th e reference range was not used to int erpret this result as normal/abnormal . Respiratory Supervisor ID - PIAYA LThe THERMOFORMING OPERATOR STAT High Sensitivity Troponin-I results should be used in conjunction with other diagnostic information such as ECG, clinical observations and information, and patient symptoms to aid in the diagnosis of [place].[id number] 20:01:17 Test Item Value Reference Range Interpretation Comments LIPASE (BEAKER) (test code = 749) 19 U/L 8-78 Respiratory Supervisor ID - SEBAS LCREATINE KINASE (CK)2022-06-26 20:01:17 Test Item Value Reference Range Interpretation Comments CREATINE KINASE TOTAL (BEAKER) (test 36 U/L 29-200 code = 380) Respiratory Supervisor ID - PIVALENTINE LCOMPREHENSIVE METABOLIC [id number] 20:01:16 Test Item Value Reference Range Interpretation [...] not appl icable for dialysis patien ts Respiratory Supervisor ID - SEBAS [id number] 19:58:16 Test Item Value Reference Range Interpretation Comments ETHANOL (BEAKER) < mg/dL See_Comment [Automated message] The (test code = 400) system [employer] ch generated this result tra nsmitted reference range : <=10. The reference r keegan was not used to int erpret this result as normal/abnormal . Respiratory Supervisor ID - SEBAS [id number] 19:42:35 Test Item Value Reference Range Interpretation Comments PARTIAL THROMBOPLASTIN TIME 28.6 seconds 22.5-36.0 (BEAKER) (test code = 760) PROTHROMBIN TIME/[id number] 19:41:53 Test Item Value Reference Range Interpretation Comments PROTIME (BEAKER) 16.0 seconds 11.9-14.2 H (test code = 759) INR (BEAKER) (test 1.36 See_Comment [Automat ed message] code = 370) The system [employer] h generated this result transmitted ref erence range: <=5.90. The reference range was not used to int erpret this result as normal/abnormal . RECOMMENDED COUMADIN/WARFARIN INR THERAPY RANGESSTANDARD DOSE: 2.0 - 3.0 Includes: PROPHYLAXIS for venous thrombosis, systemic embolization; TREATMENT for venous thrombosis and/or pulmonary embolus.HIGH RISK: Target INR is 2.5-3.5 for patients with mechanical heart valves.CBC W/PLT COUNT & AUTO [id number] 19:26:51 Test Item Value Reference Range Interpretation [...] (BEAKER) (test code = 2801) HEMOGLOBIN AND [id number] 18:55:46 Test Item Value Reference Range Interpretation Comments HEMOGLOBIN (BEAKER) (test code = 9.8 GM/DL 13.7-17.5 L 410) HEMATOCRIT (BEAKER) (test code = 29.7 % 40.1-51.0 L 411) Respiratory Supervisor ID - [id number]
[2023-02-22] MEDS ORDERED: DIPHENHYDRAMINE 25 MG TAB/CAP ONE (21:02)
[2023-02-22] MEDS ORDERED: TAMSULOSIN 0.4 MG SR CAP ONE (21:02)
[2023-02-22 21:22] LABS: Urine Bacteria None Seen /HPF (<20); Urine Bilirubin NEGATIVE (Negative); Urine Blood Negative (Negative); Urine Clarity Clear (Clear); Urine Color Light-Yellow (Yellow); Urine Glucose NEGATIVE (Negative); Urine Protein NEGATIVE (Negative); Urine RBC None Seen /HPF (None Seen); Urine Urobilinogen Normal (Normal); Urine pH 5.5 (5.0-7.0)
--- NOTE | 2023-02-22 21:39 | ER ---
Nurse's Notes [facility] Name: Eitan Gonzalez Age: 57 yrs Sex: Male : 1965 Arrival Date: 02/22/2023 Time: 19:32 Bed 16 Private MD: Diagnosis: Acute urinary retention, acute urinary retention secondary to opiate/antihistamine Presentation: 02/22 19:56 Chief complaint: Patient states: had a "pain pump test" today at 0900 and last time vg1 urinated was at 1130 today. Stated lower ABD pain with nausea. Coronavirus screen: Vaccine status: Patient reports being unvaccinated. Client denies travel out of the [place] in the last 14 days. Ebola Screen: Patient negative for fever greater than or equal to 101.5 degrees Fahrenheit, and additional compatible Ebola Virus Disease symptoms Patient denies exposure to infectious person. Patient denies travel to an Ebola-affected area in the 21 days before illness onset. Onset: The symptoms/episode began/occurred today. Anaphylaxis evaluation, no signs or symptoms of anaphylaxis were noted. Initial Sepsis Screen: Does the patient meet any 2 criteria? No. Patient's initial sepsis screen is negative. Does the patient have a suspected source of infection? No. Patient's initial sepsis screen is negative. Risk Assessment: Do you want to hurt yourself or someone else? Patient reports no desire to harm self or others. Onset of symptoms was February 22, 2023. 19:56 Method Of Arrival: Ambulatory vg1 19:56 Acuity: NALINI 3 vg1 Triage Assessment: 19:59 General: Appears uncomfortable, Behavior is cooperative. Pain: Complains of pain in vg1 pelvis Pain currently is 5 out of 10 on a pain scale. : Reports inability to void, since 1130 today. Historical: - Allergies: 19:59 Mounjaro; vg1 19:59 Trulicity; vg1 - PMHx: 19:59 Alcoholism; cirrhosis of liver; diabetes mellitus; enlarged spleen; gastroporesis; vg1 Hypertensive disorder; Pancreatitis; - PSHx: 19:59 Variceal Banding; vg1 - Immunization history:: Client reports having NOT received the Covid vaccine. - Social history:: Smoking status: Patient denies any tobacco usage or history of. - Family history:: not pertinent. Screenin:[facility] Fall Risk Assessment (Adult) History of falling in the last 3 months, kl including since admission No falls in past 3 months (0 pts) Confusion or Disorientation No (0 pts) Intoxicated or Sedated No (0 pts) Impaired Gait No (0 pts) Mobility Assist Device Used No (0 pt) Altered Elimination No (0 pt) Score/Fall Risk Level 0 - 2 = Low Risk Oriented to surroundings, Maintained a safe environment. Abuse screen: Denies threats or abuse. Nutritional screening: No deficits noted. Tuberculosis screening: No symptoms or risk factors identified. Assessment: 21:07 Reassessment: Patient appears in no apparent distress at this time. Patient is alert, kl oriented x 3, equal unlabored respirations, skin warm/dry/pink. Patient states feeling better. Patient states symptoms have improved. Respiratory: Airway is patent Respiratory effort is even, unlabored, Breath sounds are clear bilaterally. Vital Signs: 19:56 BP 114 / 73; Pulse 75; Resp 16; Temp 98.3(O); Pulse Ox 96% on R/A; Weight 99.79 kg; vg1 Height 6 ft. 0 in. ; Pain 5/10; 21:08 Pulse 78; Resp 18; Pulse Ox 97% ; kl 22:05 BP 137 / 85; Pulse 72; Pulse Ox 97% on R/A; kl 19:56 Body Mass Index 29.84 (99.79 kg, 182.88 cm) vg1 19:56 Pain Scale: Adult vg1 ED Course: 19:36 Patient arrived in ED. ja2 19:59 Triage completed. vg1 19:59 Arm band placed on. vg1 20:04 Pascual Mcgill MD is Attending Physician. sp4 21:38 Jean Carlos Yousif MD is Referral Physician. sp4 22:05 No provider procedures requiring assistance completed. Veras cath inserted, using sterile technique, 16 Fr., returned leg bag applied. Patient did not have IV access during this emergency room visit. 22:06 Patient has correct armband on for positive identification. Placed in gown. Administered Medications: 21:04 Drug: Flomax PO 0.4 mg Route: PO; kl 21:05 Drug: diphenhydrAMINE PO 50 mg Route: PO; Outcome: 21:39 Discharge ordered by . sp4 22:05 Discharged to home ambulatory. kl 22:05 Condition: improved 22:05 Discharge instructions given to patient, Instructed on discharge instructions, follow up and referral plans. medication usage, Demonstrated understanding of instructions, follow-up care, medications, Prescriptions given X 1. 22:06 Patient left the ED. Signatures: Ana Rosa Rodríguez RN RN kl Garcia, Victoria, RN RN vg1 Ana Najera Sergey, MD MD sp4
--- NOTE | 2023-02-22 21:39 | EDPHYS ---
Physician Documentation [facility] Name: Eitan Gonzalez Age: 57 yrs Sex: Male : 1965 Arrival Date: 02/22/2023 Time: 19:32 Bed 16 Private MD: ED Physician Pascual Mcgill HPI: 02/22 20:04 This 57 yrs old Other Male presents to ER via Ambulatory with complaints of Urinary sp4 Retention, Itching, Nausea. 20:23 7-year-old male presents with inability to urinate since 1130 this morning. . 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 States sp4 that he was able to urinate after procedure but when he went home he was not able to urinate since 1130 this morning and he is experiencing urinary bladder pain. . Historical: - Allergies: 19:59 Mounjaro; vg1 19:59 Trulicity; vg1 - PMHx: 19:59 Alcoholism; cirrhosis of liver; diabetes mellitus; enlarged spleen; gastroporesis; vg1 Hypertensive disorder; Pancreatitis; - PSHx: 19:59 Variceal Banding; vg1 - Immunization history:: Client reports having NOT received the Covid vaccine. - Social history:: Smoking status: Patient denies any tobacco usage or history of. - Family history:: not pertinent. ROS: 20:27 Constitutional: Negative for fever, chills, and weight loss, Eyes: Negative for injury, sp4 pain, redness, and discharge, ENT: Negative for injury, pain, and discharge, Neck: Negative for injury, pain, and swelling, Cardiovascular: Negative for chest pain, palpitations, and edema, Respiratory: Negative for shortness of breath, cough, wheezing, and pleuritic chest pain, Abdomen/GI: Negative for abdominal pain, nausea, vomiting, diarrhea, and constipation, Back: Negative for injury and pain, : Negative for injury, bleeding, discharge, and swelling, Positive for pain and urinary retention MS/Extremity: Negative for injury and deformity, Skin: Negative for injury, rash, and discoloration, Neuro: Negative for headache, weakness, numbness, tingling, and seizure, Psych: Negative for depression, anxiety, Allergy/Immunology: Negative for hives, rash, and allergies Endocrine: Negative for neck swelling, polydipsia, polyuria, polyphagia, and weight changes Hematologic/Lymphatic: Negative for swollen nodes, abnormal bleeding, and unusual bruising Exam: 20:27 Constitutional: This is a well developed, well nourished patient who is awake, alert, sp4 and in no acute distress. Head/Face: Normocephalic, atraumatic. Eyes: Pupils equal round and reactive to light, extra-ocular motions intact. Lids and lashes normal. Conjunctiva and sclera are not injected. Cornea within normal limits. Periorbital areas with no swelling, redness, or edema. ENT: Nares patent. No nasal discharge, no septal abnormalities noted. Tympanic membranes are normal and external auditory canals are clear. Oropharynx with no redness, swelling, or masses, exudates, or evidence of obstruction, uvula midline. Mucous membranes moist. Neck: Trachea midline, no thyromegaly or masses palpated, and no cervical lymphadenopathy. Supple, full range of motion without nuchal rigidity, or vertebral point tenderness. No Meningismus. Chest/axilla: Normal chest wall appearance and motion. Nontender with no deformity. No lesions are appreciated. Cardiovascular: Regular rate and rhythm with a normal S1 and S2. No gallops, murmurs, or rubs. Normal PMI, no JVD. No pulse deficits. Respiratory: Lungs have equal breath sounds bilaterally, clear to auscultation and percussion. No rales, rhonchi or wheezes noted. No increased work of breathing, no retractions or nasal flaring. Abdomen/GI: Soft, non-tender, with normal bowel sounds. No distension or tympany. No guarding or rebound. No evidence of tenderness throughout. Back: No spinal tenderness. No costovertebral tenderness. Skin: Warm, dry with normal turgor. Normal color with no rashes, no lesions, and no evidence of cellulitis. MS/ Extremity: Pulses equal, no cyanosis. Neurovascular intact. Full, normal range of motion. Neuro: Awake and alert, GCS 15, oriented to person, place, time, and situation. Cranial nerves II-XII grossly intact. Motor strength 5/5 in all extremities. Sensory grossly intact. Psych: Awake, alert, with orientation to person, place and time. Behavior, mood, and affect are within normal limits 20:57 Male : Normal genitalia with no discharge or lesions. Circumcised male , Otherwise sp4 distended bladder Vital Signs: 19:56 BP 114 / 73; Pulse 75; Resp 16; Temp 98.3(O); Pulse Ox 96% on R/A; Weight 99.79 kg; vg1 Height 6 ft. 0 in. ; Pain 5/10; 21:08 Pulse 78; Resp 18; Pulse Ox 97% ; kl 22:05 BP 137 / 85; Pulse 72; Pulse Ox 97% on R/A; kl 19:56 Body Mass Index 29.84 (99.79 kg, 182.88 cm) vg1 19:56 Pain Scale: Adult vg1 MDM: 20:23 Patient medically screened. sp4 21:37 Differential diagnosis: Acute urinary retention after morphine/Benadryl. Data reviewed: sp4 vital signs, nurses notes, lab test result(s), urinalysis, Normal UA. ED course: Urinary catheter was placed and 1.3 L of urine was evacuated from the bladder. Will provide leg bag for the patient and discharged home with referral to Dr. Yousif with urology in 1 to 2 weeks for voiding trial in office. Will provide prescription for Flomax. 02/22 20:24 Order name: Urinalysis W/Microscopic; Complete Time: 21:26 sp4 02/22 20:24 Order name: Veras; Complete Time: 20:52 sp4 02/22 20:52 Order name: Leg Bag sp4 Administered Medications: 21:04 Drug: Flomax PO 0.4 mg Route: PO; kl 21:05 Drug: diphenhydrAMINE PO 50 mg Route: PO; kl Disposition Summary: 02/22/23 21:39 Discharge Ordered Location: Home sp4 Problem: new sp4 Symptoms: have improved sp4 Condition: Stable sp4 Diagnosis - Acute urinary retention, acute urinary retention secondary to opiate/antihistamine sp4 Followup: sp4 - With: Jean Carlos Yousif MD - When: 7 - 10 days - Reason: Recheck today's complaints Discharge Instructions: - Discharge Summary Sheet sp4 - Acute Urinary Retention, Male, [id number] sp4 Forms: - Thank You Letter sp4 Prescriptions: - Flomax 0.4 mg Oral capsule - take 1 capsule by ORAL route daily; 30 capsule; Refills: 0, Product Selection sp4 Permitted Signatures: Dispatcher [employer] EDMS Miladys Rodríguezberly, RN RN kl FroylanNeena RN RN vg1 Pascual Mcgill MD MD sp4
[2023-02-22 22:42] VITALS: TEMP 98.3
[2023-02-22 22:44] VITALS: O2SAT 97
[2023-02-22 22:46] VITALS: BP 137/85
== END 2023-02-22 22:06 | disposition home or self-care (01) ==
LOC: ER 19:32
DX: R33.0 Drug induced retention of urine (principal); F10.20 Alcohol dependence, uncomplicated; Z88.8 Allergy status to other drugs, medicaments and biological substances
CPT/HCPCS: 51702; 81001; 99284